=== PATIENT | male | born 1970 | race Caucasian/White ===

== ENCOUNTER 2019-08-19 10:57 | Outpatient (CLI) | payer OTHER, SELFPAY ==
--- NOTE | ~2019-08-19 | MR_ITS ---
EXAMINATION: MR cervical spine wo con EXAM DATE: 08/19/2019 12:19 INDICATION: Left arm pain, numbness, symptoms 3-4 months. Prostate cancer diagnosed 2019. Cervical pa in. TECHNIQUE: Multi-sequential, multiplanar MR images of the cervical spine were obtained without contra st. Axial T2, axial T2 MERGE sequence. Sagittal T1, T2, T2 fat saturation images also obtained. Com parison is made to prior examination from 03/31/2017. FINDINGS: There is moderate loss of the C3-4 disc height with 2-3 mm retrolisthesis, mild to moderat e disc disease C4-5 with 2 mm retrolisthesis. Otherwise mild cervical disc disease. The spinal cord s ignal intensity and intrinsic morphology is normal. Cervicomedullary junction is normal in appearance . There are no suspicious marrow signal abnormalities. Paraspinal soft tissue is unremarkable. Level by level evaluation: C2-C3: Disc does not extend beyond the endplate margin. Uncovertebral joint arthropathy: Mild bilateral. Facet joint arthropathy: Mild bilateral. Neural foraminal stenosis: Mild right. Central canal stenosis: No stenosis. C3-C4: There is a mild diffuse disc bulge. Uncovertebral joint arthropathy: Moderate right, mild to moderate left. Facet joint arthropathy: Moderate right, mild to moderate left. Neural foraminal stenosis: Moderate right, mild left. Central canal stenosis: Mild. C4-C5: There is a mild diffuse disc bulge. Uncovertebral joint arthropathy: Mild to moderate bilateral. Facet joint arthropathy: Mild to moderate bilateral. Neural foraminal stenosis: Moderate left, mild to moderate right. Central canal stenosis: Mild. C5-C6: There is a minimal diffuse disc bulge. Uncovertebral joint arthropathy: Mild bilateral. Facet joint arthropathy: Mild to moderate bilateral. Neural foraminal stenosis: Moderate left, mild to moderate right. Central canal stenosis: Minimal. C6-C7: There is a mild diffuse disc bulge. Uncovertebral joint arthropathy: Mild to moderate bilateral. Facet joint arthropathy: Mild to moderate bilateral. Neural foraminal stenosis: Mild to moderate bilateral. Central canal stenosis: Mild. C7-T1: Disc does not extend beyond the endplate margin. Uncovertebral joint arthropathy: Mild bilateral. Facet joint arthropathy: Mild bilateral. Neural foraminal stenosis: No stenosis. Central canal stenosis: No stenosis. IMPRESSION: 1. Mid cervical predominant spondylosis as detailed above. Reviewed, dictated and finalized at location A. [employer] REPA[employer]
== END 2019-08-19 10:58 | disposition home or self-care (01) ==
LOC: ANHIMG 11:03
PROVIDERS: Visit Provider Physician Assistant Surgical
DX: M47.892 Other spondylosis, cervical region (principal)
CPT/HCPCS: 72141

== ENCOUNTER 2019-11-09 15:43 | Emergency (ER) | payer OTHER, SELFPAY ==
--- NOTE | ~2019-11-09 | XR_ITS ---
EXAMINATION: XR ribs LT 2V w CXR 2V EXAM DATE: 11/09/2019 16:57 INDICATION: Initial encounter following injury, with pain of the left ribs. TECHNIQUE: Frontal projection of the upper left ribs, frontal projection of the lower left ribs, obli que projection of the left ribs, frontal and lateral chest x-ray(s) for interpretation. Correlation i s made to chest x-ray 09/05/2016. FINDINGS: There is acute appearing closed posttraumatic nondisplaced left 8th rib fracture identified anterolaterally. There is no soft tissue abnormality seen. No confluent consolidation, pneumothorax or pleural effusion suspected. There are cholecystectomy clips. Chronic mild to moderate lower thorac ic compression fractures. IMPRESSION: Acute left 8th rib fracture. Reviewed, dictated and finalized at location A.
[2019-11-09 16:05] VITALS: BP 147/104; PULSE 104; RESP 16; TEMP 36.8; O2SAT 100
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
== END 2019-11-09 17:20 | disposition home or self-care (01) ==
PROVIDERS: Emergency Provider Nurse Practitioner; PCP Emergency Medicine
DX: S22.32XA Fracture of one rib, left side, initial encounter for closed fracture (principal); I10 Essential (primary) hypertension; M19.90 Unspecified osteoarthritis, unspecified site; K21.9 Gastro-esophageal reflux disease without esophagitis; F17.200 Nicotine dependence, unspecified, uncomplicated; X58.XXXA Exposure to other specified factors, initial encounter
CPT/HCPCS: 71046; 71100; 99213; G0463

== ENCOUNTER 2019-11-18 16:24 | Emergency (ER) | payer OTHER, SELFPAY ==
[2019-11-18 16:38] VITALS: BP 158/100; PULSE 85; RESP 18; TEMP 37.1; O2SAT 100
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
== END 2019-11-18 17:00 | disposition home or self-care (01) ==
PROVIDERS: Emergency Provider Nurse Practitioner
DX: S22.32XA Fracture of one rib, left side, initial encounter for closed fracture (principal); I10 Essential (primary) hypertension; K21.9 Gastro-esophageal reflux disease without esophagitis; F17.290 Nicotine dependence, other tobacco product, uncomplicated; W51.XXXA Accidental striking against or bumped into by another person, initial encounter
CPT/HCPCS: 99212; G0463

== ENCOUNTER 2020-01-19 09:16 | Emergency (ER) | payer OTHER, SELFPAY ==
--- NOTE | 2020-01-19 09:24 | ED.GENADULT ---
HPI - General Adult General Chief complaint: Abdominal Pain Stated complaint: abd pain Time Seen by Provider: 01/19/20 09:37 Source: patient Mode of arrival: ambulatory Limitations: no limitations History of Present Illness HPI narrative: 50-year-old male patient presents to the [facility] with complaints of nausea vomiting diarrhea for the past 5 days. Patient states his symptoms started on Thursday with a little bit of diarrhea and then he developed a fever of 100.2 on Thursday. Patient states that the fever went away on Thursday and has not had any fever since then. Patient states he continues to have nausea, vomiting or diarrhea but denies any abdominal pain. 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 Patient states that he last vomited last night and has not eaten anything today but continues to have diarrhea. Denies any blood or black tarry stools to the diarrhea. Patient states he has had a gallbladder and appendix both removed. Related Data Allergies Allergy/AdvReac Type Severity Reaction Status Date / Time No Known Allergies Allergy Verified 01/19/20 09:37 Review of Systems Review of Systems: Narrative: CONSTITUTIONAL: Denies fever, chills, or sweats. EYES: Denies visual changes, redness, or discharge. ENT: Denies rhinorrhea, congestion, sore throat, or otalgia. CARDIOVASCULAR: Denies chest pain, palpitations, or edema. RESPIRATORY: Denies cough or dyspnea. GASTROINTESTINAL: Denies abdominal pain, positive nausea, vomiting, and diarrhea. GENITOURINARY: Denies dysuria or hematuria. SKIN: Denies rash or itching. MUSCULOSKELETAL: Denies back pain, joint pain, or myalgia. NEUROLOGIC: Denies headache, numbness, or weakness. PSYCHIATRIC: Denies anxiety or depression. [facility] Past Medical History Medical History Acid reflux Arthritis HTN (hypertension) Surgical History Surgical History History of appendectomy Hx of cholecystectomy Family History Family History Mother Family history of malignant neoplasm of breast in first degree relative Other Family history of malignant neoplasm Social History Social History Smoking status: Current every day smoker Second hand tobacco smoke exposure: Yes Alcohol intake: current Gender identity (if verbalized by the patient): Male Comments At the time of my signature I agree with nursing past medical history, surgical, social, and family history. There is no relevant family history pertinent to the presenting complaint. Exam Narrative: Exam Narrative: GENERAL: Well-appearing, well-nourished, and in no acute distress. HEAD: Normocephalic, atraumatic. EYES: PERRLA and EOMI. ENT: Nares clear, no rhinorrhea or epistaxis. Mucous membranes moist. NECK: Supple. No lymphadenopathy CHEST: Clear to auscultation. No respiratory distress. HEART: Regular rate and rhythm. No murmur heard. Normal peripheral pulses. ABDOMEN: Soft, flat, nondistended. No guarding, rebound tenderness, or rigid. No pulsatilla masses. Hyperactive bowel sounds present in all four quadrants. No organomegaly. Negative Aguilera?s sign. No periumbicial tenderness. No Supra public tenderness or distension. Good femoral pulses bilaterally. No hernia noted. No scars or surface trauma. EXTREMITIES: Normal range of motion. No edema. SKIN: Warm, dry, no rash. NEURO: No focal deficits. Alert and oriented x3. Course Vital Signs Vital signs: Vital Signs Temperature 36.9 C 01/19/20 09:27 Pulse Rate 92 01/19/20 09:27 Respiratory Rate 16 01/19/20 09:27 Blood Pressure 148/88 H 01/19/20 09:27 Pulse Oximetry 100 01/19/20 09:27 Temperature 36.9 C 01/19/20 09:27 Pulse Rate
[2020-01-19 09:27] VITALS: BP 148/88; PULSE 92; RESP 16; TEMP 36.9; O2SAT 100
--- NOTE | 2020-01-20 12:30 | PC.NURSE ---
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 said employer would not allow work note without having specific information in regard to covid guideline. regional business development manager was contacted at [facility] and stated to follow work note as written, no changes would be made at this time, if any questions to f/u with pmd. was given print out of [facility] hotline number to either call himself or to give employer.
== END 2020-01-19 09:51 | disposition home or self-care (01) ==
PROVIDERS: Emergency Provider Nurse Practitioner Family
DX: K52.9 Noninfective gastroenteritis and colitis, unspecified (principal); K21.9 Gastro-esophageal reflux disease without esophagitis; M19.90 Unspecified osteoarthritis, unspecified site; I10 Essential (primary) hypertension
CPT/HCPCS: 99213; G0463

== ENCOUNTER 2020-02-17 08:32 | Emergency (ER) | payer OTHER, SELFPAY ==
[2020-02-17] VITALS (14 sets, daily range): BP systolic 121–165; BP diastolic 92–109; PULSE 100; RESP 18; TEMP 36.7; O2SAT 97–100
--- NOTE | ~2020-02-17 | CT_ITS ---
EXAMINATION: CT abdomen pelvis w con DATE: 02/17/2020 11:04 INDICATION: Left lower quadrant abdominal pain. TECHNIQUE: Computed tomography (CT) of the abdomen and pelvis was performed with 100 mL Omnipaque 350 intravenous contrast. Automated exposure control and iterative reconstruction technique were employe d. The dose-length product was 568.64 mGy-cm. COMPARISON: CT abdomen and pelvis 03/07/2019 FINDINGS: The visualized portions of the lung bases demonstrate a calcified left lung nodules, consis tent with old granulomatous disease. No pleural effusion. The heart size is normal. There are coronar y artery calcifications. No pericardial effusion. The liver demonstrates surface nodularity, consiste nt with cirrhosis. There are changes of cholecystectomy. The spleen is normal in size. The pancreas, adrenal glands, and kidneys are normal. There are changes of appendectomy. There is wall thickening o f the ascending and proximal transverse colon. There is diverticulosis of the colon without evidence of diverticulitis. There is a small volume of ascites. There are no pathologically enlarged lymph nod es. There is mild lumbar spondylosis. There are chronic compression fractures of T10, T11, and T12. T here is moderate lumbar spondylosis. IMPRESSION: 1. Wall thickening of the ascending and proximal transverse colon, most likely interstitial edema. Co litis is less likely. 2. Cirrhosis of the liver. 3. Small volume of ascites. Reviewed, dictated and finalized at location A. IMPRESSION: 1. Wall thickening of the ascending and proximal transverse colon, most likely interstitial edema. Colitis is less likely. 2. Cirrhosis of the liver. 3. Small volume of ascites.
[2020-02-17 09:17] LABS: Alanine Aminotransferase 45 U/L (4-50); Albumin Level 3.7 g/dL (3.5-5.1); Alkaline Phosphatase 604 U/L (38-126); Anion Gap 7 mmol/L (8-16); Aspartate Amino Transferase 200 U/L (17-59); Bilirubin,Total 3.9 mg/dL (0.2-1.3); Blood Urea Nitrogen 13 mg/dL (9-20); Calcium 7.9 mg/dL (8.4-10.2); Carbon Dioxide 27 mmol/L (22-30); Chloride 98 mmol/L (98-107); Estimated CRCL calculation 92 ml/min; Estimated Glomerular Filt Rate > 60; Glucose 166 mg/dL (75-110); Lipase 122 U/L (23-300); Potassium 4.6 mmol/L (3.4-5.0); Sodium 132 mmol/L (137-145)
[2020-02-17 09:21] LABS: Add Urine Microscopic? YES; Appearance Urine Clear (Clear); Bilirubin Urine Negative (Negative); Blood Urine Negative (Negative); Calcium Oxalate Crystals Urine Present /hpf; Color Urine Yellow (Yellow); Glucose Urine UA 3+ mg/dL (Negative); Ketones Urine Negative (Negative); Leukocyte Esterase Ur Negative LEU/UL (Negative); Nitrate Urine Negative (Negative); Protein Urine Negative (Negative); RBC Urine 0-2 /hpf (0-2); Specific Grav Ur 1.014 (1.001-1.035); Urobilinogen Urine Negative mg/dL (<2.0); WBC Urine 0-3 /hpf
[2020-02-17 09:23] LABS: Basophils Percent Auto 0.5 % (0.2-1.2); Eosinophils Percent Auto 0.2 % (0-4.4); Hematocrit 44.5 % (42.0-52.0); Hemoglobin 15.7 g/dL (14.0-18.0); Immature Granulocyte Absolute 0.02 K/mm3 (0.00-0.031); Immature Granulocyte Percent A 0.5 % (0-0.5); Immature Platelet Fraction Pct 11.7 % (0.9-11.2); Lymphocytes Absolute Auto 1.06 K/mm3 (0.9-3.2); Lymphocytes Percent Auto 23.9 % (18.3-44.2); Mean Corpuscular HGB Conc 35.3 g/dl (32-36); Mean Corpuscular Hemoglobin 33.5 pg (26-34); Mean Corpuscular Volume 95.1 fl (80-100); Mean Platelet Volume 11.7 fl (7.4-10.4); Monocytes Absolute Auto 0.5 K/mm3 (0.1-0.6); Monocytes Percent Auto 10.4 % (2.6-8.5); Neutrophils Absolute Auto 2.9 K/mm3 (1.3-6.7); Neutrophils Percent Auto 64.5 % (45.5-73.1); Platelet Count Result 97 k/mm3 (150-375); Red Blood Count 4.68 M/mm3 (4.6-6.20); Red Cell Distribution Width 15.8 % (11.5-14.5); White Blood Count 4.4 K/mm3 (4.5-10.0)
--- NOTE | 2020-02-17 10:11 | PC.NURSE ---
Pt updated on delay of physician to evaluate, made aware of critical patient in the department.
--- NOTE | 2020-02-17 10:12 | PC.NURSE ---
Called to room, pt requesting something for pain and wondering how much longer it is going to be. Explained that a protocol has been initiated and that someone will be in [place].
[2020-02-17] MEDS: MORPHINE SULFATE 4 MG/ML INJ IV PUSH (10:47)
[2020-02-17] MEDS: SODIUM CHLORIDE 0.9% IV 1,000 ML 999 ML (10:48)
--- NOTE | 2020-02-17 11:53 | ED.ABDPAIN ---
HPI - Abdominal Pain General Chief Complaint: Abdominal Pain Stated Complaint: abd pain, rectal pain Time Seen by Provider: 02/17/20 09:56 History of Present Illness HPI narrative: Patient is a 50-year-old male who presents the ER with lower abdominal pain. Ongoing for 2 days. Cramping associated with diarrhea. Radiates into his left inguinal region and testicle. No testicular tenderness or swelling. Denies fevers or chills or sweats. Mild nausea but no vomiting. Related Data Home Medications Medication Instructions Recorded Confirmed omeprazole 02/17/20 Allergies Allergy/AdvReac Type Severity Reaction Status Date / Time No Known Allergies Allergy Verified 02/17/20 08:46 Review of Systems Review of Systems: All systems reviewed & are unremarkable except as noted in HPI and below Constitutional: Constitutional: Denies chills, Denies fever(s) and Denies weakness Cardiovascular: Cardiovascular: Denies chest pain Respiratory: Respiratory: Denies cough and Denies dyspnea Gastrointestinal: Gastrointestinal: Reports abdominal pain, Denies bloating, Reports diarrhea, Reports nausea and Denies vomiting Genitourinary: Genitourinary: Denies hematuria, Denies dysuria and Denies urinary frequency PMFSH Social History Social History Smoking status: Current every day smoker Second hand tobacco smoke exposure: Yes Alcohol intake: current Gender identity (if verbalized by the patient): Male Exam Narrative: Exam Narrative: GENERAL: Well-appearing, well-nourished, and in no acute distress. HEAD: Normocephalic, atraumatic. ENT: Mucous membranes moist. CHEST: Clear to auscultation. No respiratory distress. HEART: Regular rate and rhythm. Normal peripheral pulses. ABDOMEN: Soft, mild tenderness in left lower quadrant and in the left inguinal crease without palpable mass, nondistended, normal active bowel sounds. EXTREMITIES: Normal range of motion. No edema. SKIN: Warm, dry, no rash. NEURO: Alert and oriented x3. Course Course Emergency Course: Informed of results. Pain improved with Bentyl and morphine. Vital Signs Vital signs: Vital Signs Temperature 98.1 F 02/17/20 08:41 Pulse Rate 100 02/17/20 08:41 Respiratory Rate 18 02/17/20 08:41 Blood Pressure 164/109 H 02/17/20 08:41 Pulse Oximetry 99 09/04/20 08:41 Temperature 98.1 F 02/17/20 08:41 Pulse Rate 100 02/17/20 08:41 Respiratory Rate 18 02/17/20 08:41 Blood Pressure 145/92 H 02/17/20 11:31 Pulse Oximetry 97 02/17/20 11:31 MDM - Abdominal Pain Lab Data Result diagrams: 02/17/20 08:52 02/17/20 08:52 Labs: Lab Results 02/17/20 02/17/20 02/17/20 Range/Units 08:52 08:52 09:09 WBC 4.4 L (4.5-10.0) K/mm3 RBC 4.68 (4.6-6.20) M/mm3 Hgb 15.7 (14.0-18.0) g/dL Hct 44.5 (42.0-52.0) % MCV 95.1 (80-100) fl MCH 33.5 (26-34) pg MCHC 35.3 (32-36) g/dl RDW 15.8 H (11.5-14.5) % Plt Count 97 L (150-375) k/mm3 MPV 11.7 H (7.4-10.4) fl Immature Gran % (Auto) 0.5 (0-0.5) % Neut % (Auto) 64.5 (45.5-73.1) % Lymph % (Auto) 23.9 (18.3-44.2) % [facility] % (Auto) 10.4 H (2.6-8.5) % Eos % (Auto) 0.2 (0-4.4) % Baso % (Auto) 0.5 (0.2-1.2) % Lymph # (Auto) 1.06 (0.9-3.2) K/mm3 [facility] # (Auto) 0.5 (0.1-0.6) K/mm3 Eos # (Auto) 0.0 (0-0.3) K/mm3 Baso # (Auto) 0.0 (0.0-0.1) K/mm3 Abs Immat Gran (auto) 0.02 (0.00-0.031) K/mm3 Absolute Neuts (auto) 2.9 (1.3-6.7) K/mm3 Absolute Nucleated RBC 0.0 (0.0-0.012) K/mm3 Nucleated RBC % 0.0 (0.0-0.2) % % Immature Plt Fraction 11.7 H (0.9-11.2) % Sodium 132 L (137-145) mmol/L Potassium 4.6 (3.4-5.0) mmol/L Chloride 98 (98-107) mmol/L Carbon Dioxide 27 (22-30) mmol/L Anion Gap 7 L (8-16) mmol/L BUN 13 (9-20) mg/dL Creatinine 0.70 (0.7-1.3) mg/dL Estim Creat
[2020-02-17] MEDS: DICYCLOMINE HCL INJ 20 MG/2 ML VIAL IM (13:06)
== END 2020-02-17 13:47 | disposition home or self-care (01) ==
PROVIDERS: Emergency Provider Emergency Medicine
DX: R10.32 Left lower quadrant pain (principal); K74.60 Unspecified cirrhosis of liver; R93.3 Abnormal findings on diagnostic imaging of other parts of digestive tract; R18.8 Other ascites
CPT/HCPCS: 36415; 74177; 80053; 81001; 83690; 85025; 85055; 96361; 96372; 96374; 99284; J0500; J2270; J7030; Q9967

== ENCOUNTER 2020-02-23 08:32 | Emergency (ER) | payer OTHER, SELFPAY ==
--- NOTE | ~2020-02-23 | CT_ITS ---
EXAMINATION: CT abdomen pelvis w con DATE: 02/23/2020 10:26 INDICATION: Recurrent mid to low abdominal pain, diarrhea, nausea, vomiting TECHNIQUE: Computed tomography (CT) of the abdomen and pelvis was performed with 100 cc Omnipaque 350 intravenous contrast. Automated exposure control and iterative reconstruction technique were employe d. Exam dose: 445.74 mGy-cm total exam DLP. COMPARISON: 02/17/2020 CT abdomen pelvis FINDINGS: Normal heart size. Coronary artery calcification. No pericardial or pleural effusion. The l jaclyn bases are clear. There is hepatic steatosis. No hepatic space-occupying mass lesion is evident. Status post cholecyste ctomy. No bile duct dilatation. No pancreatic mass lesion, calcification or ductal dilatation. Spleni c size is within normal limits, the spleen measuring up to 12 cm length. Normal morphology of the adrenal glands. No renal mass lesion or urinary tract calculus or hydroureteronephrosis. The urinary bladder is unrem arkable. Prostate enlargement and calcification. Normal caliber of the abdominal aorta. No intraperitoneal or retroperitoneal or pelvic mass lesion or adenopathy. There is mild ascites. There is thickening of the wall of portions of the colon, including ascending colon, hepatic flexure, transverse colon, as well as associated mild pericolic fat stranding and some of these areas. Coliti s is suggested, likely infectious or inflammatory. There is no evidence of significant arterial steno sis of the celiac or superior mesenteric or inferior mesenteric arteries to suggest ischemic colitis. No bowel obstruction, pneumatosis or intraperitoneal free air. Small fat-containing umbilical hernia. There are compression fracture deformities of T10, T11, T12. IMPRESSION: There is thickening of the wall portions of the colon and pericolic stranding, suggestin g colitis, likely infectious or inflammatory Hepatic steatosis Mild ascites Status post cholecystectomy Compression fracture deformities of T10-T12 Reviewed, dictated and finalized at [facility]. Reviewed, dictated and finalized at [facility]. IMPRESSION: There is thickening of the wall portions of the colon and pericoli c stranding, suggesting colitis, likely infectious or inflammatory Hepatic steatosis Mild ascites Status post cholecystectomy Compression fracture deformities of T10-T12
[2020-02-23 08:43] VITALS: BP 158/102; PULSE 100; RESP 16; TEMP 37.2; O2SAT 99
--- NOTE | 2020-02-23 08:44 | ED.ABDPAIN ---
HPI - Abdominal Pain General Chief Complaint: Abdominal Pain Stated Complaint: abd pain Time Seen by Provider: 02/23/20 08:44 Source: patient Mode of arrival: ambulatory Limitations: no limitations History of Present Illness HPI narrative: Patient is a 50-year-old male who presents for evaluation of recurrent abdominal pain and diarrhea. Patient reports he was seen in this emergency department approximately week ago but pain has really not improved. It is been intermittent in nature, sharp, stabbing in nature. Located in the center of his abdomen and lower abdomen. Patient reports nausea with 2 episodes of emesis. He reports recurrent, watery diarrhea without blood or mucus. Patient has been taken Tylenol without much improvement in his symptoms. No fever. No rhinorrhea, cough, loss of sense of taste or smell. No recent sick contacts. No known history of irritable bowel disease, Crohn's disease in the family. Patient does not follow closely with a primary care physician. He denies any marijuana use or drug use. Related Data Home Medications Medication Instructions Recorded Confirmed omeprazole DAILY 02/17/20 Allergies Allergy/AdvReac Type Severity Reaction Status Date / Time No Known Allergies Allergy Verified 02/23/20 08:50 Review of Systems Review of Systems: Narrative: CONSTITUTIONAL: Denies fever, chills, or sweats. ENT: Denies rhinorrhea, congestion, sore throat, or otalgia. CARDIOVASCULAR: Denies chest pain, palpitations, or edema. RESPIRATORY: Denies cough or dyspnea. GASTROINTESTINAL: Reports abdominal pain, nausea, vomiting and diarrhea GENITOURINARY: Denies dysuria or hematuria. SKIN: Denies rash or itching. MUSCULOSKELETAL: Denies back pain, joint pain, or myalgia. NEUROLOGIC: Denies headache, numbness PMFSH Past Medical History Medical History Acid reflux Arthritis HTN (hypertension) Surgical History Surgical History History of appendectomy Hx of cholecystectomy Social History Social History Smoking status: Current every day smoker Second hand tobacco smoke exposure: Yes Alcohol intake: current Gender identity (if verbalized by the patient): Male Exam Narrative: Exam Narrative: GENERAL: Awake, alert, conversant HEAD: Normocephalic, atraumatic. EYES: PERRLA and EOMI. ENT: Nares clear, no rhinorrhea or epistaxis. Mucous membranes moist. NECK: Supple. CHEST: No respiratory distress, breathing even and non labored HEART: Regular rate, sinus rhythm ABDOMEN:Non distended, tender to palpation in the umbilical area and right lower abdomen, nonrigid, no guarding EXTREMITIES: Normal range of motion. No edema. SKIN: Warm, dry, no rash. NEURO:No focal deficits. Alert and oriented x3 Course Vital Signs Vital signs: Vital Signs Temperature 37.2 C 02/23/20 08:43 Pulse Rate 100 02/23/20 08:43 Respiratory Rate 16 02/23/20 08:43 Blood Pressure 158/102 H 02/23/20 08:43 Pulse Oximetry 99 02/23/20 08:43 Temperature 37.2 C 02/23/20 08:43 Pulse Rate 100 02/23/20 08:43 Respiratory Rate 16 02/23/20 08:43 Blood Pressure 158/102 H 02/23/20 08:43 Pulse Oximetry 99 02/23/20 08:43 MDM - Abdominal Pain MDM Narrative Medical decision making narrative: Patient presenting for continued abdominal pain. At the time of initial assessment, ABCs are intact and vital signs are stable. Patient is having diarrhea, no recent antibiotic treatment per chart review. Laboratory results are at baseline. Due to the patient's history of cirrhosis, he is mildly thrombocytopenic. His electrolytes are all within normal limits. He is tolerating oral intake. Will trial patient on Cipro and Flagyl with pain medication given the recurrent abdominal pain and diarrhea. Pt able to tolerate oral intake in the ER. He is ambu
[2020-02-23 09:33] LABS: Basophils Percent Auto 0.6 % (0.2-1.2); Eosinophils Percent Auto 0.3 % (0-4.4); Hematocrit 42.4 % (42.0-52.0); Hemoglobin 14.6 g/dL (14.0-18.0); Immature Granulocyte Absolute 0.01 K/mm3 (0.00-0.031); Immature Granulocyte Percent A 0.3 % (0-0.5); Immature Platelet Fraction Pct 9.4 % (0.9-11.2); Lymphocytes Absolute Auto 0.77 K/mm3 (0.9-3.2); Lymphocytes Percent Auto 21.3 % (18.3-44.2); Mean Corpuscular HGB Conc 34.4 g/dl (32-36); Mean Corpuscular Hemoglobin 32.7 pg (26-34); Mean Corpuscular Volume 94.9 fl (80-100); Mean Platelet Volume 11.3 fl (7.4-10.4); Monocytes Absolute Auto 0.4 K/mm3 (0.1-0.6); Monocytes Percent Auto 10.8 % (2.6-8.5); Neutrophils Absolute Auto 2.4 K/mm3 (1.3-6.7); Neutrophils Percent Auto 66.7 % (45.5-73.1); Platelet Count Result 103 k/mm3 (150-375); Red Blood Count 4.47 M/mm3 (4.6-6.20); Red Cell Distribution Width 15.6 % (11.5-14.5); White Blood Count 3.6 K/mm3 (4.5-10.0)
[2020-02-23] MEDS: ONDANSETRON INJ 4 MG/2 ML VIAL IV PUSH (09:34)
[2020-02-23] MEDS: SODIUM CHLORIDE 0.9% IV 1,000 ML 999 ML IV CONT (09:35)
[2020-02-23 09:36] LABS: Add Urine Microscopic? YES; Appearance Urine Clear (Clear); Bacteria Urine Trace /hpf; Bilirubin Urine Negative (Negative); Blood Urine Negative (Negative); Color Urine Yellow (Yellow); Glucose Urine UA 2+ mg/dL (Negative); Ketones Urine Negative (Negative); Leukocyte Esterase Ur Negative LEU/UL (Negative); Mucus Urine Rare /lpf; Nitrate Urine Negative (Negative); Protein Urine Negative (Negative); RBC Urine 0-2 /hpf (0-2); Specific Grav Ur 1.017 (1.001-1.035); Squamous Epithelial Cell Urine Rare /hpf (Few); Urobilinogen Urine Negative mg/dL (<2.0); WBC Urine 0-3 /hpf
[2020-02-23 09:45] LABS: Alanine Aminotransferase 36 U/L (4-50); Albumin Level 3.3 g/dL (3.5-5.1); Alkaline Phosphatase 612 U/L (38-126); Anion Gap 7 mmol/L (8-16); Aspartate Amino Transferase 149 U/L (17-59); Bilirubin,Total 4.7 mg/dL (0.2-1.3); Blood Urea Nitrogen 16 mg/dL (9-20); Calcium 8.3 mg/dL (8.4-10.2); Carbon Dioxide 25 mmol/L (22-30); Chloride 100 mmol/L (98-107); Estimated CRCL calculation 96 ml/min; Estimated Glomerular Filt Rate > 60; Glucose 153 mg/dL (75-110); Lipase 140 U/L (23-300); Potassium 4.3 mmol/L (3.4-5.0); Sodium 132 mmol/L (137-145)
[2020-02-23] MEDS: FAMOTIDINE 20 MG/2 ML VIAL IV PUSH (10:42)
[2020-02-23] MEDS: DICYCLOMINE HCL INJ 20 MG/2 ML VIAL IM (10:42)
[2020-02-23] MEDS: diphenhydrAMINE HCl INJ 50 MG/ML VIAL 25 MG IV PUSH (10:42)
[2020-02-23] MEDS: oxyCODONE/ACETAMINOPHEN 5-325 MG TABLET 1 TABLET PO (11:53)
[2020-02-23 11:54] VITALS: BP 154/100; PULSE 98; RESP 16; O2SAT 98
[2020-02-23 12:55] VITALS: BP 141/93; PULSE 86; RESP 16; O2SAT 97
== END 2020-02-23 13:01 | disposition home or self-care (01) ==
PROVIDERS: Emergency Provider Emergency Medicine
DX: M19.90 Unspecified osteoarthritis, unspecified site (principal); K21.9 Gastro-esophageal reflux disease without esophagitis; I10 Essential (primary) hypertension; K52.9 Noninfective gastroenteritis and colitis, unspecified; K76.0 Fatty (change of) liver, not elsewhere classified; R18.8 Other ascites; F17.200 Nicotine dependence, unspecified, uncomplicated
CPT/HCPCS: 36415; 74177; 80053; 81001; 83690; 85025; 85055; 96365; 96366; 96372; 96375; 99284; A9270; J0500; J1200; J2405; J3411; J3475; J7030; Q9967

== ENCOUNTER 2020-03-01 13:55 | Outpatient (CLI) | payer OTHER, SELFPAY ==
[2020-03-01 12:35] LABS: CRP < 0.5 mg/dL (<1.0)
[2020-03-01 12:39] LABS: Immunoglobulin G 961 mg/dL (700-1600); Immunoglobulin M 152 mg/dL (40-230)
[2020-03-01 12:53] LABS: Iron 144 ug/dL (49-181)
[2020-03-01 13:02] LABS: Percent Iron Saturation 113 % (20-50)
[2020-03-01 13:18] LABS: Erythrocyte Sedimentation Rate 22 mm/hr (0-20)
[2020-03-01 13:25] LABS: Hepatitis B Surface Antigen Negative (Negative)
[2020-03-01 13:30] LABS: HAV RESULT Negative (Negative); Hepatitis B Core IgM Result Negative (Negative)
[2020-03-01 13:42] LABS: Hepatitis C Virus Antibody Negative (Negative)
[2020-03-01 15:18] LABS: Ferritin > 2000.00 ng/mL (17.9-464)
[2020-03-03 14:20] LABS: CMV DNA Quant PCR IU/mL <200 IU/mL (<200); Cytomegalovirus DNA Quant PCR <2.30 log IU/mL (<2.30); Cytomegalovirus DNA Source Serum
[2020-03-05 09:50] LABS: Tissue Transglutaminase IgG Ab 2 U/mL (<6)
[2020-03-06 10:43] LABS: Tissue Transglutaminase IgA Ab 1 U/mL (<4)
[2020-03-06 12:49] LABS: Ceruloplasmin <2 mg/dL (18-36)
[2020-03-06 20:52] LABS: ANA Pattern Nuclear, Speckled; Anti Nuclear Antibody Pattern Nuclear, Nucleolar; Anti Nuclear Antibody Titer >=1:1280 (Negative)
[2020-03-06 22:06] LABS: Mitochondrial (M2) Ab (IgG) <=20.0 U (<=20.0)
== END 2020-03-01 13:56 | disposition home or self-care (01) ==
LOC: ANHLAB 13:56
PROVIDERS: PCP Internal Medicine Gastroenterology; Visit Provider Internal Medicine Gastroenterology
DX: K74.60 Unspecified cirrhosis of liver (principal); K52.9 Noninfective gastroenteritis and colitis, unspecified; R19.7 Diarrhea, unspecified
CPT/HCPCS: 36415; 80074; 82104; 82390; 82728; 82784; 83516; 83520; 83540; 83550; 85652; 86038; 86039; 86140; 87045; 87046; 87177; 87209; 87324; 87425; 87427; 87497; 89055

== ENCOUNTER 2020-03-05 13:57 | Outpatient (CLI) | payer OTHER, SELFPAY | END 2020-03-05 13:58 | disposition home or self-care (01) | LOC: ANHLAB 13:59 | PROVIDERS: PCP Internal Medicine Gastroenterology; Visit Provider Internal Medicine Gastroenterology | DX: R74.8 Abnormal levels of other serum enzymes (principal); R79.89 Other specified abnormal findings of blood chemistry | CPT/HCPCS: 36415; 81256 ==

== ENCOUNTER 2020-03-08 13:51 | Outpatient (CLI) | payer OTHER, SELFPAY ==
[2020-03-13 18:11] LABS: Rotavirus Stool Not Detected
== END 2020-03-08 13:52 | disposition home or self-care (01) ==
PROVIDERS: PCP Internal Medicine Gastroenterology; Visit Provider Internal Medicine Gastroenterology
DX: R19.7 Diarrhea, unspecified (principal); R52 Pain, unspecified; K74.60 Unspecified cirrhosis of liver
CPT/HCPCS: 87425

== ENCOUNTER 2020-03-12 09:15 | Outpatient (CLI) | payer OTHER, SELFPAY | END 2020-03-12 09:16 | disposition home or self-care (01) | PROVIDERS: PCP Internal Medicine Gastroenterology; Visit Provider Internal Medicine Gastroenterology | DX: K74.69 Other cirrhosis of liver (principal) | CPT/HCPCS: 36415; 82525 ==

== ENCOUNTER 2020-03-30 02:17 | Outpatient (CLI) | payer OTHER, SELFPAY ==
[2020-03-30 18:25] LABS: SARS-CoV-2 RNA PCR Negative
== END 2020-03-30 02:18 | disposition home or self-care (01) ==
LOC: ANHCOVIDDT 02:18
PROVIDERS: PCP Emergency Medicine; Visit Provider Internal Medicine Gastroenterology
DX: Z01.812 Encounter for preprocedural laboratory examination (principal); Z20.828 Contact with and (suspected) exposure to other viral communicable diseases
CPT/HCPCS: 87635; C9803; U0003

== ENCOUNTER 2020-04-02 02:31 | Day surgery (SDC) | payer OTHER, SELFPAY ==
[2020-03-28 15:34] VITALS: BMI 24.5
--- NOTE | 2020-04-02 12:09 | WPDANESEPP ---
Anes - Eval Pre Procedure Procedure: Operation Date: 04/02/20 13:30 Proposed Procedures p Esophagogastroduodenoscopy & Colonoscopy - Shon Duran MD Date/Time: 04/02/20 12:09 Pre Op Diagnosis: Cirrhosis, Colitis Patient Data Age: 50 Gender: M Height: 5 ft 4 in Weight: 65 kg Allergies Allergy/AdvReac Type Severity Reaction Status Date / Time No Known Allergies Allergy Verified 03/28/20 15:29 Home Medications Medication Instructions Recorded Confirmed Type omeprazole 10 mg PO DAILY 02/17/20 03/28/20 History ciprofloxacin HCl 500 mg PO Q12H 7 Days #14 tablet 02/23/20 03/28/20 Rx metronidazole [Flagyl] 500 mg PO Q12H 7 Days #14 tablet 02/23/20 03/28/20 Rx cholestyramine (with sugar) 4 gram 4 gm PO BID #378 gm 03/01/20 03/28/20 Rx oral powder dicyclomine 20 mg tablet 20 mg PO QID #90 tablet 03/01/20 03/28/20 Rx furosemide 20 mg tablet 20 mg PO QAM #30 tablet 03/12/20 03/28/20 Rx spironolactone 25 mg tablet 25 mg PO DAILY #30 tablet 03/12/20 03/28/20 Rx hydrocodone 10 mg-acetaminophen 1 tablet PO BID PRN #14 tablet 03/22/20 03/28/20 Rx 300 mg tablet peg 3350-electrolytes 236 240 ml PO Q10M #4000 ml 03/28/20 Rx gram-22.74 gram-6.74 gram-5.86 gram solution Patient hx anesthesia problems: none Family hx anesthesia problems: none PMFSH Past Medical History Medical History Abdominal pain Acid reflux Arthritis Cirrhosis Diarrhea Elevated liver enzymes HTN (hypertension) Smoker Surgical History Surgical History (Updated 04/02/20 @ 12:10 by Mikel Contreras CRNA) History of appendectomy Hx of cholecystectomy S/P rotator cuff repair Family History Family History Mother Family history of malignant neoplasm of breast in first degree relative Other Family history of malignant neoplasm Social History Social History Smoking packs per day: 0.5 Smoking cigarettes per day: 10.0 Years smoked: 20 Smoking pack-years: 10.00 Smoking status: Current every day smoker Tobacco type: cigarettes Second hand tobacco smoke exposure: Yes Alcohol intake: former Drinks per week: 2 Alcohol use details: RAN Substance use: never Substance use type: does not use Living arrangements: with family Gender identity (if verbalized by the patient): Male Spiritual care concerns: No Exam Day of Procedure 04/02/20 12:09 Patient weight: normal Heart: regular rate and rhythm Lungs: clear to auscultation Airway: Mallampati scale class II Neurological: alert and oriented
[2020-04-02 12:50] VITALS: BP 164/110; PULSE 115; RESP 16; TEMP 36.8; O2SAT 99
--- NOTE | 2020-04-02 13:01 | PM.HPGS ---
History of Present Illness History of Present Illness Consent: Risks, benefits, and alternatives have been discussed and questions answered. Patient agrees to proceed with procedure. Chief complaint: Cirrhosis, Colitis Narrative: Matt Worley II is a 50 year old male with abdominal pain, diarrhea and abnormal CT scan colon. Also cirrhosis Review of Systems Constitutional: Constitutional: Denies headache(s) and Denies weakness Eyes: Eyes: Denies blurry vision ENT: Reports Normal hearing present, Denies headache(s) and Denies neck pain Cardiovascular: Cardiovascular: Denies chest pain and Denies dyspnea Respiratory: Respiratory: Denies dyspnea Gastrointestinal: Gastrointestinal: Reports no additional gastrointestinal complaints Genitourinary: Genitourinary: Denies dysuria Musculoskeletal: Musculoskeletal: Denies neck pain Integumentary/Breasts: Skin/Breast: Denies dry skin Neurologic: Reports Normal hearing present, Denies headache(s) and Denies weakness Psychiatric: Psychiatric: Denies anxiety Endocrine: Endocrine: Denies change in body appearance Hematologic/Lymphatic: Hematologic/Lymphatic: Denies easy bleeding Allergic/Immunologic: Allergic/Immunologic: Denies urticaria PMFSH Past Medical History Medical History Abdominal pain Acid reflux Arthritis Cirrhosis Diarrhea Elevated liver enzymes HTN (hypertension) Smoker Surgical History Surgical History (Updated 04/02/20 @ 12:10 by Mikel Contreras CRNA) History of appendectomy Hx of cholecystectomy S/P rotator cuff repair Family History Family History Mother Family history of malignant neoplasm of breast in first degree relative Other Family history of malignant neoplasm Social History Social History Smoking packs per day: 0.5 Smoking cigarettes per day: 10.0 Years smoked: 20 Smoking pack-years: 10.00 Smoking status: Current every day smoker Tobacco type: cigarettes Second hand tobacco smoke exposure: Yes Alcohol intake: former Drinks per week: 2 Alcohol use details: BEERS Substance use: never Substance use type: does not use Living arrangements: with family Gender identity (if verbalized by the patient): Male Spiritual care concerns: No Meds Home Medications and Allergies Home Medications Medication Instructions Recorded Confirmed Type omeprazole 10 mg PO DAILY 02/17/20 03/28/20 History ciprofloxacin HCl 500 mg PO Q12H 7 Days #14 tablet 02/23/20 03/28/20 Rx metronidazole [Flagyl] 500 mg PO Q12H 7 Days #14 tablet 02/23/20 03/28/20 Rx cholestyramine (with sugar) 4 gram 4 gm PO BID #378 gm 03/01/20 03/28/20 Rx oral powder dicyclomine 20 mg tablet 20 mg PO QID #90 tablet 03/01/20 03/28/20 Rx furosemide 20 mg tablet 20 mg PO QAM #30 tablet 03/12/20 03/28/20 Rx spironolactone 25 mg tablet 25 mg PO DAILY #30 tablet 03/12/20 03/28/20 Rx hydrocodone 10 mg-acetaminophen 1 tablet PO BID PRN #14 tablet 03/22/20 03/28/20 Rx 300 mg tablet peg 3350-electrolytes 236 240 ml PO Q10M #4000 ml 03/28/20 Rx gram-22.74 gram-6.74 gram-5.86 gram solution Allergies Allergy/AdvReac Type Severity Reaction Status Date / Time No Known Allergies Allergy Verified 04/02/20 12:49 Vital Signs Vital Signs - 24 hr 04/02/20 12:50 Temperature 98.2 F Pulse Rate 115 H Respiratory Rate 16 Blood Pressure 164/110 H Pulse Oximetry 99 Exam Const: General: comfortable and no acute distress HENMT: General nose exam: Normal nares present Eyes: General: appearance normal, both eyes and all related structures Neck: Neck: no JVD Resp: Auscultation: clear to auscultation bilaterally Cardio: Rate: regular rate Rhythm: regular rhythm GI: Inspection: non-distended GI Palp: Yes Soft to palpation Skin: General skin exam: normal color Neuro: General: gait normal Speech: normal s
[2020-04-02] MEDS: LACTATED RINGERS 1,000 ML 150 ML IV CONT (13:12)
[2020-04-02 13:46] VITALS: BP 115/80; PULSE 108; RESP 20; O2SAT 100
[2020-04-02 13:56] VITALS: BP 124/77; PULSE 88; RESP 22; O2SAT 100
[2020-04-02 14:06] VITALS: BP 127/83; PULSE 90; RESP 18; O2SAT 100
== END 2020-04-02 14:28 | disposition home or self-care (01) ==
PROVIDERS: Visit Provider Internal Medicine Gastroenterology
PROC: 0DJ08ZZ Inspection of Upper Intestinal Tract, Via Natural or Artificial Opening Endoscopic (ICD-10-PCS; CPT 43235; principal; 2020-04-02 13:30)
DX: R10.84 Generalized abdominal pain (principal); R19.7 Diarrhea, unspecified; D12.3 Benign neoplasm of transverse colon; K64.8 Other hemorrhoids; K21.9 Gastro-esophageal reflux disease without esophagitis; I10 Essential (primary) hypertension; K74.60 Unspecified cirrhosis of liver; F17.210 Nicotine dependence, cigarettes, uncomplicated
CPT/HCPCS: 45380; 45385; 36415; 74177; 80053; 83605; 83690; 85025; 85055; 88305; 96372; 96374; 96376; 99284; A9270; J0500; J2270; J2704; J7120; Q9967

== ENCOUNTER 2020-04-02 18:18 | Emergency (ER) | payer OTHER, SELFPAY ==
--- NOTE | ~2020-04-02 | CT_ITS ---
EXAMINATION: CT abdomen pelvis w con EXAM DATE: 04/02/2020 19:31 INDICATION: Abdominal pain s/p colonoscopy. TECHNIQUE: Spiral CT of the abdomen and pelvis was performed following intravenous injection of 100 m L Omnipaque 350. Axial, coronal and sagittal images were reviewed. The dose-length product (DLP) fo r this examination was 468.03 mGy-cm. The exposure was tailored according to patient size (auto mA e xposure control), and iterative reconstruction (ASIR) was used as additional dose reduction technique . Comparison is made to prior examination from 02/23/2020. FINDINGS: There is mild to moderate amount of ascites. Nodular liver surface consistent with cirrhosi s. The liver, spleen, adrenal glands and pancreas are otherwise unremarkable. There are cholecystec delphine clips. Portal and splenic veins are patent. Kidneys enhance symmetrically. There is no hydron ephrosis. The prostate is unremarkable. The bladder is unremarkable. There is no retroperitoneal or pelvic lymphadenopathy. There are surgical changes consistent with appendectomy. There is moderate dilation of several loop s of jejunum without focal wall thickening or pneumatosis. There is also colonic fluid without focal wall thickening. Consider enteritis. Mild colonic diverticulosis without definite diverticulitis but sensitivity is decreased from ascites. No free intraperitoneal gas. The heart is normal in size. There are no pericardial or pleural effusions. The lung bases are unremarkable. Mild to moderate an terior wedging of T11, mild anterior wedging at T10 and T12. Probably chronic. IMPRESSION: 1. Cirrhosis. Mild to moderate ascites. 2. Colonic fluid and mild to moderate jejunal dilation. Consider ileus, enteritis. No free intraper itoneal air. 3. Mild colonic diverticulosis. Reviewed, dictated and finalized at [facility]. IMPRESSION: 1. Cirrhosis. Mild to moderate ascites. 2. Colonic fluid and mild to moderate jejunal dilation. Consider ileus, enteri tis. No free intraperitoneal air. 3. Mild colonic diverticulosis.
[2020-04-02 18:18] VITALS: BP 140/104; PULSE 129; RESP 18; O2SAT 98
[2020-04-02] MEDS: MORPHINE SULFATE (*CRX) 4 MG/ML INJ IV PUSH ×2 (18:30→20:46)
[2020-04-02 18:49] LABS: Basophils Percent Auto 0.5 % (0.2-1.2); Eosinophils Percent Auto 0.7 % (0-4.4); Hematocrit 41.6 % (42.0-52.0); Hemoglobin 14.1 g/dL (14.0-18.0); Immature Granulocyte Absolute 0.01 K/mm3 (0.00-0.031); Immature Granulocyte Percent A 0.2 % (0-0.5); Immature Platelet Fraction Pct 5.9 % (0.9-11.2); Lymphocytes Absolute Auto 1.26 K/mm3 (0.9-3.2); Lymphocytes Percent Auto 22.9 % (18.3-44.2); Mean Corpuscular HGB Conc 33.9 g/dl (32-36); Mean Corpuscular Hemoglobin 34.3 pg (26-34); Mean Corpuscular Volume 101.2 fl (80-100); Mean Platelet Volume 10.5 fl (7.4-10.4); Monocytes Absolute Auto 0.5 K/mm3 (0.1-0.6); Monocytes Percent Auto 9.5 % (2.6-8.5); Neutrophils Absolute Auto 3.6 K/mm3 (1.3-6.7); Neutrophils Percent Auto 66.2 % (45.5-73.1); Platelet Count Result 148 k/mm3 (150-375); Red Blood Count 4.11 M/mm3 (4.6-6.20); Red Cell Distribution Width 13.6 % (11.5-14.5); White Blood Count 5.5 K/mm3 (4.5-10.0)
[2020-04-02 18:59] VITALS: BP 145/97; PULSE 111; RESP 16; O2SAT 99
[2020-04-02 19:00] LABS: Alanine Aminotransferase 23 U/L (4-50); Albumin Level 3.2 g/dL (3.5-5.1); Alkaline Phosphatase 401 U/L (38-126); Anion Gap 4 mmol/L (8-16); Aspartate Amino Transferase 121 U/L (17-59); Bilirubin,Total 1.8 mg/dL (0.2-1.3); Blood Urea Nitrogen 11 mg/dL (9-20); Calcium 8.8 mg/dL (8.4-10.2); Carbon Dioxide 26 mmol/L (22-30); Chloride 104 mmol/L (98-107); Estimated CRCL calculation 85 ml/min; Estimated Glomerular Filt Rate > 60; Glucose 152 mg/dL (75-110); Lipase 118 U/L (23-300); Potassium 4.1 mmol/L (3.4-5.0); Sodium 134 mmol/L (137-145)
[2020-04-02 19:02] LABS: Lactic Acid Reflex 1.2 mmol/L (0.7-2.1)
[2020-04-02] MEDS: SIMETHICONE 125 MG CHEW TAB PO (20:20)
[2020-04-02] MEDS: DICYCLOMINE HCL INJ 20 MG/2 ML VIAL IM (20:23)
--- NOTE | 2020-04-02 20:41 | ED.ABDPAIN ---
HPI - Abdominal Pain General Chief Complaint: Abdominal Pain Stated Complaint: ABD PAIN Time Seen by Provider: 04/02/20 18:21 History of Present Illness HPI narrative: Patient is a 50-year-old male who presents ER with sudden onset abdominal pain. Patient underwent colonoscopy today where he had 2 polyps removed. Pain is in the epigastrium right upper quadrant. Sharp and nonradiating. Patient feels distended and bloated. No fevers or chills or sweats. No nausea or vomiting. He has not been flatulent or belching procedure. He did have 1 loose bowel movement that had fecal material in it. He has not yet eaten since his procedure. Related Data Home Medications Medication Instructions Recorded Confirmed omeprazole 10 mg PO DAILY 02/17/20 04/02/20 Allergies Allergy/AdvReac Type Severity Reaction Status Date / Time No Known Allergies Allergy Verified 04/02/20 18:23 Review of Systems Review of Systems: All systems reviewed & are unremarkable except as noted in HPI and below Constitutional: Constitutional: Denies chills, Denies fever(s) and Denies weakness ENT: Denies nasal congestion and Denies sore throat Gastrointestinal: Gastrointestinal: Reports abdominal pain, Reports bloating, Reports diarrhea, Denies nausea and Denies vomiting PMFSH Past Medical History Medical History Abdominal pain Acid reflux Arthritis Cirrhosis Diarrhea Elevated liver enzymes HTN (hypertension) Smoker Surgical History Surgical History (Updated 04/02/20 @ 12:10 by Mikel Contreras CRNA) History of appendectomy Hx of cholecystectomy S/P rotator cuff repair Family History Family History Mother Family history of malignant neoplasm of breast in first degree relative Other Family history of malignant neoplasm Social History Social History Smoking packs per day: 0.5 Smoking cigarettes per day: 10.0 Years smoked: 20 Smoking pack-years: 10.00 Smoking status: Current every day smoker Tobacco type: cigarettes Second hand tobacco smoke exposure: Yes Alcohol intake: former Drinks per week: 2 Substance use: never Substance use type: does not use Gender identity (if verbalized by the patient): Male Spiritual care concerns: No Exam Narrative: Exam Narrative: GENERAL: Uncomfortable-appearing, well-nourished, and in no acute distress. HEAD: Normocephalic, atraumatic. ENT: Mucous membranes moist. CHEST: Clear to auscultation. No respiratory distress. HEART: Tachycardic and regular. Normal peripheral pulses. ABDOMEN: Soft, moderately tender to the epigastrium right upper quadrant, distended.. EXTREMITIES: Normal range of motion. No edema. SKIN: Warm, dry, no rash. NEURO: Alert and oriented x3. Course Course Emergency Course: Patient markedly more comfortable on tachycardia has resolved since receiving pain medication as well as Bentyl and simethicone. Imaging with enteritis versus ileus. Discussed case with Dr. Duran. Sx should resolve as he is free of stool distally. Will d/c home. Vital Signs Vital signs: Vital Signs Pulse Rate 129 H 04/02/20 18:18 Respiratory Rate 18 04/02/20 18:18 Blood Pressure 140/104 H 04/02/20 18:18 Pulse Oximetry 98 04/02/20 18:18 Pulse Rate 111 H 04/02/20 18:59 Respiratory Rate 16 04/02/20 18:59 Blood Pressure 145/97 H 04/02/20 18:59 Pulse Oximetry 99 04/02/20 18:59 MDM - Abdominal Pain Lab Data Result diagrams: 04/02/20 18:32 04/02/20 18:32 Labs: Lab Results 04/02/20 04/02/20 04/02/20 Range/Units 18:32 18:32 18:32 WBC 5.5 (4.5-10.0) K/mm3 RBC 4.11 L (4.6-6.20) M/mm3 Hgb 14.1 (14.0-18.0) g/dL Hct 41.6 L (42.0-52.0) % MCV 101.2 H (80-100) fl MCH 34.3 H (26-34) pg MCHC 33.9 (32-36) g/dl RDW 13.6 (11.5-14.5) % Plt Count 148 L (150-375
[2020-04-02 21:42] VITALS: BP 138/98; PULSE 102; RESP 18; TEMP 36.9; O2SAT 98
== END 2020-04-02 21:47 | disposition home or self-care (01) ==
PROVIDERS: Emergency Provider Emergency Medicine
DX: K56.7 Ileus, unspecified (principal); K21.9 Gastro-esophageal reflux disease without esophagitis; M19.90 Unspecified osteoarthritis, unspecified site; K74.60 Unspecified cirrhosis of liver; I10 Essential (primary) hypertension; F17.210 Nicotine dependence, cigarettes, uncomplicated; K57.90 Diverticulosis of intestine, part unspecified, without perforation or abscess without bleeding; R18.8 Other ascites
CPT/HCPCS: 36415; 74177; 80053; 83605; 83690; 85025; 85055; 96372; 96374; 96376; 99284; A9270; J0500; J2270; Q9967

== ENCOUNTER 2020-04-16 10:24 | Emergency (ER) | payer OTHER, SELFPAY ==
--- NOTE | ~2020-04-16 | US_ITS ---
EXAMINATION: US paracentesis abd w/image DATE: 04/16/2020 13:32 INDICATION: Ascites. TECHNIQUE: The procedure and its risks and benefits were discussed with the patient. Potential risks discussed included bleeding and infection. The skin was prepped and draped in sterile fashion. 1% lid ocaine was used for local anesthesia. Under ultrasound guidance, a 5 Fr catheter with trochar was adv anced into the ascites in the right lower quadrant. Fluid was aspirated into vacuum bottles. The cath eter was removed, and a dressing was applied. There were no immediate complications. FINDINGS: Ultrasound images demonstrate ascites and the catheter within the fluid. IMPRESSION: 1. Successful ultrasound-guided paracentesis yielding 4350 mL of cloudy yellowish fluid. Reviewed, dictated and finalized at [facility] [employer] IMPRESSION: 1. Successful ultrasound-guided paracentesis yielding 4350 mL of cloudy yellow robert fluid.
[2020-04-16 10:34] VITALS: BP 181/107; PULSE 123; RESP 19; TEMP 36.7; O2SAT 98
[2020-04-16 11:09] LABS: Basophils Percent Auto 0.5 % (0.2-1.2); Eosinophils Percent Auto 0.5 % (0-4.4); Hematocrit 42.5 % (42.0-52.0); Hemoglobin 14.4 g/dL (14.0-18.0); Immature Granulocyte Absolute 0.01 K/mm3 (0.00-0.031); Immature Granulocyte Percent A 0.3 % (0-0.5); Immature Platelet Fraction Pct 5.1 % (0.9-11.2); Lymphocytes Absolute Auto 0.72 K/mm3 (0.9-3.2); Lymphocytes Percent Auto 18.3 % (18.3-44.2); Mean Corpuscular HGB Conc 33.9 g/dl (32-36); Mean Corpuscular Hemoglobin 33.9 pg (26-34); Monocytes Absolute Auto 0.4 K/mm3 (0.1-0.6); Monocytes Percent Auto 9.1 % (2.6-8.5); Neutrophils Absolute Auto 2.8 K/mm3 (1.3-6.7); Neutrophils Percent Auto 71.3 % (45.5-73.1); Platelet Count Result 128 k/mm3 (150-375); Red Blood Count 4.25 M/mm3 (4.6-6.20); White Blood Count 3.9 K/mm3 (4.5-10.0)
[2020-04-16 11:23] LABS: Alanine Aminotransferase 19 U/L (4-50); Albumin Level 3.1 g/dL (3.5-5.1); Alkaline Phosphatase 410 U/L (38-126); Anion Gap 5 mmol/L (8-16); Aspartate Amino Transferase 82 U/L (17-59); Bilirubin,Total 1.5 mg/dL (0.2-1.3); Blood Urea Nitrogen 10 mg/dL (9-20); Calcium 8.7 mg/dL (8.4-10.2); Carbon Dioxide 29 mmol/L (22-30); Chloride 101 mmol/L (98-107); Estimated CRCL calculation 96 ml/min; Estimated Glomerular Filt Rate > 60; Glucose 166 mg/dL (75-110); Lipase 63 U/L (23-300); Potassium 3.7 mmol/L (3.4-5.0); Sodium 135 mmol/L (137-145)
--- NOTE | 2020-04-16 11:24 | ED.ABDPAIN ---
HPI - Abdominal Pain General Chief Complaint: Abdominal Pain Stated Complaint: FLUID ON MY STOMACH Time Seen by Provider: 04/16/20 11:17 Source: patient Mode of arrival: ambulatory Limitations: no limitations History of Present Illness HPI narrative: 50 years old white female referred to the emergency room by his loan manager for large ascites and paracentesis. Patient reports increasing abdominal pain and the side of the abdomen over the last 7 days. History of colonoscopy 1 week ago. Patient denies any fever, chills, nausea, vomiting, diarrhea, constipation, urinary symptoms, shortness of breath, chest pain or back pain. Patient quit smoking 3 weeks ago, used to drink months ago, denies drug use History of appendectomy, cholecystectomy Related Data Home Medications Medication Instructions Recorded Confirmed omeprazole 10 mg PO DAILY 02/17/20 04/16/20 Allergies Allergy/AdvReac Type Severity Reaction Status Date / Time No Known Allergies Allergy Verified 04/16/20 09:14 Review of Systems Review of Systems: Narrative: CONSTITUTIONAL: Denies fever, chills, or sweats. EYES: Denies visual changes, redness, or discharge. ENT: Denies rhinorrhea, congestion, sore throat, or otalgia. CARDIOVASCULAR: Denies chest pain, palpitations, or edema. RESPIRATORY: Denies cough or dyspnea. GASTROINTESTINAL: Denies abdominal pain, nausea, vomiting, or diarrhea. GENITOURINARY: Denies dysuria or hematuria. SKIN: Denies rash or itching. MUSCULOSKELETAL: Denies back pain, joint pain, or myalgia. NEUROLOGIC: Denies headache, numbness, or weakness. PSYCHIATRIC: Denies anxiety or depression. [facility] Past Medical History Medical History Abdominal pain Acid reflux Arthritis Ascites Cirrhosis Diarrhea Elevated liver enzymes HTN (hypertension) Portal hypertensive gastropathy Smoker Surgical History Surgical History History of appendectomy Hx of cholecystectomy S/P rotator cuff repair Family History Family History Mother Family history of malignant neoplasm of breast in first degree relative Other Family history of malignant neoplasm Social History Social History Smoking packs per day: 0.5 Smoking cigarettes per day: 10.0 Years smoked: 20 Smoking pack-years: 10.00 Smoking status: Current some day smoker Tobacco type: cigarettes Second hand tobacco smoke exposure: Yes Alcohol intake: former Drinks per week: 2 Substance use: never Substance use type: does not use Gender identity (if verbalized by the patient): Male Spiritual care concerns: No Exam Narrative: Exam Narrative: General appearance: Well-developed, well-nourished Skin: Normal color, 1+ edema lower extremity bilaterally Head: Normocephalic, nontraumatic Eyes: Clear conjunctiva ENT: Oropharynx normal, ears normal, nose normal Neck: Supple, nontender Chest and respiratory: Airway patent, no respiratory distress, no accessory muscle use Heart: Regular rate/rhythm Abdomen: Firm large abdomen, consistent with ascites, quiet bowel sounds Vascular: Normal peripheral pulses, normal capillary refill. Musculoskeletal: Normal range of motion, nontender back Neurologic: Alert and oriented ?3, CER[employer] ARTIST is normal as tested, no gross motor deficit Course Course Emergency Course: Stable Reevaluation(s) Reevaluation #1: Patient feeling much better Status post abdominal centesis, 4350 mm. Date: 04/16/20 Time: 15:32 Consultations Consultation #1: Harlan Date: 04/16/20 Time: 15:33 Vital Signs Vital signs: Vit
[2020-04-16] MEDS: ONDANSETRON INJ 4 MG/2 ML VIAL IV PUSH (11:58)
[2020-04-16] MEDS: MORPHINE SULFATE (*CRX) 4 MG/ML INJ IV PUSH ×2 (11:58→14:23)
[2020-04-16 12:06] VITALS: BP 169/111; PULSE 119; RESP 18; O2SAT 100
[2020-04-16 12:20] LABS: Basophils Percent Auto 0.5 % (0.2-1.2); Eosinophils Percent Auto 0.5 % (0-4.4); Hematocrit 44.8 % (42.0-52.0); Hemoglobin 15.2 g/dL (14.0-18.0); Immature Granulocyte Absolute 0.01 K/mm3 (0.00-0.031); Immature Granulocyte Percent A 0.2 % (0-0.5); Immature Platelet Fraction Pct 5.6 % (0.9-11.2); Lymphocytes Absolute Auto 1.01 K/mm3 (0.9-3.2); Lymphocytes Percent Auto 23.1 % (18.3-44.2); Mean Corpuscular HGB Conc 33.9 g/dl (32-36); Mean Corpuscular Hemoglobin 34.2 pg (26-34); Mean Corpuscular Volume 100.7 fl (80-100); Monocytes Absolute Auto 0.4 K/mm3 (0.1-0.6); Monocytes Percent Auto 8.7 % (2.6-8.5); Neutrophils Absolute Auto 2.9 K/mm3 (1.3-6.7); Platelet Count Result 120 k/mm3 (150-375); Red Blood Count 4.45 M/mm3 (4.6-6.20); Red Cell Distribution Width 13.1 % (11.5-14.5); White Blood Count 4.4 K/mm3 (4.5-10.0)
[2020-04-16 12:28] LABS: Prothrombin Time 13.7 Seconds (11.1-14.7)
[2020-04-16 12:35] LABS: Add Urine Microscopic? YES; Appearance Urine Clear (Clear); Bilirubin Urine 1+ (Negative); Blood Urine Negative (Negative); Calcium Oxalate Crystals Urine Present /hpf; Color Urine Amber (Yellow); Glucose Urine UA Negative (Negative); Ketones Urine Negative (Negative); Leukocyte Esterase Ur Negative LEU/UL (Negative); Mucus Urine Heavy /lpf; Nitrate Urine Negative (Negative); Protein Urine 1+ mg/dL (Negative); RBC Urine 0-2 /hpf (0-2); Squamous Epithelial Cell Urine Rare /hpf (Few); WBC Urine 0-3 /hpf
[2020-04-16 12:41] LABS: Specific Grav Ur 1.033 (1.001-1.035)
[2020-04-16 12:45] LABS: Albumin Level 3.3 g/dL (3.5-5.1)
[2020-04-16 12:47] LABS: Alanine Aminotransferase 21 U/L (4-50); Albumin Level 3.3 g/dL (3.5-5.1); Alkaline Phosphatase 434 U/L (38-126); Anion Gap 6 mmol/L (8-16); Aspartate Amino Transferase 89 U/L (17-59); Bilirubin,Total 1.5 mg/dL (0.2-1.3); Blood Urea Nitrogen 10 mg/dL (9-20); Calcium 9.1 mg/dL (8.4-10.2); Carbon Dioxide 28 mmol/L (22-30); Chloride 101 mmol/L (98-107); Estimated CRCL calculation 96 ml/min; Estimated Glomerular Filt Rate > 60; Glucose 146 mg/dL (75-110); Lipase 59 U/L (23-300); Potassium 3.9 mmol/L (3.4-5.0); Sodium 135 mmol/L (137-145)
[2020-04-16 14:06] VITALS: BP 153/100; PULSE 100; RESP 18; O2SAT 100
[2020-04-16 15:52] VITALS: BP 148/99; PULSE 88; RESP 16; O2SAT 97
[2020-04-16 15:55] LABS: Source Peritoneal Fluid Peritoneal Fluid
[2020-04-16 15:56] LABS: Appearance Peritoneal Fluid Cloudy (Clear)
[2020-04-16 15:57] LABS: Color Peritoneal Fluid Yellow (Colorless)
[2020-04-16 15:58] LABS: Lymphocytes Peritoneal Fluid 57 %; Macrophages Peritoneal Fluid 2 %; Mesothelial Cells Peritoneal Fluid 23 %; Monocytes Peritoneal Fluid 15 %; Neutrophils Peritoneal Fluid 2 % (0-25); Nucleated Cells Peritoneal Flu 180 /uL (0-500); Other Cells Peritoneal Fluid 1 %; RBC Peritoneal Fluid 236 /uL (0-100000)
[2020-04-18 12:35] LABS: Glucose Peritoneal Fluid 164 mg/dL; LDH Peritoneal Fluid 40 U/L (<63); Total Protein Peritoneal Fluid <3.0 g/dL
== END 2020-04-16 15:55 | disposition home or self-care (01) ==
PROVIDERS: Emergency Provider Emergency Medicine
DX: K74.60 Unspecified cirrhosis of liver (principal); R18.8 Other ascites; K21.9 Gastro-esophageal reflux disease without esophagitis; M19.90 Unspecified osteoarthritis, unspecified site; I10 Essential (primary) hypertension; Z87.891 Personal history of nicotine dependence
CPT/HCPCS: 36415; 49083; 80053; 81001; 82040; 82945; 83615; 83690; 84157; 85025; 85055; 85610; 87070; 87075; 87205; 88108; 89051; 96374; 96375; 96376; 99284; J2270; J2405

== ENCOUNTER 2020-04-17 09:17 | Inpatient (IN) | payer OTHER, SELFPAY ==
[2020-04-17] VITALS (31 sets, daily range): BP systolic 129–167; BP diastolic 93–108; PULSE 95–113; RESP 16–19; TEMP 36.6–36.8; O2SAT 81–99; BMI 25.9
--- NOTE | ~2020-04-17 | US_ITS ---
EXAMINATION: US paracentesis abd w/image DATE: 04/17/2020 13:25 INDICATION: Ascites. TECHNIQUE: The procedure and its risks and benefits were discussed with the patient. Potential risks discussed included bleeding and infection. The skin was prepped and draped in sterile fashion. 1% lid ocaine was used for local anesthesia. Under ultrasound guidance, a 5 Fr catheter with trochar was adv anced into the ascites in the right lower quadrant. Fluid was aspirated into vacuum bottles. The cath eter was removed, and a dressing was applied. There were no immediate complications. FINDINGS: Ultrasound images demonstrate ascites and the catheter within the fluid. IMPRESSION: 1. Successful ultrasound-guided paracentesis yielding 1350 mL of cloudy yellowish fluid. Reviewed, dictated and finalized at location A. R BELT CONVEYOR IMPRESSION: 1. Successful ultrasound-guided paracentesis yielding 1350 mL of cloudy yellow robert fluid.
--- NOTE | ~2020-04-17 | US_ITS ---
EXAMINATION: US paracentesis abd w/image DATE: 04/19/2020 12:01 INDICATION: Ascites. TECHNIQUE: The procedure and its risks and benefits were discussed with the patient. Potential risks discussed included bleeding and infection. The skin was prepped and draped in sterile fashion. 1% lid ocaine was used for local anesthesia. Under ultrasound guidance, a 5 Fr catheter with trochar was adv anced into the ascites in the right lower quadrant. Fluid was aspirated into vacuum bottles. The cath eter was removed, and a dressing was applied. There were no immediate complications. FINDINGS: Ultrasound images demonstrate ascites and the catheter within the fluid. IMPRESSION: 1. Successful ultrasound-guided paracentesis yielding 1350 mL of clear yellow fluid. Reviewed, dictated and finalized at location A. CENTER SPECIALIST
--- NOTE | ~2020-04-17 | US_ITS ---
EXAMINATION: US venous doppler LE EXAM DATE: 04/18/2020 10:38 INDICATION: Bilateral leg edema. TECHNIQUE: Multiple grayscale, color flow and Doppler images of the lower extremity deep venous syste ms bilaterally were obtained and reviewed. There is no prior study for comparison. FINDINGS: Right side: The right common femoral, femoral and profunda veins demonstrate normal color flow, respi ratory variation, augmentation and compressibility. Compressibility, color flow confirmed within the right popliteal, posterior tibial, peroneal, and greater saphenous veins. Left side: The left common femoral, femoral and profunda veins demonstrate normal color flow, respira tory variation, augmentation and compressibility. Compressibility, color flow confirmed within the l eft popliteal, posterior tibial, peroneal, and greater saphenous veins. IMPRESSION: 1. No lower extremity deep venous thrombosis bilaterally. Reviewed, dictated and finalized at location B. R COACH SUPERVISOR
--- NOTE | ~2020-04-17 | CT_ITS ---
EXAMINATION: CT abdomen pelvis w con EXAM DATE: 04/17/2020 11:11 INDICATION: Abdominal distension . TECHNIQUE: Spiral CT of the abdomen and pelvis was performed following intravenous injection of 100 m L Omnipaque 350. Axial, coronal and sagittal images were reviewed. The dose-length product (DLP) fo r this examination was 557.03 mGy-cm. The exposure was tailored according to patient size (auto mA e xposure control), and iterative reconstruction (ASIR) was used as additional dose reduction technique . 04/02/2020 FINDINGS: There is moderate amount of ascites. There is nodular liver contour consistent with cirrhos is. Portal vein measures 17 mm in diameter, probably indicating some component of portal hypertension . The liver, spleen, adrenal glands and pancreas are otherwise unremarkable. Gallbladder is unremar kable. No biliary obstruction. Portal and splenic veins are patent. Kidneys enhance symmetrically. There is no hydronephrosis. The prostate is unremarkable. The bladder is unremarkable. There is no retroperitoneal or pelvic lymphadenopathy. Small umbilical fat-containing hernia. There are surgical changes consistent with appendectomy. The stomach and small bowel are unremarkab le. There is expected amount of colonic stool. No free intraperitoneal gas. The heart is normal in size. There are no pericardial or pleural effusions. The lung bases are unremarkable. Thoracolu mbar chronic compression fractures causing some kyphosis. IMPRESSION: 1. Probable cirrhosis and portal hypertension. 2. Moderate ascites. Reviewed, dictated and finalized at location B. CH ANALYST
--- NOTE | ~2020-04-17 | US_ITS ---
EXAMINATION: US paracentesis abd w/image DATE: 04/24/2020 14:43 INDICATION: Ascites. TECHNIQUE: The procedure and its risks and benefits were discussed with the patient. Potential risks discussed included bleeding and infection. The skin was prepped and draped in sterile fashion. 1% lid ocaine was used for local anesthesia. Under ultrasound guidance, a 5 Fr catheter with trochar was adv anced into the ascites in the right lower quadrant. Fluid was aspirated into vacuum bottles. The cath eter was removed, and a dressing was applied. There were no immediate complications. FINDINGS: Ultrasound images demonstrate a small amount of ascites scattered throughout the abdomen and pelvis. Subsequent images demonstrate the catheter within a small fluid pocket in the right lower quadrant. IMPRESSION: 1. Successful ultrasound-guided paracentesis yielding 700 mL of clear yellow fluid. Reviewed, dictated and finalized at location A. N CONTROL ELECTRONIC TECHNICIAN IMPRESSION: 1. Successful ultrasound-guided paracentesis yielding 700 mL of clear yellow f luid.
--- NOTE | ~2020-04-17 | MR_ITS ---
EXAMINATION: MR abdomen wo/w con INDICATION: Cirrhosis and ascites TECHNIQUE: Coronal SSFSE ARC, WATER:coronal LAVA-FLEX, Coronal 2D FIESTA FatSat, Axial SSFSE BH ARC, Axial 3D DualEcho BH, Axial SSFSE-IR, Axial DWI b=500, Axial 2D FIESTA FatSat, pre and dynamic postco ntrast Axial LAVA ARC, postcontrast Coronal In and Opposed phase LAVA FLEX COMPARISON: CT, 04/17/2020 CONTRAST: Multihance, 14 cc FINDINGS: There are trace pleural effusions. The heart size is normal. There is nodularity of the renée er surface. No focal liver mass is identified. The portal and hepatic veins are patent. Splenomegaly is noted. There is a moderate volume of ascites. The gallbladder is surgically absent. The pancreas a nd adrenal glands are normal. The kidneys are unremarkable. There are no pathologically enlarged abdo briseida lymph nodes. No dilated loops of bowel are evident. IMPRESSION: 1. Cirrhosis with portal hypertension. 2. Moderate volume of ascites. Reviewed, dictated and finalized at location A. HIC TECHNICIAN
[2020-04-17 10:14] LABS: Basophils Percent Auto 0.5 % (0.2-1.2); Eosinophils Percent Auto 0.7 % (0-4.4); Hematocrit 42.7 % (42.0-52.0); Hemoglobin 14.4 g/dL (14.0-18.0); Immature Granulocyte Absolute 0.01 K/mm3 (0.00-0.031); Immature Granulocyte Percent A 0.2 % (0-0.5); Lymphocytes Absolute Auto 0.84 K/mm3 (0.9-3.2); Lymphocytes Percent Auto 19.5 % (18.3-44.2); Mean Corpuscular HGB Conc 33.7 g/dl (32-36); Mean Corpuscular Volume 100.7 fl (80-100); Mean Platelet Volume 10.4 fl (7.4-10.4); Monocytes Absolute Auto 0.4 K/mm3 (0.1-0.6); Monocytes Percent Auto 8.4 % (2.6-8.5); Neutrophils Percent Auto 70.7 % (45.5-73.1); Platelet Count Result 119 k/mm3 (150-375); Red Blood Count 4.24 M/mm3 (4.6-6.20); Red Cell Distribution Width 13.1 % (11.5-14.5); White Blood Count 4.3 K/mm3 (4.5-10.0)
[2020-04-17 10:25] LABS: INR 0.9; Prothrombin Time 12.6 Seconds (11.1-14.7)
[2020-04-17] MEDS: MORPHINE SULFATE (*CRX) 4 MG/ML INJ IV PUSH ×7 (10:26→23:23)
[2020-04-17] MEDS: ONDANSETRON INJ 4 MG/2 ML VIAL IV PUSH (10:26)
[2020-04-17 10:48] LABS: Ammonia < 9 umol/L (9-30)
[2020-04-17 10:49] LABS: Alanine Aminotransferase 19 U/L (4-50); Albumin Level 3.2 g/dL (3.5-5.1); Alkaline Phosphatase 398 U/L (38-126); Anion Gap 6 mmol/L (8-16); Aspartate Amino Transferase 92 U/L (17-59); Bilirubin,Total 1.2 mg/dL (0.2-1.3); Blood Urea Nitrogen 11 mg/dL (9-20); Calcium 8.8 mg/dL (8.4-10.2); Carbon Dioxide 29 mmol/L (22-30); Chloride 102 mmol/L (98-107); Estimated Glomerular Filt Rate > 60; Glucose 155 mg/dL (75-110); Lipase 78 U/L (23-300); Potassium 3.9 mmol/L (3.4-5.0); Sodium 137 mmol/L (137-145)
[2020-04-17] MEDS: SODIUM CHLORIDE 0.9% IV 1,000 ML 999 ML IV CONT (12:02)
--- NOTE | 2020-04-17 12:40 | PC.NURSE ---
pt continues to c/o abd pain and distention. pt to have paracentesis.
--- NOTE | 2020-04-17 13:02 | ED.ABDPAIN ---
HPI - Abdominal Pain General Chief Complaint: Abdominal Pain Stated Complaint: Stomach Swelling, PCP Sent Patient Time Seen by Provider: 04/17/20 09:52 Source: patient Mode of arrival: ambulatory Limitations: no limitations History of Present Illness HPI narrative: Thist patient is a 50 year old male with history of cirrhosis with ascites who presents for evaluation of abdominal distension. He states he was diagnosed with cirrhosis 1 month ago and his gunsmith apprentice is Dr. Patti Perez. He was seen in the ED yesterday for abdominal distension with ascited. He has a paracentesis performed in which he had over 4 L removed. He was discharged home and he states his abdomen was flat. He woke up this morning with abdominal distention. He reports he has having pain because his abdomen is so tight. He also reports leg edema. He denies nausea, vomiting, fever or diarrhea. Related Data Home Medications Medication Instructions Recorded Confirmed omeprazole 10 mg PO DAILY 02/17/20 04/17/20 Allergies Allergy/AdvReac Type Severity Reaction Status Date / Time No Known Allergies Allergy Verified 04/17/20 16:03 Review of Systems Review of Systems: All systems reviewed & are unremarkable except as noted in HPI and below Constitutional: Constitutional: Denies chills and Denies fever(s) Cardiovascular: Cardiovascular: Denies chest pain Respiratory: Respiratory: Denies cough and Denies dyspnea Gastrointestinal: Gastrointestinal: Reports abdominal pain, Denies nausea and Denies vomiting PMFSH Past Medical History Medical History Abdominal pain Acid reflux Arthritis Ascites Cirrhosis Diarrhea Elevated liver enzymes HTN (hypertension) Portal hypertensive gastropathy Smoker Surgical History Surgical History History of appendectomy Hx of cholecystectomy S/P rotator cuff repair Family History Family History Mother Family history of malignant neoplasm of breast in first degree relative Other Family history of malignant neoplasm Social History Social History Smoking packs per day: 0.5 Smoking cigarettes per day: 10.0 Years smoked: 20 Smoking pack-years: 10.00 Smoking status: Current some day smoker Tobacco type: cigarettes Second hand tobacco smoke exposure: Yes Alcohol intake: former Drinks per week: 2 Substance use: never Substance use type: does not use Last use: quit drinking a long time ago Gender identity (if verbalized by the patient): Male Spiritual care concerns: No Exam Const: General: alert and ill appearing; No no acute distress Orientation/consciousness: patient oriented x3 HENMT: Head: atraumatic Face and sinus: face symmetric Mouth: Yes Normal oral and palatal mucosa present, Yes lip normal, Yes oropharynx normal and Yes moist mucous membranes Eyes: EOM: EOMs intact bilaterally Chest: Chest palpation & inspection: normal inspection of the chest Resp: Effort & Inspection: normal respiratory effort and no retractions Auscultation: clear to auscultation bilaterally Cardio: Rate: tachycardic Rhythm: regular rhythm Heart sounds: no murmurs GI: GI Palp: Yes Soft to palpation, Yes Tenderness to palpation present (GI), No Guarding due to palpation present (GI) and No Rigid due to palpation Percussion: Yes Fluid wave present (distended tense) Skin: General skin exam: normal color Rashes: no rashes Neuro: General: patient oriented x3, moves all extremities and No CN's II-XI intact bilaterally Extrem: General: no pedal edema Psych: Mental Status: mental status grossly normal Affect: normal affect Course Consultations Consultation #1: I discussed case with DR. Claros and he recommends performing paracentesis and giving patient 50 gm of albumin. He agrees patient to be admitted.
[2020-04-17] MEDS: ALBUMIN HUMAN 25% 25 GM/100 ML 200 ML IVPB (13:10)
[2020-04-17 14:26] LABS: Source Peritoneal Fluid Peritoneal Fluid
[2020-04-17 14:27] LABS: Appearance Peritoneal Fluid Cloudy (Clear); Color Peritoneal Fluid Yellow (Colorless); Nucleated Cells Peritoneal Flu 169 /uL (0-500); RBC Peritoneal Fluid 270 /uL (0-100000)
[2020-04-17 14:44] LABS: Lymphocytes Peritoneal Fluid 33 %; Monocytes Peritoneal Fluid 7 %; Neutrophils Peritoneal Fluid 3 % (0-25)
[2020-04-17 14:45] LABS: Macrophages Peritoneal Fluid 48 %; Mesothelial Cells Peritoneal Fluid 16 %
--- NOTE | 2020-04-17 15:39 | ADMGEN ---
This patient, Matt Worley II, was admitted to [facility] Surg Room 301-01. Patient/family oriented to hospital policies and general routines including ID bracelet, bed and alarms, visiting hours, pain management, procedures, bathroom and other care routines, personal items, smoking policy, room service/diet, and visiting hours. Information on how to activate the Rapid Response Team has been discussed. Patient/Family are encouraged to report perceived risks to care and to ask questions if they do not understand what they are told or what they should do.
--- NOTE | 2020-04-17 17:00 | PM.IMHP ---
H&P: HPI History of Present Illness Date/Time: 04/17/20 17:00 Chief complaint: Abdominal pain and recurrent ascites. Narrative: Matt Worley II is a 50-year-old male recently diagnosed with cirrhosis who presented to the emergency department earlier today with complaints of abdominal pain and recurrent ascites. He was diagnosed with cirrhosis in the last couple of months and has been followed by Dr. Duran and has recently seen a senior accounting manager at [facility], Dr. Medrano, and the etiology of his cirrhosis is not entirely clear at this time. She has ordered an abdominal MRI however 1 cannot be scheduled as an outpatient for several weeks. Additionally he was seen by an heat treating operator and is being referred to a retinal specialist as apparently they were unable to completely rule out Esteban disease. The patient does note that as a he was treated at [facility] in [place] with some sort of liver disease or infection, perhaps cytomegalovirus as his parents found some old reports that contain the wording ?cytomegalic inclusion bodies.? In any event, more recently he developed ascites and in fact had a paracentesis yesterday (04/16/2020) which yielded 4350 mL. He felt much better thereafter and ?went home with a flat stomach.? Throughout the morning he has developed abdominal discomfort ?like my insides are ripping? and once again is filling up with fluid. He also reports mild orthopnea, lower extremity edema, decreased appetite, and loose, light colored stools. He is now status post repeat paracentesis which yielded 13 50 mL of cloudy yellowish fluid. He has not consumed alcohol in quite some time. No exposure to or history of hepatitis. He denies fever, chills, sweats, chest pain, shortness of breath, cough, nausea, and vomiting. Review of Systems Review of Systems: Narrative: Twelve systems were reviewed with pertinent positives and negatives as per HPI. He has lost quite of bit await in the last several months due to poor appetite. No lightheadedness or dizziness. No rash or pruritus. Except as documented, all other systems were reviewed and are negative. [facility] Past Medical History Medical History Arthritis Cirrhosis of liver with ascites Gastroesophageal reflux disease History of kidney stones Hypertension Portal hypertensive gastropathy Noted on endoscopy on 03/23/[address] Duran. Prostate cancer Status post radiation seed implantation. Smoker Surgical History Surgical History (Updated 04/17/20 @ 22:45 by Romi Leiva PA-C) History of appendectomy History of cholecystectomy History of inguinal hernia repair History of lithotripsy History of repair of right rotator cuff History of testicular surgery Resection of a tumor, unclear if malignant or benign. Family History Family History Mother Family history of malignant neoplasm of breast in first degree relative Other Family history of malignant neoplasm Social History Social History (Updated 04/17/20 @ 22:47 by Romi Leiva PA-C) Social History: Surrogate decision maker: Marnie Washington. Code status: Full code. Smoking packs per day: 0.5 Smoking cigarettes per day: 10.0 Years smoked: 20 Smoking pack-years: 10.00 Smoking status: Current some day smoker Tobacco type: cigarettes Second hand tobacco smoke exposure: Yes Alcohol intake: former Drinks per week: 2 Substance use: never Substance use type: does not use Additional living arrangements comments: Resides in [place] with his and fair 5-year-old son. He has 2 grown children. 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 Gender identity (if verbalized by the patient): Male Spiritual care concerns: No Meds Home Medications and Allergies Home Medications Medication Instructions Recorded Confirmed Type ome
[2020-04-18] MEDS: MORPHINE SULFATE (*CRX) 4 MG/ML INJ IV PUSH ×7 (02:53→23:19)
[2020-04-18 06:00] VITALS: BP 138/87; PULSE 92; RESP 18; TEMP 36.9; O2SAT 98
[2020-04-18 06:46] LABS: Basophils Percent Auto 0.7 % (0.2-1.2); Eosinophils Absolute Auto 0.1 K/mm3 (0-0.3); Eosinophils Percent Auto 1.7 % (0-4.4); Hematocrit 37.6 % (42.0-52.0); Hemoglobin 12.3 g/dL (14.0-18.0); Immature Granulocyte Absolute 0.01 K/mm3 (0.00-0.031); Immature Granulocyte Percent A 0.3 % (0-0.5); Immature Platelet Fraction Pct 5.3 % (0.9-11.2); Lymphocytes Absolute Auto 0.93 K/mm3 (0.9-3.2); Lymphocytes Percent Auto 32.2 % (18.3-44.2); Mean Corpuscular HGB Conc 32.7 g/dl (32-36); Mean Corpuscular Hemoglobin 33.5 pg (26-34); Mean Corpuscular Volume 102.5 fl (80-100); Mean Platelet Volume 10.3 fl (7.4-10.4); Monocytes Absolute Auto 0.3 K/mm3 (0.1-0.6); Monocytes Percent Auto 10.4 % (2.6-8.5); Neutrophils Absolute Auto 1.6 K/mm3 (1.3-6.7); Neutrophils Percent Auto 54.7 % (45.5-73.1); Platelet Count Result 87 k/mm3 (150-375); Red Blood Count 3.67 M/mm3 (4.6-6.20); Red Cell Distribution Width 12.8 % (11.5-14.5); White Blood Count 2.9 K/mm3 (4.5-10.0)
[2020-04-18 07:01] LABS: Alanine Aminotransferase 14 U/L (4-50); Alkaline Phosphatase 276 U/L (38-126); Anion Gap 3 mmol/L (8-16); Aspartate Amino Transferase 79 U/L (17-59); Bilirubin,Total 1.5 mg/dL (0.2-1.3); Blood Urea Nitrogen 7 mg/dL (9-20); Calcium 8.5 mg/dL (8.4-10.2); Carbon Dioxide 32 mmol/L (22-30); Chloride 101 mmol/L (98-107); Estimated CRCL calculation 110 ml/min; Estimated Glomerular Filt Rate > 60; Glucose 97 mg/dL (75-110); Potassium 3.4 mmol/L (3.4-5.0); Sodium 136 mmol/L (137-145)
[2020-04-18] MEDS: CHOLESTYRAMINE (W/ SUGAR) 4 GM POWD.PACK PO ×2 (09:19→16:48)
[2020-04-18] MEDS: SIMETHICONE 125 MG CHEW TAB PO ×4 (09:20→19:53)
[2020-04-18] MEDS: FUROSEMIDE 20 MG TABLET PO ×2 (09:20→14:35)
[2020-04-18] MEDS: SPIRONOLACTONE 25 MG TABLET PO (09:20)
[2020-04-18] MEDS: DICYCLOMINE HCL 10 MG CAPSULE 20 MG PO ×4 (09:20→19:53)
[2020-04-18] MEDS: PANTOPRAZOLE 40 MG TABLET PO (12:22)
--- NOTE | 2020-04-18 13:12 | PM.IMPN ---
Progress Note: A&P Assessment and Plan (1) Cirrhosis of liver with ascites: Code(s): K74.60 - Unspecified cirrhosis of liver; R18.8 - Other ascites Status: Inactive Assessment and Plan: The patient has been admitted to the hospitalist service for further treatment and evaluation of reaccumulation of ascites and abdominal pain. He is status post thoracentesis which yielded 13 50 mL of cloudy yellow fluid yesterday. Given his abdominal pain there are concerns for SBP however peritoneal fluid and preliminary paracentesis fluid culture is not consistent with such. Discussed case with Dr. Claros and he recommended given one time dose of Lasix 20 mg now and one time dose of spironolactone 50 mg now, then increasing to 40 mg Lasix daily tomorrow and 100 mg spironolactone daily tomorrow. MRI of abdomen shows cirrhosis of liver and mod ascites again today. Spironolactone 50 mg once, and lasix 20 mg once, both now Will increase Spironolactone 100 mg daily starting tomorrow; increase Lasix 40 mg daily starting tomorrow per GI rec as stated above Await further recommendation from GI; appreciate input. Will monitor for increased urine output. (2) Abdominal pain: Code(s): R10.9 - Unspecified abdominal pain Status: Acute Assessment and Plan: Likely due to recurring ascites. SBP less likely. Please see above a/p (3) Hypertension: Code(s): I10 - Essential (primary) hypertension Status: Inactive Assessment and Plan: BP today 130s sys; improved Monitor closely Continue home medications (4) Gastroesophageal reflux disease: Code(s): K21.9 - Gastro-esophageal reflux disease without esophagitis Status: Inactive Assessment and Plan: No acute issues Monitor (5) Thrombocytopenia: Code(s): D69.6 - Thrombocytopenia, unspecified Status: Acute Assessment and Plan: Platelets 87k today; decrease. Likely due to liver disease. Today, labs actually show pancytopenia, although possible lab error due to technique. Monitor closely Transfuse as needed Subjective Date/time seen: 04/18/20 13:12 Interval history: Patient is a pleasant 50-year-old male recently diagnosed with cirrhosis who is seen in follow up for cirrhosis with ascites. Patient states his pain is reasonable today while taking his pain medication, but notices still increased pain as pain meds wear off or when he has significant movement or deep breathing. He notes his site of paracentesis is soar today but denies any evidence of bleeding or discharge from site. He notes his LE edema has significantly improved after he has raised his legs overnight. He does, however note significant abdominal distension returning since yesterday. He also notes minimal urine output today, as well. No other complaints. Denies f/c/s, headaches, dizziness, lightheadedness, cp/palpitations, sob/cough, n/v, changes in BMs, dysuria, hematuria, calf pain. Review of Systems Review of Systems: All systems reviewed & are unremarkable except as noted in HPI and below Exam Narrative: Exam Narrative: General: Patient resting in semi-forde's in bed in no acute distress; legs are raised. Slightly molina skin color. HEENT: Normocephalic, EOMI, oral mucosa moist. Cardiovascular: Rate and rhythm are regular. No notable murmur, rub, or gallop. Respiratory: Lungs clear to auscultation all khan. Non-labored breathing. Abdomen: Significant distension. mild diffuse tenderness. bowel sounds present. Bandage noted over site of paracentesis from yesterday Extremities: Peripheral pulses intact. Trace b/l edema in LE extremities. Neuro: No focal neurological deficits. Speech is clear. Objective Data Vital Signs Vital Signs: Last Vital Signs
[2020-04-18 14:00] VITALS: BP 136/88; PULSE 104; RESP 20; TEMP 36.7; O2SAT 91
[2020-04-18] MEDS: SPIRONOLACTONE 50 MG TABLET PO (14:35)
--- NOTE | 2020-04-18 15:09 | WPDGICN ---
Assessment and Plan Assessment and plan (1) Decompensation of cirrhosis of liver: Code(s): K72.90 - Hepatic failure, unspecified without coma; K74.60 - Unspecified cirrhosis of liver Status: Acute Assessment and Plan: he presented with ascites, no SBP and underwent paracentesis (received iv albumin), renal function is normal. will increase his diuretics to 100mg aldactone and 40mg lasix daily, may need to go up if renal function allows. continue with 2g na diet will order another therapeutic paracentesis and hopefully he can go home and follow up with his etiologist at [facility] I wonder if he may benefit from TIPS procedure if recurrent ascites (no h/ encephalopathy, CHF but probably will need 2d-echo before procedure), his MEDL score is 8 also work up will need to be completed by his etiologist (high MEL, low ceruloplasmin) and eventually consideration for liver transplant evaluation (2) Ascites: Code(s): R18.8 - Other ascites Status: Acute Assessment and Plan: 2g na diet increased diuretics (3) Elevated liver enzymes: Code(s): R74.8 - Abnormal levels of other serum enzymes Status: Acute (4) Thrombocytopenia: Code(s): D69.6 - Thrombocytopenia, unspecified Status: Acute (5) Portal hypertensive gastropathy: Code(s): K76.6 - Portal hypertension; K31.89 - Other diseases of stomach and duodenum Status: Acute (6) Diarrhea: Code(s): R19.7 - Diarrhea, unspecified Status: Acute Assessment and Plan: colonoscopy and egd recently, no obvious reason stool samples negative no celiac disease (7) Abdominal pain: Code(s): R10.9 - Unspecified abdominal pain Status: Acute Assessment and Plan: acute on chronic, exacerbated by ascites will try to remove more fluid and hopefully will help to alleviate pain GI Consult Note Consult date/time: 04/18/20 15:09 Reason for consult: ascites, decompensated cirrhosis HPI: Matt Worley II is a 50 year old male who originally came to see me because abdominal pain and diarrhea, imaging showed cirrhosis, work up showed low ceruloplasmin (24 urine cu normal), ophtalmologist could not rule out Esteban disease and he was referred to see a retina specialist. Also had elevated MEL 1:1280, high ferritin but noral HFE, hepatitis panel negative. EGD showed PHG but no varices, colon mucosa normal (bx negative for celiac disease or microscopic colitis) and stool samples negative for infection, because abnormal findings I referred patient to etiologist at [facility] recently. He came to see me to the office 2 days ago with more increase of abdominal girth with leg edema, I had started him on lasix 20mg with aldactone 25 mg daily. I instructed to go to ER which he did, he had his first paracentesis ever and had 4.3L removed (no SBP), he went home but came back because worsening abdominal pain and admitted. Second paracentesis about 1.5L, again no SBP. MRI abdomen showed cirrhosis with PHT, moderate ascites. Review of Systems Constitutional: Constitutional: Denies headache(s) and Reports lethargy Eyes: Eyes: Denies blurry vision ENT: Reports Normal hearing present, Denies headache(s) and Denies neck pain Cardiovascular: Cardiovascular: Denies chest pain and Denies dyspnea Respiratory: Respiratory: Denies dyspnea Gastrointestinal: Gastrointestinal: Reports abdominal pain and Reports diarrhea Genitourinary: Genitourinary: Denies dysuria Musculoskeletal: Musculoskeletal: Denies neck pain Integumentary/Breasts: Skin/Breast: Denies dry skin Neurologic: Reports Normal hearing present, Denies headache(s) and Denies weakness Psychiatric: Psychiatric: Denies anxiety Endocrine: Endocrine: Denies change in body appearance Hematologic/Lymphatic: Hematologic/Lymphatic: Denies easy bleeding Allergic/Immunologic: Allergic/Immunologic: Denies urticaria PMFSH Past Medical History Medical History Arthritis
[2020-04-18] MEDS: ONDANSETRON INJ 4 MG/2 ML VIAL IV PUSH (18:28)
[2020-04-18 20:00] VITALS: PULSE 99; RESP 18; O2SAT 96
[2020-04-18 22:00] VITALS: BP 121/73; PULSE 99; RESP 18; TEMP 36.8; O2SAT 96
[2020-04-18] MEDS: MELATONIN 3 MG TABLET PO (23:13)
[2020-04-19] MEDS: MORPHINE SULFATE (*CRX) 4 MG/ML INJ IV PUSH ×3 (01:50→08:10)
[2020-04-19] MEDS: BISACODYL 10 MG SUPPOSITORY RECTAL (05:16)
[2020-04-19 06:00] VITALS: BP 122/82; PULSE 74; RESP 20; TEMP 37; O2SAT 96
[2020-04-19 06:52] LABS: Basophils Percent Auto 0.4 % (0.2-1.2); Eosinophils Absolute Auto 0.1 K/mm3 (0-0.3); Eosinophils Percent Auto 1.3 % (0-4.4); Hematocrit 41.3 % (42.0-52.0); Hemoglobin 13.6 g/dL (14.0-18.0); Immature Granulocyte Absolute 0.01 K/mm3 (0.00-0.031); Immature Granulocyte Percent A 0.2 % (0-0.5); Immature Platelet Fraction Pct 6.6 % (0.9-11.2); Lymphocytes Absolute Auto 1.49 K/mm3 (0.9-3.2); Lymphocytes Percent Auto 32.4 % (18.3-44.2); Mean Corpuscular HGB Conc 32.9 g/dl (32-36); Mean Corpuscular Hemoglobin 33.5 pg (26-34); Mean Corpuscular Volume 101.7 fl (80-100); Mean Platelet Volume 10.6 fl (7.4-10.4); Monocytes Absolute Auto 0.6 K/mm3 (0.1-0.6); Monocytes Percent Auto 13.9 % (2.6-8.5); Neutrophils Absolute Auto 2.4 K/mm3 (1.3-6.7); Neutrophils Percent Auto 51.8 % (45.5-73.1); Platelet Count Result 107 k/mm3 (150-375); Red Blood Count 4.06 M/mm3 (4.6-6.20); Red Cell Distribution Width 12.4 % (11.5-14.5); White Blood Count 4.6 K/mm3 (4.5-10.0)
[2020-04-19 07:00] LABS: Alanine Aminotransferase 13 U/L (4-50); Albumin Level 3.2 g/dL (3.5-5.1); Alkaline Phosphatase 278 U/L (38-126); Anion Gap 3 mmol/L (8-16); Aspartate Amino Transferase 61 U/L (17-59); Bilirubin,Total 1.2 mg/dL (0.2-1.3); Blood Urea Nitrogen 6 mg/dL (9-20); Calcium 9.2 mg/dL (8.4-10.2); Carbon Dioxide 34 mmol/L (22-30); Chloride 100 mmol/L (98-107); Estimated CRCL calculation 96 ml/min; Estimated Glomerular Filt Rate > 60; Glucose 112 mg/dL (75-110); Magnesium 1.8 mg/dL (1.6-2.3); Potassium 4.6 mmol/L (3.4-5.0); Sodium 137 mmol/L (137-145)
[2020-04-19 08:00] VITALS: PULSE 74; RESP 20; O2SAT 92
[2020-04-19 10:13] VITALS: O2SAT 92
[2020-04-19] MEDS: DICYCLOMINE HCL 10 MG CAPSULE 20 MG PO ×4 (10:24→20:20)
[2020-04-19] MEDS: SPIRONOLACTONE 50 MG TABLET 100 MG PO (10:24)
[2020-04-19] MEDS: CHOLESTYRAMINE (W/ SUGAR) 4 GM POWD.PACK PO ×2 (10:26→18:20)
[2020-04-19] MEDS: FUROSEMIDE 40 MG TABLET PO (10:26)
[2020-04-19] MEDS: PANTOPRAZOLE 40 MG TABLET PO (10:27)
[2020-04-19] MEDS: SIMETHICONE 125 MG CHEW TAB PO ×4 (10:27→20:21)
[2020-04-19] MEDS: HYDROcodone/acetaminophen (*CRX) 5-325 MG TABLET 1 TAB PO ×3 (12:30→22:11)
--- NOTE | 2020-04-19 12:55 | PM.IMPN ---
Progress Note: A&P Assessment and Plan (1) Cirrhosis of liver with ascites: Code(s): K74.60 - Unspecified cirrhosis of liver; R18.8 - Other ascites Status: Inactive Assessment and Plan: The patient has been admitted to the hospitalist service for further treatment and evaluation of reaccumulation of ascites and abdominal pain. He is status post paracentesis which yielded 13 50 mL of cloudy yellow fluid 04/17, and again today that yeielded 1350 mL clear yellow fluid (therapeutic). Given his abdominal pain there were concerns for SBP however peritoneal fluid and preliminary paracentesis fluid culture is not consistent with such. MRI of abdomen shows cirrhosis of liver and mod ascites during stay. Patient making very little urine despite increase in diuretic yesterday. Will continue Spironolactone 100 mg daily and Lasix 40 mg daily per GI rec Will bladder scan to assess for retention given low urine output. Will discuss with GI to possible monitor urine output overnight Await further recommendation from GI; appreciate input. Will monitor for increased urine output. (2) Abdominal pain: Code(s): R10.9 - Unspecified abdominal pain Status: Acute Assessment and Plan: Likely due to recurring ascites. SBP less likely. Please see above a/p (3) Hypertension: Code(s): I10 - Essential (primary) hypertension Status: Inactive Assessment and Plan: BP today 120s sys; improved Monitor closely Continue home medications (4) Gastroesophageal reflux disease: Code(s): K21.9 - Gastro-esophageal reflux disease without esophagitis Status: Inactive Assessment and Plan: No acute issues Monitor (5) Thrombocytopenia: Code(s): D69.6 - Thrombocytopenia, unspecified Status: Acute Assessment and Plan: Platelets 107k today; increase. Likely due to liver disease. Pancytopenia improved; WBC 4.6k today Monitor closely Transfuse as needed Subjective Date/time seen: 04/19/20 12:55 Interval history: Patient is a pleasant 50-year-old male recently diagnosed with cirrhosis who is seen in follow up for cirrhosis with ascites. Patient states his pain is better after he had a paracentesis this afternoon. He is concerned on being discharged today given that he has had rapid recurrent ascites. He is having very little urine output today and yesterday despite an increase in his diuretic regimen. He has had prostate issues in the past (prostate CA), but does not think he is retaining urine, but he is unsure. He has been on Flomax at one time. LE edema appears to be stable from yesterday. No other complaints. Denies f/c/s, headaches, dizziness, lightheadedness, cp/palpitations, sob/cough, n/v, changes in BMs, dysuria, hematuria, calf pain. Review of Systems Review of Systems: All systems reviewed & are unremarkable except as noted in HPI and below Exam Narrative: Exam Narrative: General: Patient resting in semi-forde's in bed in no acute distress; legs are raised. Slightly molina skin color. HEENT: Normocephalic, EOMI, oral mucosa moist. Cardiovascular: Rate and rhythm are regular. No notable murmur, rub, or gallop. Respiratory: Lungs clear to auscultation all khan. Non-labored breathing. Abdomen: Significant distension. mild diffuse tenderness. bowel sounds present. Bandage noted over site of paracentesis from yesterday : minimal urine output noted in urinal; dark in color Extremities: Peripheral pulses intact. Trace b/l edema in LE extremities. Neuro: No focal neurological deficits. Speech is clear. Objective Data Vital Signs Vital Signs: Last Vital Signs Temp 98.6 F 04/19/20 06:00 Pulse 74 04/19/20 08:00 Resp 20 04/19/20 08:00 BP 122/82 04/19/20 06:00
--- NOTE | 2020-04-19 12:56 | PCDIET ---
Nutrition Follow-Up Complete: Inadequate oral intake r/t early satiety as evidence by wt loss of 45lbs in 3 months 50% po intake of meals and supplements to halt further wt loss Goal: Goal met. Continue goal. Pt current nutrition is npo Nutrition recommendation: agree Last recorded weight is 76.4 kg, up from 70.9kg on admit, most likely fluid Bowel Motility Labs Reviewed: AST 61, BUN 6, Hgb 11.6, Hct 41.3, Albumin 3.2 Meds Noted:Zofran, melatonin, pantaprozole,Protonix Additional Notes: Pt NPO currently for paracentesis. Plans for d/c later today. Pt has been eating great, 75-100% of meals. Edu provided on protein intake, oral supplements, and multivitamin after d/c. Celiac r/o, MEL and ferritin elevated. Per MD, pt may be candidate for liver transplant. We will continue to monitor PO intake, wt, labs every five days.
[2020-04-19 14:00] VITALS: BP 135/81; PULSE 93; RESP 18; TEMP 36.3; O2SAT 96
[2020-04-19] MEDS: SPIRONOLACTONE 50 MG TABLET PO (15:01)
[2020-04-19] MEDS: FUROSEMIDE 20 MG TABLET PO (15:01)
--- NOTE | 2020-04-19 15:06 | WPDGIPROGNO ---
Progress Note: A&P Assessment and Plan (1) Decompensation of cirrhosis of liver: Code(s): K72.90 - Hepatic failure, unspecified without coma; K74.60 - Unspecified cirrhosis of liver Status: Acute Assessment and Plan: with ascites, today removed 1.3 L discuss at length importance of 2g Na diet, also follow up with his ham boner at [facility] to discuss snf management and even consideration for liver transplant evaluation if he is feeling better then tomorrow can go home (2) Ascites: Code(s): R18.8 - Other ascites Status: Acute Assessment and Plan: recurrent ascites will increase diuretics to 150mg aldactone and 60mg lasix daily, renal function and lytes ok 2g na diet no SBP, less pain which improved after paracentesis. he will make an appointment to see his ham boner MELD score 8 (3) Portal hypertensive gastropathy: Code(s): K76.6 - Portal hypertension; K31.89 - Other diseases of stomach and duodenum Status: Acute Assessment and Plan: by egd, pending albumin in fluid (4) Thrombocytopenia: Code(s): D69.6 - Thrombocytopenia, unspecified Status: Acute (5) Abdominal pain: Code(s): R10.9 - Unspecified abdominal pain Status: Acute (6) Elevated liver enzymes: Code(s): R74.8 - Abnormal levels of other serum enzymes Status: Acute (7) Diarrhea: Code(s): R19.7 - Diarrhea, unspecified Status: Acute Subjective Date/time seen: 04/19/20 15:06 Interval history: had trouble emptying bladder today and RN removed about 15 cc after cath. Also had 1.3 L removed today by paracentesis and feeling better. Review of Systems Review of Systems: All systems reviewed & are unremarkable except as noted in HPI and below Exam Const: General: no acute distress Other: chronically ill appearing HENMT: General nose exam: Normal nares present Eyes: General: appearance normal, both eyes and all related structures Neck: Neck: supple and no JVD Resp: Auscultation: clear to auscultation bilaterally Cardio: Rate: regular rate Rhythm: regular rhythm GI: GI Palp: Yes Soft to palpation and Yes Tenderness to palpation present (GI) (less ttp today, no rebound) Percussion: Yes Fluid wave present (improved after paracentesis.) Auscultation: normal bowel sounds Skin: General skin exam: normal color Neuro: Speech: normal speech Motor exam (neuro): Normal motor muscle tone present throughout Extrem: General: normal to inspection Psych: Mental Status: mental status grossly normal Objective Data Vital Signs Vital Signs: Vital Signs - 24 hr 04/18/20 20:00 04/18/20 22:00 04/19/20 06:00 Temperature 98.3 F 98.6 F Pulse Rate 99 99 74 Respiratory Rate 18 18 20 Blood Pressure 121/73 122/82 Pulse Oximetry 96 96 96 04/19/20 08:00 04/19/20 10:13 Temperature Pulse Rate 74 Respiratory Rate 20 Blood Pressure Pulse Oximetry 92 92 Intake/Output Intake/Output: Intake & Output 04/16/20 04/17/20 04/18/20 04/19/20 23:59 23:59 23:59 23:59 Intake Total 1510 1090 200 Output Total 4688 724 1538 Balance 210 920 -1500 Meds/Results Medications: Active Medications Generic Name Dose Route Start Last Admin Trade Name Freq PRN Reason Stop Dose Admin Hydrocodone Bitart/Acetaminophen 1 tab 04/19/20 13:26 Hydrocodone/Acetaminophen (*Crx) 5-325 Mg Tablet PO Q4H PRN Pain Rated 6 or Greater Cholestyramine Resin 4 gm 04/18/20 09:00 04/19/20 10:26 Cholestyramine (W/ Sugar) 4 Gm Powd.Pack PO 05/18/20 09:01 4 gm BID FORTINO Administration Dicyclomine HCl 20 mg 04/18/20 09:00 04/19/20 10:24 Dicyclomine Hcl 10 Mg Capsule PO 20 mg QID FORTINO Administration Furosemide 60 mg 04/20/20 09:00 Furosemide 20 Mg Tablet PO QAM FORTINO Melatonin 3 mg 04/18/20 22:40 04/18/20 23:13 Melatonin 3 Mg Tablet PO 3 mg HS FORTINO Administration Ondansetron HCl 4 mg 04/17/20 12:40 04/18/20 1
[2020-04-19] MEDS: TAMSULOSIN HCL 0.4 MG CAPSULE PO (15:41)
[2020-04-19] MEDS: MELATONIN 3 MG TABLET PO (20:20)
[2020-04-19 22:00] VITALS: BP 130/81; PULSE 93; RESP 20; TEMP 36.7; O2SAT 93
[2020-04-20 06:00] VITALS: BP 112/75; PULSE 85; RESP 20; TEMP 36.3; O2SAT 97
[2020-04-20] MEDS: ONDANSETRON INJ 4 MG/2 ML VIAL IV PUSH (06:12)
[2020-04-20] MEDS: HYDROcodone/acetaminophen (*CRX) 5-325 MG TABLET 1 TAB PO ×5 (06:17→16:10)
[2020-04-20 06:28] LABS: Hematocrit 34.6 % (42.0-52.0); Hemoglobin 11.5 g/dL (14.0-18.0); Immature Platelet Fraction Pct 5.7 % (0.9-11.2); Mean Corpuscular HGB Conc 33.2 g/dl (32-36); Mean Corpuscular Hemoglobin 33.9 pg (26-34); Mean Corpuscular Volume 102.1 fl (80-100); Mean Platelet Volume 10.6 fl (7.4-10.4); Platelet Count Result 94 k/mm3 (150-375); Red Blood Count 3.39 M/mm3 (4.6-6.20); Red Cell Distribution Width 12.4 % (11.5-14.5); White Blood Count 2.5 K/mm3 (4.5-10.0)
[2020-04-20 06:44] LABS: Alanine Aminotransferase 10 U/L (4-50); Albumin Level 2.6 g/dL (3.5-5.1); Alkaline Phosphatase 210 U/L (38-126); Anion Gap 1 mmol/L (8-16); Aspartate Amino Transferase 42 U/L (17-59); Bilirubin,Total 0.9 mg/dL (0.2-1.3); Blood Urea Nitrogen 6 mg/dL (9-20); Calcium 8.6 mg/dL (8.4-10.2); Carbon Dioxide 33 mmol/L (22-30); Chloride 100 mmol/L (98-107); Estimated CRCL calculation 96 ml/min; Estimated Glomerular Filt Rate > 60; Glucose 109 mg/dL (75-110); Magnesium 1.8 mg/dL (1.6-2.3); Potassium 4.3 mmol/L (3.4-5.0); Sodium 134 mmol/L (137-145)
[2020-04-20 07:18] LABS: Albumin Peritoneal Fluid 0.3 g/dL
[2020-04-20 08:00] VITALS: PULSE 85; RESP 20; O2SAT 97
[2020-04-20] MEDS: DICYCLOMINE HCL 10 MG CAPSULE 20 MG PO ×4 (09:06→20:54)
[2020-04-20] MEDS: SIMETHICONE 125 MG CHEW TAB PO ×4 (09:06→20:54)
[2020-04-20] MEDS: FUROSEMIDE 20 MG TABLET 60 MG PO (09:07)
[2020-04-20] MEDS: SPIRONOLACTONE 50 MG TABLET 150 MG PO (09:07)
[2020-04-20] MEDS: CHOLESTYRAMINE (W/ SUGAR) 4 GM POWD.PACK PO ×2 (09:08→17:36)
[2020-04-20] MEDS: PANTOPRAZOLE 40 MG TABLET PO (09:08)
[2020-04-20] MEDS: TAMSULOSIN HCL 0.4 MG CAPSULE PO (09:08)
[2020-04-20 14:00] VITALS: BP 119/73; PULSE 81; RESP 18; TEMP 36.1; O2SAT 98
--- NOTE | 2020-04-20 15:30 | WPDGIPROGNO ---
Progress Note: A&P Assessment and Plan (1) Decompensation of cirrhosis of liver: Code(s): K72.90 - Hepatic failure, unspecified without coma; K74.60 - Unspecified cirrhosis of liver Status: Acute Assessment and Plan: with ascites, it has been drained x3 discuss at length importance of 2g Na diet, yesterday increased aldactone to 150mg and lasix 60mg- renal function and lytes ok (he may benefit later on from TIPS if refractory ascites) patient prefers to be transferred to [facility] with his scallop cutter machine (work up in progress ? anny, ROSEMARY, etc), primary team working in transfer MRI liver cirrhosis with ascites, no liver lesions. (2) Ascites: Code(s): R18.8 - Other ascites Status: Acute Assessment and Plan: no SBP, less pain which improved after paracentesis. MELD score ~ 8 SAAG >1.1 c/w PH (3) Portal hypertensive gastropathy: Code(s): K76.6 - Portal hypertension; K31.89 - Other diseases of stomach and duodenum Status: Acute Assessment and Plan: by egd and SAAG (4) Thrombocytopenia: Code(s): D69.6 - Thrombocytopenia, unspecified Status: Acute (5) Abdominal pain: Code(s): R10.9 - Unspecified abdominal pain Status: Acute (6) Elevated liver enzymes: Code(s): R74.8 - Abnormal levels of other serum enzymes Status: Acute Assessment and Plan: stable (7) Diarrhea: Code(s): R19.7 - Diarrhea, unspecified Status: Acute Assessment and Plan: chronic, egd and colonoscopy no major findings Subjective Date/time seen: 04/20/20 15:30 Interval history: still bloated but less abdominal pain, poor appetite but no nausea. Review of Systems Review of Systems: All systems reviewed & are unremarkable except as noted in HPI and below Exam Const: General: no acute distress Other: chronically ill appearing HENMT: General nose exam: Normal nares present Eyes: General: appearance normal, both eyes and all related structures Neck: Neck: supple and no JVD Resp: Auscultation: clear to auscultation bilaterally Cardio: Rate: regular rate Rhythm: regular rhythm GI: GI Palp: Yes Soft to palpation and Yes Tenderness to palpation present (GI) (less ttp, no rebound) Percussion: Yes Fluid wave present (improved after paracentesis.) Auscultation: normal bowel sounds Skin: General skin exam: normal color Neuro: Speech: normal speech Motor exam (neuro): Normal motor muscle tone present throughout Extrem: General: normal to inspection Psych: Mental Status: mental status grossly normal Objective Data Vital Signs Vital Signs: Vital Signs - 24 hr 04/19/20 22:00 04/20/20 06:00 04/20/20 08:00 Temperature 98.1 F 97.4 F L Pulse Rate 93 85 85 Respiratory Rate 20 20 20 Blood Pressure 130/81 112/75 Pulse Oximetry 93 97 97 04/20/20 14:00 Temperature 97.0 F L Pulse Rate 81 Respiratory Rate 18 Blood Pressure 119/73 Pulse Oximetry 98 Intake/Output Intake/Output: Intake & Output 04/17/20 04/18/20 04/19/20 04/20/20 23:59 23:59 23:59 23:59 Intake Total 1510 1090 920 580 Output Total 5762 861 5237 250 Balance 210 920 -880 330 Meds/Results Medications: Active Medications Generic Name Dose Route Start Last Admin Trade Name Freq PRN Reason Stop Dose Admin Hydrocodone Bitart/Acetaminophen 1 tab 04/19/20 13:26 04/20/20 09:12 Hydrocodone/Acetaminophen (*Crx) 5-325 Mg Tablet PO 1 tab Q4H PRN Administration Pain Rated 6 or Greater Cholestyramine Resin 4 gm 04/18/20 09:00 04/20/20 09:08 Cholestyramine (W/ Sugar) 4 Gm Powd.Pack PO 05/18/20 09:01 4 gm BID FORTINO Administration Dicyclomine HCl 20 mg 04/18/20 09:00 04/20/20 12:04 Dicyclomine Hcl 10 Mg Capsule PO 20 mg QID FORTINO Administration Furosemide 60 mg 04/20/20 09:00 04/20/20 09:07 Furosemide 20 Mg Tablet PO 60 mg QAM FORTINO Administration Melatonin 3 mg 04/18/20 22:40 04/19/20 20:20 Melatonin 3 Mg Tablet PO
--- NOTE | 2020-04-20 16:27 | PM.TDS ---
Transfer Discharge Sum: Prov Provider Date of admission: 04/19/20 15:31 Primary care physician: PRENATAL NURSE PHYSICIAN Admitting clinician: Jose Gonzalez MD Consults: 04/17/20 Consult to Physician Routine Comment: Consulting Provider: Shon Duran Reason for consultation: cirrhosis with ascites Has provider been notified: Yes DS: Admitting Diagnosis Admitting Diagnosis Admitting Diagnosis: Abdominal pain and recurrent ascites. DS: Discharge Diagnosis Discharge Diagnosis (1) Cirrhosis of liver with ascites: Code(s): K74.60 - Unspecified cirrhosis of liver; R18.8 - Other ascites Status: Inactive Assessment and Plan: Date of Admission 04/17/20 Date of Service 04/20/20 Mr. Worley is a pleasant 50yo M recently diagnosed with cirrhosis who presented to the ED for evaluation of abdominal pain and recurrent ascites. He has been followed by Gastroenterology, Dr. Claros, and has recently seen a companion caregiver at [facility], Dr Billie Medrano. He is seen here for decompensated hepatic cirrhosis with recurring ascites. He has undergone paracentesis 04/16/20 from ED prior to arrival where 4350mL cloudy yellow fluid was removed; again 04/17/20 which yielded 1350mL of cloudy yellow fluid, and another paracentesis 04/19/20 which yielded another 1350mL clear yellow fluid. Peritoneal fluid culture shows no growth of any bacteria. MRI of abdomen 04/18/20 shows cirrhosis of the liver with moderate ascites. He has been treated with oral Lasix and spironolactone, which were increased during this admission to 60 mg daily and 150 mg daily respectively. He again woke this morning with abdominal discomfort due to quickly reaccumulating ascites. Patient is interested in transfer to [facility] for evaluation by his hepatology team. I have discussed the case with Dr Khan, fellow for Dr Yfn Jerome who has accepted the patient in transfer to [facility] under care of the hepatology service. I have discussed with the patient the wait times for a bed at [facility] may require him to stay at our facility for another 1 to 2 days. He verbalizes understanding and wishes to proceed with transfer to [facility]. He is hemodynamically stable for transfer on 04/20/20 should a bed become available tonight. Latest vital signs are as follows: Last Vital Signs Temp 97.0 F L 04/20/20 14:00 Pulse 81 04/20/20 14:00 Resp 18 04/20/20 14:00 BP 119/73 04/20/20 14:00 Pulse Ox 98 04/20/20 14:00 The patient has been admitted to the hospitalist service for further treatment and evaluation of reaccumulation of ascites and abdominal pain. He is status post paracentesis which yielded 1350 mL of cloudy yellow fluid 04/17, and again today that yielded 1350 mL clear yellow fluid (therapeutic). Given his abdominal pain there were concerns for SBP however peritoneal fluid and preliminary paracentesis fluid culture is not consistent with such. MRI of abdomen shows cirrhosis of liver and mod ascites 04/18/20. Patient making very little urine despite increase in diuretic. Will continue Spironolactone 150 mg daily and Lasix 60 mg daily per GI rec. Bladder scan PRN to assess for retention given low urine output. GI, Dr. Claros following - appreciate input. (2) Abdominal pain: Code(s): R10.9 - Unspecified abdominal pain Status: Acute Assessment and Plan: Likely due to recurring ascites. SBP less likely. Please see above. (3) Hypertension: Code(s): I10 - Essential (primary) hypertension Status: Chronic Assessment and Plan: BP stable, last 119/73. Monitor BP, continue spironolactone and Lasix. (4) Gastroesophageal reflux disease: Code(s): K21.9 - Gastro-esophageal reflux disease without esophagitis Status: Inactive Assessment and Plan: No acute issues. Continue PPI.
[2020-04-20] MEDS: oxyCODONE/ACETAMINOPHEN (*CRX) 5-325 MG TABLET 1 TABLET PO ×2 (17:37→21:51)
[2020-04-20] MEDS: MELATONIN 3 MG TABLET PO (20:54)
[2020-04-20 22:00] VITALS: BP 141/84; PULSE 100; RESP 16; TEMP 36.2; O2SAT 99
[2020-04-21] MEDS: oxyCODONE/ACETAMINOPHEN (*CRX) 5-325 MG TABLET 1 TABLET PO ×6 (01:54→23:05)
[2020-04-21 06:00] VITALS: BP 116/76; PULSE 88; RESP 18; TEMP 36.2; O2SAT 97
[2020-04-21 07:17] LABS: Basophils Percent Auto 0.3 % (0.2-1.2); Eosinophils Percent Auto 1.3 % (0-4.4); Hematocrit 37.3 % (42.0-52.0); Hemoglobin 12.4 g/dL (14.0-18.0); Lymphocytes Absolute Auto 1.12 K/mm3 (0.9-3.2); Mean Corpuscular HGB Conc 33.2 g/dl (32-36); Mean Corpuscular Hemoglobin 33.9 pg (26-34); Mean Corpuscular Volume 101.9 fl (80-100); Mean Platelet Volume 10.7 fl (7.4-10.4); Monocytes Absolute Auto 0.4 K/mm3 (0.1-0.6); Monocytes Percent Auto 13.8 % (2.6-8.5); Neutrophils Absolute Auto 1.5 K/mm3 (1.3-6.7); Neutrophils Percent Auto 48.6 % (45.5-73.1); Platelet Count Result 112 k/mm3 (150-375); Red Blood Count 3.66 M/mm3 (4.6-6.20); Red Cell Distribution Width 12.3 % (11.5-14.5); White Blood Count 3.1 K/mm3 (4.5-10.0)
[2020-04-21 07:22] LABS: Alanine Aminotransferase 9 U/L (4-50); Alkaline Phosphatase 189 U/L (38-126); Anion Gap 0 mmol/L (8-16); Aspartate Amino Transferase 37 U/L (17-59); Bilirubin,Total 0.7 mg/dL (0.2-1.3); Blood Urea Nitrogen 7 mg/dL (9-20); Calcium 8.6 mg/dL (8.4-10.2); Carbon Dioxide 34 mmol/L (22-30); Chloride 100 mmol/L (98-107); Estimated CRCL calculation 85 ml/min; Estimated Glomerular Filt Rate > 60; Glucose 92 mg/dL (75-110); Magnesium 1.9 mg/dL (1.6-2.3); Potassium 4.5 mmol/L (3.4-5.0); Sodium 134 mmol/L (137-145)
[2020-04-21] MEDS: DICYCLOMINE HCL 10 MG CAPSULE 20 MG PO ×4 (09:49→20:29)
[2020-04-21] MEDS: CHOLESTYRAMINE (W/ SUGAR) 4 GM POWD.PACK PO ×2 (09:49→18:03)
[2020-04-21] MEDS: SPIRONOLACTONE 50 MG TABLET 150 MG PO (09:50)
[2020-04-21] MEDS: TAMSULOSIN HCL 0.4 MG CAPSULE PO (09:50)
[2020-04-21] MEDS: SIMETHICONE 125 MG CHEW TAB PO ×4 (09:50→20:29)
[2020-04-21] MEDS: FUROSEMIDE 20 MG TABLET 60 MG PO (09:50)
[2020-04-21] MEDS: PANTOPRAZOLE 40 MG TABLET PO (09:50)
--- NOTE | 2020-04-21 10:35 | PM.IMPN ---
Progress Note: A&P Assessment and Plan (1) Cirrhosis of liver with ascites: Code(s): K74.60 - Unspecified cirrhosis of liver; R18.8 - Other ascites Status: Inactive Assessment and Plan: Transfer note from 04/20/20: Date of Admission 04/17/20 Date of Service 04/20/20 Mr. Worley is a pleasant 50yo M recently diagnosed with cirrhosis who presented to the ED for evaluation of abdominal pain and recurrent ascites. He has been followed by Gastroenterology, Dr. Claros, and has recently seen a state federal relations deputy director at [facility], Dr Billie Medrano. He is seen here for decompensated hepatic cirrhosis with recurring ascites. He has undergone paracentesis 04/16/20 from ED prior to arrival where 4350mL cloudy yellow fluid was removed; again 04/17/20 which yielded 1350mL of cloudy yellow fluid, and another paracentesis 04/19/20 which yielded another 1350mL clear yellow fluid. Peritoneal fluid culture shows no growth of any bacteria. MRI of abdomen 04/18/20 shows cirrhosis of the liver with moderate ascites. He has been treated with oral Lasix and spironolactone, which were increased during this admission to 60 mg daily and 150 mg daily respectively. He again woke this morning with abdominal discomfort due to quickly reaccumulating ascites. Patient is interested in transfer to [facility] for evaluation by his hepatology team. I have discussed the case with Dr Khan, fellow for Dr Yfn Jerome who has accepted the patient in transfer to [facility] under care of the hepatology service. I have discussed with the patient the wait times for a bed at [facility] may require him to stay at our facility for another 1 to 2 days. He verbalizes understanding and wishes to proceed with transfer to [facility]. He is hemodynamically stable for transfer on 04/20/20 should a bed become available tonight. The patient has been admitted to the hospitalist service for further treatment and evaluation of reaccumulation of ascites and abdominal pain. He is status post paracentesis which yielded 1350 mL of cloudy yellow fluid 04/17, and 04/19 that yielded 1350 mL clear yellow fluid (therapeutic). Given his abdominal pain there were concerns for SBP however peritoneal fluid and preliminary paracentesis fluid culture is not consistent with such. MRI of abdomen shows cirrhosis of liver and mod ascites 04/18/20. Patient making very little urine despite increase in diuretic. Flomax has been added to his regimen. He has been accepted for transfer to [facility], however awaiting bed availability as noted above. Will continue Spironolactone 150 mg daily and Lasix 60 mg daily per GI rec.\ GI, Dr. Claros following - appreciate input. (2) Abdominal pain: Code(s): R10.9 - Unspecified abdominal pain Status: Acute Assessment and Plan: Likely due to recurring ascites. SBP less likely. Please see above. (3) Hypertension: Code(s): I10 - Essential (primary) hypertension Status: Chronic Assessment and Plan: BP stable, last 116/76. Monitor BP, continue spironolactone and Lasix. (4) Gastroesophageal reflux disease: Code(s): K21.9 - Gastro-esophageal reflux disease without esophagitis Status: Inactive Assessment and Plan: No acute issues. Continue PPI. (5) Thrombocytopenia: Code(s): D69.6 - Thrombocytopenia, unspecified Status: Acute Assessment and Plan: Pancytopenia, suspect secondary to hepatic failure. Monitor CBC. Subjective Date/time seen: 04/21/20 10:35 Interval history: Patient is a pleasant 50-year-old male recently diagnosed with cirrhosis who is seen in follow up for cirrhosis with ascites. Patient states his pain is a bit worse today; he states his current regimen is not helping his pain much. He has increased distension as well. He is awaiting a bed to
[2020-04-21] MEDS: MORPHINE SULFATE (*CRX) 2 MG/ML INJ IV PUSH ×3 (11:36→20:29)
--- NOTE | 2020-04-21 13:02 | WPDGIPROGNO ---
Progress Note: A&P Assessment and Plan (1) Decompensation of cirrhosis of liver: Code(s): K72.90 - Hepatic failure, unspecified without coma; K74.60 - Unspecified cirrhosis of liver Status: Acute Assessment and Plan: with ascites, it has been drained x3 discuss at length importance of 2g Na diet continue aldactone to 150mg and lasix 60mg- renal function and lytes still ok (he may benefit later on from TIPS if refractory ascites but still room to increase his diuretics) awaiting for bed in [facility] under hepatology team (work up in progress ? anny, ROSEMARY, etc), primary team working in transfer MRI liver cirrhosis with ascites, no liver lesions. (2) Ascites: Code(s): R18.8 - Other ascites Status: Acute Assessment and Plan: no SBP, less pain which improved after paracentesis. MELD score ~ 8 SAAG >1.1 c/w PH (3) Portal hypertensive gastropathy: Code(s): K76.6 - Portal hypertension; K31.89 - Other diseases of stomach and duodenum Status: Acute Assessment and Plan: by egd and SAAG (4) Thrombocytopenia: Code(s): D69.6 - Thrombocytopenia, unspecified Status: Acute Assessment and Plan: from cirrhosis (5) Abdominal pain: Code(s): R10.9 - Unspecified abdominal pain Status: Acute Assessment and Plan: no sbp (6) Elevated liver enzymes: Code(s): R74.8 - Abnormal levels of other serum enzymes Status: Acute Assessment and Plan: stable (7) Diarrhea: Code(s): R19.7 - Diarrhea, unspecified Status: Acute Assessment and Plan: chronic, egd and colonoscopy no major findings Subjective Date/time seen: 04/21/20 13:02 Interval history: still with some abdominal distension which is unchanged, awaiting [facility] bed Review of Systems Review of Systems: All systems reviewed & are unremarkable except as noted in HPI and below Exam Const: General: no acute distress Other: chronically ill appearing HENMT: General nose exam: Normal nares present Eyes: General: appearance normal, both eyes and all related structures Neck: Neck: supple and no JVD Resp: Auscultation: clear to auscultation bilaterally Cardio: Rate: regular rate Rhythm: regular rhythm GI: GI Palp: Yes Soft to palpation, Yes Tenderness to palpation present (GI) (less ttp, no rebound) and No Guarding due to palpation present (GI) Percussion: Yes Fluid wave present Auscultation: normal bowel sounds Skin: General skin exam: normal color Neuro: Speech: normal speech Motor exam (neuro): Normal motor muscle tone present throughout Extrem: General: normal to inspection Psych: Mental Status: mental status grossly normal Objective Data Vital Signs Vital Signs: Vital Signs - 24 hr 04/20/20 14:00 04/20/20 22:00 04/21/20 06:00 Temperature 97.0 F L 97.2 F L 97.2 F L Pulse Rate 81 100 88 Respiratory Rate 18 16 18 Blood Pressure 119/73 141/84 H 116/76 Pulse Oximetry 98 99 97 Intake/Output Intake/Output: Intake & Output 04/18/20 04/19/20 04/20/20 04/21/20 23:59 23:59 23:59 23:59 Intake Total 9638 142 3141 760 Output Total 170 1800 500 150 Balance 920 -880 525 610 Meds/Results Medications: Active Medications Generic Name Dose Route Start Last Admin Trade Name Freq PRN Reason Stop Dose Admin Cholestyramine Resin 4 gm 04/18/20 09:00 04/21/20 09:49 Cholestyramine (W/ Sugar) 4 Gm Powd.Pack PO 05/18/20 09:01 4 gm BID FORTINO Administration Dicyclomine HCl 20 mg 04/18/20 09:00 04/21/20 09:49 Dicyclomine Hcl 10 Mg Capsule PO 20 mg QID FORTINO Administration Furosemide 60 mg 04/20/20 09:00 04/21/20 09:50 Furosemide 20 Mg Tablet PO 60 mg QAM FORTINO Administration Melatonin 3 mg 04/18/20 22:40 04/20/20 20:54 Melatonin 3 Mg Tablet PO 3 mg HS FORTINO Administration Morphine Sulfate 2 mg 04/21/20 09:59 04/21/20 11:36 Morphine Sulfate (*Crx) 2 Mg/Ml Inj IV PUSH 2 mg Q4H PRN Administration
[2020-04-21 14:00] VITALS: BP 134/81; PULSE 108; RESP 18; TEMP 36.3; O2SAT 96
[2020-04-21] MEDS: MELATONIN 3 MG TABLET PO (20:29)
[2020-04-21 22:00] VITALS: BP 126/86; PULSE 108; RESP 16; TEMP 36.3; O2SAT 98
[2020-04-22] MEDS: MORPHINE SULFATE (*CRX) 2 MG/ML INJ IV PUSH ×5 (01:58→20:41)
[2020-04-22] MEDS: oxyCODONE/ACETAMINOPHEN (*CRX) 5-325 MG TABLET 1 TABLET PO ×5 (04:33→22:40)
[2020-04-22 06:00] VITALS: BP 107/68; PULSE 97; RESP 18; TEMP 36.7; O2SAT 95
[2020-04-22 06:39] LABS: Basophils Percent Auto 0.6 % (0.2-1.2); Eosinophils Percent Auto 1.3 % (0-4.4); Hematocrit 36.6 % (42.0-52.0); Hemoglobin 12.1 g/dL (14.0-18.0); Immature Granulocyte Absolute 0.01 K/mm3 (0.00-0.031); Immature Granulocyte Percent A 0.3 % (0-0.5); Immature Platelet Fraction Pct 4.8 % (0.9-11.2); Lymphocytes Absolute Auto 1.11 K/mm3 (0.9-3.2); Lymphocytes Percent Auto 35.6 % (18.3-44.2); Mean Corpuscular HGB Conc 33.1 g/dl (32-36); Mean Corpuscular Volume 102.8 fl (80-100); Mean Platelet Volume 10.2 fl (7.4-10.4); Monocytes Absolute Auto 0.5 K/mm3 (0.1-0.6); Neutrophils Absolute Auto 1.4 K/mm3 (1.3-6.7); Neutrophils Percent Auto 45.2 % (45.5-73.1); Platelet Count Result 139 k/mm3 (150-375); Red Blood Count 3.56 M/mm3 (4.6-6.20); Red Cell Distribution Width 12.5 % (11.5-14.5); White Blood Count 3.1 K/mm3 (4.5-10.0)
[2020-04-22 06:49] LABS: Alanine Aminotransferase 9 U/L (4-50); Alkaline Phosphatase 180 U/L (38-126); Anion Gap 5 mmol/L (8-16); Aspartate Amino Transferase 35 U/L (17-59); Bilirubin,Total 0.7 mg/dL (0.2-1.3); Blood Urea Nitrogen 7 mg/dL (9-20); Calcium 8.8 mg/dL (8.4-10.2); Carbon Dioxide 32 mmol/L (22-30); Chloride 96 mmol/L (98-107); Estimated CRCL calculation 85 ml/min; Estimated Glomerular Filt Rate > 60; Glucose 124 mg/dL (75-110); Magnesium 1.9 mg/dL (1.6-2.3); Potassium 4.4 mmol/L (3.4-5.0); Sodium 133 mmol/L (137-145)
[2020-04-22] MEDS: CHOLESTYRAMINE (W/ SUGAR) 4 GM POWD.PACK PO ×2 (08:31→18:03)
[2020-04-22] MEDS: DICYCLOMINE HCL 10 MG CAPSULE 20 MG PO ×4 (08:31→20:41)
[2020-04-22] MEDS: FUROSEMIDE 20 MG TABLET 60 MG PO (08:32)
[2020-04-22] MEDS: SIMETHICONE 125 MG CHEW TAB PO ×4 (08:32→20:41)
[2020-04-22] MEDS: SPIRONOLACTONE 50 MG TABLET 150 MG PO (08:32)
[2020-04-22] MEDS: TAMSULOSIN HCL 0.4 MG CAPSULE PO (08:33)
[2020-04-22] MEDS: PANTOPRAZOLE 40 MG TABLET PO (08:33)
[2020-04-22 10:32] LABS: Amylase Peritoneal Fluid <10 U/L
--- NOTE | 2020-04-22 12:27 | WPDGIPROGNO ---
Progress Note: A&P Assessment and Plan (1) Decompensation of cirrhosis of liver: Code(s): K72.90 - Hepatic failure, unspecified without coma; K74.60 - Unspecified cirrhosis of liver Status: Acute Assessment and Plan: with ascites, it has been drained x3 discuss at length importance of 2g Na diet will increase aldactone to 200mg, continue lasix 60mg daily (he may benefit later on from TIPS if refractory ascites but still room to increase his diuretics)- kidney function and lytes ok awaiting for bed at [facility] hepatology team (work up in progress ? nany, ROSEMARY, etc) MRI liver cirrhosis with ascites, no liver lesions. (2) Ascites: Code(s): R18.8 - Other ascites Status: Acute Assessment and Plan: no SBP. MELD score ~ 8 SAAG >1.1 c/w PH (3) Portal hypertensive gastropathy: Code(s): K76.6 - Portal hypertension; K31.89 - Other diseases of stomach and duodenum Status: Acute (4) Thrombocytopenia: Code(s): D69.6 - Thrombocytopenia, unspecified Status: Acute Assessment and Plan: from cirrhosis (5) Abdominal pain: Code(s): R10.9 - Unspecified abdominal pain Status: Acute Assessment and Plan: no sbp (6) Elevated liver enzymes: Code(s): R74.8 - Abnormal levels of other serum enzymes Status: Acute Assessment and Plan: stable (7) Diarrhea: Code(s): R19.7 - Diarrhea, unspecified Status: Acute Assessment and Plan: chronic, egd and colonoscopy no major findings Subjective Date/time seen: 04/22/20 12:27 Interval history: no new issues, abdomen slightly more distended Review of Systems Review of Systems: All systems reviewed & are unremarkable except as noted in HPI and below Exam Const: General: no acute distress Other: chronically ill appearing HENMT: General nose exam: Normal nares present Eyes: General: appearance normal, both eyes and all related structures Neck: Neck: supple and no JVD Resp: Auscultation: clear to auscultation bilaterally Cardio: Rate: regular rate Rhythm: regular rhythm GI: GI Palp: Yes Soft to palpation, Yes Tenderness to palpation present (GI) (minimally tender, no rebound) and No Guarding due to palpation present (GI) Percussion: Yes Fluid wave present Auscultation: normal bowel sounds Skin: General skin exam: normal color Neuro: Speech: normal speech Motor exam (neuro): Normal motor muscle tone present throughout Extrem: General: normal to inspection Psych: Mental Status: mental status grossly normal Objective Data Vital Signs Vital Signs: Vital Signs - 24 hr 04/21/20 14:00 04/21/20 22:00 04/22/20 06:00 Temperature 97.3 F L 97.3 F L 98.1 F Pulse Rate 108 H 108 H 97 Respiratory Rate 18 16 18 Blood Pressure 134/81 126/86 107/68 Pulse Oximetry 96 98 95 Intake/Output Intake/Output: Intake & Output 04/19/20 04/20/20 04/21/20 04/22/20 23:59 23:59 23:59 23:59 Intake Total 920 1025 1740 1000 Output Total 1800 500 550 450 Balance -495 669 9531 550 Meds/Results Medications: Active Medications Generic Name Dose Route Start Last Admin Trade Name Freq PRN Reason Stop Dose Admin Cholestyramine Resin 4 gm 04/18/20 09:00 04/22/20 08:31 Cholestyramine (W/ Sugar) 4 Gm Powd.Pack PO 05/18/20 09:01 4 gm BID FORTINO Administration Dicyclomine HCl 20 mg 04/18/20 09:00 04/22/20 08:31 Dicyclomine Hcl 10 Mg Capsule PO 20 mg QID FORTINO Administration Furosemide 60 mg 04/20/20 09:00 04/22/20 08:32 Furosemide 20 Mg Tablet PO 60 mg QAM FORTINO Administration Melatonin 3 mg 04/18/20 22:40 04/21/20 20:29 Melatonin 3 Mg Tablet PO 3 mg HS FORTINO Administration Morphine Sulfate 2 mg 04/21/20 09:59 04/22/20 11:16 Morphine Sulfate (*Crx) 2 Mg/Ml Inj IV PUSH 2 mg Q4H PRN Administration Breakthrough Pain Ondansetron HCl 4 mg 04/17/20 12:40 04/20/20 06:12 Ondansetron Inj 4 Mg/2 Ml Vial IV PUSH 4 mg Q4H PRN
--- NOTE | 2020-04-22 12:57 | PM.IMPN ---
Progress Note: A&P Assessment and Plan (1) Cirrhosis of liver with ascites: Code(s): K74.60 - Unspecified cirrhosis of liver; R18.8 - Other ascites Status: Inactive Assessment and Plan: Transfer note from 04/20/20: Date of Admission 04/17/20 Date of Service 04/20/20 Mr. Worley is a pleasant 50yo M recently diagnosed with cirrhosis who presented to the ED for evaluation of abdominal pain and recurrent ascites. He has been followed by Gastroenterology, Dr. Claros, and has recently seen a waste collection driver at [facility], Dr Billie Medrano. He is seen here for decompensated hepatic cirrhosis with recurring ascites. He has undergone paracentesis 04/16/20 from ED prior to arrival where 4350mL cloudy yellow fluid was removed; again 04/17/20 which yielded 1350mL of cloudy yellow fluid, and another paracentesis 04/19/20 which yielded another 1350mL clear yellow fluid. Peritoneal fluid culture shows no growth of any bacteria. MRI of abdomen 04/18/20 shows cirrhosis of the liver with moderate ascites. He has been treated with oral Lasix and spironolactone, which were increased during this admission to 60 mg daily and 150 mg daily respectively. He again woke this morning with abdominal discomfort due to quickly reaccumulating ascites. Patient is interested in transfer to [facility] for evaluation by his hepatology team. I have discussed the case with Dr Khan, fellow for Dr Yfn Jerome who has accepted the patient in transfer to [facility] under care of the hepatology service. I have discussed with the patient the wait times for a bed at [facility] may require him to stay at our facility for another 1 to 2 days. He verbalizes understanding and wishes to proceed with transfer to [facility]. He is hemodynamically stable for transfer on 04/20/20 should a bed become available tonight. The patient has been admitted to the hospitalist service for further treatment and evaluation of reaccumulation of ascites and abdominal pain. He is status post paracentesis which yielded 1350 mL of cloudy yellow fluid 04/17, and 04/19 that yielded 1350 mL clear yellow fluid (therapeutic). Given his abdominal pain there were concerns for SBP however peritoneal fluid not consistent with such; First preliminary paracentesis fluid culture is growing light peptostreptococcus species in anaerobic culture; discussed with Dr. Claros who will initiate antibiotics. MRI of abdomen shows cirrhosis of liver and mod ascites 04/18/20. Patient making more urine with increase in diuretic. Flomax has been added to his regimen. He has been accepted for transfer to [facility], however awaiting bed availability as noted above. Will continue Spironolactone 200 mg daily and Lasix 60 mg daily per GI rec. Antibiotics per GI recommendation GI, Dr. Claros following - appreciate input. (2) Abdominal pain: Code(s): R10.9 - Unspecified abdominal pain Status: Acute Assessment and Plan: Likely due to recurring ascites. SBP less likely. Please see above. (3) Hypertension: Code(s): I10 - Essential (primary) hypertension Status: Chronic Assessment and Plan: BP stable, last 107/68. Monitor BP, continue spironolactone and Lasix. (4) Gastroesophageal reflux disease: Code(s): K21.9 - Gastro-esophageal reflux disease without esophagitis Status: Inactive Assessment and Plan: No acute issues. Continue PPI. (5) Thrombocytopenia: Code(s): D69.6 - Thrombocytopenia, unspecified Status: Acute Assessment and Plan: Pancytopenia, suspect secondary to hepatic failure. Monitor CBC. Subjective Date/time seen: 04/22/20 12:57 Interval history: Patient is a pleasant 50-year-old male recently diagnosed with cirrhosis who is seen in follow up for cirrhosis with ascites. Patient states hi
[2020-04-22 14:00] VITALS: BP 120/77; PULSE 111; RESP 18; TEMP 36.3; O2SAT 97
[2020-04-22] MEDS: MELATONIN 3 MG TABLET PO (20:41)
[2020-04-22 22:00] VITALS: BP 121/76; PULSE 105; RESP 16; TEMP 36.7; O2SAT 95
[2020-04-23] MEDS: MORPHINE SULFATE (*CRX) 2 MG/ML INJ IV PUSH ×2 (02:12→06:41)
[2020-04-23] MEDS: oxyCODONE/ACETAMINOPHEN (*CRX) 5-325 MG TABLET 1 TABLET PO ×4 (04:30→18:09)
[2020-04-23 06:00] VITALS: BP 114/62; PULSE 91; RESP 16; TEMP 36.3; O2SAT 95
[2020-04-23 06:40] LABS: Basophils Percent Auto 0.6 % (0.2-1.2); Eosinophils Percent Auto 1.2 % (0-4.4); Hematocrit 34.9 % (42.0-52.0); Hemoglobin 11.5 g/dL (14.0-18.0); Immature Granulocyte Absolute 0.01 K/mm3 (0.00-0.031); Immature Granulocyte Percent A 0.3 % (0-0.5); Immature Platelet Fraction Pct 4.4 % (0.9-11.2); Lymphocytes Absolute Auto 1.12 K/mm3 (0.9-3.2); Lymphocytes Percent Auto 33.9 % (18.3-44.2); Mean Corpuscular Hemoglobin 33.6 pg (26-34); Mean Platelet Volume 10.2 fl (7.4-10.4); Monocytes Absolute Auto 0.6 K/mm3 (0.1-0.6); Monocytes Percent Auto 18.8 % (2.6-8.5); Neutrophils Absolute Auto 1.5 K/mm3 (1.3-6.7); Neutrophils Percent Auto 45.2 % (45.5-73.1); Platelet Count Result 148 k/mm3 (150-375); Red Blood Count 3.42 M/mm3 (4.6-6.20); Red Cell Distribution Width 12.6 % (11.5-14.5); White Blood Count 3.3 K/mm3 (4.5-10.0)
[2020-04-23 07:00] LABS: Alanine Aminotransferase 8 U/L (4-50); Alkaline Phosphatase 163 U/L (38-126); Anion Gap 4 mmol/L (8-16); Aspartate Amino Transferase 34 U/L (17-59); Bilirubin,Total 0.5 mg/dL (0.2-1.3); Blood Urea Nitrogen 8 mg/dL (9-20); Calcium 8.8 mg/dL (8.4-10.2); Carbon Dioxide 33 mmol/L (22-30); Chloride 96 mmol/L (98-107); Estimated CRCL calculation 85 ml/min; Estimated Glomerular Filt Rate > 60; Glucose 101 mg/dL (75-110); Potassium 4.3 mmol/L (3.4-5.0); Sodium 133 mmol/L (137-145)
[2020-04-23] MEDS: DICYCLOMINE HCL 10 MG CAPSULE 20 MG PO ×4 (08:37→20:44)
[2020-04-23] MEDS: SIMETHICONE 125 MG CHEW TAB PO ×4 (08:37→20:44)
[2020-04-23] MEDS: CHOLESTYRAMINE (W/ SUGAR) 4 GM POWD.PACK PO ×2 (08:37→18:10)
[2020-04-23] MEDS: FUROSEMIDE 20 MG TABLET 60 MG PO (08:37)
[2020-04-23] MEDS: PANTOPRAZOLE 40 MG TABLET PO (08:38)
[2020-04-23] MEDS: TAMSULOSIN HCL 0.4 MG CAPSULE PO (08:38)
[2020-04-23] MEDS: SPIRONOLACTONE 50 MG TABLET 200 MG PO (08:38)
--- NOTE | 2020-04-23 10:45 | PM.IMPN ---
Progress Note: A&P Assessment and Plan (1) Cirrhosis of liver with ascites: Code(s): K74.60 - Unspecified cirrhosis of liver; R18.8 - Other ascites Status: Inactive Assessment and Plan: Transfer note from 04/20/20: Date of Admission 04/17/20 Date of Service 04/20/20 Mr. Worley is a pleasant 50yo M recently diagnosed with cirrhosis who presented to the ED for evaluation of abdominal pain and recurrent ascites. He has been followed by Gastroenterology, Dr. Claros, and has recently seen a director of casino marketing at [facility], Dr Billie Medrano. He is seen here for decompensated hepatic cirrhosis with recurring ascites. He has undergone paracentesis 04/16/20 from ED prior to arrival where 4350mL cloudy yellow fluid was removed; again 04/17/20 which yielded 1350mL of cloudy yellow fluid, and another paracentesis 04/19/20 which yielded another 1350mL clear yellow fluid. Peritoneal fluid culture shows no growth of any bacteria. MRI of abdomen 04/18/20 shows cirrhosis of the liver with moderate ascites. He has been treated with oral Lasix and spironolactone, which were increased during this admission to 60 mg daily and 150 mg daily respectively. He again woke this morning with abdominal discomfort due to quickly reaccumulating ascites. Patient is interested in transfer to [facility] for evaluation by his hepatology team. I have discussed the case with Dr Khan, fellow for Dr Yfn Jerome who has accepted the patient in transfer to [facility] under care of the hepatology service. I have discussed with the patient the wait times for a bed at [facility] may require him to stay at our facility for another 1 to 2 days. He verbalizes understanding and wishes to proceed with transfer to [facility]. He is hemodynamically stable for transfer on 04/20/20 should a bed become available tonight. The patient has been admitted to the hospitalist service for further treatment and evaluation of reaccumulation of ascites and abdominal pain. He is status post paracentesis which yielded 1350 mL of cloudy yellow fluid 04/17, and 04/19 that yielded 1350 mL clear yellow fluid (therapeutic). Given his abdominal pain there were concerns for SBP however peritoneal fluid not consistent with such, although first preliminary paracentesis fluid culture is growing light peptostreptococcus species in anaerobic culture; discussed with Dr. Claros who initiated Rocephin. MRI of abdomen 04/18/20 showed cirrhosis of liver and mod ascites. Patient making more urine with increase in diuretic. Flomax has been added to his regimen. He has been accepted for transfer to [facility], however awaiting bed availability as noted above. Will continue Spironolactone 200 mg daily and Lasix 60 mg daily per GI rec. Antibiotics per GI recommendation. 2g Rocephin IV Q24 hr initiated 04/22 Will increase morphine to 3 mg Q4 due to increase distension/pain. Will defer repeat paracentesis to GI GI, Dr. Claros following - appreciate input. (2) Abdominal pain: Code(s): R10.9 - Unspecified abdominal pain Status: Acute Assessment and Plan: Likely due to recurring ascites. Please see above. (3) Hypertension: Code(s): I10 - Essential (primary) hypertension Status: Chronic Assessment and Plan: BP stable, last 114/62. Monitor BP, continue spironolactone and Lasix. (4) Gastroesophageal reflux disease: Code(s): K21.9 - Gastro-esophageal reflux disease without esophagitis Status: Inactive Assessment and Plan: No acute issues. Continue PPI. (5) Thrombocytopenia: Code(s): D69.6 - Thrombocytopenia, unspecified Status: Acute Assessment and Plan: Pancytopenia, suspect secondary to hepatic failure. Monitor CBC. Subjective Date/time seen: 04/23/20 10:45 Interval history: Patient is a ple
[2020-04-23] MEDS: MORPHINE SULFATE (*CRX) 2 MG/ML INJ 3 MG IV PUSH ×3 (11:03→20:45)
[2020-04-23 14:00] VITALS: BP 112/76; PULSE 106; RESP 18; TEMP 36.7; O2SAT 95
--- NOTE | 2020-04-23 15:47 | WPDGIPROGNO ---
Progress Note: A&P Assessment and Plan (1) Spontaneous bacterial peritonitis: Code(s): K65.2 - Spontaneous bacterial peritonitis Status: Acute Assessment and Plan: 04/16 ascitic fluid + Peptostreptococcus with 180 nucl cells but still started on rocephin, however 04/17 cultures negative probably will need another paracentesis to recheck fluid, plan for patient is to go to [facility] (2) Decompensation of cirrhosis of liver: Code(s): K72.90 - Hepatic failure, unspecified without coma; K74.60 - Unspecified cirrhosis of liver Status: Acute Assessment and Plan: with ascites, it has been drained x3 discuss at length importance of 2g Na diet he is on aldactone to 200mg and lasix 60mg daily MRI liver cirrhosis with ascites, no liver lesions. MELD score ~ 8 work up in progress (? anny, AIH, etc) (3) Portal hypertensive gastropathy: Code(s): K76.6 - Portal hypertension; K31.89 - Other diseases of stomach and duodenum Status: Acute (4) Thrombocytopenia: Code(s): D69.6 - Thrombocytopenia, unspecified Status: Acute Assessment and Plan: from cirrhosis (5) Abdominal pain: Code(s): R10.9 - Unspecified abdominal pain Status: Acute Assessment and Plan: now on antibiotics because positive culture in ascitic fluid (6) Elevated liver enzymes: Code(s): R74.8 - Abnormal levels of other serum enzymes Status: Acute Assessment and Plan: stable (7) Diarrhea: Code(s): R19.7 - Diarrhea, unspecified Status: Acute Assessment and Plan: chronic, egd and colonoscopy no major findings Subjective Date/time seen: 04/23/20 15:47 Interval history: no new changes, still abdominal discomfort because ascites Review of Systems Review of Systems: All systems reviewed & are unremarkable except as noted in HPI and below Exam Const: General: no acute distress Other: chronically ill appearing HENMT: General nose exam: Normal nares present Eyes: General: appearance normal, both eyes and all related structures Neck: Neck: supple and no JVD Resp: Auscultation: clear to auscultation bilaterally Cardio: Rate: regular rate Rhythm: regular rhythm GI: GI Palp: Yes Soft to palpation, Yes Tenderness to palpation present (GI) (minimally tender, no rebound) and No Guarding due to palpation present (GI) Percussion: Yes Fluid wave present Auscultation: normal bowel sounds Skin: General skin exam: normal color Neuro: Speech: normal speech Motor exam (neuro): Normal motor muscle tone present throughout Extrem: General: normal to inspection Psych: Mental Status: mental status grossly normal Objective Data Vital Signs Vital Signs: Vital Signs - 24 hr 04/22/20 22:00 04/23/20 06:00 Temperature 98.0 F 97.3 F L Pulse Rate 105 H 91 Respiratory Rate 16 16 Blood Pressure 121/76 114/62 Pulse Oximetry 95 95 Intake/Output Intake/Output: Intake & Output 04/20/20 04/21/20 04/22/20 04/23/20 23:59 23:59 23:59 23:59 Intake Total 1025 1740 2700 1350 Output Total 500 550 950 325 Balance 525 1190 1750 1025 Meds/Results Medications: Active Medications Generic Name Dose Route Start Last Admin Trade Name Freq PRN Reason Stop Dose Admin Cholestyramine Resin 4 gm 04/18/20 09:00 04/23/20 08:37 Cholestyramine (W/ Sugar) 4 Gm Powd.Pack PO 05/18/20 09:01 4 gm BID FORTINO Administration Dicyclomine HCl 20 mg 04/18/20 09:00 04/23/20 13:15 Dicyclomine Hcl 10 Mg Capsule PO 20 mg QID FORTINO Administration Furosemide 60 mg 04/20/20 09:00 04/23/20 08:37 Furosemide 20 Mg Tablet PO 60 mg QAM FORTINO Administration Ceftriaxone Sodium 2 gm in 100 mls @ 200 mls/hr 04/22/20 14:00 04/23/20 13:15 Rocephin 2 Gm/D5w 100 Ml IVPB 200 mls/hr Q24H FORTINO Administration Melatonin 3 mg 04/18/20 22:40 04/22/20 20:41 Melatonin 3 Mg Tablet PO 3 mg HS FORTINO Administration Morphine Sulfate 3 mg 04/23/20 10:45 1
[2020-04-23] MEDS: MELATONIN 3 MG TABLET PO (20:44)
[2020-04-23 22:00] VITALS: BP 119/76; PULSE 104; RESP 16; TEMP 36.8; O2SAT 98
[2020-04-24] MEDS: oxyCODONE/ACETAMINOPHEN (*CRX) 5-325 MG TABLET 1 TABLET PO ×5 (01:57→20:22)
[2020-04-24] MEDS: MORPHINE SULFATE (*CRX) 2 MG/ML INJ 3 MG IV PUSH ×5 (05:10→23:15)
[2020-04-24 06:00] VITALS: BP 113/70; PULSE 89; RESP 20; TEMP 36.6; O2SAT 100
[2020-04-24 06:27] LABS: Basophils Percent Auto 0.9 % (0.2-1.2); Eosinophils Absolute Auto 0.1 K/mm3 (0-0.3); Eosinophils Percent Auto 1.6 % (0-4.4); Hematocrit 35.6 % (42.0-52.0); Hemoglobin 11.7 g/dL (14.0-18.0); Immature Granulocyte Absolute 0.01 K/mm3 (0.00-0.031); Immature Granulocyte Percent A 0.3 % (0-0.5); Lymphocytes Absolute Auto 1.13 K/mm3 (0.9-3.2); Lymphocytes Percent Auto 35.1 % (18.3-44.2); Mean Corpuscular HGB Conc 32.9 g/dl (32-36); Mean Corpuscular Hemoglobin 33.2 pg (26-34); Mean Corpuscular Volume 101.1 fl (80-100); Mean Platelet Volume 9.8 fl (7.4-10.4); Monocytes Absolute Auto 0.6 K/mm3 (0.1-0.6); Monocytes Percent Auto 17.1 % (2.6-8.5); Neutrophils Absolute Auto 1.5 K/mm3 (1.3-6.7); Platelet Count Result 136 k/mm3 (150-375); Red Blood Count 3.52 M/mm3 (4.6-6.20); Red Cell Distribution Width 12.6 % (11.5-14.5); White Blood Count 3.2 K/mm3 (4.5-10.0)
[2020-04-24 06:38] LABS: Prothrombin Time 13.3 Seconds (11.1-14.7)
[2020-04-24 06:39] LABS: Partial Thromboplastin Time 34.9 SECONDS (22.3-36.8)
[2020-04-24 06:40] LABS: Alanine Aminotransferase 8 U/L (4-50); Alkaline Phosphatase 153 U/L (38-126); Anion Gap 4 mmol/L (8-16); Aspartate Amino Transferase 33 U/L (17-59); Bilirubin,Total 0.5 mg/dL (0.2-1.3); Blood Urea Nitrogen 9 mg/dL (9-20); Carbon Dioxide 32 mmol/L (22-30); Chloride 97 mmol/L (98-107); Estimated CRCL calculation 96 ml/min; Estimated Glomerular Filt Rate > 60; Glucose 139 mg/dL (75-110); Potassium 4.4 mmol/L (3.4-5.0); Sodium 133 mmol/L (137-145)
[2020-04-24] MEDS: SPIRONOLACTONE 50 MG TABLET 200 MG PO (08:25)
[2020-04-24] MEDS: PANTOPRAZOLE 40 MG TABLET PO (08:25)
[2020-04-24] MEDS: SIMETHICONE 125 MG CHEW TAB PO ×4 (08:25→20:22)
[2020-04-24] MEDS: TAMSULOSIN HCL 0.4 MG CAPSULE PO (08:26)
[2020-04-24] MEDS: FUROSEMIDE 20 MG TABLET 60 MG PO (08:26)
[2020-04-24] MEDS: DICYCLOMINE HCL 10 MG CAPSULE 20 MG PO ×4 (08:32→20:21)
[2020-04-24] MEDS: CHOLESTYRAMINE (W/ SUGAR) 4 GM POWD.PACK PO ×2 (08:33→18:07)
--- NOTE | 2020-04-24 10:40 | PCNFU ---
Nutrition Follow-Up Complete: Inadequate oral intake r/t early satiety as evidence by wt loss of 45 lbs in 3 months Goal: 50% Po intake of meals and supplements to halt further wt loss Progressing towards goal. We will continue current goal. Pt current nutrition is 2 gm Na. Nutrition recommendation:Agree Last recorded weight is 77 kg. Bowel Motility:+BM 04/23 Labs Reviewed:Glu 139,Na 133,Alb 3.0,Hgb 11.7,Hct 33.6 Meds Noted:Protonix,Flomax Additional Notes: Nutrition follow up. Patient is currently NPO for paracentesis today. He is distended. Transfer has been placed for [facility] when bed is available. He states to no diet concerns. He is receiving Ensure Enlive once daily providing an additional 350 kcals and 20 gms protein. Patient Instructions are attached to discharge instructions regarding 2 gm Na diet. Monitoring: PO intake, wt, labs every 5 days
--- NOTE | 2020-04-24 12:05 | PM.IMPN ---
Progress Note: A&P Assessment and Plan (1) Cirrhosis of liver with ascites: Code(s): K74.60 - Unspecified cirrhosis of liver; R18.8 - Other ascites Status: Inactive Assessment and Plan: Transfer note from 04/20/20: Date of Admission 04/17/20 Date of Service 04/20/20 Mr. Worley is a pleasant 50yo M recently diagnosed with cirrhosis who presented to the ED for evaluation of abdominal pain and recurrent ascites. He has been followed by Gastroenterology, Dr. Claros, and has recently seen a drywall taper at [facility], Dr Billie Medrano. He is seen here for decompensated hepatic cirrhosis with recurring ascites. He has undergone paracentesis 04/16/20 from ED prior to arrival where 4350mL cloudy yellow fluid was removed; again 04/17/20 which yielded 1350mL of cloudy yellow fluid, and another paracentesis 04/19/20 which yielded another 1350mL clear yellow fluid. Peritoneal fluid culture shows no growth of any bacteria. MRI of abdomen 04/18/20 shows cirrhosis of the liver with moderate ascites. He has been treated with oral Lasix and spironolactone, which were increased during this admission to 60 mg daily and 150 mg daily respectively. He again woke this morning with abdominal discomfort due to quickly reaccumulating ascites. Patient is interested in transfer to [facility] for evaluation by his hepatology team. I have discussed the case with Dr Khan, fellow for Dr Yfn Jerome who has accepted the patient in transfer to [facility] under care of the hepatology service. I have discussed with the patient the wait times for a bed at [facility] may require him to stay at our facility for another 1 to 2 days. He verbalizes understanding and wishes to proceed with transfer to [facility]. He is hemodynamically stable for transfer on 04/20/20 should a bed become available tonight. 04/24/20 The patient has been admitted to the hospitalist service for further treatment and evaluation of reaccumulation of ascites and abdominal pain. He is status post paracentesis which yielded 1350 mL of cloudy yellow fluid 04/17, and 04/19 that yielded 1350 mL clear yellow fluid (therapeutic). Given his abdominal pain there were concerns for SBP however peritoneal fluid not consistent with such, although first preliminary paracentesis fluid culture is growing light peptostreptococcus species in anaerobic culture; discussed with Dr. Claros who initiated Rocephin. MRI of abdomen 04/18/20 showed cirrhosis of liver and mod ascites. Patient making more urine with increase in diuretic. Flomax has been added to his regimen. He has been accepted for transfer to [facility], however awaiting bed availability as noted above. Underwent US guided paracentesis today yielding 700 ml clear yellow fluid Will continue Spironolactone 200 mg daily and Lasix 60 mg daily per GI rec. Antibiotics per GI recommendation. 2g Rocephin IV Q24 hr initiated 04/22 GI, Dr. Claros following - appreciate input. Still awaiting transfer to [facility] for evaluation by his drywall taper. (2) Abdominal pain: Code(s): R10.9 - Unspecified abdominal pain Status: Acute Assessment and Plan: Likely due to recurring ascites. Rated 12/22 today. Morphine as needed for abdominal distension/pain. (3) Hypertension: Code(s): I10 - Essential (primary) hypertension Status: Chronic Assessment and Plan: Blood pressure evaluated today and is stable at 113/70. Monitor BP, continue spironolactone and Lasix. (4) Gastroesophageal reflux disease: Code(s): K21.9 - Gastro-esophageal reflux disease without esophagitis Status: Inactive Assessment and Plan: No acute issues. Continue PPI. (5) Pancytopenia: Code(s): D61.818 - Other pancytopenia Status: Acute Assessment and Plan: Suspect secondary to hepatic failure. H&H stable with no signs of bleeding. Vital signs stable. Platelets improving. Monitor CBC daily Subjective Date/time seen: 04/24/20 12
[2020-04-24 14:00] VITALS: BP 125/86; PULSE 100; RESP 18; TEMP 36.8; O2SAT 93
[2020-04-24 15:26] LABS: Source Peritoneal Fluid Peritoneal Fluid
[2020-04-24 15:27] LABS: Appearance Peritoneal Fluid Hazy (Clear); Color Peritoneal Fluid Yellow (Colorless)
[2020-04-24 16:54] LABS: Nucleated Cells Peritoneal Flu 101 /uL (0-500); RBC Peritoneal Fluid 0 /uL (0-100000)
--- NOTE | 2020-04-24 17:05 | WPDGIPROGNO ---
Progress Note: A&P Assessment and Plan (1) Spontaneous bacterial peritonitis: Code(s): K65.2 - Spontaneous bacterial peritonitis Status: Acute Assessment and Plan: 04/16 ascitic fluid + Peptostreptococcus with 180 nucl cells but still started on rocephin, however 04/17 cultures negative. Repeat paracentesis today with only 100 cells on diuretics, plan for patient is to go to [facility] and possible evaluation of TIPS procedure (2) Decompensation of cirrhosis of liver: Code(s): K72.90 - Hepatic failure, unspecified without coma; K74.60 - Unspecified cirrhosis of liver Status: Acute Assessment and Plan: with ascites, it has been drained x4 discuss at length importance of 2g Na diet will increase aldactone to 250mg and continue lasix 60mg daily MRI liver cirrhosis with ascites, no liver lesions. MELD score ~ 8 work up in progress (? anny, AIH, etc) (3) Portal hypertensive gastropathy: Code(s): K76.6 - Portal hypertension; K31.89 - Other diseases of stomach and duodenum Status: Acute (4) Thrombocytopenia: Code(s): D69.6 - Thrombocytopenia, unspecified Status: Acute Assessment and Plan: from cirrhosis (5) Abdominal pain: Code(s): R10.9 - Unspecified abdominal pain Status: Acute Assessment and Plan: now on antibiotics because positive culture in ascitic fluid, abdominal pain better after paracentesis today (6) Elevated liver enzymes: Code(s): R74.8 - Abnormal levels of other serum enzymes Status: Acute Assessment and Plan: stable (7) Diarrhea: Code(s): R19.7 - Diarrhea, unspecified Status: Acute Assessment and Plan: chronic, egd and colonoscopy no major findings Subjective Date/time seen: 04/24/20 17:05 Interval history: feels better after 700 ml ascites removed Review of Systems Review of Systems: All systems reviewed & are unremarkable except as noted in HPI and below Exam Const: General: no acute distress Other: chronically ill appearing HENMT: General nose exam: Normal nares present Eyes: General: appearance normal, both eyes and all related structures Neck: Neck: supple and no JVD Resp: Auscultation: clear to auscultation bilaterally Cardio: Rate: regular rate Rhythm: regular rhythm GI: GI Palp: Yes Soft to palpation, Yes Tenderness to palpation present (GI) (minimally tender, no rebound) and No Guarding due to palpation present (GI) Percussion: Yes Fluid wave present Auscultation: normal bowel sounds Skin: General skin exam: normal color Neuro: Speech: normal speech Motor exam (neuro): Normal motor muscle tone present throughout Extrem: General: normal to inspection Psych: Mental Status: mental status grossly normal Objective Data Vital Signs Vital Signs: Vital Signs - 24 hr 04/23/20 22:00 04/24/20 06:00 Temperature 98.3 F 97.8 F Pulse Rate 104 H 89 Respiratory Rate 16 20 Blood Pressure 119/76 113/70 Pulse Oximetry 98 100 Intake/Output Intake/Output: Intake & Output 04/21/20 04/22/20 04/23/20 04/24/20 23:59 23:59 23:59 23:59 Intake Total 1740 2700 2560 1120 Output Total 550 615 028 5562 Balance 1190 1750 1960 -130 Meds/Results Medications: Active Medications Generic Name Dose Route Start Last Admin Trade Name Corazon PRN Reason Stop Dose Admin Cholestyramine Resin 4 gm 04/18/20 09:00 04/24/20 08:33 Cholestyramine (W/ Sugar) 4 Gm Powd.Pack PO 05/18/20 09:01 4 gm BID FORTINO Administration Dicyclomine HCl 20 mg 04/18/20 09:00 04/24/20 12:48 Dicyclomine Hcl 10 Mg Capsule PO 20 mg QID FORTINO Administration Furosemide 60 mg 04/20/20 09:00 04/24/20 08:26 Furosemide 20 Mg Tablet PO 60 mg QAM FORTINO Administration Ceftriaxone Sodium 2 gm in 100 mls @ 200 mls/hr 04/22/20 14:00 04/24/20 14:20 Rocephin 2 Gm/D5w 100 Ml IVPB Infused Q24H FORTINO Infusion Melatonin 3 mg 04/18/20 22:40 04/23/20 20:44 Melatonin 3 Mg Table
[2020-04-24 17:32] LABS: Lymphocytes Peritoneal Fluid 19 %; Macrophages Peritoneal Fluid 62 %; Mesothelial Cells Peritoneal Fluid 19 %
[2020-04-24] MEDS: MELATONIN 3 MG TABLET PO (20:21)
[2020-04-24 22:00] VITALS: BP 117/69; PULSE 113; RESP 16; TEMP 36.4; O2SAT 96
[2020-04-25] MEDS: oxyCODONE/ACETAMINOPHEN (*CRX) 5-325 MG TABLET 1 TABLET PO ×3 (04:01→17:50)
[2020-04-25 05:57] VITALS: BP 113/65; PULSE 90; RESP 16; TEMP 36.7; O2SAT 98
[2020-04-25 06:22] LABS: Basophils Percent Auto 1.2 % (0.2-1.2); Eosinophils Absolute Auto 0.1 K/mm3 (0-0.3); Eosinophils Percent Auto 2.2 % (0-4.4); Hematocrit 35.1 % (42.0-52.0); Hemoglobin 11.8 g/dL (14.0-18.0); Immature Granulocyte Absolute 0.02 K/mm3 (0.00-0.031); Immature Granulocyte Percent A 0.6 % (0-0.5); Lymphocytes Absolute Auto 1.21 K/mm3 (0.9-3.2); Lymphocytes Percent Auto 37.5 % (18.3-44.2); Mean Corpuscular HGB Conc 33.6 g/dl (32-36); Mean Corpuscular Hemoglobin 33.7 pg (26-34); Mean Corpuscular Volume 100.3 fl (80-100); Monocytes Absolute Auto 0.6 K/mm3 (0.1-0.6); Monocytes Percent Auto 18.9 % (2.6-8.5); Neutrophils Absolute Auto 1.3 K/mm3 (1.3-6.7); Neutrophils Percent Auto 39.6 % (45.5-73.1); Platelet Count Result 154 k/mm3 (150-375); Red Cell Distribution Width 12.4 % (11.5-14.5); White Blood Count 3.2 K/mm3 (4.5-10.0)
[2020-04-25 06:34] LABS: Alanine Aminotransferase 6 U/L (4-50); Albumin Level 3.1 g/dL (3.5-5.1); Alkaline Phosphatase 151 U/L (38-126); Anion Gap 1 mmol/L (8-16); Aspartate Amino Transferase 34 U/L (17-59); Bilirubin,Total 0.4 mg/dL (0.2-1.3); Blood Urea Nitrogen 11 mg/dL (9-20); Carbon Dioxide 34 mmol/L (22-30); Chloride 99 mmol/L (98-107); Estimated CRCL calculation 85 ml/min; Estimated Glomerular Filt Rate > 60; Glucose 99 mg/dL (75-110); Magnesium 1.9 mg/dL (1.6-2.3); Potassium 4.5 mmol/L (3.4-5.0); Sodium 134 mmol/L (137-145)
[2020-04-25] MEDS: MORPHINE SULFATE (*CRX) 2 MG/ML INJ 3 MG IV PUSH (06:50)
[2020-04-25] MEDS: DICYCLOMINE HCL 10 MG CAPSULE 20 MG PO ×4 (08:21→21:32)
[2020-04-25] MEDS: CHOLESTYRAMINE (W/ SUGAR) 4 GM POWD.PACK PO ×2 (08:21→17:48)
[2020-04-25] MEDS: TAMSULOSIN HCL 0.4 MG CAPSULE PO (08:22)
[2020-04-25] MEDS: PANTOPRAZOLE 40 MG TABLET PO (08:22)
[2020-04-25] MEDS: SPIRONOLACTONE 50 MG TABLET 250 MG PO (08:22)
[2020-04-25] MEDS: SIMETHICONE 125 MG CHEW TAB PO ×4 (08:22→21:32)
[2020-04-25] MEDS: FUROSEMIDE 20 MG TABLET 60 MG PO (08:22)
--- NOTE | 2020-04-25 11:01 | PM.IMPN ---
Progress Note: A&P Assessment and Plan (1) Cirrhosis of liver with ascites: Code(s): K74.60 - Unspecified cirrhosis of liver; R18.8 - Other ascites Status: Inactive Assessment and Plan: Transfer note from 04/20/20: Date of Admission 04/17/20 Date of Service 04/20/20 Mr. Worley is a pleasant 50yo M recently diagnosed with cirrhosis who presented to the ED for evaluation of abdominal pain and recurrent ascites. He has been followed by Gastroenterology, Dr. Claros, and has recently seen a glass smoother at [facility], Dr Billie Medrano. He is seen here for decompensated hepatic cirrhosis with recurring ascites. He has undergone paracentesis 04/16/20 from ED prior to arrival where 4350mL cloudy yellow fluid was removed; again 04/17/20 which yielded 1350mL of cloudy yellow fluid, and another paracentesis 04/19/20 which yielded another 1350mL clear yellow fluid. Peritoneal fluid culture shows no growth of any bacteria. MRI of abdomen 04/18/20 shows cirrhosis of the liver with moderate ascites. He has been treated with oral Lasix and spironolactone, which were increased during this admission to 60 mg daily and 150 mg daily respectively. He again woke this morning with abdominal discomfort due to quickly reaccumulating ascites. Patient is [facility] in [facility] to [facility] for evaluation by his hepatology team. I have discussed the case with Dr Khan, fellow for Dr Yfn Jerome who has accepted the patient in transfer to [facility] under care of the hepatology service. I have discussed with the patient the wait times for a bed at [facility] may require him to stay at our facility for another 1 to 2 days. He verbalizes understanding and wishes to proceed with transfer to [facility]. He is hemodynamically stable for transfer on 04/20/20 should a bed become available tonight. 04/25/20 The patient has been admitted to the hospitalist service for further treatment and evaluation of reaccumulation of ascites and abdominal pain. He is status post paracentesis which yielded 1350 mL of cloudy yellow fluid 04/17, 04/19 that yielded 1350 mL clear yellow fluid (therapeutic), and 04/24 which yielded 700 ml clear yellow fluid. Given his abdominal pain there were concerns for SBP however peritoneal fluid not consistent with such, although first preliminary paracentesis fluid culture is growing light peptostreptococcus species in anaerobic culture; discussed with Dr. Claros who initiated Rocephin. MRI of abdomen 04/18/20 showed cirrhosis of liver and mod ascites. Patient making more urine with increase in diuretic. Flomax has been added to his regimen. He has been accepted for transfer to [facility], however awaiting bed availability as noted above. Spironolactone increased to 250 mg daily, Continue Lasix 60 mg daily per GI rec. Antibiotics per GI recommendation. 2g Rocephin IV Q24 hr initiated 04/22 GI, Dr. Claros following - appreciate input. Still awaiting transfer to [facility] for evaluation by his glass smoother. Spoke with access line today, no updates available to establish timeline for transfer (2) Abdominal pain: Code(s): R10.9 - Unspecified abdominal pain Status: Acute Assessment and Plan: Likely due to recurring ascites. Rated 02/22 today. Morphine increased to 4 mg as needed for abdominal distension/pain. (3) Hypertension: Code(s): I10 - Essential (primary) hypertension Status: Chronic Assessment and Plan: Blood pressure evaluated today and is stable at 113/65. Monitor BP, continue spironolactone and Lasix. (4) Gastroesophageal reflux disease: Code(s): K21.9 - Gastro-esophageal reflux disease without esophagitis Status: Inactive Assessment and Plan: No acute issues. Continue PPI. (5) Pancytopenia: Code(s): D61.818 - Other pancytopenia Status: Acute Assessment and Plan: Suspect secondary to hepatic failure. H&H stable with no signs of bleeding. Vital signs stable. Platelets wnl
[2020-04-25] MEDS: MORPHINE SULFATE (*CRX) 2 MG/ML INJ 4 MG IV PUSH ×3 (12:10→20:45)
[2020-04-25 14:00] VITALS: BP 121/78; PULSE 108; RESP 18; TEMP 36.4; O2SAT 95
--- NOTE | 2020-04-25 16:18 | WPDGIPROGNO ---
Progress Note: A&P Assessment and Plan (1) Spontaneous bacterial peritonitis: Code(s): K65.2 - Spontaneous bacterial peritonitis Status: Acute Assessment and Plan: 04/16 ascitic fluid + Peptostreptococcus with 180 nucl cells but started on rocephin, however 04/17 cultures negative. Repeat paracentesis 04/24 with only 100 cells complete 7 days of antibiotics (started 04/22) on diuretics, plan for patient is to go to [facility] (pending bed) and possible evaluation of TIPS procedure (2) Decompensation of cirrhosis of liver: Code(s): K72.90 - Hepatic failure, unspecified without coma; K74.60 - Unspecified cirrhosis of liver Status: Acute Assessment and Plan: with ascites, it has been drained x4 discuss at length importance of 2g Na diet he is currently on aldactone 250mg and lasix 60mg daily MRI liver cirrhosis with ascites, no liver lesions. MELD score ~ 8 work up in progress (? anny, AIH, etc) (3) Portal hypertensive gastropathy: Code(s): K76.6 - Portal hypertension; K31.89 - Other diseases of stomach and duodenum Status: Acute (4) Thrombocytopenia: Code(s): D69.6 - Thrombocytopenia, unspecified Status: Acute Assessment and Plan: from cirrhosis (5) Abdominal pain: Code(s): R10.9 - Unspecified abdominal pain Status: Acute Assessment and Plan: now on antibiotics because positive culture in ascitic fluid, abdominal pain better after paracentesis today (6) Elevated liver enzymes: Code(s): R74.8 - Abnormal levels of other serum enzymes Status: Acute Assessment and Plan: stable (7) Diarrhea: Code(s): R19.7 - Diarrhea, unspecified Status: Acute Assessment and Plan: chronic, egd and colonoscopy no major findings Subjective Date/time seen: 04/25/20 16:18 Interval history: no new events, abdomen distended as usual Review of Systems Review of Systems: All systems reviewed & are unremarkable except as noted in HPI and below Exam Const: General: no acute distress Other: chronically ill appearing HENMT: General nose exam: Normal nares present Eyes: General: appearance normal, both eyes and all related structures Neck: Neck: supple and no JVD Resp: Auscultation: clear to auscultation bilaterally Cardio: Rate: regular rate Rhythm: regular rhythm GI: GI Palp: Yes Soft to palpation, Yes Tenderness to palpation present (GI) (minimally tender, no rebound- unchanged) and No Guarding due to palpation present (GI) Percussion: Yes Fluid wave present Auscultation: normal bowel sounds Skin: General skin exam: normal color Neuro: Speech: normal speech Motor exam (neuro): Normal motor muscle tone present throughout Extrem: General: normal to inspection Psych: Mental Status: mental status grossly normal Objective Data Vital Signs Vital Signs: Vital Signs - 24 hr 04/24/20 22:00 04/25/20 05:57 Temperature 97.5 F L 98.0 F Pulse Rate 113 H 90 Respiratory Rate 16 16 Blood Pressure 117/69 113/65 Pulse Oximetry 96 98 Intake/Output Intake/Output: Intake & Output 04/22/20 04/23/20 04/24/20 04/25/20 23:59 23:59 23:59 23:59 Intake Total 2700 2560 1790 1700 Output Total 871 319 8111 Balance 1750 7398 868 7836 Meds/Results Medications: Active Medications Generic Name Dose Route Start Last Admin Trade Name Enmanuelq PRN Reason Stop Dose Admin Cholestyramine Resin 4 gm 04/18/20 09:00 04/25/20 08:21 Cholestyramine (W/ Sugar) 4 Gm Powd.Pack PO 05/18/20 09:01 4 gm BID FORTINO Administration Dicyclomine HCl 20 mg 04/18/20 09:00 04/25/20 12:15 Dicyclomine Hcl 10 Mg Capsule PO 20 mg QID FORTINO Administration Furosemide 60 mg 04/20/20 09:00 04/25/20 08:22 Furosemide 20 Mg Tablet PO 60 mg QAM FORTINO Administration Ceftriaxone Sodium 2 gm in 100 mls @ 200 mls/hr 04/22/20 14:00 04/25/20 14:31 Rocephin 2 Gm/D5w 100 Ml IVPB 200 mls/hr Q24H FORTINO Administration Melato
[2020-04-25] MEDS: MELATONIN 3 MG TABLET PO (21:32)
[2020-04-25 22:00] VITALS: BP 105/67; PULSE 101; RESP 16; TEMP 36.4; O2SAT 96
[2020-04-26] MEDS: oxyCODONE/ACETAMINOPHEN (*CRX) 5-325 MG TABLET 1 TABLET PO ×4 (00:41→14:55)
[2020-04-26] MEDS: MORPHINE SULFATE (*CRX) 2 MG/ML INJ 4 MG IV PUSH ×2 (02:40→08:02)
[2020-04-26 06:00] VITALS: BP 107/61; PULSE 94; RESP 16; TEMP 36.3; O2SAT 99
[2020-04-26 06:31] LABS: Eosinophils Percent Auto 1.3 % (0-4.4); Hematocrit 37.4 % (42.0-52.0); Hemoglobin 12.3 g/dL (14.0-18.0); Immature Granulocyte Absolute 0.01 K/mm3 (0.00-0.031); Immature Granulocyte Percent A 0.3 % (0-0.5); Lymphocytes Absolute Auto 1.14 K/mm3 (0.9-3.2); Lymphocytes Percent Auto 36.2 % (18.3-44.2); Mean Corpuscular HGB Conc 32.9 g/dl (32-36); Mean Corpuscular Hemoglobin 33.1 pg (26-34); Mean Corpuscular Volume 100.5 fl (80-100); Mean Platelet Volume 9.9 fl (7.4-10.4); Monocytes Absolute Auto 0.5 K/mm3 (0.1-0.6); Monocytes Percent Auto 17.1 % (2.6-8.5); Neutrophils Absolute Auto 1.4 K/mm3 (1.3-6.7); Neutrophils Percent Auto 44.1 % (45.5-73.1); Platelet Count Result 182 k/mm3 (150-375); Red Blood Count 3.72 M/mm3 (4.6-6.20); Red Cell Distribution Width 12.1 % (11.5-14.5); White Blood Count 3.2 K/mm3 (4.5-10.0)
[2020-04-26] MEDS: DICYCLOMINE HCL 10 MG CAPSULE 20 MG PO ×2 (08:10→14:02)
[2020-04-26] MEDS: TAMSULOSIN HCL 0.4 MG CAPSULE PO (08:10)
[2020-04-26] MEDS: SPIRONOLACTONE 50 MG TABLET 250 MG PO (08:11)
[2020-04-26] MEDS: FUROSEMIDE 20 MG TABLET 60 MG PO (08:11)
[2020-04-26] MEDS: PANTOPRAZOLE 40 MG TABLET PO (08:11)
[2020-04-26] MEDS: CHOLESTYRAMINE (W/ SUGAR) 4 GM POWD.PACK PO (08:11)
[2020-04-26] MEDS: SIMETHICONE 125 MG CHEW TAB PO ×2 (08:12→14:02)
[2020-04-26 09:02] LABS: Alanine Aminotransferase 6 U/L (4-50); Albumin Level 3.1 g/dL (3.5-5.1); Alkaline Phosphatase 145 U/L (38-126); Anion Gap 2 mmol/L (8-16); Aspartate Amino Transferase 36 U/L (17-59); Bilirubin,Total 0.4 mg/dL (0.2-1.3); Blood Urea Nitrogen 12 mg/dL (9-20); Calcium 9.3 mg/dL (8.4-10.2); Carbon Dioxide 35 mmol/L (22-30); Chloride 98 mmol/L (98-107); Estimated CRCL calculation 85 ml/min; Estimated Glomerular Filt Rate > 60; Glucose 115 mg/dL (75-110); Potassium 4.7 mmol/L (3.4-5.0); Sodium 135 mmol/L (137-145)
--- NOTE | 2020-04-26 11:27 | WPDGIPROGNO ---
Progress Note: A&P Assessment and Plan (1) Spontaneous bacterial peritonitis: Code(s): K65.2 - Spontaneous bacterial peritonitis Status: Acute Assessment and Plan: 04/16 ascitic fluid + Peptostreptococcus (? contaminant) with 180 nucl cells but started on rocephin, however 04/17 cultures negative. Repeat paracentesis 04/24 with only 100 cells. Ok to switch to augmentin 875 mg bid for another 2 more days (he can complete treatment at home) MELD score is low (normal bilirubin, creatinine and INR) Unfortunately not available bed in [facility] for another few more days and can not even guarantee that he will get a bed. He is stable enough to go home with diuretics, 2g na diet. He can call us if needs to have another large volume paracentesis, also encourage to see his bread dough mixer warren to discuss if down the road will benefit from TIPS procedure because ascites. (2) Decompensation of cirrhosis of liver: Code(s): K72.90 - Hepatic failure, unspecified without coma; K74.60 - Unspecified cirrhosis of liver Status: Acute Assessment and Plan: with ascites, it has been drained x4 discuss at length importance of 2g Na diet he is currently on aldactone 250mg and lasix 60mg daily, continue with same dose for now. His renal function and lytes have been normal. MRI liver cirrhosis with ascites, no liver lesions. low MELD score work up in progress (? anny, AIH, etc) (3) Portal hypertensive gastropathy: Code(s): K76.6 - Portal hypertension; K31.89 - Other diseases of stomach and duodenum Status: Acute (4) Thrombocytopenia: Code(s): D69.6 - Thrombocytopenia, unspecified Status: Acute Assessment and Plan: from cirrhosis (5) Abdominal pain: Code(s): R10.9 - Unspecified abdominal pain Status: Acute Assessment and Plan: now on antibiotics because positive culture in ascitic fluid, abdominal pain better after paracentesis today (6) Elevated liver enzymes: Code(s): R74.8 - Abnormal levels of other serum enzymes Status: Acute Assessment and Plan: stable (7) Diarrhea: Code(s): R19.7 - Diarrhea, unspecified Status: Acute Assessment and Plan: chronic, egd and colonoscopy no major findings Subjective Date/time seen: 04/26/20 11:27 Interval history: no major changes, he seems comfortable right now. Review of Systems Review of Systems: All systems reviewed & are unremarkable except as noted in HPI and below Exam Const: General: no acute distress Other: chronically ill appearing HENMT: General nose exam: Normal nares present Eyes: General: appearance normal, both eyes and all related structures Neck: Neck: supple and no JVD Resp: Auscultation: clear to auscultation bilaterally Cardio: Rate: regular rate Rhythm: regular rhythm GI: GI Palp: Yes Soft to palpation, Yes Tenderness to palpation present (GI) (minimally tender, no rebound- unchanged) and No Guarding due to palpation present (GI) Percussion: Yes Fluid wave present Auscultation: normal bowel sounds Skin: General skin exam: normal color Neuro: Speech: normal speech Motor exam (neuro): Normal motor muscle tone present throughout Extrem: General: normal to inspection Psych: Mental Status: mental status grossly normal Objective Data Vital Signs Vital Signs: Vital Signs - 24 hr 04/25/20 14:00 04/25/20 22:00 04/26/20 06:00 Temperature 97.5 F L 97.6 F 97.3 F L Pulse Rate 108 H 101 H 94 Respiratory Rate 18 16 16 Blood Pressure 121/78 105/67 107/61 Pulse Oximetry 95 96 99 Intake/Output Intake/Output: Intake & Output 04/23/20 04/24/20 04/25/20 04/26/20 23:59 23:59 23:59 23:59 Intake Total 2560 1790 3380 1030 Output Total 600 1530 655 Balance 5220 788 7807 1030 Meds/Results Medications: Active Medications Generic Name Dose Route Start Last Admin Trade Name Freq PRN Reason Stop Dose Admin Cholestyramine Resin 4 gm 04/18/20 09:00
[2020-04-26 14:00] VITALS: BP 121/75; PULSE 110; RESP 16; TEMP 36.4; O2SAT 96
--- NOTE | 2020-04-26 15:50 | PC.NURSE ---
Patient is very upset being discharge and not being transferred to [facility]. Patient is also worried about pain control. Patient called his doctor [facility] and he requested radiology send films to [facility]. I called xray they were going to transfer films to [facility].
--- NOTE | 2020-04-26 17:10 | PM.DS ---
DS: Admitting Diagnosis Admitting Diagnosis Admitting Diagnosis: Abdominal pain and recurrent ascites. DS: Discharge Diagnosis Discharge Diagnosis (1) Cirrhosis of liver with ascites: Code(s): K74.60 - Unspecified cirrhosis of liver; R18.8 - Other ascites Status: Inactive Assessment and Plan: Patient evaluated for recurrent ascites with associated abdominal pain. He underwent paracentesis x4 (04/16 yielded 4L, 04/17 yielded 1.3 L, 04/19 yielded 1.3 L, and 04/24 yielded 700 ml). Culture from 04/16 grew peptostreptococcus with 180 nucleated cells, repeat cultures negative on 04/17. Pathologies negative for malignancy or atypia. He was started on IV Rocephin. Given his persistent reaccumulation of fluid, transfer was initiated to [facility] for evaluation by his hepatology team. He was accepted by Dr. Khan at [facility] on 04/20. However, given increased hospital volumes due to COVID-19 pandemic, he remained on the wait list for an extended time. I spoke with his alkylation operator, Dr. Billie Medrano on 04/26/20 to discuss the case. We spoke for >30 minutes to thoroughly review his case. She felt that at this time, transfer could be deferred. She recommended significant increases in his diuretic regimen to help with ascites recurrence. He was started on Lasix 120 daily and Aldactone 300 daily. He will continue oral antibiotics with Augmentin through 04/28 as an outpatient for peptostreptococcus. She recommended upon completion of these antibiotics that he be started on daily Cipro for SBP prophylaxis. She will schedule him for an outpatient appointment within the week. Radiology reports from his hospitalization were pushed to her office at her request for review. Low sodium diet discussed at length. Please refer to transfer note from 04/20/2020. (2) Abdominal pain: Code(s): R10.9 - Unspecified abdominal pain Status: Acute Assessment and Plan: Secondary to distension due to recurring ascites. Improved with analgesics. He was given a short course of oxycodone for pain control as an outpatient until he may be evaluated by his alkylation operator. We discussed safety precautions for opioid pain medications. (3) Hypertension: Code(s): I10 - Essential (primary) hypertension Status: Chronic Assessment and Plan: Blood pressure evaluated daily and remained stable. Continue spironolactone and Lasix. (4) Gastroesophageal reflux disease: Code(s): K21.9 - Gastro-esophageal reflux disease without esophagitis Status: Inactive Assessment and Plan: No acute issues. Continue PPI. (5) Pancytopenia: Code(s): D61.818 - Other pancytopenia Status: Acute Assessment and Plan: Ssecondary to hepatic failure. H&H stable with no signs of bleeding. Vital signs stable. Platelets wnl today. DS: Summary Hospital Course Reason for hospitalization: Ascites Hospital Course: date of admission:04/17/2020 date of service: 04/26/2020 Matt Worley is a 50-year-old male with history of cirrhosis of liver with ascites, hypertension, and prostate cancer who presented to the emergency department on 04/17/2020 with complaints of abdominal distension and reaccumulation of fluid after paracentesis one day prior. At presentation, BP was elevated, he was mildly tachycardic, afebrile, WBC and platelets mildly low, electrolytes stable, AST and ALP elevated, CT a/p showed probable cirrhosis and portal HTN and moderate ascites. he was admitted to the hospitalist service for further evaluation management was seen in consultation by Gastroenterology. Please see above for further details regarding his hospitalization. Transfer was initiated, however given hospital constraints at [facility], transfer was canceled after discussion with his alkylation operator. Medication adjustments were made at the recommendation of his alkylation operator and he will need to follow up within the week. He was determined to no longer require inpati
== END 2020-04-26 15:55 | disposition home or self-care (01) ==
LOC: ANHED 09:52 → ANH3MEDSUR 14:20
PROVIDERS: Internal Medicine Gastroenterology; Physician Assistant; Admitting Provider Internal Medicine; Emergency Provider General Practice; Visit Provider Physician Assistant
DX: K74.60 Unspecified cirrhosis of liver (principal); K65.2 Spontaneous bacterial peritonitis; D61.818 Other pancytopenia; K72.90 Hepatic failure, unspecified without coma; R18.8 Other ascites; K76.6 Portal hypertension; K31.89 Other diseases of stomach and duodenum; B95.4 Other streptococcus as the cause of diseases classified elsewhere; R19.7 Diarrhea, unspecified; I10 Essential (primary) hypertension; K21.9 Gastro-esophageal reflux disease without esophagitis; F17.210 Nicotine dependence, cigarettes, uncomplicated; R73.9 Hyperglycemia, unspecified; R73.03 Prediabetes; Z79.899 Other long term (current) drug therapy; Z85.46 Personal history of malignant neoplasm of prostate; Z87.442 Personal history of urinary calculi
CPT/HCPCS: 36415; 49083; 74177; 74183; 80053; 82042; 82140; 82150; 83036; 83690; 83735; 85025; 85027; 85055; 85610; 85730; 87070; 87075; 87205; 88104; 88108; 88305; 88309; 89051; 93970; 96361; 96365; 96366; 96374; 96375; 96376; 99285; A9270; A9577; G0378; G0379; J0696; J2270; J2405; J7030; P9047; Q9967

== ENCOUNTER 2020-08-15 09:27 | Inpatient (IN) | payer OTHER, SELFPAY ==
[2020-08-15] VITALS (8 sets, daily range): BP systolic 115–147; BP diastolic 68–89; PULSE 90–125; RESP 14–22; TEMP 36.1–36.9; O2SAT 95–100; BMI 26.9
--- NOTE | ~2020-08-15 | CT_ITS ---
EXAMINATION: CT abdomen pelvis w con DATE: 08/15/2020 10:39 INDICATION: Lower abdominal pain and gastrointestinal bleed TECHNIQUE: Computed tomography (CT) of the abdomen and pelvis was performed with 100 mL Omnipaque-350 intravenous contrast. Automated exposure control and iterative reconstruction technique were employe d. The dose-length product was 579.92 mGy-cm. COMPARISON: CT dated 04/17/2020 and MRI dated 04/18/2020 FINDINGS: Mild dependent atelectasis in the bilateral lower lobes. No pleural effusion. Heart size is normal. M oderate-sized pericardial effusion. Nodular liver surface consistent with cirrhosis. Splenomegaly elisabet suring 16.3 similar in maximal length consistent with secondary portal venous hypertension. Cholecyst ectomy clips at the gallbladder fossa likely dropped clip in the anterior inferior left hemipelvis. P ancreas, bilateral adrenal glands and kidneys are normal. There are few scattered small colonic diver ticula without adjacent inflammatory change to suggest diverticulitis. Postoperative changes at the t ip the cecum consistent with prior appendectomy. No bowel obstruction. Bladder is normal. Mild nonspe cific retroperitoneal stranding in the upper abdomen. Trace amount of free fluid in the pelvis. No ab scess or free intraperitoneal gas. No pathologically enlarged abdominal or pelvic lymphadenopathy. Ch ronic T10-T12 compression fractures with mild associated kyphosis. Mild thoracolumbar spondylosis. IMPRESSION: 1. Cirrhosis and splenomegaly consistent with secondary portal venous hypertension. 2. Mild retroperitoneal stranding in the upper abdomen most likely related to cirrhosis and portal ve nous hypertension but would correlate with amylase and lipase levels to exclude acute cholecystitis. 3. Moderate-sized pericardial effusion. Reviewed, dictated and finalized at location B. [employer] IMPRESSION: 1. Cirrhosis and splenomegaly consistent with secondary portal venous hypertens ion. 2. Mild retroperitoneal stranding in the upper abdomen most likely related to c irrhosis and portal venous hypertension but would correlate with amylase and li pase levels to exclude acute cholecystitis. 3. Moderate-sized pericardial effusion.
--- NOTE | 2020-08-15 09:56 | ED.GIBLEED ---
HPI - GI Bleed General Chief complaint: GI Bleed Stated complaint: black stool Time Seen by Provider: 08/15/20 09:56 History of Present Illness HPI Narrative: 50 yo male w/ h/o cirrhosis presents to the ED for vomiting blood. He reports that he has been having dark stools for the past few days. Today he had 2 episodes of vomiting bright red blood. Since that time he has been feeling light headed. He also reports lower abdominal pain. He does not have any h/o varices or ulcer. His liver specialist is at [facility]. Related Data Home Medications Medication Instructions Recorded Confirmed omeprazole 10 mg PO DAILY 02/17/20 05/28/20 Allergies Allergy/AdvReac Type Severity Reaction Status Date / Time No Known Allergies Allergy Verified 08/15/20 09:34 Review of Systems Review of Systems: All systems reviewed & are unremarkable except as noted in HPI and below Constitutional: Constitutional: Denies chills and Denies fever(s) Eyes: Eyes: Reports no additional eye complaints ENT: Denies vertigo Cardiovascular: Cardiovascular: Denies chest pain Respiratory: Respiratory: Denies dyspnea Gastrointestinal: Gastrointestinal: Reports abdominal pain, Reports bloating, Reports nausea and Reports vomiting Genitourinary: Genitourinary: Denies hematuria and Denies dysuria Neurologic: Reports dizziness and Denies syncope [facility] Past Medical History Medical History Arthritis Cirrhosis of liver with ascites Decompensation of cirrhosis of liver Gastroesophageal reflux disease History of kidney stones Hypertension Portal hypertensive gastropathy Noted on endoscopy on 03/23/[address] Duran. Prostate cancer Status post radiation seed implantation. Smoker Spontaneous bacterial peritonitis Tobacco use Surgical History Surgical History History of appendectomy History of cholecystectomy History of inguinal hernia repair History of lithotripsy History of repair of right rotator cuff History of testicular surgery Resection of a tumor, unclear if malignant or benign. Family History Family History Mother Family history of malignant neoplasm of breast in first degree relative Other Family history of malignant neoplasm Social History Social History Social History: The patient has 2 grown children and he is raising a 6-year-old child. Surrogate decision maker: Marnie Washington Who is his aunt. His is dying of cancer this time.Code status: Full code. The patient still continues to smoke half a pack a cigarettes a day although he said he has not smoked any in a couple days. He denies any alcohol use recently he has had about 10 years ago he drank heavily. Then he goes on to say that his cirrhosis is not due to his alcohol use 10 years ago. He denies any marijuana or illicit drugs. Smoking packs per day: 0.5 Smoking cigarettes per day: 10.0 Years smoked: 20 Smoking pack-years: 10.00 Smoking status: Current some day smoker Tobacco type: cigarettes Second hand tobacco smoke exposure: Yes Alcohol intake: former Drinks per week: 2 Substance use: never Substance use type: does not use Additional living arrangements comments: Resides in [place] with his . 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 Gender identity (if verbalized by the patient): Male Spiritual care concerns: No Exam Const: General: no acute distress and alert Orientation/consciousness: patient oriented x3 HENMT: Head: normal to inspection Neck: Neck: normal visual inspection Chest: Chest palpation & inspection: no tenderness Resp: Effort & Inspection: normal respiratory effort Auscultation: clear to auscultation bilaterally, no rales, no rhonchi and no wheezes Cardio: Jugular
[2020-08-15 10:09] LABS: Basophils Percent Auto 0.4 % (0.2-1.2); Eosinophils Absolute Auto 0.1 K/mm3 (0-0.3); Eosinophils Percent Auto 0.7 % (0-4.4); Hematocrit 38.9 % (42.0-52.0); Hemoglobin 12.8 g/dL (14.0-18.0); Immature Granulocyte Absolute 0.03 K/mm3 (0.00-0.031); Immature Granulocyte Percent A 0.3 % (0-0.5); Lymphocytes Absolute Auto 1.74 K/mm3 (0.9-3.2); Lymphocytes Percent Auto 18.5 % (18.3-44.2); Mean Corpuscular HGB Conc 32.9 g/dl (32-36); Mean Corpuscular Hemoglobin 31.9 pg (26-34); Mean Platelet Volume 10.4 fl (7.4-10.4); Monocytes Absolute Auto 0.7 K/mm3 (0.1-0.6); Monocytes Percent Auto 6.9 % (2.6-8.5); Neutrophils Absolute Auto 6.9 K/mm3 (1.3-6.7); Neutrophils Percent Auto 73.2 % (45.5-73.1); Platelet Count Result 179 k/mm3 (150-375); Red Blood Count 4.01 M/mm3 (4.6-6.20); Red Cell Distribution Width 13.6 % (11.5-14.5); White Blood Count 9.4 K/mm3 (4.5-10.0)
[2020-08-15 10:12] LABS: Prothrombin Time 13.5 Seconds (11.1-14.7)
[2020-08-15 10:13] LABS: Partial Thromboplastin Time 29.7 SECONDS (22.3-36.8)
[2020-08-15 10:17] LABS: Alanine Aminotransferase 13 U/L (4-50); Albumin Level 3.8 g/dL (3.5-5.1); Alkaline Phosphatase 99 U/L (38-126); Anion Gap 5 mmol/L (8-16); Aspartate Amino Transferase 38 U/L (17-59); Bilirubin,Total 0.7 mg/dL (0.2-1.3); Blood Urea Nitrogen 51 mg/dL (9-20); Calcium 8.9 mg/dL (8.4-10.2); Carbon Dioxide 25 mmol/L (22-30); Chloride 107 mmol/L (98-107); Estimated CRCL calculation 96 ml/min; Estimated Glomerular Filt Rate > 60; Glucose 241 mg/dL (75-110); Potassium 4.6 mmol/L (3.4-5.0); Sodium 137 mmol/L (137-145)
[2020-08-15] MEDS: SODIUM CHLORIDE 0.9% IV 1,000 ML 999 ML IV CONT (10:38)
[2020-08-15] MEDS: PANTOPRAZOLE SODIUM IV 40 MG VIAL 80 MG IV PUSH (10:38)
[2020-08-15] MEDS: MORPHINE SULFATE (*CRX) 4 MG/ML INJ IV PUSH ×5 (10:38→22:29)
[2020-08-15] MEDS: OCTREOTIDE ACETATE 50 MCG/ML VIAL IV PUSH (10:38)
[2020-08-15] MEDS: MORPHINE SULFATE (*CRX) 2 MG/ML INJ IV PUSH ×2 (11:09→12:30)
--- NOTE | 2020-08-15 12:54 | PM.IMHP ---
H&P: HPI History of Present Illness Date/Time: 08/15/20 12:54 Chief Complaint: Hematemesis Narrative: Matt Worley II is a 50 year old male Who has a history of cirrhosis of the liver non alcoholic. The patient typically has a GI specialist at [facility]. The patient was diagnosed with cirrhosis of the liver approximately this past January. The patient stated that he had several paracentesis in the past. He has a history of having cholecystectomy. The patient does occasionally take ibuprofen. He stated that he took ibuprofen 400 mg approximately 2 days ago. The patient stated that he started having dark tarry stools approximately 2 days ago. The patient stated that his GI doctor was going to order him some stuff for IBS but his insurance would not pay for it So he never started taking it. Today the patient vomited large amounts of blood x2. The patient is having abdominal pain today. He appears jaundice. Dr. Claros has been consulted. The patient was started on octreotide drip. He was given IV Protonix and IV morphine for the discomfort. He has IV fluids infusing without difficulty. The patient still continues to have abdominal discomfort. CT of the abdomen was performed and it was read as 1. Cirrhosis and splenomegaly consistent with secondary portal venous hypertension. 2. Mild retroperitoneal stranding in the upper abdomen most likely related to cirrhosis and portal venous hypertension but would correlate with amylase and lipase levels to exclude acute cholecystitis. 3. Moderate-sized pericardial effusion. the patient is admitted to inpatient services on 08/15/2020. Review of Systems Review of Systems: All systems reviewed & are unremarkable except as noted in HPI and below Constitutional: Constitutional: Reports as per HPI and Reports no additional constitutional complaints Eyes: Eyes: Reports as per HPI and Reports no additional eye complaints ENT: Reports system reviewed and no additional complaints, except as documented and Reports Normal hearing present Cardiovascular: Cardiovascular: Reports no additional cardiovascular complaints Respiratory: Respiratory: Reports no additional respiratory complaints and Reports no additional respiratory complaints Gastrointestinal: Gastrointestinal: Reports as per HPI and Reports no additional gastrointestinal complaints Musculoskeletal: Musculoskeletal: Reports no additional musculoskeletal complaints Integumentary/Breasts: Skin/Breast: Reports system reviewed and no additional complaints, except as docu and Reports as per HPI Neurologic: Reports system reviewed and no additional complaints, except as documented, Reports as per HPI and Reports Normal hearing present Psychiatric: Psychiatric: Reports no additional psychiatric complaints and Reports as per HPI Endocrine: Endocrine: Reports no additional endocrine complaints Hematologic/Lymphatic: Hematologic/Lymphatic: Reports no additional hematologic/lymphatic complaints Allergic/Immunologic: Allergic/Immunologic: Reports no additional allergic/immunologic complaints PMFSH Past Medical History Medical History Arthritis Cirrhosis of liver with ascites Decompensation of cirrhosis of liver Gastroesophageal reflux disease History of kidney stones Hypertension Portal hypertensive gastropathy Noted on endoscopy on 03/23/[address] Durna. Prostate cancer Status post radiation seed implantation. Smoker Spontaneous bacterial peritonitis Tobacco use Surgical History Surgical History History of appendectomy History of cholecystectomy History of inguinal hernia repair History of lithotripsy History of repair of right rotator cuff History of testicular surgery Resection of a tumor, unclear if malignant or benign. Family History Family History Mother Family history of malig
[2020-08-15 13:36] LABS: Hemoglobin 11.5 g/dL (14.0-18.0)
--- NOTE | 2020-08-15 14:09 | ADMGEN ---
This patient, Matt Worley II, was admitted to Medical Room 340-01. Patient/family oriented to hospital policies and general routines including ID bracelet, bed and alarms, visiting hours, pain management, procedures, bathroom and other care routines, personal items, smoking policy, room service/diet, and visiting hours. Information on how to activate the Rapid Response Team has been discussed. Patient/Family are encouraged to report perceived risks to care and to ask questions if they do not understand what they are told or what they should do.
[2020-08-15] MEDS: LACTATED RINGERS 1,000 ML 125 ML IV CONT ×2 (14:16→22:30)
[2020-08-15] MEDS: ONDANSETRON INJ 4 MG/2 ML VIAL IV PUSH (14:57)
[2020-08-15 15:07] LABS: Glucose Point of Care 183 (65-105)
[2020-08-15 17:16] LABS: Hematocrit 33.4 % (42.0-52.0)
[2020-08-15 18:41] LABS: Glucose Point of Care 142 (65-105)
[2020-08-15] MEDS: DICYCLOMINE HCL INJ 20 MG/2 ML VIAL IM (18:56)
[2020-08-15] MEDS: PANTOPRAZOLE SODIUM IV 40 MG VIAL IV PUSH (18:56)
[2020-08-15] MEDS: SODIUM CHLORIDE 0.9% INJ 10 ML 100 ML (19:00)
[2020-08-15 23:15] LABS: Hematocrit 31.2 % (42.0-52.0); Hemoglobin 10.1 g/dL (14.0-18.0)
[2020-08-16] VITALS (14 sets, daily range): BP systolic 90–118; BP diastolic 52–70; PULSE 80–92; RESP 16–19; TEMP 36.1–36.6; O2SAT 93–99; BMI 26.9
--- NOTE | 2020-08-16 | ECHO_ITS ---
Patient Info Name: Matt Worley Age: 50 years : 1970 Gender: Male Ht: 65 in Wt: 162 lbs BSA: 1.85 m2 HR: 92 bpm BP: 118 / 65 mmHg Heart Rhythm: Sinus Rhythm Technical Quality: Good Exam Date: 08/16/2020 2:47 PM Exam Location: [facility] Pulmonary Patient Status: Inpatient Admit Date: 08/15/2020 Staff Ordering Physician: Cinthia Cordon PA-C [employer]: Nehemiah Aguilera, MATTY, RT Attending Provider: Ricardo Gama MD Referring Physician: Bravo MEDINA; Exam Type: CA echo doppler color flow Study Info Indications I31.3 - Pericardial effusion (noninflammatory) Complete two-dimensional, color flow and Doppler transthoracic echocardiogram is performed. Strain analysis performed. Summary 1. Complete two-dimensional, color flow and Doppler transthoracic echocardiogram is performed. 2. Normal left ventricular size and thickness with good contractility of all segments and no focal wall motion abnormalities. The calculated ejection fraction is 50 4% but visually it appears to be 60-65%. The global longitudinal strain is moderately diminished at -12% consistent with systolic dysfunction. Normal diastolic function. 3. Left atrial chamber dimension is moderately enlarged. 4. Mild pulmonary hypertension, estimated pulmonary arterial systolic pressure is 39 mmHg. 5. There is a small pericardial effusion present, generally around 5 mm to 10 mm thick although there is a posterior lateral pocket that is 1.4 cm thick. No evidence of tamponade physiology. 6. Normal sinus rhythm. Left Ventricle Left ventricular chamber dimension is normal. Left ventricular systolic function is normal, estimated at 60-65%. There is no increased left ventricular wall thickness. Left ventricular septal wall motion is normal. The left ventricular diastolic function is normal. Global longitudinal strain is moderately elevated at 12 %. Right Ventricle Right ventricular chamber dimension is normal. Right ventricular systolic function is normal. Left Atria Left atrial chamber dimension is moderately enlarged. Right Atria Right atrial chamber dimension is normal. Aortic Valve The aortic valve is trileaflet. There is no aortic valve sclerosis. There is no aortic valve stenosis. There is no aortic valve regurgitation. Pulmonic Valve The pulmonic valve is normal. There is no pulmonic valve stenosis. There is no pulmonic regurgitation. Mitral Valve The mitral valve has normal leaflets. There is no mitral valve stenosis. There is trace mitral valve regurgitation. Tricuspid Valve The tricuspid valve leaflets are normal. There is no significant tricuspid valve stenosis. There is trace tricuspid valve regurgitation. Mild pulmonary hypertension, estimated pulmonary arterial systolic pressure is 39 mmHg. Pericardium/Pleural The pericardium appears normal. There is small circumferential pericardial effusion. Inferior Vena Cava Normal inferior vena cava with >50% collapse upon inspiration consistent with Empty right atrial pressure, 10 mmHg. Aorta The aortic root size at the sinus of Valsalva is normal. The prox ascending aorta size is normal. Left Ventricular Outflow Tract Name Value Normal LVOT 2D LVOT Diame
[2020-08-16 00:30] LABS: Glucose Point of Care 154 (65-105)
[2020-08-16] MEDS: MORPHINE SULFATE (*CRX) 4 MG/ML INJ IV PUSH ×11 (00:42→23:57)
[2020-08-16 06:01] LABS: Hematocrit 32.3 % (42.0-52.0); Hemoglobin 10.2 g/dL (14.0-18.0)
[2020-08-16 06:08] LABS: Hemoglobin A1C 5.2 % (<5.7)
[2020-08-16 06:30] LABS: Alanine Aminotransferase 15 U/L (4-50); Albumin Level 3.1 g/dL (3.5-5.1); Alkaline Phosphatase 75 U/L (38-126); Anion Gap 2 mmol/L (8-16); Aspartate Amino Transferase 66 U/L (17-59); Bilirubin,Total 0.7 mg/dL (0.2-1.3); Blood Urea Nitrogen 29 mg/dL (9-20); Calcium 8.2 mg/dL (8.4-10.2); Carbon Dioxide 28 mmol/L (22-30); Chloride 106 mmol/L (98-107); Estimated CRCL calculation 96 ml/min; Estimated Glomerular Filt Rate > 60; Glucose 145 mg/dL (75-110); Lactate Dehydrogenase 404 U/L (313-618); Magnesium 1.7 mg/dL (1.6-2.3); Potassium 3.8 mmol/L (3.4-5.0); Sodium 136 mmol/L (137-145)
[2020-08-16] MEDS: LACTATED RINGERS 1,000 ML 125 ML IV CONT (06:51)
[2020-08-16] MEDS: SODIUM CHLORIDE 0.9% INJ 10 ML 100 ML (09:20)
[2020-08-16] MEDS: PANTOPRAZOLE SODIUM IV 40 MG VIAL IV PUSH ×2 (09:21→17:38)
[2020-08-16] MEDS: LACTATED RINGERS 1,000 ML 150 ML IV CONT (11:41)
--- NOTE | 2020-08-16 11:58 | WPDANESEPPF ---
Anes - Initial Pre Proc Eval Procedure: Operation Date: 08/16/20 14:45 Proposed Procedures p Esophagogastroduodenoscopy - Shon Duran MD Date/Time: 08/16/20 11:58 Surgeon: Ricardo Gama MD Pre Op Diagnosis: Upper GI blee, abdominal pain Patient Data Age: 50 Gender: M Height: 5 ft 5 in Weight: 73.5 kg Last Vital Signs Temp 96.9 F L 08/16/20 11:42 Pulse 86 08/16/20 11:42 Resp 16 08/16/20 11:42 BP 114/65 08/16/20 11:42 Pulse Ox 95 08/16/20 11:42 Allergies Allergy/AdvReac Type Severity Reaction Status Date / Time No Known Allergies Allergy Verified 08/15/20 09:34 Home Medications Medication Instructions Recorded Confirmed Type omeprazole 10 mg PO DAILY 02/17/20 08/15/20 History dicyclomine 20 mg PO QID #20 tablet 04/02/20 08/15/20 Rx furosemide 120 mg PO DAILY #60 tablet 04/26/20 08/15/20 Rx tamsulosin 0.4 mg PO QAM #30 cap 04/26/20 08/15/20 Rx Laboratory Tests 08/15/20 08/15/20 08/15/20 13:30 14:17 17:06 Hgb 11.5 g/dL L g/dL 11.0 g/dL L g/dL (14.0-18.0) (14.0-18.0) Hct 35.0 % L % 33.4 % L % (42.0-52.0) (42.0-52.0) Sodium Potassium Chloride Carbon Dioxide Anion Gap BUN Creatinine Estim Creat Clear Calc Estimated GFR Glucose POC Capillary Glucose 183 mg/dl H mg/dl (65-105) Hemoglobin A1c Calcium Magnesium Ferritin Total Bilirubin AST ALT Alkaline Phosphatase Lactate Dehydrogenase Total Protein Albumin 08/15/20 08/15/20 08/15/20 17:50 22:57 23:59 Hgb 10.1 g/dL L g/dL (14.0-18.0) Hct 31.2 % L % (42.0-52.0) Sodium Potassium Chloride Carbon Dioxide Anion Gap BUN Creatinine Estim Creat Clear Calc Estimated GFR Glucose POC Capillary Glucose 142 mg/dl H mg/dl 154 mg/dl H mg/dl (65-105) (65-105) Hemoglobin A1c Calcium Magnesium Ferritin Total Bilirubin AST ALT Alkaline Phosphatase Lactate Dehydrogenase Total Protein Albumin 08/16/20 08/16/20 08/16/20 05:36 05:36 05:36 Hgb 10.2 g/dL L g/dL (14.0-18.0) Hct 32.3 % L % (42.0-52.0) Sodium 136 mmol/L L mmol/L (137-145) Potassium 3.8 mmol/L mmol/L (3.4-5.0) Chloride 106 mmol/L mmol/L (98-107) Carbon Dioxide 28 mmol/L mmol/L (22-30) Anion Gap 2 mmol/L L mmol/L (8-16) BUN 29 mg/dL H D mg/dL (9-20) Creatinine 0.70 mg/dL mg/dL (0.7-1.3) Estim Creat Clear Calc 96 ml/min ml/min Estimated GFR > 60 (59 - ) Glucose 145 mg/dL H mg/dL (75-110) POC Capillary Glucose Hemoglobin A1c Calcium 8.2 mg/dL L mg/dL (8.4-10.2) Magnesium 1.7 mg/dL mg/dL (1.6-2.3) Ferritin 75.10 ng/mL ng/mL (17.9-464) Total Bilirubin 0.7 mg/dL mg/dL (0.2-1.3) AST 66 U/L H U/L (17-59) ALT 15 U/L U/L (4-50) Alkaline Phosphatase 75 U/L U/L (38-126) Lactate Dehydrogenase 404 U/L U/L (313-618) Total Protein 6.0 g/dL L g/dL (6.3-8.2) Albumin 3.1 g/dL L g/dL (3.5-5.1) 08/16/20 05:36 Hgb Hct Sodium Potassium Chloride Carbon Dioxide Anion Gap BUN Creatinine Estim Creat Clear Calc Estimated GFR Glucose POC Capillary Glucose Hemoglobin A1c 5.2 % % (<5.7) Calcium Magnesium Ferritin To
--- NOTE | 2020-08-16 12:01 | WPDGIPROGNO ---
Subjective Date/time seen: 08/16/20 12:01 Interval history: hematemesis, melena, cirrhosis Objective Data Vital Signs Vital Signs: Vital Signs - 24 hr 08/15/20 12:28 08/15/20 13:34 08/15/20 14:24 Temperature 98.4 F Pulse Rate 114 H 112 H 108 H Respiratory Rate 16 18 22 H Blood Pressure 122/84 115/70 147/89 H Pulse Oximetry 97 97 100 08/15/20 16:00 08/15/20 19:23 08/15/20 20:00 Temperature 97 F L Pulse Rate 105 H 90 94 Respiratory Rate 18 Blood Pressure 123/68 Pulse Oximetry 97 08/16/20 00:00 08/16/20 04:00 08/16/20 06:00 Temperature 97.2 F L Pulse Rate 88 89 92 Respiratory Rate 18 Blood Pressure 118/65 Pulse Oximetry 99 08/16/20 08:00 08/16/20 11:20 08/16/20 11:42 Temperature 96.9 F L Pulse Rate 90 86 Respiratory Rate 16 Blood Pressure 114/65 Pulse Oximetry 96 95 Intake/Output Intake/Output: Intake & Output 08/13/20 08/14/20 08/15/20 08/16/20 23:59 23:59 23:59 23:59 Intake Total 2890 1450 Output Total 400 100 Balance 2490 1350 Meds/Results Medications: Active Medications Generic Name Dose Route Start Last Admin Trade Name Freq PRN Reason Stop Dose Admin Dextrose 12.5 gm 08/15/20 12:32 Dextrose 50% 25 Gm/50 Ml Syringe IV PUSH PRN PRN Hypoglycemia Protocol Glucagon 1 mg 08/15/20 12:32 Glucagon For Inj 1 Mg Vial IM PRN PRN Hypoglycemia Protocol Glucose 15 gm 08/15/20 12:32 Glucose Oral Gel 15 Gm Of Glucse In 37.5 Gm Tube PO PRN PRN Hypoglycemia Protocol Hydralazine HCl 10 mg 08/15/20 17:35 Hydralazine Hcl 20 Mg/Ml Vial IV PUSH Q8H PRN Blood Pressure - High Lactated Ringer's 1,000 mls @ 125 mls/hr 08/15/20 11:10 08/16/20 06:51 Lr - Lactated Ringers Iv IV CONT 125 mls/hr .Q8H FORTINO Administration Dextrose 1,000 mls @ 100 mls/hr 08/15/20 12:32 Dextrose 5% 1,000 Ml IVPB PRN PRN Hypoglycemia Protocol Octreotide Acetate 500 mcg/ 100 mls @ 10 mls/hr 08/15/20 20:00 08/16/20 04:51 Dextrose IV CONT 50 mcg/hr .Q10H FORTINO 10 mls/hr Administration 50 MCG/HR Lactated Ringer's 1,000 mls @ 150 mls/hr 08/16/20 09:20 08/16/20 11:41 Lr - Lactated Ringers Iv IV CONT 150 mls/hr .Q6H40M FORTINO Administration Insulin Aspart 2 - 5 units 08/15/20 12:35 08/16/20 06:56 Insulin Aspart (*Bkc) 100 Units/Ml SUB-Q Not Given Q6H [facility] Protocol Lorazepam 0.5 mg 08/15/20 12:40 Lorazepam Inj (*Crx) 2 Mg/Ml Vial IV PUSH Q6H PRN Anxiety Morphine Sulfate 4 mg 08/15/20 11:07 08/16/20 09:27 Morphine Sulfate (*Crx) 4 Mg/Ml Inj IV PUSH 4 mg Q2H PRN Administration Pain Rated 7-10 Ondansetron HCl 4 mg 08/15/20 11:07 08/15/20 14:57 Ondansetron Inj 4 Mg/2 Ml Vial IV PUSH 4 mg Q4H PRN Administration Nausea Pantoprazole Sodium 40 mg 08/15/20 17:00 08/16/20 09:21 Pantoprazole Sodium Iv 40 Mg Vial IV PUSH 40 mg BID FORTINO Administration Radiology Results: ITS Impressions Abdomen/Pelvis CT 08/15/20 10:43 IMPRESSION: 1. Cirrhosis and splenomegaly consistent with secondary portal venous hypertension. 2. Mild retroperitoneal stranding in the upper abdomen most likely related to cirrhosis and portal venous hypertension but would correlate with amylase and lipase levels to exclude acute cholecystitis. 3. Moderate-sized pericardial effusion. Labs Labs: Laboratory Results - last 24 hr 08/15/20 08/15/20 08/15/20 13:30 14:17 17:06 Hgb 11.5 L 11.0 L Hct 35.0 L 33.4 L Sodium Potassium Chloride Carbon Dioxide Anion Gap BUN Creatinine Estim Creat Clear Calc Estimated GFR Glucose POC Capillary Glucose 183 H Hemoglobin A1c Calcium Magnesium Ferritin Total Bilirubin AST ALT Alkaline Phosphatase Lactate Dehydrogenase Total Protein Albumin 08/15/20 08/15/20 08/15/20 17:50 22:57 23:59 Hgb
--- NOTE | 2020-08-16 12:01 | WPDGICN ---
Assessment and Plan Assessment and plan (1) Upper gastrointestinal hemorrhage: Code(s): K92.2 - Gastrointestinal hemorrhage, unspecified Status: Acute Assessment and Plan: will proceed with urgent egd, differential include ulcers, esophagitis but also varices because history of cirrhosis already on iv protonix and octreotide trend h/h and continue with supportive care will add rocephin in setting of upper GIB and cirrhosis (2) Hematemesis: Code(s): K92.0 - Hematemesis Status: Acute Assessment and Plan: on medical therapy, EGD now (3) Acute blood loss anemia: Code(s): D62 - Acute posthemorrhagic anemia Status: Acute Assessment and Plan: monitor h/h (4) Decompensation of cirrhosis of liver: Code(s): K72.90 - Hepatic failure, unspecified without coma; K74.60 - Unspecified cirrhosis of liver Status: Acute Assessment and Plan: previous presentation with ascites, he will follow up soon with community outreach worker [facility] he is on lasix and aldactone because ascites, also 2g na diet. (5) Portal hypertensive gastropathy: Code(s): K76.6 - Portal hypertension; K31.89 - Other diseases of stomach and duodenum Status: Acute (6) Pericardial effusion: Code(s): I31.3 - Pericardial effusion (noninflammatory) Status: Acute Assessment and Plan: incidental finding by CT scan, primary ordered 2d-echo GI Consult Note Consult date/time: 08/16/20 12:01 Reason for consult: melena, hematemesis, cirrhosis HPI: Matt Worley II is a 50 year old male who is my clinic patient and diagnosed with cirrhosis, complicated with ascites on lasix and aldactone, possible SBP in the past, he has seen community outreach worker in [facility] (differential diagnosis include ?Esteban, AIH because abnormal labs). 03/2020 egd showed PHG without varices and colonoscopy with small polyps (also had normal random colon biopsies because history of diarrhea), also chronic abdominal pain using intermittently tramadol and bentyl, using omeprazole 20mg daily because gerd. He came here with 2 days of dark tarry stools and yesterday small amount of coffee ground emesis, also lightheadedness. He was started on protonix and octreotide drip and kept npo. BUN 51 down to 25, creatinine 0.7, hb 12.[address] scan reviewed, cirrhosis and splenomegaly consistent with secondary portal venous hypertension, moderate-sized pericardial effusion. Review of Systems Constitutional: Constitutional: Denies headache(s) and Reports lethargy Eyes: Eyes: Denies blurry vision ENT: Reports Normal hearing present, Denies headache(s) and Denies neck pain Cardiovascular: Cardiovascular: Denies chest pain and Denies dyspnea Respiratory: Respiratory: Denies dyspnea Gastrointestinal: Gastrointestinal: Reports no additional gastrointestinal complaints Genitourinary: Genitourinary: Denies dysuria Musculoskeletal: Musculoskeletal: Denies neck pain Integumentary/Breasts: Skin/Breast: Denies dry skin Neurologic: Reports Normal hearing present, Denies headache(s) and Denies weakness Psychiatric: Psychiatric: Denies anxiety Endocrine: Endocrine: Denies change in body appearance Hematologic/Lymphatic: Hematologic/Lymphatic: Denies easy bleeding Allergic/Immunologic: Allergic/Immunologic: Denies urticaria PMFSH Past Medical History Medical History Acute blood loss anemia Arthritis Cirrhosis of liver with ascites Decompensation of cirrhosis of liver Gastroesophageal reflux disease Hematemesis History of kidney stones Hypertension Portal hypertensive gastropathy Noted on endoscopy on 03/23/[address] Duran. Prostate cancer Status post radiation seed implantation. Smoker Spontaneous bacterial peritonitis Tobacco use Surgical History Surgical History History of appendectomy History of cholecystectomy History of inguinal hernia repair Hist
[2020-08-16] MEDS: BENZOCAINE (*SP) 60 ML SPRAY CAN (HURRICAINE) 1 SPRAY MUCOUS MEM (12:07)
[2020-08-16 12:29] LABS: Glucose Point of Care 157 (65-105)
--- NOTE | 2020-08-16 13:55 | PM.IMPN ---
Progress Note: A&P Assessment and Plan (1) GI bleed: Code(s): K92.2 - Gastrointestinal hemorrhage, unspecified Status: Acute Assessment and Plan: Acute blood loss likely due to gastritis, ulcers and possibly esophageal varices from cirrhosis noted on the EGD today -hemoglobin has been stable and he has not had any recurrence of melena or hematemesis -will monitor overnight (2) Hypertension: Code(s): I10 - Essential (primary) hypertension Status: Chronic Assessment and Plan: Patient's blood pressure is 93/52 at this time. -will hold his furosemide at this time because of his low blood pressures but this will need to be reacted soon since he has history liver failure (3) Cirrhosis of liver with ascites: Code(s): K74.60 - Unspecified cirrhosis of liver; R18.8 - Other ascites Status: Chronic Assessment and Plan: As stated above, the patient sees [facility] and plans to go back and follow-up with them -I talked to him about his positive MEL and that he may have autoimmune hepatitis -will ask GI what their thoughts are -will likely need further testing or possible liver biopsy at [facility] in the future -he is not in acute liver failure, no need for transfer at this time. (4) Elevated blood sugar: Code(s): R73.9 - Hyperglycemia, unspecified Status: Acute Assessment and Plan: A1c 5.2 -no further diabetic diet or Accu-Cheks needed (5) Acute blood loss anemia: Code(s): D62 - Acute posthemorrhagic anemia Status: Acute Assessment and Plan: As above (6) Pericardial effusion: Code(s): I31.3 - Pericardial effusion (noninflammatory) Status: Acute Assessment and Plan: Patient has no symptoms such as dyspnea on exertion or shortness of breath -good heart sounds on exam, cardiac tamponade not suspected -will check echo -could be due to liver failure but seems odd since he has no ascites noted on his CT -MEL positive, autoimmune? (7) Esophageal varices: Code(s): I85.00 - Esophageal varices without bleeding Status: Acute Assessment and Plan: Noted on EGD (8) Gastritis: Code(s): K29.70 - Gastritis, unspecified, without bleeding Status: Acute Assessment and Plan: Continue Protonix Time Spent With Patient Time with patient: 25 - 35 minutes Subjective Date/time seen: 08/16/20 13:55 Interval history: Pt is a 50-year-old male here for hematemesis found to have gastritis, ulcers and varices. Patient was seen today and states he has not had any further vomiting. He has not had a bowel movement since this morning. He is still having significant abdominal pain that starts in left upper quadrant and goes to the midline. He states he has no shortness of breath or dyspnea on exertion. He has no history of pericardial effusion that he knows of. He sees a liver specialist at [facility] and says he is undergoing testing but is unsure if he has autoimmune hepatitis. I explained to him that he has some evidence on labs from the past and that it is very important to follow-up with his specialist about this as he may benefit from a biopsy or further treatment. He understands and agrees. He states his stomach does not feel as full as it has in the past but if he eats salty foods, he will swell up. Review of Systems Review of Systems: All systems reviewed & are unremarkable except as noted in HPI and below Exam Narrative: Exam Narrative: General: Well developed well nourished patient in NAD HEENT: normocephalic Neck: supple Neuro: Alert and oriented x4 CV:RRR Resp:CTA Abd: Soft, nondistended. Pain to the epigastric area as well as the left upper quadrant. Positive bowel sounds Extremities: No swelling, erythema, or pain to palpation. Objective Data Vital Signs Vital Signs: Vital Signs - 24 hr 08/15/20 14:24 08/15/20 16:00 08/15/20 19:23 Temperature 98.
[2020-08-16] MEDS: ONDANSETRON INJ 4 MG/2 ML VIAL IV PUSH (17:38)
--- NOTE | 2020-08-16 18:09 | PC.NURSE ---
Pt vomited most of his dinner. Some blood present. Zofran given. Pt states he is feeling ok.
[2020-08-16] MEDS: NEOMYCIN/POLYMYXIN/BACITRACIN OINTMENT PACKET 1 PACKET (19:38)
[2020-08-17] VITALS (9 sets, daily range): BP systolic 102–120; BP diastolic 59–67; PULSE 84–97; RESP 14–18; TEMP 36–36.7; O2SAT 96–98
[2020-08-17] MEDS: MORPHINE SULFATE (*CRX) 4 MG/ML INJ IV PUSH ×4 (02:02→08:17)
[2020-08-17 05:44] LABS: Hematocrit 29.2 % (42.0-52.0); Hemoglobin 9.4 g/dL (14.0-18.0)
[2020-08-17 06:04] LABS: Potassium 3.9 mmol/L (3.4-5.0)
[2020-08-17 06:06] LABS: Alanine Aminotransferase 15 U/L (4-50); Albumin Level 3.1 g/dL (3.5-5.1); Alkaline Phosphatase 75 U/L (38-126); Anion Gap 2 mmol/L (8-16); Aspartate Amino Transferase 48 U/L (17-59); Bilirubin,Total 0.3 mg/dL (0.2-1.3); Blood Urea Nitrogen 18 mg/dL (9-20); Calcium 8.5 mg/dL (8.4-10.2); Carbon Dioxide 31 mmol/L (22-30); Chloride 102 mmol/L (98-107); Estimated CRCL calculation 110 ml/min; Estimated Glomerular Filt Rate > 60; Glucose 128 mg/dL (75-110); Sodium 135 mmol/L (137-145)
[2020-08-17] MEDS: PANTOPRAZOLE SODIUM IV 40 MG VIAL IV PUSH ×2 (08:18→16:51)
--- NOTE | 2020-08-17 09:39 | WPDANESPN ---
Anes - Prog Note Post-Op Date/Time: 08/17/20 09:39 Cardiovascular status: normal Respiratory status: normal Airway patency: baseline Mental status: baseline Post-Op hydration status: normal Vital Signs: Last Vital Signs Temp 36.6 C 08/17/20 04:07 Pulse 86 08/17/20 04:07 Resp 18 08/17/20 04:07 BP 102/59 L 08/17/20 04:07 Pulse Ox 98 08/17/20 04:07 Pain Score (VAS): 0 I/O: Intake & Output 08/16/20 08/17/20 08/17/20 23:59 07:59 15:59 Intake Total 314 50 240 Output Total 200 Balance 314 -150 240 Laboratory Tests 08/17/20 05:22 08/17/20 05:22 08/16/20 08/17/20 08/17/20 06:17 05:22 05:22 Hgb 9.4 L Hct 29.2 L Sodium 135 L Potassium 3.9 Chloride 102 Carbon Dioxide 31 H Anion Gap 2 L BUN 18 D Creatinine 0.60 L Estim Creat Clear Calc 110 Estimated GFR > 60 Glucose 128 H POC Capillary Glucose 157 H Calcium 8.5 Total Bilirubin 0.3 Direct Bilirubin 0.0 AST 48 ALT 15 Alkaline Phosphatase 75 Total Protein 6.0 L Albumin 3.1 L Post-procedural complaints: none Patient Feedback: Patient satisfied with anesthetic care.
[2020-08-17] MEDS: oxyCODONE HCL (*CRX) 5 MG TAB IR PO ×4 (11:28→23:28)
[2020-08-17 11:29] LABS: Hematocrit 28.8 % (42.0-52.0); Hemoglobin 9.5 g/dL (14.0-18.0)
--- NOTE | 2020-08-17 11:31 | PM.IMPN ---
Progress Note: A&P Assessment and Plan (1) GI bleed: Code(s): K92.2 - Gastrointestinal hemorrhage, unspecified Status: Acute Assessment and Plan: Acute blood loss likely due to gastritis, ulcers and possibly esophageal varices from cirrhosis noted on the EGD 08/16/20 -He has hematemesis last night with dinner as well as dark tary stools and his h and h did drop a bit this morning -check h and h at 11 -observe overnight and if no further hematemesis will discharge tomorrow -Continue protonix BID (2) Hypertension: Code(s): I10 - Essential (primary) hypertension Status: Chronic Assessment and Plan: Patient's blood pressure is 102/59 at this time. -will restart lasix at lower dose. he is unsure the dose he takes at home (3) Cirrhosis of liver with ascites: Code(s): K74.60 - Unspecified cirrhosis of liver; R18.8 - Other ascites Status: Chronic Assessment and Plan: As stated above, the patient sees [facility] and plans to go back and follow-up with them -I talked to him about his positive MEL and that he may have autoimmune hepatitis and needs f/u with his liver specialist warren -will likely need further testing or possible liver biopsy at [facility] in the future -he is not in acute liver failure, no need for transfer at this time. -continues to have abdominal pain (unchanged since february). Will try bentyl. f/u with GI (4) Elevated blood sugar: Code(s): R73.9 - Hyperglycemia, unspecified Status: Acute Assessment and Plan: A1c 5.2 -no further diabetic diet or Accu-Cheks needed (5) Acute blood loss anemia: Code(s): D62 - Acute posthemorrhagic anemia Status: Acute Assessment and Plan: As above -recheck h and h (6) Pericardial effusion: Code(s): I31.3 - Pericardial effusion (noninflammatory) Status: Acute Assessment and Plan: Patient has no symptoms such as dyspnea on exertion or shortness of breath -good heart sounds on exam, cardiac tamponade not suspected -echo shows mild effusion -educated pt on symptoms to seek medical care for (passing out, chest pain, VIZCARRA etc) -could be due to liver failure but seems odd since he has no ascites noted on his CT -MEL positive, autoimmune? (7) Esophageal varices: Code(s): I85.00 - Esophageal varices without bleeding Status: Acute Assessment and Plan: Noted on EGD (8) Gastritis: Code(s): K29.70 - Gastritis, unspecified, without bleeding Status: Acute Assessment and Plan: Continue Protonix Subjective Date/time seen: 08/17/20 11:31 Interval history: Pt is a 50-year-old male here for hematemesis found to have gastritis, ulcers and varices. Patient was seen today and states he has had hematemesis with his dinner last night and some black stool yesterday. he has not had any further hematemesis and did eat breakfast today. he continues to have abdominal pain 12/22 but says this has been going on since january and is actually unchanged. I spoke with him about his echo and that he needs to quit smoking. He has a stress test 4 years ago which was normal and has not had any cardiac symptoms (CP, VIZCARRA, SOB walking up stairs or on flat surfaces) since that stress test. Exam Narrative: Exam Narrative: General: Well developed well nourished patient in NAD HEENT: normocephalic Neck: supple Neuro: Alert and oriented x4 CV:RRR Resp:CTA Abd: Soft, nondistended. Pain to the epigastric area. Positive bowel sounds Extremities: No swelling, erythema, or pain to palpation. Objective Data Vital Signs Vital Signs: Vital Signs - 24 hr 08/16/20 11:42 08/16/20 12:26 08/16/20 12:36 Temperature 96.9 F L Pulse Rate 86 89 80 Respiratory Rate 16 19 16 Blood Pressure 114/65 98/53 L 90/57 L Pulse Oximetry 95 93 93 08/16/20 12:46 08/16/20 15:24 08/16/20 16:00 Temperature 97.3 F L Pulse Rate 81 85 91 Respira
[2020-08-17] MEDS: DICYCLOMINE HCL 10 MG CAPSULE 20 MG PO (15:32)
--- NOTE | 2020-08-17 16:01 | WPDGIPROGNO ---
Progress Note: A&P Assessment and Plan (1) Gastric ulcer: Code(s): K25.9 - Gastric ulcer, unspecified as acute or chronic, without hemorrhage or perforation Status: Acute Assessment and Plan: egd showed small non-bleeding gastric ulcers, also small esophageal varices without signs of bleeding continue with protonix bid (2) Acute blood loss anemia: Code(s): D62 - Acute posthemorrhagic anemia Status: Acute Assessment and Plan: continue to monitor ppi bid (3) Hematemesis: Code(s): K92.0 - Hematemesis Status: Acute Assessment and Plan: denies any more (4) Cirrhosis of liver with ascites: Code(s): K74.60 - Unspecified cirrhosis of liver; R18.8 - Other ascites Status: Chronic Assessment and Plan: patient will need follow-up with his qa tech (5) Portal hypertensive gastropathy: Code(s): K76.6 - Portal hypertension; K31.89 - Other diseases of stomach and duodenum Status: Acute Subjective Date/time seen: 08/17/20 16:01 Interval history: he is feeling better today, no more nausea today, tolerating diet Review of Systems Review of Systems: All systems reviewed & are unremarkable except as noted in HPI and below Exam Const: General: comfortable and no acute distress HENMT: General nose exam: Normal nares present Eyes: General: appearance normal, both eyes and all related structures Neck: Neck: no JVD Resp: Auscultation: clear to auscultation bilaterally Cardio: Rate: regular rate Rhythm: regular rhythm GI: Inspection: non-distended GI Palp: Yes Soft to palpation, Yes Tenderness to palpation present (GI) (mild ttp, no rebound) and No Guarding due to palpation present (GI) Auscultation: normal bowel sounds Skin: General skin exam: normal color Neuro: Speech: normal speech Extrem: General: normal to inspection Psych: Mental Status: mental status grossly normal Objective Data Vital Signs Vital Signs: Vital Signs - 24 hr 08/16/20 19:21 08/16/20 20:00 08/16/20 23:55 Temperature 97.9 F Pulse Rate 87 91 Respiratory Rate 18 Blood Pressure 109/70 108/68 Pulse Oximetry 95 08/17/20 00:00 08/17/20 04:00 08/17/20 04:07 Temperature 97.9 F Pulse Rate 89 84 86 Respiratory Rate 18 Blood Pressure 102/59 L Pulse Oximetry 98 08/17/20 13:30 Temperature 98.0 F Pulse Rate 89 Respiratory Rate 16 Blood Pressure 105/60 Pulse Oximetry 98 Intake/Output Intake/Output: Intake & Output 08/14/20 08/15/20 08/16/20 08/17/20 23:59 23:59 23:59 23:59 Intake Total 2890 2784 530 Output Total 400 250 200 Balance 2490 2534 330 Meds/Results Medications: Active Medications Generic Name Dose Route Start Last Admin Trade Name Freq PRN Reason Stop Dose Admin Dicyclomine HCl 20 mg 08/17/20 11:41 08/17/20 15:32 Dicyclomine Hcl 10 Mg Capsule PO 20 mg QID PRN Administration Abdominal Cramping Furosemide 40 mg 08/18/20 09:00 Furosemide 40 Mg Tablet PO DAILY FORTINO Hydralazine HCl 10 mg 08/15/20 17:35 Hydralazine Hcl 20 Mg/Ml Vial IV PUSH Q8H PRN Blood Pressure - High Lorazepam 0.5 mg 08/15/20 12:40 Lorazepam Inj (*Crx) 2 Mg/Ml Vial IV PUSH Q6H PRN Anxiety Ondansetron HCl 4 mg 08/15/20 11:07 08/16/20 17:38 Ondansetron Inj 4 Mg/2 Ml Vial IV PUSH 4 mg Q4H PRN Administration Nausea Oxycodone HCl 5 mg 08/17/20 11:06 08/17/20 15:31 Oxycodone Hcl (*Crx) 5 Mg Tab Ir PO 5 mg Q4H PRN Administration Pain Rated 7-10 Pantoprazole Sodium 40 mg 08/15/20 17:00 08/17/20 08:18 Pantoprazole Sodium Iv 40 Mg Vial IV PUSH 40 mg BID FORTINO Administration Radiology Results: ITS Impressions Abdomen/Pelvis CT 08/15/20 10:43 IMPRESSION: 1. Cirrhosis and splenomegaly consistent with secondary portal venous hypertension. 2. Mild retroperitoneal stranding in the upper abdomen most likely related to cirrhosis and por
[2020-08-17] MEDS: ACETAMINOPHEN 325 MG TABLET 650 MG PO (16:50)
[2020-08-17] MEDS: LORazepam INJ (*CRX) 2 MG/ML VIAL 0.5 MG IV PUSH (21:13)
[2020-08-18] VITALS: PULSE 97
[2020-08-18] MEDS: oxyCODONE HCL (*CRX) 5 MG TAB IR PO ×2 (03:46→07:49)
[2020-08-18 04:19] VITALS: PULSE 90
[2020-08-18 05:20] VITALS: BP 122/68; PULSE 91; RESP 16; TEMP 36.9; O2SAT 97
[2020-08-18 07:02] LABS: Hematocrit 30.6 % (42.0-52.0); Hemoglobin 10.1 g/dL (14.0-18.0)
[2020-08-18 08:00] VITALS: PULSE 87; RESP 16; O2SAT 97
[2020-08-18] MEDS: FUROSEMIDE 40 MG TABLET PO (08:01)
[2020-08-18] MEDS: PANTOPRAZOLE SODIUM IV 40 MG VIAL IV PUSH (08:01)
[2020-08-18 12:00] VITALS: PULSE 90
--- NOTE | 2020-08-18 12:10 | PC.NURSE ---
Extra large brown soft stool in toilet.
--- NOTE | 2020-08-18 12:54 | PM.DS ---
DS: Admitting Diagnosis Admitting Diagnosis Admitting Diagnosis: Hematemesis DS: Discharge Diagnosis Discharge Diagnosis (1) GI bleed: Code(s): K92.2 - Gastrointestinal hemorrhage, unspecified Status: Acute Assessment and Plan: Acute blood loss likely due to gastritis, ulcers and possibly esophageal varices from cirrhosis noted on the EGD 08/16/20 -No further hematemesis last night and melena is improving -h and h at discharge 10.1 -Continue protonix BID -educated about worrisome signs and symptoms to come back to emergency room for (2) Hypertension: Code(s): I10 - Essential (primary) hypertension Status: Chronic Assessment and Plan: Patient's blood pressure is 122/68 at this time. -continue home medications (3) Cirrhosis of liver with ascites: Code(s): K74.60 - Unspecified cirrhosis of liver; R18.8 - Other ascites Status: Chronic Assessment and Plan: As stated above, the patient sees [facility] and plans to go back and follow-up with them -I talked to him about his positive MEL and that he may have autoimmune hepatitis and needs f/u with his liver specialist warren -will likely need further testing or possible liver biopsy at [facility] in the future -he is not in acute, decompensated liver failure -continues to have abdominal pain, add carafate HS to help with pain. he also has chronic pain in his abdomen since his cirrhosis diagnosis. The abdominal pain was not worse with eating and was mostly in the lower quadrants and epigastric area. If he continues to have pain after a week or so on PPI, may need to have the gallbladder assessed outpatient to exclude gallbladder abnormality. (4) Elevated blood sugar: Code(s): R73.9 - Hyperglycemia, unspecified Status: Acute Assessment and Plan: A1c 5.2 -no further diabetic diet or Accu-Cheks needed (5) Acute blood loss anemia: Code(s): D62 - Acute posthemorrhagic anemia Status: Acute Assessment and Plan: As above (6) Pericardial effusion: Code(s): I31.3 - Pericardial effusion (noninflammatory) Status: Acute Assessment and Plan: Patient has no symptoms such as dyspnea on exertion or shortness of breath -good heart sounds on exam, cardiac tamponade not suspected -echo shows mild effusion -educated pt on symptoms to seek medical care for (passing out, chest pain, VIZCARRA etc) -could be due to liver failure but seems odd since he has no ascites noted on his CT -MEL positive, autoimmune? (7) Esophageal varices: Code(s): I85.00 - Esophageal varices without bleeding Status: Acute Assessment and Plan: Noted on EGD (8) Gastritis: Code(s): K29.70 - Gastritis, unspecified, without bleeding Status: Acute Assessment and Plan: Continue Protonix DS: Summary Hospital Course Hospital Course: Who presented emergency room on August 15, 2020 for vomiting blood. Patient states he has a history of cirrhosis and started vomiting blood as well as having dark stools. Vitals in the ER were temperature 36.5 degree C, pulse 125, respiratory rate 18, blood pressure 145/88, pulse ox 98 on room air. Initial hemoglobin 11.5, hematocrit 35.0. BUN elevated likely due to GI bleed at 51. CT of the abdomen pelvis showed cirrhosis and splenomegaly consistent with portal vein hypertension. Also showed some mild retroperitoneal stranding in the upper abdomen likely related to cirrhosis but can't exclude cholecystitis. He also had a moderate sized pericardial effusion. Patient was admitted to the hospitalist service and underwent an EGD which showed gastritis, superficial ulcers, and possible esophageal varices. The bleeding had subsided and no intervention was done. He was started on a PPI b.i.d. which did improve his pain somewhat. He does have chronic pain to the abdomen but he had some new pain which started when he threw up blood. He fee
--- NOTE | 2020-08-18 13:41 | PC.NURSE ---
Patient voiced that he does not need the flu vaccine.
== END 2020-08-18 14:05 | disposition home or self-care (01) | DRG 241 ==
LOC: ANHED 09:56 → ANH3MED 13:29
PROVIDERS: Internal Medicine Gastroenterology; Nurse Practitioner; Physician Assistant; Admitting Provider Family Medicine; Emergency Provider Emergency Medicine; Visit Provider Internal Medicine
PROC: 0DJ08ZZ Inspection of Upper Intestinal Tract, Via Natural or Artificial Opening Endoscopic (ICD-10-PCS; CPT 43235; principal; 2020-08-16 14:45)
DX: K29.71 Gastritis, unspecified, with bleeding (principal); K25.4 Chronic or unspecified gastric ulcer with hemorrhage; D62 Acute posthemorrhagic anemia; I31.3 Pericardial effusion (noninflammatory); K74.60 Unspecified cirrhosis of liver; R18.8 Other ascites; K76.6 Portal hypertension; K31.89 Other diseases of stomach and duodenum; I85.10 Secondary esophageal varices without bleeding; R73.9 Hyperglycemia, unspecified; K21.9 Gastro-esophageal reflux disease without esophagitis; I10 Essential (primary) hypertension; F17.210 Nicotine dependence, cigarettes, uncomplicated; Z79.899 Other long term (current) drug therapy; Z85.46 Personal history of malignant neoplasm of prostate; Z90.49 Acquired absence of other specified parts of digestive tract
CPT/HCPCS: 36415; 74177; 80048; 80053; 80076; 82728; 82948; 83036; 83615; 83735; 85014; 85018; 85025; 85610; 85730; 86850; 86900; 86901; 87081; 88305; 88342; 93306; 96361; 96374; 96375; 99285; A9270; C9113; J0500; J0696; J2060; J2270; J2354; J2405; J2704; J7030; J7120; Q9967

== ENCOUNTER 2020-12-04 15:56 | Inpatient (IN) | payer OTHER, SELFPAY ==
--- NOTE | ~2020-12-04 | CT_ITS ---
EXAMINATION: CT abdomen pelvis w con DATE: 12/04/2020 17:03 INDICATION: Generalized abdominal pain. TECHNIQUE: Computed tomography (CT) of the abdomen and pelvis was performed with 100 mL Omnipaque 350 intravenous contrast. Automated exposure control and iterative reconstruction technique were employe d. The dose-length product was 500.73 mGy-cm. COMPARISON: CT abdomen and pelvis 08/15/2020 FINDINGS: The visualized portions of the lung bases demonstrate mild atelectasis. There is smooth sep arnoldo thickening, consistent with mild pulmonary edema. No pleural effusion. Cardiomegaly is noted. The re is a moderate-sized pericardial effusion. The liver demonstrates a nodular surface contour, consis tent with cirrhosis. There are changes of cholecystectomy. There is moderate splenomegaly measuring 1 6.5 cm. The pancreas, adrenal glands, and kidneys are normal. There are no dilated loops of bowel. Th ere are changes of appendectomy. There is a small volume of ascites. There is edema of the intraabdom inal fat. There is ascites in a small umbilical hernia. There are no pathologically enlarged lymph no shabnam. There are chronic compression fractures of T10 and T11. There is moderate lumbar spondylosis. IMPRESSION: 1. Cirrhosis of the liver with portal venous hypertension. 2. Small volume of ascites. 3. Moderate-sized pericardial effusion, mildly worsened from 08/15/20. 4. Mild pulmonary edema. Reviewed, dictated and finalized at location A.
--- NOTE | ~2020-12-04 | CT_ITS ---
EXAMINATION: CT chest abdomen w con INDICATION: Chest pain and shortness of breath, upper abdominal pain TECHNIQUE: Computed tomographic images of the chest and abdomen were obtained after the administratio n of 100 cc of Omnipaque 350 intravenous contrast. The dose-length product (DLP) was 569.15 mGy-cm. A utomated exposure control and iterative reconstruction technique were employed. COMPARISON: 12/04/2020 FINDINGS: CHEST: Cardiomegaly is noted. There is stable moderate-sized pericardial effusion. Right upper lobe n odules measuring 4 mm and 3 mm are present on images 54 and 57, respectively. There are small pleural effusions. Mild dependent atelectasis is noted. There is smooth interlobular septal thickening with a lower lung zone predominance. There is no pneumothorax. There is mild mediastinal and bilateral hil ar lymphadenopathy. Chronic compression fractures of T10 and T11 are again noted. ABDOMEN: The liver surface is nodular. The gallbladder is surgically absent. Splenomegaly is noted. T here is a trace volume of upper abdominal ascites. The pancreas and adrenal glands are unremarkable. The kidneys are normal. There are no pathologically enlarged abdominal lymph nodes. There is no free intraperitoneal gas or evidence of bowel obstruction. IMPRESSION: 1. Cardiomegaly with mild pulmonary edema. 2. Moderate-sized pericardial effusion without significant change. 3. Small pleural effusions. 4. Right upper lobe nodules measuring up to 4 mm, likely old granulomatous disease. If the patient huertas s no risk factors for malignancy, no further follow up is required. If there are risk factors for ma lignancy (i.e., history of smoking, asbestos or radiation exposure), consider followup CT in 12 month s. 5. Mild mediastinal and hilar lymphadenopathy, likely reactive. 6. Cirrhosis with portal hypertension. Reviewed, dictated and finalized at location A. IMPRESSION: 1. Cardiomegaly with mild pulmonary edema. 2. Moderate-sized pericardial effusion without significant change. 3. Small pleural effusions. 4. Right upper lobe nodules measuring up to 4 mm, likely old granulomatous dise ase. If the patient has no risk factors for malignancy, no further follow up is required. If there are risk factors for malignancy (i.e., history of smoking, asbestos or radiation exposure), consider followup CT in 12 months. 5. Mild mediastinal and hilar lymphadenopathy, likely reactive. 6. Cirrhosis with portal hypertension.
[2020-12-04 16:03] VITALS: BP 169/104; PULSE 94; RESP 13; TEMP 36.8; O2SAT 99
--- NOTE | 2020-12-04 16:24 | ED.GIBLEED ---
HPI - GI Bleed General Chief complaint: GI Bleed Stated complaint: vomiting blood, dk tarry stools Time Seen by Provider: 12/04/20 15:56 History of Present Illness HPI Narrative: 50 yo male w/ h/o cirrhosis presents to the ED for a GI bleed. He reports that he has not been feeling well for a few days. He began vomiting today, 3 times. Consisted of coffee ground material. He also reports multiple dark stools. He also complains of abdominal pain and distension. He was seen here 3 months ago for similar complaints. At that time he did have a small drop in H/H. EGD showed an ulcer and small varices with no active bleeding. Related Data Allergies Allergy/AdvReac Type Severity Reaction Status Date / Time No Known Allergies Allergy Verified 12/04/20 16:08 Review of Systems Constitutional: Constitutional: Denies fever(s) and Reports weakness ENT: Reports system reviewed and no additional complaints, except as documented Cardiovascular: Cardiovascular: Denies chest pain Respiratory: Respiratory: Denies dyspnea Gastrointestinal: Gastrointestinal: Reports as per HPI Genitourinary: Genitourinary: Reports no additional male genitourinary complaints Neurologic: Denies confusion, Denies dizziness and Denies focal weakness PMFSH Past Medical History Medical History Acute blood loss anemia Arthritis Cirrhosis of liver with ascites Decompensation of cirrhosis of liver Gastric ulcer Gastroesophageal reflux disease Hematemesis History of kidney stones Hypertension Portal hypertensive gastropathy Noted on endoscopy on 03/23/[address] Duran. Prostate cancer Status post radiation seed implantation. Smoker Spontaneous bacterial peritonitis Tobacco use Surgical History Surgical History History of appendectomy History of cholecystectomy History of inguinal hernia repair History of lithotripsy History of repair of right rotator cuff History of testicular surgery Resection of a tumor, unclear if malignant or benign. Family History Family History Mother Family history of malignant neoplasm of breast in first degree relative Other Family history of malignant neoplasm Social History Social History Social History: The patient has 2 grown children and he is raising a 6-year-old child. Surrogate decision maker: Marnie Washington Who is his aunt. His is dying of cancer this time.Code status: Full code. The patient still continues to smoke half a pack a cigarettes a day although he said he has not smoked any in a couple days. He denies any alcohol use recently he has had about 10 years ago he drank heavily. Then he goes on to say that his cirrhosis is not due to his alcohol use 10 years ago. He denies any marijuana or illicit drugs. Smoking packs per day: 0.5 Smoking cigarettes per day: 10.0 Years smoked: 20 Smoking pack-years: 10.00 Smoking status: Current some day smoker Tobacco type: cigarettes Second hand tobacco smoke exposure: Yes Alcohol intake: former Drinks per week: 2 Substance use: never Substance use type: does not use Additional living arrangements comments: Resides in [place] with his . 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 Gender identity (if verbalized by the patient): Male Spiritual care concerns: No Exam Const: General: no acute distress, alert and ill appearing chronically Orientation/consciousness: patient oriented x3 HENMT: Head: normal to inspection Neck: Neck: normal visual inspection and no lymphadenopathy Chest: Chest palpation & inspection: no tenderness Resp: Effort & Inspection: normal respiratory effort Auscultation: clear to auscultation bilaterally, no rales, no rhonchi and no wheezes Cardio: Jugular veno
[2020-12-04] MEDS: fentaNYL CITRATE INJ (*CRX) 100 MCG/2 ML VIAL 50 MCG IV PUSH (16:35)
[2020-12-04] MEDS: PANTOPRAZOLE SODIUM IV 40 MG VIAL 80 MG IV PUSH (16:36)
[2020-12-04 16:37] LABS: Basophils Percent Auto 0.5 % (0.2-1.2); Hemoglobin 12.1 g/dL (14.0-18.0); Immature Granulocyte Absolute 0.01 K/mm3 (0.00-0.031); Immature Granulocyte Percent A 0.3 % (0-0.5); Immature Platelet Fraction Pct 6.3 % (0.9-11.2); Lymphocytes Percent Auto 22.7 % (18.3-44.2); Mean Corpuscular HGB Conc 30.3 g/dl (32-36); Mean Corpuscular Hemoglobin 25.7 pg (26-34); Mean Corpuscular Volume 84.9 fl (80-100); Mean Platelet Volume 10.4 fl (7.4-10.4); Monocytes Absolute Auto 0.4 K/mm3 (0.1-0.6); Monocytes Percent Auto 9.8 % (2.6-8.5); Neutrophils Absolute Auto 2.6 K/mm3 (1.3-6.7); Neutrophils Percent Auto 65.7 % (45.5-73.1); Platelet Count Result 124 k/mm3 (150-375); Red Blood Count 4.71 M/mm3 (4.6-6.20); Red Cell Distribution Width 18.3 % (11.5-14.5)
[2020-12-04 16:43] LABS: INR 1.1; Prothrombin Time 14.7 Seconds (11.1-14.7)
[2020-12-04 16:44] LABS: Partial Thromboplastin Time 32.1 SECONDS (22.3-36.8)
[2020-12-04 16:45] LABS: Alanine Aminotransferase 13 U/L (4-50); Albumin Level 4.2 g/dL (3.5-5.1); Alkaline Phosphatase 145 U/L (38-126); Anion Gap 8 mmol/L (8-16); Aspartate Amino Transferase 40 U/L (17-59); Bilirubin,Total 0.7 mg/dL (0.2-1.3); Blood Urea Nitrogen 16 mg/dL (9-20); Calcium 9.4 mg/dL (8.4-10.2); Carbon Dioxide 27 mmol/L (22-30); Chloride 103 mmol/L (98-107); Estimated CRCL calculation 88 ml/min; Estimated Glomerular Filt Rate > 60; Glucose 129 mg/dL (75-110); Potassium 4.1 mmol/L (3.4-5.0); Sodium 138 mmol/L (137-145)
[2020-12-04] MEDS: OCTREOTIDE ACETATE 50 MCG/ML VIAL IV PUSH (17:27)
[2020-12-04 17:34] VITALS: BP 176/106; PULSE 93; RESP 14; O2SAT 88
[2020-12-04 17:37] VITALS: O2SAT 98
[2020-12-04] MEDS: MORPHINE SULFATE (*CRX) 4 MG/ML INJ IV PUSH (18:12)
--- NOTE | 2020-12-04 20:19 | ADMGEN ---
This patient, Matt Worley II, was admitted to [facility] Surg Room 314-01. Patient/family oriented to hospital policies and general routines including ID bracelet, bed and alarms, visiting hours, pain management, procedures, bathroom and other care routines, personal items, smoking policy, room service/diet, and visiting hours. Information on how to activate the Rapid Response Team has been discussed. Patient/Family are encouraged to report perceived risks to care and to ask questions if they do not understand what they are told or what they should do.
[2020-12-04 20:20] VITALS: BP 158/94; PULSE 82; RESP 20; TEMP 36.8; O2SAT 100; BMI 28.6
[2020-12-04] MEDS: MORPHINE SULFATE (*CRX) 2 MG/ML INJ 1 MG IV PUSH (21:56)
[2020-12-04 22:00] VITALS: BP 154/111; PULSE 89; RESP 18; TEMP 36.6; O2SAT 92
[2020-12-04 22:48] LABS: Hematocrit 40.6 % (42.0-52.0); Hemoglobin 12.4 g/dL (14.0-18.0)
[2020-12-04 23:21] VITALS: O2SAT 92
--- NOTE | 2020-12-04 23:40 | PM.IMHP ---
H&P: HPI History of Present Illness Date/Time: 12/04/20 23:40 Chief Complaint: Hematemesis and melena Narrative: This is a 50-year-old male with past medical history significant for hepatic cirrhosis, GI bleed, gastric ulcer. Patient states that he has had a 3 emesis of keyshawn red blood and blood clots that started the day before about 3 episodes and has had melena for the last 2 days or so. Patient states that he has been his usual state of health prior to these no fevers no rigors no chills no diarrhea no abdominal pain has had some weight loss. Patient has been following with portal architect in [place] for liver disease. He also follows up with gastroenterology locally. Patient denies any cough, sputum production, hemoptysis, shortness of breath ,chest pain ,dizziness, no syncope or near syncope. Patient states that he has been taking his pantoprazole and he is also on a water pill. He also noted increased abdominal girth and crampy abdominal pain that he rates at 8/10 in intensity alleviated by pain medication. Preliminary workup was significant for CT of abdomen and pelvis that shows cirrhosis of the liver with portal venous hypertension,small volume of ascites, moderate-sized pericardial effusion, mildly worsened from 08/15/20,mild pulmonary edema, CBC with hemoglobin of 12 and hematocrit of 40. Review of Systems Review of Systems: Narrative: Hematemesis and melena Constitutional: Constitutional: Denies chills, Denies lethargy, Denies malaise and Denies weakness Eyes: Eyes: Denies change in vision ENT: Denies dysphagia, Denies epistaxis, Denies nasal discharge and Denies nasal obstruction Cardiovascular: Cardiovascular: Denies chest pain, Denies dyspnea and Denies orthopnea Respiratory: Respiratory: Denies cough, Denies hemoptysis, Denies dyspnea and Denies dyspnea on exertion Gastrointestinal: Gastrointestinal: Reports abdominal pain, Reports melena, Reports GI cramping and Reports hematemesis Genitourinary: Genitourinary: Denies dysuria Musculoskeletal: Musculoskeletal: Denies arthralgias, Denies joint swelling and Denies muscle weakness Integumentary/Breasts: Skin/Breast: Denies rash Neurologic: Denies dizziness, Denies syncope, Denies focal weakness and Denies Sensory deficit (Neuro) Psychiatric: Psychiatric: Reports no additional psychiatric complaints Endocrine: Endocrine: Reports no additional endocrine complaints Hematologic/Lymphatic: Hematologic/Lymphatic: Reports no additional hematologic/lymphatic complaints Allergic/Immunologic: Allergic/Immunologic: Reports no additional allergic/immunologic complaints PMFSH Past Medical History Medical History Acute blood loss anemia Arthritis Cirrhosis of liver with ascites Decompensation of cirrhosis of liver Gastric ulcer Gastroesophageal reflux disease Hematemesis History of kidney stones Hypertension Portal hypertensive gastropathy Noted on endoscopy on 03/23/[address] Duran. Prostate cancer Status post radiation seed implantation. Smoker Spontaneous bacterial peritonitis Tobacco use Surgical History Surgical History History of appendectomy History of cholecystectomy History of inguinal hernia repair History of lithotripsy History of repair of right rotator cuff History of testicular surgery Resection of a tumor, unclear if malignant or benign. Family History Family History Mother Family history of malignant neoplasm of breast in first degree relative Other Family history of malignant neoplasm Social History Social History Social History: The patient has 2 grown children and he is raising a 6-year-old child. Surrogate decision maker: Marnie Washington Who is his aunt. His is dying of cancer this time.Code status: Full code. The patient still armand
[2020-12-05] VITALS (13 sets, daily range): BP systolic 127–165; BP diastolic 81–103; PULSE 82–96; RESP 16–28; TEMP 36.4–37.1; O2SAT 96–99; BMI 28.6
[2020-12-05] MEDS: LACTATED RINGERS 1,000 ML 75 ML IV CONT ×2 (00:11→13:52)
[2020-12-05] MEDS: HYDROmorphone HCL INJ (*CRX) 1 MG/ML SYR 0.5 MG IV PUSH ×6 (00:11→20:43)
[2020-12-05 06:26] LABS: Hematocrit 37.3 % (42.0-52.0); Hemoglobin 11.5 g/dL (14.0-18.0)
--- NOTE | 2020-12-05 08:57 | WPDGICN ---
Assessment and Plan Assessment and plan (1) Gastrointestinal hemorrhage with melena: Code(s): K92.1 - Melena Status: Acute Assessment and Plan: I will schedule him for EGD to be done this morning. I suspect he will have the found to have varices. If so he will likely need to go on octreotide. (2) Cirrhosis: Code(s): K74.60 - Unspecified cirrhosis of liver Status: Acute Assessment and Plan: although we were told that he is followed at [facility], he admits that he only saw them 1 time . Fortunately his bilirubin and protime are normal. (3) Cirrhosis of liver with ascites: Code(s): K74.60 - Unspecified cirrhosis of liver; R18.8 - Other ascites Status: Chronic Assessment and Plan: he is scheduled for paracentesis today. I am not sure that he has enough ascites to remove. He is on furosemide. I am surprised that he is not on Aldactone. We will almost certainly be placing him on a nonselective beta-laura for portal hypertension GI Consult Note Consult date/time: 12/05/20 08:57 HPI: Matt Worley II is a 50 year old male who was admitted to the emergency room yesterday with hematemesis. The day prior to that he had began having vomiting of red blood and blood clots. He also has had black tarry stools for the last 2 days. He has had no abdominal pain. . He is known to have cirrhosis and is followed by the liver clinic at [facility]. He actually has only seen them once. He had been placed on a diuretic for ascites. just a few months ago he was here and had endoscopy by Dr. Claros who describes small, grade 1 esophageal varices and gastritis. He does not believe that he has had banding of varices. [facility] Past Medical History Medical History Acute blood loss anemia Arthritis Cirrhosis of liver with ascites Decompensation of cirrhosis of liver Gastric ulcer Gastroesophageal reflux disease Hematemesis History of kidney stones Hypertension Portal hypertensive gastropathy Noted on endoscopy on 03/23/[address] Duran. Prostate cancer Status post radiation seed implantation. Smoker Spontaneous bacterial peritonitis Tobacco use Surgical History Surgical History History of appendectomy History of cholecystectomy History of inguinal hernia repair History of lithotripsy History of repair of right rotator cuff History of testicular surgery Resection of a tumor, unclear if malignant or benign. Family History Family History Mother Family history of malignant neoplasm of breast in first degree relative Other Family history of malignant neoplasm Social History Social History Social History: The patient has 2 grown children and he is raising a 6-year-old child. Surrogate decision maker: Marnie Washington Who is his aunt. His is dying of cancer this time.Code status: Full code. The patient still continues to smoke half a pack a cigarettes a day although he said he has not smoked any in a couple days. He denies any alcohol use recently he has had about 10 years ago he drank heavily. Then he goes on to say that his cirrhosis is not due to his alcohol use 10 years ago. He denies any marijuana or illicit drugs. Smoking packs per day: 0.5 Smoking cigarettes per day: 10.0 Years smoked: 20 Smoking pack-years: 10.00 Smoking status: Current every day smoker Tobacco type: cigarettes Second hand tobacco smoke exposure: Yes Alcohol intake: former Drinks per week: 2 Substance use: never Substance use type: does not use Additional living arrangements comments: Resides in [place] with his . 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 Gender identity (if verbalized by the patient): Male Spi
[2020-12-05 09:51] LABS: Magnesium 1.6 mg/dL (1.6-2.3)
[2020-12-05 10:05] LABS: Hematocrit 39.3 % (42.0-52.0)
--- NOTE | 2020-12-05 11:26 | PC.NURSE ---
Patient to GI lab per stretcher.
[2020-12-05] MEDS: LACTATED RINGERS 1,000 ML 150 ML IV CONT (12:00)
--- NOTE | 2020-12-05 12:05 | WPDANESEPPF ---
Anes - Initial Pre Proc Eval Procedure: Operation Date: 12/05/20 12:15 Proposed Procedures p Esophagogastroduodenoscopy - Carroll Guerin MD Date/Time: 12/05/20 12:05 Surgeon: Nikolay Hughes MD Pre Op Diagnosis: Upper GI Bleed Patient Data Age: 50 Gender: M Height: 1.68 m Weight: 80.5 kg Last Vital Signs Temp 97.6 F 12/05/20 11:40 Pulse 82 12/05/20 11:40 Resp 18 12/05/20 11:40 BP 141/90 H 12/05/20 11:40 Pulse Ox 96 12/05/20 11:40 Allergies Allergy/AdvReac Type Severity Reaction Status Date / Time No Known Allergies Allergy Verified 12/05/20 11:35 Home Medications Medication Instructions Recorded Confirmed Type dicyclomine 20 mg PO QID #20 tablet 04/02/20 12/04/20 Rx furosemide 120 mg PO DAILY #60 tablet 04/26/20 12/04/20 Rx pantoprazole [Protonix] 40 mg PO Q12H #60 tablet 08/18/20 12/04/20 Rx amoxicillin 500 mg PO Q12H 12/04/20 12/04/20 History Laboratory Tests 12/04/20 12/04/20 12/04/20 16:24 16:24 16:24 WBC 4.0 K/mm3 L K/mm3 (4.5-10.0) RBC 4.71 M/mm3 M/mm3 (4.6-6.20) Hgb 12.1 g/dL L g/dL (14.0-18.0) Hct 40.0 % L % (42.0-52.0) MCV 84.9 fl fl (80-100) MCH 25.7 pg L pg (26-34) MCHC 30.3 g/dl L g/dl (32-36) RDW 18.3 % H % (11.5-14.5) Plt Count 124 k/mm3 L k/mm3 (150-375) MPV 10.4 fl fl (7.4-10.4) Immature Gran % (Auto) 0.3 % % (0-0.5) Neut % (Auto) 65.7 % % (45.5-73.1) Lymph % (Auto) 22.7 % % (18.3-44.2) Campbell % (Auto) 9.8 % H % (2.6-8.5) Eos % (Auto) 1.0 % % (0-4.4) Baso % (Auto) 0.5 % % (0.2-1.2) Lymph # (Auto) 0.90 K/mm3 K/mm3 (0.9-3.2) Campbell # (Auto) 0.4 K/mm3 K/mm3 (0.1-0.6) Eos # (Auto) 0.0 K/mm3 K/mm3 (0-0.3) Baso # (Auto) 0.0 K/mm3 K/mm3 (0.0-0.1) Abs Immat Gran (auto) 0.01 K/mm3 K/mm3 (0.00-0.031) Absolute Neuts (auto) 2.6 K/mm3 K/mm3 (1.3-6.7) Absolute Nucleated RBC 0.0 K/mm3 K/mm3 (0.0-0.012) Nucleated RBC % 0.0 % % (0.0-0.2) % Immature Plt Fraction 6.3 % % (0.9-11.2) PT 14.7 Seconds Seconds (11.1-14.7) INR 1.1 APTT 32.1 SECONDS SECONDS (22.3-36.8) Sodium 138 mmol/L mmol/L (137-145) Potassium 4.1 mmol/L mmol/L (3.4-5.0) Chloride 103 mmol/L mmol/L (98-107) Carbon Dioxide 27 mmol/L mmol/L (22-30) Anion Gap 8 mmol/L mmol/L (8-16) BUN 16 mg/dL mg/dL (9-20) Creatinine 0.80 mg/dL mg/dL (0.7-1.3) Estim Creat Clear Calc 88 ml/min ml/min Estimated GFR > 60 (59 - ) Glucose 129 mg/dL H mg/dL (75-110) Calcium 9.4 mg/dL mg/dL (8.4-10.2) Magnesium Total Bilirubin 0.7 mg/dL mg/dL (0.2-1.3) AST 40 U/L U/L (17-59) ALT 13 U/L U/L (4-50) Alkaline Phosphatase 145 U/L H U/L (38-126) Total Protein 7.0 g/dL g/dL (6.3-8.2) Albumin 4.2 g/dL g/dL (3.5-5.1) Blood Type Antibody Screen Crossmatch 12/04/20 12/04/20 12/05/20 16:25 22:37 05:56 WBC RBC Hgb 12.4 g/dL L g/dL (14.0-18.0) Hct 40.6 % L % (42.0-52.0) MCV MCH MCHC RDW Plt Count MPV Immature Gran % (Auto) Neut % (Auto) Lymph % (Auto) Campbell % (Auto) Eos % (Auto) Baso % (Auto) Lymph # (Auto) Campbell # (Auto) Eos # (Auto) Baso # (Auto) Abs Immat Gran (auto) Absolute Neuts (auto) Absolute Nucleated RBC Nucleated RBC % % Immature Plt Fraction PT INR
--- NOTE | 2020-12-05 13:47 | PC.NURSE ---
Patient returned from Gi lab.
--- NOTE | 2020-12-05 17:28 | PM.IMPN ---
Progress Note: A&P Assessment and Plan (1) Hematemesis: Code(s): K92.0 - Hematemesis Status: Acute Assessment and Plan: Continue octreotide drip Continue pantoprazole drip H&H q.6 Transfuse as needed Supportive care Continue to monitor GI consult 12/05/20 17:28 patient is a 50-year-old male with a non alcoholic liver cirrhosis presented with a hematoma emesis, he does complains abdominal pain, currently he denies any nausea or vomiting, he has not seen canine service teacher yet, patient was seen by GI and was taken had a EGD showed nonbleeding varices and were banded. Patient also has a ascites there is not enough fluid for paracentesis, GI has place the patient on nadolol, will add low-dose furosemide and spironolactone will continue to monitor and further recommendation to follow. (2) Gastrointestinal hemorrhage with melena: Code(s): K92.1 - Melena Status: Acute Assessment and Plan: Continue to monitor (3) Ascites: Code(s): R18.8 - Other ascites Status: Acute Assessment and Plan: Therapeutic paracentesis ultrasound-guided in the morning (4) Portal hypertensive gastropathy: Code(s): K76.6 - Portal hypertension; K31.89 - Other diseases of stomach and duodenum Status: Acute Assessment and Plan: GI consult (5) Hypertension: Code(s): I10 - Essential (primary) hypertension Status: Chronic Assessment and Plan: Holding p.o. meds due to NPO status Continue to monitor (6) Tobacco use: Code(s): Z72.0 - Tobacco use Status: Chronic Assessment and Plan: Nicotine patch as needed Subjective Date/time seen: 12/05/20 17:28 patient is a 50-year-old male with a non alcoholic liver cirrhosis presented with a hematoma emesis, he does complains abdominal pain, currently he denies any nausea or vomiting, he has not seen canine service teacher yet, patient was seen by GI and was taken had a EGD showed nonbleeding varices and were banded. Patient also has a ascites there is not enough fluid for paracentesis, GI has place the patient on nadolol, will add low-dose furosemide and spironolactone will continue to monitor and further recommendation to follow. Review of Systems Review of Systems: All systems reviewed & are unremarkable except as noted in HPI and below Exam Narrative: Exam Narrative: Patient is comfortable, NAD HEENT: eyes are clear and none icteric LUNGS:CTA HEART: RR S1S2 ABD: Bowel sounds are faint distended Lower extremities: no edema SKIN: nonjaundiced Neuro: grossly intact. Objective Data Vital Signs Vital Signs: Vital Signs - 24 hr 12/04/20 17:34 12/04/20 17:37 12/04/20 20:20 Temperature 98.3 F Pulse Rate 93 82 Respiratory Rate 14 20 Blood Pressure 176/106 H 158/94 H Pulse Oximetry 88 L 98 100 12/04/20 22:00 12/04/20 23:21 12/05/20 00:00 Temperature 97.8 F Pulse Rate 89 88 Respiratory Rate 18 Blood Pressure 154/111 H Pulse Oximetry 92 92 12/05/20 04:00 12/05/20 06:00 12/05/20 08:00 Temperature 98.7 F Pulse Rate 88 82 82 Respiratory Rate 16 Blood Pressure 146/91 H Pulse Oximetry 99 12/05/20 08:45 12/05/20 11:40 12/05/20 12:51 Temperature 97.6 F Pulse Rate 82 96 Respiratory Rate 18 28 H Blood Pressure 141/90 H 127/81 Pulse Oximetry 98 96 96 12/05/20 13:01 12/05/20 13:11 12/05/20 14:00 Temperature 98.2 F Pulse Rate 82 82 84 Respiratory Rate 18 18 20 Blood Pressure 140/94 H 153/92 H 150/93 H Pulse Oximetry 98 98 99 12/05/20 16:00 Temperature Pulse Rate 88 Respiratory Rate Blood Pressure Pulse Oximetry Intake/Output Intake/Output: Intake & Output 12/02/20 12/03/20 12/04/20 12/05/20 23:59 23:59 23:59 23:59 Intake Total 50 2700 Output Total 150 Balance 50 2550 Meds/Results Medications: Active Medications Generic Name Dose Route Start Last Admin Trade Name Freq PRN Reason Stop Dose Admin Hydromorphone HCl 0.5 mg
[2020-12-05] MEDS: FUROSEMIDE INJ 40 MG/4 ML VIAL 20 MG IV PUSH (18:40)
[2020-12-05] MEDS: SPIRONOLACTONE 12.5 MG TABLET PO (18:40)
[2020-12-06] VITALS (11 sets, daily range): BP systolic 135–148; BP diastolic 56–89; PULSE 70–108; RESP 16–18; TEMP 36.4–36.9; O2SAT 91–97
[2020-12-06] MEDS: HYDROmorphone HCL INJ (*CRX) 1 MG/ML SYR 0.5 MG IV PUSH ×7 (00:11→23:30)
[2020-12-06 06:35] LABS: Hematocrit 40.2 % (42.0-52.0); Hemoglobin 12.2 g/dL (14.0-18.0); Mean Corpuscular HGB Conc 30.3 g/dl (32-36); Mean Corpuscular Hemoglobin 25.3 pg (26-34); Mean Corpuscular Volume 83.2 fl (80-100); Mean Platelet Volume 10.5 fl (7.4-10.4); Platelet Count Result 104 k/mm3 (150-375); Red Blood Count 4.83 M/mm3 (4.6-6.20); White Blood Count 4.2 K/mm3 (4.5-10.0)
[2020-12-06 06:52] LABS: Alanine Aminotransferase 13 U/L (4-50); Albumin Level 3.9 g/dL (3.5-5.1); Alkaline Phosphatase 125 U/L (38-126); Anion Gap 7 mmol/L (8-16); Aspartate Amino Transferase 36 U/L (17-59); Bilirubin,Total 0.7 mg/dL (0.2-1.3); Blood Urea Nitrogen 10 mg/dL (9-20); Calcium 8.9 mg/dL (8.4-10.2); Carbon Dioxide 31 mmol/L (22-30); Chloride 99 mmol/L (98-107); Estimated CRCL calculation 88 ml/min; Estimated Glomerular Filt Rate > 60; Glucose 125 mg/dL (75-110); Magnesium 1.6 mg/dL (1.6-2.3); Potassium 3.8 mmol/L (3.4-5.0); Sodium 137 mmol/L (137-145)
--- NOTE | 2020-12-06 07:35 | PC.NURSE ---
0715: Call from Radiology to inform that Dr. Guerin has ordered stat CT of chest and CT of abdomen w/ contrast. Endorsed to AM nurse to obtain consent form for contrast.
[2020-12-06] MEDS: FUROSEMIDE INJ 40 MG/4 ML VIAL 20 MG IV PUSH (08:03)
[2020-12-06 08:18] LABS: Hematocrit 40.5 % (42.0-52.0); Hemoglobin 12.4 g/dL (14.0-18.0); Immature Platelet Fraction Pct 6.2 % (0.9-11.2); Mean Corpuscular HGB Conc 30.6 g/dl (32-36); Mean Corpuscular Hemoglobin 25.9 pg (26-34); Mean Corpuscular Volume 84.6 fl (80-100); Mean Platelet Volume 9.8 fl (7.4-10.4); Platelet Count Result 116 k/mm3 (150-375); Red Blood Count 4.79 M/mm3 (4.6-6.20); Red Cell Distribution Width 18.3 % (11.5-14.5); White Blood Count 4.4 K/mm3 (4.5-10.0)
--- NOTE | 2020-12-06 08:43 | WPDANESPN ---
Anes - Prog Note Post-Op Date/Time: 12/06/20 08:43 Cardiovascular status: normal Respiratory status: normal Airway patency: baseline Mental status: baseline Post-Op hydration status: normal Vital Signs: Last Vital Signs Temp 36.9 C 12/06/20 06:00 Pulse 81 12/06/20 06:00 Resp 16 12/06/20 06:00 BP 148/89 H 12/06/20 06:00 Pulse Ox 97 12/06/20 06:00 Pain Score (VAS): 0/10. Patient resting in bed at time of assessment, appears comfortable. PCT at bedside. I/O: Intake & Output 12/05/20 12/06/20 12/06/20 23:59 07:59 15:59 Intake Total 1293 350 Output Total 1200 Balance 1293 -850 Laboratory Tests 12/06/20 08:12 12/06/20 05:56 12/04/20 12/05/20 12/05/20 16:25 05:56 09:41 WBC RBC Hgb 12.0 L Hct 39.3 L MCV MCH MCHC RDW Plt Count MPV % Immature Plt Fraction Sodium Potassium Chloride Carbon Dioxide Anion Gap BUN Creatinine Estim Creat Clear Calc Estimated GFR Glucose Calcium Magnesium 1.6 Total Bilirubin AST ALT Alkaline Phosphatase Total Protein Albumin Crossmatch See Detail 12/06/20 12/06/20 12/06/20 05:56 05:56 08:12 WBC 4.2 L 4.4 L RBC 4.83 4.79 Hgb 12.2 L 12.4 L Hct 40.2 L 40.5 L MCV 83.2 84.6 MCH 25.3 L 25.9 L MCHC 30.3 L 30.6 L RDW 18.0 H 18.3 H Plt Count 104 L 116 L MPV 10.5 H 9.8 % Immature Plt Fraction 7.0 6.2 Sodium 137 Potassium 3.8 Chloride 99 Carbon Dioxide 31 H Anion Gap 7 L BUN 10 D Creatinine 0.80 Estim Creat Clear Calc 88 Estimated GFR > 60 Glucose 125 H Calcium 8.9 Magnesium 1.6 Total Bilirubin 0.7 AST 36 ALT 13 Alkaline Phosphatase 125 Total Protein 7.0 Albumin 3.9 Crossmatch Post-procedural complaints: none Patient Feedback: Patient satisfied with anesthetic care.
[2020-12-06 09:16] LABS: Iron 51 ug/dL (49-181)
--- NOTE | 2020-12-06 09:23 | ECG_ITS ---
Measurements Intervals [place] Rate: 88 P: 47 NM: 173 QRS: 32 QRSD: 82 T: 35 QT: 377 QTc: 457 Interpretive Statements SINUS RHYTHM NONSPECIFIC T-WAVE ABNORMALITY- INF/HIGH LAT LEADS BASELINE ARTIFACT- II, III BORDERLINE ECG Electronically Signed On 12-06-2020 13:51:58 CDT by Og Brown D.O.
[2020-12-06 09:26] LABS: Percent Iron Saturation 10 % (20-50)
--- NOTE | 2020-12-06 09:49 | WPDANESPN ---
Anes - Prog Note Post-Op Date/Time: 12/06/20 09:49 Cardiovascular status: normal Respiratory status: normal Airway patency: baseline Mental status: baseline Post-Op hydration status: normal Vital Signs: Last Vital Signs Temp 36.9 C 12/06/20 06:00 Pulse 81 12/06/20 06:00 Resp 16 12/06/20 06:00 BP 148/89 H 12/06/20 06:00 Pulse Ox 97 12/06/20 06:00 Pain Score (VAS): 0 I/O: Intake & Output 12/05/20 12/06/20 12/06/20 23:59 07:59 15:59 Intake Total 1293 350 Output Total 1200 Balance 1293 -850 Laboratory Tests 12/06/20 08:12 12/06/20 05:56 12/04/20 12/04/20 12/05/20 16:24 16:25 05:56 WBC RBC Hgb Hct MCV MCH MCHC RDW Plt Count MPV % Immature Plt Fraction Sodium Potassium Chloride Carbon Dioxide Anion Gap BUN Creatinine Estim Creat Clear Calc Estimated GFR Glucose Calcium Magnesium 1.6 Iron 51 TIBC 488 % Saturation Pending Ferritin Pending Total Bilirubin AST ALT Alkaline Phosphatase Total Protein Albumin Vitamin B12 Folate Crossmatch See Detail 12/05/20 12/06/20 12/06/20 09:41 05:53 05:56 WBC 4.2 L RBC 4.83 Hgb 12.0 L 12.2 L Hct 39.3 L 40.2 L MCV 83.2 MCH 25.3 L MCHC 30.3 L RDW 18.0 H Plt Count 104 L MPV 10.5 H % Immature Plt Fraction 7.0 Sodium Potassium Chloride Carbon Dioxide Anion Gap BUN Creatinine Estim Creat Clear Calc Estimated GFR Glucose Calcium Magnesium Iron TIBC % Saturation Ferritin Total Bilirubin AST ALT Alkaline Phosphatase Total Protein Albumin Vitamin B12 Pending Folate Pending Crossmatch 12/06/20 12/06/20 05:56 08:12 WBC 4.4 L RBC 4.79 Hgb 12.4 L Hct 40.5 L MCV 84.6 MCH 25.9 L MCHC 30.6 L RDW 18.3 H Plt Count 116 L MPV 9.8 % Immature Plt Fraction 6.2 Sodium 137 Potassium 3.8 Chloride 99 Carbon Dioxide 31 H Anion Gap 7 L BUN 10 D Creatinine 0.80 Estim Creat Clear Calc 88 Estimated GFR > 60 Glucose 125 H Calcium 8.9 Magnesium 1.6 Iron TIBC % Saturation Ferritin Total Bilirubin 0.7 AST 36 ALT 13 Alkaline Phosphatase 125 Total Protein 7.0 Albumin 3.9 Vitamin B12 Folate Crossmatch Post-procedural complaints: none Patient Feedback: Patient satisfied with anesthetic care.
[2020-12-06 10:15] LABS: Folic Acid 12.5 ng/mL (2.76->20)
[2020-12-06] MEDS: SPIRONOLACTONE 12.5 MG TABLET PO ×2 (11:07→16:24)
[2020-12-06] MEDS: nadoloL 20 MG TABLET PO (11:07)
--- NOTE | 2020-12-06 12:12 | WPDGIPROGNO ---
Progress Note: A&P Assessment and Plan (1) Chest pain: Code(s): R07.9 - Chest pain, unspecified Status: Acute Assessment and Plan: this morning he states his chest is sore. He in fact felt short of breath and was uncomfortable if he took a deep breath . He notices yesterday after he had esophageal variceal banding. He is also complaining of pain in the left upper quadrant. He has no vomiting and has not seen any black or tarry stools but they have been dark brown (2) Gastrointestinal hemorrhage with melena: Code(s): K92.1 - Melena Status: Acute Assessment and Plan: no gross bleeding noted. (3) Esophageal varices: Code(s): I85.00 - Esophageal varices without bleeding Status: Acute Assessment and Plan: He had banding of varices yesterday. Now he is uncomfortable probably from the banding but his pain extending into the abdomen, coupled with his shortness of breath has been concern for other possible thoracic condition. I ordered a stat CT scan. Fortunately, the results had just come back and shown no serious changes such as perforation. Pericardial effusion is still there. We will have Cardiology see him (4) Cirrhosis: Code(s): K74.60 - Unspecified cirrhosis of liver Status: Acute Assessment and Plan: although we were told that he is followed at [facility], he admits that he only saw them 1 time . Fortunately his bilirubin and protime are normal. I told him that we need him to follow up with his stucco plasterer. He thinks that he actually was supposed to have been in their clinic today. He will called his doctor to make a follow-up appointment at [facility] with Dr. Medrano Subjective Date/time seen: 12/06/20 12:12 Review of Systems Review of Systems: All systems reviewed & are unremarkable except as noted in HPI and below Exam Const: General: uncomfortable Chest: Chest palpation & inspection: tenderness ( tenderness in area around the sternum) GI: Inspection: non-distended GI Palp: Yes abdominal tenderness ( left upper quadrant and epigastric area) Auscultation: normal bowel sounds Objective Data Vital Signs Vital Signs: Vital Signs - 24 hr 12/05/20 12:51 12/05/20 13:01 12/05/20 13:11 Temperature Pulse Rate 96 82 82 Respiratory Rate 28 H 18 18 Blood Pressure 127/81 140/94 H 153/92 H Pulse Oximetry 96 98 98 12/05/20 14:00 12/05/20 16:00 12/05/20 20:00 Temperature 36.8 C Pulse Rate 84 88 83 Respiratory Rate 20 Blood Pressure 150/93 H Pulse Oximetry 99 12/05/20 22:00 12/06/20 00:00 12/06/20 01:00 Temperature 37.1 C Pulse Rate 84 84 87 Respiratory Rate 20 Blood Pressure 165/103 H 142/88 H Pulse Oximetry 97 12/06/20 06:00 12/06/20 08:00 12/06/20 11:07 Temperature 36.9 C Pulse Rate 81 87 108 H Respiratory Rate 16 Blood Pressure 148/89 H Pulse Oximetry 97 Intake/Output Intake/Output: Intake & Output 12/03/20 12/04/20 12/05/20 12/06/20 23:59 23:59 23:59 23:59 Intake Total 50 3743 850 Output Total 150 1200 Balance 50 3593 -350 Meds/Results Medications: Active Medications Generic Name Dose Route Start Last Admin Trade Name Freq PRN Reason Stop Dose Admin Furosemide 20 mg 12/05/20 17:40 12/06/20 08:03 Furosemide Inj 40 Mg/4 Ml Vial IV PUSH 20 mg DAILY FORTINO Administration Hydralazine HCl 10 mg 12/05/20 23:23 Hydralazine 10 Mg Tablet PO Q6HR PRN Blood Pressure - High Hydromorphone HCl 0.5 mg 12/04/20 23:43 12/06/20 08:01 Hydromorphone Hcl Inj (*Crx) 1 Mg/Ml Syr IV PUSH 0.5 mg Q3H PRN Administration Pain Rated 7-10 Pantoprazole Sodium 80 mg/ 500 mls @ 50 mls/hr 12/04/20 16:10 12/06/20 11:02 Dextrose IV CONT 12/07/20 16:11 50 mls/hr .Q10H FORTINO Administration Nadolol 20 mg 12/06/20 09:00 12/06/20 11:07 Nadolol 20 Mg Tablet PO 20 mg QAM FORTINO Administration Spironolactone 12.5 mg
--- NOTE | 2020-12-06 13:53 | PM.IMPN ---
Progress Note: A&P Assessment and Plan (1) Hematemesis: Code(s): K92.0 - Hematemesis Status: Acute Assessment and Plan: Continue octreotide drip Continue pantoprazole drip H&H q.6 Transfuse as needed Supportive care Continue to monitor GI consult 12/06/20 13:53 12/05 patient is a 50-year-old male with a non alcoholic liver cirrhosis presented with a hematoma emesis, he does complains abdominal pain, currently he denies any nausea or vomiting, he has not seen travograph operator yet, patient was seen by GI and was taken had a EGD showed nonbleeding varices and were banded. Patient also has a ascites there is not enough fluid for paracentesis, GI has place the patient on nadolol, will add low-dose furosemide and spironolactone will continue to monitor and further recommendation to follow. 12/06 patient was seen by GI on 12/05 had a EGD and varics were banded today patient had an episode and hematoemesis, however patient hemoglobin is stable, patient was seen by GI again patient was complaining upper abdominal pain on left side and short of breath CT scan of the abdomen showed moderate pericardial effusion to further evaluate will do EKG, will consult Cardiology for further recommendationsn, patient remains clinically stable. (2) Gastrointestinal hemorrhage with melena: Code(s): K92.1 - Melena Status: Acute Assessment and Plan: Continue to monitor (3) Ascites: Code(s): R18.8 - Other ascites Status: Acute Assessment and Plan: Therapeutic paracentesis ultrasound-guided in the morning (4) Portal hypertensive gastropathy: Code(s): K76.6 - Portal hypertension; K31.89 - Other diseases of stomach and duodenum Status: Acute Assessment and Plan: GI consult (5) Hypertension: Code(s): I10 - Essential (primary) hypertension Status: Chronic Assessment and Plan: Holding p.o. meds due to NPO status Continue to monitor (6) Tobacco use: Code(s): Z72.0 - Tobacco use Status: Chronic Assessment and Plan: Nicotine patch as needed Subjective Date/time seen: 12/06/20 13:53 12/05 patient is a 50-year-old male with a non alcoholic liver cirrhosis presented with a hematoma emesis, he does complains abdominal pain, currently he denies any nausea or vomiting, he has not seen travograph operator yet, patient was seen by GI and was taken had a EGD showed nonbleeding varices and were banded. Patient also has a ascites there is not enough fluid for paracentesis, GI has place the patient on nadolol, will add low-dose furosemide and spironolactone will continue to monitor and further recommendation to follow. 12/06 patient was seen by GI on 12/05 had a EGD and varics were banded today patient had an episode and hematoemesis, however patient hemoglobin is stable, patient was seen by GI again patient was complaining upper abdominal pain on left side and short of breath CT scan of the abdomen showed moderate pericardial effusion to further evaluate will do EKG, will consult Cardiology for further recommendationsn, patient remains clinically stable. Review of Systems Review of Systems: All systems reviewed & are unremarkable except as noted in HPI and below Exam Narrative: Exam Narrative: Patient is comfortable, NAD HEENT: eyes are clear and none icteric LUNGS:CTA HEART: RR S1S2 ABD: Bowel sounds are faint distended Lower extremities: no edema SKIN: nonjaundiced Neuro: grossly intact. Objective Data Vital Signs Vital Signs: Vital Signs - 24 hr 12/05/20 14:00 12/05/20 16:00 12/05/20 20:00 Temperature 98.2 F Pulse Rate 84 88 83 Respiratory Rate 20 Blood Pressure 150/93 H Pulse Oximetry 99 12/05/20 22:00 12/06/20 00:00 12/06/20 01:00 Temperature 98.7 F Pulse Rate 84 84 87 Respiratory Rate 20 Blood Pressure 165/103 H 142/88 H Pulse Oximetry 97 12/06/20 06:00 12/06/20 08:00 12/06/20 11:07 Temperature 98.4 F Pulse
[2020-12-06] MEDS: CYANOCOBALAMIN INJ 1,000 MCG/ML VIAL 1000 MCG IM (14:37)
--- NOTE | 2020-12-06 15:49 | PM.CNCAR ---
Assessment and Plan Assessment and plan (1) Pericardial effusion: Code(s): I31.3 - Pericardial effusion (noninflammatory) Status: Acute Assessment and Plan: Pericardial effusion noted on a chest and abdomen CT that was performed today. Effusion is stable compared to CT performed on 12/04/2020 and one in August of this year. This effusion was also noted on an echocardiogram performed in August and was documented as measuring 5-10 mm. This is a chronic, stable problem and does not appear to be having any hemodynamic impact on the patient. (2) Chest pain: Code(s): R07.9 - Chest pain, unspecified Status: Acute Assessment and Plan: Patient's description of chest pain is atypical. He has reproducible chest wall pain to palpation. EKG did not show any ST -T wave abnormalities concerning for ischemia. Ischemic evaluation is not indicated at this time. History of Present Illness History of Present Illness Consult date/time: 12/06/20 15:49 Requesting physician: Ricardo Gama MD Consult reason: Other (pericardial effusion) Reason For Visit: Upper GI Bleed Narrative: This 50-year-old male we are seeing in consultation at the request of Dr. Gama for pericardial effusion shortness of breath. The patient presented to the hospital 2 days ago with complaints of hematemesis. He has a medical history significant for non alcoholic cirrhosis of the liver - he is followed by a systems admin, GI bleeding and ulcers. He says that he has been experiencing some chest discomfort when he breathes in deeply. He says that this chest discomfort is in his epigastric area and the left side of his chest. He states that when he takes a deep breath the pain spread all the way across his chest. He also notes that sometimes he wakes up in the middle the night experiencing this discomfort. He states this is been going on for a couple of weeks. He denies any left arm pain, jaw pain. He states that changing position and breathing out relieve the pain. The chest pain is not associated with exertion-she states that it comes and goes spontaneously and is worsened by deep breathing. He does not have any cardiac history that he is aware of. However, he did have a treadmill stress test performed about 1 year ago as part of a preoperative evaluation for shoulder surgery. According to the patient, this test was negative. He is also complaining of some shortness of breath. Review of Systems Review of Systems: All systems reviewed & are unremarkable except as noted in HPI and below Constitutional: Constitutional: Denies fatigue, Denies lethargy and Denies weakness Eyes: Eyes: Denies blurry vision ENT: Reports Normal hearing present Cardiovascular: Cardiovascular: Reports chest pain, Denies pedal edema, Denies leg edema, Denies lightheadedness and Denies palpitations Respiratory: Respiratory: Reports cough, Reports dyspnea and Denies dyspnea on exertion Gastrointestinal: Gastrointestinal: Reports abdominal pain, Denies constipation and Denies diarrhea Genitourinary: Genitourinary: Denies hematuria Musculoskeletal: Musculoskeletal: Denies back pain, Denies arthralgias and Denies joint swelling Integumentary/Breasts: Skin/Breast: Denies unusual bruising Neurologic: Reports headache(s) Psychiatric: Psychiatric: Denies anxiety and Denies depression Endocrine: Endocrine: Denies fatigue Hematologic/Lymphatic: Hematologic/Lymphatic: Denies easy bleeding and Denies easy bruising PMFSH Past Medical History Medical History Acute blood loss anemia Arthritis Cirrhosis of liver with ascites Decompensation of cirrhosis of liver Gastric ulcer Gastroesophageal reflux disease Hematemesis History of kidney stones Hypertension Portal hypertensive gastropathy Noted on endoscopy on 03/23/[address] Duran. Prostate cancer Status post radiation seed implantation. Smoker Spontaneous bacterial peritonitis Tobacco use
[2020-12-07] MEDS: HYDROmorphone HCL INJ (*CRX) 1 MG/ML SYR 0.5 MG IV PUSH ×6 (02:26→21:12)
[2020-12-07 05:32] VITALS: BP 132/89; PULSE 74; RESP 18; TEMP 36.6; O2SAT 95
[2020-12-07 06:51] LABS: Hematocrit 39.8 % (42.0-52.0); Hemoglobin 12.3 g/dL (14.0-18.0); Immature Platelet Fraction Pct 8.6 % (0.9-11.2); Mean Corpuscular HGB Conc 30.9 g/dl (32-36); Mean Corpuscular Hemoglobin 25.8 pg (26-34); Mean Corpuscular Volume 83.4 fl (80-100); Platelet Count Result 116 k/mm3 (150-375); Red Blood Count 4.77 M/mm3 (4.6-6.20); Red Cell Distribution Width 18.1 % (11.5-14.5); White Blood Count 4.8 K/mm3 (4.5-10.0)
[2020-12-07 06:58] LABS: Alanine Aminotransferase 11 U/L (4-50); Albumin Level 3.7 g/dL (3.5-5.1); Alkaline Phosphatase 121 U/L (38-126); Anion Gap 5 mmol/L (8-16); Aspartate Amino Transferase 35 U/L (17-59); Bilirubin,Total 0.7 mg/dL (0.2-1.3); Blood Urea Nitrogen 9 mg/dL (9-20); Calcium 9.1 mg/dL (8.4-10.2); Carbon Dioxide 31 mmol/L (22-30); Chloride 100 mmol/L (98-107); Estimated CRCL calculation 88 ml/min; Estimated Glomerular Filt Rate > 60; Glucose 122 mg/dL (75-110); Magnesium 1.7 mg/dL (1.6-2.3); Potassium 3.6 mmol/L (3.4-5.0); Sodium 136 mmol/L (137-145)
--- NOTE | 2020-12-07 07:04 | WPDGIPROGNO ---
Progress Note: A&P Assessment and Plan (1) Chest pain: Code(s): R07.9 - Chest pain, unspecified Status: Acute Assessment and Plan: much like yesterday, this morning he states his chest is sore, but less so. He was uncomfortable if he took a deep breath . He noticed some of this after he had esophageal variceal banding. He is also complaining of pain in the left upper quadrant. He has no vomiting and has not seen any black or tarry stools but they have been dark brown I told that his chest pain may be responsive to an anti-inflammatory as it has a pleuritic component. I told that long-term we do not want him on NSAIDs and aspirin because of the risk of bleeding but I would like to try him on a nonnarcotic medication. He is still receiving morphine. He may need to go home on hydrocodone (2) Gastrointestinal hemorrhage with melena: Code(s): K92.1 - Melena Status: Acute Assessment and Plan: no gross bleeding noted. (3) Esophageal varices: Code(s): I85.00 - Esophageal varices without bleeding Status: Acute Assessment and Plan: He had banding of varices 2 days ago. Now he is uncomfortable probably from the banding but his pain extending into the abdomen, coupled with his shortness of breath has been concern for other possible thoracic condition. I ordered a stat CT scan. Fortunately, the results had just show no serious changes such as perforation. Pericardial effusion is still there. We will have Cardiology see him (4) Cirrhosis: Code(s): K74.60 - Unspecified cirrhosis of liver Status: Acute Assessment and Plan: although we were told that he is followed at [facility], he admits that he only saw them 1 time . Fortunately his bilirubin and protime are normal. I told him that we need him to follow up with his editor sound. He thinks that he actually was supposed to have been in their clinic today. He will called his doctor to make a follow-up appointment at [facility] with Dr. Medrano Subjective Date/time seen: 12/07/20 07:04 The pain that he had yesterday is a little better. He feels that he is able to swallow and in fact would like to try a regular diet. Cardiology saw him regarding the pericardial effusion and felt there was nothing that needed to be done. He does have somewhat pleuritic pain with deep inspiration. He continues had discomfort in the left upper quadrant of his abdomen. We discussed CT results which were rather negative for his abdomen Review of Systems Review of Systems: All systems reviewed & are unremarkable except as noted in HPI and below Exam Const: General: cooperative, comfortable, no acute distress and uncomfortable Chest: Chest palpation & inspection: tenderness ( tenderness in area around the sternum) Cardio: Rate: regular rate GI: Inspection: non-distended and other ( Rounded. No palpable ascites) GI Palp: Yes abdominal tenderness ( left upper quadrant and epigastric area) Auscultation: normal bowel sounds Objective Data Vital Signs Vital Signs: Vital Signs - 24 hr 12/06/20 08:00 12/06/20 11:07 12/06/20 11:53 Temperature Pulse Rate 87 108 H Respiratory Rate Blood Pressure Pulse Oximetry 94 12/06/20 12:00 12/06/20 14:00 12/06/20 16:00 Temperature 36.4 C L Pulse Rate 74 70 71 Respiratory Rate 18 Blood Pressure 135/88 Pulse Oximetry 96 12/06/20 20:00 12/06/20 21:57 12/07/20 05:32 Temperature 36.7 C 36.6 C Pulse Rate 70 70 74 Respiratory Rate 18 18 18 Blood Pressure 142/56 H 132/89 Pulse Oximetry 91 91 95 Intake/Output Intake/Output: Intake & Output 12/04/20 12/05/20 12/06/20 12/07/20 23:59 23:59 23:59 23:59 Intake Total 50 3743 2930 2150 Output Total 150 2100 Balance 50 3593 830 2150 Meds/Results Medications: Active Medications Generic Name Dose Route Start Last Admin Trade Name Freq PRN Reason Stop Dose Admin Fur
[2020-12-07 08:23] VITALS: PULSE 72
[2020-12-07] MEDS: nadoloL 20 MG TABLET PO (08:23)
[2020-12-07] MEDS: FUROSEMIDE INJ 40 MG/4 ML VIAL 20 MG IV PUSH (08:23)
[2020-12-07] MEDS: SPIRONOLACTONE 12.5 MG TABLET PO ×2 (08:24→18:09)
--- NOTE | 2020-12-07 11:05 | PCNFU ---
Nutrition Follow-Up Complete: Inadequate oral intake related to upper GI bleed as evidenced by current NPO diet order and patient reported weight loss of 8 pounds in the week prior to admission. Goal: Patient to meet estimated nutritional needs. Patient is progressing towards goal. We will continue current goal. Pt current nutrition is Regular with Ensure compact BID. Last recorded weight is 80.5 kg, no new weight reported. Recommend new weight. Bowel Motility:+BM reported 12/07 Labs Reviewed:Glu 122,Na 136,Hct 39.8,Hgb 12.3 Meds Noted:Lasix,Corgard,Aldactone Additional Notes: Nutrition follow up. Patient seen today, eating breakfast. Oral Intake's have been about 75% of meals. Ensure compact will provide patient with an additional 220 kcals and 9 gms protein. Agree with diet orders. Monitor patient's labs, medications, weight, and oral intake every 5 days.
--- NOTE | 2020-12-07 12:55 | PM.IMPN ---
Progress Note: A&P Assessment and Plan (1) Hematemesis: Code(s): K92.0 - Hematemesis Status: Acute Assessment and Plan: Continue octreotide drip Continue pantoprazole drip H&H q.6 Transfuse as needed Supportive care Continue to monitor GI consult 12/07/20 12:55. 12/05 patient is a 50-year-old male with a non alcoholic liver cirrhosis presented with a hematoma emesis, he does complains abdominal pain, currently he denies any nausea or vomiting, he has not seen animal treatment investigator yet, patient was seen by GI and was taken had a EGD showed nonbleeding varices and were banded. Patient also has a ascites there is not enough fluid for paracentesis, GI has place the patient on nadolol, will add low-dose furosemide and spironolactone will continue to monitor and further recommendation to follow. 12/06 patient was seen by GI on 12/05 had a EGD and varics were banded today patient had an episode and hematoemesis, however patient hemoglobin is stable, patient was seen by GI again patient was complaining upper abdominal pain on left side and short of breath CT scan of the abdomen showed moderate pericardial effusion to further evaluate will do EKG, will consult Cardiology for further recommendations, patient remains clinically stable. 12/07 today patient states feeling better denies any nausea or vomiting or hematoma emesis, has a pain in his chest most likely noncardiac, may start patient on muscle relaxant, overall patient is doing well, patient hemoglobin stable, will continue to monitor patient over if remains stable will discharge the patient home tomorrow on current regiment. (2) Gastrointestinal hemorrhage with melena: Code(s): K92.1 - Melena Status: Acute Assessment and Plan: Continue to monitor (3) Ascites: Code(s): R18.8 - Other ascites Status: Acute Assessment and Plan: Therapeutic paracentesis ultrasound-guided in the morning (4) Portal hypertensive gastropathy: Code(s): K76.6 - Portal hypertension; K31.89 - Other diseases of stomach and duodenum Status: Acute Assessment and Plan: GI consult (5) Hypertension: Code(s): I10 - Essential (primary) hypertension Status: Chronic Assessment and Plan: Holding p.o. meds due to NPO status Continue to monitor (6) Tobacco use: Code(s): Z72.0 - Tobacco use Status: Chronic Assessment and Plan: Nicotine patch as needed Subjective Date/time seen: 12/07/20 12:55. 12/05 patient is a 50-year-old male with a non alcoholic liver cirrhosis presented with a hematoma emesis, he does complains abdominal pain, currently he denies any nausea or vomiting, he has not seen animal treatment investigator yet, patient was seen by GI and was taken had a EGD showed nonbleeding varices and were banded. Patient also has a ascites there is not enough fluid for paracentesis, GI has place the patient on nadolol, will add low-dose furosemide and spironolactone will continue to monitor and further recommendation to follow. 12/06 patient was seen by GI on 12/05 had a EGD and varics were banded today patient had an episode and hematoemesis, however patient hemoglobin is stable, patient was seen by GI again patient was complaining upper abdominal pain on left side and short of breath CT scan of the abdomen showed moderate pericardial effusion to further evaluate will do EKG, will consult Cardiology for further recommendations, patient remains clinically stable. 12/07 today patient states feeling better denies any nausea or vomiting or hematoma emesis, has a pain in his chest most likely noncardiac, may start patient on muscle relaxant, overall patient is doing well, patient hemoglobin stable, will continue to monitor patient over if remains stable will discharge the patient home tomorrow on current regiment. Review of Systems Review of Systems: All systems reviewed & are unremarkable except as noted in HPI and below Exam Narr
--- NOTE | 2020-12-07 13:32 | PM.PNCARD ---
Progress Note: A&P Additional Plan 50-year-old man with a pericardial effusion which by echo looks small by CT looks small to moderate. The not nonetheless the effusion is chronic and asymptomatic. More likely this is related to his chronic liver disease than anything else. There is no indication to drain this effusion and is is is not hemodynamically embarrassing is chronic and asymptomatic. The effusion is small enough where in my opinion is not safe to attempt to drain this percutaneously. If that were to be necessary would have to be done through a subxiphoid incision by a thoracic surgeon. Once again I do not believe that is indicated in this setting. Booker Mei MD [facility] Subjective Date/time seen: Date of service:12/07/20 13:32 Interval history: Follow-up visit in this 50-year-old man with: Small to moderate size chronic pericardial effusion that is asymptomatic. Likely related to his chronic liver disease and a transit dated effusion however that is speculative. The patient has no physical exam evidence hemodynamic embarrassment as result of this. Patient also has intermittent at epigastric, low substernal chest discomfort that by history is non ischemic in nature. Patient was admitted to the hospital with GI bleeding related to esophageal varices. Has chronic hepatic cirrhosis and underwent banding of esophageal varices during this admission. Exam Const: General: comfortable and no acute distress Other: Well-developed well-nourished man eating lunch and does not report any significant distress still has intermittent discomfort in the epigastrium. HENMT: Mouth: Yes moist mucous membranes Eyes: Pupils: Equal, round and reactive pupils present Neck: Neck: supple and no JVD Other: No apparent jugular venous distention Resp: Effort & Inspection: normal respiratory effort Auscultation: clear to auscultation bilaterally Cardio: Rate: regular rate Rhythm: regular rhythm Other: no pericardial rub, no pulsus paradoxus GI: Other: abdomen is somewhat protuberant but soft and nontender Neuro: Cognition (Neuro): normal cognition Objective Data Vital Signs Vital Signs: Vital Signs - 24 hr 12/06/20 14:00 12/06/20 16:00 12/06/20 20:00 Temperature 36.4 C L Pulse Rate 70 71 70 Respiratory Rate 18 18 Blood Pressure 135/88 Pulse Oximetry 96 91 12/06/20 21:57 12/07/20 05:32 12/07/20 08:23 Temperature 36.7 C 36.6 C Pulse Rate 70 74 72 Respiratory Rate 18 18 Blood Pressure 142/56 H 132/89 Pulse Oximetry 91 95 Intake/Output Intake/Output: Intake & Output 12/04/20 12/05/20 12/06/20 12/07/20 23:59 23:59 23:59 23:59 Intake Total 50 3743 2930 2770 Output Total 150 2100 Balance 50 3593 830 2770 Meds/Results Medications: Active Medications Generic Name Dose Route Start Last Admin Trade Name Freq PRN Reason Stop Dose Admin Furosemide 20 mg 12/05/20 17:40 12/07/20 08:23 Furosemide Inj 40 Mg/4 Ml Vial IV PUSH 20 mg DAILY FORTINO Administration Hydralazine HCl 10 mg 12/05/20 23:23 Hydralazine 10 Mg Tablet PO Q6HR PRN Blood Pressure - High Hydromorphone HCl 0.5 mg 12/04/20 23:43 12/07/20 11:20 Hydromorphone Hcl Inj (*Crx) 1 Mg/Ml Syr IV PUSH 0.5 mg Q3H PRN Administration Pain Rated 7-10 Pantoprazole Sodium 80 mg/ 500 mls @ 50 mls/hr 12/04/20 16:10 12/07/20 08:17 Dextrose IV CONT 12/07/20 16:11 50 mls/hr .Q10H FORTINO Administration Ibuprofen 600 mg 12/07/20 07:03 Ibuprofen 600 Mg Tablet PO Q6H PRN Moderate Pain (4-6) Nadolol 20 mg 12/06/20 09:00 12/07/20 08:23 Nadolol 20 Mg Tablet PO 20 mg QAM FORTINO Administration Spironolactone 12.5 mg 12/05/20 17:40 12/07/20 08:24 Spironolactone 12.5 Mg Tablet PO 12.5 mg BID FORTINO Administration Radiology Results: ITS Impressions Abdomen/Pelvis CT 12/04/20 17:07 IMPRESSION: 1. Cirrhosis of the liver with portal venous hypertension. 2. Small
[2020-12-07 14:00] VITALS: BP 119/68; PULSE 70; RESP 20; TEMP 36.9; O2SAT 95
[2020-12-07 20:30] VITALS: PULSE 69; RESP 16; O2SAT 94
[2020-12-07 21:54] VITALS: BP 127/76; PULSE 69; RESP 16; TEMP 37.1; O2SAT 94
[2020-12-08] MEDS: HYDROmorphone HCL INJ (*CRX) 1 MG/ML SYR 0.5 MG IV PUSH ×3 (00:37→13:03)
[2020-12-08 06:00] VITALS: BP 140/83; PULSE 72; RESP 18; TEMP 36.1; O2SAT 94
[2020-12-08 06:43] LABS: Hematocrit 38.6 % (42.0-52.0); Hemoglobin 12.1 g/dL (14.0-18.0); Immature Platelet Fraction Pct 8.3 % (0.9-11.2); Mean Corpuscular HGB Conc 31.3 g/dl (32-36); Mean Corpuscular Hemoglobin 26.4 pg (26-34); Mean Corpuscular Volume 84.1 fl (80-100); Mean Platelet Volume 11.1 fl (7.4-10.4); Platelet Count Result 111 k/mm3 (150-375); Red Blood Count 4.59 M/mm3 (4.6-6.20); Red Cell Distribution Width 18.2 % (11.5-14.5); White Blood Count 4.1 K/mm3 (4.5-10.0)
[2020-12-08 06:48] LABS: Alanine Aminotransferase 12 U/L (4-50); Albumin Level 3.7 g/dL (3.5-5.1); Alkaline Phosphatase 108 U/L (38-126); Anion Gap 5 mmol/L (8-16); Aspartate Amino Transferase 35 U/L (17-59); Bilirubin,Total 0.5 mg/dL (0.2-1.3); Blood Urea Nitrogen 14 mg/dL (9-20); Calcium 8.9 mg/dL (8.4-10.2); Carbon Dioxide 29 mmol/L (22-30); Chloride 103 mmol/L (98-107); Estimated CRCL calculation 79 ml/min; Estimated Glomerular Filt Rate > 60; Glucose 113 mg/dL (75-110); Magnesium 1.8 mg/dL (1.6-2.3); Sodium 137 mmol/L (137-145)
[2020-12-08 09:28] VITALS: PULSE 72
[2020-12-08] MEDS: nadoloL 20 MG TABLET PO (09:28)
[2020-12-08] MEDS: SPIRONOLACTONE 12.5 MG TABLET PO (09:28)
[2020-12-08] MEDS: FUROSEMIDE INJ 40 MG/4 ML VIAL 20 MG IV PUSH (09:28)
--- NOTE | 2020-12-08 09:29 | PM.DS ---
DS: Admitting Diagnosis Admitting Diagnosis Admitting Diagnosis: Chief Complaint: Hematemesis and melena DS: Discharge Diagnosis Discharge Diagnosis (1) Gastrointestinal hemorrhage with melena: Code(s): K92.1 - Melena Status: Acute Assessment and Plan: Continue to monitor (2) Hematemesis: Code(s): K92.0 - Hematemesis Status: Acute Assessment and Plan: Continue octreotide drip Continue pantoprazole drip H&H q.6 Transfuse as needed Supportive care Continue to monitor GI consult 12/07/20 12:55. 12/05 patient is a 50-year-old male with a non alcoholic liver cirrhosis presented with a hematoma emesis, he does complains abdominal pain, currently he denies any nausea or vomiting, he has not seen red lead burner yet, patient was seen by GI and was taken had a EGD showed nonbleeding varices and were banded. Patient also has a ascites there is not enough fluid for paracentesis, GI has place the patient on nadolol, will add low-dose furosemide and spironolactone will continue to monitor and further recommendation to follow. 12/06 patient was seen by GI on 12/05 had a EGD and varics were banded today patient had an episode and hematoemesis, however patient hemoglobin is stable, patient was seen by GI again patient was complaining upper abdominal pain on left side and short of breath CT scan of the abdomen showed moderate pericardial effusion to further evaluate will do EKG, will consult Cardiology for further recommendations, patient remains clinically stable. 12/07 today patient states feeling better denies any nausea or vomiting or hematoma emesis, has a pain in his chest most likely noncardiac, may start patient on muscle relaxant, overall patient is doing well, patient hemoglobin stable, will continue to monitor patient over if remains stable will discharge the patient home tomorrow on current regiment. (3) Ascites: Code(s): R18.8 - Other ascites Status: Acute Assessment and Plan: Therapeutic paracentesis ultrasound-guided in the morning (4) Portal hypertensive gastropathy: Code(s): K76.6 - Portal hypertension; K31.89 - Other diseases of stomach and duodenum Status: Acute Assessment and Plan: GI consult (5) Hypertension: Code(s): I10 - Essential (primary) hypertension Status: Chronic Assessment and Plan: Holding p.o. meds due to NPO status Continue to monitor (6) Tobacco use: Code(s): Z72.0 - Tobacco use Status: Chronic Assessment and Plan: Nicotine patch as needed DS: Summary Hospital Course Reason for hospitalization: Chief Complaint: Hematemesis and melena Narrative: This is a 50-year-old male with past medical history significant for hepatic cirrhosis, GI bleed, gastric ulcer. Patient states that he has had a 3 emesis of keyshawn red blood and blood clots that started the day before about 3 episodes and has had melena for the last 2 days or so. Patient states that he has been his usual state of health prior to these no fevers no rigors no chills no diarrhea no abdominal pain has had some weight loss. Patient has been following with red lead burner in [place] for liver disease. He also follows up with gastroenterology locally. Patient denies any cough, sputum production, hemoptysis, shortness of breath ,chest pain ,dizziness, no syncope or near syncope. Patient states that he has been taking his pantoprazole and he is also on a water pill. He also noted increased abdominal girth and crampy abdominal pain that he rates at 8/10 in intensity alleviated by pain medication. Preliminary workup was significant for CT of abdomen and pelvis that shows cirrhosis of the liver with portal venous hypertension,small volume of ascites, moderate-sized pericardial effusion, mildly worsened from 08/15/20,mild pulmonary edema, CBC with hemoglobin of 12 and hematocrit of 40. Hospital Course: 12/07/20 12:55. 12/05 patient is a 50-year-o
== END 2020-12-08 14:15 | disposition home or self-care (01) | DRG 253 ==
LOC: ANHED 18:11 → ANH3MEDSUR 18:46
PROVIDERS: Internal Medicine Gastroenterology; Admitting Provider Emergency Medicine; Emergency Provider Emergency Medicine; PCP Physician Assistant; Visit Provider Family Medicine
PROC: 0DJ08ZZ Inspection of Upper Intestinal Tract, Via Natural or Artificial Opening Endoscopic (ICD-10-PCS; CPT 43235; principal; 2020-12-05 12:15)
DX: K92.0 Hematemesis (principal); K74.60 Unspecified cirrhosis of liver; I85.10 Secondary esophageal varices without bleeding; I31.3 Pericardial effusion (noninflammatory); R07.89 Other chest pain; K92.1 Melena; R18.8 Other ascites; K76.6 Portal hypertension; K31.89 Other diseases of stomach and duodenum; K21.9 Gastro-esophageal reflux disease without esophagitis; I10 Essential (primary) hypertension; F17.210 Nicotine dependence, cigarettes, uncomplicated; Z85.46 Personal history of malignant neoplasm of prostate; Z79.899 Other long term (current) drug therapy
CPT/HCPCS: 36415; 71260; 74160; 74177; 80053; 82607; 82728; 82746; 83540; 83550; 83735; 85014; 85018; 85025; 85027; 85055; 85610; 85730; 86850; 86900; 86901; 86920; 93005; 96365; 96366; 96367; 96368; 96375; 96376; 99285; A9270; C9113; G0378; G0379; J0696; J1170; J1756; J1940; J2001; J2270; J2354; J2704; J3010; J3420; J7060; J7120; Q9967

== ENCOUNTER 2021-02-21 10:11 | Inpatient (IN) | payer OTHER, SELFPAY ==
[2021-02-21] VITALS (41 sets, daily range): BP systolic 118–156; BP diastolic 63–112; PULSE 95–114; RESP 10–21; TEMP 36.4; O2SAT 84–100; BMI 27.5
--- NOTE | ~2021-02-21 | CT_ITS ---
EXAMINATION: CT abdomen pelvis w con INDICATION: Upper and lower GI bleed TECHNIQUE: Computed tomographic images of the abdomen and pelvis were obtained after the administrati on of 100 cc of Omnipaque 350 intravenous contrast. The dose-length product (DLP) was 526.61 mGy-cm. Automated exposure control and iterative reconstruction technique were employed. COMPARISON: 12/06/2020 FINDINGS: Minimal dependent atelectasis is present in the lung bases. The heart size is normal. There is an unchanged moderate-sized pericardial effusion. The gallbladder is surgically absent. There is nodularity of the liver surface, consistent with cirrhosis. The spleen, pancreas, and adrenal glands are normal. The kidneys are unremarkable. No pathologically enlarged abdominal or pelvic lymph nodes are identified. There is no free intraperitoneal gas or evidence of bowel obstruction. There is mild wall thickening of the rectum and ascending colon. There also appears to be mild wall thickening of t he small bowel. There is mild lumbar spondylosis. Chronic compression deformities are noted in the lo wer thoracic spine. IMPRESSION: 1. Mild wall thickening of the colon and small bowel which could reflect enteritis/colitis. 2. Cirrhosis. 3. Moderate-sized pericardial effusion without significant change. Reviewed, dictated and finalized at location B. IMPRESSION: 1. Mild wall thickening of the colon and small bowel which could reflect enteri tis/colitis. 2. Cirrhosis. 3. Moderate-sized pericardial effusion without significant change.
--- NOTE | ~2021-02-21 | XR_ITS ---
EXAMINATION: XR abdomen/kub 1V DATE: 02/25/2021 05:56 INDICATION: Abdominal pain TECHNIQUE: A supine view of the abdomen on 2 radiographs was obtained. COMPARISON: 02/21/2021 FINDINGS: There is some gas and stool scattered throughout the colon. Additional small amount of gas within a f ew nondilated loops of small bowel in the midabdomen. Cholecystectomy clips in right upper quadrant. Additional possibly dropped clip in the left hemipelvis. IMPRESSION: 1. Nonobstructive bowel gas pattern. Reviewed, dictated and finalized at location A.
--- NOTE | ~2021-02-21 | US_ITS ---
EXAMINATION: US abdomen limited EXAM DATE: 02/24/2021 11:37 INDICATION: Tense ascites. TECHNIQUE: Multiple grayscale and Doppler images of the abdomen for quadrants were obtained (by a nakia hnologist who performed the scan) and subsequently reviewed. Comparison is made to prior examination from 04/24/2020. FINDINGS: All 4 quadrant was scanned, no ascites identified. Liver surface nodularity, consistent with cirrhosi s. IMPRESSION: 1. No ascites demonstrated. 2. Nodular liver contour, cirrhosis. Reviewed, dictated and finalized at location A.
[2021-02-21 10:47] LABS: Basophils Percent Auto 0.5 % (0.2-1.2); Eosinophils Percent Auto 0.1 % (0-4.4); Hematocrit 26.4 % (42.0-52.0); Hemoglobin 8.3 g/dL (14.0-18.0); Immature Granulocyte Absolute 0.03 K/mm3 (0.00-0.031); Immature Granulocyte Percent A 0.4 % (0-0.5); Lymphocytes Percent Auto 13.1 % (18.3-44.2); Mean Corpuscular HGB Conc 31.4 g/dl (32-36); Mean Corpuscular Hemoglobin 28.6 pg (26-34); Mean Platelet Volume 10.7 fl (7.4-10.4); Monocytes Absolute Auto 0.7 K/mm3 (0.1-0.6); Monocytes Percent Auto 8.8 % (2.6-8.5); Neutrophils Absolute Auto 6.5 K/mm3 (1.3-6.7); Neutrophils Percent Auto 77.1 % (45.5-73.1); Platelet Count Result 155 k/mm3 (150-375); Red Cell Distribution Width 16.2 % (11.5-14.5); White Blood Count 8.4 K/mm3 (4.5-10.0)
[2021-02-21] MEDS: PANTOPRAZOLE SODIUM IV 40 MG VIAL 80 MG IV PUSH (10:48)
[2021-02-21 11:05] LABS: INR 1.1; Prothrombin Time 13.9 Seconds (11.1-14.7)
[2021-02-21 11:06] LABS: Alanine Aminotransferase 13 U/L (4-50); Albumin Level 3.5 g/dL (3.5-5.1); Alkaline Phosphatase 111 U/L (38-126); Anion Gap 6 mmol/L (8-16); Aspartate Amino Transferase 34 U/L (17-59); Bilirubin,Total 0.8 mg/dL (0.2-1.3); Blood Urea Nitrogen 43 mg/dL (9-20); Calcium 8.5 mg/dL (8.4-10.2); Carbon Dioxide 22 mmol/L (22-30); Chloride 107 mmol/L (98-107); Estimated CRCL calculation 95 ml/min; Estimated Glomerular Filt Rate > 60; Glucose 221 mg/dL (65-110); Partial Thromboplastin Time 31.4 SECONDS (22.3-36.8); Potassium 4.2 mmol/L (3.4-5.0); Sodium 135 mmol/L (137-145)
[2021-02-21] MEDS: HYDROmorphone HCL INJ (*CRX) 1 MG/ML SYR IV PUSH ×2 (11:08→23:26)
[2021-02-21] MEDS: OCTREOTIDE ACETATE 50 MCG/ML VIAL IV PUSH (11:09)
--- NOTE | 2021-02-21 12:20 | ED.GENADULT ---
HPI - General Adult General Chief complaint: GI Bleed Stated complaint: GI bleed, varices Time Seen by Provider: 02/21/21 10:15 Source: patient Mode of arrival: EMS Limitations: no limitations History of Present Illness HPI narrative: Patient with history of upper and lower GI bleeding with varices, cirrhosis, and ascites presents with chief complaint of black tarry stools and bloody vomit. Patient states that he noticed that his stools were darkening last night and at 2:00 this morning he had 2 episodes of bloody vomit. Patient states he has been having increased and lower abdominal pain and firmness. He denies fever, chills, nausea. Patient states he is less imaging here with general he had banding of his varices in November by Dr Guerin. Patient denies any dizziness or syncope. Patient denies any chest pain or shortness of breath. Related Data Home Medications Medication Instructions Recorded Confirmed nadolol 40 mg PO DAILY 02/21/21 omeprazole 20 mg PO DAILY 02/21/21 tramadol 50 mg PO Q6H PRN 02/21/21 Allergies Allergy/AdvReac Type Severity Reaction Status Date / Time No Known Allergies Allergy Verified 02/21/21 10:24 Review of Systems Review of Systems: CONSTITUTIONAL: Denies fever, chills, or sweats. EYES: Denies visual changes, redness, or discharge. ENT: Denies rhinorrhea, congestion, sore throat, or otalgia. CARDIOVASCULAR: Denies chest pain, palpitations, or edema. RESPIRATORY: Denies cough or dyspnea. GASTROINTESTINAL: Reports abdominal pain, hematemesis, and melena GENITOURINARY: Denies dysuria or hematuria. SKIN: Denies rash or itching. MUSCULOSKELETAL: Denies back pain, joint pain, or myalgia. NEUROLOGIC: Denies headache, numbness, dizziness, or weakness. PSYCHIATRIC: Denies anxiety or depression. [facility] Past Medical History Medical History Acute blood loss anemia Arthritis Cirrhosis of liver with ascites Decompensation of cirrhosis of liver Gastric ulcer Gastroesophageal reflux disease Hematemesis History of kidney stones Hypertension Portal hypertensive gastropathy Noted on endoscopy on 03/23/[address] Duran. Prostate cancer Status post radiation seed implantation. Smoker Spontaneous bacterial peritonitis Tobacco use Surgical History Surgical History (Updated 02/21/21 @ 17:43 by Nava Roberts NP) History of appendectomy History of cholecystectomy History of inguinal hernia repair History of lithotripsy History of repair of right rotator cuff History of testicular surgery benign. Family History Family History Mother Family history of malignant neoplasm of breast in first degree relative Other Family history of malignant neoplasm Social History Social History (Updated 02/21/21 @ 17:44 by Nava Roberts NP) Social History: The patient has 2 grown children and he is raising a 6-year-old child. Surrogate decision maker: Marnie Washington Who is his aunt. His is dying of cancer this time.Code status: Full code. The patient stated that he quit smoking over the last couple months. He denies any alcohol use recently he has had about 10 years ago he drank heavily. Then he goes on to say that his cirrhosis is not due to his alcohol use 10 years ago. He denies any marijuana or illicit drugs. Smoking packs per day: 0.5 Smoking cigarettes per day: 10.0 Years smoked: 20 Smoking pack-years: 10.00 Smoking status: Current every day smoker Tobacco type: cigarettes Second hand tobacco smoke exposure: Yes Alcohol intake: former Drinks per week: 2 Alcohol use details: BEERS Substance use: never Substance use type: does not use Additional living arrangements comments: Resides in [place] with his . 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 [employer] Gender identity (if verbalized by the patient): Male Spiritual care co
--- NOTE | 2021-02-21 12:30 | PC.NURSE ---
ns iniated fluid infused without difficulty.
[2021-02-21] MEDS: HYDROmorphone HCL INJ (*CRX) 1 MG/ML SYR 0.5 MG IV PUSH (13:00)
--- NOTE | 2021-02-21 13:18 | WPDGICN ---
Assessment and Plan Assessment and plan (1) Gastrointestinal hemorrhage with melena: Code(s): K92.1 - Melena Status: Acute Assessment and Plan: times fairly certain that the bleeding is from varices. He will require endoscopy in the morning. We are starting him on octreotide drip. Pantoprazole has been started. (2) Cirrhosis of liver with ascites: Code(s): K74.60 - Unspecified cirrhosis of liver; R18.8 - Other ascites Status: Chronic Assessment and Plan: clearly the dose of spironolactone he was taking was not sufficient and will need to be increased . Food need to watch for possibility of complications such as hepatorenal syndrome, hepatic encephalopathy (3) Abdominal pain: Code(s): R10.9 - Unspecified abdominal pain Status: Acute Assessment and Plan: the pain is secondary to his ascites. Paracentesis may be necessary GI Consult Note Consult date/time: 02/21/21 13:18 HPI: Matt Worley II is a 51 year old male With the staff his cirrhosis. He had a hospitalization here in November for treatment of gastrointestinal bleeding. Esophageal varices were banded at that time. He had also had paracentesis. He states that now he has had black and dark red stools every 15 minutes for the past day. very early this morning he began vomiting and brought up clumps of old blood as well. He states that he has diffuse abdominal pain for which she has already requested and received narcotic analgesics. He tells me it is already wearing off. He has had several hospitalizations here in the past year. November was the first in which he had varices that required banding. . He felt a little lightheaded but did not faint. He states he still has not seen a field return repairer in [place]. He got the name of another physician through his primary care physician, to see somebody at [facility] because [facility] persistently kept changing his appointment. He was a heavy drinker 10 years ago although he has told me that he does not feel alcohol as a cause of his cirrhosis. Until yesterday he was feeling well eating well and having normal stools. He did have a good deal of edema in his legs 2 days ago but he states that has gone down. He states he is still taking his medications which includes Nadalol and spironolactone. Review of Systems Review of Systems: All systems reviewed & are unremarkable except as noted in HPI and below PMFSH Past Medical History Medical History Acute blood loss anemia Arthritis Cirrhosis of liver with ascites Decompensation of cirrhosis of liver Gastric ulcer Gastroesophageal reflux disease Hematemesis History of kidney stones Hypertension Portal hypertensive gastropathy Noted on endoscopy on 03/23/[address] Duran. Prostate cancer Status post radiation seed implantation. Smoker Spontaneous bacterial peritonitis Tobacco use Surgical History Surgical History History of appendectomy History of cholecystectomy History of inguinal hernia repair History of lithotripsy History of repair of right rotator cuff History of testicular surgery Resection of a tumor, unclear if malignant or benign. Family History Family History Mother Family history of malignant neoplasm of breast in first degree relative Other Family history of malignant neoplasm Social History Social History Social History: The patient has 2 grown children and he is raising a 6-year-old child. Surrogate decision maker: Marnie Felix Who is his aunt. His is dying of cancer this time.Code status: Full code. The patient still continues to smoke half a pack a cigarettes a day although he said he has not smoked any in a couple days. He denies any alcohol use recently he has had about 10 years ago he michael
[2021-02-21 15:37] LABS: Ammonia < 9 umol/L (9-30)
[2021-02-21] MEDS: DICYCLOMINE HCL INJ 20 MG/2 ML VIAL IM (16:30)
[2021-02-21 16:54] LABS: Hematocrit 24.8 % (42.0-52.0); Hemoglobin 7.6 g/dL (14.0-18.0)
--- NOTE | 2021-02-21 17:35 | PM.IMHP ---
H&P: HPI History of Present Illness Date/Time: 02/21/21 17:35 this is a 51-year-old male patient who has a past history of having a GI bleed in the past with esophageal varices, cirrhosis of the liver and ascites. The patient stated that he has been having black tarry stools for last couple days but this morning at 2:00 a.m. he had 2 episodes of dark emesis with blood streaks. The patient stated that he has had a self adult varices banded in the past. The patient stated that he stopped drinking 10 years ago. The patient has been having increased lower abdominal pain and firmness. The patient denies any fever, chills, or nausea at this point. The patient has not had any dizziness or syncope. He denies any shortness of breath or chest pain. Patient's 1st H&H is 8.3 and 26.4. The 2nd H&H is 7.6 and 24.8. His blood pressure stable at 133/85. GI has been consulted and has already seen the patient. Abdominal pelvis CT was read as the following 1. Mild wall thickening of the colon and small bowel which could reflect enteritis/colitis. 2. Cirrhosis. 3. Moderate-sized pericardial effusion without significant change. The patient was started on octreotide, Protonix, and Dilaudid in the emergency room. The patient is being admitted to inpatient services on the date of service of 02/21/2021 Chief Complaint: Dark stools and hematemesis Review of Systems Review of Systems: All systems reviewed & are unremarkable except as noted in HPI and below Constitutional: Constitutional: Reports as per HPI and Reports no additional constitutional complaints Eyes: Eyes: Reports as per HPI and Reports no additional eye complaints ENT: Reports system reviewed and no additional complaints, except as documented and Reports Normal hearing present Cardiovascular: Cardiovascular: Reports no additional cardiovascular complaints Respiratory: Respiratory: Reports no additional respiratory complaints and Reports no additional respiratory complaints Gastrointestinal: Gastrointestinal: Reports as per HPI and Reports no additional gastrointestinal complaints Musculoskeletal: Musculoskeletal: Reports no additional musculoskeletal complaints Integumentary/Breasts: Skin/Breast: Reports system reviewed and no additional complaints, except as docu and Reports as per HPI Neurologic: Reports system reviewed and no additional complaints, except as documented, Reports as per HPI and Reports Normal hearing present Psychiatric: Psychiatric: Reports no additional psychiatric complaints and Reports as per HPI Endocrine: Endocrine: Reports no additional endocrine complaints Hematologic/Lymphatic: Hematologic/Lymphatic: Reports no additional hematologic/lymphatic complaints Allergic/Immunologic: Allergic/Immunologic: Reports no additional allergic/immunologic complaints [facility] Past Medical History Medical History Acute blood loss anemia Arthritis Cirrhosis of liver with ascites Decompensation of cirrhosis of liver Gastric ulcer Gastroesophageal reflux disease Hematemesis History of kidney stones Hypertension Portal hypertensive gastropathy Noted on endoscopy on 03/23/[address] Duran. Prostate cancer Status post radiation seed implantation. Smoker Spontaneous bacterial peritonitis Tobacco use Surgical History Surgical History (Updated 02/21/21 @ 17:43 by Nava Roberts NP) History of appendectomy History of cholecystectomy History of inguinal hernia repair History of lithotripsy History of repair of right rotator cuff History of testicular surgery benign. Family History Family History Mother Family history of malignant neoplasm of breast in first degree relative Other Family history of malignant neoplasm Social History Social History (Updated 02/21/21 @ 17:44 by Nava Roberts NP) Social History: The patient has 2 grown children and he is raising a 6-year-old child. Surrogate
[2021-02-21] MEDS: MORPHINE SULFATE (*CRX) 4 MG/ML INJ IV PUSH (19:05)
--- NOTE | 2021-02-21 20:07 | ADMGEN ---
This patient, Matt Worley II, was admitted to IMU Room 202-01 at 2000 from the ED. Patient/family oriented to hospital policies and general routines including ID bracelet, bed and alarms, visiting hours, pain management, procedures, bathroom and other care routines, personal items, smoking policy, room service/diet, and visiting hours. Information on how to activate the Rapid Response Team has been discussed. Patient/Family are encouraged to report perceived risks to care and to ask questions if they do not understand what they are told or what they should do.
[2021-02-21] MEDS: SPIRONOLACTONE 50 MG TABLET PO (21:31)
[2021-02-21 22:29] LABS: Hemoglobin 7.8 g/dL (14.0-18.0)
[2021-02-21 22:47] LABS: Ammonia 10 umol/L (9-30)
[2021-02-22] VITALS (12 sets, daily range): BP systolic 109–136; BP diastolic 70–94; PULSE 66–100; RESP 16–20; TEMP 36–36.8; O2SAT 95–99
[2021-02-22] MEDS: HYDROmorphone HCL INJ (*CRX) 1 MG/ML SYR IV PUSH ×5 (02:31→15:01)
[2021-02-22 05:12] LABS: Basophils Percent Auto 0.8 % (0.2-1.2); Eosinophils Absolute Auto 0.1 K/mm3 (0-0.3); Eosinophils Percent Auto 2.2 % (0-4.4); Hematocrit 23.6 % (42.0-52.0); Hemoglobin 7.3 g/dL (14.0-18.0); Immature Granulocyte Absolute 0.02 K/mm3 (0.00-0.031); Immature Granulocyte Percent A 0.4 % (0-0.5); Mean Corpuscular HGB Conc 30.9 g/dl (32-36); Mean Corpuscular Hemoglobin 29.4 pg (26-34); Mean Corpuscular Volume 95.2 fl (80-100); Mean Platelet Volume 10.9 fl (7.4-10.4); Monocytes Absolute Auto 0.6 K/mm3 (0.1-0.6); Monocytes Percent Auto 11.2 % (2.6-8.5); Neutrophils Absolute Auto 3.4 K/mm3 (1.3-6.7); Neutrophils Percent Auto 67.4 % (45.5-73.1); Platelet Count Result 108 k/mm3 (150-375); Red Blood Count 2.48 M/mm3 (4.6-6.20); Red Cell Distribution Width 16.7 % (11.5-14.5)
[2021-02-22 05:25] LABS: Lipase 83 U/L (23-300); Magnesium 1.9 mg/dL (1.6-2.3)
[2021-02-22] MEDS: SPIRONOLACTONE 50 MG TABLET PO ×2 (08:50→16:16)
--- NOTE | 2021-02-22 09:47 | PM.IMPN ---
Progress Note: A&P Assessment and Plan (1) Gastrointestinal hemorrhage with melena: Code(s): K92.1 - Melena Status: Acute Assessment and Plan: The patient has a history of esophageal varices that have been banded in the past. Continue to follow hemoglobin closely, noted a downward trend. BUN is elevated, out of proportion to creatinine, consistent with upper GI bleed. Appreciate GI consultation. Continue Protonix and octreotide infusion NPO IVF Transfuse as needed (2) Esophageal varices: Code(s): I85.00 - Esophageal varices without bleeding Status: Acute Assessment and Plan: History of esophageal varices and cirrhosis Report is that he he was a heavy drinker in 10 years ago but no longer drinks. Continue with pain medication. (3) Hematemesis: Code(s): K92.0 - Hematemesis Status: Acute Assessment and Plan: Antiemetics Patient is on octreotide and Protonix (4) Pericardial effusion: Code(s): I31.3 - Pericardial effusion (noninflammatory) Status: Acute Assessment and Plan: Moderate size pericardial effusion noted on CT scan, unchanged in size from prior (5) Colitis: Code(s): K52.9 - Noninfective gastroenteritis and colitis, unspecified Status: Acute Assessment and Plan: Zosyn empirically for bacterial colitis (02/21- Stool cultures pending (6) Tobacco use: Code(s): Z72.0 - Tobacco use Status: Chronic Assessment and Plan: Report is that he quit smoking 2 months ago Additional Plan Code status: Full code DVT prophylaxis: SCDs Subjective Date/time seen: 02/22/21 09:47 Continues to have crampy abdominal pain. Has not had any bowel movements. No nausea or vomiting. Hemodynamically stable. Afebrile. IV Protonix and octreotide ongoing. Review of Systems Review of Systems: All systems reviewed & are unremarkable except as noted in HPI and below Exam Narrative: Gen: Alert, NAD Abd: Soft, tender to palpation diffusely, mildly distended Heart: RRR Lungs: CTAB Ext: No lower extremity edema Objective Data Vital Signs Vital Signs: Vital Signs - 24 hr 02/21/21 10:13 02/21/21 10:14 02/21/21 10:15 Temperature 97.6 F Pulse Rate 114 H 114 H 114 H Respiratory Rate 12 12 13 Blood Pressure 156/94 H 138/97 H Pulse Oximetry 99 100 100 02/21/21 10:16 02/21/21 10:30 02/21/21 10:31 Temperature Pulse Rate 114 H 112 H 110 H Respiratory Rate 10 L 18 19 Blood Pressure 152/86 H Pulse Oximetry 100 99 99 02/21/21 10:45 02/21/21 10:46 02/21/21 11:00 Temperature Pulse Rate 107 H 107 H 108 H Respiratory Rate 20 19 17 Blood Pressure 140/86 130/79 Pulse Oximetry 94 94 97 02/21/21 11:01 02/21/21 11:15 02/21/21 11:16 Temperature Pulse Rate 107 H 100 99 Respiratory Rate 11 L 20 17 Blood Pressure 135/86 Pulse Oximetry 97 84 L 97 02/21/21 12:25 02/21/21 12:26 02/21/21 12:30 Temperature Pulse Rate 103 H 106 H 101 H Respiratory Rate 17 18 17 Blood Pressure 132/89 118/85 Pulse Oximetry 99 99 92 02/21/21 12:31 02/21/21 12:45 02/21/21 12:46 Temperature Pulse Rate 100 100 101 H Respiratory Rate 17 19 21 H Blood Pressure 121/85 Pulse Oximetry 93 96 96 02/21/21 13:01 02/21/21 14:46 02/21/21 14:47 Temperature Pulse Rate 101 H 98 98 Respiratory Rate 19 17 17 Blood Pressure 125/63 Pulse Oximetry 97 99 94 02/21/21 14:48 02/21/21 15:00 02/21/21 15:01 Temperature Pulse Rate 97 98 99 Respiratory Rate 16 18 16 Blood Pressure 133/85 133/85 Pulse Oximetry 93 98 99 02/21/21 15:15 02/21/21 15:30 02/21/21 15:45 Temperature Pulse Rate 98 96 96 Respiratory Rate 18 17 18 Blood Pressure Pulse Oximetry 97 93 99 02/21/21 16:09 02/21/21 16:15 02/21/21 16:30 Temperature Pulse Rate 96 98 96 Respiratory Rate 20 19 16 Blood Pressure Pulse Oximetry 100 97 100 02/21/21 16:44 02/21/21 16:45 02/21/21 17:00 Temperature Pulse
[2021-02-22] MEDS: LACTATED RINGERS 1,000 ML 150 ML IV CONT (10:11)
--- NOTE | 2021-02-22 10:32 | WPDANESEPPF ---
Anes - Initial Pre Proc Eval Procedure: Operation Date: 02/22/21 11:15 Proposed Procedures p Esophagogastroduodenoscopy - Carroll Guerin MD Date/Time: 02/22/21 10:32 Surgeon: Amberly Stevens MD Pre Op Diagnosis: upper and lower gi bleeding Patient Data Age: 51 Gender: M Height: 1.68 m Weight: 77.3 kg Last Vital Signs Temp 36.6 C 02/22/21 10:10 Pulse 87 02/22/21 10:10 Resp 16 02/22/21 10:10 BP 109/70 02/22/21 10:10 Pulse Ox 98 02/22/21 10:10 Allergies Allergy/AdvReac Type Severity Reaction Status Date / Time No Known Allergies Allergy Verified 02/21/21 10:24 Home Medications Medication Instructions Recorded Confirmed Type spironolactone 25 mg PO BID #60 tablet 12/08/20 02/21/21 Rx nadolol 40 mg PO DAILY 02/21/21 02/21/21 History omeprazole 20 mg PO DAILY 02/21/21 02/21/21 History tramadol 50 mg PO Q6H PRN 02/21/21 02/21/21 History Laboratory Tests 02/21/21 02/21/21 02/21/21 10:21 10:21 10:21 WBC 8.4 K/mm3 K/mm3 (4.5-10.0) RBC 2.90 M/mm3 L M/mm3 (4.6-6.20) Hgb 8.3 g/dL L D g/dL (14.0-18.0) Hct 26.4 % L % (42.0-52.0) MCV 91.0 fl fl (80-100) MCH 28.6 pg pg (26-34) MCHC 31.4 g/dl L g/dl (32-36) RDW 16.2 % H % (11.5-14.5) Plt Count 155 k/mm3 k/mm3 (150-375) MPV 10.7 fl H fl (7.4-10.4) Immature Gran % (Auto) 0.4 % % (0-0.5) Neut % (Auto) 77.1 % H % (45.5-73.1) Lymph % (Auto) 13.1 % L % (18.3-44.2) Sutter % (Auto) 8.8 % H % (2.6-8.5) Eos % (Auto) 0.1 % % (0-4.4) Baso % (Auto) 0.5 % % (0.2-1.2) Lymph # (Auto) 1.10 K/mm3 K/mm3 (0.9-3.2) Sutter # (Auto) 0.7 K/mm3 H K/mm3 (0.1-0.6) Eos # (Auto) 0.0 K/mm3 K/mm3 (0-0.3) Baso # (Auto) 0.0 K/mm3 K/mm3 (0.0-0.1) Abs Immat Gran (auto) 0.03 K/mm3 K/mm3 (0.00-0.031) Absolute Neuts (auto) 6.5 K/mm3 K/mm3 (1.3-6.7) Absolute Nucleated RBC 0.0 K/mm3 K/mm3 (0.0-0.012) Nucleated RBC % 0.0 % % (0.0-0.2) PT 13.9 Seconds Seconds (11.1-14.7) INR 1.1 APTT 31.4 SECONDS SECONDS (22.3-36.8) Sodium 135 mmol/L L mmol/L (137-145) Potassium 4.2 mmol/L mmol/L (3.4-5.0) Chloride 107 mmol/L mmol/L (98-107) Carbon Dioxide 22 mmol/L mmol/L (22-30) Anion Gap 6 mmol/L L mmol/L (8-16) BUN 43 mg/dL H D mg/dL (9-20) Creatinine 0.70 mg/dL mg/dL (0.7-1.3) Estim Creat Clear Calc 95 ml/min ml/min Estimated GFR > 60 (59 - ) Glucose 221 mg/dL H mg/dL (65-110) Calcium 8.5 mg/dL mg/dL (8.4-10.2) Magnesium Total Bilirubin 0.8 mg/dL mg/dL (0.2-1.3) AST 34 U/L U/L (17-59) ALT 13 U/L U/L (4-50) Alkaline Phosphatase 111 U/L U/L (38-126) Ammonia Total Protein 6.0 g/dL L g/dL (6.3-8.2) Albumin 3.5 g/dL g/dL (3.5-5.1) Lipase TSH (Reflex) Blood Type Antibody Screen 02/21/21 02/21/21 02/21/21 10:21 15:13 16:47 WBC RBC Hgb 7.6 g/dL L g/dL (14.0-18.0) Hct 24.8 % L % (42.0-52.0) MCV MCH MCHC RDW Plt Count MPV Immature Gran % (Auto) Neut % (Auto) Lymph % (Auto) Sutter % (Auto) Eos % (Auto) Baso % (Auto) Lymph # (Auto) Sutter # (Auto) Eos # (Auto) Baso # (Auto) Abs Immat Gran (auto) Absolute Neuts (auto) Absolute Nucleated RBC Nucleated RBC % PT INR APTT Sodium
[2021-02-22] MEDS: BENZOCAINE (*SP) 60 ML SPRAY CAN (HURRICAINE) 1 SPRAY MUCOUS MEM (11:41)
--- NOTE | 2021-02-22 14:37 | PC.NURSE ---
This patient, Matt Worley II, was transferred to [facility] on 02/22/21 at 1437. Personal belongings sent with patient. Report given to Lilia NICOLE. Appropriate documentation sent with patient.
--- NOTE | 2021-02-22 14:42 | PC.NURSE ---
This patient, Matt Worley II, was received from IMU on 02/22/21 at 1442. Patient/family oriented to unit policies and routines
[2021-02-22 14:45] LABS: Hematocrit 24.5 % (42.0-52.0); Hemoglobin 7.5 g/dL (14.0-18.0)
[2021-02-22] MEDS: HYDROmorphone HCL INJ (*CRX) 2 MG/ML VIAL IV PUSH ×2 (18:04→21:59)
[2021-02-23] MEDS: HYDROmorphone HCL INJ (*CRX) 2 MG/ML VIAL IV PUSH ×6 (01:55→22:08)
[2021-02-23 05:37] LABS: Anion Gap 8 mmol/L (8-16); Blood Urea Nitrogen 18 mg/dL (9-20); Calcium 8.4 mg/dL (8.4-10.2); Carbon Dioxide 26 mmol/L (22-30); Chloride 100 mmol/L (98-107); Estimated CRCL calculation 78 ml/min; Estimated Glomerular Filt Rate > 60; Glucose 140 mg/dL (65-110); Potassium 4.4 mmol/L (3.4-5.0); Sodium 134 mmol/L (137-145)
[2021-02-23 06:00] VITALS: BP 133/76; PULSE 85; RESP 20; TEMP 36.1; O2SAT 98
--- NOTE | 2021-02-23 08:17 | PM.IMPN ---
Progress Note: A&P Assessment and Plan (1) Gastrointestinal hemorrhage with melena: Code(s): K92.1 - Melena Status: Acute Assessment and Plan: The patient has a history of esophageal varices that have been banded in the past. Continue to follow hemoglobin closely, noted a downward trend. BUN is elevated, out of proportion to creatinine, consistent with upper GI bleed. Appreciate GI consultation. EGD 02/22 showed large esophageal varices, status post placement of 2 bands Initially on IV Protonix and octreotide infusion, now transitioned to pantoprazole 40 mg daily Advance diet as tolerated Transfuse as needed (2) Esophageal varices: Code(s): I85.00 - Esophageal varices without bleeding Status: Acute Assessment and Plan: History of esophageal varices and cirrhosis Report is that he he was a heavy drinker in 10 years ago but no longer drinks. Continue with pain medication. Continue home Nadolol (3) Hematemesis: Code(s): K92.0 - Hematemesis Status: Acute Assessment and Plan: Antiemetics Management as above Now resolved (4) Pericardial effusion: Code(s): I31.3 - Pericardial effusion (noninflammatory) Status: Acute Assessment and Plan: Moderate size pericardial effusion noted on CT scan, unchanged in size from prior (5) Colitis: Code(s): K52.9 - Noninfective gastroenteritis and colitis, unspecified Status: Acute Assessment and Plan: Zosyn empirically for bacterial colitis (02/21- (6) Tobacco use: Code(s): Z72.0 - Tobacco use Status: Chronic Assessment and Plan: Report is that he quit smoking 2 months ago (7) Ascites: Code(s): R18.8 - Other ascites Status: Acute Assessment and Plan: Dose of spironolactone was increased during this hospitalization to 50 mg b.i.d. Monitor for need for paracentesis Additional Plan Code status: Full code DVT prophylaxis: SCDs Subjective Date/time seen: 02/23/21 08:17 Yesterday he underwent EGD with finding of large esophageal varices, status post placement of 2 bands. He tolerated the procedure well. Continues to have some abdominal pain. Abdominal distention as well. Reports melena in bowel movement this morning. Hemodynamically stable. Reports some cramping in the hands yesterday the head resolved this morning. Exam Narrative: Gen: Alert, NAD Abd: Soft, tender to palpation diffusely, mildly distended Heart: RRR Lungs: CTAB Ext: No lower extremity edema Objective Data Vital Signs Vital Signs: Vital Signs - 24 hr 02/22/21 10:00 02/22/21 10:10 02/22/21 11:56 Temperature 97.8 F Pulse Rate 80 87 87 Respiratory Rate 16 16 Blood Pressure 109/70 136/93 H Pulse Oximetry 98 96 02/22/21 12:06 02/22/21 12:16 02/22/21 13:15 Temperature 97.3 F L Pulse Rate 83 85 91 Respiratory Rate 16 20 20 Blood Pressure 134/94 H 127/83 136/83 Pulse Oximetry 97 98 98 02/22/21 22:00 02/23/21 06:00 Temperature 98.2 F 97.0 F L Pulse Rate 66 85 Respiratory Rate 20 20 Blood Pressure 133/73 133/76 Pulse Oximetry 99 98 Intake/Output Intake/Output: Intake & Output 02/20/21 02/21/21 02/22/21 02/23/21 23:59 23:59 23:59 23:59 Intake Total 150 1498 700 Output Total 675 800 Balance 150 823 -100 Meds/Results Medications: Active Medications Generic Name Dose Route Start Last Admin Trade Name Freq PRN Reason Stop Dose Admin Hydromorphone HCl 2 mg 02/22/21 14:56 02/23/21 05:57 Hydromorphone Hcl Inj (*Crx) 2 Mg/Ml Vial IV PUSH 2 mg Q4HR PRN Administration Pain Rated 7-10 Piperacillin/Tazobactam/Dextrose 3.375 gm in 50 mls @ 100 mls/hr 02/21/21 18:00 02/23/21 05:40 Zosyn 3.375 Gm/D5w 50ml Pm IVPB Infused Q6HR FORTINO Infusion Nadolol 40 mg 02/23/21 09:00 Nadolol 20 Mg Tablet PO QAM FORTINO Pantoprazole Sodium 40 mg 02/23/21 09:00 Pantoprazole 40 Mg Tablet PO QAM FORTINO Spironolactone
--- NOTE | 2021-02-23 08:49 | WPDGIPROGNO ---
Progress Note: A&P Assessment and Plan (1) Acute GI bleeding: Code(s): K92.2 - Gastrointestinal hemorrhage, unspecified Status: Acute Assessment and Plan: although he is still passing melena stools his counts are stable and I think that the bleeding is controlled (2) Chest pain: Code(s): R07.9 - Chest pain, unspecified Status: Acute Assessment and Plan: this is likely due to the esophageal banding. Discomfort is common for about 24 hours after such procedure (3) Esophageal varices: Code(s): I85.00 - Esophageal varices without bleeding Status: Acute Assessment and Plan: although he vomited this morning while trying to eat, there was no blood in his emesis which is encouraging. Nadololhas been restarted at 40 mg (4) Cirrhosis of liver with ascites: Code(s): K74.60 - Unspecified cirrhosis of liver; R18.8 - Other ascites Status: Chronic Assessment and Plan: I had ordered paracentesis yesterday and somehow it was canceled. We will try to alleviate his ascites with diuretics, having increased his spironolactone dose. Will give him a dose of Lasix today Subjective Date/time seen: 02/23/21 08:49 he is still having dark stools but no fresh blood in his stools. He vomited when he began eating his eggs and hash browns this morning. It is uncomfortable going down and seems to be getting caught as he swallows. I explained that this is due to the variceal bands that were placed yesterday. Fortunately there was no blood in his emesis. Review of Systems Review of Systems: All systems reviewed & are unremarkable except as noted in HPI and below Exam Const: General: cooperative and uncomfortable Orientation/consciousness: patient oriented x3 GI: GI Palp: Yes abdominal tenderness ( Diffuse) and No Guarding due to palpation present (GI) Auscultation: normal bowel sounds Neuro: General: patient oriented x3 Motor exam (neuro): No asterixis Objective Data Vital Signs Vital Signs: Vital Signs - 24 hr 02/22/21 10:00 02/22/21 10:10 02/22/21 11:56 Temperature 36.6 C Pulse Rate 80 87 87 Respiratory Rate 16 16 Blood Pressure 109/70 136/93 H Pulse Oximetry 98 96 02/22/21 12:06 02/22/21 12:16 02/22/21 13:15 Temperature 36.3 C L Pulse Rate 83 85 91 Respiratory Rate 16 20 20 Blood Pressure 134/94 H 127/83 136/83 Pulse Oximetry 97 98 98 02/22/21 22:00 02/23/21 06:00 Temperature 36.8 C 36.1 C L Pulse Rate 66 85 Respiratory Rate 20 20 Blood Pressure 133/73 133/76 Pulse Oximetry 99 98 Intake/Output Intake/Output: Intake & Output 02/20/21 02/21/21 02/22/21 02/23/21 23:59 23:59 23:59 23:59 Intake Total 150 1498 700 Output Total 675 800 Balance 150 823 -100 Meds/Results Medications: Active Medications Generic Name Dose Route Start Last Admin Trade Name Freq PRN Reason Stop Dose Admin Hydromorphone HCl 2 mg 02/22/21 14:56 02/23/21 05:57 Hydromorphone Hcl Inj (*Crx) 2 Mg/Ml Vial IV PUSH 2 mg Q4HR PRN Administration Pain Rated 7-10 Piperacillin/Tazobactam/Dextrose 3.375 gm in 50 mls @ 100 mls/hr 02/21/21 18:00 02/23/21 05:40 Zosyn 3.375 Gm/D5w 50ml Pm IVPB Infused Q6HR FORTINO Infusion Nadolol 40 mg 02/23/21 09:00 Nadolol 20 Mg Tablet PO QAM FORTINO Pantoprazole Sodium 40 mg 02/23/21 09:00 Pantoprazole 40 Mg Tablet PO QAM FORTINO Spironolactone 50 mg 02/21/21 17:00 02/22/21 16:16 Spironolactone 50 Mg Tablet PO 50 mg BID FORTINO Administration Radiology Results: ITS Impressions Abdomen/Pelvis CT 02/21/21 11:50 IMPRESSION: 1. Mild wall thickening of the colon and small bowel which could reflect enteritis/colitis. 2. Cirrhosis. 3. Moderate-sized pericardial effusion without significant change. Labs Labs: Laboratory Results - last 24 hr 02/22/21 02/23/21 14:21 04:22 Hgb 7.5 L Hct 24.5 L Sodium 134 L Potassium 4.4 Chloride 100 Carbon
[2021-02-23 09:04] LABS: Hemoglobin 7.9 g/dL (14.0-18.0); Immature Platelet Fraction Pct 6.2 % (0.9-11.2); Mean Corpuscular HGB Conc 31.6 g/dl (32-36); Mean Corpuscular Volume 95.1 fl (80-100); Mean Platelet Volume 10.4 fl (7.4-10.4); Platelet Count Result 133 k/mm3 (150-375); Red Blood Count 2.63 M/mm3 (4.6-6.20); Red Cell Distribution Width 16.4 % (11.5-14.5); White Blood Count 5.4 K/mm3 (4.5-10.0)
[2021-02-23] MEDS: PANTOPRAZOLE 40 MG TABLET PO (09:05)
[2021-02-23] MEDS: SPIRONOLACTONE 50 MG TABLET PO ×2 (09:05→17:15)
[2021-02-23 09:06] VITALS: PULSE 92
[2021-02-23] MEDS: nadoloL 20 MG TABLET 40 MG PO (09:06)
[2021-02-23] MEDS: FUROSEMIDE 20 MG TABLET PO (09:28)
--- NOTE | 2021-02-23 13:04 | WPDANESPN ---
Anes - Prog Note Post-Op Date/Time: 02/23/21 13:04 Cardiovascular status: normal Respiratory status: normal Airway patency: baseline Mental status: baseline Post-Op hydration status: normal Vital Signs: Last Vital Signs Temp 36.1 C L 02/23/21 06:00 Pulse 92 02/23/21 09:06 Resp 20 02/23/21 06:00 BP 133/76 02/23/21 06:00 Pulse Ox 98 02/23/21 06:00 Pain Score (VAS): 0 I/O: Intake & Output 02/22/21 02/23/21 02/23/21 23:59 07:59 15:59 Intake Total 608 700 Output Total 275 800 Balance 333 -100 Laboratory Tests 02/23/21 08:32 02/23/21 04:22 02/22/21 02/23/21 02/23/21 14:21 04:22 08:32 WBC 5.4 RBC 2.63 L Hgb 7.5 L 7.9 L Hct 24.5 L 25.0 L MCV 95.1 MCH 30.0 MCHC 31.6 L RDW 16.4 H Plt Count 133 L MPV 10.4 % Immature Plt Fraction 6.2 Sodium 134 L Potassium 4.4 Chloride 100 Carbon Dioxide 26 Anion Gap 8 BUN 18 D Creatinine 0.90 Estim Creat Clear Calc 78 Estimated GFR > 60 Glucose 140 H Calcium 8.4 Post-procedural complaints: none Patient Feedback: Patient satisfied with anesthetic care.
[2021-02-23 14:00] VITALS: BP 129/72; PULSE 82; RESP 20; TEMP 36.3; O2SAT 97
[2021-02-23 22:00] VITALS: BP 102/64; PULSE 67; RESP 20; TEMP 36.3; O2SAT 99
[2021-02-24] MEDS: HYDROmorphone HCL INJ (*CRX) 2 MG/ML VIAL IV PUSH ×3 (02:08→10:14)
[2021-02-24] MEDS: CALCIUM CARBONATE (TUMS) 500 MG (200 MG ELEMENTAL) PO ×3 (02:10→16:52)
[2021-02-24 06:00] VITALS: BP 110/65; PULSE 72; RESP 20; TEMP 36.5; O2SAT 98
--- NOTE | 2021-02-24 07:20 | WPDGIPROGNO ---
Progress Note: A&P Assessment and Plan (1) Acute GI bleeding: Code(s): K92.2 - Gastrointestinal hemorrhage, unspecified Status: Acute Assessment and Plan: no further melanotic stools; his counts are stable and I think that the bleeding is controlled (2) Chest pain: Code(s): R07.9 - Chest pain, unspecified Status: Acute Assessment and Plan: this is likely due to the esophageal banding. Discomfort is common for about 24 hours after such procedure, but persist today. Iwhaleigh give him lidocaine viscous. He is also requesting oral pain medications that he can adapt to and take home with him (3) Esophageal varices: Code(s): I85.00 - Esophageal varices without bleeding Status: Acute Assessment and Plan: although he vomited yesterday while trying to eat, there was no blood in his emesis which is encouraging. Nadolol has been restarted at 40 mg. Counts are stable in fact higher (4) Cirrhosis of liver with ascites: Code(s): K74.60 - Unspecified cirrhosis of liver; R18.8 - Other ascites Status: Chronic Assessment and Plan: I had ordered paracentesis Thursday and somehow it was canceled. We will try to alleviate his ascites with diuretics, having increased his spironolactone dose. after Lasix yesterday he states that he was up many times during the night urinating but it was only small amounts each time. I will order paracentesis for tomorrow Subjective Date/time seen: 02/24/21 07:20 He is still having pain when swallowing. Even drinking liquids given discomfort and caused him to feel a bit anxious. He is desiring to get switched to an oral pain medicine that he can adapt to today before he goes home, thinking that he will needed at home also. He also continues to complain of pain in the abdomen from his ascites as he did with his previous admissions. I will schedule him for paracentesis to try to reduce the volume and discomfort. Review of Systems Review of Systems: All systems reviewed & are unremarkable except as noted in HPI and below Exam Const: General: uncomfortable Nutritional Appearance: average body habitus Orientation/consciousness: patient oriented x3 Eyes: Conjunctivae: conjunctivae normal Sclera: sclerae normal GI: GI Palp: Yes Tenderness to palpation present (GI) ( Diffuse) and Yes Ascites present Auscultation: normal bowel sounds Neuro: General: patient oriented x3 Motor exam (neuro): No asterixis Objective Data Vital Signs Vital Signs: Vital Signs - 24 hr 02/23/21 09:06 02/23/21 14:00 02/23/21 22:00 Temperature 36.3 C L 36.3 C L Pulse Rate 92 82 67 Respiratory Rate 20 20 Blood Pressure 129/72 102/64 Pulse Oximetry 97 99 Intake/Output Intake/Output: Intake & Output 02/21/21 02/22/21 02/23/21 02/24/21 23:59 23:59 23:59 23:59 Intake Total 150 1498 2180 100 Output Total 675 1250 Balance 150 823 930 100 Meds/Results Medications: Active Medications Generic Name Dose Route Start Last Admin Trade Name Freq PRN Reason Stop Dose Admin Calcium Carbonate 200 mg 02/24/21 00:23 02/24/21 02:10 Calcium Carbonate (Tums) 500 Mg (200 Mg Elemental) PO 200 mg Q6H PRN Administration Indigestion Hydromorphone HCl 2 mg 02/22/21 14:56 02/24/21 05:59 Hydromorphone Hcl Inj (*Crx) 2 Mg/Ml Vial IV PUSH 2 mg Q4HR PRN Administration Pain Rated 7-10 Piperacillin/Tazobactam/Dextrose 3.375 gm in 50 mls @ 100 mls/hr 02/21/21 18:00 02/24/21 06:24 Zosyn 3.375 Gm/D5w 50ml Pm IVPB Infused Q6HR FORTINO Infusion Lidocaine HCl 15 ml 02/24/21 07:14 Lidocaine Hcl 2% Visc Soln 15 Ml Udc PO Q4H PRN Chest Pain Nadolol 40 mg 02/23/21 09:00 02/23/21 09:06 Nadolol 20 Mg Tablet PO 40 mg QAM FORTINO Administration Pantoprazole Sodium 40 mg 02/23/21 09:00 02/23/21 09:05 Pantoprazole 40 Mg Tablet PO 40 mg QAM FORTINO Administration Spironolactone 50 mg 02/21/21 17
[2021-02-24 09:37] VITALS: PULSE 71
[2021-02-24] MEDS: PANTOPRAZOLE 40 MG TABLET PO (09:37)
[2021-02-24] MEDS: nadoloL 20 MG TABLET 40 MG PO (09:37)
[2021-02-24] MEDS: SPIRONOLACTONE 50 MG TABLET PO ×2 (09:37→16:46)
[2021-02-24] MEDS: LIDOCAINE HCL 2% VISC SOLN 15 ML UDC PO (09:39)
--- NOTE | 2021-02-24 09:56 | PM.IMPN ---
Progress Note: A&P Assessment and Plan (1) Gastrointestinal hemorrhage with melena: Code(s): K92.1 - Melena Status: Acute Assessment and Plan: The patient has a history of esophageal varices that have been banded in the past. Continue to follow hemoglobin closely, improving BUN is elevated, out of proportion to creatinine, consistent with upper GI bleed, now trending down Appreciate GI consultation. EGD 02/22 showed large esophageal varices, status post placement of 2 bands Initially on IV Protonix and octreotide infusion, now transitioned to pantoprazole 40 mg daily Advance diet as tolerated with emphasis on soft texture foods to allow swallowing given his large varices Transfuse as needed (2) Esophageal varices: Code(s): I85.00 - Esophageal varices without bleeding Status: Acute Assessment and Plan: History of esophageal varices and cirrhosis Report is that he he was a heavy drinker in 10 years ago but no longer drinks. Continue with pain medication as needed Continue home Nadolol (3) Hematemesis: Code(s): K92.0 - Hematemesis Status: Acute Assessment and Plan: Antiemetics Management as above Now resolved (4) Pericardial effusion: Code(s): I31.3 - Pericardial effusion (noninflammatory) Status: Acute Assessment and Plan: Moderate size pericardial effusion noted on CT scan, unchanged in size from prior (5) Colitis: Code(s): K52.9 - Noninfective gastroenteritis and colitis, unspecified Status: Acute Assessment and Plan: Zosyn empirically for bacterial colitis (02/21- (6) Tobacco use: Code(s): Z72.0 - Tobacco use Status: Chronic Assessment and Plan: Report is that he quit smoking 2 months ago (7) Ascites: Code(s): R18.8 - Other ascites Status: Acute Assessment and Plan: Dose of spironolactone was increased during this hospitalization to 50 mg b.i.d. and received Lasix 02/23 Plan for paracentesis 02/25 per GI (8) Hyperglycemia: Code(s): R73.9 - Hyperglycemia, unspecified Status: Acute Assessment and Plan: Intermittently elevated. He does not have a diagnosis of diabetes, will check an A1c and will need follow up in outpatient setting to re-asses (in August of 2020 A1c was 5.2). Additional Plan Code status: Full code DVT prophylaxis: SCDs Subjective Date/time seen: 02/24/21 09:56 One time episode of vomiting yesterday. Overnight he feels his abdominal pain is better, he is more careful with his intake with soft foods follow-up her swallowing. Still feels a degree dysphagia/odynophagia. Abdominal distension is stable. Bowel movements still melanotic. Hemodynamically stable. Afebrile. Review of Systems Review of Systems: All systems reviewed & are unremarkable except as noted in HPI and below Exam Narrative: Gen: Alert, NAD Abd: Soft, tender to palpation in the epigastrium, mildly distended Heart: RRR Lungs: CTAB Ext: No lower extremity edema Objective Data Vital Signs Vital Signs: Vital Signs - 24 hr 02/23/21 14:00 02/23/21 22:00 02/24/21 06:00 Temperature 97.3 F L 97.3 F L 97.7 F Pulse Rate 82 67 72 Respiratory Rate 20 20 20 Blood Pressure 129/72 102/64 110/65 Pulse Oximetry 97 99 98 02/24/21 09:37 Temperature Pulse Rate 71 Respiratory Rate Blood Pressure Pulse Oximetry Intake/Output Intake/Output: Intake & Output 02/21/21 02/22/21 02/23/21 02/24/21 23:59 23:59 23:59 23:59 Intake Total 150 1498 2180 900 Output Total 675 1250 Balance 150 823 930 900 Meds/Results Medications: Active Medications Generic Name Dose Route Start Last Admin Trade Name Freq PRN Reason Stop Dose Admin Calcium Carbonate 200 mg 02/24/21 00:23 02/24/21 02:10 Calcium Carbonate (Tums) 500 Mg (200 Mg Elemental) PO 200 mg Q6H PRN Administration Indigestion Hydromorphone HCl 2 mg 02/22/21 14:56 02/24/21 05:59 Hyd
[2021-02-24 10:15] LABS: Hematocrit 25.5 % (42.0-52.0); Hemoglobin 7.7 g/dL (14.0-18.0)
--- NOTE | 2021-02-24 11:38 | PC.NURSE ---
Pt went down to ultrasound for paracentesis, mold technician called and reprorts there was not fluid in abdomen so procedure was cancelled.
[2021-02-24 14:00] VITALS: BP 108/70; PULSE 66; RESP 18; TEMP 36.9; O2SAT 99
[2021-02-24] MEDS: oxyCODONE HCL (*CRX) 5 MG TAB IR PO (14:03)
[2021-02-24] MEDS: HYDROmorphone HCL INJ (*CRX) 1 MG/ML SYR 2 MG IV PUSH (19:24)
[2021-02-24 21:21] VITALS: BP 104/62; PULSE 65; RESP 16; TEMP 36.6; O2SAT 99
[2021-02-24] MEDS: MELATONIN 3 MG TABLET PO (21:48)
[2021-02-24] MEDS: HYDROcodone/acetaminophen (*CRX) 5-325 MG TABLET 1 TAB PO (21:48)
[2021-02-24 22:22] LABS: Add Urine Microscopic? YES; Appearance Urine Clear (Clear); Bilirubin Urine Negative (Negative); Blood Urine 1+ (Negative); Color Urine Yellow (Yellow); Glucose Urine UA Negative (Negative); Ketones Urine Negative (Negative); Leukocyte Esterase Ur Negative LEU/UL (Negative); Nitrate Urine Negative (Negative); Protein Urine 1+ mg/dL (Negative); RBC Urine 0-2 /hpf (0-2); Specific Grav Ur 1.027 (1.001-1.035); Squamous Epithelial Cell Urine Rare /hpf (Few); Urobilinogen Urine Negative mg/dL (<2.0); WBC Urine 0-3 /hpf
[2021-02-25] MEDS: BELLADONNA ALK/PHENOB ELIX 10 ML, MAG HYDROX/ALUMINUM HYD/SIMETH 30 ML, LIDOCAINE HCL 2... PO (01:47)
[2021-02-25] MEDS: HYDROcodone/acetaminophen (*CRX) 5-325 MG TABLET 1 TAB PO ×2 (03:28→08:42)
[2021-02-25] MEDS: HYDROmorphone HCL INJ (*CRX) 1 MG/ML SYR IV PUSH (03:53)
[2021-02-25 05:47] VITALS: BP 106/60; PULSE 65; RESP 16; TEMP 36.1; O2SAT 95
[2021-02-25 05:54] LABS: Hematocrit 23.9 % (42.0-52.0); Hemoglobin 7.1 g/dL (14.0-18.0)
[2021-02-25 06:09] LABS: Alanine Aminotransferase 17 U/L (4-50); Albumin Level 3.3 g/dL (3.5-5.1); Alkaline Phosphatase 87 U/L (38-126); Anion Gap 6 mmol/L (8-16); Aspartate Amino Transferase 43 U/L (17-59); Bilirubin,Total 0.3 mg/dL (0.2-1.3); Blood Urea Nitrogen 23 mg/dL (9-20); Calcium 8.3 mg/dL (8.4-10.2); Carbon Dioxide 27 mmol/L (22-30); Chloride 102 mmol/L (98-107); Estimated CRCL calculation 70 ml/min; Estimated Glomerular Filt Rate > 60; Glucose 154 mg/dL (65-110); Lipase 56 U/L (23-300); Potassium 4.5 mmol/L (3.4-5.0); Sodium 135 mmol/L (137-145)
[2021-02-25 06:35] LABS: Basophils Absolute Auto 0.1 K/mm3 (0.0-0.1); Basophils Percent Auto 0.8 % (0.2-1.2); Eosinophils Absolute Auto 0.1 K/mm3 (0-0.3); Eosinophils Percent Auto 1.5 % (0-4.4); Hematocrit 23.7 % (42.0-52.0); Immature Granulocyte Absolute 0.03 K/mm3 (0.00-0.031); Immature Granulocyte Percent A 0.5 % (0-0.5); Lymphocytes Absolute Auto 1.07 K/mm3 (0.9-3.2); Lymphocytes Percent Auto 17.3 % (18.3-44.2); Mean Corpuscular HGB Conc 29.5 g/dl (32-36); Mean Corpuscular Hemoglobin 28.3 pg (26-34); Mean Platelet Volume 11.4 fl (7.4-10.4); Monocytes Absolute Auto 0.9 K/mm3 (0.1-0.6); Monocytes Percent Auto 14.2 % (2.6-8.5); Neutrophils Absolute Auto 4.1 K/mm3 (1.3-6.7); Neutrophils Percent Auto 65.7 % (45.5-73.1); Platelet Count Result 142 k/mm3 (150-375); Red Blood Count 2.47 M/mm3 (4.6-6.20); Red Cell Distribution Width 15.9 % (11.5-14.5); White Blood Count 6.2 K/mm3 (4.5-10.0)
[2021-02-25 07:47] LABS: Anisocytosis 2+ (NORMAL); Microcytosis 1+ (NORMAL); Platelet Estimate Adequate (Adequate)
[2021-02-25 07:48] LABS: Hypochromasia 2+ (NORMAL)
[2021-02-25 07:55] LABS: Lactic Acid Reflex 0.5 mmol/L (0.7-2.1)
--- NOTE | 2021-02-25 08:22 | PM.IMPN ---
Progress Note: A&P Assessment and Plan (1) Ascites: Code(s): R18.8 - Other ascites Status: Acute Assessment and Plan: spironolactone 100 & 40 Lasix po daily Plan for paracentesis 02/25, but appears may not be enough fluid to tap? pt complaining pain indufficiently controlled, change regimen from q6 to q4 (2) Gastrointestinal hemorrhage with melena: Code(s): K92.1 - Melena Status: Acute Assessment and Plan: The patient has a history of esophageal varices that have been banded in the past. Continue to follow hemoglobin closely drop to 7 today, will rpt at noon BUN is elevated, out of proportion to creatinine, consistent with upper GI bleed, now trending down Appreciate GI consultation - recommending viscous lidocaine for chest pain & nadolol 40 & paracentesis EGD 02/22 showed large esophageal varices, status post placement of 2 bands Initially on IV Protonix and octreotide infusion, now transitioned to pantoprazole 40 mg daily Advance diet as tolerated with emphasis on soft texture foods to allow swallowing given his large varices Transfuse as needed (3) Esophageal varices: Code(s): I85.00 - Esophageal varices without bleeding Status: Acute Assessment and Plan: History of esophageal varices and cirrhosis Report is that he he was a heavy drinker in 10 years ago but no longer drinks. Continue with pain medication as needed Continue home Nadolol & viscous lidocaine (4) Hematemesis: Code(s): K92.0 - Hematemesis Status: Acute Assessment and Plan: Antiemetics Management as above Now resolved (5) Pericardial effusion: Code(s): I31.3 - Pericardial effusion (noninflammatory) Status: Acute Assessment and Plan: Moderate size pericardial effusion noted on CT scan, unchanged in size from prior (6) Colitis: Code(s): K52.9 - Noninfective gastroenteritis and colitis, unspecified Status: Acute Assessment and Plan: Zosyn empirically for bacterial colitis (02/21- (7) Tobacco use: Code(s): Z72.0 - Tobacco use Status: Chronic Assessment and Plan: Report is that he quit smoking 2 months ago (8) Hyperglycemia: Code(s): R73.9 - Hyperglycemia, unspecified Status: Acute Assessment and Plan: Intermittently elevated. He does not have a diagnosis of diabetes, will check an A1c and will need follow up in outpatient setting to re-asses (in August of 2020 A1c was 5.2). Additional Plan liver cirrhosis with ascites, US showing not enough fluid to tap, will address with diuretics as above Hgb drop to 7 this am rpt at about noon, keep clear liquid diet from breakfast today scd ppx > madden AC supportive care incl protonix, norco, viscous lidocaine pt is high risk for elopement - dressed himself, and was ready to leave this am, and even signed form, then changed his mind; but still high risk for AMA d/c Time Spent With Patient Time with patient: less than 15 minutes Subjective Date/time seen: 02/25/21 08:23 patient is asking to leave this morning discussed matter in detail, and now willing to stay Review of Systems Review of Systems: All systems reviewed & are unremarkable except as noted in HPI and below Exam Narrative: pt seen at bedside, would like to leave hospital Neck: Neck: no JVD Resp: Effort & Inspection: normal respiratory effort Auscultation: clear to auscultation bilaterally Cardio: Rate: regular rate Rhythm: regular rhythm GI: Inspection: distended GI Palp: Yes Tenderness to palpation present (GI) Other: distended, evidence of ascites on exam Objective Data Vital Signs Vital Signs: Vital Signs - 24 hr 02/24/21 09:37 02/24/21 14:00 02/24/21 21:21 Temperature 98.4 F 97.8 F Pulse Rate 71 66 65 Respiratory Rate 18 16 Blood Pressure 108/70 104/62 Pulse Oximetry 99 99 02/25/21 05:47 Temperature 97.0 F L Pulse Rate 65 Respiratory Rate 16 Blood Pressure 1
--- NOTE | 2021-02-25 08:45 | PC.NURSE ---
pt said multiple times this am that he was leaving [facility], Dr Lowe spoke to pt several times about plan of care and pt still unhappy.
--- NOTE | 2021-02-25 14:22 | WPDGIPROGNO ---
Progress Note: A&P Assessment and Plan (1) Acute GI bleeding: Code(s): K92.2 - Gastrointestinal hemorrhage, unspecified Status: Acute Assessment and Plan: no further melanotic stools; his counts are stable and I think that the bleeding is controlled (2) Chest pain: Code(s): R07.9 - Chest pain, unspecified Status: Acute Assessment and Plan: this is likely due to the esophageal banding. Discomfort is common for about 24 hours after such procedure, but persist today. Iwhaleigh give him lidocaine viscous. He is also requesting oral pain medications that he can adapt to and take home with him (3) Esophageal varices: Code(s): I85.00 - Esophageal varices without bleeding Status: Acute Assessment and Plan: Nadolol has been restarted at 40 mg. Counts are stable in fact higher (4) Cirrhosis of liver with ascites: Code(s): K74.60 - Unspecified cirrhosis of liver; R18.8 - Other ascites Status: Chronic Assessment and Plan: ultrasound yesterday showed actually that there is no longer any ascites. I Have discontinued his Lasix. I found out when I went to enter my note for today that he had been discharged. Apparently he left against medical advise. He called my office and informed them that he was upset with what ever the hospitalist had told him this morning, and that he might check himself back in this afternoon Subjective Date/time seen: 02/25/21 14:22 patient seen at 6:45 a.m.. He is still complaining of constant generalized abdominal pain, barely relieved with Current medications. We had thought that his ascites was back. Actually attempted paracentesis yesterday revealed that he no longer has ascites, per ultrasound. A plain film of the abdomen was done a few minutes before I saw him. There is no sign of bleeding. he continues to have pain with swallowing but is a bit better every day His hemoglobin is 7 g Review of Systems Review of Systems: All systems reviewed & are unremarkable except as noted in HPI and below Exam Const: General: cooperative and uncomfortable Nutritional Appearance: average body habitus Orientation/consciousness: patient oriented x3 Eyes: Conjunctivae: conjunctivae normal Sclera: sclerae normal GI: Inspection: distended GI Palp: Yes abdominal tenderness ( generalized) Auscultation: normal bowel sounds Neuro: General: patient oriented x3 Motor exam (neuro): No asterixis Extrem: Right lower extremity: edema Left lower extremity: edema Objective Data Vital Signs Vital Signs: Vital Signs - 24 hr 02/24/21 21:21 02/25/21 05:47 Temperature 36.6 C 36.1 C L Pulse Rate 65 65 Respiratory Rate 16 16 Blood Pressure 104/62 106/60 Pulse Oximetry 99 95 Intake/Output Intake/Output: Intake & Output 02/22/21 02/23/21 02/24/21 02/25/21 23:59 23:59 23:59 23:59 Intake Total 1498 2180 3150 300 Output Total 675 1250 1100 300 Balance 952 967 5056 0 Meds/Results Radiology Results: ITS Impressions Abdomen/Pelvis CT 02/21/21 11:50 IMPRESSION: 1. Mild wall thickening of the colon and small bowel which could reflect enteritis/colitis. 2. Cirrhosis. 3. Moderate-sized pericardial effusion without significant change. Abdomen Ultrasound 02/24/21 14:10 IMPRESSION: 1. No ascites demonstrated. 2. Nodular liver contour, cirrhosis. Abdomen X-Ray 02/25/21 07:20 IMPRESSION: 1. Nonobstructive bowel gas pattern. Labs Labs: Laboratory Results - last 24 hr 02/24/21 02/25/21 02/25/21 22:11 05:06 05:06 WBC 6.2 RBC 2.47 L Hgb 7.1 L 7.0 L Hct 23.9 L 23.7 L MCV 96.0 MCH 28.3 D MCHC 29.5 L RDW 15.9 H Plt Count 142 L MPV 11.4 H Immature Gran % (Auto) 0.5 Neut % (Auto) 65.7 Lymph % (Auto) 17.3 L [place] % (Auto) 14.2 H Eos % (Auto) 1.5 Baso % (Auto) 0.8 Lymph # (Auto) 1.07 [place] # (Auto) 0.9 H Eos # (Auto) 0.1 Baso # (Au
[2021-02-27 23:27] LABS: ANCA Screen Negative (Negative); Myeloperoxidase Ab <1.0 AI (<1.0); Proteinase-3 Ab <1.0 AI (<1.0); S cerevisiae Ab (IgA) 12.7 U (<=20.0); S cerevisiae Ab (IgG) 10.3 U (<=20.0)
== END 2021-02-25 09:33 | disposition left against medical advice (07) | DRG 254 ==
LOC: ANHED 10:31 → ANHIMU 17:23 → ANH2MED 02-22 14:27
PROVIDERS: Internal Medicine; Internal Medicine Gastroenterology; Internal Medicine Nephrology; Nurse Practitioner; Admitting Provider Hospitalist; Emergency Provider Emergency Medicine; PCP Physician Assistant; Visit Provider Internal Medicine
PROC: 0DJ08ZZ Inspection of Upper Intestinal Tract, Via Natural or Artificial Opening Endoscopic (ICD-10-PCS; CPT 43235; principal; 2021-02-22 11:15)
DX: K92.1 Melena (principal); K92.0 Hematemesis; I85.10 Secondary esophageal varices without bleeding; D64.9 Anemia, unspecified; I31.3 Pericardial effusion (noninflammatory); K76.6 Portal hypertension; K31.89 Other diseases of stomach and duodenum; K52.9 Noninfective gastroenteritis and colitis, unspecified; K74.60 Unspecified cirrhosis of liver; R18.8 Other ascites; I10 Essential (primary) hypertension; R73.9 Hyperglycemia, unspecified; F17.210 Nicotine dependence, cigarettes, uncomplicated; Z85.46 Personal history of malignant neoplasm of prostate
CPT/HCPCS: 36415; 74018; 74177; 76705; 80048; 80053; 81001; 82140; 83605; 83690; 83735; 84443; 85014; 85018; 85025; 85027; 85055; 85610; 85730; 86021; 86671; 86850; 86900; 86901; 96365; 96366; 96367; 96368; 96372; 96375; 96376; 99285; A9270; C9113; G0378; G0379; J0131; J0500; J1170; J2270; J2354; J2543; J2704; J7060; J7120; Q9967

== ENCOUNTER 2021-02-26 09:03 | Emergency (ER) | payer OTHER, SELFPAY ==
[2021-02-26] VITALS (14 sets, daily range): BP systolic 117–158; BP diastolic 74–115; PULSE 70–98; RESP 13–22; TEMP 36.8; O2SAT 96–100
--- NOTE | ~2021-02-26 | US_ITS ---
US abdomen complete EXAMINATION: US Abdomen Complete INDICATION: Elbow pain, cirrhosis and ascites PROCEDURE: Realtime High Resolution abdomen ultrasound. COMPARISON: CT dated 02/21/2021 FINDINGS: Gallbladder is surgically absent. Common bile duct measures 4 mm. Liver echotexture is heterogeneous with nodular liver surface, compatible with cirrhosis.. No ascites visualized. Pancreas within normal limits. Pancreatic tail is obscured by bowel gas. Spleen is enl arged measuring 16.3 cm. Renal echotexture is within normal limits bilaterally without hydronephrosis , contour deforming mass or renal stone. Right kidney measures 10.7 cm. Left kidney measures 10.9 cm. Visualized aspects of the aorta and IVC are within normal limits. Portal vein is patent. No sonograph ic Aguilera's sign indicated by the technologist. IMPRESSION: 1: Cirrhosis. No evidence for ascites. 2: Splenomegaly. Reviewed, dictated and finalized at location A.
[2021-02-26 09:23] LABS: Basophils Absolute Auto 0.1 K/mm3 (0.0-0.1); Basophils Percent Auto 0.5 % (0.2-1.2); Eosinophils Absolute Auto 0.1 K/mm3 (0-0.3); Eosinophils Percent Auto 1.4 % (0-4.4); Hematocrit 27.5 % (42.0-52.0); Hemoglobin 8.4 g/dL (14.0-18.0); Immature Granulocyte Absolute 0.04 K/mm3 (0.00-0.031); Immature Granulocyte Percent A 0.4 % (0-0.5); Lymphocytes Absolute Auto 1.47 K/mm3 (0.9-3.2); Lymphocytes Percent Auto 15.5 % (18.3-44.2); Mean Corpuscular HGB Conc 30.5 g/dl (32-36); Mean Corpuscular Hemoglobin 29.3 pg (26-34); Mean Corpuscular Volume 95.8 fl (80-100); Mean Platelet Volume 10.6 fl (7.4-10.4); Monocytes Absolute Auto 1.5 K/mm3 (0.1-0.6); Monocytes Percent Auto 15.6 % (2.6-8.5); Neutrophils Absolute Auto 6.3 K/mm3 (1.3-6.7); Neutrophils Percent Auto 66.6 % (45.5-73.1); Platelet Count Result 211 k/mm3 (150-375); Red Blood Count 2.87 M/mm3 (4.6-6.20); Red Cell Distribution Width 15.6 % (11.5-14.5); White Blood Count 9.5 K/mm3 (4.5-10.0)
--- NOTE | 2021-02-26 09:31 | ED.GIBLEED ---
HPI - GI Bleed General Chief complaint: GI Bleed Stated complaint: Vomiting Blood Time Seen by Provider: 02/26/21 09:11 Source: patient Mode of arrival: ambulatory Limitations: no limitations History of Present Illness HPI Narrative: This is a 51 year old male that presents to the ER with an episode of hematemesis this morning. Reports he was recently admitted and had his varices banded. He left AGAINST MEDICAL ADVICE yesterday as he needed to roll picker his child. This morning he had another episode vomiting blood which prompted him to be seen again. Also reports he has had returning abdominal pain. The pain is dull and intermittently sharp in nature. It is constant. Also reports he has continued to have blood in the stool. Does report some dysuria. Denies fever or hematuria. Related Data Home Medications Medication Instructions Recorded Confirmed nadolol 40 mg PO DAILY 02/21/21 02/21/21 omeprazole 20 mg PO DAILY 02/21/21 02/21/21 tramadol 50 mg PO Q6H PRN 02/21/21 02/21/21 Allergies Allergy/AdvReac Type Severity Reaction Status Date / Time No Known Allergies Allergy Verified 02/26/21 09:11 Review of Systems Review of Systems: CONSTITUTIONAL: Denies fever GASTROINTESTINAL: Reports abdominal pain, nausea, vomiting. Denies diarrhea. GENITOURINARY: Reports dysuria. Denies hematuria. All systems reviewed & are unremarkable except as noted in HPI and below PMFSH Past Medical History Medical History Acute blood loss anemia Arthritis Cirrhosis of liver with ascites Decompensation of cirrhosis of liver Gastric ulcer Gastroesophageal reflux disease Hematemesis History of kidney stones Hypertension Portal hypertensive gastropathy Noted on endoscopy on 03/23/[address] Duran. Prostate cancer Status post radiation seed implantation. Smoker Spontaneous bacterial peritonitis Tobacco use Surgical History Surgical History History of appendectomy History of cholecystectomy History of inguinal hernia repair History of lithotripsy History of repair of right rotator cuff History of testicular surgery benign. Family History Family History Mother Family history of malignant neoplasm of breast in first degree relative Other Family history of malignant neoplasm Social History Social History Social History: The patient has 2 grown children and he is raising a 6-year-old child. Surrogate decision maker: Marnie Washington Who is his aunt. His is dying of cancer this time.Code status: Full code. The patient stated that he quit smoking over the last couple months. He denies any alcohol use recently he has had about 10 years ago he drank heavily. Then he goes on to say that his cirrhosis is not due to his alcohol use 10 years ago. He denies any marijuana or illicit drugs. Smoking packs per day: 0.5 Smoking cigarettes per day: 10.0 Years smoked: 40 Smoking pack-years: 20.00 Smoking status: Former smoker Tobacco type: cigarettes Second hand tobacco smoke exposure: Yes Alcohol intake: never Drinks per week: 2 Alcohol use details: BEERS Substance use: never Substance use type: does not use Additional living arrangements comments: Resides in [place] with his . 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 [employer] Gender identity (if verbalized by the patient): Male Spiritual care concerns: No Exam Narrative: GENERAL: Well-appearing, well-nourished, and in no acute distress. HEAD: Normocephalic, atraumatic. EYES: EOMI. ENT: Mucous membranes moist. Oropharynx without tonsillar hypertrophy exudate or other lesions. CHEST: Clear to auscultation. No respiratory distress. No wheezes rales or rhonchi HEART: Regular rate and rhythm. No murmur hear
[2021-02-26 09:33] LABS: Prothrombin Time 13.2 Seconds (11.1-14.7)
[2021-02-26 09:34] LABS: Partial Thromboplastin Time 30.2 SECONDS (22.3-36.8)
[2021-02-26 09:35] LABS: Alanine Aminotransferase 20 U/L (4-50); Albumin Level 3.7 g/dL (3.5-5.1); Alkaline Phosphatase 115 U/L (38-126); Anion Gap 7 mmol/L (8-16); Aspartate Amino Transferase 49 U/L (17-59); Bilirubin,Total 0.4 mg/dL (0.2-1.3); Blood Urea Nitrogen 20 mg/dL (9-20); Calcium 8.7 mg/dL (8.4-10.2); Carbon Dioxide 26 mmol/L (22-30); Chloride 104 mmol/L (98-107); Estimated CRCL calculation 78 ml/min; Estimated Glomerular Filt Rate > 60; Glucose 196 mg/dL (65-110); Potassium 4.9 mmol/L (3.4-5.0); Sodium 137 mmol/L (137-145)
[2021-02-26] MEDS: MORPHINE SULFATE (*CRX) 4 MG/ML INJ IV PUSH ×2 (09:57→11:54)
[2021-02-26] MEDS: PANTOPRAZOLE SODIUM IV 40 MG VIAL 80 MG IV PUSH (09:57)
[2021-02-26] MEDS: ONDANSETRON INJ 4 MG/2 ML VIAL IV PUSH (09:57)
[2021-02-26 10:18] LABS: Lipase 84 U/L (23-300)
[2021-02-26 10:28] LABS: Add Urine Microscopic? YES; Appearance Urine Clear (Clear); Bilirubin Urine Negative (Negative); Blood Urine Negative (Negative); Color Urine Yellow (Yellow); Glucose Urine UA 2+ mg/dL (Negative); Ketones Urine Trace mg/dL (Negative); Leukocyte Esterase Ur Negative LEU/UL (Negative); Mucus Urine Rare /lpf; Nitrate Urine Negative (Negative); Protein Urine 1+ mg/dL (Negative); RBC Urine 0-2 /hpf (0-2); Specific Grav Ur 1.029 (1.001-1.035); Squamous Epithelial Cell Urine Rare /hpf (Few); Urobilinogen Urine Negative mg/dL (<2.0); WBC Urine 0-3 /hpf
[2021-02-26 11:12] LABS: Hemoglobin A1C 5.8 % (<5.7)
== END 2021-02-26 13:04 | disposition home or self-care (01) ==
PROVIDERS: Physician Assistant; Emergency Provider Emergency Medicine; PCP Physician Assistant
DX: K74.60 Unspecified cirrhosis of liver (principal); I85.00 Esophageal varices without bleeding; M19.90 Unspecified osteoarthritis, unspecified site; I10 Essential (primary) hypertension; Z87.19 Personal history of other diseases of the digestive system; Z87.442 Personal history of urinary calculi; Z85.46 Personal history of malignant neoplasm of prostate; Z87.891 Personal history of nicotine dependence; Z90.49 Acquired absence of other specified parts of digestive tract; Z90.89 Acquired absence of other organs
CPT/HCPCS: 36415; 76700; 80053; 81001; 83036; 83690; 85025; 85610; 85730; 86850; 86900; 86901; 96374; 96375; 96376; 99284; C9113; J2270; J2405

== ENCOUNTER 2021-03-04 08:25 | Outpatient (CLI) | payer OTHER, SELFPAY ==
[2021-03-04 08:39] LABS: Hemoglobin 7.4 g/dL (14.0-18.0); Mean Corpuscular HGB Conc 29.6 g/dl (32-36); Mean Corpuscular Hemoglobin 27.5 pg (26-34); Mean Corpuscular Volume 92.9 fl (80-100); Mean Platelet Volume 9.8 fl (7.4-10.4); Platelet Count Result 123 k/mm3 (150-375); Red Blood Count 2.69 M/mm3 (4.6-6.20); Red Cell Distribution Width 16.8 % (11.5-14.5); White Blood Count 5.1 K/mm3 (4.5-10.0)
== END 2021-03-04 08:26 | disposition home or self-care (01) ==
LOC: ANHLAB 08:26
PROVIDERS: PCP Physician Assistant; Visit Provider Internal Medicine Gastroenterology
DX: K92.1 Melena (principal)
CPT/HCPCS: 36415; 85027

== ENCOUNTER 2021-03-11 09:05 | Emergency (ER) | payer OTHER, SELFPAY ==
--- NOTE | ~2021-03-11 | US_ITS ---
EXAMINATION: US abdomen limited EXAM DATE: 03/11/2021 10:15 INDICATION: Ascites. TECHNIQUE: Multiple grayscale and Doppler images of the limited abdomen for ascites check were obtain ed (by a technologist who performed the scan) and subsequently reviewed. There is no prior study for comparison. FINDINGS: Scanning in the 4 quadrants demonstrated small amount of fluid in the right lower quadrant. No fluid identified in the other quadrants. IMPRESSION: Small amount of right lower quadrant ascites. Reviewed, dictated and finalized at location A.
[2021-03-11 09:18] VITALS: BP 185/106; PULSE 104; RESP 20; TEMP 36.6; O2SAT 99
[2021-03-11 09:42] LABS: Basophils Percent Auto 0.6 % (0.2-1.2); Eosinophils Percent Auto 0.8 % (0-4.4); Hematocrit 27.5 % (42.0-52.0); Hemoglobin 8.2 g/dL (14.0-18.0); Immature Granulocyte Absolute 0.03 K/mm3 (0.00-0.031); Immature Granulocyte Percent A 0.6 % (0-0.5); Lymphocytes Absolute Auto 0.66 K/mm3 (0.9-3.2); Lymphocytes Percent Auto 12.8 % (18.3-44.2); Mean Corpuscular HGB Conc 29.8 g/dl (32-36); Mean Corpuscular Hemoglobin 25.7 pg (26-34); Mean Corpuscular Volume 86.2 fl (80-100); Mean Platelet Volume 11.2 fl (7.4-10.4); Monocytes Absolute Auto 0.6 K/mm3 (0.1-0.6); Monocytes Percent Auto 10.8 % (2.6-8.5); Neutrophils Absolute Auto 3.9 K/mm3 (1.3-6.7); Neutrophils Percent Auto 74.4 % (45.5-73.1); Platelet Count Result 105 k/mm3 (150-375); Red Blood Count 3.19 M/mm3 (4.6-6.20); Red Cell Distribution Width 16.9 % (11.5-14.5); White Blood Count 5.2 K/mm3 (4.5-10.0)
[2021-03-11 09:50] LABS: Alanine Aminotransferase 10 U/L (4-50); Alkaline Phosphatase 149 U/L (38-126); Anion Gap 9 mmol/L (8-16); Aspartate Amino Transferase 34 U/L (17-59); Bilirubin,Total 0.6 mg/dL (0.2-1.3); Blood Urea Nitrogen 15 mg/dL (9-20); Calcium 8.8 mg/dL (8.4-10.2); Carbon Dioxide 26 mmol/L (22-30); Chloride 101 mmol/L (98-107); Estimated CRCL calculation 106 ml/min; Estimated Glomerular Filt Rate > 60; Glucose 210 mg/dL (65-110); Potassium 4.5 mmol/L (3.4-5.0); Sodium 136 mmol/L (137-145)
[2021-03-11 09:53] LABS: Partial Thromboplastin Time 30.9 SECONDS (22.3-36.8)
--- NOTE | 2021-03-11 09:56 | ED.GENADULT ---
HPI - General Adult General Chief complaint: GI Bleed Stated complaint: GI Bleed Time Seen by Provider: 03/11/21 09:14 Source: patient and old records reviewed Mode of arrival: ambulatory Limitations: no limitations History of Present Illness HPI narrative: Patient is here for increasing abdominal distention and pain. He was seen last on 03/05 by his GI doctor reason for his pain was unclear at that time. He was told to come the emergency room should he have increasing abdominal distention and pain. He also states that he started having black stools yesterday, no vomiting. He has a long history of ascites due to cirrhosis. Denies any alcohol or tobacco use at this time. Onset (ago): day(s) Exacerbating factors: none Associated symptoms: denies other symptoms Related Data Home Medications Medication Instructions Recorded Confirmed nadolol 40 mg PO DAILY 02/21/21 03/05/21 omeprazole 20 mg PO DAILY 02/21/21 03/05/21 Allergies Allergy/AdvReac Type Severity Reaction Status Date / Time No Known Allergies Allergy Verified 03/11/21 09:23 Review of Systems Review of Systems: All systems reviewed & are unremarkable except as noted in HPI and below PMFSH Past Medical History Medical History Acute blood loss anemia Arthritis Cirrhosis of liver with ascites Decompensation of cirrhosis of liver Gastric ulcer Gastroesophageal reflux disease Hematemesis History of kidney stones Hypertension Portal hypertensive gastropathy Noted on endoscopy on 03/23/[address] Duran. Prostate cancer Status post radiation seed implantation. Smoker Spontaneous bacterial peritonitis Tobacco use Surgical History Surgical History History of appendectomy History of cholecystectomy History of inguinal hernia repair History of lithotripsy History of repair of right rotator cuff History of testicular surgery benign. Family History Family History Mother Family history of malignant neoplasm of breast in first degree relative Other Family history of malignant neoplasm Social History Social History Social History: The patient has 2 grown children and he is raising a 6-year-old child. Surrogate decision maker: Marnie Washington Who is his aunt. His is dying of cancer this time.Code status: Full code. The patient stated that he quit smoking over the last couple months. He denies any alcohol use recently he has had about 10 years ago he drank heavily. Then he goes on to say that his cirrhosis is not due to his alcohol use 10 years ago. He denies any marijuana or illicit drugs. Smoking packs per day: 0.5 Smoking cigarettes per day: 10.0 Years smoked: 40 Smoking pack-years: 20.00 Smoking status: Former smoker Tobacco type: cigarettes Second hand tobacco smoke exposure: Yes Alcohol intake: never Drinks per week: 2 Alcohol use details: BEERS Substance use: never Substance use type: does not use Additional living arrangements comments: Resides in [place] with his . 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 [email or web address] Gender identity (if verbalized by the patient): Male Spiritual care concerns: No Exam Const: General: no acute distress and alert Orientation/consciousness: patient oriented x3 HENMT: Head: normal to inspection Eyes: Sclera: sclerae normal Pupils: Equal, round and reactive pupils present Resp: Effort & Inspection: normal respiratory effort Auscultation: clear to auscultation bilaterally Cardio: Rate: regular rate GI: Inspection: distended GI Palp: Yes abdominal tenderness (diffuse) and Yes Firmness to palpation present (GI) Percussion: Yes tympanic to percussion Rectal Exam: normal sphincter tone Other: no stool present for FOB Skin:
[2021-03-11] MEDS: SODIUM CHLORIDE 0.9% IV 1,000 ML 999 ML IV CONT (10:24)
[2021-03-11 10:37] LABS: Platelet Estimate Decreased (Adequate)
[2021-03-11 10:39] LABS: Hypochromasia 2+ (NORMAL)
[2021-03-11 10:56] VITALS: BP 173/113; PULSE 96; RESP 19; O2SAT 100
[2021-03-11] MEDS: HYDROmorphone HCL INJ (*CRX) 1 MG/ML SYR IV PUSH (11:58)
[2021-03-11 13:19] VITALS: BP 162/100; PULSE 97; RESP 17; O2SAT 100
[2021-03-11 13:20] LABS: Glucose Point of Care 106 mg/dl (65-105)
[2021-03-11 14:21] VITALS: BP 163/104; PULSE 98; RESP 20; O2SAT 99
== END 2021-03-11 14:24 | disposition home or self-care (01) ==
PROVIDERS: Emergency Provider Emergency Medicine; PCP Physician Assistant
DX: K74.69 Other cirrhosis of liver (principal); R10.84 Generalized abdominal pain; Z87.891 Personal history of nicotine dependence; K21.9 Gastro-esophageal reflux disease without esophagitis; Z87.442 Personal history of urinary calculi; I10 Essential (primary) hypertension; Z85.46 Personal history of malignant neoplasm of prostate; K76.6 Portal hypertension; K31.89 Other diseases of stomach and duodenum
CPT/HCPCS: 36415; 76705; 80053; 82948; 85025; 85610; 85730; 86850; 86900; 86901; 96361; 96365; 96375; 99284; J0131; J1170; J7030

== ENCOUNTER 2021-03-20 09:43 | Observation (INO) | payer OTHER, SELFPAY ==
[2021-03-20] VITALS (9 sets, daily range): BP systolic 147–181; BP diastolic 87–111; PULSE 91–112; RESP 16–98; TEMP 36.4–37.7; O2SAT 97–100
--- NOTE | ~2021-03-20 | US_ITS ---
EXAMINATION: US paracentesis abd w/image DATE: 03/20/2021 13:15 INDICATION: Ascites. TECHNIQUE: The procedure and its risks, benefits, and alternatives were discussed with the patient. P otential risks discussed included bleeding and infection. The skin was prepped and draped in sterile fashion. 1% lidocaine was used for local anesthesia. Under ultrasound guidance, a 5 Fr catheter with trochar was advanced into the ascites in the right lower quadrant. Fluid was aspirated. The catheter was removed, and a dressing was applied. There were no immediate complications. FINDINGS: Ultrasound images demonstrate ascites and the catheter within the fluid. IMPRESSION: 1. Successful ultrasound-guided paracentesis yielding 1500 mL of clear, gio-colored fluid. Reviewed, dictated and finalized at location A. IMPRESSION: 1. Successful ultrasound-guided paracentesis yielding 1500 mL of clear, gio- colored fluid.
--- NOTE | ~2021-03-20 | US_ITS ---
EXAMINATION: US venous doppler [facility] DATE: 03/21/2021 16:23 INDICATION: Lower limb edema. TECHNIQUE: Grayscale ultrasound images without and with compression and Doppler ultrasound images of the bilateral lower extremity veins were obtained. COMPARISON: Ultrasound 04/18/2020 FINDINGS: The visualized portions of right common femoral vein, profunda (deep) femoral vein, femoral vein, pop liteal vein, peroneal veins, posterior tibial veins, and greater saphenous vein outflow are patent. The visualized portions of left common femoral vein, profunda femoral vein, femoral vein, popliteal v ein, peroneal veins, posterior tibial veins, and greater saphenous vein outflow are patent. IMPRESSION: 1. No deep venous thrombosis. Reviewed, dictated and finalized at location A.
--- NOTE | ~2021-03-20 | XR_ITS ---
EXAMINATION: XR abdomen obstructive series EXAM DATE: 03/21/2021 16:06 INDICATION: ABD distension, low abdominal pain. TECHNIQUE: Frontal upright projection of the upper abdomen, frontal projection of the lower abdomen f or interpretation. Comparison is made to prior examination from 02/25/2021. FINDINGS: Low abdominal pain. There are cholecystectomy clips. No evidence of free intraperitoneal g as. No small bowel obstruction suspected. Expected amount of colonic stool. IMPRESSION: Unremarkable abdomen x-ray exam. Reviewed, dictated and finalized at location G.
--- NOTE | ~2021-03-20 | XR_ITS ---
EXAMINATION: XR chest 2V DATE: 03/20/2021 11:46 INDICATION: Shortness of breath and chest pressure. TECHNIQUE: Frontal and lateral views of the chest were obtained. COMPARISON: Chest 2 views 11/09/2019, CT abdomen and pelvis 02/21/2021 FINDINGS: There are interstitial opacities in the right lower lung zone. No pleural effusion or pneum othorax. There is enlargement of the cardiac silhouette. There are chronic compression fractures in l ower thoracic spine. Surgical clips in the right upper quadrant are likely from cholecystectomy. IMPRESSION: 1. Interstitial opacities in right lower lung zone, consistent with mild atelectasis versus mild pulm onary edema. 2. Enlargement of the cardiac silhouette, likely a combination of cardiomegaly and pericardial effusi on as seen on the recent CT. Reviewed, dictated and finalized at location A. IMPRESSION: 1. Interstitial opacities in right lower lung zone, consistent with mild atelec tasis versus mild pulmonary edema. 2. Enlargement of the cardiac silhouette, likely a combination of cardiomegaly and pericardial effusion as seen on the recent CT.
[2021-03-20] MEDS: ONDANSETRON INJ 4 MG/2 ML VIAL IV PUSH (10:29)
[2021-03-20] MEDS: PANTOPRAZOLE SODIUM IV 40 MG VIAL 80 MG IV PUSH (10:30)
[2021-03-20 10:51] LABS: Basophils Percent Auto 0.7 % (0.2-1.2); Eosinophils Absolute Auto 0.1 K/mm3 (0-0.3); Eosinophils Percent Auto 1.2 % (0-4.4); Hemoglobin 7.9 g/dL (14.0-18.0); Immature Granulocyte Absolute 0.01 K/mm3 (0.00-0.031); Immature Granulocyte Percent A 0.2 % (0-0.5); Immature Platelet Fraction Pct 7.8 % (0.9-11.2); Lymphocytes Absolute Auto 0.78 K/mm3 (0.9-3.2); Lymphocytes Percent Auto 18.8 % (18.3-44.2); Mean Corpuscular HGB Conc 28.2 g/dl (32-36); Mean Corpuscular Hemoglobin 24.5 pg (26-34); Mean Platelet Volume 10.3 fl (7.4-10.4); Monocytes Absolute Auto 0.5 K/mm3 (0.1-0.6); Monocytes Percent Auto 11.1 % (2.6-8.5); Neutrophils Absolute Auto 2.8 K/mm3 (1.3-6.7); Platelet Count Result 145 k/mm3 (150-375); Red Blood Count 3.22 M/mm3 (4.6-6.20); Red Cell Distribution Width 16.9 % (11.5-14.5); White Blood Count 4.2 K/mm3 (4.5-10.0)
--- NOTE | 2021-03-20 10:53 | ED.GIBLEED ---
HPI - GI Bleed General Chief complaint: GI Bleed Stated complaint: vomitting blood Time Seen by Provider: 03/20/21 10:05 Source: patient, RN notes reviewed and old records reviewed Mode of arrival: ambulatory Limitations: no limitations History of Present Illness HPI Narrative: This is a 51 year old male with history of cirrhosis and esophageal varices who presents for evaluation of hematemesis and abdominal distension. Patient states his abdomen has continued to get progressively more distended over past 1 week. He also reports this morning he had an episode of hematemesis. He reports he had emesis of dark blood with clots, and he approximates 1.5 cup of blood. He states his stool is starting to darken as well. He has history of esophageal varices and he had banding performed 1 month ago for similar occurrence. He is have abdominal pain due to his distension and he states it is making it harder to bleed. HE denies cough or chest pain or fever. He states he was told to come to ER today by Dr. Guerin. Related Data Home Medications Medication Instructions Recorded Confirmed nadolol 40 mg PO DAILY 02/21/21 03/20/21 omeprazole 20 mg PO DAILY 02/21/21 03/20/21 Allergies Allergy/AdvReac Type Severity Reaction Status Date / Time No Known Allergies Allergy Verified 03/11/21 09:23 Review of Systems Review of Systems: All systems reviewed & are unremarkable except as noted in HPI and below PMFSH Past Medical History Medical History Arthritis Cirrhosis of liver with ascites Gastric ulcer Gastroesophageal reflux disease History of kidney stones Hypertension Portal hypertensive gastropathy Noted on endoscopy on 03/23/[address] Duran. Prostate cancer Status post radiation seed implantation. Smoker Spontaneous bacterial peritonitis Tobacco use Surgical History Surgical History History of appendectomy History of cholecystectomy History of inguinal hernia repair History of lithotripsy History of repair of right rotator cuff History of testicular surgery benign. Family History Family History Mother Family history of malignant neoplasm of breast in first degree relative Other Family history of malignant neoplasm Social History Social History (Updated 03/20/21 @ 14:07 by Romi Leiva PA-C) Social History: The patient has 2 grown children and he is raising a 6-year-old child. Surrogate decision maker: Marnie Washington Who is his aunt. His is dying of cancer this time.Code status: Full code. The patient stated that he quit smoking over the last couple months. He denies any alcohol use recently he has had about 10 years ago he drank heavily. Then he goes on to say that his cirrhosis is not due to his alcohol use 10 years ago. He denies any marijuana or illicit drugs. Smoking packs per day: 1 Smoking cigarettes per day: 20.0 Years smoked: 30 Smoking pack-years: 30.00 Smoking status: Former smoker Tobacco type: cigarettes Second hand tobacco smoke exposure: Yes Alcohol intake: never Drinks per week: 2 Alcohol use details: BEERS Substance use: never Substance use type: does not use Additional living arrangements comments: Resides in [place] with his . 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 [employer] Gender identity (if verbalized by the patient): Male Spiritual care concerns: No Exam Const: General: no acute distress and alert Orientation/consciousness: patient oriented x3 HENMT: Head: normocephalic and atraumatic Mouth: Yes Normal oral and palatal mucosa present, Yes lip normal, Yes oropharynx normal and Yes moist mucous membranes Eyes: Conjunctivae: conjunctivae normal Pupils: Equal, round and reactive pupils present EOM: EOMs intact bilaterally Resp:
[2021-03-20 10:57] LABS: INR 1.1
[2021-03-20 10:58] LABS: Partial Thromboplastin Time 30.7 SECONDS (22.3-36.8)
[2021-03-20] MEDS: HYDROmorphone HCL INJ (*CRX) 1 MG/ML SYR 0.5 MG IV PUSH ×2 (11:01→18:17)
[2021-03-20] MEDS: OCTREOTIDE ACETATE 50 MCG/ML VIAL IV PUSH (11:05)
[2021-03-20 11:11] LABS: Ammonia < 9 umol/L (9-30)
[2021-03-20 11:11] LABS: Alanine Aminotransferase 9 U/L (4-50); Albumin Level 4.3 g/dL (3.5-5.1); Alkaline Phosphatase 133 U/L (38-126); Anion Gap 9 mmol/L (8-16); Aspartate Amino Transferase 26 U/L (17-59); Bilirubin,Total 0.5 mg/dL (0.2-1.3); Blood Urea Nitrogen 15 mg/dL (9-20); Calcium 8.7 mg/dL (8.4-10.2); Carbon Dioxide 27 mmol/L (22-30); Chloride 102 mmol/L (98-107); Estimated CRCL calculation 167 ml/min; Estimated Glomerular Filt Rate > 60; Glucose 171 mg/dL (65-110); Lipase 52 U/L (23-300); Magnesium 1.7 mg/dL (1.6-2.3); Potassium 4.3 mmol/L (3.4-5.0); Sodium 138 mmol/L (137-145)
--- NOTE | 2021-03-20 12:34 | WPDGICN ---
Assessment and Plan Assessment and plan (1) Acute GI bleeding: Code(s): K92.2 - Gastrointestinal hemorrhage, unspecified Status: Acute Assessment and Plan: his hemoglobin is in the range it normally is. He he states he vomited blood once this morning. He claims he had a black stool, however it was checked in the emergency room and was Hemoccult negative. We are starting him on octreotide and PPI (2) Anemia: Code(s): D64.9 - Anemia, unspecified Status: Acute Assessment and Plan: his blood counts were coming up slightly. He had a hemoglobin over 8 recently. I thought that we had started him on iron but he is not taking and now apparently (3) Ascites: Code(s): R18.8 - Other ascites Status: Acute Assessment and Plan: portable ultrasound in the emergency room did see some ascites. He is going to be sent to Radiology for attempted paracentesis (4) Cirrhosis of liver with ascites: Code(s): K74.60 - Unspecified cirrhosis of liver; R18.8 - Other ascites Status: Chronic Assessment and Plan: he is awaiting consultation with hepatology at [facility]. The appointment was supposed to be this month but has been deferred until late April. He states that he does not drink alcohol, and he is quick to add that his cirrhosis is not caused by alcohol (5) Abdominal bloating: Code(s): R14.0 - Abdominal distension (gaseous) Status: Acute Assessment and Plan: some of his abdominal distention seems to be abdominal gas because of tympany on percussion in the upper abdomen. We will see how much improvement he has after paracentesis GI Consult Note Consult date/time: 03/20/21 12:34 HPI: Matt Worley II is a 51 year old male with known cirrhosis who has had multiple recent hospitalizations, primarily for gastrointestinal bleeding due to esophageal varices and also because of abdominal distention. He had been found to have ascites which has been removed by Radiology. The last time he was hospitalized and had abdominal distension no significant ascitic fluid was seen on ultrasound, at least not any that could be reached with the needle. He states that he has not been able to sleep in bed for the last several days. He must sleep upright because of shortness of breath due to his abdomen being distended. He states he is having bowel movements. He had a black stool today that he thought might be blood, however hemoccult in the emergency room was negative. He states he also vomited up perhaps a cupful of blood. He has had esophageal varices banded a couple of times, most recently about 4 weeks ago. He states he has continued to take his medication including nadolol for portal hypertension, as well as spironolactone and Lasix. Despite this he states that not only is his abdomen more distended but he is getting significant edema in his legs again. He has been waiting to be seen by hepatology at [facility]. His initial office appointment has been postponed a couple of times, now scheduled for May 14. The etiology of his cirrhosis is not certain. He had been a drinker until 10 years ago. He has had no alcohol for 10 years. He was found have a elevated antinuclear antibody when checked 1 year ago suggesting that he may have autoimmune liver disease Review of Systems Review of Systems: All systems reviewed & are unremarkable except as noted in HPI and below PMFSH Past Medical History Medical History Acute blood loss anemia Arthritis Cirrhosis of liver with ascites Decompensation of cirrhosis of liver Gastric ulcer Gastroesophageal reflux disease Hematemesis History of kidney stones Hypertension Portal hypertensive gastropathy Noted on endoscopy on 03/23/[address] Duran. Prostate cancer Status post radiation seed implantation. Smoker Spontaneous bacterial peritonitis Tobacco use Surgical
--- NOTE | 2021-03-20 14:00 | PM.IMHP ---
H&P: HPI History of Present Illness Date/Time: 03/20/21 14:00 Chief Complaint: Abdominal pain and vomiting blood. Narrative: This is a 51-year-old male with cirrhosis and history of esophageal varices and gastric ulcers who presented to the emergency department earlier today with complaints of abdominal pain and vomiting blood. He reports increased swelling in his lower extremities and abdomen over the past 4 to 5 days and it is to the point where he is feeling short of breath due to the swelling. He has also not been sleeping well due to a pretty consistent pressure-like pain throughout his abdomen although when he moves it feels ?like I am being stabbed with knives.? Shortly after waking this morning he was nauseated and reports vomiting about 1 to 1.5 cups of dark red blood admixed with clots. He has had no further episodes of hematemesis and the ED physician reports that his stool was Hemoccult negative on rectal exam though the patient reports intermittent dark stools. At the time my evaluation he is status post paracentesis which yielded 1500 mL of clear, gio colored fluid but unfortunately he continues to have pain. His shortness of breath has improved, however. Currently he rates his pain 9/10 and tells me that the tramadol he has been taking at home does not work. He also reports that he has been told not to take acetaminophen or ibuprofen given his liver disease and history of GI bleeds. Patient reports compliance with his home medication. He has been waiting to see a dexigraph operator in [place] for over a year but unfortunately his appointments keep getting rescheduled, now scheduled for May 14. He denies fever, chills, sweats, chest pain, cough, sick contacts, chest pain, diarrhea, and dysuria. Review of Systems Review of Systems: Twelve systems were reviewed with pertinent positives and negatives as per HPI. Except as documented, all other systems were reviewed and are negative. [facility] Past Medical History Medical History Arthritis Chronic anemia Cirrhosis of liver with ascites Gastric ulcer Gastroesophageal reflux disease History of kidney stones Hypertension Pericardial effusion Noted on CT and echocardiogram in August 2020. No evidence of tamponade. Portal hypertensive gastropathy Noted on endoscopy on 03/23/[address] Duran. Prostate cancer Status post radiation seed implantation. Smoker Spontaneous bacterial peritonitis (04/2020) Tobacco use Surgical History Surgical History History of appendectomy History of cholecystectomy History of inguinal hernia repair History of lithotripsy History of repair of right rotator cuff History of testicular surgery benign. Family History Family History Mother Family history of malignant neoplasm of breast in first degree relative Other Family history of malignant neoplasm Social History Social History (Updated 03/20/21 @ 20:35 by Romi Leiva PA-C) Social History: Surrogate decision maker: Marnie Washington, aunt. Code status: Full code. 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 Meds Home Medications and Allergies Home Medications Medication Instructions Recorded Confirmed Type spironolactone 25 mg PO BID #60 tablet 12/08/20 03/20/21 Rx nadolol 40 mg PO DAILY 02/21/21 03/20/21 History omeprazole 20 mg PO DAILY 02/21/21 03/20/21
[2021-03-20] MEDS: FUROSEMIDE INJ 40 MG/4 ML VIAL IV PUSH ×2 (14:25→21:49)
[2021-03-20 15:36] LABS: Hematocrit 28.1 % (42.0-52.0)
[2021-03-20 15:42] LABS: Appearance Peritoneal Fluid Cloudy (Clear); Color Peritoneal Fluid Yellow (Colorless); Source Peritoneal Fluid Peritoneal Fluid
[2021-03-20 15:42] LABS: Lactic Acid Reflex 0.6 mmol/L (0.7-2.1)
[2021-03-20 15:43] LABS: Monocytes Peritoneal Fluid 14 %; Nucleated Cells Peritoneal Flu 320 /uL (0-500); RBC Peritoneal Fluid 1454 /uL (0-100000)
[2021-03-20 15:44] LABS: Lymphocytes Peritoneal Fluid 68 %; Macrophages Peritoneal Fluid 18 %
--- NOTE | 2021-03-20 17:01 | ADMGEN ---
This patient, Matt Worley II, was admitted to IMU Room 209-01 at 1517. Patient/family oriented to hospital policies and general routines including ID bracelet, bed and alarms, visiting hours, pain management, procedures, bathroom and other care routines, personal items, smoking policy, room service/diet, and visiting hours. Information on how to activate the Rapid Response Team has been discussed. Patient/Family are encouraged to report perceived risks to care and to ask questions if they do not understand what they are told or what they should do.
[2021-03-20 18:32] LABS: Hematocrit 26.8 % (42.0-52.0); Hemoglobin 7.5 g/dL (14.0-18.0)
[2021-03-20] MEDS: traMADol HCL (*CRX) 50 MG TABLET PO (21:49)
[2021-03-20] MEDS: oxyCODONE HCL (*CRX) 5 MG TAB IR PO (23:15)
[2021-03-21] VITALS (14 sets, daily range): BP systolic 119–149; BP diastolic 69–93; PULSE 68–97; RESP 18–20; TEMP 36.3–36.9; O2SAT 94–99
[2021-03-21 01:17] LABS: Hemoglobin 7.6 g/dL (14.0-18.0)
[2021-03-21] MEDS: traMADol HCL (*CRX) 50 MG TABLET PO ×2 (05:25→17:05)
[2021-03-21 06:55] LABS: Hematocrit 27.7 % (42.0-52.0); Hemoglobin 7.8 g/dL (14.0-18.0)
[2021-03-21 07:07] LABS: Alanine Aminotransferase 8 U/L (4-50); Albumin Level 3.9 g/dL (3.5-5.1); Alkaline Phosphatase 120 U/L (38-126); Anion Gap 8 mmol/L (8-16); Aspartate Amino Transferase 29 U/L (17-59); Blood Urea Nitrogen 15 mg/dL (9-20); CRP < 0.5 mg/dL (<1.0); Calcium 8.2 mg/dL (8.4-10.2); Carbon Dioxide 28 mmol/L (22-30); Chloride 95 mmol/L (98-107); Estimated CRCL calculation 148 ml/min; Estimated Glomerular Filt Rate > 60; Glucose 154 mg/dL (65-110); Magnesium 1.6 mg/dL (1.6-2.3); Potassium 3.8 mmol/L (3.4-5.0); Sodium 131 mmol/L (137-145)
--- NOTE | 2021-03-21 07:24 | WPDGIPROGNO ---
Progress Note: A&P Assessment and Plan (1) Acute GI bleeding: Code(s): K92.2 - Gastrointestinal hemorrhage, unspecified Status: Acute Assessment and Plan: his hemoglobin is in the range it normally is. He he states he vomited blood once Yesterday morning. He claims he had a black stool, however it was checked in the emergency room and was Hemoccult negative. he has been on Octreotide drip. I will discontinue that (2) Anemia: Code(s): D64.9 - Anemia, unspecified Status: Acute Assessment and Plan: his blood counts were coming up slightly. He had a hemoglobin over 8 recently. he states that he actually has been taking iron as I instructed him to start doing a couple weeks ago. I would probably explain his dark stools (3) Ascites: Code(s): R18.8 - Other ascites Status: Acute Assessment and Plan: portable ultrasound in the emergency room did see some ascites. paracentesis was done with removal of 1.5 L. He states he feels much better (4) Cirrhosis of liver with ascites: Code(s): K74.60 - Unspecified cirrhosis of liver; R18.8 - Other ascites Status: Chronic Assessment and Plan: he is awaiting consultation with hepatology at [facility]. The appointment was supposed to be this month but has been deferred until late April. He states that he does not drink alcohol, and he is quick to add that his cirrhosis is not caused by alcohol (5) Abdominal bloating: Code(s): R14.0 - Abdominal distension (gaseous) Status: Acute Assessment and Plan: some of his abdominal distention seems to be abdominal gas because of tympany on percussion in the upper abdomen. We will see how much improvement he has after paracentesis 03/21 he had she is less distended but I do stool detect tympany in the upper abdomen. I am going to obtain obstructive series just to get a look at his gas pattern, because even when he did not have any detectable ascitic fluid a few weeks ago he had a distended abdomen. Because he is hungry of going to advance his diet. I think that he could be discharged today Subjective Date/time seen: 03/21/21 07:24 he feels much better since paracentesis they were able to remove about 1/2 L of fluid which was somewhat cloudy. Analysis does not show an increase in white blood cells. He has had no further emesis or abnormal stools. He is hungry today. Review of Systems Review of Systems: All systems reviewed & are unremarkable except as noted in HPI and below Exam Const: General: cooperative and uncomfortable Nutritional Appearance: edematous Orientation/consciousness: patient oriented x3 Eyes: Conjunctivae: conjunctivae normal Sclera: sclerae normal Resp: Auscultation: clear to auscultation bilaterally GI: Inspection: normal to inspection GI Palp: No abdominal tenderness and Yes Soft to palpation Percussion: Yes tympanic to percussion ( upper abdomen) Auscultation: normal bowel sounds Neuro: General: patient oriented x3 Motor exam (neuro): Motor fasciculations not present and No Asterixis during motor activity present Objective Data Vital Signs Vital Signs: Vital Signs - 24 hr 03/20/21 10:09 03/20/21 11:56 03/20/21 14:29 Temperature 36.8 C Pulse Rate 97 92 97 Respiratory Rate 18 98 H 16 Blood Pressure 181/111 H 147/94 H 148/87 H Pulse Oximetry 100 98 97 03/20/21 16:00 03/20/21 18:00 03/20/21 19:45 Temperature 37.7 C H 37.6 C Pulse Rate 94 99 91 Respiratory Rate 16 16 Blood Pressure 151/90 H 148/87 H Pulse Oximetry 97 98 03/20/21 20:00 03/20/21 22:00 03/20/21 23:52 Temperature 36.4 C L Pulse Rate 96 112 H 95 Respiratory Rate 22 H Blood Pressure 155/89 H Pulse Oximetry 99 03/21/21 00:00 03/21/21 02:00 03/21/21 04:00 Temperature 36.3 C L Pulse Rate 93 93 96 Respiratory Rate 20 Blood Pressure 149/82 H Pulse Oximetry 99 03/21/21 06:00 Temperature
[2021-03-21] MEDS: FUROSEMIDE INJ 40 MG/4 ML VIAL IV PUSH ×2 (08:49→16:59)
[2021-03-21] MEDS: nadoloL 20 MG TABLET 40 MG PO (08:50)
[2021-03-21] MEDS: SPIRONOLACTONE 25 MG TABLET PO ×2 (08:51→16:59)
--- NOTE | 2021-03-21 09:37 | PM.IMPN ---
Progress Note: A&P Additional Plan START OF DOCTOR NOEL?S PROGRESS NOTE Subjective: The patient still complains of mild epigastric pain however he states that has come improved compared to how he felt upon admission. He denies fever, rigors, nausea, vomiting, cough, wheeze, chest pain, dyspnea. I have explained to the patient his current medical condition plan of care I have answered all his questions Objective: General: -Alert -No acute distress -No dyspnea -No tachypnea Heart: -Regular rate -Regular rhythm -No murmurs -No gallops -No rubs Lungs: -No wheeze -No rhonchi -No rales Abdomen: -Normal bowel sounds in all four quadrants -No rebound -No guarding -minor periumbilical tenderness to palpation Extremities: -2/4 pulse in all four extremities -No clubbing -No cyanosis -trace bipedal edema Additional Details / Additional Findings / Exceptions / Miscellaneous: Pertinent Laboratory Results / Pertinent Radiology Results / Pertinent Diagnostic Results / Pertinent Vital Signs: Blood pressure 140/93, pulse 87, hemoglobin 7.8, sodium 131 Assessment / Plan: Hematemesis. I appreciate gastroenterology evaluated the patient. Protonix drip IV at the mg per hour. Will monitor hemoglobin hemoglobin level q.8 hours Anemia, chronic. Will monitor hemoglobin level q.8 hours. Check serum ferritin, iron panel, fecal occult blood. Patient reportedly fecal occult blood negative in the emergency department Ascites, status post paracentesis on March 20, 2021 in the emergency department with aspiration of 1.5 L of fluid History of esophageal varices History of gastric ulcer/GERD. IV Protonix drip at 8 milligrams/hour Cirrhosis. Lasix 40 mg IV b.i.d. plus nadolol 80 mg p.o. daily plus Aldactone 25 mg p.o. b.i.d. Arthritis History of nephrolithiasis Hypertension. Aldactone 25 mg p.o. b.i.d. plus Lasix 40 mg IV b.i.d. plus nadolol 80 mg p.o. daily History of prostate cancer, status post radioactive seed implantation. Outpatient follow-up with Urology upon discharge Smoker. Patient becomes regarding smoking cessation IBS Thrombocytopenia. Will monitor platelet count intermittently Hyponatremia. Will monitor sodium levels intermittently DVT prophylaxis. Bilateral CTA Disposition: Possible discharge on this day of March 21, 2020 END OF DOCTOR NOEL?S PROGRESS NOTE Subjective Date/time seen: 03/21/21 09:37 Objective Data Vital Signs Vital Signs: Vital Signs - 24 hr 03/20/21 10:09 03/20/21 11:56 03/20/21 14:29 Temperature 98.2 F Pulse Rate 97 92 97 Respiratory Rate 18 98 H 16 Blood Pressure 181/111 H 147/94 H 148/87 H Pulse Oximetry 100 98 97 03/20/21 16:00 03/20/21 18:00 03/20/21 19:45 Temperature 99.9 F H 99.6 F Pulse Rate 94 99 91 Respiratory Rate 16 16 Blood Pressure 151/90 H 148/87 H Pulse Oximetry 97 98 03/20/21 20:00 03/20/21 22:00 03/20/21 23:52 Temperature 97.5 F L Pulse Rate 96 112 H 95 Respiratory Rate 22 H Blood Pressure 155/89 H Pulse Oximetry 99 03/21/21 00:00 03/21/21 02:00 03/21/21 04:00 Temperature 97.4 F L Pulse Rate 93 93 96 Respiratory Rate 20 Blood Pressure 149/82 H Pulse Oximetry 99 03/21/21 06:00 03/21/21 07:49 03/21/21 08:50 Temperature 98.2 F Pulse Rate 90 87 87 Respiratory Rate 18 Blood Pressure 141/93 H Pulse Oximetry 96 Intake/Output Intake/Output: Intake & Output 03/18/21 03/19/21 03/20/21 03/21/21 23:59 23:59 23:59 23:59 Intake Total 613 Output Total 2750 750 Balance -2750 -137 Meds/Results Medications: Active Medications Generic Name Dose Route Start Last Admin Trade Name Corazon PRN Reason Stop Dose Admin Furosemide 40 mg 03/20/21 20:45 03/21/21 08:49 Furosemide Inj 40 Mg/4 Ml Vial IV PUSH 40 mg BID FORTINO Administration Pantoprazole Sodium 80 mg/ 500 mls @ 50 mls/hr 03/20/21 12:15 03/21/21 05:22 Dextrose IV C
[2021-03-21] MEDS: MORPHINE SULFATE (*CRX) 2 MG/ML INJ 1 MG IV PUSH ×2 (10:44→15:21)
[2021-03-21 12:02] LABS: Hematocrit 29.2 % (42.0-52.0); Hemoglobin 8.3 g/dL (14.0-18.0)
[2021-03-21 12:14] LABS: Iron 37 ug/dL (49-181)
[2021-03-21 12:23] LABS: Percent Iron Saturation 9 % (20-50)
[2021-03-21 12:50] LABS: Ferritin 8.65 ng/mL (11.1-264)
--- NOTE | 2021-03-21 15:37 | PC.NURSE ---
On 03/21/21, the student, [Alma Lal], provided care and completed [facility] documentation on this patient. I have reviewed the student's documentation and agree with the findings.
[2021-03-21 15:56] LABS: IFOB Positive Control Positive; Immunochemical Fecal Occult Bl Negative (N)
[2021-03-21] MEDS: FERROUS SULFATE 324 MG TABLET PO (16:59)
--- NOTE | 2021-03-21 17:53 | PM.DS ---
DS: Admitting Diagnosis Discharge Date 5:55 p.m. on March 21, 2021 Admitting Diagnosis Hematemesis DS: Summary Hospital Course Hospital Course: See discharge summary Time Spent with Patient Time attestation: Total time spent providing and/or coordinating discharge services: START OF DOCTOR NOEL?S DISCHARGE SUMMARY Date of Admission: March 20, 2021 Date of Discharge: 5:54 p.m. on March 21, 2021 Primary Diagnosis: Hematemesis Secondary Diagnosis: Anemia, chronic, iron deficient Ascites, status post paracentesis on March 20, 2021 with aspiration of 1.5 L of fluid Esophageal varices History of gastric ulcer GERD Cirrhosis Arthritis History of nephrolithiasis Hypertension History of prostate cancer, status post radiation radioactive seed implantation Smoker IBS Thrombocytopenia Hyponatremia Consultations: Gastroenterology Disposition: The patient will be advised follow-up with gastro antral [facility] as directed for his history of cirrhosis The patient is advised follow-up with Urology as directed for his history of prostate cancer he is still being monitored for this medical condition Discharge Medications: Bentyl 10 mg p.o.: Frequency undefined: P.r.n. abdominal cramping Lasix 40 mg p.o. daily Prilosec 20 mg p.o. daily Aldactone 25 mg p.o. b.i.d. Nadolol 80 mg p.o. daily Vitamin-C 500 mg p.o. daily Ferrous sulfate 325 mg p.o. b.i.d. END OF DOCTOR NOEL?S DISCHARGE SUMMARY DS: Data Data Completed and Pending Labs on day of discharge: Labs from last 24 hours 03/21/21 03/21/21 03/21/21 15:02 11:38 11:38 Hgb 8.3 L Hct 29.2 L Sodium Potassium Chloride Carbon Dioxide Anion Gap BUN Creatinine Estim Creat Clear Calc Estimated GFR Glucose Calcium Magnesium Iron 37 L TIBC 434 % Saturation 9 L Ferritin 8.65 L Total Bilirubin AST ALT Alkaline Phosphatase C-Reactive Protein Total Protein Albumin Stl Occult Blood (IFOB) Negative 03/21/21 03/21/21 03/21/21 06:38 06:38 01:11 Hgb 7.8 L 7.6 L Hct 27.7 L 26.0 L Sodium 131 L Potassium 3.8 Chloride 95 L Carbon Dioxide 28 Anion Gap 8 BUN 15 Creatinine 0.80 Estim Creat Clear Calc 148 Estimated GFR > 60 Glucose 154 H Calcium 8.2 L Magnesium 1.6 Iron TIBC % Saturation Ferritin Total Bilirubin 1.0 AST 29 ALT 8 Alkaline Phosphatase 120 C-Reactive Protein < 0.5 Total Protein 7.0 Albumin 3.9 Stl Occult Blood (IFOB) 03/20/21 18:14 Hgb 7.5 L Hct 26.8 L Sodium Potassium Chloride Carbon Dioxide Anion Gap BUN Creatinine Estim Creat Clear Calc Estimated GFR Glucose Calcium Magnesium Iron TIBC % Saturation Ferritin Total Bilirubin AST ALT Alkaline Phosphatase C-Reactive Protein Total Protein Albumin Stl Occult Blood (IFOB) Preliminary micro results at discharge 03/20/21 12:44 Anaerobic Culture - Preliminary Ascites Fluid Discharge Plan Discharge Consulting providers: Carroll Guerin Discharging Clinician: Dr. Abbott Patient Disposition: Home, Self-Care Activity: as tolerated Diet: low sodium Discharge Instructions: The patient is advised follow-up with Gastroenterology as directed for his history of cirrhosis The patient is advised follow-up with Urology as directed for his history of prostate cancer if he is still being monitored for this medical condition Patient Instructions: Antibiotic Form Stand Alone Forms: General Discharge Information Follow-up/Referrals: Radha Abbott DO [Physician] - Discharge Medications: New ascorbic acid (vitamin C) [Vitamin C] 500 mg Tablet 500 mg PO DAILY Qty: 30 RF: 0 nadolol 20 mg Tablet 80 mg PO DAILY Qty: 120 RF: 0 ferrous sulfate 325 mg (65 mg iron) Tablet 324 mg
[2021-03-26 16:30] LABS: Glucose Peritoneal Fluid 168 mg/dL; LDH Peritoneal Fluid 51 U/L (<63); Total Protein Peritoneal Fluid <3.0 g/dL
[2021-03-26 21:07] LABS: Albumin Peritoneal Fluid 0.9 g/dL
== END 2021-03-21 18:27 | disposition home or self-care (01) ==
LOC: ANHED 10:06 → ANHIMU 15:03
PROVIDERS: Internal Medicine Gastroenterology; Admitting Provider Internal Medicine; Emergency Provider General Practice; PCP Physician Assistant; Visit Provider Internal Medicine
DX: K92.2 Gastrointestinal hemorrhage, unspecified (principal); K92.0 Hematemesis; K74.60 Unspecified cirrhosis of liver; R18.8 Other ascites; D64.9 Anemia, unspecified; R14.0 Abdominal distension (gaseous); R06.02 Shortness of breath; Z87.891 Personal history of nicotine dependence
CPT/HCPCS: 36415; 49083; 71046; 74019; 80053; 82042; 82140; 82274; 82728; 82945; 83540; 83550; 83605; 83615; 83690; 83735; 84157; 85014; 85018; 85025; 85055; 85610; 85730; 86140; 86850; 86900; 86901; 87070; 87075; 87205; 89051; 93970; 96365; 96366; 96368; 96375; 96376; 99285; A9270; C9113; G0378; G0379; J1170; J1940; J2270; J2354; J2405; J7060

== ENCOUNTER 2021-04-15 02:28 | Observation (INO) | payer OTHER, SELFPAY ==
[2021-04-15] VITALS (10 sets, daily range): BP systolic 152–173; BP diastolic 82–103; PULSE 78–107; RESP 16–22; TEMP 36.4–37.6; O2SAT 91–99; BMI 31.2
--- NOTE | 2021-04-15 | ECHO_ITS ---
Patient Info Name: Matt Worley Age: 51 years : 1970 Gender: Male Ht: 65 in Wt: 187 lbs BSA: 2.00 m2 HR: 107 bpm BP: 162 / 86 mmHg Heart Rhythm: Sinus Rhythm Technical Quality: Good Exam Date: 04/15/2021 1:46 PM Exam Location: [facility] Pulmonary Exam Room: 259 Patient Status: Inpatient Admit Date: 04/15/2021 Staff Ordering Physician: Jermain Bradford Social Media Sr Strategy Manager: Berna Wharton RDCS Attending Provider: Dima Buenrostro MD Referring Physician: Sanchez BELTRAN; Exam Type: CA echo doppler color flow Study Info Indications - fluid overload Complete two-dimensional, color flow and Doppler transthoracic echocardiogram is performed. Summary 1. Complete two-dimensional, color flow and Doppler transthoracic echocardiogram is performed. 2. Left ventricular chamber dimension is normal. 3. Left ventricular systolic function is normal, estimated at 55-60%. 4. Left atrial chamber dimension is moderate to severely enlarged. 5. Right atrial chamber dimension is severely enlarged. 6. There is mild tricuspid valve regurgitation. 7. Moderate pulmonary hypertension, estimated pulmonary arterial systolic pressure is 53 mmHg. 8. Normal inferior vena cava with >50% collapse upon inspiration consistent with normal right atrial pressure, 5 mmHg. 9. Circumferential pericardial effusion largest posteriorly up to 2.6cm, small anteriorly up to 0.9cm without tamponade physiology. Left Ventricle Left ventricular chamber dimension is normal. Left ventricular systolic function is normal, estimated at 55-60%. There is no increased left ventricular wall thickness. The left ventricular diastolic function is abnormal. Right Ventricle Right ventricular chamber dimension is normal. Right ventricular systolic function is normal. Left Atria Left atrial chamber dimension is moderate to severely enlarged. Right Atria Right atrial chamber dimension is severely enlarged. Aortic Valve The aortic valve is probable trileaflet. There is mild aortic valve sclerosis. There is no aortic valve stenosis. There is trace aortic valve regurgitation. Pulmonic Valve The pulmonic valve is not well visualized. Mitral Valve The mitral valve has normal leaflets. There is mild mitral valve regurgitation. The mitral valve annulus is mildly calcified. Tricuspid Valve The tricuspid valve leaflets are normal. There is mild tricuspid valve regurgitation. Moderate pulmonary hypertension, estimated pulmonary arterial systolic pressure is 53 mmHg. Pericardium/Pleural The pericardium appears normal. Circumferential pericardial effusion largest posteriorly up to 2.6cm, small anteriorly up to 0.9cm without tamponade physiology. Inferior Vena Cava Normal inferior vena cava with >50% collapse upon inspiration consistent with normal right atrial pressure, 5 mmHg. Aorta The aortic root size at the sinus of Valsalva is normal. There is mild aortic atherosclerosis. Left Ventricular Outflow Tract Name Value Normal LVOT 2D LVOT Diameter 2.0 cm LVOT Doppler LVOT Peak Gradient 5 mmHg LVOT Jayla
--- NOTE | ~2021-04-15 | XR_ITS ---
EXAMINATION: XR chest 2V DATE: 04/15/2021 03:14 INDICATION: Shortness of breath TECHNIQUE: PA and lateral views of the chest were obtained. COMPARISON: Chest radiograph dated 03/20/2021 FINDINGS: Mild dependent predominant increased interstitial pattern at the lower lung zones, right greater than left. No other airspace opacities, pneumothorax or pleural effusion. Persistent globular enlargement of the cardiac silhouette which on CT dated 02/22/2021 corresponded to both cardiomegaly and a perica rdial effusion. Cholecystectomy clips in right upper quadrant. IMPRESSION: 1. Mild interstitial pattern at the dependent lung bases, right greater than left which could represe nt mild pulmonary edema versus atelectasis. 2. Enlarged cardiac silhouette likely combination of clinically and pericardial effusion is seen on r ecent CT. Reviewed, dictated and finalized at location A. IMPRESSION: 1. Mild interstitial pattern at the dependent lung bases, right greater than le ft which could represent mild pulmonary edema versus atelectasis. 2. Enlarged cardiac silhouette likely combination of clinically and pericardial effusion is seen on recent CT.
--- NOTE | ~2021-04-15 | US_ITS ---
EXAMINATION: US paracentesis abd w/image DATE: 04/15/2021 12:48 INDICATION: Symptomatic ascites with shortness of breath. TECHNIQUE: The procedure and its risks and benefits were discussed with the patient. Potential risks discussed included bleeding and infection. The skin was prepped and draped in sterile fashion. 1% lid ocaine was used for local anesthesia. Under ultrasound guidance, a 5 Fr catheter with trochar was adv anced into the ascites in the right lower quadrant. Fluid was aspirated into vacuum bottles. The cath eter was removed, and a dressing was applied. There were no immediate complications. FINDINGS: Ultrasound images demonstrate ascites and the catheter within the fluid. IMPRESSION: 1. Successful ultrasound-guided paracentesis yielding 800 mL of cloudy yellow fluid. Reviewed, dictated and finalized at location A.
[2021-04-15 03:13] LABS: Basophils Absolute Auto 0.1 K/mm3 (0.0-0.1); Basophils Percent Auto 1.3 % (0.2-1.2); Eosinophils Absolute Auto 0.1 K/mm3 (0-0.3); Eosinophils Percent Auto 2.3 % (0-4.4); Hematocrit 29.8 % (42.0-52.0); Hemoglobin 8.3 g/dL (14.0-18.0); Immature Granulocyte Absolute 0.01 K/mm3 (0.00-0.031); Immature Granulocyte Percent A 0.3 % (0-0.5); Lymphocytes Absolute Auto 0.91 K/mm3 (0.9-3.2); Lymphocytes Percent Auto 22.9 % (18.3-44.2); Mean Corpuscular HGB Conc 27.9 g/dl (32-36); Mean Corpuscular Hemoglobin 22.9 pg (26-34); Mean Corpuscular Volume 82.1 fl (80-100); Mean Platelet Volume 10.6 fl (7.4-10.4); Monocytes Absolute Auto 0.4 K/mm3 (0.1-0.6); Monocytes Percent Auto 10.8 % (2.6-8.5); Neutrophils Absolute Auto 2.5 K/mm3 (1.3-6.7); Neutrophils Percent Auto 62.4 % (45.5-73.1); Platelet Count Result 157 k/mm3 (150-375); Red Blood Count 3.63 M/mm3 (4.6-6.20)
[2021-04-15 03:14] LABS: Hypochromasia 1+ (NORMAL); Platelet Estimate Adequate (Adequate)
[2021-04-15] MEDS: MORPHINE SULFATE (*CRX) 4 MG/ML INJ IV PUSH ×8 (03:22→23:09)
[2021-04-15 03:23] LABS: INR 1.1; Prothrombin Time 14.1 Seconds (11.1-14.7)
[2021-04-15 03:24] LABS: Partial Thromboplastin Time 33.3 SECONDS (22.3-36.8)
[2021-04-15 03:26] LABS: Alanine Aminotransferase 9 U/L (4-50); Alkaline Phosphatase 125 U/L (38-126); Anion Gap 9 mmol/L (8-16); Aspartate Amino Transferase 28 U/L (17-59); Bilirubin,Total 0.3 mg/dL (0.2-1.3); Blood Urea Nitrogen 12 mg/dL (9-20); Calcium 9.3 mg/dL (8.4-10.2); Carbon Dioxide 25 mmol/L (22-30); Chloride 104 mmol/L (98-107); Estimated CRCL calculation 90 ml/min; Estimated Glomerular Filt Rate > 60; Glucose 149 mg/dL (65-110); Lipase 66 U/L (23-300); Potassium 3.8 mmol/L (3.4-5.0); Sodium 138 mmol/L (137-145)
[2021-04-15 04:21] LABS: NT Pro B Type Natriuretic Pept 1820 pg/mL (5-100)
--- NOTE | 2021-04-15 04:33 | ED.GENADULT ---
HPI - General Adult General Chief complaint: Abdominal Pain Stated complaint: dyspnea Time Seen by Provider: 04/15/21 02:32 History of Present Illness HPI narrative: Patient is a 51-year-old male who presents ER with shortness of breath. Worsened over the last day but much worse this evening. [place] distressed and called for his called 911. No chest pain or chest pressure. Reports a tense and distended abdomen. Has required paracentesis in the past. No fevers chills or sweats. Symptoms worse with laying down flat. Has been referred to GI it [facility]. Related Data Allergies Allergy/AdvReac Type Severity Reaction Status Date / Time No Known Allergies Allergy Verified 04/15/21 02:43 Review of Systems Review of Systems: All systems reviewed & are unremarkable except as noted in HPI and below Constitutional: Constitutional: Denies chills, Denies fever(s) and Denies weakness ENT: Denies nasal congestion and Denies sore throat Cardiovascular: Cardiovascular: Denies chest pain and Denies radiating jaw, neck or arm pain Respiratory: Respiratory: Denies cough, Reports dyspnea and Denies wheezing Gastrointestinal: Gastrointestinal: Reports abdominal pain, Denies nausea and Denies vomiting PMFSH Past Medical History Medical History Arthritis Chronic anemia Cirrhosis of liver with ascites Gastric ulcer Gastroesophageal reflux disease History of kidney stones Hypertension Pericardial effusion Noted on CT and echocardiogram in August 2020. No evidence of tamponade. Portal hypertensive gastropathy Noted on endoscopy on 03/23/[address] Duran. Prostate cancer Status post radiation seed implantation. Smoker Spontaneous bacterial peritonitis (04/2020) Tobacco use Surgical History Surgical History History of appendectomy History of cholecystectomy History of inguinal hernia repair History of lithotripsy History of repair of right rotator cuff History of testicular surgery benign. Family History Family History Mother Family history of malignant neoplasm of breast in first degree relative Other Family history of malignant neoplasm Social History Social History (Updated 03/20/21 @ 20:35 by Romi Leiva PA-C) Social History: Surrogate decision maker: Marnie Felix, aunt. Code status: Full code. 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 Exam Narrative: GENERAL: Well-appearing, well-nourished, and in no acute distress. HEAD: Normocephalic, atraumatic. ENT: Mucous membranes moist. CHEST: Clear to auscultation. No respiratory distress. HEART: Regular rate and rhythm. Normal peripheral pulses. ABDOMEN: Soft, nontender, tense distended abdomen. EXTREMITIES: Normal range of motion. No edema. SKIN: Warm, dry, no rash. NEURO:Alert and oriented x3. PSYCH: Normal mood and affect. Course Course Emergency Course: Admit to hospitalist service. Will order paracentesis will morning. Vital Signs Vital signs: Vital Signs Temperature 98.9 F 04/15/21 02:33 Pulse Rate 107 H 04/15/21 02:33 Respiratory Rate 18 04/15/21 02:33 Blood Pressure 169/103 H 04/15/21 02:33 Pulse Oximetry 95 04/15/21 02:33 Temperature 98.9 F 04/15/21 02:33 Pulse Rate 100 04/15/21 04:46 Respiratory Rate 18 04/15/21 04:46 Blood Pressure 163/93 H 04/15/21 04:46 Pulse Oximetry 98
[2021-04-15] MEDS: FUROSEMIDE INJ 40 MG/4 ML VIAL IV PUSH ×2 (04:46→16:28)
--- NOTE | 2021-04-15 06:14 | ADMGEN ---
This patient, Matt Worley II, was admitted to 2 Medical Room 259-01. Patient/family oriented to hospital policies and general routines including ID bracelet, bed and alarms, visiting hours, pain management, procedures, bathroom and other care routines, personal items, smoking policy, room service/diet, and visiting hours. Information on how to activate the Rapid Response Team has been discussed. Patient/Family are encouraged to report perceived risks to care and to ask questions if they do not understand what they are told or what they should do.
[2021-04-15] MEDS: HYDROmorphone HCL INJ (*CRX) 1 MG/ML SYR 0.25 MG IV PUSH (08:25)
--- NOTE | 2021-04-15 09:55 | PM.IMHP ---
H&P: HPI History of Present Illness Date/Time: 04/15/21 08:35 Chief Complaint: Abdominal Pain Narrative: Patient is a 51 year old male with a past medical history of cirrhosis, CHF, pertonitis, and kidney stones that presented to the ED with complaints of shortness of breath, and firm ridged abdomen. He stated that he has been watching his abdomen fill up with fluid for that couple of weeks. However, last night symptoms were worse. He stated that his shortness of breath got so bad that he was unable to talk. He was beating on the dresser to get his 's attention who then called EMS for help. He stated that he has been following up with Dr. Guerin for symptom management until he can see the liver specialist on May 14. He stated that all of this started 2 weeks ago when he has noticed that he is unable to sleep. He stated that he has been trying to sleep sitting up, in chair, on his side however nothing seems to be helping at this time. Currently his pain is abdomen is 8/10. He stated that Dr. Guerin put him on Lasix and spironolactone for management of the fluid overload until he can see the liver specialist at [facility]. He did state with Lasix that he is up urinating throughout the day and at night. Patient also stated that his legs and ankles have been really swollen and he is unable to get shoes on at this time. Patient denies that the Lasix and spironolactone a working for him. He did state that he tried to take some ibuprofen which did not help him at that time. He has no complaints of chest pain, palpitations, cough, nausea, vomiting, diarrhea, constipation, headaches, weakness, urinary dysfunction, syncope, falls. Patient did state that he was very short of breath however that has cleared up and he is more little short of breath at this time. Abdomen pelvis is little distended and hard. Patient denies hematemesis and hematochezia. Patient stated his last bowel movement was yesterday evening which was fine. Patient also has a good appetite. Review of Systems Review of Systems: All systems reviewed & are unremarkable except as noted in HPI and below PMFSH Past Medical History Medical History Arthritis Chronic anemia Cirrhosis of liver with ascites CVA (cerebral vascular accident) 2004 Gastric ulcer Gastroesophageal reflux disease History of kidney stones Hypertension Pericardial effusion Noted on CT and echocardiogram in August 2020. No evidence of tamponade. Portal hypertensive gastropathy Noted on endoscopy on 03/23/[address] Duran. Prostate cancer Status post radiation seed implantation. Prostate tumor Smoker Spontaneous bacterial peritonitis (04/2020) Testicular cancer Tobacco use Surgical History Surgical History History of appendectomy History of cholecystectomy History of inguinal hernia repair History of lithotripsy History of repair of right rotator cuff History of testicular surgery benign. Family History Family History (Updated 04/15/21 @ 10:10 by ADELAIDA Cross) Mother Family history of malignant neoplasm of breast in first degree relative Breast cancer Father Acute myocardial infarction Hypertension Heart disease Other Diabetes mellitus Maternal Unkle Other Family history of malignant neoplasm Social History Social History Social History: Surrogate decision maker: : Myra Worley 1st Marnie Felix, Aunt 2nd Code status: Full code Patient lives with his and son. He mentioned that his is battling stage 4 cancer. They have four children, which his youngest just graduated from [employer] and 2 of his daughters are striving to become MDs. Smoking packs per day: 1 Smoking cigarettes per day: 20.0 Years smoked: 30 Smoking pack-years: 30.00 Smoking status: Former smoker Tobacco type: cigarettes Second
[2021-04-15] MEDS: FERROUS SULFATE 324 MG TABLET PO (16:27)
[2021-04-16] MEDS: MORPHINE SULFATE (*CRX) 4 MG/ML INJ IV PUSH ×5 (02:26→11:59)
[2021-04-16 04:57] VITALS: BP 162/89; PULSE 100; RESP 22; TEMP 36.2; O2SAT 94
[2021-04-16 05:45] LABS: Basophils Percent Auto 0.9 % (0.2-1.2); Eosinophils Absolute Auto 0.1 K/mm3 (0-0.3); Eosinophils Percent Auto 2.3 % (0-4.4); Hematocrit 31.6 % (42.0-52.0); Immature Granulocyte Absolute 0.01 K/mm3 (0.00-0.031); Immature Granulocyte Percent A 0.2 % (0-0.5); Lymphocytes Absolute Auto 1.06 K/mm3 (0.9-3.2); Lymphocytes Percent Auto 23.9 % (18.3-44.2); Mean Corpuscular HGB Conc 28.5 g/dl (32-36); Mean Corpuscular Hemoglobin 22.8 pg (26-34); Mean Corpuscular Volume 80.2 fl (80-100); Mean Platelet Volume 10.3 fl (7.4-10.4); Monocytes Absolute Auto 0.7 K/mm3 (0.1-0.6); Monocytes Percent Auto 15.1 % (2.6-8.5); Neutrophils Absolute Auto 2.6 K/mm3 (1.3-6.7); Neutrophils Percent Auto 57.6 % (45.5-73.1); Platelet Count Result 137 k/mm3 (150-375); Red Blood Count 3.94 M/mm3 (4.6-6.20); White Blood Count 4.4 K/mm3 (4.5-10.0)
[2021-04-16 05:54] LABS: Alanine Aminotransferase 9 U/L (4-50); Alkaline Phosphatase 125 U/L (38-126); Anion Gap 6 mmol/L (8-16); Aspartate Amino Transferase 34 U/L (17-59); Bilirubin,Total 0.7 mg/dL (0.2-1.3); Blood Urea Nitrogen 16 mg/dL (9-20); Calcium 9.2 mg/dL (8.4-10.2); Carbon Dioxide 32 mmol/L (22-30); Chloride 96 mmol/L (98-107); Estimated CRCL calculation 96 ml/min; Estimated Glomerular Filt Rate > 60; Glucose 144 mg/dL (65-110); Magnesium 1.8 mg/dL (1.6-2.3); Potassium 3.8 mmol/L (3.4-5.0); Sodium 134 mmol/L (137-145)
[2021-04-16] MEDS: FUROSEMIDE INJ 40 MG/4 ML VIAL IV PUSH (08:29)
[2021-04-16] MEDS: FERROUS SULFATE 324 MG TABLET PO (08:29)
--- NOTE | 2021-04-16 09:46 | PM.DS ---
DS: Admitting Diagnosis Discharge Date Date of service 04/16/2021 at 9:46 a.m. Admitting Diagnosis Fluid overload DS: Discharge Diagnosis Discharge Diagnosis (1) Cirrhosis of liver with ascites: Code(s): K74.60 - Unspecified cirrhosis of liver; R18.8 - Other ascites Status: Chronic Assessment and Plan: Ridged abdomen with positive fluid wave Liver enzymes are normal Will see a liver specialist May 14 Has received therapeutic Paracentesis in the past Therapeutic Paracentesis ordered Trend labs Strict I/Os (2) Chronic anemia: Code(s): D64.9 - Anemia, unspecified Status: Acute Assessment and Plan: H/H stable 9.3/31.6 Trend labs Transfuse when <7.0 Anemia labs 03/21/21: iron 37, TIBC 434, %sat 9, Ferritin 8.65 Continue home iron 324 PO BID, Colace 100mg PO BID to fight constipation (3) CHF (congestive heart failure): Code(s): I50.9 - Heart failure, unspecified Status: Acute Assessment and Plan: BNP 1820 Echo from 08/2020 showed systolic dysfunction Repeat echo showed diastolic dysfunction I would think that this could be acute on chronic diastolic CHF exacerbation Lasix 40mg IV BID Trend labs Chest xray: mild pulmonary edema versus atelectasis, enlarged cardiac silhouette likely combination of clinically and pericardial effusion. Strict I/O Echo can also rule out pericardial effusion (4) Hypertension: Code(s): I10 - Essential (primary) hypertension Status: Chronic Assessment and Plan: Current BP 162/86 Could be related to fluid overload Hold off on medications until after paracentesis Might need to add some amlodipine for better control. DS: Summary Hospital Course Hospital Course: Patient is a 51-year-old male with a past medical history of anemia, fluid overload, ascites, cirrhosis of liver who came to the emergency room for shortness of breath. Patient stated that it was starting to get really hard for him to breathe and he could not talk. He was being on the dresser to get his 's attention and saw that he was struggling and brought him into the hospital. Upon admission patient did have a elevated BNP of greater than 1800. Patient went for paracentesis yesterday which they removed 800 mL of fluid off. Patient is also receiving IV Lasix twice a day for further diuresis. Patient also is having pain with palpitation and his legs are tumbler tender. He is saying that he is feeling lot better today and he is ready to go home. He is also worried about fluid overload again. Talked to patient about weighing himself every day. Labs have remained normal throughout his visit. H&H 9.3/31.6 today. Electrolytes including kidney function has remained stable as well. Patient will need to follow up with a liver specialist as Kelly Edgar which he has an appointment on May 14. I did talk to the patient about the importance of going to these appointments he stated he has not canceled anything in that he is waiting to go. Patient denies chest pain, shortness of breath, nausea, vomiting, sweats, fevers, chills. Patient did state that he was having a little bit issues with the insertion site. He stated that the pain is not normal and that it was necessary for them to stick him twice to perform a paracentesis. I also talked to the patient about a standing order for paracentesis whenever he feels short of breath or tight. Patient verbalized understanding and is aware of the current plan of care. Status at Discharge Functional status at discharge: independent ambulation Overall status at discharge: patient is back to baseline Time Spent with Patient Time attestation: Total time spent providing and/or coordinating discharge services:48 minutes Time spent: Greater than 30 minutes Exam Const: General: cooperative, healthy appearing, well developed, alert, awake, in distress and uncomfortable Nutri
[2021-04-16] MEDS: lisinopriL 5 MG TABLET PO (11:21)
== END 2021-04-16 14:04 | disposition home or self-care (01) ==
LOC: ANHED 04:54 → ANH2MED 05:34
PROVIDERS: Nurse Practitioner; Admitting Provider Internal Medicine; Emergency Provider Emergency Medicine; PCP Physician Assistant; Visit Provider Internal Medicine
DX: K74.60 Unspecified cirrhosis of liver (principal); R18.8 Other ascites; R06.02 Shortness of breath; D64.9 Anemia, unspecified; I11.0 Hypertensive heart disease with heart failure; I50.9 Heart failure, unspecified; Z87.891 Personal history of nicotine dependence
CPT/HCPCS: 36415; 49083; 71046; 80053; 83690; 83735; 83880; 85025; 85610; 85730; 93306; 96374; 96375; 96376; 99285; A9270; G0378; G0379; J1170; J1940; J2270

== ENCOUNTER 2021-05-13 09:05 | Emergency (ER) | payer OTHER, SELFPAY ==
--- NOTE | ~2021-05-13 | US_ITS ---
EXAMINATION: US paracentesis abd w/image DATE: 05/13/2021 12:17 INDICATION: Ascites. TECHNIQUE: The procedure and its risks and benefits were discussed with the patient. Potential risks discussed included bleeding and infection. The skin was prepped and draped in sterile fashion. 1% lid ocaine was used for local anesthesia. Under ultrasound guidance, a 5 Fr catheter with trochar was adv anced into the ascites in the right lower quadrant. Fluid was aspirated into vacuum bottles. The cath eter was removed, and a dressing was applied. There were no immediate complications. FINDINGS: Ultrasound images demonstrate ascites and the catheter within the fluid. IMPRESSION: 1. Successful ultrasound-guided paracentesis yielding 900 mL of slightly cloudy yellow fluid. Reviewed, dictated and finalized at location A. [facility] IMPRESSION: 1. Successful ultrasound-guided paracentesis yielding 900 mL of slightly cloud y yellow fluid.
[2021-05-13 09:05] VITALS: BP 172/109; PULSE 103; RESP 16; TEMP 36.6; O2SAT 100
--- NOTE | 2021-05-13 09:14 | ECG_ITS ---
Measurements Intervals [place] Rate: 101 P: 52 NE: 167 QRS: 64 QRSD: 83 T: 51 QT: 368 QTc: 478 Interpretive Statements SINUS TACHYCARDIA INCOMPLETE RIGHT BUNDLE BRANCH BLOCK BORDERLINE ECG Electronically Signed On 05-13-2021 10:36:56 [facility] by Og Brown D.O.
[2021-05-13 09:31] VITALS: BP 166/95; PULSE 99; RESP 24; O2SAT 99
[2021-05-13 09:49] LABS: Basophils Percent Auto 0.2 % (0.2-1.2); Eosinophils Percent Auto 0.6 % (0-4.4); Hematocrit 29.1 % (42.0-52.0); Hemoglobin 8.2 g/dL (14.0-18.0); Immature Granulocyte Absolute 0.01 K/mm3 (0.00-0.031); Immature Granulocyte Percent A 0.2 % (0-0.5); Immature Platelet Fraction Pct 7.6 % (0.9-11.2); Lymphocytes Absolute Auto 0.62 K/mm3 (0.9-3.2); Lymphocytes Percent Auto 12.9 % (18.3-44.2); Mean Corpuscular HGB Conc 28.2 g/dl (32-36); Mean Corpuscular Hemoglobin 21.8 pg (26-34); Mean Corpuscular Volume 77.2 fl (80-100); Monocytes Absolute Auto 0.5 K/mm3 (0.1-0.6); Monocytes Percent Auto 10.6 % (2.6-8.5); Neutrophils Absolute Auto 3.6 K/mm3 (1.3-6.7); Neutrophils Percent Auto 75.5 % (45.5-73.1); Platelet Count Result 108 k/mm3 (150-375); Red Blood Count 3.77 M/mm3 (4.6-6.20); Red Cell Distribution Width 18.1 % (11.5-14.5); White Blood Count 4.8 K/mm3 (4.5-10.0)
[2021-05-13 09:53] LABS: Alanine Aminotransferase 11 U/L (4-50); Albumin Level 4.2 g/dL (3.5-5.1); Alkaline Phosphatase 128 U/L (38-126); Anion Gap 7 mmol/L (8-16); Aspartate Amino Transferase 27 U/L (17-59); Bilirubin,Total 0.8 mg/dL (0.2-1.3); Blood Urea Nitrogen 15 mg/dL (9-20); Calcium 9.2 mg/dL (8.4-10.2); Carbon Dioxide 26 mmol/L (22-30); Chloride 98 mmol/L (98-107); Estimated CRCL calculation 98 ml/min; Estimated Glomerular Filt Rate > 60; Glucose 203 mg/dL (65-110); Potassium 4.3 mmol/L (3.4-5.0); Sodium 131 mmol/L (137-145)
[2021-05-13 10:01] VITALS: BP 175/100; PULSE 98; RESP 24; O2SAT 100
[2021-05-13 10:07] LABS: INR 1.1; Prothrombin Time 14.1 Seconds (11.1-14.7)
[2021-05-13 10:08] LABS: Partial Thromboplastin Time 29.6 SECONDS (22.3-36.8)
--- NOTE | 2021-05-13 10:24 | ED.GENADULT ---
HPI - General Adult General Chief complaint: GI Bleed Stated complaint: abd pain, N/V -adb distended Time Seen by Provider: 05/13/21 10:22 Source: patient Limitations: no limitations History of Present Illness HPI narrative: 51 years old white male presents with abdominal pain, vomiting blood, passing blood per rectum started yesterday. Patient have only 2 bowel movements since yesterday. History of liver cirrhosis with ascites. Patient denied any smoking, drinking or using drugs. Related Data Allergies Allergy/AdvReac Type Severity Reaction Status Date / Time No Known Allergies Allergy Verified 04/15/21 02:43 Review of Systems Review of Systems: CONSTITUTIONAL: Denies fever, chills, or sweats. EYES: Denies visual changes, redness, or discharge. ENT: Denies rhinorrhea, congestion, sore throat, or otalgia. CARDIOVASCULAR: Denies chest pain, palpitations, or edema. RESPIRATORY: Denies cough or dyspnea. GASTROINTESTINAL: Denies abdominal pain, nausea, vomiting, or diarrhea. GENITOURINARY: Denies dysuria or hematuria. SKIN: Denies rash or itching. MUSCULOSKELETAL: Denies back pain, joint pain, or myalgia. NEUROLOGIC: Denies headache, numbness, or weakness. PSYCHIATRIC: Denies anxiety or depression. [facility] Past Medical History Medical History Arthritis Chronic anemia Cirrhosis of liver with ascites CVA (cerebral vascular accident) 2004 Gastric ulcer Gastroesophageal reflux disease History of kidney stones Hypertension Pericardial effusion Noted on CT and echocardiogram in August 2020. No evidence of tamponade. Portal hypertensive gastropathy Noted on endoscopy on 03/23/[address] Duran. Prostate cancer Status post radiation seed implantation. Prostate tumor Smoker Spontaneous bacterial peritonitis (04/2020) Testicular cancer Tobacco use Surgical History Surgical History History of appendectomy History of cholecystectomy History of inguinal hernia repair History of lithotripsy History of repair of right rotator cuff History of testicular surgery benign. Family History Family History Mother Family history of malignant neoplasm of breast in first degree relative Breast cancer Father Acute myocardial infarction Hypertension Heart disease Other Diabetes mellitus Maternal Unkle Other Family history of malignant neoplasm Social History Social History Social History: Surrogate decision maker: : Myra Worley 1st Marnie Washington, Aunt 2nd Code status: Full code Patient lives with his and son. He mentioned that his is battling stage 4 cancer. They have four children, which his youngest just graduated from [employer] and 2 of his daughters are striving to become MDs. 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 Gender identity (if verbalized by the patient): Male Sexual Orientation (if Verbalized by the Patient): Straight or Heterosexual Spiritual care concerns: No Agree to blood products: Yes Exam Narrative: General appearance: Well-developed, well-nourished Skin: Normal color Head: Normocephalic, nontraumatic Eyes: Clear conjunctiva ENT: Oropharynx normal, ears normal, nose normal Neck: Supple, nontender Chest and respiratory: Airway patent, no respiratory distress, no accessory muscle use Heart: Reg
[2021-05-13 11:09] LABS: Ammonia < 9 umol/L (9-30)
[2021-05-13 11:16] VITALS: BP 163/100; PULSE 96; RESP 22; O2SAT 100
[2021-05-13 11:30] VITALS: BP 156/96; PULSE 99; RESP 16; O2SAT 100
[2021-05-13 12:33] LABS: Hemoglobin 8.2 g/dL (14.0-18.0)
[2021-05-13 12:50] VITALS: BP 145/84; PULSE 100; RESP 16; O2SAT 100
== END 2021-05-13 12:50 | disposition home or self-care (01) ==
PROVIDERS: Emergency Provider Emergency Medicine; PCP Physician Assistant
DX: K74.60 Unspecified cirrhosis of liver (principal); K70.11 Alcoholic hepatitis with ascites; K92.2 Gastrointestinal hemorrhage, unspecified; K21.9 Gastro-esophageal reflux disease without esophagitis; I10 Essential (primary) hypertension; D64.9 Anemia, unspecified; K76.6 Portal hypertension; K31.89 Other diseases of stomach and duodenum; M19.90 Unspecified osteoarthritis, unspecified site; Z86.73 Personal history of transient ischemic attack (TIA), and cerebral infarction without residual deficits; Z85.46 Personal history of malignant neoplasm of prostate; Z87.442 Personal history of urinary calculi; Z87.891 Personal history of nicotine dependence; R00.0 Tachycardia, unspecified; I45.10 Unspecified right bundle-branch block
CPT/HCPCS: 36415; 49083; 80053; 82140; 85014; 85018; 85025; 85055; 85610; 85730; 86850; 86900; 86901; 93005; 99284

== ENCOUNTER 2021-05-27 01:04 | Emergency (ER) | payer OTHER, SELFPAY ==
[2021-05-27] VITALS (55 sets, daily range): BP systolic 136–168; BP diastolic 77–105; PULSE 96–115; RESP 14–28; TEMP 36.3–36.7; O2SAT 90–100
--- NOTE | ~2021-05-27 | US_ITS ---
EXAMINATION: US abdomen limited EXAM DATE: 05/27/2021 14:56 INDICATION: Tense ascites. TECHNIQUE: Multiple grayscale and Doppler images of the abdomen were obtained (by a technologist who performed the scan) and subsequently reviewed. FINDINGS: Scanning in all 4 quadrants demonstrated only very small pocket of left lower quadrant flui d, not enough to perform paracentesis. IMPRESSION: Trace ascites, paracentesis canceled. Reviewed, dictated and finalized at location B. ATOR CAVITY PUMP
--- NOTE | ~2021-05-27 | CT_ITS ---
EXAMINATION: CT chest abdomen pelvis w con DATE: 05/27/2021 17:03 ADULT BASIC EDUCATION MANAGER INDICATION: Ascites. Abdomen pain. TECHNIQUE: Computed tomography (CT) of the chest, abdomen, and pelvis was performed with 100 cc Omnip aque 350 intravenous contrast. The dose-length product was 843.94 mGy-cm. Automated exposure control and iterative reconstruction technique were employed. COMPARISON: CT dated 02/21/2021 FINDINGS: CHEST CT: Large pericardial effusion. Cardiomegaly. No evidence for aortic aneurysm or dissection. Small hiatal hernia. There is mediastinal lymphadenopathy, likely reactive. No significant pleural effusion. Ther e is interlobular septal thickening of the upper lobes, possibly chronic interstitial lung disease. N o endobronchial lesions. No pneumothorax. No endobronchial lesions. No suspicious pulmonary nodules/m asses. Mild emphysema. ABDOMEN/PELVIS CT: There is cirrhosis of the liver. There is a small amount of ascites. There is splenomegaly. There is mild diffuse small bowel wall thickening with enhancement, suspicious for enteritis. No obstruction. Chronic diverticulosis without evidence for diverticulitis. No free air. Stable lytic lesion of the l eft ilium, likely benign. There are multiple chronic wedge compression fractures of the lower thoraci c spine, unchanged. Mild lumbar spondylosis. IMPRESSION: 1. Large pericardial effusion with cardiomegaly. 2: Mild interstitial lung disease peripherally of the upper lobes, possibly chronic. 3: Mild mediastinal lymphadenopathy, likely reactive. 4: Cirrhosis of the liver with ascites. 5: Splenomegaly. 6: Mild diffuse small bowel wall thickening with mucosal enhancement, suspicious for enteritis. Reviewed, dictated and finalized at location A. T BASIC EDUCATION MANAGER IMPRESSION: 1. Large pericardial effusion with cardiomegaly. 2: Mild interstitial lung disease peripherally of the upper lobes, possibly chr onic. 3: Mild mediastinal lymphadenopathy, likely reactive. 4: Cirrhosis of the liver with ascites. 5: Splenomegaly. 6: Mild diffuse small bowel wall thickening with mucosal enhancement, suspiciou s for enteritis.
--- NOTE | 2021-05-27 01:26 | ED.GENADULT ---
HPI - General Adult General Chief complaint: Unspecified Stated complaint: FLUID ON ABD, DISTENTION - ROCK HARD Time Seen by Provider: 05/27/21 01:21 History of Present Illness HPI narrative: Patient 51-year-old gentleman who presents the emergency department with chief complaint of abdominal distention. The patient has history of cirrhosis and has had multiple large-volume paracentesis's. The patient states that he started seeing a new systems developer at [facility] and states that in the last 24 hours his abdomen has become full and firm. The patient states it hurts whenever he breathes reports that if not improved by anything. The patient denies fever denies chills denies change in mental status. Patient reports this feels like whenever he requires a large volume paracentesis Related Data Home Medications Medication Instructions Recorded Confirmed carvedilol 05/27/21 ciprofloxacin HCl 05/27/21 omeprazole 05/27/21 Allergies Allergy/AdvReac Type Severity Reaction Status Date / Time No Known Allergies Allergy Verified 05/27/21 01:10 Review of Systems Review of Systems: A 10 system review of systems was completed on the patient and is negative except for what is stated in the HPI. Nursing and ancillary documentation was reviewed. [facility] Past Medical History Medical History Arthritis Chronic anemia Cirrhosis of liver with ascites CVA (cerebral vascular accident) 2004 Gastric ulcer Gastroesophageal reflux disease History of kidney stones Hypertension Pericardial effusion Noted on CT and echocardiogram in August 2020. No evidence of tamponade. Portal hypertensive gastropathy Noted on endoscopy on 03/23/[address] Duran. Prostate cancer Status post radiation seed implantation. Prostate tumor Smoker Spontaneous bacterial peritonitis (04/2020) Testicular cancer Tobacco use Surgical History Surgical History History of appendectomy History of cholecystectomy History of inguinal hernia repair History of lithotripsy History of repair of right rotator cuff History of testicular surgery benign. Family History Family History Mother Family history of malignant neoplasm of breast in first degree relative Breast cancer Father Acute myocardial infarction Hypertension Heart disease Other Diabetes mellitus Maternal Unkle Other Family history of malignant neoplasm Social History Social History Social History: Surrogate decision maker: : Myra Worley 1st Marnie Washington, Aunt 2nd Code status: Full code Patient lives with his and son. He mentioned that his is battling stage 4 cancer. They have four children, which his youngest just graduated from [employer] and 2 of his daughters are striving to become MDs. 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 Gender identity (if verbalized by the patient): Male Sexual Orientation (if Verbalized by the Patient): Straight or Heterosexual Spiritual care concerns: No Agree to blood products: Yes Exam Narrative: GENERAL: Well-appearing, well-nourished, and in no acute distress. HEAD: Normocephalic, atraumatic. EYES: PERRLA and EOMI. ENT: Nares clear, no rhinorrhea or epistaxis. Mucous membranes moist. NECK: Supple. CHEST: Clear to a
[2021-05-27] MEDS: HYDROmorphone HCL INJ (*CRX) 1 MG/ML SYR IV PUSH (01:38)
[2021-05-27 02:12] LABS: Basophils Percent Auto 0.5 % (0.2-1.2); Eosinophils Absolute Auto 0.1 K/mm3 (0-0.3); Eosinophils Percent Auto 1.9 % (0-4.4); Hematocrit 29.8 % (42.0-52.0); Hemoglobin 8.1 g/dL (14.0-18.0); Immature Granulocyte Absolute 0.01 K/mm3 (0.00-0.031); Immature Granulocyte Percent A 0.3 % (0-0.5); Immature Platelet Fraction Pct 8.8 % (0.9-11.2); Lymphocytes Absolute Auto 0.86 K/mm3 (0.9-3.2); Lymphocytes Percent Auto 22.8 % (18.3-44.2); Mean Corpuscular HGB Conc 27.2 g/dl (32-36); Mean Corpuscular Hemoglobin 21.1 pg (26-34); Mean Corpuscular Volume 77.6 fl (80-100); Mean Platelet Volume 10.2 fl (7.4-10.4); Monocytes Absolute Auto 0.5 K/mm3 (0.1-0.6); Neutrophils Absolute Auto 2.3 K/mm3 (1.3-6.7); Neutrophils Percent Auto 60.5 % (45.5-73.1); Platelet Count Result 126 k/mm3 (150-375); Red Blood Count 3.84 M/mm3 (4.6-6.20); Red Cell Distribution Width 17.3 % (11.5-14.5); White Blood Count 3.8 K/mm3 (4.5-10.0)
[2021-05-27 02:21] LABS: Alanine Aminotransferase 14 U/L (4-50); Alkaline Phosphatase 141 U/L (38-126); Anion Gap 11 mmol/L (8-16); Aspartate Amino Transferase 26 U/L (17-59); Bilirubin,Total 0.4 mg/dL (0.2-1.3); Blood Urea Nitrogen 15 mg/dL (9-20); Calcium 8.7 mg/dL (8.4-10.2); Carbon Dioxide 20 mmol/L (22-30); Chloride 101 mmol/L (98-107); Estimated CRCL calculation 99 ml/min; Estimated Glomerular Filt Rate > 60; Glucose 383 mg/dL (65-110); Lactic Acid Reflex 3.1 mmol/L (0.7-2.1); Lipase 109 U/L (23-300); Potassium 3.9 mmol/L (3.4-5.0); Sodium 132 mmol/L (137-145)
[2021-05-27 02:30] LABS: Partial Thromboplastin Time 32.3 SECONDS (22.3-36.8); Prothrombin Time 13.5 Seconds (11.1-14.7)
[2021-05-27 02:34] LABS: Anisocytosis 1+ (NORMAL); Hypochromasia 1+ (NORMAL); Platelet Estimate Decreased (Adequate)
--- NOTE | 2021-05-27 02:57 | PC.NURSE ---
Patient states pain is back and requesting more pain medication. ERP notified.
--- NOTE | 2021-05-27 03:56 | PC.NURSE ---
Hospitalist in room with patient at this time.
--- NOTE | 2021-05-27 04:19 | PM.IMHP ---
H&P: HPI History of Present Illness Date/Time: 05/27/21 04:19 Chief Complaint: SHORTNESS OF BREATH Narrative: This is a 51-year-old male with past medical history significant for hepatic cirrhosis, portal hypertension, tension ascites, multiple paracentesis in the past, former alcohol user, tobacco dependence. Patient presents today to the emergency room due to acute onset shortness of breath patient states that he has been in his usual state of health ever since been discharged from prior admission to [place] on this hospital he followed up with apn specialist at [facility]. And over the weekend he was just fine when he woke up in the middle of the night with sudden onset of shortness of breath and distended abdomen. Patient denies any fevers rigors or chills any nausea vomiting or diarrhea he is states that his abdomen is overly distended and has pain diffusely to both flanks. Patient drank alcohol for his 51th birthday but did denies any alcohol intake recently. Patient has had some dry cough spells denies any chest pain however noticed that he has ankle edema. Preliminary workup is significant for including distended abdomen on physical exam. Decision has been made to admit the patient for further management and treatment and therapeutic paracentesis by Interventional Radiology under fluoroscopy guided procedure. Review of Systems Review of Systems: Abdominal distension abdominal pain shortness of breath ankle edema dry cough spells early satiety Constitutional: Constitutional: Denies chills, Denies fever(s), Denies malaise, Reports poor appetite and Denies weakness Eyes: Eyes: Denies change in vision ENT: Denies dysphagia, Denies vertigo, Denies dizziness, Denies nasal congestion, Denies nasal discharge, Denies nasal obstruction and Denies odynophagia Cardiovascular: Cardiovascular: Reports chest pain with activity, Reports pedal edema, Denies irregular heart rhythm, Reports leg edema, Denies lightheadedness, Denies radiating jaw, neck or arm pain, Denies palpitations, Reports dyspnea and Reports orthopnea Respiratory: Respiratory: Reports cough and Denies excessive phlegm production Gastrointestinal: Gastrointestinal: Reports abdominal pain, Denies dyspepsia, Denies heartburn, Denies nausea and Denies vomiting Genitourinary: Genitourinary: Denies dysuria Musculoskeletal: Musculoskeletal: Denies arthralgias and Denies joint swelling Integumentary/Breasts: Skin/Breast: Denies rash Neurologic: Denies focal weakness and Denies Sensory deficit (Neuro) Psychiatric: Psychiatric: Reports no additional psychiatric complaints and Reports as per HPI Endocrine: Endocrine: Denies polyphagia, Denies polydipsia, Denies polyuria and Denies palpitations Hematologic/Lymphatic: Hematologic/Lymphatic: Reports no additional hematologic/lymphatic complaints and Reports as per HPI Allergic/Immunologic: Allergic/Immunologic: Reports no additional allergic/immunologic complaints and Reports as per HPI [facility] Past Medical History Medical History Arthritis Chronic anemia Cirrhosis of liver with ascites CVA (cerebral vascular accident) 2004 Gastric ulcer Gastroesophageal reflux disease History of kidney stones Hypertension Pericardial effusion Noted on CT and echocardiogram in August 2020. No evidence of tamponade. Portal hypertensive gastropathy Noted on endoscopy on 03/23/[address] Duran. Prostate cancer Status post radiation seed implantation. Prostate tumor Smoker Spontaneous bacterial peritonitis (04/2020) Testicular cancer Tobacco use Surgical History Surgical History History of appendectomy History of cholecystectomy History of inguinal hernia repair History of lithotripsy History of repair of right rotator cuff History of testicular surgery benign. Family History Family History (Reviewed 05/27/21 @ 01:27 by Xu Laguna
--- NOTE | 2021-05-27 04:34 | PC.NURSE ---
Patient calls this nurse into room to state he is in pain and that this is ridiculous, I am in pain and have been ever since I came here. If I am just going to sit in here and be in pain, I can go to another hospital. I am in pain and I need something. This hurts. I have been in here before and gotten pain medication more often than this. I have been in here for more than 4hours and the doctor stated I can have it every 4 hours. This nurse informed patient that it has been 3hours and 28 minutes and the medication was given at 0138 and is not due until 4 hours from that time meaning 0538. Patient requested to speak to charge out clerk or doctor about situation. This nurse informed five piece expansion maker hand.
--- NOTE | 2021-05-27 04:41 | PC.NURSE ---
RAMIRO DE LA TORRE FOR TORADOL 15MG IVP.
[2021-05-27] MEDS: KETOROLAC 15 MG/ML VIAL (*BKC) IV PUSH (05:02)
[2021-05-27 05:08] LABS: Reflex Lactic Acid Yes or No Add Lactic
--- NOTE | 2021-05-27 05:10 | PC.NURSE ---
When this nurse went into patients room to administer new order of Toradol 15mg IVP once, patient states I put in a call for this hospitals administration. This is ridiculous. I am in pain, the goal is to have the pain under control, not allow it to become out of control. That is simple patient care. 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 I know that even smaller doses of pain medication more often, like every 2 hours is more effective than larger ones every 4 hours. I don't think you understand what you are doing to me. I don't think the doctor knows what he is doing to me, this is ridiculous. I am in pain and this is getting ridiculous. The toradol is not going to work. This nurse asked the patient do you still want the toradol, that is what was ordered by the hospitalist who took over care. The patient stated Yeah, I will still take it even though it is not going to help. But just letting you know that I do have a call to the administration in regards to this, because this is ridiculous. This nurse informed patient that the next dose of dilaudid is not able to give until at least 0538. The patient stated well, the pain will be out of control at that time. physicist solid state aware.
--- NOTE | 2021-05-27 05:39 | PC.NURSE ---
Patient requested ice chips, this nurse informed patient that he is NPO for his procedure in the morning. Patient stated I have been NPO before and able to have ice chips. This is ridiculous. I can have ice chip. I am waiting for the hospital administration to call back. This nurse informed patient that he is NPO and that is the provider orders. Patient then got up off the stretcher and closed his door.
[2021-05-27] MEDS: HYDROmorphone HCL INJ (*CRX) 1 MG/ML SYR 0.5 MG IV PUSH ×4 (05:45→17:17)
[2021-05-27 06:22] LABS: Lactic Acid 1.1 mmol/L (0.7-2.1)
--- NOTE | 2021-05-27 11:40 | PM.DS ---
DS: Admitting Diagnosis Discharge Date Date of Service 05/27/21 1140am Admitting Diagnosis SOB/pericardial effusion DS: Discharge Diagnosis Discharge Diagnosis (1) Tense ascites: Code(s): R18.8 - Other ascites Status: Inactive Assessment and Plan: Admit to regular medical floor IR paracentesis guided under fluoroscopy Supportive care (2) Esophageal varices: Code(s): I85.00 - Esophageal varices without bleeding Status: Acute Assessment and Plan: No recent bleeding Continue to monitor (3) Decompensation of cirrhosis of liver: Code(s): K72.90 - Hepatic failure, unspecified without coma; K74.60 - Unspecified cirrhosis of liver Status: Acute Assessment and Plan: Restart home meds Continue to monitor Follows up with hepatology at [facility] (4) Gastroesophageal reflux disease: Code(s): K21.9 - Gastro-esophageal reflux disease without esophagitis Status: Acute Assessment and Plan: Continue PPI (5) Chronic anemia: Code(s): D64.9 - Anemia, unspecified Status: Acute Assessment and Plan: Likely secondary to chronic disease Transfuse as needed (6) Tobacco dependence: Code(s): F17.200 - Nicotine dependence, unspecified, uncomplicated Status: Acute Assessment and Plan: Nicotine patch as needed. DS: Summary Hospital Course Hospital Course: Patient is a 51-year-old male with a past medical history of hypertension, anemia, GERD, hepatic cirrhosis who presented to the ED for evaluation of shortness of breath. Patient stated that he has had no issues since he was discharged a little over a month ago. Patient stated however he did have pizza about 2 days ago containing sausage and pepperoni. Patient last had a paracentesis about a month ago. Re-educated patient about the need to come in every 2 weeks for paracentesis even if it does not seem that he would need one. Patient is also trying to switch primary care providers. Patient did follow-up with a specialist at [facility] however they were unable to do procedures as needed due to cardiac function. Patient stated he has not had any issues with his ascites however did come on 24 to 48 hours ago. Patient is also having pain which he rated 10/10. Patient does feel better at this time. Patient is going down for a paracentesis, however, ultrasound did not show any need for paracentesis at this time. life educator and sql server developer were also consulted for further management of new onset diabetes. CT of the chest and abdomen were done to figure of other causes for the patient's shortness of breath or abdominal pain. Received a call from nursing around [address] showed large pericardial effusion. Wanted patient to be seen by cardiology since his pericardial effusion increased in size. Patient could also be having some sleep apnea, and probably would benefit from an apnea link. At 1800 received a call from Romi BORRERO about DC, his CT results was also reviewed by Romi BORRERO. Patient was not willing to stay for a further work up and decided to leave AMA. Was in contact with Romi BORRERO about the patient, who also reviewed the CT and thought that a further workup could benefit the patient. Patient left around 0300 AMA. Will set patient up with the wellness center and also included cardiology on DC paperwork for further follow up at his convenience for the increasing pericardial effusion. Status at Discharge Functional status at discharge: independent ambulation Overall status at discharge: patient is progressing back to baseline Time Spent with Patient Time attestation: Total time spent providing and/or coordinating discharge services: 48 minutes Time spent: Greater than 30 minutes Exam Const: General: cooperative, comfortable, no acute distress, well developed, alert, awake and ill appearing chronically Nutritional Appearance: average body habitus Orientation/con
[2021-05-27 12:36] LABS: Hemoglobin A1C 6.6 % (<5.7)
--- NOTE | 2021-05-27 14:59 | P.PNIM_ITS ---
Progress Note: A&P Assessment and Plan (1) Tense ascites: Code(s): R18.8 - Other ascites Status: Acute Assessment and Plan: * Admit to regular medical floor * IR paracentesis guided under fluoroscopy * Paracentesis showed no fluid that was able to be removed * Will obtain ct of chest abdomen and pelvis * Supportive care (2) Esophageal varices: Code(s): I85.00 - Esophageal varices without bleeding Status: Acute Assessment and Plan: * No recent bleeding * H/H stable .07/13.8 * Continue home ferrous sulfate * trend labs r (3) Decompensation of cirrhosis of liver: Code(s): K72.90 - Hepatic failure, unspecified without coma; K74.60 - Unspecified cirrhosis of liver Status: Acute Assessment and Plan: * Restart home meds * Continue to monitor * Follows up with hepatology at [facility] (4) Gastroesophageal reflux disease: Code(s): K21.9 - Gastro-esophageal reflux disease without esophagitis Status: Acute Assessment and Plan: * Continue PPI (5) Chronic anemia: Code(s): D64.9 - Anemia, unspecified Status: Acute Assessment and Plan: * Likely secondary to chronic disease * Transfuse as needed * H/H 8.07/13.8 * Continue ferrous sulfate * Trend H/H * No signs of bleeding (6) Tobacco dependence: Code(s): F17.200 - Nicotine dependence, unspecified, uncomplicated Status: Acute Assessment and Plan: Nicotine patch as needed. (7) Diabetes: Code(s): E11.9 - Type 2 diabetes mellitus without complications Status: Acute Assessment and Plan: * A1c 6.7 * Glucose 383 * clinical educator and finisher fine diamond dies consults ordered * Consider starting metformin * Trend glucose Time Spent With Patient Time with patient: Greater than 35 minutes Subjective Date/time seen: 05/27/21 11:40 Interval history: Date/Time: 05/27/21 04:19 Narrative: This is a 51-year-old male with past medical history significant for hepatic cirrhosis, portal hypertension, tension ascites, multiple paracentesis in the past, former alcohol user, tobacco dependence. Patient presents today to the emergency room due to acute onset shortness of breath patient states that he has been in his usual state of health ever since been discharged from prior ad mission to [place] on this hospital he followed up with air chief marshal specialist at [facility]. And over the weekend he was just fine when he woke up in the middle of the night with sudden onset of shortness of breath and distended abdomen. Patient denies any fevers rigors or chills any nausea vomiting or diarrhea he is states that his abdomen is overly distended and has pain diffusely to both flanks. Patient drank alcohol for his 51th birthday but did denies any alcohol intake recently. Patient has had some dry cough spells denies any chest pain however noticed that he has ankle edema. Preliminary workup is significant for including distended abdomen on physical exam. Decision has been made to admit the patient for further management and treatment and therapeutic paracentesis by Interventional Radiology under fluoroscopy guided procedure. Date/Time 05/27/21 1140 Patient is laying the stretcher. He stated that his called EMS because he was unable to breath, and was turning blue. He saw the liver specialist since discharge. His last paracentesis was about 1 month ago. He denies f
--- NOTE | 2021-05-27 14:59 | PM.IMPN ---
Progress Note: A&P Assessment and Plan (1) Tense ascites: Code(s): R18.8 - Other ascites Status: Acute Assessment and Plan: Admit to regular medical floor IR paracentesis guided under fluoroscopy Paracentesis showed no fluid that was able to be removed Will obtain ct of chest abdomen and pelvis Supportive care (2) Esophageal varices: Code(s): I85.00 - Esophageal varices without bleeding Status: Acute Assessment and Plan: No recent bleeding H/H stable .07/13.8 Continue home ferrous sulfate trend labs r (3) Decompensation of cirrhosis of liver: Code(s): K72.90 - Hepatic failure, unspecified without coma; K74.60 - Unspecified cirrhosis of liver Status: Acute Assessment and Plan: Restart home meds Continue to monitor Follows up with hepatology at [facility] (4) Gastroesophageal reflux disease: Code(s): K21.9 - Gastro-esophageal reflux disease without esophagitis Status: Acute Assessment and Plan: Continue PPI (5) Chronic anemia: Code(s): D64.9 - Anemia, unspecified Status: Acute Assessment and Plan: Likely secondary to chronic disease Transfuse as needed H/H .07/13.8 Continue ferrous sulfate Trend H/H No signs of bleeding (6) Tobacco dependence: Code(s): F17.200 - Nicotine dependence, unspecified, uncomplicated Status: Acute Assessment and Plan: Nicotine patch as needed. (7) Diabetes: Code(s): E11.9 - Type 2 diabetes mellitus without complications Status: Acute Assessment and Plan: A1c 6.7 Glucose 383 unit educator and senior data warehouse developer consults ordered Consider starting metformin Trend glucose Time Spent With Patient Time with patient: Greater than 35 minutes Subjective Date/time seen: 05/27/21 11:40 Interval history: Date/Time: 05/27/21 04:19 Narrative: This is a 51-year-old male with past medical history significant for hepatic cirrhosis, portal hypertension, tension ascites, multiple paracentesis in the past, former alcohol user, tobacco dependence. Patient presents today to the emergency room due to acute onset shortness of breath patient states that he has been in his usual state of health ever since been discharged from prior admission to [place] [facility] this hospital he followed up with dog raiser specialist at [facility]. And over the weekend he was just fine when he woke up in the middle of the night with sudden onset of shortness of breath and distended abdomen. Patient denies any fevers rigors or chills any nausea vomiting or diarrhea he is states that his abdomen is overly distended and has pain diffusely to both flanks. Patient drank alcohol for his 51th birthday but did denies any alcohol intake recently. Patient has had some dry cough spells denies any chest pain however noticed that he has ankle edema. Preliminary workup is significant for including distended abdomen on physical exam. Decision has been made to admit the patient for further management and treatment and therapeutic paracentesis by Interventional Radiology under fluoroscopy guided procedure. Date/Time 05/27/21 1140 Patient is laying the stretcher. He stated that his called EMS because he was unable to breath, and was turning blue. He saw the liver specialist since discharge. His last paracentesis was about 1 month ago. He denies falls He did state that he ate some pizza the other day with pepperoni and sausage on it. This is when the flare up started and brought him in today. His last BM was yesterday which he stated was good and normal. He does complain of abdominal pain 03/24. He did go for a paracentesis however it was reported that the he did not have any fluid to be drained. Urine is brown and dark. Review of Systems Review of Systems: All systems reviewed & are unremarkable except as noted in HP
--- NOTE | 2021-05-27 16:30 | PC.NURSE ---
Called and spoke with CT. They will come get pt next for imaging. RN to bedside to updated patient but pt was sleeping, did not wake him up. Even/unlabored respirations.
--- NOTE | 2021-05-27 18:45 | PC.NURSE ---
pt told this rn that he wasn't going to wait more than 20 minutes. pt told to let staff know if he was leaving so we could d/c IV.
--- NOTE | 2021-05-27 18:46 | PC.NURSE ---
This RN to room because patient upset and primary RN requesting assistance. Patient patience running thin because he was under the impression he was going to leave today and is concerned about his 7 y/o being at home with his . Patient reports he needs to diffuse the situation at my home . This RN told patient that Corinne is aware he wants to leave and she will be in his room as soon as she is available. This RN allowing patient to express frustration and nodding head sincerely and replying ok . Patient states, I'll just wait until Corinne gets here because you don't know anything. This RN informed patient that she would not engage in behavior.
--- NOTE | 2021-05-27 19:18 | PC.NURSE ---
This RN spoke with Rafi Bradford PRIMER SUPERVISOR after pt's CT resulted. RN was told to call him with results to confirm admission vs discharge orders depending on result. Per Sanchez, pt to be admitted due to CT findings. Pt was updated on plan for admission shortly after phone call. Pt upset because he planned on going home after the CT. Pt agitated stating that he has a 7 year old kid at home that he has to get home to and pt felt as if he was getting mixed information. RN apologized and told patient that admission would be to ensure that he is receiving thorough care related to his CT findings. Pt asked to speak with Corinne BORRERO who was here in the hospital. RN spoke with Corinne BORRERO and patient was told that she would be in as soon as she could to speak with him. After a short wait, pt became irritated and asked to leave AMA. Corinne BORRERO notified, charge account clerk notified, pt's IV was removed, and pt signed AMA paperwork with RN. Ambulatory upon discharge in [facility].
--- NOTE | 2021-05-28 00:54 | PCRCNOTE ---
Unable to do apnea link due to pt leaving AMA
--- NOTE | 2021-05-28 10:08 | PC.NURSE ---
Outpatient referral started for In[facility] DSMT and MNT. [facility]
== END 2021-05-27 19:18 | disposition left against medical advice (07) ==
LOC: ANHED 03:49 → ANH3MEDSUR 13:25
PROVIDERS: Nurse Practitioner; Emergency Provider Emergency Medicine; PCP Physician Assistant
DX: R18.8 Other ascites (principal); I85.00 Esophageal varices without bleeding; K74.60 Unspecified cirrhosis of liver; K72.90 Hepatic failure, unspecified without coma; K21.9 Gastro-esophageal reflux disease without esophagitis; D64.9 Anemia, unspecified; Z85.46 Personal history of malignant neoplasm of prostate; I51.7 Cardiomegaly; J84.9 Interstitial pulmonary disease, unspecified; R16.1 Splenomegaly, not elsewhere classified
CPT/HCPCS: 36415; 71260; 74177; 76705; 80053; 83036; 83605; 83690; 85025; 85055; 85610; 85730; 96374; 96375; 96376; 99284; J1170; J1885; Q9967

== ENCOUNTER 2021-06-13 13:08 | Emergency (ER) | payer OTHER, SELFPAY ==
--- NOTE | ~2021-06-13 | CT_ITS ---
EXAMINATION: CT abdomen pelvis w con INDICATION: Possible abdominal hernia rupture TECHNIQUE: Computed tomographic images of the abdomen and pelvis were obtained after the administrati on of 100 cc of Omnipaque 350 intravenous contrast. The dose-length product (DLP) was 801.92 mGy-cm. Automated exposure control and iterative reconstruction technique were employed. COMPARISON: 05/27/2021 FINDINGS: There is a moderate-sized pericardial effusion without significant change. The heart size i s normal. There is mild atelectasis of the visualized lung bases. There is nodularity of the liver saldaña rface. The spleen, pancreas, and adrenal glands are normal. There is a small volume of ascites. The k idneys are unremarkable. No pathologically enlarged abdominal or pelvic lymph nodes are identified. T here is mild lumbar spondylosis. There are unchanged compression fractures of the T11 and T12 vertebr al bodies. There is no free intraperitoneal gas or evidence of bowel obstruction. IMPRESSION: 1. No CT correlate for the patient's symptoms. 2. Moderate-sized pericardial effusion without significant change. 3. Cirrhosis. 4. Small volume of ascites. Reviewed, dictated and finalized at location F. T CHIEF
[2021-06-13 13:25] VITALS: BP 171/107; PULSE 101; RESP 18; TEMP 37.2; O2SAT 99
[2021-06-13 15:25] VITALS: BP 171/98; PULSE 100; RESP 18; TEMP 36.3; O2SAT 99
[2021-06-13 17:34] VITALS: BP 179/102; PULSE 89; RESP 12; O2SAT 100
--- NOTE | 2021-06-13 18:10 | ED.ABDPAIN ---
HPI - Abdominal Pain General Chief Complaint: Abdominal Pain Stated Complaint: ruptured hernia Time Seen by Provider: 06/13/21 18:00 Source: patient Mode of arrival: ambulatory History of Present Illness HPI narrative: Patient came to the emergency room because was told by his family physician nurse practitioner that possible abdominal hernia. Patient have history of liver cirrhosis with ascites, felt a pop at the mid of lower abdomen prior to going to see his family physician for regular checkup today and was told that he have abdominal hernia and need to go to the emergency room immediately. Patient denies any fever, chills, nausea, vomiting, diarrhea, constipation. Patient abdominal size is exactly as before, Related Data Home Medications Medication Instructions Recorded Confirmed carvedilol 6.25 mg PO Q12H 05/27/21 05/27/21 ciprofloxacin HCl 500 mg PO DAILY 05/27/21 05/27/21 furosemide 40 mg PO DAILY 05/27/21 05/27/21 omeprazole 10 mg PO DAILY 05/27/21 05/27/21 Allergies Allergy/AdvReac Type Severity Reaction Status Date / Time No Known Allergies Allergy Verified 06/13/21 17:37 Review of Systems Review of Systems: CONSTITUTIONAL: Denies fever, chills, or sweats. EYES: Denies visual changes, redness, or discharge. ENT: Denies rhinorrhea, congestion, sore throat, or otalgia. CARDIOVASCULAR: Denies chest pain, palpitations, or edema. RESPIRATORY: Denies cough or dyspnea. GASTROINTESTINAL: Denies abdominal pain, nausea, vomiting, or diarrhea. GENITOURINARY: Denies dysuria or hematuria. SKIN: Denies rash or itching. MUSCULOSKELETAL: Denies back pain, joint pain, or myalgia. NEUROLOGIC: Denies headache, numbness, or weakness. PSYCHIATRIC: Denies anxiety or depression. [facility] Past Medical History Medical History Arthritis Chronic anemia Cirrhosis of liver with ascites CVA (cerebral vascular accident) 2004 Gastric ulcer Gastroesophageal reflux disease History of kidney stones Hypertension Pericardial effusion Noted on CT and echocardiogram in August 2020. No evidence of tamponade. Portal hypertensive gastropathy Noted on endoscopy on 03/23/[address] Duran. Prostate cancer Status post radiation seed implantation. Prostate tumor Smoker Spontaneous bacterial peritonitis (04/2020) Testicular cancer Tobacco use Surgical History Surgical History History of appendectomy History of cholecystectomy History of inguinal hernia repair History of lithotripsy History of repair of right rotator cuff History of testicular surgery benign. Family History Family History Mother Family history of malignant neoplasm of breast in first degree relative Breast cancer Father Acute myocardial infarction Hypertension Heart disease Other Diabetes mellitus Maternal Unkle Other Family history of malignant neoplasm Social History Social History Social History: Surrogate decision maker: : Myra Worley 1st Marnie Washington, Aunt 2nd Code status: Full code Patient lives with his and son. He mentioned that his is battling stage 4 cancer. They have four children, which his youngest just graduated from [employer] and 2 of his daughters are striving to become MDs. 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 Gender identity (if verbalized
[2021-06-13] MEDS: ONDANSETRON INJ 4 MG/2 ML VIAL IV PUSH (18:12)
[2021-06-13] MEDS: MORPHINE SULFATE (*CRX) 4 MG/ML INJ IV PUSH (18:13)
[2021-06-13 18:14] VITALS: BP 167/95; PULSE 104; RESP 14; O2SAT 100
[2021-06-13 18:19] LABS: Add Urine Microscopic? YES; Appearance Urine Clear (Clear); Bilirubin Urine Negative (Negative); Blood Urine Negative (Negative); Color Urine Yellow (Yellow); Glucose Urine UA 3+ mg/dL (Negative); Ketones Urine Negative (Negative); Leukocyte Esterase Ur Negative LEU/UL (Negative); Nitrate Urine Negative (Negative); Protein Urine Negative (Negative); RBC Urine 0-2 /hpf (0-2); Specific Grav Ur 1.013 (1.001-1.035); Squamous Epithelial Cell Urine Rare /hpf (Few); Urobilinogen Urine Negative mg/dL (<2.0)
[2021-06-13 18:31] LABS: Basophils Percent Auto 0.5 % (0.2-1.2); Hematocrit 31.4 % (42.0-52.0); Hemoglobin 8.7 g/dL (14.0-18.0); Immature Granulocyte Absolute 0.02 K/mm3 (0.00-0.031); Immature Granulocyte Percent A 0.5 % (0-0.5); Immature Platelet Fraction Pct 8.9 % (0.9-11.2); Lymphocytes Absolute Auto 0.71 K/mm3 (0.9-3.2); Lymphocytes Percent Auto 18.3 % (18.3-44.2); Mean Corpuscular HGB Conc 27.7 g/dl (32-36); Mean Corpuscular Hemoglobin 20.9 pg (26-34); Mean Corpuscular Volume 75.3 fl (80-100); Mean Platelet Volume 10.1 fl (7.4-10.4); Monocytes Absolute Auto 0.5 K/mm3 (0.1-0.6); Monocytes Percent Auto 12.9 % (2.6-8.5); Neutrophils Absolute Auto 2.6 K/mm3 (1.3-6.7); Neutrophils Percent Auto 66.8 % (45.5-73.1); Platelet Count Result 105 k/mm3 (150-375); Red Blood Count 4.17 M/mm3 (4.6-6.20); Red Cell Distribution Width 17.6 % (11.5-14.5); White Blood Count 3.9 K/mm3 (4.5-10.0)
[2021-06-13 18:40] LABS: Alanine Aminotransferase 13 U/L (4-50); Alkaline Phosphatase 168 U/L (38-126); Anion Gap 10 mmol/L (8-16); Aspartate Amino Transferase 31 U/L (17-59); Bilirubin,Total 0.7 mg/dL (0.2-1.3); Blood Urea Nitrogen 21 mg/dL (9-20); Calcium 8.9 mg/dL (8.4-10.2); Carbon Dioxide 26 mmol/L (22-30); Chloride 99 mmol/L (98-107); Estimated CRCL calculation 90 ml/min; Estimated Glomerular Filt Rate > 60; Glucose 166 mg/dL (65-110); Lipase 62 U/L (23-300); Potassium 3.9 mmol/L (3.4-5.0); Sodium 135 mmol/L (137-145)
[2021-06-13 19:00] VITALS: BP 173/106; PULSE 101; RESP 20; O2SAT 99
--- NOTE | 2021-06-13 19:00 | PC.NURSE ---
Assuming care of pt.
[2021-06-13 19:28] LABS: Platelet Estimate Decreased (Adequate)
[2021-06-13 19:30] LABS: Anisocytosis 1+ (NORMAL); Hypochromasia 2+ (NORMAL); Stomatocytes 1+ (NORMAL)
--- NOTE | 2021-06-13 19:45 | PC.NURSE ---
made aware pt requesting pain meds.
[2021-06-13 21:23] VITALS: BP 159/101; PULSE 101; RESP 18; O2SAT 100
== END 2021-06-13 21:24 | disposition home or self-care (01) ==
PROVIDERS: Emergency Provider Emergency Medicine; PCP Physician Assistant
DX: K74.60 Unspecified cirrhosis of liver (principal); R18.8 Other ascites; D64.9 Anemia, unspecified; K21.9 Gastro-esophageal reflux disease without esophagitis; I10 Essential (primary) hypertension; K76.6 Portal hypertension; K31.89 Other diseases of stomach and duodenum; I31.3 Pericardial effusion (noninflammatory); Z86.73 Personal history of transient ischemic attack (TIA), and cerebral infarction without residual deficits; Z85.46 Personal history of malignant neoplasm of prostate; Z85.47 Personal history of malignant neoplasm of testis; Z87.442 Personal history of urinary calculi
CPT/HCPCS: 36415; 74177; 80053; 81001; 83690; 85025; 85055; 96374; 96375; 99284; J2270; J2405; Q9967

== ENCOUNTER 2021-07-31 09:14 | Emergency (ER) | payer OTHER, SELFPAY ==
--- NOTE | ~2021-07-31 | US_ITS ---
EXAMINATION: US paracentesis abd w/image DATE: 07/31/2021 15:21 INDICATION: Ascites. TECHNIQUE: The procedure and its risks, benefits, and alternatives were discussed with the patient. P otential risks discussed included bleeding and infection. The skin was prepped and draped in sterile fashion. 1% lidocaine was used for local anesthesia. Under ultrasound guidance, a 5 Fr catheter with trochar was advanced into the ascites in the right lower quadrant. Fluid was aspirated. The catheter was removed, and a dressing was applied. There were no immediate complications. FINDINGS: Ultrasound images demonstrate ascites and the catheter within the fluid. IMPRESSION: 1. Successful ultrasound-guided paracentesis yielding 400 mL of clear, yellow fluid. Reviewed, dictated and finalized at location A. DREN LIBRARIAN
--- NOTE | ~2021-07-31 | CT_ITS ---
EXAMINATION: CT abdomen pelvis w con INDICATION: Abdominal pain with distention TECHNIQUE: Computed tomographic images of the abdomen and pelvis were obtained after the administrati on of 100 cc of Omnipaque 350 intravenous contrast. The dose-length product (DLP) was 924.08 mGy-cm. Automated exposure control and iterative reconstruction technique were employed. COMPARISON: 06/13/2021 FINDINGS: The heart size is normal. There is a moderate-sized pericardial effusion. There is atelecta sis in the visualized lung bases. Trace pleural effusions are present. There is nodularity of the renée er surface. A small to moderate volume of abdominal and pelvic ascites is present. The gallbladder is surgically absent. The spleen, pancreas, and adrenal glands are normal. There is a 2 mm nonobstructi ng stone of the left kidney lower pole. The right kidney is unremarkable. No pathologically enlarged abdominal or pelvic lymph nodes are identified. There is no free intraperitoneal gas. Third portion o f duodenum is mildly distended, likely ileus. Unchanged compression fractures of T11 and T12 vertebra l there is a small umbilical hernia containing ascites. IMPRESSION: 1. Small to moderate volume of ascites. 2. Cirrhosis. 3. Moderate-sized pericardial effusion without significant change. Reviewed, dictated and finalized at location A. SEWAGE PLANT OPERATOR
[2021-07-31 09:25] VITALS: BP 159/112; PULSE 97; RESP 18; TEMP 36.6; O2SAT 100
[2021-07-31 09:52] LABS: Basophils Percent Auto 0.5 % (0.2-1.2); Eosinophils Percent Auto 0.5 % (0-4.4); Hematocrit 30.8 % (42.0-52.0); Hemoglobin 8.4 g/dL (14.0-18.0); Immature Granulocyte Absolute 0.01 K/mm3 (0.00-0.031); Immature Granulocyte Percent A 0.2 % (0-0.5); Immature Platelet Fraction Pct 7.9 % (0.9-11.2); Lymphocytes Percent Auto 14.6 % (18.3-44.2); Mean Corpuscular HGB Conc 27.3 g/dl (32-36); Mean Corpuscular Hemoglobin 21.6 pg (26-34); Mean Corpuscular Volume 79.2 fl (80-100); Mean Platelet Volume 10.2 fl (7.4-10.4); Monocytes Absolute Auto 0.6 K/mm3 (0.1-0.6); Monocytes Percent Auto 14.3 % (2.6-8.5); Neutrophils Absolute Auto 2.9 K/mm3 (1.3-6.7); Neutrophils Percent Auto 69.9 % (45.5-73.1); Platelet Count Result 120 k/mm3 (150-375); Red Blood Count 3.89 M/mm3 (4.6-6.20); Red Cell Distribution Width 19.3 % (11.5-14.5); White Blood Count 4.1 K/mm3 (4.5-10.0)
[2021-07-31 10:49] VITALS: PULSE 93; RESP 22; O2SAT 100
[2021-07-31 10:59] LABS: Add Urine Microscopic? YES; Appearance Urine Clear (Clear); Bilirubin Urine Negative (Negative); Blood Urine Negative (Negative); Color Urine Yellow (Yellow); Glucose Urine UA 3+ mg/dL (Negative); Ketones Urine Negative (Negative); Leukocyte Esterase Ur Negative LEU/UL (Negative); Mucus Urine Rare /lpf; Nitrate Urine Negative (Negative); Protein Urine 2+ mg/dL (Negative); RBC Urine 0-2 /hpf (0-2); Specific Grav Ur 1.024 (1.001-1.035); Squamous Epithelial Cell Urine Rare /hpf (Few); Urobilinogen Urine Negative mg/dL (<2.0); WBC Urine 0-3 /hpf
[2021-07-31 11:00] LABS: Alanine Aminotransferase 11 U/L (4-50); Albumin Level 3.7 g/dL (3.5-5.1); Alkaline Phosphatase 162 U/L (38-126); Anion Gap 6 mmol/L (8-16); Aspartate Amino Transferase 33 U/L (17-59); Bilirubin,Total 0.7 mg/dL (0.2-1.3); Blood Urea Nitrogen 18 mg/dL (9-20); Calcium 8.9 mg/dL (8.4-10.2); Carbon Dioxide 28 mmol/L (22-30); Chloride 100 mmol/L (98-107); Estimated CRCL calculation 107 ml/min; Estimated Glomerular Filt Rate > 60; Glucose 231 mg/dL (65-110); Lipase 71 U/L (23-300); Potassium 4.6 mmol/L (3.4-5.0); Sodium 134 mmol/L (137-145)
--- NOTE | 2021-07-31 12:02 | ED.ABDPAIN ---
HPI - Abdominal Pain General Chief Complaint: Abdominal Pain Stated Complaint: SOB,ABD PAIN Time Seen by Provider: 07/31/21 09:42 Source: patient, EMS and RN notes reviewed Mode of arrival: EMS Limitations: clinical condition History of Present Illness HPI narrative: Patient is 51 years old white male presented with sudden onset of abdominal pain and distention started at 2 AM. Patient denies any fever, chills, nausea, vomiting, diarrhea, constipation, urinary symptoms. History of liver cirrhosis with ascites, last abdominal centesis 6 months ago, Related Data Home Medications Medication Instructions Recorded Confirmed carvedilol 6.25 mg PO Q12H 05/27/21 05/27/21 ciprofloxacin HCl 500 mg PO DAILY 05/27/21 05/27/21 furosemide 40 mg PO DAILY 05/27/21 05/27/21 omeprazole 10 mg PO DAILY 05/27/21 05/27/21 Allergies Allergy/AdvReac Type Severity Reaction Status Date / Time No Known Allergies Allergy Verified 06/13/21 17:37 Review of Systems Review of Systems: CONSTITUTIONAL: Denies fever, chills, or sweats. EYES: Denies visual changes, redness, or discharge. ENT: Denies rhinorrhea, congestion, sore throat, or otalgia. CARDIOVASCULAR: Denies chest pain, palpitations, or edema. RESPIRATORY: Denies cough or dyspnea. GASTROINTESTINAL: Denies abdominal pain, nausea, vomiting, or diarrhea. GENITOURINARY: Denies dysuria or hematuria. SKIN: Denies rash or itching. MUSCULOSKELETAL: Denies back pain, joint pain, or myalgia. NEUROLOGIC: Denies headache, numbness, or weakness. PSYCHIATRIC: Denies anxiety or depression. [facility] Past Medical History Medical History Arthritis Chronic anemia Cirrhosis of liver with ascites CVA (cerebral vascular accident) 2004 Gastric ulcer Gastroesophageal reflux disease History of kidney stones Hypertension Pericardial effusion Noted on CT and echocardiogram in August 2020. No evidence of tamponade. Portal hypertensive gastropathy Noted on endoscopy on 03/23/[address] Duran. Prostate cancer Status post radiation seed implantation. Prostate tumor Smoker Spontaneous bacterial peritonitis (04/2020) Testicular cancer Tobacco use Surgical History Surgical History History of appendectomy History of cholecystectomy History of inguinal hernia repair History of lithotripsy History of repair of right rotator cuff History of testicular surgery benign. Family History Family History Mother Family history of malignant neoplasm of breast in first degree relative Breast cancer Father Acute myocardial infarction Hypertension Heart disease Other Diabetes mellitus Maternal Unkle Other Family history of malignant neoplasm Social History Social History Social History: Surrogate decision maker: : Myra Worley 1st Marnie Washington, Aunt 2nd Code status: Full code Patient lives with his and son. He mentioned that his is battling stage 4 cancer. They have four children, which his youngest just graduated from [employer] and 2 of his daughters are striving to become MDs. 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 Gender identity (if verbalized by the patient): Male Sexual Orientation (if Verbalized by the Patient): Straight or Heterosexual Spiritual care concerns: No Agree to blood products: Yes
[2021-07-31] MEDS: ONDANSETRON INJ 4 MG/2 ML VIAL IV PUSH (12:09)
[2021-07-31] MEDS: MORPHINE SULFATE (*CRX) 4 MG/ML INJ IV PUSH (12:09)
[2021-07-31 12:46] VITALS: BP 155/97; PULSE 95; RESP 19; O2SAT 100
[2021-07-31 14:27] VITALS: BP 160/98; PULSE 94; RESP 20; O2SAT 100
[2021-07-31 14:47] LABS: INR 1.1; Partial Thromboplastin Time 30.3 SECONDS (22.3-36.8); Prothrombin Time 14.1 Seconds (11.1-14.7)
--- NOTE | 2021-07-31 14:58 | PC.NURSE ---
pt taken to ultrasound for paracentesis at this time.
[2021-07-31 15:50] VITALS: BP 153/91; PULSE 100; RESP 20; O2SAT 100
== END 2021-07-31 15:50 | disposition home or self-care (01) ==
PROVIDERS: Emergency Provider Emergency Medicine; PCP Physician Assistant
DX: K70.31 Alcoholic cirrhosis of liver with ascites (principal); K70.11 Alcoholic hepatitis with ascites; R10.84 Generalized abdominal pain; K21.9 Gastro-esophageal reflux disease without esophagitis; M19.90 Unspecified osteoarthritis, unspecified site; Z86.73 Personal history of transient ischemic attack (TIA), and cerebral infarction without residual deficits; Z87.442 Personal history of urinary calculi; Z85.46 Personal history of malignant neoplasm of prostate; Z85.47 Personal history of malignant neoplasm of testis; Z87.891 Personal history of nicotine dependence; J90 Pleural effusion, not elsewhere classified
CPT/HCPCS: 36415; 49083; 74177; 80053; 81001; 83690; 85025; 85055; 85610; 85730; 96374; 96375; 99284; J2270; J2405; Q9967

== ENCOUNTER 2021-08-14 22:22 | Observation (INO) | payer OTHER, SELFPAY ==
--- NOTE | ~2021-08-14 | XR_ITS ---
XR chest 2V 08/14/2021 23:18 Indication: Midsternal chest pain and pressure. Shortness of breath. Procedure: AP and lateral views of the chest Comparison: Comparison to multiple prior studies sequentially, with oldest reviewed study dated 11/08. Findings: Moderate cardiomegaly. Mild interstitial edema. No pleural effusion or pneumothorax. No acu te osseous abnormality. There are lower thoracic wedge compression fractures which appear chronic. Impression: 1: Cardiomegaly with mild interstitial edema. Reviewed, dictated and finalized at location A. RER Impression: 1: Cardiomegaly with mild interstitial edema.
--- NOTE | ~2021-08-14 | CT_ITS ---
EXAMINATION: CT abdomen pelvis w con DATE: 08/14/2021 23:30 INDICATION: Abdominal distention and shortness of breath TECHNIQUE: Computed tomography (CT) of the abdomen and pelvis was performed with 100 cc Omnipaque 350 intravenous contrast. The dose-length product was 798.04 mGy-cm. Automated exposure control and iter ative reconstruction technique were employed. COMPARISON: CT dated 07/31/2021. FINDINGS: Moderate pericardial effusion. Cardiomegaly. Small amount of ascites. Cirrhosis of the live r. Multiple small low density mesenteric lymph nodes are present, likely reactive. There is mild diff use small bowel wall thickening which is nonspecific and may relate to underlying liver disease, alth ough enteritis is not excluded. Splenomegaly. There is mild peripancreatic fluid/inflammation. Cannot exclude acute pancreatitis. Sta tus post cholecystectomy. The adrenal glands and right kidney are unremarkable. There is a 2-3 mm non obstructing left renal stone. Small umbilical hernia containing fluid. Nonobstructive bowel pattern. Chronic wedge compression fractures of T10 and T11 with mild chronic superior endplate compression de formity of T12. IMPRESSION: 1. Cirrhosis with small amount of ascites. 2: Splenomegaly. 3: Moderate pericardial effusion. 4: Mild nonspecific small bowel wall thickening which may relate to hypoproteinemia with chronic renée er disease, although enteritis is not excluded. 5: Mild peripancreatic fluid/inflammation. Consider pancreatitis in the appropriate clinical setting. 6: Nonobstructing left nephrolithiasis. Reviewed, dictated and finalized at location A. ODIAL SUPERVISOR IMPRESSION: 1. Cirrhosis with small amount of ascites. 2: Splenomegaly. 3: Moderate pericardial effusion. 4: Mild nonspecific small bowel wall thickening which may relate to hypoprotei nemia with chronic liver disease, although enteritis is not excluded. 5: Mild peripancreatic fluid/inflammation. Consider pancreatitis in the appropr iate clinical setting. 6: Nonobstructing left nephrolithiasis.
[2021-08-14 22:30] VITALS: PULSE 111; RESP 22; O2SAT 100
[2021-08-14 22:31] VITALS: BP 156/87; PULSE 108; PULSE 110; RESP 16; RESP 19; TEMP 36.8; O2SAT 100
--- NOTE | 2021-08-14 22:36 | ECG_ITS ---
Measurements Intervals [place] Rate: 108 P: 46 SD: 162 QRS: 65 QRSD: 89 T: 66 QT: 356 QTc: 477 Interpretive Statements SINUS TACHYCARDIA POSSIBLE LEFT ATRIAL ENLARGEMENT [-0.1mV P WAVE IN V1/V2] POSSIBLE RIGHT VENTRICULAR CONDUCTION DELAY [RSR (QR) IN V1/V2] NONSPECIFIC ST & T-WAVE ABNORMALITY ABNORMAL ECG Electronically Signed On 08-15-2021 9:50:53 DOCTOR OF OSTEOPATHY by Dennis Patino M.D.
[2021-08-14 22:45] VITALS: PULSE 108; RESP 23; O2SAT 99
[2021-08-14] MEDS: MORPHINE SULFATE (*CRX) 4 MG/ML INJ IV PUSH (22:55)
--- NOTE | 2021-08-14 22:56 | ED.GENADULT ---
HPI - General Adult General Chief complaint: Chest Pain Stated complaint: difficulty breathing and chest pain x 1 hour Time Seen by Provider: 08/14/21 22:35 Source: patient History of Present Illness HPI narrative: Patient presents with shortness of breath chest pain and abdominal pain. Reports his symptoms been getting progressively worse over the past hour. He is a known liver failure patient gets most of his care over at [facility] he had a paracentesis a couple weeks ago here at [facility] but does not think he took enough off and his belly is benign swelling and having increasing pain. He also reports he denies shortness of breath like he get enough air. He also reported some melanotic stool. Related Data Home Medications Medication Instructions Recorded Confirmed carvedilol 6.25 mg PO Q12H 05/27/21 05/27/21 ciprofloxacin HCl 500 mg PO DAILY 05/27/21 05/27/21 furosemide 40 mg PO DAILY 05/27/21 05/27/21 omeprazole 10 mg PO DAILY 05/27/21 05/27/21 Allergies Allergy/AdvReac Type Severity Reaction Status Date / Time No Known Allergies Allergy Verified 06/13/21 17:37 Review of Systems Review of Systems: CONSTITUTIONAL: Denies fever, chills, or sweats. EYES: Denies visual changes, redness, or discharge. ENT: Denies rhinorrhea, congestion, sore throat, or otalgia. CARDIOVASCULAR: Denies chest pain, palpitations, or edema. RESPIRATORY: Denies cough or dyspnea. GASTROINTESTINAL: Denies abdominal pain, nausea, vomiting, or diarrhea. GENITOURINARY: Denies dysuria or hematuria. SKIN: Denies rash or itching. MUSCULOSKELETAL: Denies back pain, joint pain, or myalgia. NEUROLOGIC: Denies headache, numbness, dizziness, or weakness. PSYCHIATRIC: Denies anxiety or depression. All systems reviewed & are unremarkable except as noted in HPI and below PMFSH Past Medical History Medical History Arthritis Chronic anemia Cirrhosis of liver with ascites CVA (cerebral vascular accident) 2004 Gastric ulcer Gastroesophageal reflux disease History of kidney stones Hypertension Pericardial effusion Noted on CT and echocardiogram in August 2020. No evidence of tamponade. Portal hypertensive gastropathy Noted on endoscopy on 03/23/[address] Duran. Prostate cancer Status post radiation seed implantation. Prostate tumor Smoker Spontaneous bacterial peritonitis (04/2020) Testicular cancer Tobacco use Surgical History Surgical History History of appendectomy History of cholecystectomy History of inguinal hernia repair History of lithotripsy History of repair of right rotator cuff History of testicular surgery benign. Family History Family History Mother Family history of malignant neoplasm of breast in first degree relative Breast cancer Father Acute myocardial infarction Hypertension Heart disease Other Diabetes mellitus Maternal Unkle Other Family history of malignant neoplasm Social History Social History Social History: Surrogate decision maker: : Myra Worley 1st Marnie Washington, Aunt 2nd Code status: Full code Patient lives with his and son. He mentioned that his is battling stage 4 cancer. They have four children, which his youngest just graduated from [employer] and 2 of his daughters are striving to become MDs. Smoking packs per day: 1 Smoking cigarettes per day: 20.0 Years smoked: 30 Smoking pack-years: 30.00 Smoking status: Former smoker Tobacco type: cigarettes Second hand tobacco smoke exposure: Yes (From ) Alcohol intake: former Drinks per week: 2 Alcohol use details: Beer Substance use: never Substance use type: does not use Additional living arrangements comments: Resides in [place] with his and 6-year-old son Additional occupation/education comments: [employer]
[2021-08-14 22:57] LABS: Basophils Percent Auto 0.5 % (0.2-1.2); Eosinophils Absolute Auto 0.1 K/mm3 (0-0.3); Eosinophils Percent Auto 1.4 % (0-4.4); Immature Granulocyte Absolute 0.02 K/mm3 (0.00-0.031); Immature Granulocyte Percent A 0.5 % (0-0.5); Lymphocytes Absolute Auto 0.89 K/mm3 (0.9-3.2); Lymphocytes Percent Auto 20.8 % (18.3-44.2); Mean Corpuscular Hemoglobin 21.5 pg (26-34); Mean Corpuscular Volume 79.7 fl (80-100); Mean Platelet Volume 11.1 fl (7.4-10.4); Monocytes Absolute Auto 0.6 K/mm3 (0.1-0.6); Monocytes Percent Auto 13.1 % (2.6-8.5); Neutrophils Absolute Auto 2.7 K/mm3 (1.3-6.7); Neutrophils Percent Auto 63.7 % (45.5-73.1); Platelet Count Result 147 k/mm3 (150-375); Red Blood Count 2.51 M/mm3 (4.6-6.20); Red Cell Distribution Width 18.9 % (11.5-14.5); White Blood Count 4.3 K/mm3 (4.5-10.0)
[2021-08-14 23:00] VITALS: PULSE 115; RESP 20; O2SAT 100
[2021-08-14 23:01] VITALS: BP 155/77; PULSE 115; RESP 30; O2SAT 98
[2021-08-14 23:05] LABS: Albumin Level 3.4 g/dL (3.5-5.1)
[2021-08-14 23:07] LABS: Alanine Aminotransferase 10 U/L (4-50); Albumin Level 3.6 g/dL (3.5-5.1); Alkaline Phosphatase 118 U/L (38-126); Anion Gap 9 mmol/L (8-16); Aspartate Amino Transferase 27 U/L (17-59); Bilirubin,Total 0.3 mg/dL (0.2-1.3); Blood Urea Nitrogen 13 mg/dL (9-20); Calcium 8.1 mg/dL (8.4-10.2); Carbon Dioxide 24 mmol/L (22-30); Chloride 102 mmol/L (98-107); Estimated CRCL calculation 81 ml/min; Estimated Glomerular Filt Rate > 60; Glucose 433 mg/dL (65-110); Lipase 130 U/L (23-300); Potassium 3.5 mmol/L (3.4-5.0); Sodium 135 mmol/L (137-145)
[2021-08-14 23:12] LABS: INR 1.1; Prothrombin Time 13.9 Seconds (11.1-14.7)
[2021-08-14 23:13] LABS: Partial Thromboplastin Time 30.3 SECONDS (22.3-36.8)
[2021-08-14 23:19] LABS: Troponin I 0.031 ng/mL (0.000-0.034)
[2021-08-14 23:22] LABS: Hemoglobin 5.4 g/dL (14.0-18.0)
[2021-08-14 23:23] LABS: Hypochromasia 2+ (NORMAL); Platelet Estimate Adequate (Adequate)
[2021-08-15] VITALS (27 sets, daily range): BP systolic 100–165; BP diastolic 54–105; PULSE 79–114; RESP 16–22; TEMP 36.1–36.9; O2SAT 94–100; BMI 31.1
--- NOTE | 2021-08-15 | ECHOL_ITS ---
Patient Info Name: Matt Worley Age: 51 years : 1970 Gender: Male Ht: 66 in Wt: 192 lbs BSA: 2.04 m2 HR: 84 bpm BP: 154 / 102 mmHg Technical Quality: Fair Exam Date: 08/15/2021 10:50 AM Exam Location: [facility] Patient Status: Inpatient Admit Date: 08/15/2021 Staff Ordering Physician: Buddy Landaverde MD [employer] Cutter And Swager: Leighann Florian RDCS Attending Provider: Dima Buenrostro MD Exam Type: CA echo limited Study Info Indications I31.3 - Pericardial effusion (noninflammatory) Limited two-dimensional transthoracic echocardiogram is performed. Summary 1. Left ventricular systolic function is normal, estimated at 50-55%. 2. There is small to moderate circumferential pericardial effusion. No evidence of tamponade. Left Ventricle Left ventricular chamber dimension is normal. Left ventricular systolic function is normal, estimated at 50-55%. There is no increased left ventricular wall thickness. Right Ventricle Normal size and systolic function. Left Atria Left atrial chamber dimension is mildly enlarged. Atrial Septum Intact interatrial septum visualized by 2D imaging. Aortic Valve The aortic valve is not well visualized. Pulmonic Valve The pulmonic valve is not well visualized. Mitral Valve The mitral valve has normal leaflets. Tricuspid Valve The tricuspid valve leaflets are normal. Pericardium/Pleural There is small to moderate circumferential pericardial effusion. No evidence of tamponade. Aorta The aortic root size at the sinus of Valsalva is normal. Report Signatures
[2021-08-15] MEDS: MORPHINE SULFATE (*CRX) 4 MG/ML INJ IV PUSH ×5 (00:05→22:20)
[2021-08-15 00:13] LABS: NT Pro B Type Natriuretic Pept 769 pg/mL (5-100)
--- NOTE | 2021-08-15 00:40 | PM.IMHP ---
H&P: HPI History of Present Illness Date/Time: 08/15/21 00:40 Chief Complaint: Shortness of breath Narrative: This is a 51-year-old male with past medical history significant for hepatic cirrhosis, esophageal varices, tobacco dependence, patient presented to the emergency room after he has had several episodes of coffee-ground emesis and melena in the last 3 days or so, shortness of breath lightheadedness, dizziness, shortness of breath, palpitation, leg swelling, denies any fevers, rigors chills cough or sputum production. Preliminary workup was significant for hemoglobin of 5. Patient is being admitted for further evaluation management and treatment. Review of Systems Review of Systems: Coffee-ground emesis, melena, shortness of breath, palpitations, leg swelling. Constitutional: Constitutional: Denies chills, Reports fatigue, Denies fever(s), Reports lethargy, Denies malaise, Reports poor appetite and Denies weakness Eyes: Eyes: Denies change in vision ENT: Denies dysphagia, Denies vertigo, Reports dizziness, Denies nasal congestion, Denies nasal discharge, Denies nasal obstruction and Denies odynophagia Cardiovascular: Cardiovascular: Reports pedal edema, Denies irregular heart rhythm, Denies claudication, Reports leg edema, Reports lightheadedness, Denies radiating jaw, neck or arm pain, Denies palpitations, Reports dyspnea, Denies dyspnea on exertion, Denies orthopnea and Denies paroxysmal nocturnal dyspnea Respiratory: Respiratory: Denies cough Gastrointestinal: Gastrointestinal: Denies abdominal pain, Reports melena, Reports coffee ground emesis, Denies dyspepsia, Denies heartburn, Reports nausea and Reports vomiting Genitourinary: Genitourinary: Reports no additional male genitourinary complaints and Reports as per HPI Musculoskeletal: Musculoskeletal: Reports no additional musculoskeletal complaints, Reports as per HPI, Denies arthralgias and Denies joint swelling Integumentary/Breasts: Skin/Breast: Denies rash Neurologic: Denies focal weakness and Denies Sensory deficit (Neuro) Psychiatric: Psychiatric: Reports no additional psychiatric complaints and Reports as per HPI Endocrine: Endocrine: Denies cold intolerance, Denies excessive sweating, Denies fatigue, Denies flushing, Denies heat intolerance, Denies polyphagia, Denies polydipsia, Denies polyuria and Denies palpitations Hematologic/Lymphatic: Hematologic/Lymphatic: Reports no additional hematologic/lymphatic complaints and Reports as per HPI Allergic/Immunologic: Allergic/Immunologic: Reports no additional allergic/immunologic complaints and Reports as per HPI [facility] Past Medical History Medical History Arthritis Chronic anemia Cirrhosis of liver with ascites CVA (cerebral vascular accident) 2004 Gastric ulcer Gastroesophageal reflux disease History of kidney stones Hypertension Pericardial effusion Noted on CT and echocardiogram in August 2020. No evidence of tamponade. Portal hypertensive gastropathy Noted on endoscopy on 03/23/[address] Duran. Prostate cancer Status post radiation seed implantation. Prostate tumor Smoker Spontaneous bacterial peritonitis (04/2020) Testicular cancer Tobacco use Surgical History Surgical History History of appendectomy History of cholecystectomy History of inguinal hernia repair History of lithotripsy History of repair of right rotator cuff History of testicular surgery benign. Family History Family History Mother Family history of malignant neoplasm of breast in first degree relative Breast cancer Father Acute myocardial infarction Hypertension Heart disease Other Diabetes mellitus Maternal Unkle Other Family history of malignant neoplasm Social History Social History Social History: Surrogate decision maker: Wi
[2021-08-15] MEDS: PANTOPRAZOLE SODIUM IV 40 MG VIAL 80 MG IV PUSH (00:58)
[2021-08-15] MEDS: OCTREOTIDE ACETATE 50 MCG/ML VIAL IV PUSH (00:59)
[2021-08-15] MEDS: ONDANSETRON INJ 4 MG/2 ML VIAL IV PUSH ×2 (01:17→22:20)
[2021-08-15 01:55] LABS: Hematocrit 20.7 % (42.0-52.0); Hemoglobin 5.7 g/dL (14.0-18.0)
[2021-08-15 02:32] LABS: Troponin I 0.039 ng/mL (0.000-0.034)
[2021-08-15] MEDS: SODIUM CHLORIDE 0.9% IV 250 ML 30 ML IV CONT (02:40)
[2021-08-15] MEDS: TUBING, BLOOD SET 1 EACH XX (02:46)
--- NOTE | 2021-08-15 03:17 | PCDIET ---
This patient, Matt Worley II, was admitted to Intensive Care Unit-1. Patient/family oriented to hospital policies and general routines including ID bracelet, bed and alarms, visiting hours, pain management, procedures, bathroom and other care routines, personal items, smoking policy, room service/diet, and visiting hours. Information on how to activate the Rapid Response Team has been discussed. Patient/Family are encouraged to report perceived risks to care and to ask questions if they do not understand what they are told or what they should do.
[2021-08-15] MEDS: DICYCLOMINE HCL INJ 20 MG/2 ML VIAL IM (03:42)
[2021-08-15] MEDS: HYDROmorphone HCL INJ (*CRX) 1 MG/ML SYR IV PUSH ×3 (05:00→20:53)
[2021-08-15 06:06] LABS: Troponin I 0.037 ng/mL (0.000-0.034)
[2021-08-15 08:50] LABS: Basophils Absolute Auto 0.1 K/mm3 (0.0-0.1); Basophils Percent Auto 1.1 % (0.2-1.2); Eosinophils Absolute Auto 0.1 K/mm3 (0-0.3); Eosinophils Percent Auto 2.1 % (0-4.4); Hematocrit 27.5 % (42.0-52.0); Hemoglobin 7.6 g/dL (14.0-18.0); Immature Granulocyte Absolute 0.02 K/mm3 (0.00-0.031); Immature Granulocyte Percent A 0.5 % (0-0.5); Lymphocytes Absolute Auto 1.12 K/mm3 (0.9-3.2); Lymphocytes Percent Auto 25.6 % (18.3-44.2); Mean Corpuscular HGB Conc 27.6 g/dl (32-36); Mean Corpuscular Hemoglobin 22.8 pg (26-34); Mean Corpuscular Volume 82.3 fl (80-100); Mean Platelet Volume 10.6 fl (7.4-10.4); Monocytes Absolute Auto 0.8 K/mm3 (0.1-0.6); Monocytes Percent Auto 17.1 % (2.6-8.5); Neutrophils Absolute Auto 2.4 K/mm3 (1.3-6.7); Neutrophils Percent Auto 53.6 % (45.5-73.1); Platelet Count Result 135 k/mm3 (150-375); Red Blood Count 3.34 M/mm3 (4.6-6.20); Red Cell Distribution Width 18.5 % (11.5-14.5); White Blood Count 4.4 K/mm3 (4.5-10.0)
[2021-08-15 08:59] LABS: Alanine Aminotransferase 12 U/L (4-50); Albumin Level 3.8 g/dL (3.5-5.1); Alkaline Phosphatase 120 U/L (38-126); Anion Gap 8 mmol/L (8-16); Aspartate Amino Transferase 29 U/L (17-59); Bilirubin,Total 1.1 mg/dL (0.2-1.3); Blood Urea Nitrogen 14 mg/dL (9-20); Calcium 8.1 mg/dL (8.4-10.2); Carbon Dioxide 25 mmol/L (22-30); Chloride 99 mmol/L (98-107); Estimated CRCL calculation 89 ml/min; Estimated Glomerular Filt Rate > 60; Glucose 326 mg/dL (65-110); INR 1.2; Magnesium 1.9 mg/dL (1.6-2.3); Phosphorus 3.7 mg/dL (2.5-4.5); Potassium 4.4 mmol/L (3.4-5.0); Prothrombin Time 14.6 Seconds (11.1-14.7); Sodium 132 mmol/L (137-145)
[2021-08-15] MEDS: LABETALOL HCL INJ 100 MG/20 ML VIAL 20 MG IV PUSH (09:30)
[2021-08-15 09:39] LABS: Anisocytosis 1+ (NORMAL); Hypochromasia 1+ (NORMAL); Ovalocytes 1+ (NORMAL); Platelet Estimate Adequate (Adequate); Tear Drop Cells 1+ (NORMAL)
[2021-08-15 09:40] LABS: Acanthocytes 1+ (NORMAL)
--- NOTE | 2021-08-15 09:56 | WPDGICN ---
Assessment and Plan Assessment and plan (1) Acute GI bleeding: Code(s): K92.2 - Gastrointestinal hemorrhage, unspecified Status: Acute Assessment and Plan: We have started him on pantoprazole and also octreotide drip. he will be scheduled for EGD today. He has had transfusion with 2 units of blood with hemoglobin now 7.6. (2) Abdominal ascites: Qualifiers: Ascites type: due to alcoholic hepatitis Qualified Code(s): K70.11 - Alcoholic hepatitis with ascites Code(s): R18.8 - Other ascites Status: Acute Assessment and Plan: CT shows minimal ascites. This again despite the fact that he seems to have severe pain and complaints of about the abdomen being tight. (3) Chronic anemia: Code(s): D64.9 - Anemia, unspecified Status: Acute Assessment and Plan: One year ago his hemoglobin was slightly low at 12.3 but for the past 6 months it has been closer to 8. now, with hemoglobin of 5.4, he obviously has had acute blood loss. I discussed with him his visit with the records coordinator at [facility]. He was disappointed that he was told to come back in 6 months and not sooner. (4) Cirrhosis: Qualifiers: Ascites presence: with ascites Hepatic cirrhosis type: alcoholic cirrhosis Qualified Code(s): K70.31 - Alcoholic cirrhosis of liver with ascites Code(s): K74.60 - Unspecified cirrhosis of liver Status: Acute Assessment and Plan: He just recently got connected with the records coordinator at [facility], Dr. Jasso. He saw him once in May and was told to come back in 6 months. They did switch him from nadolol to carvedilol. he has quit drinking I believe all together. (5) Tobacco use: Code(s): Z72.0 - Tobacco use Status: Chronic Assessment and Plan: Former smoker (6) Esophageal varices: Code(s): I85.00 - Esophageal varices without bleeding Status: Acute Assessment and Plan: these were last banded about 5 months ago. I suspect he is bleeding again from varices. We have started him on octreotide and plan on performing EGD short GI Consult Note Consult date/time: 08/15/21 09:56 HPI: Matt Worley II is a 51 year old male with known liver disease and portal hypertension. He has had ascites for least a year, requiring periodic paracentesis. He in fact seems to develop severe abdominal pain with reaccumulation of only small amounts of ascitic fluid, sometimes too little for Radiology to remove. It take him a while to get associated with records coordinator in [place] but he has finally started seen somebody at [facility] and I believe recently at [facility]. He has been treated in the past for esophageal varices with clipping and then the past few days has had black stools and some coffee-ground emesis. He presented to the emergency room was found to be markedly anemic with a hemoglobin of 5. He usually runs at least state. And a recent visit emergency room with similar complaints of black stools his Hemoccult was negative. Stool could not be obtained for Hemoccult last night, although based on his low hemoglobin it is fairly evident that he has been bleeding. Yesterday he began to feel lightheaded as well. He has not had abdominal pain different from his usual tightness. For the duration of the time I have known him, almost 1 year, he has almost constant severe abdominal pain with minimal ascites. We have not been able to explain that. He does at times get some relief when they are able to withdrawal even a few 100 cc of ascitic fluid. We had him on Adderall for his portal hypertension. He did see the records coordinator once, in early May and he was switched to carvedilol 6.25 mg b.i.d. his spironolactone has been continued at 25 mg b.i.d.. He had a colonoscopy by Dr. Claros 1 year ago that was negative Review of Systems Review of Systems: All systems reviewed & are unre
[2021-08-15] MEDS: metroNIDAZOLE 500 MG/ISO 100ML 500 MG/100 ML BAG 100 MG IVPB ×3 (10:14→22:22)
[2021-08-15] MEDS: FUROSEMIDE INJ 40 MG/4 ML VIAL IV PUSH (10:16)
--- NOTE | 2021-08-15 10:53 | WPDCNINT ---
Assessment and Plan Assessment and plan (1) Upper GI bleed: Code(s): K92.2 - Gastrointestinal hemorrhage, unspecified Status: Acute Assessment and Plan: most likely secondary to varices patient has history of esophageal varices requiring banding he was transfused 2 units of PRBC continue serial monitoring and transfuse as needed continue PPI and octreotide infusion in GI has been consulted and patient is due for EGD today blood pressure has been adequate at this time and will continue monitor (2) Acute blood loss anemia: Code(s): D62 - Acute posthemorrhagic anemia Status: Acute Assessment and Plan: see above (3) Cirrhosis of liver with ascites: Code(s): K74.60 - Unspecified cirrhosis of liver; R18.8 - Other ascites Status: Chronic Assessment and Plan: INR 1.2 and will check ammonia level (4) Gastroesophageal reflux disease: Code(s): K21.9 - Gastro-esophageal reflux disease without esophagitis Status: Acute Assessment and Plan: Currently on PPI drip (5) Portal hypertensive gastropathy: Code(s): K76.6 - Portal hypertension; K31.89 - Other diseases of stomach and duodenum Status: Acute Assessment and Plan: see above (6) Abdominal pain: Code(s): R10.9 - Unspecified abdominal pain Status: Acute Assessment and Plan: patient could have spontaneous bacterial peritonitis versus enteritis as evidenced by his CT scan. he also has splenomegaly which can cause pain CT scan shows minimal amount of fluid hence will be difficult to sent continue Rocephin and add Flagyl lipase was normal pain control CT A/P IMPRESSION: 1. Cirrhosis with small amount of ascites. 2: Splenomegaly. 3: Moderate pericardial effusion. 4: Mild nonspecific small bowel wall thickening which may relate to hypoproteinemia with chronic liver disease, although enteritis is not excluded. 5: Mild peripancreatic fluid/inflammation. Consider pancreatitis in the appropriate clinical setting. 6: Nonobstructing left nephrolithiasis. (7) Hyperglycemia: Code(s): R73.9 - Hyperglycemia, unspecified Status: Acute Assessment and Plan: currently NPO add sliding scale insulin (8) Elevated troponin: Code(s): R77.8 - Other specified abnormalities of plasma proteins Status: Acute Assessment and Plan: patient has mild elevation troponin likely from acute blood loss due to GI bleed he is not a candidate for any antiplatelet or anticoagulated ltreatment at this time and he is currently chest pain-free he is also NPO EKG reviewed and shows nonspecific ST-T change (9) Pericardial effusion: Code(s): I31.3 - Pericardial effusion (noninflammatory) Status: Acute Assessment and Plan: echo in 05/05 showed pericardial effusion without any tamponade physiology CT scan confirmed presence of moderate pericardial effusion will obtain limited echo to rule out any constrictive pericarditis or tamponade physiology (10) Volume overload: Code(s): E87.70 - Fluid overload, unspecified Status: Acute Assessment and Plan: patient has bilateral lower extremity swelling and also has some crackles on exam he did receive 2 units of PRBC will give a dose of Lasix at this time check echocardiogram to evaluate pericardial effusion Additional Plan DVT prophylaxis - SCDs Stress ulcer prophylaxis - currently on PPI Nutrition - NPO Code Status - Full Code Radiotelegraphist Consult Note Consult date: 08/15/21 HPI: Matt Worley II is a 51 year old male with past medical history cirrhosis secondary to alcohol abuse, GI bleed from esophageal varices requiring banding in the past who presented to the emergency room yesterday after he has had several episodes of coffee-ground emesis and melena in the last 2- 3 days. he also felt weak tired and short of breath. he also reported lightheadedn
--- NOTE | 2021-08-15 12:54 | WPDANESEPPF ---
Anes - Initial Pre Proc Eval Procedure: Operation Date: 08/15/21 13:00 Proposed Procedures p Esophagogastroduodenoscopy - Carroll Guerin MD Date/Time: 08/15/21 12:54 Surgeon: Dima Buenrostro MD Pre Op Diagnosis: GI Bleed Patient Data Age: 51 Gender: M Height: 1.68 m Weight: 87.5 kg Last Vital Signs Temp 36.5 C 08/15/21 10:00 Pulse 82 08/15/21 10:00 Resp 17 08/15/21 10:00 BP 132/96 H 08/15/21 10:00 Pulse Ox 100 08/15/21 10:00 Allergies Allergy/AdvReac Type Severity Reaction Status Date / Time No Known Allergies Allergy Verified 08/15/21 12:54 Home Medications Medication Instructions Recorded Confirmed Type spironolactone 25 mg PO BID #60 tablet 12/08/20 08/15/21 Rx carvedilol 6.25 mg PO Q12H 05/27/21 08/15/21 History furosemide 40 mg PO DAILY 05/27/21 08/15/21 History duloxetine 30 mg PO DAILY 08/15/21 08/15/21 History Laboratory Tests 08/14/21 08/14/21 08/14/21 22:47 22:47 22:47 WBC 4.3 K/mm3 L K/mm3 (4.5-10.0) RBC 2.51 M/mm3 L M/mm3 (4.6-6.20) Hgb 5.4 g/dL L* D g/dL (14.0-18.0) Hct 20.0 % L* % (42.0-52.0) MCV 79.7 fl L fl (80-100) MCH 21.5 pg L pg (26-34) MCHC 27.0 g/dl L g/dl (32-36) RDW 18.9 % H % (11.5-14.5) Plt Count 147 k/mm3 L k/mm3 (150-375) MPV 11.1 fl H fl (7.4-10.4) Immature Gran % (Auto) 0.5 % % (0-0.5) Neut % (Auto) 63.7 % % (45.5-73.1) Lymph % (Auto) 20.8 % % (18.3-44.2) [place] % (Auto) 13.1 % H % (2.6-8.5) Eos % (Auto) 1.4 % % (0-4.4) Baso % (Auto) 0.5 % % (0.2-1.2) Lymph # (Auto) 0.89 K/mm3 L K/mm3 (0.9-3.2) [place] # (Auto) 0.6 K/mm3 K/mm3 (0.1-0.6) Eos # (Auto) 0.1 K/mm3 K/mm3 (0-0.3) Baso # (Auto) 0.0 K/mm3 K/mm3 (0.0-0.1) Abs Immat Gran (auto) 0.02 K/mm3 K/mm3 (0.00-0.031) Absolute Neuts (auto) 2.7 K/mm3 K/mm3 (1.3-6.7) Absolute Nucleated RBC 0.0 K/mm3 K/mm3 (0.0-0.012) Nucleated RBC % 0.0 % % (0.0-0.2) Platelet Estimate Adequate (Adequate) Hypochromasia 2+ (NORMAL) Anisocytosis Tear Drop Cells Ovalocytes Acanthocytes (Spur) PT 13.9 Seconds Seconds (11.1-14.7) INR 1.1 APTT 30.3 SECONDS SECONDS (22.3-36.8) Sodium 135 mmol/L L mmol/L (137-145) Potassium 3.5 mmol/L mmol/L (3.4-5.0) Chloride 102 mmol/L mmol/L (98-107) Carbon Dioxide 24 mmol/L mmol/L (22-30) Anion Gap 9 mmol/L mmol/L (8-16) BUN 13 mg/dL D mg/dL (9-20) Creatinine 1.00 mg/dL mg/dL (0.7-1.3) Estim Creat Clear Calc 81 ml/min ml/min Estimated GFR > 60 (59 - ) Glucose 433 mg/dL H mg/dL (65-110) Calcium 8.1 mg/dL L mg/dL (8.4-10.2) Phosphorus Magnesium Total Bilirubin 0.3 mg/dL mg/dL (0.2-1.3) AST 27 U/L U/L (17-59) ALT 10 U/L U/L (4-50) Alkaline Phosphatase 118 U/L U/L (38-126) Troponin I 0.031 ng/mL ng/mL (0.000-0.034) NT-Pro-B Natriuret Pep Total Protein 6.0 g/dL L g/dL (6.3-8.2) Albumin 3.6 g/dL g/dL (3.5-5.1) Lipase 130 U/L U/L (23-300) Peritoneal Source Peritoneal Color Peritoneal Appearance Peritoneal RBC Periton Nuc Cells Periton Neutrophils Periton Lymphocytes Peritoneal Monocytes Peritoneal Eosinophils Periton Mesothelial Periton Macrophages Peritoneal Other Cells Blood Type Antibody Screen Crossmatch 08/14/21 08/14/21 08/14/21 22:47 22:51 23:34 WBC
[2021-08-15] MEDS: LACTATED RINGERS 1,000 ML 150 ML IV CONT (12:59)
[2021-08-15 13:01] LABS: Glucose Point of Care 326 mg/dl (65-105)
[2021-08-15] MEDS: INSULIN ASPART (*BKC) 100 UNITS/ML SUB-Q ×2 (14:11→18:56)
[2021-08-15] MEDS: carvediloL 6.25 MG TABLET PO ×2 (14:32→22:21)
[2021-08-15 14:39] LABS: Hematocrit 27.4 % (42.0-52.0); Hemoglobin 7.6 g/dL (14.0-18.0); Immature Platelet Fraction Pct 10.1 % (0.9-11.2); Mean Corpuscular HGB Conc 27.7 g/dl (32-36); Mean Corpuscular Hemoglobin 22.5 pg (26-34); Mean Corpuscular Volume 81.1 fl (80-100); Mean Platelet Volume 11.1 fl (7.4-10.4); Platelet Count Result 141 k/mm3 (150-375); Red Blood Count 3.38 M/mm3 (4.6-6.20); Red Cell Distribution Width 18.3 % (11.5-14.5)
[2021-08-15 15:15] LABS: Ammonia < 9 umol/L (9-30)
[2021-08-15] MEDS: SPIRONOLACTONE 25 MG TABLET PO (15:53)
--- NOTE | 2021-08-15 16:37 | PM.IMPN ---
Progress Note: A&P Assessment and Plan (1) Upper GI bleed: Code(s): K92.2 - Gastrointestinal hemorrhage, unspecified Status: Acute (2) Acute blood loss anemia: Code(s): D62 - Acute posthemorrhagic anemia Status: Acute (3) Cirrhosis of liver with ascites: Code(s): K74.60 - Unspecified cirrhosis of liver; R18.8 - Other ascites Status: Chronic (4) Gastroesophageal reflux disease: Code(s): K21.9 - Gastro-esophageal reflux disease without esophagitis Status: Acute (5) Portal hypertensive gastropathy: Code(s): K76.6 - Portal hypertension; K31.89 - Other diseases of stomach and duodenum Status: Acute (6) Abdominal pain: Code(s): R10.9 - Unspecified abdominal pain Status: Acute (7) Hyperglycemia: Code(s): R73.9 - Hyperglycemia, unspecified Status: Acute (8) Elevated troponin: Code(s): R77.8 - Other specified abnormalities of plasma proteins Status: Acute (9) Pericardial effusion: Code(s): I31.3 - Pericardial effusion (noninflammatory) Status: Acute (10) Volume overload: Code(s): E87.70 - Fluid overload, unspecified Status: Acute Additional Plan Hemoglobin on admission was 5.4. After 2 units of packed red blood transfusion, hemoglobin has climbed to 7.6. This appears to be remaining stable. The source of acute blood loss is GI with large varices, gastric ulcers, gastritis, gastric and duodenal AVMs. Patient underwent EGD with ablation of the AVMs and banding of the varices. He was started on Protonix drip as well as octreotide. IV antibiotics in the form of Flagyl and Rocephin have been started. Will continue the same. He has been started on IV diuretics. Coreg and spironolactone also has been added. Ammonia level is less than 9. Glucose is markedly elevated. No A1c in the chart. Troponin also elevated but felt related to the acute blood loss anemia. LFTs within normal limits. Continue sliding scale protocol. The pericardial effusion noted but this was present in April so less probably more likely chronic. SCDs for DVT prophylaxis. Etiology of the hepatitis felt to be alcohol but he does have very high MEL in 2019. Autoimmune? Will discus with GI. Subjective Date/time seen: 08/15/21 16:37 Interval history: 51yo male with cirrhosis with known portal hypertension who presents with shortness of breath, abdominal pain and melanotic stools. Assuming care. Chart reviewed. Patient has received 2 units of packed red blood cells. NG tube had minimal output. No coffee-ground noted. Patient does feel somewhat better. He continues to have epigastric pain. He tolerated the blood transfusions without symptoms. He is passing flatus but no bowel movement today. He did have a bowel movement yesterday. He has known varices and they have been banded twice last year. He denies any chest pain but does still for short of breath this morning. Exam Narrative: AF 97.7 100/54 82 17 99% ra Gen - NARD HEENT -NG tube secured. Chest -bibasilar inspiratory crackles. CV - RRR S1/S2. Telemetry showing no significant dysrhythmias Abd -soft. Obese. Firm. Positive bowel sounds. Ext -trace pedal edema Psych -anxious appearing. Skin - Warm and dry Objective Data Vital Signs Vital Signs: Vital Signs - 24 hr 08/14/21 22:30 08/14/21 22:31 08/14/21 22:45 Temperature 98.3 F Pulse Rate 111 H 110 H 108 H Respiratory Rate 22 H 19 23 H Blood Pressure 156/87 H Pulse Oximetry 100 100 99 08/14/21 23:00 08/14/21 23:01 08/15/21 00:00 Temperature Pulse Rate 115 H 115 H 112 H Respiratory Rate 20 30 H 20 Blood Pressure 155/77 H Pulse Oximetry 100 98 100 08/15/21 01:00 08/15/21 02:29 08/15/21 02:50 Temperature 98.4 F 98.4 F Pulse Rate 114 H 109 H 111 H Respiratory Rate 21 H 16 18 Blood Pressure 165/82 H 154/94 H 138/79 Pulse Oximetry 100 99 97 08/15/21 03:26 08/15/21 03:35 08/15/21 03
--- NOTE | 2021-08-15 18:44 | PC.NURSE ---
This patient, Matt Worley II, was transferred to [facility] on 08/15/21 at 1747. Personal belongings sent with patient. Report given to Berna NICOLE. Appropriate documentation sent with patient.
[2021-08-15 18:55] LABS: Glucose Point of Care 266 mg/dl (65-105)
[2021-08-15] MEDS: INSULIN GLARGINE (*BKC) 100 UNITS/ML 8 UNITS SUB-Q (20:23)
[2021-08-15 21:01] LABS: Glucose Point of Care 199 mg/dl (65-105)
[2021-08-15 21:24] LABS: Hematocrit 26.1 % (42.0-52.0); Hemoglobin 7.4 g/dL (14.0-18.0); Immature Platelet Fraction Pct 11.6 % (0.9-11.2); Mean Corpuscular HGB Conc 28.4 g/dl (32-36); Mean Corpuscular Hemoglobin 22.8 pg (26-34); Mean Corpuscular Volume 80.3 fl (80-100); Mean Platelet Volume 10.7 fl (7.4-10.4); Platelet Count Result 138 k/mm3 (150-375); Red Blood Count 3.25 M/mm3 (4.6-6.20)
[2021-08-16 00:34] LABS: Glucose Point of Care 186 mg/dl (65-105)
[2021-08-16] MEDS: MORPHINE SULFATE (*CRX) 4 MG/ML INJ IV PUSH ×4 (01:55→11:43)
[2021-08-16] MEDS: HYDROmorphone HCL INJ (*CRX) 1 MG/ML SYR IV PUSH ×3 (03:49→23:52)
[2021-08-16] MEDS: metroNIDAZOLE 500 MG/ISO 100ML 500 MG/100 ML BAG 100 MG IVPB ×4 (05:38→22:32)
[2021-08-16 05:39] LABS: Hematocrit 25.3 % (42.0-52.0); Hemoglobin 7.3 g/dL (14.0-18.0); Immature Platelet Fraction Pct 11.8 % (0.9-11.2); Mean Corpuscular HGB Conc 28.9 g/dl (32-36); Mean Corpuscular Volume 79.6 fl (80-100); Platelet Count Result 143 k/mm3 (150-375); Red Blood Count 3.18 M/mm3 (4.6-6.20); White Blood Count 4.4 K/mm3 (4.5-10.0)
[2021-08-16] MEDS: INSULIN ASPART (*BKC) 100 UNITS/ML SUB-Q ×2 (05:48→11:42)
[2021-08-16 05:49] LABS: Glucose Point of Care 204 mg/dl (65-105)
[2021-08-16 05:51] LABS: Alanine Aminotransferase 11 U/L (4-50); Albumin Level 3.6 g/dL (3.5-5.1); Alkaline Phosphatase 117 U/L (38-126); Anion Gap 5 mmol/L (8-16); Aspartate Amino Transferase 37 U/L (17-59); Bilirubin,Total 0.8 mg/dL (0.2-1.3); Blood Urea Nitrogen 15 mg/dL (9-20); Calcium 8.1 mg/dL (8.4-10.2); Carbon Dioxide 25 mmol/L (22-30); Chloride 96 mmol/L (98-107); Estimated CRCL calculation 89 ml/min; Estimated Glomerular Filt Rate > 60; Glucose 206 mg/dL (65-110); Magnesium 1.7 mg/dL (1.6-2.3); Potassium 4.1 mmol/L (3.4-5.0); Sodium 126 mmol/L (137-145)
[2021-08-16 06:00] VITALS: BP 120/76; PULSE 81; RESP 18; TEMP 36.1; O2SAT 99
[2021-08-16 06:14] LABS: Hemoglobin A1C 6.8 % (<5.7)
[2021-08-16 06:55] LABS: Folic Acid 13.9 ng/mL (2.76->20)
[2021-08-16 07:27] LABS: Glucose Point of Care 127 mg/dl (65-105)
--- NOTE | 2021-08-16 07:46 | WPDGIPROGNO ---
Progress Note: A&P Assessment and Plan (1) Acute GI bleeding: Code(s): K92.2 - Gastrointestinal hemorrhage, unspecified Status: Acute Assessment and Plan: 08/15 We have started him on pantoprazole and also octreotide drip. he will be scheduled for EGD today. He has had transfusion with 2 units of blood with hemoglobin now 7.6. 3/ his counts are stable. The bleeding seems to have stopped. I told that I am not sure whether he bled from varices but we did see active bleeding from a small AVM in the duodenal bulb. Also, because of the multiple gastric ulcers, told that it is imperative that he take tramadol with food, if he takes it at all (2) Abdominal ascites: Qualifiers: Ascites type: due to alcoholic hepatitis Qualified Code(s): K70.11 - Alcoholic hepatitis with ascites Code(s): R18.8 - Other ascites Status: Acute Assessment and Plan: CT shows minimal ascites. This again despite the fact that he seems to have severe pain and complaints of about the abdomen being tight. 08/16 today he showed me that his umbilicus has turned into an outie and is quite painful. We never been able to explain why he has severe and constant pain with minimal ascites and a normal CT scan on multiple occasions. Is possible I suppose that he has SBP, although his pain was present I believe before he had his 1st paracentesis and he has never had tense ascites which is more commonly associated withSBP. nevertheless, with start him on ceftriaxone, partly because he is a cirrhotic with a GI bleed, but also because of the possibility of SBP I will send him home on Cipro 500 mg twice a day for 7 more days (3) Chronic anemia: Code(s): D64.9 - Anemia, unspecified Status: Acute Assessment and Plan: One year ago his hemoglobin was slightly low at 12.3 but for the past 6 months it has been closer to 8. now, with hemoglobin of 5.4, he obviously has had acute blood loss. I discussed with him his visit with the manager wealth management at [facility]. He was disappointed that he was told to come back in 6 months and not sooner. (4) Cirrhosis: Qualifiers: Ascites presence: with ascites Hepatic cirrhosis type: alcoholic cirrhosis Qualified Code(s): K70.31 - Alcoholic cirrhosis of liver with ascites Code(s): K74.60 - Unspecified cirrhosis of liver Status: Acute Assessment and Plan: He just recently got connected with the manager wealth management at [facility], Dr. Jasso. He saw him once in May and was told to come back in 6 months. They did switch him from nadolol to carvedilol. he has quit drinking I believe all together. (5) Tobacco use: Code(s): Z72.0 - Tobacco use Status: Chronic Assessment and Plan: Former smoker (6) Esophageal varices: Code(s): I85.00 - Esophageal varices without bleeding Status: Acute Assessment and Plan: these were last banded about 5 months ago. I suspect he is bleeding again from varices. We have started him on octreotide and plan on performing EGD short 08/16 1 varix was banded yesterday. there was no clear-cut indication that he has been bleeding from varices, such as a red spot, but I did band the largest varix. His manager wealth management prefers him to be on carvedilol rather than Nadolol and I will continue that. I have discontinued octreotide. Will switch pantoprazole to p.o.. I will advance his diet. Possibly he could be discharged later today (7) Chronic pain: Code(s): G89.29 - Other chronic pain Status: Acute Assessment and Plan: 08/16 since I 1st saw him last summer, he has had constant abdominal pain and always requesting pain medication. Each time he comes to the emergency room he tells the physician that is 10/10 and is usually given morphine or something like that. I have been worried that he is becoming dependent on pain medication as we cannot find any objective reason for him t
[2021-08-16 08:31] VITALS: PULSE 90
[2021-08-16] MEDS: carvediloL 6.25 MG TABLET PO ×2 (08:31→20:19)
[2021-08-16] MEDS: SPIRONOLACTONE 50 MG TABLET 100 MG PO (08:32)
[2021-08-16] MEDS: PANTOPRAZOLE 40 MG TABLET PO ×2 (08:33→20:20)
[2021-08-16] MEDS: FUROSEMIDE INJ 40 MG/4 ML VIAL IV PUSH (08:33)
[2021-08-16 11:25] LABS: Glucose Point of Care 265 mg/dl (65-105)
--- NOTE | 2021-08-16 13:19 | WPDANESPN ---
Anes - Prog Note Post-Op Date/Time: 08/16/21 13:19 Cardiovascular status: normal Respiratory status: normal Airway patency: baseline Mental status: baseline Post-Op hydration status: normal Vital Signs: Last Vital Signs Temp 36.1 C L 08/16/21 06:00 Pulse 90 08/16/21 08:31 Resp 18 08/16/21 06:00 BP 120/76 08/16/21 06:00 Pulse Ox 99 08/16/21 06:00 Pain Score (VAS): 0 I/O: Intake & Output 08/15/21 08/16/21 08/16/21 23:59 07:59 15:59 Intake Total 1100 900 480 Output Total 450 600 Balance 650 300 480 Laboratory Tests 08/16/21 05:31 08/16/21 05:31 08/15/21 08/15/21 08/15/21 14:24 14:51 18:52 WBC 4.0 L RBC 3.38 L Hgb 7.6 L Hct 27.4 L MCV 81.1 MCH 22.5 L MCHC 27.7 L RDW 18.3 H Plt Count 141 L MPV 11.1 H % Immature Plt Fraction 10.1 Sodium Potassium Chloride Carbon Dioxide Anion Gap BUN Creatinine Estim Creat Clear Calc Estimated GFR Glucose POC Capillary Glucose 266 H Hemoglobin A1c Calcium Magnesium Total Bilirubin AST ALT Alkaline Phosphatase Ammonia < 9 L Total Protein Albumin Vitamin B12 Folate 08/15/21 08/15/21 08/16/21 20:15 21:09 00:32 WBC 4.0 L RBC 3.25 L Hgb 7.4 L Hct 26.1 L MCV 80.3 MCH 22.8 L MCHC 28.4 L RDW 18.0 H Plt Count 138 L MPV 10.7 H % Immature Plt Fraction 11.6 H Sodium Potassium Chloride Carbon Dioxide Anion Gap BUN Creatinine Estim Creat Clear Calc Estimated GFR Glucose POC Capillary Glucose 199 H 186 H Hemoglobin A1c Calcium Magnesium Total Bilirubin AST ALT Alkaline Phosphatase Ammonia Total Protein Albumin Vitamin B12 Folate 08/16/21 08/16/21 08/16/21 05:31 05:31 05:31 WBC 4.4 L RBC 3.18 L Hgb 7.3 L Hct 25.3 L MCV 79.6 L MCH 23.0 L MCHC 28.9 L RDW 18.0 H Plt Count 143 L MPV 11.0 H % Immature Plt Fraction 11.8 H Sodium 126 L Potassium 4.1 Chloride 96 L Carbon Dioxide 25 Anion Gap 5 L BUN 15 Creatinine 0.90 Estim Creat Clear Calc 89 Estimated GFR > 60 Glucose 206 H POC Capillary Glucose Hemoglobin A1c 6.8 H Calcium 8.1 L Magnesium 1.7 Total Bilirubin 0.8 AST 37 ALT 11 Alkaline Phosphatase 117 Ammonia Total Protein 6.0 L Albumin 3.6 Vitamin B12 410.0 Folate 13.9 08/16/21 08/16/21 08/16/21 05:47 07:18 11:22 WBC RBC Hgb Hct MCV MCH MCHC RDW Plt Count MPV % Immature Plt Fraction Sodium Potassium Chloride Carbon Dioxide Anion Gap BUN Creatinine Estim Creat Clear Calc Estimated GFR Glucose POC Capillary Glucose 204 H 127 H 265 H Hemoglobin A1c Calcium Magnesium Total Bilirubin AST ALT Alkaline Phosphatase Ammonia Total Protein Albumin Vitamin B12 Folate Post-procedural complaints: none Patient Feedback: Patient satisfied with anesthetic care.
[2021-08-16] MEDS: HYDROcodone/acetaminophen (*CRX) 5-325 MG TABLET 1 TAB PO ×2 (16:02→22:33)
[2021-08-16 16:27] LABS: Glucose Point of Care 181 mg/dl (65-105)
--- NOTE | 2021-08-16 16:38 | PM.IMPN ---
Progress Note: A&P Assessment and Plan (1) Upper GI bleed: Code(s): K92.2 - Gastrointestinal hemorrhage, unspecified Status: Acute (2) Acute blood loss anemia: Code(s): D62 - Acute posthemorrhagic anemia Status: Acute (3) Cirrhosis of liver with ascites: Code(s): K74.60 - Unspecified cirrhosis of liver; R18.8 - Other ascites Status: Chronic (4) Gastroesophageal reflux disease: Code(s): K21.9 - Gastro-esophageal reflux disease without esophagitis Status: Acute (5) Portal hypertensive gastropathy: Code(s): K76.6 - Portal hypertension; K31.89 - Other diseases of stomach and duodenum Status: Acute (6) Abdominal pain: Code(s): R10.9 - Unspecified abdominal pain Status: Acute (7) Hyperglycemia: Code(s): R73.9 - Hyperglycemia, unspecified Status: Acute (8) Elevated troponin: Code(s): R77.8 - Other specified abnormalities of plasma proteins Status: Acute (9) Pericardial effusion: Code(s): I31.3 - Pericardial effusion (noninflammatory) Status: Acute (10) Volume overload: Code(s): E87.70 - Fluid overload, unspecified Status: Acute (11) Abdominal ascites: Qualifiers: Ascites type: due to alcoholic hepatitis Qualified Code(s): K70.11 - Alcoholic hepatitis with ascites Code(s): R18.8 - Other ascites Status: Acute (12) Hyponatremia: Code(s): E87.1 - Hypo-osmolality and hyponatremia Status: Acute Additional Plan Patient present with SOB and found to hav a hemoglobin of 5.4. He was started on Protonix drip as well as octreotide. After 2 units of packed red blood transfusion, hemoglobin climbed to 7 range. This appears to be remaining stable. The source of acute blood loss is GI with large varices, gastric ulcers, gastritis, gastric and duodenal AVMs. Patient underwent EGD with ablation of the AVMs and banding of the varices. IV antibiotics in the form of Flagyl and Rocephin were started. He has cirrhosis felt related to alcohol but he does have very high MEL in 2020. Autoimmune? Will discus with GI. He was started on IV diuretics. Coreg and spironolactone also added. Ammonia level is less than 9. Glucose was markedly elevated. A1c was 6.8. Lantus started. Monitor with sliding scale protocol. Troponin also elevated but felt related to the severe acute blood loss anemia. LFTs within normal limits. Na dropped to 126. The pericardial effusion noted but this was present in April so less probably more likely chronic. SCDs for DVT prophylaxis. Diet advanced. He has been requiring IV narcotics. Will wean to oral medications and monitor. Repeat Na level. Continue Lasix to improve his fluid status. Home tomorrow if abd pain remains okay. Repeat lipase. Subjective Date/time seen: 08/16/21 16:38 Interval history: 51yo male with cirrhosis with known portal hypertension who presents with shortness of breath, abdominal pain and melanotic stools. Patient feels better. Still with nausea this morning. Still with abd pain but better overall. Eating okay. No CP or SOB. Edema is somewhat chronic and present prior to admission. Exam Narrative: AF 96.9 120/76 90 18 99% ra Gen - NARD Chest - few basilar inspiratory crackles. CV - RRR S1/S2 Abd -soft. mild diffuse tenderness. +BS Ext - 1+ pedal edema Psych - normal mood Skin - Warm and dry Objective Data Vital Signs Vital Signs: Vital Signs - 24 hr 08/15/21 18:40 08/15/21 20:25 08/15/21 21:53 Temperature 97.6 F 97 F L Pulse Rate 79 84 Respiratory Rate 18 18 Blood Pressure 125/79 143/80 H Pulse Oximetry 99 98 99 08/15/21 22:21 08/16/21 06:00 08/16/21 08:31 Temperature 96.9 F L Pulse Rate 84 81 90 Respiratory Rate 18 Blood Pressure 120/76 Pulse Oximetry 99 Intake/Output Intake/Output: Intake & Output 08/13/21 08/14/21 08/15/21 08/16/21 23:59 23:59 23:59 23:59 Intake Total 291
[2021-08-16 17:20] LABS: Lipase 67 U/L (23-300); Sodium 130 mmol/L (137-145)
[2021-08-16] MEDS: INSULIN GLARGINE (*BKC) 100 UNITS/ML 8 UNITS SUB-Q (20:31)
[2021-08-16 21:51] VITALS: BP 127/72; PULSE 85; RESP 18; TEMP 36.8; O2SAT 98
[2021-08-16] MEDS: ONDANSETRON INJ 4 MG/2 ML VIAL IV PUSH (22:32)
[2021-08-17 00:12] LABS: Glucose Point of Care 233 mg/dl (65-105)
[2021-08-17 00:13] LABS: Glucose Point of Care 183 mg/dl (65-105)
[2021-08-17] MEDS: HYDROcodone/acetaminophen (*CRX) 5-325 MG TABLET 1 TAB PO ×2 (04:21→10:13)
[2021-08-17] MEDS: metroNIDAZOLE 500 MG/ISO 100ML 500 MG/100 ML BAG 100 MG IVPB ×2 (04:51→10:19)
[2021-08-17 05:39] LABS: Hematocrit 25.6 % (42.0-52.0); Hemoglobin 7.3 g/dL (14.0-18.0); Mean Corpuscular HGB Conc 28.5 g/dl (32-36); Mean Corpuscular Hemoglobin 22.3 pg (26-34); Mean Corpuscular Volume 78.3 fl (80-100); Mean Platelet Volume 11.6 fl (7.4-10.4); Platelet Count Result 142 k/mm3 (150-375); Red Blood Count 3.27 M/mm3 (4.6-6.20); White Blood Count 4.6 K/mm3 (4.5-10.0)
[2021-08-17 05:49] LABS: Alanine Aminotransferase 12 U/L (4-50); Albumin Level 3.4 g/dL (3.5-5.1); Alkaline Phosphatase 113 U/L (38-126); Anion Gap 5 mmol/L (8-16); Aspartate Amino Transferase 37 U/L (17-59); Bilirubin,Total 0.4 mg/dL (0.2-1.3); Blood Urea Nitrogen 18 mg/dL (9-20); Carbon Dioxide 27 mmol/L (22-30); Chloride 97 mmol/L (98-107); Estimated CRCL calculation 74 ml/min; Estimated Glomerular Filt Rate > 60; Glucose 157 mg/dL (65-110); Magnesium 1.7 mg/dL (1.6-2.3); Potassium 3.9 mmol/L (3.4-5.0); Sodium 129 mmol/L (137-145)
[2021-08-17 05:55] VITALS: BP 121/67; PULSE 77; RESP 18; TEMP 36.3; O2SAT 95
[2021-08-17] MEDS: HYDROmorphone HCL INJ (*CRX) 1 MG/ML SYR IV PUSH (06:22)
[2021-08-17 06:55] LABS: Glucose Point of Care 176 mg/dl (65-105)
[2021-08-17 07:58] LABS: Glucose Point of Care 173 mg/dl (65-105)
[2021-08-17 08:00] VITALS: BP 122/64; PULSE 66; PULSE 88; RESP 18; TEMP 36.7; O2SAT 91; O2SAT 96
[2021-08-17 08:03] VITALS: PULSE 66
[2021-08-17] MEDS: carvediloL 6.25 MG TABLET PO (08:03)
[2021-08-17] MEDS: PANTOPRAZOLE 40 MG TABLET PO (08:03)
[2021-08-17] MEDS: SPIRONOLACTONE 50 MG TABLET 100 MG PO (08:05)
[2021-08-17] MEDS: FUROSEMIDE INJ 40 MG/4 ML VIAL IV PUSH (08:06)
[2021-08-17 09:53] VITALS: O2SAT 91
--- NOTE | 2021-08-17 10:36 | PM.DS ---
DS: Admitting Diagnosis Discharge Date 08/17/21 Admitting Diagnosis Shortness of breath DS: Discharge Diagnosis Discharge Diagnosis (1) Upper GI bleed: Code(s): K92.2 - Gastrointestinal hemorrhage, unspecified Status: Acute (2) Acute blood loss anemia: Code(s): D62 - Acute posthemorrhagic anemia Status: Acute (3) Cirrhosis of liver with ascites: Code(s): K74.60 - Unspecified cirrhosis of liver; R18.8 - Other ascites Status: Chronic (4) Gastroesophageal reflux disease: Code(s): K21.9 - Gastro-esophageal reflux disease without esophagitis Status: Acute (5) Portal hypertensive gastropathy: Code(s): K76.6 - Portal hypertension; K31.89 - Other diseases of stomach and duodenum Status: Acute (6) Abdominal pain: Code(s): R10.9 - Unspecified abdominal pain Status: Acute (7) Hyperglycemia: Code(s): R73.9 - Hyperglycemia, unspecified Status: Acute (8) Elevated troponin: Code(s): R77.8 - Other specified abnormalities of plasma proteins Status: Acute (9) Pericardial effusion: Code(s): I31.3 - Pericardial effusion (noninflammatory) Status: Acute (10) Volume overload: Code(s): E87.70 - Fluid overload, unspecified Status: Acute DS: Summary Hospital Course Reason for hospitalization: 51yo male with cirrhosis with known portal hypertension who presents with shortness of breath, abdominal pain and melanotic stools. Please see H&P for details. Hospital Course: Patient present with SOB and found to have a hemoglobin of 5.4. He was started on Protonix drip as well as octreotide. After 2 units of packed red blood transfusion, hemoglobin climbed to 7 range and stable. The source of acute blood loss is GI with large varices, gastric ulcers, gastritis, gastric and duodenal AVMs. Patient underwent EGD with ablation of the AVMs and banding of the varices. IV antibiotics in the form of Flagyl and Rocephin were started for possible SBP but only minimal ascites by CT. He has chronic persistent abdominal pain with concern for drug seeking behavior. He has cirrhosis felt related to autoimmune with very high MEL in 2020. He was started on IV diuretics. Coreg resumed and spironolactone dose advanced. Ammonia level is less than 9. Glucose was markedly elevated but A1c was 6.8. Lantus started and he was monitored with sliding scale protocol. Troponin also mildly elevated but flat felt related to the severe acute blood loss anemia. LFTs and Lipase within normal limits. The pericardial effusion noted but this was present in April so less probably more likely chronic. Diet advanced and he toelrated this well. Patient overall did well and was able to be discharged home on 08/17/21. Status at Discharge Cognitive/behavioral status at discharge: Stable Time Spent with Patient Time attestation: Total time spent providing and/or coordinating discharge services: 34 minutes Time spent: Greater than 30 minutes Exam Narrative: AF 97.3 121/67 66 18 91% ra Gen - NARD Chest - CTA bilaterally, nml RR CV - RRR S1/S2 Abd -soft. mild diffuse tenderness. +BS Ext - trace-1+ pedal edema. Negative Homans sign Psych - normal mood Skin - Warm and dry DS: Data Data Completed and Pending Labs on day of discharge: Labs from last 24 hours 08/17/21 08/17/21 08/17/21 07:54 06:21 05:17 WBC RBC Hgb Hct MCV MCH MCHC RDW Plt Count MPV Sodium 129 L Potassium 3.9 Chloride 97 L Carbon Dioxide 27 Anion Gap 5 L BUN 18 Creatinine 1.10 Estim Creat Clear Calc 74 Estimated GFR > 60 Glucose 157 H POC Capillary Glucose 173 H 176 H Calcium 8.0 L Magnesium 1.7 Total Bilirubin 0.4 AST 37 ALT 12 Alkaline Phosphatase 113 Total Protein 6.0 L Albumin 3.4 L Lipase MEL Screen 08/17/21 08/16/21 08/16/21 05:17 23:57 20:28 WB
[2021-08-17 11:41] LABS: Glucose Point of Care 249 mg/dl (65-105)
[2021-08-17] MEDS: INSULIN ASPART (*BKC) 100 UNITS/ML SUB-Q (11:44)
[2021-08-22 16:33] LABS: ANA Pattern Nuclear, Nucleolar; ANA Titer >=1:1280 (Negative); Anti Nuclear Antibody Pattern Nuclear, Speckled
--- NOTE | 2021-08-27 09:25 | PC.NURSE ---
MEL screen is positive. 1:320. Titer 2 is >=1:1280, nuclear speckled and nuclear nucleolar. Dr. Parra aware. faxed to Opal Vásquez, [place].
== END 2021-08-17 13:00 | disposition home or self-care (01) ==
LOC: ANHED 08-15 00:06 → ANHICU 08-15 08:06 → ANH3MEDSUR 08-16 08:20 → ANHICU 08-22 16:44
PROVIDERS: Internal Medicine; Internal Medicine Gastroenterology; Admitting Provider Internal Medicine; Emergency Provider Emergency Medicine; PCP Physician Assistant; Visit Provider Internal Medicine
PROC: 0DJ08ZZ Inspection of Upper Intestinal Tract, Via Natural or Artificial Opening Endoscopic (ICD-10-PCS; CPT 43235; principal; 2021-08-15 13:00)
DX: K31.811 Angiodysplasia of stomach and duodenum with bleeding (principal); K70.31 Alcoholic cirrhosis of liver with ascites; I85.10 Secondary esophageal varices without bleeding; D62 Acute posthemorrhagic anemia; K72.90 Hepatic failure, unspecified without coma; K76.6 Portal hypertension; F10.21 Alcohol dependence, in remission; K25.9 Gastric ulcer, unspecified as acute or chronic, without hemorrhage or perforation; K29.70 Gastritis, unspecified, without bleeding; K21.9 Gastro-esophageal reflux disease without esophagitis; E87.1 Hypo-osmolality and hyponatremia; E87.70 Fluid overload, unspecified; I10 Essential (primary) hypertension; I31.3 Pericardial effusion (noninflammatory); C61 Malignant neoplasm of prostate; R10.9 Unspecified abdominal pain; R77.8 Other specified abnormalities of plasma proteins; R73.9 Hyperglycemia, unspecified; K31.89 Other diseases of stomach and duodenum; Z90.49 Acquired absence of other specified parts of digestive tract; Z87.442 Personal history of urinary calculi; Z86.73 Personal history of transient ischemic attack (TIA), and cerebral infarction without residual deficits; Z87.891 Personal history of nicotine dependence
CPT/HCPCS: 43244; 43270; 43239; 36415; 36430; 71046; 74177; 80053; 82040; 82140; 82607; 82746; 82948; 83036; 83690; 83735; 83880; 84100; 84295; 84484; 85014; 85018; 85025; 85027; 85055; 85610; 85730; 86038; 86039; 86850; 86900; 86901; 86920; 87081; 89051; 93005; 93308; 96361; 96365; 96366; 96367; 96372; 96375; 96376; 99285; A9270; C9113; G0378; J0500; J0696; J1170; J1815; J1940; J2270; J2354; J2405; J2704; J3010; J7040; J7050; J7060; J7120; P9016; Q9967

== ENCOUNTER 2021-09-02 09:53 | Outpatient (CLI) | payer OTHER, SELFPAY ==
[2021-09-02 10:11] LABS: Basophils Percent Auto 0.6 % (0.2-1.2); Eosinophils Absolute Auto 0.1 K/mm3 (0-0.3); Eosinophils Percent Auto 2.6 % (0-4.4); Hematocrit 29.4 % (42.0-52.0); Immature Granulocyte Absolute 0.01 K/mm3 (0.00-0.031); Immature Granulocyte Percent A 0.3 % (0-0.5); Immature Platelet Fraction Pct 9.3 % (0.9-11.2); Lymphocytes Absolute Auto 0.69 K/mm3 (0.9-3.2); Lymphocytes Percent Auto 19.7 % (18.3-44.2); Mean Corpuscular HGB Conc 27.2 g/dl (32-36); Mean Corpuscular Hemoglobin 21.4 pg (26-34); Mean Corpuscular Volume 78.6 fl (80-100); Mean Platelet Volume 10.5 fl (7.4-10.4); Monocytes Absolute Auto 0.6 K/mm3 (0.1-0.6); Monocytes Percent Auto 16.9 % (2.6-8.5); Neutrophils Absolute Auto 2.1 K/mm3 (1.3-6.7); Neutrophils Percent Auto 59.9 % (45.5-73.1); Platelet Count Result 100 k/mm3 (150-375); Red Blood Count 3.74 M/mm3 (4.6-6.20); Red Cell Distribution Width 18.4 % (11.5-14.5); White Blood Count 3.5 K/mm3 (4.5-10.0)
[2021-09-02 10:20] LABS: Alanine Aminotransferase 10 U/L (4-50); Albumin Level 3.9 g/dL (3.5-5.1); Alkaline Phosphatase 145 U/L (38-126); Ammonia < 9 umol/L (9-30); Anion Gap 6 mmol/L (8-16); Aspartate Amino Transferase 31 U/L (17-59); Bilirubin,Total 0.8 mg/dL (0.2-1.3); Blood Urea Nitrogen 9 mg/dL (9-20); Calcium 8.6 mg/dL (8.4-10.2); Carbon Dioxide 29 mmol/L (22-30); Chloride 98 mmol/L (98-107); Estimated Glomerular Filt Rate > 60; Glucose 216 mg/dL (65-110); Potassium 4.2 mmol/L (3.4-5.0); Sodium 133 mmol/L (137-145)
[2021-09-02 10:49] LABS: Anisocytosis 1+ (NORMAL); Hypochromasia 2+ (NORMAL); Ovalocytes 2+ (NORMAL); Platelet Estimate Decreased (Adequate); Tear Drop Cells 1+ (NORMAL)
== END 2021-09-02 09:54 | disposition home or self-care (01) ==
LOC: ANHLAB 09:55
PROVIDERS: PCP Physician Assistant; Visit Provider Physician Assistant
DX: E11.69 Type 2 diabetes mellitus with other specified complication (principal); E78.5 Hyperlipidemia, unspecified; K70.31 Alcoholic cirrhosis of liver with ascites
CPT/HCPCS: 36415; 80053; 82140; 84443; 85025; 85055

== ENCOUNTER 2021-09-13 02:20 | Observation (INO) | payer OTHER, SELFPAY ==
[2021-09-13] VITALS (16 sets, daily range): BP systolic 129–170; BP diastolic 88–108; PULSE 92–111; RESP 15–28; TEMP 36.3–36.8; O2SAT 94–100; BMI 33.3; BMI 33.2
--- NOTE | 2021-09-13 | ECHO_ITS ---
Patient Info Name: Matt Worley Age: 51 years : 1970 Gender: Male Ht: 65 in Wt: 189 lbs BSA: 2.01 m2 HR: 103 bpm BP: 166 / 101 mmHg Heart Rhythm: Sinus Rhythm, Tachycardia Exam Date: 09/13/2021 8:35 AM Exam Location: [facility] Patient Status: Outpatient Admit Date: 09/13/2021 Staff Ordering Physician: Eun Proctor MD Organ Assembler: Nehemiah Aguilera RDCS, RT Attending Provider: Dima Buenrostro MD Referring Physician: Esthela ROYAL; Exam Type: CA echo doppler color flow Study Info Indications R06.00 - Dyspnea, unspecified Complete two-dimensional, color flow and Doppler transthoracic echocardiogram is performed. Strain analysis performed. Summary 1. Left ventricular chamber dimension is normal. 2. Left ventricular systolic function is lower limits of normal, estimated at 50-55%. 3. There is mildly increased left ventricular wall thickness. 4. The left ventricular diastolic function is grade III diastolic dysfunction. 5. Global longitudinal strain is moderately elevated at -10 %. 6. Right ventricular systolic function is mildly reduced. 7. Right ventricular chamber dimension is normal. 8. Left atrial chamber dimension is moderately enlarged. 9. There is mild mitral valve regurgitation. 10. There is moderate tricuspid valve regurgitation. 11. Severe pulmonary hypertension, estimated pulmonary arterial systolic pressure is 64 mmHg. 12. There is a small anterior pericardial effusion and larger posterior effusion measured at 0.8cm and 2.4cm, respectively. No tamponade physiology identified. 13. Dilated inferior vena cava with <50% collapse upon inspiration consistent with significantly elevated right atrial pressure, 15 mmHg. Left Ventricle Left ventricular chamber dimension is normal. Left ventricular systolic function is lower limits of normal, estimated at 50-55%. There is mildly increased left ventricular wall thickness. The left ventricular diastolic function is grade III diastolic dysfunction. Global longitudinal strain is moderately elevated at -10 %. Right Ventricle Right ventricular chamber dimension is normal. Right ventricular systolic function is mildly reduced. Left Atria Left atrial chamber dimension is moderately enlarged. Right Atria Right atrial chamber dimension is mildly enlarged. Aortic Valve The aortic valve is not well visualized. There is no aortic valve stenosis. There is no aortic valve regurgitation. Pulmonic Valve The pulmonic valve is not well visualized. There is trace pulmonic regurgitation. Mitral Valve The mitral valve has thickened leaflets. There is mild mitral valve regurgitation. The mitral valve annulus is mildly calcified. Tricuspid Valve The tricuspid valve leaflets are normal. There is moderate tricuspid valve regurgitation. Severe pulmonary hypertension, estimated pulmonary arterial systolic pressure is 64 mmHg. Pericardium/Pleural The pericardium appears normal. There is a small anterior pericardial effusion and larger posterior effusion measured at 0.8cm and 2.4cm, respectively. No tamponade physiology identified. Inferior Vena Cava Dilated inferior vena cava with <50% collapse upon inspiration consistent with significantly elevated right atrial pressure, 15 mmHg. Aorta The aortic root size at the sinus of Valsalva is normal. Left Ventricular Outflow Tract Name V
--- NOTE | ~2021-09-13 | CT_ITS ---
EXAMINATION: CT abdomen pelvis w con DATE: 09/13/2021 03:41 INDICATION: Vomiting and abdominal pain TECHNIQUE: Computed tomography (CT) of the abdomen and pelvis was performed with 100 mL Omnipaque-350 intravenous contrast. Automated exposure control and iterative reconstruction technique were employe d. The dose-length product was 812.77 mGy-cm. COMPARISON: 08/14/2021 FINDINGS: Be medically and moderate-sized pericardial effusion. Peripheral smooth septal line thickening at the bilateral lung bases consistent with mild pulmonary edema. No pleural effusion. Mild paraesophageal varices at the distal esophagus. Mild hepatic steatosis with liver surface nodularity consistent with cirrhosis. Cholecystectomy clips at the bladder fossa. Splenomegaly measuring 17.6 cm in length cons istent with portal venous hypertension. Pancreas appears normal however there is edema centered about the head of the pancreas which extends into the mesentery which may be related to the cirrhosis and portal venous hypertension but could not exclude acute interstitial pancreatitis. Bilateral adrenal g lands and right kidney are normal. 2 mm nonobstructing stone at the lower pole of the left kidney. Shah rgical clips and suture line at the tip the cecum consistent with prior appendectomy. Bowels are norm al. Bladder is normal. Small amount of perihepatic ascites and trace amount of ascites scattered thro ughout the remainder of the abdomen and pelvis. No pathologically enlarged abdominal or pelvic lympha denopathy. Chronic or thoracic compression fractures with 20% anterior vertebral body height loss at T10 and T12 and 40% anterior vertebral body height loss at T11. IMPRESSION: 1. Cirrhosis and portal venous hypertension with splenomegaly, paraesophageal varices, mesenteric james ma and small amount of ascites. 2. MRI of the head of the pancreas likely related to liver disease but would correlate with amylase a nd lipase levels to exclude acute interstitial pancreatitis. 3. Cardiomegaly and moderate-sized pericardial effusion. 4. 2 mm nonobstructing left renal stone. Reviewed, dictated and finalized at location A. IMPRESSION: 1. Cirrhosis and portal venous hypertension with splenomegaly, paraesophageal v arices, mesenteric edema and small amount of ascites. 2. MRI of the head of the pancreas likely related to liver disease but would co rrelate with amylase and lipase levels to exclude acute interstitial pancreatit is. 3. Cardiomegaly and moderate-sized pericardial effusion. 4. 2 mm nonobstructing left renal stone.
--- NOTE | ~2021-09-13 | XR_ITS ---
EXAMINATION: XR chest 1V portable DATE: 09/13/2021 02:41 INDICATION: Dyspnea TECHNIQUE: frontal view of the chest was obtained. COMPARISON: Chest radiograph dated 08/14/2021 FINDINGS: Again seen is moderately enlarged and globular appearing cardiac silhouette. Pulmonary vascular conge stion. Mild interstitial pattern in the right lower lung zone with appearance on CT consistent with m ild pulmonary edema. No pleural effusion or pneumothorax. IMPRESSION: 1. Moderately enlarged cardiac silhouette which corresponds to combination of both cardiomegaly and a moderate-sized pericardial effusion on subsequent CT . 2. Pulmonary vascular congestion and mild pulmonary edema and right lower lung zone. Reviewed, dictated and finalized at location A. IMPRESSION: 1. Moderately enlarged cardiac silhouette which corresponds to combination of b oth cardiomegaly and a moderate-sized pericardial effusion on subsequent CT . 2. Pulmonary vascular congestion and mild pulmonary edema and right lower lung zone.
--- NOTE | 2021-09-13 02:31 | ECG_ITS ---
Measurements Intervals [place] Rate: 98 P: 50 NE: 171 QRS: 54 QRSD: 84 T: 45 QT: 363 QTc: 465 Interpretive Statements SINUS RHYTHM POSSIBLE LEFT ATRIAL ENLARGEMENT [-0.1mV P WAVE IN V1/V2] POSSIBLE RIGHT VENTRICULAR CONDUCTION DELAY [RSR (QR) IN V1/V2] NONSPECIFIC ST AND T-WAVE ABNORMALITY BORDERLINE ECG COMPARED TO ECG 08/14/2021 22:41:07 SINUS RHYTHM NOW PRESENT Electronically Signed On 09-13-2021 17:08:37 CDT by Rylan Sams M.D.
--- NOTE | 2021-09-13 02:37 | ED.SOB ---
HPI - SOB/Dyspnea General Chief Complaint: Shortness of Breath/Dyspnea Stated Complaint: Hemoptysis, SOB Time Seen by Provider: 09/13/21 02:30 Source: patient and EMS Mode of arrival: EMS Limitations: no limitations History of Present Illness HPI Narrative: The patient is a 51-year-old male with past medical history significant for hepatic cirrhosis, GI bleed with esophageal varices status post banding, tobacco dependence, presenting to emergency department for evaluation of multiple complaints. Patient reports acute onset shortness of breath, hematemesis this evening approximately 2 hours ago. Patient reports abdominal pain which is diffuse throughout his abdomen. Described as aching in nature. Patient denies any current chest pain. He denies any back pain. He reports melanotic stool which is chronic for him. Patient denies fever, chills. Denies cough. Denies hemoptysis. Patient denies dysuria or hematuria. 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 Patient was managed by her hospitalist service and Dr. Guerin. The patient states he has not had a paracentesis in quite some time. Denies any severe abdominal distention. Related Data Home Medications Medication Instructions Recorded Confirmed carvedilol 6.25 mg PO Q12H 05/27/21 08/15/21 furosemide 40 mg PO DAILY 05/27/21 08/15/21 duloxetine 30 mg PO DAILY 08/15/21 08/15/21 Allergies Allergy/AdvReac Type Severity Reaction Status Date / Time No Known Allergies Allergy Verified 09/13/21 02:29 Review of Systems Review of Systems: CONSTITUTIONAL: Denies fever, chills, or sweats. CARDIOVASCULAR: Denies chest pain, palpitations, or edema. RESPIRATORY: Denies cough, reports shortness of breath GASTROINTESTINAL: Reports abdominal pain, nausea, vomiting, hematemesis, melanotic stool GENITOURINARY: Denies dysuria or hematuria. SKIN: Denies rash or itching. MUSCULOSKELETAL: Denies back pain, joint pain, or myalgia. NEUROLOGIC: Denies headache, numbness, or weakness. [facility] Past Medical History Medical History Arthritis Chronic anemia Cirrhosis of liver with ascites CVA (cerebral vascular accident) 2004 Gastric ulcer Gastroesophageal reflux disease History of kidney stones Hypertension Pericardial effusion Noted on CT and echocardiogram in August 2020. No evidence of tamponade. Portal hypertensive gastropathy Noted on endoscopy on 03/23/[address] Duran. Prostate cancer Status post radiation seed implantation. Prostate tumor Smoker Spontaneous bacterial peritonitis (04/2020) Testicular cancer Tobacco use Surgical History Surgical History History of appendectomy History of cholecystectomy History of inguinal hernia repair History of lithotripsy History of repair of right rotator cuff History of testicular surgery benign. Family History Family History Mother Family history of malignant neoplasm of breast in first degree relative Breast cancer Father Acute myocardial infarction Hypertension Heart disease Other Diabetes mellitus Maternal Unkle Other Family history of malignant neoplasm Social History Social History Social History: Surrogate decision maker: : Myra Worley 1st Marnie Washington, Aunt 2nd Code status: Full code Patient lives with his and son. He mentioned that his is battling stage 4 cancer. They have four children, which his youngest just graduated from [employer] and 2 of his daughters are striving to become MDs. Smoking packs per day: 1 Smoking cigarettes per day: 20.0 Years smoked: 25 Smoking pack-years: 25.00 Smoking status: Former smoker Tobacco type: cigarettes Second hand tobacco smoke exposure: Yes (From
[2021-09-13 02:54] LABS: Glucose Point of Care 253 mg/dl (65-105)
[2021-09-13] MEDS: PANTOPRAZOLE SODIUM IV 40 MG VIAL IV PUSH (03:05)
[2021-09-13] MEDS: ONDANSETRON INJ 4 MG/2 ML VIAL IV PUSH (03:05)
[2021-09-13 03:07] LABS: Basophils Percent Auto 0.6 % (0.2-1.2); Eosinophils Absolute Auto 0.1 K/mm3 (0-0.3); Eosinophils Percent Auto 2.3 % (0-4.4); Hematocrit 30.1 % (42.0-52.0); Immature Granulocyte Absolute 0.01 K/mm3 (0.00-0.031); Immature Granulocyte Percent A 0.3 % (0-0.5); Immature Platelet Fraction Pct 9.4 % (0.9-11.2); Lymphocytes Percent Auto 22.5 % (18.3-44.2); Mean Corpuscular HGB Conc 26.6 g/dl (32-36); Mean Corpuscular Hemoglobin 20.7 pg (26-34); Mean Corpuscular Volume 77.8 fl (80-100); Mean Platelet Volume 10.3 fl (7.4-10.4); Monocytes Absolute Auto 0.4 K/mm3 (0.1-0.6); Monocytes Percent Auto 11.9 % (2.6-8.5); Neutrophils Absolute Auto 1.9 K/mm3 (1.3-6.7); Neutrophils Percent Auto 62.4 % (45.5-73.1); Platelet Count Result 123 k/mm3 (150-375); Red Blood Count 3.87 M/mm3 (4.6-6.20); Red Cell Distribution Width 17.6 % (11.5-14.5); White Blood Count 3.1 K/mm3 (4.5-10.0)
[2021-09-13 03:08] LABS: Add Urine Microscopic? YES; Appearance Urine Clear (Clear); Bilirubin Urine Negative (Negative); Blood Urine Negative (Negative); Color Urine Straw (Yellow); Glucose Urine UA 3+ mg/dL (Negative); Ketones Urine Negative (Negative); Leukocyte Esterase Ur Negative LEU/UL (Negative); Nitrate Urine Negative (Negative); Protein Urine Negative (Negative); RBC Urine 0-2 /hpf (0-2); Specific Grav Ur 1.013 (1.001-1.035); Urobilinogen Urine Negative mg/dL (<2.0); WBC Urine 0-3 /hpf
[2021-09-13 03:13] LABS: Lactic Acid Reflex 1.7 mmol/L (0.7-2.1); Lipase 103 U/L (23-300)
[2021-09-13 03:15] LABS: Alanine Aminotransferase 10 U/L (4-50); Alkaline Phosphatase 126 U/L (38-126); Ammonia < 9 umol/L (9-30); Anion Gap 10 mmol/L (8-16); Aspartate Amino Transferase 28 U/L (17-59); Bilirubin,Total 0.4 mg/dL (0.2-1.3); Blood Urea Nitrogen 10 mg/dL (9-20); Calcium 8.5 mg/dL (8.4-10.2); Carbon Dioxide 25 mmol/L (22-30); Chloride 103 mmol/L (98-107); Estimated CRCL calculation 97 ml/min; Estimated Glomerular Filt Rate > 60; Glucose 246 mg/dL (65-110); Potassium 3.5 mmol/L (3.4-5.0); Sodium 138 mmol/L (137-145)
[2021-09-13 03:16] LABS: INR 1.1; Partial Thromboplastin Time 31.1 SECONDS (22.3-36.8); Prothrombin Time 13.6 Seconds (11.1-14.7)
[2021-09-13 03:26] LABS: NT Pro B Type Natriuretic Pept 1240 pg/mL (5-100)
[2021-09-13 03:28] LABS: Platelet Estimate Decreased (Adequate)
[2021-09-13 03:29] LABS: Hypochromasia 2+ (NORMAL)
[2021-09-13 03:30] LABS: Anisocytosis 1+ (NORMAL); Microcytosis 1+ (NORMAL)
[2021-09-13] MEDS: MORPHINE SULFATE (*CRX) 4 MG/ML INJ IV PUSH ×3 (03:40→10:02)
[2021-09-13] MEDS: OCTREOTIDE ACETATE 50 MCG/ML VIAL IV PUSH (03:40)
[2021-09-13 06:09] LABS: Hemoglobin 7.2 g/dL (14.0-18.0)
--- NOTE | 2021-09-13 06:22 | PC.NURSE ---
RN discussed NG placement with ERP. Due to patients esophageal varacies plan to hold NG tube due to no vomiting and risk of causing bleeding from varice.
--- NOTE | 2021-09-13 07:57 | ADMGEN ---
This patient, Matt Worley II, was admitted to IMU Room 204-01. Patient/family oriented to hospital policies and general routines including ID bracelet, bed and alarms, visiting hours, pain management, procedures, bathroom and other care routines, personal items, smoking policy, room service/diet, and visiting hours. Information on how to activate the Rapid Response Team has been discussed. Patient/Family are encouraged to report perceived risks to care and to ask questions if they do not understand what they are told or what they should do.
--- NOTE | 2021-09-13 11:04 | WPDGICN ---
Assessment and Plan Assessment and plan (1) Upper GI bleed: Code(s): K92.2 - Gastrointestinal hemorrhage, unspecified Status: Acute Assessment and Plan: This patient came to the emergency room because he began vomiting blood last night. He has had several hospitalizations, almost once a month lately, with complications of his cirrhosis specifically ascites, abdominal pain, and upper gastrointestinal bleeding. He was hospitalized a few weeks ago. At that time he presented with SOB and found to have a hemoglobin of 5.4. He was started on Protonix drip as well as octreotide. After 2 units of packed red blood transfusion, hemoglobin climbed to 7 range and stable. The source of acute blood loss was GI with large varices, gastric ulcers, gastritis, gastric and duodenal AVMs. Patient underwent EGD with ablation of the AVMs and banding of the varices. he had been givenIV antibiotics in the form of Flagyl and Rocephin were started for possible SBP but only minimal ascites by CT. He has chronic persistent abdominal pain which we suspect is at least in part drug seeking behavior, as CT scans never show any acute process other than small to moderate amount of ascites, Not the mouth that would cause pain. He has cirrhosis felt related to autoimmune with very high MEL in 2020. He was started on IV diuretics. Coreg resumed and spironolactone dose advanced. He began vomiting blood last night-- part of it was liquid andsome was jelly-like and clots. He was not having any abdominal or chest pain out of the ordinary with that. EGD will be performed within the hour. (2) Abdominal ascites: Qualifiers: Ascites type: due to alcoholic hepatitis Qualified Code(s): K70.11 - Alcoholic hepatitis with ascites Code(s): R18.8 - Other ascites Status: Acute Assessment and Plan: CT scan today shows only a small amount of ascites. His abdomen is somewhat distended but he has always had a significant abdominal girth. I do not see the need for repeated paracentesis at this time (3) Anemia: Code(s): D64.9 - Anemia, unspecified Status: Acute Assessment and Plan: although he is chronically anemic. His blood count today is clearly lower than his baseline which is usually at least 8 (4) Cirrhosis: Code(s): K74.60 - Unspecified cirrhosis of liver Status: Acute Assessment and Plan: he had previous investigation by other physicians. The only thing was found abnormal is an elevated MEL. I had given him a screen shot of that to take his supervisor tubing at [place]. He states that his primary care provider also was sending records to [place] but to his knowledge it had not yet been received over there. (5) Pericardial effusion: Code(s): I31.3 - Pericardial effusion (noninflammatory) Status: Acute Assessment and Plan: This is new finding, seen on CT scan. Cardiology has been consulted (6) Portal hypertension: Code(s): K76.6 - Portal hypertension Status: Acute Assessment and Plan: he had been on a beta-laura. The a supervisor tubing in [place] switched him to carvedilol 6.25 mg b.i.d. the fact that he has a bleeding episode every few weeks suggest that perhaps he needs a higher dose. He states that the liver specialist at [facility] is leaving town. He was told his next follow-up appointment would be in February which is clearly too far the distant future for patient with his situation. GI Consult Note Consult date/time: 09/13/21 11:04 HPI: Matt Worley II is a 51 year old male presented to the emergency room with complaints of bleeding. He is known to have esophageal varices and the fact he was recently discharged after hospitalization for GI bleed. He also always complains of abdominal pain. He does have a small amount of ascites and every time he comes to the emergency room he talks the physician into giving him morphine and
[2021-09-13 11:18] LABS: Hemoglobin A1C 7.4 % (<5.7)
[2021-09-13 11:24] LABS: Hematocrit 28.5 % (42.0-52.0); Hemoglobin 7.7 g/dL (14.0-18.0)
--- NOTE | 2021-09-13 11:30 | WPDANESEPPF ---
Anes - Initial Pre Proc Eval Procedure: Operation Date: 09/13/21 13:30 Proposed Procedures p Esophagogastroduodenoscopy - Carroll Guerin MD Date/Time: 09/13/21 11:30 Pre Op Diagnosis: GI bleed/Pericardial effusion Patient Data Age: 51 Gender: M Height: 1.65 m Weight: 90.5 kg Last Vital Signs Temp 36.8 C 09/13/21 08:31 Pulse 99 09/13/21 10:00 Resp 28 H 09/13/21 08:31 BP 149/92 H 09/13/21 08:31 Pulse Ox 96 09/13/21 08:31 Allergies Allergy/AdvReac Type Severity Reaction Status Date / Time No Known Allergies Allergy Verified 09/13/21 02:29 Home Medications Medication Instructions Recorded Confirmed Type furosemide 40 mg PO DAILY 05/27/21 09/13/21 History duloxetine 30 mg PO DAILY 08/15/21 09/13/21 History pantoprazole 40 mg PO Q12HR #60 tablet 08/17/21 09/13/21 Rx spironolactone [Aldactone] 100 mg PO QAM #60 tablet 08/17/21 09/13/21 Rx tramadol 50 mg PO Q6H PRN #10 tablet 08/17/21 09/13/21 Rx metformin 500 mg BID 09/13/21 09/13/21 History Laboratory Tests 09/13/21 09/13/21 09/13/21 02:50 02:52 02:52 WBC 3.1 K/mm3 L K/mm3 (4.5-10.0) RBC 3.87 M/mm3 L M/mm3 (4.6-6.20) Hgb 8.0 g/dL L g/dL (14.0-18.0) Hct 30.1 % L % (42.0-52.0) MCV 77.8 fl L fl (80-100) MCH 20.7 pg L pg (26-34) MCHC 26.6 g/dl L g/dl (32-36) RDW 17.6 % H % (11.5-14.5) Plt Count 123 k/mm3 L k/mm3 (150-375) MPV 10.3 fl fl (7.4-10.4) Immature Gran % (Auto) 0.3 % % (0-0.5) Neut % (Auto) 62.4 % % (45.5-73.1) Lymph % (Auto) 22.5 % % (18.3-44.2) Saunders % (Auto) 11.9 % H % (2.6-8.5) Eos % (Auto) 2.3 % % (0-4.4) Baso % (Auto) 0.6 % % (0.2-1.2) Lymph # (Auto) 0.70 K/mm3 L K/mm3 (0.9-3.2) Saunders # (Auto) 0.4 K/mm3 K/mm3 (0.1-0.6) Eos # (Auto) 0.1 K/mm3 K/mm3 (0-0.3) Baso # (Auto) 0.0 K/mm3 K/mm3 (0.0-0.1) Abs Immat Gran (auto) 0.01 K/mm3 K/mm3 (0.00-0.031) Absolute Neuts (auto) 1.9 K/mm3 K/mm3 (1.3-6.7) Absolute Nucleated RBC 0.0 K/mm3 K/mm3 (0.0-0.012) Nucleated RBC % 0.0 % % (0.0-0.2) Platelet Estimate Decreased (Adequate) % Immature Plt Fraction 9.4 % % (0.9-11.2) Hypochromasia 2+ (NORMAL) Anisocytosis 1+ (NORMAL) Microcytosis 1+ (NORMAL) PT INR APTT Sodium Potassium Chloride Carbon Dioxide Anion Gap BUN Creatinine Estim Creat Clear Calc Estimated GFR Glucose POC Capillary Glucose 253 mg/dl H mg/dl (65-105) Hemoglobin A1c Lactic Acid 1.7 mmol/L mmol/L (0.7-2.1) Calcium Total Bilirubin AST ALT Alkaline Phosphatase Ammonia Troponin I NT-Pro-B Natriuret Pep Total Protein Albumin Lipase Urine Color Urine Appearance Urine pH Ur Specific Council Urine Protein Urine Glucose (UA) Urine Ketones Ur Blood (Man) Urine Nitrate Urine Bilirubin Urine Urobilinogen Leukocyte Esterase Rfl Urine RBC Urine WBC Peritoneal Source Peritoneal Color Peritoneal Appearance Peritoneal RBC Periton Nuc Cells Peritoneal Tot Protein Peritoneal Albumin Peritoneal LDH Peritoneal Glucose Peritoneal Amylase Blood Type Antibody Screen 09/13/21 09/13/21 09/13/21 02:52 02:52
--- NOTE | 2021-09-13 11:59 | PC.NURSE ---
Addendum entered by Fabio Zayas RN 09/13/21 12:00: Report given to COREY Costa. IV saline locked. Original Note: To GI Lab per GARY kruse intact. Report given to .
[2021-09-13] MEDS: LACTATED RINGERS 1,000 ML 150 ML IV CONT (12:05)
[2021-09-13 13:00] LABS: Iron 20 ug/dL (49-181)
[2021-09-13 13:09] LABS: Percent Iron Saturation 4 % (20-50)
[2021-09-13 13:13] LABS: Glucose Point of Care 225 mg/dl (65-105)
--- NOTE | 2021-09-13 13:16 | PM.CNCAR ---
Assessment and Plan Assessment and plan (1) Pericardial effusion: Code(s): I31.3 - Pericardial effusion (noninflammatory) Status: Acute Assessment and Plan: Small pericardial effusion anteriorly and larger posteriorly without tamponade physiology. There is no indication for pericardiocentesis. Patient is hemodynamically stable and without echo evidence for tamponade physiology. Furthermore, given small anterior effusion this would not be safely and minimal to pericardiocentesis. We discussed the concept of tamponade physiology the importance of rate of fluid accumulation more so than the size of the effusion. I do not feel that his effusion is directly contributing to his shortness of breath significant manner yet it is reasonable to monitor this forward. Overall, this is a chronic effusion with minimal change and without tamponade physiology. (2) Shortness of breath: Code(s): R06.02 - Shortness of breath Status: Acute Assessment and Plan: Multifactorial related to hepatic cirrhosis, ascites, abdominal pain, severe chronic anemia, deconditioning not likely related to pericardial effusion. Continue supportive medical therapy. (3) Chronic anemia: Code(s): D64.9 - Anemia, unspecified Status: Acute Assessment and Plan: Chronic. Follow H& H. Management per primary service. (4) Cirrhosis of liver with ascites: Code(s): K74.60 - Unspecified cirrhosis of liver; R18.8 - Other ascites Status: Chronic Assessment and Plan: Per GI and primary service. EGD pending. (5) Esophageal varices: Code(s): I85.00 - Esophageal varices without bleeding Status: Acute Assessment and Plan: PPI, octreotide. EGD pending. Management per GI and primary service. History of Present Illness History of Present Illness Consult date/time: Date of service: 09/13/21 13:16 This is a cardiology consultation at the request of Dr. Proctor of the [facility] for pericardial effusion and shortness of breath. Requesting physician: Eun Proctor MD Consult reason: shortness of breath and Other (Pericardial effusion) Reason For Visit: GI bleed/Pericardial effusion Narrative: Patient is a pleasant yet complicated 51-year-old male with past medical history significant for hepatic cirrhosis, esophageal varices with history of bleeding status post banding, portal hypertension, chronic anemia, tobacco abuse, and chronic pericardial effusion was admitted here earlier this month with severe anemia related to acute blood loss related large varices, gastric ulcers, duodenal AVMs and gastritis who underwent EGD with ablation of the AVMs and banding of the varices. He was previously on Protonix and octreotide IV as well as Flagyl and Rocephin for possible SBP. He has chronic abdominal pain as has been noted. His cirrhosis was felt to be related to autoimmune etiology with high MEL. Patient presents to the ER with multiple complaints including shortness of breath, hematemesis to hours prior to arrival and severe diffuse abdominal pain. He notes dark stools he attributes to iron supplementation as he can tell the difference between active bleeding. Denies fevers or chills, chest pain, near-syncope or syncope. Denies palpitations. He notes progressive shortness of breath for the past several months. Prior echocardiogram 08/15/2021 revealed [id number] pericardial effusion without tamponade, CT abdomen pelvis reveal at least moderate pericardial effusion dating back to 2020. He is followed at [facility] hepatology. At presentation his hemoglobin was 7.7 platelet count 123, BNP 1240, troponin 0.030. In the ER paracentesis was performed cytology pending. He was started on octreotide and pantoprazole infusions in the ER. He denies any prior known cardiac problems including CHF, CAD, myocardial infarction, stroke or known arrhythmias. Review of Systems Review of S
--- NOTE | 2021-09-13 13:45 | PC.NURSE ---
Returned from GI Lab.
[2021-09-13 13:50] LABS: Glucose Point of Care 203 mg/dl (65-105)
[2021-09-13] MEDS: ACETAMINOPHEN 500 MG TABLET 1000 MG PO (15:58)
--- NOTE | 2021-09-13 15:58 | PM.SD2 ---
Same Day Admit/Disch: HPI History of Present Illness Chief complaint: GI bleed/Pericardial effusion Narrative: Matt Worley II is a 51 year old male ED-HPI Narrative: The patient is a 51-year-old male with past medical history significant for hepatic cirrhosis, GI bleed with esophageal varices status post banding, tobacco dependence, presenting to emergency department for evaluation of multiple complaints. Patient reports acute onset shortness of breath, hematemesis this evening approximately 2 hours ago. Patient reports abdominal pain which is diffuse throughout his abdomen. Described as aching in nature. Patient denies any current chest pain. He denies any back pain. He reports melanotic stool which is chronic for him. Patient denies fever, chills. Denies cough. Denies hemoptysis. Patient denies dysuria or hematuria. Patient states his crisis specialist at [facility], recently had esophageal banding, blood transfusion at this hospital for upper GI bleed. Patient was managed by her hospitalist service and Dr. Guerin. patient is a 51-year-old male with history of esophageal varix and recurrent bleeding patient was recently seen at the [facility] and discharged presented emergency department with complaint of abdominal pain and bleeding patient was seen by GI who is very well familiar with the patient and taken to the EGD for further evaluation which was essentially normal without any source of bleeding, patient remained clinically stable his hemoglobin remains stable, patient had no other complaint and was okay for for to discharge the patient home per GI, will discharge the patient today. [facility] Past Medical History Medical History Arthritis Chronic anemia Cirrhosis of liver with ascites CVA (cerebral vascular accident) 2004 Gastric ulcer Gastroesophageal reflux disease History of kidney stones Hypertension Pericardial effusion Noted on CT and echocardiogram in August 2020. No evidence of tamponade. Portal hypertensive gastropathy Noted on endoscopy on 03/23/[address] Duran. Prostate cancer Status post radiation seed implantation. Prostate tumor Smoker Spontaneous bacterial peritonitis (04/2020) Testicular cancer Tobacco use Surgical History Surgical History History of appendectomy History of cholecystectomy History of inguinal hernia repair History of lithotripsy History of repair of right rotator cuff History of testicular surgery benign. Family History Family History Mother Family history of malignant neoplasm of breast in first degree relative Breast cancer Father Acute myocardial infarction Hypertension Heart disease Other Diabetes mellitus Maternal Unkle Other Family history of malignant neoplasm Social History Social History Social History: Surrogate decision maker: : Myra Worley 1st Marnie Washington, Aunt 2nd Code status: Full code Patient lives with his and son. He mentioned that his is battling stage 4 cancer. They have four children, which his youngest just graduated from [employer] and 2 of his daughters are striving to become MDs. 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 Gender identity (if verbalized by the patient): Male Sexual Orientation (if Verbalized by the Patie
[2021-09-13 16:24] LABS: Glucose Point of Care 206 mg/dl (65-105)
== END 2021-09-13 16:58 | disposition home or self-care (01) ==
LOC: ANHED 05:42 → ANHIMU 07:25
PROVIDERS: Internal Medicine Gastroenterology; Admitting Provider Internal Medicine; Emergency Provider Emergency Medicine; PCP Physician Assistant; Visit Provider Family Medicine
PROC: 0DJ08ZZ Inspection of Upper Intestinal Tract, Via Natural or Artificial Opening Endoscopic (ICD-10-PCS; CPT 43235; principal; 2021-09-13 13:30)
DX: K92.2 Gastrointestinal hemorrhage, unspecified (principal); K74.60 Unspecified cirrhosis of liver; I85.10 Secondary esophageal varices without bleeding; D64.9 Anemia, unspecified; R18.8 Other ascites; I31.3 Pericardial effusion (noninflammatory); I10 Essential (primary) hypertension; K76.6 Portal hypertension; K31.89 Other diseases of stomach and duodenum; K21.9 Gastro-esophageal reflux disease without esophagitis; C61 Malignant neoplasm of prostate; Z86.73 Personal history of transient ischemic attack (TIA), and cerebral infarction without residual deficits; Z79.899 Other long term (current) drug therapy
CPT/HCPCS: 43235; 36415; 71045; 74177; 80053; 81001; 82140; 82948; 83036; 83540; 83550; 83605; 83690; 83880; 84484; 85014; 85018; 85025; 85055; 85610; 85730; 86850; 86900; 86901; 87040; 93005; 93306; 96365; 96366; 96375; A9270; C9113; G0378; G0379; J0692; J2001; J2270; J2354; J2405; J2704; J7060; J7120; Q9967

== ENCOUNTER 2021-10-01 02:25 | Observation (INO) | payer OTHER, SELFPAY ==
[2021-10-01] VITALS (37 sets, daily range): BP systolic 133–166; BP diastolic 77–116; PULSE 80–109; RESP 12–21; TEMP 36.3–36.8; O2SAT 81–100; BMI 32.3
--- NOTE | ~2021-10-01 | XR_ITS ---
EXAMINATION: XR chest 1V portable EXAM DATE: 10/01/2021 05:07 INDICATION: Shortness of breath. TECHNIQUE: Portable AP frontal chest x-ray was obtained. Comparison is made to prior examination from 09/13/2021. FINDINGS: Enlarged cardiac silhouette unchanged, could be at least partly pericardial effusion correl ating with prior chest CT report 2020. This is unchanged compared to September 13. No confluent consolidat ion, pneumothorax or pleural effusion suspected. There are no osseous abnormalities identified. IMPRESSION: Enlarged cardiac silhouette, unchanged. Reviewed, dictated and finalized at location A.
--- NOTE | ~2021-10-01 | US_ITS ---
EXAMINATION: US paracentesis abd w/image DATE: 10/02/2021 11:03 INDICATION: Ascites. TECHNIQUE: The procedure and its risks and benefits were discussed with the patient. Potential risks discussed included bleeding and infection. The skin was prepped and draped in sterile fashion. 1% lid ocaine was used for local anesthesia. Under ultrasound guidance, a 5 Fr catheter with trochar was adv anced into the ascites in the right lower quadrant. Fluid was aspirated into vacuum bottles. The cath eter was removed, and a dressing was applied. There were no immediate complications. FINDINGS: Ultrasound images demonstrate ascites and the catheter within the fluid. IMPRESSION: 1. Successful ultrasound-guided paracentesis yielding 250 mL of clear yellow fluid. Reviewed, dictated and finalized at location A. IMPRESSION: 1. Successful ultrasound-guided paracentesis yielding 250 mL of clear yellow f luid.
--- NOTE | 2021-10-01 02:36 | ED.GENADULT ---
HPI - General Adult General Chief complaint: GI Bleed Stated complaint: VOMITING BLOOD - ABD DISTENTION Source: patient, EMS, RN notes reviewed and old records reviewed Mode of arrival: EMS Limitations: no limitations History of Present Illness HPI narrative: 51-year-old male with history of liver disease with esophageal varices and abdominal ascites presenting the emergency department for evaluation of increased abdominal pressure and an episode of bloody emesis. Patient states over the last few days he has had increased abdominal pressure secondary to his ascites. Patient states he did have an episode of emesis tonight that did contain large clots. After that emesis patient reports he did have a brief episode of syncope. Patient's called EMS. Upon arrival to the emergency department patient is alert and appropriate. Patient is complaining of left-sided abdominal pain which he states is a site of persistent pain. Patient does have a history of esophageal varices and bleeds. Few weeks ago patient presented with bleeding and was ultimately scoped by Dr. Guerin. Patient denies any chest pain but does report some increased work of breathing due to his abdominal distention/ascites. Related Data Home Medications Medication Instructions Recorded Confirmed furosemide 40 mg PO DAILY 05/27/21 09/13/21 duloxetine 30 mg PO DAILY 08/15/21 09/13/21 metformin 500 mg BID 09/13/21 09/13/21 Allergies Allergy/AdvReac Type Severity Reaction Status Date / Time No Known Allergies Allergy Verified 09/13/21 12:08 Review of Systems Review of Systems: CONSTITUTIONAL: Denies fever, chills, or sweats. EYES: Denies visual changes, redness, or discharge. ENT: Denies rhinorrhea, congestion, sore throat, or otalgia. CARDIOVASCULAR: Denies chest pain, palpitations, or edema. RESPIRATORY: Denies cough or dyspnea. GASTROINTESTINAL: See HPI GENITOURINARY: Denies dysuria or hematuria. SKIN: Denies rash or itching. MUSCULOSKELETAL: Denies back pain, joint pain, or myalgia. NEUROLOGIC: Denies headache, numbness, or weakness. [facility] Past Medical History Medical History Arthritis Chronic anemia Cirrhosis of liver with ascites CVA (cerebral vascular accident) 2004 Gastric ulcer Gastroesophageal reflux disease History of kidney stones Hypertension Pericardial effusion Noted on CT and echocardiogram in August 2020. No evidence of tamponade. Portal hypertensive gastropathy Noted on endoscopy on 03/23/[address] Duran. Prostate cancer Status post radiation seed implantation. Prostate tumor Smoker Spontaneous bacterial peritonitis (04/2020) Testicular cancer Tobacco use Surgical History Surgical History History of appendectomy History of cholecystectomy History of inguinal hernia repair History of lithotripsy History of repair of right rotator cuff History of testicular surgery benign. Family History Family History Mother Family history of malignant neoplasm of breast in first degree relative Breast cancer Father Acute myocardial infarction Hypertension Heart disease Other Diabetes mellitus Maternal Unkle Other Family history of malignant neoplasm Social History Social History Social History: Surrogate decision maker: : Myra Worley 1st Marnie Felix, Aunt 2nd Code status: Full code Patient lives with his and son. He mentioned that his is battling stage 4 cancer. They have four children, which his youngest just graduated from [employer] [place] and 2 of his daughters are striving to become MDs. Smoking packs per day: 1 Smoking cigarettes per day: 20.0 Years smoked: 25 Smoking pack-years: 25.00 Smoking status: Former smoker Second hand tobacco smoke exposure: Yes (From ) Smoking end date: 07/16/20 Alcohol in
[2021-10-01] MEDS: PANTOPRAZOLE SODIUM IV 40 MG VIAL 80 MG IV PUSH (02:57)
[2021-10-01] MEDS: HYDROmorphone HCL INJ (*CRX) 1 MG/ML SYR IV PUSH (02:57)
[2021-10-01] MEDS: ONDANSETRON INJ 4 MG/2 ML VIAL IV PUSH (02:58)
[2021-10-01 02:59] LABS: Basophils Percent Auto 0.8 % (0.2-1.2); Eosinophils Absolute Auto 0.1 K/mm3 (0-0.3); Hematocrit 33.6 % (42.0-52.0); Hemoglobin 8.9 g/dL (14.0-18.0); Immature Granulocyte Absolute 0.01 K/mm3 (0.00-0.031); Immature Granulocyte Percent A 0.3 % (0-0.5); Immature Platelet Fraction Pct 9.5 % (0.9-11.2); Lymphocytes Absolute Auto 0.98 K/mm3 (0.9-3.2); Lymphocytes Percent Auto 27.5 % (18.3-44.2); Mean Corpuscular HGB Conc 26.5 g/dl (32-36); Mean Corpuscular Volume 75.7 fl (80-100); Mean Platelet Volume 10.9 fl (7.4-10.4); Monocytes Absolute Auto 0.6 K/mm3 (0.1-0.6); Monocytes Percent Auto 15.4 % (2.6-8.5); Neutrophils Absolute Auto 1.9 K/mm3 (1.3-6.7); Platelet Count Result 143 k/mm3 (150-375); Red Blood Count 4.44 M/mm3 (4.6-6.20); Red Cell Distribution Width 18.3 % (11.5-14.5); White Blood Count 3.6 K/mm3 (4.5-10.0)
[2021-10-01 03:02] LABS: Anisocytosis 1+ (NORMAL); Hypochromasia 2+ (NORMAL)
[2021-10-01 03:24] LABS: INR 1.1; Partial Thromboplastin Time 32.5 SECONDS (22.3-36.8); Prothrombin Time 13.8 Seconds (11.1-14.7)
[2021-10-01 03:28] LABS: Alanine Aminotransferase 16 U/L (4-50); Albumin Level 4.3 g/dL (3.5-5.1); Alkaline Phosphatase 191 U/L (38-126); Anion Gap 10 mmol/L (8-16); Aspartate Amino Transferase 57 U/L (17-59); Bilirubin,Total 0.5 mg/dL (0.2-1.3); Blood Urea Nitrogen 12 mg/dL (9-20); Calcium 8.5 mg/dL (8.4-10.2); Carbon Dioxide 29 mmol/L (22-30); Chloride 97 mmol/L (98-107); Estimated Glomerular Filt Rate > 60; Glucose 334 mg/dL (65-110); Potassium 3.3 mmol/L (3.4-5.0); Sodium 136 mmol/L (137-145)
[2021-10-01] MEDS: OCTREOTIDE ACETATE 50 MCG/ML VIAL IV PUSH (04:14)
--- NOTE | 2021-10-01 04:41 | PC.NURSE ---
this RN talking to patient and patient started to tripod and not be able to talk. Patient breathing very heavy and unable to catch breath. Patient in distress Charge nurse notified and EDP Juan J notified. EDP in room when this started.
[2021-10-01] MEDS: ALBUTEROL SULFATE NEB 2.5 MG/3 ML INH 5 MG INHALATION (04:53)
--- NOTE | 2021-10-01 07:29 | WPDGICN ---
Assessment and Plan Assessment and plan (1) Acute upper gastrointestinal bleeding: Code(s): K92.2 - Gastrointestinal hemorrhage, unspecified Status: Acute Assessment and Plan: there has been no further bleeding since he arrived at the hospital. He has not had any stools. Fortunately, his 1st hemoglobin was higher than when he was discharged a couple of weeks ago. H&H was supposed to have been drawn at 6:00 a.m. but apparently was not. I will put through an order to get 1 now. I told patient we probably would not need to repeat an EGD, having just done that Two weeks ago and not finding significantly large varices. If he is bleeding from varices it seems that it has stopped by now as he has had no further emesis. He is currently on octreotide drip. I explained to the patient that octreotide loose reduces the pressure in the veins much like his carvedilol is supposed to. 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 (2) Portal hypertension: Code(s): K76.6 - Portal hypertension Status: Acute Assessment and Plan: He states that he has been faithfully taking his carvedilol, even though it is not listed on his discharge from 2 weeks ago and his admission list this time. He states he is also taking his spironolactone and furosemide. (3) Cirrhosis: Qualifiers: Ascites presence: with ascites Hepatic cirrhosis type: unspecified hepatic cirrhosis Qualified Code(s): K74.60 - Unspecified cirrhosis of liver; R18.8 - Other ascites Code(s): K74.60 - Unspecified cirrhosis of liver Status: Acute Assessment and Plan: The etiology of his cirrhosis is unknown. It had been evaluated in the past. The only thing we found abnormal was elevated MEL, Suggesting possible autoimmune liver disease. He states that the asphalt paving machine operator did not seem to be interested in the etiology or investigate for other reasons when he saw him a few months ago (4) Ascites: Code(s): R18.8 - Other ascites Status: Acute Assessment and Plan: he has had paracentesis several times. Often no more than about 1 L can be removed. I told that we would rather not have to do that every couple of weeks because of the risks, and ideally would control it with diuretics. CT scan done just over 2 weeks ago showed only a small amount of ascites. His weight then was 200 lb, and it appears that it is 194 now, consequently I do not think that he has a significant amount of ascites at this time that would warrant paracentesis (5) Abdominal pain: Code(s): R10.9 - Unspecified abdominal pain Status: Acute Assessment and Plan: For as long as I have known him he has constant and what he describes as severe abdominal pain. Every emergency room visit, even when it is presumably for bleeding, his 1st complaint is that he needs something for pain med he is given morphine or hydro morphone. He has last several times that he could be placed on something for the pain but I told him that because it is chronic, he would become addicted to opioids, and that In my experience opioids are not usually necessary for treatment of cirrhosis and ascites. GI Consult Note Consult date/time: 10/01/21 07:29 HPI: Matt Worley II is a 51 year old male who presented to the emergency room last night having been in bed and woke up nauseated and then vomited about a half cup of blood. The blood was mostly dark red but some was bright. He vomited once or twice a small amount afterwards but none since he got to the hospital. The patient was just discharged from here about 3 weeks ago when he was admitted with a similar complaint of vomiting blood. EGD done the following morning revealed no blood in the stomach but there was some food retained. He is known to have esophageal varices and has had previous banding of them. The varices were not very large when he had EGD 3 weeks ago, gonsalo
[2021-10-01 07:49] LABS: Hematocrit 30.9 % (42.0-52.0)
[2021-10-01 08:48] LABS: Glucose Point of Care 343 mg/dl (65-105)
--- NOTE | 2021-10-01 10:34 | PM.IMPN ---
Progress Note: A&P Assessment and Plan (1) Acute upper gastrointestinal bleeding: Code(s): K92.2 - Gastrointestinal hemorrhage, unspecified Status: Acute Assessment and Plan: Likely related to varices with underlying cirrhosis. Will trend hemoglobin and defer to GI for possible endoscopy. (2) Portal hypertension: Code(s): K76.6 - Portal hypertension Status: Acute Assessment and Plan: Patient reports compliance with carvedilol spironolactone and furosemide. Monitor. (3) Cirrhosis: Qualifiers: Ascites presence: with ascites Hepatic cirrhosis type: unspecified hepatic cirrhosis Qualified Code(s): K74.60 - Unspecified cirrhosis of liver; R18.8 - Other ascites Code(s): K74.60 - Unspecified cirrhosis of liver Status: Acute Assessment and Plan: Will need a follow-up with his GI specialist as an outpatient. (4) Ascites: Code(s): R18.8 - Other ascites Status: Acute Assessment and Plan: monitor. (5) Abdominal pain: Code(s): R10.9 - Unspecified abdominal pain Status: Acute Assessment and Plan: Secondary to ascites. Monitor pain. Subjective Date/time seen: 10/01/21 10:34 No active bleeding Exam Narrative: APPEARANCE: Well appearing, no pain, no distress, well-nourished. HEAD: normocephalic, atraumatic. EYES: PERRLA/EOMI, conjunctivae clear. NOSE: Normal no drainage EARS:TMS clear with good light reflex. NECK: Supple. No adenopathy, no masses. RESPIRATORY: Airway patent, respirations nonlabored. Clear to auscultation bilaterally, no rales, rhonchi, wheezing. CARDIOVASCULAR: Regular rate and rhythm without murmurs rubs or gallops. ABDOMINAL: Abdominal distention with left-sided abdominal tenderness to palpation. No evidence of peritonitis MUSCULOSKELETAL: Moves all extremities. Strength/ROM intact, No edema, No calf tenderness. NEURO: Alert. Cranial nerves II through XII intact. Grossly intact SKIN: Warm, dry. Normal Color Const: General: alert and uncomfortable Orientation/consciousness: patient oriented x3 Resp: Auscultation: clear to auscultation bilaterally Cardio: Rhythm: regular rhythm GI: Inspection: visible herniation ( umbilical) Auscultation: normal bowel sounds Neuro: General: patient oriented x3 Objective Data Vital Signs Vital Signs: Vital Signs - 24 hr 04/19/22 02:27 10/01/21 02:35 10/01/21 02:45 Temperature 97.8 F Pulse Rate 104 H 106 H 100 Respiratory Rate 16 14 17 Blood Pressure 166/95 H 141/80 H Pulse Oximetry 96 96 95 10/01/21 02:46 10/01/21 03:00 10/01/21 03:01 Temperature Pulse Rate 99 101 H 102 H Respiratory Rate 19 17 16 Blood Pressure 144/83 H Pulse Oximetry 90 93 88 L 10/01/21 03:15 10/01/21 03:16 10/01/21 03:30 Temperature Pulse Rate 101 H 103 H 101 H Respiratory Rate 16 20 17 Blood Pressure 133/78 147/116 H Pulse Oximetry 81 L 96 100 10/01/21 03:31 10/01/21 03:45 10/01/21 03:46 Temperature Pulse Rate 100 99 97 Respiratory Rate 17 15 16 Blood Pressure 142/89 H Pulse Oximetry 100 100 100 10/01/21 04:00 10/01/21 04:01 10/01/21 04:15 Temperature Pulse Rate 102 H 109 H 96 Respiratory Rate 19 21 H 16 Blood Pressure 148/97 H 151/92 H Pulse Oximetry 100 98 100 10/01/21 04:16 10/01/21 04:30 10/01/21 04:31 Temperature Pulse Rate 92 95 96 Respiratory Rate 14 15 17 Blood Pressure 147/101 H Pulse Oximetry 100 10/01/21 04:39 10/01/21 04:45 10/01/21 04:46 Temperature Pulse Rate 99 98 Respiratory Rate 13 20 Blood Pressure 144/88 H Pulse Oximetry 98 100 100 10/01/21 04:55 10/01/21 05:00 10/01/21 05:01 Temperature Pulse Rate 97 94 96 Respiratory Rate 18 12 20 Blood Pressure 142/87 H Pulse Oximetry 100 100 10/01/21 05:10 10/01/21 05:15 10/01/21 05:16 Temperature Pulse Rate 102 H 89 101 H Respiratory Rate 16 15 19 Blood Pressure 143/85 H Pulse Oximetry 100 100 10/01/21 05:40 0
[2021-10-01 11:57] LABS: Glucose Point of Care 292 mg/dl (65-105)
[2021-10-01] MEDS: ACETAMINOPHEN 325 MG TABLET 650 MG PO ×2 (15:59→21:41)
[2021-10-01 16:40] LABS: Glucose Point of Care 269 mg/dl (65-105)
[2021-10-02] VITALS (7 sets, daily range): BP systolic 138; BP diastolic 94; PULSE 85–93; RESP 18; TEMP 36.8; O2SAT 96–97
[2021-10-02 05:39] LABS: Hematocrit 29.9 % (42.0-52.0); Immature Platelet Fraction Pct 9.6 % (0.9-11.2); Mean Corpuscular HGB Conc 26.8 g/dl (32-36); Mean Corpuscular Hemoglobin 20.2 pg (26-34); Mean Corpuscular Volume 75.5 fl (80-100); Platelet Count Result 89 k/mm3 (150-375); Red Blood Count 3.96 M/mm3 (4.6-6.20); Red Cell Distribution Width 17.6 % (11.5-14.5); White Blood Count 2.6 K/mm3 (4.5-10.0)
--- NOTE | 2021-10-02 07:00 | WPDGIPROGNO ---
Progress Note: A&P Assessment and Plan (1) Acute upper gastrointestinal bleeding: Code(s): K92.2 - Gastrointestinal hemorrhage, unspecified Status: Acute Assessment and Plan: there has been no further bleeding since he arrived at the hospital. He has not had any stools. Fortunately, his 1st hemoglobin was higher than when he was discharged a couple of weeks ago. H&H was supposed to have been drawn at 6:00 a.m. but apparently was not. I will put through an order to get 1 now. I told patient we probably would not need to repeat an EGD, having just done that Two weeks ago and not finding significantly large varices. If he is bleeding from varices it seems that it has stopped by now as he has had no further emesis. He is currently on octreotide drip. I explained to the patient that octreotide loose reduces the pressure in the veins much like his carvedilol is supposed to. I suspect his electrical lineman may want to increase the dose of his carvedilol. 10/02 Hemoglobin is stable. I don't think he'll need repeat EGD. Will advance diet. (2) Portal hypertension: Code(s): K76.6 - Portal hypertension Status: Acute Assessment and Plan: He states that he has been faithfully taking his carvedilol, even though it is not listed on his discharge from 2 weeks ago and his admission list this time. He states he is also taking his spironolactone and furosemide. (3) Cirrhosis: Qualifiers: Ascites presence: with ascites Hepatic cirrhosis type: unspecified hepatic cirrhosis Qualified Code(s): K74.60 - Unspecified cirrhosis of liver; R18.8 - Other ascites Code(s): K74.60 - Unspecified cirrhosis of liver Status: Acute Assessment and Plan: The etiology of his cirrhosis is unknown. It had been evaluated in the past. The only thing we found abnormal was elevated MEL, Suggesting possible autoimmune liver disease. He states that the electrical lineman did not seem to be interested in the etiology or investigate for other reasons when he saw him a few months ago 10/02 Looking back, I see that he had elevated ferritin when checked by Dr. Claros a couple of years ago. Now he is iron deficient with a saturation only 4%. (4) Ascites: Code(s): R18.8 - Other ascites Status: Acute Assessment and Plan: he has had paracentesis several times. Often no more than about 1 L can be removed. I told that we would rather not have to do that every couple of weeks because of the risks, and ideally would control it with diuretics. CT scan done just over 2 weeks ago showed only a small amount of ascites. His weight then was 200 lb, and it appears that it is 194 now, consequently I do not think that he has a significant amount of ascites at this time that would warrant paracentesis. 10/02 Will attempt once more to rule out SBP. Last time he was checked, he had already received IV Abx (5) Abdominal pain: Code(s): R10.9 - Unspecified abdominal pain Status: Acute Assessment and Plan: For as long as I have known him he has constant and what he describes as severe abdominal pain. Every emergency room visit, even when it is presumably for bleeding, his 1st complaint is that he needs something for pain med he is given morphine or hydro morphone. He has last several times that he could be placed on something for the pain but I told him that because it is chronic, he would become addicted to opioids, and that In my experience opioids are not usually necessary for treatment of cirrhosis and ascites. he lies feel somewhat better after paracentesis and therefore I will try and do 1 today if there is enough fluid to remove. (6) Anemia: Code(s): D64.9 - Anemia, unspecified Status: Acute Assessment and Plan: Two years ago his ferritin was over 2000. Now he is iron deficient with iron saturation 4%. That in his chronic anemia and low white blood count are a concern. Janessa
--- NOTE | 2021-10-02 07:20 | PM.DS ---
DS: Admitting Diagnosis Discharge Date 10/02/21 Admitting Diagnosis abd pain DS: Discharge Diagnosis Discharge Diagnosis Plan patient lfet AMA see progress note on 10/02/21 DS: Summary Hospital Course Hospital Course: patient left ama Time Spent with Patient Time attestation: Total time spent providing and/or coordinating discharge services: Discharge Plan Discharge Consulting providers: Carroll Guerin ; Lambert An ; Amarilis Dawson M.A. ; Booker Guaman ; Ivan Negro Patient Disposition: Left Against Medical Advice Discharge Medications: No Action furosemide 40 mg tablet 40 mg PO DAILY duloxetine 30 mg capsule,delayed release(DR/EC) 30 mg PO DAILY Hold Instructions: Resume on 08/25/21. HOLD - Resume Duloxetine once off the Ciprofloxicin pantoprazole 40 mg Tablet,Delayed Release (Dr/Ec) 40 mg PO Q12HR Qty: 60 2RF spironolactone [Aldactone] 50 mg Tablet 100 mg PO QAM Qty: 60 2RF metformin 500 mg Tablet 500 mg BID carvedilol 6.25 mg Tablet 6.25 mg PO BID Date of admission: 10/01/21 04:17 Primary Care Provider: PHYSICIAN,CENTRAL OFFICE TECHNICIAN Admitting Provider: Maryan Ortiz Attending physician on admission: Maryan Ortiz Condition: Stable
[2021-10-02 07:43] LABS: Glucose Point of Care 241 mg/dl (65-105)
[2021-10-02] MEDS: SODIUM CHLORIDE 0.9% IV 1,000 ML 75 ML IV CONT (08:28)
[2021-10-02] MEDS: ACETAMINOPHEN 325 MG TABLET 650 MG PO (08:29)
--- NOTE | 2021-10-02 10:31 | PM.IMPN ---
Progress Note: A&P Assessment and Plan (1) Acute upper gastrointestinal bleeding: Code(s): K92.2 - Gastrointestinal hemorrhage, unspecified Status: Acute Assessment and Plan: Likely related to varices with underlying cirrhosis. IV Protonix IV octreotide Clear liquid diet GI consult Monitor H&H No plan for EGD if no worsening anemia. (2) Portal hypertension: Code(s): K76.6 - Portal hypertension Status: Acute Assessment and Plan: Patient reports compliance with carvedilol spironolactone and furosemide. Monitor. I restarted carvedilol and furosemide probably start spironolactone in a.m. (3) Cirrhosis: Qualifiers: Ascites presence: with ascites Hepatic cirrhosis type: unspecified hepatic cirrhosis Qualified Code(s): K74.60 - Unspecified cirrhosis of liver; R18.8 - Other ascites Code(s): K74.60 - Unspecified cirrhosis of liver Status: Acute Assessment and Plan: Will need a follow-up with his GI specialist as an outpatient. Resume Lasix Patient has anasarca (4) Ascites: Code(s): R18.8 - Other ascites Status: Acute Assessment and Plan: Concern for spontaneous bacterial peritonitis start IV Rocephin blood culture ordered Pending paracentesis Started Lasix DC IV fluid (5) Abdominal pain: Code(s): R10.9 - Unspecified abdominal pain Status: Acute Assessment and Plan: Secondary to ascites. Monitor pain. Rule out spontaneous bacterial peritonitis workup pending Subjective Date/time seen: 10/02/21 10:31 Interval history: 51 years old male with past medical history of liver cirrhosis presented to the hospital with GI bleed abdominal distension abdominal pain GI was consulted patient was started on Protonix drip and octreotide drip Patient received Rocephin as has abdominal pain and GI bleed associated with ascites pending paracentesis Patient requested pain medication and fortunately pain medication modalities are limited as the patient has liver disease and GI bleed will give oral , IV narcotic for pain scale as needed benefit outweighed the risk counseling was given to the patient Patient feels weak complains of abdominal pain Patient denies fever headache chest pain I am seeing the patient for lower extremity edema Exam Narrative: Alert Chest no wheeze crackles Abdomen tender distended CVS S1 + S2 Plus two Lower extremity edema Objective Data Vital Signs Vital Signs: Vital Signs - 24 hr 10/01/21 12:00 10/01/21 14:00 10/01/21 16:00 Temperature 98.2 F Pulse Rate 103 H 103 H 101 H Respiratory Rate 18 Blood Pressure 148/86 H Pulse Oximetry 90 10/01/21 19:56 10/01/21 21:04 10/01/21 22:00 Temperature 97.7 F Pulse Rate 80 98 Respiratory Rate 18 Blood Pressure 155/95 H Pulse Oximetry 97 98 10/02/21 00:00 10/02/21 04:00 10/02/21 06:00 Temperature 98.3 F Pulse Rate 85 90 89 Respiratory Rate 18 Blood Pressure 138/94 H Pulse Oximetry 96 10/02/21 08:35 Temperature Pulse Rate Respiratory Rate Blood Pressure Pulse Oximetry 97 Intake/Output Intake/Output: Intake & Output 09/29/21 09/30/21 10/01/21 10/02/21 23:59 23:59 23:59 23:59 Intake Total 1220 1346 Balance 1220 1346 Meds/Results Medications: Active Medications Generic Name Dose Route Start Last Admin Trade Name Freq PRN Reason Stop Dose Admin Acetaminophen 650 mg 10/01/21 15:26 10/02/21 08:29 Acetaminophen 325 Mg Tablet PO 650 mg Q6H PRN Administration Mild Pain (1-3) or Fever Carvedilol 6.25 mg 10/02/21 17:00 Carvedilol 6.25 Mg Tablet PO BID FORTINO Duloxetine HCl 30 mg 10/03/21 09:00 Duloxetine Hcl 30 Mg Capsule.Dr PO DAILY FORTINO Furosemide 40 mg 10/03/21 09:00 Furosemide 40 Mg Tablet PO DAILY FORTINO Pantoprazole Sodium 80 mg/ 500 mls @ 50 mls/hr 10/01/21 02:35 10/02/21 08:23 Dextrose IV CONT 10/04/21 02:34 50 mls/hr .Q10H FORTINO
[2021-10-02 11:37] LABS: Amphetamine Screen Urine Negative (Negative); Barbiturate Screen Urine Negative (Negative); Benzodiazepines Screen Urine Negative (Negative); Cannabinoid Screen Urine Negative (Negative); Cocaine Screen Urine Negative (Negative); Methadone Screen Urine Negative (Negative); Opiate Screen Urine Positive (Negative); Phencyclidine Screen Urine Negative (Negative)
[2021-10-02 11:53] LABS: Glucose Point of Care 245 mg/dl (65-105)
[2021-10-02] MEDS: oxyCODONE HCL (*CRX) 5 MG TAB IR PO (12:04)
[2021-10-02 12:07] LABS: Basophils Percent Auto 0.9 % (0.2-1.2); Eosinophils Absolute Auto 0.1 K/mm3 (0-0.3); Eosinophils Percent Auto 2.3 % (0-4.4); Hematocrit 31.3 % (42.0-52.0); Hemoglobin 8.4 g/dL (14.0-18.0); Immature Granulocyte Absolute 0.01 K/mm3 (0.00-0.031); Immature Granulocyte Percent A 0.3 % (0-0.5); Immature Platelet Fraction Pct 10.5 % (0.9-11.2); Lymphocytes Absolute Auto 0.49 K/mm3 (0.9-3.2); Lymphocytes Percent Auto 14.3 % (18.3-44.2); Mean Corpuscular HGB Conc 26.8 g/dl (32-36); Mean Corpuscular Volume 74.7 fl (80-100); Monocytes Absolute Auto 0.5 K/mm3 (0.1-0.6); Monocytes Percent Auto 13.7 % (2.6-8.5); Neutrophils Absolute Auto 2.3 K/mm3 (1.3-6.7); Neutrophils Percent Auto 68.5 % (45.5-73.1); Platelet Count Result 96 k/mm3 (150-375); Red Blood Count 4.19 M/mm3 (4.6-6.20); Red Cell Distribution Width 17.7 % (11.5-14.5); White Blood Count 3.4 K/mm3 (4.5-10.0)
[2021-10-02 12:14] LABS: Magnesium 1.7 mg/dL (1.6-2.3)
[2021-10-02 12:15] LABS: Alanine Aminotransferase 14 U/L (4-50); Albumin Level 3.7 g/dL (3.5-5.1); Alkaline Phosphatase 161 U/L (38-126); Anion Gap 5 mmol/L (8-16); Aspartate Amino Transferase 37 U/L (17-59); Bilirubin,Total 1.1 mg/dL (0.2-1.3); Blood Urea Nitrogen 10 mg/dL (9-20); Calcium 8.5 mg/dL (8.4-10.2); Carbon Dioxide 29 mmol/L (22-30); Chloride 95 mmol/L (98-107); Estimated CRCL calculation 100 ml/min; Estimated Glomerular Filt Rate > 60; Glucose 232 mg/dL (65-110); Sodium 129 mmol/L (137-145)
[2021-10-02 12:23] LABS: Appearance Peritoneal Fluid Cloudy (Clear); Color Peritoneal Fluid Yellow (Colorless); Nucleated Cells Peritoneal Flu 246 /uL (0-500); Source Peritoneal Fluid Peritoneal Fluid
[2021-10-02 12:24] LABS: RBC Peritoneal Fluid 691 /uL (0-100000)
[2021-10-02] MEDS: INSULIN ASPART (*BKC) 100 UNITS/ML SUB-Q (12:31)
[2021-10-02 12:32] LABS: Anisocytosis 1+ (NORMAL); Hypochromasia 2+ (NORMAL); Platelet Estimate Decreased (Adequate)
[2021-10-02 12:33] LABS: Stomatocytes 1+ (NORMAL)
[2021-10-02 12:49] LABS: Lymphocytes Peritoneal Fluid 40 %; Macrophages Peritoneal Fluid 55 %; Monocytes Peritoneal Fluid 2 %; Neutrophils Peritoneal Fluid 3 % (0-25)
[2021-10-02 16:32] LABS: Glucose Point of Care 191 mg/dl (65-105)
--- NOTE | 2021-10-02 18:11 | PC.NURSE ---
Patient signed out AMA, warehouse freight handler notified, hospitalist notified. RN attempted to educate the patient about current health condition and risks involved in leaving AMA. Patient is very adamant about returning home to his 7 year old son. Patient states he has a family emergency and no one to watch his young son and insists he leave now. AMA form was signed 10/02/21 at 1757.
== END 2021-10-02 17:58 | disposition left against medical advice (07) ==
LOC: ANHED 02:36 → ANH3MEDSUR 04:44
PROVIDERS: Chiropractor; Internal Medicine; Admitting Provider Internal Medicine; Emergency Provider Emergency Medicine; Visit Provider Internal Medicine
DX: K92.2 Gastrointestinal hemorrhage, unspecified (principal); K76.6 Portal hypertension; K74.60 Unspecified cirrhosis of liver; R18.8 Other ascites; R10.9 Unspecified abdominal pain; Z87.442 Personal history of urinary calculi; F17.210 Nicotine dependence, cigarettes, uncomplicated; Z85.47 Personal history of malignant neoplasm of testis; Z85.46 Personal history of malignant neoplasm of prostate; D50.9 Iron deficiency anemia, unspecified
CPT/HCPCS: 36415; 49083; 71045; 80053; 80307; 82728; 82948; 83735; 85014; 85018; 85025; 85027; 85055; 85610; 85730; 86850; 86860; 86870; 86880; 86900; 86901; 86902; 86905; 86922; 86971; 86972; 87040; 87070; 87075; 87205; 89051; 94640; 96365; 96366; 96368; 96375; 96376; 99285; A9270; C9113; G0378; G0379; J0696; J1170; J1815; J2354; J2405; J7030; J7060

== ENCOUNTER 2021-10-25 13:05 | Outpatient (CLI) | payer OTHER, SELFPAY ==
[2021-10-25 13:32] LABS: Basophils Percent Auto 0.5 % (0.2-1.2); Eosinophils Absolute Auto 0.1 K/mm3 (0-0.3); Eosinophils Percent Auto 1.8 % (0-4.4); Hematocrit 34.2 % (42.0-52.0); Immature Granulocyte Absolute 0.02 K/mm3 (0.00-0.031); Immature Granulocyte Percent A 0.5 % (0-0.5); Immature Platelet Fraction Pct 8.7 % (0.9-11.2); Lymphocytes Absolute Auto 0.98 K/mm3 (0.9-3.2); Lymphocytes Percent Auto 25.8 % (18.3-44.2); Mean Corpuscular HGB Conc 26.3 g/dl (32-36); Mean Corpuscular Hemoglobin 19.8 pg (26-34); Mean Corpuscular Volume 75.3 fl (80-100); Mean Platelet Volume 9.6 fl (7.4-10.4); Monocytes Absolute Auto 0.5 K/mm3 (0.1-0.6); Monocytes Percent Auto 13.2 % (2.6-8.5); Neutrophils Absolute Auto 2.2 K/mm3 (1.3-6.7); Neutrophils Percent Auto 58.2 % (45.5-73.1); Platelet Count Result 91 k/mm3 (150-375); Red Blood Count 4.54 M/mm3 (4.6-6.20); Red Cell Distribution Width 18.6 % (11.5-14.5); White Blood Count 3.8 K/mm3 (4.5-10.0)
[2021-10-25 13:36] LABS: Hypochromasia 2+ (NORMAL); Platelet Estimate Decreased (Adequate)
[2021-10-25 13:38] LABS: Anisocytosis 1+ (NORMAL)
[2021-10-25 13:39] LABS: Poikilocytosis 1+ (NORMAL); Stomatocytes 1+ (NORMAL)
[2021-10-25 16:03] LABS: Alanine Aminotransferase 16 U/L (6-50); Albumin Level 4.2 g/dL (3.5-5.1); Alkaline Phosphatase 199 U/L (38-126); Anion Gap 7 mmol/L (8-16); Aspartate Amino Transferase 43 U/L (17-59); Bilirubin,Total 0.8 mg/dL (0.2-1.3); Blood Urea Nitrogen 15 mg/dL (9-20); Calcium 8.9 mg/dL (8.4-10.2); Carbon Dioxide 26 mmol/L (22-30); Chloride 101 mmol/L (98-107); Estimated Glomerular Filt Rate > 60; Glucose 169 mg/dL (65-110); Iron 35 ug/dL (49-181); Potassium 4.3 mmol/L (3.4-5.0); Sodium 134 mmol/L (137-145)
[2021-10-25 16:15] LABS: Percent Iron Saturation 7 % (20-50)
[2021-10-25 17:06] LABS: Folic Acid 13.1 ng/mL (2.76->20)
== END 2021-10-25 13:06 | disposition home or self-care (01) ==
PROVIDERS: Visit Provider Internal Medicine Hematology & Oncology
DX: D64.9 Anemia, unspecified (principal)
CPT/HCPCS: 36415; 80053; 82607; 82728; 82746; 83540; 83550; 85025; 85055

== ENCOUNTER 2021-11-06 09:12 | Emergency (ER) | payer OTHER, SELFPAY ==
[2021-11-06] VITALS (39 sets, daily range): BP systolic 136–172; BP diastolic 78–99; PULSE 91–106; RESP 16–29; TEMP 36.9–37; O2SAT 92–100
--- NOTE | ~2021-11-06 | US_ITS ---
EXAMINATION: US abdomen limited DATE: 11/06/2021 11:23 INDICATION: Ascites. TECHNIQUE: Multiple grayscale ultrasound images of the abdomen were obtained. COMPARISON: CT abdomen and pelvis 09/13/2021. FINDINGS: The liver demonstrates a nodular surface contour, consistent with cirrhosis. A survey of th e 4 quadrants of the abdomen demonstrates a small volume of ascites. IMPRESSION: 1. Small volume of ascites. I discussed the ascites with the patient and gave me opinion of how much fluid would be yielded by paracentesis. The patient chose not to proceed with paracentesis at this ti me. Reviewed, dictated and finalized at location A. IMPRESSION: 1. Small volume of ascites. I discussed the ascites with the patient and gave m e opinion of how much fluid would be yielded by paracentesis. The patient chose not to proceed with paracentesis at this time.
--- NOTE | ~2021-11-06 | CT_ITS ---
EXAMINATION: CT abdomen pelvis w con DATE: 11/06/2021 13:21 INDICATION: History of liver disease. Abdomen pain. Hypertension. TECHNIQUE: Computed tomography (CT) of the abdomen and pelvis was performed with 75 cc Omnipaque 300 intravenous contrast. The dose-length product was 971.06 mGy-cm. Automated exposure control and itera tive reconstruction technique were employed. COMPARISON: CT dated 09/13/2021. FINDINGS: Moderate pericardial effusion. Trace left pleural effusion. Bibasilar dependent atelectasis . There is cirrhosis of the liver with portal hypertension manifest as enlargement portal vein, splenom egaly and ascites. There are cholecystectomy clips. The pancreas, adrenal glands and right kidney are unremarkable. There is a 3 mm nonobstructing left renal stone. Nonobstructive bowel gas pattern. The re are chronic anterior wedge compression deformities of T10, T11 and T12. Accentuated kyphosis at th is level. Colonic diverticulosis without evidence for diverticulitis. There are surgical changes cons istent with prior appendectomy. IMPRESSION: 1. Cirrhosis with findings consistent with portal hypertension. 2: Moderate pericardial effusion. 3: Trace left pleural effusion with bibasilar atelectasis. 4: Nonobstructing left nephrolithiasis. Reviewed, dictated and finalized at location A.
--- NOTE | ~2021-11-06 | XR_ITS ---
XR chest 1V portable 11/06/2021 09:33 Indication: Shortness of breath Procedure: AP portable chest Comparison: Comparison to multiple prior studies sequentially, with oldest reviewed study dated 06/2020. Findings: Cardiomegaly. Mild interstitial edema. No pleural effusion or pneumothorax. No acute osseou s abnormality. Impression: 1: Cardiomegaly with mild interstitial edema. Reviewed, dictated and finalized at location A. Impression: 1: Cardiomegaly with mild interstitial edema.
--- NOTE | 2021-11-06 09:22 | ECG_ITS ---
Measurements Intervals [place] Rate: 107 P: 55 CO: 166 QRS: 72 QRSD: 86 T: 62 QT: 362 QTc: 484 Interpretive Statements SINUS TACHYCARDIA POSSIBLE LEFT ATRIAL ENLARGEMENT INCOMPLETE RIGHT BUNDLE BRANCH BLOCK BORDERLINE T WAVE ABNORMALITY- HIGH LATERAL LEADS BORDERLINE ECG Electronically Signed On 11-06-2021 12:15:33 CDT by Og Brown D.O.
[2021-11-06 09:32] LABS: Basophils Percent Auto 0.8 % (0.2-1.2); Eosinophils Percent Auto 0.8 % (0-4.4); Hematocrit 35.6 % (42.0-52.0); Hemoglobin 9.3 g/dL (14.0-18.0); Immature Granulocyte Absolute 0.01 K/mm3 (0.00-0.031); Immature Granulocyte Percent A 0.3 % (0-0.5); Immature Platelet Fraction Pct 9.8 % (0.9-11.2); Lymphocytes Absolute Auto 0.62 K/mm3 (0.9-3.2); Lymphocytes Percent Auto 15.8 % (18.3-44.2); Mean Corpuscular HGB Conc 26.1 g/dl (32-36); Mean Corpuscular Hemoglobin 19.7 pg (26-34); Mean Corpuscular Volume 75.6 fl (80-100); Monocytes Absolute Auto 0.6 K/mm3 (0.1-0.6); Monocytes Percent Auto 14.3 % (2.6-8.5); Neutrophils Absolute Auto 2.7 K/mm3 (1.3-6.7); Platelet Count Result 115 k/mm3 (150-375); Red Blood Count 4.71 M/mm3 (4.6-6.20); Red Cell Distribution Width 19.3 % (11.5-14.5); White Blood Count 3.9 K/mm3 (4.5-10.0)
[2021-11-06 09:41] LABS: Alanine Aminotransferase 10 U/L (6-50); Albumin Level 4.2 g/dL (3.5-5.1); Alkaline Phosphatase 167 U/L (38-126); Anion Gap 6 mmol/L (8-16); Aspartate Amino Transferase 34 U/L (17-59); Blood Urea Nitrogen 11 mg/dL (9-20); Calcium 8.8 mg/dL (8.4-10.2); Carbon Dioxide 27 mmol/L (22-30); Chloride 98 mmol/L (98-107); Estimated CRCL calculation 95 ml/min; Estimated Glomerular Filt Rate > 60; Glucose 206 mg/dL (65-110); INR 1.1; Prothrombin Time 14.2 Seconds (11.1-14.7); Sodium 131 mmol/L (137-145)
[2021-11-06 09:53] LABS: Troponin I 0.026 ng/mL (0.000-0.034)
[2021-11-06 09:55] LABS: Hypochromasia 1+ (NORMAL)
[2021-11-06] MEDS: MORPHINE SULFATE (*CRX) 4 MG/ML INJ IV PUSH (10:41)
[2021-11-06] MEDS: HYDROmorphone HCL INJ (*CRX) 1 MG/ML SYR 0.5 MG IV PUSH (13:42)
--- NOTE | 2021-11-06 14:53 | ED.GENADULT ---
HPI - General Adult General Chief complaint: Shortness of Breath/Dyspnea Stated complaint: SOB, abd distention Time Seen by Provider: 11/06/21 09:21 Source: patient Mode of arrival: EMS Limitations: no limitations History of Present Illness HPI narrative: 51-year-old with a history of cirrhosis of liver and ascites here with complaints of diffuse abdominal pain and shortness of breath for past few days. Patient states that his abdomen is bloated he denies any chest pain. No history of fever or chills. He states he has been taking Lasix as prescribed. 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 He denies any nausea, vomiting or blood in the stool. Onset (ago): day(s) (3) Radiation: non-radiation Severity: moderate Quality: aching Pain Consistency: constant Relieving factors: none Exacerbating factors: none Associated symptoms: denies other symptoms Related Data Home Medications Medication Instructions Recorded Confirmed furosemide 40 mg tablet 40 mg PO DAILY 05/27/21 10/01/21 duloxetine 30 mg capsule,delayed 30 mg PO DAILY 08/15/21 10/01/21 release metformin 500 mg tablet 500 mg BID 09/13/21 10/01/21 carvedilol 6.25 mg tablet 6.25 mg PO BID 10/01/21 10/01/21 Allergies Allergy/AdvReac Type Severity Reaction Status Date / Time No Known Allergies Allergy Verified 11/06/21 09:28 Review of Systems Review of Systems: All systems reviewed & are unremarkable except as noted in HPI and below Constitutional: Constitutional: Reports no additional constitutional complaints Eyes: Eyes: Reports no additional eye complaints ENT: Reports system reviewed and no additional complaints, except as documented Cardiovascular: Cardiovascular: Reports no additional cardiovascular complaints Respiratory: Respiratory: Reports as per HPI Gastrointestinal: Gastrointestinal: Reports as per HPI Musculoskeletal: Musculoskeletal: Reports no additional musculoskeletal complaints Integumentary/Breasts: Skin/Breast: Reports system reviewed and no additional complaints, except as docu Neurologic: Reports system reviewed and no additional complaints, except as documented PMF Past Medical History Medical History Arthritis Chronic anemia Cirrhosis of liver with ascites CVA (cerebral vascular accident) 2004 Gastric ulcer Gastroesophageal reflux disease History of kidney stones Hypertension Pericardial effusion Noted on CT and echocardiogram in August 2020. No evidence of tamponade. Portal hypertensive gastropathy Noted on endoscopy on 03/23/[address] Duran. Prostate cancer Status post radiation seed implantation. Prostate tumor Smoker Spontaneous bacterial peritonitis (04/2020) Testicular cancer Tobacco use Surgical History Surgical History History of appendectomy History of cholecystectomy History of inguinal hernia repair History of lithotripsy History of repair of right rotator cuff History of testicular surgery benign. Family History Family History Mother Family history of malignant neoplasm of breast in first degree relative Breast cancer Father Acute myocardial infarction Hypertension Heart disease Other Diabetes mellitus Maternal Unkle Other Family history of malignant neoplasm Social History Social History Social History: Surrogate decision maker: : Myra Worley 1st Marnie Felix, Aunt 2nd Code status: Full code Patient lives with his and son. He mentioned that his is battling stage 4 cancer. They have four children, which his youngest just graduated from [employer] and 2 of his daughters are striving to become MDs. Smoking packs per day: 1 Smoking cigarettes per day: 20.0 Years smoked: 25 S
== END 2021-11-06 15:37 | disposition home or self-care (01) ==
PROVIDERS: Emergency Provider Family Medicine
DX: K74.60 Unspecified cirrhosis of liver (principal); K76.6 Portal hypertension; K31.89 Other diseases of stomach and duodenum; D64.9 Anemia, unspecified; K21.9 Gastro-esophageal reflux disease without esophagitis; I10 Essential (primary) hypertension; M19.90 Unspecified osteoarthritis, unspecified site; Z86.73 Personal history of transient ischemic attack (TIA), and cerebral infarction without residual deficits; Z85.46 Personal history of malignant neoplasm of prostate; Z85.47 Personal history of malignant neoplasm of testis; Z87.442 Personal history of urinary calculi; Z92.3 Personal history of irradiation; Z87.891 Personal history of nicotine dependence; R00.0 Tachycardia, unspecified; R94.31 Abnormal electrocardiogram [ECG] [EKG]; N20.0 Calculus of kidney; Z79.84 Long term (current) use of oral hypoglycemic drugs
CPT/HCPCS: 36415; 71045; 74177; 76705; 80053; 84484; 85025; 85055; 85610; 93005; 96374; 96375; 99284; J1170; J2270; Q9967

== ENCOUNTER 2021-11-07 22:28 | Emergency (ER) | payer OTHER, SELFPAY ==
--- NOTE | ~2021-11-07 | XR_ITS ---
EXAMINATION: XR chest 2V DATE: 11/08/2021 01:07 INDICATION: Chest pain. Shortness of breath. TECHNIQUE: Frontal and lateral views of the chest were obtained. COMPARISON: Chest single view 11/06/2021, CT abdomen and pelvis 11/06/2021 FINDINGS: Emely B lines are noted, consistent mild pulmonary edema. No pleural effusion or pneumotho rax. There is enlargement of the cardiac silhouette. Surgical clips in the right upper quadrant are l ikely from cholecystectomy. IMPRESSION: 1. Mild pulmonary edema. 2. Enlargement of the cardiac silhouette, likely a combination of cardiomegaly and pericardial effusi on as seen by CT. Reviewed, dictated and finalized at location A. IMPRESSION: 1. Mild pulmonary edema. 2. Enlargement of the cardiac silhouette, likely a combination of cardiomegaly and pericardial effusion as seen by CT.
[2021-11-07 22:33] VITALS: BP 159/88; PULSE 108; RESP 23; TEMP 36.6; O2SAT 100
--- NOTE | 2021-11-07 23:01 | ECG_ITS ---
Measurements Intervals [place] Rate: 101 P: 29 CT: 156 QRS: 17 QRSD: 75 T: 32 QT: 354 QTc: 460 Interpretive Statements SINUS TACHYCARDIA POSSIBLE LEFT ATRIAL ENLARGEMENT INCOMPLETE RIGHT BUNDLE BRANCH BLOCK BORDERLINE ST-T WAVE ABNORMALITY- INF/LAT LEADS BASELINE ARTIFACT- I, II, AVR BORDERLINE ECG Electronically Signed On 11-08-2021 6:03:44 CDT by Og Brown D.O.
--- NOTE | 2021-11-07 23:04 | PC.NURSE ---
Pt heart rate noted by pharmacist in charge owner and GISSELL Cardenas to spike to the high 100's while pt at rest and pt reporting new onset chest pain. Orders placed per chest pain protocol, PA at bedside.
[2021-11-07 23:14] LABS: Basophils Percent Auto 0.9 % (0.2-1.2); Eosinophils Absolute Auto 0.1 K/mm3 (0-0.3); Eosinophils Percent Auto 1.8 % (0-4.4); Hematocrit 34.1 % (42.0-52.0); Hemoglobin 8.9 g/dL (14.0-18.0); Immature Granulocyte Absolute 0.01 K/mm3 (0.00-0.031); Immature Granulocyte Percent A 0.3 % (0-0.5); Immature Platelet Fraction Pct 9.4 % (0.9-11.2); Lymphocytes Absolute Auto 1.13 K/mm3 (0.9-3.2); Lymphocytes Percent Auto 33.3 % (18.3-44.2); Mean Corpuscular HGB Conc 26.1 g/dl (32-36); Mean Corpuscular Volume 76.5 fl (80-100); Mean Platelet Volume 10.2 fl (7.4-10.4); Monocytes Absolute Auto 0.4 K/mm3 (0.1-0.6); Monocytes Percent Auto 10.9 % (2.6-8.5); Neutrophils Absolute Auto 1.8 K/mm3 (1.3-6.7); Neutrophils Percent Auto 52.8 % (45.5-73.1); Platelet Count Result 111 k/mm3 (150-375); Red Blood Count 4.46 M/mm3 (4.6-6.20); Red Cell Distribution Width 19.2 % (11.5-14.5); White Blood Count 3.4 K/mm3 (4.5-10.0)
[2021-11-07 23:23] LABS: INR 1.2; Partial Thromboplastin Time 31.6 SECONDS (22.3-36.8); Prothrombin Time 14.3 Seconds (11.1-14.7)
[2021-11-07 23:24] LABS: Alanine Aminotransferase 10 U/L (6-50); Albumin Level 3.9 g/dL (3.5-5.1); Alkaline Phosphatase 146 U/L (38-126); Anion Gap 9 mmol/L (8-16); Aspartate Amino Transferase 37 U/L (17-59); Bilirubin,Total 0.3 mg/dL (0.2-1.3); Blood Urea Nitrogen 15 mg/dL (9-20); Calcium 8.5 mg/dL (8.4-10.2); Carbon Dioxide 25 mmol/L (22-30); Chloride 105 mmol/L (98-107); Estimated CRCL calculation 92 ml/min; Estimated Glomerular Filt Rate > 60; Glucose 195 mg/dL (65-110); Lipase 106 U/L (23-300); Potassium 3.3 mmol/L (3.4-5.0); Sodium 139 mmol/L (137-145)
[2021-11-07 23:35] LABS: Troponin I 0.032 ng/mL (0.000-0.034)
[2021-11-07 23:35] LABS: Anisocytosis 2+ (NORMAL); Hypochromasia 2+ (NORMAL)
--- NOTE | 2021-11-07 23:46 | ED.SOB ---
HPI - SOB/Dyspnea General Chief Complaint: Shortness of Breath/Dyspnea Stated Complaint: DIFF BREATHING Time Seen by Provider: 11/07/21 22:42 Source: patient Mode of arrival: EMS Limitations: no limitations History of Present Illness HPI Narrative: This is a 51 year old male that presents to the ER for shortness of breath. Sudden onset while sitting at home. He was placed on oxygen via [place] with relief. Reports he did have an episode of chest pressure when he got to the ED. Reports abdominal distention due to his cirrhosis. He has a senior technical manager that he sees at [facility] that is no longer practicing so he is trying to find a new doctor currently. Reports lower extremity edema. Denies fever or cough. Related Data Home Medications Medication Instructions Recorded Confirmed furosemide 40 mg tablet 40 mg PO DAILY 05/27/21 10/01/21 duloxetine 30 mg capsule,delayed 30 mg PO DAILY 08/15/21 10/01/21 release metformin 500 mg tablet 500 mg BID 09/13/21 10/01/21 carvedilol 6.25 mg tablet 6.25 mg PO BID 10/01/21 10/01/21 Allergies Allergy/AdvReac Type Severity Reaction Status Date / Time No Known Allergies Allergy Verified 11/06/21 09:28 Review of Systems Review of Systems: CONSTITUTIONAL: Denies fever CARDIOVASCULAR: Reports chest pain, and edema. RESPIRATORY: Reports dyspnea. Denies cough All systems reviewed & are unremarkable except as noted in HPI and below PMFSH Past Medical History Medical History Arthritis Chronic anemia Cirrhosis of liver with ascites CVA (cerebral vascular accident) 2004 Gastric ulcer Gastroesophageal reflux disease History of kidney stones Hypertension Pericardial effusion Noted on CT and echocardiogram in August 2020. No evidence of tamponade. Portal hypertensive gastropathy Noted on endoscopy on 03/23/[address] Duran. Prostate cancer Status post radiation seed implantation. Prostate tumor Smoker Spontaneous bacterial peritonitis (04/2020) Testicular cancer Tobacco use Surgical History Surgical History History of appendectomy History of cholecystectomy History of inguinal hernia repair History of lithotripsy History of repair of right rotator cuff History of testicular surgery benign. Family History Family History Mother Family history of malignant neoplasm of breast in first degree relative Breast cancer Father Acute myocardial infarction Hypertension Heart disease Other Diabetes mellitus Maternal Unkle Other Family history of malignant neoplasm Social History Social History Social History: Surrogate decision maker: : Myra Worley 1st Marnie [place], Aunt 2nd Code status: Full code Patient lives with his and son. He mentioned that his is battling stage 4 cancer. They have four children, which his youngest just graduated from [employer] and 2 of his daughters are striving to become MDs. 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 Gender identity (if verbalized by the patient): Male Sexual Orientation (if Verbalized by the Patient): Straight or Heterosexual Spiritual care concerns: No Agree to blood products: Yes Exam Narrative: GENERAL: Chronically ill-appearing, well-nourished, and in no acute distress. HEAD: Normocephalic, atraumatic. EYES: EOMI. CHEST: Clear to auscultation. No r
[2021-11-08] MEDS: MORPHINE SULFATE (*CRX) 4 MG/ML INJ IV PUSH (00:57)
[2021-11-08] MEDS: ONDANSETRON INJ 4 MG/2 ML VIAL IV PUSH (00:57)
[2021-11-08 01:26] LABS: SARS-CoV-2 RNA PCR Negative
[2021-11-08] MEDS: POTASSIUM CHLORIDE 20 MEQ TABLET 40 MEQ PO (02:27)
[2021-11-08] MEDS: FUROSEMIDE INJ 40 MG/4 ML VIAL 20 MG IV PUSH (02:30)
[2021-11-08] MEDS: HYDROmorphone HCL INJ (*CRX) 1 MG/ML SYR 0.5 MG IV PUSH (02:40)
[2021-11-08 02:44] VITALS: BP 147/84; PULSE 100; RESP 14; O2SAT 97
[2021-11-08 03:01] LABS: Magnesium 2.1 mg/dL (1.6-2.3)
[2021-11-08 03:21] LABS: NT Pro B Type Natriuretic Pept 1000 pg/mL (5-100)
[2021-11-08 03:25] LABS: Troponin I 0.034 ng/mL (0.000-0.034)
[2021-11-08 04:10] VITALS: BP 135/81; PULSE 100; RESP 20; O2SAT 97
== END 2021-11-08 04:12 | disposition home or self-care (01) ==
PROVIDERS: Physician Assistant; Emergency Provider Emergency Medicine
DX: R06.00 Dyspnea, unspecified (principal); E87.6 Hypokalemia; I47.2 Ventricular tachycardia; Z20.822 Contact with and (suspected) exposure to COVID-19; K74.60 Unspecified cirrhosis of liver; K76.6 Portal hypertension; K31.89 Other diseases of stomach and duodenum; K21.9 Gastro-esophageal reflux disease without esophagitis; I10 Essential (primary) hypertension; D64.9 Anemia, unspecified; Z86.73 Personal history of transient ischemic attack (TIA), and cerebral infarction without residual deficits; Z85.46 Personal history of malignant neoplasm of prostate; Z92.3 Personal history of irradiation; Z87.442 Personal history of urinary calculi; Z87.891 Personal history of nicotine dependence; Z79.84 Long term (current) use of oral hypoglycemic drugs
CPT/HCPCS: 36415; 71046; 80053; 83690; 83735; 83880; 84484; 85025; 85055; 85610; 85730; 93005; 96374; 96375; 99284; A9270; C9803; J1170; J1940; J2270; J2405; U0003; U0005

== ENCOUNTER 2021-11-11 12:20 | Emergency (ER) | payer OTHER, SELFPAY ==
--- NOTE | ~2021-11-11 | XR_ITS ---
XR ribs LT 2V DATE: 11/11/2021 13:11 INDICATION: Left lateral rib pain following a fall last night TECHNIQUE: 3 views COMPARISON: None FINDINGS: No displaced rib fracture is noted. No left pulmonary contusion, pleural effusion or pneumo thorax. IMPRESSION: No displaced rib fracture is evident Reviewed, dictated and finalized at location A.
[2021-11-11 12:28] VITALS: BP 163/101; PULSE 106; RESP 16; TEMP 37; O2SAT 100
--- NOTE | 2021-11-11 12:52 | ED.GENADULT ---
HPI - General Adult General Chief complaint: Unspecified Stated complaint: Rib Pain Time Seen by Provider: 11/11/21 12:55 Source: patient and RN notes reviewed Mode of arrival: ambulatory Limitations: no limitations History of Present Illness HPI narrative: 51-year-old male presents with concern for left rib pain after a fall last night. Reports he tripped and fell on the stairs causing left lateral rib pain. He reports it hurts to take deep breaths, certain position changes. Reports he has a history of rib fracture on the right after an injury. He reports history of esophageal varices and cirrhosis of the liver. He denies open skin, bruising, swelling. Denies shortness of breath. Related Data Home Medications Medication Instructions Recorded Confirmed furosemide 40 mg tablet 40 mg PO DAILY 05/27/21 10/01/21 duloxetine 30 mg capsule,delayed 30 mg PO DAILY 08/15/21 10/01/21 release metformin 500 mg tablet 500 mg BID 09/13/21 10/01/21 carvedilol 6.25 mg tablet 6.25 mg PO BID 10/01/21 10/01/21 Allergies Allergy/AdvReac Type Severity Reaction Status Date / Time No Known Allergies Allergy Verified 11/06/21 09:28 Review of Systems Review of Systems: CONSTITUTIONAL: Denies malaise, chills, sweats, or fever. CARDIOVASCULAR: Denies chest pain, palpitations, or edema. RESPIRATORY: Denies cough or dyspnea. SKIN: Denies rash or itching, bruising, redness, swelling. MUSCULOSKELETAL: Reports left rib pain NEUROLOGIC: Denies numbness, weakness All systems reviewed & are unremarkable except as noted in HPI and below PMFSH Past Medical History Medical History Arthritis Chronic anemia Cirrhosis of liver with ascites CVA (cerebral vascular accident) 2004 Gastric ulcer Gastroesophageal reflux disease History of kidney stones Hypertension Pericardial effusion Noted on CT and echocardiogram in August 2020. No evidence of tamponade. Portal hypertensive gastropathy Noted on endoscopy on 03/23/[address] Duran. Prostate cancer Status post radiation seed implantation. Prostate tumor Smoker Spontaneous bacterial peritonitis (04/2020) Testicular cancer Tobacco use Surgical History Surgical History History of appendectomy History of cholecystectomy History of inguinal hernia repair History of lithotripsy History of repair of right rotator cuff History of testicular surgery benign. Family History Family History Mother Family history of malignant neoplasm of breast in first degree relative Breast cancer Father Acute myocardial infarction Hypertension Heart disease Other Diabetes mellitus Maternal Unkle Other Family history of malignant neoplasm Social History Social History Social History: Surrogate decision maker: : Myra Worley 1st Marnie [place], Aunt 2nd Code status: Full code Patient lives with his and son. He mentioned that his is battling stage 4 cancer. They have four children, which his youngest just graduated from [employer] and 2 of his daughters are striving to become MDs. 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 Gender identity (if verbalized by the patient): Male Sexual Orientation (if Verbalized by the Patient): Straight or Heterosexual Spiritual care concerns: No Agree to blood products: Yes Comments At time
== END 2021-11-11 13:43 | disposition home or self-care (01) ==
PROVIDERS: Emergency Provider Nurse Practitioner
DX: S20.212A Contusion of left front wall of thorax, initial encounter (principal); W10.9XXA Fall (on) (from) unspecified stairs and steps, initial encounter; Z87.891 Personal history of nicotine dependence; M19.90 Unspecified osteoarthritis, unspecified site; K74.60 Unspecified cirrhosis of liver; Z86.73 Personal history of transient ischemic attack (TIA), and cerebral infarction without residual deficits; K21.9 Gastro-esophageal reflux disease without esophagitis; I10 Essential (primary) hypertension; Z85.46 Personal history of malignant neoplasm of prostate; Z85.47 Personal history of malignant neoplasm of testis
CPT/HCPCS: 71100; 99213; G0463

== ENCOUNTER 2021-12-09 10:06 | Inpatient (IN) | payer OTHER, SELFPAY ==
[2021-12-09] VITALS (7 sets, daily range): BP systolic 148–171; BP diastolic 85–100; PULSE 98–107; RESP 16–25; TEMP 36.4–36.7; O2SAT 97–100; BMI 29.1
--- NOTE | ~2021-12-09 | US_ITS ---
EXAMINATION: US venous doppler [facility] DATE: 12/09/2021 11:30 INDICATION: Lower limb pain and swelling TECHNIQUE: Grayscale ultrasound images without and with compression and Doppler ultrasound images of the bilateral lower extremity veins were obtained. COMPARISON: None. FINDINGS: The visualized portions of right common femoral vein, profunda (deep) femoral vein, femoral vein, pop liteal vein, posterior tibial veins, peroneal veins, lesser saphenous vein and greater saphenous vein outflow are patent. The visualized portions of left common femoral vein, profunda femoral vein, femoral vein, popliteal v ein, posterior tibial veins, peroneal veins, lesser saphenous vein and greater saphenous vein outflow are patent. Subcutaneous edema at the left calf. IMPRESSION: 1. No deep venous thrombosis in either lower limb. Reviewed, dictated and finalized at location A.
--- NOTE | ~2021-12-09 | XR_ITS ---
EXAMINATION: XR foot RT min 3V DATE: 12/10/2021 12:56 INDICATION: Right foot pain TECHNIQUE: Dorsoplantar, lateral, and 2 oblique views of the right foot were obtained. COMPARISON: None. FINDINGS: There is dorsal soft tissue swelling of the foot overlying the distal metatarsals. No acute fracture is identified. There is mild osteoarthritis of multiple interphalangeal joints. IMPRESSION: 1. Dorsal soft tissue swelling of the foot without underlying osseous abnormality identified. Reviewed, dictated and finalized at location A. IMPRESSION: 1. Dorsal soft tissue swelling of the foot without underlying osseous abnormali ty identified.
--- NOTE | ~2021-12-09 | XR_ITS ---
EXAMINATION: XR chest 2V DATE: 12/09/2021 10:57 INDICATION: Chest pressure. Congestive heart failure. TECHNIQUE: PA and lateral views of the chest were obtained. COMPARISON: Chest radiograph dated 11/11/2021 FINDINGS: Enlarged somewhat globular cardiac silhouette which could be due to cardiomegaly and/or pericardial e ffusion. Pulmonary vascular congestion. Mild reticular opacities right costophrenic angle which could represent atelectasis or minimal pulmonary edema. No pleural effusion or pneumothorax. A few chronic compression fractures at the thoracolumbar junction. IMPRESSION: 1. Enlarged cardiac silhouette which could represent cardiomegaly and/or pericardial effusion (both p resent on CT dated 05/27/2021). 2. Pulmonary vascular congestion with minimal pulmonary edema versus atelectasis at the right costoph renic angle. Reviewed, dictated and finalized at location A. IMPRESSION: 1. Enlarged cardiac silhouette which could represent cardiomegaly and/or perica rdial effusion (both present on CT dated 05/27/2021). 2. Pulmonary vascular congestion with minimal pulmonary edema versus atelectasi s at the right costophrenic angle.
--- NOTE | ~2021-12-09 | XR_ITS ---
EXAMINATION: XR foot LT min 3V DATE: 12/10/2021 12:56 INDICATION: Left foot swelling TECHNIQUE: Dorsoplantar, lateral, and 2 oblique views of the left foot were obtained. COMPARISON: None. FINDINGS: There is dorsal soft tissue swelling of the foot overlying the distal metatarsals. The bone s are osteopenic which limits the sensitivity for fracture however none is seen. There is mild osteoa rthritis of multiple interphalangeal joints. IMPRESSION: 1. Dorsal soft tissue swelling of the distal foot without acute osseous abnormality identified. Reviewed, dictated and finalized at location A. IMPRESSION: 1. Dorsal soft tissue swelling of the distal foot without acute osseous abnorma lity identified.
--- NOTE | 2021-12-09 10:19 | ECG_ITS ---
Measurements Intervals [place] Rate: 107 P: 50 ID: 162 QRS: 63 QRSD: 84 T: 55 QT: 360 QTc: 482 Interpretive Statements SINUS TACHYCARDIA POSSIBLE LEFT ATRIAL ENLARGEMENT [-0.1mV P WAVE IN V1/V2] INCOMPLETE RIGHT BUNDLE BRANCH BLOCK ABNORMAL RHYTHM ECG COMPARED TO ECG 11/07/2021 23:06:00 NO SIGNIFICANT CHANGES Electronically Signed On 12-09-2021 15:49:58 CDT by Booker Mei M.D.
[2021-12-09 10:35] LABS: Basophils Percent Auto 0.5 % (0.2-1.2); Hematocrit 31.7 % (42.0-52.0); Hemoglobin 8.4 g/dL (14.0-18.0); Immature Granulocyte Absolute 0.02 K/mm3 (0.00-0.031); Immature Granulocyte Percent A 0.5 % (0-0.5); Immature Platelet Fraction Pct 9.3 % (0.9-11.2); Lymphocytes Absolute Auto 0.62 K/mm3 (0.9-3.2); Lymphocytes Percent Auto 15.9 % (18.3-44.2); Mean Corpuscular HGB Conc 26.5 g/dl (32-36); Mean Corpuscular Hemoglobin 21.2 pg (26-34); Mean Corpuscular Volume 79.8 fl (80-100); Mean Platelet Volume 10.7 fl (7.4-10.4); Monocytes Absolute Auto 0.5 K/mm3 (0.1-0.6); Monocytes Percent Auto 12.6 % (2.6-8.5); Neutrophils Absolute Auto 2.7 K/mm3 (1.3-6.7); Neutrophils Percent Auto 69.5 % (45.5-73.1); Platelet Count Result 96 k/mm3 (150-375); Red Blood Count 3.97 M/mm3 (4.6-6.20); Red Cell Distribution Width 23.6 % (11.5-14.5); White Blood Count 3.9 K/mm3 (4.5-10.0)
--- NOTE | 2021-12-09 10:39 | ED.GENADULT ---
HPI - General Adult General Chief complaint: Recheck/Abnormal Lab/Rx Stated complaint: fluid build up - hard to breathe Time Seen by Provider: 12/09/21 10:39 History of Present Illness HPI narrative: Patient is a 51-year-old male with a history of HFpEF (last echo 10/04 EF 55%), cirrhosis of liver with ascites, GI bleed with esophageal varices status post banding, here for evaluation of increased shortness of breath for the past several days. Patient states that he has been feeling short of breath when he is up and moving around is lying down flat, which has been difficult to fall asleep. Patient notes that he has had lots of fluid onto his bilateral lower extremities, he does take Lasix and spironolactone but states these are not helping. Notes that his bilateral calfs are cramping and uncomfortable, does state that he usually does not have pain with CHF exacerbations. Additionally reports some discomfort in his chest that he attributes to increased fluids . Denies nausea, vomiting, abdominal pain, fevers, chills, cough. Related Data Home Medications Medication Instructions Recorded Confirmed furosemide 40 mg tablet 40 mg PO DAILY 05/27/21 12/09/21 carvedilol 6.25 mg tablet 6.25 mg PO BID 10/01/21 12/09/21 acetaminophen 325 mg capsule 650 mg PO PRN PRN Pain 12/09/21 12/09/21 (Tylenol) spironolactone 50 mg tablet 25 mg PO QID 12/09/21 12/09/21 (Aldactone) Allergies Allergy/AdvReac Type Severity Reaction Status Date / Time No Known Allergies Allergy Verified 12/09/21 10:34 Review of Systems Review of Systems: Gen: Denies fevers or chills Eyes: Denies eye pain or visual change ENT: Denies congestion Respiratory: Reports shortness of breath. Denies cough CV: Denies chest pain or palpitations GI: Denies abdominal pain nausea, emesis or diarrhea : denies burning, urgency, frequency or hematuria Musculoskeletal: Reports bilateral lower extremity swelling. Denies back pain or muscle pain Neuro: Denies numbness, tingling, weakness or focal weakness Skin: Denies rash Except as documented, all other systems reviewed and negative [facility] Past Medical History Medical History Arthritis Chronic anemia Cirrhosis of liver with ascites CVA (cerebral vascular accident) 2004 Gastric ulcer Gastroesophageal reflux disease History of kidney stones Hypertension Pericardial effusion Noted on CT and echocardiogram in August 2020. No evidence of tamponade. Portal hypertensive gastropathy Noted on endoscopy on 03/23/[address] Duran. Prostate cancer Status post radiation seed implantation. Prostate tumor Smoker Spontaneous bacterial peritonitis (04/2020) Testicular cancer Tobacco use Surgical History Surgical History History of appendectomy History of cholecystectomy History of inguinal hernia repair History of lithotripsy History of repair of right rotator cuff History of testicular surgery benign. Family History Family History Mother Family history of malignant neoplasm of breast in first degree relative Breast cancer Father Acute myocardial infarction Hypertension Heart disease Other Diabetes mellitus Maternal Unkle Other Family history of malignant neoplasm Social History Social History Social History: Surrogate decision maker: : Myra Worley 1st Marnie [place], Aunt 2nd Code status: Full code Patient lives with his and son. He mentioned that his is battling stage 4 cancer. They have four children, which his youngest just graduated from [employer] and 2 of his daughters are striving to become MDs. Smoking packs per day: 0.5 Smoking cigarettes per day: 10.0 Years smoked: 50 Smoking pack-years: 25.00 Smoking status: Former smoker Tobacco type: cigarettes Second hand tobacco smoke expo
[2021-12-09] MEDS: ASPIRIN 81 MG CHEWABLE TABLET 324 MG PO (10:42)
[2021-12-09 10:45] LABS: INR 1.2; Prothrombin Time 14.4 Seconds (11.1-14.7)
[2021-12-09 10:46] LABS: Alanine Aminotransferase 11 U/L (6-50); Alkaline Phosphatase 179 U/L (38-126); Anion Gap 5 mmol/L (8-16); Aspartate Amino Transferase 33 U/L (17-59); Bilirubin,Total 0.9 mg/dL (0.2-1.3); Blood Urea Nitrogen 10 mg/dL (9-20); Calcium 8.3 mg/dL (8.4-10.2); Carbon Dioxide 28 mmol/L (22-30); Chloride 102 mmol/L (98-107); Estimated CRCL calculation 84 ml/min; Estimated Glomerular Filt Rate > 60; Glucose 191 mg/dL (65-110); Lipase 62 U/L (23-300); Partial Thromboplastin Time 29.2 SECONDS (22.3-36.8); Potassium 3.8 mmol/L (3.4-5.0); Sodium 135 mmol/L (137-145)
[2021-12-09 10:51] LABS: Anisocytosis 1+ (NORMAL); Hypochromasia 1+ (NORMAL); Microcytosis 1+ (NORMAL); Platelet Estimate Decreased (Adequate)
[2021-12-09 10:57] LABS: Troponin I 0.028 ng/mL (0.000-0.034)
[2021-12-09 11:18] LABS: NT Pro B Type Natriuretic Pept 1250 pg/mL (5-100)
[2021-12-09] MEDS: FUROSEMIDE INJ 40 MG/4 ML VIAL IV PUSH ×2 (11:30→16:15)
[2021-12-09 12:28] LABS: Lactic Acid Reflex 0.8 mmol/L (0.7-2.0)
[2021-12-09 13:16] LABS: Creatine Kinase 53 U/L (55-170)
[2021-12-09 13:32] LABS: Troponin I 0.031 ng/mL (0.000-0.034)
--- NOTE | 2021-12-09 15:18 | PC.NURSE ---
called [facility] provider for diet orders, pain medication, and accucheck orders, awaiting call back.
[2021-12-09] MEDS: ACETAMINOPHEN 325 MG TABLET 650 MG PO (15:38)
--- NOTE | 2021-12-09 16:52 | PM.IMHP ---
H&P: HPI History of Present Illness Date/Time: Patient requires inpatient monitoring with expected length of stay to exceed 2 midnights for management of care. 12/09/21 16:52 Chief Complaint: Shortness of breath Narrative: Mr. Worley is a 51 year old gentleman who presented emergency room with complaints of increasing edema and shortness of breath. Patient states that on he noticed he was having increasing edema and increasing shortness of breath. Patient states that he did not call his clinical transformation specialist to see if they had any instructions for him to adjust his medications. Patient states that he does not have a primary care provider. Patient denies any chest pain, lightheadedness, dizziness, syncopal, or near syncopal episodes. Patient states that he did recently have an increase in his Aldactone to 25 mg q.i.d.. Patient states he has been taking all medications without any difficulty. Patient states with his increasing edema he has been having bilateral lower extremity pain. Patient denies any abdominal pain, nausea, vomiting, constipation, or diarrhea. Patient states he does have a known history of cirrhosis and has had esophageal banding performed at [facility] in the past. Patient states he has had no issues with this recently. Patient denies any dark tarry stools, bright red stools, or hematemesis. Patient has a known history of pericardial effusion that was noted on last admission. Patient also has a known history of cirrhosis, ascites, pancytopenia secondary to his cirrhosis of the liver, esophageal varices which have been banded in the past, and CVA. Review of Systems Review of Systems: A 12 point review of systems was completed patient all pertinent positive and negative per HPI the remainder are unremarkable. [facility] Past Medical History Medical History Arthritis Chronic anemia Cirrhosis of liver with ascites CVA (cerebral vascular accident) 2004 Gastric ulcer Gastroesophageal reflux disease History of kidney stones Hypertension Pericardial effusion Noted on CT and echocardiogram in August 2020. No evidence of tamponade. Portal hypertensive gastropathy Noted on endoscopy on 03/23/[address] Duran. Prostate cancer Status post radiation seed implantation. Prostate tumor Smoker Spontaneous bacterial peritonitis (04/2020) Testicular cancer Tobacco use Surgical History Surgical History History of appendectomy History of cholecystectomy History of inguinal hernia repair History of lithotripsy History of repair of right rotator cuff History of testicular surgery benign. Family History Family History Mother Family history of malignant neoplasm of breast in first degree relative Breast cancer Father Acute myocardial infarction Hypertension Heart disease Other Diabetes mellitus Maternal Unkle Other Family history of malignant neoplasm Social History Social History Social History: Surrogate decision maker: : Myra Worley 1st Marnie [place], Aunt 2nd Code status: Full code Patient lives with his and son. He mentioned that his is battling stage 4 cancer. They have four children, which his youngest just graduated from [employer] and 2 of his daughters are striving to become MDs. Smoking packs per day: 0.5 Smoking cigarettes per day: 10.0 Years smoked: 50 Smoking pack-years: 25.00 Smoking status: Former smoker Tobacco type: cigarettes Second hand tobacco smoke exposure: Yes Smoking end date: 12/09/20 Alcohol intake: never Drinks per week: 0 Alcohol use details: Beer Substance use: never Substance use type: does not use Additional living arrangements comments: Resides in [place] with his and 6-year-old son Additional occupation/education comments:
[2021-12-09 16:53] LABS: Troponin I 0.037 ng/mL (0.000-0.034)
--- NOTE | 2021-12-09 16:56 | PC.NURSE ---
Addendum entered by Lora Pedroza RN 12/09/21 16:57: Critical trop reported to Majo 0.037 trending up. Original Note: reported critical trop to Rachel azevedo
--- NOTE | 2021-12-09 17:36 | PC.NURSE ---
called Nataliia, pt requesting something stronger for pain, tylenol 650mg po given, states he takes norco and morphine last time he was here.
--- NOTE | 2021-12-09 17:42 | PC.NURSE ---
This patient, Matt Worley II, was admitted to 3 [facility] Surg Room 309-01 report received from Pauline Torres ed arrived at 1435. Patient/family oriented to hospital policies and general routines including ID bracelet, bed and alarms, visiting hours, pain management, procedures, bathroom and other care routines, personal items, smoking policy, room service/diet, and visiting hours. Information on how to activate the Rapid Response Team has been discussed. Patient/Family are encouraged to report perceived risks to care and to ask questions if they do not understand what they are told or what they should do.
[2021-12-09] MEDS: traMADol HCL (*CRX) 50 MG TABLET PO (17:50)
--- NOTE | 2021-12-09 17:55 | PC.NURSE ---
tramadol 50 mg po order for pain of this pt per Crystal.
[2021-12-09] MEDS: SPIRONOLACTONE 25 MG TABLET PO (23:01)
[2021-12-09] MEDS: carvediloL 6.25 MG TABLET PO (23:01)
[2021-12-09] MEDS: HYDROcodone/acetaminophen (*CRX) 5-325 MG TABLET 1 TAB PO (23:01)
[2021-12-09] MEDS: PANTOPRAZOLE 40 MG TABLET PO (23:01)
[2021-12-09 23:14] LABS: Glucose Point of Care 136 mg/dl (65-105)
[2021-12-09 23:31] LABS: Troponin I 0.054 ng/mL (0.000-0.034)
[2021-12-10] VITALS (13 sets, daily range): BP systolic 128–140; BP diastolic 73–87; PULSE 78–93; RESP 17–18; TEMP 35.8–36.8; O2SAT 95–99
--- NOTE | 2021-12-10 | ECHOL_ITS ---
Patient Info Name: Matt Worley Age: 51 years : 1970 Gender: Male Ht: 65 in Wt: 175 lbs BSA: 1.93 m2 HR: 88 bpm BP: 135 / 73 mmHg Heart Rhythm: Sinus Rhythm Technical Quality: Good Exam Date: 12/10/2021 1:25 PM Exam Location: [facility] Patient Status: Inpatient Admit Date: 12/09/2021 Staff Ordering Physician: Destiny Chinchilla MD Patternmaker Wood: Leighann Florian RDCS Attending Provider: Harjeet Yusuf MD Referring Physician: Amor SALAS; Exam Type: CA echo limited Study Info Indications I31.3 - Pericardial effusion (noninflammatory) Limited two-dimensional transthoracic echocardiogram is performed. Summary 1. Limited study to check pericardial effusion. 2. Normal left ventricular size and thickness. Left ventricular function at the lower end of normal, EF. 3. Normal left ventricular size and thickness. Overall good left ventricular function, EF estimated 55%. No focal wall motion abnormalities. Diastolic function not evaluated. 4. Mild left atrial enlargement. 5. Moderate pericardial effusion, 2.0 cm posteriorly, 1.0 cm anteriorly. 6. Occasional right atrial collapse during ventricular systole. Some increased variation of velocity across the tricuspid valve. No evidence of right ventricular collapse. Normal inferior vena cava with normal respiratory variation. Thus probably no significant clinical tamponade. 7. Valves not interrogated in detail in the study. 8. Normal sinus rhythm. Left Ventricle Left ventricular chamber dimension is normal. Left ventricular systolic function is mildly reduced, estimated at 55-60%. There is no increased left ventricular wall thickness. Left ventricular septal wall motion is normal. The left ventricular diastolic function is normal. Right Ventricle Right ventricular chamber dimension is normal. Right ventricular systolic function is normal. Left Atria Left atrial chamber dimension is mildly enlarged. Right Atria Right atrial chamber dimension is normal. Aortic Valve The aortic valve is not well visualized. There is no aortic valve sclerosis. There is no aortic valve stenosis. There is no aortic valve regurgitation. Pulmonic Valve The pulmonic valve is normal. There is no pulmonic valve stenosis. There is no pulmonic regurgitation. Mitral Valve The mitral valve has normal leaflets. There is no mitral valve stenosis. There is no mitral valve regurgitation. Tricuspid Valve The tricuspid valve leaflets are normal. There is no significant tricuspid valve stenosis. There is no tricuspid valve regurgitation. No pulmonary hypertension, estimated pulmonary arterial systolic pressure is Empty. Pericardium/Pleural The pericardium appears normal. There is moderate pericardial effusion. Inferior Vena Cava Normal inferior vena cava with >50% collapse upon inspiration consistent with Empty right atrial pressure, Empty. Aorta The aortic root size at the sinus of Valsalva is normal. The prox ascending aorta size is normal. Report Signatures Amended by Destiny Chinchilla on 12/10/2021 20:32
[2021-12-10] MEDS: HYDROcodone/acetaminophen (*CRX) 5-325 MG TABLET 1 TAB PO ×3 (05:15→20:00)
[2021-12-10 06:46] LABS: Eosinophils Percent Auto 1.3 % (0-4.4); Hematocrit 30.2 % (42.0-52.0); Hemoglobin 8.1 g/dL (14.0-18.0); Immature Granulocyte Absolute 0.01 K/mm3 (0.00-0.031); Immature Granulocyte Percent A 0.3 % (0-0.5); Immature Platelet Fraction Pct 10.2 % (0.9-11.2); Lymphocytes Absolute Auto 0.64 K/mm3 (0.9-3.2); Mean Corpuscular HGB Conc 26.8 g/dl (32-36); Mean Corpuscular Hemoglobin 21.7 pg (26-34); Mean Corpuscular Volume 80.7 fl (80-100); Monocytes Absolute Auto 0.4 K/mm3 (0.1-0.6); Monocytes Percent Auto 13.8 % (2.6-8.5); Neutrophils Absolute Auto 1.9 K/mm3 (1.3-6.7); Neutrophils Percent Auto 62.6 % (45.5-73.1); Platelet Count Result 77 k/mm3 (150-375); Red Blood Count 3.74 M/mm3 (4.6-6.20); Red Cell Distribution Width 24.4 % (11.5-14.5); White Blood Count 3.1 K/mm3 (4.5-10.0)
[2021-12-10 06:48] LABS: Hemoglobin A1C 6.9 % (<5.7)
[2021-12-10 07:04] LABS: Alanine Aminotransferase 8 U/L (6-50); Albumin Level 3.4 g/dL (3.5-5.1); Alkaline Phosphatase 146 U/L (38-126); Anion Gap 4 mmol/L (8-16); Aspartate Amino Transferase 30 U/L (17-59); Blood Urea Nitrogen 16 mg/dL (9-20); Calcium 8.3 mg/dL (8.4-10.2); Carbon Dioxide 30 mmol/L (22-30); Chloride 98 mmol/L (98-107); Estimated CRCL calculation 75 ml/min; Estimated Glomerular Filt Rate > 60; Glucose 166 mg/dL (65-110); Magnesium 1.7 mg/dL (1.6-2.3); Potassium 3.5 mmol/L (3.4-5.0); Sodium 132 mmol/L (137-145)
[2021-12-10 07:49] LABS: Hypochromasia 1+ (NORMAL); Platelet Estimate Decreased (Adequate)
[2021-12-10] MEDS: SPIRONOLACTONE 25 MG TABLET PO ×4 (09:02→20:00)
[2021-12-10] MEDS: FUROSEMIDE INJ 40 MG/4 ML VIAL IV PUSH ×2 (09:02→17:12)
[2021-12-10] MEDS: carvediloL 6.25 MG TABLET PO (09:02)
[2021-12-10] MEDS: PANTOPRAZOLE 40 MG TABLET PO ×2 (09:02→20:01)
--- NOTE | 2021-12-10 11:20 | PM.CNCAR ---
Assessment and Plan Assessment and plan (1) Acute on chronic diastolic CHF (congestive heart failure): Code(s): I50.33 - Acute on chronic diastolic (congestive) heart failure Status: Acute Assessment and Plan: Patient does not carry a diagnosis of CHF, but chest x-rays the spring of shown pulmonary vascular congestion. BNP is very modestly elevated. I think the patient's volume overload is a combination of diastolic heart failure and his liver failure/ascites. Agree with furosemide 40 mg IV push b.i.d.; responding well. Add Jardiance 10 mg daily. Continue spironolactone 100 mg daily Daily BMP May need to increase furosemide dose as an outpatient. Increase carvadilol; consider ARB or ACEI also. Encouraged the patient to check daily weights and call if he gains more than 3 lb as an outpatient. (2) Pericardial effusion: Code(s): I31.3 - Pericardial effusion (noninflammatory) Status: Acute Assessment and Plan: Chronic pericardial effusion noted since 2020, not hemodynamically significant. Re-evaluate with a limited echo. (3) Cirrhosis: Qualifiers: Ascites presence: with ascites Hepatic cirrhosis type: alcoholic cirrhosis Qualified Code(s): K70.31 - Alcoholic cirrhosis of liver with ascites Code(s): K74.60 - Unspecified cirrhosis of liver Status: Acute Assessment and Plan: Unknown etiology Causing ascites and edema. Also history of pancytopenia, esophageal varices Followed by [facility]; appointment with new metal finish inspector is not until February (4) Hypertension: Code(s): I10 - Essential (primary) hypertension Status: Chronic Assessment and Plan: Not at goal Increase carvedilol to: 12.5 mg b.i.d. (5) Elevated troponin: Code(s): R77.8 - Other specified abnormalities of plasma proteins Status: Acute Assessment and Plan: Flatly elevated troponin, probably secondary to CHF (6) Pulmonary hypertension: Code(s): I27.20 - Pulmonary hypertension, unspecified Status: Acute Assessment and Plan: RVSP noted to be 64 mmHg on most recent Echo Apnea link History of Present Illness History of Present Illness Consult date/time: 12/10/21 11:20 Reason For Visit: HF exacerbation Narrative: Matt hairston is a 51 y.o. omi whom we were asked to see by Majo Iglesias for our advice and opinion regarding CHF, in consultation. He is followed by Dr. Chowdary in our office for a chronic pericardial effusion, and has a history of anemia, GI bleeding (last admission for this 09/2021). 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 The patient has had several admissions and ER visits this year for GI bleeding abdominal pain etc. His metal finish inspector, at [facility], has left and he is waiting to see his new metal finish inspector but the appointment is not until February. He has never had a liver biopsy. 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 He Was last seen 10/21/2021 in our office his spironolactone was increased to: 100 mg daily because of increasing shortness of breath and ascites. The patient has had problems with increasing swelling and dyspnea for the past week with orthopnea and PND. He states he is compliant with his furosemide and spironolactone as well as low-salt diet. He does not drink excessive fluids at home, and does not take any nonsteroidals. He does not check daily weights, although checking on EMR he gained 2.3 kilos since 11/06/2021. Review of Systems Review of Systems: No h/o cancer or blood clots. Constitutional: Constitutional: Denies fever(s) Eyes: Eyes: Denies blurry vision ENT: Denies dizziness Cardiovascular: Cardiovascular: Denies chest pain, Reports pedal edema, Reports leg edema, Denies lightheadedness and Denies palpitations Respirato
--- NOTE | 2021-12-10 12:17 | PM.IMPN ---
Progress Note: A&P Assessment and Plan (1) CHF (congestive heart failure): Code(s): I50.9 - Heart failure, unspecified Status: Acute Assessment and Plan: Acute on chronic diastolic heart failure. IV Lasix Cardiology consult Monitor intake and output Daily weight On carvedilol, spironolactone (2) Hyperglycemia: Code(s): R73.9 - Hyperglycemia, unspecified Status: Acute Assessment and Plan: Patient is hyperglycemic and states that he has never been told he is diabetic. A1c at 6.9 suggestive of diabetes mellitus With heart failure he might benefit from SGLT2 inhibitor for his diabetes as well Has already been started on Jardiance by Cardiology (3) Pancytopenia: Code(s): D61.818 - Other pancytopenia Status: Acute Assessment and Plan: Patient has chronic pancytopenia secondary to his chronic cirrhosis. Will continue to monitor patient's CBC. Patient denies any recent active bleeding. WBC in threes hemoglobin in the 8-9 platelet count 72 to 100 (4) Elevated troponin: Code(s): R77.8 - Other specified abnormalities of plasma proteins Status: Acute Assessment and Plan: Most likely secondary to patient's heart failure. Cardiology has been consult and appreciate further recommendations. Initial troponin was negative at 0.031 mild up trend to 0.05 Plan History of CVA She was removed cecitis initially versus GERD History of kidney stone Hypertension Bilateral feet pain unclear etiology a peripheral neuropathy versus gouty arthritis related. Check uric acid level check x-rays. Given dose of colchicine sees details. Portal hypertensive gastropathy History of prostate cancer Lower extremity edema venous Doppler is negative for DVT Pericardial effusion: Echo last done on 09/13/2021 with ejection fraction 50-55%, grade 3 diastolic dysfunction moderately enlarged left atrium mild MR, moderate TR severe pulmonary hypertension with PASP 64 mm Hg small anterior pericardial effusion and large posterior fusion without tamponade physiology. 0.8 cm and 2.4 cm respectively. Reviewed Cardiology consult recommendation. Limited echo was been ordered. DVT prophylaxis contraindicated with thrombocytopenia Subjective Date/time seen: 12/10/21 12:17 Interval history: HPI:Mr. Worley is a 51 year old gentleman who presented emergency room with complaints of increasing edema and shortness of breath.? Patient states that on he noticed he was having increasing edema and increasing shortness of breath.? Patient states that he did not call his window installer to see if they had any instructions for him to adjust his medications.? Patient states that he does not have a primary care provider.? Patient denies any chest pain, lightheadedness, dizziness, syncopal, or near syncopal episodes.? Patient states that he did recently have an increase in his Aldactone to 25 mg q.i.d..? Patient states he has been taking all medications without any difficulty.? Patient states with his increasing edema he has been having bilateral lower extremity pain.? Patient denies any abdominal pain, nausea, vomiting, constipation, or diarrhea.? Patient states he does have a known history of cirrhosis and has had esophageal banding performed at [facility] in the past.? Patient states he has had no issues with this recently.? Patient denies any dark tarry stools, bright red stools, or hematemesis. Patient has a known history of pericardial effusion that was noted on last admission.? Patient also has a known history of cirrhosis, ascites, pancytopenia secondary to his cirrhosis of the liver, esophageal varices which have been banded in the past, and CVA. 12/10/2021 complains of bilateral feet pain. This going on since past week. Has not been able to walks. Any issues like this in the past. Shortness of breath on exertion. Leg swollen. Review of Systems Review of Systems: All systems reviewed & a
[2021-12-10 13:39] LABS: Uric Acid 6.3 mg/dL (3.5-8.5)
[2021-12-10] MEDS: COLCHICINE 0.6 MG TABLET PO (14:58)
[2021-12-10] MEDS: carvediloL 12.5 MG TABLET PO (19:59)
[2021-12-11] VITALS (8 sets, daily range): BP systolic 120–133; BP diastolic 70–85; PULSE 75–87; RESP 18–20; TEMP 36.2–36.6; O2SAT 92–93
[2021-12-11] MEDS: HYDROcodone/acetaminophen (*CRX) 5-325 MG TABLET 1 TAB PO ×3 (02:01→14:26)
[2021-12-11 06:28] LABS: Hematocrit 31.4 % (42.0-52.0); Hemoglobin 8.6 g/dL (14.0-18.0); Immature Platelet Fraction Pct 10.3 % (0.9-11.2); Mean Corpuscular HGB Conc 27.4 g/dl (32-36); Mean Corpuscular Hemoglobin 21.7 pg (26-34); Mean Corpuscular Volume 79.1 fl (80-100); Mean Platelet Volume 10.1 fl (7.4-10.4); Platelet Count Result 69 k/mm3 (150-375); Red Blood Count 3.97 M/mm3 (4.6-6.20); Red Cell Distribution Width 24.3 % (11.5-14.5); White Blood Count 2.5 K/mm3 (4.5-10.0)
[2021-12-11 06:34] LABS: Alanine Aminotransferase 7 U/L (6-50); Albumin Level 3.6 g/dL (3.5-5.1); Alkaline Phosphatase 142 U/L (38-126); Anion Gap 6 mmol/L (8-16); Aspartate Amino Transferase 25 U/L (17-59); Bilirubin,Total 0.8 mg/dL (0.2-1.3); Blood Urea Nitrogen 19 mg/dL (9-20); Calcium 8.5 mg/dL (8.4-10.2); Carbon Dioxide 33 mmol/L (22-30); Chloride 96 mmol/L (98-107); Estimated CRCL calculation 72 ml/min; Estimated Glomerular Filt Rate > 60; Glucose 148 mg/dL (65-110); Magnesium 1.8 mg/dL (1.6-2.3); Potassium 3.4 mmol/L (3.4-5.0); Sodium 135 mmol/L (137-145)
[2021-12-11] MEDS: SPIRONOLACTONE 25 MG TABLET PO ×3 (08:36→17:12)
[2021-12-11] MEDS: EMPAGLIFLOZIN 10 MG TABLET PO (08:37)
[2021-12-11] MEDS: PANTOPRAZOLE 40 MG TABLET PO (08:37)
[2021-12-11] MEDS: FUROSEMIDE INJ 40 MG/4 ML VIAL IV PUSH (08:38)
[2021-12-11] MEDS: carvediloL 12.5 MG TABLET PO (08:38)
--- NOTE | 2021-12-11 14:10 | PM.IMPN ---
Progress Note: A&P Assessment and Plan (1) CHF (congestive heart failure): Code(s): I50.9 - Heart failure, unspecified Status: Acute Assessment and Plan: Acute on chronic diastolic heart failure. IV Lasix Cardiology consult Monitor intake and output Daily weight On carvedilol, spironolactone Added on Jardiance (2) Hyperglycemia: Code(s): R73.9 - Hyperglycemia, unspecified Status: Acute Assessment and Plan: Patient is hyperglycemic and states that he has never been told he is diabetic. A1c at 6.9 suggestive of diabetes mellitus With heart failure he might benefit from SGLT2 inhibitor for his diabetes as well Has already been started on Jardiance by Cardiology (3) Pancytopenia: Code(s): D61.818 - Other pancytopenia Status: Acute Assessment and Plan: Patient has chronic pancytopenia secondary to his chronic cirrhosis. Will continue to monitor patient's CBC. Patient denies any recent active bleeding. WBC in threes hemoglobin in the 8-9 platelet count 72 to 100 (4) Elevated troponin: Code(s): R77.8 - Other specified abnormalities of plasma proteins Status: Acute Assessment and Plan: Most likely secondary to patient's heart failure. Cardiology has been consult and appreciate further recommendations. Initial troponin was negative at 0.031 mild up trend to 0.05 Plan History of CVA Cirrhosis of liver with ascites GERD History of kidney stone Hypertension Bilateral feet pain unclear etiology a peripheral neuropathy versus gouty arthritis related. Uric acid level is normal. X-ray feet with no signs of arthritis. Given dose of colchicine sees details. Portal hypertensive gastropathy History of prostate cancer Lower extremity edema venous Doppler is negative for DVT Pericardial effusion: Echo last done on 09/13/2021 with ejection fraction 50-55%, grade 3 diastolic dysfunction moderately enlarged left atrium mild MR, moderate TR severe pulmonary hypertension with PASP 64 mm Hg small anterior pericardial effusion and large posterior fusion without tamponade physiology. 0.8 cm and 2.4 cm respectively. Reviewed Cardiology consult recommendation. Limited echo was been ordered which revealed EF 55% moderate pericardial effusion 2 cm posterior and 1 cm anteriorly which is fairly stable size compared to previous echocardiogram. DVT prophylaxis contraindicated with thrombocytopenia Subjective Date/time seen: 12/11/21 14:10 Interval history: HPI:Mr. Worley is a 51 year old gentleman who presented emergency room with complaints of increasing edema and shortness of breath.? Patient states that on he noticed he was having increasing edema and increasing shortness of breath.? Patient states that he did not call his information technology architect to see if they had any instructions for him to adjust his medications.? Patient states that he does not have a primary care provider.? Patient denies any chest pain, lightheadedness, dizziness, syncopal, or near syncopal episodes.? Patient states that he did recently have an increase in his Aldactone to 25 mg q.i.d..? Patient states he has been taking all medications without any difficulty.? Patient states with his increasing edema he has been having bilateral lower extremity pain.? Patient denies any abdominal pain, nausea, vomiting, constipation, or diarrhea.? Patient states he does have a known history of cirrhosis and has had esophageal banding performed at [facility] in the past.? Patient states he has had no issues with this recently.? Patient denies any dark tarry stools, bright red stools, or hematemesis. Patient has a known history of pericardial effusion that was noted on last admission.? Patient also has a known history of cirrhosis, ascites, pancytopenia secondary to his cirrhosis of the liver, esophageal varices which have been banded in the past, and CVA. 12/10/2021 complains of bilateral feet pain. This going on s
--- NOTE | 2021-12-11 16:53 | PM.DS ---
DS: Admitting Diagnosis Discharge Date 12/11/2021 Admitting Diagnosis shortness of breath DS: Discharge Diagnosis Discharge Diagnosis (1) CHF (congestive heart failure): Code(s): I50.9 - Heart failure, unspecified Status: Acute Assessment and Plan: Acute on chronic diastolic heart failure. IV Lasix with 40 mg b.i.d.. Diuresed well. Good urine output with IV Lasix. Cardiology consulted . Jardiance added increased dose of carvedilol continued on spironolactone Advised daily weight and monitoring intake and output follow-up with cardiology closely as an outpatient basis (2) Hyperglycemia: Code(s): R73.9 - Hyperglycemia, unspecified Status: Acute Assessment and Plan: Patient is hyperglycemic and states that he has never been told he is diabetic. A1c at 6.9 suggestive of diabetes mellitus With heart failure he will benefit from SGLT2 inhibitor for his diabetes as well Has already been started on Jardiance by Cardiology which will be continued as an outpatient basis (3) Pancytopenia: Code(s): D61.818 - Other pancytopenia Status: Acute Assessment and Plan: Patient has chronic pancytopenia secondary to his chronic cirrhosis. Will continue to monitor patient's CBC. Patient denies any recent active bleeding. WBC in threes hemoglobin in the 8-9 platelet count 72 to 100 He will follow-up with his investment banking associate which is scheduled for January (4) Elevated troponin: Code(s): R77.8 - Other specified abnormalities of plasma proteins Status: Acute Assessment and Plan: Most likely secondary to patient's heart failure. Cardiology has been consult and appreciate further recommendations. Initial troponin was negative at 0.031 mild up trend to 0.05 Plan #History of CVA #Cirrhosis of liver with ascites #GERD #History of kidney stone #Hypertension #Bilateral feet pain unclear etiology a peripheral neuropathy versus gouty arthritis related. Uric acid level is normal. X-ray feet with no signs of arthritis. Given dose of colchicine without much improvement. Likely some neuropathy pain. Follow-up as an outpatient basis #Portal hypertensive gastropathy #History of prostate cancer #Lower extremity edema venous Doppler is negative for DVT #Pericardial effusion: Echo last done on 09/13/2021 with ejection fraction 50-55%, grade 3 diastolic dysfunction moderately enlarged left atrium mild MR, moderate TR severe pulmonary hypertension with PASP 64 mm Hg small anterior pericardial effusion and large posterior fusion without tamponade physiology. 0.8 cm and 2.4 cm respectively. Reviewed Cardiology consult recommendation. Limited echo was been ordered which revealed EF 55% moderate pericardial effusion 2 cm posterior and 1 cm anteriorly which is fairly stable size compared to previous echocardiogram. #DVT prophylaxis contraindicated with thrombocytopenia DS: Summary Hospital Course Hospital Course: see above Time Spent with Patient Time attestation: Total time spent providing and/or coordinating discharge services: 40 minutes Exam Narrative: Constitutional: Patient is well-nourished in no acute distress. Patient is alert and oriented x3 HEENT: Moist mucous membranes. No scleral icterus. No lymphadenopathy. Neck: No carotid bruits noted no JVD noted Lungs: Lung sounds are clear to auscultation bilaterally. No accessory muscle use. No rhonchi, rales, or wheezes noted. Cardiovascular: Apical pulse is regular rate and rhythm. S1-S2 noted, no S3 or S4 noted. No gallops, murmurs, or rubs noted. Abdomen: Soft, round, and nontender. No palpable masses. Extremities: trace edema to bilateral lower extremities. Patient complains of tenderness to bilateral feet with palpation. Range of motion ankle joint without tenderness Skin: No rashes or lesions. Warm and dry. Skin is intact. Neurological: No focal neurological deficits. Cranial nerves II-XII gross
== END 2021-12-11 17:33 | disposition home or self-care (01) | DRG 194 ==
LOC: ANHED 13:59 → ANH3MEDSUR 14:19
PROVIDERS: Nurse Practitioner Adult Health; Physician Assistant; Admitting Provider Student in an Organized Health Care Education/Training Program; Emergency Provider Emergency Medicine; Visit Provider Internal Medicine
DX: I11.0 Hypertensive heart disease with heart failure (principal); I50.33 Acute on chronic diastolic (congestive) heart failure; E11.65 Type 2 diabetes mellitus with hyperglycemia; D61.818 Other pancytopenia; K74.60 Unspecified cirrhosis of liver; E11.42 Type 2 diabetes mellitus with diabetic polyneuropathy; K21.9 Gastro-esophageal reflux disease without esophagitis; K76.6 Portal hypertension; K31.89 Other diseases of stomach and duodenum; I31.3 Pericardial effusion (noninflammatory); M19.90 Unspecified osteoarthritis, unspecified site; D64.9 Anemia, unspecified; I85.00 Esophageal varices without bleeding; Z86.73 Personal history of transient ischemic attack (TIA), and cerebral infarction without residual deficits; Z85.46 Personal history of malignant neoplasm of prostate; Z87.442 Personal history of urinary calculi; Z87.891 Personal history of nicotine dependence; Z85.47 Personal history of malignant neoplasm of testis; Z90.49 Acquired absence of other specified parts of digestive tract
CPT/HCPCS: 36415; 71046; 73630; 80053; 82550; 82948; 83036; 83605; 83690; 83735; 83880; 84484; 84550; 85025; 85027; 85055; 85610; 85730; 93005; 93308; 93970; 94762; 96374; 97161; 97165; 99285; A9270; J1940

== ENCOUNTER 2022-02-11 10:34 | Emergency (ER) | payer OTHER, SELFPAY ==
--- NOTE | ~2022-02-11 | XR_ITS ---
EXAMINATION: XR elbow LT min 3V DATE: 02/11/2022 11:27 INDICATION: Left elbow pain and swelling post fall TECHNIQUE: Anteroposterior, two oblique and lateral views of the left elbow were obtained. COMPARISON: None. FINDINGS: Alignment is normal. No fracture or joint effusion. Joint spaces are normal. Mild soft tissue swellin g posterior to the elbow and proximal forearm. IMPRESSION: 1. No left elbow joint effusion or osseous abnormality. Reviewed, dictated and finalized at location A.
--- NOTE | ~2022-02-11 | XR_ITS ---
XR ribs LT 2V w CXR 2V DATE: 02/11/2022 12:48 INDICATION: Fall. Anterior and lateral left rib pain TECHNIQUE: PA and lateral chest. 4 views of the left ribs. COMPARISON: 12/09/2021 PA and lateral chest FINDINGS: There is diffuse osteopenia. No displaced left rib fracture is noted. Cardiomegaly. Aortic arch calcification. No hilar or mediastinal enlargement. No pulmonary infiltrate or consolidation, pleural effusion or pulmonary vascular congestion or pneumo thorax. Chronic mild to moderate loss of height and anterior wedging of a number of thoracic vertebral bodies , also noted on 12/09/2021 lateral views of the chest. Status post cholecystectomy. IMPRESSION: Osteopenia; no displaced rib fracture is noted Cardiomegaly, aortic atherosclerosis Status post cholecystectomy Reviewed, dictated and finalized at location B.
[2022-02-11 11:07] VITALS: BP 185/93; PULSE 106; RESP 20; TEMP 37.1; O2SAT 99
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
--- NOTE | 2022-02-11 12:06 | PC.NURSE ---
Pt states he has cirrhosis and is not supposed to take ibuprofen.
[2022-02-11] MEDS: HYDROcodone/acetaminophen (*CRX) 5-325 MG TABLET 1 TAB PO (12:09)
[2022-02-11 13:40] VITALS: BP 160/110; PULSE 87; RESP 18; O2SAT 99
== END 2022-02-11 13:40 | disposition home or self-care (01) ==
PROVIDERS: Emergency Provider Emergency Medicine
DX: S50.02XA Contusion of left elbow, initial encounter (principal); D64.9 Anemia, unspecified; K74.60 Unspecified cirrhosis of liver; K21.9 Gastro-esophageal reflux disease without esophagitis; K76.6 Portal hypertension; K31.89 Other diseases of stomach and duodenum; Z85.46 Personal history of malignant neoplasm of prostate; Z86.73 Personal history of transient ischemic attack (TIA), and cerebral infarction without residual deficits; Z87.442 Personal history of urinary calculi; Z87.891 Personal history of nicotine dependence; I51.7 Cardiomegaly; I70.0 Atherosclerosis of aorta; W03.XXXA Other fall on same level due to collision with another person, initial encounter; W10.9XXA Fall (on) (from) unspecified stairs and steps, initial encounter
CPT/HCPCS: 36415; 71046; 71100; 73080; 80053; 82607; 82728; 82746; 83540; 83550; 85025; 85055; 99284; A4565; A9270

== ENCOUNTER 2022-02-14 09:43 | Outpatient (CLI) | payer OTHER, SELFPAY ==
--- NOTE | ~2022-02-14 | CT_ITS ---
EXAMINATION: CT abdomen wo con DATE: 02/14/2022 10:00 INDICATION: Abdominal pain. Cirrhosis. Umbilical hernia. TECHNIQUE: Computed tomography (CT) of the abdomen was performed without intravenous contrast. Startapp exposure control and iterative reconstruction technique were employed. Exam dose: 432.99 mGy-cm total exam DLP. COMPARISON: 11/06/2021 CT abdomen pelvis FINDINGS: Persistent moderate pericardial effusion. Cardiomegaly. Status post cholecystectomy. No pancreatic or bile duct dilatation. There is surface nodularity of liver consistent with history of cirrhosis. Splenomegaly, with 16.9 cm vertical dimension of the spleen. No hepatic, splenic, pancreatic, adrenal or renal space-occupying mass lesion is evident on this limi bebeto noncontrast examination. There is soft tissue infiltration of the adjacent to the pancreatic head, neck small bowel mesentery. Pancreatitis is not excluded. Clinical correlation is advised. Approximately 2 mm nonobstructing lower pole left renal calculus. No hydronephrosis of either kidney. Normal caliber of the abdominal aorta. No intraperitoneal or retroperitoneal mass lesion or adenopath y or ascites. Chronic compression fracture deformities of T10, T11 and T12 are again noted. IMPRESSION: Moderate pericardial effusion is again noted Status post cholecystectomy Cirrhosis, splenomegaly Nonspecific soft tissue fat infiltration around the pancreas and small bowel mesentery. Pancreatitis is not excluded. Clinical correlation is advised Chronic T10, T11 and T12 compression fractures Reviewed, dictated and finalized at Location A. Reviewed, dictated and finalized at location B. IMPRESSION: Moderate pericardial effusion is again noted Status post cholecystectomy Cirrhosis, splenomegaly Nonspecific soft tissue fat infiltration around the pancreas and small bowel me sentery. Pancreatitis is not excluded. Clinical correlation is advised Chronic T10, T11 and T12 compression fractures
== END 2022-02-14 09:44 | disposition home or self-care (01) ==
PROVIDERS: Visit Provider Nurse Practitioner Adult Health
DX: R10.9 Unspecified abdominal pain (principal); R11.0 Nausea; R63.4 Abnormal weight loss; I31.3 Pericardial effusion (noninflammatory); Z90.49 Acquired absence of other specified parts of digestive tract; K74.69 Other cirrhosis of liver; R16.1 Splenomegaly, not elsewhere classified
CPT/HCPCS: 74150

== ENCOUNTER 2022-03-06 10:06 | Emergency (ER) | payer OTHER, SELFPAY ==
--- NOTE | ~2022-03-06 | CT_ITS ---
EXAMINATION: CT abdomen pelvis w con DATE: 03/06/2022 11:38 INDICATION: Epigastric abdominal pain. TECHNIQUE: Computed tomography (CT) of the abdomen and pelvis was performed with 100 mL Omnipaque 350 intravenous contrast. Automated exposure control and iterative reconstruction technique were employe d. The dose-length product was 755.75 mGy-cm. COMPARISON: CT abdomen 02/14/2022 FINDINGS: The visualized portions of the lung bases demonstrate mild atelectasis. There is smooth sep arnoldo thickening bilaterally, consistent with mild pulmonary edema. There is a trace left pleural effus ion. Cardiomegaly is noted. There is a moderate-sized pericardial effusion. There are coronary artery calcifications. The liver demonstrates a nodular surface contour, consistent with cirrhosis. There i s splenomegaly measuring 17.9 cm. There are changes of cholecystectomy. The pancreas, adrenal glands, and right kidney are normal. There is a 2 mm stone in left kidney. There are changes of appendectomy . There are no dilated loops of bowel. There is edema of the anterior abdominal fat. Paraesophageal v arices are noted. There is a moderate volume of ascites. There is mild thoracolumbar spondylosis. The re are chronic compression fractures of T10, T11, and T12. IMPRESSION: 1. Mild pulmonary edema. 2. Moderate-sized pericardial effusion, stable from 02/14/2022. 3. Cirrhosis of the liver with portal venous hypertension. 4. Moderate volume of ascites. Reviewed, dictated and finalized at location A.
[2022-03-06 10:08] VITALS: BP 172/109; PULSE 89; RESP 22; TEMP 36.8; O2SAT 100
[2022-03-06 10:36] LABS: Basophils Percent Auto 0.5 % (0.2-1.2); Eosinophils Percent Auto 0.8 % (0-4.4); Hematocrit 42.7 % (42.0-52.0); Hemoglobin 12.7 g/dL (14.0-18.0); Immature Granulocyte Absolute 0.01 K/mm3 (0.00-0.031); Immature Granulocyte Percent A 0.3 % (0-0.5); Immature Platelet Fraction Pct 7.5 % (0.9-11.2); Lymphocytes Percent Auto 13.7 % (18.3-44.2); Mean Corpuscular HGB Conc 29.7 g/dl (32-36); Mean Corpuscular Hemoglobin 26.2 pg (26-34); Mean Corpuscular Volume 88.2 fl (80-100); Monocytes Absolute Auto 0.4 K/mm3 (0.1-0.6); Monocytes Percent Auto 11.5 % (2.6-8.5); Neutrophils Absolute Auto 2.7 K/mm3 (1.3-6.7); Neutrophils Percent Auto 73.2 % (45.5-73.1); Platelet Count Result 109 k/mm3 (150-375); Red Blood Count 4.84 M/mm3 (4.6-6.20); Red Cell Distribution Width 18.6 % (11.5-14.5); White Blood Count 3.7 K/mm3 (4.5-10.0)
[2022-03-06 10:50] LABS: INR 1.1; Prothrombin Time 13.9 Seconds (11.1-14.7)
--- NOTE | 2022-03-06 10:57 | ED.GENADULT ---
HPI - General Adult General Chief complaint: Abdominal Pain Stated complaint: Abd pain Time Seen by Provider: 03/06/22 10:38 History of Present Illness HPI narrative: this is a 52-year-old male presenting ED with chief complaint of abdominal pain, coffee-ground emesis and melena. patient was woken up by abdominal pain at 4:00 p.m. this morning. It is in the epigastric area. It is nonradiating. It is 10 out 10 intensity and constant. Says he has various pain like this years ago when he was 1st diagnosed with alcoholic liver cirrhosis. There are no exacerbating or alleviating factors. He has had 1 episode of nausea and vomiting with coffee-ground emesis. He says that his bowel movement this morning was dark red. Patient denies fever, chills, chest pain, difficulty breathing, urinary symptoms. Related Data Home Medications Medication Instructions Recorded Confirmed acetaminophen 325 mg capsule 650 mg PO PRN PRN Pain 12/09/21 12/23/21 (Tylenol) spironolactone 50 mg tablet 25 mg PO QID 12/09/21 12/23/21 (Aldactone) Allergies Allergy/AdvReac Type Severity Reaction Status Date / Time No Known Allergies Allergy Verified 03/06/22 10:16 Review of Systems Review of Systems: CONSTITUTIONAL: Denies night sweats. EYES: No eye pain ENT: Denies rhinorrhea CARDIOVASCULAR: Denies palpitations RESPIRATORY: Denies hemoptysis GASTROINTESTINAL: Admitshematemesis GENITOURINARY: Denies hematuria. SKIN: Denies rash MUSCULOSKELETAL: Denies myalgia. NEUROLOGIC: Denies weakness. PSYCHIATRIC: Denies delusions PMFSH Past Medical History Medical History Arthritis Chronic anemia Cirrhosis of liver with ascites CVA (cerebral vascular accident) 2004 Gastric ulcer Gastroesophageal reflux disease History of kidney stones Hypertension Pericardial effusion Noted on CT and echocardiogram in August 2020. No evidence of tamponade. Portal hypertensive gastropathy Noted on endoscopy on 03/23/[address] Duran. Prostate cancer Status post radiation seed implantation. Prostate tumor Smoker Spontaneous bacterial peritonitis (04/2020) Testicular cancer Tobacco use Surgical History Surgical History History of appendectomy History of cholecystectomy History of inguinal hernia repair History of lithotripsy History of repair of right rotator cuff History of testicular surgery benign. Family History Family History Mother Family history of malignant neoplasm of breast in first degree relative Breast cancer Father Acute myocardial infarction Hypertension Heart disease Other Diabetes mellitus Maternal Unkle Other Family history of malignant neoplasm Social History Social History Social History: Surrogate decision maker: : Myra Worley 1st Marnie [place], Aunt 2nd Code status: Full code Patient lives with his and son. He mentioned that his is battling stage 4 cancer. They have four children, which his youngest just graduated from [employer] and 2 of his daughters are striving to become MDs. 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 Gender identity (if verbalized by the patient): Male Sexual Orientation (if Verbalized by the Patient): Straight or Heterosexual Spiritual care concerns: No Agree to blood products: Y
[2022-03-06 10:58] LABS: Alanine Aminotransferase 18 U/L (6-50); Alkaline Phosphatase 218 U/L (38-126); Anion Gap 8 mmol/L (8-16); Aspartate Amino Transferase 51 U/L (17-59); Bilirubin,Total 0.7 mg/dL (0.2-1.3); Blood Urea Nitrogen 11 mg/dL (9-20); Calcium 8.9 mg/dL (8.4-10.2); Carbon Dioxide 27 mmol/L (22-30); Chloride 101 mmol/L (98-107); Estimated CRCL calculation 97 ml/min; Estimated Glomerular Filt Rate > 60; Glucose 174 mg/dL (65-110); Lipase 102 U/L (23-300); Potassium 4.3 mmol/L (3.4-5.0); Sodium 136 mmol/L (137-145)
[2022-03-06 11:01] LABS: Appearance Urine Clear (Clear); Bilirubin Urine 1+ (Negative); Blood Urine Negative (Negative); Color Urine Yellow (Yellow); Glucose Urine UA Negative (Negative); Ketones Urine Negative (Negative); Leukocyte Esterase Ur Negative LEU/UL (Negative); Nitrate Urine Negative (Negative); Protein Urine Negative (Negative); Specific Grav Ur 1.025 (1.001-1.035); Urobilinogen Urine 0.2 mg/dL (<2.0); pH Urine 5.5 (5.0-9.0)
[2022-03-06 11:10] LABS: Calcium Oxalate Crystals Urine Present /hpf; Mucus Urine Rare /lpf; Uric Acid Crystals Urine Present /hpf
[2022-03-06] MEDS: FAMOTIDINE 20 MG/2 ML VIAL IV PUSH (11:11)
[2022-03-06] MEDS: HYDROmorphone HCL INJ (*CRX) 1 MG/ML SYR 0.5 MG IV PUSH (11:11)
[2022-03-06] MEDS: PANTOPRAZOLE SODIUM IV 40 MG VIAL 80 MG IV PUSH (11:12)
[2022-03-06 11:26] LABS: Add Urine Microscopic? YES
[2022-03-06 13:03] VITALS: BP 163/108; PULSE 88; RESP 18; O2SAT 99
[2022-03-06 14:15] VITALS: BP 123/88; PULSE 88; RESP 19; O2SAT 97
== END 2022-03-06 14:15 | disposition home or self-care (01) ==
PROVIDERS: Emergency Provider Emergency Medicine
DX: K70.30 Alcoholic cirrhosis of liver without ascites (principal); K29.70 Gastritis, unspecified, without bleeding; I10 Essential (primary) hypertension; D64.9 Anemia, unspecified; M19.90 Unspecified osteoarthritis, unspecified site; Z86.73 Personal history of transient ischemic attack (TIA), and cerebral infarction without residual deficits; Z87.442 Personal history of urinary calculi; K21.9 Gastro-esophageal reflux disease without esophagitis; Z85.46 Personal history of malignant neoplasm of prostate; Z85.47 Personal history of malignant neoplasm of testis; Z87.891 Personal history of nicotine dependence; J81.1 Chronic pulmonary edema; I31.3 Pericardial effusion (noninflammatory); K76.6 Portal hypertension; R18.8 Other ascites
CPT/HCPCS: 36415; 74177; 80053; 81001; 83690; 85025; 85055; 85610; 85730; 86850; 86880; 86900; 86901; 86902; 96374; 96375; 99284; C9113; J1170; Q9967

== ENCOUNTER 2022-03-08 09:01 | Emergency (ER) | payer OTHER, SELFPAY ==
--- NOTE | ~2022-03-08 | XR_ITS ---
XR chest 2V 03/08/2022 10:01 Indication: Pulmonary edema Procedure: PA and lateral views of the chest Comparison: 11/07/2021 Findings: Cardiomegaly. No focal air space disease, pulmonary edema, pleural effusion or suspected pn eumothorax. No acute osseous abnormality. There are mild chronic compression deformities of T11 and T 12. Impression: 1: No acute cardiopulmonary disease. Reviewed, dictated and finalized at location A. Impression: 1: No acute cardiopulmonary disease.
[2022-03-08 09:08] VITALS: BP 175/108; PULSE 107; RESP 16; TEMP 36.6; O2SAT 100
--- NOTE | 2022-03-08 09:12 | ED.ABDPAIN ---
HPI - Abdominal Pain General Chief Complaint: Abdominal Pain Stated Complaint: abd pain since 0200 with nausea Time Seen by Provider: 03/08/22 09:04 History of Present Illness HPI narrative: 52 year old male with a history of alcoholic cirrhosis, follows with hepatology at [place], portal hypertension, known pericardial effusion (followed by Dr. Harp), pancytopenia, here for evaluation of abdominal pain for the past 3 days. Patient states the pain is described as a tightness across his entire abdomen. Patient presents frequently for this pain, has required paracentesis in the past. He was here 2 days ago for coffee-ground emesis and similar type of pain, his CT scan showed moderate amount of ascites, and he was discharged home after his pain was controlled. Patient states that the pain came back around 2:00 this morning and has been unrelenting. He denies any nausea, vomiting, fevers, chills, diarrhea, chest pain or shortness of breath today. He has been compliant with his 40 of Lasix twice daily. Related Data Home Medications Medication Instructions Recorded Confirmed acetaminophen 325 mg capsule 650 mg PO PRN PRN Pain 12/09/21 12/23/21 (Tylenol) spironolactone 50 mg tablet 25 mg PO QID 12/09/21 12/23/21 (Aldactone) Allergies Allergy/AdvReac Type Severity Reaction Status Date / Time No Known Allergies Allergy Verified 03/08/22 09:11 Review of Systems Review of Systems: Gen: Denies fevers or chills Eyes: Denies eye pain or visual change ENT: Denies congestion Respiratory: Denies shortness of breath or cough CV: Denies chest pain or palpitations GI: Reports abdominal pain. : denies burning, urgency, frequency or hematuria Musculoskeletal: Denies back pain or muscle pain Neuro: Denies numbness, tingling, weakness or focal weakness Skin: Denies rash Except as documented, all other systems reviewed and negative [facility] Past Medical History Medical History Arthritis Chronic anemia Cirrhosis of liver with ascites CVA (cerebral vascular accident) 2004 Gastric ulcer Gastroesophageal reflux disease History of kidney stones Hypertension Pericardial effusion Noted on CT and echocardiogram in August 2020. No evidence of tamponade. Portal hypertensive gastropathy Noted on endoscopy on 03/23/[address] Duran. Prostate cancer Status post radiation seed implantation. Prostate tumor Smoker Spontaneous bacterial peritonitis (04/2020) Testicular cancer Tobacco use Surgical History Surgical History History of appendectomy History of cholecystectomy History of inguinal hernia repair History of lithotripsy History of repair of right rotator cuff History of testicular surgery benign. Family History Family History Mother Family history of malignant neoplasm of breast in first degree relative Breast cancer Father Acute myocardial infarction Hypertension Heart disease Other Diabetes mellitus Maternal Unkle Other Family history of malignant neoplasm Social History Social History Social History: Surrogate decision maker: : Myra Worley 1st Marnie Felix, Aunt 2nd Code status: Full code Patient lives with his and son. He mentioned that his is battling stage 4 cancer. They have four children, which his youngest just graduated from [employer] and 2 of his daughters are striving to become MDs. Smoking packs per day: 0.5 Smoking cigarettes per day: 10.0 Years smoked: 50 Smoking pack-years: 25.00 Smoking status: Former smoker Tobacco type: cigarettes Second hand tobacco smoke exposure: Yes Smoking end date: 12/09/20 Alcohol intake: never Drinks per week: 0 Alcohol use details: Beer Substance use: never Substance use type: does not use Additional living arrangements comments:
[2022-03-08 09:26] LABS: Basophils Percent Auto 0.5 % (0.2-1.2); Eosinophils Absolute Auto 0.1 K/mm3 (0-0.3); Hematocrit 43.1 % (42.0-52.0); Immature Granulocyte Absolute 0.01 K/mm3 (0.00-0.031); Immature Granulocyte Percent A 0.2 % (0-0.5); Immature Platelet Fraction Pct 6.3 % (0.9-11.2); Lymphocytes Absolute Auto 0.64 K/mm3 (0.9-3.2); Lymphocytes Percent Auto 10.5 % (18.3-44.2); Mean Corpuscular HGB Conc 30.2 g/dl (32-36); Mean Corpuscular Hemoglobin 26.3 pg (26-34); Mean Corpuscular Volume 87.2 fl (80-100); Mean Platelet Volume 9.7 fl (7.4-10.4); Monocytes Absolute Auto 0.6 K/mm3 (0.1-0.6); Monocytes Percent Auto 10.5 % (2.6-8.5); Neutrophils Absolute Auto 4.7 K/mm3 (1.3-6.7); Neutrophils Percent Auto 77.3 % (45.5-73.1); Platelet Count Result 132 k/mm3 (150-375); Red Blood Count 4.94 M/mm3 (4.6-6.20); Red Cell Distribution Width 18.5 % (11.5-14.5); White Blood Count 6.1 K/mm3 (4.5-10.0)
[2022-03-08] MEDS: ONDANSETRON INJ 4 MG/2 ML VIAL IV PUSH (09:32)
[2022-03-08] MEDS: PANTOPRAZOLE SODIUM IV 40 MG VIAL IV PUSH (09:32)
[2022-03-08 09:33] LABS: Alanine Aminotransferase 18 U/L (6-50); Albumin Level 3.9 g/dL (3.5-5.1); Alkaline Phosphatase 173 U/L (38-126); Anion Gap 6 mmol/L (8-16); Aspartate Amino Transferase 51 U/L (17-59); Bilirubin,Total 0.8 mg/dL (0.2-1.3); Blood Urea Nitrogen 22 mg/dL (9-20); Calcium 8.6 mg/dL (8.4-10.2); Carbon Dioxide 28 mmol/L (22-30); Chloride 102 mmol/L (98-107); Estimated CRCL calculation 83 ml/min; Estimated Glomerular Filt Rate > 60; Glucose 187 mg/dL (65-110); Lipase 112 U/L (23-300); Potassium 4.5 mmol/L (3.4-5.0); Sodium 136 mmol/L (137-145)
[2022-03-08 10:05] LABS: Magnesium 1.8 mg/dL (1.6-2.3); Phosphorus 3.1 mg/dL (2.5-4.5)
[2022-03-08 10:15] LABS: NT Pro B Type Natriuretic Pept 1010 pg/mL (5-100)
[2022-03-08] MEDS: FUROSEMIDE INJ 40 MG/4 ML VIAL IV PUSH (10:17)
[2022-03-08 10:24] VITALS: BP 168/106; PULSE 99; RESP 20; O2SAT 99
[2022-03-08 10:25] LABS: Appearance Urine Clear (Clear); Bilirubin Urine 1+ (Negative); Blood Urine Negative (Negative); Color Urine Amber (Yellow); Glucose Urine UA Negative (Negative); Ketones Urine Trace mg/dL (Negative); Leukocyte Esterase Ur Negative LEU/UL (Negative); Nitrate Urine Negative (Negative); Protein Urine 1+ mg/dL (Negative)
[2022-03-08 10:34] LABS: Mucus Urine Rare /lpf; Squamous Epithelial Cell Urine Rare /hpf (Few); WBC Urine 0-3 /hpf
[2022-03-08 10:36] LABS: Add Urine Microscopic? YES
[2022-03-08] MEDS: MORPHINE SULFATE (*CRX) 4 MG/ML INJ IV PUSH (10:49)
[2022-03-08 10:53] VITALS: BP 157/93; PULSE 100; RESP 18; O2SAT 99
== END 2022-03-08 11:58 | disposition home or self-care (01) ==
PROVIDERS: Physician Assistant; Emergency Provider Emergency Medicine
DX: K70.30 Alcoholic cirrhosis of liver without ascites (principal); K76.6 Portal hypertension; I10 Essential (primary) hypertension; I31.3 Pericardial effusion (noninflammatory); D64.9 Anemia, unspecified; K21.9 Gastro-esophageal reflux disease without esophagitis; M19.90 Unspecified osteoarthritis, unspecified site; Z85.46 Personal history of malignant neoplasm of prostate; Z85.47 Personal history of malignant neoplasm of testis; Z86.73 Personal history of transient ischemic attack (TIA), and cerebral infarction without residual deficits; Z87.442 Personal history of urinary calculi; Z87.891 Personal history of nicotine dependence
CPT/HCPCS: 36415; 71046; 80053; 81001; 83690; 83735; 83880; 84100; 85025; 85055; 96374; 96375; 99284; C9113; J1940; J2270; J2405

== ENCOUNTER 2022-03-09 09:43 | Observation (INO) | payer OTHER, SELFPAY ==
[2022-03-09] VITALS (27 sets, daily range): BP systolic 123–174; BP diastolic 79–109; PULSE 85–107; RESP 16; TEMP 36.8; O2SAT 92–100
--- NOTE | 2022-03-09 10:18 | ED.GIBLEED ---
HPI - GI Bleed General Chief complaint: GI Bleed <Liliam Rivera PA-C - Last Filed: 03/09/22 21:44> Stated complaint: BLOOD IN STOOL <NEO Valles Last Filed: 03/09/22 21:44> Time Seen by Provider: 03/09/22 10:13 <NEO Valles Last Filed: 03/09/22 21:44> History of Present Illness HPI Narrative: Patient is a 52-year-old male with a history of cirrhosis with ascites, pancytopenia, portal hypertension, chronic pericardial effusion, here for evaluation of diffuse abdominal pain, nausea and several bloody stools today. Patient states that he has been experiencing intermittent abdominal pain for the past week, has been seen at this facility twice and was discharged initially after a normal CT scan, and was discharged yesterday after his labs were unrevealing and he was feeling better after medication. He returns today because he has had 4 bloody stools and the abdominal pain is worsened. Notes pain is in LLQ. His stools have been red in appearance. He has been compliant with his carvedilol, Lasix and spironolactone. Denies chest pain, shortness of breath, fevers, chills, vomiting, lightheadedness or weakness. <NEO Valles Last Filed: 03/09/22 21:44> Related Data Home medications: Home Medications Medication Instructions Recorded Confirmed acetaminophen 325 mg capsule 650 mg PO PRN PRN Pain 12/09/21 03/11/22 (Tylenol) spironolactone 50 mg tablet 25 mg PO QID 12/09/21 03/11/22 (Aldactone) <NEO Valles Last Filed: 03/09/22 21:44> Allergies/Adverse reactions: Allergies Allergy/AdvReac Type Severity Reaction Status Date / Time No Known Allergies Allergy Verified 03/08/22 09:11 <NEO Valles Last Filed: 03/09/22 21:44> Review of Systems Review of Systems: Gen: Denies fevers or chills Eyes: Denies eye pain or visual change ENT: Denies congestion Respiratory: Denies shortness of breath or cough CV: Denies chest pain or palpitations GI: reports abdominal pain, nausea, bloody stools. : denies burning, urgency, frequency or hematuria Musculoskeletal: Denies back pain or muscle pain Neuro: Denies numbness, tingling, weakness or focal weakness Skin: Denies rash Except as documented, all other systems reviewed and negative <Liliam Rivera PA-C - Last Filed: 03/09/22 21:44> [facility] Past Medical History Medical History: Medical History (Updated 03/11/22 @ 16:23 by Romi Leiva PA-C) Arthritis Cerebrovascular accident (2004) Chronic anemia Cirrhosis of liver with ascites Diastolic congestive heart failure Esophageal varices Gastric ulcer Gastroesophageal reflux disease Hypertension Kidney stone Leukemia In childhood. Pericardial effusion Noted on CT and echocardiogram in August 2020. No evidence of tamponade. Portal hypertensive gastropathy Noted on endoscopy on 03/23/[address] Duran. Prostate cancer Status post radiation seed implantation. Smoker Spontaneous bacterial peritonitis (04/2020) Tobacco use Type 2 diabetes mellitus <Liliam Rivera PA-C - Last Filed: 03/09/22 21:44> Surgical History Surgical History: Surgical History History of appendectomy History of cholecystectomy History of inguinal hernia repair History of lithotripsy History of repair of right rotator cuff <Liliam Rivera PA-C - Last Filed: 03/09/22 21:44> Family History Family History: Family History Mother Family history of malignant neoplasm of breast in first degree relative Breast cancer Father Acute myocardial infarction Hypertension Heart disease Other Diabetes mellitus Maternal Unkle Other Family history of malignant neoplasm <Liliam Rivera PA-C - Last Filed: 03/09/22 21:44> Social History Social History
[2022-03-09] MEDS: PANTOPRAZOLE SODIUM IV 40 MG VIAL 80 MG IV PUSH (10:34)
[2022-03-09] MEDS: ONDANSETRON INJ 4 MG/2 ML VIAL IV PUSH ×2 (10:34→15:09)
[2022-03-09 10:38] LABS: Basophils Percent Auto 0.7 % (0.2-1.2); Eosinophils Percent Auto 0.7 % (0-4.4); Hematocrit 35.4 % (42.0-52.0); Hemoglobin 10.5 g/dL (14.0-18.0); Immature Granulocyte Absolute 0.02 K/mm3 (0.00-0.031); Immature Granulocyte Percent A 0.3 % (0-0.5); Immature Platelet Fraction Pct 6.7 % (0.9-11.2); Lymphocytes Percent Auto 13.3 % (18.3-44.2); Mean Corpuscular HGB Conc 29.7 g/dl (32-36); Mean Corpuscular Hemoglobin 26.2 pg (26-34); Mean Corpuscular Volume 88.3 fl (80-100); Mean Platelet Volume 10.7 fl (7.4-10.4); Monocytes Absolute Auto 0.6 K/mm3 (0.1-0.6); Monocytes Percent Auto 10.7 % (2.6-8.5); Neutrophils Absolute Auto 4.5 K/mm3 (1.3-6.7); Neutrophils Percent Auto 74.3 % (45.5-73.1); Platelet Count Result 146 k/mm3 (150-375); Red Blood Count 4.01 M/mm3 (4.6-6.20); Red Cell Distribution Width 18.1 % (11.5-14.5)
[2022-03-09] MEDS: MORPHINE SULFATE (*CRX) 4 MG/ML INJ IV PUSH ×2 (10:44→19:54)
[2022-03-09 10:46] LABS: INR 1.1
[2022-03-09 10:47] LABS: Partial Thromboplastin Time 27.5 SECONDS (22.3-36.8)
[2022-03-09 10:55] LABS: Lipase 76 U/L (23-300)
[2022-03-09 10:57] LABS: Alanine Aminotransferase 16 U/L (6-50); Alkaline Phosphatase 141 U/L (38-126); Anion Gap 9 mmol/L (8-16); Aspartate Amino Transferase 38 U/L (17-59); Bilirubin,Total 0.9 mg/dL (0.2-1.3); Blood Urea Nitrogen 36 mg/dL (9-20); Calcium 8.7 mg/dL (8.4-10.2); Carbon Dioxide 26 mmol/L (22-30); Chloride 100 mmol/L (98-107); Estimated CRCL calculation 83 ml/min; Estimated Glomerular Filt Rate > 60; Glucose 226 mg/dL (65-110); Potassium 4.8 mmol/L (3.4-5.0); Sodium 135 mmol/L (137-145)
[2022-03-09] MEDS: MORPHINE SULFATE (*CRX) 2 MG/ML INJ IV PUSH (13:20)
[2022-03-09] MEDS: OCTREOTIDE ACETATE 50 MCG/ML VIAL IV PUSH (13:51)
[2022-03-09 16:52] LABS: Hematocrit 32.6 % (42.0-52.0); Hemoglobin 9.8 g/dL (14.0-18.0)
[2022-03-09 21:29] LABS: Hematocrit 31.2 % (42.0-52.0); Hemoglobin 9.2 g/dL (14.0-18.0)
[2022-03-10] VITALS (41 sets, daily range): BP systolic 127–155; BP diastolic 81–93; PULSE 83–92; RESP 16–18; TEMP 36.6–36.8; O2SAT 91–100
[2022-03-10 01:19] LABS: Hematocrit 29.3 % (42.0-52.0); Hemoglobin 8.7 g/dL (14.0-18.0)
[2022-03-10] MEDS: MORPHINE SULFATE (*CRX) 4 MG/ML INJ IV PUSH ×4 (02:35→20:48)
--- NOTE | 2022-03-10 02:51 | PC.NURSE ---
[facility] called for update on PT and stated they were still at capacity.
--- NOTE | 2022-03-10 03:02 | PC.NURSE ---
Report received from COREY Bowman. Assumed care of patient at this time.
--- NOTE | 2022-03-10 05:00 | PC.NURSE ---
Called pharmacy to have octreotide sent up since his drip finished. Regino stated he will send it up. Patient ambulated to the bathroom with an unassisted steady gait.
[2022-03-10 05:26] LABS: Hematocrit 30.6 % (42.0-52.0); Hemoglobin 9.2 g/dL (14.0-18.0)
[2022-03-10] MEDS: PANTOPRAZOLE SODIUM IV 40 MG VIAL IV PUSH ×2 (08:43→17:19)
[2022-03-10 08:58] LABS: Hematocrit 28.4 % (42.0-52.0); Hemoglobin 8.7 g/dL (14.0-18.0)
--- NOTE | 2022-03-10 09:34 | PC.NURSE ---
bed status at [facility]- No bed pt remains on wait list No estimated time for bed [facility]
[2022-03-10 13:40] LABS: Hematocrit 28.5 % (42.0-52.0); Hemoglobin 8.5 g/dL (14.0-18.0)
[2022-03-10 18:22] LABS: Hematocrit 30.7 % (42.0-52.0); Hemoglobin 9.2 g/dL (14.0-18.0)
[2022-03-10 21:25] LABS: Hematocrit 30.8 % (42.0-52.0); Hemoglobin 9.2 g/dL (14.0-18.0)
--- NOTE | 2022-03-11 01:01 | PC.NURSE ---
Spoke with Eun at [facility], patient is still on waitlist for a bed. No beds available at this time.
[2022-03-11] MEDS: MORPHINE SULFATE (*CRX) 4 MG/ML INJ IV PUSH ×3 (02:51→16:00)
[2022-03-11 03:17] VITALS: BP 120/87; PULSE 81; RESP 18; O2SAT 97
[2022-03-11 06:40] LABS: Hematocrit 28.4 % (42.0-52.0); Hemoglobin 8.5 g/dL (14.0-18.0)
[2022-03-11 08:40] VITALS: BP 144/93; PULSE 86; RESP 16; TEMP 36.8; O2SAT 98
[2022-03-11] MEDS: PANTOPRAZOLE SODIUM IV 40 MG VIAL IV PUSH ×2 (09:01→18:13)
[2022-03-11 12:13] LABS: Hematocrit 28.4 % (42.0-52.0); Hemoglobin 8.8 g/dL (14.0-18.0)
--- NOTE | 2022-03-11 15:15 | PM.IMHP ---
H&P: HPI History of Present Illness Date/Time: 03/11/22 15:15 <Romi Leiva PA-C - Last Filed: 03/11/22 20:23> Chief Complaint: Abdominal pain and rectal bleeding. <Romi Leiva PA-C - Last Filed: 03/11/22 20:23> Narrative: This is a 52-year-old male with history of cirrhosis, esophageal varices, gastric ulcers, pericardial effusion, pulmonary hypertension, and diastolic congestive heart failure who presented to the emergency department in the morning of 03/08/2022 for evaluation of abdominal pain and rectal bleeding. He was seen in the ED 2 days prior with complaints of abdominal pain, coffee-ground emesis, and melena at which time his labs were stable and his digital rectal exam was unremarkable. No acute findings were noted on CT of the abdomen and pelvis and was felt that he could be discharged home safely with close follow-up. His pain did improve somewhat with IV Pepcid and Dilaudid. Unfortunately he once again started having diffuse abdominal pain and he reports passing a large amount of bright red blood per rectum admixed with large maroon-colored clots which he was able to show me the pictures taken from his phone. His hemoglobin and hematocrit were stable on arrival and have remained stable. The case was discussed with the on-call GI physician who felt that it would be in the patient's best interest to be transferred to [facility] where he is in the process of establishing care with a skein inspector due to his complex case and recurrent issues with GI bleeding. He was accepted at that facility however he has been in the emergency department for well over 55 hours and he is being admitted to a medical bed under the hospitalist service while awaiting transfer. Dr. Guerin has graciously agreed to see him in consultation as well. His rectal bleeding seems to have slowed down quite a bit and he has had only 1 bowel movement today, passing a small amount of maroon clots. The diffuse abdominal pain seems to be improving as well however he has intermittent episodes where he gets sharp shooting pain throughout the mid to lower abdomen without radiation. He has not had any nausea or vomiting since he came to the ER and he has been tolerating a clear liquid diet. <Romi Leiva PA-C - Last Filed: 03/11/22 20:23> Review of Systems Review of Systems: 12 systems were reviewed. No fever, chills, or sweats. No recent cold or flu symptoms. No chest pain or shortness of breath. Except as documented, all other systems were reviewed and are negative. <Romi Leiva PA-C - Last Filed: 03/11/22 20:23> [facility] Past Medical History Medical History: Medical History (Updated 03/12/22 @ 21:45 by Anita Chappell, BOILER HOUSE INSPECTOR) Arthritis Cerebrovascular accident (2004) Chronic anemia Cirrhosis of liver with ascites Diastolic congestive heart failure Esophageal varices Gastric ulcer Gastroesophageal reflux disease Hypertension Kidney stone Leukemia In childhood. Pericardial effusion Noted on CT and echocardiogram in August 2020. No evidence of tamponade. Portal hypertensive gastropathy Noted on endoscopy on 03/23/[address] Duran. Prostate cancer Status post radiation seed implantation. Smoker Spontaneous bacterial peritonitis (04/2020) Tobacco use Type 2 diabetes mellitus <Romi Leiva PA-C - Last Filed: 03/11/22 20:23> Surgical History Surgical History: Surgical History History of appendectomy History of cholecystectomy History of inguinal hernia repair History of lithotripsy History of repair of right rotator cuff <Romi Leiva PA-C - Last Filed: 03/11/22 20:23> Family History Family History: Family History Mother Family history of malignant neoplasm of breast in first degree relative Breast cancer Father Acute myocardial infarct
--- NOTE | 2022-03-11 16:12 | WPDGICN ---
Assessment and Plan Assessment and plan (1) Acute upper gastrointestinal bleeding: Code(s): K92.2 - Gastrointestinal hemorrhage, unspecified Status: Acute Assessment and Plan: 4 days ago he stated that he had coffee-ground emesis. He tells me today that he does not remember stating that and that his only bleeding was 2 days ago when he came in for the 3rd time when he had had dark red blood in the toilet. He had had a normal colonoscopy about [address] Claros[address] I will schedule him for and colonoscopy to be done tomorrow and probably EGD as well. (2) Cirrhosis: Qualifiers: Ascites presence: with ascites Hepatic cirrhosis type: alcoholic cirrhosis Qualified Code(s): K70.31 - Alcoholic cirrhosis of liver with ascites Code(s): K74.60 - Unspecified cirrhosis of liver Status: Acute Assessment and Plan: He states that he has not been a drinker although he did drink some when he was younger. 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 Unfortunately we have not been able to get him to get connected with pointer machine operator in [place] except for 1 visit that he had earlier this year. (3) Ascites: Code(s): R18.8 - Other ascites Status: Acute Assessment and Plan: He has had some ascites for the last 2 years. What is unusual and difficult understand is that he always seems have extreme pain ?10/10? when he presents to the emergency room with moderate ascites. Generally when he has a paracentesis there is less than 1500 mL removed. Several occasions he was tested for SBP and these have all been negative with negative cultures. (4) Pancytopenia: Code(s): D61.818 - Other pancytopenia Status: Acute Assessment and Plan: Few months ago his white blood count was 2500 and platelet count was in the 60,000 range. They both improved. (5) Esophageal varices: Code(s): I85.00 - Esophageal varices without bleeding Status: Acute Assessment and Plan: Multiple EGDs have shown small esophageal varices but usually there is no blood in the stomach when we examined him. (6) Abdominal pain: Code(s): R10.9 - Unspecified abdominal pain Status: Acute Assessment and Plan: He has severe abdominal pain whenever I have seen him although he insists that in between, when he has a home he does not have pain. He has however many times requested ?something stronger than tramadol to take for his pain GI Consult Note Consult date/time: 03/11/22 16:12 HPI: Matt Worley II is a 52 year old male who is being admitted with abdominal pain and gastrointestinal hemorrhage. The patient has cirrhosis which we believe is due to autoimmune liver disease, as he has been found have a very high MEL, greater than 1:1220 MEL type 2 and greater than 1-300 MEL 1. He has had multiple hospitalizations here most of which were when he presented with complaints of severe abdominal pain due to ascites. He has had multiple paracentesis. At most times a only L last is obtained. He tells me now that he no longer has abdominal pain except for the past week when he began bleeding he states that every time he sees blood in his stools or vomits blood that he has severe abdominal pain. This is a new story as in the past he was constantly having pain for which she would seek narcotic medications. He had been referred over 2 years ago to a liver Clinic and for some reason other, either due to his appointment is being canceled, or due to him cancelling appointments he was not seen by anybody until we finally insisted he see somebody to help us with this case. He saw 1 doctor at [facility], Dr. Jasso, earlier this year. He was going to have a follow up but then he was told that that had left the [facility]. He was due to see someone in January but that appointment was ?canceled?-- he states that even his river tester
[2022-03-11 18:13] LABS: Hemoglobin 8.9 g/dL (14.0-18.0)
[2022-03-11] MEDS: polyethylene glycoL 3350 238 GM BOTTLE PO (18:13)
[2022-03-11] MEDS: ACETAMINOPHEN 325 MG TABLET 650 MG PO (21:23)
[2022-03-11] MEDS: ONDANSETRON INJ 4 MG/2 ML VIAL IV PUSH (21:43)
[2022-03-11 22:00] VITALS: BP 130/74; PULSE 75; RESP 18; TEMP 36.1; O2SAT 96
[2022-03-11 23:42] LABS: Glucose Point of Care 105 mg/dl (65-105)
[2022-03-12] VITALS (9 sets, daily range): BP systolic 135–152; BP diastolic 78–93; PULSE 69–98; RESP 15–20; TEMP 35.9–36.4; O2SAT 97–100
--- NOTE | 2022-03-12 00:47 | PC.NURSE ---
Called Dr. Buenrostro because patient is complaining of 9/10 abdominal pain. She is ordering Dilaudid 1mg IVP x 1 dose. TORKiarra
[2022-03-12] MEDS: HYDROmorphone HCL INJ (*CRX) 1 MG/ML SYR IV PUSH (00:59)
[2022-03-12 06:04] LABS: Prothrombin Time 13.1 Seconds (11.1-14.7)
[2022-03-12 06:05] LABS: Partial Thromboplastin Time 25.7 SECONDS (22.3-36.8)
[2022-03-12 06:28] LABS: Alanine Aminotransferase 15 U/L (6-50); Albumin Level 3.5 g/dL (3.5-5.1); Alkaline Phosphatase 123 U/L (38-126); Anion Gap 9 mmol/L (8-16); Aspartate Amino Transferase 43 U/L (17-59); Bilirubin,Total 0.5 mg/dL (0.2-1.3); Blood Urea Nitrogen 12 mg/dL (9-20); Calcium 8.5 mg/dL (8.4-10.2); Carbon Dioxide 27 mmol/L (22-30); Chloride 98 mmol/L (98-107); Estimated CRCL calculation 74 ml/min; Estimated Glomerular Filt Rate > 60; Glucose 122 mg/dL (65-110); Sodium 134 mmol/L (137-145)
[2022-03-12 08:08] LABS: Glucose Point of Care 156 mg/dl (65-105)
[2022-03-12] MEDS: PANTOPRAZOLE SODIUM IV 40 MG VIAL IV PUSH (08:29)
[2022-03-12 08:33] LABS: Hematocrit 31.2 % (42.0-52.0); Hemoglobin 9.3 g/dL (14.0-18.0); Immature Platelet Fraction Pct 9.1 % (0.9-11.2); Mean Corpuscular HGB Conc 29.8 g/dl (32-36); Mean Corpuscular Volume 90.4 fl (80-100); Platelet Count Result 91 k/mm3 (150-375); Red Blood Count 3.45 M/mm3 (4.6-6.20); White Blood Count 2.2 K/mm3 (4.5-10.0)
--- NOTE | 2022-03-12 10:35 | SUR.OPER ---
EGD START 1011, END 1019 COLONOSCOPY START 1027, END 1035
[2022-03-12] MEDS: LACTATED RINGERS 1,000 ML 150 ML IV CONT (10:37)
--- NOTE | 2022-03-12 10:48 | SUR.PHASEII ---
COREY Vick called report to floor nurseIla.
[2022-03-12] MEDS: ACETAMINOPHEN/CODEINE ELIXIR (*CRX) 120-12 MG/5 ML UDC 10 ML PO (11:37)
[2022-03-12 11:57] LABS: Glucose Point of Care 143 mg/dl (65-105)
--- NOTE | 2022-03-12 14:53 | PM.DS ---
DS: Admitting Diagnosis Discharge Date 03/12/2022 1453 Admitting Diagnosis GI bleed acute on chronic anemia Liver cirrhosis H/O esophageal varices GERD DS: Discharge Diagnosis Discharge Diagnosis (1) GI bleed: Qualifiers: GI bleed type/associated pathology: unspecified gastrointestinal hemorrhage type Qualified Code(s): K92.2 - Gastrointestinal hemorrhage, unspecified Code(s): K92.2 - Gastrointestinal hemorrhage, unspecified Status: Acute Assessment and Plan: 2/2 esophageal varices s/p banding grade 3 esophageal varices 03/12/22 Treated with Octreotide IV and Rocephin 1 gram Q24 hours H/H 8.7 to 9.3 (2) Chronic anemia: Code(s): D64.9 - Anemia, unspecified Status: Acute Assessment and Plan: 2/2 cirrhosis, esophageal varices and internal hemrrhoids (3) Type 2 diabetes mellitus: Qualifiers: Diabetes mellitus complication status: without complication Diabetes mellitus retirement insulin use: without watermelon harvesting supervisor use Qualified Code(s): E11.9 - Type 2 diabetes mellitus without complications Code(s): E11.9 - Type 2 diabetes mellitus without complications Status: Acute Assessment and Plan: A1c 6.9% Continue jardiance (4) Cirrhosis of liver with ascites: Qualifiers: Hepatic cirrhosis type: unspecified hepatic cirrhosis Qualified Code(s): K74.60 - Unspecified cirrhosis of liver; R18.8 - Other ascites Code(s): K74.60 - Unspecified cirrhosis of liver; R18.8 - Other ascites Status: Chronic Assessment and Plan: Continue beta-laura, furosemide and spironolactone +esophageal varices s/p EGD on EGD (5) Gastroesophageal reflux disease: Qualifiers: Esophagitis presence: without esophagitis Qualified Code(s): K21.9 - Gastro-esophageal reflux disease without esophagitis Code(s): K21.9 - Gastro-esophageal reflux disease without esophagitis Status: Acute Assessment and Plan: treated with PPI BID IV (6) Diastolic congestive heart failure: Qualifiers: Heart failure chronicity: chronic Qualified Code(s): I50.32 - Chronic diastolic (congestive) heart failure Code(s): I50.30 - Unspecified diastolic (congestive) heart failure Status: Acute Assessment and Plan: Not in acute exacerbation Continue coreg, furosemide and spironolactone DS: Summary Hospital Course Reason for hospitalization: abd pain & rectal bleeding Hospital Course: Matt Worley II is a 52-year-old male with liver cirrhosis, esophageal varices, gastric ulcers, pericardial effusion, pulmonary hypertension, and diastolic congestive heart failure who presented to the emergency department in the morning of 03/08/2022 for evaluation of abdominal pain and rectal bleeding. He was seen in the ED 2 days prior with similar complaints of abdominal pain, coffee-ground emesis, and melena at which time his labs were stable and his digital rectal exam was unremarkable. No acute findings were noted on CT of the abdomen and pelvis and it was felt that he could be discharged home safely with close follow-up. His pain did improve somewhat with IV Pepcid and Dilaudid. Unfortunately, on 03/09/22, he started having diffuse abdominal pain and reports passing a large amount of bright red blood per rectum admixed with large maroon-colored clots which he took pictures of on his phone. His H/H was 10.5/34 on arrival, but noted to be 13/43% on 03/08/22. The case was discussed with the on-call GI physician who felt that it would be in the patient's best interest to be transferred to [facility] where he is in the process of establishing care with a tube repairer due to his complex case and recurrent issues with GI bleeding. He was accepted at that facility, however, due to overcapacity, he was boarded in the emergency department for well over 55 hours. He therefore was admitted to our pa
[2022-03-12] MEDS: BELLADONNA ALK/PHENOB ELIX 10 ML, MAG HYDROX/ALUMINUM HYD/SIMETH 30 ML, LIDOCAINE HCL 2... PO (15:26)
== END 2022-03-12 15:57 | disposition home or self-care (01) ==
LOC: ANHED 03-11 09:12 → ANH3MEDSUR 03-11 16:15
PROVIDERS: Emergency Medicine; Internal Medicine Gastroenterology; Physician Assistant; Admitting Provider Family Medicine; Emergency Provider Emergency Medicine; Visit Provider Nurse Practitioner Family
PROC: 0DJ08ZZ Inspection of Upper Intestinal Tract, Via Natural or Artificial Opening Endoscopic (ICD-10-PCS; CPT 43235; principal; 2022-03-12 14:30)
DX: K92.2 Gastrointestinal hemorrhage, unspecified (principal); I85.00 Esophageal varices without bleeding; D64.9 Anemia, unspecified; E11.9 Type 2 diabetes mellitus without complications; K74.60 Unspecified cirrhosis of liver; K21.9 Gastro-esophageal reflux disease without esophagitis; I11.0 Hypertensive heart disease with heart failure; I50.30 Unspecified diastolic (congestive) heart failure; K64.8 Other hemorrhoids; R18.8 Other ascites; D61.818 Other pancytopenia; K76.6 Portal hypertension; I31.3 Pericardial effusion (noninflammatory); K65.2 Spontaneous bacterial peritonitis; Z90.49 Acquired absence of other specified parts of digestive tract; Z86.73 Personal history of transient ischemic attack (TIA), and cerebral infarction without residual deficits; Z87.442 Personal history of urinary calculi; Z85.6 Personal history of leukemia; Z85.46 Personal history of malignant neoplasm of prostate; Z92.3 Personal history of irradiation; Z87.11 Personal history of peptic ulcer disease; Z87.891 Personal history of nicotine dependence; Z79.1 Long term (current) use of non-steroidal anti-inflammatories (NSAID); Z79.899 Other long term (current) drug therapy
CPT/HCPCS: 43244; 45378; 36415; 80053; 82948; 83690; 85014; 85018; 85025; 85027; 85055; 85610; 85730; 86850; 86880; 86900; 86901; 86902; 86922; 96365; 96366; 96375; 96376; 99285; A9270; C9113; G0378; G0379; J0696; J1170; J2270; J2354; J2405; J2704; J7120

== ENCOUNTER 2022-03-29 11:23 | Emergency (ER) | payer OTHER, SELFPAY ==
--- NOTE | ~2022-03-29 | US_ITS ---
EXAMINATION: US paracentesis abd w/image DATE: 03/29/2022 13:39 INDICATION: Ascites. TECHNIQUE: The procedure and its risks, benefits, and alternatives were discussed with the patient. P otential risks discussed included bleeding and infection. The skin was prepped and draped in sterile fashion. 1% lidocaine was used for local anesthesia. Under ultrasound guidance, a 5 Fr catheter with trochar was advanced into the ascites in the right lower quadrant. Fluid was aspirated. The catheter was removed, and a dressing was applied. There were no immediate complications. FINDINGS: Ultrasound images demonstrate ascites and the catheter within the fluid. IMPRESSION: 1. Successful ultrasound-guided paracentesis yielding 2200 mL of yellow fluid. Reviewed, dictated and finalized at location A.
--- NOTE | ~2022-03-29 | CT_ITS ---
EXAMINATION: CT abdomen pelvis w con DATE: 03/29/2022 13:20 INDICATION: Ascites. Abdominal pain. TECHNIQUE: Computed tomography (CT) of the abdomen and pelvis was performed with 100 mL Omnipaque 350 intravenous contrast. Automated exposure control and iterative reconstruction technique were employe d. The dose-length product was 1183.59 mGy-cm. COMPARISON: CT abdomen and pelvis 03/06/2022 FINDINGS: The visualized portions of the lung bases demonstrate smooth septal thickening, consistent with mild pulmonary edema. There is a small left pleural effusion. Cardiomegaly is noted. There are c oronary artery calcifications. There is a moderate-sized pericardial effusion. Paraesophageal varices are noted. There is liver surface nodularity, consistent with cirrhosis. There are changes of cholec ystectomy. There is severe splenomegaly measuring 17.5 cm. The pancreas, adrenal glands, and right ki dney are normal. There is a 3 mm stone in left kidney. There are changes of appendectomy. There are n o dilated loops of bowel. There are no pathologically enlarged lymph nodes. There is a large volume o f ascites. There is ascites in an umbilical hernia. There are chronic compression fractures of T10, T 11, and T12 vertebral bodies. There is mild lumbar spondylosis. IMPRESSION: 1. Mild pulmonary edema. 2. Small left pleural effusion. 3. Stable moderate-sized pericardial effusion. 4. Cirrhosis of the liver with portal venous hypertension. 5. Large volume of ascites. Reviewed, dictated and finalized at location A.
[2022-03-29 11:29] VITALS: BP 178/95; PULSE 100; RESP 27; TEMP 36.5; O2SAT 100
--- NOTE | 2022-03-29 11:45 | ED.ABDPAIN ---
HPI - Abdominal Pain General Chief Complaint: Abdominal Pain Stated Complaint: abd pain with distention Time Seen by Provider: 03/29/22 11:28 History of Present Illness HPI narrative: 52-year-old male with history of cirrhosis, esophageal varices, ascites, anemia presenting to the emergency department for evaluation of increased abdominal fullness and lower abdominal pain. Patient states that he gets a paracentesis approximately once a month. Patient's last paracentesis was about a month ago. Patient states that he does follow-up with a liver specialist at [facility] but his physician moved, he has not had a physician for a year and he will not see another physician for a month. Patient states over the last few days he has had increased abdominal pressure. Patient denies any associated nausea or vomiting. Patient does complain of pain at his umbilical hernia as well. Related Data Home Medications Medication Instructions Recorded Confirmed acetaminophen 325 mg capsule 650 mg PO PRN PRN Pain 12/09/21 03/11/22 (Tylenol) spironolactone 50 mg tablet 25 mg PO QID 12/09/21 03/11/22 (Aldactone) Allergies Allergy/AdvReac Type Severity Reaction Status Date / Time No Known Allergies Allergy Verified 03/29/22 11:36 Review of Systems Review of Systems: CONSTITUTIONAL: Denies fever, chills, or sweats. EYES: Denies visual changes, redness, or discharge. ENT: Denies rhinorrhea, congestion, sore throat, or otalgia. CARDIOVASCULAR: Denies chest pain, palpitations, or edema. RESPIRATORY: Denies cough or dyspnea. GASTROINTESTINAL: See HPI GENITOURINARY: Denies dysuria or hematuria. SKIN: Denies rash or itching. MUSCULOSKELETAL: Denies back pain, joint pain, or myalgia. NEUROLOGIC: Denies headache, numbness, or weakness. [facility] Past Medical History Medical History (Updated 03/29/22 @ 17:13 by Mike Graham MD) Arthritis Cerebrovascular accident (2004) Chronic anemia Cirrhosis of liver with ascites Diastolic congestive heart failure Esophageal varices Gastric ulcer Gastroesophageal reflux disease Hypertension Kidney stone Leukemia In childhood. Pericardial effusion Noted on CT and echocardiogram in August 2020. No evidence of tamponade. Portal hypertensive gastropathy Noted on endoscopy on 03/23/[address] Duran. Prostate cancer Status post radiation seed implantation. Smoker Spontaneous bacterial peritonitis (04/2020) Tobacco use Type 2 diabetes mellitus Surgical History Surgical History History of appendectomy History of cholecystectomy History of inguinal hernia repair History of lithotripsy History of repair of right rotator cuff Family History Family History Mother Family history of malignant neoplasm of breast in first degree relative Breast cancer Father Acute myocardial infarction Hypertension Heart disease Other Diabetes mellitus Maternal Unkle Other Family history of malignant neoplasm Social History Social History Social History: Surrogate decision maker: Myra Worley () or 1st Marnie Washington (aunt). Code status: Full code Smoking packs per day: 0.5 Smoking cigarettes per day: 10.0 Years smoked: 50 Smoking pack-years: 25.00 Smoking status: Former smoker Tobacco type: cigarettes Second hand tobacco smoke exposure: No Smoking end date: 12/09/20 Alcohol intake: never Alcohol use details: Former beer drinker. Substance use: never Substance use type: does not use Additional living arrangements comments: Resides in [place] with his and son. 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 Spiritual care concerns: No Agree to blood products: Yes Exam Narrative: APPEARANCE: Well appearing, no pain, no distress
[2022-03-29] MEDS: HYDROmorphone HCL INJ (*CRX) 1 MG/ML SYR IV PUSH (12:04)
[2022-03-29 12:10] LABS: Basophils Percent Auto 0.3 % (0.2-1.2); Eosinophils Percent Auto 0.5 % (0-4.4); Hematocrit 31.1 % (42.0-52.0); Hemoglobin 9.2 g/dL (14.0-18.0); Immature Granulocyte Absolute 0.01 K/mm3 (0.00-0.031); Immature Granulocyte Percent A 0.3 % (0-0.5); Immature Platelet Fraction Pct 10.2 % (0.9-11.2); Lymphocytes Absolute Auto 0.47 K/mm3 (0.9-3.2); Lymphocytes Percent Auto 12.4 % (18.3-44.2); Mean Corpuscular HGB Conc 29.6 g/dl (32-36); Mean Corpuscular Hemoglobin 25.1 pg (26-34); Mean Corpuscular Volume 84.7 fl (80-100); Mean Platelet Volume 11.6 fl (7.4-10.4); Monocytes Absolute Auto 0.4 K/mm3 (0.1-0.6); Monocytes Percent Auto 10.8 % (2.6-8.5); Neutrophils Absolute Auto 2.9 K/mm3 (1.3-6.7); Neutrophils Percent Auto 75.7 % (45.5-73.1); Platelet Count Result 63 k/mm3 (150-375); Red Blood Count 3.67 M/mm3 (4.6-6.20); Red Cell Distribution Width 16.6 % (11.5-14.5); White Blood Count 3.8 K/mm3 (4.5-10.0)
[2022-03-29 12:20] LABS: INR 1.1; Prothrombin Time 13.8 Seconds (11.1-14.7)
[2022-03-29 12:21] LABS: Partial Thromboplastin Time 30.2 SECONDS (22.3-36.8)
[2022-03-29] MEDS: ONDANSETRON INJ 4 MG/2 ML VIAL IV PUSH (12:23)
[2022-03-29 12:37] LABS: Alanine Aminotransferase 13 U/L (6-50); Albumin Level 3.7 g/dL (3.5-5.1); Alkaline Phosphatase 192 U/L (38-126); Anion Gap 6 mmol/L (8-16); Aspartate Amino Transferase 37 U/L (17-59); Bilirubin,Total 1.1 mg/dL (0.2-1.3); Blood Urea Nitrogen 10 mg/dL (9-20); Calcium 8.5 mg/dL (8.4-10.2); Carbon Dioxide 28 mmol/L (22-30); Chloride 103 mmol/L (98-107); Estimated CRCL calculation 97 ml/min; Estimated Glomerular Filt Rate > 60; Glucose 145 mg/dL (65-110); Lipase 51 U/L (23-300); Potassium 3.6 mmol/L (3.4-5.0); Sodium 137 mmol/L (137-145)
[2022-03-29 12:41] LABS: Lactic Acid Reflex 1.1 mmol/L (0.7-2.0)
[2022-03-29 12:58] LABS: Anisocytosis 1+ (NORMAL); Hypochromasia 2+ (NORMAL); Platelet Estimate Decreased (Adequate); Poikilocytosis 1+ (NORMAL); Schistocytes None Seen (NORMAL); Stomatocytes 1+ (NORMAL)
--- NOTE | 2022-03-29 13:18 | PC.NURSE ---
pt in ultrasound a this time.
[2022-03-29 14:14] VITALS: BP 152/86; PULSE 92; RESP 20; O2SAT 99
[2022-03-29 14:43] LABS: Add Urine Microscopic? YES; Appearance Urine Clear (Clear); Bilirubin Urine Negative (Negative); Blood Urine Negative (Negative); Color Urine Amber (Yellow); Glucose Urine UA Negative (Negative); Ketones Urine 1+ mg/dL (Negative); Leukocyte Esterase Ur Negative LEU/UL (Negative); Mucus Urine Rare /lpf; Nitrate Urine Negative (Negative); Protein Urine 1+ mg/dL (Negative); Urobilinogen Urine Negative mg/dL (<2.0); WBC Urine 0-3 /hpf
== END 2022-03-29 14:41 | disposition home or self-care (01) ==
PROVIDERS: Emergency Provider Emergency Medicine
DX: R18.8 Other ascites (principal); K74.60 Unspecified cirrhosis of liver; R10.9 Unspecified abdominal pain; K21.9 Gastro-esophageal reflux disease without esophagitis; I11.0 Hypertensive heart disease with heart failure; I50.30 Unspecified diastolic (congestive) heart failure; K76.6 Portal hypertension; K31.89 Other diseases of stomach and duodenum; E11.9 Type 2 diabetes mellitus without complications; D64.9 Anemia, unspecified; Z86.73 Personal history of transient ischemic attack (TIA), and cerebral infarction without residual deficits; Z85.6 Personal history of leukemia; Z85.46 Personal history of malignant neoplasm of prostate; Z87.891 Personal history of nicotine dependence; Z79.84 Long term (current) use of oral hypoglycemic drugs
CPT/HCPCS: 36415; 49083; 74177; 80053; 81001; 83605; 83690; 85025; 85055; 85610; 85730; 96374; 96375; 99284; J1170; J2405; Q9967

== ENCOUNTER 2022-04-10 20:12 | Observation (INO) | payer OTHER, SELFPAY ==
[2022-04-10] VITALS (14 sets, daily range): BP systolic 148–164; BP diastolic 76–90; PULSE 99–115; RESP 16–33; TEMP 36.8; O2SAT 94–99
--- NOTE | ~2022-04-10 | CT_ITS ---
EXAMINATION: CT brain wo con DATE: 04/10/2022 21:46 INDICATION: Syncope today TECHNIQUE: Computed tomography (CT) of the head was performed without intravenous contrast. The mA wa s adjusted according to patient size. Iterative reconstruction technique was employed. Exam dose: 60 5.33 mGy-cm total exam DLP. COMPARISON: 11/08/2012 CT brain FINDINGS: No intracranial mass lesion or hemorrhage, midline shift or mass effect. No subdural or epi dural hematoma. There is prominent mucoperiosteal thickening primarily along the lateral wall of the left maxillary s inus. Included paranasal sinuses and the mastoid air cells are otherwise unremarkable. No fracture or bone destruction of the cranial vault. IMPRESSION: No significant intracranial abnormality Reviewed, dictated and finalized at Location A. Reviewed, dictated and finalized at location A.
--- NOTE | ~2022-04-10 | XR_ITS ---
XR chest 2V DATE: 04/10/2022 21:52 INDICATION: Shortness of breath TECHNIQUE: AP and lateral views COMPARISON: 03/08/2022 PA and lateral chest 12/09/2021 and 03/20/2021 chest radiographic examinations FINDINGS: Globular enlarged cardiac silhouette may be due to cardiomegaly/cardiomyopathy or pericardi al effusion. Cardiomegaly is more likely considering this is chronic, also present on 12/09/2021 in ad dition to 03/20/2021. There is pulmonary vascular redistribution which may indicate mild pulmonary venous hypertension. Minimal infiltrate or atelectasis in the right lower lung. The lungs otherwise appear clear. No pleur al effusion is noted. No pneumothorax. Diffuse osteopenia. IMPRESSION: Cardiomegaly, pulmonary vascular redistribution, suggesting mild pulmonary venous hyperte nsion Minimal infiltrate or atelectasis in the right lower lung Reviewed, dictated and finalized at location A. IMPRESSION: Cardiomegaly, pulmonary vascular redistribution, suggesting mild pu lmonary venous hypertension Minimal infiltrate or atelectasis in the right lower lung
--- NOTE | ~2022-04-10 | CT_ITS ---
EXAMINATION: CT abdomen pelvis w con DATE: 04/10/2022 21:49 INDICATION: Right upper quadrant abdominal pain, nausea and vomiting. Cirrhosis, ascites. TECHNIQUE: Computed tomography (CT) of the abdomen and pelvis was performed with 100 CC Omnipaque 350 intravenous contrast. Automated exposure control and iterative reconstruction technique were employe d. Exam dose: 1151.99 mGy-cm total exam DLP. COMPARISON: 03/29/2022 CT abdomen pelvis FINDINGS: Moderate pericardial effusion, stable since 03/29/2022. Lung bases are clear of infiltrate or consolidation. Minimal ascites, primarily perihepatic, perisplenic and right paracolic gutter and lower pelvis. Hepatic surface nodularity consistent with clinical diagnosis of cirrhosis. There is splenomegaly; sp sada measures up to 17.4 cm vertical dimension. No hepatic, splenic, pancreatic, and adrenal or renal space-occupying mass lesion. Approximately 3 mm lower pole left renal calculus. No other urinary tract calculus or hydroureteronep hrosis. Urinary bladder is unremarkable. There is prostate enlargement and calcification. Normal caliber of the abdominal aorta. No intraperitoneal or retroperitoneal or pelvic mass lesion or adenopathy or ascites. Status post appendectomy. No bowel obstruction or intraperitoneal free air. Probable chronic moderate anterior wedge burst fracture deformity of T11 and mild anterior wedge comp ression fracture deformity of T12. IMPRESSION: Moderate pericardial effusion Cirrhosis, splenomegaly, mild ascites 3 mm lower pole nonobstructing left renal calculus Prostate enlargement and calcification Status post appendectomy Chronic fracture deformities of T11 and T12, stable compared to 06/13/2021 Reviewed, dictated and finalized at [facility] Reviewed, dictated and finalized at [facility].
[2022-04-10 21:00] LABS: Basophils Percent Auto 0.6 % (0.2-1.2); Eosinophils Percent Auto 1.1 % (0-4.4); Hematocrit 34.5 % (42.0-52.0); Hemoglobin 9.9 g/dL (14.0-18.0); Immature Granulocyte Absolute 0.01 K/mm3 (0.00-0.031); Immature Granulocyte Percent A 0.3 % (0-0.5); Immature Platelet Fraction Pct 9.4 % (0.9-11.2); Lymphocytes Absolute Auto 0.67 K/mm3 (0.9-3.2); Lymphocytes Percent Auto 18.9 % (18.3-44.2); Mean Corpuscular HGB Conc 28.7 g/dl (32-36); Mean Corpuscular Volume 83.7 fl (80-100); Mean Platelet Volume 11.8 fl (7.4-10.4); Monocytes Absolute Auto 0.5 K/mm3 (0.1-0.6); Monocytes Percent Auto 13.3 % (2.6-8.5); Neutrophils Absolute Auto 2.3 K/mm3 (1.3-6.7); Neutrophils Percent Auto 65.8 % (45.5-73.1); Platelet Count Result 121 k/mm3 (150-375); Red Blood Count 4.12 M/mm3 (4.6-6.20); White Blood Count 3.5 K/mm3 (4.5-10.0)
[2022-04-10 21:06] LABS: INR 1.1; Prothrombin Time 13.6 Seconds (11.1-14.7)
[2022-04-10 21:07] LABS: Partial Thromboplastin Time 30.3 SECONDS (22.3-36.8)
[2022-04-10 21:08] LABS: Alanine Aminotransferase 16 U/L (6-50); Alkaline Phosphatase 187 U/L (38-126); Anion Gap 17 mmol/L (8-16); Aspartate Amino Transferase 48 U/L (17-59); Bilirubin,Total 0.4 mg/dL (0.2-1.3); Blood Urea Nitrogen 14 mg/dL (9-20); Calcium 8.6 mg/dL (8.4-10.2); Carbon Dioxide 22 mmol/L (22-30); Chloride 104 mmol/L (98-107); Estimated CRCL calculation 61 ml/min; Estimated Glomerular Filt Rate > 60; Glucose 214 mg/dL (65-110); Lipase 151 U/L (23-300); Potassium 3.4 mmol/L (3.4-5.0); Sodium 143 mmol/L (137-145)
[2022-04-10 21:16] LABS: Anisocytosis 1+ (NORMAL); Hypochromasia 1+ (NORMAL)
[2022-04-10 21:17] LABS: Schistocytes None Seen (NORMAL)
--- NOTE | 2022-04-10 21:32 | ED.ABDPAIN ---
HPI - Abdominal Pain General Chief Complaint: Abdominal Pain Stated Complaint: abdominal pain Time Seen by Provider: 04/10/22 20:41 Source: patient Mode of arrival: EMS Limitations: no limitations History of Present Illness HPI narrative: Patient is a 52-year-old male, with a PMHx of varices, cirrhosis, CHF, who presents the ED via EMS with multiple complaints. Patient reports he has been feeling dizzy today. He states he was walking in from outside to talk to his and tell her about how he was feeling, when the next thing he remembers is being woken up by EMS. Per patient's at bedside, patient reportedly had a syncopal episode. He regained full consciousness within a few minutes. Patient also reports having increased right upper quadrant abdominal pain. He states this feels different from his usual pain that he experiences. He does feel more bloated than usual. Last paracentesis 03/29. Patient further reports having an episode of hematemesis today. He has history of upper GI bleed 2 weeks ago. He underwent EGD with Dr. Guerin and had his varices banded. Patient denies any nausea or dizziness currently. He denies any recent fevers, chest pain, SOB. Patient reported he has been taking up to 12 500 mg Tylenol per day for his abdominal pain. I discussed with patient that he should avoid Tylenol use due to his liver issues. I also discussed that this number exceeds the total daily limit. Related Data Home Medications Medication Instructions Recorded Confirmed acetaminophen 325 mg capsule 650 mg PO PRN PRN Pain 12/09/21 04/11/22 (Tylenol) spironolactone 50 mg tablet 25 mg PO QID 12/09/21 04/11/22 (Aldactone) carvedilol 12.5 mg tablet (Coreg) 6.25 mg PO Q12HR 04/11/22 04/11/22 potassium chloride 20 mEq 20 meq PO DAILY 04/11/22 04/11/22 tablet,extended release(part/cryst) Allergies Allergy/AdvReac Type Severity Reaction Status Date / Time No Known Allergies Allergy Verified 03/29/22 11:36 Review of Systems Review of Systems: CONSTITUTIONAL: Denies fever, chills, or sweats. EYES: Denies visual changes. ENT: Denies rhinorrhea, congestion, sore throat. CARDIOVASCULAR: Denies chest pain. RESPIRATORY: Denies cough or dyspnea. GASTROINTESTINAL: Reports nausea, RUQ pain, hematemesis. Denies constipation or diarrhea. GENITOURINARY: Denies dysuria or hematuria. NEUROLOGIC: Reports dizziness, syncope. Denies headache, numbness, or weakness. All systems reviewed & are unremarkable except as noted in HPI and below PMFSH Past Medical History Medical History Arthritis Cerebrovascular accident (2004) Chronic anemia Cirrhosis of liver with ascites Diastolic congestive heart failure Esophageal varices Gastric ulcer Gastroesophageal reflux disease Hypertension Kidney stone Leukemia In childhood. Pericardial effusion Noted on CT and echocardiogram in August 2020. No evidence of tamponade. Portal hypertensive gastropathy Noted on endoscopy on 03/23/[address] Duran. Prostate cancer Status post radiation seed implantation. Smoker Spontaneous bacterial peritonitis (04/2020) Tobacco use Type 2 diabetes mellitus Surgical History Surgical History History of appendectomy History of cholecystectomy History of inguinal hernia repair History of lithotripsy History of repair of right rotator cuff Family History Family History Mother Family history of malignant neoplasm of breast in first degree relative Breast cancer Father Acute myocardial infarction Hypertension Heart disease Other Diabetes mellitus Maternal Unkle Other Family history of malignant neoplasm Social History Social History Social History: Surrogate decision maker: Myra Worley (wi
[2022-04-10 21:49] LABS: Add Urine Microscopic? YES; Appearance Urine Clear (Clear); Bilirubin Urine Negative (Negative); Blood Urine Negative (Negative); Calcium Oxalate Crystals Urine Present /hpf; Color Urine Yellow (Yellow); Glucose Urine UA 2+ mg/dL (Negative); Ketones Urine Trace mg/dL (Negative); Leukocyte Esterase Ur Negative LEU/UL (Negative); Mucus Urine Rare /lpf; Nitrate Urine Negative (Negative); Protein Urine Negative (Negative); RBC Urine 0-2 /hpf (0-2); Specific Grav Ur 1.027 (1.001-1.035); Squamous Epithelial Cell Urine Rare /hpf (Few); Urobilinogen Urine Negative mg/dL (<2.0); WBC Urine 0-3 /hpf
[2022-04-10 22:17] LABS: Ammonia 13 umol/L (9-30)
[2022-04-10 22:27] LABS: NT Pro B Type Natriuretic Pept 1250 pg/mL (5-100)
[2022-04-10] MEDS: ONDANSETRON INJ 4 MG/2 ML VIAL IV PUSH (22:31)
[2022-04-10] MEDS: MORPHINE SULFATE (*CRX) 4 MG/ML INJ IV PUSH (22:34)
--- NOTE | 2022-04-10 23:43 | ECG_ITS ---
Measurements Intervals [place] Rate: 100 P: 63 CT: 177 QRS: 17 QRSD: 82 T: 28 QT: 362 QTc: 468 Interpretive Statements SINUS TACHYCARDIA NONSPECIFIC ST & T-WAVE ABNORMALITY BORDERLINE ECG COMPARED TO ECG 12/09/2021 10:22:41 T-WAVE ABNORMALITY NOW PRESENT Electronically Signed On 04-11-2022 16:38:55 CDT by Rylan Sams M.D.
[2022-04-11] VITALS (30 sets, daily range): BP systolic 135–166; BP diastolic 81–97; PULSE 80–121; RESP 10–26; TEMP 35.8–36.6; O2SAT 96–100; BMI 29.2
--- NOTE | 2022-04-11 | ECHOL_ITS ---
Patient Info Name: Matt Worley Age: 52 years : 1970 Gender: Male Ht: 65 in Wt: 175 lbs BSA: 1.93 m2 HR: 87 bpm BP: 138 / 86 mmHg Heart Rhythm: Sinus Rhythm Technical Quality: Good Exam Date: 04/11/2022 4:26 PM Exam Location: [facility] Patient Status: Outpatient Admit Date: 04/11/2022 Staff Ordering Physician: Xu Parra MD Dental Equipment Repairer: Berna Wharton RDCS Attending Provider: Dima Buenrostro MD Exam Type: CA echo limited Study Info Indications - EVAL LV FXN /EFFUSION Limited two-dimensional transthoracic echocardiogram is performed. Summary 1. Left ventricular chamber dimension is normal. 2. Left ventricular systolic function is lower limits of normal, estimated at 50-55%. 3. There is mildly increased left ventricular wall thickness. 4. There is moderate anterior and larger posterior pericardial effusion. Mild invagination of the right atrial free wall suggestive of increased intrapericardial pressures without other echocardiographic changes consistent with tamponade physiology. 5. Normal inferior vena cava with >50% collapse upon inspiration consistent with normal right atrial pressure, 5 mmHg. Left Ventricle Left ventricular chamber dimension is normal. Left ventricular systolic function is lower limits of normal, estimated at 50-55%. There is mildly increased left ventricular wall thickness. Right Ventricle Right ventricular chamber dimension is normal. Right ventricular systolic function is normal. Aortic Valve The aortic valve is not well visualized. Pulmonic Valve The pulmonic valve is not well visualized. Mitral Valve The mitral valve has normal leaflets. Tricuspid Valve The tricuspid valve leaflets are normal. Pericardium/Pleural The pericardium appears normal. There is moderate anterior and larger posterior pericardial effusion. Mild invagination of the right atrial free wall suggestive of increased intrapericardial pressures without other echocardiographic changes consistent with tamponade physiology. Inferior Vena Cava Normal inferior vena cava with >50% collapse upon inspiration consistent with normal right atrial pressure, 5 mmHg. Aorta The aortic root size at the sinus of Valsalva is normal. Tricuspid Valve Name Value Normal Estimated PAP/RSVP RA Pressure 5 mmHg <=5 Ventricles Name Value Normal LV Dimensions 2D/MM IVS Diastolic Thickness (2D) 0.9 cm 0.6-1.0 LVID Diastole (2D) 4.7 cm 4.2-5.8 LVIW Diastolic Thickness (2D) 1.1 cm 0.6-1.0 LVID Systole (2D) 3.6 cm 2.5-4.0 LV Mass (2D Cubed) 170.77 g 88.00-224.00 LV Mass Index (2D Cubed) 88 g/m2 49-115 Relative Wall Thickness (2D) 0.49 LV Fractional Shortening/Ejection Fraction 2D/MM LV Fractional Shortening (2D)
[2022-04-11] MEDS: HYDROmorphone HCL INJ (*CRX) 1 MG/ML SYR IV PUSH ×7 (00:01→21:23)
--- NOTE | 2022-04-11 00:02 | PM.IMHP ---
H&P: HPI History of Present Illness Date/Time: 04/11/22 00:02 Chief Complaint: hematemesis Narrative: This is a 52-year-old male with past medical history he had significant for hepatic cirrhosis, patient presents to the emergency room due to episode of hematemesis x2 in the morning, abdominal distension, abdominal pain. patient just recently had paracentesis where he had 2 L of fluid removed from his abdomen also had upper endoscopy with band ligation of esophageal varices. patient denies any fevers, rigors, chills. He has upcoming appointment with new liver specialist coming up on April 25. Patient has had multiple episodes of diarrhea daily as well, denies any cough, sputum production. preliminary workup was significant for chest x-ray was reported as: IMPRESSION: Cardiomegaly, pulmonary vascular redistribution, suggesting mild pulmonary venous hypertension Minimal infiltrate or atelectasis in the right lower lung? CT of abdomen and pelvis was reported as: IMPRESSION: Moderate pericardial effusion Cirrhosis, splenomegaly, mild ascites 3 mm lower pole nonobstructing left renal calculus Prostate enlargement and calcification Status post appendectomy Chronic fracture deformities of T11 and T12, stable compared to 06/13/2021 patient has been admitted for further evaluation management and treat Review of Systems Review of Systems: hematemesis, abdominal distension, abdominal pain. Constitutional: Constitutional: Denies chills, Denies fever(s), Denies malaise and Denies night sweats Eyes: Eyes: Denies change in vision ENT: Denies dysphagia, Denies vertigo, Denies dizziness and Denies odynophagia Cardiovascular: Cardiovascular: Denies chest pain, Denies leg edema and Denies dyspnea Respiratory: Respiratory: Denies cough Gastrointestinal: Gastrointestinal: Reports abdominal pain, Denies dyspepsia, Denies heartburn and Reports other ( hematemesis) Genitourinary: Genitourinary: Denies dysuria Musculoskeletal: Musculoskeletal: Denies joint swelling Integumentary/Breasts: Skin/Breast: Denies rash Neurologic: Denies vertigo, Denies dizziness, Denies focal weakness and Denies Sensory deficit (Neuro) Psychiatric: Psychiatric: Reports no additional psychiatric complaints and Reports as per HPI Endocrine: Endocrine: Denies cold intolerance, Denies flushing, Denies heat intolerance, Denies polyphagia, Denies polydipsia and Denies palpitations Hematologic/Lymphatic: Hematologic/Lymphatic: Reports no additional hematologic/lymphatic complaints and Reports as per HPI Allergic/Immunologic: Allergic/Immunologic: Reports no additional allergic/immunologic complaints and Reports as per HPI [facility] Past Medical History Medical History Arthritis Cerebrovascular accident (2004) Chronic anemia Cirrhosis of liver with ascites Diastolic congestive heart failure Esophageal varices Gastric ulcer Gastroesophageal reflux disease Hypertension Kidney stone Leukemia In childhood. Pericardial effusion Noted on CT and echocardiogram in August 2020. No evidence of tamponade. Portal hypertensive gastropathy Noted on endoscopy on 03/23/[address] Duran. Prostate cancer Status post radiation seed implantation. Smoker Spontaneous bacterial peritonitis (04/2020) Tobacco use Type 2 diabetes mellitus Surgical History Surgical History History of appendectomy History of cholecystectomy History of inguinal hernia repair History of lithotripsy History of repair of right rotator cuff Family History Family History Mother Family history of malignant neoplasm of breast in first degree relative Breast cancer Father Acute myocardial infarction Hypertension Heart disease Other Diabetes mellitus Maternal Unkle Other Family hist
[2022-04-11] MEDS: PANTOPRAZOLE SODIUM IV 40 MG VIAL IV PUSH ×3 (00:20→21:27)
[2022-04-11 01:05] LABS: Influenza A QL RT-PCR Negative (Negative); Influenza B QL RT-PCR Negative (Negative); SARS-CoV-2 RNA PCR Negative
--- NOTE | 2022-04-11 01:12 | ADMGEN ---
This patient, Matt Worley II, was admitted to Medical Room 252-01. Patient/family oriented to hospital policies and general routines including ID bracelet, bed and alarms, visiting hours, pain management, procedures, bathroom and other care routines, personal items, smoking policy, room service/diet, and visiting hours. Information on how to activate the Rapid Response Team has been discussed. Patient/Family are encouraged to report perceived risks to care and to ask questions if they do not understand what they are told or what they should do.
[2022-04-11 01:37] LABS: Hematocrit 29.9 % (42.0-52.0); Hemoglobin 8.5 g/dL (14.0-18.0)
[2022-04-11] MEDS: ONDANSETRON INJ 4 MG/2 ML VIAL IV PUSH ×4 (02:39→18:02)
[2022-04-11 03:36] LABS: Acetaminophen < 10 ug/mL (10-30)
[2022-04-11 08:51] LABS: Hematocrit 31.8 % (42.0-52.0); Hemoglobin 8.9 g/dL (14.0-18.0)
--- NOTE | 2022-04-11 09:14 | WPDGICN ---
Assessment and Plan Assessment and plan (1) Acute upper gastrointestinal bleeding: Code(s): K92.2 - Gastrointestinal hemorrhage, unspecified Status: Acute Assessment and Plan: Yesterday he had hematemesis x2. Just last month he had coffee-ground emesis and was found to have varices that required banding. will perform EGD today. I suspect we may have to band varices again. I discussed with him the fact that he may need to increase his carvedilol dose. (2) Cirrhosis: Qualifiers: Ascites presence: with ascites Hepatic cirrhosis type: alcoholic cirrhosis Qualified Code(s): K70.31 - Alcoholic cirrhosis of liver with ascites Code(s): K74.60 - Unspecified cirrhosis of liver Status: Acute Assessment and Plan: He states that he has not been a drinker although he did drink some when he was younger. 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 Unfortunately we had not been able to get him to get connected with food or baggage handling rampman in [place] except for 1 visit that he had earlier this year. He does however now having appointment, finally to see a food or baggage handling rampman April 25 at [facility] (3) Ascites: Code(s): R18.8 - Other ascites Status: Acute Assessment and Plan: He has had some ascites for the last 2 years. What is unusual and difficult understand is that he always seems have extreme pain ?10/10? when he presents to the emergency room with moderate ascites. Generally when he has a paracentesis there is less than 1500 mL removed. Several occasions he was tested for SBP and these have all been negative with negative cultures. he did have 2 L of ascitic fluid removed a few weeks ago when he came to the emergency room. Current CT scan shows only minimal ascites (4) Pancytopenia: Code(s): D61.818 - Other pancytopenia Status: Acute Assessment and Plan: Few months ago his white blood count was 2500 and platelet count was in the 60,000 range. They both improved. (5) Esophageal varices: Code(s): I85.00 - Esophageal varices without bleeding Status: Acute Assessment and Plan: Multiple EGDs have shown small esophageal varices but usually there is no blood in the stomach when we examined him. he has been maintained on carvedilol. At 1 point he was on 12.5 mg b.i.d.. Somehow it appears that this got reduced back to 6.25 mg. His resting pulse now is around 100 and and previous recent admissions that has been between 90 and 100 consequently, I believe that he needs a larger dose. (6) Abdominal pain: Code(s): R10.9 - Unspecified abdominal pain Status: Acute Assessment and Plan: he has suffered from almost chronic and constant abdominal pain which has been inexplicable although he tells me that actually it is better lately although he is still taking Tylenol, 4 times a day GI Consult Note Consult date/time: 04/11/22 09:14 HPI: Matt Worley II is a 52 year old male Who was brought to emergency room yesterday by EMS. He had vomited blood twice yesterday morning. He had gone out to talk to his because he was feeling a little lightheaded, and the next thing he knew he woke up in the ambulance. He has had several admissions for gastrointestinal bleeding due to varices. Also several admissions because of abdominal pain for which she would have paracentesis. Normally only about 2 L of fluid is removed in fact he came to the emergency room couple of weeks ago with complaints of increasing ascites and underwent paracentesis with removal of [address] scan which I reviewed shows no significant amount of ascites at this time. Report is: IMPRESSION: Moderate pericardial effusion Cirrhosis, splenomegaly, mild ascites 3 mm lower pole nonobstructing left renal calculus Prostate enlargement and calcification Status post appendectomy Chronic fracture deformitie
[2022-04-11 09:37] LABS: Glucose Point of Care 182 mg/dl (65-105)
[2022-04-11] MEDS: LACTATED RINGERS 1,000 ML 150 ML IV CONT (09:39)
--- NOTE | 2022-04-11 09:43 | WPDANESEPPF ---
Anes - Initial Pre Proc Eval Procedure: Operation Date: 04/11/22 15:00 Proposed Procedures p Esophagogastroduodenoscopy EGD - Carroll Guerin MD Date/Time: 04/11/22 09:43 Surgeon: Dima Buenrostro MD Pre Op Diagnosis: Hematemesis,cirrhosis,RUQ abd pain,syncope Patient Data Age: 52 Gender: M Height: 1.65 m Weight: 79.8 kg Last Vital Signs Temp 96.8 F L 04/11/22 03:31 Pulse 103 H 04/11/22 04:00 Resp 20 04/11/22 03:31 BP 141/84 H 04/11/22 03:31 Pulse Ox 96 04/11/22 03:31 O2 Del Method Room Air 04/10/22 20:16 Allergies Allergy/AdvReac Type Severity Reaction Status Date / Time No Known Allergies Allergy Verified 04/11/22 09:39 Home Medications Medication Instructions Recorded Confirmed Type pantoprazole 40 mg tablet,delayed 40 mg PO Q12HR #60 tabs 08/17/21 04/11/22 Rx release acetaminophen 325 mg capsule 650 mg PO PRN PRN Pain 12/09/21 04/11/22 History (Tylenol) spironolactone 50 mg tablet 25 mg PO QID 12/09/21 04/11/22 History (Aldactone) empagliflozin 10 mg tablet 10 mg PO DAILY #30 tabs 12/11/21 04/11/22 Rx (Jardiance) furosemide 40 mg tablet 40 mg PO BID #60 tabs 12/11/21 04/11/22 Rx tramadol 50 mg tablet (Ultram) 50 mg PO Q4-6H PRN pain #20 tabs 03/12/22 04/11/22 Rx tramadol 50 mg tablet 50 mg PO Q6H PRN pain #14 tabs 03/29/22 04/11/22 Rx carvedilol 12.5 mg tablet (Coreg) 6.25 mg PO Q12HR 04/11/22 04/11/22 History potassium chloride 20 mEq 20 meq PO DAILY 04/11/22 04/11/22 History tablet,extended release(part/cryst) Laboratory Tests 04/10/22 04/10/22 04/10/22 20:50 20:50 20:50 WBC 3.5 K/mm3 L K/mm3 (4.5-10.0) RBC 4.12 M/mm3 L M/mm3 (4.6-6.20) Hgb 9.9 g/dL L g/dL (14.0-18.0) Hct 34.5 % L % (42.0-52.0) MCV 83.7 fl fl (80-100) MCH 24.0 pg L pg (26-34) MCHC 28.7 g/dl L g/dl (32-36) RDW 16.0 % H % (11.5-14.5) Plt Count 121 k/mm3 L D k/mm3 (150-375) MPV 11.8 fl H fl (7.4-10.4) Immature Gran % (Auto) 0.3 % % (0-0.5) Neut % (Auto) 65.8 % % (45.5-73.1) Lymph % (Auto) 18.9 % % (18.3-44.2) [place] % (Auto) 13.3 % H % (2.6-8.5) Eos % (Auto) 1.1 % % (0-4.4) Baso % (Auto) 0.6 % % (0.2-1.2) Lymph # (Auto) 0.67 K/mm3 L K/mm3 (0.9-3.2) [place] # (Auto) 0.5 K/mm3 K/mm3 (0.1-0.6) Eos # (Auto) 0.0 K/mm3 K/mm3 (0-0.3) Baso # (Auto) 0.0 K/mm3 K/mm3 (0.0-0.1) Abs Immat Gran (auto) 0.01 K/mm3 K/mm3 (0.00-0.031) Absolute Neuts (auto) 2.3 K/mm3 K/mm3 (1.3-6.7) Absolute Nucleated RBC 0.0 K/mm3 K/mm3 (0.0-0.012) Nucleated RBC % 0.0 % % (0.0-0.2) Platelet Estimate Slightly decreased (Adequate) % Immature Plt Fraction 9.4 % % (0.9-11.2) Hypochromasia 1+ (NORMAL) Anisocytosis 1+ (NORMAL) Schistocytes None seen (NORMAL) PT 13.6 Seconds Seconds (11.1-14.7) INR 1.1 APTT 30.3 SECONDS SECONDS (22.3-36.8) Sodium 143 mmol/L mmol/L (137-145) Potassium 3.4 mmol/L mmol/L (3.4-5.0) Chloride 104 mmol/L mmol/L (98-107) Carbon Dioxide 22 mmol/L mmol/L (22-30) Anion Gap 17 mmol/L H mmol/L (8-16) BUN 14 mg/dL mg/dL (9-20) Creatinine 1.10 mg/dL mg/dL (0.7-1.3) Estim Creat Clear Calc 61 ml/min ml/min Estimated GFR > 60 (59 - ) Glucose 214 mg/dL H mg/dL (65-110) POC Capillary Glucose Calcium 8.6 mg/dL mg/dL (8.4-10.2) Total Bilirubin 0.4 mg/dL mg/dL (0.2-1.3) AST 48 U/L U/L (17-59) ALT 16 U/L U/L (6-50) Alkaline Phosphatase 187 U/L H U/L (38-126) Ammonia NT-Pro-B Natriuret Pep Total Protein 7.0 g/dL g/dL
[2022-04-11] MEDS: POTASSIUM CHLORIDE 20 MEQ TABLET.ER PO (10:48)
[2022-04-11] MEDS: SPIRONOLACTONE 25 MG TABLET PO ×3 (10:48→21:26)
[2022-04-11 12:23] LABS: Hematocrit 31.8 % (42.0-52.0)
--- NOTE | 2022-04-11 12:31 | PM.IMPN ---
Progress Note: A&P Assessment and Plan (1) Hematemesis: Qualifiers: Nausea presence: with nausea Qualified Code(s): K92.0 - Hematemesis Code(s): K92.0 - Hematemesis Status: Acute Assessment and Plan: Patient with cirrhosis known esophageal varices that have been banded last month. Also has been noted to have portal hypertensive gastropathy. He is not on NSAIDs. GI has been consulted. Hemoglobin was 9.9 on admission and has trended downward. He does have a chronic underlying anemia. Patient was started on octreotide IV as well as Protonix IV. Continue to follow H&H closely. Transfuse as necessary. Plan for EGD later today. (2) Syncope and collapse: Code(s): R55 - Syncope and collapse Status: Acute Assessment and Plan: Patient had episode of syncope. Suspect more likely related to dehydration from his diarrhea then from acute blood loss since his H&H is relatively stable overall. Continue telemetry. Check echocardiogram. Check orthostatics. (3) Anemia: Code(s): D64.9 - Anemia, unspecified Status: Acute Assessment and Plan: Hemoglobin 9.9 on admission and has dropped to the 8 range. He does have chronic underlying anemia and hemoglobin within his baseline at this time. Will continue to monitor H&H closely to ensure stability. (4) Esophageal varices: Code(s): I85.00 - Esophageal varices without bleeding Status: Acute Assessment and Plan: Patient with history of upper GI bleed related to variceal bleeding status post band ligation last admission. Patient with recurrence of upper GI bleeding with plans for EGD today. (5) Portal hypertensive gastropathy: Code(s): K76.6 - Portal hypertension; K31.89 - Other diseases of stomach and duodenum Status: Acute Assessment and Plan: As above (6) Cirrhosis: Qualifiers: Ascites presence: with ascites Hepatic cirrhosis type: unspecified hepatic cirrhosis Qualified Code(s): K74.60 - Unspecified cirrhosis of liver; R18.8 - Other ascites Code(s): K74.60 - Unspecified cirrhosis of liver Status: Acute Assessment and Plan: patient has an upcoming appointment with liver specialist on April 25. continue Lasix and Aldactone. Appreciate GI input. (7) Abdominal pain: Code(s): R10.9 - Unspecified abdominal pain Status: Acute Assessment and Plan: Patient has worsening right upper quadrant pain. This is chronic but worse this morning. He has denies that this was area was injured during the syncopal episode. CT of the abdomen and pelvis shows moderate pericardial effusion, cirrhosis, splenomegaly and mild ascites. No acute findings to explain his increasing right upper quadrant pain. Will continue to monitor. (8) Diastolic congestive heart failure: Qualifiers: Heart failure chronicity: chronic Qualified Code(s): I50.32 - Chronic diastolic (congestive) heart failure Code(s): I50.30 - Unspecified diastolic (congestive) heart failure Status: Acute Assessment and Plan: patient with history of diastolic CHF. Appears to be well compensated. Pericardial effusion noted. This appears to be stable. Continue Coreg. Continue Lasix. Check echocardiogram. (9) Tobacco dependence: Code(s): F17.200 - Nicotine dependence, unspecified, uncomplicated Status: Acute Assessment and Plan: nicotine patch as needed (10) Acute diarrhea: Code(s): R19.7 - Diarrhea, unspecified Status: Acute Assessment and Plan: Patient with severe diarrhea with 10-15 bowel movements a day for the past 2 weeks. Electrolytes are stable. He does have a mild gap acidosis with a normal serum bicarb. Will check stool studies. He has not had a bowel movement since he has been admitted. Subjective Date/time seen: 04/11/22 12:31 Interval history: 51
[2022-04-11] MEDS: FUROSEMIDE 40 MG TABLET PO (16:40)
[2022-04-11 19:54] LABS: Hematocrit 30.3 % (42.0-52.0); Hemoglobin 8.9 g/dL (14.0-18.0)
[2022-04-11] MEDS: PANTOPRAZOLE 40 MG TABLET PO (21:26)
[2022-04-11] MEDS: carvediloL 12.5 MG TABLET PO (21:26)
[2022-04-11 22:32] LABS: Toxigenic C. Diff POSITIVE (NEGATIVE)
[2022-04-12] VITALS (8 sets, daily range): BP systolic 113–125; BP diastolic 70–76; PULSE 74–88; RESP 18; TEMP 36.1–36.2; O2SAT 95–97
[2022-04-12] MEDS: HYDROmorphone HCL INJ (*CRX) 1 MG/ML SYR IV PUSH ×6 (00:15→18:15)
[2022-04-12] MEDS: ONDANSETRON INJ 4 MG/2 ML VIAL IV PUSH (00:21)
[2022-04-12 06:23] LABS: Hematocrit 28.9 % (42.0-52.0); Hemoglobin 8.4 g/dL (14.0-18.0); Immature Platelet Fraction Pct 10.6 % (0.9-11.2); Mean Corpuscular HGB Conc 29.1 g/dl (32-36); Mean Corpuscular Hemoglobin 23.7 pg (26-34); Mean Corpuscular Volume 81.6 fl (80-100); Platelet Count Result 84 k/mm3 (150-375); Red Blood Count 3.54 M/mm3 (4.6-6.20); Red Cell Distribution Width 15.7 % (11.5-14.5); White Blood Count 2.5 K/mm3 (4.5-10.0)
[2022-04-12 06:40] LABS: Alanine Aminotransferase 14 U/L (6-50); Albumin Level 3.7 g/dL (3.5-5.1); Alkaline Phosphatase 179 U/L (38-126); Anion Gap 10 mmol/L (8-16); Aspartate Amino Transferase 36 U/L (17-59); Bilirubin,Total 0.4 mg/dL (0.2-1.3); Blood Urea Nitrogen 16 mg/dL (9-20); Calcium 8.5 mg/dL (8.4-10.2); Carbon Dioxide 29 mmol/L (22-30); Chloride 95 mmol/L (98-107); Estimated CRCL calculation 61 ml/min; Estimated Glomerular Filt Rate > 60; Glucose 143 mg/dL (65-110); Potassium 3.8 mmol/L (3.4-5.0); Sodium 134 mmol/L (137-145)
[2022-04-12] MEDS: carvediloL 12.5 MG TABLET PO (10:17)
[2022-04-12] MEDS: SPIRONOLACTONE 25 MG TABLET PO ×2 (10:18→12:50)
[2022-04-12] MEDS: POTASSIUM CHLORIDE 20 MEQ TABLET.ER PO (10:18)
[2022-04-12] MEDS: FIDAXOMICIN 200 MG TABLET PO (10:18)
[2022-04-12] MEDS: FUROSEMIDE 40 MG TABLET PO (10:18)
[2022-04-12] MEDS: PANTOPRAZOLE 40 MG TABLET PO (10:20)
[2022-04-12] MEDS: PANTOPRAZOLE SODIUM IV 40 MG VIAL IV PUSH (10:20)
--- NOTE | 2022-04-12 10:24 | PM.CNCAR ---
Assessment and Plan Assessment and plan (1) Pericardial effusion: Code(s): I31.3 - Pericardial effusion (noninflammatory) Status: Acute (2) Syncope and collapse: Code(s): R55 - Syncope and collapse Status: Acute Plan Patient's pericardial effusion is chronic and he has no evidence of echocardiographic tamponade. Clinically, he does not have clinical tamponade either. Unlikely that his syncopal event was related to this. Chronic pericardial effusion likely secondary to his underlying cirrhosis. Patient does not need further inpatient workup or evaluation regarding his stable pericardial effusion. History of Present Illness History of Present Illness Consult date/time: 04/12/22 10:24 Requesting physician: Xu Parra MD Consult reason: Other (Pericardial effusion) Reason For Visit: Hematemesis,cirrhosis,RUQ abd pain,syncope Narrative: Patient is a 52-year-old male with a history of cirrhosis who presented with hematemesis. Patient has also been having diarrhea with up to 10-15 bowel movements daily. Patient reports a syncopal episode at home prior to admission. He states that he was feeling dizzy all day, and even up right before losing consciousness. No chest pain or shortness of breath at that time. Patient underwent EGD yesterday which showed nonbleeding esophageal varices. Echocardiogram done yesterday given his syncope and showed preserved LVEF with moderate pericardial effusion with possible increased intrapericardial pressures without other evidence of tamponade. Given these findings, Cardiology consulted. Patient denies chest pain, palpitations, shortness of breath. Review of Systems Review of Systems: 12-point ROS obtained. Negative, unless stated in HPI. [facility] Past Medical History Medical History Arthritis Cerebrovascular accident (2004) Chronic anemia Cirrhosis of liver with ascites Diastolic congestive heart failure Esophageal varices Gastric ulcer Gastroesophageal reflux disease Hypertension Kidney stone Leukemia In childhood. Pericardial effusion Noted on CT and echocardiogram in August 2020. No evidence of tamponade. Portal hypertensive gastropathy Noted on endoscopy on 03/23/[address] Duran. Prostate cancer Status post radiation seed implantation. Smoker Spontaneous bacterial peritonitis (04/2020) Tobacco use Type 2 diabetes mellitus Surgical History Surgical History History of appendectomy History of cholecystectomy History of inguinal hernia repair History of lithotripsy History of repair of right rotator cuff Family History Family History Mother Family history of malignant neoplasm of breast in first degree relative Breast cancer Father Acute myocardial infarction Hypertension Heart disease Other Diabetes mellitus Maternal Unkle Other Family history of malignant neoplasm Social History Social History Social History: Surrogate decision maker: Myra Worley () or 1st Marnie Washington (aunt). Code status: Full code Smoking packs per day: 0.5 Smoking cigarettes per day: 10.0 Years smoked: 50 Smoking pack-years: 25.00 Smoking status: Former smoker Tobacco type: cigarettes Second hand tobacco smoke exposure: No Alcohol intake: former Alcohol use details: Former beer drinker. Substance use: never Substance use type: does not use Has the Lack of Transportation Kept You From Medical Appointments or From Getting Medications?: No Within the Past 12 Months, Were You Worried Whether Your Food Would Run Out Before You Got Money to Buy More?: Never True What is Your Housing Situation Today?: I Have Housing Are You Worried That in the Next 2 Months, You May Not Have Your Own Housing to Live In?: No Do Yo
[2022-04-12 10:27] LABS: Magnesium 1.7 mg/dL (1.6-2.3)
[2022-04-12 12:22] LABS: Total Triiodothyronine (T3) 1.35 NG/ML (0.97-1.69)
--- NOTE | 2022-04-12 13:03 | WPDGIPROGNO ---
Progress Note: A&P Assessment and Plan (1) C. difficile colitis: Code(s): A04.72 - Enterocolitis due to Clostridium difficile, not specified as recurrent Status: Acute Assessment and Plan: new diagnosis, just started on dificid he has good appetite, no more nausea or vomiting probably he can go home and continue treatment as outpatient will need follow-up with Dr Guerin 6-8 weeks (2) GI bleed: Qualifiers: GI bleed type/associated pathology: unspecified gastrointestinal hemorrhage type Qualified Code(s): K92.2 - Gastrointestinal hemorrhage, unspecified Code(s): K92.2 - Gastrointestinal hemorrhage, unspecified Status: Acute Assessment and Plan: s/p egd varices without stigmata of bleeding coreg was increased (3) Esophageal varices: Code(s): I85.00 - Esophageal varices without bleeding Status: Acute (4) Hematemesis: Qualifiers: Nausea presence: with nausea Qualified Code(s): K92.0 - Hematemesis Code(s): K92.0 - Hematemesis Status: Acute Assessment and Plan: resolved (5) Abdominal pain, RUQ: Code(s): R10.11 - Right upper quadrant pain Status: Acute (6) Pericardial effusion: Code(s): I31.3 - Pericardial effusion (noninflammatory) Status: Acute Assessment and Plan: by cardiology no new issues Subjective Date/time seen: 04/12/22 13:03 Interval history: similar abdominal pain but he is comfortable and having lunch, no more report of emesis. Had soft stool and just diagnosed with C diff Review of Systems Review of Systems: All systems reviewed & are unremarkable except as noted in HPI and below Exam Const: General: comfortable and no acute distress HENMT: Mouth: Yes moist mucous membranes Eyes: General: appearance normal, both eyes and all related structures Neck: Neck: supple and No no JVD Resp: Effort & Inspection: normal respiratory effort Auscultation: clear to auscultation bilaterally Cardio: Rate: regular rate Rhythm: regular rhythm Heart sounds: no murmurs GI: GI Palp: Yes Soft to palpation Auscultation: normal bowel sounds Skin: General skin exam: normal color Neuro: Speech: normal speech Extrem: General: no edema Psych: Mental Status: mental status grossly normal Objective Data Vital Signs Vital Signs: Vital Signs - 24 hr 04/11/22 16:00 04/11/22 13:25 04/11/22 19:08 Temperature 96.5 F L Pulse Rate 90 90 Respiratory Rate 18 Blood Pressure 147/89 H 157/84 H Pulse Oximetry 100 Oxygen Delivery 04/11/22 19:08 04/11/22 19:08 04/11/22 13:25 Temperature 97.4 F L 96.5 F L Pulse Rate 86 90 Respiratory Rate 17 18 Blood Pressure 161/96 H 154/88 H 147/89 H Pulse Oximetry 100 100 Oxygen Delivery 04/11/22 20:00 04/11/22 20:10 04/11/22 20:08 Temperature 97.2 F L 97.2 F L 97.2 F L Pulse Rate 89 89 89 Respiratory Rate 18 18 18 Blood Pressure 153/95 H 153/95 H 144/86 H Pulse Oximetry 97 97 98 Oxygen Delivery 04/11/22 20:09 04/11/22 20:00 04/11/22 20:00 Temperature 97.2 F L Pulse Rate 93 80 82 Respiratory Rate 18 Blood Pressure 163/87 H Pulse Oximetry 98 Oxygen Delivery Room Air Room Air 04/12/22 03:34 04/11/22 20:00 04/12/22 00:00 Temperature 97.1 F L Pulse Rate 74 86 88 Respiratory Rate 18 Blood Pressure 125/76 Pulse Oximetry 97 Oxygen Delivery 04/12/22 04:00 04/12/22 10:17 04/12/22 08:00 Temperature Pulse Rate 79 82 Respiratory Rate Blood Pressure Pulse Oximetry Oxygen Delivery Room Air Intake/Output Intake/Output: Intake & Output 04/09/22 04/10/22 04/11/22 04/12/22 23:59 23:59 23:59 23:59 Intake Total 960 480 Output Total 350 1000 Balance 610 -520 Meds/Results Medications: Active Medications Generic Name Dose Route Start Last Admin Trade Name Freq PRN Reason Stop Dose Admin Carvedilol 12.5 mg 04/11/22 21:00 04/12/22 10:17 Carve
--- NOTE | 2022-04-12 16:46 | PM.DS ---
DS: Admitting Diagnosis Discharge Date 04/12/22 Admitting Diagnosis Hematemesis DS: Discharge Diagnosis Discharge Diagnosis (1) Hematemesis: Qualifiers: Nausea presence: with nausea Qualified Code(s): K92.0 - Hematemesis Code(s): K92.0 - Hematemesis Status: Acute (2) C. difficile colitis: Code(s): A04.72 - Enterocolitis due to Clostridium difficile, not specified as recurrent Status: Acute (3) Syncope and collapse: Code(s): R55 - Syncope and collapse Status: Acute (4) Anemia: Code(s): D64.9 - Anemia, unspecified Status: Acute (5) Esophageal varices: Code(s): I85.00 - Esophageal varices without bleeding Status: Acute (6) Portal hypertensive gastropathy: Code(s): K76.6 - Portal hypertension; K31.89 - Other diseases of stomach and duodenum Status: Acute (7) Cirrhosis: Qualifiers: Ascites presence: with ascites Hepatic cirrhosis type: unspecified hepatic cirrhosis Qualified Code(s): K74.60 - Unspecified cirrhosis of liver; R18.8 - Other ascites Code(s): K74.60 - Unspecified cirrhosis of liver Status: Acute (8) Abdominal pain: Code(s): R10.9 - Unspecified abdominal pain Status: Acute (9) Diastolic congestive heart failure: Qualifiers: Heart failure chronicity: chronic Qualified Code(s): I50.32 - Chronic diastolic (congestive) heart failure Code(s): I50.30 - Unspecified diastolic (congestive) heart failure Status: Acute (10) Tobacco dependence: Code(s): F17.200 - Nicotine dependence, unspecified, uncomplicated Status: Acute (11) Pancytopenia: Code(s): D61.818 - Other pancytopenia Status: Acute DS: Summary Hospital Course Reason for hospitalization: 52yo male with cirrhosis here for hematemesis. Please see H&P for details Hospital Course: Patient presents with complaints of diarrhea and hematemesis. He has cirrhosis with esophageal varices that have been banded last month.? Also has been noted to have portal hypertensive gastropathy.? He is not on NSAIDs.? GI was consulted.? Hemoglobin was 9.9 on admission and trended downward to 8 range but there remained stable. He did not require a transfusion.? He does have a chronic underlying anemia.? Patient was started on octreotide IV as well as Protonix IV.? EGD showing nonbleeding esophageal varices and gastritis. Coreg dose was increased. Diet started and he tolerated this well. ? Patient had episode of syncope.? Suspect more likely related to dehydration from his diarrhea then from acute blood loss since his H&H is relatively stable overall.? He was on telemetry but no acute findings. Echocardiogram showing EF 50-55% and moderate to large pericardical effusion. No evidence of tamponande and not felt contributing to his syncope per Cardiology. Orthostatic ital signs were normal. Patient had worsening right upper quadrant pain. This is chronic but worse recently.? He denied that this was area was injured during the syncopal episode.? CT of the abdomen and pelvis shows moderate pericardial effusion, cirrhosis, splenomegaly and mild ascites.? No acute findings to explain his increasing right upper quadrant pain.?Patient with severe diarrhea with 10-15 bowel movements a day for the past 2 weeks.? Electrolytes are stable.? He does have a mild gap acidosis with a normal serum bicarb.?Stool studies were positive for CDiff. He was started on Dificid. His diarrhea did improve. He overall did well and was able to be discharged home on 04/12/22. Status at Discharge Cognitive/behavioral status at discharge: Stable Time Spent with Patient Time attestation: Total time spent providing and/or coordinating discharge services: 35 minutes Time spent: Greater than 30 minutes Exam Narrative: AF 97.0 113/70 77 18 95% ra Gen - NARD Chest - few bibasilar rhonchi o/w clear, nml RR CV - RRR S1/S2. Tele
--- NOTE | 2022-04-12 16:48 | WPDANESPN ---
Anes - Prog Note Post-Op Date/Time: 04/12/22 16:48 Cardiovascular status: normal Respiratory status: normal Airway patency: baseline Mental status: baseline Post-Op hydration status: normal Vital Signs: Last Vital Signs Temp 36.1 C L 04/12/22 14:43 Pulse 77 04/12/22 14:43 Resp 18 04/12/22 14:43 BP 113/70 04/12/22 14:43 Pulse Ox 95 04/12/22 14:43 O2 Del Method Room Air 04/12/22 08:00 Pain Score (VAS): 06/24 I/O: Intake & Output 04/12/22 04/12/22 04/12/22 07:59 15:59 23:59 Intake Total 240 480 Output Total 1000 Balance -760 480 Laboratory Tests 04/12/22 06:00 04/12/22 06:00 04/11/22 04/11/22 04/12/22 19:29 20:26 06:00 WBC 2.5 L RBC 3.54 L Hgb 8.9 L 8.4 L Hct 30.3 L 28.9 L MCV 81.6 MCH 23.7 L MCHC 29.1 L RDW 15.7 H Plt Count 84 L MPV 11.0 H % Immature Plt Fraction 10.6 Sodium Potassium Chloride Carbon Dioxide Anion Gap BUN Creatinine Estim Creat Clear Calc Estimated GFR Glucose Calcium Magnesium Total Bilirubin AST ALT Alkaline Phosphatase Total Protein Albumin TSH (Reflex) Free T4 Total T3 C. difficile (PCR) Positive A* 04/12/22 04/12/22 04/12/22 06:00 06:00 06:00 WBC RBC Hgb Hct MCV MCH MCHC RDW Plt Count MPV % Immature Plt Fraction Sodium 134 L Potassium 3.8 Chloride 95 L Carbon Dioxide 29 Anion Gap 10 BUN 16 Creatinine 1.10 Estim Creat Clear Calc 61 Estimated GFR > 60 Glucose 143 H Calcium 8.5 Magnesium Total Bilirubin 0.4 AST 36 ALT 14 Alkaline Phosphatase 179 H Total Protein 7.0 Albumin 3.7 TSH (Reflex) 7.840 H Free T4 0.90 Total T3 C. difficile (PCR) 04/12/22 04/12/22 06:00 06:00 WBC RBC Hgb Hct MCV MCH MCHC RDW Plt Count MPV % Immature Plt Fraction Sodium Potassium Chloride Carbon Dioxide Anion Gap BUN Creatinine Estim Creat Clear Calc Estimated GFR Glucose Calcium Magnesium 1.7 Total Bilirubin AST ALT Alkaline Phosphatase Total Protein Albumin TSH (Reflex) Free T4 Total T3 1.35 C. difficile (PCR) Post-procedural complaints: none Patient Feedback: Patient satisfied with anesthetic care.
--- NOTE | 2022-04-16 09:47 | PC.NURSE ---
Stool cx is negative. Giardia and Cryptospordium are all negative. Dr. Aida hawthorne.
--- NOTE | 2022-04-16 13:21 | PC.NURSE ---
Completed PA for Victor Hugo this AM. Received denial at 1300. Spoke with Dr[address] Parra and alternative medication ordered. Spoke with patient. Patient is agreeable to take alternative medication. Called Vancomycin 250 mg po every 6 hours for 9 days into [facility].
== END 2022-04-12 18:30 | disposition home or self-care (01) ==
LOC: ANHED 04-11 00:12 → ANH2MED 04-11 01:07
PROVIDERS: Emergency Medicine; Internal Medicine Gastroenterology; Physician Assistant; Admitting Provider Internal Medicine; Emergency Provider Emergency Medicine; Visit Provider Internal Medicine
PROC: 0DJ08ZZ Inspection of Upper Intestinal Tract, Via Natural or Artificial Opening Endoscopic (ICD-10-PCS; CPT 43235; principal; 2022-04-11 15:00)
DX: K92.0 Hematemesis (principal); A04.72 Enterocolitis due to Clostridium difficile, not specified as recurrent; R55 Syncope and collapse; I85.00 Esophageal varices without bleeding; K31.89 Other diseases of stomach and duodenum; K74.60 Unspecified cirrhosis of liver; R18.8 Other ascites; R10.9 Unspecified abdominal pain; I11.0 Hypertensive heart disease with heart failure; I50.30 Unspecified diastolic (congestive) heart failure; Z20.822 Contact with and (suspected) exposure to COVID-19; D61.818 Other pancytopenia; K29.70 Gastritis, unspecified, without bleeding; R16.1 Splenomegaly, not elsewhere classified; R00.0 Tachycardia, unspecified; R94.31 Abnormal electrocardiogram [ECG] [EKG]; D64.9 Anemia, unspecified; I31.39 Other pericardial effusion (noninflammatory); N20.0 Calculus of kidney; D69.6 Thrombocytopenia, unspecified; R74.8 Abnormal levels of other serum enzymes; D72.819 Decreased white blood cell count, unspecified; K21.9 Gastro-esophageal reflux disease without esophagitis; R94.4 Abnormal results of kidney function studies; Z90.49 Acquired absence of other specified parts of digestive tract; E11.9 Type 2 diabetes mellitus without complications; N40.0 Benign prostatic hyperplasia without lower urinary tract symptoms; R09.89 Other specified symptoms and signs involving the circulatory and respiratory systems; Z85.6 Personal history of leukemia; Z87.891 Personal history of nicotine dependence; Z86.73 Personal history of transient ischemic attack (TIA), and cerebral infarction without residual deficits; Z79.1 Long term (current) use of non-steroidal anti-inflammatories (NSAID); Z79.899 Other long term (current) drug therapy; Z82.49 Family history of ischemic heart disease and other diseases of the circulatory system; Z80.3 Family history of malignant neoplasm of breast
CPT/HCPCS: 43235; 36415; 70450; 71046; 74177; 80053; 80307; 81001; 82140; 82948; 83690; 83735; 83880; 84439; 84443; 84480; 85014; 85018; 85025; 85027; 85055; 85610; 85730; 86850; 86860; 86870; 86880; 86900; 86901; 86902; 86922; 86971; 86972; 87045; 87269; 87272; 87427; 87493; 87502; 93005; 93308; 96361; 96365; 96366; 96374; 96375; 96376; 99285; A9270; C9113; G0378; G0379; J0696; J1170; J2270; J2354; J2405; J2704; J7120; Q9967; U0003; U0005

== ENCOUNTER 2022-05-02 09:46 | Observation (INO) | payer OTHER, SELFPAY ==
[2022-05-02] VITALS (29 sets, daily range): BP systolic 162–179; BP diastolic 87–112; PULSE 86–104; RESP 16–25; TEMP 36.4–36.6; O2SAT 97–100; BMI 27.4
--- NOTE | ~2022-05-02 | CT_ITS ---
EXAMINATION: CT abdomen pelvis w con DATE: 05/02/2022 10:48 INDICATION: Increased abdominal pain. Cirrhosis, alcoholism. TECHNIQUE: Computed tomography (CT) of the abdomen and pelvis was performed with 100 CC Omnipaque 350 intravenous contrast. Automated exposure control and iterative reconstruction technique were employe d. Exam dose: 783.51 mGy-cm total exam DLP. COMPARISON: 04/10/2022 CT abdomen pelvis FINDINGS: There is mild atelectasis at the lung bases. Moderately large pericardial effusion, mildly increased since 04/10/2022. Cardiomegaly. There is surface nodularity of the liver consistent with clinical diagnosis of cirrhosis. There is sp lenomegaly. There is mild to moderate abdominal and pelvic ascites. Status post cholecystectomy. No bile duct or pancreatic duct dilatation. No hepatic, pancreatic, splenic, and adrenal or renal space-occupying mass lesion is detected. There is moderately increased density of the peripancreatic fat; pancreatitis is not excluded. Recomm end clinical correlation. Approximately 2.5 mm nonobstructing lower pole left renal calculus. No ureteral calculus or hydrouret eronephrosis. Prostate calcifications and mild prostatomegaly. The urinary bladder is unremarkable. There is normal caliber of the abdominal aorta. No intraperitoneal or retroperitoneal or pelvic mass lesion or adenopathy is noted. Status post appendectomy. No bowel obstruction or intraperitoneal free air. Fluid containing umbilical hernia. Chronic T10, T11 and T12 fracture deformities. IMPRESSION: Moderately large pericardial effusion Cardiomegaly Cirrhosis, splenomegaly and ascites Mild peripancreatic increased fat density: Pancreatic carcinoma is not excluded. Recommend clinical c orrelation Status post cholecystectomy Small nonobstructing lower pole left renal calculus Status post appendectomy Reviewed, dictated and finalized at [facility]. Reviewed, dictated and finalized at location [facility]. [employer] SALES CONSULTANT IMPRESSION: Moderately large pericardial effusion Cardiomegaly Cirrhosis, splenomegaly and ascites Mild peripancreatic increased fat density: Pancreatic carcinoma is not excluded . Recommend clinical correlation Status post cholecystectomy Small nonobstructing lower pole left renal calculus Status post appendectomy
--- NOTE | ~2022-05-02 | US_ITS ---
EXAMINATION: US paracentesis abd w/image DATE: 05/02/2022 13:58 INDICATION: Ascites. TECHNIQUE: The procedure and its risks, benefits, and alternatives were discussed with the patient. P otential risks discussed included bleeding and infection. The skin was prepped and draped in sterile fashion. 1% lidocaine was used for local anesthesia. Under ultrasound guidance, a 5 Fr catheter with trochar was advanced into the ascites in the right lower quadrant. Fluid was aspirated. The catheter was removed, and a dressing was applied. There were no immediate complications. FINDINGS: Ultrasound images demonstrate ascites and the catheter within the fluid. IMPRESSION: 1. Successful ultrasound-guided paracentesis yielding 1200 mL of clear, yellow fluid. Reviewed, dictated and finalized at location [facility]. ONER CLASSIFICATION INTERVIEWER
--- NOTE | ~2022-05-02 | MR_ITS ---
EXAMINATION: MR MRCP wo/w con/w 3D wo ind DATE: 05/03/2022 08:39 INDICATION: Abdominal pain. TECHNIQUE: Magnetic resonance imaging (MRI) of the abdomen was performed without and with 15 mL Multi bon intravenous contrast. Sequences included coronal T2-weighted SS-FSE, coronal T2-weighted FS SS- FSE, coronal T2-weighted FS FIESTA, axial T2-weighted FS FIESTA, axial T2-weighted FIESTA, sagittal T 2-weighted SS-FSE, axial T1-weighted dual-echo FSPGR, axial T2-weighted SS-FSE, axial T1-weighted LAV A, axial T2-weighted STIR FSE. Thick-slab T2-weighted FRFSE-XL images were obtained for magnetic reso nance cholangiopancreatography (MRCP). Rotating maximum intensity projection 3-D reconstructions of t he volumetric data were created by the technologist. Postcontrast sequences included a time course of axial T1-weighted LAVA. COMPARISON: None. FINDINGS: ABDOMEN MRI: Cardiomegaly. Moderate pericardial effusion. No pleural effusion. Nodular cirrhotic liver. Dilation o f the main portal vein and splenomegaly measuring 18.5 cm craniocaudally consistent with associated p ortal venous hypertension. There are also portosystemic collaterals with dilated coronary vein and es ophageal varices. Cholecystectomy clips at the gallbladder fossa. Pancreas, bilateral adrenal glands and kidneys are normal. Moderate amount of ascites scattered throughout the abdomen. There is also ex tension of ascites into a small umbilical hernia. Visualized portion of the bowels are normal. No obs truction. No pathologically enlarged abdominal lymphadenopathy. Chronic compression fractures at T10 and T11 and Schmorl's node at T12. Bones are otherwise unremarkable with normal marrow signal through out. ABDOMEN MRCP: No intra or extra hepatic biliary ductal dilation. The common bile duct measures 3 to 4 mm maximal di ameter which is well within normal limits. No intraluminal filling defects to suggest choledocholithi asis. IMPRESSION: 1. Cirrhosis. 2. Dilation of the main portal vein along with splenomegaly and portosystemic collaterals, all consis tent with portal venous hypertension. 3. Moderate amount of ascites likely related to liver disease. 4. Cardiomegaly with moderate-sized pericardial effusion. Reviewed, dictated and finalized at location A. AL REPRESENTATIVE IMPRESSION: 1. Cirrhosis. 2. Dilation of the main portal vein along with splenomegaly and portosystemic c ollaterals, all consistent with portal venous hypertension. 3. Moderate amount of ascites likely related to liver disease. 4. Cardiomegaly with moderate-sized pericardial effusion.
--- NOTE | 2022-05-02 09:55 | ECG_ITS ---
Measurements Intervals [place] Rate: 90 P: 58 NV: 172 QRS: 53 QRSD: 89 T: 66 QT: 394 QTc: 482 Interpretive Statements SINUS RHYTHM POSSIBLE LEFT ATRIAL ENLARGEMENT DELAYED PRECORDIAL R/S TRANSITION BORDERLINE ST-T WAVE ABNORMALITY- INF/LAT LEADS BASELINE WANDER- I, III BORDERLINE ECG COMPARED TO ECG 04/10/2022 23:57:44 SINUS RHYTHM NOW PRESENT Electronically Signed On 05-02-2022 12:29:30 COMPATIBILITY TEST ENGINEER by Og Brown D.O.
[2022-05-02 10:12] LABS: Basophils Percent Auto 0.5 % (0.2-1.2); Eosinophils Absolute Auto 0.1 K/mm3 (0-0.3); Eosinophils Percent Auto 1.3 % (0-4.4); Hematocrit 33.1 % (42.0-52.0); Hemoglobin 9.2 g/dL (14.0-18.0); Immature Granulocyte Absolute 0.02 K/mm3 (0.00-0.031); Immature Granulocyte Percent A 0.5 % (0-0.5); Immature Platelet Fraction Pct 9.1 % (0.9-11.2); Lymphocytes Absolute Auto 0.52 K/mm3 (0.9-3.2); Lymphocytes Percent Auto 13.1 % (18.3-44.2); Mean Corpuscular HGB Conc 27.8 g/dl (32-36); Mean Corpuscular Hemoglobin 22.9 pg (26-34); Mean Corpuscular Volume 82.3 fl (80-100); Monocytes Absolute Auto 0.5 K/mm3 (0.1-0.6); Monocytes Percent Auto 11.9 % (2.6-8.5); Neutrophils Absolute Auto 2.9 K/mm3 (1.3-6.7); Neutrophils Percent Auto 72.7 % (45.5-73.1); Platelet Count Result 90 k/mm3 (150-375); Red Blood Count 4.02 M/mm3 (4.6-6.20)
[2022-05-02 10:21] LABS: Alanine Aminotransferase 13 U/L (6-50); Alkaline Phosphatase 193 U/L (38-126); Anion Gap 8 mmol/L (8-16); Aspartate Amino Transferase 32 U/L (17-59); Bilirubin,Total 0.9 mg/dL (0.2-1.3); Blood Urea Nitrogen 12 mg/dL (9-20); Calcium 8.8 mg/dL (8.4-10.2); Carbon Dioxide 27 mmol/L (22-30); Chloride 99 mmol/L (98-107); Estimated CRCL calculation 111 ml/min; Estimated Glomerular Filt Rate > 60; Glucose 181 mg/dL (65-110); Sodium 134 mmol/L (137-145)
[2022-05-02 10:33] LABS: Platelet Estimate Decreased (Adequate)
[2022-05-02 10:34] LABS: Hypochromasia 2+ (NORMAL); Large Platelets Present
[2022-05-02 10:35] LABS: Anisocytosis 2+ (NORMAL); Tear Drop Cells 1+ (NORMAL)
[2022-05-02 10:36] LABS: Schistocytes None Seen (NORMAL)
[2022-05-02 11:16] LABS: INR 1.1
[2022-05-02 11:17] LABS: Partial Thromboplastin Time 32.4 SECONDS (22.3-36.8)
[2022-05-02] MEDS: HYDROmorphone HCL INJ (*CRX) 1 MG/ML SYR IV PUSH ×3 (11:43→21:21)
--- NOTE | 2022-05-02 12:37 | ED.ABDPAIN ---
HPI - Abdominal Pain General Chief Complaint: Abdominal Pain Stated Complaint: abd pain, recent c. diff Time Seen by Provider: 05/02/22 09:48 History of Present Illness HPI narrative: 52-year-old male with history of type 2 diabetes, cirrhosis, ascites, CHF and recent C. difficile infection presented the emergency department for evaluation of persistent diarrhea and worsening abdominal pain. Patient states he has to have paracentesis proximately every 4 weeks. Patient's last paracentesis was done here on 03/29. Patient does have follow-up with Dr. Guerin. Patient was just admitted to the hospital approximately 2 weeks ago for C. difficile. Patient has been taking oral Vanco and just completed it. Patient states he is still having persistent diarrhea. Patient states he is now having increased pain at his rectum. Related Data Home Medications Medication Instructions Recorded Confirmed acetaminophen 325 mg capsule 650 mg PO PRN PRN Pain 12/09/21 04/11/22 (Tylenol) spironolactone 50 mg tablet 25 mg PO QID 12/09/21 04/11/22 (Aldactone) potassium chloride 20 mEq 20 meq PO DAILY 04/11/22 04/11/22 tablet,extended release(part/cryst) Allergies Allergy/AdvReac Type Severity Reaction Status Date / Time No Known Allergies Allergy Verified 04/11/22 09:39 Review of Systems Review of Systems: CONSTITUTIONAL: Denies fever, chills, or sweats. EYES: Denies visual changes, redness, or discharge. ENT: Denies rhinorrhea, congestion, sore throat, or otalgia. CARDIOVASCULAR: Denies chest pain, palpitations, or edema. RESPIRATORY: Denies cough or dyspnea. GASTROINTESTINAL: Abdominal pain, see HPI GENITOURINARY: Denies dysuria or hematuria. SKIN: Denies rash or itching. MUSCULOSKELETAL: Denies back pain, joint pain, or myalgia. NEUROLOGIC: Denies headache, numbness, or weakness. PSYCHIATRIC: Denies anxiety or depression. [facility] [place] Past Medical History Medical History Arthritis C. difficile colitis Cerebrovascular accident (2004) Chronic anemia Cirrhosis of liver with ascites Diastolic congestive heart failure Esophageal varices Gastric ulcer Gastroesophageal reflux disease Hypertension Kidney stone Leukemia In childhood. Pericardial effusion Noted on CT and echocardiogram in August 2020. No evidence of tamponade. Portal hypertensive gastropathy Noted on endoscopy on 03/23/[address] Duran. Prostate cancer Status post radiation seed implantation. Smoker Spontaneous bacterial peritonitis (04/2020) Tobacco use Type 2 diabetes mellitus Surgical History Surgical History H/O cystoscopy History of appendectomy History of cholecystectomy History of inguinal hernia repair History of lithotripsy History of repair of right rotator cuff Family History Family History Mother Family history of malignant neoplasm of breast in first degree relative Breast cancer Father Acute myocardial infarction Hypertension Heart disease Other Diabetes mellitus Maternal Unkle Other Family history of malignant neoplasm Social History Social History Social History: The patient has 4 children and is disabled. The youngest child is turning 8 years old. His has metastatic breast cancer. He is a former smoker. Surrogate decision maker: Myra Brunilda () or 1st Marnie Washington (aunt). Code status: Full code Smoking packs per day: 0.5 Smoking cigarettes per day: 10.0 Years smoked: 50 Smoking pack-years: 25.00 Smoking status: Former smoker Tobacco type: cigarettes Second hand tobacco smoke exposure: No Alcohol intake: former Alcohol use details: Former beer drinker. Substance use: never Substance use type: does not use Lack of Transportation: No Lack of Food: Never Tr
--- NOTE | 2022-05-02 14:33 | PC.NURSE ---
Radiology at bedside to obtain cxr.
--- NOTE | 2022-05-02 14:47 | PM.IMHP ---
H&P: HPI History of Present Illness Date/Time: 05/02/22 14:47 Chief Complaint: Abdominal pain and diarrhea with recent C diff Narrative: This is a 52-year-old male patient who has a history of cirrhosis of the liver with ascites. The patient was discharged from this facility on 04/12/2022 with C diff, esophageal varices without bleeding and ascites. The patient was initially started on Dificid but his insurance would not cover it so he was changed to oral vancomycin. The patient stated that he has completed his oral vancomycin and now the diarrhea has returned. His H&H today is 9.2 and 33.1. Platelets are only 90. Sodium is 134. His glucose is 181. His TSH is 7.840. T4 and T3 are normal. The patient had a CT of the abdomen and pelvis stating that was read as the following ?Moderately large pericardial effusion Cardiomegaly Cirrhosis, splenomegaly and ascites Mild peripancreatic increased fat density: Pancreatic carcinoma is not excluded. Recommend clinical correlation Status post cholecystectomy Small nonobstructing lower pole left renal calculus Status post appendectomy The patient had a successful ultrasound-guided paracentesis yielding 1200 mL of clear yellow fluid today.(his last paracentesis was on 03/29/2022 that yielded 2200 mL of yellow fluid.) The patient was given Dilaudid x2 in the emergency room. I spoke with the Infectious Disease pharmacist who recommended that we hold off on Flagyl and continue with Dificid. The pharmacist stated that deficit is definitely an alternative as the patient had already been on vancomycin. GI has been consulted for pancreatic increased stranding. The patient is being admitted to observation status on the date of service of 05/02/2022. Review of Systems Review of Systems: See HPI All systems reviewed & are unremarkable except as noted in HPI and below Constitutional: Constitutional: Reports as per HPI and Reports no additional constitutional complaints Eyes: Eyes: Reports as per HPI and Reports no additional eye complaints ENT: Reports system reviewed and no additional complaints, except as documented and Reports Normal hearing present Cardiovascular: Cardiovascular: Reports no additional cardiovascular complaints Respiratory: Respiratory: Reports no additional respiratory complaints and Reports no additional respiratory complaints Gastrointestinal: Gastrointestinal: Reports as per HPI and Reports no additional gastrointestinal complaints Musculoskeletal: Musculoskeletal: Reports no additional musculoskeletal complaints Integumentary/Breasts: Skin/Breast: Reports system reviewed and no additional complaints, except as docu and Reports as per HPI Neurologic: Reports system reviewed and no additional complaints, except as documented, Reports as per HPI and Reports Normal hearing present Psychiatric: Psychiatric: Reports no additional psychiatric complaints and Reports as per HPI Endocrine: Endocrine: Reports no additional endocrine complaints Hematologic/Lymphatic: Hematologic/Lymphatic: Reports no additional hematologic/lymphatic complaints Allergic/Immunologic: Allergic/Immunologic: Reports no additional allergic/immunologic complaints [facility] Past Medical History Medical History (Updated 05/02/22 @ 16:24 by Nava Roberts NP) Abdominal pain Acute GI bleeding Anemia Arthritis Ascites C. difficile colitis C. difficile diarrhea Cerebrovascular accident (2004) Chest pain Chronic anemia Cirrhosis Cirrhosis of liver with ascites Diarrhea Diastolic congestive heart failure Esophageal varices Gastric ulcer Gastroesophageal reflux disease GI bleed Hematemesis Hyperglycemia Hypertension Kidney stone Leukemia In childhood. Pericardial effusion Noted on CT and echocardiogram in August 2020. No evidence of tamponade. Pericardial effusion Portal hypertensive gastropathy Noted on endoscopy on 03/23/[address] Duran. Prostate cancer Status post radiation seed
--- NOTE | 2022-05-02 15:04 | IDPHARM ---
Subjective Pharmacy was consulted by Bernie Roberts regarding infectious diseases for Matt Worley II. Matt Worley II is a 52 year old M with concerns regarding recurrence of CDI. Background The patient is currently receiving Fidaxomicin PO and Metronidazole IV. The patient's PMH includes recently failing a course of PO vancomycin as his insurance had refused to cover the fidaxomicin per the provider. The patient presents with diarrhea. WBC was 4 and SCr 0.7. Assessment/Recommendation/Discussion Spoke with provider regarding this recurrence of CDI - it is quite common for insurance providers to not cover the PO difficid on discharge at this time due to cost. Will trial while inpatient for now given diarrhea and if to be discharged on it highly highly recommend confirming the patient is able to obtain this medication. No signs of fulminant CDI confirmed by provider. Discontinue metronidazole IV. Of note, Fidaxomicin currently lacks data for recommendation for use in fulminant CDI. Thank you for the interesting consult. Gerson Valdez, PharmD Infectious Disease/Antimicrobial Stewardship Pharmacist 05/02/22; [id number]
[2022-05-02 15:26] LABS: Lipase 54 U/L (23-300)
--- NOTE | 2022-05-02 15:43 | ADMGEN ---
This patient, Matt Worley II, was admitted to Medical Room 250-01. Patient/family oriented to hospital policies and general routines including ID bracelet, bed and alarms, visiting hours, pain management, procedures, bathroom and other care routines, personal items, smoking policy, room service/diet, and visiting hours. Information on how to activate the Rapid Response Team has been discussed. Patient/Family are encouraged to report perceived risks to care and to ask questions if they do not understand what they are told or what they should do.
[2022-05-02] MEDS: metroNIDAZOLE 500 MG/ISO 100ML 500 MG/100 ML BAG 100 MG IVPB (15:58)
[2022-05-02] MEDS: FIDAXOMICIN 200 MG TABLET PO (21:21)
[2022-05-02] MEDS: PANTOPRAZOLE SODIUM IV 40 MG VIAL IV PUSH (21:21)
[2022-05-02] MEDS: oxyCODONE/ACETAMINOPHEN (*CRX) 5-325 MG TABLET 1 TABLET PO (23:50)
[2022-05-03] MEDS: HYDROmorphone HCL INJ (*CRX) 1 MG/ML SYR IV PUSH ×5 (01:50→20:07)
[2022-05-03 02:30] LABS: Appearance Urine Clear (Clear); Bilirubin Urine 1+ (Negative); Blood Urine Negative (Negative); Color Urine Yellow (Yellow); Glucose Urine UA Negative (Negative); Ketones Urine Trace mg/dL (Negative); Leukocyte Esterase Ur Negative LEU/UL (Negative); Nitrate Urine Negative (Negative); Protein Urine 1+ mg/dL (Negative); Urobilinogen Urine 0.2 mg/dL (<2.0); pH Urine 5.5 (5.0-9.0)
[2022-05-03 03:09] LABS: Toxigenic C. Diff NEGATIVE (NEGATIVE)
[2022-05-03 03:46] LABS: Calcium Oxalate Crystals Urine Present /hpf; Mucus Urine Rare /lpf; RBC Urine 0-2 /hpf (0-2); Squamous Epithelial Cell Urine Rare /hpf (Few); WBC Urine 0-3 /hpf
[2022-05-03 03:47] LABS: Add Urine Microscopic? YES
[2022-05-03] MEDS: oxyCODONE/ACETAMINOPHEN (*CRX) 5-325 MG TABLET 1 TABLET PO ×4 (04:25→22:24)
[2022-05-03 04:46] LABS: IFOB Positive Control Positive; Immunochemical Fecal Occult Bl Negative (N)
[2022-05-03 05:53] LABS: Basophils Percent Auto 0.6 % (0.2-1.2); Eosinophils Absolute Auto 0.1 K/mm3 (0-0.3); Hematocrit 31.8 % (42.0-52.0); Hemoglobin 8.8 g/dL (14.0-18.0); Immature Granulocyte Absolute 0.01 K/mm3 (0.00-0.031); Immature Granulocyte Percent A 0.3 % (0-0.5); Immature Platelet Fraction Pct 9.5 % (0.9-11.2); Lymphocytes Absolute Auto 0.44 K/mm3 (0.9-3.2); Lymphocytes Percent Auto 13.1 % (18.3-44.2); Mean Corpuscular HGB Conc 27.7 g/dl (32-36); Mean Corpuscular Hemoglobin 22.8 pg (26-34); Mean Corpuscular Volume 82.4 fl (80-100); Mean Platelet Volume 10.7 fl (7.4-10.4); Monocytes Absolute Auto 0.6 K/mm3 (0.1-0.6); Neutrophils Absolute Auto 2.2 K/mm3 (1.3-6.7); Platelet Count Result 81 k/mm3 (150-375); Red Blood Count 3.86 M/mm3 (4.6-6.20); White Blood Count 3.4 K/mm3 (4.5-10.0)
[2022-05-03 06:00] VITALS: BP 152/84; PULSE 89; RESP 20; TEMP 36.4; O2SAT 99
[2022-05-03 06:03] LABS: Lactic Acid Reflex 0.7 mmol/L (0.7-2.0)
[2022-05-03 06:03] LABS: Alanine Aminotransferase 11 U/L (6-50); Albumin Level 3.6 g/dL (3.5-5.1); Alkaline Phosphatase 157 U/L (38-126); Anion Gap 9 mmol/L (8-16); Aspartate Amino Transferase 32 U/L (17-59); Bilirubin,Total 0.9 mg/dL (0.2-1.3); Blood Urea Nitrogen 11 mg/dL (9-20); Calcium 8.6 mg/dL (8.4-10.2); Carbon Dioxide 28 mmol/L (22-30); Chloride 98 mmol/L (98-107); Estimated CRCL calculation 86 ml/min; Estimated Glomerular Filt Rate > 60; Glucose 128 mg/dL (65-110); Magnesium 1.8 mg/dL (1.6-2.3); Potassium 3.8 mmol/L (3.4-5.0); Sodium 135 mmol/L (137-145)
[2022-05-03 07:28] LABS: Platelet Estimate Decreased (Adequate)
[2022-05-03 07:30] LABS: Anisocytosis 2+ (NORMAL); Hypochromasia 2+ (NORMAL); Ovalocytes 1+ (NORMAL); Target Cells 1+ (NORMAL)
[2022-05-03 08:09] LABS: Schistocytes None Seen (NORMAL)
[2022-05-03 08:46] LABS: Glucose Point of Care 161 mg/dl (65-105)
--- NOTE | 2022-05-03 09:46 | PM.IMPN ---
Progress Note: A&P Assessment and Plan (1) Abdominal ascites: Qualifiers: Ascites type: other type Qualified Code(s): R18.8 - Other ascites Code(s): R18.8 - Other ascites Status: Acute Assessment and Plan: underwent paracentesis 05/02/2022: 1200 cc of clear yellow fluid. the patient still continues to have abdominal pain and is distended. continue with patient's diuretics from home. (2) C. difficile colitis: Code(s): A04.72 - Enterocolitis due to Clostridium difficile, not specified as recurrent Status: Acute Assessment and Plan: Diagnosed with C diff March 2022. Was treated with Dificid however due to coverage it was switched to oral vancomycin and completed the course. Diarrhea restarted back after he finished vancomycin Restarted Dificid (3) Type 2 diabetes mellitus: Qualifiers: Diabetes mellitus complication status: without complication Diabetes mellitus intermediate accountant insulin use: without intermediate accountant use Qualified Code(s): E11.9 - Type 2 diabetes mellitus without complications Code(s): E11.9 - Type 2 diabetes mellitus without complications Status: Acute Assessment and Plan: -Accu-Chek AC and HS. -sliding scale insulin. -hypoglycemic protocol. (4) CHF (congestive heart failure): Code(s): I50.9 - Heart failure, unspecified Status: Acute Assessment and Plan: -continue with his Coreg, Lasix and Aldactone (5) Chronic anemia: Code(s): D64.9 - Anemia, unspecified Status: Acute Assessment and Plan: The patient has a history of having esophageal varices but does not have any hematemesis at this time. His H&H is at his baseline. Will continue to monitor. EGD on 04/11/2022: Nonbleeding esophageal varices and gastritis, moderate portal hypertensive change (6) Cirrhosis of liver with ascites: Qualifiers: Hepatic cirrhosis type: unspecified hepatic cirrhosis Qualified Code(s): K74.60 - Unspecified cirrhosis of liver; R18.8 - Other ascites Code(s): K74.60 - Unspecified cirrhosis of liver; R18.8 - Other ascites Status: Chronic Assessment and Plan: known diagnosis but unclear etiology. Suspected autoimmune liver disease however has not been able to follow-up with bobbin inspector at [facility]. GI consulted mitochondrial antibody negative myeloperoxidase and proteinase 3- MEL positive TTG negative IgG level normal I do not see MEL comprehensive panel done will order that (7) Esophageal varices: Code(s): I85.00 - Esophageal varices without bleeding Status: Acute Assessment and Plan: -continue with pantoprazole. -patient has no active bleeding at this time. History of banding in February 2022 (8) Gastroesophageal reflux disease: Qualifiers: Esophagitis presence: without esophagitis Qualified Code(s): K21.9 - Gastro-esophageal reflux disease without esophagitis Code(s): K21.9 - Gastro-esophageal reflux disease without esophagitis Status: Acute Assessment and Plan: -continue with pantoprazole (9) Pericardial effusion: Code(s): I31.3 - Pericardial effusion (noninflammatory) Status: Acute Assessment and Plan: -patient has been evaluated by Cardiology in the past. This is a moderately large pericardial effusion. -last echo 04/11/2022 1. Left ventricular chamber dimension is normal. ? 2. Left ventricular systolic function is lower limits of normal, estimated at 50-55%. ? 3. There is mildly increased left ventricular wall thickness. ? 4. There is moderate anterior and larger posterior pericardial effusion. Mild invagination of the right atrial free wall suggestive of increased intrapericardial pressures without other echocardiographic changes consistent with tamponade physiology. ? 5. Normal inferior vena cava with >50% collapse upon inspiration consistent with normal right atrial pressure, 5 mmHg. Plan
[2022-05-03 09:50] VITALS: PULSE 91; RESP 18; O2SAT 99
[2022-05-03] MEDS: DICYCLOMINE HCL 10 MG CAPSULE 20 MG PO (10:10)
[2022-05-03] MEDS: PANTOPRAZOLE SODIUM IV 40 MG VIAL IV PUSH (10:10)
[2022-05-03] MEDS: FIDAXOMICIN 200 MG TABLET PO ×2 (10:11→20:18)
[2022-05-03 12:18] LABS: Glucose Point of Care 154 mg/dl (65-105)
--- NOTE | 2022-05-03 14:00 | WPDGICN ---
Assessment and Plan Assessment and plan (1) Abdominal pain: Code(s): R10.9 - Unspecified abdominal pain Status: Acute Assessment and Plan: he has chronic pain and now he is comfortable ok to advance diet (2) Pancreatic abnormality: Code(s): Q45.3 - Other congenital malformations of pancreas and pancreatic duct Status: Acute Assessment and Plan: mrpc was ordered, noted inflammation in CT scan but lipase and transaminases normal (3) Cirrhosis of liver with ascites: Qualifiers: Hepatic cirrhosis type: unspecified hepatic cirrhosis Qualified Code(s): K74.60 - Unspecified cirrhosis of liver; R18.8 - Other ascites Code(s): K74.60 - Unspecified cirrhosis of liver; R18.8 - Other ascites Status: Chronic Assessment and Plan: s/p paracentesis, feeling better with less distension (4) C. difficile colitis: Code(s): A04.72 - Enterocolitis due to Clostridium difficile, not specified as recurrent Status: Acute Assessment and Plan: repeat stool negative (5) Esophageal varices: Code(s): I85.00 - Esophageal varices without bleeding Status: Acute Assessment and Plan: last egd small size, did not require more banding and denies bleeding (6) Thrombocytopenia: Code(s): D69.6 - Thrombocytopenia, unspecified Status: Acute GI Consult Note Consult date/time: 05/03/22 14:00 Reason for consult: abdominal pain, cirrhosis, recent C diff HPI: Matt Worley II is a 52 year old male who is very well known to our service and seeing Dr Guerin because cirrhosis that has been complicated in the past with ascites and variceal bleeding that required banding. Recent hospitalization with C diff treated and he is back because more abdominal pain (he has chronic abdominal pain though) and still with loose stool. C diff negative this time. He underwent CT scan that showed moderately large pericardial effusion, Cardiomegaly, Cirrhosis, splenomegaly and ascites, Mild peripancreatic increased fat density: Pancreatic carcinoma is not excluded. Status post cholecystectomy and just completed MRCP. He is tolerating liquid diet and would like to have regular diet. Denies melena or bleeding. Feeling better. Lipase 54, liver enzymes normal with Alk ph 150 Review of Systems Constitutional: Constitutional: Denies chills Eyes: Eyes: Denies blurry vision ENT: Reports Normal hearing present Cardiovascular: Cardiovascular: Denies chest pain Respiratory: Respiratory: Denies chest congestion Gastrointestinal: Gastrointestinal: Reports abdominal pain Genitourinary: Genitourinary: Denies hematuria Musculoskeletal: Musculoskeletal: Denies back pain Integumentary/Breasts: Skin/Breast: Denies rash Neurologic: Denies Abnormal speech present Psychiatric: Psychiatric: Denies behavioral changes [facility] Past Medical History Medical History (Updated 05/03/22 @ 14:06 by Shon Duran MD) Abdominal pain Acute GI bleeding Anemia Arthritis Ascites C. difficile colitis C. difficile diarrhea Cerebrovascular accident (2004) Chest pain Chronic anemia Cirrhosis Cirrhosis of liver with ascites Diarrhea Diastolic congestive heart failure Esophageal varices Gastric ulcer Gastroesophageal reflux disease GI bleed Hematemesis Hyperglycemia Hypertension Kidney stone Leukemia In childhood. Pancreatic abnormality Pericardial effusion Noted on CT and echocardiogram in August 2020. No evidence of tamponade. Pericardial effusion Portal hypertensive gastropathy Noted on endoscopy on 03/23/[address] Duran. Prostate cancer Status post radiation seed implantation. Smoker Spontaneous bacterial peritonitis (04/2020) Syncope and collapse Tobacco dependence Tobacco use Type 2 diabetes mellitus Upper GI bleed Surgical History Surgical History H/O cystoscopy History of appen
[2022-05-03 14:05] VITALS: BP 156/89; PULSE 91; RESP 18; TEMP 36.4; O2SAT 99
[2022-05-03 17:26] LABS: Glucose Point of Care 114 mg/dl (65-105)
[2022-05-03] MEDS: SPIRONOLACTONE 25 MG TABLET PO (17:50)
[2022-05-03] MEDS: FUROSEMIDE 40 MG TABLET PO (17:50)
[2022-05-03 19:15] VITALS: BP 151/89; PULSE 87; RESP 18; TEMP 36.3; O2SAT 98
[2022-05-03 20:10] VITALS: PULSE 85
[2022-05-03] MEDS: carvediloL 12.5 MG TABLET PO (20:10)
[2022-05-03] MEDS: PANTOPRAZOLE 40 MG TABLET PO (20:12)
[2022-05-03 22:23] LABS: Glucose Point of Care 201 mg/dl (65-105)
[2022-05-04] MEDS: HYDROmorphone HCL INJ (*CRX) 1 MG/ML SYR IV PUSH ×2 (01:16→06:59)
[2022-05-04] MEDS: oxyCODONE/ACETAMINOPHEN (*CRX) 5-325 MG TABLET 1 TABLET PO ×3 (03:29→13:15)
[2022-05-04 04:51] LABS: Basophils Percent Auto 1.2 % (0.2-1.2); Eosinophils Absolute Auto 0.1 K/mm3 (0-0.3); Eosinophils Percent Auto 3.2 % (0-4.4); Hematocrit 29.1 % (42.0-52.0); Hemoglobin 8.1 g/dL (14.0-18.0); Lymphocytes Absolute Auto 0.64 K/mm3 (0.9-3.2); Lymphocytes Percent Auto 25.8 % (18.3-44.2); Mean Corpuscular HGB Conc 27.8 g/dl (32-36); Mean Corpuscular Hemoglobin 22.2 pg (26-34); Mean Corpuscular Volume 79.7 fl (80-100); Mean Platelet Volume 10.6 fl (7.4-10.4); Monocytes Absolute Auto 0.4 K/mm3 (0.1-0.6); Monocytes Percent Auto 15.3 % (2.6-8.5); Neutrophils Absolute Auto 1.4 K/mm3 (1.3-6.7); Neutrophils Percent Auto 54.5 % (45.5-73.1); Platelet Count Result 69 k/mm3 (150-375); Red Blood Count 3.65 M/mm3 (4.6-6.20); Red Cell Distribution Width 15.9 % (11.5-14.5); White Blood Count 2.5 K/mm3 (4.5-10.0)
[2022-05-04 05:04] LABS: Alanine Aminotransferase 10 U/L (6-50); Albumin Level 3.5 g/dL (3.5-5.1); Alkaline Phosphatase 142 U/L (38-126); Anion Gap 7 mmol/L (8-16); Aspartate Amino Transferase 25 U/L (17-59); Bilirubin,Total 0.6 mg/dL (0.2-1.3); Blood Urea Nitrogen 11 mg/dL (9-20); Calcium 8.3 mg/dL (8.4-10.2); Carbon Dioxide 25 mmol/L (22-30); Chloride 100 mmol/L (98-107); Estimated CRCL calculation 86 ml/min; Estimated Glomerular Filt Rate > 60; Glucose 124 mg/dL (65-110); Magnesium 1.8 mg/dL (1.6-2.3); Potassium 3.8 mmol/L (3.4-5.0); Sodium 132 mmol/L (137-145)
[2022-05-04 06:00] VITALS: BP 150/94; PULSE 92; RESP 20; TEMP 36.6; O2SAT 98
[2022-05-04 08:03] LABS: Glucose Point of Care 156 mg/dl (65-105)
--- NOTE | 2022-05-04 08:33 | WPDGIPROGNO ---
Progress Note: A&P Assessment and Plan (1) Abdominal pain: Code(s): R10.9 - Unspecified abdominal pain Status: Acute Assessment and Plan: chronic and probably near baseline now tolerating diet he can go home by GI standpoint and follow-up office with Dr Guerin MRCP reviewed, no major pancreatic abnormality, chronic findings of ascites/portal hypertension/pericardial effusion (2) Portal hypertension: Code(s): K76.6 - Portal hypertension Status: Acute Assessment and Plan: last egd no need of more banding denies gib (3) Cirrhosis of liver with ascites: Qualifiers: Hepatic cirrhosis type: unspecified hepatic cirrhosis Qualified Code(s): K74.60 - Unspecified cirrhosis of liver; R18.8 - Other ascites Code(s): K74.60 - Unspecified cirrhosis of liver; R18.8 - Other ascites Status: Chronic Assessment and Plan: s/p paracentesis yesterday (4) Thrombocytopenia: Code(s): D69.6 - Thrombocytopenia, unspecified Status: Acute (5) C. difficile colitis: Code(s): A04.72 - Enterocolitis due to Clostridium difficile, not specified as recurrent Status: Acute Assessment and Plan: treated and repeat C diff negative Subjective Date/time seen: 05/04/22 08:33 Interval history: less abdominal pain, tolerating diet, less diarrhea Review of Systems Review of Systems: All systems reviewed & are unremarkable except as noted in HPI and below Exam Const: General: comfortable and no acute distress HENMT: Face/Nose/Sinus: Normal nares present Eyes: General: appearance normal, both eyes and all related structures Neck: Neck: supple Resp: Auscultation: clear to auscultation bilaterally Cardio: Rate: regular rate GI: GI Palp: Yes Tenderness to palpation present (GI) (mild ttp, no rebound, + fluid wave) and No Guarding due to palpation present (GI) Auscultation: normal bowel sounds Skin: General skin exam: normal color Neuro: Speech: normal speech Motor exam (neuro): 5/5 motor strength present throughout Extrem: General: normal to inspection Psych: Affect: normal affect Objective Data Vital Signs Vital Signs: Vital Signs - 24 hr 05/03/22 14:05 05/03/22 09:50 05/03/22 19:15 Temperature 97.5 F L 97.3 F L Pulse Rate 91 91 87 Respiratory Rate 18 18 18 Blood Pressure 156/89 H 151/89 H Pulse Oximetry 99 99 98 Oxygen Delivery Room Air 05/03/22 20:10 05/03/22 20:00 05/04/22 06:00 Temperature 97.9 F Pulse Rate 85 92 Respiratory Rate 20 Blood Pressure 150/94 H Pulse Oximetry 98 Oxygen Delivery Room Air Intake/Output Intake/Output: Intake & Output 05/01/22 05/02/22 05/03/22 05/04/22 23:59 23:59 23:59 23:59 Intake Total 240 1560 600 Output Total 1200 Balance -960 1560 600 Meds/Results Medications: Active Medications Generic Name Dose Route Start Last Admin Trade Name Freq PRN Reason Stop Dose Admin Acetaminophen 650 mg 05/03/22 10:09 Acetaminophen 325 Mg Tablet PO PRN PRN Mild Pain (1-3) Carvedilol 12.5 mg 05/03/22 21:00 05/03/22 20:10 Carvedilol 12.5 Mg Tablet PO 12.5 mg Q12HR FORTINO Administration Dextrose 12.5 gm 05/02/22 15:57 Dextrose 50% 25 Gm/50 Ml Syringe IV PUSH PRN PRN Hypoglycemia Protocol Dicyclomine HCl 20 mg 05/02/22 16:26 05/03/22 10:10 Dicyclomine Hcl 10 Mg Capsule PO 20 mg QID PRN Administration Abdominal Cramping Empagliflozin 10 mg 05/04/22 09:00 Empagliflozin 10 Mg Tablet PO DAILY FORTINO Fidaxomicin 200 mg 05/02/22 21:00 05/03/22 20:18 Fidaxomicin 200 Mg Tablet PO 05/12/22 20:59 200 mg Q12HR FORTINO Administration Furosemide 40 mg 05/03/22 17:00 05/03/22 17:50 Furosemide 40 Mg Tablet PO 40 mg BID FORTINO Administration Glucagon 1 mg 05/02/22 15:57 Glucagon For Inj 1 Mg Vial IM PRN PRN Hypoglycemia Protocol Glucose 15 gm 05/02/22 15:57 Gluco
[2022-05-04 08:58] VITALS: PULSE 85
[2022-05-04] MEDS: FUROSEMIDE 40 MG TABLET PO (08:58)
[2022-05-04] MEDS: POTASSIUM CHLORIDE 20 MEQ TABLET.ER PO (08:58)
[2022-05-04] MEDS: EMPAGLIFLOZIN 10 MG TABLET PO (08:58)
[2022-05-04] MEDS: SPIRONOLACTONE 25 MG TABLET PO (08:58)
[2022-05-04] MEDS: FIDAXOMICIN 200 MG TABLET PO (08:58)
[2022-05-04] MEDS: carvediloL 12.5 MG TABLET PO (08:58)
[2022-05-04] MEDS: PANTOPRAZOLE 40 MG TABLET PO (08:58)
--- NOTE | 2022-05-04 12:26 | PM.DS ---
DS: Admitting Diagnosis Discharge Date 05/04/2022 Admitting Diagnosis abdominal pain/diarrhea DS: Discharge Diagnosis Discharge Diagnosis (1) Abdominal ascites: Qualifiers: Ascites type: other type Qualified Code(s): R18.8 - Other ascites Code(s): R18.8 - Other ascites Status: Acute (2) C. difficile colitis: Code(s): A04.72 - Enterocolitis due to Clostridium difficile, not specified as recurrent Status: Acute (3) Type 2 diabetes mellitus: Qualifiers: Diabetes mellitus exterminator insulin use: without custodial use Diabetes mellitus complication status: without complication Qualified Code(s): E11.9 - Type 2 diabetes mellitus without complications Code(s): E11.9 - Type 2 diabetes mellitus without complications Status: Acute (4) CHF (congestive heart failure): Code(s): I50.9 - Heart failure, unspecified Status: Acute (5) Chronic anemia: Code(s): D64.9 - Anemia, unspecified Status: Acute (6) Cirrhosis of liver with ascites: Qualifiers: Hepatic cirrhosis type: unspecified hepatic cirrhosis Qualified Code(s): K74.60 - Unspecified cirrhosis of liver; R18.8 - Other ascites Code(s): K74.60 - Unspecified cirrhosis of liver; R18.8 - Other ascites Status: Chronic (7) Esophageal varices: Code(s): I85.00 - Esophageal varices without bleeding Status: Acute (8) Gastroesophageal reflux disease: Qualifiers: Esophagitis presence: without esophagitis Qualified Code(s): K21.9 - Gastro-esophageal reflux disease without esophagitis Code(s): K21.9 - Gastro-esophageal reflux disease without esophagitis Status: Acute (9) Pericardial effusion: Code(s): I31.3 - Pericardial effusion (noninflammatory) Status: Acute DS: Summary Hospital Course Hospital Course: # Abdominal ascites: ?underwent paracentesis 05/02/2022: 1200 cc of clear yellow fluid.? abdominal pain could be related to developing ascites. Patient continued on diuretics. Ascitic fluid was not sent for diagnostic test cannot entirely rule out SBP however less likely as it was improved after the tap spontaneously without antibiotic therapy. # diarrhea with history recent C diff colitis: Diagnosed with C diff March 2022.? Was treated with Dificid however due to coverage it was switched to oral vancomycin and completed the course.? Diarrhea restarted back after he finished vancomycin Restarted Dificid Upon admission and C diff test was sent out which came back negative Unlikely to be related to C diff infection will stop Dificid at discharge. # type 2 diabetes mellitus: -Accu-Chek AC and HS.? -sliding scale insulin. -hypoglycemic protocol. # congestive heart failure: -continue with his Coreg, Lasix and Aldactone # chronic anemia / pancytopenia: The patient has a history of having esophageal varices but does not have any hematemesis at this time.? His H&H is at his baseline.? Will continue to monitor. EGD on 04/11/2022: Nonbleeding esophageal varices and gastritis, moderate portal hypertensive change # cirrhosis of liver with ascites: ?known diagnosis? but unclear etiology.? Suspected autoimmune liver disease however has not been able to follow-up with assisted living housekeeper at [facility]. GI consulted ?mitochondrial antibody negative myeloperoxidase and proteinase 3- MEL positive TTG negative IgG level normal I do not see MEL comprehensive panel done Which has been ordered during the hospital stay. These labs are pending at the time of discharge # esophageal varices: -continue with pantoprazole. -patient has no active bleeding at this time. History of banding in February 2022 # GERD: -continue with pantoprazole #Pericardial effusion: this is chronic. -patient has been evaluated by Cardiology in the past.? This is a moderately large pericardial effusion. -last echo 04/11/2022 1. Left ventricular chamber
[2022-05-04 12:32] LABS: Glucose Point of Care 190 mg/dl (65-105)
== END 2022-05-04 13:50 | disposition home or self-care (01) ==
LOC: ANHED 10:26 → ANH2MED 15:00
PROVIDERS: Nurse Practitioner; Admitting Provider Internal Medicine; Emergency Provider Emergency Medicine; PCP Hospitalist; Visit Provider Internal Medicine
DX: R18.8 Other ascites (principal); A04.72 Enterocolitis due to Clostridium difficile, not specified as recurrent; E11.9 Type 2 diabetes mellitus without complications; I11.0 Hypertensive heart disease with heart failure; I50.30 Unspecified diastolic (congestive) heart failure; D64.9 Anemia, unspecified; K74.60 Unspecified cirrhosis of liver; I85.00 Esophageal varices without bleeding; K21.9 Gastro-esophageal reflux disease without esophagitis; I31.39 Other pericardial effusion (noninflammatory); K76.6 Portal hypertension; Z90.49 Acquired absence of other specified parts of digestive tract; D69.6 Thrombocytopenia, unspecified; N20.0 Calculus of kidney; Q45.3 Other congenital malformations of pancreas and pancreatic duct; Z87.891 Personal history of nicotine dependence; Z79.1 Long term (current) use of non-steroidal anti-inflammatories (NSAID); Z79.899 Other long term (current) drug therapy
CPT/HCPCS: 36415; 49083; 74177; 74183; 76376; 80053; 81001; 82274; 82948; 83036; 83605; 83690; 83735; 85025; 85055; 85610; 85730; 87045; 87427; 87493; 93005; 96374; 96375; 96376; 99285; A9270; A9577; C9113; G0378; G0379; J1170; Q9967

== ENCOUNTER 2022-05-31 23:02 | Inpatient (IN) | payer OTHER, SELFPAY ==
--- NOTE | ~2022-05-31 | CT_ITS ---
EXAMINATION: CT abdomen pelvis w con INDICATION: Cirrhosis, diffuse abdominal pain TECHNIQUE: Computed tomographic images of the abdomen and pelvis were obtained after the administrati on of 100 cc of Omnipaque 350 intravenous contrast. The dose-length product (DLP) was 1105.38 mGy-cm. Automated exposure control and iterative reconstruction technique were employed. COMPARISON: 05/02/2022 FINDINGS: Cardiomegaly is noted. There is a moderate-sized pericardial effusion. There is mild atelec tasis and pulmonary edema of the visualized lung bases. There is nodularity of the liver surface, con sistent with cirrhosis. The gallbladder is surgically absent. The enlarged spleen measures 17.8 cm in craniocaudal length. The pancreas and adrenal glands are normal. There is a 2 mm nonobstructing ston e of the left kidney lower pole. The right kidney is unremarkable. There is a moderate volume of abdo briseida and pelvic ascites. No pathologically enlarged abdominal or pelvic lymph nodes are identified. There is no free intraperitoneal gas or evidence of bowel obstruction. There is ascites within an umb ilical hernia. There is mild lumbar spondylosis. Chronic compression fractures are noted in the lower thoracic spine. IMPRESSION: 1. Cirrhosis with portal hypertension and splenomegaly. 2. Moderate volume of ascites. 3. Cardiomegaly with moderate-sized pericardial effusion. Reviewed, dictated and finalized at location A. MOBILE DRIVER
--- NOTE | ~2022-05-31 | XR_ITS ---
EXAMINATION: XR shoulder LT 1V DATE: 06/02/2022 07:28 INDICATION: Left shoulder pain. TECHNIQUE: A single view of left shoulder was obtained. COMPARISON: Left shoulder radiographs 08/03/2018, chest CT 05/27/2021 FINDINGS: The humeral head is internally rotated. There is an old healed fracture deformity of left s capula. No acute fracture. The glenohumeral joint is not well profiled. The acromioclavicular joint i s normal. IMPRESSION: 1. No acute fracture. Reviewed, dictated and finalized at location A. NESS MANAGEMENT SPECIALIST IMPRESSION: 1. No acute fracture.
--- NOTE | ~2022-05-31 | US_ITS ---
EXAMINATION: US paracentesis abd w/image DATE: 06/02/2022 13:19 INDICATION: Ascites. TECHNIQUE: The procedure and its risks, benefits, and alternatives were discussed with the patient. P otential risks discussed included bleeding and infection. The skin was prepped and draped in sterile fashion. 1% lidocaine was used for local anesthesia. Under ultrasound guidance, a 5 Fr catheter with trochar was advanced into the ascites in the right lower quadrant. Fluid was aspirated. The catheter was removed, and a dressing was applied. There were no immediate complications. FINDINGS: Ultrasound images demonstrate ascites and the catheter within the fluid. IMPRESSION: 1. Successful ultrasound-guided paracentesis yielding 500 mL of yellow fluid. Reviewed, dictated and finalized at location A. RISK MANAGEMENT CONSULTANT
--- NOTE | ~2022-05-31 | XR_ITS ---
EXAMINATION: XR chest 1V portable INDICATION: Abdominal pain, shortness of breath TECHNIQUE: Portable AP chest at 0149 hours COMPARISON: 04/10/[address] of the same date FINDINGS: There is enlargement of the cardiac silhouette seen to be due to cardiomegaly and moderate pericardial effusion. There is a mild diffuse interstitial pattern. No pneumothorax or pleural effusi on. IMPRESSION: 1. Enlarged cardiac silhouette due to cardiomegaly and moderate pericardial effusion. 2. Mild pulmonary edema. Reviewed, dictated and finalized at location A. ET WRITER IMPRESSION: 1. Enlarged cardiac silhouette due to cardiomegaly and moderate pericardial eff usion. 2. Mild pulmonary edema.
[2022-05-31 23:04] VITALS: BP 161/91; PULSE 112; RESP 24; TEMP 36.4; O2SAT 100
--- NOTE | 2022-06-01 00:33 | ED.ABDPAIN ---
HPI - Abdominal Pain General Chief Complaint: Abdominal Pain <NEO Elder Last Filed: 06/01/22 04:19> Stated Complaint: ABD DISTENTION MAKING HARD TO BREATHE <NEO Elder Last Filed: 06/01/22 04:19> Time Seen by Provider: 06/01/22 00:05 <NEO Elder Last Filed: 06/01/22 04:19> Source: patient and old records reviewed <NEO Elder Last Filed: 06/01/22 04:19> Mode of arrival: EMS <NEO Elder Last Filed: 06/01/22 04:19> Limitations: no limitations <NEO Elder Last Filed: 06/01/22 04:19> History of Present Illness HPI narrative: Patient is a 52-year-old male, with a past medical history of cirrhosis, esophageal varices, CHF, who presents the ED with c/o abdominal pain. Patient reports frequent paracenteses for his abdominal ascites, most recently 4 weeks ago, scheduled for another on Thursday. He follows with Dr. Guerin with GI. Per patient's records, he has been admitted to the hospital here several times for similar symptoms. Patient reports having worsening diffuse abdominal pain and distention over the last few days, to the point he is almost having trouble breathing due to the distension. He has had some nausea, but denies vomiting. He also had 1 episode of rectal bleeding with diarrhea prior to arrival. He showed me a picture of this. Denies any recent fevers, cough cold symptoms, chest pain. <NEO Elder Last Filed: 06/01/22 04:19> Related Data Home Medications: Home Medications Medication Instructions Recorded Confirmed acetaminophen 325 mg capsule 650 mg PO PRN PRN Pain 12/09/21 05/02/22 (Tylenol) spironolactone 50 mg tablet 25 mg PO BID 12/09/21 05/02/22 (Aldactone) potassium chloride 20 mEq 20 meq PO DAILY 04/11/22 05/02/22 tablet,extended release(part/cryst) <Cinthia Aleman PA-C - Last Filed: 06/01/22 04:19> Allergies/Adverse Reactions: Allergies Allergy/AdvReac Type Severity Reaction Status Date / Time No Known Allergies Allergy Verified 04/11/22 09:39 <Cinthia Aleman PA-C - Last Filed: 06/01/22 04:19> Review of Systems Review of Systems: CONSTITUTIONAL: Denies fever, chills, or sweats. ENT: Denies rhinorrhea, congestion, sore throat. CARDIOVASCULAR: Denies chest pain. RESPIRATORY: Reports dyspnea. Denies cough. GASTROINTESTINAL: Reports diffuse abdominal pain, abdominal distension, nausea, rectal bleeding, diarrhea. Denies vomiting. GENITOURINARY: Denies dysuria or hematuria. <Cinthia Aleman PA-C - Last Filed: 06/01/22 04:19> All systems reviewed & are unremarkable except as noted in HPI and below <Cinthia Aleman PA-C - Last Filed: 06/01/22 04:19> [facility] Past Medical History Medical History: Medical History Abdominal pain Acute GI bleeding Anemia Arthritis Ascites C. difficile colitis C. difficile diarrhea Cerebrovascular accident (2004) Chest pain Chronic anemia Cirrhosis Cirrhosis of liver with ascites Diarrhea Diastolic congestive heart failure Esophageal varices Gastric ulcer Gastroesophageal reflux disease GI bleed Hematemesis Hyperglycemia Hypertension Kidney stone Leukemia In childhood. Pancreatic abnormality Pericardial effusion Noted on CT and echocardiogram in August 2020. No evidence of tamponade. Pericardial effusion Portal hypertensive gastropathy Noted on endoscopy on 03/23/[address] Duran. Prostate cancer Status post radiation seed implantation. Smoker Spontaneous bacterial peritonitis (04/2020) Syncope and collapse Tobacco dependence Tobacco use Type 2 diabetes mellitus Upper GI bleed <Cinthia Aleman PA-C - Last Filed: 06/01/22 04:19> Surgical History Surgical History: Surgical History H/O cystoscopy His
[2022-06-01] MEDS: MORPHINE SULFATE (*CRX) 4 MG/ML INJ IV PUSH ×2 (00:41→03:08)
[2022-06-01] MEDS: ONDANSETRON INJ 4 MG/2 ML VIAL IV PUSH ×2 (00:41→04:25)
[2022-06-01 01:00] LABS: Basophils Percent Auto 0.6 % (0.2-1.2); Eosinophils Percent Auto 1.2 % (0-4.4); Hematocrit 28.6 % (42.0-52.0); Hemoglobin 7.7 g/dL (14.0-18.0); Immature Platelet Fraction Pct 11.1 % (0.9-11.2); Lymphocytes Absolute Auto 0.71 K/mm3 (0.9-3.2); Lymphocytes Percent Auto 22.1 % (18.3-44.2); Mean Corpuscular HGB Conc 26.9 g/dl (32-36); Mean Corpuscular Hemoglobin 21.4 pg (26-34); Mean Corpuscular Volume 79.7 fl (80-100); Mean Platelet Volume 10.8 fl (7.4-10.4); Monocytes Absolute Auto 0.5 K/mm3 (0.1-0.6); Neutrophils Percent Auto 62.1 % (45.5-73.1); Platelet Count Result 86 k/mm3 (150-375); Red Blood Count 3.59 M/mm3 (4.6-6.20); Red Cell Distribution Width 17.2 % (11.5-14.5); White Blood Count 3.2 K/mm3 (4.5-10.0)
[2022-06-01 01:03] LABS: Add Urine Microscopic? YES; Appearance Urine Clear (Clear); Bilirubin Urine Negative (Negative); Blood Urine Negative (Negative); Color Urine Light Yellow (Yellow); Glucose Urine UA Trace mg/dL (Negative); Ketones Urine Negative (Negative); Leukocyte Esterase Ur Negative LEU/UL (Negative); Nitrate Urine Negative (Negative); Protein Urine Negative (Negative); Specific Grav Ur 1.015 (1.001-1.035); Urobilinogen Urine 0.2 mg/dL (<2.0); pH Urine 6.5 (5.0-9.0)
[2022-06-01 01:07] LABS: Mucus Urine Rare /lpf; WBC Urine 0-3 /hpf
[2022-06-01 01:10] LABS: Alanine Aminotransferase 13 U/L (6-50); Albumin Level 3.9 g/dL (3.5-5.1); Alkaline Phosphatase 204 U/L (38-126); Anion Gap 7 mmol/L (8-16); Aspartate Amino Transferase 53 U/L (17-59); Bilirubin,Total 0.4 mg/dL (0.2-1.3); Blood Urea Nitrogen 12 mg/dL (9-20); Calcium 8.7 mg/dL (8.4-10.2); Carbon Dioxide 30 mmol/L (22-30); Chloride 99 mmol/L (98-107); Estimated CRCL calculation 95 ml/min; Estimated Glomerular Filt Rate > 60; Glucose 190 mg/dL (65-110); Lactic Acid Reflex 2.3 mmol/L (0.7-2.0); Lipase 110 U/L (23-300); Potassium 3.2 mmol/L (3.4-5.0); Sodium 136 mmol/L (137-145)
[2022-06-01 01:19] LABS: Prothrombin Time 13.1 Seconds (11.1-14.7)
[2022-06-01 01:20] LABS: Partial Thromboplastin Time 31.5 SECONDS (22.3-36.8)
[2022-06-01 01:32] LABS: Hypochromasia 2+ (NORMAL); Platelet Estimate Decreased (Adequate)
[2022-06-01 01:33] LABS: Anisocytosis 1+ (NORMAL)
[2022-06-01 01:34] LABS: Influenza A QL RT-PCR Negative (Negative); Influenza B QL RT-PCR Negative (Negative); SARS-CoV-2 RNA PCR Negative
[2022-06-01 03:56] LABS: Reflex Lactic Acid Yes or No Add Lactic
[2022-06-01 04:14] LABS: NT Pro B Type Natriuretic Pept 856 pg/mL (5-100)
[2022-06-01 04:44] LABS: Lactic Acid 0.7 mmol/L (0.7-2.0)
[2022-06-01] MEDS: POTASSIUM CHLORIDE INJ 40 MEQ in SODIUM CHLORIDE 0.9% IV 500 ML 130 MEQ IVPB (05:32)
[2022-06-01 05:37] VITALS: BP 146/85; PULSE 102; RESP 18; O2SAT 98
--- NOTE | 2022-06-01 06:12 | PC.NURSE ---
Three rebekah placed to left frontal lobe along hair line by provider. Area cleaned and dried post and prior.
[2022-06-01 07:01] VITALS: BMI 33.9
--- NOTE | 2022-06-01 07:05 | PC.NURSE ---
This patient, Matt Worley II, was admitted to [facility] Surg Room 321-02. Patient/family oriented to hospital policies and general routines including ID bracelet, bed and alarms, visiting hours, pain management, procedures, bathroom and other care routines, personal items, smoking policy, room service/diet, and visiting hours. Information on how to activate the Rapid Response Team has been discussed. Patient/Family are encouraged to report perceived risks to care and to ask questions if they do not understand what they are told or what they should do.
[2022-06-01] MEDS: HYDROmorphone HCL INJ (*CRX) 1 MG/ML SYR 0.5 MG IV PUSH ×6 (07:22→22:55)
--- NOTE | 2022-06-01 07:42 | WPDGICN ---
Assessment and Plan Assessment and plan (1) Cirrhosis: Qualifiers: Ascites presence: with ascites Hepatic cirrhosis type: alcoholic cirrhosis Qualified Code(s): K70.31 - Alcoholic cirrhosis of liver with ascites Code(s): K74.60 - Unspecified cirrhosis of liver Status: Inactive Assessment and Plan: He states that he has not been a drinker although he did drink some when he was younger. 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 Unfortunately we had not been able to get him to get connected with filling machine operator in [place] except for 1 visit that he had earlier this year. He does however now having appointment, finally to see a filling machine operator April 25 at [facility] (2) Ascites: Code(s): R18.8 - Other ascites Status: Inactive Assessment and Plan: He has had some ascites for the last 2 years. he in the past would have 2 L or less when he would undergo paracentesis. Over the last couple months however his ascites has become more sick than if it gets. His examination today reveals very distended protuberant tense abdomen. He is in need of paracentesis as soon as possible because it is causing him some respiratory distress. He has been on spironolactone 50 mg b.i.d. and furosemide 40 mg daily. He actually increase the furosemide to 80 mg a day on his own to see if that would help. I have ordered paracentesis stat. Also will give IV Lasix and start him on spironolactone 100 mg b.i.d.. (3) Pancytopenia: Code(s): D61.818 - Other pancytopenia Status: Acute Assessment and Plan: Few months ago his white blood count was 2500 and platelet count was in the 60,000 range. They both improved. He is followed by Dr. An for his hematologic problems. (4) Esophageal varices: Code(s): I85.00 - Esophageal varices without bleeding Status: Acute Assessment and Plan: He has had multiple endoscopies. He has varices that have not shown any evidence of bleeding recently. He has had previous banding. We did increase his carvedilol during a previous admission, to 12.5 mg b.i.d.. We had told him that his filling machine operator may adjust that or even switch to a different medication but her fortunately he has not yet been able to get in to see the filling machine operator due to his appointments being Unfortunately, canceled several times. (5) Abdominal pain: Code(s): R10.9 - Unspecified abdominal pain Status: Inactive Assessment and Plan: he generally gets significant abdominal pain even when he has mild ascites. Obviously he is feeling much worse today because of the very tense ascites. GI Consult Note Consult date/time: 06/01/22 07:42 HPI: Matt Worley II is a 52 year old male well known to me, who has cirrhosis which is thought to be autoimmune in origin. He has had a very high MEL titer. He had been referred to hepatology at [facility] at least a year ago. For various reasons they have been cancelling and or postponing his appointments. He had an appointment scheduled in April but because he came down with C diff colitis his appointment was rescheduled for June. He does have portal hypertension. He is known to have esophageal varices and he has ascites which is becoming increasingly significant problem for him. He had a paracentesis just 4 weeks ago and is scheduled to have another 1 this Thursday. He became very uncomfortable and short of breath yesterday and came into the emergency room last night. It does not appear that paracentesis has been ordered or scheduled as of yet. Review of Systems Review of Systems: All systems reviewed & are unremarkable except as noted in HPI and below PMFSH Past Medical History Medical History Abdominal pain Acute GI bleeding Anemia Arthritis Ascites C. difficile colitis C.
[2022-06-01 08:20] LABS: Glucose Point of Care 164 mg/dl (65-105)
[2022-06-01] MEDS: FUROSEMIDE INJ 40 MG/4 ML VIAL IV PUSH (10:09)
[2022-06-01] MEDS: SPIRONOLACTONE 50 MG TABLET 100 MG PO ×2 (10:09→16:29)
--- NOTE | 2022-06-01 12:12 | PM.IMHP ---
H&P: HPI History of Present Illness Date/Time: 06/01/22 12:12 Chief Complaint: abdominal pain and distension Narrative: Patient is a 52-year-old male, with a past medical history of cirrhosis, esophageal varices, CHF, who presents the ED with c/o abdominal pain and worsening distension. Patient reports frequent paracenteses for his abdominal ascites, most recently 4 weeks ago, scheduled for another on coming Thursday. He follows with Dr. Guerin with GI.? Per patient's records, he has been admitted to the hospital here several times for similar symptoms.? Patient reports having worsening diffuse abdominal pain and distention over the last few days, to the point he is almost having trouble breathing due to the distension.? He has had some nausea, but denies vomiting.? He also had 1 episode of rectal bleeding with diarrhea prior to arrival.? Denies any recent fevers, cough cold symptoms, chest pain Review of Systems Review of Systems: - CONSTITUTIONAL: Denies weight loss, fever and chills. - HEENT: Denies changes in vision and hearing - RESPIRATORY: Denies SOB and cough. - CV: Denies palpitations and CP. - GI: reports abdominal pain, nausea, denies vomiting and denies diarrhea. - : Denies dysuria and urinary frequency. - MSK: Denies myalgia and joint pain. - SKIN: Denies rash and pruritus. - NEUROLOGICAL: Denies headache and syncope. - PSYCHIATRIC: Denies recent changes in mood. Denies anxiety and depression. [facility] Past Medical History Medical History Abdominal pain Acute GI bleeding Anemia Arthritis Ascites C. difficile colitis C. difficile diarrhea Cerebrovascular accident (2004) Chest pain Chronic anemia Cirrhosis Cirrhosis of liver with ascites Diarrhea Diastolic congestive heart failure Esophageal varices Gastric ulcer Gastroesophageal reflux disease GI bleed Hematemesis Hyperglycemia Hypertension Kidney stone Leukemia In childhood. Pancreatic abnormality Pericardial effusion Noted on CT and echocardiogram in August 2020. No evidence of tamponade. Pericardial effusion Portal hypertensive gastropathy Noted on endoscopy on 03/23/[address] Duran. Prostate cancer Status post radiation seed implantation. Smoker Spontaneous bacterial peritonitis (04/2020) Syncope and collapse Tobacco dependence Tobacco use Type 2 diabetes mellitus Upper GI bleed Surgical History Surgical History H/O cystoscopy History of appendectomy History of cholecystectomy History of inguinal hernia repair History of lithotripsy History of repair of right rotator cuff Family History Family History Mother Family history of malignant neoplasm of breast in first degree relative Breast cancer Father Acute myocardial infarction Hypertension Heart disease Other Diabetes mellitus Maternal Unkle Other Family history of malignant neoplasm Social History Social History Social History: The patient has 4 children and is disabled. The youngest child is turning 8 years old. His has metastatic breast cancer. He is a former smoker. Surrogate decision maker: Myra Worley () or 1st Marnie Washington (aunt). Code status: Full code Smoking packs per day: 0.5 Smoking cigarettes per day: 10.0 Years smoked: 20 Smoking pack-years: 10.00 Smoking status: Former smoker Tobacco type: cigarettes Second hand tobacco smoke exposure: No Alcohol intake: former Alcohol use details: Former beer drinker. Substance use: never Substance use type: does not use Lack of Transportation: No Lack of Food: Never True Current Housing: I Have Housing Concerned About Future Housing: No Difficulty Paying Gas/Electric Bills: No Difficulty Paying for Meds: No Currently Un
[2022-06-01 12:32] LABS: Glucose Point of Care 206 mg/dl (65-105)
[2022-06-01 14:00] VITALS: BP 140/90; PULSE 95; RESP 20; TEMP 36.1; O2SAT 99
[2022-06-01] MEDS: FUROSEMIDE 40 MG TABLET PO (16:30)
[2022-06-01 17:29] LABS: Glucose Point of Care 144 mg/dl (65-105)
[2022-06-01 20:26] VITALS: PULSE 98
[2022-06-01] MEDS: carvediloL 12.5 MG TABLET PO (20:26)
[2022-06-01] MEDS: PANTOPRAZOLE 40 MG TABLET PO (20:26)
[2022-06-01 20:57] LABS: Glucose Point of Care 222 mg/dl (65-105)
[2022-06-01 22:00] VITALS: BP 137/80; PULSE 94; RESP 20; TEMP 36.3; O2SAT 97
[2022-06-02] MEDS: oxyCODONE/ACETAMINOPHEN (*CRX) 5-325 MG TABLET 1 TABLET PO ×4 (00:02→20:29)
[2022-06-02] MEDS: HYDROmorphone HCL INJ (*CRX) 1 MG/ML SYR 0.5 MG IV PUSH ×7 (02:08→22:16)
[2022-06-02 05:56] VITALS: BP 116/66; PULSE 79; RESP 20; TEMP 36.3; O2SAT 97
[2022-06-02 06:57] LABS: Basophils Percent Auto 0.4 % (0.2-1.2); Eosinophils Absolute Auto 0.1 K/mm3 (0-0.3); Hematocrit 25.4 % (42.0-52.0); Immature Granulocyte Absolute 0.01 K/mm3 (0.00-0.031); Immature Granulocyte Percent A 0.4 % (0-0.5); Immature Platelet Fraction Pct 12.7 % (0.9-11.2); Lymphocytes Absolute Auto 0.56 K/mm3 (0.9-3.2); Lymphocytes Percent Auto 21.1 % (18.3-44.2); Mean Corpuscular HGB Conc 27.6 g/dl (32-36); Mean Corpuscular Hemoglobin 21.3 pg (26-34); Mean Corpuscular Volume 77.4 fl (80-100); Mean Platelet Volume 11.7 fl (7.4-10.4); Monocytes Absolute Auto 0.5 K/mm3 (0.1-0.6); Monocytes Percent Auto 16.9 % (2.6-8.5); Neutrophils Absolute Auto 1.6 K/mm3 (1.3-6.7); Neutrophils Percent Auto 58.2 % (45.5-73.1); Platelet Count Result 67 k/mm3 (150-375); Red Blood Count 3.28 M/mm3 (4.6-6.20); Red Cell Distribution Width 17.2 % (11.5-14.5); White Blood Count 2.7 K/mm3 (4.5-10.0)
[2022-06-02 07:02] LABS: Alanine Aminotransferase 12 U/L (6-50); Albumin Level 3.5 g/dL (3.5-5.1); Alkaline Phosphatase 179 U/L (38-126); Anion Gap 3 mmol/L (8-16); Aspartate Amino Transferase 31 U/L (17-59); Bilirubin,Total 0.7 mg/dL (0.2-1.3); Blood Urea Nitrogen 16 mg/dL (9-20); Calcium 8.2 mg/dL (8.4-10.2); Carbon Dioxide 32 mmol/L (22-30); Chloride 97 mmol/L (98-107); Estimated CRCL calculation 86 ml/min; Estimated Glomerular Filt Rate > 60; Glucose 138 mg/dL (65-110); Magnesium 1.9 mg/dL (1.6-2.3); Potassium 3.8 mmol/L (3.4-5.0); Sodium 132 mmol/L (137-145)
[2022-06-02 08:23] VITALS: PULSE 79
[2022-06-02] MEDS: carvediloL 12.5 MG TABLET PO ×2 (08:23→20:30)
[2022-06-02] MEDS: PANTOPRAZOLE 40 MG TABLET PO ×2 (08:23→20:30)
[2022-06-02] MEDS: POTASSIUM CHLORIDE 20 MEQ TABLET.ER PO (08:23)
[2022-06-02 08:32] LABS: Glucose Point of Care 162 mg/dl (65-105)
[2022-06-02 11:42] LABS: Glucose Point of Care 168 mg/dl (65-105)
[2022-06-02 13:06] VITALS: BMI 33.9
[2022-06-02 13:12] VITALS: BMI 33.9
[2022-06-02 14:53] VITALS: BP 114/63; PULSE 82; RESP 17; TEMP 36.2; O2SAT 98
--- NOTE | 2022-06-02 15:44 | WPDGIPROGNO ---
Progress Note: A&P Assessment and Plan (1) Cirrhosis: Qualifiers: Ascites presence: with ascites Hepatic cirrhosis type: alcoholic cirrhosis Qualified Code(s): K70.31 - Alcoholic cirrhosis of liver with ascites Code(s): K74.60 - Unspecified cirrhosis of liver Status: Inactive Assessment and Plan: He states that he has not been a drinker although he did drink some when he was younger. 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 Unfortunately we had not been able to get him to get connected with chemical tank worker in [place] except for 1 visit that he had earlier this year. He does however now having appointment, finally to see a chemical tank worker April 25 at [facility] (2) Ascites: Code(s): R18.8 - Other ascites Status: Inactive Assessment and Plan: He has had some ascites for the last 2 years. he in the past would have 2 L or less when he would undergo paracentesis. Over the last couple months however his ascites has become more sick than if it gets. His examination today reveals very distended protuberant tense abdomen. He is in need of paracentesis as soon as possible because it is causing him some respiratory distress. He has been on spironolactone 50 mg b.i.d. and furosemide 40 mg daily. He actually increase the furosemide to 80 mg a day on his own to see if that would help. I have ordered paracentesis stat. Also will give IV Lasix and start him on spironolactone 100 mg b.i.d.. 06/02/2022 he feels better even though only 500 mL was withdrawn. I told that I have doubled his Aldactone to 200 mg per day that would give him the appropriate ratio to furosemide if he is taking 80 mg as he had started doing at home (3) Pancytopenia: Code(s): D61.818 - Other pancytopenia Status: Acute Assessment and Plan: Few months ago his white blood count was 2500 and platelet count was in the 60,000 range. They both improved. He is followed by Dr. An for his hematologic problems. (4) Esophageal varices: Code(s): I85.00 - Esophageal varices without bleeding Status: Acute Assessment and Plan: He has had multiple endoscopies. He has varices that have not shown any evidence of bleeding recently. He has had previous banding. We did increase his carvedilol during a previous admission, to 12.5 mg b.i.d.. We had told him that his chemical tank worker may adjust that or even switch to a different medication but her fortunately he has not yet been able to get in to see the chemical tank worker due to his appointments being Unfortunately, canceled several times. (5) Abdominal pain: Code(s): R10.9 - Unspecified abdominal pain Status: Inactive Assessment and Plan: he generally gets significant abdominal pain even when he has mild ascites. Obviously he is feeling much worse today because of the very tense ascites. 04/02 feels much better now after paracentesis Subjective Date/time seen: 06/02/22 15:44 he feels better after paracentesis. Only 500 mL could be withdrawn. He states that his hemoglobin has dropped and therefore of the hospitalist want to observe him overnight. Dr. An as been monitoring his blood counts as an outpatient. He he thinks that some medication is going to be called in. He just got a call from his pharmacy that syringes and needles have been ordered for him. He has had no bloody or black tarry stools since admission. Exam Const: General: alert Orientation/consciousness: patient oriented x3 Resp: Auscultation: clear to auscultation bilaterally Cardio: Rhythm: regular rhythm GI: GI Palp: Yes Soft to palpation, Yes Tenderness to palpation present (GI) (Tender to palpation throughout), Yes Hepatomegaly present, No Hernia present, No Palpable mass present and Yes Ascites present ( Tense ) Auscultation: normal bowel sounds Skin: General skin exam: normal c
[2022-06-02] MEDS: FUROSEMIDE 40 MG TABLET PO (16:38)
[2022-06-02] MEDS: SPIRONOLACTONE 50 MG TABLET 100 MG PO (16:38)
--- NOTE | 2022-06-02 17:55 | PM.IMPN ---
Progress Note: A&P Assessment and Plan (1) Abdominal ascites: Qualifiers: Ascites type: due to alcoholic cirrhosis Qualified Code(s): K70.31 - Alcoholic cirrhosis of liver with ascites Code(s): R18.8 - Other ascites Status: Acute (2) Cirrhosis: Qualifiers: Ascites presence: with ascites Hepatic cirrhosis type: unspecified hepatic cirrhosis Qualified Code(s): K74.60 - Unspecified cirrhosis of liver; R18.8 - Other ascites Code(s): K74.60 - Unspecified cirrhosis of liver Status: Acute (3) Abdominal pain: Qualifiers: Abdominal location: generalized Qualified Code(s): R10.84 - Generalized abdominal pain Code(s): R10.9 - Unspecified abdominal pain Status: Acute (4) History of rectal bleeding: Code(s): Z87.19 - Personal history of other diseases of the digestive system Status: Acute (5) Diastolic congestive heart failure: Qualifiers: Heart failure chronicity: chronic Qualified Code(s): I50.32 - Chronic diastolic (congestive) heart failure Code(s): I50.30 - Unspecified diastolic (congestive) heart failure Status: Acute (6) Type 2 diabetes mellitus: Qualifiers: Diabetes mellitus terminal operator insulin use: without senior care use Diabetes mellitus complication status: without complication Qualified Code(s): E11.9 - Type 2 diabetes mellitus without complications Code(s): E11.9 - Type 2 diabetes mellitus without complications Status: Acute (7) GI bleed: Qualifiers: GI bleed type/associated pathology: unspecified gastrointestinal hemorrhage type Qualified Code(s): K92.2 - Gastrointestinal hemorrhage, unspecified Code(s): K92.2 - Gastrointestinal hemorrhage, unspecified Status: Acute (8) Pulmonary hypertension: Code(s): I27.20 - Pulmonary hypertension, unspecified Status: Acute Plan # Abdominal pain and distension:CT abdomen of cirrhosis with portal hypertension splenomegaly with moderate volume ascites. Also noted cardiomegaly with moderate-sized pericardial effusion. Ongoing issue with ascites related to his cirrhosis of liver needing intermittent paracentesis. Last tap was done on 05/02/2022. he is scheduled to get another today. Routinely was scheduled to get on Thursday however re-presented to the hospital with worsening abdominal distension and pain. Ascites fluid will be sent for diagnostic tests as well to rule out SBP. Without fever and other infectious on empiric ceftriaxone Continue on Lasix and spironolactone. Spironolactone dose has been increased to 100 mg b.i.d. resume home dose of Lasix 40 mg b.i.d. If gets large volume paracentesis will give albumin status post paracetnesis 06/02/2022: removed 500 ml. discussed with radiology. states he remvoed as much as he could. # recent history of C diff colitis # type 2 diabetes mellitus: -Accu-Chek AC and HS.? -sliding scale insulin. -hypoglycemic protocol. # congestive heart failure:Chest x-ray with congestive changes. Continue diuresis -continue with his Coreg, Lasix and Aldactone # blood in stool: 1 episode prior to this admission. H&H stable compared to prior levels. Does have chronic anemia. History of esophageal paresis. GI on board. EGD on 04/11/2022 with nonbleeding esophageal paresis and gastritis with moderate portal hypertensive changes. H&H is mildly low today. Will continue to monitor no further GI bleed reported # chronic anemia / pancytopenia: The patient has a history of having esophageal varices but does not have any hematemesis at this time.? His H&H is at his baseline.? Will continue to monitor. EGD on 04/11/2022: Nonbleeding esophageal varices and gastritis, moderate portal hypertensive change # cirrhosis of liver with ascites: ?known diagnosis? but unclear etiology.? Suspected autoimmune liver disease however has not been able to follow-up with finance professional at [facility]
[2022-06-02 18:31] LABS: Glucose Point of Care 167 mg/dl (65-105)
[2022-06-02 20:30] VITALS: PULSE 82
[2022-06-02 21:43] VITALS: BP 118/63; PULSE 88; RESP 18; TEMP 36.2; O2SAT 99
[2022-06-02] MEDS: HYDROmorphone HCL INJ (*CRX) 1 MG/ML SYR IV PUSH (23:04)
[2022-06-02 23:23] LABS: Glucose Point of Care 164 mg/dl (65-105)
[2022-06-03] MEDS: HYDROmorphone HCL INJ (*CRX) 1 MG/ML SYR IV PUSH ×4 (01:13→10:42)
[2022-06-03] MEDS: oxyCODONE/ACETAMINOPHEN (*CRX) 5-325 MG TABLET 1 TABLET PO ×2 (03:00→09:48)
[2022-06-03 05:48] VITALS: BP 118/80; PULSE 81; RESP 20; TEMP 36.2; O2SAT 100
[2022-06-03 06:29] LABS: Basophils Percent Auto 0.7 % (0.2-1.2); Eosinophils Absolute Auto 0.1 K/mm3 (0-0.3); Eosinophils Percent Auto 3.5 % (0-4.4); Hematocrit 27.2 % (42.0-52.0); Hemoglobin 7.3 g/dL (14.0-18.0); Immature Platelet Fraction Pct 14.5 % (0.9-11.2); Lymphocytes Absolute Auto 0.65 K/mm3 (0.9-3.2); Lymphocytes Percent Auto 22.6 % (18.3-44.2); Mean Corpuscular HGB Conc 26.8 g/dl (32-36); Mean Corpuscular Hemoglobin 21.5 pg (26-34); Monocytes Absolute Auto 0.6 K/mm3 (0.1-0.6); Monocytes Percent Auto 19.1 % (2.6-8.5); Neutrophils Absolute Auto 1.6 K/mm3 (1.3-6.7); Neutrophils Percent Auto 54.1 % (45.5-73.1); Platelet Count Result 79 k/mm3 (150-375); Red Cell Distribution Width 17.2 % (11.5-14.5); White Blood Count 2.9 K/mm3 (4.5-10.0)
[2022-06-03 06:47] LABS: Alanine Aminotransferase 13 U/L (6-50); Albumin Level 3.8 g/dL (3.5-5.1); Alkaline Phosphatase 184 U/L (38-126); Anion Gap 6 mmol/L (8-16); Aspartate Amino Transferase 32 U/L (17-59); Bilirubin,Total 0.5 mg/dL (0.2-1.3); Blood Urea Nitrogen 21 mg/dL (9-20); Calcium 8.5 mg/dL (8.4-10.2); Carbon Dioxide 32 mmol/L (22-30); Chloride 95 mmol/L (98-107); Estimated CRCL calculation 71 ml/min; Estimated Glomerular Filt Rate > 60; Glucose 130 mg/dL (65-110); Potassium 4.3 mmol/L (3.4-5.0); Sodium 133 mmol/L (137-145)
[2022-06-03 07:57] LABS: Glucose Point of Care 144 mg/dl (65-105)
[2022-06-03 08:27] LABS: Hypochromasia 2+ (NORMAL); Microcytosis 1+ (NORMAL); Platelet Estimate Decreased (Adequate); Schistocytes None Seen (NORMAL)
[2022-06-03] MEDS: PANTOPRAZOLE 40 MG TABLET PO (09:44)
[2022-06-03] MEDS: FUROSEMIDE 40 MG TABLET PO (09:44)
[2022-06-03] MEDS: SPIRONOLACTONE 50 MG TABLET 100 MG PO (09:44)
[2022-06-03] MEDS: POTASSIUM CHLORIDE 20 MEQ TABLET.ER PO (09:44)
[2022-06-03] MEDS: carvediloL 12.5 MG TABLET PO (09:44)
[2022-06-03 11:55] LABS: Glucose Point of Care 164 mg/dl (65-105)
--- NOTE | 2022-06-03 12:20 | PM.DS ---
DS: Admitting Diagnosis Discharge Date 06/03/2022 Admitting Diagnosis Abdominal pain and distension DS: Discharge Diagnosis Discharge Diagnosis (1) Abdominal ascites: Qualifiers: Ascites type: due to alcoholic cirrhosis Qualified Code(s): K70.31 - Alcoholic cirrhosis of liver with ascites Code(s): R18.8 - Other ascites Status: Acute (2) Cirrhosis: Qualifiers: Ascites presence: with ascites Hepatic cirrhosis type: unspecified hepatic cirrhosis Qualified Code(s): K74.60 - Unspecified cirrhosis of liver; R18.8 - Other ascites Code(s): K74.60 - Unspecified cirrhosis of liver Status: Acute (3) Abdominal pain: Qualifiers: Abdominal location: generalized Qualified Code(s): R10.84 - Generalized abdominal pain Code(s): R10.9 - Unspecified abdominal pain Status: Acute (4) History of rectal bleeding: Code(s): Z87.19 - Personal history of other diseases of the digestive system Status: Acute (5) Diastolic congestive heart failure: Qualifiers: Heart failure chronicity: chronic Qualified Code(s): I50.32 - Chronic diastolic (congestive) heart failure Code(s): I50.30 - Unspecified diastolic (congestive) heart failure Status: Acute (6) Type 2 diabetes mellitus: Qualifiers: Diabetes mellitus fpc insulin use: without fpc use Diabetes mellitus complication status: without complication Qualified Code(s): E11.9 - Type 2 diabetes mellitus without complications Code(s): E11.9 - Type 2 diabetes mellitus without complications Status: Acute (7) GI bleed: Qualifiers: GI bleed type/associated pathology: unspecified gastrointestinal hemorrhage type Qualified Code(s): K92.2 - Gastrointestinal hemorrhage, unspecified Code(s): K92.2 - Gastrointestinal hemorrhage, unspecified Status: Acute (8) Pulmonary hypertension: Code(s): I27.20 - Pulmonary hypertension, unspecified Status: Acute DS: Summary Hospital Course Hospital Course: # Abdominal pain and distension:CT abdomen of cirrhosis with portal hypertension splenomegaly with moderate volume ascites.? Also noted cardiomegaly with moderate-sized pericardial effusion. Ongoing issue with ascites related to his cirrhosis of liver needing intermittent paracentesis.? Last tap was done on 05/02/2022.? he is scheduled to get another coming Thursday. Routinely was scheduled to get on Thursday however re-presented to the hospital with worsening abdominal distension and pain.? Ascites fluid will be sent for diagnostic tests as well to rule out SBP.? Without fever and other infectious? on empiric ceftriaxone. Continue on Lasix and spironolactone.? Spironolactone dose has been increased to 100 mg b.i.d. resume home dose of Lasix 40 mg b.i.d. status? post paracetnesis 06/02/2022: removed 500 ml. discussed with radiology. states he remvoed as much as he could. Will continue to monitor as outpatient basis for repeat paracentesis his spironolactone dose has been increased this admission she tolerated well # recent history of C diff colitis # type 2 diabetes mellitus: -Accu-Chek AC and HS.? -sliding scale insulin. -hypoglycemic protocol. # congestive heart failure:Chest x-ray with congestive changes.? Continue diuresis -continue with his Coreg, Lasix and Aldactone # blood in stool:? 1 episode prior to this admission.? H&H stable compared to prior levels.? Does have chronic anemia.? History of esophageal paresis.? GI on board.? EGD on 04/11/2022 with nonbleeding esophageal paresis and gastritis with moderate portal hypertensive changes.? Will continue to monitor no further GI bleed reported H&H remained stable. He is following with industrial custodian and started on vitamin B12 replacement therapy # chronic anemia / pancytopenia: The patient has a history of having esophageal varices but does not have any hematemesis at this time.? His H&H is at
[2022-06-03 14:00] VITALS: BP 107/72; PULSE 82; RESP 20; TEMP 36; O2SAT 100
== END 2022-06-03 15:00 | disposition home or self-care (01) ==
LOC: ANHED 06-01 04:18 → ANH3MEDSUR 06-01 05:22
PROVIDERS: Physician Assistant; Admitting Provider Internal Medicine; Emergency Provider Emergency Medicine; PCP Hospitalist; Visit Provider Internal Medicine
DX: K74.69 Other cirrhosis of liver (principal); D61.818 Other pancytopenia; D89.89 Other specified disorders involving the immune mechanism, not elsewhere classified; I31.39 Other pericardial effusion (noninflammatory); I85.10 Secondary esophageal varices without bleeding; R18.8 Other ascites; K76.6 Portal hypertension; I27.20 Pulmonary hypertension, unspecified; I11.0 Hypertensive heart disease with heart failure; I50.32 Chronic diastolic (congestive) heart failure; C61 Malignant neoplasm of prostate; D64.9 Anemia, unspecified; K92.1 Melena; K21.9 Gastro-esophageal reflux disease without esophagitis; E11.9 Type 2 diabetes mellitus without complications; E87.6 Hypokalemia; K31.89 Other diseases of stomach and duodenum; M19.90 Unspecified osteoarthritis, unspecified site; Z20.822 Contact with and (suspected) exposure to COVID-19; Z86.73 Personal history of transient ischemic attack (TIA), and cerebral infarction without residual deficits; Z87.11 Personal history of peptic ulcer disease; Z87.442 Personal history of urinary calculi; Z85.6 Personal history of leukemia; Z87.891 Personal history of nicotine dependence
CPT/HCPCS: 36415; 49083; 71045; 73020; 74177; 80053; 81001; 82948; 83605; 83690; 83735; 83880; 85025; 85055; 85610; 85730; 86850; 86880; 86900; 86901; 86902; 87040; 87070; 87075; 87205; 87636; 96365; 96366; 96368; 96375; 96376; 99285; A9270; G0378; G0379; J0696; J1170; J1940; J2270; J2405; J3480; J7040; Q9967

== ENCOUNTER 2022-06-04 23:10 | Emergency (ER) | payer OTHER, SELFPAY ==
[2022-06-04 23:19] VITALS: BP 142/72; PULSE 95; RESP 16; TEMP 37
[2022-06-04 23:41] LABS: Basophils Percent Auto 0.7 % (0.2-1.2); Eosinophils Absolute Auto 0.1 K/mm3 (0-0.3); Eosinophils Percent Auto 2.8 % (0-4.4); Hematocrit 26.6 % (42.0-52.0); Immature Granulocyte Absolute 0.01 K/mm3 (0.00-0.031); Immature Granulocyte Percent A 0.3 % (0-0.5); Lymphocytes Percent Auto 24.5 % (18.3-44.2); Mean Corpuscular HGB Conc 26.7 g/dl (32-36); Mean Corpuscular Hemoglobin 21.5 pg (26-34); Mean Corpuscular Volume 80.4 fl (80-100); Mean Platelet Volume 12.3 fl (7.4-10.4); Monocytes Absolute Auto 0.4 K/mm3 (0.1-0.6); Neutrophils Absolute Auto 1.6 K/mm3 (1.3-6.7); Neutrophils Percent Auto 56.7 % (45.5-73.1); Platelet Count Result 92 k/mm3 (150-375); Red Blood Count 3.31 M/mm3 (4.6-6.20); Red Cell Distribution Width 17.5 % (11.5-14.5); White Blood Count 2.9 K/mm3 (4.5-10.0)
[2022-06-04 23:49] LABS: Alanine Aminotransferase 14 U/L (6-50); Albumin Level 3.8 g/dL (3.5-5.1); Alkaline Phosphatase 190 U/L (38-126); Anion Gap 5 mmol/L (8-16); Aspartate Amino Transferase 41 U/L (17-59); Bilirubin,Total 0.3 mg/dL (0.2-1.3); Blood Urea Nitrogen 14 mg/dL (9-20); Calcium 8.1 mg/dL (8.4-10.2); Carbon Dioxide 27 mmol/L (22-30); Chloride 104 mmol/L (98-107); Estimated CRCL calculation 84 ml/min; Estimated Glomerular Filt Rate > 60; Glucose 152 mg/dL (65-110); Lipase 74 U/L (23-300); Potassium 3.9 mmol/L (3.4-5.0); Sodium 136 mmol/L (137-145)
[2022-06-04 23:59] LABS: Hemoglobin 7.1 g/dL (14.0-18.0)
[2022-06-05 00:23] LABS: Hypochromasia 2+ (NORMAL)
[2022-06-05 00:24] LABS: Microcytosis 2+ (NORMAL); Poikilocytosis 1+ (NORMAL)
[2022-06-05 00:25] LABS: Schistocytes None Seen (NORMAL)
--- NOTE | 2022-06-05 00:50 | ED.ABDPAIN ---
HPI - Abdominal Pain General Chief Complaint: Abdominal Pain Stated Complaint: ABD PAIN Time Seen by Provider: 06/05/22 00:50 Source: patient and family Mode of arrival: ambulatory History of Present Illness HPI narrative: 52 years old white female got discharged yesterday from our facility with liver cirrhosis and ascites. Patient had abdominal centesis 3 days ago, is back to our emergency room today because he believes that he may need abdominal centesis again. He denies any fever, chills, nausea, vomiting. Patient was advised to double his diuretics at the time of discharge from our hospital Related Data Home Medications Medication Instructions Recorded Confirmed potassium chloride 20 mEq 20 meq PO DAILY 04/11/22 06/01/22 tablet,extended release(part/cryst) Allergies Allergy/AdvReac Type Severity Reaction Status Date / Time No Known Allergies Allergy Verified 04/11/22 09:39 Review of Systems Review of Systems: All systems reviewed & are unremarkable except as noted in HPI and below PMFSH Past Medical History Medical History Abdominal pain Acute GI bleeding Anemia Arthritis Ascites C. difficile colitis C. difficile diarrhea Cerebrovascular accident (2004) Chest pain Chronic anemia Cirrhosis Cirrhosis of liver with ascites Diarrhea Diastolic congestive heart failure Esophageal varices Gastric ulcer Gastroesophageal reflux disease GI bleed Hematemesis Hyperglycemia Hypertension Kidney stone Leukemia In childhood. Pancreatic abnormality Pericardial effusion Noted on CT and echocardiogram in August 2020. No evidence of tamponade. Pericardial effusion Portal hypertensive gastropathy Noted on endoscopy on 03/23/[address] Duran. Prostate cancer Status post radiation seed implantation. Smoker Spontaneous bacterial peritonitis (04/2020) Syncope and collapse Tobacco dependence Tobacco use Type 2 diabetes mellitus Upper GI bleed Surgical History Surgical History H/O cystoscopy History of appendectomy History of cholecystectomy History of inguinal hernia repair History of lithotripsy History of repair of right rotator cuff Family History Family History Mother Family history of malignant neoplasm of breast in first degree relative Breast cancer Father Acute myocardial infarction Hypertension Heart disease Other Diabetes mellitus Maternal Unkle Other Family history of malignant neoplasm Social History Social History Social History: The patient has 4 children and is disabled. The youngest child is turning 8 years old. His has metastatic breast cancer. He is a former smoker. Surrogate decision maker: Myra Josephuss () or 1st Marnie Washington (aunt). Code status: Full code Smoking packs per day: 0.5 Smoking cigarettes per day: 10.0 Years smoked: 20 Smoking pack-years: 10.00 Smoking status: Former smoker Tobacco type: cigarettes Second hand tobacco smoke exposure: No Alcohol intake: former Alcohol use details: Former beer drinker. Substance use: never Substance use type: does not use Lack of Transportation: No Lack of Food: Never True Current Housing: I Have Housing Concerned About Future Housing: No Difficulty Paying Gas/Electric Bills: No Difficulty Paying for Meds: No Currently Unemployed: No Education: Associate Degree Difficulty w/ Childcare or Family Care: No Additional living arrangements comments: Resides in [place] with his and son. 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 Spiritual care concerns: No Agree to blood products: Yes Exam Narrative: General appearance: Well-developed, well-nourished Skin: Normal color Head: Normocep
[2022-06-05 01:05] LABS: Add Urine Microscopic? NO; Appearance Urine Clear (Clear); Bilirubin Urine Negative (Negative); Blood Urine Negative (Negative); Color Urine Light Yellow (Yellow); Glucose Urine UA Negative (Negative); Ketones Urine Negative (Negative); Leukocyte Esterase Ur Negative LEU/UL (Negative); Nitrate Urine Negative (Negative); Protein Urine Negative (Negative); Urobilinogen Urine 0.2 mg/dL (<2.0); pH Urine 6.5 (5.0-9.0)
[2022-06-05 01:27] LABS: INR 1.2; Prothrombin Time 14.6 Seconds (11.1-14.7)
[2022-06-05 01:28] LABS: Partial Thromboplastin Time 32.8 SECONDS (22.3-36.8)
== END 2022-06-05 02:31 | disposition home or self-care (01) ==
PROVIDERS: Emergency Provider Emergency Medicine; PCP Hospitalist
DX: R18.8 Other ascites (principal); K74.60 Unspecified cirrhosis of liver; I50.30 Unspecified diastolic (congestive) heart failure; I11.0 Hypertensive heart disease with heart failure; D64.9 Anemia, unspecified; E11.9 Type 2 diabetes mellitus without complications; K76.6 Portal hypertension; K31.89 Other diseases of stomach and duodenum; K21.9 Gastro-esophageal reflux disease without esophagitis; M19.90 Unspecified osteoarthritis, unspecified site; Z86.73 Personal history of transient ischemic attack (TIA), and cerebral infarction without residual deficits; Z85.6 Personal history of leukemia; Z87.891 Personal history of nicotine dependence; Z87.442 Personal history of urinary calculi; Z85.46 Personal history of malignant neoplasm of prostate
CPT/HCPCS: 36415; 80053; 81003; 83690; 85025; 85055; 85610; 85730; 99283

== ENCOUNTER 2022-06-09 17:44 | Emergency (ER) | payer OTHER, SELFPAY ==
[2022-06-09] VITALS (10 sets, daily range): BP systolic 141–161; BP diastolic 83–98; PULSE 84–99; RESP 16–18; TEMP 36.4; O2SAT 98–100
--- NOTE | ~2022-06-09 | CT_ITS ---
EXAMINATION: CT brain wo con DATE: 06/09/2022 18:34 INDICATION: Mechanical fall, cirrhosis, possible LOC . TECHNIQUE: Computed tomography (CT) of the head was performed without intravenous contrast. The mA wa s adjusted according to patient size. Iterative reconstruction technique was employed. The dose-lengt h product was 832.33 mGy-cm. COMPARISON: 04/10/2022. FINDINGS: No acute intracranial hemorrhage or extra-axial fluid collection. No hydrocephalus, mass, or herniation. No acute ischemic infarct. Unremarkable dural venous sinus attenuation. No acute osseous abnormality. Trace left mastoid effusion, the remaining aerated spaces are clear. Mild atrophy and chronic white matter change. IMPRESSION: No acute intracranial process. Reviewed, dictated and finalized at location K. ATOR OPERATOR
--- NOTE | ~2022-06-09 | XR_ITS ---
EXAM: XR pelvis 1-2V DATE: 06/09/2022 18:55 HISTORY: Mechanical fall, pain to sacrum . COMPARISON: None available. FINDINGS: Normal mineralization. No fracture or dislocation. No lytic or blastic lesion. Joint space s are maintained. No erosion or periosteal change. Surgical clip in the left pelvis. Scattered pelvic calcifications. IMPRESSION: No acute osseous finding in the pelvis. Reviewed, dictated and finalized at location K. GAGE LOAN REVIEWER
--- NOTE | 2022-06-09 18:44 | ED.GENADULT ---
HPI - General Adult General Chief complaint: Fall Stated complaint: fall, hit head Time Seen by Provider: 06/09/22 18:10 History of Present Illness HPI narrative: 52-year-old male history of cirrhosis, hypertension presented with mechanical fall. Patient earlier today he was helping his son he slipped on the driveway falling onto his buttocks and hitting the back of his head. He reports that he is unsure if he had LOC. He continued to have pain to his lower back, so presented to the ED for further evaluation. He denied neck pain, injury elsewhere, nausea, vomiting, dizziness, headache, chest pain, shortness of breath, abdominal pain, fevers, chills. Past medical history: Cirrhosis, esophageal varices, hypertension Past Surgical History: cholecystectomy, appendectomy Medications: Carvedilol, furosemide, pantoprazole, spironolactone Allergies no known drug allergies Social: Denied smoking, alcohol, recreational drugs Related Data Home Medications Medication Instructions Recorded Confirmed potassium chloride 20 mEq 20 meq PO DAILY 04/11/22 06/01/22 tablet,extended release(part/cryst) Allergies Allergy/AdvReac Type Severity Reaction Status Date / Time No Known Allergies Allergy Verified 04/11/22 09:39 Review of Systems Review of Systems: See HPI [facility] Past Medical History Medical History Abdominal pain Acute GI bleeding Anemia Arthritis Ascites C. difficile colitis C. difficile diarrhea Cerebrovascular accident (2004) Chest pain Chronic anemia Cirrhosis Cirrhosis of liver with ascites Diarrhea Diastolic congestive heart failure Esophageal varices Gastric ulcer Gastroesophageal reflux disease GI bleed Hematemesis Hyperglycemia Hypertension Kidney stone Leukemia In childhood. Pancreatic abnormality Pericardial effusion Noted on CT and echocardiogram in August 2020. No evidence of tamponade. Pericardial effusion Portal hypertensive gastropathy Noted on endoscopy on 03/23/[address] Duran. Prostate cancer Status post radiation seed implantation. Smoker Spontaneous bacterial peritonitis (04/2020) Syncope and collapse Tobacco dependence Tobacco use Type 2 diabetes mellitus Upper GI bleed Surgical History Surgical History H/O cystoscopy History of appendectomy History of cholecystectomy History of inguinal hernia repair History of lithotripsy History of repair of right rotator cuff Family History Family History Mother Family history of malignant neoplasm of breast in first degree relative Breast cancer Father Acute myocardial infarction Hypertension Heart disease Other Diabetes mellitus Maternal Unkle Other Family history of malignant neoplasm Social History Social History Social History: The patient has 4 children and is disabled. The youngest child is turning 8 years old. His has metastatic breast cancer. He is a former smoker. Surrogate decision maker: Myra Worley () or 1st Marnie Washington (aunt). Code status: Full code Smoking packs per day: 0.5 Smoking cigarettes per day: 10.0 Years smoked: 20 Smoking pack-years: 10.00 Smoking status: Former smoker Tobacco type: cigarettes Second hand tobacco smoke exposure: No Alcohol intake: former Alcohol use details: Former beer drinker. Substance use: never Substance use type: does not use Lack of Transportation: No Lack of Food: Never True Current Housing: I Have Housing Concerned About Future Housing: No Difficulty Paying Gas/Electric Bills: No Difficulty Paying for Meds: No Currently Unemployed: No Education: Associate Degree Difficulty w/ Childcare or Family Care: No Additional living arrangements comments: Resides in [place] with his and s
[2022-06-09] MEDS: CYCLOBENZAPRINE HCL 10 MG TABLET PO (19:03)
[2022-06-09] MEDS: KETOROLAC 15 MG/ML VIAL (*BKC) IV PUSH (19:04)
[2022-06-09] MEDS: LIDOCAINE 5% PATCH 1 PATCH TRANSDERM (19:04)
[2022-06-09] MEDS: HYDROcodone/acetaminophen (*CRX) 10-325 MG TABLET 1 TAB PO (19:56)
== END 2022-06-09 21:18 | disposition home or self-care (01) ==
PROVIDERS: Emergency Provider Emergency Medicine; PCP Hospitalist
DX: S39.92XA Unspecified injury of lower back, initial encounter (principal); S09.90XA Unspecified injury of head, initial encounter; K74.60 Unspecified cirrhosis of liver; I50.30 Unspecified diastolic (congestive) heart failure; E11.9 Type 2 diabetes mellitus without complications; I11.0 Hypertensive heart disease with heart failure; D64.9 Anemia, unspecified; K21.9 Gastro-esophageal reflux disease without esophagitis; M19.90 Unspecified osteoarthritis, unspecified site; Z86.73 Personal history of transient ischemic attack (TIA), and cerebral infarction without residual deficits; Z85.6 Personal history of leukemia; Z85.46 Personal history of malignant neoplasm of prostate; Z87.442 Personal history of urinary calculi; Z87.891 Personal history of nicotine dependence; W01.0XXA Fall on same level from slipping, tripping and stumbling without subsequent striking against object, initial encounter
CPT/HCPCS: 70450; 72170; 96374; 99284; A9270; J1885

== ENCOUNTER 2022-06-10 14:09 | Inpatient (IN) | payer OTHER, SELFPAY ==
[2022-06-10] VITALS (18 sets, daily range): BP systolic 116–149; BP diastolic 67–87; PULSE 89–111; RESP 12–24; TEMP 36.4–37.1; O2SAT 93–100; BMI 31.6
--- NOTE | ~2022-06-10 | US_ITS ---
EXAMINATION: US paracentesis abd w/image DATE: 06/11/2022 12:11 INDICATION: Ascites TECHNIQUE: The procedure and its risks and benefits were discussed with the patient. Potential risks discussed included bleeding and infection. The skin was prepped and draped in sterile fashion. 1% lid ocaine was used for local anesthesia. Under ultrasound guidance, a 5 Fr catheter with trochar was adv anced into the ascites in the left lower quadrant. Fluid was aspirated into a vacuum bottle. The cath eter was removed, and a dressing was applied. There were no immediate complications. FINDINGS: Ultrasound images demonstrate ascites and the catheter within the fluid. IMPRESSION: 1. Successful ultrasound-guided paracentesis yielding 150 mL of clear yellow fluid. Reviewed, dictated and finalized at location A. K OFFBEARER IMPRESSION: 1. Successful ultrasound-guided paracentesis yielding 150 mL of clear yellow f luid.
--- NOTE | 2022-06-10 14:19 | ECG_ITS ---
Measurements Intervals [place] Rate: 106 P: 13 IL: 165 QRS: 28 QRSD: 78 T: 52 QT: 334 QTc: 444 Interpretive Statements SINUS TACHYCARDIA NONSPECIFIC ST ABNORMALITY LOW-VOLTAGE QRS IN PRECORDIAL LEADS BORDERLINE ECG COMPARED TO ECG 05/02/2022 11:08:21 HEART RATE HAS INCREASED Electronically Signed On 06-10-2022 18:02:33 FOUNDER by Rylan Sams M.D.
--- NOTE | 2022-06-10 15:05 | PC.NURSE ---
Octreotide gtt received from pharmacy
[2022-06-10] MEDS: SODIUM CHLORIDE 0.9% IV 1,000 ML 150 ML IV CONT (15:12)
--- NOTE | 2022-06-10 15:21 | PC.NURSE ---
Patient vomited about 400cc of bloody emesis. EDP Ashly hawthorne.
[2022-06-10 15:27] LABS: Alanine Aminotransferase 17 U/L (6-50); Albumin Level 3.7 g/dL (3.5-5.1); Alkaline Phosphatase 134 U/L (38-126); Anion Gap 7 mmol/L (8-16); Aspartate Amino Transferase 28 U/L (17-59); Blood Urea Nitrogen 37 mg/dL (9-20); CRP 0.5 mg/dL (<1.0); Calcium 8.1 mg/dL (8.4-10.2); Carbon Dioxide 26 mmol/L (22-30); Chloride 102 mmol/L (98-107); Estimated CRCL calculation 85 ml/min; Estimated Glomerular Filt Rate > 60; Glucose 253 mg/dL (65-110); INR 1.3; Lipase 91 U/L (23-300); Potassium 5.2 mmol/L (3.4-5.0); Prothrombin Time 15.5 Seconds (11.1-14.7); Sodium 135 mmol/L (137-145)
[2022-06-10 15:30] LABS: Basophils Percent Auto 0.3 % (0.2-1.2); Hematocrit 24.7 % (42.0-52.0); Immature Granulocyte Absolute 0.05 K/mm3 (0.00-0.031); Immature Granulocyte Percent A 0.6 % (0-0.5); Lymphocytes Absolute Auto 0.34 K/mm3 (0.9-3.2); Lymphocytes Percent Auto 4.3 % (18.3-44.2); Mean Corpuscular HGB Conc 25.9 g/dl (32-36); Mean Corpuscular Hemoglobin 21.1 pg (26-34); Mean Corpuscular Volume 81.3 fl (80-100); Mean Platelet Volume 10.8 fl (7.4-10.4); Monocytes Absolute Auto 0.4 K/mm3 (0.1-0.6); Monocytes Percent Auto 5.6 % (2.6-8.5); Neutrophils Percent Auto 89.2 % (45.5-73.1); Platelet Count Result 171 k/mm3 (150-375); Red Blood Count 3.04 M/mm3 (4.6-6.20); Red Cell Distribution Width 17.1 % (11.5-14.5); White Blood Count 7.9 K/mm3 (4.5-10.0)
[2022-06-10 15:48] LABS: Influenza A QL RT-PCR Negative (Negative); Influenza B QL RT-PCR Negative (Negative); SARS-CoV-2 RNA PCR Negative
[2022-06-10 15:51] LABS: Hemoglobin 6.4 g/dL (14.0-18.0)
[2022-06-10 16:01] LABS: Anisocytosis 1+ (NORMAL); Hypochromasia 2+ (NORMAL); Platelet Estimate Adequate (Adequate); Schistocytes None Seen (NORMAL)
[2022-06-10] MEDS: MORPHINE SULFATE (*CRX) 4 MG/ML INJ IV PUSH (16:04)
[2022-06-10] MEDS: ONDANSETRON INJ 4 MG/2 ML VIAL IV PUSH (16:04)
--- NOTE | 2022-06-10 16:11 | ED.GENADULT ---
HPI - General Adult General Chief complaint: Nausea/Vomiting/Diarrhea Stated complaint: vomiting blood Time Seen by Provider: 06/10/22 14:12 Source: patient Mode of arrival: EMS Limitations: no limitations History of Present Illness HPI narrative: 52-year-old with a history of cirrhosis liver, esophageal varices here with complaints of vomiting blood since last few hours. Patient states that he threw up twice at home also had rectal bleeding. Complains of abdominal distention and he is scheduled for paracentesis in 2 days. He denies any chest pain or shortness of breath. No history of nausea . Patient endorses Dr. Guerin has a GI doctor. Onset (ago): hour(s) (2) Severity: moderate Quality: aching Pain Consistency: constant Exacerbating factors: none Associated symptoms: denies other symptoms Related Data Home Medications Medication Instructions Recorded Confirmed potassium chloride 20 mEq 20 meq PO DAILY 04/11/22 06/01/22 tablet,extended release(part/cryst) Allergies Allergy/AdvReac Type Severity Reaction Status Date / Time No Known Allergies Allergy Verified 04/11/22 09:39 Review of Systems Review of Systems: All systems reviewed & are unremarkable except as noted in HPI and below Constitutional: Constitutional: Reports no additional constitutional complaints Eyes: Eyes: Reports no additional eye complaints ENT: Reports system reviewed and no additional complaints, except as documented Cardiovascular: Cardiovascular: Reports no additional cardiovascular complaints Respiratory: Respiratory: Reports no additional respiratory complaints Gastrointestinal: Gastrointestinal: Reports as per HPI Musculoskeletal: Musculoskeletal: Reports no additional musculoskeletal complaints Neurologic: Reports system reviewed and no additional complaints, except as documented [facility] Past Medical History Medical History Abdominal pain Acute GI bleeding Anemia Arthritis Ascites C. difficile colitis C. difficile diarrhea Cerebrovascular accident (2004) Chest pain Chronic anemia Cirrhosis Cirrhosis of liver with ascites Diarrhea Diastolic congestive heart failure Esophageal varices Gastric ulcer Gastroesophageal reflux disease GI bleed Hematemesis Hyperglycemia Hypertension Kidney stone Leukemia In childhood. Pancreatic abnormality Pericardial effusion Noted on CT and echocardiogram in August 2020. No evidence of tamponade. Pericardial effusion Portal hypertensive gastropathy Noted on endoscopy on 03/23/[address] Duran. Prostate cancer Status post radiation seed implantation. Smoker Spontaneous bacterial peritonitis (04/2020) Syncope and collapse Tobacco dependence Tobacco use Type 2 diabetes mellitus Upper GI bleed Surgical History Surgical History H/O cystoscopy History of appendectomy History of cholecystectomy History of inguinal hernia repair History of lithotripsy History of repair of right rotator cuff Family History Family History Mother Family history of malignant neoplasm of breast in first degree relative Breast cancer Father Acute myocardial infarction Hypertension Heart disease Other Diabetes mellitus Maternal Unkle Other Family history of malignant neoplasm Social History Social History Social History: The patient has 4 children and is disabled. The youngest child is turning 8 years old. His has metastatic breast cancer. He is a former smoker. Surrogate decision maker: Myra Worley () or 1st Marnie Washington (aunt). Code status: Full code Smoking packs per day: 0.5 Smoking cigarettes per day: 10.0 Years smoked: 20 Smoking pack-years: 10.00 Smoking status: Former smoker Tobacco type: cigarettes Second hand tobacc
--- NOTE | 2022-06-10 17:15 | ADMGEN ---
This patient, Matt Worley II, was admitted to Intensive Care Unit-10. Patient/family oriented to hospital policies and general routines including ID bracelet, bed and alarms, visiting hours, pain management, procedures, bathroom and other care routines, personal items, smoking policy, room service/diet, and visiting hours. Information on how to activate the Rapid Response Team has been discussed. Patient/Family are encouraged to report perceived risks to care and to ask questions if they do not understand what they are told or what they should do.
--- NOTE | 2022-06-10 17:45 | PM.IMHP ---
H&P: HPI History of Present Illness Date/Time: 06/10/22 17:45 Chief Complaint: Bloody stool and vomit. Narrative: This is a 52-year-old male with history of cirrhosis, esophageal varices, gastric ulcers, pericardial effusion, pulmonary hypertension, diabetes, and diastolic congestive heart failure who presented to the emergency department for evaluation of bloody stools and vomit. He was nauseated upon waking this morning and shortly thereafter he had several episodes of coffee-ground emesis followed by 4 to 5 dark stools. He also complains of diffuse abdominal pain (tight, occasionally shooting) related to reaccumulation of ascites and in fact he is due for a therapeutic paracentesis tomorrow as an outpatient. No significant caffeine or alcohol use. Denies NSAID use. He has not had any significant GERD symptoms. He also denies fever, chills, sweats, recent cold and flu symptoms, chest pain, shortness a breath, lightheadedness, and dizziness. Vital signs were stable on arrival. He had a couple of dark stools while in the ED and approximately 400 cc of coffee-ground emesis. Hemoglobin and hematocrit were 6.4 and 24.7% respectively and he is currently being transfused. He has been started on octreotide and pantoprazole drips and has been admitted to the ICU for close monitoring. At the time my evaluation he is resting comfortably and has no specific complaints aside from the abdominal pain as detailed above. [facility] Past Medical History Medical History (Updated 06/10/22 @ 17:34 by Romi Leiva PA-C) Arthritis C. difficile colitis Cerebrovascular accident (2004) Chronic anemia Cirrhosis of liver with ascites Diarrhea Diastolic congestive heart failure Esophageal varices Gastric ulcer Gastroesophageal reflux disease GI bleed Hyperglycemia Hypertension Kidney stone Leukemia In childhood. Pancreatic abnormality Pericardial effusion Noted on CT and echocardiogram in August 2020. No evidence of tamponade. Portal hypertensive gastropathy Noted on endoscopy on 03/23/[address] Duran. Prostate cancer Status post radiation seed implantation. Smoker Spontaneous bacterial peritonitis (04/2020) Tobacco dependence Type 2 diabetes mellitus Surgical History Surgical History (Updated 06/10/22 @ 17:31 by Romi Leiva PA-C) History of appendectomy History of cholecystectomy History of cystoscopy History of inguinal hernia repair History of lithotripsy History of repair of right rotator cuff Family History Family History Mother Family history of malignant neoplasm of breast in first degree relative Breast cancer Father Acute myocardial infarction Hypertension Heart disease Other Diabetes mellitus Maternal Unkle Other Family history of malignant neoplasm Social History Social History (Updated 06/10/22 @ 17:31 by Romi Leiva PA-C) Social History: Surrogate decision maker: Myra Worley () or Marnie Washington (aunt). Code status: Full code Smoking packs per day: 0.5 Smoking cigarettes per day: 10.0 Years smoked: 20 Smoking pack-years: 10.00 Smoking status: Former smoker Tobacco type: cigarettes Second hand tobacco smoke exposure: No Alcohol intake: former Alcohol use details: Former beer drinker. Substance use: never Substance use type: does not use Lack of Transportation: No Lack of Food: Never True Current Housing: I Have Housing Concerned About Future Housing: No Difficulty Paying Gas/Electric Bills: No Difficulty Paying for Meds: No Currently Unemployed: No Education: Associate Degree Difficulty w/ Childcare or Family Care: No Additional living arrangements comments: Resides in [place] with his and son. 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 Spiritual care concerns: No Agree to blood products: Yes Meds Home
[2022-06-10] MEDS: HYDROmorphone HCL INJ (*CRX) 1 MG/ML SYR 0.5 MG IV PUSH (19:26)
[2022-06-10] MEDS: HYDROmorphone HCL INJ (*CRX) 1 MG/ML SYR IV PUSH (22:05)
[2022-06-10 23:38] LABS: Glucose Point of Care 170 mg/dl (65-105)
[2022-06-11] VITALS (25 sets, daily range): BP systolic 73–145; BP diastolic 42–106; PULSE 70–101; RESP 14–22; TEMP 36.1–36.8; O2SAT 88–100
[2022-06-11] MEDS: FUROSEMIDE INJ 40 MG/4 ML VIAL IV PUSH (00:56)
[2022-06-11] MEDS: HYDROmorphone HCL INJ (*CRX) 1 MG/ML SYR IV PUSH ×8 (01:00→23:43)
[2022-06-11 04:51] LABS: Basophils Percent Auto 0.7 % (0.2-1.2); Eosinophils Percent Auto 0.5 % (0-4.4); Hematocrit 25.3 % (42.0-52.0); Hemoglobin 7.2 g/dL (14.0-18.0); Immature Granulocyte Absolute 0.01 K/mm3 (0.00-0.031); Immature Granulocyte Percent A 0.2 % (0-0.5); Immature Platelet Fraction Pct 9.8 % (0.9-11.2); Lymphocytes Absolute Auto 0.98 K/mm3 (0.9-3.2); Lymphocytes Percent Auto 23.7 % (18.3-44.2); Mean Corpuscular HGB Conc 28.5 g/dl (32-36); Mean Corpuscular Hemoglobin 23.1 pg (26-34); Mean Corpuscular Volume 81.1 fl (80-100); Mean Platelet Volume 10.9 fl (7.4-10.4); Monocytes Absolute Auto 0.7 K/mm3 (0.1-0.6); Monocytes Percent Auto 16.2 % (2.6-8.5); Neutrophils Absolute Auto 2.4 K/mm3 (1.3-6.7); Neutrophils Percent Auto 58.7 % (45.5-73.1); Platelet Count Result 126 k/mm3 (150-375); Red Blood Count 3.12 M/mm3 (4.6-6.20); Red Cell Distribution Width 17.8 % (11.5-14.5); White Blood Count 4.1 K/mm3 (4.5-10.0)
[2022-06-11 05:03] LABS: Alanine Aminotransferase 13 U/L (6-50); Albumin Level 3.8 g/dL (3.5-5.1); Alkaline Phosphatase 130 U/L (38-126); Anion Gap 3 mmol/L (8-16); Aspartate Amino Transferase 25 U/L (17-59); Bilirubin,Total 2.1 mg/dL (0.2-1.3); Blood Urea Nitrogen 40 mg/dL (9-20); Calcium 8.3 mg/dL (8.4-10.2); Carbon Dioxide 30 mmol/L (22-30); Chloride 98 mmol/L (98-107); Estimated CRCL calculation 80 ml/min; Estimated Glomerular Filt Rate > 60; Glucose 139 mg/dL (65-110); Magnesium 1.8 mg/dL (1.6-2.3); Potassium 4.1 mmol/L (3.4-5.0); Sodium 131 mmol/L (137-145)
[2022-06-11 05:16] LABS: Anisocytosis 1+ (NORMAL); Hypochromasia 1+ (NORMAL); Macrocytosis 1+ (NORMAL); Platelet Estimate Adequate (Adequate); Polychromasia 1+ (NORMAL)
[2022-06-11 05:20] LABS: Schistocytes None Seen (NORMAL)
--- NOTE | 2022-06-11 07:26 | WPDGICN ---
Assessment and Plan Assessment and plan (1) Acute GI bleeding: Code(s): K92.2 - Gastrointestinal hemorrhage, unspecified Status: Acute Assessment and Plan: he came in yesterday with hematemesis of dark red blood. He states that he also passed a little blood per rectum. He has history of bleeding from esophageal varices. (2) Chronic anemia: Code(s): D64.9 - Anemia, unspecified Status: Acute Assessment and Plan: He is followed by Hematology for persistent chronic anemia. His hemoglobin runs in the sevens. (3) Cirrhosis: Qualifiers: Ascites presence: with ascites Hepatic cirrhosis type: unspecified hepatic cirrhosis Qualified Code(s): K74.60 - Unspecified cirrhosis of liver; R18.8 - Other ascites Code(s): K74.60 - Unspecified cirrhosis of liver Status: Acute Assessment and Plan: It is thought that he may have cirrhosis based on autoimmune disease because of markedly elevated MEL. He has had a pending consultation with hepatology at [facility] going back about 1 year . he does have an appointment to see someone next week. For various reasons his appointments have been canceled. He had seen 1 physician who that left town and There was no follow-up since then. (4) Ascites: Qualifiers: Ascites type: due to alcoholic hepatitis Qualified Code(s): K70.11 - Alcoholic hepatitis with ascites Code(s): R18.8 - Other ascites Status: Acute Assessment and Plan: He unfortunately developed ascites rapidly and even when it is mild and only few 100 cc are able to be removed, he presents with significant and severe abdominal pain. The reason for this we have never been able to ascertain. (5) Esophageal varices: Code(s): I85.00 - Esophageal varices without bleeding Status: Acute Assessment and Plan: He has a history of esophageal varices. He has had previous banding and previous episodes of bleeding from varices. He is on carveilol 12.5 mg b.i.d. suspecting that he is currently bleeding for varices, he has been started on octreotide. I will plan EGD on him this morning. He understands that we may need to perform banding again. He understands it could be painful afterwards, and that the procedure could actually worsen bleeding. Plan EGD with possible biopsy or dilatation or cautery or Banding of varices. continue to monitor blood counts. Transfuse as necessary. Continue octreotide through this evening. GI Consult Note Consult date/time: 06/11/22 07:26 HPI: Matt Worley II is a 52 year old male Well known to our service who has cirrhosis with portal hypertension, known esophageal varices, known ascites who has had a pending initial visit with hepatology at [facility] for many months. He is finally going to be able to see them next week. He was hospitalized just a week or so ago with abdominal pain and ascites. He had a paracentesis and went home and return to the emergency room I believe 2 days later complaining of more ascites. We have scheduled him for an outpatient paracentesis to be done today. Yesterday however he began vomiting blood in the morning. He apparently vomited 4 times including in the emergency room where he brought up quite a bit of dark red maroon blood. He states he always gets burning in the epigastric area prior to the onset of bleeding. I believe 1 day before he had emergency room because he had fallen and struck his head but he was discharged home after that. He has not been using any anti-inflammatory medications. Review of Systems Review of Systems: All systems reviewed & are unremarkable except as noted in HPI and below PMFSH Past Medical History Medical History Arthritis C. difficile colitis Cerebrovascular accident (2004) Chronic anemia Cirrhosis of liver with ascites Diarrhea Diastoli
[2022-06-11] MEDS: carvediloL 12.5 MG TABLET PO ×2 (07:55→20:37)
[2022-06-11] MEDS: PANTOPRAZOLE SODIUM IV 40 MG VIAL IV PUSH ×2 (08:00→20:37)
--- NOTE | 2022-06-11 08:54 | WPDCNINT ---
Assessment and Plan Assessment and plan (1) Hematemesis: Qualifiers: Nausea presence: with nausea Qualified Code(s): K92.0 - Hematemesis Code(s): K92.0 - Hematemesis Status: Acute Assessment and Plan: 06/10: With hematemesis and hematochezia, has a history of esophageal varices status post banding by Dr. Guerin in the past. -appreciate GI evaluation and recommendation, EGD has been planned for today on 06/11 -continue octreotide infusion -patient on Protonix q.day, will switch to Protonix IV q.12 hours -NPO for the procedure -hemodynamically stable at this time -hemoglobin 7.2 this morning after 2 units of packed RBCs, -monitor H&H (2) Hematochezia: Code(s): K92.1 - Melena Status: Acute Assessment and Plan: Could be related to esophageal variceal bleeding. -no more episodes of hematochezia since arrival to the ED -continue to monitor (3) Acute blood loss anemia: Code(s): D62 - Acute posthemorrhagic anemia Status: Acute Assessment and Plan: Patient was anemic with hemoglobin of 6.4 on admission -received 2 units of packed RBCs -INR was 1.3 -platelets 126 -continue to monitor H&H -transfuse as needed -EGD scheduled for today (4) Abdominal pain: Qualifiers: Abdominal location: generalized Qualified Code(s): R10.84 - Generalized abdominal pain Code(s): R10.9 - Unspecified abdominal pain Status: Acute Assessment and Plan: Abdominal pain likely related to tense ascites -scheduled for paracentesis today -continue ceftriaxone for possible SBP (5) Abdominal ascites: Qualifiers: Ascites type: other type Qualified Code(s): R18.8 - Other ascites Code(s): R18.8 - Other ascites Status: Acute Assessment and Plan: As above -peritoneal fluid analysis and labs have been ordered (6) Cirrhosis: Qualifiers: Ascites presence: with ascites Hepatic cirrhosis type: unspecified hepatic cirrhosis Qualified Code(s): K74.60 - Unspecified cirrhosis of liver; R18.8 - Other ascites Code(s): K74.60 - Unspecified cirrhosis of liver Status: Acute Assessment and Plan: 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 -currently patient is off -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 [facility] (7) Diastolic congestive heart failure: Qualifiers: Heart failure chronicity: chronic Qualified Code(s): I50.32 - Chronic diastolic (congestive) heart failure Code(s): I50.30 - Unspecified diastolic (congestive) heart failure Status: Acute Assessment and Plan: 04/05/2022: Echocardiogram showed EF 55% 09/13/2021: Showed grade 3 diastolic dysfunction Continue diuretics, carvedilol, holding spironolactone for now (8) Diabetes: Code(s): E11.9 - Type 2 diabetes mellitus without complications Status: Acute Assessment and Plan: Patient currently NPO for the procedure, continue Accu-Cheks and sliding scale insulin Plan DVT prophylaxis: SCDs, no chemoprophylaxis due to GI bleed Stress ulcer prophylaxis: Protonix IV q.12 hours Nutrition: NPO for the procedure/EGD Discussed with GI, endoscopy later this morning Discussed with patient updated with his condition and plan of care. Is aware that he is going to get an EGD done today. I answered all his questions Code Status: Full code Critical Care Time Spent: 45 minutes Due to a high probability of clinically significant, life threatening deterioration, the patient required my highest level of preparedness to intervene emergently and I personally spent this critical care time directly and personally managing the patient. This critical care time included obtaining a history; examining the patient; pulse oximetry; ordering and review of studies; arranging urgent treatment with development of a management plan; evaluation of patient's response to treatment; frequent reassessment; and discus
--- NOTE | 2022-06-11 09:25 | PC.NURSE ---
To GI Lab per [ uriah], IV [infusing octreotide into LAC ]. Report given to [COREY Costa ].
[2022-06-11 09:28] LABS: Albumin Level 3.6 g/dL (3.5-5.1)
[2022-06-11] MEDS: LACTATED RINGERS 1,000 ML 150 ML IV CONT (09:36)
[2022-06-11 09:39] LABS: Glucose Point of Care 167 mg/dl (65-105)
--- NOTE | 2022-06-11 09:50 | WPDANESEPPF ---
Anes - Initial Pre Proc Eval Procedure: Operation Date: 06/11/22 11:00 Proposed Procedures p Esophagogastroduodenoscopy - Carroll Guerin MD Date/Time: 06/11/22 09:50 Surgeon: Beulah Canchola DO Pre Op Diagnosis: upper gi bleed Patient Data Age: 52 Gender: M Height: 1.65 m Weight: 90.1 kg Last Vital Signs Temp 97.0 F L 06/11/22 09:34 Pulse 78 06/11/22 09:34 Resp 14 06/11/22 09:34 BP 107/96 H 06/11/22 09:34 Pulse Ox 97 06/11/22 09:34 O2 Del Method Room Air 06/11/22 09:34 Allergies Allergy/AdvReac Type Severity Reaction Status Date / Time No Known Allergies Allergy Verified 04/11/22 09:39 Home Medications Medication Instructions Recorded Confirmed Type pantoprazole 40 mg tablet,delayed 40 mg PO Q12HR #60 tabs 08/17/21 06/10/22 Rx release furosemide 40 mg tablet 40 mg PO BID #60 tabs 12/11/21 06/10/22 Rx potassium chloride 20 mEq 20 meq PO DAILY 04/11/22 06/10/22 History tablet,extended release(part/cryst) carvedilol 12.5 mg tablet (Coreg) 12.5 mg PO Q12HR #60 tabs 04/12/22 06/10/22 Rx oxycodone-acetaminophen 5 mg-325 1 tablet PO Q6H PRN Pain Rated 06/03/22 06/10/22 Rx mg tablet 4-10 #10 tabs spironolactone 50 mg tablet 100 mg PO BID #60 tabs 06/03/22 06/10/22 Rx (Aldactone) Laboratory Tests 06/10/22 06/10/22 06/10/22 15:03 15:03 15:03 WBC 7.9 K/mm3 K/mm3 (4.5-10.0) RBC 3.04 M/mm3 L M/mm3 (4.6-6.20) Hgb 6.4 g/dL L* g/dL (14.0-18.0) Hct 24.7 % L % (42.0-52.0) MCV 81.3 fl fl (80-100) MCH 21.1 pg L pg (26-34) MCHC 25.9 g/dl L g/dl (32-36) RDW 17.1 % H % (11.5-14.5) Plt Count 171 k/mm3 D k/mm3 (150-375) MPV 10.8 fl H fl (7.4-10.4) Immature Gran % (Auto) 0.6 % H % (0-0.5) Neut % (Auto) 89.2 % H % (45.5-73.1) Lymph % (Auto) 4.3 % L % (18.3-44.2) Jerome % (Auto) 5.6 % % (2.6-8.5) Eos % (Auto) 0.0 % % (0-4.4) Baso % (Auto) 0.3 % % (0.2-1.2) Lymph # (Auto) 0.34 K/mm3 L K/mm3 (0.9-3.2) Jerome # (Auto) 0.4 K/mm3 K/mm3 (0.1-0.6) Eos # (Auto) 0.0 K/mm3 K/mm3 (0-0.3) Baso # (Auto) 0.0 K/mm3 K/mm3 (0.0-0.1) Abs Immat Gran (auto) 0.05 K/mm3 H K/mm3 (0.00-0.031) Absolute Neuts (auto) 7.0 K/mm3 H K/mm3 (1.3-6.7) Absolute Nucleated RBC 0.0 K/mm3 K/mm3 (0.0-0.012) Nucleated RBC % 0.0 % % (0.0-0.2) Platelet Estimate Adequate (Adequate) % Immature Plt Fraction Polychromasia Hypochromasia 2+ (NORMAL) Anisocytosis 1+ (NORMAL) Macrocytosis Schistocytes None seen (NORMAL) PT 15.5 Seconds H Seconds (11.1-14.7) INR 1.3 Sodium 135 mmol/L L mmol/L (137-145) Potassium 5.2 mmol/L H mmol/L (3.4-5.0) Chloride 102 mmol/L mmol/L (98-107) Carbon Dioxide 26 mmol/L mmol/L (22-30) Anion Gap 7 mmol/L L mmol/L (8-16) BUN 37 mg/dL H D mg/dL (9-20) Creatinine 0.90 mg/dL mg/dL (0.7-1.3) Estim Creat Clear Calc 85 ml/min ml/min Estimated GFR > 60 (59 - ) Glucose 253 mg/dL H mg/dL (65-110) POC Capillary Glucose Lactic Acid Calcium 8.1 mg/dL L mg/dL (8.4-10.2) Magnesium Total Bilirubin 1.0 mg/dL mg/dL (0.2-1.3) Direct Bilirubin AST 28 U/L U/L (17-59) ALT 17 U/L U/L (6-50) Alkaline Phosphatase 134 U/L H U/L (38-126) C-Reactive Protein 0.5 mg/dL mg/dL (<1.0) Total Protein 7.0 g/dL g/dL (6.3-8.2) Albumin 3.7 g/dL g/dL (3.5-5.1) Lipase 91 U/L U/L (23-300) Influenza A (RT-PCR) Influenza B (RT-PCR) SARS-CoV-2 RNA (RT-PCR)
[2022-06-11 10:54] LABS: Glucose Point of Care 154 mg/dl (65-105)
--- NOTE | 2022-06-11 11:04 | PC.NURSE ---
Returned from GI Lab. Report received from [ ].
[2022-06-11 12:22] LABS: Glucose Point of Care 155 mg/dl (65-105)
[2022-06-11 12:45] LABS: Hematocrit 24.2 % (42.0-52.0)
[2022-06-11 12:47] LABS: Hemoglobin 6.9 g/dL (14.0-18.0)
[2022-06-11 13:07] LABS: Appearance Peritoneal Fluid Hazy (Clear); Color Peritoneal Fluid Yellow (Colorless); Source Peritoneal Fluid Peritoneal Fluid
[2022-06-11 13:08] LABS: Lymphocytes Peritoneal Fluid 19 %; Macrophages Peritoneal Fluid 60 %; Mesothelial Cells Peritoneal Fluid 16 %; Neutrophils Peritoneal Fluid 5 % (0-25); Nucleated Cells Peritoneal Flu 260 /uL (0-500); RBC Peritoneal Fluid 1073 /uL (0-100000)
[2022-06-11] MEDS: FUROSEMIDE 40 MG TABLET PO ×2 (13:08→16:52)
[2022-06-11] MEDS: SODIUM CHLORIDE 0.9% IV 250 ML 30 ML IV CONT (15:14)
[2022-06-11 16:10] LABS: Glucose Point of Care 230 mg/dl (65-105)
[2022-06-11] MEDS: INSULIN ASPART (*BKC) 100 UNITS/ML SUB-Q (16:52)
--- NOTE | 2022-06-11 18:00 | PC.NURSE ---
This patient, Matt Worley II, was transferred to [ 256] on 06/11/22 at 1800. Personal belongings sent with patient. Report given to [COREY Edwards @ [phone] ]. Appropriate documentation sent with patient.
--- NOTE | 2022-06-11 18:02 | PM.IMPN ---
Progress Note: A&P Assessment and Plan (1) Hematemesis: Qualifiers: Nausea presence: with nausea Qualified Code(s): K92.0 - Hematemesis Code(s): K92.0 - Hematemesis Status: Acute Assessment and Plan: 06/10: With hematemesis and hematochezia, has a history of esophageal varices status post banding by Dr. Guerin in the past. -appreciate GI evaluation and recommendation, EGD has been planned for today on 06/11 -continue octreotide infusion -patient on Protonix q.day, will switch to Protonix IV q.12 hours -NPO for the procedure -hemodynamically stable at this time -hemoglobin 7.2 this morning after 2 units of packed RBCs, -monitor H&H 06/11/2022 interval history: 52-year-old male with history of liver cirrhosis esophageal varices presented with melena and hematemesis was seen by GI and had a EGD and showed nonbleeding esophageal varix 1 of the varix was banded with was no acute bleeding, currently patient's hemoglobin is 6.9 patient is given 1 unit of pack RBC, will continue to monitor, patient denies any abdominal pain nausea or vomiting,. (2) Hematochezia: Code(s): K92.1 - Melena Status: Acute Assessment and Plan: Could be related to esophageal variceal bleeding. -no more episodes of hematochezia since arrival to the ED -continue to monitor (3) Acute blood loss anemia: Code(s): D62 - Acute posthemorrhagic anemia Status: Acute Assessment and Plan: Patient was anemic with hemoglobin of 6.4 on admission -received 2 units of packed RBCs -INR was 1.3 -platelets 126 -continue to monitor H&H -transfuse as needed -EGD scheduled for today (4) Abdominal pain: Qualifiers: Abdominal location: generalized Qualified Code(s): R10.84 - Generalized abdominal pain Code(s): R10.9 - Unspecified abdominal pain Status: Acute Assessment and Plan: Abdominal pain likely related to tense ascites -scheduled for paracentesis today -continue ceftriaxone for possible SBP (5) Abdominal ascites: Qualifiers: Ascites type: other type Qualified Code(s): R18.8 - Other ascites Code(s): R18.8 - Other ascites Status: Acute Assessment and Plan: As above -peritoneal fluid analysis and labs have been ordered (6) Cirrhosis: Qualifiers: Ascites presence: with ascites Hepatic cirrhosis type: unspecified hepatic cirrhosis Qualified Code(s): K74.60 - Unspecified cirrhosis of liver; R18.8 - Other ascites Code(s): K74.60 - Unspecified cirrhosis of liver Status: Acute Assessment and Plan: 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 -currently patient is off -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 [facility] (7) Diastolic congestive heart failure: Qualifiers: Heart failure chronicity: chronic Qualified Code(s): I50.32 - Chronic diastolic (congestive) heart failure Code(s): I50.30 - Unspecified diastolic (congestive) heart failure Status: Acute Assessment and Plan: 04/05/2022: Echocardiogram showed EF 55% 09/13/2021: Showed grade 3 diastolic dysfunction Continue diuretics, carvedilol, holding spironolactone for now (8) Diabetes: Code(s): E11.9 - Type 2 diabetes mellitus without complications Status: Acute Assessment and Plan: Patient currently NPO for the procedure, continue Accu-Cheks and sliding scale insulin Subjective Date/time seen: 06/11/22 18:02 HPI-Narrative: This is a 52-year-old male with history of cirrhosis, esophageal varices, gastric ulcers, pericardial effusion, pulmonary hypertension, diabetes, and diastolic congestive heart failure who presented to the emergency department for evaluation of bloody stools and vomit. He was nauseated upon waking this morning and shortly thereafter he had several episodes of coffee-ground emesis followed by 4 to 5 dark stools. He also complains of diffuse abdominal pain (tight, occasional
--- NOTE | 2022-06-11 18:37 | PC.NURSE ---
This patient, Matt Worley II, was received from ICU on 06/11/22 at 1825. Report taken from Beth. Patient/family oriented to unit policies and routines
[2022-06-11 20:04] LABS: Hematocrit 29.7 % (42.0-52.0); Hemoglobin 8.8 g/dL (14.0-18.0)
[2022-06-11 20:35] LABS: Glucose Point of Care 77 mg/dl (65-105)
[2022-06-12] MEDS: oxyCODONE/ACETAMINOPHEN (*CRX) 5-325 MG TABLET 1 TABLET PO ×3 (03:04→16:07)
[2022-06-12 05:57] LABS: Basophils Absolute Auto 0.1 K/mm3 (0.0-0.1); Basophils Percent Auto 1.4 % (0.2-1.2); Eosinophils Absolute Auto 0.1 K/mm3 (0-0.3); Eosinophils Percent Auto 1.9 % (0-4.4); Hematocrit 28.5 % (42.0-52.0); Hemoglobin 8.4 g/dL (14.0-18.0); Immature Granulocyte Absolute 0.02 K/mm3 (0.00-0.031); Immature Granulocyte Percent A 0.5 % (0-0.5); Immature Platelet Fraction Pct 11.4 % (0.9-11.2); Lymphocytes Absolute Auto 0.68 K/mm3 (0.9-3.2); Lymphocytes Percent Auto 18.4 % (18.3-44.2); Mean Corpuscular HGB Conc 29.5 g/dl (32-36); Mean Corpuscular Hemoglobin 23.9 pg (26-34); Mean Platelet Volume 11.3 fl (7.4-10.4); Monocytes Absolute Auto 0.6 K/mm3 (0.1-0.6); Monocytes Percent Auto 16.3 % (2.6-8.5); Neutrophils Absolute Auto 2.3 K/mm3 (1.3-6.7); Neutrophils Percent Auto 61.5 % (45.5-73.1); Platelet Count Result 131 k/mm3 (150-375); Red Blood Count 3.52 M/mm3 (4.6-6.20); Red Cell Distribution Width 17.9 % (11.5-14.5); White Blood Count 3.7 K/mm3 (4.5-10.0)
[2022-06-12 06:00] VITALS: BP 127/75; PULSE 70; RESP 18; TEMP 36.4; O2SAT 97
[2022-06-12] MEDS: HYDROmorphone HCL INJ (*CRX) 1 MG/ML SYR IV PUSH ×4 (06:09→23:01)
[2022-06-12 06:22] LABS: Alanine Aminotransferase 15 U/L (6-50); Albumin Level 3.4 g/dL (3.5-5.1); Alkaline Phosphatase 128 U/L (38-126); Anion Gap 5 mmol/L (8-16); Aspartate Amino Transferase 36 U/L (17-59); Bilirubin,Total 0.8 mg/dL (0.2-1.3); Blood Urea Nitrogen 33 mg/dL (9-20); Carbon Dioxide 32 mmol/L (22-30); Chloride 95 mmol/L (98-107); Estimated CRCL calculation 73 ml/min; Estimated Glomerular Filt Rate > 60; Glucose 162 mg/dL (65-110); Magnesium 1.7 mg/dL (1.6-2.3); Phosphorus 4.3 mg/dL (2.5-4.5); Potassium 3.5 mmol/L (3.4-5.0); Sodium 132 mmol/L (137-145)
[2022-06-12 08:17] LABS: Glucose Point of Care 148 mg/dl (65-105)
[2022-06-12 08:19] VITALS: PULSE 76; RESP 18; O2SAT 97
[2022-06-12] MEDS: carvediloL 12.5 MG TABLET PO ×2 (08:19→19:46)
[2022-06-12] MEDS: FUROSEMIDE 40 MG TABLET PO ×2 (08:19→16:07)
[2022-06-12 08:45] LABS: Anisocytosis 1+ (NORMAL); Hypochromasia 2+ (NORMAL); Platelet Estimate Adequate (Adequate); Schistocytes None Seen (NORMAL)
[2022-06-12] MEDS: PANTOPRAZOLE 40 MG TABLET PO (09:55)
--- NOTE | 2022-06-12 10:50 | WPDGIPROGNO ---
Progress Note: A&P Assessment and Plan (1) Acute GI bleeding: Code(s): K92.2 - Gastrointestinal hemorrhage, unspecified Status: Acute Assessment and Plan: he came in yesterday with hematemesis of dark red blood. He states that he also passed a little blood per rectum. He has history of bleeding from esophageal varices. EGD did reveal esophageal varices. Only 1 of them was protuberant. There was no classic sign of recent bleeding but I did band that large 1 as distally as possible at the GE junction. He has passed a tarry stool today. His hemoglobin is stable but he is concerned as I am that he could still possibly be bleeding. (2) Chronic anemia: Code(s): D64.9 - Anemia, unspecified Status: Acute Assessment and Plan: He is followed by Hematology for persistent chronic anemia. His hemoglobin runs in the sevens. (3) Cirrhosis: Qualifiers: Ascites presence: with ascites Hepatic cirrhosis type: unspecified hepatic cirrhosis Qualified Code(s): K74.60 - Unspecified cirrhosis of liver; R18.8 - Other ascites Code(s): K74.60 - Unspecified cirrhosis of liver Status: Acute Assessment and Plan: It is thought that he may have cirrhosis based on autoimmune disease because of markedly elevated MEL. He has had a pending consultation with hepatology at [facility] going back about 1 year . he does have an appointment to see someone next week. For various reasons his appointments have been canceled. He had seen 1 physician who that left town and There was no follow-up since then. 06/12/2022 he has an appointment next week with hepatology at [facility]. (4) Ascites: Qualifiers: Ascites type: due to alcoholic hepatitis Qualified Code(s): K70.11 - Alcoholic hepatitis with ascites Code(s): R18.8 - Other ascites Status: Acute Assessment and Plan: He unfortunately developed ascites rapidly and even when it is mild and only few 100 cc are able to be removed, he presents with significant and severe abdominal pain. The reason for this we have never been able to ascertain. Radiology was able to remove about 150 mL. They told that there was not much ascites in there. I explained him that having recently increased his diuretic doses, that I thought that he would be needing paracentesis much less often. Diagnostic studies on the ascitic fluid are pending but will likely confirm transudate. (5) Esophageal varices: Code(s): I85.00 - Esophageal varices without bleeding Status: Acute Assessment and Plan: He has a history of esophageal varices. He has had previous banding and previous episodes of bleeding from varices. He is on carveilol 12.5 mg b.i.d. suspecting that he is currently bleeding for varices, he has been started on octreotide. I will plan EGD on him this morning. He understands that we may need to perform banding again. He understands it could be painful afterwards, and that the procedure could actually worsen bleeding. 06/12/2022 1 varix banded yesterday. He is mildly uncomfortable substernally from that but able to eat regular food today without problems. Plan EGD with possible biopsy or dilatation or cautery or Banding of varices. continue to monitor blood counts. Transfuse as necessary. Continue octreotide through this evening. 06/12/2022 from my perspective he could go home this evening or tomorrow morning if his counts remain stable. Subjective Date/time seen: 06/12/22 10:50 No further evidence of bleeding. He is tolerating his diet. Matt Worley II is a 52 year old male ? Well known to our service who has cirrhosis with portal hypertension, known esophageal varices, known ascites who has had a pending initial visit with hepatology at [facility] for many months.? He is finally going to be able to see them next week.? He was hospitalized just a week or so a
[2022-06-12 12:16] LABS: Glucose Point of Care 256 mg/dl (65-105)
[2022-06-12] MEDS: INSULIN ASPART (*BKC) 100 UNITS/ML SUB-Q (12:18)
--- NOTE | 2022-06-12 12:23 | WPDANESPN ---
Anes - Prog Note Post-Op Date/Time: 06/12/22 12:23 Vital Signs: Last Vital Signs Temp 36.4 C 06/12/22 06:00 Pulse 76 06/12/22 08:19 Resp 18 06/12/22 08:19 BP 127/75 06/12/22 06:00 Pulse Ox 97 06/12/22 08:19 O2 Del Method Room Air 06/12/22 08:19 Pain Score (VAS): 0 I/O: Intake & Output 06/11/22 06/12/22 06/12/22 23:59 07:59 15:59 Intake Total 350 600 530 Output Total 200 900 Balance 150 -300 530 Laboratory Tests 06/12/22 05:37 06/12/22 05:37 06/10/22 06/11/22 06/11/22 16:05 11:47 12:31 WBC RBC Hgb 6.9 L* Hct 24.2 L MCV MCH MCHC RDW Plt Count MPV Immature Gran % (Auto) Neut % (Auto) Lymph % (Auto) Elbert % (Auto) Eos % (Auto) Baso % (Auto) Lymph # (Auto) Elbert # (Auto) Eos # (Auto) Baso # (Auto) Abs Immat Gran (auto) Absolute Neuts (auto) Absolute Nucleated RBC Nucleated RBC % Platelet Estimate % Immature Plt Fraction Hypochromasia Anisocytosis Schistocytes Sodium Potassium Chloride Carbon Dioxide Anion Gap BUN Creatinine Estim Creat Clear Calc Estimated GFR Glucose POC Capillary Glucose Calcium Phosphorus Magnesium Total Bilirubin AST ALT Alkaline Phosphatase Total Protein Albumin Peritoneal Source Peritoneal fluid Peritoneal Color Yellow Peritoneal Appearance Hazy A Peritoneal RBC 1073 Periton Nuc Cells 260 Periton Neutrophils 5 Periton Lymphocytes 19 Periton Mesothelial 16 Periton Macrophages 60 Blood Type AB Positive Antibody Screen Positive Antibody Identification Anti-c Antigen Identification Cancelled ISAURO, IgG Interpret Negative ISAURO, Complement Interp Negative Enhanced Crossmatch See Detail 06/11/22 06/11/22 06/11/22 16:07 19:49 20:33 WBC RBC Hgb 8.8 L Hct 29.7 L MCV MCH MCHC RDW Plt Count MPV Immature Gran % (Auto) Neut % (Auto) Lymph % (Auto) Elbert % (Auto) Eos % (Auto) Baso % (Auto) Lymph # (Auto) Elbert # (Auto) Eos # (Auto) Baso # (Auto) Abs Immat Gran (auto) Absolute Neuts (auto) Absolute Nucleated RBC Nucleated RBC % Platelet Estimate % Immature Plt Fraction Hypochromasia Anisocytosis Schistocytes Sodium Potassium Chloride Carbon Dioxide Anion Gap BUN Creatinine Estim Creat Clear Calc Estimated GFR Glucose POC Capillary Glucose 230 H 77 Calcium Phosphorus Magnesium Total Bilirubin AST ALT Alkaline Phosphatase Total Protein Albumin Peritoneal Source Peritoneal Color Peritoneal Appearance Peritoneal RBC Periton Nuc Cells Periton Neutrophils Periton Lymphocytes Periton Mesothelial Periton Macrophages Blood Type Antibody Screen Antibody Identification Antigen Identification ISAURO, IgG Interpret ISAURO, Complement Interp Enhanced Crossmatch 06/12/22 06/12/22 06/12/22 05:37 05:37 08:11 WBC 3.7 L RBC 3.52 L Hgb 8.4 L Hct 28.5 L MCV 81.0 MCH 23.9 L MCHC 29.5 L RDW 17.9 H Plt Count 131 L MPV 11.3 H Immature Gran % (Auto) 0.5 Neut % (Auto) 61.5 Lymph % (Auto) 18.4 Elbert % (Auto) 16.3 H Eos % (Auto) 1.9 Baso % (Auto) 1.4 H Lymph # (Auto) 0.68 L Elbert # (Auto) 0.6 Eos # (Auto) 0.1 Baso # (Auto) 0.1 Abs Immat Gran (auto) 0.02 Absolute Neuts (auto) 2.3 Absolute Nucleated RBC 0.0 Nucleated RBC % 0.0 Platelet Estimate Adequate % Immature Plt Fraction 11.4 H Hypochromasia 2+ Anisocytosis 1+ Schistocytes None seen Sodium 132 L Potassium 3.5 Chloride 95 L Carbon Dioxide 32 H Anion Gap 5 L BUN 33 H Creatinine 1.10 Estim Creat Clear Calc 73 Estimated GFR > 60 Glucose 162 H POC Capillary Gl
[2022-06-12 16:20] VITALS: BP 118/70; PULSE 75; RESP 18; TEMP 36.2; O2SAT 98
[2022-06-12 16:53] LABS: Glucose Point of Care 180 mg/dl (65-105)
--- NOTE | 2022-06-12 18:32 | PM.IMPN ---
Progress Note: A&P Assessment and Plan (1) Hematemesis: Qualifiers: Nausea presence: with nausea Qualified Code(s): K92.0 - Hematemesis Code(s): K92.0 - Hematemesis Status: Acute Assessment and Plan: 06/10: With hematemesis and hematochezia, has a history of esophageal varices status post banding by Dr. Guerin in the past. -appreciate GI evaluation and recommendation, EGD has been planned for today on 06/11 -continue octreotide infusion -patient on Protonix q.day, will switch to Protonix IV q.12 hours -NPO for the procedure -hemodynamically stable at this time -hemoglobin 7.2 this morning after 2 units of packed RBCs, -monitor H&H 06/12/2022 interval history: 52-year-old male with history of liver cirrhosis esophageal varices presented with melena and hematemesis was seen by GI and had a EGD and showed nonbleeding esophageal varix 1 of the varix was banded there was no acute bleeding, on 06/11 patient's hemoglobin was 6.9 patient was given 1 unit of pack RBC, today patient Hgb is 8.8, patient is seen by GI today, will continue to monitor one more day and possibly discharge tomorrow. , patient denies any abdominal pain nausea or vomiting,. (2) Hematochezia: Code(s): K92.1 - Melena Status: Acute Assessment and Plan: Could be related to esophageal variceal bleeding. -no more episodes of hematochezia since arrival to the ED -continue to monitor (3) Acute blood loss anemia: Code(s): D62 - Acute posthemorrhagic anemia Status: Acute Assessment and Plan: Patient was anemic with hemoglobin of 6.4 on admission -received 2 units of packed RBCs -INR was 1.3 -platelets 126 -continue to monitor H&H -transfuse as needed -EGD scheduled for today (4) Abdominal pain: Qualifiers: Abdominal location: generalized Qualified Code(s): R10.84 - Generalized abdominal pain Code(s): R10.9 - Unspecified abdominal pain Status: Acute Assessment and Plan: Abdominal pain likely related to tense ascites -scheduled for paracentesis today -continue ceftriaxone for possible SBP (5) Abdominal ascites: Qualifiers: Ascites type: other type Qualified Code(s): R18.8 - Other ascites Code(s): R18.8 - Other ascites Status: Acute Assessment and Plan: As above -peritoneal fluid analysis and labs have been ordered (6) Cirrhosis: Qualifiers: Ascites presence: with ascites Hepatic cirrhosis type: unspecified hepatic cirrhosis Qualified Code(s): K74.60 - Unspecified cirrhosis of liver; R18.8 - Other ascites Code(s): K74.60 - Unspecified cirrhosis of liver Status: Acute Assessment and Plan: 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 -currently patient is off -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 [facility] (7) Diastolic congestive heart failure: Qualifiers: Heart failure chronicity: chronic Qualified Code(s): I50.32 - Chronic diastolic (congestive) heart failure Code(s): I50.30 - Unspecified diastolic (congestive) heart failure Status: Acute Assessment and Plan: 04/05/2022: Echocardiogram showed EF 55% 09/13/2021: Showed grade 3 diastolic dysfunction Continue diuretics, carvedilol, holding spironolactone for now (8) Diabetes: Code(s): E11.9 - Type 2 diabetes mellitus without complications Status: Acute Assessment and Plan: Patient currently NPO for the procedure, continue Accu-Cheks and sliding scale insulin Subjective Date/time seen: 06/12/22 18:32 06/12/2022 interval history: 52-year-old male with history of liver cirrhosis esophageal varices presented with melena and hematemesis was seen by GI and had a EGD and showed nonbleeding esophageal varix 1 of the varix was banded there was no acute bleeding, on 06/11 patient's hemoglobin was 6.9 patient was given 1 unit of pack RBC, today patient Hgb is 8.8, patient is seen by GI to
[2022-06-12 19:46] VITALS: PULSE 80
[2022-06-12 21:51] LABS: Glucose Point of Care 189 mg/dl (65-105)
[2022-06-12 22:45] VITALS: BP 118/65; PULSE 78; RESP 18; TEMP 36.2; O2SAT 96
[2022-06-13] MEDS: HYDROmorphone HCL INJ (*CRX) 1 MG/ML SYR IV PUSH ×5 (01:59→15:04)
[2022-06-13 06:00] VITALS: BP 118/64; PULSE 80; RESP 20; TEMP 36.2; O2SAT 98
[2022-06-13] MEDS: oxyCODONE/ACETAMINOPHEN (*CRX) 5-325 MG TABLET 1 TABLET PO (06:05)
[2022-06-13 08:04] LABS: Glucose Point of Care 128 mg/dl (65-105)
[2022-06-13 08:15] VITALS: BP 115/67; PULSE 76; RESP 17; O2SAT 96
[2022-06-13 08:16] VITALS: PULSE 74
[2022-06-13] MEDS: PANTOPRAZOLE 40 MG TABLET PO (08:16)
[2022-06-13] MEDS: carvediloL 12.5 MG TABLET PO (08:16)
[2022-06-13] MEDS: FUROSEMIDE 40 MG TABLET PO (08:16)
[2022-06-13 11:51] LABS: Glucose Point of Care 301 mg/dl (65-105)
[2022-06-13] MEDS: INSULIN ASPART (*BKC) 100 UNITS/ML SUB-Q (12:04)
[2022-06-13 12:11] LABS: Hematocrit 28.9 % (42.0-52.0); Hemoglobin 8.3 g/dL (14.0-18.0)
[2022-06-13 13:40] VITALS: BP 110/57; PULSE 76; RESP 18; TEMP 36.5; O2SAT 99
--- NOTE | 2022-06-13 14:20 | PM.DS ---
DS: Admitting Diagnosis Discharge Date 06/13/2022 Admitting Diagnosis Bloody stool and vomit. DS: Discharge Diagnosis Discharge Diagnosis (1) Hematemesis: Qualifiers: Nausea presence: with nausea Qualified Code(s): K92.0 - Hematemesis Code(s): K92.0 - Hematemesis Status: Acute Assessment and Plan: 06/10: With hematemesis and hematochezia, has a history of esophageal varices status post banding by Dr. Guerin in the past. -appreciate GI evaluation and recommendation, EGD has been planned for today on 06/11 -continue octreotide infusion -patient on Protonix q.day, will switch to Protonix IV q.12 hours -NPO for the procedure -hemodynamically stable at this time -hemoglobin 7.2 this morning after 2 units of packed RBCs, -monitor H&H 06/12/2022 interval history: 52-year-old male with history of liver cirrhosis esophageal varices presented with melena and hematemesis was seen by GI and had a EGD and showed nonbleeding esophageal varix 1 of the varix was banded there was no acute bleeding, on 06/11 patient's hemoglobin was 6.9 patient was given 1 unit of pack RBC, today patient Hgb is 8.8, patient is seen by GI today, will continue to monitor one more day and possibly discharge tomorrow. , patient denies any abdominal pain nausea or vomiting,. (2) Hematochezia: Code(s): K92.1 - Melena Status: Acute Assessment and Plan: Could be related to esophageal variceal bleeding. -no more episodes of hematochezia since arrival to the ED -continue to monitor (3) Acute blood loss anemia: Code(s): D62 - Acute posthemorrhagic anemia Status: Acute Assessment and Plan: Patient was anemic with hemoglobin of 6.4 on admission -received 2 units of packed RBCs -INR was 1.3 -platelets 126 -continue to monitor H&H -transfuse as needed -EGD scheduled for today (4) Abdominal pain: Qualifiers: Abdominal location: generalized Qualified Code(s): R10.84 - Generalized abdominal pain Code(s): R10.9 - Unspecified abdominal pain Status: Acute Assessment and Plan: Abdominal pain likely related to tense ascites -scheduled for paracentesis today -continue ceftriaxone for possible SBP (5) Abdominal ascites: Qualifiers: Ascites type: other type Qualified Code(s): R18.8 - Other ascites Code(s): R18.8 - Other ascites Status: Acute Assessment and Plan: As above -peritoneal fluid analysis and labs have been ordered (6) Cirrhosis: Qualifiers: Ascites presence: with ascites Hepatic cirrhosis type: unspecified hepatic cirrhosis Qualified Code(s): K74.60 - Unspecified cirrhosis of liver; R18.8 - Other ascites Code(s): K74.60 - Unspecified cirrhosis of liver Status: Acute Assessment and Plan: 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 -currently patient is off -does follow a organizational research consultant at [facility] (7) Diastolic congestive heart failure: Qualifiers: Heart failure chronicity: chronic Qualified Code(s): I50.32 - Chronic diastolic (congestive) heart failure Code(s): I50.30 - Unspecified diastolic (congestive) heart failure Status: Acute Assessment and Plan: 04/05/2022: Echocardiogram showed EF 55% 09/13/2021: Showed grade 3 diastolic dysfunction Continue diuretics, carvedilol, holding spironolactone for now (8) Diabetes: Code(s): E11.9 - Type 2 diabetes mellitus without complications Status: Acute Assessment and Plan: Patient currently NPO for the procedure, continue Accu-Cheks and sliding scale insulin DS: Summary Hospital Course Reason for hospitalization: Chief Complaint: Bloody stool and vomit. Narrative: This is a 52-year-old male with history of cirrhosis, esophageal varices, gastric ulcers, pericardial effusion, pulmonary hypertension, diabetes, and diastolic congestive heart failure who presented to the emergenc
[2022-06-13 15:46] LABS: Amylase Peritoneal Fluid <10 U/L
[2022-06-13 19:49] LABS: Glucose Peritoneal Fluid 161 mg/dL; LDH Peritoneal Fluid 46 U/L (<63); Total Protein Peritoneal Fluid <3.0 g/dL
== END 2022-06-13 16:40 | disposition home or self-care (01) ==
LOC: ANHED 16:20 → ANHICU 18:14 → ANH2MED 06-12 15:12 → ANHICU 06-17 14:08
PROVIDERS: Internal Medicine; Internal Medicine Gastroenterology; Physician Assistant; Admitting Provider Student in an Organized Health Care Education/Training Program; Emergency Provider Family Medicine; PCP Hospitalist; Visit Provider Family Medicine
PROC: 0DJ08ZZ Inspection of Upper Intestinal Tract, Via Natural or Artificial Opening Endoscopic (ICD-10-PCS; CPT 43235; principal; 2022-06-11 11:00)
DX: K74.60 Unspecified cirrhosis of liver (principal); I85.11 Secondary esophageal varices with bleeding; K92.0 Hematemesis; I27.20 Pulmonary hypertension, unspecified; I11.0 Hypertensive heart disease with heart failure; I50.32 Chronic diastolic (congestive) heart failure; K76.6 Portal hypertension; D62 Acute posthemorrhagic anemia; R18.8 Other ascites; K31.89 Other diseases of stomach and duodenum; K92.1 Melena; K21.9 Gastro-esophageal reflux disease without esophagitis; Z20.822 Contact with and (suspected) exposure to COVID-19; E11.9 Type 2 diabetes mellitus without complications; Z86.73 Personal history of transient ischemic attack (TIA), and cerebral infarction without residual deficits; Z87.11 Personal history of peptic ulcer disease; Z87.442 Personal history of urinary calculi; Z85.6 Personal history of leukemia; Z85.46 Personal history of malignant neoplasm of prostate; Z87.891 Personal history of nicotine dependence
CPT/HCPCS: 36415; 36430; 49083; 80048; 80053; 80076; 82040; 82042; 82150; 82945; 82948; 83605; 83615; 83690; 83735; 84100; 84157; 85014; 85018; 85025; 85055; 85610; 86140; 86850; 86880; 86900; 86901; 86902; 86922; 87070; 87075; 87205; 87636; 88108; 88305; 89051; 93005; 96365; 96375; 99285; A9270; C9113; J0696; J1170; J1815; J1940; J2270; J2354; J2405; J2704; J7030; J7050; J7120; P9016

== ENCOUNTER 2022-07-03 12:07 | Emergency (ER) | payer OTHER, SELFPAY ==
[2022-07-03 12:07] VITALS: BP 170/114; PULSE 104; RESP 20; TEMP 36.4; O2SAT 100
--- NOTE | 2022-07-03 12:24 | ED.GIBLEED ---
HPI - GI Bleed General Chief complaint: GI Bleed Stated complaint: GI bleed Time Seen by Provider: 07/03/22 12:20 Source: patient and EMS Mode of arrival: EMS History of Present Illness HPI Narrative: Patient is 52 years old white male came to the emergency room by ambulance because he noticed black stool at 3 AM. He denies any fever chills nausea vomiting diarrhea, constipation. No alcohol intake, patient requested pain medication for his bili. History of narcotic abuse. Related Data Home Medications Medication Instructions Recorded Confirmed potassium chloride 20 mEq 20 meq PO DAILY 04/11/22 06/10/22 tablet,extended release(part/cryst) Allergies Allergy/AdvReac Type Severity Reaction Status Date / Time No Known Allergies Allergy Verified 04/11/22 09:39 Review of Systems Review of Systems: All systems reviewed & are unremarkable except as noted in HPI and below PMFSH Past Medical History Medical History Arthritis C. difficile colitis Cerebrovascular accident (2004) Chronic anemia Cirrhosis of liver with ascites Diarrhea Diastolic congestive heart failure Esophageal varices Gastric ulcer Gastroesophageal reflux disease GI bleed Hyperglycemia Hypertension Kidney stone Leukemia In childhood. Pancreatic abnormality Pericardial effusion Noted on CT and echocardiogram in August 2020. No evidence of tamponade. Portal hypertensive gastropathy Noted on endoscopy on 03/23/[address] Duran. Prostate cancer Status post radiation seed implantation. Smoker Spontaneous bacterial peritonitis (04/2020) Tobacco dependence Type 2 diabetes mellitus Surgical History Surgical History History of appendectomy History of cholecystectomy History of cystoscopy History of inguinal hernia repair History of lithotripsy History of repair of right rotator cuff Family History Family History Mother Family history of malignant neoplasm of breast in first degree relative Breast cancer Father Acute myocardial infarction Hypertension Heart disease Other Diabetes mellitus Maternal Unkle Other Family history of malignant neoplasm Social History Social History Social History: Surrogate decision maker: Myra Worley () or Marnie Washington (aunt). Code status: Full code Smoking packs per day: 0.5 Smoking cigarettes per day: 10.0 Years smoked: 20 Smoking pack-years: 10.00 Smoking status: Former smoker Tobacco type: cigarettes Second hand tobacco smoke exposure: No Alcohol intake: former Alcohol use details: Former beer drinker. Substance use: never Substance use type: does not use Lack of Transportation: No Lack of Food: Never True Current Housing: I Have Housing Concerned About Future Housing: No Difficulty Paying Gas/Electric Bills: No Difficulty Paying for Meds: No Currently Unemployed: No Education: Associate Degree Difficulty w/ Childcare or Family Care: No Additional living arrangements comments: Resides in [place] with his and son. 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 Spiritual care concerns: No Agree to blood products: Yes Exam Narrative: General appearance: Well-developed, well-nourished Skin: Normal color Head: Normocephalic, nontraumatic Eyes: Clear conjunctiva ENT: Oropharynx normal, ears normal, nose normal Neck: Supple, nontender Chest and respiratory: Airway patent, no respiratory distress, no accessory muscle use Heart: Regular rate/rhythm Abdomen: Soft, slight diffuse tenderness, ascites,, no organomegaly, quiet bowel sounds rectal exam, liquidy yellow stool, guaiac neck Vascular: Normal peripheral pulses, normal capillary refill. Musculoskeletal:
[2022-07-03 12:44] LABS: Basophils Percent Auto 0.9 % (0.2-1.2); Eosinophils Percent Auto 0.9 % (0-4.4); Hemoglobin 12.3 g/dL (14.0-18.0); Immature Granulocyte Absolute 0.01 K/mm3 (0.00-0.031); Immature Granulocyte Percent A 0.3 % (0-0.5); Immature Platelet Fraction Pct 12.5 % (0.9-11.2); Lymphocytes Absolute Auto 0.64 K/mm3 (0.9-3.2); Lymphocytes Percent Auto 18.6 % (18.3-44.2); Mean Corpuscular Hemoglobin 23.2 pg (26-34); Mean Corpuscular Volume 77.2 fl (80-100); Monocytes Absolute Auto 0.3 K/mm3 (0.1-0.6); Monocytes Percent Auto 9.3 % (2.6-8.5); Neutrophils Absolute Auto 2.4 K/mm3 (1.3-6.7); Red Blood Count 5.31 M/mm3 (4.6-6.20); Red Cell Distribution Width 25.6 % (11.5-14.5); White Blood Count 3.4 K/mm3 (4.5-10.0)
[2022-07-03 12:48] LABS: INR 1.2; Prothrombin Time 14.4 Seconds (11.1-14.7)
[2022-07-03 12:52] LABS: Alanine Aminotransferase 56 U/L (6-50); Albumin Level 3.6 g/dL (3.5-5.1); Alkaline Phosphatase 1079 U/L (38-126); Anion Gap 8 mmol/L (8-16); Aspartate Amino Transferase 246 U/L (17-59); Bilirubin,Total 2.5 mg/dL (0.2-1.3); Blood Urea Nitrogen 20 mg/dL (9-20); Calcium 7.8 mg/dL (8.4-10.2); Carbon Dioxide 25 mmol/L (22-30); Chloride 103 mmol/L (98-107); Estimated CRCL calculation 74 ml/min; Estimated Glomerular Filt Rate > 60; Glucose 156 mg/dL (65-110); Potassium 4.5 mmol/L (3.4-5.0); Sodium 136 mmol/L (137-145)
[2022-07-03 12:54] LABS: Magnesium 1.8 mg/dL (1.6-2.3)
[2022-07-03 13:16] VITALS: BP 150/97; PULSE 98; RESP 24; O2SAT 96
[2022-07-03 13:26] LABS: Anisocytosis 3+ (NORMAL); Hypochromasia 1+ (NORMAL); Microcytosis 1+ (NORMAL); Target Cells 1+ (NORMAL)
[2022-07-03 13:27] LABS: Schistocytes None Seen (NORMAL); Stomatocytes 1+ (NORMAL)
[2022-07-03 13:46] VITALS: BP 160/99; PULSE 102; RESP 16; O2SAT 97
[2022-07-03] MEDS: ONDANSETRON INJ 4 MG/2 ML VIAL IV PUSH (13:49)
[2022-07-03] MEDS: MORPHINE SULFATE (*CRX) 4 MG/ML INJ IV PUSH (13:50)
[2022-07-03 14:10] VITALS: BP 159/97; PULSE 97; RESP 16; O2SAT 97
== END 2022-07-03 14:10 | disposition home or self-care (01) ==
LOC: ANHED 14:08
PROVIDERS: Emergency Provider Emergency Medicine; PCP Hospitalist
DX: R10.9 Unspecified abdominal pain (principal); G89.29 Other chronic pain; R18.8 Other ascites; R74.01 Elevation of levels of liver transaminase levels; K74.60 Unspecified cirrhosis of liver; I50.30 Unspecified diastolic (congestive) heart failure; I11.0 Hypertensive heart disease with heart failure; E11.9 Type 2 diabetes mellitus without complications; K21.9 Gastro-esophageal reflux disease without esophagitis; D64.9 Anemia, unspecified; Z87.442 Personal history of urinary calculi; Z85.6 Personal history of leukemia; Z85.46 Personal history of malignant neoplasm of prostate; Z86.73 Personal history of transient ischemic attack (TIA), and cerebral infarction without residual deficits; Z92.3 Personal history of irradiation; Z87.891 Personal history of nicotine dependence
CPT/HCPCS: 36415; 80053; 83735; 85025; 85055; 85610; 86850; 86880; 86900; 86901; 86902; 96374; 96375; 99284; J2270; J2405

== ENCOUNTER 2022-07-16 11:39 | Inpatient (IN) | payer OTHER, SELFPAY ==
[2022-07-16] VITALS (7 sets, daily range): BP systolic 133–165; BP diastolic 85–103; PULSE 80–116; RESP 13–20; TEMP 36.3–36.7; O2SAT 98–100
--- NOTE | ~2022-07-16 | XR_ITS ---
EXAMINATION: XR chest 1V portable DATE: 07/16/2022 14:39 INDICATION: Abdominal pain. Jaundice. TECHNIQUE: A single frontal view of the chest was obtained. COMPARISON: Chest single view 06/01/2022, CT abdomen and pelvis 07/16/2022 FINDINGS: There is mild elevation of left hemidiaphragm. No pneumonia, pleural effusion, or pneumotho rax. The heart size is normal. IMPRESSION: 1. No acute cardiopulmonary disease. Reviewed, dictated and finalized at location A. CORRECTIONAL
--- NOTE | ~2022-07-16 | CT_ITS ---
EXAMINATION: CT abdomen pelvis w con DATE: 07/16/2022 13:23 INDICATION: Left lower quadrant abdominal pain TECHNIQUE: Computed tomography (CT) of the abdomen and pelvis was performed without intravenous contr ast. Automated exposure control and iterative reconstruction technique were employed. The dose-length product was 1036.62 mGy-cm. COMPARISON: CT dated 06/01/2022 FINDINGS: Elevation the left hemidiaphragm with mild left basilar atelectasis. Cardiomegaly. No pericardial or pleural effusion. Diffuse hepatic steatosis with geographic region of focal fatty sparing at the junc tion of segments IVb and V of the liver. There is a nodular liver surface contour consistent with cir rhosis. Cholecystectomy clips the gallbladder fossa. Mild dilation of the main portal vein which radha ures up to 2.1 cm in diameter and enlargement of the spleen which measures up to 16.7 cm craniocaudal length and paraesophageal varices, all consistent with portal venous hypertension. Pancreas, bilater al adrenal glands and right kidney are normal. 2 mm nonobstructing stone at a lower pole calyx of the left kidney. Interval increase in a now moderate to large amount of ascites throughout the abdomen a nd pelvis shows extending through a small umbilical hernia. Dropped clip in the left hemipelvis. Appe ndix not visualized and there is a suture line at the tip of the cecum consistent with prior appendec delphine. There is diffuse edematous wall thickening of the colon most prominent proximally which could b e due to colitis or hepatic colopathy. No bowel obstruction. Decompressed bladder is unremarkable. No abscess or free intraperitoneal gas. No pathologically enlarged abdominal or pelvic lymphadenopathy. Small amount of nonhemodynamically significant atherosclerotic plaque along the abdominal aorta and bilateral internal iliac arteries. Chronic compression fractures at T11-T12 and mild to moderate lumb ar spondylosis. Mild bilateral hip osteoarthritis with prominent subarticular cystic change at the le ft acetabulum. IMPRESSION: 1. Cirrhosis and diffuse hepatic steatosis with focal sparing at the junction of segments IVb and V o f the liver or 2. Portal venous hypertension with splenomegaly, dilation of the main portal vein and paraesophageal varices. 3. Moderate to large amount of ascites also likely related to cirrhosis with extension of ascites int o a small umbilical hernia. 4. Diffuse colonic wall thickening which could be due to hepatic colopathy or colitis which could be infectious, inflammatory or less likely ischemic in etiology. 5. 2 mm nonobstructing left renal stone. 6. Cardiomegaly with resolution of prior pericardial effusion. Reviewed, dictated and finalized at location A. MAKER IMPRESSION: 1. Cirrhosis and diffuse hepatic steatosis with focal sparing at the junction o f segments IVb and V of the liver or 2. Portal venous hypertension with splenomegaly, dilation of the main portal ve in and paraesophageal varices. 3. Moderate to large amount of ascites also likely related to cirrhosis with ex tension of ascites into a small umbilical hernia. 4. Diffuse colonic wall thickening which could be due to hepatic colopathy or c olitis which could be infectious, inflammatory or less likely ischemic in etiol ogy. 5. 2 mm nonobstructing left renal stone. 6. Cardiomegaly with resolution of prior pericardial effusion.
--- NOTE | ~2022-07-16 | US_ITS ---
EXAMINATION: US paracentesis abd w/image DATE: 07/16/2022 14:33 INDICATION: Ascites. TECHNIQUE: The procedure and its risks and benefits were discussed with the patient. Potential risks discussed included bleeding and infection. The skin was prepped and draped in sterile fashion. 1% lid ocaine was used for local anesthesia. Under ultrasound guidance, a 5 Fr catheter with trochar was adv anced into the ascites in the right lower quadrant. Fluid was aspirated into vacuum bottles. The cath eter was removed, and a dressing was applied. There were no immediate complications. FINDINGS: Ultrasound images demonstrate ascites and the catheter within the fluid. IMPRESSION: 1. Successful ultrasound-guided paracentesis yielding 4800 mL of clear yellow fluid. Reviewed, dictated and finalized at location A. ODIAN MANAGER
[2022-07-16 12:11] LABS: Basophils Percent Auto 0.3 % (0.2-1.2); Eosinophils Percent Auto 0.5 % (0-4.4); Hematocrit 35.2 % (42.0-52.0); Hemoglobin 10.5 g/dL (14.0-18.0); Immature Granulocyte Absolute 0.07 K/mm3 (0.00-0.031); Immature Granulocyte Percent A 1.1 % (0-0.5); Immature Platelet Fraction Pct 10.8 % (0.9-11.2); Lymphocytes Absolute Auto 0.69 K/mm3 (0.9-3.2); Lymphocytes Percent Auto 10.4 % (18.3-44.2); Mean Corpuscular HGB Conc 29.8 g/dl (32-36); Mean Corpuscular Hemoglobin 26.4 pg (26-34); Mean Corpuscular Volume 88.7 fl (80-100); Monocytes Absolute Auto 0.8 K/mm3 (0.1-0.6); Monocytes Percent Auto 12.7 % (2.6-8.5); Platelet Count Result 99 k/mm3 (150-375); Red Blood Count 3.97 M/mm3 (4.6-6.20); Red Cell Distribution Width 33.5 % (11.5-14.5); White Blood Count 6.6 K/mm3 (4.5-10.0)
[2022-07-16 12:20] LABS: Alanine Aminotransferase 45 U/L (6-50); Albumin Level 2.7 g/dL (3.5-5.1); Anion Gap 5 mmol/L (8-16); Aspartate Amino Transferase 273 U/L (17-59); Bilirubin,Total 9.7 mg/dL (0.2-1.3); Blood Urea Nitrogen 14 mg/dL (9-20); Calcium 7.6 mg/dL (8.4-10.2); Carbon Dioxide 29 mmol/L (22-30); Chloride 100 mmol/L (98-107); Estimated CRCL calculation 61 ml/min; Estimated Glomerular Filt Rate > 60; Glucose 176 mg/dL (65-110); Sodium 134 mmol/L (137-145)
[2022-07-16 12:21] LABS: INR 1.2; Prothrombin Time 14.3 Seconds (11.1-14.7)
[2022-07-16 12:22] LABS: Partial Thromboplastin Time 29.8 SECONDS (22.3-36.8)
[2022-07-16 12:29] LABS: Anisocytosis 1+ (NORMAL); Hypochromasia 1+ (NORMAL); Platelet Estimate Decreased (Adequate); Poikilocytosis 1+ (NORMAL); Schistocytes None Seen (NORMAL)
--- NOTE | 2022-07-16 12:30 | ED.GENADULT ---
HPI - General Adult General Chief complaint: Abdominal Pain Stated complaint: ABD PAIN Time Seen by Provider: 07/16/22 11:59 History of Present Illness HPI narrative: this is a 52-year-old male with history of alcoholic liver cirrhosis presenting to the ED with and distended abdomen. Patient says that starting at 3:00 a.m. this morning started to have sharp/crampy abdominal pain that is worse in left lower quadrant. It is 9 out 10 intensity and constant. He has experienced this many times in the past when he needs a paracentesis. He has taken Tylenol with no relief. There are no exacerbating or alleviating factors. Patient also notes that he has had melanotic stools and some nausea but no vomiting. He denies fever, chills, chest pain, shortness of breath. He is no longer drinking. Related Data Home Medications Medication Instructions Recorded Confirmed potassium chloride 20 mEq 20 meq PO DAILY 04/11/22 06/10/22 tablet,extended release(part/cryst) Allergies Allergy/AdvReac Type Severity Reaction Status Date / Time No Known Allergies Allergy Verified 07/16/22 11:55 [facility] Past Medical History Medical History Arthritis C. difficile colitis Cerebrovascular accident (2004) Chronic anemia Cirrhosis of liver with ascites Diarrhea Diastolic congestive heart failure Esophageal varices Gastric ulcer Gastroesophageal reflux disease GI bleed Hyperglycemia Hypertension Kidney stone Leukemia In childhood. Pancreatic abnormality Pericardial effusion Noted on CT and echocardiogram in August 2020. No evidence of tamponade. Portal hypertensive gastropathy Noted on endoscopy on 03/23/[address] Duran. Prostate cancer Status post radiation seed implantation. Smoker Spontaneous bacterial peritonitis (04/2020) Tobacco dependence Type 2 diabetes mellitus Surgical History Surgical History History of appendectomy History of cholecystectomy History of cystoscopy History of inguinal hernia repair History of lithotripsy History of repair of right rotator cuff Family History Family History Mother Family history of malignant neoplasm of breast in first degree relative Breast cancer Father Acute myocardial infarction Hypertension Heart disease Other Diabetes mellitus Maternal Unkle Other Family history of malignant neoplasm Social History Social History Social History: Surrogate decision maker: Myra Worley () or Marnie Washington (aunt). Code status: Full code Smoking packs per day: 0.5 Smoking cigarettes per day: 10.0 Years smoked: 20 Smoking pack-years: 10.00 Smoking status: Former smoker Tobacco type: cigarettes Second hand tobacco smoke exposure: No Alcohol intake: former Alcohol use details: Former beer drinker. Substance use: never Substance use type: does not use Lack of Transportation: No Lack of Food: Never True Current Housing: I Have Housing Concerned About Future Housing: No Difficulty Paying Gas/Electric Bills: No Difficulty Paying for Meds: No Currently Unemployed: No Education: Associate Degree Difficulty w/ Childcare or Family Care: No Living arrangements: with family Additional living arrangements comments: Resides in [place] with his and son. 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 Spiritual care concerns: No Agree to blood products: Yes Exam Narrative: APPEARANCE: NO APPARENT DISTRESS. HEAD: ATRAUMATIC. EYES: EOMI, NOSE: ATRAUMATIC NECK: TRACHEA MIDLINE RESPIRATORY: NO INCREASED RATE OF BREATHING, CLEAR TO AUSCULTATION BILATERALLY CARDIOVASCULAR: TACHYCARDIC ABDOMINAL: DISTENDED, MILD TENDERNESS I
--- NOTE | 2022-07-16 12:33 | ECG_ITS ---
Measurements Intervals [place] Rate: 103 P: 35 NC: 173 QRS: 22 QRSD: 66 T: 4 QT: 325 QTc: 427 Interpretive Statements SINUS TACHYCARDIA NONSPECIFIC T-WAVE ABNORMALITY ABNORMAL RHYTHM ECG COMPARED TO ECG 06/10/2022 14:34:44 NO SIGNIFICANT CHANGES Electronically Signed On 07-16-2022 15:06:34 CAMPUS ADMINISTRATOR by Andre Valdez M.D.
[2022-07-16 12:50] LABS: Alkaline Phosphatase 1371 U/L (38-126)
[2022-07-16] MEDS: SODIUM CHLORIDE 0.9% IV 2,000 ML 999 ML IV CONT (12:57)
[2022-07-16] MEDS: ONDANSETRON INJ 4 MG/2 ML VIAL IV PUSH (12:57)
[2022-07-16 12:58] LABS: Glucose Point of Care 148 mg/dl (65-105)
[2022-07-16] MEDS: HYDROmorphone HCL INJ (*CRX) 1 MG/ML SYR 0.5 MG IV PUSH ×2 (12:58→16:30)
[2022-07-16 13:16] LABS: Lactic Acid Reflex 1.3 mmol/L (0.7-2.0)
[2022-07-16 13:54] LABS: Magnesium 1.4 mg/dL (1.6-2.3)
[2022-07-16 14:01] LABS: Lipase 53 U/L (23-300)
[2022-07-16 14:48] LABS: Appearance Urine Clear (Clear); Bilirubin Urine 3+ (Negative); Blood Urine Trace-intact (Negative); Color Urine Orange (Yellow); Glucose Urine UA Negative (Negative); Ketones Urine Trace mg/dL (Negative); Leukocyte Esterase Ur Negative LEU/UL (Negative); Nitrate Urine Negative (Negative); Protein Urine 1+ mg/dL (Negative)
[2022-07-16 14:54] LABS: Bacteria Urine Trace /hpf; RBC Urine 0-2 /hpf (0-2); WBC Urine 0-3 /hpf
[2022-07-16] MEDS: cefTRIAXone 2 GM in SODIUM CHLORIDE 0.9% IV 100 ML 200 ML IVPB (14:54)
[2022-07-16 14:55] LABS: Add Urine Microscopic? YES
[2022-07-16] MEDS: MORPHINE SULFATE (*CRX) 4 MG/ML INJ IV PUSH ×3 (15:00→22:26)
--- NOTE | 2022-07-16 15:19 | PC.NURSE ---
pt started itching after administration of ceftriaxone. gave 25mg of Benadryl per Dr. Zych. RANGEL.
[2022-07-16] MEDS: diphenhydrAMINE HCl INJ 50 MG/ML VIAL 25 MG IV PUSH (15:22)
[2022-07-16 15:29] LABS: Influenza A QL RT-PCR Negative (Negative); Influenza B QL RT-PCR Negative (Negative); SARS-CoV-2 RNA PCR Negative
[2022-07-16] MEDS: MAGNESIUM SULF 2 GM/WATER 50ML 2 GM/50 ML BAG IVPB (16:04)
--- NOTE | 2022-07-16 16:15 | PM.IMHP ---
H&P: HPI History of Present Illness Date/Time: 07/16/22 16:15 Chief Complaint: Abdominal pain Narrative: This is a 52-year-old male patient who has a history of alcoholic liver cirrhosis. The patient stated that he has been to a bed placement coordinator in [place] but feels that he has only seen the fellow resident there and has not seen his doctor yet. The patient says that he started to have a sharp crampy abdominal pain worse on the left lower quadrant around 3:00 a.m. this morning. He is rating his pain 9/10. He took his Tylenol without any relief. The patient also noted that he has been having some melanotic stools and some nausea but no vomiting. He denies any fever or chills the patient is very jaundiced including the skin layer of his eyes. CT of the abdomen was read as the following? Cirrhosis and diffuse hepatic steatosis with focal sparing at the junction of segments IVb and V of the liver or 2. Portal venous hypertension with splenomegaly, dilation of the main portal vein and paraesophageal varices. 3. Moderate to large amount of ascites also likely related to cirrhosis with extension of ascites into a small umbilical hernia. 4. Diffuse colonic wall thickening which could be due to hepatic colopathy or colitis which could be infectious, inflammatory or less likely ischemic in etiology. 5. 2 mm nonobstructing left renal stone. 6. Cardiomegaly with resolution of prior pericardial effusion. Paracentesis ultrasound? Successful ultrasound-guided paracentesis yielding 4800 mL of clear yellow fluid. The patient stated much relief after he had the paracentesis Chest x-ray was read as no acute cardiopulmonary disease. The patient was started on ceftriaxone for the possibility of spontaneous bacterial peritonitis. He was also given Zofran, IV fluids, Dilaudid and Benadryl. Initially the patient was admitted to observation then changed to observation status on the date of service of 07/16/2022. Review of Systems Review of Systems: See HPI All systems reviewed & are unremarkable except as noted in HPI and below Constitutional: Constitutional: Reports as per HPI and Reports no additional constitutional complaints Eyes: Eyes: Reports as per HPI and Reports no additional eye complaints ENT: Reports system reviewed and no additional complaints, except as documented and Reports Normal hearing present Cardiovascular: Cardiovascular: Reports no additional cardiovascular complaints Respiratory: Respiratory: Reports no additional respiratory complaints and Reports no additional respiratory complaints Gastrointestinal: Gastrointestinal: Reports as per HPI and Reports no additional gastrointestinal complaints Musculoskeletal: Musculoskeletal: Reports no additional musculoskeletal complaints Integumentary/Breasts: Skin/Breast: Reports system reviewed and no additional complaints, except as docu and Reports as per HPI Neurologic: Reports system reviewed and no additional complaints, except as documented, Reports as per HPI and Reports Normal hearing present Psychiatric: Psychiatric: Reports no additional psychiatric complaints and Reports as per HPI Endocrine: Endocrine: Reports no additional endocrine complaints Hematologic/Lymphatic: Hematologic/Lymphatic: Reports no additional hematologic/lymphatic complaints Allergic/Immunologic: Allergic/Immunologic: Reports no additional allergic/immunologic complaints [facility] Past Medical History Medical History Arthritis C. difficile colitis Cerebrovascular accident (2004) Chronic anemia Cirrhosis of liver with ascites Diarrhea Diastolic congestive heart failure Esophageal varices Gastric ulcer Gastroesophageal reflux disease GI bleed Hyperglycemia Hypertension Kidney stone Leukemia In childhood. Pancreatic abnormality Pericardial effusion Noted on CT and echocardiogram in August 2020. No evidence of tamponade. Portal hypertensive gastropathy
--- NOTE | 2022-07-16 17:01 | ADMGEN ---
This patient, Matt Worley II, was admitted to [facility] Surg Room 325-02. Patient/family oriented to hospital policies and general routines including ID bracelet, bed and alarms, visiting hours, pain management, procedures, bathroom and other care routines, personal items, smoking policy, room service/diet, and visiting hours. Information on how to activate the Rapid Response Team has been discussed. Patient/Family are encouraged to report perceived risks to care and to ask questions if they do not understand what they are told or what they should do.
[2022-07-16] MEDS: LACTATED RINGERS 1,000 ML 125 ML IV CONT (17:23)
[2022-07-16 19:07] LABS: Appearance Peritoneal Fluid Hazy (Clear); Color Peritoneal Fluid Yellow (Colorless); Lymphocytes Peritoneal Fluid 13 %; Macrophages Peritoneal Fluid 73 %; Mesothelial Cells Peritoneal Fluid 10 %; Neutrophils Peritoneal Fluid 4 % (0-25); Nucleated Cells Peritoneal Flu 83 /uL (0-500); RBC Peritoneal Fluid 290 /uL (0-100000); Source Peritoneal Fluid Peritoneal Fluid
[2022-07-16] MEDS: HYDROcodone/acetaminophen (*CRX) 5-325 MG TABLET 1 TAB PO (19:54)
[2022-07-16] MEDS: carvediloL 12.5 MG TABLET PO (22:28)
[2022-07-16] MEDS: SPIRONOLACTONE 50 MG TABLET 100 MG PO (22:29)
[2022-07-16] MEDS: PANTOPRAZOLE 40 MG TABLET PO (22:29)
[2022-07-16 22:39] LABS: Hematocrit 31.5 % (42.0-52.0); Hemoglobin 9.6 g/dL (14.0-18.0)
[2022-07-17] MEDS: LORazepam INJ (*CRX) 2 MG/ML VIAL 0.5 MG IV PUSH
[2022-07-17] MEDS: MORPHINE SULFATE (*CRX) 4 MG/ML INJ IV PUSH ×3 (03:14→12:20)
[2022-07-17] MEDS: cefTRIAXone 2 GM in SODIUM CHLORIDE 0.9% IV 100 ML 200 ML IVPB ×2 (05:10→17:20)
[2022-07-17 05:45] LABS: Ammonia 13 umol/L (9-30)
[2022-07-17 06:00] VITALS: BP 98/62; PULSE 77; RESP 18; TEMP 36.1; O2SAT 97
[2022-07-17 06:10] LABS: Basophils Percent Auto 0.4 % (0.2-1.2); Eosinophils Absolute Auto 0.1 K/mm3 (0-0.3); Eosinophils Percent Auto 3.4 % (0-4.4); Hematocrit 28.3 % (42.0-52.0); Hemoglobin 8.5 g/dL (14.0-18.0); Immature Granulocyte Absolute 0.02 K/mm3 (0.00-0.031); Immature Granulocyte Percent A 0.7 % (0-0.5); Immature Platelet Fraction Pct 10.8 % (0.9-11.2); Lymphocytes Absolute Auto 0.62 K/mm3 (0.9-3.2); Lymphocytes Percent Auto 23.2 % (18.3-44.2); Mean Corpuscular Hemoglobin 27.3 pg (26-34); Mean Platelet Volume 9.9 fl (7.4-10.4); Monocytes Absolute Auto 0.3 K/mm3 (0.1-0.6); Monocytes Percent Auto 10.5 % (2.6-8.5); Neutrophils Absolute Auto 1.7 K/mm3 (1.3-6.7); Neutrophils Percent Auto 61.8 % (45.5-73.1); Platelet Count Result 61 k/mm3 (150-375); Red Blood Count 3.11 M/mm3 (4.6-6.20); White Blood Count 2.7 K/mm3 (4.5-10.0)
[2022-07-17 06:19] LABS: Lactic Acid Reflex 0.6 mmol/L (0.7-2.0)
[2022-07-17 06:25] LABS: Alanine Aminotransferase 36 U/L (6-50); Albumin Level 2.1 g/dL (3.5-5.1); Alkaline Phosphatase 1011 U/L (38-126); Anion Gap 2 mmol/L (8-16); Aspartate Amino Transferase 231 U/L (17-59); Bilirubin,Total 7.7 mg/dL (0.2-1.3); Blood Urea Nitrogen 10 mg/dL (9-20); Calcium 7.3 mg/dL (8.4-10.2); Carbon Dioxide 27 mmol/L (22-30); Chloride 102 mmol/L (98-107); Estimated CRCL calculation 67 ml/min; Estimated Glomerular Filt Rate > 60; Glucose 103 mg/dL (65-110); Lipase 27 U/L (23-300); Magnesium 1.7 mg/dL (1.6-2.3); Potassium 3.2 mmol/L (3.4-5.0); Sodium 131 mmol/L (137-145)
[2022-07-17] MEDS: HYDROcodone/acetaminophen (*CRX) 5-325 MG TABLET 1 TAB PO ×3 (06:34→20:39)
[2022-07-17 07:28] LABS: Anisocytosis 3+ (NORMAL); Hypochromasia 1+ (NORMAL); Platelet Estimate Decreased (Adequate); Schistocytes None Seen (NORMAL); Stomatocytes 2+ (NORMAL)
[2022-07-17 08:26] VITALS: PULSE 80
[2022-07-17] MEDS: carvediloL 12.5 MG TABLET PO ×2 (08:26→20:38)
[2022-07-17] MEDS: POTASSIUM CHLORIDE 20 MEQ TABLET.ER PO (08:26)
[2022-07-17] MEDS: FUROSEMIDE 40 MG TABLET PO (08:26)
[2022-07-17] MEDS: SPIRONOLACTONE 50 MG TABLET 100 MG PO ×2 (08:26→16:06)
[2022-07-17] MEDS: PANTOPRAZOLE 40 MG TABLET PO ×2 (08:26→20:41)
[2022-07-17 11:44] LABS: Hematocrit 30.3 % (42.0-52.0); Hemoglobin 8.8 g/dL (14.0-18.0)
[2022-07-17] MEDS: FUROSEMIDE INJ 40 MG/4 ML VIAL IV PUSH ×2 (12:03→16:07)
[2022-07-17] MEDS: POTASSIUM CHLORIDE 20 MEQ PACKET (FOR LIQUID) 40 MEQ PO (12:06)
[2022-07-17 14:00] VITALS: BP 101/69; PULSE 79; RESP 16; TEMP 36.2; O2SAT 99
--- NOTE | 2022-07-17 16:20 | PM.IMPN ---
Progress Note: A&P Assessment and Plan (1) Abdominal ascites: Code(s): R18.8 - Other ascites Status: Acute Assessment and Plan: -the patient had a paracentesis today and he had 4800 mL removed today. The patient stated that he was feeling much better. It was noted that it was clear yellow. It is highly unlikely that it is SBP however the ER covered him with Rocephin in the event that it was SBP Cultures have been obtained for the possibility of SBP. Continue spironolactone -continue with Lasix. 07/17/2022 interval history: patient with liver cirrhosis and recurrent ascites requiring paracentesis presented with enlarged ascites with complaint of shortness of breath and severe pain, patient was seen intervention radiology and patient had paracentesis upon arrival and 4800cc was collected, patient states the pain is getting better and not as short of breath, patient has a long history of liver cirrhosis had been seen by underground roof bolter at [facility] and patient is noncompliant with his follow-up with specialist and his alkaline phosphatase is very high, will request patient to follow-up with his underground roof bolter as possible. patient not in acute distress and does not need to be transferred to the [facility] hospital, I have started the patient IV Lasix will continue spironolactone to further diurese the patient place the patient fluid restriction 1600cc daily will monitor. (2) Cirrhosis of liver: Code(s): K74.60 - Unspecified cirrhosis of liver Status: Acute Assessment and Plan: -the patient is jaundiced. He has yellow skin and sclera. The patient needs to follow up with tertiary care that has a underground roof bolter. The patient stated that he did follow-up with hepatology and he only saw all the fellow resident physicians and not the regular physician. He stated that they joslyn some labs and have not treated him with anything as of yet. -I explained to the patient that sometimes people with cirrhosis of the liver may receive a pigtail that allows them to drain the belly when needed. He stated that he was going to check into this. I explained that this would decrease the amount of admissions. (3) Jaundice: Code(s): R17 - Unspecified jaundice Status: Acute Assessment and Plan: Check ammonia level in the a.m.. A.m.-GI has been consulted. However it is highly recommended that the patient follow-up with his underground roof bolter (4) Chronic anemia: Code(s): D64.9 - Anemia, unspecified Status: Acute Assessment and Plan: The patient stated that he has melanotic stools. This sounds like it is a chronic thing for him. -continue with p.o. pantoprazole (5) Acute GI bleeding: Code(s): K92.2 - Gastrointestinal hemorrhage, unspecified Status: Acute Assessment and Plan: -GI has been consulted. His previous H&H was 12.3 and 41.0 and today it is 10.5 and 35.2. The patient states that he has melanotic stools. However this appears to be a chronic thing. Continue with pantoprazole. -H&H every 6 hours. (6) Diastolic congestive heart failure: Qualifiers: Heart failure chronicity: chronic Qualified Code(s): I50.32 - Chronic diastolic (congestive) heart failure Code(s): I50.30 - Unspecified diastolic (congestive) heart failure Status: Acute Assessment and Plan: -continue with Coreg -continue with Lasix -continue with spironolactone. -last echo was on 04/11/2022 within EF of 50 diff 55%. At that time he had a pericardial effusion which has since resolved. (7) GI bleed: Code(s): K92.2 - Gastrointestinal hemorrhage, unspecified Status: Acute Assessment and Plan: Check H&H every 6 hours -check stool for occult blood. Subjective Date/time seen: 07/17/22 16:20 Abdominal pain Narrative: This is a 52-year-old male patient who has a history of alcoholic liver cirrhosis.? The patient stated that he has been to a underground roof bolter in [place]
[2022-07-17 17:25] LABS: Hemoglobin 9.2 g/dL (14.0-18.0)
[2022-07-17] MEDS: LORazepam (*CRX) 0.5 MG TABLET PO (18:48)
[2022-07-17 20:38] VITALS: PULSE 92
[2022-07-17 22:00] VITALS: BP 94/57; PULSE 86; RESP 16; TEMP 36.3; O2SAT 98
[2022-07-17] MEDS: oxyCODONE/ACETAMINOPHEN (*CRX) 5-325 MG TABLET 1 TABLET PO (23:51)
--- NOTE | 2022-07-18 04:40 | PC.NURSE ---
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 Instructed pt to walk in adams, move around. Refuses to wear SCD's Pt states that he walked in adams. Unwitnessed. Pt argumentative about fluid restriction and discontinuation of dilaudid and morphine. Gave norco. Notified CHEESE PRODUCTION SUPERVISOR Nava of patient's frequent complaints. ZANA Vick d/c'd the norco and ordered oxy as he takes at home as per the chart. Told pt about the change and would bring in medication when approved per pharmacy. This nurse went to give pt medication and pt sleeping/ snoring. Had to say pt name loudly x2 and touch pt in order for him to wake up
[2022-07-18 06:00] VITALS: BP 95/52; PULSE 72; RESP 16; TEMP 35.8; O2SAT 97
[2022-07-18] MEDS: oxyCODONE/ACETAMINOPHEN (*CRX) 5-325 MG TABLET 1 TABLET PO ×2 (06:04→11:31)
[2022-07-18 06:44] LABS: Hematocrit 29.3 % (42.0-52.0); Hemoglobin 8.6 g/dL (14.0-18.0); Mean Corpuscular HGB Conc 29.4 g/dl (32-36); Mean Corpuscular Hemoglobin 27.5 pg (26-34); Mean Corpuscular Volume 93.6 fl (80-100); Platelet Count Result 66 k/mm3 (150-375); Red Blood Count 3.13 M/mm3 (4.6-6.20); White Blood Count 2.5 K/mm3 (4.5-10.0)
--- NOTE | 2022-07-18 06:50 | PC.NURSE ---
Pt refused 0600 ceftriaxone- pt received in ER and had adverse reaction- itching. Pt states that his home dosage of oxy is 5mg every 4 hours. According to the home medication record- states every 6 hours. Explained this to pt as to why medication ordered every 6 hours. Pt upset. Pt again mentioned his discontinuation of medication and fluid restriction. Emotional support given to pt.
[2022-07-18 06:59] LABS: Albumin Level 2.2 g/dL (3.5-5.1); Anion Gap 1 mmol/L (8-16); Blood Urea Nitrogen 10 mg/dL (9-20); Calcium 7.4 mg/dL (8.4-10.2); Carbon Dioxide 29 mmol/L (22-30); Chloride 101 mmol/L (98-107); Estimated CRCL calculation 66 ml/min; Estimated Glomerular Filt Rate > 60; Glucose 108 mg/dL (65-110); Magnesium 1.6 mg/dL (1.6-2.3); Potassium 3.9 mmol/L (3.4-5.0); Sodium 131 mmol/L (137-145)
[2022-07-18 09:08] VITALS: PULSE 77
[2022-07-18] MEDS: SPIRONOLACTONE 50 MG TABLET 100 MG PO (09:08)
[2022-07-18] MEDS: POTASSIUM CHLORIDE 20 MEQ TABLET.ER PO (09:08)
[2022-07-18] MEDS: carvediloL 12.5 MG TABLET PO (09:08)
[2022-07-18] MEDS: FUROSEMIDE INJ 40 MG/4 ML VIAL IV PUSH (09:09)
[2022-07-18] MEDS: PANTOPRAZOLE 40 MG TABLET PO (09:09)
--- NOTE | 2022-07-18 11:20 | PM.DS ---
DS: Admitting Diagnosis Discharge Date 07/18/2022 Admitting Diagnosis abdominal pain DS: Discharge Diagnosis Discharge Diagnosis (1) Abdominal ascites: Code(s): R18.8 - Other ascites Status: Acute Assessment and Plan: -the patient had a paracentesis today and he had 4800 mL removed today. The patient stated that he was feeling much better. It was noted that it was clear yellow. It is highly unlikely that it is SBP however the ER covered him with Rocephin in the event that it was SBP Cultures have been obtained for the possibility of SBP. Continue spironolactone -continue with Lasix. 07/17/2022 interval history: patient with liver cirrhosis and recurrent ascites requiring paracentesis presented with enlarged ascites with complaint of shortness of breath and severe pain, patient was seen intervention radiology and patient had paracentesis upon arrival and 4800cc was collected, patient states the pain is getting better and not as short of breath, patient has a long history of liver cirrhosis had been seen by cost estimating engineer at [facility] and patient is noncompliant with his follow-up with specialist and his alkaline phosphatase is very high, will request patient to follow-up with his cost estimating engineer as possible. patient not in acute distress and does not need to be transferred to the [facility] hospital, I have started the patient IV Lasix will continue spironolactone to further diurese the patient place the patient fluid restriction 1600cc daily will monitor. (2) Cirrhosis of liver: Code(s): K74.60 - Unspecified cirrhosis of liver Status: Acute Assessment and Plan: -the patient is jaundiced. He has yellow skin and sclera. The patient needs to follow up with tertiary care that has a cost estimating engineer. The patient stated that he did follow-up with hepatology and he only saw all the fellow resident physicians and not the regular physician. He stated that they joslyn some labs and have not treated him with anything as of yet. -I explained to the patient that sometimes people with cirrhosis of the liver may receive a pigtail that allows them to drain the belly when needed. He stated that he was going to check into this. I explained that this would decrease the amount of admissions. (3) Jaundice: Code(s): R17 - Unspecified jaundice Status: Acute Assessment and Plan: Check ammonia level in the a.m.. A.m.-GI has been consulted. However it is highly recommended that the patient follow-up with his cost estimating engineer (4) Chronic anemia: Code(s): D64.9 - Anemia, unspecified Status: Acute Assessment and Plan: The patient stated that he has melanotic stools. This sounds like it is a chronic thing for him. -continue with p.o. pantoprazole (5) Acute GI bleeding: Code(s): K92.2 - Gastrointestinal hemorrhage, unspecified Status: Acute Assessment and Plan: -GI has been consulted. His previous H&H was 12.3 and 41.0 and today it is 10.5 and 35.2. The patient states that he has melanotic stools. However this appears to be a chronic thing. Continue with pantoprazole. -H&H every 6 hours. (6) Diastolic congestive heart failure: Qualifiers: Heart failure chronicity: chronic Qualified Code(s): I50.32 - Chronic diastolic (congestive) heart failure Code(s): I50.30 - Unspecified diastolic (congestive) heart failure Status: Acute Assessment and Plan: -continue with Coreg -continue with Lasix -continue with spironolactone. -last echo was on 04/11/2022 within EF of 50 diff 55%. At that time he had a pericardial effusion which has since resolved. (7) GI bleed: Code(s): K92.2 - Gastrointestinal hemorrhage, unspecified Status: Acute Assessment and Plan: Check H&H every 6 hours -check stool for occult blood. DS: Summary Hospital Course Reason for hospitalization: Abdominal pain Narrative: This is a 52-year-old male patient who huertas
[2022-07-19 20:06] LABS: Glucose Peritoneal Fluid 178 mg/dL; LDH Peritoneal Fluid 25 U/L (<63); Total Protein Peritoneal Fluid <3.0 g/dL
[2022-07-23 20:37] LABS: Amylase Peritoneal Fluid <10 U/L
[2022-07-25 18:04] LABS: Albumin Peritoneal Fluid 0.2 g/dL
--- NOTE | 2022-08-06 08:06 | WPDGICN ---
GI Consult Note Consult date/time: 08/06/22 08:06 Reason for consult: I did not see the patient this time HPI: Matt Worley II is a 52 year old male [facility] Past Medical History Medical History Arthritis C. difficile colitis Cerebrovascular accident (2004) Chronic anemia Cirrhosis of liver with ascites Diarrhea Diastolic congestive heart failure Esophageal varices Gastric ulcer Gastroesophageal reflux disease GI bleed Hyperglycemia Hypertension Kidney stone Leukemia In childhood. Pancreatic abnormality Pericardial effusion Noted on CT and echocardiogram in August 2020. No evidence of tamponade. Portal hypertensive gastropathy Noted on endoscopy on 03/23/[address] Duran. Prostate cancer Status post radiation seed implantation. Smoker Spontaneous bacterial peritonitis (04/2020) Tobacco dependence Type 2 diabetes mellitus Surgical History Surgical History History of appendectomy History of cholecystectomy History of cystoscopy History of inguinal hernia repair History of lithotripsy History of repair of right rotator cuff Family History Family History Mother Family history of malignant neoplasm of breast in first degree relative Breast cancer Father Acute myocardial infarction Hypertension Heart disease Other Diabetes mellitus Maternal Unkle Other Family history of malignant neoplasm Social History Social History Social History: The patient is disabled Surrogate decision maker: Myra Worley () or Marnie Washington (aunt). Code status: Full code Smoking packs per day: 0.5 Smoking cigarettes per day: 10.0 Years smoked: 20 Smoking pack-years: 10.00 Smoking status: Former smoker Tobacco type: cigarettes Second hand tobacco smoke exposure: No Alcohol intake: former Drinks per week: 6 Alcohol use details: Former beer drinker. Substance use: never Substance use type: does not use Lack of Transportation: No Lack of Food: Never True Current Housing: I Have Housing Concerned About Future Housing: No Difficulty Paying Gas/Electric Bills: No Difficulty Paying for Meds: No Currently Unemployed: No Education: Don't Know Difficulty w/ Childcare or Family Care: No Living arrangements: with family Additional living arrangements comments: Resides in [place] with his and son. 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 Spiritual care concerns: No Agree to blood products: Yes Meds Home Medications and Allergies Home Medications Medication Instructions Recorded Confirmed Type furosemide 40 mg tablet 40 mg PO BID #60 tabs 12/11/21 07/21/22 Rx potassium chloride 20 mEq 20 meq PO DAILY 04/11/22 07/21/22 History tablet,extended release(part/cryst) carvedilol 12.5 mg tablet (Coreg) 12.5 mg PO Q12HR #60 tabs 04/12/22 07/21/22 Rx spironolactone 50 mg tablet 100 mg PO BID #60 tabs 06/03/22 07/21/22 Rx (Aldactone) pantoprazole 40 mg tablet,delayed 40 mg PO Q12HR #60 tabs 07/09/22 07/21/22 Rx release ondansetron 4 mg disintegrating 4 mg PO Q4H PRN Nausea 07/16/22 07/21/22 History tablet Allergies Allergy/AdvReac Type Severity Reaction Status Date / Time ceftriaxone AdvReac Itching Verified 07/21/22 13:12 Results Labs 07/18/22 06:26 07/18/22 06:26
== END 2022-07-18 11:43 | disposition home or self-care (01) | DRG 280 ==
LOC: ANHED 14:18 → ANH3MEDSUR 15:59
PROVIDERS: Emergency Medicine; Nurse Practitioner; Admitting Provider Internal Medicine; Emergency Provider Emergency Medicine; PCP Hospitalist; Visit Provider Family Medicine
DX: K70.31 Alcoholic cirrhosis of liver with ascites (principal); I85.10 Secondary esophageal varices without bleeding; K76.6 Portal hypertension; I11.0 Hypertensive heart disease with heart failure; I50.32 Chronic diastolic (congestive) heart failure; D64.9 Anemia, unspecified; E11.9 Type 2 diabetes mellitus without complications; F17.210 Nicotine dependence, cigarettes, uncomplicated; K92.1 Melena; K21.9 Gastro-esophageal reflux disease without esophagitis; M19.90 Unspecified osteoarthritis, unspecified site; Z20.822 Contact with and (suspected) exposure to COVID-19; Z85.46 Personal history of malignant neoplasm of prostate; Z86.73 Personal history of transient ischemic attack (TIA), and cerebral infarction without residual deficits; Z87.11 Personal history of peptic ulcer disease; Z87.442 Personal history of urinary calculi; Z85.6 Personal history of leukemia
CPT/HCPCS: 36415; 49083; 71045; 74177; 80053; 80069; 81001; 82042; 82140; 82150; 82945; 82948; 83605; 83615; 83690; 83735; 84157; 85014; 85018; 85025; 85027; 85055; 85610; 85730; 86850; 86880; 86900; 86901; 86902; 86922; 87070; 87075; 87205; 87636; 89051; 93005; 96361; 96365; 96374; 96375; 96376; 99285; A9270; G0378; G0379; J0696; J1170; J1200; J1940; J2060; J2270; J2405; J3475; J7030; J7120; Q9967

== ENCOUNTER 2022-08-05 12:26 | Outpatient (CLI) | payer OTHER, SELFPAY ==
--- NOTE | ~2022-08-05 | US_ITS ---
EXAMINATION: US paracentesis abd w/image DATE: 08/05/2022 14:01 INDICATION: Cirrhosis and ascites TECHNIQUE: The procedure and its risks and benefits were discussed with the patient. Potential risks discussed included bleeding and infection. The skin was prepped and draped in sterile fashion. 1% lid ocaine was used for local anesthesia. Under ultrasound guidance, a 5 Fr catheter with trochar was adv anced into the ascites in the right lower quadrant. Fluid was aspirated into vacuum bottles. The cath eter was removed, and a dressing was applied. There were no immediate complications. FINDINGS: Ultrasound images demonstrate ascites and the catheter within the fluid. IMPRESSION: 1. Successful ultrasound-guided paracentesis yielding 4550 mL of cloudy yellow fluid. Reviewed, dictated and finalized at location A. RANGE OPERATOR
== END 2022-08-05 12:27 | disposition home or self-care (01) ==
PROVIDERS: PCP Hospitalist; Visit Provider Internal Medicine Gastroenterology
DX: K70.31 Alcoholic cirrhosis of liver with ascites (principal)
CPT/HCPCS: 49083

== ENCOUNTER 2022-08-15 09:18 | Outpatient (CLI) | payer OTHER, SELFPAY ==
[2022-08-15 09:41] LABS: Basophils Percent Auto 0.6 % (0.2-1.2); Eosinophils Absolute Auto 0.1 K/mm3 (0-0.3); Eosinophils Percent Auto 1.9 % (0-4.4); Hematocrit 30.8 % (42.0-52.0); Hemoglobin 8.9 g/dL (14.0-18.0); Immature Granulocyte Absolute 0.01 K/mm3 (0.00-0.031); Immature Granulocyte Percent A 0.3 % (0-0.5); Immature Platelet Fraction Pct 7.7 % (0.9-11.2); Lymphocytes Absolute Auto 0.61 K/mm3 (0.9-3.2); Lymphocytes Percent Auto 16.9 % (18.3-44.2); Mean Corpuscular HGB Conc 28.9 g/dl (32-36); Mean Corpuscular Hemoglobin 29.2 pg (26-34); Mean Platelet Volume 10.1 fl (7.4-10.4); Monocytes Absolute Auto 0.6 K/mm3 (0.1-0.6); Monocytes Percent Auto 16.6 % (2.6-8.5); Neutrophils Absolute Auto 2.3 K/mm3 (1.3-6.7); Neutrophils Percent Auto 63.7 % (45.5-73.1); Platelet Count Result 88 k/mm3 (150-375); Red Blood Count 3.05 M/mm3 (4.6-6.20); Red Cell Distribution Width 16.9 % (11.5-14.5); White Blood Count 3.6 K/mm3 (4.5-10.0)
[2022-08-15 10:01] LABS: Alanine Aminotransferase 13 U/L (6-50); Albumin Level 3.3 g/dL (3.5-5.1); Alkaline Phosphatase 342 U/L (38-126); Anion Gap 3 mmol/L (8-16); Aspartate Amino Transferase 35 U/L (17-59); Bilirubin,Total 1.1 mg/dL (0.2-1.3); Blood Urea Nitrogen 8 mg/dL (9-20); Calcium 8.5 mg/dL (8.4-10.2); Carbon Dioxide 33 mmol/L (22-30); Chloride 97 mmol/L (98-107); Cholesterol 141 mg/dL (0-200); Estimated Glomerular Filt Rate > 60; Glucose 140 mg/dL (65-110); HDL Direct 60 mg/dL; Potassium 4.8 mmol/L (3.4-5.0); Sodium 133 mmol/L (137-145); Triglycerides 90 mg/dL (<150)
[2022-08-15 10:01] LABS: Creatinine Urine 130.3 mg/dL
[2022-08-15 10:11] LABS: LDL Cholesterol Direct 52 mg/dL
[2022-08-15 11:25] LABS: Hypochromasia 1+ (NORMAL)
[2022-08-15 11:26] LABS: Poikilocytosis 1+ (NORMAL); Schistocytes None Seen (NORMAL); Stomatocytes 1+ (NORMAL)
[2022-08-15 12:27] LABS: MALB Creatinine Ratio < 4.6 mg/g (0-30); Microalbumin Urine Random < 6.0 mg/L (0-16.7)
== END 2022-08-15 09:19 | disposition home or self-care (01) ==
PROVIDERS: PCP Hospitalist; Visit Provider Hospitalist
DX: E11.59 Type 2 diabetes mellitus with other circulatory complications (principal); I15.2 Hypertension secondary to endocrine disorders; E11.69 Type 2 diabetes mellitus with other specified complication; E78.5 Hyperlipidemia, unspecified
CPT/HCPCS: 36415; 80053; 80061; 82043; 83036; 85025; 85055

== ENCOUNTER 2022-08-25 01:15 | Observation (INO) | payer OTHER, SELFPAY ==
[2022-08-25] VITALS (10 sets, daily range): BP systolic 132–159; BP diastolic 68–88; PULSE 78–93; RESP 14–20; TEMP 35.9–36.6; O2SAT 96–100
--- NOTE | ~2022-08-25 | US_ITS ---
EXAMINATION: US paracentesis abd w/image DATE: 08/25/2022 11:06 INDICATION: Ascites. TECHNIQUE: The procedure and its risks, benefits, and alternatives were discussed with the patient. P otential risks discussed included bleeding and infection. The skin was prepped and draped in sterile fashion. 1% lidocaine was used for local anesthesia. Under ultrasound guidance, a 5 Fr catheter with trochar was advanced into the ascites in the right lower quadrant. Fluid was aspirated. The catheter was removed, and a dressing was applied. There were no immediate complications. FINDINGS: Ultrasound images demonstrate ascites and the catheter within the fluid. IMPRESSION: 1. Successful ultrasound-guided paracentesis yielding 4200 mL of clear, yellow fluid. Reviewed, dictated and finalized at location A.
[2022-08-25 01:57] LABS: Appearance Urine Clear (Clear); Bilirubin Urine Negative (Negative); Blood Urine Negative (Negative); Color Urine Yellow (Yellow); Glucose Urine UA Negative (Negative); Ketones Urine Negative (Negative); Leukocyte Esterase Ur Negative LEU/UL (Negative); Nitrate Urine Negative (Negative); Protein Urine Negative (Negative); Specific Grav Ur 1.019 (1.001-1.035); Urobilinogen Urine 0.2 mg/dL (<2.0); pH Urine 5.5 (5.0-9.0)
[2022-08-25 01:58] LABS: Basophils Percent Auto 0.4 % (0.2-1.2); Eosinophils Percent Auto 1.8 % (0-4.4); Hematocrit 29.5 % (42.0-52.0); Hemoglobin 8.7 g/dL (14.0-18.0); Immature Granulocyte Absolute 0.01 K/mm3 (0.00-0.031); Immature Granulocyte Percent A 0.4 % (0-0.5); Immature Platelet Fraction Pct 7.2 % (0.9-11.2); Lymphocytes Absolute Auto 0.49 K/mm3 (0.9-3.2); Lymphocytes Percent Auto 21.5 % (18.3-44.2); Mean Corpuscular HGB Conc 29.5 g/dl (32-36); Mean Corpuscular Hemoglobin 28.3 pg (26-34); Mean Corpuscular Volume 96.1 fl (80-100); Mean Platelet Volume 10.4 fl (7.4-10.4); Monocytes Absolute Auto 0.4 K/mm3 (0.1-0.6); Monocytes Percent Auto 17.5 % (2.6-8.5); Neutrophils Absolute Auto 1.3 K/mm3 (1.3-6.7); Neutrophils Percent Auto 58.4 % (45.5-73.1); Platelet Count Result 112 k/mm3 (150-375); Red Blood Count 3.07 M/mm3 (4.6-6.20); Red Cell Distribution Width 15.9 % (11.5-14.5); White Blood Count 2.3 K/mm3 (4.5-10.0)
[2022-08-25 02:04] LABS: Add Urine Microscopic? NO
[2022-08-25 02:07] LABS: Alanine Aminotransferase 11 U/L (6-50); Albumin Level 3.2 g/dL (3.5-5.1); Alkaline Phosphatase 302 U/L (38-126); Anion Gap 4 mmol/L (8-16); Aspartate Amino Transferase 35 U/L (17-59); Bilirubin,Total 0.7 mg/dL (0.2-1.3); Blood Urea Nitrogen 8 mg/dL (9-20); Calcium 8.2 mg/dL (8.4-10.2); Carbon Dioxide 27 mmol/L (22-30); Chloride 107 mmol/L (98-107); Estimated CRCL calculation 125 ml/min; Estimated Glomerular Filt Rate > 60; Glucose 128 mg/dL (65-110); Lipase 84 U/L (23-300); Magnesium 1.8 mg/dL (1.6-2.3); Potassium 3.7 mmol/L (3.4-5.0); Sodium 138 mmol/L (137-145)
[2022-08-25 02:08] LABS: INR 1.1; Lactic Acid Reflex 1.5 mmol/L (0.7-2.0); Partial Thromboplastin Time 31.4 SECONDS (22.3-36.8)
--- NOTE | 2022-08-25 02:20 | ED.GENADULT ---
HPI - General Adult General Chief complaint: Abdominal Pain Stated complaint: dysonea Time Seen by Provider: 08/25/22 01:31 History of Present Illness HPI narrative: Patient 52-year-old gentleman who presents emergency department with chief complaint of abdominal distention. Patient reports he has history of cirrhosis and gets therapeutic paracentesis is on a regular basis patient states that he is scheduled for one in about 2 weeks but his abdomen has become significantly more tense and reports that he is having some difficulty whenever he takes a deep breath. Patient reports that he had no issues with coagulation studies and last time they removed about 5 and 6 L of fluid from his abdomen. The patient does report that his lower extremities have become more edematous and they are slightly reddened. Related Data Home Medications Medication Instructions Recorded Confirmed potassium chloride 20 mEq 20 meq PO DAILY 04/11/22 07/21/22 tablet,extended release(part/cryst) ondansetron 4 mg disintegrating 4 mg PO Q4H PRN Nausea 07/16/22 07/21/22 tablet Allergies Allergy/AdvReac Type Severity Reaction Status Date / Time ceftriaxone AdvReac Itching Verified 07/21/22 13:12 Review of Systems Review of Systems: A 10 system review of systems was completed on the patient and is negative except for what is stated in the HPI. Nursing and ancillary documentation was reviewed. [facility] Past Medical History Medical History Arthritis C. difficile colitis Cerebrovascular accident (2004) Chronic anemia Cirrhosis of liver with ascites Diarrhea Diastolic congestive heart failure Esophageal varices Gastric ulcer Gastroesophageal reflux disease GI bleed Hyperglycemia Hypertension Kidney stone Leukemia In childhood. Pancreatic abnormality Pericardial effusion Noted on CT and echocardiogram in August 2020. No evidence of tamponade. Portal hypertensive gastropathy Noted on endoscopy on 03/23/[address] Duran. Prostate cancer Status post radiation seed implantation. Smoker Spontaneous bacterial peritonitis (04/2020) Tobacco dependence Type 2 diabetes mellitus Surgical History Surgical History History of appendectomy History of cholecystectomy History of cystoscopy History of inguinal hernia repair History of lithotripsy History of repair of right rotator cuff Family History Family History Mother Family history of malignant neoplasm of breast in first degree relative Breast cancer Father Acute myocardial infarction Hypertension Heart disease Other Diabetes mellitus Maternal Unkle Other Family history of malignant neoplasm Social History Social History Social History: The patient is disabled Surrogate decision maker: Myra Worley () or Marnie Washington (aunt). Code status: Full code Smoking packs per day: 0.5 Smoking cigarettes per day: 10.0 Years smoked: 20 Smoking pack-years: 10.00 Smoking status: Former smoker Tobacco type: cigarettes Second hand tobacco smoke exposure: No Alcohol intake: former Drinks per week: 6 Alcohol use details: Former beer drinker. Substance use: never Substance use type: does not use Lack of Transportation: No Lack of Food: Never True Current Housing: I Have Housing Concerned About Future Housing: No Difficulty Paying Gas/Electric Bills: No Difficulty Paying for Meds: No Currently Unemployed: No Education: Don't Know Difficulty w/ Childcare or Family Care: No Living arrangements: with family Additional living arrangements comments: Resides in [place] with his and son. Occupation/Education: occupation Additional occupation/education comments: [employer]
[2022-08-25] MEDS: MORPHINE SULFATE (*CRX) 4 MG/ML INJ IV PUSH (02:48)
[2022-08-25] MEDS: ONDANSETRON INJ 4 MG/2 ML VIAL IV PUSH (02:49)
[2022-08-25] MEDS: HYDROmorphone HCL INJ (*CRX) 1 MG/ML SYR IV PUSH ×2 (06:51→09:17)
[2022-08-25 09:13] LABS: Albumin Level 3.2 g/dL (3.5-5.1)
[2022-08-25] MEDS: PANTOPRAZOLE 40 MG TABLET PO ×2 (09:21→20:22)
[2022-08-25] MEDS: carvediloL 12.5 MG TABLET PO ×2 (09:21→20:22)
[2022-08-25] MEDS: HYDROcodone/acetaminophen (*CRX) 7.5-325 MG TABLET 1 TAB PO ×3 (11:16→23:32)
[2022-08-25] MEDS: FUROSEMIDE 40 MG TABLET 80 MG PO ×2 (11:17→18:08)
[2022-08-25] MEDS: POTASSIUM CHLORIDE 20 MEQ TABLET.ER PO (11:17)
[2022-08-25] MEDS: SPIRONOLACTONE 50 MG TABLET 100 MG PO ×2 (11:17→18:08)
--- NOTE | 2022-08-25 11:45 | PM.IMHP ---
H&P: HPI History of Present Illness Date/Time: 08/25/22 11:45 Chief Complaint: Patient 52-year-old gentleman who presents emergency department with chief complaint of abdominal distention.? Patient reports he has history of cirrhosis and gets therapeutic paracentesis is on a regular basis patient states that he is scheduled for one in about 2 weeks but his abdomen has become significantly more tense and reports that he is having some difficulty whenever he takes a deep breath.? Patient reports that he had no issues with coagulation studies and last time they removed about 5 and 6 L of fluid from his abdomen.? The patient does report that his lower extremities have become more edematous and they are slightly reddened. [facility] Past Medical History Medical History Arthritis C. difficile colitis Cerebrovascular accident (2004) Chronic anemia Cirrhosis of liver with ascites Diarrhea Diastolic congestive heart failure Esophageal varices Gastric ulcer Gastroesophageal reflux disease GI bleed Hyperglycemia Hypertension Kidney stone Leukemia In childhood. Pancreatic abnormality Pericardial effusion Noted on CT and echocardiogram in August 2020. No evidence of tamponade. Portal hypertensive gastropathy Noted on endoscopy on 03/23/[address] Duran. Prostate cancer Status post radiation seed implantation. Smoker Spontaneous bacterial peritonitis (04/2020) Tobacco dependence Type 2 diabetes mellitus Surgical History Surgical History History of appendectomy History of cholecystectomy History of cystoscopy History of inguinal hernia repair History of lithotripsy History of repair of right rotator cuff Family History Family History Mother Family history of malignant neoplasm of breast in first degree relative Breast cancer Father Acute myocardial infarction Hypertension Heart disease Other Diabetes mellitus Maternal Unkle Other Family history of malignant neoplasm Social History Social History Social History: The patient is disabled Surrogate decision maker: Myra Josephuss () or Marnie Felix (aunt). Code status: Full code Smoking packs per day: 0.5 Smoking cigarettes per day: 10.0 Years smoked: 20 Smoking pack-years: 10.00 Smoking status: Former smoker Tobacco type: cigarettes Second hand tobacco smoke exposure: No Alcohol intake: never Drinks per week: 6 Alcohol use details: Former beer drinker. Substance use: never Substance use type: does not use Lack of Transportation: No Lack of Food: Never True Current Housing: I Have Housing Concerned About Future Housing: No Difficulty Paying Gas/Electric Bills: No Difficulty Paying for Meds: No Currently Unemployed: No Education: Associate Degree Difficulty w/ Childcare or Family Care: No Living arrangements: with family Additional living arrangements comments: Resides in [place] with his and son. 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 Spiritual care concerns: No Agree to blood products: Yes Meds Home Medications and Allergies Home Medications Medication Instructions Recorded Confirmed Type potassium chloride 20 mEq 20 meq PO DAILY 04/11/22 08/25/22 History tablet,extended release(part/cryst) carvedilol 12.5 mg tablet (Coreg) 12.5 mg PO Q12HR #60 tabs 04/12/22 08/25/22 Rx spironolactone 50 mg tablet 100 mg PO BID #60 tabs 06/03/22 08/25/22 Rx (Aldactone) pantoprazole 40 mg tablet,delayed 40 mg PO Q12HR #60 tabs 07/09/22 08/25/22 Rx release ondansetron 4 mg disintegrating 4 mg PO Q4H PRN Nausea 07/16/22 08/25/22 History tablet furosemide 40 mg tablet 8
[2022-08-25 11:50] LABS: Glucose Point of Care 129 mg/dl (65-105)
[2022-08-25 16:26] LABS: Glucose Point of Care 130 mg/dl (65-105)
[2022-08-25] MEDS: HYDROmorphone HCL INJ (*CRX) 1 MG/ML SYR 0.5 MG IV PUSH ×2 (17:09→21:10)
[2022-08-25 20:02] LABS: Glucose Point of Care 176 mg/dl (65-105)
[2022-08-26] MEDS: HYDROmorphone HCL INJ (*CRX) 1 MG/ML SYR 0.5 MG IV PUSH ×3 (01:12→09:20)
[2022-08-26 05:50] VITALS: BP 128/72; PULSE 75; RESP 14; TEMP 36.4; O2SAT 98
[2022-08-26 07:50] LABS: Glucose Point of Care 154 mg/dl (65-105)
[2022-08-26 08:25] VITALS: PULSE 82
[2022-08-26] MEDS: PANTOPRAZOLE 40 MG TABLET PO (08:25)
[2022-08-26] MEDS: FUROSEMIDE 40 MG TABLET 80 MG PO (08:25)
[2022-08-26] MEDS: POTASSIUM CHLORIDE 20 MEQ TABLET.ER PO (08:25)
[2022-08-26] MEDS: SPIRONOLACTONE 50 MG TABLET 100 MG PO (08:25)
[2022-08-26] MEDS: carvediloL 12.5 MG TABLET PO (08:25)
--- NOTE | 2022-08-26 10:46 | P.DS_ITS ---
DS: Admitting Diagnosis Discharge Date 08/26/22 Admitting Diagnosis Ascites DS: Discharge Diagnosis Discharge Diagnosis (1) Acute generalized abdominal pain: Code(s): R10.84 - Generalized abdominal pain Status: Acute Assessment and Plan: Paracentesis performed today. Study sent. (2) Abdominal ascites: Code(s): R18.8 - Other ascites Status: Acute (3) Cirrhosis: Code(s): K74.60 - Unspecified cirrhosis of liver Status: Acute (4) Umbilical hernia: Qualifiers: Obstruction and gangrene presence: without obstruction or gangrene Qualified Code(s): K42.9 - Umbilical hernia without obstruction or gangrene Code(s): K42.9 - Umbilical hernia without obstruction or gangrene Status: Acute DS: Summary Hospital Course Hospital Course: Admitted for ascites had paracentesis he tolerated well. Pain improved. He can be discharged. Follow up with his production leader in [place] Time Spent with Patient Time attestation: Total time spent providing and/or coordinating discharge services: Exam Narrative: General: alert and oriented Psych: appropriate mood nad affect Eyes: PERRLA Neck: Trachea midline, no new lesions Skin: no changes Lungs: CTA Cardiac: Normal S1,S2, no MGR ABD: soft, ascites noted Ext: no new lesions, no cc, bilateral lower extremity edema noted Vasc: Pulses intact DS: Data Data Completed and Pending Pending studies at discharge: Pending at discharge 08/25/22 08:18 Cytology [PTH] Routine Labs on day of discharge: Labs from last 24 hours 08/26/22 08/25/22 08/25/22 07:45 19:59 16:19 POC Capillary Glucose 154 H 176 H 130 H 08/25/22 11:27 POC Capillary Glucose 129 H Discharge Plan Discharge Attending physician on discharge: Booker Guaman Discharging Clinician: Booker Guaman Patient Disposition: Home, Self-Care Activity: no preference Diet: as tolerated Patient Instructions: Antibiotic Form Stand Alone Forms: General Discharge Information Follow-up/Referrals: Bisi,MD Matt [Primary Care Provider] - Discharge Medications: Continued potassium chloride 20 mEq tablet,ER particles/crystals 20 meq PO DAILY carvedilol [Coreg] 12.5 mg Tablet 12.5 mg PO Q12HR Qty: 60 1RF spironolactone [Aldactone] 50 mg Tablet 100 mg PO BID Qty: 60 0RF ondansetron 4 mg tablet,disintegrating 4 mg PO Q4H PRN (Reason: Nausea) hydrocodone-acetaminophen 7.5-325 mg tablet 1 tablet PO Q8H PRN (Reason: Pain) furosemide 40 mg tablet 80 mg PO BID pantoprazole 40 mg tablet,delayed release (DR/EC) 40 mg PO Q12HR Qty: 60 2RF Date of admission: 08/25/22 02:24 Primary Care Provider: BisiMatt Admitting Provider: Dima Buenrostro V. Attending physician on admission: Dima Buenrostro V. Condition: Stable
[2022-08-26] MEDS: HYDROcodone/acetaminophen (*CRX) 7.5-325 MG TABLET 1 TAB PO (10:59)
== END 2022-08-26 11:20 | disposition home or self-care (01) ==
LOC: ANHED 02:24 → ANH3MEDSUR 03:32
PROVIDERS: Internal Medicine; Admitting Provider Chiropractor; Emergency Provider Emergency Medicine; PCP Hospitalist; Visit Provider Chiropractor
DX: R10.84 Generalized abdominal pain (principal); R18.8 Other ascites; K74.60 Unspecified cirrhosis of liver; K42.9 Umbilical hernia without obstruction or gangrene; D64.9 Anemia, unspecified; K21.9 Gastro-esophageal reflux disease without esophagitis; E11.65 Type 2 diabetes mellitus with hyperglycemia; I10 Essential (primary) hypertension; Z79.891 Long term (current) use of opiate analgesic; Z79.899 Other long term (current) drug therapy; Z87.891 Personal history of nicotine dependence; Z82.49 Family history of ischemic heart disease and other diseases of the circulatory system; Z83.3 Family history of diabetes mellitus
CPT/HCPCS: 36415; 49083; 80053; 81003; 82040; 82948; 83605; 83690; 83735; 85025; 85055; 85610; 85730; 96374; 96375; 96376; 99285; A9270; G0378; G0379; J1170; J2270; J2405

== ENCOUNTER 2022-09-15 08:56 | Emergency (ER) | payer OTHER, SELFPAY ==
--- NOTE | ~2022-09-15 | US_ITS ---
EXAMINATION: US paracentesis abd w/image DATE: 09/15/2022 12:42 INDICATION: Ascites. TECHNIQUE: The procedure and its risks and benefits were discussed with the patient. Potential risks discussed included bleeding and infection. The skin was prepped and draped in sterile fashion. 1% lid ocaine was used for local anesthesia. Under ultrasound guidance, a 5 Fr catheter with trochar was adv anced into the ascites in the right lower quadrant. Fluid was aspirated into vacuum bottles. The cath eter was removed, and a dressing was applied. There were no immediate complications. FINDINGS: Ultrasound images demonstrate ascites and the catheter within the fluid. IMPRESSION: 1. Successful ultrasound-guided paracentesis yielding 5000 mL of clear yellow fluid. Reviewed, dictated and finalized at location A.
--- NOTE | ~2022-09-15 | XR_ITS ---
EXAMINATION: XR chest 1V portable DATE: 09/15/2022 10:21 INDICATION: Shortness of breath. TECHNIQUE: A single frontal view of the chest was obtained. COMPARISON: Chest single view 07/16/2022, CT abdomen and pelvis 07/16/2022 FINDINGS: There is no pneumonia, pleural effusion, or pneumothorax. Cardiomegaly is noted. IMPRESSION: 1. Cardiomegaly. Reviewed, dictated and finalized at location D. IMPRESSION: 1. Cardiomegaly.
[2022-09-15 08:58] VITALS: BP 152/109; PULSE 80; RESP 17; TEMP 36.7; O2SAT 100
[2022-09-15 09:26] LABS: Basophils Percent Auto 0.3 % (0.2-1.2); Eosinophils Percent Auto 0.3 % (0-4.4); Hematocrit 35.6 % (42.0-52.0); Hemoglobin 11.2 g/dL (14.0-18.0); Immature Granulocyte Absolute 0.04 K/mm3 (0.00-0.031); Immature Granulocyte Percent A 0.7 % (0-0.5); Immature Platelet Fraction Pct 11.5 % (0.9-11.2); Lymphocytes Absolute Auto 0.62 K/mm3 (0.9-3.2); Lymphocytes Percent Auto 10.4 % (18.3-44.2); Mean Corpuscular HGB Conc 31.5 g/dl (32-36); Mean Corpuscular Hemoglobin 26.6 pg (26-34); Mean Corpuscular Volume 84.6 fl (80-100); Monocytes Absolute Auto 0.7 K/mm3 (0.1-0.6); Monocytes Percent Auto 11.1 % (2.6-8.5); Neutrophils Absolute Auto 4.6 K/mm3 (1.3-6.7); Neutrophils Percent Auto 77.2 % (45.5-73.1); Platelet Count Result 90 k/mm3 (150-375); Red Blood Count 4.21 M/mm3 (4.6-6.20); Red Cell Distribution Width 24.5 % (11.5-14.5)
[2022-09-15 09:36] LABS: Appearance Urine Clear (Clear); Bacteria Urine None Seen /hpf; Bilirubin Urine 3+ (Negative); Blood Urine Negative (Negative); Color Urine Dark Yellow (Yellow); Glucose Urine UA Negative (Negative); Ketones Urine Trace mg/dL (Negative); Leukocyte Esterase Ur Trace LEU/UL (Negative); Nitrate Urine Negative (Negative); Protein Urine Trace mg/dL (Negative); Squamous Epithelial Cell Urine None seen /hpf (Few); WBC Urine 0-5 /hpf
[2022-09-15 09:38] LABS: Add Urine Microscopic? YES
[2022-09-15 09:40] LABS: Anisocytosis 2+ (NORMAL); Hypochromasia 2+ (NORMAL); Platelet Estimate Decreased (Adequate); Target Cells 2+ (NORMAL)
[2022-09-15 09:41] LABS: Poikilocytosis 1+ (NORMAL); Schistocytes None Seen (NORMAL)
[2022-09-15 09:58] LABS: Alanine Aminotransferase 46 U/L (6-50); Albumin Level 3.3 g/dL (3.5-5.1); Anion Gap 8 mmol/L (8-16); Aspartate Amino Transferase 194 U/L (17-59); Bilirubin,Total 10.7 mg/dL (0.2-1.3); Blood Urea Nitrogen 15 mg/dL (9-20); Carbon Dioxide 21 mmol/L (22-30); Chloride 106 mmol/L (98-107); Estimated CRCL calculation 98 ml/min; Estimated Glomerular Filt Rate > 60; Glucose 181 mg/dL (65-110); Lipase 93 U/L (23-300); Potassium 3.9 mmol/L (3.4-5.0); Sodium 135 mmol/L (137-145)
[2022-09-15 10:11] LABS: Alkaline Phosphatase 1598 U/L (38-126)
[2022-09-15] MEDS: HYDROmorphone HCL INJ (*CRX) 1 MG/ML SYR 0.5 MG IV PUSH ×2 (10:13→14:00)
[2022-09-15] MEDS: ONDANSETRON INJ 4 MG/2 ML VIAL IV PUSH (10:13)
[2022-09-15 10:40] LABS: Ammonia < 9 umol/L (9-30)
[2022-09-15 10:41] LABS: INR 1.3; Prothrombin Time 15.8 Seconds (11.1-14.7)
[2022-09-15 10:42] LABS: Partial Thromboplastin Time 35.3 SECONDS (22.3-36.8)
[2022-09-15 11:28] VITALS: BP 152/91; PULSE 82; RESP 19; O2SAT 99
[2022-09-15 12:35] VITALS: BP 149/83; PULSE 79; RESP 17; O2SAT 100
[2022-09-15 13:26] LABS: Appearance Peritoneal Fluid Clear (Clear); Color Peritoneal Fluid Yellow (Colorless); Nucleated Cells Peritoneal Flu 90 /uL (0-500); Source Peritoneal Fluid Peritoneal Fluid
[2022-09-15 13:35] LABS: Macrophages Peritoneal Fluid 67 %; Neutrophils Peritoneal Fluid 1 % (0-25)
[2022-09-15 13:38] LABS: Mesothelial Cells Peritoneal Fluid 18 %
[2022-09-15 13:39] LABS: Lymphocytes Peritoneal Fluid 14 %; RBC Peritoneal Fluid < 2000 /uL (0-100000)
--- NOTE | 2022-09-15 13:40 | ED.ABDPAIN ---
HPI - Abdominal Pain General Chief Complaint: Abdominal Pain Stated Complaint: ABD PAIN Time Seen by Provider: 09/15/22 09:09 Source: patient, RN notes reviewed and old records reviewed Mode of arrival: ambulatory Limitations: no limitations History of Present Illness HPI narrative: This is a 52 year old male with history of end stage liver disease who presents for evaluation of abdominal pain. He states his last paracentesis was 2.5 weeks ago, he developed worsening abdominal distension over night. He has abdominal pain due to his distension. He denies fever, chills, nausea, vomiting. He has pain with movement. He states he is taking all of his medication. His liver specialist are at [place] . Related Data Home Medications Medication Instructions Recorded Confirmed potassium chloride 20 mEq 20 meq PO DAILY 04/11/22 08/25/22 tablet,extended release(part/cryst) ondansetron 4 mg disintegrating 4 mg PO Q4H PRN Nausea 07/16/22 08/25/22 tablet furosemide 40 mg tablet 80 mg PO BID 08/25/22 08/25/22 hydrocodone 7.5 mg-acetaminophen 1 tablet PO Q8H PRN Pain 08/25/22 08/25/22 325 mg tablet Allergies Allergy/AdvReac Type Severity Reaction Status Date / Time ceftriaxone AdvReac Itching Verified 09/15/22 09:02 Review of Systems Constitutional: Constitutional: Denies weakness Cardiovascular: Cardiovascular: Denies syncope, Denies rapid heart rate, Denies irregular heart rhythm, Denies leg edema and Denies dyspnea Respiratory: Respiratory: Denies chest congestion, Denies hemoptysis, Denies excessive phlegm production and Reports dyspnea Gastrointestinal: Gastrointestinal: Reports abdominal pain, Reports bloating, Denies hematochezia, Denies diarrhea and Denies vomiting Genitourinary: Genitourinary: Denies hematuria, Denies dysuria, Denies penile discharge and Denies testicular pain Musculoskeletal: Musculoskeletal: Denies joint swelling, Denies loss of height and Denies muscle weakness Neurologic: Denies syncope, Denies focal weakness and Denies weakness PMFSH Past Medical History Medical History Arthritis C. difficile colitis Cerebrovascular accident (2004) Chronic anemia Cirrhosis of liver with ascites Diarrhea Diastolic congestive heart failure Esophageal varices Gastric ulcer Gastroesophageal reflux disease GI bleed Hyperglycemia Hypertension Kidney stone Leukemia In childhood. Pancreatic abnormality Pericardial effusion Noted on CT and echocardiogram in August 2020. No evidence of tamponade. Portal hypertensive gastropathy Noted on endoscopy on 03/23/[address] Duran. Prostate cancer Status post radiation seed implantation. Smoker Spontaneous bacterial peritonitis (04/2020) Tobacco dependence Type 2 diabetes mellitus Surgical History Surgical History History of appendectomy History of cholecystectomy History of cystoscopy History of inguinal hernia repair History of lithotripsy History of repair of right rotator cuff Family History Family History Mother Family history of malignant neoplasm of breast in first degree relative Breast cancer Father Acute myocardial infarction Hypertension Heart disease Other Diabetes mellitus Maternal Unkle Other Family history of malignant neoplasm Social History Social History Social History: The patient is disabled Surrogate decision maker: Myra Worley () or Marnie Washington (aunt). Code status: Full code Smoking packs per day: 0.5 Smoking cigarettes per day: 10.0 Years smoked: 20 Smoking pack-years: 10.00 Smoking status: Former smoker Tobacco type: cigarettes Second hand tobacco smoke exposure: No Alcohol intake: never Drinks per week: 6 Alcohol use details: Former be
[2022-09-15 14:01] VITALS: BP 143/83; PULSE 88; RESP 14; O2SAT 99
[2022-09-18 15:45] LABS: LDH Peritoneal Fluid 30 U/L (<63); Total Protein Peritoneal Fluid <3.0 g/dL
[2022-09-20 20:25] LABS: Albumin Peritoneal Fluid 0.3 g/dL
== END 2022-09-15 15:39 | disposition home or self-care (01) ==
PROVIDERS: Emergency Provider General Practice; PCP Hospitalist
DX: K74.60 Unspecified cirrhosis of liver (principal); R18.8 Other ascites; K72.10 Chronic hepatic failure without coma; D64.9 Anemia, unspecified; I50.30 Unspecified diastolic (congestive) heart failure; I11.0 Hypertensive heart disease with heart failure; E11.9 Type 2 diabetes mellitus without complications; K76.6 Portal hypertension; K31.89 Other diseases of stomach and duodenum; K21.9 Gastro-esophageal reflux disease without esophagitis; M19.90 Unspecified osteoarthritis, unspecified site; Z85.46 Personal history of malignant neoplasm of prostate; Z85.6 Personal history of leukemia; Z87.442 Personal history of urinary calculi; Z86.73 Personal history of transient ischemic attack (TIA), and cerebral infarction without residual deficits; Z87.891 Personal history of nicotine dependence; I51.7 Cardiomegaly
CPT/HCPCS: 36415; 49083; 71045; 80053; 81001; 82042; 82140; 83615; 83690; 84157; 85025; 85055; 85610; 85730; 87070; 87075; 87205; 89051; 96374; 96375; 96376; 99284; J1170; J2405

== ENCOUNTER 2022-10-09 09:49 | Outpatient (CLI) | payer OTHER, SELFPAY ==
--- NOTE | ~2022-10-09 | CT_ITS ---
EXAMINATION: CT abdomen pelvis wo/w con DATE: 10/09/2022 10:23 INDICATION: Cirrhosis of the liver with ascites TECHNIQUE: Computed tomography (CT) of the abdomen performed without intravenous contrast. CT of the abdomen was then performed in the arterial phase with a total of 100 mL Omnipaque [address] of the abdomen and pelvis was then performed in the portal venous phase. The dose-length pr oduct (DLP) was 2912.21 mGy-cm. Automated exposure control and iterative reconstruction technique wer e employed. COMPARISON: 07/16/2022 FINDINGS: Cardiomegaly is noted. The liver is diffusely low in attenuation when compared with the spl een, consistent with hepatic steatosis. Again noted is focal sparing in the right liver. There is a m oderate volume of ascites. The gallbladder is surgically absent. There is nodularity of the liver faith face. No suspicious liver mass is identified. The pancreas and adrenal glands are normal. The enlarg ed spleen measures 17.8 cm . The kidneys are unremarkable. No pathologically enlarged abdominal or pelvic lymph nodes are identi fied. No free intraperitoneal gas or evidence of bowel obstruction. There is an umbilical hernia cont aining fat. There are chronic compression fractures of T11 and T12. IMPRESSION: 1. Diffuse hepatic steatosis with sparing in the right hepatic lobe. 2. Cirrhosis with splenomegaly. 3. No suspicious liver lesion identified. 4. Moderate volume of ascites. Reviewed, dictated and finalized at location L.
== END 2022-10-09 09:50 | disposition home or self-care (01) ==
PROVIDERS: PCP Hospitalist
DX: K74.60 Unspecified cirrhosis of liver (principal); K76.0 Fatty (change of) liver, not elsewhere classified; R16.1 Splenomegaly, not elsewhere classified; R18.8 Other ascites
CPT/HCPCS: 74178; Q9967

== ENCOUNTER 2022-10-25 10:48 | Emergency (ER) | payer OTHER, SELFPAY ==
--- NOTE | ~2022-10-25 | XR_ITS ---
[XR ribs RT 2V w CXR 2V ] INDICATION: Cough. Right-sided rib pain. TECHNIQUE: Frontal projection of the upper right ribs, frontal projection of the lower right ribs, ob lique projection of all the right ribs, frontal inspiratory chest x-ray for interpretation. COMPARISON: Comparison to multiple prior studies sequentially, with oldest reviewed study dated 03/16. FINDINGS: There is a nondisplaced right 10th rib fracture. There are lower thoracic wedge compression fractures which are chronic. No focal air space disease, pulmonary edema, pleural effusion or suspec bebeto pneumothorax. There are no soft tissue abnormality seen. The lungs are clear. IMPRESSION: 1: Nondisplaced right 10th rib fracture. Reviewed, dictated and finalized at location A.
[2022-10-25 11:12] VITALS: BP 128/76; PULSE 87; RESP 20; TEMP 36.5; O2SAT 97
--- NOTE | 2022-10-25 11:50 | ED.GENADULT ---
HPI - General Adult General Chief complaint: Chest Pain Stated complaint: cough; pain in back RUQ Time Seen by Provider: 10/25/22 11:50 Source: patient Mode of arrival: ambulatory Limitations: no limitations History of Present Illness HPI narrative: 52 y/o male with end-stage liver disease presented for c/o right rib pain after coughing. States at 0400 today he coughed and felt a pop to the site and has had severe pain since. Pain worse with taking deep breaths or movements. Patient states he has been coughing for 1 week. Denies increased shortness of breath from baseline, wheezing nausea, vomiting, fevers or chills. Hx ascites with frequent paracentesis; liver specialist is at [facility]. He was scheduled for paracentesis on 10/23/2022, however he states his swelling decreased and he rescheduled. He subsequently developed an increase in swelling over the past 2 days as well. Denies increased abd pain or concern at this time. Related Data Home Medications Medication Instructions Recorded Confirmed potassium chloride 20 mEq 20 meq PO DAILY 04/11/22 10/25/22 tablet,extended release(part/cryst) ondansetron 4 mg disintegrating 4 mg PO Q4H PRN Nausea 07/16/22 10/25/22 tablet furosemide 40 mg tablet 80 mg PO BID 08/25/22 10/25/22 hydrocodone 7.5 mg-acetaminophen 1 tablet PO Q8H PRN Pain 08/25/22 10/25/22 325 mg tablet Allergies Allergy/AdvReac Type Severity Reaction Status Date / Time ceftriaxone AdvReac Itching Verified 09/15/22 09:02 Review of Systems Review of Systems: CONSTITUTIONAL: Denies body aches, fever, chills EYES: Denies visual changes CARDIOVASCULAR: Denies chest pain, palpitations, or edema. RESPIRATORY: Report cough denies increased dyspnea. GASTROINTESTINAL: Denies abdominal pain, nausea, vomiting, or diarrhea. SKIN: Denies rash, itching, or wounds. MUSCULOSKELETAL: reports rib pain NEUROLOGIC: Denies headache, numbness, tingling, or weakness. All systems reviewed & are unremarkable except as noted in HPI and below PMFSH Past Medical History Medical History Arthritis C. difficile colitis Cerebrovascular accident (2004) Chronic anemia Cirrhosis of liver with ascites Diarrhea Diastolic congestive heart failure Esophageal varices Gastric ulcer Gastroesophageal reflux disease GI bleed Hyperglycemia Hypertension Kidney stone Leukemia In childhood. Pancreatic abnormality Pericardial effusion Noted on CT and echocardiogram in August 2020. No evidence of tamponade. Portal hypertensive gastropathy Noted on endoscopy on 03/23/[address] Duran. Prostate cancer Status post radiation seed implantation. Smoker Spontaneous bacterial peritonitis (04/2020) Tobacco dependence Type 2 diabetes mellitus Surgical History Surgical History History of appendectomy History of cholecystectomy History of cystoscopy History of inguinal hernia repair History of lithotripsy History of repair of right rotator cuff Family History Family History Mother Family history of malignant neoplasm of breast in first degree relative Breast cancer Father Acute myocardial infarction Hypertension Heart disease Other Diabetes mellitus Maternal Unkle Other Family history of malignant neoplasm Social History Social History Social History: The patient is disabled Surrogate decision maker: Myra Worley () or Marnie Washington (aunt). Code status: Full code Smoking packs per day: 0.5 Smoking cigarettes per day: 10.0 Years smoked: 20 Smoking pack-years: 10.00 Smoking status: Former smoker Tobacco type: cigarettes Second hand tobacco smoke exposure: No Alcohol intake: never Drinks per week: 6 Alcohol use details: Former beer drinker. Shah
== END 2022-10-25 12:27 | disposition home or self-care (01) ==
PROVIDERS: Emergency Provider Nurse Practitioner Family; PCP Hospitalist
DX: S22.31XA Fracture of one rib, right side, initial encounter for closed fracture (principal); X58.XXXA Exposure to other specified factors, initial encounter; R05.9 Cough, unspecified; K21.9 Gastro-esophageal reflux disease without esophagitis; E11.9 Type 2 diabetes mellitus without complications; Z86.19 Personal history of other infectious and parasitic diseases; K74.60 Unspecified cirrhosis of liver; I11.0 Hypertensive heart disease with heart failure; I50.30 Unspecified diastolic (congestive) heart failure; Z86.73 Personal history of transient ischemic attack (TIA), and cerebral infarction without residual deficits; Z85.46 Personal history of malignant neoplasm of prostate; Z85.6 Personal history of leukemia
CPT/HCPCS: 71046; 71100; 99213; G0463

== ENCOUNTER 2022-10-26 22:26 | Emergency (ER) | payer OTHER, SELFPAY ==
--- NOTE | ~2022-10-26 | XR_ITS ---
Portable chest x-ray Comparison: 10/25/2022 Clinical History: Dyspnea Findings: Lungs are clear, without focal consolidation or pleural effusion. Cardiomediastinal silho uette is stable. Bones and soft tissues are unremarkable. Impression: Clear lungs. Reviewed, dictated and finalized at location . Impression: Clear lungs.
[2022-10-26 22:31] VITALS: BP 166/88; PULSE 77; RESP 21; TEMP 36.6; O2SAT 97
[2022-10-26 22:33] VITALS: BP 166/88; PULSE 86; RESP 23; O2SAT 97
[2022-10-26 23:01] VITALS: BP 155/91; PULSE 86; RESP 24; O2SAT 93
[2022-10-26 23:16] VITALS: BP 150/90; PULSE 82; RESP 17; O2SAT 94
[2022-10-26 23:23] LABS: Basophils Percent Auto 0.1 % (0.2-1.2); Hematocrit 36.2 % (42.0-52.0); Hemoglobin 11.3 g/dL (14.0-18.0); Immature Granulocyte Absolute 0.05 K/mm3 (0.00-0.031); Immature Granulocyte Percent A 0.7 % (0-0.5); Lymphocytes Absolute Auto 0.61 K/mm3 (0.9-3.2); Lymphocytes Percent Auto 8.2 % (18.3-44.2); Mean Corpuscular HGB Conc 31.2 g/dl (32-36); Mean Corpuscular Hemoglobin 33.9 pg (26-34); Mean Corpuscular Volume 108.7 fl (80-100); Mean Platelet Volume 10.8 fl (7.4-10.4); Monocytes Absolute Auto 0.6 K/mm3 (0.1-0.6); Monocytes Percent Auto 7.6 % (2.6-8.5); Neutrophils Absolute Auto 6.2 K/mm3 (1.3-6.7); Neutrophils Percent Auto 83.4 % (45.5-73.1); Platelet Count Result 141 k/mm3 (150-375); Red Blood Count 3.33 M/mm3 (4.6-6.20); Red Cell Distribution Width 15.9 % (11.5-14.5); White Blood Count 7.5 K/mm3 (4.5-10.0)
[2022-10-26 23:32] LABS: Magnesium 2.1 mg/dL (1.6-2.3)
[2022-10-26 23:33] LABS: Alanine Aminotransferase 26 U/L (6-50); Albumin Level 3.2 g/dL (3.5-5.1); Alkaline Phosphatase 488 U/L (38-126); Anion Gap 9 mmol/L (8-16); Aspartate Amino Transferase 96 U/L (17-59); Bilirubin,Total 3.5 mg/dL (0.2-1.3); Blood Urea Nitrogen 10 mg/dL (9-20); Calcium 8.4 mg/dL (8.4-10.2); Carbon Dioxide 26 mmol/L (22-30); Chloride 98 mmol/L (98-107); Estimated CRCL calculation 103 ml/min; Estimated Glomerular Filt Rate > 60; Glucose 200 mg/dL (65-110); Potassium 3.5 mmol/L (3.4-5.0); Sodium 133 mmol/L (137-145)
[2022-10-26] MEDS: oxyCODONE/ACETAMINOPHEN (*CRX) 5-325 MG TABLET 1 TABLET PO (23:47)
[2022-10-26 23:52] LABS: Anisocytosis 1+ (NORMAL); Schistocytes None Seen (NORMAL)
[2022-10-27] VITALS (12 sets, daily range): BP systolic 124–150; BP diastolic 70–88; PULSE 76–93; RESP 15–23; O2SAT 90–97
--- NOTE | 2022-10-27 00:52 | ED.SOB ---
HPI - SOB/Dyspnea General Chief Complaint: Shortness of Breath/Dyspnea Stated Complaint: rib pain Time Seen by Provider: 10/26/22 22:49 History of Present Illness HPI Narrative: This is a 52-year-old male with past history of cirrhosis and rib fracture 1 day ago, who presents to the emergency department complaining of abdominal swelling and difficulty breathing. Patient states his last therapeutic paracentesis was approximately 1 month ago where he had 5 L removed. He is scheduled for paracentesis in 2 weeks, but feels his abdomen is swelling faster than usual. He states this is causing discomfort and difficulty breathing. He complains of right-sided rib pain, but denies other chest pain. Related Data Home Medications Medication Instructions Recorded Confirmed potassium chloride 20 mEq 20 meq PO DAILY 04/11/22 10/25/22 tablet,extended release(part/cryst) ondansetron 4 mg disintegrating 4 mg PO Q4H PRN Nausea 07/16/22 10/25/22 tablet furosemide 40 mg tablet 80 mg PO BID 08/25/22 10/25/22 hydrocodone 7.5 mg-acetaminophen 1 tablet PO Q8H PRN Pain 08/25/22 10/25/22 325 mg tablet Allergies Allergy/AdvReac Type Severity Reaction Status Date / Time ceftriaxone AdvReac Itching Verified 09/15/22 09:02 Review of Systems Review of Systems: CONSTITUTIONAL: Denies fever, chills, or sweats. CARDIOVASCULAR: Chest wall pain denies chest pain, palpitations, or edema. RESPIRATORY: Denies cough or dyspnea. GASTROINTESTINAL: Abdominal distention denie, nausea, vomiting, or diarrhea. GENITOURINARY: Denies dysuria or hematuria. SKIN: Denies rash or itching. MUSCULOSKELETAL: Denies back pain, joint pain, or myalgia. NEUROLOGIC: Denies headache, numbness, dizziness, or weakness. PSYCHIATRIC: Denies anxiety or depression. [facility] Past Medical History Medical History Arthritis C. difficile colitis Cerebrovascular accident (2004) Chronic anemia Cirrhosis of liver with ascites Diarrhea Diastolic congestive heart failure Esophageal varices Gastric ulcer Gastroesophageal reflux disease GI bleed Hyperglycemia Hypertension Kidney stone Leukemia In childhood. Pancreatic abnormality Pericardial effusion Noted on CT and echocardiogram in August 2020. No evidence of tamponade. Portal hypertensive gastropathy Noted on endoscopy on 03/23/[address] Duran. Prostate cancer Status post radiation seed implantation. Smoker Spontaneous bacterial peritonitis (04/2020) Tobacco dependence Type 2 diabetes mellitus Surgical History Surgical History History of appendectomy History of cholecystectomy History of cystoscopy History of inguinal hernia repair History of lithotripsy History of repair of right rotator cuff Family History Family History Mother Family history of malignant neoplasm of breast in first degree relative Breast cancer Father Acute myocardial infarction Hypertension Heart disease Other Diabetes mellitus Maternal Unkle Other Family history of malignant neoplasm Social History Social History Social History: The patient is disabled Surrogate decision maker: Myra Worley () or Marnie Washington (aunt). Code status: Full code Smoking packs per day: 0.5 Smoking cigarettes per day: 10.0 Years smoked: 20 Smoking pack-years: 10.00 Smoking status: Former smoker Tobacco type: cigarettes Second hand tobacco smoke exposure: No Alcohol intake: never Drinks per week: 6 Alcohol use details: Former beer drinker. Substance use: never Substance use type: does not use Lack of Transportation: No Lack of Food: Never True Current Housing: I Have Housing Concerned About Future Housing: No Difficulty Paying Gas/Electric Bills: No Di
[2022-10-27] MEDS: oxyCODONE/ACETAMINOPHEN (*CRX) 5-325 MG TABLET 1 TABLET PO ×2 (01:15→05:18)
[2022-10-27] MEDS: ALBUMIN HUMAN 25% 25 GM/100 ML 200 ML IVPB (01:29)
[2022-10-27 01:51] LABS: Appearance Peritoneal Fluid Clear (Clear); Color Peritoneal Fluid Yellow (Colorless); Source Peritoneal Fluid Peritoneal Fluid
[2022-10-27 01:52] LABS: Nucleated Cells Peritoneal Flu 112 /uL (0-500); RBC Peritoneal Fluid < 2000 /uL (0-100000)
[2022-10-27 01:58] LABS: Lymphocytes Peritoneal Fluid 17 %; Macrophages Peritoneal Fluid 24 %; Monocytes Peritoneal Fluid 10 %; Neutrophils Peritoneal Fluid 9 % (0-25)
[2022-10-27 01:59] LABS: Mesothelial Cells Peritoneal Fluid 40 %
[2022-10-31 05:12] LABS: Glucose Peritoneal Fluid 257 mg/dL; Total Protein Peritoneal Fluid <3.0 g/dL
== END 2022-10-27 05:45 | disposition home or self-care (01) ==
PROVIDERS: Emergency Provider Preventive Medicine Aerospace Medicine; PCP Hospitalist
DX: R18.8 Other ascites (principal); K74.69 Other cirrhosis of liver; I50.30 Unspecified diastolic (congestive) heart failure; I11.0 Hypertensive heart disease with heart failure; E11.9 Type 2 diabetes mellitus without complications; K76.6 Portal hypertension; K31.89 Other diseases of stomach and duodenum; K21.9 Gastro-esophageal reflux disease without esophagitis; M19.90 Unspecified osteoarthritis, unspecified site; Z85.6 Personal history of leukemia; Z87.442 Personal history of urinary calculi; Z86.73 Personal history of transient ischemic attack (TIA), and cerebral infarction without residual deficits; Z87.891 Personal history of nicotine dependence; Z90.49 Acquired absence of other specified parts of digestive tract
CPT/HCPCS: 36415; 49082; 49083; 71045; 80053; 82945; 83735; 84157; 85025; 87070; 87075; 87205; 89051; 96365; 96366; 99284; A9270; P9047

== ENCOUNTER 2022-10-28 10:18 | Emergency (ER) | payer OTHER, SELFPAY ==
--- NOTE | ~2022-10-28 | CT_ITS ---
CT of the Abdomen and Pelvis: Indication: Abdominal pain Technique: 2.5 mm axial scans were obtained through the abdomen and pelvis following intravenous adm inistration of 100 cc of Omnipaque 350. Dose reduction technique was used on this scan by utilizing a utomated exposure control and iterative reconstruction technique. The dose-length product (DLP) was 1 260.02 mGy-cm. COMPARISON: 10/09/2022 Findings: Scans through the lung bases are unremarkable. Nodular contour of the liver is consistent with cirrhosis. No hepatic mass or biliary dilatation evid ent. Cholecystectomy clips are present. Spleen is enlarged, measuring 16.2 cm in length. The pancreas , adrenals and kidneys are within normal limits. No evidence of aortic aneurysm. No lymphadenopathy . No bowel obstruction or bowel wall thickening. There is no evidence to suggest acute appendicitis. Sm all focal hernia present, containing fat and fluid. Images through the pelvis were performed. Urinary bladder unremarkable. Prostate gland and seminal ve sicles are unremarkable. Moderate to large amount of abdominopelvic ascites present.. Impression: Cirrhotic liver with associated splenomegaly and moderate to large amount of abdominopelvic ascites. Reviewed, dictated and finalized at location . Impression: Cirrhotic liver with associated splenomegaly and moderate to large amount of ab dominopelvic ascites.
[2022-10-28 10:34] VITALS: BP 149/84; PULSE 111; RESP 16; TEMP 36.5; O2SAT 98
--- NOTE | 2022-10-28 11:40 | PC.NURSE ---
pt states that he had 6L drained from abd thurs and now he can't get site to stop leaking. also c/o pain to site. states he has to change bandage every 30min-1hr
--- NOTE | 2022-10-28 12:39 | ED.GENADULT ---
HPI - General Adult General Chief complaint: Unspecified Stated complaint: fluid draining from paracentesis site Time Seen by Provider: 10/28/22 12:02 History of Present Illness HPI narrative: Patient is a 52-year-old male with a history of cirrhosis presenting with abdominal pain. Patient states that he was here a couple days ago and had his ascites drained. States that approximately 6 L were removed. States that since that time he has had persistent leakage from the paracentesis site. States that he has also developed right lower quadrant pain in this area. States that he has had numerous paracenteses in the past and he has never had leakage or pain. He denies worsening abdominal distention. States that he felt nauseated yesterday but has not vomited. Denies further complaints or concerns. 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 Hutchinson with [facility]. Related Data Home Medications Medication Instructions Recorded Confirmed potassium chloride 20 mEq 20 meq PO DAILY 04/11/22 10/25/22 tablet,extended release(part/cryst) ondansetron 4 mg disintegrating 4 mg PO Q4H PRN Nausea 07/16/22 10/25/22 tablet furosemide 40 mg tablet 80 mg PO BID 08/25/22 10/25/22 hydrocodone 7.5 mg-acetaminophen 1 tablet PO Q8H PRN Pain 08/25/22 10/25/22 325 mg tablet Allergies Allergy/AdvReac Type Severity Reaction Status Date / Time ceftriaxone AdvReac Itching Verified 10/28/22 11:23 Review of Systems Review of Systems: All systems reviewed & are unremarkable except as noted in HPI and below PMFSH Past Medical History Medical History Arthritis C. difficile colitis Cerebrovascular accident (2004) Chronic anemia Cirrhosis of liver with ascites Diarrhea Diastolic congestive heart failure Esophageal varices Gastric ulcer Gastroesophageal reflux disease GI bleed Hyperglycemia Hypertension Kidney stone Leukemia In childhood. Pancreatic abnormality Pericardial effusion Noted on CT and echocardiogram in August 2020. No evidence of tamponade. Portal hypertensive gastropathy Noted on endoscopy on 03/23/[address] Duran. Prostate cancer Status post radiation seed implantation. Smoker Spontaneous bacterial peritonitis (04/2020) Tobacco dependence Type 2 diabetes mellitus Surgical History Surgical History History of appendectomy History of cholecystectomy History of cystoscopy History of inguinal hernia repair History of lithotripsy History of repair of right rotator cuff Family History Family History Mother Family history of malignant neoplasm of breast in first degree relative Breast cancer Father Acute myocardial infarction Hypertension Heart disease Other Diabetes mellitus Maternal Unkle Other Family history of malignant neoplasm Social History Social History Social History: The patient is disabled Surrogate decision maker: Myra Worley () or Marnie Washington (aunt). Code status: Full code Smoking packs per day: 0.5 Smoking cigarettes per day: 10.0 Years smoked: 20 Smoking pack-years: 10.00 Smoking status: Former smoker Tobacco type: cigarettes Second hand tobacco smoke exposure: No Alcohol intake: never Drinks per week: 6 Alcohol use details: Former beer drinker. Substance use: never Substance use type: does not use Lack of Transportation: No Lack of Food: Never True Current Housing: I Have Housing Concerned About Future Housing: No Difficulty Paying Gas/Electric Bills: No Difficulty Paying for Meds: No Currently Unemployed: No Education: Associate Degree Difficulty w/ Childcare or Family Care: No Living arrangements: with family Additional living arrangements comments: Resides in [place] with his and son.
[2022-10-28] MEDS: MORPHINE SULFATE (*CRX) 4 MG/ML INJ IV PUSH (13:26)
[2022-10-28 13:34] LABS: Basophils Percent Auto 0.1 % (0.2-1.2); Hematocrit 33.9 % (42.0-52.0); Hemoglobin 10.6 g/dL (14.0-18.0); Immature Granulocyte Absolute 0.05 K/mm3 (0.00-0.031); Immature Granulocyte Percent A 0.5 % (0-0.5); Lymphocytes Absolute Auto 1.04 K/mm3 (0.9-3.2); Lymphocytes Percent Auto 10.3 % (18.3-44.2); Mean Corpuscular HGB Conc 31.3 g/dl (32-36); Mean Corpuscular Hemoglobin 34.1 pg (26-34); Mean Platelet Volume 9.7 fl (7.4-10.4); Monocytes Absolute Auto 1.5 K/mm3 (0.1-0.6); Monocytes Percent Auto 14.5 % (2.6-8.5); Neutrophils Absolute Auto 7.6 K/mm3 (1.3-6.7); Neutrophils Percent Auto 74.6 % (45.5-73.1); Platelet Count Result 147 k/mm3 (150-375); Red Blood Count 3.11 M/mm3 (4.6-6.20); Red Cell Distribution Width 15.4 % (11.5-14.5); White Blood Count 10.1 K/mm3 (4.5-10.0)
[2022-10-28 13:44] LABS: Alanine Aminotransferase 20 U/L (6-50); Albumin Level 3.3 g/dL (3.5-5.1); Alkaline Phosphatase 335 U/L (38-126); Anion Gap -1 mmol/L (8-16); Aspartate Amino Transferase 50 U/L (17-59); Bilirubin,Total 2.7 mg/dL (0.2-1.3); Blood Urea Nitrogen 18 mg/dL (9-20); Calcium 8.6 mg/dL (8.4-10.2); Carbon Dioxide 35 mmol/L (22-30); Chloride 96 mmol/L (98-107); Estimated CRCL calculation 96 ml/min; Estimated Glomerular Filt Rate > 60; Glucose 134 mg/dL (65-110); Lipase 79 U/L (23-300); Potassium 4.1 mmol/L (3.4-5.0); Prothrombin Time 13.9 Seconds (11.1-14.7); Sodium 130 mmol/L (137-145)
[2022-10-28] MEDS: MORPHINE SULFATE (*CRX) 2 MG/ML INJ IV PUSH (16:35)
== END 2022-10-28 16:52 | disposition home or self-care (01) ==
PROVIDERS: Emergency Provider Emergency Medicine; PCP Hospitalist
DX: R18.8 Other ascites (principal); K74.60 Unspecified cirrhosis of liver; R10.31 Right lower quadrant pain; I11.0 Hypertensive heart disease with heart failure; I50.30 Unspecified diastolic (congestive) heart failure; E11.9 Type 2 diabetes mellitus without complications; D64.9 Anemia, unspecified; K76.6 Portal hypertension; K31.89 Other diseases of stomach and duodenum; K21.9 Gastro-esophageal reflux disease without esophagitis; M19.90 Unspecified osteoarthritis, unspecified site; Z85.6 Personal history of leukemia; Z85.46 Personal history of malignant neoplasm of prostate; Z86.73 Personal history of transient ischemic attack (TIA), and cerebral infarction without residual deficits; Z87.442 Personal history of urinary calculi; Z87.891 Personal history of nicotine dependence; Z90.49 Acquired absence of other specified parts of digestive tract; R16.1 Splenomegaly, not elsewhere classified
CPT/HCPCS: 36415; 74177; 80053; 83690; 85025; 85610; 85730; 96374; 96376; 99284; J2270; Q9967

== ENCOUNTER 2022-11-11 11:22 | Emergency (ER) | payer OTHER, SELFPAY ==
--- NOTE | ~2022-11-11 | US_ITS ---
EXAMINATION: US paracentesis abd w/image DATE: 11/11/2022 13:39 INDICATION: Ascites. TECHNIQUE: The procedure and its risks and benefits were discussed with the patient. Potential risks discussed included bleeding and infection. The skin was prepped and draped in sterile fashion. 1% lid ocaine was used for local anesthesia. Under ultrasound guidance, a 5 Fr catheter with trochar was adv anced into the ascites in the left lower quadrant. Fluid was aspirated into vacuum bottles. The georgette ter was removed, and a dressing was applied. There were no immediate complications. FINDINGS: Ultrasound images demonstrate ascites and the catheter within the fluid. IMPRESSION: 1. Successful ultrasound-guided paracentesis yielding 5000 mL of clear yellow fluid. Reviewed, dictated and finalized at location A.
[2022-11-11 11:24] VITALS: BP 120/79; PULSE 83; RESP 18; TEMP 36.8; O2SAT 98
[2022-11-11 12:27] LABS: Basophils Percent Auto 0.5 % (0.2-1.2); Eosinophils Percent Auto 0.7 % (0-4.4); Hematocrit 33.9 % (42.0-52.0); Hemoglobin 10.3 g/dL (14.0-18.0); Immature Granulocyte Absolute 0.03 K/mm3 (0.00-0.031); Immature Granulocyte Percent A 0.5 % (0-0.5); Immature Platelet Fraction Pct 5.9 % (0.9-11.2); Lymphocytes Absolute Auto 0.59 K/mm3 (0.9-3.2); Lymphocytes Percent Auto 10.4 % (18.3-44.2); Mean Corpuscular HGB Conc 30.4 g/dl (32-36); Mean Corpuscular Hemoglobin 32.2 pg (26-34); Mean Corpuscular Volume 105.9 fl (80-100); Monocytes Absolute Auto 0.6 K/mm3 (0.1-0.6); Monocytes Percent Auto 11.3 % (2.6-8.5); Neutrophils Absolute Auto 4.4 K/mm3 (1.3-6.7); Neutrophils Percent Auto 76.6 % (45.5-73.1); Platelet Count Result 137 k/mm3 (150-375); Red Cell Distribution Width 14.2 % (11.5-14.5); White Blood Count 5.7 K/mm3 (4.5-10.0)
[2022-11-11 12:31] LABS: Alanine Aminotransferase 14 U/L (6-50); Albumin Level 3.1 g/dL (3.5-5.1); Alkaline Phosphatase 394 U/L (38-126); Anion Gap 3 mmol/L (8-16); Aspartate Amino Transferase 40 U/L (17-59); Bilirubin,Total 2.1 mg/dL (0.2-1.3); Blood Urea Nitrogen 12 mg/dL (9-20); Calcium 8.3 mg/dL (8.4-10.2); Carbon Dioxide 28 mmol/L (22-30); Chloride 103 mmol/L (98-107); Estimated CRCL calculation 112 ml/min; Estimated Glomerular Filt Rate > 60; Glucose 128 mg/dL (65-110); Lipase 67 U/L (23-300); Magnesium 1.9 mg/dL (1.6-2.3); Potassium 3.8 mmol/L (3.4-5.0); Sodium 134 mmol/L (137-145)
[2022-11-11 12:31] LABS: Ammonia < 9 umol/L (9-30)
[2022-11-11 12:34] LABS: Prothrombin Time 14.2 Seconds (11.1-14.7)
[2022-11-11 12:35] LABS: Partial Thromboplastin Time 32.2 SECONDS (22.3-36.8)
--- NOTE | 2022-11-11 12:45 | ED.GENADULT ---
HPI - General Adult General Chief complaint: Abdominal Pain Stated complaint: abd pain/distention Time Seen by Provider: 11/11/22 11:55 History of Present Illness HPI narrative: 52-year-old male with history of cirrhosis presenting to the emergency department for evaluation of increased anxieties and abdominal distention. Patient states he was last drained on 10/28. Patient sometimes has a standing order for paracentesis but states that he did not have a standing order since his last training. Patient presents to the ED complaining of increased abdominal pressure and increased neuropathic pain. Patient is also having swelling of his scrotum. Patient reports he has been taking his diuretics as scheduled. Related Data Home Medications Medication Instructions Recorded Confirmed potassium chloride 20 mEq 20 meq PO DAILY 04/11/22 10/25/22 tablet,extended release(part/cryst) ondansetron 4 mg disintegrating 4 mg PO Q4H PRN Nausea 07/16/22 10/25/22 tablet furosemide 40 mg tablet 80 mg PO BID 08/25/22 10/25/22 hydrocodone 7.5 mg-acetaminophen 1 tablet PO Q8H PRN Pain 08/25/22 10/25/22 325 mg tablet Allergies Allergy/AdvReac Type Severity Reaction Status Date / Time ceftriaxone AdvReac Itching Verified 10/28/22 11:23 Review of Systems Review of Systems: All systems reviewed & are unremarkable except as noted in HPI and below PMFSH Past Medical History Medical History Arthritis C. difficile colitis Cerebrovascular accident (2004) Chronic anemia Cirrhosis of liver with ascites Diarrhea Diastolic congestive heart failure Esophageal varices Gastric ulcer Gastroesophageal reflux disease GI bleed Hyperglycemia Hypertension Kidney stone Leukemia In childhood. Pancreatic abnormality Pericardial effusion Noted on CT and echocardiogram in August 2020. No evidence of tamponade. Portal hypertensive gastropathy Noted on endoscopy on 03/23/[address] Duran. Prostate cancer Status post radiation seed implantation. Smoker Spontaneous bacterial peritonitis (04/2020) Tobacco dependence Type 2 diabetes mellitus Surgical History Surgical History History of appendectomy History of cholecystectomy History of cystoscopy History of inguinal hernia repair History of lithotripsy History of repair of right rotator cuff Family History Family History Mother Family history of malignant neoplasm of breast in first degree relative Breast cancer Father Acute myocardial infarction Hypertension Heart disease Other Diabetes mellitus Maternal Unkle Other Family history of malignant neoplasm Social History Social History Social History: The patient is disabled Surrogate decision maker: Myra Worley () or Marnie Washington (aunt). Code status: Full code Smoking packs per day: 0.5 Smoking cigarettes per day: 10.0 Years smoked: 20 Smoking pack-years: 10.00 Smoking status: Former smoker Tobacco type: cigarettes Second hand tobacco smoke exposure: No Alcohol intake: never Drinks per week: 6 Alcohol use details: Former beer drinker. Substance use: never Substance use type: does not use Lack of Transportation: No Lack of Food: Never True Current Housing: I Have Housing Concerned About Future Housing: No Difficulty Paying Gas/Electric Bills: No Difficulty Paying for Meds: No Currently Unemployed: No Education: Associate Degree Difficulty w/ Childcare or Family Care: No Living arrangements: with family Additional living arrangements comments: Resides in [place] with his and son. 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
[2022-11-11] MEDS: HYDROmorphone HCL INJ (*CRX) 1 MG/ML SYR IV PUSH ×2 (12:50→14:28)
[2022-11-11 12:58] LABS: Anisocytosis 1+ (NORMAL); Hypochromasia 1+ (NORMAL); Macrocytosis 1+ (NORMAL); Schistocytes None Seen (NORMAL)
[2022-11-11 13:34] VITALS: BP 119/81; PULSE 91; RESP 16; O2SAT 98; O2SAT 99
[2022-11-11 14:00] VITALS: BP 117/75; O2SAT 96
== END 2022-11-11 14:48 | disposition home or self-care (01) ==
PROVIDERS: General Practice; Emergency Provider Emergency Medicine; PCP Hospitalist
DX: R18.8 Other ascites (principal); N50.89 Other specified disorders of the male genital organs; K74.60 Unspecified cirrhosis of liver; K76.6 Portal hypertension; K31.89 Other diseases of stomach and duodenum; I50.30 Unspecified diastolic (congestive) heart failure; E11.9 Type 2 diabetes mellitus without complications; D64.9 Anemia, unspecified; K21.9 Gastro-esophageal reflux disease without esophagitis; Z85.46 Personal history of malignant neoplasm of prostate; Z85.6 Personal history of leukemia; Z87.442 Personal history of urinary calculi; Z86.73 Personal history of transient ischemic attack (TIA), and cerebral infarction without residual deficits; Z87.891 Personal history of nicotine dependence; Z90.49 Acquired absence of other specified parts of digestive tract
CPT/HCPCS: 36415; 49083; 80053; 82140; 83690; 83735; 85025; 85055; 85610; 85730; 96374; 96376; 99284; J1170

== ENCOUNTER 2022-11-14 12:48 | Outpatient (CLI) | payer OTHER, SELFPAY ==
--- NOTE | ~2022-11-14 | US_ITS ---
EXAMINATION: US paracentesis abd w/image DATE: 11/14/2022 13:57 INDICATION: Ascites. TECHNIQUE: The procedure and its risks, benefits, and alternatives were discussed with the patient. P otential risks discussed included bleeding and infection. The skin was prepped and draped in sterile fashion. 1% lidocaine was used for local anesthesia. Under ultrasound guidance, a 5 Fr catheter with trochar was advanced into the ascites in the right lower quadrant. Fluid was aspirated. The catheter was removed, and a dressing was applied. There were no immediate complications. FINDINGS: Ultrasound images demonstrate ascites and the catheter within the fluid. IMPRESSION: 1. Successful ultrasound-guided paracentesis yielding 5000 mL of yellow fluid. Reviewed, dictated and finalized at location A.
== END 2022-11-14 12:49 | disposition home or self-care (01) ==
PROVIDERS: PCP Hospitalist; Visit Provider Internal Medicine Hematology & Oncology
DX: R18.8 Other ascites (principal)
CPT/HCPCS: 49083; C1729

== ENCOUNTER 2022-11-21 09:09 | Emergency (ER) | payer OTHER, SELFPAY ==
--- NOTE | ~2022-11-21 | US_ITS ---
EXAMINATION: US paracentesis abd w/image DATE: 11/21/2022 10:58 INDICATION: Ascites. TECHNIQUE: The procedure and its risks, benefits, and alternatives were discussed with the patient. P otential risks discussed included bleeding and infection. The skin was prepped and draped in sterile fashion. 1% lidocaine was used for local anesthesia. Under ultrasound guidance, a 5 Fr catheter with trochar was advanced into the ascites in the left lower quadrant. Fluid was aspirated. The catheter w as removed, and a dressing was applied. There were no immediate complications. FINDINGS: Ultrasound images demonstrate ascites and the catheter within the fluid. IMPRESSION: 1. Successful ultrasound-guided paracentesis yielding 5000 mL of clear, gio-colored fluid. Reviewed, dictated and finalized at location A. IMPRESSION: 1. Successful ultrasound-guided paracentesis yielding 5000 mL of clear, gio- colored fluid.
[2022-11-21 09:10] VITALS: BP 146/104; PULSE 110; RESP 16; TEMP 36.6; O2SAT 100
--- NOTE | 2022-11-21 09:38 | ED.ABDPAIN ---
HPI - Abdominal Pain General Chief Complaint: Abdominal Pain Stated Complaint: abd distention Time Seen by Provider: 11/21/22 09:18 History of Present Illness HPI narrative: Patient is a 52-year-old male with history of liver cirrhosis who presents ER with abdominal distention and pain. Patient has history of recurrent ascites within the abdomen. He has had 2 paracentesis performed in the last 3-1/2 weeks. Each time it yielded 5 L of fluid. After his most recent 1 on 11/11/2022 he was instructed to follow-up with his liver team to have outpatient paracentesis. He contacted his liver team who then stated he need to contact his PCP to have outpatient paracentesis ordered. He contacted his PCP yesterday and has not heard back. He reports last night he had sudden swelling of his abdomen with pain. Denies fevers or chills or sweats. He reports compliance with his diuretics. Related Data Home Medications Medication Instructions Recorded Confirmed potassium chloride 20 mEq 20 meq PO DAILY 04/11/22 10/25/22 tablet,extended release(part/cryst) ondansetron 4 mg disintegrating 4 mg PO Q4H PRN Nausea 07/16/22 10/25/22 tablet furosemide 40 mg tablet 80 mg PO BID 08/25/22 10/25/22 hydrocodone 7.5 mg-acetaminophen 1 tablet PO Q8H PRN Pain 08/25/22 10/25/22 325 mg tablet Allergies Allergy/AdvReac Type Severity Reaction Status Date / Time ceftriaxone AdvReac Itching Verified 10/28/22 11:23 Review of Systems Review of Systems: All systems reviewed & are unremarkable except as noted in HPI and below Constitutional: Constitutional: Denies chills, Denies fatigue and Denies fever(s) [facility] Past Medical History Medical History Arthritis C. difficile colitis Cerebrovascular accident (2004) Chronic anemia Cirrhosis of liver with ascites Diarrhea Diastolic congestive heart failure Esophageal varices Gastric ulcer Gastroesophageal reflux disease GI bleed Hyperglycemia Hypertension Kidney stone Leukemia In childhood. Pancreatic abnormality Pericardial effusion Noted on CT and echocardiogram in August 2020. No evidence of tamponade. Portal hypertensive gastropathy Noted on endoscopy on 03/23/[address] Duran. Prostate cancer Status post radiation seed implantation. Smoker Spontaneous bacterial peritonitis (04/2020) Tobacco dependence Type 2 diabetes mellitus Surgical History Surgical History History of appendectomy History of cholecystectomy History of cystoscopy History of inguinal hernia repair History of lithotripsy History of repair of right rotator cuff Family History Family History Mother Family history of malignant neoplasm of breast in first degree relative Breast cancer Father Acute myocardial infarction Hypertension Heart disease Other Diabetes mellitus Maternal Unkle Other Family history of malignant neoplasm Social History Social History Social History: The patient is disabled Surrogate decision maker: Myra Worley () or Marnie Washington (aunt). Code status: Full code Smoking packs per day: 0.5 Smoking cigarettes per day: 10.0 Years smoked: 20 Smoking pack-years: 10.00 Smoking status: Former smoker Tobacco type: cigarettes Second hand tobacco smoke exposure: No Alcohol intake: never Drinks per week: 6 Alcohol use details: Former beer drinker. Substance use: never Substance use type: does not use Lack of Transportation: No Lack of Food: Never True Current Housing: I Have Housing Concerned About Future Housing: No Difficulty Paying Gas/Electric Bills: No Difficulty Paying for Meds: No Currently Unemployed: No Education: Associate Degree Difficulty w/ Childcare or Family Care: No Living a
[2022-11-21] MEDS: MORPHINE SULFATE (*CRX) 2 MG/ML INJ IV PUSH (09:49)
[2022-11-21 09:57] LABS: Basophils Percent Auto 0.6 % (0.2-1.2); Eosinophils Percent Auto 0.6 % (0-4.4); Hematocrit 40.5 % (42.0-52.0); Hemoglobin 12.3 g/dL (14.0-18.0); Immature Granulocyte Absolute 0.03 K/mm3 (0.00-0.031); Immature Granulocyte Percent A 0.4 % (0-0.5); Lymphocytes Absolute Auto 0.57 K/mm3 (0.9-3.2); Lymphocytes Percent Auto 8.4 % (18.3-44.2); Mean Corpuscular HGB Conc 30.4 g/dl (32-36); Mean Platelet Volume 10.3 fl (7.4-10.4); Monocytes Absolute Auto 0.9 K/mm3 (0.1-0.6); Monocytes Percent Auto 13.1 % (2.6-8.5); Neutrophils Absolute Auto 5.2 K/mm3 (1.3-6.7); Neutrophils Percent Auto 76.9 % (45.5-73.1); Platelet Count Result 150 k/mm3 (150-375); Red Blood Count 3.97 M/mm3 (4.6-6.20); Red Cell Distribution Width 14.1 % (11.5-14.5); White Blood Count 6.8 K/mm3 (4.5-10.0)
[2022-11-21 10:08] LABS: Prothrombin Time 13.4 Seconds (11.1-14.7)
[2022-11-21 10:09] LABS: Partial Thromboplastin Time 30.3 SECONDS (22.3-36.8)
[2022-11-21 10:20] LABS: Alanine Aminotransferase 14 U/L (6-50); Albumin Level 3.3 g/dL (3.5-5.1); Alkaline Phosphatase 497 U/L (38-126); Anion Gap 3 mmol/L (8-16); Aspartate Amino Transferase 44 U/L (17-59); Bilirubin,Total 1.6 mg/dL (0.2-1.3); Blood Urea Nitrogen 10 mg/dL (9-20); Calcium 8.3 mg/dL (8.4-10.2); Carbon Dioxide 30 mmol/L (22-30); Chloride 102 mmol/L (98-107); Estimated CRCL calculation 110 ml/min; Estimated Glomerular Filt Rate > 60; Glucose 145 mg/dL (65-110); Potassium 3.9 mmol/L (3.4-5.0); Sodium 135 mmol/L (137-145)
--- NOTE | 2022-11-21 10:55 | PC.NURSE ---
Pt returns from ultrasound. Pt states during the paracentesis pt had 5L of fluids removed and that he has another 2-3L that needs to be removed. States his pain is returning after the medication and is requesting more.
== END 2022-11-21 12:08 | disposition home or self-care (01) ==
PROVIDERS: Emergency Provider Emergency Medicine; PCP Hospitalist
DX: R18.8 Other ascites (principal); K74.60 Unspecified cirrhosis of liver; M19.90 Unspecified osteoarthritis, unspecified site; I11.0 Hypertensive heart disease with heart failure; I50.9 Heart failure, unspecified; E11.9 Type 2 diabetes mellitus without complications
CPT/HCPCS: 36415; 49083; 80053; 85025; 85610; 85730; 96374; 99284; J2270

== ENCOUNTER 2022-11-26 11:08 | Outpatient (CLI) | payer OTHER, SELFPAY ==
--- NOTE | ~2022-11-26 | US_ITS ---
EXAMINATION: US paracentesis abd w/image DATE: 11/26/22 INDICATION: Ascites. TECHNIQUE: The procedure and its risks, benefits, and alternatives were discussed with the patient. P otential risks discussed included bleeding and infection. The skin was prepped and draped in sterile fashion. 1% lidocaine was used for local anesthesia. Under ultrasound guidance, a 5 Fr catheter with trochar was advanced into the ascites in the left lower quadrant. Fluid was aspirated. The catheter w as removed, and a dressing was applied. There were no immediate complications. FINDINGS: Ultrasound images demonstrate ascites and the catheter within the fluid. IMPRESSION: 1. Successful ultrasound-guided paracentesis yielding 5,000 mL of gio-colored fluid. Reviewed, dictated and finalized at location A. IMPRESSION: 1. Successful ultrasound-guided paracentesis yielding 5,000 mL of gio-colore d fluid.
== END 2022-11-26 11:09 | disposition home or self-care (01) ==
LOC: ANHIMG 18:02
PROVIDERS: PCP Hospitalist; Visit Provider Internal Medicine Hematology & Oncology
DX: R18.8 Other ascites (principal)
CPT/HCPCS: 49083

== ENCOUNTER 2022-11-28 11:03 | Outpatient (CLI) | payer OTHER, SELFPAY ==
--- NOTE | ~2022-11-28 | US_ITS ---
EXAMINATION: US paracentesis abd w/image DATE: 11/28/2022 12:23 INDICATION: Ascites. TECHNIQUE: The procedure and its risks, benefits, and alternatives were discussed with the patient. P otential risks discussed included bleeding and infection. The skin was prepped and draped in sterile fashion. 1% lidocaine was used for local anesthesia. Under ultrasound guidance, a 5 Fr catheter with trochar was advanced into the ascites in the right lower quadrant. Fluid was aspirated. The catheter was removed, and a dressing was applied. There were no immediate complications. FINDINGS: Ultrasound images demonstrate ascites and the catheter within the fluid. IMPRESSION: 1. Successful ultrasound-guided paracentesis yielding 2900 mL of yellow fluid. Reviewed, dictated and finalized at location A.
== END 2022-11-28 11:04 | disposition home or self-care (01) ==
PROVIDERS: PCP Hospitalist; Visit Provider Internal Medicine Hematology & Oncology
DX: R18.8 Other ascites (principal)
CPT/HCPCS: 49083

== ENCOUNTER 2022-12-02 02:59 | Emergency (ER) | payer OTHER, SELFPAY ==
[2022-12-02] VITALS (12 sets, daily range): BP systolic 102–124; BP diastolic 68–90; PULSE 100–110; RESP 12–26; TEMP 36.8; O2SAT 85–100
--- NOTE | ~2022-12-02 | CT_ITS ---
CT of the Abdomen and Pelvis: Indication: Abdominal pain Technique: 2.5 mm axial scans were obtained through the abdomen and pelvis following intravenous adm inistration of 100 cc of Omnipaque 350. Dose reduction technique was used on this scan by utilizing a utomated exposure control and iterative reconstruction technique. The dose-length product (DLP) was 1 068.34 mGy-cm. COMPARISON: 10/28/2022 Findings: Scans through the lung bases are unremarkable. Diffuse micronodular contour of liver is consistent with cirrhosis. There is associated splenomegaly, with spleen measuring 17.2 cm in length. Cholecystectomy clips are present. The pancreas, adrenals a nd kidneys are within normal limits. No evidence of aortic aneurysm. No lymphadenopathy. There is wall thickening of the ascending and transverse colon. No bowel obstruction. There is promin ent stool at the rectum with mild adjacent haziness. There is no evidence to suggest acute appendicit is. Small umbilical hernia contains fat and fluid. Images through the pelvis were performed. Urinary bladder unremarkable. Prostate gland and seminal ve sicles are unremarkable.Small to moderate abdominopelvic ascites noted. Stable compression deformities of T10 and T11. Impression: Cirrhotic liver with associated splenomegaly and small to moderate abdominopelvic ascites. Wall thickening of the ascending and transverse colon. This may be reactive due to the presence of as cites. Correlate for infectious/inflammatory colitis. Probable stercoral proctitis. Reviewed, dictated and finalized at [facility]. Impression: Cirrhotic liver with associated splenomegaly and small to moderate abdominopelv ic ascites. Wall thickening of the ascending and transverse colon. This may be reactive due to the presence of ascites. Correlate for infectious/inflammatory colitis. Probable stercoral proctitis.
[2022-12-02] MEDS: MORPHINE SULFATE (*CRX) 4 MG/ML INJ IV PUSH (04:28)
[2022-12-02] MEDS: ONDANSETRON INJ 4 MG/2 ML VIAL IV PUSH (04:28)
--- NOTE | 2022-12-02 04:48 | ED.ABDPAIN ---
HPI - Abdominal Pain General Chief Complaint: Recheck/Abnormal Lab/Rx Stated Complaint: LEAK FROM PARACENTESIS SITE Time Seen by Provider: 12/02/22 03:39 History of Present Illness HPI narrative: This is a 52-year-old male with past history of cirrhosis, who returns to the emergency department complaining of leaking from his paracentesis site and abdominal pain. He states leakage began after his most recent therapeutic paracentesis. His applied [id number] skin glue with improvement of leakage. Today however he swam in a pool and noticed breakdown of the bandage with leaking and sharp abdominal pain Related Data Home Medications Medication Instructions Recorded Confirmed potassium chloride 20 mEq 20 meq PO DAILY 04/11/22 10/25/22 tablet,extended release(part/cryst) ondansetron 4 mg disintegrating 4 mg PO Q4H PRN Nausea 07/16/22 10/25/22 tablet furosemide 40 mg tablet 80 mg PO BID 08/25/22 10/25/22 hydrocodone 7.5 mg-acetaminophen 1 tablet PO Q8H PRN Pain 08/25/22 10/25/22 325 mg tablet Allergies Allergy/AdvReac Type Severity Reaction Status Date / Time ceftriaxone AdvReac Itching Verified 12/02/22 03:24 Review of Systems Review of Systems: CONSTITUTIONAL: Denies fever, chills, or sweats. CARDIOVASCULAR: Denies chest pain, palpitations, or edema. RESPIRATORY: Denies cough or dyspnea. GASTROINTESTINAL: Sharp abdominal pain denies nausea, vomiting, or diarrhea. GENITOURINARY: Denies dysuria or hematuria. SKIN: Denies rash or itching. MUSCULOSKELETAL: Denies back pain, joint pain, or myalgia. NEUROLOGIC: Denies headache, numbness, dizziness, or weakness. PSYCHIATRIC: Denies anxiety or depression. [facility] Past Medical History Medical History Arthritis C. difficile colitis Cerebrovascular accident (2004) Chronic anemia Cirrhosis of liver with ascites Diarrhea Diastolic congestive heart failure Esophageal varices Gastric ulcer Gastroesophageal reflux disease GI bleed Hyperglycemia Hypertension Kidney stone Leukemia In childhood. Pancreatic abnormality Pericardial effusion Noted on CT and echocardiogram in August 2020. No evidence of tamponade. Portal hypertensive gastropathy Noted on endoscopy on 03/23/[address] Duran. Prostate cancer Status post radiation seed implantation. Smoker Spontaneous bacterial peritonitis (04/2020) Tobacco dependence Type 2 diabetes mellitus Surgical History Surgical History History of appendectomy History of cholecystectomy History of cystoscopy History of inguinal hernia repair History of lithotripsy History of repair of right rotator cuff Family History Family History Mother Family history of malignant neoplasm of breast in first degree relative Breast cancer Father Acute myocardial infarction Hypertension Heart disease Other Diabetes mellitus Maternal Unkle Other Family history of malignant neoplasm Social History Social History Social History: The patient is disabled Surrogate decision maker: Myra Worley () or Marnie Washington (aunt). Code status: Full code Smoking packs per day: 0.5 Smoking cigarettes per day: 10.0 Years smoked: 20 Smoking pack-years: 10.00 Smoking status: Former smoker Tobacco type: cigarettes Second hand tobacco smoke exposure: No Alcohol intake: never Drinks per week: 6 Alcohol use details: Former beer drinker. Substance use: never Substance use type: does not use Lack of Transportation: No Lack of Food: Never True Current Housing: I Have Housing Concerned About Future Housing: No Difficulty Paying Gas/Electric Bills: No Difficulty Paying for Meds: No Currently Unemployed: No Education: Associate Degree Difficult
[2022-12-02 05:34] LABS: Basophils Percent Auto 0.6 % (0.2-1.2); Eosinophils Absolute Auto 0.1 K/mm3 (0-0.3); Eosinophils Percent Auto 1.3 % (0-4.4); Hematocrit 32.5 % (42.0-52.0); Hemoglobin 9.8 g/dL (14.0-18.0); Immature Granulocyte Absolute 0.02 K/mm3 (0.00-0.031); Immature Granulocyte Percent A 0.4 % (0-0.5); Lymphocytes Absolute Auto 0.88 K/mm3 (0.9-3.2); Lymphocytes Percent Auto 16.8 % (18.3-44.2); Mean Corpuscular HGB Conc 30.2 g/dl (32-36); Mean Corpuscular Volume 99.4 fl (80-100); Mean Platelet Volume 9.9 fl (7.4-10.4); Monocytes Absolute Auto 0.7 K/mm3 (0.1-0.6); Monocytes Percent Auto 14.1 % (2.6-8.5); Neutrophils Absolute Auto 3.5 K/mm3 (1.3-6.7); Neutrophils Percent Auto 66.8 % (45.5-73.1); Platelet Count Result 102 k/mm3 (150-375); Red Blood Count 3.27 M/mm3 (4.6-6.20); Red Cell Distribution Width 14.8 % (11.5-14.5); White Blood Count 5.2 K/mm3 (4.5-10.0)
[2022-12-02 05:48] LABS: Alanine Aminotransferase 13 U/L (6-50); Albumin Level 2.8 g/dL (3.5-5.1); Alkaline Phosphatase 433 U/L (38-126); Anion Gap 2 mmol/L (8-16); Aspartate Amino Transferase 52 U/L (17-59); Bilirubin,Total 0.9 mg/dL (0.2-1.3); Blood Urea Nitrogen 10 mg/dL (9-20); Calcium 7.7 mg/dL (8.4-10.2); Carbon Dioxide 30 mmol/L (22-30); Chloride 103 mmol/L (98-107); Estimated CRCL calculation 94 ml/min; Estimated Glomerular Filt Rate > 60; Glucose 101 mg/dL (65-110); Potassium 3.8 mmol/L (3.4-5.0); Sodium 135 mmol/L (137-145)
[2022-12-02 06:17] LABS: Appearance Peritoneal Fluid Hazy (Clear); Color Peritoneal Fluid Yellow (Colorless); Source Peritoneal Fluid Peritoneal Fluid
[2022-12-02] MEDS: HYDROmorphone HCL INJ (*CRX) 1 MG/ML SYR IV PUSH (06:17)
[2022-12-02 06:21] LABS: Nucleated Cells Peritoneal Flu 191 /uL (0-500); RBC Peritoneal Fluid 3000 /uL (0-100000)
[2022-12-02 06:33] LABS: Lymphocytes Peritoneal Fluid 16 %; Macrophages Peritoneal Fluid 4 %; Mesothelial Cells Peritoneal Fluid 67 %; Monocytes Peritoneal Fluid 8 %; Neutrophils Peritoneal Fluid 5 % (0-25)
[2022-12-10 20:35] LABS: Glucose Peritoneal Fluid 117 mg/dL; Total Protein Peritoneal Fluid <3.0 g/dL
== END 2022-12-02 08:29 | disposition home or self-care (01) ==
PROVIDERS: Emergency Provider Preventive Medicine Aerospace Medicine; PCP Hospitalist
DX: R18.8 Other ascites (principal); K74.60 Unspecified cirrhosis of liver; R10.84 Generalized abdominal pain; I50.30 Unspecified diastolic (congestive) heart failure; E11.9 Type 2 diabetes mellitus without complications; K21.9 Gastro-esophageal reflux disease without esophagitis; I11.0 Hypertensive heart disease with heart failure; M19.90 Unspecified osteoarthritis, unspecified site; Z86.73 Personal history of transient ischemic attack (TIA), and cerebral infarction without residual deficits; Z85.46 Personal history of malignant neoplasm of prostate; Z92.3 Personal history of irradiation; Z87.442 Personal history of urinary calculi; Z87.891 Personal history of nicotine dependence; Z90.49 Acquired absence of other specified parts of digestive tract
CPT/HCPCS: 36415; 49083; 74177; 80053; 82945; 83615; 84157; 85025; 87070; 87075; 87077; 87186; 87205; 89051; 96374; 96375; 99284; J1170; J2270; J2405; Q9967

== ENCOUNTER 2022-12-05 11:19 | Outpatient (CLI) | payer OTHER, SELFPAY ==
--- NOTE | ~2022-12-05 | US_ITS ---
EXAMINATION: US paracentesis abd w/image DATE: 12/05/2022 12:20 INDICATION: Ascites. Cirrhosis. TECHNIQUE: The procedure and its risks and benefits were discussed with the patient. Potential risks discussed included bleeding and infection. The skin was prepped and draped in sterile fashion. 1% lid ocaine was used for local anesthesia. Under ultrasound guidance, a 5 Fr catheter with trochar was adv anced into the ascites in the left lower quadrant. Fluid was aspirated into vacuum bottles. The georgette ter was removed, and a dressing was applied. There were no immediate complications. FINDINGS: Ultrasound images demonstrate ascites and the catheter within the fluid. IMPRESSION: 1. Successful ultrasound-guided paracentesis yielding 5000 mL of clear yellow fluid. Reviewed, dictated and finalized at location A.
== END 2022-12-05 11:20 | disposition home or self-care (01) ==
PROVIDERS: PCP Hospitalist; Visit Provider Internal Medicine Hematology & Oncology
DX: R18.8 Other ascites (principal)
CPT/HCPCS: 49083

== ENCOUNTER 2022-12-08 00:55 | Emergency (ER) | payer OTHER, SELFPAY ==
[2022-12-08] VITALS (32 sets, daily range): BP systolic 129–161; BP diastolic 84–126; PULSE 88–119; RESP 13–27; TEMP 36.9; O2SAT 98–100
--- NOTE | 2022-12-08 01:19 | ED.GENADULT ---
HPI - General Adult General Chief complaint: Abdominal Pain Stated complaint: abd pain Time Seen by Provider: 12/08/22 01:23 History of Present Illness HPI narrative: This is a 52-year-old male with liver cirrhosis and recurrent ascites presenting ED for ascites. Patient has scheduled ascites weekly. he had a tap 2 days ago but has the rapid reaccumulation of fluid. Now he has diffuse abdominal pain. No fever chills nausea vomiting diarrhea. Related Data Home Medications Medication Instructions Recorded Confirmed potassium chloride 20 mEq 20 meq PO DAILY 04/11/22 10/25/22 tablet,extended release(part/cryst) ondansetron 4 mg disintegrating 4 mg PO Q4H PRN Nausea 07/16/22 10/25/22 tablet furosemide 40 mg tablet 80 mg PO BID 08/25/22 10/25/22 hydrocodone 7.5 mg-acetaminophen 1 tablet PO Q8H PRN Pain 08/25/22 10/25/22 325 mg tablet Allergies Allergy/AdvReac Type Severity Reaction Status Date / Time ceftriaxone AdvReac Itching Verified 12/02/22 03:24 [facility] Past Medical History Medical History Arthritis C. difficile colitis Cerebrovascular accident (2004) Chronic anemia Cirrhosis of liver with ascites Diarrhea Diastolic congestive heart failure Esophageal varices Gastric ulcer Gastroesophageal reflux disease GI bleed Hyperglycemia Hypertension Kidney stone Leukemia In childhood. Pancreatic abnormality Pericardial effusion Noted on CT and echocardiogram in August 2020. No evidence of tamponade. Portal hypertensive gastropathy Noted on endoscopy on 03/23/[address] Duran. Prostate cancer Status post radiation seed implantation. Smoker Spontaneous bacterial peritonitis (04/2020) Tobacco dependence Type 2 diabetes mellitus Surgical History Surgical History History of appendectomy History of cholecystectomy History of cystoscopy History of inguinal hernia repair History of lithotripsy History of repair of right rotator cuff Family History Family History Mother Family history of malignant neoplasm of breast in first degree relative Breast cancer Father Acute myocardial infarction Hypertension Heart disease Other Diabetes mellitus Maternal Unkle Other Family history of malignant neoplasm Social History Social History Social History: The patient is disabled Surrogate decision maker: Myra Worley () or Marnie Washington (aunt). Code status: Full code Smoking packs per day: 0.5 Smoking cigarettes per day: 10.0 Years smoked: 20 Smoking pack-years: 10.00 Smoking status: Former smoker Tobacco type: cigarettes Second hand tobacco smoke exposure: No Alcohol intake: never Drinks per week: 6 Alcohol use details: Former beer drinker. Substance use: never Substance use type: does not use Lack of Transportation: No Lack of Food: Never True Current Housing: I Have Housing Concerned About Future Housing: No Difficulty Paying Gas/Electric Bills: No Difficulty Paying for Meds: No Currently Unemployed: No Education: Associate Degree Difficulty w/ Childcare or Family Care: No Living arrangements: with family Additional living arrangements comments: Resides in [place] with his and son. 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 Spiritual care concerns: No Agree to blood products: Yes Exam Narrative: APPEARANCE: No apparent distress. Head: atraumatic. EYES: EOMI, NOSE: Atraumatic NECK: Trachea midline RESPIRATORY: No increased rate of breathing CARdiac: Tachycardic abdominal: distended, tense, tender MUSCULOSKELETAL: No obvious deformities NEURO: Alert. Moving 4/4 extremities SKIN:: Warm, dry. Jacquie
[2022-12-08] MEDS: HYDROmorphone HCL INJ (*CRX) 1 MG/ML SYR 0.5 MG IV PUSH ×3 (01:30→06:50)
[2022-12-08 01:44] LABS: Basophils Percent Auto 0.5 % (0.2-1.2); Eosinophils Absolute Auto 0.1 K/mm3 (0-0.3); Eosinophils Percent Auto 1.6 % (0-4.4); Hematocrit 39.2 % (42.0-52.0); Hemoglobin 11.6 g/dL (14.0-18.0); Immature Granulocyte Absolute 0.05 K/mm3 (0.00-0.031); Immature Granulocyte Percent A 0.7 % (0-0.5); Lymphocytes Absolute Auto 0.96 K/mm3 (0.9-3.2); Lymphocytes Percent Auto 13.1 % (18.3-44.2); Mean Corpuscular HGB Conc 29.6 g/dl (32-36); Mean Corpuscular Hemoglobin 29.5 pg (26-34); Mean Corpuscular Volume 99.7 fl (80-100); Mean Platelet Volume 10.5 fl (7.4-10.4); Monocytes Absolute Auto 0.9 K/mm3 (0.1-0.6); Monocytes Percent Auto 12.7 % (2.6-8.5); Neutrophils Absolute Auto 5.2 K/mm3 (1.3-6.7); Neutrophils Percent Auto 71.4 % (45.5-73.1); Platelet Count Result 159 k/mm3 (150-375); Red Blood Count 3.93 M/mm3 (4.6-6.20); Red Cell Distribution Width 15.7 % (11.5-14.5); White Blood Count 7.3 K/mm3 (4.5-10.0)
[2022-12-08 01:56] LABS: Albumin Level 3.1 g/dL (3.5-5.1)
[2022-12-08] MEDS: LIDOCAINE HCL 1% LOCAL INJ 10 ML VIAL (03:00)
[2022-12-08 03:09] LABS: Alanine Aminotransferase 13 U/L (6-50); Albumin Level 2.8 g/dL (3.5-5.1); Alkaline Phosphatase 298 U/L (38-126); Anion Gap 5 mmol/L (8-16); Aspartate Amino Transferase 48 U/L (17-59); Bilirubin,Total 0.6 mg/dL (0.2-1.3); Blood Urea Nitrogen 10 mg/dL (9-20); Calcium 8.1 mg/dL (8.4-10.2); Carbon Dioxide 24 mmol/L (22-30); Chloride 105 mmol/L (98-107); Estimated CRCL calculation 84 ml/min; Estimated Glomerular Filt Rate > 60; Glucose 121 mg/dL (65-110); Lipase 106 U/L (23-300); Potassium 4.9 mmol/L (3.4-5.0); Sodium 134 mmol/L (137-145)
[2022-12-08 04:05] LABS: Appearance Peritoneal Fluid Clear (Clear); Source Peritoneal Fluid Peritoneal Fluid
[2022-12-08 04:06] LABS: Color Peritoneal Fluid Yellow (Colorless); Lymphocytes Peritoneal Fluid 33 %; Macrophages Peritoneal Fluid 27 %; Mesothelial Cells Peritoneal Fluid 27 %; Monocytes Peritoneal Fluid 16 %; Neutrophils Peritoneal Fluid 24 % (0-25)
[2022-12-08 04:12] LABS: Nucleated Cells Peritoneal Flu 147 /uL (0-500)
[2022-12-08 04:13] LABS: RBC Peritoneal Fluid < 2000 /uL (0-100000)
[2022-12-08 04:32] LABS: Lipase 92 U/L (23-300)
[2022-12-08] MEDS: ALBUMIN HUMAN 25% 25 GM/100 ML 200 ML IVPB ×2 (06:02→07:40)
--- NOTE | 2022-12-08 09:16 | PC.NURSE ---
2nd 25gm bottle of albumin has finished and pt has received a total dose of 50gms.
[2022-12-13 10:49] LABS: Albumin Peritoneal Fluid 0.2 g/dL
[2022-12-14 17:04] LABS: Amylase Peritoneal Fluid <10 U/L
[2022-12-14 18:55] LABS: Glucose Peritoneal Fluid 157 mg/dL; LDH Peritoneal Fluid 18 U/L (<63); Total Protein Peritoneal Fluid <3.0 g/dL
== END 2022-12-08 09:35 | disposition home or self-care (01) ==
PROVIDERS: Emergency Provider Emergency Medicine; PCP Hospitalist
DX: K74.60 Unspecified cirrhosis of liver (principal); R18.8 Other ascites; I11.0 Hypertensive heart disease with heart failure; I50.30 Unspecified diastolic (congestive) heart failure; Z79.891 Long term (current) use of opiate analgesic; Z87.891 Personal history of nicotine dependence; Z86.73 Personal history of transient ischemic attack (TIA), and cerebral infarction without residual deficits
CPT/HCPCS: 12001; 36415; 49083; 80053; 82040; 82042; 82150; 82945; 83615; 83690; 84157; 85025; 87070; 87075; 87205; 89051; 96365; 96366; 96375; 96376; 99282; 99284; J1170; P9047

== ENCOUNTER 2022-12-08 22:10 | Emergency (ER) | payer OTHER, SELFPAY ==
[2022-12-08 22:08] VITALS: BP 132/101; PULSE 104; RESP 15; TEMP 36.6; O2SAT 100
--- NOTE | 2022-12-08 22:28 | ED.GENADULT ---
HPI - General Adult General Chief complaint: Unspecified Stated complaint: PARACENTISIS SITE LEAKING Time Seen by Provider: 12/08/22 22:18 History of Present Illness HPI narrative: This is a 52-year-old is well known to our emergency department for recurrent ascites presenting with leakage from paracentesis site performed last night. Patient 7 L removed last night and been doing well until he started to leak about an hour prior to arrival. No other complaints. He is still trying to speak with his liver specialist in regards to his recurrent ascites. Related Data Home Medications Medication Instructions Recorded Confirmed potassium chloride 20 mEq 20 meq PO DAILY 04/11/22 10/25/22 tablet,extended release(part/cryst) ondansetron 4 mg disintegrating 4 mg PO Q4H PRN Nausea 07/16/22 10/25/22 tablet furosemide 40 mg tablet 80 mg PO BID 08/25/22 10/25/22 hydrocodone 7.5 mg-acetaminophen 1 tablet PO Q8H PRN Pain 08/25/22 10/25/22 325 mg tablet Allergies Allergy/AdvReac Type Severity Reaction Status Date / Time ceftriaxone AdvReac Itching Verified 12/02/22 03:24 [facility] Past Medical History Medical History Arthritis C. difficile colitis Cerebrovascular accident (2004) Chronic anemia Cirrhosis of liver with ascites Diarrhea Diastolic congestive heart failure Esophageal varices Gastric ulcer Gastroesophageal reflux disease GI bleed Hyperglycemia Hypertension Kidney stone Leukemia In childhood. Pancreatic abnormality Pericardial effusion Noted on CT and echocardiogram in August 2020. No evidence of tamponade. Portal hypertensive gastropathy Noted on endoscopy on 03/23/[address] Duran. Prostate cancer Status post radiation seed implantation. Smoker Spontaneous bacterial peritonitis (04/2020) Tobacco dependence Type 2 diabetes mellitus Surgical History Surgical History History of appendectomy History of cholecystectomy History of cystoscopy History of inguinal hernia repair History of lithotripsy History of repair of right rotator cuff Family History Family History Mother Family history of malignant neoplasm of breast in first degree relative Breast cancer Father Acute myocardial infarction Hypertension Heart disease Other Diabetes mellitus Maternal Unkle Other Family history of malignant neoplasm Social History Social History Social History: The patient is disabled Surrogate decision maker: Myra Worley () or Marnie Washington (aunt). Code status: Full code Smoking packs per day: 0.5 Smoking cigarettes per day: 10.0 Years smoked: 20 Smoking pack-years: 10.00 Smoking status: Former smoker Tobacco type: cigarettes Second hand tobacco smoke exposure: No Alcohol intake: never Drinks per week: 6 Alcohol use details: Former beer drinker. Substance use: never Substance use type: does not use Lack of Transportation: No Lack of Food: Never True Current Housing: I Have Housing Concerned About Future Housing: No Difficulty Paying Gas/Electric Bills: No Difficulty Paying for Meds: No Currently Unemployed: No Education: Associate Degree Difficulty w/ Childcare or Family Care: No Living arrangements: with family Additional living arrangements comments: Resides in [place] with his and son. 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 Spiritual care concerns: No Agree to blood products: Yes Exam Narrative: APPEARANCE: No apparent distress. Head: atraumatic. EYES: EOMI, NOSE: Atraumatic NECK: Trachea midline RESPIRATORY: No increased rate of breathing CARDIOVASCULAR: RRR, ABDOMINAL: Abdomen is distend
[2022-12-08 22:31] VITALS: BP 134/90
== END 2022-12-08 22:50 | disposition home or self-care (01) ==
PROVIDERS: Emergency Provider Emergency Medicine; PCP Hospitalist
DX: R18.8 Other ascites (principal); I11.0 Hypertensive heart disease with heart failure; I50.30 Unspecified diastolic (congestive) heart failure; E11.9 Type 2 diabetes mellitus without complications; Z79.891 Long term (current) use of opiate analgesic; Z86.73 Personal history of transient ischemic attack (TIA), and cerebral infarction without residual deficits; Z87.891 Personal history of nicotine dependence
CPT/HCPCS: 12001; 99282

== ENCOUNTER 2022-12-12 10:56 | Outpatient (CLI) | payer OTHER, SELFPAY ==
--- NOTE | ~2022-12-12 | US_ITS ---
EXAMINATION: US paracentesis abd w/image DATE: 12/12/2022 12:06 INDICATION: Ascites. TECHNIQUE: The procedure and its risks and benefits were discussed with the patient. Potential risks discussed included bleeding and infection. The skin was prepped and draped in sterile fashion. 1% lid ocaine was used for local anesthesia. Under ultrasound guidance, a 5 Fr catheter with trochar was adv anced into the ascites in the right lower quadrant. Fluid was aspirated into vacuum bottles. The cath eter was removed, and a dressing was applied. There were no immediate complications. FINDINGS: Ultrasound images demonstrate ascites and the catheter within the fluid. IMPRESSION: 1. Successful ultrasound-guided paracentesis yielding 6000 mL of clear yellow fluid. Reviewed, dictated and finalized at location A.
== END 2022-12-12 10:57 | disposition home or self-care (01) ==
PROVIDERS: PCP Hospitalist; Visit Provider Internal Medicine Hematology & Oncology
DX: R18.8 Other ascites (principal)
CPT/HCPCS: 49083

== ENCOUNTER 2022-12-15 11:07 | Outpatient (CLI) | payer OTHER, SELFPAY ==
--- NOTE | ~2022-12-15 | US_ITS ---
EXAMINATION: US paracentesis abd w/image DATE: 12/15/2022 12:10 INDICATION: Ascites. TECHNIQUE: The procedure and its risks, benefits, and alternatives were discussed with the patient. P otential risks discussed included bleeding and infection. The skin was prepped and draped in sterile fashion. 1% lidocaine was used for local anesthesia. Under ultrasound guidance, a 5 Fr catheter with trochar was advanced into the ascites in the left lower quadrant. Fluid was aspirated. The catheter w as removed, and a dressing was applied. There were no immediate complications. FINDINGS: Ultrasound images demonstrate ascites and the catheter within the fluid. IMPRESSION: 1. Successful ultrasound-guided paracentesis yielding 5000 mL of yellow fluid. Reviewed, dictated and finalized at location A.
== END 2022-12-15 11:08 | disposition home or self-care (01) ==
PROVIDERS: PCP Hospitalist; Visit Provider Internal Medicine Hematology & Oncology
DX: R18.8 Other ascites (principal)
CPT/HCPCS: 49083

== ENCOUNTER 2022-12-18 11:07 | Outpatient (CLI) | payer OTHER, SELFPAY ==
--- NOTE | ~2022-12-18 | US_ITS ---
EXAMINATION: US paracentesis abd w/image DATE: 12/18/2022 12:12 INDICATION: Ascites. TECHNIQUE: The procedure and its risks, benefits, and alternatives were discussed with the patient. P otential risks discussed included bleeding and infection. The skin was prepped and draped in sterile fashion. 1% lidocaine was used for local anesthesia. Under ultrasound guidance, a 5 Fr catheter with trochar was advanced into the ascites in the right lower quadrant. Fluid was aspirated. The catheter was removed, and a dressing was applied. There were no immediate complications. FINDINGS: Ultrasound images demonstrate ascites and the catheter within the fluid. IMPRESSION: 1. Successful ultrasound-guided paracentesis yielding 5000 mL of yellow fluid. Reviewed, dictated and finalized at location A.
== END 2022-12-18 11:08 | disposition home or self-care (01) ==
PROVIDERS: PCP Hospitalist; Visit Provider Internal Medicine Hematology & Oncology
DX: R18.8 Other ascites (principal)
CPT/HCPCS: 49083

== ENCOUNTER 2022-12-24 12:48 | Outpatient (CLI) | payer OTHER, SELFPAY ==
--- NOTE | ~2022-12-24 | US_ITS ---
EXAMINATION: US paracentesis abd w/image DATE: 12/24/2022 14:16 INDICATION: Ascites. TECHNIQUE: The procedure and its risks and benefits were discussed with the patient. Potential risks discussed included bleeding and infection. The skin was prepped and draped in sterile fashion. 1% lid ocaine was used for local anesthesia. Under ultrasound guidance, a 5 Fr catheter with trochar was adv anced into the ascites in the right lower quadrant. Fluid was aspirated into vacuum bottles. The cath eter was removed, and a dressing was applied. There were no immediate complications. FINDINGS: Ultrasound images demonstrate ascites and the catheter within the fluid. IMPRESSION: 1. Successful ultrasound-guided paracentesis yielding 1650 mL of light gio-colored fluid. Reviewed, dictated and finalized at location A. IMPRESSION: 1. Successful ultrasound-guided paracentesis yielding 1650 mL of light gio-c olored fluid.
== END 2022-12-24 12:49 | disposition home or self-care (01) ==
PROVIDERS: PCP Hospitalist; Visit Provider Internal Medicine Hematology & Oncology
DX: R18.8 Other ascites (principal)
CPT/HCPCS: 49083

== ENCOUNTER 2022-12-30 11:10 | Outpatient (CLI) | payer OTHER, SELFPAY ==
--- NOTE | ~2022-12-30 | US_ITS ---
EXAMINATION: US paracentesis abd w/image DATE: 12/30/2022 12:42 INDICATION: Ascites. TECHNIQUE: The procedure and its risks, benefits, and alternatives were discussed with the patient. P otential risks discussed included bleeding and infection. The skin was prepped and draped in sterile fashion. 1% lidocaine was used for local anesthesia. Under ultrasound guidance, a 5 Fr catheter with trochar was advanced into the ascites in the left lower quadrant. Fluid was aspirated. The catheter w as removed, and a dressing was applied. There were no immediate complications. FINDINGS: Ultrasound images demonstrate ascites and the catheter within the fluid. IMPRESSION: 1. Successful ultrasound-guided paracentesis yielding 5000 mL of yellow fluid. Reviewed, dictated and finalized at location A.
== END 2022-12-30 11:11 | disposition home or self-care (01) ==
PROVIDERS: PCP Hospitalist; Visit Provider Internal Medicine Hematology & Oncology
DX: K74.60 Unspecified cirrhosis of liver (principal)
CPT/HCPCS: 49083

== ENCOUNTER 2023-01-01 10:57 | Outpatient (CLI) | payer OTHER, SELFPAY ==
--- NOTE | ~2023-01-01 | US_ITS ---
EXAMINATION: US paracentesis abd w/image DATE: 01/01/2023 13:28 INDICATION: Ascites. TECHNIQUE: The procedure and its risks, benefits, and alternatives were discussed with the patient. P otential risks discussed included bleeding and infection. The skin was prepped and draped in sterile fashion. 1% lidocaine was used for local anesthesia. Under ultrasound guidance, a 5 Fr catheter with trochar was advanced into the ascites in the left lower quadrant. Fluid was aspirated. The catheter w as removed, and a dressing was applied. There were no immediate complications. FINDINGS: Ultrasound images demonstrate ascites and the catheter within the fluid. IMPRESSION: 1. Successful ultrasound-guided paracentesis yielding 5000 mL of yellow fluid. Reviewed, dictated and finalized at location A.
[2023-01-01 11:44] LABS: Immature Platelet Fraction Pct 5.2 % (0.9-11.2); Mean Platelet Volume 10.7 fl (7.4-10.4); Platelet Count Result 127 k/mm3 (150-375)
[2023-01-01 11:48] LABS: Prothrombin Time 13.5 Seconds (11.1-14.7)
== END 2023-01-01 10:58 | disposition home or self-care (01) ==
LOC: ANHIMG 11:00
PROVIDERS: Radiology Diagnostic Radiology; PCP Hospitalist; Visit Provider Internal Medicine Hematology & Oncology
DX: R18.8 Other ascites (principal); D64.9 Anemia, unspecified
CPT/HCPCS: 36415; 49083; 85049; 85055; 85610

== ENCOUNTER 2023-01-06 11:05 | Outpatient (CLI) | payer OTHER, SELFPAY ==
--- NOTE | ~2023-01-06 | US_ITS ---
EXAMINATION: US paracentesis abd w/image DATE: 01/06/2023 12:05 INDICATION: Ascites. TECHNIQUE: The procedure and its risks and benefits were discussed with the patient. Potential risks discussed included bleeding and infection. The skin was prepped and draped in sterile fashion. 1% lid ocaine was used for local anesthesia. Under ultrasound guidance, a 5 Fr catheter with trochar was adv anced into the ascites in the left lower quadrant. Fluid was aspirated into vacuum bottles. The georgette ter was removed, and a dressing was applied. There were no immediate complications. FINDINGS: Ultrasound images demonstrate ascites and the catheter within the fluid. IMPRESSION: 1. Successful ultrasound-guided paracentesis yielding 5000 mL of light yellow fluid. Reviewed, dictated and finalized at location A.
== END 2023-01-06 11:06 | disposition home or self-care (01) ==
LOC: ANHIMG 11:07
PROVIDERS: PCP Hospitalist; Visit Provider Internal Medicine Hematology & Oncology
DX: R18.8 Other ascites (principal)
CPT/HCPCS: 49083

== ENCOUNTER 2023-01-09 09:07 | Outpatient (CLI) | payer OTHER, SELFPAY ==
--- NOTE | ~2023-01-09 | US_ITS ---
EXAMINATION: US paracentesis abd w/image DATE: 01/09/2023 10:37 INDICATION: Ascites. TECHNIQUE: The procedure and its risks and benefits were discussed with the patient. Potential risks discussed included bleeding and infection. The skin was prepped and draped in sterile fashion. 1% lid ocaine was used for local anesthesia. Under ultrasound guidance, a 5 Fr catheter with trochar was adv anced into the ascites in the right lower quadrant. Fluid was aspirated into vacuum bottles. The cath eter was removed, and a dressing was applied. There were no immediate complications. FINDINGS: Ultrasound images demonstrate ascites and the catheter within the fluid. IMPRESSION: 1. Successful ultrasound-guided paracentesis yielding 5000 mL of light yellow fluid. Reviewed, dictated and finalized at location A.
[2023-01-09 12:28] LABS: Appearance Peritoneal Fluid Hazy (Clear); Source Peritoneal Fluid Peritoneal Fluid
[2023-01-09 12:30] LABS: Color Peritoneal Fluid Yellow (Colorless); Neutrophils Peritoneal Fluid 17 % (0-25)
[2023-01-09 12:31] LABS: Lymphocytes Peritoneal Fluid 25 %; Macrophages Peritoneal Fluid 8 %; Mesothelial Cells Peritoneal Fluid 31 %; Monocytes Peritoneal Fluid 19 %
== END 2023-01-09 09:08 | disposition home or self-care (01) ==
PROVIDERS: PCP Hospitalist
DX: R18.8 Other ascites (principal); K74.60 Unspecified cirrhosis of liver
CPT/HCPCS: 49083; 88104; 88108; 88305; 89051

== ENCOUNTER 2023-01-12 11:10 | Outpatient (CLI) | payer OTHER, SELFPAY ==
--- NOTE | ~2023-01-12 | US_ITS ---
EXAMINATION: US paracentesis abd w/image DATE: 01/12/2023 12:41 INDICATION: Ascites. TECHNIQUE: The procedure and its risks, benefits, and alternatives were discussed with the patient. P otential risks discussed included bleeding and infection. The skin was prepped and draped in sterile fashion. 1% lidocaine was used for local anesthesia. Under ultrasound guidance, a 5 Fr catheter with trochar was advanced into the ascites in the left lower quadrant. Fluid was aspirated. The catheter w as removed, and a dressing was applied. There were no immediate complications. FINDINGS: Ultrasound images demonstrate ascites and the catheter within the fluid. IMPRESSION: 1. Successful ultrasound-guided paracentesis yielding 5000 mL of clear, yellow fluid. Reviewed, dictated and finalized at location A.
== END 2023-01-12 11:11 | disposition home or self-care (01) ==
PROVIDERS: PCP Hospitalist
DX: R18.8 Other ascites (principal)
CPT/HCPCS: 49083

== ENCOUNTER 2023-01-19 10:53 | Emergency (ER) | payer OTHER, SELFPAY ==
[2023-01-19 10:55] VITALS: BP 142/91; PULSE 98; RESP 20; TEMP 36.1; O2SAT 100
[2023-01-19] MEDS: HYDROcodone/acetaminophen (*CRX) 5-325 MG TABLET 1 TAB PO (12:10)
--- NOTE | 2023-01-19 18:22 | ED.WOUNDLAC ---
HPI - Wound/Laceration General Chief Complaint: Wound/Laceration Stated Complaint: wound post procedure Time Seen by Provider: 01/19/23 11:01 History of Present Illness HPI narrative: Pt had recent paracentesis and wound was oozing so he put some wound adhesive and then applied bandage that is now glued to his abdominal wall and he cant remove it. Related Data Home Medications Medication Instructions Recorded Confirmed potassium chloride 20 mEq 20 meq PO DAILY 04/11/22 10/25/22 tablet,extended release(part/cryst) ondansetron 4 mg disintegrating 4 mg PO Q4H PRN Nausea 07/16/22 10/25/22 tablet furosemide 40 mg tablet 80 mg PO BID 08/25/22 10/25/22 hydrocodone 7.5 mg-acetaminophen 1 tablet PO Q8H PRN Pain 08/25/22 10/25/22 325 mg tablet Allergies Allergy/AdvReac Type Severity Reaction Status Date / Time ceftriaxone AdvReac Itching Verified 12/02/22 03:24 Review of Systems Review of Systems: All systems reviewed & are unremarkable except as noted in HPI and below PMFSH Past Medical History Medical History Arthritis C. difficile colitis Cerebrovascular accident (2004) Chronic anemia Cirrhosis of liver with ascites Diarrhea Diastolic congestive heart failure Esophageal varices Gastric ulcer Gastroesophageal reflux disease GI bleed Hyperglycemia Hypertension Kidney stone Leukemia In childhood. Pancreatic abnormality Pericardial effusion Noted on CT and echocardiogram in August 2020. No evidence of tamponade. Portal hypertensive gastropathy Noted on endoscopy on 03/23/[address] Duran. Prostate cancer Status post radiation seed implantation. Smoker Spontaneous bacterial peritonitis (04/2020) Tobacco dependence Type 2 diabetes mellitus Surgical History Surgical History History of appendectomy History of cholecystectomy History of cystoscopy History of inguinal hernia repair History of lithotripsy History of repair of right rotator cuff Family History Family History Mother Family history of malignant neoplasm of breast in first degree relative Breast cancer Father Acute myocardial infarction Hypertension Heart disease Other Diabetes mellitus Maternal Unkle Other Family history of malignant neoplasm Social History Social History Social History: The patient is disabled Surrogate decision maker: Myra Worley () or Marnie Washington (aunt). Code status: Full code Smoking packs per day: 0.5 Smoking cigarettes per day: 10.0 Years smoked: 20 Smoking pack-years: 10.00 Smoking status: Former smoker Tobacco type: cigarettes Second hand tobacco smoke exposure: No Alcohol intake: never Drinks per week: 6 Alcohol use details: Former beer drinker. Substance use: never Substance use type: does not use Lack of Transportation: No Lack of Food: Never True Current Housing: I Have Housing Concerned About Future Housing: No Difficulty Paying Gas/Electric Bills: No Difficulty Paying for Meds: No Currently Unemployed: No Education: Associate Degree Difficulty w/ Childcare or Family Care: No Living arrangements: with family Additional living arrangements comments: Resides in [place] with his and son. 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 Spiritual care concerns: No Agree to blood products: Yes Exam Const: Nutritional Appearance: well nourished Orientation/consciousness: patient oriented x3 Resp: Effort & Inspection: normal respiratory effort Cardio: Rate: regular rate Rhythm: regular rhythm GI: Inspection: distended Auscultation: normal bowel sounds Skin: General skin exam: normal color Rashes: no danny
== END 2023-01-19 12:15 | disposition home or self-care (01) ==
PROVIDERS: Emergency Provider Emergency Medicine; PCP Hospitalist
DX: Z48.01 Encounter for change or removal of surgical wound dressing (principal); D64.9 Anemia, unspecified; K74.60 Unspecified cirrhosis of liver; I50.30 Unspecified diastolic (congestive) heart failure; I11.0 Hypertensive heart disease with heart failure; E11.9 Type 2 diabetes mellitus without complications; K21.9 Gastro-esophageal reflux disease without esophagitis; Z87.442 Personal history of urinary calculi; M19.90 Unspecified osteoarthritis, unspecified site; Z86.73 Personal history of transient ischemic attack (TIA), and cerebral infarction without residual deficits; Z85.6 Personal history of leukemia; Z87.891 Personal history of nicotine dependence; Z90.49 Acquired absence of other specified parts of digestive tract; Z79.4 Long term (current) use of insulin
CPT/HCPCS: 99283; A9270

== ENCOUNTER 2023-01-21 13:01 | Observation (INO) | payer OTHER, SELFPAY ==
[2023-01-21] VITALS (24 sets, daily range): BP systolic 107–174; BP diastolic 73–118; PULSE 102–129; RESP 15–32; TEMP 36.3–37; O2SAT 100; BMI 28.5
--- NOTE | ~2023-01-21 | US_ITS ---
EXAMINATION: US paracentesis abd w/image DATE: 01/23/2023 09:55 INDICATION: Ascites. TECHNIQUE: The skin was prepped and draped in sterile fashion. 1% lidocaine was used for local anesth esia. Under ultrasound guidance, a 5 Fr catheter with trochar was advanced into the ascites in [facility] lower quadrant. Fluid was aspirated. The catheter was removed, and a dressing was applied. FINDINGS: Ultrasound images demonstrate ascites and the catheter within the fluid. IMPRESSION: 1. Successful ultrasound-guided paracentesis yielding 1700 mL of fluid. The first bottle was clear y ellow fluid. The second bottle contained bloody fluid, and the patient described a burning pain in th e area of the procedure. The dark color of the blood suggested venous blood. The patient and I discus sed the risk of continued bleeding. He understood to tell his nurse if his pain continued or worsened . Reviewed, dictated and finalized at location A. IMPRESSION: 1. Successful ultrasound-guided paracentesis yielding 1700 mL of fluid. The fi rst bottle was clear yellow fluid. The second bottle contained bloody fluid, an d the patient described a burning pain in the area of the procedure. The dark c olor of the blood suggested venous blood. The patient and I discussed the risk of continued bleeding. He understood to tell his nurse if his pain continued or worsened.
--- NOTE | ~2023-01-21 | CT_ITS ---
EXAMINATION: CT abdomen pelvis wo con DATE: 01/23/2023 12:10 INDICATION: Hemoperitoneum status post paracentesis. TECHNIQUE: Computed tomography (CT) of the abdomen and pelvis was performed without intravenous contr ast. Automated exposure control and iterative reconstruction technique were employed. The dose-length product was 695.54 mGy-cm. COMPARISON: CT abdomen and pelvis 12/02/2022 FINDINGS: The visualized portions of the lung bases demonstrate mild atelectasis. There is mild emphy sema. A calcified left lung nodule and calcified left hilar lymph node are consistent with old granul omatous disease. The heart size is normal. There are coronary artery calcifications. There is a small pericardial effusion. The liver demonstrates surface nodularity, consistent with cirrhosis. There ar e changes of cholecystectomy. The spleen is moderately enlarged. The pancreas, adrenal glands, and ki dneys are normal. There is an umbilical hernia containing ascites. There are no dilated loops of lisa l. There are changes of appendectomy. There is a moderate volume of ascites that measures simple flui d in attenuation. Body wall edema is noted. There is a healing fracture of right 10th rib. There is c hronic anterior wedging of T10-T12 vertebral bodies. There is moderate lumbar spondylosis. IMPRESSION: 1. Moderate volume of ascites measuring simple fluid in attenuation. 2. Cirrhosis of the liver with portal venous hypertension. 3. Small pericardial effusion. Reviewed, dictated and finalized at location A.
--- NOTE | ~2023-01-21 | US_ITS ---
EXAMINATION: US paracentesis abd w/image DATE: 01/22/2023 13:58 INDICATION: Ascites. TECHNIQUE: The skin was prepped and draped in sterile fashion. 1% lidocaine was used for local anesth esia. Under ultrasound guidance, a 5 Fr catheter with trochar was advanced into the ascites in the [facility] lower quadrant. Fluid was aspirated. The catheter was removed, and a dressing was applied. There were no immediate complications. FINDINGS: Ultrasound images demonstrate ascites and the catheter within the fluid. IMPRESSION: 1. Successful ultrasound-guided paracentesis yielding 5000 mL of clear, yellow fluid. Reviewed, dictated and finalized at location A.
[2023-01-21 13:34] LABS: Basophils Absolute Auto 0.1 K/mm3 (0.0-0.1); Basophils Percent Auto 0.8 % (0.2-1.2); Eosinophils Absolute Auto 0.2 K/mm3 (0-0.3); Eosinophils Percent Auto 1.3 % (0-4.4); Hematocrit 41.2 % (42.0-52.0); Hemoglobin 12.1 g/dL (14.0-18.0); Immature Granulocyte Absolute 0.07 K/mm3 (0.00-0.031); Immature Granulocyte Percent A 0.6 % (0-0.5); Lymphocytes Percent Auto 8.5 % (18.3-44.2); Mean Corpuscular HGB Conc 29.4 g/dl (32-36); Mean Corpuscular Hemoglobin 27.7 pg (26-34); Mean Corpuscular Volume 94.3 fl (80-100); Mean Platelet Volume 10.4 fl (7.4-10.4); Monocytes Percent Auto 8.4 % (2.6-8.5); Neutrophils Absolute Auto 9.5 K/mm3 (1.3-6.7); Neutrophils Percent Auto 80.4 % (45.5-73.1); Platelet Count Result 193 k/mm3 (150-375); Red Blood Count 4.37 M/mm3 (4.6-6.20); Red Cell Distribution Width 15.9 % (11.5-14.5); White Blood Count 11.8 K/mm3 (4.5-10.0)
[2023-01-21 13:43] LABS: Alanine Aminotransferase 17 U/L (6-50); Albumin Level 2.8 g/dL (3.5-5.1); Alkaline Phosphatase 220 U/L (38-126); Anion Gap 3 mmol/L (8-16); Aspartate Amino Transferase 51 U/L (17-59); Bilirubin,Total 0.4 mg/dL (0.2-1.3); Blood Urea Nitrogen 30 mg/dL (9-20); Calcium 8.2 mg/dL (8.4-10.2); Carbon Dioxide 22 mmol/L (22-30); Chloride 106 mmol/L (98-107); Estimated CRCL calculation 66 ml/min; Estimated Glomerular Filt Rate > 60; Glucose 141 mg/dL (65-110); Potassium 4.9 mmol/L (3.4-5.0); Sodium 131 mmol/L (137-145)
[2023-01-21 13:45] LABS: Prothrombin Time 13.3 Seconds (11.1-14.7)
[2023-01-21 13:46] LABS: Partial Thromboplastin Time 29.8 SECONDS (22.3-36.8)
[2023-01-21 13:50] LABS: Platelet Estimate Adequate (Adequate); Schistocytes None Seen (NORMAL); Stomatocytes 1+ (NORMAL)
[2023-01-21 13:51] LABS: Anisocytosis 1+ (NORMAL); Hypochromasia 1+ (NORMAL)
--- NOTE | 2023-01-21 14:53 | ED.GIBLEED ---
HPI - GI Bleed General Chief complaint: GI Bleed Stated complaint: gi bleed Time Seen by Provider: 01/21/23 14:21 History of Present Illness HPI Narrative: Patient is a 53-year-old male with a history of cirrhosis, variceal bleeding status post numerous bands presenting with GI bleed. Patient states that this morning he had an episode of melena and then he started vomiting blood. States that he had multiple episodes including in the ambulance. States that this has happened before. He is also complaining of abdominal pain related to ascites. States that he was supposed to have a paracentesis earlier today but then he started vomiting blood. He denies fevers or chills, headache, chest pain, shortness of breath, diarrhea, vomiting, dysuria, leg swelling. Related Data Home Medications Medication Instructions Recorded Confirmed potassium chloride 20 mEq 20 meq PO DAILY 04/11/22 01/21/23 tablet,extended release(part/cryst) ondansetron 4 mg disintegrating 4 mg PO Q4H PRN Nausea 07/16/22 01/21/23 tablet furosemide 40 mg tablet 80 mg PO BID 08/25/22 01/21/23 gabapentin 300 mg capsule 300 mg PO HS 01/21/23 01/21/23 insulin lispro protamine-lispro 5 unit subcut BID 01/21/23 01/21/23 100 unit/mL (75-25) subcutaneous pen oxycodone 20 mg tablet 20 mg PO QID PRN Pain (Scale Score 01/21/23 01/21/23 7-10) pregabalin 75 mg capsule 75 mg PO DAILY 01/21/23 01/21/23 Allergies Allergy/AdvReac Type Severity Reaction Status Date / Time ceftriaxone AdvReac Itching Verified 01/21/23 13:16 ciprofloxacin AdvReac Itching Verified 01/21/23 16:06 Review of Systems Review of Systems: All systems reviewed & are unremarkable except as noted in HPI and below PMFSH Past Medical History Medical History Arthritis C. difficile colitis Cerebrovascular accident (2004) Chronic anemia Cirrhosis of liver with ascites Diarrhea Diastolic congestive heart failure Esophageal varices Gastric ulcer Gastroesophageal reflux disease GI bleed Hyperglycemia Hypertension Kidney stone Leukemia In childhood. Pancreatic abnormality Pericardial effusion Noted on CT and echocardiogram in August 2020. No evidence of tamponade. Portal hypertensive gastropathy Noted on endoscopy on 03/23/[address] Duran. Prostate cancer Status post radiation seed implantation. Smoker Spontaneous bacterial peritonitis (04/2020) Tobacco dependence Type 2 diabetes mellitus Surgical History Surgical History History of appendectomy History of cholecystectomy History of cystoscopy History of inguinal hernia repair History of lithotripsy History of repair of right rotator cuff Family History Family History Mother Family history of malignant neoplasm of breast in first degree relative Breast cancer Father Acute myocardial infarction Hypertension Heart disease Other Diabetes mellitus Maternal Unkle Other Family history of malignant neoplasm Social History Social History (Updated 01/21/23 @ 22:27 by Romi Leiva PA-C) Social History: Surrogate decision maker: Myra Worley () or Marnie Washington (aunt). Code status: Full code Smoking packs per day: 0.5 Smoking cigarettes per day: 10.0 Years smoked: 20 Smoking pack-years: 10.00 Smoking status: Former smoker Tobacco type: cigarettes Second hand tobacco smoke exposure: No Alcohol intake: former Drinks per week: 0 Alcohol use details: Former beer drinker. Substance use: never Substance use type: does not use Other substance usage details: DECEMBER 16 2022 LAST DRINK- BEER Lack of Transportation: YES Lack of Food: Never True Current Housing: I Have Housing Concerned About Future Housing: No Difficulty Paying Gas/Electric Bills: No Difficulty Paying for Meds: No Cur
[2023-01-21] MEDS: HYDROmorphone HCL INJ (*CRX) 1 MG/ML SYR IV PUSH ×3 (15:16→21:22)
[2023-01-21] MEDS: PANTOPRAZOLE SODIUM IV 40 MG VIAL 80 MG IV PUSH (15:16)
[2023-01-21] MEDS: CIPROFLOXACIN 400 MG/D5W 200ML 200 ML 200 MG IVPB (15:17)
[2023-01-21] MEDS: OCTREOTIDE ACETATE 50 MCG/ML VIAL IV PUSH (15:32)
--- NOTE | 2023-01-21 15:36 | PC.NURSE ---
Pt with itching and redness at IV site for ciprofloxacin, medication stopped. Dr. Portillo notified and medication d/cd.
[2023-01-21] MEDS: diphenhydrAMINE HCl INJ 50 MG/ML VIAL 25 MG IV PUSH (15:40)
[2023-01-21] MEDS: HYDROmorphone HCL INJ (*CRX) 1 MG/ML SYR 0.5 MG IV PUSH (15:54)
--- NOTE | 2023-01-21 15:59 | PM.IMHP ---
H&P: HPI History of Present Illness Date/Time: 01/21/23 15:45 Chief Complaint: Vomiting blood. Narrative: This is a 53-year-old male with history of cirrhosis, esophageal varices, gastric ulcers, pericardial effusion, pulmonary hypertension, diabetes, and diastolic congestive heart failure who presented to the emergency department via EMS for evaluation of hematemesis. The patient provides the following history. His stomach was a bit upset when he went to bed last night and was still uncomfortable when he got up this morning. At about 07:30 he had the sudden urge to have a bowel movement and reports passing a large dark stool. Not long thereafter he started vomiting and reports having multiple episodes of hematemesis. Blood pressures and SpO2 were stable on arrival to the ED. He has been tachycardic since arrival. Initial hemoglobin and hematocrit were stable when compared to previous labs. BUN was elevated at 30 which is quite a bit higher than his baseline. He had another episode of hematemesis in the ED however has since stabilized. At the time my evaluation he complains of diffuse abdominal pain which is not necessarily unusual for him. He has reaccumulating ascites which requires drainage 2 times per week. 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 In the ED he was started on octreotide drip, received IV Protonix, and hydromorphone with some improvement in his pain. He is being admitted in this setting for close monitoring and GI consultation. Review of Systems Review of Systems: Twelve systems were reviewed. No fever. No cold or flu symptoms. He denies chest pain. No dysuria. Except as documented, all other systems were reviewed and are negative. [facility] Past Medical History Medical History Arthritis C. difficile colitis Cerebrovascular accident (2004) Chronic anemia Cirrhosis of liver with ascites Diarrhea Diastolic congestive heart failure Esophageal varices Gastric ulcer Gastroesophageal reflux disease GI bleed Hyperglycemia Hypertension Kidney stone Leukemia In childhood. Pancreatic abnormality Pericardial effusion Noted on CT and echocardiogram in August 2020. No evidence of tamponade. Portal hypertensive gastropathy Noted on endoscopy on 03/23/[address] Duran. Prostate cancer Status post radiation seed implantation. Smoker Spontaneous bacterial peritonitis (04/2020) Tobacco dependence Type 2 diabetes mellitus Surgical History Surgical History History of appendectomy History of cholecystectomy History of cystoscopy History of inguinal hernia repair History of lithotripsy History of repair of right rotator cuff Family History Family History Mother Family history of malignant neoplasm of breast in first degree relative Breast cancer Father Acute myocardial infarction Hypertension Heart disease Other Diabetes mellitus Maternal Unkle Other Family history of malignant neoplasm Social History Social History (Updated 01/21/23 @ 22:27 by Romi Leiva PA-C) Social History: Surrogate decision maker: Myra Josephuss () or Marnie Felix (aunt). Code status: Full code Smoking packs per day: 0.5 Smoking cigarettes per day: 10.0 Years smoked: 20 Smoking pack-years: 10.00 Smoking status: Former smoker Tobacco type: cigarettes Second hand tobacco smoke exposure: No Alcohol intake: former Drinks per week: 0 Alcohol use details: Former beer drinker. Substance use: never Substance use type: does not use Other substance usage details: DECEMBER 16 2022 LAST DRINK- BEER Lack of Transportation: YES Lack of Food: Never True Current Housing: I Have Housing Concerned About Future Housing: No Difficulty Paying Gas/Electric Bills: No Difficulty Paying f
--- NOTE | 2023-01-21 16:24 | ADMGEN ---
This patient, Matt Worley II, was admitted to IMU Room 202-01 @ 1625 from ER. Patient oriented to hospital policies and general routines including ID bracelet, bed and alarms, visiting hours, pain management, procedures, bathroom and other care routines, personal items, smoking policy, room service/diet, and visiting hours. Information on how to activate the Rapid Response Team has been discussed. Patient are encouraged to report perceived risks to care and to ask questions if they do not understand what they are told or what they should do.
[2023-01-21 22:44] LABS: Hemoglobin 10.9 g/dL (14.0-18.0)
[2023-01-21 23:00] LABS: Glucose Point of Care 109 mg/dl (65-105)
[2023-01-22] VITALS (21 sets, daily range): BP systolic 100–139; BP diastolic 59–96; PULSE 86–104; RESP 14–28; TEMP 35.7–36.6; O2SAT 96–100
[2023-01-22] MEDS: HYDROmorphone HCL INJ (*CRX) 1 MG/ML SYR IV PUSH ×8 (00:02→21:41)
[2023-01-22] MEDS: ERTAPENEM 1 GM/NS 50 ML 1 GM/50 ML BAG IVPB ×2 (00:05→21:40)
[2023-01-22] MEDS: PANTOPRAZOLE SODIUM IV 40 MG VIAL IV PUSH ×3 (00:06→21:41)
[2023-01-22 04:50] LABS: Hematocrit 36.4 % (42.0-52.0); Hemoglobin 10.5 g/dL (14.0-18.0); Mean Corpuscular HGB Conc 28.8 g/dl (32-36); Mean Corpuscular Hemoglobin 27.2 pg (26-34); Mean Corpuscular Volume 94.3 fl (80-100); Mean Platelet Volume 10.4 fl (7.4-10.4); Platelet Count Result 145 k/mm3 (150-375); Red Blood Count 3.86 M/mm3 (4.6-6.20); Red Cell Distribution Width 15.8 % (11.5-14.5); White Blood Count 5.6 K/mm3 (4.5-10.0)
[2023-01-22 05:01] LABS: Alanine Aminotransferase 14 U/L (6-50); Albumin Level 2.6 g/dL (3.5-5.1); Alkaline Phosphatase 196 U/L (38-126); Anion Gap 2 mmol/L (8-16); Aspartate Amino Transferase 35 U/L (17-59); Bilirubin,Total 0.4 mg/dL (0.2-1.3); Blood Urea Nitrogen 38 mg/dL (9-20); Calcium 8.1 mg/dL (8.4-10.2); Carbon Dioxide 24 mmol/L (22-30); Chloride 103 mmol/L (98-107); Estimated CRCL calculation 61 ml/min; Estimated Glomerular Filt Rate > 60; Glucose 101 mg/dL (65-110); Lipase 31 U/L (23-300); Magnesium 1.9 mg/dL (1.6-2.3); Sodium 129 mmol/L (137-145)
[2023-01-22] MEDS: LACTATED RINGERS 1,000 ML 150 ML IV CONT (10:32)
[2023-01-22 10:35] LABS: Glucose Point of Care 98 mg/dl (65-105)
--- NOTE | 2023-01-22 11:03 | WPDANESEPPF ---
Anes - Initial Pre Proc Eval Procedure: Operation Date: 01/22/23 12:00 Proposed Procedures p Esophagogastroduodenoscopy - Shon Duran MD Date/Time: 01/22/23 11:03 Surgeon: Flaco Rajan MD Pre Op Diagnosis: Upper GI bleed Patient Data Age: 53 Gender: M Height: 1.65 m Weight: 77.8 kg Last Vital Signs Temp 97.8 F 01/22/23 10:26 Pulse 101 H 01/22/23 10:26 Resp 16 01/22/23 10:26 BP 112/86 01/22/23 10:26 Pulse Ox 98 01/22/23 10:26 O2 Del Method Room Air 01/22/23 10:26 Allergies Allergy/AdvReac Type Severity Reaction Status Date / Time ceftriaxone AdvReac Itching Verified 01/21/23 13:16 ciprofloxacin AdvReac Itching Verified 01/21/23 16:06 Home Medications Medication Instructions Recorded Confirmed Type potassium chloride 20 mEq 20 meq PO DAILY 04/11/22 01/21/23 History tablet,extended release(part/cryst) carvedilol 12.5 mg tablet (Coreg) 12.5 mg PO Q12HR #60 tabs 04/12/22 01/21/23 Rx spironolactone 50 mg tablet 100 mg PO BID #60 tabs 06/03/22 01/21/23 Rx (Aldactone) pantoprazole 40 mg tablet,delayed 40 mg PO Q12HR #60 tabs 07/09/22 01/21/23 Rx release ondansetron 4 mg disintegrating 4 mg PO Q4H PRN Nausea 07/16/22 01/21/23 History tablet furosemide 40 mg tablet 80 mg PO BID 08/25/22 01/21/23 History prednisone 50 mg tablet 50 mg PO DAILY #5 tabs 10/25/22 01/21/23 Rx gabapentin 300 mg capsule 300 mg PO HS 01/21/23 01/21/23 History insulin lispro protamine-lispro 5 unit subcut BID 01/21/23 01/21/23 History 100 unit/mL (75-25) subcutaneous pen oxycodone 20 mg tablet 20 mg PO QID PRN Pain (Scale Score 01/21/23 01/21/23 History 7-10) pregabalin 75 mg capsule 75 mg PO DAILY 01/21/23 01/21/23 History Laboratory Tests 01/21/23 01/21/23 01/21/23 13:21 22:37 22:56 WBC 11.8 H K/mm3 (4.5-10.0) RBC 4.37 L M/mm3 (4.6-6.20) Hgb 12.1 L g/dL 10.9 L g/dL (14.0-18.0) (14.0-18.0) Hct 41.2 L % 37.0 L % (42.0-52.0) (42.0-52.0) MCV 94.3 fl (80-100) MCH 27.7 pg (26-34) MCHC 29.4 L g/dl (32-36) RDW 15.9 H % (11.5-14.5) Plt Count 193 k/mm3 (150-375) MPV 10.4 fl (7.4-10.4) Immature Gran % (Auto) 0.6 H % (0-0.5) Neut % (Auto) 80.4 H % (45.5-73.1) Lymph % (Auto) 8.5 L % (18.3-44.2) Graves % (Auto) 8.4 % (2.6-8.5) Eos % (Auto) 1.3 % (0-4.4) Baso % (Auto) 0.8 % (0.2-1.2) Lymph # (Auto) 1.00 K/mm3 (0.9-3.2) Graves # (Auto) 1.0 H K/mm3 (0.1-0.6) Eos # (Auto) 0.2 K/mm3 (0-0.3) Baso # (Auto) 0.1 K/mm3 (0.0-0.1) Abs Immat Gran (auto) 0.07 H K/mm3 (0.00-0.031) Absolute Neuts (auto) 9.5 H K/mm3 (1.3-6.7) Absolute Nucleated RBC 0.0 K/mm3 (0.0-0.012) Nucleated RBC % 0.0 % (0.0-0.2) Platelet Estimate Adequate (Adequate) Hypochromasia 1+ (NORMAL) Anisocytosis 1+ (NORMAL) Stomatocytes 1+ (NORMAL) Schistocytes None seen (NORMAL) PT 13.3 Seconds (11.1-14.7) INR 1.0 APTT 29.8 SECONDS (22.3-36.8) Sodium 131 L mmol/L (137-145) Potassium 4.9 mmol/L (3.4-5.0) Chloride 106 mmol/L (98-107) Carbon Dioxide 22 mmol/L (22-30) Anion Gap 3 L mmol/L (8-16) BUN 30 H D mg/dL (9-20) Creatinine 1.00 mg/dL (0.7-1.3) Estim Creat Clear Calc 66 ml/min Estimated GFR > 60 (59 - ) Glucose 141 H mg/dL (65-110) POC Capillary Glucose 109 H mg/dl (65-105) Calcium 8.2 L mg/dL (8.4-10.2) Magnesium Total Bilirubin 0.4 mg/dL (0.2-1.3) AST 51 U/L (17-59) ALT 17 U/L (6-50) Alkaline Phosphatase 220 H U/L (38-126) Total Protein
--- NOTE | 2023-01-22 11:07 | WPDGICN ---
Assessment and Plan Assessment and plan (1) Acute GI bleeding: Code(s): K92.2 - Gastrointestinal hemorrhage, unspecified Status: Acute Assessment and Plan: will proceed with urgent egd, noted elevated bun last time had esophageal varices started on iv octreotide, protonix and antibiotics (2) Cirrhosis: Code(s): K74.60 - Unspecified cirrhosis of liver Status: Acute Assessment and Plan: already seeing ornamental metalwork designer in [facility] ? AIH vs alcohol (he has been abstinent for several months) (3) Abdominal ascites: Code(s): R18.8 - Other ascites Status: Acute Assessment and Plan: requiring frequent paracentesis as outpatient, will schedule another one while he is here he just told me that his ornamental metalwork designer mentinoned to him that was not a candidate for TIPS (4) Esophageal varices: Code(s): I85.00 - Esophageal varices without bleeding Status: Acute Assessment and Plan: egd to assess (5) Abdominal pain: Code(s): R10.9 - Unspecified abdominal pain Status: Acute Assessment and Plan: he has chronic pain and taking narcotics at home (6) Hematemesis: Qualifiers: Nausea presence: with nausea Qualified Code(s): K92.0 - Hematemesis Code(s): K92.0 - Hematemesis Status: Acute Assessment and Plan: monitor for more signs of bleeding (7) Type 2 diabetes mellitus: Qualifiers: Diabetes mellitus tank terminal gauger insulin use: without tank terminal gauger use Diabetes mellitus complication status: without complication Qualified Code(s): E11.9 - Type 2 diabetes mellitus without complications Code(s): E11.9 - Type 2 diabetes mellitus without complications Status: Acute GI Consult Note Consult date/time: 01/22/23 11:07 Reason for consult: melena, cirrhosis with ascites HPI: Matt Worley II is a 53 year old male who is well known to our service who has cirrhosis (combination of alcohol- denies any drink for at least 8 months- and probably autoimmune MEL as high as 1:1280 in the past) with portal hypertension, known esophageal varices that required banding last time 03/[address] Guerin, known ascites with multiple outpatient paracentesis last time just 3 days ago, chronic abdominal pain on narcotics and gabapentin, diabetes. He is also seeing ornamental metalwork designer at [facility], they talked to him about starting process for liver transplant but apparently had problem with insurance. He came here after noted dark tarry stools then had one episode of coffee ground emesis and more abdominal pain. Hgb 10, bun 38, inr 1. Admitted to hospital, started on iv octreotide and protonix, also antibiotics. Review of Systems Constitutional: Constitutional: Denies chills Eyes: Eyes: Denies blurry vision ENT: Reports Normal hearing present Cardiovascular: Cardiovascular: Denies chest pain Respiratory: Respiratory: Denies cough Gastrointestinal: Gastrointestinal: Reports abdominal pain, Reports melena, Reports nausea and Reports vomiting Genitourinary: Genitourinary: Denies dysuria Musculoskeletal: Musculoskeletal: Denies neck pain Integumentary/Breasts: Skin/Breast: Denies rash Neurologic: Denies Abnormal speech present Psychiatric: Psychiatric: Denies confusion [facility] Past Medical History Medical History Arthritis C. difficile colitis Cerebrovascular accident (2004) Chronic anemia Cirrhosis of liver with ascites Diarrhea Diastolic congestive heart failure Esophageal varices Gastric ulcer Gastroesophageal reflux disease GI bleed Hyperglycemia Hypertension Kidney stone Leukemia In childhood. Pancreatic abnormality Pericardial effusion Noted on CT and echocardiogram in August 2020. No evidence of tamponade. Portal hypertensive gastropathy Noted on endoscopy on 03/23/[address] Duran. Prostate cancer Status post radiation seed implantation. Smoker
--- NOTE | 2023-01-22 11:34 | SUR.PHASEII ---
Dr Claros notified of pt's c/o pain of 03/24. No new orders.
[2023-01-22 11:43] LABS: Glucose Point of Care 100 mg/dl (65-105)
--- NOTE | 2023-01-22 12:00 | PM.IMPN ---
Progress Note: A&P Assessment and Plan (1) Acute GI bleeding: Code(s): K92.2 - Gastrointestinal hemorrhage, unspecified Status: Acute (2) Cirrhosis of liver with ascites: Qualifiers: Hepatic cirrhosis type: unspecified hepatic cirrhosis Qualified Code(s): K74.60 - Unspecified cirrhosis of liver; R18.8 - Other ascites Code(s): K74.60 - Unspecified cirrhosis of liver; R18.8 - Other ascites Status: Chronic (3) Chronic anemia: Code(s): D64.9 - Anemia, unspecified Status: Acute (4) Diastolic congestive heart failure: Qualifiers: Heart failure chronicity: chronic Qualified Code(s): I50.32 - Chronic diastolic (congestive) heart failure Code(s): I50.30 - Unspecified diastolic (congestive) heart failure Status: Acute (5) Type 2 diabetes mellitus: Qualifiers: Diabetes mellitus shelter insulin use: without shelter use Diabetes mellitus complication status: without complication Qualified Code(s): E11.9 - Type 2 diabetes mellitus without complications Code(s): E11.9 - Type 2 diabetes mellitus without complications Status: Acute Plan The patient presented to the emergency department for evaluation of dark stools and hematemesis as detailed in HPI. Labs, imaging, EKG, and all reports were personally reviewed. He has a history of variceal bleeding and he has been started on IV Protonix and an octreotide drip. He has listed allergies to ceftriaxone and ciprofloxacin thus he has been started on ertapenem empirically.. Hemoglobin and hematocrit are currently stable and will be monitored closely; he will be transfused if indicated. He will be NPO after midnight for EGD tomorrow. He is hopeful to have a therapeutic paracentesis prior to discharge. He is clinically compensated with regards to his CHF. Monitor strict I/O. Hold insulin as he will be NPO. Initiate sliding scale insulin, Accu-Cheks, and hypoglycemic protocol. Home medications will be reviewed and resumed as appropriate. Subjective Date/time seen: 01/22/23 12:00 Interval history: no new issues Exam Narrative: General:?Chronically ill-appearing male sitting up in bed in no acute distress. Weight: 77.8 kg. BMI: 28.5. HEENT:?Wearing glasses. PERRL, EOMI. Sclera anicteric. Tacky mucous membranes. Neck:??Supple. Respiratory:?Lungs are clear to auscultation bilaterally. Cardiovascular:??Regular rate and rhythm with S1-S2. Gastrointestinal:??Abdomen is slightly firm and protuberant with shifting dullness. He has diffuse tenderness to palpation over the abdomen which is not unusual for him. Skin:??Warm and dry. Sallow. Skin irritation over the left mid to lower abdomen where he had some skin glue in place previously. Extremities:??No cyanosis or clubbing. Trace pretibial edema bilaterally. Radial and pedal pulses intact. Neurological:??Alert.? Cranial nerves 2-12 are grossly intact. No gross focal deficits to casual conversation. Psychiatric:??Pleasant and cooperative with appropriate mood and affect. Objective Data Vital Signs Vital Signs: Vital Signs - 24 hr 01/21/23 13:06 01/21/23 13:10 01/21/23 13:15 Temperature 98.6 F Pulse Rate 122 H 123 H 122 H Respiratory Rate 21 H 23 H 15 Blood Pressure 143/98 H Pulse Oximetry 100 Oxygen Delivery Room Air 01/21/23 13:56 01/21/23 14:13 01/21/23 14:15 Temperature Pulse Rate 120 H 117 H 117 H Respiratory Rate 28 H 22 H 27 H Blood Pressure Pulse Oximetry Oxygen Delivery 01/21/23 14:26 01/21/23 14:47 01/21/23 15:00 Temperature Pulse Rate 119 H 122 H 125 H Respiratory Rate 23 H 21 H 26 H Blood Pressure 117/84 Pulse Oximetry Oxygen Delivery 01/21/23 15:01 01/21/23 15:16 01/21/23 15:17 Temperature Pulse Rate 120 H 127 H 127 H Respiratory Rate 26 H 32 H 24 H Blood Pressure 122/91 H 174/118 H Pulse Oximetry Oxygen Delivery 01/21/23 15:30 01/21/23 15:31 01/21/23 15:45 Temp
[2023-01-22 18:00] LABS: Glucose Point of Care 184 mg/dl (65-105)
[2023-01-22 18:54] LABS: Potassium 4.5 mmol/L (3.4-5.0)
[2023-01-22] MEDS: carvediloL 12.5 MG TABLET PO (21:00)
--- NOTE | 2023-01-22 21:25 | PC.NURSE ---
2109 Patient complained of bad heartburn. Dr. Ortiz updated on condition and complaints. Orders received for gi cocktail and to continue current pain medication regimen
[2023-01-22] MEDS: GABAPENTIN 300 MG CAPSULE PO (21:41)
[2023-01-22] MEDS: BELLADONNA ALK/PHENOB ELIX 10 ML, MAG HYDROX/ALUMINUM HYD/SIMETH 30 ML, LIDOCAINE HCL 2... PO (22:22)
[2023-01-22] MEDS: oxyCODONE HCL (*CRX) 5 MG TAB IR 20 MG PO (22:23)
[2023-01-22 23:13] LABS: Glucose Point of Care 115 mg/dl (65-105)
[2023-01-23] VITALS (20 sets, daily range): BP systolic 91–111; BP diastolic 57–76; PULSE 76–88; RESP 18–20; TEMP 35.6–36.3; O2SAT 98–100
[2023-01-23] MEDS: HYDROmorphone HCL INJ (*CRX) 1 MG/ML SYR IV PUSH ×5 (00:40→18:00)
[2023-01-23 04:56] LABS: Potassium 4.4 mmol/L (3.4-5.0)
[2023-01-23] MEDS: oxyCODONE HCL (*CRX) 5 MG TAB IR 20 MG PO ×4 (05:39→23:36)
[2023-01-23 07:53] LABS: Glucose Point of Care 102 mg/dl (65-105)
[2023-01-23] MEDS: PANTOPRAZOLE SODIUM IV 40 MG VIAL IV PUSH ×2 (09:55→21:32)
[2023-01-23] MEDS: PREGABALIN (*CRX) 75 MG CAPSULE PO (09:56)
--- NOTE | 2023-01-23 10:22 | WPDANESPN ---
Anes - Prog Note Post-Op Date/Time: 01/23/23 10:22 Cardiovascular status: normal Respiratory status: normal Airway patency: baseline Mental status: baseline Post-Op hydration status: normal Vital Signs: Last Vital Signs Temp 35.8 C L 01/23/23 08:03 Pulse 76 01/23/23 09:52 Resp 18 01/23/23 08:03 BP 109/73 01/23/23 09:52 Pulse Ox 99 01/23/23 09:52 O2 Del Method Room Air 01/23/23 08:00 Pain Score (VAS): 08/22 I/O: Intake & Output 01/22/23 01/23/23 01/23/23 23:59 07:59 15:59 Intake Total 340 600 Output Total 1700 Balance 340 600 -1700 Laboratory Tests 01/22/23 04:24 01/23/23 04:29 01/21/23 01/22/23 01/22/23 13:21 10:31 11:41 Potassium POC Capillary Glucose 98 100 Blood Type AB Positive Antibody Screen Positive Antibody Identification Anti-E Antigen Identification Cancelled ISAURO, Poly Interpret Negative Enhanced Crossmatch See Detail 01/22/23 01/22/23 01/22/23 17:56 18:27 20:12 Potassium 4.5 POC Capillary Glucose 184 H 115 H Blood Type Antibody Screen Antibody Identification Antigen Identification ISAURO, Poly Interpret Enhanced Crossmatch 01/23/23 01/23/23 04:29 07:42 Potassium 4.4 POC Capillary Glucose 102 Blood Type Antibody Screen Antibody Identification Antigen Identification ISAURO, Poly Interpret Enhanced Crossmatch Post-procedural complaints: none Patient Feedback: Patient satisfied with anesthetic care.
--- NOTE | 2023-01-23 10:31 | WPDANESPN ---
Anes - Prog Note Post-Op Date/Time: 01/23/23 10:31 Cardiovascular status: normal Respiratory status: normal Airway patency: baseline Mental status: baseline Post-Op hydration status: normal Vital Signs: Last Vital Signs Temp 35.8 C L 01/23/23 08:03 Pulse 76 01/23/23 09:52 Resp 18 01/23/23 08:03 BP 109/73 01/23/23 09:52 Pulse Ox 99 01/23/23 09:52 O2 Del Method Room Air 01/23/23 08:00 Pain Score (VAS): 0 I/O: Intake & Output 01/22/23 01/23/23 01/23/23 23:59 07:59 15:59 Intake Total 340 600 480 Output Total 1700 Balance 340 600 -1220 Laboratory Tests 01/22/23 04:24 01/23/23 04:29 01/21/23 01/22/23 01/22/23 13:21 10:31 11:41 Potassium POC Capillary Glucose 98 100 Blood Type AB Positive Antibody Screen Positive Antibody Identification Anti-E Antigen Identification Cancelled ISAURO, Poly Interpret Negative Enhanced Crossmatch See Detail 01/22/23 01/22/23 01/22/23 17:56 18:27 20:12 Potassium 4.5 POC Capillary Glucose 184 H 115 H Blood Type Antibody Screen Antibody Identification Antigen Identification ISAURO, Poly Interpret Enhanced Crossmatch 01/23/23 01/23/23 04:29 07:42 Potassium 4.4 POC Capillary Glucose 102 Blood Type Antibody Screen Antibody Identification Antigen Identification ISAURO, Poly Interpret Enhanced Crossmatch Post-procedural complaints: none Patient Feedback: Patient satisfied with anesthetic care.
[2023-01-23 11:29] LABS: Glucose Point of Care 130 mg/dl (65-105)
[2023-01-23] MEDS: POTASSIUM CHLORIDE 20 MEQ ER TABLET PO (12:28)
[2023-01-23] MEDS: carvediloL 12.5 MG TABLET PO (12:29)
[2023-01-23] MEDS: FUROSEMIDE 40 MG TABLET 80 MG PO (12:29)
--- NOTE | 2023-01-23 14:06 | WPDGIPROGNO ---
Progress Note: A&P Assessment and Plan (1) Acute GI bleeding: Code(s): K92.2 - Gastrointestinal hemorrhage, unspecified Status: Acute Assessment and Plan: small EV s/p banding but without signs of bleeding ok to discontinue octreotide tomorrow in the morning protonix twice daily (2) Cirrhosis: Code(s): K74.60 - Unspecified cirrhosis of liver Status: Acute Assessment and Plan: medical support 2g na diet follow-up with hepatology in [facility] (3) Abdominal ascites: Code(s): R18.8 - Other ascites Status: Acute Assessment and Plan: next paracentesis schedule for early next week (4) Esophageal varices: Code(s): I85.00 - Esophageal varices without bleeding Status: Acute Assessment and Plan: s/p banding repeat EGD in 6 weeks to reassess Subjective Date/time seen: 01/23/23 14:06 Interval history: egd yesterday with banding of small size esophageal varices, there was not stigmata of recent bleeding he had paracentesis today about 1.5L (did not get more because towards the end noted some bleeding) c/o reflux but he is hungry and would like to advance diet Review of Systems Review of Systems: All systems reviewed & are unremarkable except as noted in HPI and below Exam Const: Other: chronically ill appearing HENMT: Face/Nose/Sinus: Normal nares present Eyes: General: appearance normal, both eyes and all related structures Neck: Neck: supple Resp: Effort & Inspection: normal respiratory effort Cardio: Rate: regular rate GI: Inspection: distended GI Palp: Yes Tenderness to palpation present (GI) (diffusely but he has chronic pain, no rebound) Auscultation: normal bowel sounds Other: + fluid wave Skin: General skin exam: normal color Neuro: Speech: normal speech Motor exam (neuro): 5/5 motor strength present throughout Extrem: General: normal to inspection Psych: Affect: normal affect Objective Data Vital Signs Vital Signs: Vital Signs - 24 hr 01/22/23 15:59 01/22/23 16:00 01/22/23 16:00 Temperature 96.5 F L Pulse Rate 96 104 H Respiratory Rate 14 Blood Pressure 126/85 Pulse Oximetry 100 Oxygen Delivery Room Air 01/22/23 18:00 01/22/23 20:00 01/22/23 20:00 Temperature 97.6 F Pulse Rate 93 93 92 Respiratory Rate 20 Blood Pressure 125/83 Pulse Oximetry 100 Oxygen Delivery 01/22/23 20:00 01/22/23 21:00 01/22/23 22:00 Temperature Pulse Rate 96 86 Respiratory Rate Blood Pressure Pulse Oximetry Oxygen Delivery Room Air 01/22/23 23:24 01/22/23 23:59 01/23/23 00:00 Temperature 97.8 F Pulse Rate 87 86 Respiratory Rate 20 Blood Pressure 100/59 L Pulse Oximetry 99 Oxygen Delivery Room Air 01/23/23 02:00 01/23/23 03:18 01/23/23 03:20 Temperature Pulse Rate 80 80 Respiratory Rate Blood Pressure Pulse Oximetry Oxygen Delivery Room Air 01/23/23 03:24 01/23/23 06:00 01/23/23 08:03 Temperature 97.3 F L 96.4 F L Pulse Rate 78 77 78 Respiratory Rate 18 18 Blood Pressure 104/71 91/62 L Pulse Oximetry 99 100 Oxygen Delivery 01/23/23 08:00 01/23/23 09:52 01/23/23 11:54 Temperature 96.1 F L Pulse Rate 76 80 Respiratory Rate 18 Blood Pressure 109/73 105/68 Pulse Oximetry 99 99 Oxygen Delivery Room Air 01/23/23 12:29 01/23/23 08:00 01/23/23 10:00 Temperature Pulse Rate 80 83 85 Respiratory Rate Blood Pressure Pulse Oximetry Oxygen Delivery 01/23/23 13:07 Temperature Pulse Rate Respiratory Rate Blood Pressure 111/76 Pulse Oximetry Oxygen Delivery Intake/Output Intake/Output: Intake & Output 01/20/23 01/21/23 01/22/23 01/23/23 23:59 23:59 23:59 23:59 Intake Total 60 940 1080 Output Total 0 5300 1900 Balance 60 -5404 -820 Meds/Results Medications: Active Medications Generic Name Dose Route Start Last Admin Trade Name Freq PRN Reason Sto
--- NOTE | 2023-01-23 14:27 | PM.IMPN ---
Progress Note: A&P Assessment and Plan (1) Acute GI bleeding: Code(s): K92.2 - Gastrointestinal hemorrhage, unspecified Status: Acute Assessment and Plan: EGD noted. Lab stable. On antibiotics IV. Octreotide. Appreciate GI (2) Cirrhosis of liver with ascites: Qualifiers: Hepatic cirrhosis type: unspecified hepatic cirrhosis Qualified Code(s): K74.60 - Unspecified cirrhosis of liver; R18.8 - Other ascites Code(s): K74.60 - Unspecified cirrhosis of liver; R18.8 - Other ascites Status: Chronic (3) Chronic anemia: Code(s): D64.9 - Anemia, unspecified Status: Acute (4) Diastolic congestive heart failure: Qualifiers: Heart failure chronicity: chronic Qualified Code(s): I50.32 - Chronic diastolic (congestive) heart failure Code(s): I50.30 - Unspecified diastolic (congestive) heart failure Status: Acute (5) Type 2 diabetes mellitus: Qualifiers: Diabetes mellitus long term acute care registered nurse insulin use: without long term acute care registered nurse use Diabetes mellitus complication status: without complication Qualified Code(s): E11.9 - Type 2 diabetes mellitus without complications Code(s): E11.9 - Type 2 diabetes mellitus without complications Status: Acute Subjective Date/time seen: 01/23/23 14:27 Interval history: no new complaints Exam Narrative: General:?Chronically ill-appearing male sitting up in bed in no acute distress. Weight: 77.8 kg. BMI: 28.5. HEENT:?Wearing glasses. PERRL, EOMI. Sclera anicteric. Tacky mucous membranes. Neck:??Supple. Respiratory:?Lungs are clear to auscultation bilaterally. Cardiovascular:??Regular rate and rhythm with S1-S2. Gastrointestinal:??Abdomen is slightly firm and protuberant with shifting dullness. He has diffuse tenderness to palpation over the abdomen which is not unusual for him. Skin:??Warm and dry. Sallow. Skin irritation over the left mid to lower abdomen where he had some skin glue in place previously. Extremities:??No cyanosis or clubbing. Trace pretibial edema bilaterally. Radial and pedal pulses intact. Neurological:??Alert.? Cranial nerves 2-12 are grossly intact. No gross focal deficits to casual conversation. Psychiatric:??Pleasant and cooperative with appropriate mood and affect. Objective Data Vital Signs Vital Signs: Vital Signs - 24 hr 01/22/23 15:59 01/22/23 16:00 01/22/23 16:00 Temperature 96.5 F L Pulse Rate 96 104 H Respiratory Rate 14 Blood Pressure 126/85 Pulse Oximetry 100 Oxygen Delivery Room Air 01/22/23 18:00 01/22/23 20:00 01/22/23 20:00 Temperature 97.6 F Pulse Rate 93 93 92 Respiratory Rate 20 Blood Pressure 125/83 Pulse Oximetry 100 Oxygen Delivery 01/22/23 20:00 01/22/23 21:00 01/22/23 22:00 Temperature Pulse Rate 96 86 Respiratory Rate Blood Pressure Pulse Oximetry Oxygen Delivery Room Air 01/22/23 23:24 01/22/23 23:59 01/23/23 00:00 Temperature 97.8 F Pulse Rate 87 86 Respiratory Rate 20 Blood Pressure 100/59 L Pulse Oximetry 99 Oxygen Delivery Room Air 01/23/23 02:00 01/23/23 03:18 01/23/23 03:20 Temperature Pulse Rate 80 80 Respiratory Rate Blood Pressure Pulse Oximetry Oxygen Delivery Room Air 01/23/23 03:24 01/23/23 06:00 01/23/23 08:03 Temperature 97.3 F L 96.4 F L Pulse Rate 78 77 78 Respiratory Rate 18 18 Blood Pressure 104/71 91/62 L Pulse Oximetry 99 100 Oxygen Delivery 01/23/23 08:00 01/23/23 09:52 01/23/23 11:54 Temperature 96.1 F L Pulse Rate 76 80 Respiratory Rate 18 Blood Pressure 109/73 105/68 Pulse Oximetry 99 99 Oxygen Delivery Room Air 01/23/23 12:29 01/23/23 08:00 01/23/23 10:00 Temperature Pulse Rate 80 83 85 Respiratory Rate Blood Pressure Pulse Oximetry Oxygen Delivery 01/23/23 13:07 Temperature Pulse Rate Respiratory Rate Blood Pressure 111/76 Pulse Oximetry Oxygen Delivery I
[2023-01-23 15:55] LABS: Glucose Point of Care 162 mg/dl (65-105)
[2023-01-23] MEDS: ALBUMIN HUMAN 25% 25 GM/100 ML 100 ML IVPB (17:34)
[2023-01-23 20:00] LABS: Glucose Point of Care 128 mg/dl (65-105)
[2023-01-23] MEDS: HYDROmorphone HCL INJ (*CRX) 1 MG/ML SYR 0.5 MG IV PUSH (21:31)
[2023-01-23] MEDS: GABAPENTIN 300 MG CAPSULE PO (21:32)
[2023-01-23] MEDS: ERTAPENEM 1 GM/NS 50 ML 1 GM/50 ML BAG IVPB (21:32)
[2023-01-24] VITALS (8 sets, daily range): BP systolic 97–102; BP diastolic 59–62; PULSE 79–91; RESP 20; TEMP 36.6; O2SAT 95–99
[2023-01-24] MEDS: HYDROmorphone HCL INJ (*CRX) 1 MG/ML SYR 0.5 MG IV PUSH (01:58)
[2023-01-24] MEDS: SODIUM CHLORIDE 0.9% IV 250 ML 999 ML IV CONT (01:58)
[2023-01-24 04:39] LABS: Hematocrit 31.5 % (42.0-52.0); Hemoglobin 9.2 g/dL (14.0-18.0); Immature Platelet Fraction Pct 4.7 % (0.9-11.2); Mean Corpuscular HGB Conc 29.2 g/dl (32-36); Mean Corpuscular Volume 92.4 fl (80-100); Mean Platelet Volume 10.7 fl (7.4-10.4); Platelet Count Result 127 k/mm3 (150-375); Red Blood Count 3.41 M/mm3 (4.6-6.20); Red Cell Distribution Width 15.1 % (11.5-14.5); White Blood Count 3.7 K/mm3 (4.5-10.0)
[2023-01-24] MEDS: oxyCODONE HCL (*CRX) 5 MG TAB IR 20 MG PO ×2 (05:03→11:04)
[2023-01-24 08:00] LABS: Glucose Point of Care 156 mg/dl (65-105)
[2023-01-24] MEDS: POTASSIUM CHLORIDE 20 MEQ ER TABLET PO (09:03)
[2023-01-24] MEDS: PREGABALIN (*CRX) 75 MG CAPSULE PO (09:03)
[2023-01-24] MEDS: PANTOPRAZOLE SODIUM IV 40 MG VIAL IV PUSH (09:03)
[2023-01-24 11:47] LABS: Glucose Point of Care 152 mg/dl (65-105)
--- NOTE | 2023-01-24 13:34 | PM.DS ---
DS: Admitting Diagnosis Discharge Date January 25, 2020 Admitting Diagnosis GI bleed, liver failure DS: Discharge Diagnosis Discharge Diagnosis (1) Acute GI bleeding: Code(s): K92.2 - Gastrointestinal hemorrhage, unspecified Status: Acute Assessment and Plan: EGD noted. Lab stable. On antibiotics IV. Octreotide. Appreciate GI (2) Cirrhosis of liver with ascites: Qualifiers: Hepatic cirrhosis type: unspecified hepatic cirrhosis Qualified Code(s): K74.60 - Unspecified cirrhosis of liver; R18.8 - Other ascites Code(s): K74.60 - Unspecified cirrhosis of liver; R18.8 - Other ascites Status: Chronic (3) Chronic anemia: Code(s): D64.9 - Anemia, unspecified Status: Acute (4) Diastolic congestive heart failure: Qualifiers: Heart failure chronicity: chronic Qualified Code(s): I50.32 - Chronic diastolic (congestive) heart failure Code(s): I50.30 - Unspecified diastolic (congestive) heart failure Status: Acute (5) Type 2 diabetes mellitus: Qualifiers: Diabetes mellitus roasterman insulin use: without senior care use Diabetes mellitus complication status: without complication Qualified Code(s): E11.9 - Type 2 diabetes mellitus without complications Code(s): E11.9 - Type 2 diabetes mellitus without complications Status: Acute DS: Summary Hospital Course Hospital Course: Patient is a 53-year-old gentleman came in with liver failure ascites and GI bleed. Had banding of esophageal varices. Will be sent home on Bactrim per GI since he has numerous allergies to antibiotics. Otherwise he will follow-up with outpatient Interventional Radiology for his scheduled paracentesis on Thursday. To note patient is also on palliative care at home. He is otherwise stable can be discharged. Time Spent with Patient Time attestation: Total time spent providing and/or coordinating discharge services: Exam Narrative: General:?Chronically ill-appearing male sitting up in bed in no acute distress. Weight: 77.8 kg. BMI: 28.5. HEENT:?Wearing glasses. PERRL, EOMI. Sclera anicteric. Tacky mucous membranes. Neck:??Supple. Respiratory:?Lungs are clear to auscultation bilaterally. Cardiovascular:??Regular rate and rhythm with S1-S2. Gastrointestinal:??Abdomen is slightly firm and protuberant with shifting dullness. He has diffuse tenderness to palpation over the abdomen which is not unusual for him. Skin:??Warm and dry. Sallow. Skin irritation over the left mid to lower abdomen where he had some skin glue in place previously. Extremities:??No cyanosis or clubbing. Trace pretibial edema bilaterally. Radial and pedal pulses intact. Neurological:??Alert.? Cranial nerves 2-12 are grossly intact. No gross focal deficits to casual conversation. Psychiatric:??Pleasant and cooperative with appropriate mood and affect. DS: Data Data Completed and Pending Labs on day of discharge: Labs from last 24 hours 01/24/23 01/24/23 01/24/23 11:30 07:39 04:08 WBC 3.7 L RBC 3.41 L Hgb 9.2 L Hct 31.5 L MCV 92.4 MCH 27.0 MCHC 29.2 L RDW 15.1 H Plt Count 127 L MPV 10.7 H % Immature Plt Fraction 4.7 POC Capillary Glucose 152 H 156 H 01/23/23 01/23/23 19:51 15:38 WBC RBC Hgb Hct MCV MCH MCHC RDW Plt Count MPV % Immature Plt Fraction POC Capillary Glucose 128 H 162 H Discharge Plan Discharge Attending physician on discharge: Booker Guaman Consulting providers: Shon Duran Discharging Clinician: Booker Guaman Patient Disposition: Home, Self-Care Activity: as tolerated Diet: as tolerated Patient Instructions: Antibiotic Form Stand Alone Forms: General Discharge Information Follow-up/Referrals: Shon Duran MD [Physician] - Discharge Medications: New sulfamethoxazole-trimethoprim [Bactrim DS] 800-160 mg tablet
--- NOTE | 2023-01-24 15:04 | WPDGIPROGNO ---
Progress Note: A&P Assessment and Plan (1) Acute GI bleeding: Code(s): K92.2 - Gastrointestinal hemorrhage, unspecified Status: Acute Assessment and Plan: small EV s/p banding but without signs of bleeding just completed octreotide drip, will complete antibiotic prophylaxis at home (discussed with hospitalist) he can go home and follow-up with hepatology (2) Cirrhosis: Code(s): K74.60 - Unspecified cirrhosis of liver Status: Acute Assessment and Plan: medical support 2g na diet follow-up with hepatology in [facility] (3) Abdominal ascites: Code(s): R18.8 - Other ascites Status: Acute Assessment and Plan: next paracentesis schedule for early next week (4) Esophageal varices: Code(s): I85.00 - Esophageal varices without bleeding Status: Acute Assessment and Plan: s/p banding repeat EGD in 6 weeks to reassess he can follow-up with Dr Guerin Subjective Date/time seen: 01/24/23 13:00 Interval history: doing well, no more bleeding Review of Systems Review of Systems: All systems reviewed & are unremarkable except as noted in HPI and below Exam Const: Other: chronically ill appearing HENMT: Face/Nose/Sinus: Normal nares present Eyes: General: appearance normal, both eyes and all related structures Neck: Neck: supple Resp: Effort & Inspection: normal respiratory effort Cardio: Rate: regular rate GI: Inspection: distended GI Palp: No Guarding due to palpation present (GI) Auscultation: normal bowel sounds Other: + fluid wave Skin: General skin exam: normal color Neuro: Speech: normal speech Motor exam (neuro): 5/5 motor strength present throughout Extrem: General: normal to inspection Psych: Affect: normal affect Objective Data Vital Signs Vital Signs: Vital Signs - 24 hr 01/23/23 15:56 01/23/23 16:00 01/23/23 16:00 Temperature 96.5 F L Pulse Rate 81 82 Respiratory Rate 20 Blood Pressure 94/69 L Pulse Oximetry 99 Oxygen Delivery Room Air 01/23/23 17:20 01/23/23 18:00 01/23/23 20:00 Temperature 97.1 F L Pulse Rate 87 81 Respiratory Rate 20 Blood Pressure 95/62 L 103/62 Pulse Oximetry 100 Oxygen Delivery 01/23/23 20:00 01/23/23 20:00 01/23/23 22:00 Temperature Pulse Rate 84 88 Respiratory Rate Blood Pressure Pulse Oximetry Oxygen Delivery Room Air 01/23/23 23:29 01/23/23 23:30 01/24/23 00:00 Temperature 97.0 F L Pulse Rate 79 88 Respiratory Rate 20 Blood Pressure 96/57 L Pulse Oximetry 98 Oxygen Delivery Room Air 01/24/23 02:00 01/24/23 04:00 01/24/23 04:00 Temperature 97.8 F Pulse Rate 81 79 79 Respiratory Rate 20 Blood Pressure 97/61 L Pulse Oximetry 99 Oxygen Delivery 01/24/23 04:00 01/24/23 06:00 01/24/23 08:00 Temperature 97.9 F Pulse Rate 80 84 Respiratory Rate 20 Blood Pressure 100/62 Pulse Oximetry 95 Oxygen Delivery Room Air 01/24/23 08:00 01/24/23 08:00 01/24/23 10:00 Temperature Pulse Rate 91 87 Respiratory Rate Blood Pressure Pulse Oximetry Oxygen Delivery Room Air 01/24/23 12:00 01/24/23 12:00 01/24/23 12:00 Temperature 97.8 F Pulse Rate 86 91 Respiratory Rate 20 Blood Pressure 102/59 L Pulse Oximetry 95 Oxygen Delivery Room Air 01/24/23 13:44 Temperature Pulse Rate 87 Respiratory Rate Blood Pressure Pulse Oximetry Oxygen Delivery Intake/Output Intake/Output: Intake & Output 01/21/23 01/22/23 01/23/23 01/24/23 23:59 23:59 23:59 23:59 Intake Total 60 990 2582 1800 Output Total 0 5300 4350 675 Balance 60 -0040 -6229 1125 Meds/Results Radiology Results: ITS Impressions Paracentesis Ultrasound 01/23/23 10:00 IMPRESSION: 1. Successful ultrasound-guided paracentesis yielding 1700 mL of fluid. The first bottle was clear yellow fluid. The second bottle contained bloody fluid, and the patient described
== END 2023-01-24 14:03 | disposition home or self-care (01) ==
LOC: ANHED 14:21 → ANHIMU 16:15
PROVIDERS: Internal Medicine; Internal Medicine Gastroenterology; Physician Assistant; Admitting Provider Hospitalist; Emergency Provider Emergency Medicine; PCP Hospitalist; Visit Provider Chiropractor
PROC: 0DJ08ZZ Inspection of Upper Intestinal Tract, Via Natural or Artificial Opening Endoscopic (ICD-10-PCS; CPT 43235; principal; 2023-01-22 12:00)
DX: K92.2 Gastrointestinal hemorrhage, unspecified (principal); K74.60 Unspecified cirrhosis of liver; I85.10 Secondary esophageal varices without bleeding; R18.8 Other ascites; K44.9 Diaphragmatic hernia without obstruction or gangrene; I11.0 Hypertensive heart disease with heart failure; I50.32 Chronic diastolic (congestive) heart failure; D64.9 Anemia, unspecified; K21.9 Gastro-esophageal reflux disease without esophagitis; K76.6 Portal hypertension; K31.89 Other diseases of stomach and duodenum; E11.9 Type 2 diabetes mellitus without complications; Z85.46 Personal history of malignant neoplasm of prostate; Z92.3 Personal history of irradiation; Z79.4 Long term (current) use of insulin; Z79.891 Long term (current) use of opiate analgesic; Z86.73 Personal history of transient ischemic attack (TIA), and cerebral infarction without residual deficits; Z85.6 Personal history of leukemia; Z87.891 Personal history of nicotine dependence
CPT/HCPCS: 43244; 36415; 49083; 74176; 80053; 82948; 83690; 83735; 84132; 85014; 85018; 85025; 85027; 85055; 85610; 85730; 86850; 86880; 86900; 86901; 86902; 86922; 96365; 96375; 96376; 99285; A9270; C9113; G0379; J0744; J1170; J1200; J1335; J2354; J2704; J7050; J7120; P9047

== ENCOUNTER 2023-01-25 19:24 | Emergency (ER) | payer OTHER, SELFPAY ==
--- NOTE | ~2023-01-25 | CT_ITS ---
EXAMINATION: CT abdomen pelvis w con DATE: 01/25/2023 20:35 INDICATION: Abdominal pain at the paracentesis site. TECHNIQUE: Computed tomography (CT) of the abdomen and pelvis was performed with 100 mL Omnipaque 350 intravenous contrast. Automated exposure control and iterative reconstruction technique were employe d. The dose-length product was 839.28 mGy-cm. COMPARISON: CT abdomen and pelvis 01/23/2023 FINDINGS: The visual portions of the lung bases demonstrate septal thickening, consistent mild pulmon kat edema. No pleural effusion. The heart size is normal. There are coronary artery calcifications. T here is a small pericardial effusion. Paraesophageal varices are noted. The liver demonstrates surfac e nodularity, consistent with cirrhosis. There are changes of cholecystitis. There is moderate spleno megaly. The pancreas, adrenal glands, and kidneys are normal. There are no dilated loops of bowel. Th ere are changes of appendectomy. There is wall thickening of small and large bowel and stomach, likel y interstitial edema. There is a moderate volume of ascites. There is edema of the intra-abdominal fa t and body wall. There is an umbilical hernia containing ascites. There are no pathologically enlarge d lymph nodes. There is a healing fracture of right 10th rib. There is chronic anterior wedging of T1 0-T12 vertebral bodies. There is moderate lumbar spondylosis. IMPRESSION: 1. Cirrhosis of the liver with portal venous hypertension. 2. Anasarca including mild pulmonary edema, small pericardial effusion, and moderate volume of ascite s. Reviewed, dictated and finalized at location E. IMPRESSION: 1. Cirrhosis of the liver with portal venous hypertension. 2. Anasarca including mild pulmonary edema, small pericardial effusion, and mod erate volume of ascites.
[2023-01-25 19:24] VITALS: BP 101/85; PULSE 107; RESP 20; TEMP 36.9; O2SAT 100
[2023-01-25 20:00] LABS: Basophils Absolute Auto 0.1 K/mm3 (0.0-0.1); Eosinophils Absolute Auto 0.3 K/mm3 (0-0.3); Eosinophils Percent Auto 4.1 % (0-4.4); Hematocrit 34.5 % (42.0-52.0); Hemoglobin 10.1 g/dL (14.0-18.0); Immature Granulocyte Absolute 0.02 K/mm3 (0.00-0.031); Immature Granulocyte Percent A 0.3 % (0-0.5); Lymphocytes Percent Auto 16.2 % (18.3-44.2); Mean Corpuscular HGB Conc 29.3 g/dl (32-36); Mean Corpuscular Hemoglobin 27.3 pg (26-34); Mean Corpuscular Volume 93.2 fl (80-100); Mean Platelet Volume 10.2 fl (7.4-10.4); Monocytes Absolute Auto 0.6 K/mm3 (0.1-0.6); Monocytes Percent Auto 10.2 % (2.6-8.5); Neutrophils Absolute Auto 4.2 K/mm3 (1.3-6.7); Neutrophils Percent Auto 68.2 % (45.5-73.1); Platelet Count Result 148 k/mm3 (150-375); Red Cell Distribution Width 15.6 % (11.5-14.5); White Blood Count 6.2 K/mm3 (4.5-10.0)
[2023-01-25] MEDS: oxyCODONE HCL (*CRX) 5 MG TAB IR PO (20:00)
[2023-01-25 20:08] LABS: Platelet Estimate Adequate (Adequate)
[2023-01-25 20:09] LABS: Alanine Aminotransferase 17 U/L (6-50); Albumin Level 2.7 g/dL (3.5-5.1); Alkaline Phosphatase 243 U/L (38-126); Anion Gap 1 mmol/L (8-16); Anisocytosis 1+ (NORMAL); Aspartate Amino Transferase 57 U/L (17-59); Bilirubin,Total 0.2 mg/dL (0.2-1.3); Blood Urea Nitrogen 16 mg/dL (9-20); Calcium 7.9 mg/dL (8.4-10.2); Carbon Dioxide 21 mmol/L (22-30); Chloride 113 mmol/L (98-107); Estimated CRCL calculation 66 ml/min; Estimated Glomerular Filt Rate > 60; Glucose 106 mg/dL (65-110); Hypochromasia 1+ (NORMAL); Lipase 55 U/L (23-300); Magnesium 1.9 mg/dL (1.6-2.3); Potassium 3.7 mmol/L (3.4-5.0); Schistocytes None Seen (NORMAL); Sodium 135 mmol/L (137-145)
[2023-01-25 20:10] LABS: Prothrombin Time 13.7 Seconds (11.1-14.7)
[2023-01-25 20:11] LABS: Partial Thromboplastin Time 30.4 SECONDS (22.3-36.8)
[2023-01-25 20:12] VITALS: BP 114/83; PULSE 98; RESP 21; O2SAT 99
--- NOTE | 2023-01-25 20:39 | ED.GENADULT ---
HPI - General Adult General Chief complaint: Abdominal Pain Stated complaint: abd pain Time Seen by Provider: 01/25/23 19:40 History of Present Illness HPI narrative: This is a 53-year-old male with history of liver cirrhosis and frequent ascites requiring paracentesis presenting with a paracentesis complication. patient had a paracentesis 2 days ago and while they were draining he did have some dark blood in the paracentesis fluid. He was then monitored and discharged yesterday. Patient says he has continued to have pain at the drainage site site is concerned there is something going on internally patient does have chronic pain issues from his paracentesis and frequently comes in requesting large amounts of opiates. Patient denies fevers, generalized abdominal pain, chest pain difficulty breathing or other complaints. Related Data Home Medications Medication Instructions Recorded Confirmed potassium chloride 20 mEq 20 meq PO DAILY 04/11/22 01/21/23 tablet,extended release(part/cryst) ondansetron 4 mg disintegrating 4 mg PO Q4H PRN Nausea 07/16/22 01/21/23 tablet furosemide 40 mg tablet 80 mg PO BID 08/25/22 01/21/23 gabapentin 300 mg capsule 300 mg PO HS 01/21/23 01/21/23 insulin lispro protamine-lispro 5 unit subcut BID 01/21/23 01/21/23 100 unit/mL (75-25) subcutaneous pen oxycodone 20 mg tablet 20 mg PO QID PRN Pain (Scale Score 01/21/23 01/21/23 7-10) pregabalin 75 mg capsule 75 mg PO DAILY 01/21/23 01/21/23 Allergies Allergy/AdvReac Type Severity Reaction Status Date / Time ceftriaxone AdvReac Itching Verified 01/25/23 19:32 ciprofloxacin AdvReac Itching Verified 01/25/23 19:32 [facility] Past Medical History Medical History Arthritis C. difficile colitis Cerebrovascular accident (2004) Chronic anemia Cirrhosis of liver with ascites Diarrhea Diastolic congestive heart failure Esophageal varices Gastric ulcer Gastroesophageal reflux disease GI bleed Hyperglycemia Hypertension Kidney stone Leukemia In childhood. Pancreatic abnormality Pericardial effusion Noted on CT and echocardiogram in August 2020. No evidence of tamponade. Portal hypertensive gastropathy Noted on endoscopy on 03/23/[address] Duran. Prostate cancer Status post radiation seed implantation. Smoker Spontaneous bacterial peritonitis (04/2020) Tobacco dependence Type 2 diabetes mellitus Surgical History Surgical History History of appendectomy History of cholecystectomy History of cystoscopy History of inguinal hernia repair History of lithotripsy History of repair of right rotator cuff Family History Family History Mother Family history of malignant neoplasm of breast in first degree relative Breast cancer Father Acute myocardial infarction Hypertension Heart disease Other Diabetes mellitus Maternal Unkle Other Family history of malignant neoplasm Social History Social History Social History: Surrogate decision maker: Myra Worley () or Marnie Felix (aunt). Code status: Full code Smoking packs per day: 0.5 Smoking cigarettes per day: 10.0 Years smoked: 20 Smoking pack-years: 10.00 Smoking status: Former smoker Tobacco type: cigarettes Second hand tobacco smoke exposure: No Alcohol intake: former Drinks per week: 0 Alcohol use details: Former beer drinker. Substance use: never Substance use type: does not use Other substance usage details: DECEMBER 16 2022 LAST DRINK- BEER Lack of Transportation: YES Lack of Food: Never True Current Housing: I Have Housing Concerned About Future Housing: No Difficulty Paying Gas/Electric Bills: No Difficulty Paying for Meds: No Currently Unemployed: No Education: Bachelor's Degree D
[2023-01-25 21:05] VITALS: BP 111/77; PULSE 108; RESP 16; O2SAT 100
== END 2023-01-25 21:18 | disposition home or self-care (01) ==
PROVIDERS: Emergency Provider Emergency Medicine; PCP Hospitalist
DX: R10.9 Unspecified abdominal pain (principal); K74.60 Unspecified cirrhosis of liver; I50.30 Unspecified diastolic (congestive) heart failure; I11.0 Hypertensive heart disease with heart failure; D64.9 Anemia, unspecified; M19.90 Unspecified osteoarthritis, unspecified site; Z86.73 Personal history of transient ischemic attack (TIA), and cerebral infarction without residual deficits; Z87.442 Personal history of urinary calculi; Z85.6 Personal history of leukemia; Z85.46 Personal history of malignant neoplasm of prostate; Z87.891 Personal history of nicotine dependence; Z90.49 Acquired absence of other specified parts of digestive tract
CPT/HCPCS: 36415; 74177; 80053; 83690; 83735; 85025; 85610; 85730; 99284; A9270; Q9967

== ENCOUNTER 2023-02-11 09:26 | Observation (INO) | payer OTHER, SELFPAY ==
[2023-02-11] VITALS (11 sets, daily range): BP systolic 117–146; BP diastolic 75–101; PULSE 88–115; RESP 11–24; TEMP 36.4–36.6; O2SAT 95–100; BMI 28.2
--- NOTE | ~2023-02-11 | US_ITS ---
EXAMINATION: US paracentesis abd w/image DATE: 02/11/2023 15:49 INDICATION: Ascites. TECHNIQUE: The procedure and its risks and benefits were discussed with the patient. Potential risks discussed included bleeding and infection. The skin was prepped and draped in sterile fashion. 1% lid ocaine was used for local anesthesia. Under ultrasound guidance, a 5 Fr catheter with trochar was adv anced into the ascites in the left lower quadrant. Fluid was aspirated into vacuum bottles. The georgette ter was removed, and a dressing was applied. There were no immediate complications. FINDINGS: Ultrasound images demonstrate ascites and the catheter within the fluid. IMPRESSION: 1. Successful ultrasound-guided paracentesis yielding 6000 mL of clear yellow fluid. Reviewed, dictated and finalized at location A.
[2023-02-11 09:53] LABS: Basophils Percent Auto 0.3 % (0.2-1.2); Eosinophils Absolute Auto 0.1 K/mm3 (0-0.3); Eosinophils Percent Auto 0.4 % (0-4.4); Hematocrit 41.3 % (42.0-52.0); Hemoglobin 12.2 g/dL (14.0-18.0); Immature Granulocyte Absolute 0.05 K/mm3 (0.00-0.031); Immature Granulocyte Percent A 0.4 % (0-0.5); Lymphocytes Absolute Auto 0.79 K/mm3 (0.9-3.2); Lymphocytes Percent Auto 7.1 % (18.3-44.2); Mean Corpuscular HGB Conc 29.5 g/dl (32-36); Mean Corpuscular Hemoglobin 26.8 pg (26-34); Mean Corpuscular Volume 90.8 fl (80-100); Mean Platelet Volume 10.5 fl (7.4-10.4); Monocytes Absolute Auto 1.2 K/mm3 (0.1-0.6); Monocytes Percent Auto 10.8 % (2.6-8.5); Neutrophils Absolute Auto 9.1 K/mm3 (1.3-6.7); Platelet Count Result 186 k/mm3 (150-375); Red Blood Count 4.55 M/mm3 (4.6-6.20); Red Cell Distribution Width 16.6 % (11.5-14.5); White Blood Count 11.2 K/mm3 (4.5-10.0)
[2023-02-11] MEDS: ONDANSETRON INJ 4 MG/2 ML VIAL IV PUSH (09:55)
[2023-02-11] MEDS: MORPHINE SULFATE (*CRX) 4 MG/ML INJ IV PUSH (09:56)
[2023-02-11 10:02] LABS: Alanine Aminotransferase 15 U/L (6-50); Alkaline Phosphatase 255 U/L (38-126); Anion Gap 7 mmol/L (8-16); Aspartate Amino Transferase 34 U/L (17-59); Bilirubin,Total 0.8 mg/dL (0.2-1.3); Blood Urea Nitrogen 19 mg/dL (9-20); Calcium 8.4 mg/dL (8.4-10.2); Carbon Dioxide 22 mmol/L (22-30); Chloride 102 mmol/L (98-107); Estimated CRCL calculation 61 ml/min; Estimated Glomerular Filt Rate > 60; Glucose 121 mg/dL (65-110); Lipase 64 U/L (23-300); Potassium 4.7 mmol/L (3.4-5.0); Sodium 131 mmol/L (137-145)
[2023-02-11 10:06] LABS: Prothrombin Time 13.7 Seconds (11.1-14.7)
[2023-02-11 10:07] LABS: Partial Thromboplastin Time 31.7 SECONDS (22.3-36.8)
[2023-02-11] MEDS: OCTREOTIDE ACETATE 50 MCG/ML VIAL IV PUSH (10:10)
[2023-02-11] MEDS: SODIUM CHLORIDE 0.9% IV 1,000 ML 999 ML IV CONT ×2 (10:11→11:00)
[2023-02-11] MEDS: PANTOPRAZOLE SODIUM IV 40 MG VIAL 80 MG IV PUSH (10:11)
--- NOTE | 2023-02-11 10:38 | ED.GIBLEED ---
HPI - GI Bleed General Chief complaint: GI Bleed Stated complaint: GI BLEED Time Seen by Provider: 02/11/23 09:30 History of Present Illness HPI Narrative: Patient is a 53-year-old male who presents ER with reports of hematemesis. Reports he had blood in his vomit at 7 AM and 8 AM. The second episode of emesis was much larger. He is not anticoagulated. He does have history of esophageal varices that required banding recently. Patient also receives paracentesis every other day. Denies fevers or chills or sweats. Patient reports chronic abdominal pain that is unchanged. Patient has been in talks with palliative care nursing about whether he should start hospice or not but he is not ready to make a decision. He would like full care at this time. He has not lost consciousness. EMS reports witnessing blood at home. He has not had a bloody bowel movement or emesis since being in EMS care. Related Data Home Medications Medication Instructions Recorded Confirmed potassium chloride 20 mEq 20 meq PO DAILY 04/11/22 01/21/23 tablet,extended release(part/cryst) ondansetron 4 mg disintegrating 4 mg PO Q4H PRN Nausea 07/16/22 01/21/23 tablet furosemide 40 mg tablet 80 mg PO BID 08/25/22 01/21/23 gabapentin 300 mg capsule 300 mg PO HS 01/21/23 01/21/23 insulin lispro protamine-lispro 5 unit subcut BID 01/21/23 01/21/23 100 unit/mL (75-25) subcutaneous pen oxycodone 20 mg tablet 20 mg PO QID PRN Pain (Scale Score 01/21/23 01/21/23 7-10) pregabalin 75 mg capsule 75 mg PO DAILY 01/21/23 01/21/23 Allergies Allergy/AdvReac Type Severity Reaction Status Date / Time ceftriaxone AdvReac Itching Verified 01/25/23 19:32 ciprofloxacin AdvReac Itching Verified 01/25/23 19:32 Review of Systems Review of Systems: All systems reviewed & are unremarkable except as noted in HPI and below Constitutional: Constitutional: Denies chills, Reports fatigue and Denies fever(s) ENT: Denies nasal congestion and Denies sore throat Cardiovascular: Cardiovascular: Denies chest pain, Denies rapid heart rate and Denies radiating jaw, neck or arm pain Respiratory: Respiratory: Denies cough and Denies dyspnea Gastrointestinal: Gastrointestinal: Reports abdominal pain, Reports bloating, Denies diarrhea, Reports nausea and Reports vomiting Comments: Positive hematemesis Genitourinary: Genitourinary: Denies dysuria and Denies urinary frequency Neurologic: Denies syncope, Denies focal weakness and Denies numbness PMFSH Past Medical History Medical History Arthritis C. difficile colitis Cerebrovascular accident (2004) Chronic anemia Cirrhosis of liver with ascites Diarrhea Diastolic congestive heart failure Esophageal varices Gastric ulcer Gastroesophageal reflux disease GI bleed Hyperglycemia Hypertension Kidney stone Leukemia In childhood. Pancreatic abnormality Pericardial effusion Noted on CT and echocardiogram in August 2020. No evidence of tamponade. Portal hypertensive gastropathy Noted on endoscopy on 03/23/[address] Duran. Prostate cancer Status post radiation seed implantation. Smoker Spontaneous bacterial peritonitis (04/2020) Tobacco dependence Type 2 diabetes mellitus Surgical History Surgical History History of appendectomy History of cholecystectomy History of cystoscopy History of inguinal hernia repair History of lithotripsy History of repair of right rotator cuff Family History Family History Mother Family history of malignant neoplasm of breast in first degree relative Breast cancer Father Acute myocardial infarction Hypertension Heart disease Other Diabetes mellitus Maternal Unkle Other Family history of malignant neoplasm Social History Social History (Reviewed 01/25/23 @ 20:42 by Zacarias Lui,
[2023-02-11] MEDS: PANTOPRAZOLE SODIUM IV 80 MG in SODIUM CHLORIDE 0.9% IV 500 ML 50 MG IV CONT (10:39)
--- NOTE | 2023-02-11 12:30 | ADMGEN ---
This patient, Matt Worley II, was admitted to Medical Room 249-01. Patient/family oriented to hospital policies and general routines including ID bracelet, bed and alarms, visiting hours, pain management, procedures, bathroom and other care routines, personal items, smoking policy, room service/diet, and visiting hours. Information on how to activate the Rapid Response Team has been discussed. Patient/Family are encouraged to report perceived risks to care and to ask questions if they do not understand what they are told or what they should do.
--- NOTE | 2023-02-11 12:51 | PM.IMHP ---
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 Patient has longstanding cirrhosis and has stopped drinking alcohol greater than 1 year. He was thought to have autoimmune hepatitis as well with MEL being high. He is following at [facility] hepatology and he was told he is not a candidate for TIPS procedure or liver transplant with his insurance. 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 In the meantime he is under palliative care. He gets recurrent ascites requiring paracentesis every other day removing about 5L ascitic fluid. He has been seen by our gastroenterologists as well Dr. Claros and Dr. Guerin for management of the varices. He was last hospitalized here 01/21/23-01/24 for melena. He had an EGD 01/[address] Gregg: small esophageal varices status post banding. He had been treated with octreotide drip and ABx prophylaxis. He has thought about hospice however his family is not ready for that. His states his has been diagnosis stage IV cancer as well. His hesitancy for starting is hospice is taking care of his son. He would like to maintain DNR code status at this time. His main symptoms are bloody stools and abdominal pain. He was due for his paracentesis today. In the ED: Patient presented with melena and bright red blood per rectum. He was started on octreotide drip and Protonix drip, given IV fluids. Dr. Guerin GI was consulted for EGD. Review of Systems Review of Systems: Constitutional: No Fever, No Chills, No Night Sweats, No Fatigue, No Malaise ENT/Mouth: No Hearing Changes, No Ear Pain, No Nasal Congestion, No Sinus Pain, No Hoarseness, No sore throat, No Rhinorrhea, No Swallowing Difficulty Eyes: No Eye Pain, No Redness, No Vision Changes Cardiovascular: No Chest Pain, No Palpitations, No Dyspnea on Exertion, No Orthopnea, No Claudication, No Edema Respiratory: No Cough, No Sputum, No Wheezing, No Shortness of Breath Gastrointestinal: Endorses abdominal pain, bloody stools Genitourinary: No Dysuria, No Urinary Frequency, No Hematuria, No Urinary Incontinence, No Urgency Musculoskeletal: No Arthralgias, No Myalgias, No Joint Swelling, No Joint Stiffness, No Back Pain Skin: No Skin Lesions, No Pruritis, No Hair Changes Neuro: No Weakness, No Numbness, No Paresthesias, No Loss of Consciousness, No Syncope, No Dizziness, No Headache Psych: Endorses anxiety about his medical conditions Heme: No Bruising, No Bleeding Lymph: No Adenopathy Endocrine: No Polyuria, No Polydipsia, No Temperature Intolerance [facility] Past Medical History Medical History Arthritis C. difficile colitis Cerebrovascular accident (2004) Chronic anemia Cirrhosis of liver with ascites Diarrhea Diastolic congestive heart failure Esophageal varices Gastric ulcer Gastroesophageal reflux disease GI bleed Hyperglycemia Hypertension Kidney stone Leukemia In childhood. Pancreatic abnormality Pericardial effusion Noted on CT and echocardiogram in August 2020. No evidence of tamponade. Portal hypertensive gastropathy Noted on endoscopy on 03/23/[address] Duran. Prostate cancer Status post radiation seed implantation. Smoker Spontaneous bacterial peritonitis (04/2020) Tobacco dependence Type 2 diabetes mellitus Surgical History Surgical History History of appendectomy History of cholecystectomy History of cystoscopy History of inguinal hernia repair History of lithotripsy History of repair of right rotator cuff Family Histo
[2023-02-11] MEDS: MORPHINE SULFATE (*CRX) 2 MG/ML INJ IV PUSH (13:27)
--- NOTE | 2023-02-11 14:20 | WPDGICN ---
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 He had some investigation in [place] by the fusion operator but they did not feel that there was much that they could do. (2) Abdominal ascites: Code(s): R18.8 - Other ascites Status: Acute Assessment and Plan: His ascites is so refractory now that he requires paracentesis every other day. Each time he has it there is over [address] an order for paracentesis which hopefully can be done today. (3) Acute generalized abdominal pain: Code(s): R10.84 - Generalized abdominal pain Status: Acute Assessment and Plan: He has had pain continuously since I 1st met him over a year ago even when his ascites is minimal but always feels worse when he has tense ascites. Today he is rather uncomfortabl (4) Acute GI bleeding: Code(s): K92.2 - Gastrointestinal hemorrhage, unspecified Status: Acute Assessment and Plan: He has had some hematemesis. Stools have not been dark or bloody. His hemoglobin is stable. Based on the fact that his last EGD showed small varices and a band was recently placed, endoscopy would probably not be prudent now because it could actually make matters worse if the band is on a vein that is undergoing atrophy. Plan Discussed with him his liver disease 3 he is aware the fact that is irreversible. He knows that he has a poor prognosis. He in fact said that he is considering hospice care. He is going to think about that more while he is here. We will get paracentesis schedule warren. I will let him have at least liquids and ice today. I do not think we will need to perform EGD but will keep an eye on his blood counts. GI Consult Note Consult date/time: 02/11/23 14:20 HPI: Matt Worley II is a 53 year old male with with a history of liver disease going back a couple of years. He has had multiple hospitalizations for gastrointestinal bleeding and has required esophageal variceal banding on several occasions. He also has refractory ascites. He had at 1 time needed paracentesis every month or so but now it every 2 days. In 2 days time he will accumulate greater than 5 L of fluid. He had been seen a fusion operator in [place]. Unfortunately for various reasons his initial consultation with the fusion operator was deferred and canceled the couple of times. He is now under the care of a fusion operator who told that unfortunately his liver is at the point were nothing can be done. The transplant was discussed but his insurance will not pay for it and is financially not a possibility. Likewise he has been told that he is not a candidate for TIPs. He is wasting away. He has no muscle mass in his legs he states he is able to walk around but feels weak. He had just had a conversation with his palliative care nurse. All they are doing is coming to see him in taking vital signs. Today he came to the emergency room because he had hematemesis. The paramedics had witnessed it and saw that there was a significant amount of blood. Fortunately his hemoglobin has not dropped in fact is higher than usual, 12.2 today but this is probably not accurate due to dehydration. He underwent EGD with banding of varices just over [address] Claros had found small varices but because he had had some hematemesis that time he did band 1 of them. [facility] Past Medical History Medical History Arthritis C. difficile colitis Cerebrovascular accident (2004) Chronic anemia Cirrhosis of liver with ascites Diarrhea Diastolic congestive heart failure Esophageal varices Gastric ulcer Gastroesophageal reflux disease GI bleed Hyperglycemia Hypertension Kidney stone Leukemia In
--- NOTE | 2023-02-11 14:46 | PC.NURSE ---
pt to paracentesis via bed
[2023-02-11 17:12] LABS: Hematocrit 36.5 % (42.0-52.0); Hemoglobin 10.7 g/dL (14.0-18.0)
[2023-02-11] MEDS: MORPHINE SULFATE (*CRX) 2 MG/ML INJ 4 MG IV PUSH ×2 (17:41→21:37)
[2023-02-11 18:30] LABS: Glucose Point of Care 215 mg/dl (65-105)
[2023-02-11 20:49] LABS: Glucose Point of Care 203 mg/dl (65-105)
[2023-02-11] MEDS: CYCLOBENZAPRINE HCL 10 MG TABLET PO (21:02)
[2023-02-11 23:32] LABS: Hematocrit 35.5 % (42.0-52.0); Hemoglobin 10.3 g/dL (14.0-18.0)
[2023-02-12] VITALS: PULSE 88
[2023-02-12] MEDS: MORPHINE SULFATE (*CRX) 2 MG/ML INJ 4 MG IV PUSH ×3 (01:34→09:35)
[2023-02-12 04:00] VITALS: PULSE 88
[2023-02-12 05:26] VITALS: BP 101/69; PULSE 83; RESP 18; TEMP 36.7; O2SAT 98
[2023-02-12] MEDS: SODIUM CHLORIDE 0.9% IV 1,000 ML 100 ML IV CONT (05:43)
[2023-02-12 06:40] LABS: Basophils Percent Auto 0.9 % (0.2-1.2); Eosinophils Absolute Auto 0.2 K/mm3 (0-0.3); Eosinophils Percent Auto 5.2 % (0-4.4); Hematocrit 39.5 % (42.0-52.0); Hemoglobin 11.5 g/dL (14.0-18.0); Immature Granulocyte Absolute 0.04 K/mm3 (0.00-0.031); Immature Granulocyte Percent A 0.9 % (0-0.5); Lymphocytes Absolute Auto 0.81 K/mm3 (0.9-3.2); Lymphocytes Percent Auto 17.6 % (18.3-44.2); Mean Corpuscular HGB Conc 29.1 g/dl (32-36); Mean Corpuscular Hemoglobin 27.1 pg (26-34); Mean Corpuscular Volume 93.2 fl (80-100); Mean Platelet Volume 11.2 fl (7.4-10.4); Monocytes Absolute Auto 0.7 K/mm3 (0.1-0.6); Monocytes Percent Auto 15.2 % (2.6-8.5); Neutrophils Absolute Auto 2.8 K/mm3 (1.3-6.7); Neutrophils Percent Auto 60.2 % (45.5-73.1); Platelet Count Result 131 k/mm3 (150-375); Red Blood Count 4.24 M/mm3 (4.6-6.20); Red Cell Distribution Width 16.2 % (11.5-14.5); White Blood Count 4.6 K/mm3 (4.5-10.0)
[2023-02-12 06:48] LABS: Alanine Aminotransferase 12 U/L (6-50); Albumin Level 2.6 g/dL (3.5-5.1); Alkaline Phosphatase 201 U/L (38-126); Anion Gap 3 mmol/L (8-16); Aspartate Amino Transferase 28 U/L (17-59); Bilirubin,Total 0.5 mg/dL (0.2-1.3); Blood Urea Nitrogen 18 mg/dL (9-20); Calcium 7.9 mg/dL (8.4-10.2); Carbon Dioxide 25 mmol/L (22-30); Chloride 100 mmol/L (98-107); Estimated CRCL calculation 61 ml/min; Estimated Glomerular Filt Rate > 60; Glucose 99 mg/dL (65-110); Magnesium 1.8 mg/dL (1.6-2.3); Potassium 4.6 mmol/L (3.4-5.0); Sodium 128 mmol/L (137-145)
[2023-02-12 07:01] LABS: Hemoglobin A1C 4.9 % (<5.7)
--- NOTE | 2023-02-12 07:01 | WPDGIPROGNO ---
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 He had some investigation in [place] by the quality process lead but they did not feel that there was much that they could do. (2) Abdominal ascites: Code(s): R18.8 - Other ascites Status: Acute Assessment and Plan: His ascites is so refractory now that he requires paracentesis every other day. Each time he has it there is over [address] an order for paracentesis which hopefully can be done today. (3) Acute generalized abdominal pain: Code(s): R10.84 - Generalized abdominal pain Status: Acute Assessment and Plan: He has had pain continuously since I 1st met him over a year ago even when his ascites is minimal but always feels worse when he has tense ascites. Today he is rather uncomfortabl (4) Acute GI bleeding: Code(s): K92.2 - Gastrointestinal hemorrhage, unspecified Status: Acute Assessment and Plan: He has had some hematemesis. Stools have not been dark or bloody. His hemoglobin is stable. Based on the fact that his last EGD showed small varices and a band was recently placed, endoscopy would probably not be prudent now because it could actually make matters worse if the band is on a vein that is undergoing atrophy. 02/12/2023 no further bleeding noted. Hemoglobin is 10.3 which is around his baseline. Plan Discussed with him his liver disease 3 he is aware the fact that is irreversible. He knows that he has a poor prognosis. He in fact said that he is considering hospice care. He is going to think about that more while he is here. We will get paracentesis schedule warren. I will let him have at least liquids and ice today. I do not think we will need to perform EGD but will keep an eye on his blood counts. + Will advance diet today. If he tolerates eating that he could be discharged. Octreotide has been stopped. He is arranging for paracentesis tomorrow. He usually has a done every other day. From my perspective, he can be discharged if no further vomiting this more Subjective Date/time seen: 02/12/23 07:01 no further emesis. He feels much much better after having paracentesis yesterday. 6 L was removed. He is willing to try to eat. Exam Const: General: alert Orientation/consciousness: patient oriented x3 Resp: Auscultation: clear to auscultation bilaterally Cardio: Rhythm: regular rhythm GI: Inspection: distended Auscultation: normal bowel sounds Skin: General skin exam: normal color (Hyperpigmented), no ecchymosis and no purpura Neuro: General: patient oriented x3 Motor exam (neuro): No Asterixis during motor activity present Extrem: General: edema ( both legs, 2+ to 3+) Objective Data Vital Signs Vital Signs: Vital Signs - 24 hr 02/11/23 09:25 02/11/23 10:16 02/11/23 10:31 Temperature 36.4 C Pulse Rate 115 H 111 H 101 H Respiratory Rate 24 H 17 21 H Blood Pressure 138/99 H 130/101 H 137/101 H Pulse Oximetry 98 100 Oxygen Delivery Room Air 02/11/23 11:01 02/11/23 11:16 02/11/23 11:31 Temperature Pulse Rate 100 92 100 Respiratory Rate 11 L 19 24 H Blood Pressure 136/98 H 134/95 H 127/92 H Pulse Oximetry 95 Oxygen Delivery 02/11/23 12:15 02/11/23 12:45 02/11/23 14:00 Temperature 36.6 C 36.4 C Pulse Rate 97 95 101 H Respiratory Rate 19 18 18 Blood Pressure 121/93 H 146/93 H 117/87 Pulse Oximetry 98 100 100 Oxygen Delivery 02/11/23 21:30 02/11/23 20:00 02/12/23 00:00 Temperature 36.6 C Pulse Rate 88 101 H 88 Respiratory Rate 17 Blood Pressure 123/75 Pulse Oximetry 100 Oxygen Delivery 02/12/23 04:00 02/12/23 05:26 Temperature 36.7 C Pulse Rate 88 83 Respiratory Rate 18 Blood Pressure 101/69 Pulse Oximetry 98
[2023-02-12 07:59] LABS: Glucose Point of Care 117 mg/dl (65-105)
[2023-02-12 08:00] VITALS: BP 110/77; PULSE 93; PULSE 95; RESP 20; TEMP 36.7; O2SAT 98
[2023-02-12 08:04] LABS: Anisocytosis 1+ (NORMAL); Platelet Estimate Adequate (Adequate)
[2023-02-12 08:05] LABS: Schistocytes None Seen (NORMAL)
--- NOTE | 2023-02-12 09:33 | PM.DS ---
DS: Admitting Diagnosis Discharge Date 02/12/2023 Admitting Diagnosis Ascites Liver cirrhosis DS: Discharge Diagnosis Discharge Diagnosis (1) Abdominal ascites: Code(s): R18.8 - Other ascites Status: Acute (2) Cirrhosis: Code(s): K74.60 - Unspecified cirrhosis of liver Status: Acute DS: Summary Hospital Course Hospital Course: Matt Worley II is a 53 year old male? with with a history of liver disease going back a couple of years.? He has had multiple hospitalizations for gastrointestinal bleeding and has required esophageal variceal banding on several occasions.? He also has refractory ascites.? He had at 1 time needed paracentesis every month or so but now it every 2 days.? In 2 days time he will accumulate greater than 5 L of fluid.? He had been seen a movie star in [place].? Unfortunately for? various reasons his initial consultation with the movie star was deferred and canceled the couple of times.? He is now under the care of a movie star who told that unfortunately his liver is at the point were nothing can be done.? The transplant was discussed but his insurance will not pay for it and is financially not a possibility.? Likewise he has been told that he is not a candidate for TIPs. ? ? Today he came to the emergency room because he had hematemesis.? The paramedics had witnessed it and saw that there was a significant amount of blood.? Fortunately his hemoglobin has not dropped in fact is higher than usual, 12.2 today but this is probably not accurate due to dehydration.? He underwent EGD with banding of varices just over [address] Claros had found small varices but because he had had some hematemesis that time he did band 1 of them. GI was consulted. Paracentesis was obtained and 6 L fluid was taken out. He is going to happen heart disease again tomorrow. His ascites is so refractory now that he requires paracentesis every other day.? Each time he has it there is over 5 L removed. His hemoglobin is stable.? Based on the fact that his last EGD showed small varices and a band was recently placed, endoscopy would probably not be prudent now because it could actually make matters worse if the band is on a? vein that is undergoing atrophy. He is eating and drinking okay. He has been discharged home Time Spent with Patient Time attestation: Total time spent providing and/or coordinating discharge services: DS: Data Data Completed and Pending Labs on day of discharge: Labs from last 24 hours 02/12/23 02/12/23 02/12/23 07:54 05:34 05:33 WBC 4.6 RBC 4.24 L Hgb 11.5 L Hct 39.5 L MCV 93.2 MCH 27.1 MCHC 29.1 L RDW 16.2 H Plt Count 131 L MPV 11.2 H Immature Gran % (Auto) 0.9 H Neut % (Auto) 60.2 Lymph % (Auto) 17.6 L Finney % (Auto) 15.2 H Eos % (Auto) 5.2 H Baso % (Auto) 0.9 Lymph # (Auto) 0.81 L Finney # (Auto) 0.7 H Eos # (Auto) 0.2 Baso # (Auto) 0.0 Abs Immat Gran (auto) 0.04 H Absolute Neuts (auto) 2.8 Absolute Nucleated RBC 0.0 Nucleated RBC % 0.0 Platelet Estimate Adequate Anisocytosis 1+ Schistocytes None seen PT INR APTT Sodium 128 L Potassium 4.6 Chloride 100 Carbon Dioxide 25 Anion Gap 3 L BUN 18 Creatinine 1.10 Estim Creat Clear Calc 61 Estimated GFR > 60 Glucose 99 POC Capillary Glucose 117 H Hemoglobin A1c 4.9 Calcium 7.9 L Magnesium 1.8 Total Bilirubin 0.5 AST 28 ALT 12 Alkaline Phosphatase 201 H Total Protein 6.0 L Albumin 2.6 L Lipase Blood Type Antibody Screen Antibody Identification Antigen Identification ISAURO, IgG Interpret ISAURO, Poly Interpret ISAURO, Complement Interp Enhanced Crossmatch 02/11/23 02/11/23 02/11/23 23:23 20:45 18:28 WBC RBC Hgb 10.3 L Hct 35.5 L MCV MCH MCHC RDW Plt Count MPV Immature Gran % (Auto)
--- NOTE | 2023-02-12 12:20 | PC.NURSE ---
On 02/12/23, the student, [ Angela San], provided care and completed [employer] documentation on this patient. I have reviewed the student's documentation and agree with the findings with the exception of neuro assessment. Student charted 'disoriented to person' and 'oriented to person'. Student unable to correct charting due to patient being discharged.
== END 2023-02-12 12:05 | disposition home or self-care (01) ==
LOC: ANHED 09:46 → ANH2MED 11:59
PROVIDERS: Internal Medicine; Admitting Provider Student in an Organized Health Care Education/Training Program; Emergency Provider Emergency Medicine; PCP Hospitalist; Visit Provider Hospitalist
DX: K74.60 Unspecified cirrhosis of liver (principal); R18.8 Other ascites; G89.29 Other chronic pain; R10.84 Generalized abdominal pain; K92.2 Gastrointestinal hemorrhage, unspecified; D64.9 Anemia, unspecified; I85.00 Esophageal varices without bleeding; K21.9 Gastro-esophageal reflux disease without esophagitis; E11.9 Type 2 diabetes mellitus without complications; Z51.5 Encounter for palliative care; E78.5 Hyperlipidemia, unspecified; I11.0 Hypertensive heart disease with heart failure; I50.9 Heart failure, unspecified; Z66 Do not resuscitate; Z87.891 Personal history of nicotine dependence; Z86.73 Personal history of transient ischemic attack (TIA), and cerebral infarction without residual deficits; Z85.6 Personal history of leukemia; Z85.46 Personal history of malignant neoplasm of prostate; Z92.3 Personal history of irradiation; Z79.4 Long term (current) use of insulin; Z79.891 Long term (current) use of opiate analgesic; Z79.899 Other long term (current) drug therapy; Z82.49 Family history of ischemic heart disease and other diseases of the circulatory system; Z83.3 Family history of diabetes mellitus; Z80.3 Family history of malignant neoplasm of breast; Z80.8 Family history of malignant neoplasm of other organs or systems
CPT/HCPCS: 36415; 49083; 80053; 82948; 83036; 83690; 83735; 85014; 85018; 85025; 85610; 85730; 86850; 86880; 86900; 86901; 86902; 86922; 96361; 96365; 96366; 96368; 96375; 96376; 99285; A9270; C9113; G0378; G0379; J2270; J2354; J2405; J7030; J7040

== ENCOUNTER 2023-02-13 15:16 | Outpatient (CLI) | payer OTHER, SELFPAY ==
--- NOTE | ~2023-02-13 | US_ITS ---
EXAMINATION: US paracentesis abd w/image DATE: 02/13/2023 16:33 INDICATION: Ascites. TECHNIQUE: The procedure and its risks and benefits were discussed with the patient. Potential risks discussed included bleeding and infection. The skin was prepped and draped in sterile fashion. 1% lid ocaine was used for local anesthesia. Under ultrasound guidance, a 5 Fr catheter with trochar was adv anced into the ascites in the left lower quadrant. Fluid was aspirated into vacuum bottles. The georgette ter was removed, and a dressing was applied. There were no immediate complications. FINDINGS: Ultrasound images demonstrate ascites and the catheter within the fluid. IMPRESSION: 1. Successful ultrasound-guided paracentesis yielding 6000 mL of cloudy yellow fluid. Reviewed, dictated and finalized at location A.
== END 2023-02-13 15:17 | disposition home or self-care (01) ==
PROVIDERS: PCP Hospitalist
DX: K74.60 Unspecified cirrhosis of liver (principal); R18.8 Other ascites
CPT/HCPCS: 49083

== ENCOUNTER 2023-02-22 14:30 | Inpatient (IN) | payer OTHER, SELFPAY ==
[2023-02-22] VITALS (7 sets, daily range): BP systolic 98–131; BP diastolic 63–90; PULSE 106–113; RESP 12–21; TEMP 36.4–36.6; O2SAT 100
--- NOTE | ~2023-02-22 | US_ITS ---
EXAMINATION: US paracentesis abd w/image DATE: 02/25/2023 11:17 INDICATION: Ascites. TECHNIQUE: The skin was prepped and draped in sterile fashion. 1% lidocaine was used for local anesth esia. Under ultrasound guidance, a 5 Fr catheter with trochar was advanced into the ascites in the [facility] lower quadrant. Fluid was aspirated. The catheter was removed, and a dressing was applied. There were no immediate complications. FINDINGS: Ultrasound images demonstrate ascites and the catheter within the fluid. IMPRESSION: 1. Successful ultrasound-guided paracentesis yielding 4200 mL of gio-colored fluid. Reviewed, dictated and finalized at location A.
--- NOTE | ~2023-02-22 | US_ITS ---
US abdomen limited DATE: 02/28/2023 10:17 INDICATION: Ascites TECHNIQUE: Real-time imaging was performed for evaluation of ascites COMPARISON: 02/25/2023 paracentesis; 4.2 L was drained FINDINGS: No significant intraperitoneal fluid collection is identified. IMPRESSION: No significant intraperitoneal fluid collection is identified Reviewed, dictated and finalized at Location A. Reviewed, dictated and finalized at location A.
--- NOTE | ~2023-02-22 | US_ITS ---
Duplex Sonography of the bilateral lower extremities: Indication: Swelling Sagittal and transverse B-mode images as well as color-flow imaging were performed on the right and l eft femoral and popliteal veins. B-mode examination was done without and with compression in the tra nsverse plane. There is good visualization of the bilateral common femoral, proximal profunda femora l, superficial femoral, greater saphenous, and popliteal veins. Normal flow was seen on color-flow im aging. Normal compressibility was demonstrated. Visualized calf veins are also patent. Impression: No evidence of deep vein thrombosis involving either lower extremity. Reviewed, dictated and finalized at location M. Impression: No evidence of deep vein thrombosis involving either lower extremit y.
--- NOTE | ~2023-02-22 | XR_ITS ---
EXAMINATION: XR chest 2V Exam Date/Time: 02/22/2023 16:40 CDT HISTORY: Anasarca Comparison: 10/26/2022. RESULT: Lines, tubes, and devices: Cholecystectomy clips. Lungs and pleura: Low volumes with mild crowding. Bibasilar scar/atelectasis. Otherwise clear. Cardiomediastinal silhouette: Stable. Other: No acute osseous or upper abdominal finding. IMPRESSION: No acute cardiopulmonary process. Reviewed, dictated and finalized at location K.
--- NOTE | ~2023-02-22 | US_ITS ---
EXAMINATION: US paracentesis abd w/image DATE: 02/23/2023 10:56 INDICATION: Ascites. TECHNIQUE: The procedure and its risks, benefits, and alternatives were discussed with the patient. P otential risks discussed included bleeding and infection. The skin was prepped and draped in sterile fashion. 1% lidocaine was used for local anesthesia. Under ultrasound guidance, a 5 Fr catheter with trochar was advanced into the ascites in the left lower quadrant. Fluid was aspirated. The catheter w as removed, and a dressing was applied. There were no immediate complications. FINDINGS: Ultrasound images demonstrate ascites and the catheter within the fluid. IMPRESSION: 1. Successful ultrasound-guided paracentesis yielding 4000 mL of clear, yellow fluid. Reviewed, dictated and finalized at location A.
--- NOTE | ~2023-02-22 | US_ITS ---
EXAMINATION: US abdomen limited DATE: 02/27/2023 10:49 INDICATION: Ascites. TECHNIQUE: Multiple grayscale and Doppler ultrasound images of the abdomen were obtained. COMPARISON: Ultrasound 02/25/2023 FINDINGS: A survey of the abdomen demonstrates a small volume of ascites. IMPRESSION: 1. Small volume of ascites. The paracentesis was canceled. Reviewed, dictated and finalized at location A.
[2023-02-22] MEDS: MORPHINE SULFATE (*CRX) 4 MG/ML INJ IV PUSH (16:51)
[2023-02-22 17:02] LABS: Basophils Percent Auto 0.5 % (0.2-1.2); Eosinophils Absolute Auto 0.1 K/mm3 (0-0.3); Eosinophils Percent Auto 1.2 % (0-4.4); Hematocrit 36.6 % (42.0-52.0); Hemoglobin 10.6 g/dL (14.0-18.0); Immature Granulocyte Absolute 0.04 K/mm3 (0.00-0.031); Immature Granulocyte Percent A 0.5 % (0-0.5); Immature Platelet Fraction Pct 3.9 % (0.9-11.2); Lymphocytes Percent Auto 12.7 % (18.3-44.2); Mean Corpuscular Hemoglobin 26.4 pg (26-34); Mean Corpuscular Volume 91.3 fl (80-100); Mean Platelet Volume 10.6 fl (7.4-10.4); Monocytes Absolute Auto 0.8 K/mm3 (0.1-0.6); Monocytes Percent Auto 9.7 % (2.6-8.5); Neutrophils Absolute Auto 6.6 K/mm3 (1.3-6.7); Neutrophils Percent Auto 75.4 % (45.5-73.1); Platelet Count Result 132 k/mm3 (150-375); Red Blood Count 4.01 M/mm3 (4.6-6.20); Red Cell Distribution Width 16.6 % (11.5-14.5); White Blood Count 8.7 K/mm3 (4.5-10.0)
[2023-02-22 17:14] LABS: Alanine Aminotransferase 12 U/L (6-50); Albumin Level 2.7 g/dL (3.5-5.1); Alkaline Phosphatase 305 U/L (38-126); Anion Gap 5 mmol/L (8-16); Aspartate Amino Transferase 34 U/L (17-59); Bilirubin,Total 0.7 mg/dL (0.2-1.3); Blood Urea Nitrogen 17 mg/dL (9-20); Calcium 8.1 mg/dL (8.4-10.2); Carbon Dioxide 19 mmol/L (22-30); Chloride 109 mmol/L (98-107); Estimated CRCL calculation 65 ml/min; Estimated Glomerular Filt Rate > 60; Glucose 90 mg/dL (65-110); Magnesium 1.8 mg/dL (1.6-2.3); Potassium 4.9 mmol/L (3.4-5.0); Sodium 133 mmol/L (137-145)
[2023-02-22 17:15] LABS: Ovalocytes 1+ (NORMAL); Schistocytes None Seen (NORMAL)
[2023-02-22 17:16] LABS: Hypochromasia 1+ (NORMAL); Platelet Estimate Adequate (Adequate)
[2023-02-22] MEDS: FUROSEMIDE INJ 40 MG/4 ML VIAL IV PUSH (18:17)
--- NOTE | 2023-02-22 18:27 | ED.MALEGU ---
HPI - Male Genitourinary General Chief complaint: Urogenital-Male Stated complaint: swelling to extremities Time Seen by Provider: 02/22/23 16:12 History of Present Illness HPI Narrative: This is a 53-year-old male, with past history of cirrhosis and ascites, who presents emergency department complaining of painful swelling of the scrotum and legs for the past 2 days. The patient states despite taking Lasix regularly, he began developing increasing swelling of the scrotum. He was advised by his doctor to increase his dose from 40 twice a day to 80 twice a day. He did so, but continued to have swelling. He complains of moderate to severe scrotal pain bilaterally. He has no other complaints at this time. Related Data Home Medications Medication Instructions Recorded Confirmed potassium chloride 20 mEq 20 meq PO BID 04/11/22 02/22/23 tablet,extended release(part/cryst) ondansetron 4 mg disintegrating 4 mg PO Q4H PRN Nausea 07/16/22 02/22/23 tablet furosemide 40 mg tablet 80 mg PO BID 08/25/22 02/22/23 gabapentin 300 mg capsule 300 mg PO HS 01/21/23 02/22/23 insulin lispro protamine-lispro 5 unit subcut BID 01/21/23 02/22/23 100 unit/mL (75-25) subcutaneous pen oxycodone 20 mg tablet 20 mg PO QID PRN Pain (Scale Score 01/21/23 02/22/23 7-10) pregabalin 75 mg capsule 75 mg PO DAILY 01/21/23 02/22/23 Allergies Allergy/AdvReac Type Severity Reaction Status Date / Time ceftriaxone AdvReac Itching Verified 02/22/23 20:41 ciprofloxacin AdvReac Itching Verified 02/22/23 20:41 Review of Systems Review of Systems: CONSTITUTIONAL: Denies fever, chills, or sweats. CARDIOVASCULAR: Edema of the bilateral lower extremities and scrotum denies chest pain, palpitations, RESPIRATORY: Denies cough or dyspnea. GASTROINTESTINAL: Denies abdominal pain, nausea, vomiting, or diarrhea. GENITOURINARY: Scrotal swelling and pain denies dysuria or hematuria. SKIN: Denies rash or itching. MUSCULOSKELETAL: Denies back pain, joint pain, or myalgia. NEUROLOGIC: Denies headache, numbness, dizziness, or weakness. PSYCHIATRIC: Denies anxiety or depression. PMFSH Past Medical History Medical History Arthritis C. difficile colitis Cerebrovascular accident (2004) Chronic anemia Cirrhosis of liver with ascites Diarrhea Diastolic congestive heart failure Esophageal varices Gastric ulcer Gastroesophageal reflux disease GI bleed Hyperglycemia Hypertension Kidney stone Leukemia In childhood. Pancreatic abnormality Pericardial effusion Noted on CT and echocardiogram in August 2020. No evidence of tamponade. Portal hypertensive gastropathy Noted on endoscopy on 03/23/[address] Duran. Prostate cancer Status post radiation seed implantation. Smoker Spontaneous bacterial peritonitis (04/2020) Tobacco dependence Type 2 diabetes mellitus Surgical History Surgical History History of appendectomy History of cholecystectomy History of cystoscopy History of inguinal hernia repair History of lithotripsy History of repair of right rotator cuff Family History Family History (Updated 02/22/23 @ 20:53 by Chuck Tello RN) Mother Breast cancer Father Acute myocardial infarction Heart disease Hypertension Other Diabetes mellitus Maternal Uncle Sibling Family history of malignant neoplasm Social History Social History Social History: Surrogate decision maker: Myra Worley () or Marnie Washington (aunt). Code status: Full code Smoking packs per day: 0.5 Smoking cigarettes per day: 10.0 Years smoked: 35 Smoking pack-years: 17.50 Smoking status: Former smoker Tobacco type: cigarettes Second hand tobacco smoke exposure: No Alcohol intake: former Drinks per week: 0 Alcohol use details: Former beer drinker. Shah
[2023-02-22] MEDS: HYDROmorphone HCL INJ (*CRX) 1 MG/ML SYR IV PUSH (19:06)
--- NOTE | 2023-02-22 19:22 | PC.NURSE ---
Assumed care of pt from COREY Cantu at this time.
--- NOTE | 2023-02-22 20:30 | PM.IMHP ---
H&P: HPI History of Present Illness Date/Time: 02/22/23 17:45 Chief Complaint: Swelling. Narrative: This is a 53-year-old male with history of cirrhosis (presumed autoimmune), esophageal varices, gastric ulcers, pericardial effusion, pulmonary hypertension, diabetes, and diastolic congestive heart failure who presented to the emergency department via EMS from home for evaluation of swelling. The patient provides the following history. He is known to myself and the hospitalist service from admissions over the years, most recently with bloody stools which stabilized requiring no intervention. He has been home about 10 days since his last discharge. He has frequent, reaccumulating ascites and is now requiring a paracentesis almost every other day. He is compliant with his medications and he has talked to his paper baling machine operator about possibly putting in a long-term drain so he does not have to continue to go out of the house frequently for the procedure however that was apparently denied. In any event, the last several days he has had increasing swelling in his legs, up to the abdomen. This time however his scrotum has started to swell and it is painful and uncomfortable with sitting and walking. He doubled up on his Lasix a couple of days ago and has had an increase in urine output though the swelling has not improved in fact a continues to get worse. He is worried that he is going to have difficulties urinating as the penis is also swollen. His ascites has also reaccumulated and he has some discomfort there as well. He denies fever, nausea, vomiting, and dark stools. Review of Systems Review of Systems: Twelve systems were reviewed and are negative except for as per HPI. PENDING SALE TO [facility] Past Medical History Medical History Arthritis C. difficile colitis Cerebrovascular accident (2004) Chronic anemia Cirrhosis of liver with ascites Diarrhea Diastolic congestive heart failure Esophageal varices Gastric ulcer Gastroesophageal reflux disease GI bleed Hyperglycemia Hypertension Kidney stone Leukemia In childhood. Pancreatic abnormality Pericardial effusion Noted on CT and echocardiogram in August 2020. No evidence of tamponade. Portal hypertensive gastropathy Noted on endoscopy on 03/23/[address] Duran. Prostate cancer Status post radiation seed implantation. Smoker Spontaneous bacterial peritonitis (04/2020) Tobacco dependence Type 2 diabetes mellitus Surgical History Surgical History History of appendectomy History of cholecystectomy History of cystoscopy History of inguinal hernia repair History of lithotripsy History of repair of right rotator cuff Family History Family History Mother Breast cancer Father Acute myocardial infarction Heart disease Hypertension Other Diabetes mellitus Maternal Uncle Sibling Family history of malignant neoplasm Social History Social History Social History: Surrogate decision maker: Myra Worley () or Marnie Felix (aunt). Code status: Full code Smoking packs per day: 0.5 Smoking cigarettes per day: 10.0 Years smoked: 35 Smoking pack-years: 17.50 Smoking status: Former smoker Tobacco type: cigarettes Second hand tobacco smoke exposure: No Alcohol intake: former Drinks per week: 0 Alcohol use details: Former beer drinker. Substance use: never Substance use type: does not use Other substance usage details: DECEMBER 16 2022 LAST DRINK- BEER Lack of Transportation: No Lack of Food: Never True Current Housing: I Have Housing Concerned About Future Housing: No Difficulty Paying Gas/Electric Bills: No Difficulty Paying for Meds: No Currently Unemployed: No Education: Bachelor's Degree Difficulty w/ Ch
[2023-02-22] MEDS: INSULIN GLARGINE (*BKC) 100 UNITS/ML 12 UNITS SUB-Q (21:21)
[2023-02-22 21:36] LABS: Glucose Point of Care 98 mg/dl (65-105)
[2023-02-22] MEDS: HYDROmorphone HCL INJ (*CRX) 2 MG/ML VIAL 1 MG IV PUSH (22:20)
[2023-02-23] VITALS (12 sets, daily range): BP systolic 106–123; BP diastolic 74–86; PULSE 80–112; RESP 17–18; TEMP 35.8–36.7; O2SAT 95–100; BMI 30.3
[2023-02-23] MEDS: FUROSEMIDE INJ 40 MG/4 ML VIAL IV PUSH ×3 (01:21→18:19)
[2023-02-23] MEDS: HYDROmorphone HCL INJ (*CRX) 2 MG/ML VIAL 1 MG IV PUSH ×7 (01:21→21:52)
[2023-02-23 06:05] LABS: Basophils Percent Auto 0.5 % (0.2-1.2); Eosinophils Absolute Auto 0.2 K/mm3 (0-0.3); Eosinophils Percent Auto 3.3 % (0-4.4); Hemoglobin 9.6 g/dL (14.0-18.0); Immature Granulocyte Absolute 0.03 K/mm3 (0.00-0.031); Immature Granulocyte Percent A 0.5 % (0-0.5); Immature Platelet Fraction Pct 4.2 % (0.9-11.2); Lymphocytes Absolute Auto 0.91 K/mm3 (0.9-3.2); Mean Corpuscular Volume 90.1 fl (80-100); Mean Platelet Volume 10.8 fl (7.4-10.4); Monocytes Absolute Auto 0.8 K/mm3 (0.1-0.6); Monocytes Percent Auto 13.2 % (2.6-8.5); Neutrophils Absolute Auto 4.1 K/mm3 (1.3-6.7); Neutrophils Percent Auto 67.5 % (45.5-73.1); Platelet Count Result 108 k/mm3 (150-375); Red Blood Count 3.55 M/mm3 (4.6-6.20); Red Cell Distribution Width 16.3 % (11.5-14.5); White Blood Count 6.1 K/mm3 (4.5-10.0)
[2023-02-23 06:12] LABS: Alanine Aminotransferase 11 U/L (6-50); Albumin Level 2.4 g/dL (3.5-5.1); Alkaline Phosphatase 232 U/L (38-126); Anion Gap 5 mmol/L (8-16); Aspartate Amino Transferase 28 U/L (17-59); Bilirubin,Total 0.4 mg/dL (0.2-1.3); Blood Urea Nitrogen 18 mg/dL (9-20); Calcium 7.4 mg/dL (8.4-10.2); Carbon Dioxide 18 mmol/L (22-30); Chloride 107 mmol/L (98-107); Estimated CRCL calculation 65 ml/min; Estimated Glomerular Filt Rate > 60; Glucose 107 mg/dL (65-110); Magnesium 1.6 mg/dL (1.6-2.3); Sodium 130 mmol/L (137-145)
[2023-02-23] MEDS: HYDROcodone/acetaminophen (*CRX) 5-325 MG TABLET 1 TAB PO ×2 (06:56→12:46)
--- NOTE | 2023-02-23 16:19 | PC.NURSE ---
Physical assessment by Student Nurse Kristy Trejo/[facility] reviewed. Agree with same. Any procedures, care or medications that were given by student nurse were completed under direct supervision of this instructor or assigned staff nurse.
--- NOTE | 2023-02-23 16:51 | PM.IMPN ---
Progress Note: A&P Assessment and Plan (1) Anasarca: Code(s): R60.1 - Generalized edema Status: Acute (2) Cirrhosis of liver with ascites: Qualifiers: Hepatic cirrhosis type: unspecified hepatic cirrhosis Qualified Code(s): K74.60 - Unspecified cirrhosis of liver; R18.8 - Other ascites Code(s): K74.60 - Unspecified cirrhosis of liver; R18.8 - Other ascites Status: Chronic (3) Chronic anemia: Code(s): D64.9 - Anemia, unspecified Status: Acute (4) Diastolic congestive heart failure: Qualifiers: Heart failure chronicity: chronic Qualified Code(s): I50.32 - Chronic diastolic (congestive) heart failure Code(s): I50.30 - Unspecified diastolic (congestive) heart failure Status: Acute (5) Type 2 diabetes mellitus: Qualifiers: Diabetes mellitus complication status: without complication Diabetes mellitus penitentiary insulin use: without intermission coordinator use Qualified Code(s): E11.9 - Type 2 diabetes mellitus without complications Code(s): E11.9 - Type 2 diabetes mellitus without complications Status: Acute Plan The patient presented to the emergency department for evaluation of significant increase in edema extending up to the flanks. Most notably his penis and scrotum are markedly edematous which is causing him the most discomfort. Labs, imaging, EKG, and all reports were personally reviewed. He has doubled up on his Lasix and reports an increase in urine output though worsening edema. He states compliance with all of his other medications as well. He has been started on IV furosemide 40 mg b.i.d. which will be titrated for adequate diuresis. Continue spironolactone. Paracentesis completed this a.m with removal of 4 L ascites fluid.. Venous Doppler ultrasounds ordered to rule out DVT given marked swelling Was negative. 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 He was recently discharged 10 days ago. Is compliant with his medication. His planned to be placed on long-term drain however this was denied. Decreased swelling in the legs up to the abdomen and scrotum doubled up his Lasix couple days ago and hence came to the ER for evaluation Review of Systems Review of Systems: All systems reviewed & are unremarkable except as noted in HPI and below Exam Narrative: General:?Chronically ill-appearing male sitting up in bed in no acute distress. HEENT:?Wearing glasses. PERRL, EOMI. Sclera anicteric. Tacky mucous membranes. Neck:??Supple. Respiratory:?Lungs are clear to auscultation bilaterally. Cardiovascular:??Regular rate and rhythm with S1-S2. Gastrointestinal:??Abdomen is slightly firm and protuberant with shifting dullness. Mild tenderness to palpation throughout the abdomen which is not unusual for him. No guarding or rebound tenderness. Right mid quadrant has a colostomy bag which contains a small amount of peritoneal fluid that is draining out of the site from a recent paracentesis. Genitourinary: Penis and scrotum are swollen. Scrotum is roughly the size of a cantaloupe. Skin:??Warm and dry. Sallow. Extremities:??No cyanosis or clubbing. Hard and tight pitting edema from the feet extending the lower flank. Neurological:??Alert.? Cranial nerves 2-12 are grossly intact. No gross focal deficits to casual conversation. Psychiatric:??Pleasant and cooperative with appropriate mood and affect. Objective Data Vital Signs Vital Signs: Vital Signs - 24 hr 02/22/23 16:55 02/22/23 17:12 02/22/23 18:20 Temperature Pulse Rate 109 H 110 H 113 H Respiratory Rate 16 21 H 13 Blood Pressure 123/90 117/87 98/63 L Pulse Oximetry 100 100 100 Ox
[2023-02-23] MEDS: SPIRONOLACTONE 50 MG TABLET 100 MG PO (18:49)
[2023-02-23] MEDS: POTASSIUM CHLORIDE 20 MEQ ER TABLET PO (18:50)
[2023-02-23] MEDS: GABAPENTIN 300 MG CAPSULE PO (20:07)
[2023-02-23] MEDS: oxyCODONE HCL (*CRX) 5 MG TAB IR 20 MG PO (20:07)
[2023-02-23] MEDS: carvediloL 12.5 MG TABLET PO (20:08)
[2023-02-23] MEDS: PANTOPRAZOLE 40 MG TABLET PO (20:08)
[2023-02-23] MEDS: ALBUMIN HUMAN 25% 25 GM/100 ML 100 ML IVPB (20:11)
[2023-02-23] MEDS: SODIUM CHLORIDE 0.9% IV 50 ML 60 ML (20:12)
[2023-02-23 22:05] LABS: Glucose Point of Care 112 mg/dl (65-105)
[2023-02-24] VITALS: BP 95/61; PULSE 98; RESP 18; TEMP 36.1; O2SAT 96
[2023-02-24] MEDS: HYDROmorphone HCL INJ (*CRX) 2 MG/ML VIAL 1 MG IV PUSH ×7 (01:04→22:13)
[2023-02-24] MEDS: ALBUMIN HUMAN 25% 25 GM/100 ML 100 ML IVPB ×4 (01:07→18:31)
[2023-02-24 03:11] VITALS: BP 93/64; PULSE 84; RESP 18; TEMP 36.2; O2SAT 98
[2023-02-24] MEDS: oxyCODONE HCL (*CRX) 5 MG TAB IR 20 MG PO ×5 (03:18→21:08)
[2023-02-24 06:01] LABS: Basophils Percent Auto 0.8 % (0.2-1.2); Eosinophils Absolute Auto 0.2 K/mm3 (0-0.3); Eosinophils Percent Auto 3.8 % (0-4.4); Hematocrit 33.6 % (42.0-52.0); Hemoglobin 9.9 g/dL (14.0-18.0); Immature Granulocyte Absolute 0.03 K/mm3 (0.00-0.031); Immature Granulocyte Percent A 0.6 % (0-0.5); Lymphocytes Absolute Auto 1.11 K/mm3 (0.9-3.2); Lymphocytes Percent Auto 20.9 % (18.3-44.2); Mean Corpuscular HGB Conc 29.5 g/dl (32-36); Mean Corpuscular Hemoglobin 26.8 pg (26-34); Mean Corpuscular Volume 91.1 fl (80-100); Mean Platelet Volume 10.7 fl (7.4-10.4); Monocytes Absolute Auto 0.6 K/mm3 (0.1-0.6); Monocytes Percent Auto 11.5 % (2.6-8.5); Neutrophils Absolute Auto 3.3 K/mm3 (1.3-6.7); Neutrophils Percent Auto 62.4 % (45.5-73.1); Platelet Count Result 101 k/mm3 (150-375); Red Blood Count 3.69 M/mm3 (4.6-6.20); Red Cell Distribution Width 16.5 % (11.5-14.5); White Blood Count 5.3 K/mm3 (4.5-10.0)
[2023-02-24 06:14] LABS: Alanine Aminotransferase 9 U/L (6-50); Albumin Level 3.1 g/dL (3.5-5.1); Alkaline Phosphatase 187 U/L (38-126); Anion Gap 9 mmol/L (8-16); Aspartate Amino Transferase 25 U/L (17-59); Bilirubin,Total 0.4 mg/dL (0.2-1.3); Blood Urea Nitrogen 21 mg/dL (9-20); Carbon Dioxide 24 mmol/L (22-30); Chloride 98 mmol/L (98-107); Estimated CRCL calculation 50 ml/min; Estimated Glomerular Filt Rate 58; Glucose 78 mg/dL (65-110); Magnesium 1.6 mg/dL (1.6-2.3); Potassium 3.8 mmol/L (3.4-5.0); Sodium 131 mmol/L (137-145)
[2023-02-24 07:14] LABS: Hypochromasia 1+ (NORMAL); Platelet Estimate Decreased (Adequate); Schistocytes None Seen (NORMAL)
[2023-02-24] MEDS: PREGABALIN (*CRX) 75 MG CAPSULE PO (08:01)
[2023-02-24] MEDS: POTASSIUM CHLORIDE 20 MEQ ER TABLET PO ×2 (08:01→16:57)
[2023-02-24] MEDS: SPIRONOLACTONE 50 MG TABLET 100 MG PO ×2 (08:01→16:57)
[2023-02-24] MEDS: carvediloL 12.5 MG TABLET PO ×2 (08:01→21:08)
[2023-02-24] MEDS: PANTOPRAZOLE 40 MG TABLET PO ×2 (08:01→21:11)
[2023-02-24 08:34] LABS: Glucose Point of Care 111 mg/dl (65-105)
[2023-02-24 11:24] LABS: Glucose Point of Care 145 mg/dl (65-105)
--- NOTE | 2023-02-24 11:38 | PC.NURSE ---
On 02/24/23, the student, [Andrew Street], provided care and completed [facility] documentation on this patient. I have reviewed the student's documentation and agree with the findings.
[2023-02-24] MEDS: FUROSEMIDE INJ 40 MG/4 ML VIAL IV PUSH ×2 (11:51→16:57)
--- NOTE | 2023-02-24 13:36 | PM.IMPN ---
Progress Note: A&P Assessment and Plan (1) Anasarca: Code(s): R60.1 - Generalized edema Status: Acute (2) Cirrhosis of liver with ascites: Qualifiers: Hepatic cirrhosis type: unspecified hepatic cirrhosis Qualified Code(s): K74.60 - Unspecified cirrhosis of liver; R18.8 - Other ascites Code(s): K74.60 - Unspecified cirrhosis of liver; R18.8 - Other ascites Status: Chronic (3) Chronic anemia: Code(s): D64.9 - Anemia, unspecified Status: Acute (4) Diastolic congestive heart failure: Qualifiers: Heart failure chronicity: chronic Qualified Code(s): I50.32 - Chronic diastolic (congestive) heart failure Code(s): I50.30 - Unspecified diastolic (congestive) heart failure Status: Acute (5) Type 2 diabetes mellitus: Qualifiers: Diabetes mellitus fpc insulin use: without termite control service representative use Diabetes mellitus complication status: without complication Qualified Code(s): E11.9 - Type 2 diabetes mellitus without complications Code(s): E11.9 - Type 2 diabetes mellitus without complications Status: Acute Plan The patient presented to the emergency department for evaluation of significant increase in edema extending up to the flanks. Most notably his penis and scrotum are markedly edematous which is causing him the most discomfort. Labs, imaging, EKG, and all reports were personally reviewed. He has doubled up on his Lasix and reports an increase in urine output though worsening edema. He states compliance with all of his other medications as well. He has been started on IV furosemide 40 mg b.i.d. which will be titrated for adequate diuresis. Continue spironolactone. Paracentesis completed 02/23/2023 with removal of 4 L ascites fluid.. Venous Doppler ultrasounds ordered to rule out DVT given marked swelling Was negative. Mild hyponatremia add albumin change pain medications Will order repeat paracentesis in a.m. continue diuresis as ordered along with albumin. 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 He was recently discharged 10 days ago. Is compliant with his medication. His planned to be placed on long-term drain however this was denied. Decreased swelling in the legs up to the abdomen and scrotum doubled up his Lasix couple days ago and hence came to the ER for evaluation 02/24/2023: Swelling is little down. Still quite a bit. Denies any nausea vomiting injection sites a leaking Review of Systems Review of Systems: All systems reviewed & are unremarkable except as noted in HPI and below Exam Narrative: General:?Chronically ill-appearing male sitting up in bed in no acute distress. HEENT:?Wearing glasses. PERRL, EOMI. Sclera anicteric. Tacky mucous membranes. Neck:??Supple. Respiratory:?Lungs are clear to auscultation bilaterally. Cardiovascular:??Regular rate and rhythm with S1-S2. Gastrointestinal:??Abdomen is slightly firm and protuberant with shifting dullness. Mild tenderness to palpation throughout the abdomen which is not unusual for him. No guarding or rebound tenderness. Right mid quadrant and left mid quadrant has a colostomy bag which contains a small amount of peritoneal fluid that is draining out of the site from a recent paracentesis. Genitourinary: Penis and scrotum are swollen. Scrotum is roughly the size of a cantaloupe. Skin:??Warm and dry. Sallow. Extremities:??No cyanosis or clubbing. Hard and tight pitting edema from the feet extending the lower flank. Neurological:??Alert.? Cranial nerves 2-12 are grossly intact. No gross focal deficits to casual c
[2023-02-24 14:00] VITALS: BP 99/66; PULSE 85; RESP 18; TEMP 36.6; O2SAT 99
[2023-02-24 16:54] LABS: Glucose Point of Care 120 mg/dl (65-105)
[2023-02-24 20:35] LABS: Glucose Point of Care 122 mg/dl (65-105)
[2023-02-24 21:08] VITALS: PULSE 85
[2023-02-24] MEDS: GABAPENTIN 300 MG CAPSULE PO (21:11)
[2023-02-24 21:46] VITALS: BP 112/73; PULSE 85; RESP 21; TEMP 36.6; O2SAT 100
[2023-02-25] MEDS: ALBUMIN HUMAN 25% 25 GM/100 ML 100 ML IVPB ×4 (01:55→18:17)
[2023-02-25] MEDS: HYDROmorphone HCL INJ (*CRX) 2 MG/ML VIAL 1 MG IV PUSH ×5 (02:03→18:15)
[2023-02-25] MEDS: oxyCODONE HCL (*CRX) 5 MG TAB IR 20 MG PO ×2 (03:25→22:11)
[2023-02-25 05:35] LABS: Basophils Percent Auto 0.2 % (0.2-1.2); Eosinophils Absolute Auto 0.1 K/mm3 (0-0.3); Eosinophils Percent Auto 2.3 % (0-4.4); Hematocrit 28.3 % (42.0-52.0); Hemoglobin 8.3 g/dL (14.0-18.0); Immature Granulocyte Absolute 0.01 K/mm3 (0.00-0.031); Immature Granulocyte Percent A 0.2 % (0-0.5); Immature Platelet Fraction Pct 4.7 % (0.9-11.2); Lymphocytes Absolute Auto 0.52 K/mm3 (0.9-3.2); Lymphocytes Percent Auto 12.2 % (18.3-44.2); Mean Corpuscular HGB Conc 29.3 g/dl (32-36); Mean Corpuscular Hemoglobin 26.7 pg (26-34); Mean Platelet Volume 10.8 fl (7.4-10.4); Monocytes Absolute Auto 0.5 K/mm3 (0.1-0.6); Monocytes Percent Auto 11.5 % (2.6-8.5); Neutrophils Absolute Auto 3.1 K/mm3 (1.3-6.7); Neutrophils Percent Auto 73.6 % (45.5-73.1); Platelet Count Result 81 k/mm3 (150-375); Red Blood Count 3.11 M/mm3 (4.6-6.20); Red Cell Distribution Width 16.7 % (11.5-14.5); White Blood Count 4.3 K/mm3 (4.5-10.0)
[2023-02-25 05:41] LABS: Alanine Aminotransferase 8 U/L (6-50); Albumin Level 3.4 g/dL (3.5-5.1); Alkaline Phosphatase 116 U/L (38-126); Anion Gap 7 mmol/L (8-16); Aspartate Amino Transferase 20 U/L (17-59); Bilirubin,Total 0.4 mg/dL (0.2-1.3); Blood Urea Nitrogen 22 mg/dL (9-20); Calcium 8.2 mg/dL (8.4-10.2); Carbon Dioxide 23 mmol/L (22-30); Chloride 103 mmol/L (98-107); Estimated CRCL calculation 50 ml/min; Estimated Glomerular Filt Rate 58; Glucose 118 mg/dL (65-110); Magnesium 1.6 mg/dL (1.6-2.3); Potassium 3.9 mmol/L (3.4-5.0); Sodium 133 mmol/L (137-145)
[2023-02-25 06:00] VITALS: BP 107/59; PULSE 86; RESP 20; TEMP 36.5; O2SAT 99
[2023-02-25 08:21] LABS: Glucose Point of Care 142 mg/dl (65-105)
[2023-02-25] MEDS: FUROSEMIDE INJ 40 MG/4 ML VIAL IV PUSH ×2 (08:32→18:00)
[2023-02-25] MEDS: PANTOPRAZOLE 40 MG TABLET PO ×2 (08:33→20:16)
[2023-02-25] MEDS: carvediloL 12.5 MG TABLET PO ×2 (08:33→20:16)
[2023-02-25] MEDS: POTASSIUM CHLORIDE 20 MEQ ER TABLET PO ×2 (08:33→18:01)
[2023-02-25] MEDS: SPIRONOLACTONE 50 MG TABLET 100 MG PO ×2 (08:33→18:00)
[2023-02-25] MEDS: PREGABALIN (*CRX) 75 MG CAPSULE PO (08:33)
[2023-02-25 12:20] LABS: Glucose Point of Care 119 mg/dl (65-105)
[2023-02-25 14:00] VITALS: BP 92/58; PULSE 82; RESP 18; TEMP 36.4; O2SAT 100
[2023-02-25 16:58] LABS: Glucose Point of Care 136 mg/dl (65-105)
--- NOTE | 2023-02-25 18:25 | PM.IMPN ---
Progress Note: A&P Assessment and Plan (1) Abdominal ascites: Code(s): R18.8 - Other ascites Status: Acute (2) Anasarca: Code(s): R60.1 - Generalized edema Status: Acute Plan 53M w/ PMH presumed autoimmune cirrhosis with esophageal varices and gastric ulcer, pericardial effusion, Pulm HTN, DM, HFpEF presented with increased abdominal ascites, abdominal pain and scrotal swelling and pain. Diagnoses: abdominal ascites scrotal pain anasarca 1) scrotal pain - per the patient, the height of his problem is the persistent scrotal swelling and pain. He typically gets QOD paracentesis with approx 5L, and he has been prescribed lasix 80mg IV BID at home. here we have done paracentesis BID and lasix 40mg IV BID which has not helped. as well, his albumin is low and has come up to near normal with albumin scheduled, and that has not helped. - moving forward, increase lasix to 80mg IV TID although I suspect with the severity of his abdominal distention and continuous osmotic leakage through the abdominal wall, it will be to no avail. 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 will have to revisit this route again tomorrow vs hospice. - dilaudid increased from q3hr to q2hr as it was only helping temporarily FEN:cardiac diet GI prophylaxis: protonix DVT prophylaxis: SCD's Lines: pIV Code Status: Full Code Dispo:home pending treatment of ascites and scrotal swelling More than 35 minutes spent on chart review, patient interaction and assessment and plan. Subjective Date/time seen: 02/25/23 18:25 Interval history: Pt seen at bedside. He reports leakage of all of his recent paracentesis sites. His paracentesis today went well although he reports blood tinged urine leaking into the bag. It has since resolved although. More importantly, his scrotal swelling is the same as is his pain. Review of Systems Cardiovascular: Cardiovascular: Denies chest pain and Denies dyspnea Respiratory: Respiratory: Denies cough and Denies dyspnea Gastrointestinal: Gastrointestinal: Reports abdominal pain and Denies vomiting Comments: abdominal swelling Genitourinary: Comments: scrotal swelling Exam Const: General: no acute distress, alert and Physically active Resp: Effort & Inspection: normal respiratory effort Auscultation: clear to auscultation bilaterally Cardio: Rate: regular rate Rhythm: regular rhythm Heart sounds: S1 normal heart sound present and S2 normal heart sound present GI: Inspection: distended GI Palp: No abdominal tenderness, Yes Firmness to palpation present (GI) and No Tenderness to palpation present (GI) : Other: scrotal edema w/ tenderness to palpation Extrem: Right upper extremity: no edema Objective Data Vital Signs Vital Signs: Vital Signs - 24 hr 02/24/23 20:00 02/24/23 21:08 02/24/23 21:46 Temperature 97.8 F Pulse Rate 85 85 Respiratory Rate 21 H Blood Pressure 112/73 Pulse Oximetry 100 Oxygen Delivery Room Air 02/25/23 06:00 02/25/23 14:00 Temperature 97.7 F 97.6 F Pulse Rate 86 82 Respiratory Rate 20 18 Blood Pressure 107/59 L 92/58 L Pulse Oximetry 99 100 Oxygen Delivery Intake/Output Intake/Output: Intake & Output 02/22/23 02/23/23 02/24/23 02/25/23 23:59 23:59 23:59 23:59 Intake Total 1300 2100 1670 Output Total 4000 1075 4500 Balance -2700 1025 -2830 Meds/Results Medications: Active Medications Generic Name Dose Route Start Last Admin Trade Name Freq PRN Reason Stop Dose Admin Carvedilol 12.5 mg 02/23/23 21:00 02/25/23 08:33 Carvedilol 12.5 Mg Tablet PO 12.5 mg Q12HR FORTINO Administration Dextrose 12.5 gm 02/22/23 18:07 Dextrose 50% 25 Gm/50 Ml Syringe IV PUSH PRN PRN Hypoglycemia Protocol Furosemide 80 mg 02/25/23 19:00 Furosemide Inj 100 Mg/10 Ml Vial IV PUSH TID FORTINO Gabapentin 300 mg 02/23/23 21:00 09
[2023-02-25 19:36] VITALS: BP 102/46; PULSE 87; RESP 18; TEMP 36.6; O2SAT 100
[2023-02-25 20:16] VITALS: PULSE 87
[2023-02-25] MEDS: GABAPENTIN 300 MG CAPSULE PO (20:16)
[2023-02-25] MEDS: HYDROmorphone HCL INJ (*CRX) 1 MG/ML SYR IV PUSH (20:19)
[2023-02-25 20:47] LABS: Glucose Point of Care 114 mg/dl (65-105)
[2023-02-25 21:20] VITALS: O2SAT 99
[2023-02-25 22:12] VITALS: BP 95/63
[2023-02-26] MEDS: HYDROmorphone HCL INJ (*CRX) 1 MG/ML SYR IV PUSH ×8 (00:19→22:58)
[2023-02-26] MEDS: ALBUMIN HUMAN 25% 25 GM/100 ML 100 ML IVPB ×4 (00:19→18:18)
[2023-02-26] MEDS: HYDROCORTISONE 1% 30 GM OINTMENT 1 APPLIC TOPICAL ×2 (00:50→20:54)
[2023-02-26] MEDS: oxyCODONE HCL (*CRX) 5 MG TAB IR 20 MG PO ×4 (02:23→15:07)
[2023-02-26 06:00] VITALS: BP 99/63; PULSE 83; RESP 18; TEMP 36.7; O2SAT 100
[2023-02-26 06:10] LABS: Hematocrit 27.5 % (42.0-52.0); Hemoglobin 8.1 g/dL (14.0-18.0); Immature Platelet Fraction Pct 5.9 % (0.9-11.2); Mean Corpuscular HGB Conc 29.5 g/dl (32-36); Mean Corpuscular Hemoglobin 26.7 pg (26-34); Mean Corpuscular Volume 90.8 fl (80-100); Mean Platelet Volume 10.5 fl (7.4-10.4); Platelet Count Result 75 k/mm3 (150-375); Red Blood Count 3.03 M/mm3 (4.6-6.20); Red Cell Distribution Width 16.9 % (11.5-14.5); White Blood Count 3.5 K/mm3 (4.5-10.0)
[2023-02-26] MEDS: FUROSEMIDE INJ 100 MG/10 ML VIAL 80 MG IV PUSH ×3 (06:19→20:51)
[2023-02-26 06:22] LABS: Anion Gap 8 mmol/L (8-16); Blood Urea Nitrogen 22 mg/dL (9-20); Calcium 8.4 mg/dL (8.4-10.2); Carbon Dioxide 24 mmol/L (22-30); Chloride 102 mmol/L (98-107); Estimated CRCL calculation 46 ml/min; Estimated Glomerular Filt Rate 53; Glucose 129 mg/dL (65-110); Potassium 4.4 mmol/L (3.4-5.0); Sodium 134 mmol/L (137-145)
[2023-02-26 08:25] LABS: Glucose Point of Care 116 mg/dl (65-105)
[2023-02-26 08:35] VITALS: PULSE 90
[2023-02-26] MEDS: SPIRONOLACTONE 50 MG TABLET 100 MG PO ×2 (08:35→16:52)
[2023-02-26] MEDS: POTASSIUM CHLORIDE 20 MEQ ER TABLET PO ×2 (08:35→16:52)
[2023-02-26] MEDS: carvediloL 12.5 MG TABLET PO (08:35)
[2023-02-26] MEDS: PANTOPRAZOLE 40 MG TABLET PO ×2 (08:35→20:52)
[2023-02-26] MEDS: PREGABALIN (*CRX) 75 MG CAPSULE PO (08:35)
[2023-02-26 12:13] LABS: Glucose Point of Care 170 mg/dl (65-105)
--- NOTE | 2023-02-26 12:38 | PM.IMPN ---
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 Diagnoses: abdominal ascites scrotal pain anasarca 1) scrotal pain/anasarca/ascites - per the patient, the height of his problem is the persistent scrotal swelling and pain. He typically gets QOD paracentesis with approx 5L, and he has been prescribed lasix 80mg IV BID at home. here we have done paracentesis BID and lasix 40mg IV BID which has not helped. as well, his albumin is low and has come up to near normal with albumin scheduled, and that has not helped. - moving forward, increase lasix to 80mg? IV TID although I suspect with the severity of his abdominal distention and continuous osmotic leakage through the abdominal wall, it will be to no avail. He will need increased frequency of paracentesis but has previously refused assisted drain/shunt. will have to revisit this route again tomorrow vs hospice. - dilaudid increased from q3hr to q2hr as it was only helping temporarily - on 02/26/23 --> keep lasix at 80mg IV TID, order paracentesis for tomorrow, start midodrine 5mg po TID and d/c coreg as he has low BP and likely hypoperfusion. he does not have problematic varices at the moment and would highly benefit from increase renal circulation and added natriuresis as he is currently failing diuretic therapy. he agrees to this plan FEN:cardiac diet GI prophylaxis: protonix DVT prophylaxis: SCD's Lines: pIV Code Status: Full Code Dispo:home pending treatment of ascites and scrotal swelling More than 35 minutes spent on chart review, patient interaction and assessment and plan. Subjective Date/time seen: 02/26/23 12:38 Interval history: NAOE. pt reports sleeping better. He complains of persistent pain at the scrotum, but feels the swelling is starting to let up. he has been tolerating diet and denies worsening abdominal pain. Review of Systems Cardiovascular: Cardiovascular: Denies chest pain and Denies dyspnea Respiratory: Respiratory: Denies cough and Denies dyspnea Gastrointestinal: Gastrointestinal: Denies abdominal pain and Denies vomiting Exam Const: General: no acute distress, alert and Physically active Resp: Effort & Inspection: normal respiratory effort Auscultation: clear to auscultation bilaterally Cardio: Rate: regular rate Rhythm: regular rhythm Heart sounds: S1 normal heart sound present and S2 normal heart sound present GI: Inspection: distended GI Palp: No abdominal tenderness and Yes Firmness to palpation present (GI) Extrem: Right upper extremity: no edema Objective Data Vital Signs Vital Signs: Vital Signs - 24 hr 02/25/23 14:00 02/25/23 19:36 02/25/23 20:16 Temperature 97.6 F 97.8 F Pulse Rate 82 87 87 Respiratory Rate 18 18 Blood Pressure 92/58 L 102/46 L Pulse Oximetry 100 100 Oxygen Delivery 02/25/23 22:12 02/25/23 21:20 02/26/23 06:00 Temperature 98.1 F Pulse Rate 83 Respiratory Rate 18 Blood Pressure 95/63 L 99/63 L Pulse Oximetry 99 100 Oxygen Delivery Room Air 02/26/23 08:35 02/26/23 08:00 02/26/23 08:30 Temperature Pulse Rate 90 Respiratory Rate Blood Pressure Pulse Oximetry Oxygen Delivery Room Air Room Air Intake/Output Intake/Output: Intake & Output 02/23/23 02/24/23 02/25/23 02/26/23 23:59 23:59 23:59 23:59 Intake Total 1300 2099 2009 2079 Output Total 4000 1075 5175 1700 Balance -2700 1025 -1489 380 Meds/Results Medications: Active Medications Generic Name Dose Route Start Last Admin Trade Name Freq PRN Reason Stop Dose Admin Dextrose 12.5 gm 02/22/23 18:07 Dextrose 50% 25 Gm/50 Ml
[2023-02-26] MEDS: MIDODRINE HCL 2.5 MG TABLET 5 MG PO ×2 (13:27→16:52)
[2023-02-26 14:00] VITALS: BP 99/63; PULSE 91; RESP 18; TEMP 36.5; O2SAT 99
--- NOTE | 2023-02-26 14:53 | PC.NURSE ---
On 02/26/23, the student, [Yennifer Longo], provided care and completed [facility] documentation on this patient. I have reviewed the student's documentation and agree with the findings.
[2023-02-26 17:08] LABS: Glucose Point of Care 138 mg/dl (65-105)
[2023-02-26] MEDS: GABAPENTIN 300 MG CAPSULE PO (20:52)
[2023-02-26 21:07] VITALS: BP 97/57; PULSE 89; RESP 14; TEMP 36.7; O2SAT 100
[2023-02-26 22:20] LABS: Glucose Point of Care 137 mg/dl (65-105)
[2023-02-27] MEDS: ALBUMIN HUMAN 25% 25 GM/100 ML 100 ML IVPB ×4 (00:49→18:55)
[2023-02-27] MEDS: HYDROmorphone HCL INJ (*CRX) 1 MG/ML SYR IV PUSH ×7 (00:50→22:51)
[2023-02-27] MEDS: ONDANSETRON HCL ODT 4 MG TABLET PO (01:07)
[2023-02-27] MEDS: oxyCODONE HCL (*CRX) 5 MG TAB IR 20 MG PO ×4 (02:56→21:00)
[2023-02-27] MEDS: FUROSEMIDE INJ 100 MG/10 ML VIAL 80 MG IV PUSH ×3 (05:05→21:00)
[2023-02-27 05:11] VITALS: BP 102/74; PULSE 90; RESP 14; TEMP 36.8; O2SAT 97
[2023-02-27 06:24] LABS: Alanine Aminotransferase 8 U/L (6-50); Alkaline Phosphatase 73 U/L (38-126); Anion Gap 9 mmol/L (8-16); Aspartate Amino Transferase 20 U/L (17-59); Bilirubin,Total 0.4 mg/dL (0.2-1.3); Blood Urea Nitrogen 26 mg/dL (9-20); Calcium 8.8 mg/dL (8.4-10.2); Carbon Dioxide 26 mmol/L (22-30); Chloride 98 mmol/L (98-107); Estimated CRCL calculation 54 ml/min; Estimated Glomerular Filt Rate > 60; Glucose 131 mg/dL (65-110); Potassium 4.3 mmol/L (3.4-5.0); Sodium 133 mmol/L (137-145)
[2023-02-27 07:21] LABS: Hematocrit 27.9 % (42.0-52.0); Hemoglobin 8.5 g/dL (14.0-18.0); Immature Platelet Fraction Pct 6.8 % (0.9-11.2); Mean Corpuscular HGB Conc 30.5 g/dl (32-36); Mean Corpuscular Hemoglobin 26.6 pg (26-34); Mean Corpuscular Volume 87.5 fl (80-100); Mean Platelet Volume 10.8 fl (7.4-10.4); Platelet Count Result 82 k/mm3 (150-375); Red Blood Count 3.19 M/mm3 (4.6-6.20); Red Cell Distribution Width 16.9 % (11.5-14.5); White Blood Count 3.3 K/mm3 (4.5-10.0)
[2023-02-27 08:37] LABS: Glucose Point of Care 117 mg/dl (65-105)
[2023-02-27 09:25] VITALS: BP 102/70; PULSE 88; RESP 16; O2SAT 100
[2023-02-27] MEDS: SPIRONOLACTONE 50 MG TABLET 100 MG PO ×2 (09:27→17:45)
[2023-02-27] MEDS: MIDODRINE HCL 2.5 MG TABLET 5 MG PO ×3 (09:27→17:45)
[2023-02-27] MEDS: PANTOPRAZOLE 40 MG TABLET PO ×2 (09:27→21:00)
[2023-02-27] MEDS: PREGABALIN (*CRX) 75 MG CAPSULE PO (09:27)
[2023-02-27] MEDS: POTASSIUM CHLORIDE 20 MEQ ER TABLET PO ×2 (09:27→17:45)
--- NOTE | 2023-02-27 11:49 | PC.NURSE ---
Spoke with patient to educate him that because he take narcotics and diuretics, he qualifies for assistance when ambulating. Patient says they have not put bed alarm on since he's been here. Patient does not want bed alarm and does not think he needs help when ambulating.
[2023-02-27 12:22] LABS: Glucose Point of Care 111 mg/dl (65-105)
[2023-02-27 14:18] VITALS: BP 99/63; PULSE 92; RESP 18; TEMP 36.4; O2SAT 99
--- NOTE | 2023-02-27 14:38 | PM.IMPN ---
Progress Note: A&P Assessment and Plan (1) Anasarca: Code(s): R60.1 - Generalized edema Status: Acute Plan 53M w/ PMH presumed autoimmune cirrhosis with esophageal varices and gastric ulcer, pericardial effusion, Pulm HTN, DM, HFpEF presented with increased abdominal ascites, abdominal pain and scrotal swelling and pain. Diagnoses: abdominal ascites scrotal pain anasarca 1) scrotal pain/anasarca/ascites - per the patient, the height of his problem is the persistent scrotal swelling and pain. He typically gets QOD paracentesis with approx 5L, and he has been prescribed lasix 80mg IV BID at home. here we have done paracentesis BID and lasix 40mg IV BID which has not helped. as well, his albumin is low and has come up to near normal with albumin scheduled, and that has not helped. - moving forward, increase lasix to 80mg? IV TID although I suspect with the severity of his abdominal distention and continuous osmotic leakage through the abdominal wall, it will be to no avail. 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 will have to revisit this route again tomorrow vs hospice. - dilaudid increased from q3hr to q2hr as it was only helping temporarily - on 02/26/23 --> keep lasix at 80mg IV TID, order paracentesis for tomorrow, start midodrine 5mg po TID and d/c coreg as he has low BP and likely hypoperfusion. he does not have problematic varices at the moment and would highly benefit from increase renal circulation and added natriuresis as he is currently failing diuretic therapy. he agrees to this plan - on 02/27/23 --> keep same mgmt plan, paracentesis tomorrow. consider dc albumin tomorrow and discharge home if swelilng is improved again. pt amenable to this. FEN:cardiac diet GI prophylaxis: protonix DVT prophylaxis: SCD's Lines: pIV Code Status: Full Code Dispo:home pending treatment of ascites and scrotal swelling Subjective Date/time seen: 02/27/23 14:38 Interval history: NAOE. pt's paracentesis postponed due to excessive leakage from abdominal wall. he is rescheduled for tomorrow. pt thinks his scrotal swelling is improving but still has pain requiring q2hr dilaudid Review of Systems Review of Systems: Twelve systems were reviewed and are negative except for as per HPI. All systems reviewed & are unremarkable except as noted in HPI and below Cardiovascular: Cardiovascular: Denies chest pain and Denies dyspnea Respiratory: Respiratory: Denies cough and Denies dyspnea Gastrointestinal: Gastrointestinal: Denies abdominal pain and Denies vomiting Exam Narrative: General:?Chronically ill-appearing male sitting up in bed in no acute distress. HEENT:?Wearing glasses. PERRL, EOMI. Sclera anicteric. Tacky mucous membranes. Neck:??Supple. Respiratory:?Lungs are clear to auscultation bilaterally. Cardiovascular:??Regular rate and rhythm with S1-S2. Gastrointestinal:??Abdomen is slightly firm and protuberant with shifting dullness. Mild tenderness to palpation throughout the abdomen which is not unusual for him. No guarding or rebound tenderness. Right mid quadrant and left mid quadrant has a colostomy bag which contains a small amount of peritoneal fluid that is draining out of the site from a recent paracentesis. Genitourinary: Penis and scrotum are swollen. Scrotum is roughly the size of a cantaloupe. Skin:??Warm and dry. Sallow. Extremities:??No cyanosis or clubbing. Hard and tight pitting edema from the feet extending the lower flank. Neurological:??Alert.? Cranial nerves 2-12 are grossly intact. No gross focal deficits to casual conversation. Psychiatric:??Pleasant and cooperative with appropriate mood and affect. Const: General: no acute distress, alert and Physically active Resp: Effort & Inspection: normal respiratory effort Auscultation: clear to auscultation bilaterally Cardio: Rate: regular rate Rhythm: regular rhythm Heart sounds: S1 normal heart sound
[2023-02-27 17:16] LABS: Glucose Point of Care 126 mg/dl (65-105)
[2023-02-27 17:40] VITALS: BP 107/69; PULSE 99; RESP 16; O2SAT 100
[2023-02-27 19:45] VITALS: BP 107/80; PULSE 88; RESP 16; TEMP 36.5; O2SAT 98
[2023-02-27] MEDS: GABAPENTIN 300 MG CAPSULE PO (21:00)
[2023-02-27 21:24] LABS: Glucose Point of Care 178 mg/dl (65-105)
[2023-02-28] MEDS: oxyCODONE HCL (*CRX) 5 MG TAB IR 20 MG PO ×5 (00:53→23:24)
[2023-02-28] MEDS: ALBUMIN HUMAN 25% 25 GM/100 ML 100 ML IVPB ×4 (00:54→18:28)
[2023-02-28] MEDS: HYDROmorphone HCL INJ (*CRX) 1 MG/ML SYR IV PUSH ×8 (02:54→23:28)
[2023-02-28] MEDS: FUROSEMIDE INJ 100 MG/10 ML VIAL 80 MG IV PUSH ×2 (04:56→17:46)
[2023-02-28 04:57] VITALS: BP 106/66; PULSE 79; RESP 16; O2SAT 96
[2023-02-28 05:55] LABS: Hematocrit 28.3 % (42.0-52.0); Hemoglobin 8.4 g/dL (14.0-18.0); Immature Platelet Fraction Pct 6.5 % (0.9-11.2); Mean Corpuscular HGB Conc 29.7 g/dl (32-36); Mean Corpuscular Hemoglobin 26.7 pg (26-34); Mean Corpuscular Volume 89.8 fl (80-100); Mean Platelet Volume 10.2 fl (7.4-10.4); Platelet Count Result 99 k/mm3 (150-375); Red Blood Count 3.15 M/mm3 (4.6-6.20); Red Cell Distribution Width 17.1 % (11.5-14.5); White Blood Count 2.9 K/mm3 (4.5-10.0)
[2023-02-28 06:02] LABS: Alanine Aminotransferase 8 U/L (6-50); Albumin Level 4.9 g/dL (3.5-5.1); Alkaline Phosphatase 73 U/L (38-126); Anion Gap 10 mmol/L (8-16); Aspartate Amino Transferase 22 U/L (17-59); Bilirubin,Total 0.6 mg/dL (0.2-1.3); Blood Urea Nitrogen 28 mg/dL (9-20); Calcium 9.8 mg/dL (8.4-10.2); Carbon Dioxide 33 mmol/L (22-30); Chloride 93 mmol/L (98-107); Estimated CRCL calculation 43 ml/min; Estimated Glomerular Filt Rate 49; Glucose 156 mg/dL (65-110); Potassium 4.5 mmol/L (3.4-5.0); Sodium 136 mmol/L (137-145)
[2023-02-28 07:52] LABS: Glucose Point of Care 154 mg/dl (65-105)
[2023-02-28 09:35] VITALS: BP 101/67; PULSE 100; RESP 16; O2SAT 97
[2023-02-28] MEDS: SPIRONOLACTONE 50 MG TABLET 100 MG PO ×2 (09:36→17:37)
[2023-02-28] MEDS: POTASSIUM CHLORIDE 20 MEQ ER TABLET PO ×2 (09:36→17:37)
[2023-02-28] MEDS: MIDODRINE HCL 2.5 MG TABLET 5 MG PO ×3 (09:37→17:37)
[2023-02-28] MEDS: PREGABALIN (*CRX) 75 MG CAPSULE PO (09:37)
[2023-02-28] MEDS: PANTOPRAZOLE 40 MG TABLET PO ×2 (09:37→20:22)
--- NOTE | 2023-02-28 10:25 | PC.NURSE ---
Spoke with patient about the reasons he qualifies for a bed alarm. Educated patient that he is taking narcotics every 2 hours and he is getting lasix, as well as him being fatigued. Patient refuses bed alarm
--- NOTE | 2023-02-28 10:25 | PM.IMPN ---
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 Diagnoses: abdominal ascites scrotal pain anasarca 1) scrotal pain/anasarca/ascites - presented with scrotal swelling and pain due to failure of diuretics for ascites - improved with d/c of coreg, increased lasix, and initiation of midodrine - 02/28, pt believes scrotal swelling is improved, however he complains of excessive leakage of ascitic fluid through the paracentesis insertion site. this is the usual for him. plan for discharge tomorrow if it is under control. in order to promote closure, have asked nurse to provide dilaudid so that he can lay on his back for an hour while applying tight bandage over the site - ascites and scrotal sweling improved, and we have agreed to accept this as his current balance. decrease lasix back to his usual dosing BID. last paracentesis was 02/25. he usually gets it QOD, however we skipped 02/27 since he has had so much leakage and radiology didn't see enough to drain. performing another ultrasound today to assess need for paracentesis FEN:cardiac diet GI prophylaxis: protonix DVT prophylaxis: SCD's Lines: pIV Code Status: Full Code Dispo:home More than 35 minutes spent on chart review, patient interaction and assessment and plan. Subjective Date/time seen: 02/28/23 10:25 Interval history: NAOE. pt complains that there is an excessive amount of leaking through the paracentesis insertion site which would be unmanageable at home. he complains of pain at the scrotum but the swelling is improved. Review of Systems Cardiovascular: Cardiovascular: Denies chest pain Respiratory: Respiratory: Denies chest congestion, Denies cough and Denies wheezing Gastrointestinal: Gastrointestinal: Denies abdominal pain and Denies diarrhea Comments: distended, abdominal wall leaking Genitourinary: Comments: scrotal pain. decreased scrotal swelling Neurologic: Denies confusion Psychiatric: Psychiatric: Denies anxiety Exam Const: General: comfortable; No no acute distress Eyes: Pupils: Equal, round and reactive pupils present Neck: Neck: supple Resp: Effort & Inspection: normal respiratory effort Auscultation: clear to auscultation bilaterally Cardio: Rate: regular rate Rhythm: regular rhythm GI: Inspection: distended GI Palp: No Tenderness to palpation present (GI) and No Guarding due to palpation present (GI) Neuro: Motor exam (neuro): 5/5 motor strength present throughout Extrem: General: no edema Psych: Mental Status: mental status grossly normal Objective Data Vital Signs Vital Signs: Vital Signs - 24 hr 02/27/23 14:18 02/27/23 17:40 02/27/23 19:45 Temperature 97.6 F 97.7 F Pulse Rate 92 99 88 Respiratory Rate 18 16 16 Blood Pressure 99/63 L 107/69 107/80 Pulse Oximetry 99 100 98 02/28/23 04:57 02/28/23 09:35 Temperature Pulse Rate 79 100 Respiratory Rate 16 16 Blood Pressure 106/66 101/67 Pulse Oximetry 96 97 Intake/Output Intake/Output: Intake & Output 02/25/23 02/26/23 02/27/23 02/28/23 23:59 23:59 23:59 23:59 Intake Total 20090 1600 200 Output Total 9145 0486 5259 1817 [id number] -[id number] -1615 Meds/Results Medications: Active Medications Generic Name Dose Route Start Last Admin Trade Name Freq PRN Reason Stop Dose Admin Dextrose 12.5 gm 02/22/23 18:07 Dextrose 50% 25 Gm/50 Ml Syringe IV PUSH PRN PRN Hypoglycemia Protocol Furosemide 80 mg 02/28/23 17:00 Furosemide Inj 100 Mg/10 Ml Vial IV PUSH BID FORTINO Gabapentin 300 mg 02/23/23 21:00 02/27/23 21:00 Gabapent
[2023-02-28 12:03] LABS: Glucose Point of Care 154 mg/dl (65-105)
[2023-02-28 13:45] VITALS: BP 123/74; PULSE 103; RESP 16; TEMP 36.3; O2SAT 97
[2023-02-28 16:52] LABS: Glucose Point of Care 125 mg/dl (65-105)
--- NOTE | 2023-02-28 18:00 | PC.NURSE ---
Attempted multiple times to wrap patient abdomen with coban and gauze to stop leaking from paracentesis site. abdomen still leaking, replaced urostomy bag back over site to measure drainage
[2023-02-28 19:37] VITALS: BP 116/66; PULSE 77; RESP 20; TEMP 36.4; O2SAT 99
[2023-02-28 20:16] LABS: Glucose Point of Care 148 mg/dl (65-105)
[2023-02-28] MEDS: GABAPENTIN 300 MG CAPSULE PO (20:22)
[2023-02-28] MEDS: HYDROCORTISONE 1% 30 GM OINTMENT 1 APPLIC TOPICAL (20:32)
[2023-02-28 23:28] VITALS: BP 113/71
[2023-02-28] MEDS: ONDANSETRON HCL ODT 4 MG TABLET PO (23:35)
[2023-03-01] MEDS: HYDROmorphone HCL INJ (*CRX) 1 MG/ML SYR IV PUSH ×6 (01:51→14:43)
[2023-03-01] MEDS: ALBUMIN HUMAN 25% 25 GM/100 ML 100 ML IVPB ×4 (01:52→18:09)
[2023-03-01 03:51] VITALS: BP 106/66; PULSE 90; RESP 16; TEMP 36.5; O2SAT 96
[2023-03-01] MEDS: oxyCODONE HCL (*CRX) 5 MG TAB IR 20 MG PO ×5 (03:57→23:23)
[2023-03-01 05:22] LABS: Hematocrit 27.7 % (42.0-52.0); Hemoglobin 8.1 g/dL (14.0-18.0); Mean Corpuscular HGB Conc 29.2 g/dl (32-36); Mean Corpuscular Hemoglobin 26.2 pg (26-34); Mean Corpuscular Volume 89.6 fl (80-100); Platelet Count Result 101 k/mm3 (150-375); Red Blood Count 3.09 M/mm3 (4.6-6.20); Red Cell Distribution Width 17.1 % (11.5-14.5)
[2023-03-01 05:35] LABS: Anion Gap 8 mmol/L (8-16); Blood Urea Nitrogen 33 mg/dL (9-20); Calcium 10.1 mg/dL (8.4-10.2); Carbon Dioxide 33 mmol/L (22-30); Chloride 94 mmol/L (98-107); Estimated CRCL calculation 43 ml/min; Estimated Glomerular Filt Rate 49; Glucose 165 mg/dL (65-110); Potassium 4.8 mmol/L (3.4-5.0); Sodium 135 mmol/L (137-145)
[2023-03-01] MEDS: SPIRONOLACTONE 50 MG TABLET 100 MG PO ×2 (08:06→17:05)
[2023-03-01] MEDS: MIDODRINE HCL 2.5 MG TABLET 5 MG PO ×3 (08:06→17:05)
[2023-03-01] MEDS: PREGABALIN (*CRX) 75 MG CAPSULE PO (08:06)
[2023-03-01] MEDS: PANTOPRAZOLE 40 MG TABLET PO ×2 (08:06→20:50)
[2023-03-01] MEDS: POTASSIUM CHLORIDE 20 MEQ ER TABLET PO ×2 (08:07→17:06)
[2023-03-01] MEDS: FUROSEMIDE INJ 100 MG/10 ML VIAL 80 MG IV PUSH ×2 (08:07→18:09)
[2023-03-01 08:41] LABS: Glucose Point of Care 150 mg/dl (65-105)
[2023-03-01 12:11] LABS: Glucose Point of Care 156 mg/dl (65-105)
[2023-03-01 13:48] VITALS: BP 108/66; PULSE 97; RESP 18; TEMP 36.7; O2SAT 100
--- NOTE | 2023-03-01 15:58 | PM.IMPN ---
Progress Note: A&P Assessment and Plan (1) Anasarca: Code(s): R60.1 - Generalized edema Status: Acute Assessment and Plan: Improving (2) Cirrhosis of liver with ascites: Qualifiers: Hepatic cirrhosis type: unspecified hepatic cirrhosis Qualified Code(s): K74.60 - Unspecified cirrhosis of liver; R18.8 - Other ascites Code(s): K74.60 - Unspecified cirrhosis of liver; R18.8 - Other ascites Status: Chronic Assessment and Plan: Continues to drain from puncture site after paracentesis Not enough fluid for f/u paracentesis Consider closing leak with skin glue but pt wants to wait until 03/02/23 in order to arrange f/u outpatient paracentesis (3) Chronic anemia: Code(s): D64.9 - Anemia, unspecified Status: Acute Assessment and Plan: stable (4) Diastolic congestive heart failure: Qualifiers: Heart failure chronicity: chronic Qualified Code(s): I50.32 - Chronic diastolic (congestive) heart failure Code(s): I50.30 - Unspecified diastolic (congestive) heart failure Status: Acute Assessment and Plan: Clinically stable (5) Type 2 diabetes mellitus: Qualifiers: Diabetes mellitus shelter insulin use: without termite technician use Diabetes mellitus complication status: without complication Qualified Code(s): E11.9 - Type 2 diabetes mellitus without complications Code(s): E11.9 - Type 2 diabetes mellitus without complications Status: Acute Assessment and Plan: 03/01 FBS 156 (6) KAREN (acute kidney injury): Code(s): N17.9 - Acute kidney failure, unspecified Status: Acute Assessment and Plan: Creatinine stable 03/01 at 1.5 but above usual baseline of 1.3 Continue to monitor Subjective Date/time seen: 03/01/23 15:58 Interval history: Still draining about 1/2 L of fluid from paracentesis site per day. Continues with moderate to severe pain in scrotum. Size decreasing with diuresis and paracentesis. Tolerating diet. Takes Percocet 20 mg 4 times a day at home so has high narcotic tolerance. 1 mg of Dilaudid IV relieves his pain but only for an hour so. Denied constipation or difficulty urinating. Denied chest pain or shortness of breath. Denied fevers or chills. Denied abnormal bleeding. History of insurance denial of his transplant referral and awaiting for prior authorization from tourist information officer. Exam Narrative: General:?Chronically ill-appearing male sitting up in bed in no acute distress. HEENT:?Wearing glasses. PERRL, EOMI. Sclera anicteric. Tacky mucous membranes. Neck:??Supple. Respiratory:?Lungs are clear to auscultation bilaterally. Cardiovascular:??Regular rate and rhythm with S1-S2. Gastrointestinal:??Abdomen is slightly firm and protuberant with shifting dullness. Mild tenderness to palpation throughout the abdomen which is not unusual for him. No guarding or rebound tenderness. Right mid quadrant and left mid quadrant has a colostomy bag which contains a small amount of peritoneal fluid that is draining out of the site from a recent paracentesis. Genitourinary: Penis and scrotum are swollen. Scrotum is roughly the size of a plum. Skin:??Warm and dry. Sallow. Extremities:??No cyanosis or clubbing. Hard and tight pitting edema from the feet extending the lower flank. Neurological:??Alert.? Cranial nerves 2-12 are grossly intact. No gross focal deficits to casual conversation. Psychiatric:??Pleasant and cooperative with appropriate mood and affect. Objective Data Vital Signs Vital Signs: Vital Signs - 24 hr 02/28/23 19:37 02/28/23 20:00 02/28/23 23:28 Temperature 97.5 F L Pulse Rate 77 Respiratory Rate 20 Blood Pressure 116/66 113/71 Pulse Oximetry 99 Oxygen Delivery Room Air 03/01/23 03:51 03/01/23 08:00 03/01/23 13:48 Temperature 97.7 F 98.1 F Pulse Rate 90 97 Respiratory Rate 16 18 Blood Pressure 106/66 108/66 Pulse Oximetry 96 100 Oxygen Ja[place]
[2023-03-01] MEDS: HYDROmorphone HCL INJ (*CRX) 1 MG/ML SYR 1.5 MG IV PUSH ×2 (17:02→20:51)
[2023-03-01 17:06] LABS: Glucose Point of Care 130 mg/dl (65-105)
[2023-03-01 20:20] VITALS: BP 109/65; PULSE 95; RESP 17; TEMP 36.6; O2SAT 97
[2023-03-01] MEDS: GABAPENTIN 300 MG CAPSULE PO (20:50)
[2023-03-01 20:54] LABS: Glucose Point of Care 146 mg/dl (65-105)
[2023-03-01 23:24] VITALS: BP 107/66
[2023-03-02] MEDS: diphenhydrAMINE HCl CAP 25 MG CAPSULE PO (00:09)
[2023-03-02] MEDS: HYDROmorphone HCL INJ (*CRX) 1 MG/ML SYR 1.5 MG IV PUSH ×7 (00:09→23:08)
[2023-03-02] MEDS: ALBUMIN HUMAN 25% 25 GM/100 ML 100 ML IVPB ×2 (00:17→06:54)
[2023-03-02 05:28] VITALS: BP 111/74; PULSE 100; RESP 17; TEMP 36.5; O2SAT 100
[2023-03-02 06:01] LABS: Hematocrit 26.2 % (42.0-52.0); Hemoglobin 7.8 g/dL (14.0-18.0); Mean Corpuscular HGB Conc 29.8 g/dl (32-36); Mean Corpuscular Hemoglobin 26.5 pg (26-34); Mean Corpuscular Volume 89.1 fl (80-100); Mean Platelet Volume 10.8 fl (7.4-10.4); Platelet Count Result 104 k/mm3 (150-375); Red Blood Count 2.94 M/mm3 (4.6-6.20); Red Cell Distribution Width 17.1 % (11.5-14.5); White Blood Count 2.9 K/mm3 (4.5-10.0)
[2023-03-02 06:10] LABS: Alanine Aminotransferase 8 U/L (6-50); Albumin Level 5.1 g/dL (3.5-5.1); Alkaline Phosphatase 72 U/L (38-126); Anion Gap 11 mmol/L (8-16); Aspartate Amino Transferase 29 U/L (17-59); Bilirubin,Total 0.7 mg/dL (0.2-1.3); Blood Urea Nitrogen 40 mg/dL (9-20); Calcium 10.5 mg/dL (8.4-10.2); Carbon Dioxide 34 mmol/L (22-30); Chloride 95 mmol/L (98-107); Estimated CRCL calculation 43 ml/min; Estimated Glomerular Filt Rate 49; Glucose 139 mg/dL (65-110); Potassium 4.7 mmol/L (3.4-5.0); Sodium 140 mmol/L (137-145)
[2023-03-02 06:11] LABS: INR 1.1; Prothrombin Time 14.7 Seconds (11.1-14.7)
[2023-03-02] MEDS: oxyCODONE HCL (*CRX) 5 MG TAB IR 20 MG PO ×2 (06:53→14:14)
[2023-03-02 08:32] LABS: Glucose Point of Care 120 mg/dl (65-105)
[2023-03-02] MEDS: FUROSEMIDE INJ 100 MG/10 ML VIAL 80 MG IV PUSH ×2 (09:01→17:25)
[2023-03-02] MEDS: SPIRONOLACTONE 50 MG TABLET 100 MG PO ×2 (09:01→17:25)
[2023-03-02] MEDS: PANTOPRAZOLE 40 MG TABLET PO ×2 (09:01→20:55)
[2023-03-02] MEDS: POTASSIUM CHLORIDE 20 MEQ ER TABLET PO ×2 (09:01→17:24)
[2023-03-02] MEDS: PREGABALIN (*CRX) 75 MG CAPSULE PO (09:01)
[2023-03-02] MEDS: MIDODRINE HCL 2.5 MG TABLET 5 MG PO ×3 (09:01→17:24)
--- NOTE | 2023-03-02 11:38 | PM.IMPN ---
Progress Note: A&P Assessment and Plan (1) Anasarca: Code(s): R60.1 - Generalized edema Status: Acute Assessment and Plan: Improving (2) Cirrhosis of liver with ascites: Qualifiers: Hepatic cirrhosis type: unspecified hepatic cirrhosis Qualified Code(s): K74.60 - Unspecified cirrhosis of liver; R18.8 - Other ascites Code(s): K74.60 - Unspecified cirrhosis of liver; R18.8 - Other ascites Status: Chronic Assessment and Plan: Continues to drain from puncture site after paracentesis Not enough fluid for f/u paracentesis Consult GI (3) Chronic anemia: Code(s): D64.9 - Anemia, unspecified Status: Acute Assessment and Plan: stable (4) Diastolic congestive heart failure: Qualifiers: Heart failure chronicity: chronic Qualified Code(s): I50.32 - Chronic diastolic (congestive) heart failure Code(s): I50.30 - Unspecified diastolic (congestive) heart failure Status: Acute Assessment and Plan: Clinically stable (5) Type 2 diabetes mellitus: Qualifiers: Diabetes mellitus music publisher insulin use: without residential use Diabetes mellitus complication status: without complication Qualified Code(s): E11.9 - Type 2 diabetes mellitus without complications Code(s): E11.9 - Type 2 diabetes mellitus without complications Status: Acute Assessment and Plan: Stable (6) KAREN (acute kidney injury): Code(s): N17.9 - Acute kidney failure, unspecified Status: Acute Assessment and Plan: Creatinine stable Subjective Date/time seen: 03/02/23 11:38 Interval history: No overnight issues Review of Systems Cardiovascular: Cardiovascular: Denies chest pain Respiratory: Respiratory: Denies chest congestion, Denies cough and Denies wheezing Gastrointestinal: Gastrointestinal: Denies abdominal pain and Denies diarrhea Comments: distended, abdominal wall leaking Genitourinary: Comments: scrotal pain. decreased scrotal swelling Neurologic: Denies confusion Psychiatric: Psychiatric: Denies anxiety Exam Narrative: General:?Chronically ill-appearing male sitting up in bed in no acute distress. HEENT:?Wearing glasses. PERRL, EOMI. Sclera anicteric. Tacky mucous membranes. Neck:??Supple. Respiratory:?Lungs are clear to auscultation bilaterally. Cardiovascular:??Regular rate and rhythm with S1-S2. Gastrointestinal:??Abdomen is slightly firm and protuberant with shifting dullness. Mild tenderness to palpation throughout the abdomen which is not unusual for him. No guarding or rebound tenderness. Right mid quadrant and left mid quadrant has a colostomy bag which contains a small amount of peritoneal fluid that is draining out of the site from a recent paracentesis. Genitourinary: Penis and scrotum are swollen. Scrotum is roughly the size of a plum. Skin:??Warm and dry. Sallow. Extremities:??No cyanosis or clubbing. Hard and tight pitting edema from the feet extending the lower flank. Neurological:??Alert.? Cranial nerves 2-12 are grossly intact. No gross focal deficits to casual conversation. Psychiatric:??Pleasant and cooperative with appropriate mood and affect. Objective Data Vital Signs Vital Signs: Vital Signs - 24 hr 03/01/23 13:48 03/01/23 20:20 03/01/23 20:00 Temperature 98.1 F 97.9 F Pulse Rate 97 95 Respiratory Rate 18 17 Blood Pressure 108/66 109/65 Pulse Oximetry 100 97 Oxygen Delivery Room Air 03/01/23 23:24 03/02/23 05:28 03/02/23 08:00 Temperature 97.7 F Pulse Rate 100 Respiratory Rate 17 Blood Pressure 107/66 111/74 Pulse Oximetry 100 Oxygen Delivery Room Air Intake/Output Intake/Output: Intake & Output 02/27/23 02/28/23 03/01/23 03/02/23 23:59 23:59 23:59 23:59 Intake Total 1600 / 1600 2400 / 2400 1270 / 1270 890 / 890 Output Total 5200 / 5200 2115 / 2115 775 / 775 1675 / 1675 Balance -3600 / -3600 285 / 285 495 / 495 -
[2023-03-02 12:34] LABS: Glucose Point of Care 152 mg/dl (65-105)
[2023-03-02 14:14] VITALS: BP 107/67; PULSE 100; RESP 17; TEMP 36.8; O2SAT 98
--- NOTE | 2023-03-02 14:14 | PCNFU ---
Nutrition Follow-Up Complete: Potential for inadequate oral intake related to loss of appetite, early satiety as evidenced by patient report; weight loss -9%/3 months, partly related to ascites Goal: Adequate PO intake at least 75% meals and supplements - goal being met. Continue with same goal Pt current nutrition is Diabetic consistent carb diet. Intakes 60-100%. Nutrition recommendation: Glucerna BID for additional 220 kcal and 10 g protein each Last recorded weight is 71.5 kg. Down -19 lbs since admission from paracentesis Bowel Motility: Last BM recorded 02/27/23 Labs Reviewed:Hgb 7.8, Hct 26.2, BUN 40, Cre 1.5, Glu 152 Meds Noted: Albumin, Lasix, Zofran, Protonix, spironolactone Skin: Ascites Additional Notes: Intakes are good, pt had paracentesis and has been leaking fluid from incision. Continue with nutrition care plan, agree with orders. Monitoring intakes, weights, labs, supplement tolerance, plan of care Follow up in 7 days
[2023-03-02 14:25] VITALS: O2SAT 98
--- NOTE | 2023-03-02 16:01 | WPDGICN ---
Assessment and Plan Assessment and plan (1) Abdominal ascites: Code(s): R18.8 - Other ascites Status: Acute Assessment and Plan: treated with paracentesis as usual but now with persistent leak, topical dressing did not help we can attempt glue with tight dressing and topical cyanoacrylate adhesive or call surgery for possible stitches (2) Anasarca: Code(s): R60.1 - Generalized edema Status: Acute Assessment and Plan: treated, improved he is not a candidate for tips (3) Cirrhosis: Qualifiers: Ascites presence: with ascites Hepatic cirrhosis type: unspecified hepatic cirrhosis Qualified Code(s): K74.60 - Unspecified cirrhosis of liver; R18.8 - Other ascites Code(s): K74.60 - Unspecified cirrhosis of liver Status: Acute Assessment and Plan: he is seeing hepatology at [facility] end stage liver disease, hopefully he can be a candidate for liver transplant down the road (4) Diastolic congestive heart failure: Qualifiers: Heart failure chronicity: chronic Qualified Code(s): I50.32 - Chronic diastolic (congestive) heart failure Code(s): I50.30 - Unspecified diastolic (congestive) heart failure Status: Acute (5) Portal hypertensive gastropathy: Code(s): K76.6 - Portal hypertension; K31.89 - Other diseases of stomach and duodenum Status: Acute GI Consult Note Consult date/time: 03/02/23 16:01 Reason for consult: cirrhosis, ascites with leak post paracentesis HPI: Matt Worley II is a 53 year old male who is well known to our service because decompensated cirrhosis for over 2 years (combination of alcohol- denies any drink for at least 9 months- and probably autoimmune MEL as high as 1:1280 in the past).? He has had multiple hospitalizations for gastrointestinal bleeding and has required esophageal variceal banding on several occasions, last time about 1 month ago. He also has refractory ascites now on 160 mg lasix and 80 mg aldactone.?He used to require paracentesis every month or so but most recently as often as every 2-3 days (getting 5 Liters out). Finally he had been seen a compressor engineer in [place], liver transplant was discussed but his insurance will not pay for it and is financially not a possibility.? Likewise he has been told that he is not a candidate for TIPs.?This time admitted few days ago with anasarca and significant edema of scrotum, this has been treated with albumin, diuretics and paracentesis. Edema has improved but now he has persistent leak from paracentesis site (this happened once in the past but eventually resolved). Review of Systems Constitutional: Constitutional: Denies chills Eyes: Eyes: Denies blurry vision ENT: Reports Normal hearing present Cardiovascular: Cardiovascular: Denies chest pain Respiratory: Respiratory: Denies cough Gastrointestinal: Gastrointestinal: Reports abdominal pain Genitourinary: Comments: scrotal edema Musculoskeletal: Musculoskeletal: Denies neck pain Integumentary/Breasts: Skin/Breast: Denies rash Neurologic: Denies Abnormal speech present Psychiatric: Psychiatric: Denies confusion [facility] Past Medical History Medical History Arthritis C. difficile colitis Cerebrovascular accident (2004) Chronic anemia Cirrhosis of liver with ascites Diarrhea Diastolic congestive heart failure Esophageal varices Gastric ulcer Gastroesophageal reflux disease GI bleed Hyperglycemia Hypertension Kidney stone Leukemia In childhood. Pancreatic abnormality Pericardial effusion Noted on CT and echocardiogram in August 2020. No evidence of tamponade. Portal hypertensive gastropathy Noted on endoscopy on 03/23/[address] Duran. Prostate cancer Status post radiation seed implantation. Smoker Spontaneous bacterial peritonitis (04/2020) Tobacco dependence Type 2 diabetes mellitus Surgic
[2023-03-02 16:56] LABS: Glucose Point of Care 126 mg/dl (65-105)
[2023-03-02] MEDS: ONDANSETRON HCL ODT 4 MG TABLET PO (19:50)
[2023-03-02 20:08] VITALS: BP 142/77; PULSE 100; RESP 18; TEMP 37.1; O2SAT 96
[2023-03-02] MEDS: GABAPENTIN 300 MG CAPSULE PO (20:55)
[2023-03-02 22:11] LABS: Glucose Point of Care 180 mg/dl (65-105)
[2023-03-03 06:00] VITALS: BP 107/56; PULSE 101; RESP 18; TEMP 36.9; O2SAT 90
[2023-03-03] MEDS: HYDROmorphone HCL INJ (*CRX) 1 MG/ML SYR 1.5 MG IV PUSH ×5 (07:02→21:05)
[2023-03-03 08:13] LABS: Basophils Percent Auto 0.6 % (0.2-1.2); Eosinophils Absolute Auto 0.1 K/mm3 (0-0.3); Eosinophils Percent Auto 3.4 % (0-4.4); Hematocrit 24.4 % (42.0-52.0); Hemoglobin 7.4 g/dL (14.0-18.0); Immature Granulocyte Absolute 0.01 K/mm3 (0.00-0.031); Immature Granulocyte Percent A 0.3 % (0-0.5); Lymphocytes Absolute Auto 0.43 K/mm3 (0.9-3.2); Lymphocytes Percent Auto 13.2 % (18.3-44.2); Mean Corpuscular HGB Conc 30.3 g/dl (32-36); Mean Corpuscular Hemoglobin 26.3 pg (26-34); Mean Corpuscular Volume 86.8 fl (80-100); Mean Platelet Volume 10.7 fl (7.4-10.4); Monocytes Absolute Auto 0.5 K/mm3 (0.1-0.6); Monocytes Percent Auto 16.3 % (2.6-8.5); Neutrophils Absolute Auto 2.2 K/mm3 (1.3-6.7); Neutrophils Percent Auto 66.2 % (45.5-73.1); Platelet Count Result 100 k/mm3 (150-375); Red Blood Count 2.81 M/mm3 (4.6-6.20); Red Cell Distribution Width 16.9 % (11.5-14.5); White Blood Count 3.3 K/mm3 (4.5-10.0)
[2023-03-03 08:23] LABS: Alanine Aminotransferase 9 U/L (6-50); Albumin Level 4.4 g/dL (3.5-5.1); Alkaline Phosphatase 81 U/L (38-126); Anion Gap 9 mmol/L (8-16); Aspartate Amino Transferase 27 U/L (17-59); Bilirubin,Total 0.9 mg/dL (0.2-1.3); Blood Urea Nitrogen 47 mg/dL (9-20); Calcium 9.9 mg/dL (8.4-10.2); Carbon Dioxide 32 mmol/L (22-30); Chloride 92 mmol/L (98-107); Estimated CRCL calculation 39 ml/min; Estimated Glomerular Filt Rate 43; Glucose 136 mg/dL (65-110); Magnesium 1.7 mg/dL (1.6-2.3); Phosphorus 3.9 mg/dL (2.5-4.5); Potassium 4.5 mmol/L (3.4-5.0); Sodium 133 mmol/L (137-145)
[2023-03-03] MEDS: oxyCODONE HCL (*CRX) 5 MG TAB IR 20 MG PO ×3 (08:28→22:49)
[2023-03-03 08:56] LABS: Glucose Point of Care 139 mg/dl (65-105)
[2023-03-03] MEDS: MIDODRINE HCL 2.5 MG TABLET 5 MG PO ×3 (08:57→17:45)
[2023-03-03] MEDS: FUROSEMIDE INJ 100 MG/10 ML VIAL 80 MG IV PUSH (08:58)
[2023-03-03] MEDS: PREGABALIN (*CRX) 75 MG CAPSULE PO (08:58)
[2023-03-03] MEDS: SPIRONOLACTONE 50 MG TABLET 100 MG PO ×2 (08:58→17:45)
[2023-03-03] MEDS: PANTOPRAZOLE 40 MG TABLET PO ×2 (08:58→20:58)
[2023-03-03] MEDS: POTASSIUM CHLORIDE 20 MEQ ER TABLET PO ×2 (08:58→17:46)
--- NOTE | 2023-03-03 10:41 | PM.CNGS ---
Assessment and Plan Assessment and plan (1) Abdominal ascites: Code(s): R18.8 - Other ascites Status: Acute Assessment and Plan: Patient with end stage liver disease who sees hepatology at [facility] and requires paracentesis for his abdominal ascites about every other day. He has a persistent leak from the paracentesis site in the RLQ following his paracentesis 4 days ago. This is the second time he has had this issue. They have attempted pressure dressing and skin adhesive, but he continues to have a persistent leak. Discussed case with Dr. Valdez. Placing a suture will likely not stop the leak. Given he is not a candidate for TIPS and he does not have insurance coverage for a liver transplant, he will continue to have significant abdominal ascites requiring paracentesis until his ESLD is addressed. He may be a candidate for an indwelling peritoneal catheter, but this is not done at this facility. Would recommend following up with hepatology, who is also working on getting insurance coverage for a liver transplant, to discuss if he would be a candidate for a peritoneal catheter. (2) Anasarca: Code(s): R60.1 - Generalized edema Status: Acute (3) Cirrhosis of liver: Code(s): K74.60 - Unspecified cirrhosis of liver Status: Acute (4) Umbilical hernia: Qualifiers: Obstruction and gangrene presence: without obstruction or gangrene Qualified Code(s): K42.9 - Umbilical hernia without obstruction or gangrene Code(s): K42.9 - Umbilical hernia without obstruction or gangrene Status: Acute (5) Portal hypertensive gastropathy: Code(s): K76.6 - Portal hypertension; K31.89 - Other diseases of stomach and duodenum Status: Acute (6) Diastolic congestive heart failure: Qualifiers: Heart failure chronicity: chronic Qualified Code(s): I50.32 - Chronic diastolic (congestive) heart failure Code(s): I50.30 - Unspecified diastolic (congestive) heart failure Status: Acute Plan I have discussed the patient's case and plan of care with Dr. Valdez. History of Present Illness Consult details Consult date: 03/03/23 Reason for consult: other (Persistent leak following paracentesis) Requesting physician: Shon Duran MD Narrative: This is a 53-year-old man with decompensated cirrhosis and abdominal ascites, who our service has been asked to see in consultation due to a persistent leak following paracentesis. He requires a paracentesis as often as every 2-3 days and can get up to 5 liters out. He was admitted 9 days ago with anasarca and being treated for such with albumin, diuretics, and paracentesis. He underwent paracentesis on 02/27/23 and has had a persistent leak from this site in the right lower quadrant since. Staff has attempted a pressure dressing, skin adhesive, and utilizing an ostomy appliance. The leak has slowed some, but still has some drainage. The patient reports this happening one other time in the past and it eventually resolved spontaneously. At that time, they did attempt placing a suture in the ER and this did not help the leak. Our service was consulted for evaluation of possible suture placement for persistent leak following paracentesis. Review of Systems Review of Systems: All systems reviewed & are unremarkable except as noted in HPI and below PMFSH Past Medical History Medical History Arthritis C. difficile colitis Cerebrovascular accident (2004) Chronic anemia Cirrhosis of liver with ascites Diarrhea Diastolic congestive heart failure Esophageal varices Gastric ulcer Gastroesophageal reflux disease GI bleed Hyperglycemia Hypertension Kidney stone Leukemia In childhood. Pancreatic abnormality Pericardial effusion Noted on CT and echocardiogram in August 2020. No evidence of tamponade. Portal hypertensive gastropathy Noted on endoscopy on 03/23/[address] Johnson
--- NOTE | 2023-03-03 11:47 | PM.IMPN ---
Progress Note: A&P Assessment and Plan (1) Cirrhosis of liver with ascites: Qualifiers: Hepatic cirrhosis type: unspecified hepatic cirrhosis Qualified Code(s): K74.60 - Unspecified cirrhosis of liver; R18.8 - Other ascites Code(s): K74.60 - Unspecified cirrhosis of liver; R18.8 - Other ascites Status: Chronic Assessment and Plan: Patient with cirrhosis and CHF presents with complaints diffuse edema. Albumin dropped to 2.4 early in the hospital course. He was treated with albumin up until yesterday. Albumin has since been stopped. His albumin level normal. On 02/23: Paracentesis with removal of 4 L clear yellow fluid On 02/25: Paracentesis with removal of 4.2 L gio colored fluid On 02/28: No significant intraperitoneal fluid collection by ultrasound He was started on IV Lasix on admission. I/O's are inaccurate. Clinically, his fluid status appears to be better controlled. Patient continues to drain from a puncture site from the paracentesis despite having very little ascites. Instructed nursing to continue the Tegaderm and placed a pressure dressing over this. GI is consulted and appreciate their input. General surgery consulted appreciate their input. Will switch to oral Lasix tomorrow. Continue spironolactone. Consider metolazone. (2) Anasarca: Code(s): R60.1 - Generalized edema Status: Acute Assessment and Plan: As above (3) KAREN (acute kidney injury): Code(s): N17.9 - Acute kidney failure, unspecified Status: Acute Assessment and Plan: Patient has normal baseline renal function. Creatinine has been elevated over the past few days. Will hold Lasix IV. Change to oral home Lasix tomorrow. Continue to monitor. If creatinine climbs tomorrow, may need to hold diuretics for a few days. (4) Chronic anemia: Code(s): D64.9 - Anemia, unspecified Status: Acute Assessment and Plan: Baseline hemoglobin is anywhere from 9-12 range. Hemoglobin is 10.6 on admission and has trended downward 7.4. No evidence of acute blood loss. It should be noted that his white count and platelet count both are low as well consistent with pancytopenia probably related to his underlying cirrhosis. Continue to follow. Transfuse as necessary. (5) Type 2 diabetes mellitus: Qualifiers: Diabetes mellitus complication status: without complication Diabetes mellitus custodial insulin use: without watermaster use Qualified Code(s): E11.9 - Type 2 diabetes mellitus without complications Code(s): E11.9 - Type 2 diabetes mellitus without complications Status: Acute Assessment and Plan: A1c 4.9 in January. The patient's blood glucose was reviewed on 03/03 Glucose remains well controlled. Continue AccuCheks covering with sliding scale. Hypoglycemia protocol available as needed. Continue current medications. (6) Diastolic congestive heart failure: Qualifiers: Heart failure chronicity: chronic Qualified Code(s): I50.32 - Chronic diastolic (congestive) heart failure Code(s): I50.30 - Unspecified diastolic (congestive) heart failure Status: Acute Assessment and Plan: Chest x-ray was clear on admission. Echocardiogram from last year showing EF of 50-55% with pericardial effusion. Suspect patient has chronic diastolic CHF but no evidence of acute exacerbation Subjective Date/time seen: 03/03/23 11:47 Interval history: 53yo male with cirrhosis (presumed autoimmune), esophageal varices, gastric ulcers, pericardial effusion, pHTN, DM and dCHF who presented to the emergency department via EMS from home for evaluation of swelling. Patient states that he is on being considered for liver transplant but there are insurance issues that his dried fruit washer is working on. Patient does medically qualify for liver transplant. He is having bowel movements. Continues have leaking from where they performed a pa
[2023-03-03 13:05] VITALS: BP 108/64; PULSE 75; RESP 18; TEMP 37.2; O2SAT 98
[2023-03-03 13:13] LABS: Glucose Point of Care 156 mg/dl (65-105)
--- NOTE | 2023-03-03 14:03 | WPDGIPROGNO ---
Progress Note: A&P Assessment and Plan (1) Abdominal ascites: Code(s): R18.8 - Other ascites Status: Acute Assessment and Plan: persistent leak after paracentesis but seems that is slowing down did not find obvious puncture site and placing a suture will likely not stop the leak continue with pressure dressing and skin adhesive peritoneal catheter is not an option either because high risk of infection (2) Cirrhosis: Qualifiers: Ascites presence: with ascites Hepatic cirrhosis type: unspecified hepatic cirrhosis Qualified Code(s): K74.60 - Unspecified cirrhosis of liver; R18.8 - Other ascites Code(s): K74.60 - Unspecified cirrhosis of liver Status: Acute Assessment and Plan: needs follow-up with tutor coordinator at [facility] (3) Portal hypertension: Code(s): K76.6 - Portal hypertension Status: Acute (4) Pancytopenia: Code(s): D61.818 - Other pancytopenia Status: Acute Assessment and Plan: stable Subjective Date/time seen: 03/03/23 14:03 Interval history: still leaking but he thinks that is slowing down no other issues Review of Systems Review of Systems: All systems reviewed & are unremarkable except as noted in HPI and below Exam Const: General: comfortable, no acute distress and awake Orientation/consciousness: patient oriented x3 HENMT: Head: normocephalic and atraumatic Ears: hearing grossly normal bilaterally Eyes: General: appearance normal, both eyes and all related structures Pupils: Equal, round and reactive pupils present Neck: Neck: normal visual inspection and full ROM Resp: Effort & Inspection: no respiratory distress Auscultation: clear to auscultation bilaterally Cardio: Rate: regular rate Rhythm: regular rhythm GI: GI Palp: Yes Soft to palpation, Yes Tenderness to palpation present (GI) (diffusely tender), No Guarding due to palpation present (GI), Yes Hernia present (soft reducible umbilical hernia) and Yes Ascites present Auscultation: normal bowel sounds Rectal Exam: deferred Other: no obvious open wound, dressing in place Skin: Rashes: no rashes Neuro: General: moves all extremities and no focal motor deficits Speech: normal speech Motor exam (neuro): 5/5 motor strength present throughout Extrem: General: no edema Psych: Mental Status: mental status grossly normal Affect: normal affect Attitude: cooperative Insight: Good insight present (Psych) Judgement: Good judgement present (Psych) Objective Data Vital Signs Vital Signs: Vital Signs - 24 hr 03/02/23 14:14 03/02/23 14:25 03/02/23 20:08 Temperature 98.2 F 98.7 F Pulse Rate 100 100 Respiratory Rate 17 18 Blood Pressure 107/67 142/77 H Pulse Oximetry 98 98 96 Oxygen Delivery Room Air 03/02/23 20:00 03/03/23 06:00 Temperature 98.4 F Pulse Rate 101 H Respiratory Rate 18 Blood Pressure 107/56 L Pulse Oximetry 90 Oxygen Delivery Room Air Intake/Output Intake/Output: Intake & Output 02/28/23 03/01/23 03/02/23 03/03/23 23:59 23:59 23:59 23:59 Intake Total 2400 1270 3790 480 Output Total 2491.229.4103 Balance 285 841 -0471 480 Meds/Results Medications: Active Medications Generic Name Dose Route Start Last Admin Trade Name Freq PRN Reason Stop Dose Admin Dextrose 12.5 gm 02/22/23 18:07 Dextrose 50% 25 Gm/50 Ml Syringe IV PUSH PRN PRN Hypoglycemia Protocol Furosemide 80 mg 02/28/23 17:00 03/03/23 08:58 Furosemide Inj 100 Mg/10 Ml Vial IV PUSH 80 mg BID FORTINO Administration Gabapentin 300 mg 02/23/23 21:00 03/02/23 20:55 Gabapentin 300 Mg Capsule PO 300 mg HS FORTINO Administration Glucagon 1 mg 02/22/23 18:07 Glucagon For Inj 1 Mg Vial IM PRN PRN Hypoglycemia Protocol Glucose 15 gm 02/22/23 18:07 Glucose Oral Gel 15 Gm Of Glucse In 37.5 Gm Tube PO PRN PRN Hypoglycemia Protocol Hydrocortisone 1 applic 0
--- NOTE | 2023-03-03 15:34 | PC.NURSE ---
On 03/03/23, the student, [Mirza Soriano], provided care and completed [facility] documentation on this patient. I have reviewed the student's documentation and agree with the findings.
[2023-03-03 17:25] LABS: Glucose Point of Care 149 mg/dl (65-105)
[2023-03-03] MEDS: GABAPENTIN 300 MG CAPSULE PO (20:58)
[2023-03-03 21:06] LABS: Glucose Point of Care 168 mg/dl (65-105)
[2023-03-03] MEDS: ONDANSETRON HCL ODT 4 MG TABLET PO (21:15)
[2023-03-03 21:19] VITALS: BP 110/68; PULSE 95; RESP 18; TEMP 36.9; O2SAT 99
[2023-03-04] MEDS: diphenhydrAMINE HCl INJ 50 MG/ML VIAL 25 MG IV PUSH ×2 (00:51→21:08)
[2023-03-04 04:26] VITALS: BP 115/72; PULSE 86; RESP 18; TEMP 36.7; O2SAT 100
[2023-03-04 06:21] LABS: Basophils Percent Auto 0.4 % (0.2-1.2); Eosinophils Absolute Auto 0.1 K/mm3 (0-0.3); Eosinophils Percent Auto 4.4 % (0-4.4); Hematocrit 23.5 % (42.0-52.0); Immature Granulocyte Absolute 0.01 K/mm3 (0.00-0.031); Immature Granulocyte Percent A 0.4 % (0-0.5); Immature Platelet Fraction Pct 7.3 % (0.9-11.2); Lymphocytes Absolute Auto 0.44 K/mm3 (0.9-3.2); Lymphocytes Percent Auto 17.5 % (18.3-44.2); Mean Corpuscular HGB Conc 29.8 g/dl (32-36); Mean Corpuscular Hemoglobin 26.6 pg (26-34); Mean Corpuscular Volume 89.4 fl (80-100); Mean Platelet Volume 11.2 fl (7.4-10.4); Monocytes Absolute Auto 0.5 K/mm3 (0.1-0.6); Monocytes Percent Auto 19.1 % (2.6-8.5); Neutrophils Absolute Auto 1.5 K/mm3 (1.3-6.7); Neutrophils Percent Auto 58.2 % (45.5-73.1); Platelet Count Result 107 k/mm3 (150-375); Red Blood Count 2.63 M/mm3 (4.6-6.20); White Blood Count 2.5 K/mm3 (4.5-10.0)
[2023-03-04 06:37] LABS: Albumin Level 4.2 g/dL (3.5-5.1); Anion Gap 9 mmol/L (8-16); Blood Urea Nitrogen 50 mg/dL (9-20); Calcium 9.4 mg/dL (8.4-10.2); Carbon Dioxide 31 mmol/L (22-30); Chloride 95 mmol/L (98-107); Estimated CRCL calculation 41 ml/min; Estimated Glomerular Filt Rate 46; Glucose 123 mg/dL (65-110); Magnesium 1.9 mg/dL (1.6-2.3); Phosphorus 4.4 mg/dL (2.5-4.5); Sodium 135 mmol/L (137-145)
[2023-03-04 06:48] LABS: Anisocytosis 1+ (NORMAL); Hypochromasia 1+ (NORMAL); Platelet Estimate Decreased (Adequate); Schistocytes None Seen (NORMAL)
[2023-03-04 07:54] LABS: Glucose Point of Care 115 mg/dl (65-105)
[2023-03-04] MEDS: PANTOPRAZOLE 40 MG TABLET PO ×2 (08:08→20:20)
[2023-03-04] MEDS: FUROSEMIDE 40 MG TABLET 80 MG PO ×2 (08:08→16:44)
[2023-03-04] MEDS: PREGABALIN (*CRX) 75 MG CAPSULE PO (08:08)
[2023-03-04] MEDS: SPIRONOLACTONE 50 MG TABLET 100 MG PO ×2 (08:08→16:44)
[2023-03-04] MEDS: MIDODRINE HCL 2.5 MG TABLET 5 MG PO ×3 (08:08→16:44)
[2023-03-04] MEDS: HYDROmorphone HCL INJ (*CRX) 1 MG/ML SYR 1.5 MG IV PUSH ×4 (08:09→18:54)
[2023-03-04] MEDS: POTASSIUM CHLORIDE 20 MEQ ER TABLET PO ×2 (08:09→16:45)
--- NOTE | 2023-03-04 08:24 | PM.IMPN ---
Progress Note: A&P Assessment and Plan (1) Cirrhosis of liver with ascites: Qualifiers: Hepatic cirrhosis type: unspecified hepatic cirrhosis Qualified Code(s): K74.60 - Unspecified cirrhosis of liver; R18.8 - Other ascites Code(s): K74.60 - Unspecified cirrhosis of liver; R18.8 - Other ascites Status: Chronic Assessment and Plan: Patient with cirrhosis and CHF presents with complaints diffuse edema. Albumin dropped to 2.4 early in the hospital course. He was treated with albumin up until yesterday. Albumin has since been stopped. His albumin level normal. On 02/23: Paracentesis with removal of 4 L clear yellow fluid On 02/25: Paracentesis with removal of 4.2 L gio colored fluid On 02/28: No significant intraperitoneal fluid collection by ultrasound He was started on IV Lasix on admission. I/O's are inaccurate. Clinically, his fluid status appears to be better controlled. Patient continues to drain from a puncture site from the paracentesis despite having very little ascites. Instructed nursing to continue the Tegaderm and placed a pressure dressing over this. GI is consulted and appreciate their input. General surgery consulted appreciate their input. Will switch to oral Lasix tomorrow. Continue spironolactone. Consider metolazone. (2) Anasarca: Code(s): R60.1 - Generalized edema Status: Acute Assessment and Plan: As above (3) KAREN (acute kidney injury): Code(s): N17.9 - Acute kidney failure, unspecified Status: Acute Assessment and Plan: Patient has normal baseline renal function. Creatinine has been elevated over the past few days. Will hold Lasix IV. Change to oral home Lasix 03/04 (4) Chronic anemia: Code(s): D64.9 - Anemia, unspecified Status: Acute Assessment and Plan: Baseline hemoglobin is anywhere from 9-12 range. Hemoglobin is 10.6 on admission and has trended downward 7.4. No evidence of acute blood loss. It should be noted that his white count and platelet count both are low as well consistent with pancytopenia probably related to his underlying cirrhosis. Continue to follow. Transfuse as necessary. (5) Type 2 diabetes mellitus: Qualifiers: Diabetes mellitus complication status: without complication Diabetes mellitus intermodal customer service insulin use: without intermodal customer service use Qualified Code(s): E11.9 - Type 2 diabetes mellitus without complications Code(s): E11.9 - Type 2 diabetes mellitus without complications Status: Acute Assessment and Plan: A1c 4.9 in January. The patient's blood glucose was reviewed on 03/04 Glucose remains well controlled. Continue AccuCheks covering with sliding scale. Hypoglycemia protocol available as needed. Continue current medications. (6) Diastolic congestive heart failure: Qualifiers: Heart failure chronicity: chronic Qualified Code(s): I50.32 - Chronic diastolic (congestive) heart failure Code(s): I50.30 - Unspecified diastolic (congestive) heart failure Status: Acute Assessment and Plan: Chest x-ray was clear on admission. Echocardiogram from last year showing EF of 50-55% with pericardial effusion. Suspect patient has chronic diastolic CHF but no evidence of acute exacerbation Plan DVT prophylaxis with SCDs GI prophylaxis not indicated Code status full code Subjective Date/time seen: 03/04/23 08:24 Interval history: 53yo male with cirrhosis (presumed autoimmune), esophageal varices, gastric ulcers, pericardial effusion, pHTN, DM and dCHF who presented to the emergency department via EMS from home for evaluation of swelling. No overnight events noted. No chest pain or shortness of breath. No nausea, vomiting or diarrhea. No fevers or chills. Abdominal pain uncontrolled. Review of Systems Review of Systems: 12 point review of systems was assessed and was negative except as noted in the HPI
[2023-03-04] MEDS: oxyCODONE HCL (*CRX) 5 MG TAB IR 20 MG PO ×2 (10:22→17:53)
[2023-03-04 11:53] LABS: Glucose Point of Care 171 mg/dl (65-105)
[2023-03-04 13:56] VITALS: BP 120/76; PULSE 86; RESP 18; TEMP 36.4; O2SAT 100
[2023-03-04] MEDS: LIDOCAINE/PRILOCAINE CREAM 2.5-2.5% TUBE 1 EACH TOPICAL (15:38)
--- NOTE | 2023-03-04 15:40 | WPDGIPROGNO ---
Progress Note: A&P Assessment and Plan (1) Abdominal ascites: Code(s): R18.8 - Other ascites Status: Acute Assessment and Plan: leak after paracentesis has improved, continue with pressure dressing and skin adhesive probably home tomorrow did not find obvious puncture site and placing a suture will likely not stop the leak peritoneal catheter is not an option either because high risk of infection on diuretics- will need paracentesis as outpatient and also monitor renal function while he is on aldactone and lasix (2) Cirrhosis: Qualifiers: Ascites presence: with ascites Hepatic cirrhosis type: unspecified hepatic cirrhosis Qualified Code(s): K74.60 - Unspecified cirrhosis of liver; R18.8 - Other ascites Code(s): K74.60 - Unspecified cirrhosis of liver Status: Acute Assessment and Plan: needs follow-up with firer marine at [facility] ideally will need to be on liver transplant list (3) Portal hypertension: Code(s): K76.6 - Portal hypertension Status: Acute (4) Pancytopenia: Code(s): D61.818 - Other pancytopenia Status: Acute Assessment and Plan: chronic no overt gib, noted hgb 7- monitor Subjective Date/time seen: 03/04/23 15:40 Interval history: decrease leaking and does not have bag anymore, no new issues Review of Systems Review of Systems: All systems reviewed & are unremarkable except as noted in HPI and below Exam Const: General: comfortable, no acute distress and awake Orientation/consciousness: patient oriented x3 Other: chronically ill appearing HENMT: Head: normocephalic and atraumatic Ears: hearing grossly normal bilaterally Eyes: General: appearance normal, both eyes and all related structures Pupils: Equal, round and reactive pupils present Neck: Neck: normal visual inspection and full ROM Resp: Effort & Inspection: no respiratory distress Auscultation: clear to auscultation bilaterally Cardio: Rate: regular rate Rhythm: regular rhythm GI: GI Palp: Yes Soft to palpation, Yes Tenderness to palpation present (GI) (diffusely tender), No Guarding due to palpation present (GI), Yes Hernia present (soft reducible umbilical hernia) and Yes Ascites present Auscultation: normal bowel sounds Rectal Exam: deferred Other: no obvious open wound, macerated skin near previous paracentesis site Skin: Rashes: no rashes Neuro: General: moves all extremities and no focal motor deficits Speech: normal speech Motor exam (neuro): 5/5 motor strength present throughout Extrem: General: pedal edema (trace leg edema) Psych: Mental Status: mental status grossly normal Affect: normal affect Attitude: cooperative Insight: Good insight present (Psych) Judgement: Good judgement present (Psych) Objective Data Vital Signs Vital Signs: Vital Signs - 24 hr 03/03/23 15:57 03/03/23 21:19 03/04/23 04:26 Temperature 98.4 F 98.0 F Pulse Rate 95 86 Respiratory Rate 18 18 Blood Pressure 110/68 115/72 Pulse Oximetry 99 100 Oxygen Delivery Room Air 03/04/23 08:00 03/04/23 13:56 Temperature 97.5 F L Pulse Rate 86 Respiratory Rate 18 Blood Pressure 120/76 Pulse Oximetry 100 Oxygen Delivery Room Air Intake/Output Intake/Output: Intake & Output 03/01/23 03/02/23 03/03/23 03/04/23 23:59 23:59 23:59 23:59 Intake Total 1270 3790 720 3320 Output Total 775 4935 Balance 495 -2165 414 9877 Meds/Results Medications: Active Medications Generic Name Dose Route Start Last Admin Trade Name Freq PRN Reason Stop Dose Admin Dextrose 12.5 gm 02/22/23 18:07 Dextrose 50% 25 Gm/50 Ml Syringe IV PUSH PRN PRN Hypoglycemia Protocol Furosemide 80 mg 03/04/23 09:00 03/04/23 08:08 Furosemide 40 Mg Tablet PO 80 mg BID FORTINO Administration Gabapentin 300 mg 02/23/23 21:00 03/03/23 20:58 Gabapentin 300 Mg Capsule PO 300 mg HS FORTINO Administration Glucagon 1 m
[2023-03-04 16:47] LABS: Glucose Point of Care 168 mg/dl (65-105)
[2023-03-04 20:00] VITALS: PULSE 88; RESP 19; O2SAT 98
[2023-03-04 20:12] VITALS: BP 116/69; PULSE 90; RESP 18; TEMP 36.8; O2SAT 97
[2023-03-04] MEDS: GABAPENTIN 300 MG CAPSULE PO (20:20)
[2023-03-04 21:11] LABS: Glucose Point of Care 172 mg/dl (65-105)
[2023-03-05 06:00] VITALS: BP 119/70; PULSE 91; RESP 18; TEMP 36.9; O2SAT 93
[2023-03-05 06:44] LABS: Basophils Percent Auto 0.3 % (0.2-1.2); Eosinophils Absolute Auto 0.2 K/mm3 (0-0.3); Eosinophils Percent Auto 4.5 % (0-4.4); Hematocrit 25.3 % (42.0-52.0); Hemoglobin 7.6 g/dL (14.0-18.0); Immature Granulocyte Absolute 0.02 K/mm3 (0.00-0.031); Immature Granulocyte Percent A 0.6 % (0-0.5); Immature Platelet Fraction Pct 8.4 % (0.9-11.2); Lymphocytes Percent Auto 14.9 % (18.3-44.2); Mean Corpuscular Hemoglobin 26.2 pg (26-34); Mean Corpuscular Volume 87.2 fl (80-100); Mean Platelet Volume 10.9 fl (7.4-10.4); Monocytes Absolute Auto 0.5 K/mm3 (0.1-0.6); Monocytes Percent Auto 16.1 % (2.6-8.5); Neutrophils Absolute Auto 2.1 K/mm3 (1.3-6.7); Neutrophils Percent Auto 63.6 % (45.5-73.1); Platelet Count Result 114 k/mm3 (150-375); Red Cell Distribution Width 17.2 % (11.5-14.5); White Blood Count 3.4 K/mm3 (4.5-10.0)
[2023-03-05 06:52] LABS: Alanine Aminotransferase 9 U/L (6-50); Albumin Level 4.4 g/dL (3.5-5.1); Alkaline Phosphatase 85 U/L (38-126); Anion Gap 10 mmol/L (8-16); Aspartate Amino Transferase 27 U/L (17-59); Bilirubin,Total 0.8 mg/dL (0.2-1.3); Blood Urea Nitrogen 47 mg/dL (9-20); Calcium 9.7 mg/dL (8.4-10.2); Carbon Dioxide 31 mmol/L (22-30); Chloride 96 mmol/L (98-107); Estimated CRCL calculation 41 ml/min; Estimated Glomerular Filt Rate 46; Glucose 116 mg/dL (65-110); Potassium 4.1 mmol/L (3.4-5.0); Sodium 137 mmol/L (137-145)
[2023-03-05 07:46] LABS: Glucose Point of Care 101 mg/dl (65-105)
[2023-03-05 08:01] VITALS: BP 110/71
[2023-03-05] MEDS: POTASSIUM CHLORIDE 20 MEQ ER TABLET PO (08:02)
[2023-03-05] MEDS: FUROSEMIDE 40 MG TABLET 80 MG PO (08:02)
[2023-03-05] MEDS: MIDODRINE HCL 2.5 MG TABLET 5 MG PO ×2 (08:02→12:27)
[2023-03-05] MEDS: PREGABALIN (*CRX) 75 MG CAPSULE PO (08:02)
[2023-03-05] MEDS: oxyCODONE HCL (*CRX) 5 MG TAB IR 20 MG PO (08:03)
[2023-03-05] MEDS: PANTOPRAZOLE 40 MG TABLET PO (08:04)
[2023-03-05] MEDS: SPIRONOLACTONE 50 MG TABLET 100 MG PO (08:04)
[2023-03-05] MEDS: HYDROmorphone HCL INJ (*CRX) 1 MG/ML SYR 1.5 MG IV PUSH (10:15)
--- NOTE | 2023-03-05 11:14 | WPDGIPROGNO ---
Progress Note: A&P Assessment and Plan (1) Abdominal ascites: Code(s): R18.8 - Other ascites Status: Acute Assessment and Plan: minimal leaking now, he can go home with pressure dressing and skin adhesive peritoneal catheter is not an option because high risk of infection on diuretics- will need paracentesis as outpatient and also monitor renal function while he is on aldactone and lasix (2) Cirrhosis: Qualifiers: Ascites presence: with ascites Hepatic cirrhosis type: unspecified hepatic cirrhosis Qualified Code(s): K74.60 - Unspecified cirrhosis of liver; R18.8 - Other ascites Code(s): K74.60 - Unspecified cirrhosis of liver Status: Acute Assessment and Plan: needs follow-up with automatic lump making machine tender at [facility] ideally will need to be on liver transplant list (3) Portal hypertension: Code(s): K76.6 - Portal hypertension Status: Acute (4) Pancytopenia: Code(s): D61.818 - Other pancytopenia Status: Acute Assessment and Plan: chronic no overt gib Subjective Date/time seen: 03/05/23 11:14 Interval history: he is comfortable, less leaking hoping to go home Review of Systems Review of Systems: All systems reviewed & are unremarkable except as noted in HPI and below Exam Const: General: comfortable, no acute distress and awake Orientation/consciousness: patient oriented x3 Other: chronically ill appearing HENMT: Head: normocephalic and atraumatic Ears: hearing grossly normal bilaterally Eyes: General: appearance normal, both eyes and all related structures Neck: Neck: normal visual inspection and full ROM Resp: Effort & Inspection: no respiratory distress Auscultation: clear to auscultation bilaterally Cardio: Rate: regular rate Rhythm: regular rhythm GI: GI Palp: Yes Soft to palpation, Yes Tenderness to palpation present (GI) (diffusely tender), No Guarding due to palpation present (GI), Yes Hernia present (soft reducible umbilical hernia) and Yes Ascites present Auscultation: normal bowel sounds Other: no obvious open wound, macerated skin near previous paracentesis site Skin: Rashes: no rashes Neuro: General: moves all extremities and no focal motor deficits Speech: normal speech Motor exam (neuro): 5/5 motor strength present throughout Extrem: General: pedal edema (trace leg edema) Psych: Mental Status: mental status grossly normal Affect: normal affect Attitude: cooperative Insight: Good insight present (Psych) Judgement: Good judgement present (Psych) Objective Data Vital Signs Vital Signs: Vital Signs - 24 hr 03/04/23 13:56 03/04/23 20:12 03/04/23 20:00 Temperature 97.5 F L 98.3 F Pulse Rate 86 90 88 Respiratory Rate 18 18 19 Blood Pressure 120/76 116/69 Pulse Oximetry 100 97 98 Oxygen Delivery Room Air 03/05/23 06:00 03/05/23 08:01 Temperature 98.5 F Pulse Rate 91 Respiratory Rate 18 Blood Pressure 119/70 110/71 Pulse Oximetry 93 Oxygen Delivery Intake/Output Intake/Output: Intake & Output 03/02/23 03/03/23 03/04/23 03/05/23 23:59 23:59 23:59 23:59 Intake Total 3790 720 3560 300 Output Total 4935 Balance -7793 279 3223 300 Meds/Results Medications: Active Medications Generic Name Dose Route Start Last Admin Trade Name Freq PRN Reason Stop Dose Admin Dextrose 12.5 gm 02/22/23 18:07 Dextrose 50% 25 Gm/50 Ml Syringe IV PUSH PRN PRN Hypoglycemia Protocol Furosemide 80 mg 03/04/23 09:00 03/05/23 08:02 Furosemide 40 Mg Tablet PO 80 mg BID FORTINO Administration Gabapentin 300 mg 02/23/23 21:00 03/04/23 20:20 Gabapentin 300 Mg Capsule PO 300 mg HS FORTINO Administration Glucagon 1 mg 02/22/23 18:07 Glucagon For Inj 1 Mg Vial IM PRN PRN Hypoglycemia Protocol Glucose 15 gm 02/22/23 18:07 Glucose Oral Gel 15 Gm Of Glucse In 37.5 Gm Tube PO PRN PRN Hypoglycemia Protocol
[2023-03-05 12:02] LABS: Glucose Point of Care 138 mg/dl (65-105)
--- NOTE | 2023-03-05 12:26 | PM.DS ---
DS: Admitting Diagnosis Discharge Date 03/05/23 Admitting Diagnosis Leg swelling DS: Discharge Diagnosis Discharge Diagnosis (1) Cirrhosis of liver with ascites: Qualifiers: Hepatic cirrhosis type: unspecified hepatic cirrhosis Qualified Code(s): K74.60 - Unspecified cirrhosis of liver; R18.8 - Other ascites Code(s): K74.60 - Unspecified cirrhosis of liver; R18.8 - Other ascites Status: Chronic Assessment and Plan: Patient with cirrhosis and CHF presents with complaints diffuse edema. Albumin dropped to 2.4 early in the hospital course. He was treated with albumin up until yesterday. Albumin has since been stopped. His albumin level normal. On 02/23: Paracentesis with removal of 4 L clear yellow fluid On 02/25: Paracentesis with removal of 4.2 L gio colored fluid On 02/28: No significant intraperitoneal fluid collection by ultrasound He was started on IV Lasix on admission. I/O's are inaccurate. Clinically, his fluid status appears to be better controlled. Patient continues to drain from a puncture site from the paracentesis despite having very little ascites. Instructed nursing to continue the Tegaderm and placed a pressure dressing over this. GI is consulted and appreciate their input. General surgery consulted appreciate their input. Will switch to oral Lasix tomorrow. Continue spironolactone. Consider metolazone. (2) Anasarca: Code(s): R60.1 - Generalized edema Status: Acute Assessment and Plan: As above (3) KAREN (acute kidney injury): Code(s): N17.9 - Acute kidney failure, unspecified Status: Acute Assessment and Plan: Patient has normal baseline renal function. Creatinine has been elevated over the past few days. Will hold Lasix IV. Change to oral home Lasix 03/04 (4) Chronic anemia: Code(s): D64.9 - Anemia, unspecified Status: Acute Assessment and Plan: Baseline hemoglobin is anywhere from 9-12 range. Hemoglobin is 10.6 on admission and has trended downward 7.4. No evidence of acute blood loss. It should be noted that his white count and platelet count both are low as well consistent with pancytopenia probably related to his underlying cirrhosis. Continue to follow. Transfuse as necessary. (5) Type 2 diabetes mellitus: Qualifiers: Diabetes mellitus detention insulin use: without remote computer terminal operator use Diabetes mellitus complication status: without complication Qualified Code(s): E11.9 - Type 2 diabetes mellitus without complications Code(s): E11.9 - Type 2 diabetes mellitus without complications Status: Acute Assessment and Plan: A1c 4.9 in January. The patient's blood glucose was reviewed on 03/04 Glucose remains well controlled. Continue AccuCheks covering with sliding scale. Hypoglycemia protocol available as needed. Continue current medications. (6) Diastolic congestive heart failure: Qualifiers: Heart failure chronicity: chronic Qualified Code(s): I50.32 - Chronic diastolic (congestive) heart failure Code(s): I50.30 - Unspecified diastolic (congestive) heart failure Status: Acute Assessment and Plan: Chest x-ray was clear on admission. Echocardiogram from last year showing EF of 50-55% with pericardial effusion. Suspect patient has chronic diastolic CHF but no evidence of acute exacerbation Plan DVT prophylaxis with SCDs GI prophylaxis not indicated Code status full code DS: Summary Hospital Course Hospital Course: 53yo male with cirrhosis (presumed autoimmune), esophageal varices, gastric ulcers, pericardial effusion, pHTN, DM and dCHF who presented to the emergency department via EMS from home for evaluation of swelling. Patient with cirrhosis and CHF presents with complaints diffuse edema.? Albumin dropped to 2.4 early in the hospital course.? He was treated with albumin up until yesterday.? Albumin has since been stopped.? His a
== END 2023-03-05 13:45 | disposition hospice, home (50) ==
LOC: ANHED 16:12 → ANH2MED 18:46
PROVIDERS: General Practice; Hospitalist; Internal Medicine; Admitting Provider Internal Medicine; Emergency Provider Preventive Medicine Aerospace Medicine; PCP Hospitalist; Visit Provider Student in an Organized Health Care Education/Training Program
DX: K74.3 Primary biliary cirrhosis (principal); D61.818 Other pancytopenia; N17.9 Acute kidney failure, unspecified; K76.6 Portal hypertension; E87.1 Hypo-osmolality and hyponatremia; K72.10 Chronic hepatic failure without coma; I85.10 Secondary esophageal varices without bleeding; R18.8 Other ascites; N50.82 Scrotal pain; K25.9 Gastric ulcer, unspecified as acute or chronic, without hemorrhage or perforation; I50.32 Chronic diastolic (congestive) heart failure; I11.0 Hypertensive heart disease with heart failure; D64.9 Anemia, unspecified; K21.9 Gastro-esophageal reflux disease without esophagitis; K42.9 Umbilical hernia without obstruction or gangrene; E11.9 Type 2 diabetes mellitus without complications; M19.90 Unspecified osteoarthritis, unspecified site; Z86.73 Personal history of transient ischemic attack (TIA), and cerebral infarction without residual deficits; Z87.442 Personal history of urinary calculi; Z85.46 Personal history of malignant neoplasm of prostate; Z90.49 Acquired absence of other specified parts of digestive tract; Z87.891 Personal history of nicotine dependence; Z51.5 Encounter for palliative care
CPT/HCPCS: 36415; 49083; 71046; 76705; 80048; 80053; 80069; 80076; 82948; 83735; 84100; 85025; 85027; 85055; 85610; 93970; 96365; 96366; 96374; 96375; 96376; 99285; A9270; G0378; G0379; J1170; J1200; J1815; J1940; J2270; P9047

== ENCOUNTER 2023-03-15 11:48 | Emergency (ER) | payer OTHER, SELFPAY ==
--- NOTE | ~2023-03-15 | US_ITS ---
EXAMINATION: US paracentesis abd w/image DATE: 03/15/2023 14:01 INDICATION: Ascites. TECHNIQUE: The procedure and its risks and benefits were discussed with the patient. Potential risks discussed included bleeding and infection. The skin was prepped and draped in sterile fashion. 1% lid ocaine was used for local anesthesia. Under ultrasound guidance, a 5 Fr catheter with trochar was adv anced into the ascites in the right lower quadrant. Fluid was aspirated into vacuum bottles. The cath eter was removed, and a dressing was applied. There were no immediate complications. FINDINGS: Ultrasound images demonstrate ascites and the catheter within the fluid. IMPRESSION: 1. Successful ultrasound-guided paracentesis yielding 5000 mL of clear yellow fluid. Reviewed, dictated and finalized at location A. IMPRESSION: 1. Successful ultrasound-guided paracentesis yielding 5000 mL of clear yellow f luid.
[2023-03-15 11:58] VITALS: BP 152/67; PULSE 91; RESP 18; TEMP 36.7; O2SAT 100
--- NOTE | 2023-03-15 12:25 | ED.GENADULT ---
HPI - General Adult General Chief complaint: Urogenital-Male Stated complaint: Testicular Pain Time Seen by Provider: 03/15/23 12:25 Source: patient History of Present Illness HPI narrative: 53 years old white male came to the emergency room with large ascites and swelling penis. Last paracentesis 1 week ago. He denies any fever, chills, nausea, vomiting. Related Data Home Medications Medication Instructions Recorded Confirmed potassium chloride 20 mEq 20 meq PO BID 04/11/22 02/22/23 tablet,extended release(part/cryst) ondansetron 4 mg disintegrating 4 mg PO Q4H PRN Nausea 07/16/22 02/22/23 tablet furosemide 40 mg tablet 80 mg PO BID 08/25/22 02/22/23 gabapentin 300 mg capsule 300 mg PO HS 01/21/23 02/22/23 insulin lispro protamine-lispro 5 unit subcut BID 01/21/23 02/22/23 100 unit/mL (75-25) subcutaneous pen pregabalin 75 mg capsule 75 mg PO DAILY 01/21/23 02/22/23 Allergies Allergy/AdvReac Type Severity Reaction Status Date / Time ceftriaxone AdvReac Itching Verified 02/22/23 20:41 ciprofloxacin AdvReac Itching Verified 02/22/23 20:41 Review of Systems Review of Systems: All systems reviewed & are unremarkable except as noted in HPI and below PMFSH Past Medical History Medical History Arthritis C. difficile colitis Cerebrovascular accident (2004) Chronic anemia Cirrhosis of liver with ascites Diarrhea Diastolic congestive heart failure Esophageal varices Gastric ulcer Gastroesophageal reflux disease GI bleed Hyperglycemia Hypertension Kidney stone Leukemia In childhood. Pancreatic abnormality Pericardial effusion Noted on CT and echocardiogram in August 2020. No evidence of tamponade. Portal hypertensive gastropathy Noted on endoscopy on 03/23/[address] Duran. Prostate cancer Status post radiation seed implantation. Smoker Spontaneous bacterial peritonitis (04/2020) Tobacco dependence Type 2 diabetes mellitus Surgical History Surgical History History of appendectomy History of cholecystectomy History of cystoscopy History of inguinal hernia repair History of lithotripsy History of repair of right rotator cuff Family History Family History Mother Breast cancer Father Acute myocardial infarction Heart disease Hypertension Other Diabetes mellitus Maternal Uncle Sibling Family history of malignant neoplasm Social History Social History Social History: Surrogate decision maker: Myra Worley () or Marnie Washington (aunt). Code status: Full code Smoking packs per day: 0.5 Smoking cigarettes per day: 10.0 Years smoked: 35 Smoking pack-years: 17.50 Smoking status: Former smoker Tobacco type: cigarettes Second hand tobacco smoke exposure: No Alcohol intake: former Drinks per week: 0 Alcohol use details: Former beer drinker. Substance use: never Substance use type: does not use Other substance usage details: DECEMBER 16 2022 LAST DRINK- BEER Lack of Transportation: No Lack of Food: Never True Current Housing: I Have Housing Concerned About Future Housing: No Difficulty Paying Gas/Electric Bills: No Difficulty Paying for Meds: No Currently Unemployed: No Education: Bachelor's Degree Difficulty w/ Childcare or Family Care: No Living arrangements: with family Additional living arrangements comments: Resides in [place] with his and son. Additional occupation/education comments: On disability. Spiritual care concerns: No Agree to blood products: Yes Exam Narrative: General appearance: Well-developed, well-nourished Skin: Normal color Head: Normocephalic, nontraumatic Eyes: Clear conjunctiva ENT: Oropharynx normal, ears normal, nose normal Neck: Supple, nontender Chest and
[2023-03-15 13:07] LABS: Basophils Percent Auto 0.6 % (0.2-1.2); Eosinophils Absolute Auto 0.1 K/mm3 (0-0.3); Eosinophils Percent Auto 1.2 % (0-4.4); Hematocrit 31.9 % (42.0-52.0); Hemoglobin 9.1 g/dL (14.0-18.0); Immature Granulocyte Absolute 0.02 K/mm3 (0.00-0.031); Immature Granulocyte Percent A 0.4 % (0-0.5); Lymphocytes Absolute Auto 0.58 K/mm3 (0.9-3.2); Lymphocytes Percent Auto 11.9 % (18.3-44.2); Mean Corpuscular HGB Conc 28.5 g/dl (32-36); Mean Corpuscular Hemoglobin 26.2 pg (26-34); Mean Corpuscular Volume 91.9 fl (80-100); Mean Platelet Volume 11.3 fl (7.4-10.4); Monocytes Absolute Auto 0.7 K/mm3 (0.1-0.6); Monocytes Percent Auto 13.5 % (2.6-8.5); Neutrophils Absolute Auto 3.5 K/mm3 (1.3-6.7); Neutrophils Percent Auto 72.4 % (45.5-73.1); Platelet Count Result 165 k/mm3 (150-375); Red Blood Count 3.47 M/mm3 (4.6-6.20); Red Cell Distribution Width 17.3 % (11.5-14.5); White Blood Count 4.9 K/mm3 (4.5-10.0)
--- NOTE | 2023-03-15 13:15 | PC.NURSE ---
Ice chips given with permission from Dr. Billingsley
[2023-03-15 13:18] LABS: Alanine Aminotransferase 10 U/L (6-50); Albumin Level 3.6 g/dL (3.5-5.1); Alkaline Phosphatase 155 U/L (38-126); Anion Gap 6 mmol/L (8-16); Aspartate Amino Transferase 31 U/L (17-59); Bilirubin,Total 0.8 mg/dL (0.2-1.3); Blood Urea Nitrogen 18 mg/dL (9-20); Calcium 8.3 mg/dL (8.4-10.2); Carbon Dioxide 23 mmol/L (22-30); Chloride 107 mmol/L (98-107); Estimated CRCL calculation 73 ml/min; Estimated Glomerular Filt Rate > 60; Glucose 138 mg/dL (65-110); INR 1.1; Potassium 4.2 mmol/L (3.4-5.0); Prothrombin Time 14.3 Seconds (11.1-14.7); Sodium 136 mmol/L (137-145)
[2023-03-15 13:22] LABS: Ammonia < 9 umol/L (9-30)
[2023-03-15 14:00] VITALS: BP 134/85; PULSE 90; RESP 18; TEMP 36.7; O2SAT 100
[2023-03-15 14:30] VITALS: BP 129/90; PULSE 93; RESP 18; O2SAT 100
== END 2023-03-15 15:10 | disposition home or self-care (01) ==
PROVIDERS: Emergency Provider Emergency Medicine; PCP Hospitalist
DX: K74.60 Unspecified cirrhosis of liver (principal); R18.8 Other ascites; E11.9 Type 2 diabetes mellitus without complications; I10 Essential (primary) hypertension; D64.9 Anemia, unspecified; M19.90 Unspecified osteoarthritis, unspecified site; K21.9 Gastro-esophageal reflux disease without esophagitis; Z85.6 Personal history of leukemia; Z85.46 Personal history of malignant neoplasm of prostate; Z86.73 Personal history of transient ischemic attack (TIA), and cerebral infarction without residual deficits; Z87.891 Personal history of nicotine dependence; Z90.49 Acquired absence of other specified parts of digestive tract
CPT/HCPCS: 36415; 49083; 80053; 82140; 85025; 85610; 99284; C1729

== ENCOUNTER 2023-04-11 11:01 | Outpatient (CLI) | payer OTHER, SELFPAY ==
[2023-04-11 11:49] LABS: Alanine Aminotransferase 11 U/L (6-50); Albumin Level 3.1 g/dL (3.5-5.1); Alkaline Phosphatase 289 U/L (38-126); Anion Gap 3 mmol/L (8-16); Aspartate Amino Transferase 38 U/L (17-59); Bilirubin,Total 0.8 mg/dL (0.2-1.3); Blood Urea Nitrogen 16 mg/dL (9-20); Calcium 8.6 mg/dL (8.4-10.2); Carbon Dioxide 29 mmol/L (22-30); Chloride 103 mmol/L (98-107); Estimated Glomerular Filt Rate > 60; Glucose 128 mg/dL (65-110); Potassium 4.8 mmol/L (3.4-5.0); Sodium 135 mmol/L (137-145)
== END 2023-04-11 11:02 | disposition home or self-care (01) ==
PROVIDERS: PCP Hospitalist; Visit Provider Hospitalist
DX: D64.9 Anemia, unspecified (principal); K74.60 Unspecified cirrhosis of liver; R18.8 Other ascites
CPT/HCPCS: 36415; 80048; 80076

== ENCOUNTER 2023-04-12 10:13 | Inpatient (IN) | payer OTHER, SELFPAY ==
[2023-04-12] VITALS (19 sets, daily range): BP systolic 117–143; BP diastolic 85–108; PULSE 92–112; RESP 11–24; TEMP 36.7–36.9; O2SAT 95–100
--- NOTE | ~2023-04-12 | CT_ITS ---
EXAMINATION: CTA chest PE protocol DATE: 04/12/2023 15:08 INDICATION: LUE DVT, tachycardia TECHNIQUE: Computed tomography angiography (CTA) of the chest was performed with 100 mL Omnipaque-350 intravenous contrast timed to evaluate the pulmonary arteries. Coronal maximum intensity projection 3D-reconstructions were created by the technologist. The dose-length product (DLP) was 609.52 mGy-cm. Automated exposure control and iterative reconstruction technique were employed. COMPARISON: X-ray chest 02/22/2023; CT cap 05/27/2021; CT abdomen pelvis 01/25/2023. FINDINGS: Lung parenchyma and airways: Clear. Pleura: Unremarkable. Thoracic inlet, axillae and chest wall: Mild bilateral symmetric gynecomastia. Mild body wall edema. Thoracic aorta: Normal. Mediastinum: Normal. Heart and pericardium: Mild cardiomegaly. Small volume pericardial fluid. RV/LV ratio 1.2. Coronary artery calcifications: Mild. Upper abdomen: Cirrhosis. Splenomegaly. Moderate volume ascites. Status post cholecystectomy. Bones: No acute osseous finding. Multiple old thoracic wedge compression fractures. Multiple old righ t rib fractures. Pulmonary arteries: Study quality: Adequate. Nonocclusive acute segmental and subsegmental emboli pre sent in the bilateral lower lobes and left upper lobe. IMPRESSION: Nonocclusive acute segmental and subsegmental emboli present in the bilateral lower lobes and left up per lobe. RV/LV ratio of 1.2, indicating right heart strain. Cirrhosis. Portal hypertension. Moderate ascites. Reviewed, dictated and finalized at location K. IMPRESSION: Nonocclusive acute segmental and subsegmental emboli present in the bilateral l ower lobes and left upper lobe. RV/LV ratio of 1.2, indicating right heart stra in. Cirrhosis. Portal hypertension. Moderate ascites.
--- NOTE | ~2023-04-12 | US_ITS ---
US venous doppler UE LT DATE: 04/12/2023 13:22 INDICATION: Erythema, warmth and swelling of left upper extremity TECHNIQUE: Real-time and color flow imaging and Doppler analysis of left upper extremity veins COMPARISON: None FINDINGS: There is flow in the left internal jugular and subclavian veins. Intraluminal thrombus is identified in the left axillary vein and upper brachial vein with lack of no rmal compression. The cephalic and basilic veins are patent. IMPRESSION: Left axillary and upper brachial deep venous thrombosis Reviewed, dictated and finalized at Location A. Reviewed, dictated and finalized at location A.
--- NOTE | 2023-04-12 11:10 | ED.GENADULT ---
HPI - General Adult General Chief complaint: Wound/Laceration <Geetha Echols PA-C - Last Filed: 04/14/23 00:46> Stated complaint: Redness,swelling L arm <NEO Villaseñor Last Filed: 04/14/23 00:46> Time Seen by Provider: 04/12/23 10:45 <Geetha Echols PA-C - Last Filed: 04/14/23 00:46> History of Present Illness HPI narrative: 53-year-old male with a history of cirrhosis and ascites reports for evaluation for left upper extremity erythema, swelling and pain x1 day. Patient had a IV placed approximately 3 weeks ago, no other IV or trauma since. He denies recent known insect bites or injuries to the area. He reports pain with full extension of the elbow but is able to fully flex it without difficulty. He denies fever, nausea or vomiting, chest pain or shortness of breath, paresthesias. His PCP had increased his Lasix from 40 to 80 mg twice daily recently. He also undergoes paracentesis multiple times a week. He is scheduled tomorrow outpatient. His last paracentesis was 4 days ago. He reports abdominal pain in the RUQ that is unchanged from his baseline. His finish specialist is at [facility]. <Geetha Echols PA-C - Last Filed: 04/14/23 00:46> Related Data Home medications: Home Medications Medication Instructions Recorded Confirmed potassium chloride 20 mEq 20 meq PO BID 04/11/22 04/13/23 tablet,extended release(part/cryst) ondansetron 4 mg disintegrating 4 mg PO Q4H PRN Nausea 07/16/22 04/13/23 tablet furosemide 40 mg tablet 80 mg PO BID 08/25/22 04/13/23 gabapentin 300 mg capsule 300 mg PO HS 01/21/23 04/13/23 insulin lispro protamine-lispro 5 unit subcut BID 01/21/23 04/13/23 100 unit/mL (75-25) subcutaneous pen pregabalin 75 mg capsule 75 mg PO DAILY 01/21/23 04/13/23 spironolactone 50 mg tablet 100 mg PO Q12H 04/13/23 04/13/23 (Aldactone) <NEO Villaseñor Last Filed: 04/14/23 00:46> Allergies/adverse reactions: Allergies Allergy/AdvReac Type Severity Reaction Status Date / Time ceftriaxone AdvReac Itching Verified 04/13/23 18:48 ciprofloxacin AdvReac Itching Verified 04/13/23 18:48 <Geetha Echols PA-C - Last Filed: 04/14/23 00:46> Review of Systems Review of Systems: CONSTITUTIONAL: Denies fever, chills EYES: Denies visual changes, redness, or discharge. ENT: Denies rhinorrhea, congestion, sore throat, or otalgia. CARDIOVASCULAR: Denies chest pain, palpitations, or edema. RESPIRATORY: Denies cough or dyspnea. GASTROINTESTINAL: Denies abdominal pain, nausea, vomiting, or diarrhea. GENITOURINARY: See HPI SKIN: See HPI MUSCULOSKELETAL: Denies back pain, joint pain, or myalgia. NEUROLOGIC: Denies headache, numbness, dizziness, or weakness. PSYCHIATRIC: Denies anxiety or depression. <Geetha Echols PA-C - Last Filed: 04/14/23 00:46> [facility] Past Medical History Medical History: Medical History Arthritis C. difficile colitis Cerebrovascular accident (2004) Chronic anemia Cirrhosis of liver with ascites Diarrhea Diastolic congestive heart failure Esophageal varices Gastric ulcer Gastroesophageal reflux disease GI bleed Hyperglycemia Hypertension Kidney stone Leukemia In childhood. Pancreatic abnormality Pericardial effusion Noted on CT and echocardiogram in August 2020. No evidence of tamponade. Portal hypertensive gastropathy Noted on endoscopy on 03/23/[address] Duran. Prostate cancer Status post radiation seed implantation. Smoker Spontaneous bacterial peritonitis (04/2020) Tobacco dependence Type 2 diabetes mellitus <Geetha Echols PA-C - Last Filed: 04/14/23 00:46> Surgical History Surgical History: Surgical History History of appendectomy History of cholecystectomy History of cystoscopy History of inguinal hernia repair History of lithotripsy History of re
[2023-04-12 11:32] LABS: Appearance Urine Clear (Clear); Bilirubin Urine Negative (Negative); Blood Urine Negative (Negative); Color Urine Yellow (Yellow); Glucose Urine UA Negative (Negative); Ketones Urine Negative (Negative); Leukocyte Esterase Ur Negative LEU/UL (Negative); Nitrate Urine Negative (Negative); Protein Urine Negative (Negative); Specific Grav Ur 1.007 (1.001-1.035); Urobilinogen Urine 0.2 mg/dL (<2.0)
[2023-04-12 11:41] LABS: Add Urine Microscopic? NO
[2023-04-12 11:44] LABS: Basophils Percent Auto 0.4 % (0.2-1.2); Eosinophils Absolute Auto 0.1 K/mm3 (0-0.3); Hematocrit 34.5 % (42.0-52.0); Hemoglobin 9.5 g/dL (14.0-18.0); Immature Granulocyte Absolute 0.01 K/mm3 (0.00-0.031); Immature Granulocyte Percent A 0.2 % (0-0.5); Immature Platelet Fraction Pct 5.3 % (0.9-11.2); Lymphocytes Absolute Auto 0.61 K/mm3 (0.9-3.2); Lymphocytes Percent Auto 12.2 % (18.3-44.2); Mean Corpuscular HGB Conc 27.5 g/dl (32-36); Mean Corpuscular Hemoglobin 25.1 pg (26-34); Mean Platelet Volume 10.9 fl (7.4-10.4); Monocytes Absolute Auto 0.7 K/mm3 (0.1-0.6); Monocytes Percent Auto 13.9 % (2.6-8.5); Neutrophils Absolute Auto 3.6 K/mm3 (1.3-6.7); Neutrophils Percent Auto 72.3 % (45.5-73.1); Platelet Count Result 106 k/mm3 (150-375); Red Blood Count 3.79 M/mm3 (4.6-6.20); Red Cell Distribution Width 18.3 % (11.5-14.5)
[2023-04-12 11:57] LABS: Alanine Aminotransferase 10 U/L (6-50); Alkaline Phosphatase 260 U/L (38-126); Anion Gap 4 mmol/L (8-16); Aspartate Amino Transferase 33 U/L (17-59); Bilirubin,Total 0.6 mg/dL (0.2-1.3); Blood Urea Nitrogen 15 mg/dL (9-20); CRP 1.4 mg/dL (<1.0); Calcium 8.2 mg/dL (8.4-10.2); Carbon Dioxide 26 mmol/L (22-30); Chloride 104 mmol/L (98-107); Estimated CRCL calculation 66 ml/min; Estimated Glomerular Filt Rate > 60; Glucose 95 mg/dL (65-110); Potassium 4.2 mmol/L (3.4-5.0); Sodium 134 mmol/L (137-145)
[2023-04-12 12:16] LABS: Erythrocyte Sedimentation Rate 25 mm/hr (0-20)
[2023-04-12] MEDS: MORPHINE SULFATE (*CRX) 2 MG/ML INJ IV PUSH (12:36)
--- NOTE | 2023-04-12 14:06 | ECG_ITS ---
Measurements Intervals [place] Rate: 102 P: 26 TN: 156 QRS: 3 QRSD: 88 T: 7 QT: 344 QTc: 450 Interpretive Statements SINUS TACHYCARDIA POSSIBLE ANTERIOR MYOCARDIAL INFARCTION , PROBABLY OLD [30 ms Q WAVE IN V3/V4, OR R < 0.2 mV IN V4] LOW VOLTAGE NONSPECIFIC T-WAVE ABNORMALITY ABNORMAL ECG COMPARED TO ECG 07/16/2022 12:47:30 NO SIGNIFICANT CHANGES Electronically Signed On 04-13-2023 8:48:02 CDT by Dennis Patino M.D.
[2023-04-12 15:02] LABS: Partial Thromboplastin Time 30.6 SECONDS (22.3-36.8)
[2023-04-12 15:07] LABS: NT Pro B Type Natriuretic Pept 697 pg/mL (19.9-100)
[2023-04-12 15:08] LABS: INR 1.1; Prothrombin Time 14.1 Seconds (11.1-14.7)
[2023-04-12 15:10] LABS: Troponin I < 0.012 ng/mL (0.000-0.034)
[2023-04-12] MEDS: HYDROmorphone HCL INJ (*CRX) 1 MG/ML SYR 0.5 MG IV PUSH ×3 (17:15→23:21)
[2023-04-12] MEDS: HEPARIN SOD/D5W 100 UNITS/ML 25,000 UNITS/250 ML BAG 12 UNITS IV CONT (17:25)
--- NOTE | 2023-04-12 17:51 | PC.NURSE ---
1749 Pt remains on bed wait list for [facility] ICU [facility]
[2023-04-12 22:36] LABS: Prothrombin Time 13.5 Seconds (11.1-14.7)
[2023-04-12 22:38] LABS: Partial Thromboplastin Time 41.9 SECONDS (22.3-36.8)
--- NOTE | 2023-04-12 23:22 | PC.NURSE ---
Verbal order from Dr. Pham to increase heparin to 15mL/hr based off pts PTT. Verbal order to not give bolus dose of Heparin.
[2023-04-13] VITALS (19 sets, daily range): BP systolic 120–126; BP diastolic 80–91; PULSE 87–114; RESP 15–20; TEMP 36.4–36.8; O2SAT 95–98; BMI 29.7
--- NOTE | 2023-04-13 02:28 | PC.NURSE ---
patient wishes to wait until the morning for Gabapentin
[2023-04-13] MEDS: oxyCODONE HCL (*CRX) 5 MG TAB IR 20 MG PO ×4 (04:26→22:56)
[2023-04-13] MEDS: GABAPENTIN 300 MG CAPSULE PO ×2 (04:28→20:28)
[2023-04-13 07:22] LABS: Basophils Percent Auto 0.8 % (0.2-1.2); Eosinophils Absolute Auto 0.1 K/mm3 (0-0.3); Eosinophils Percent Auto 3.2 % (0-4.4); Hematocrit 32.1 % (42.0-52.0); Immature Granulocyte Absolute 0.01 K/mm3 (0.00-0.031); Immature Granulocyte Percent A 0.3 % (0-0.5); Lymphocytes Absolute Auto 0.76 K/mm3 (0.9-3.2); Lymphocytes Percent Auto 20.1 % (18.3-44.2); Mean Corpuscular Hemoglobin 25.2 pg (26-34); Mean Corpuscular Volume 89.9 fl (80-100); Mean Platelet Volume 9.5 fl (7.4-10.4); Monocytes Absolute Auto 0.7 K/mm3 (0.1-0.6); Monocytes Percent Auto 17.2 % (2.6-8.5); Neutrophils Absolute Auto 2.2 K/mm3 (1.3-6.7); Neutrophils Percent Auto 58.4 % (45.5-73.1); Platelet Count Result 100 k/mm3 (150-375); Red Blood Count 3.57 M/mm3 (4.6-6.20); Red Cell Distribution Width 18.2 % (11.5-14.5); White Blood Count 3.8 K/mm3 (4.5-10.0)
[2023-04-13 07:40] LABS: Anisocytosis 1+ (NORMAL); Hypochromasia 1+ (NORMAL); Platelet Estimate Decreased (Adequate); Schistocytes None Seen (NORMAL)
[2023-04-13 08:18] LABS: Glucose Point of Care 93 mg/dl (65-105)
[2023-04-13] MEDS: INSULIN ASPART (*BKC) 100 UNITS/ML SUB-Q ×2 (08:24→17:11)
[2023-04-13] MEDS: PANTOPRAZOLE 40 MG TABLET PO (09:08)
[2023-04-13] MEDS: FUROSEMIDE 80 MG TABLET PO ×2 (09:45→17:42)
[2023-04-13] MEDS: MIDODRINE HCL 2.5 MG TABLET PO ×3 (09:45→17:42)
[2023-04-13] MEDS: HEPARIN SOD/D5W 100 UNITS/ML 25,000 UNITS/250 ML BAG 15 UNITS IV CONT (12:00)
[2023-04-13 12:59] LABS: Glucose Point of Care 142 mg/dl (65-105)
[2023-04-13] MEDS: HYDROmorphone HCL INJ (*CRX) 1 MG/ML SYR 0.5 MG IV PUSH ×3 (13:57→20:48)
[2023-04-13 14:06] LABS: Partial Thromboplastin Time 58.8 SECONDS (22.3-36.8)
[2023-04-13] MEDS: HEPARIN SODIUM 5,000 UNITS/ML VIAL 2500 UNITS IV PUSH (14:12)
--- NOTE | 2023-04-13 14:30 | ECG_ITS ---
Measurements Intervals [place] Rate: 99 P: 30 TX: 156 QRS: 8 QRSD: 81 T: 17 QT: 354 QTc: 456 Interpretive Statements SINUS RHYTHM COMPARED TO ECG 04/12/2023 14:17:58 SINUS RHYTHM NOW PRESENT Electronically Signed On 04-14-2023 11:17:13 CDT by Andre Valdez M.D.
--- NOTE | 2023-04-13 16:42 | ADMGEN ---
This patient, Matt Worley II, was admitted to Virtual Bed IMU-4. Patient/family oriented to hospital policies and general routines including ID bracelet, bed and alarms, visiting hours, pain management, procedures, bathroom and other care routines, personal items, smoking policy, room service/diet, and visiting hours. Information on how to activate the Rapid Response Team has been discussed. Patient/Family are encouraged to report perceived risks to care and to ask questions if they do not understand what they are told or what they should do.
[2023-04-13 17:14] LABS: Glucose Point of Care 118 mg/dl (65-105)
[2023-04-13] MEDS: ONDANSETRON INJ 4 MG/2 ML VIAL IV PUSH (17:49)
--- NOTE | 2023-04-13 17:49 | PM.IMHP ---
H&P: HPI History of Present Illness Date/Time: 04/13/23 17:00 Chief Complaint: PE, left arm DVT. Narrative: This is a 53-year-old male with 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 Patient was hospitalized a few weeks prior and notes that he had an IV in that arm. Ultrasound of the arm showed a left axillary and upper brachial deep venous thrombosis and a subsequent chest CTA obtained for evaluation of tachycardia showed nonocclusive acute segmental and subsegmental emboli in the bilateral lower lobes and left upper lobe. Given the patient's complicated medical history and esophageal variceal bleeding within the past month or so, it was felt that he would benefit from transfer to tertiary care and he was accepted at [facility] however no bed has yet become available. He has been in the ER for over 24 hours and is being admitted to the IMU for close monitoring, pending transfer. He has been on a heparin drip and seems to be tolerating that well. He has not had any bowel movements and he denies nausea and vomiting. His main complaint at the time my evaluation is that of pain in the left upper arm due to the significant swelling. He denies fever, chills, sweats, chest pain, pleuritic pain, shortness a breath, and abdominal pain (aside from distension and tightness due to reaccumulation of ascites). Of note the patient's has stage IV breast cancer and she is currently on hospice. Review of Systems Review of Systems: Twelve systems were reviewed and are negative except for as per HPI. [facility] Past Medical History Medical History Arthritis C. difficile colitis Cerebrovascular accident (2004) Chronic anemia Cirrhosis of liver with ascites Diarrhea Diastolic congestive heart failure Esophageal varices Gastric ulcer Gastroesophageal reflux disease GI bleed Hyperglycemia Hypertension Kidney stone Leukemia In childhood. Pancreatic abnormality Pericardial effusion Noted on CT and echocardiogram in August 2020. No evidence of tamponade. Portal hypertensive gastropathy Noted on endoscopy on 03/23/[address] Duran. Prostate cancer Status post radiation seed implantation. Smoker Spontaneous bacterial peritonitis (04/2020) Tobacco dependence Type 2 diabetes mellitus Surgical History Surgical History History of appendectomy History of cholecystectomy History of cystoscopy History of inguinal hernia repair History of lithotripsy History of repair of right rotator cuff Family History Family History Mother Breast cancer Father Acute myocardial infarction Heart disease Hypertension Other Diabetes mellitus Maternal Uncle Sibling Family history of malignant neoplasm Social History Social History Social History: Surrogate decision maker: Myra Worley () or Marnie Washington (aunt). Code status: Full code Smoking packs per day: 0.5 Smoking cigarettes per day: 10.0 Years smoked: 35 Smoking pack-years: 17.50 Smoking status: Former smoker Tobacco type: cigarettes Second hand tobacco smoke exposure: No Alcohol intake: former Drinks per week: 0 Alcohol use details: Former beer drinker. Substance use: never Substance use type: does not use Other substance usage details: DECEMBER 16 2022 LAST DRINK- BEER Lack of Transportation: No Lack of Food: Never True Current Housing: I Have Housing Concerned About Future Housing: No Difficulty Paying Gas/Electric Bills: No Difficulty Paying for Meds: No Cu
[2023-04-13 18:31] LABS: Partial Thromboplastin Time 83.2 SECONDS (22.3-36.8)
--- NOTE | 2023-04-13 18:40 | ADMGEN ---
This patient, Matt Worley II, was admitted to IMU Room 207-01. Patient/family oriented to hospital policies and general routines including ID bracelet, bed and alarms, visiting hours, pain management, procedures, bathroom and other care routines, personal items, smoking policy, room service/diet, and visiting hours. Information on how to activate the Rapid Response Team has been discussed. Patient/Family are encouraged to report perceived risks to care and to ask questions if they do not understand what they are told or what they should do.
[2023-04-13] MEDS: SPIRONOLACTONE 50 MG TABLET 100 MG PO (22:56)
[2023-04-14] VITALS (17 sets, daily range): BP systolic 113–134; BP diastolic 80–89; PULSE 92–120; RESP 16–20; TEMP 35.9–37.8; O2SAT 93–98
--- NOTE | 2023-04-14 | ECHO_ITS ---
Patient Info Name: Matt Worley Age: 53 years : 1970 Gender: Male Ht: 65 in Wt: 178 lbs BSA: 1.95 m2 HR: 99 bpm BP: 113 / 80 mmHg Heart Rhythm: Sinus Rhythm Technical Quality: Fair Exam Date: 04/14/2023 9:58 AM Exam Location: Echo Lab Patient Status: Inpatient Admit Date: 04/14/2023 Staff Ordering Physician: Romi Leiva PA-C Records Coordinator: Darrel Freeman RDCS Attending Provider: Carolina Thompson MD Exam Type: CA echo doppler color flow Study Info Indications - PULMONARY EMBOLISM Complete two-dimensional, color flow and Doppler transthoracic echocardiogram is performed. Summary 1. Complete two-dimensional, color flow and Doppler transthoracic echocardiogram is performed. 2. Left ventricular chamber dimension is normal. 3. Left ventricular systolic function is normal, estimated at 60-65%. 4. The left ventricular diastolic function is grade I diastolic dysfunction. 5. Right ventricular chamber dimension is normal. 6. Right ventricular systolic function is normal. 7. Left atrial chamber dimension is mildly enlarged. 8. There is trace mitral valve regurgitation. 9. There is trace tricuspid valve regurgitation. Left Ventricle Left ventricular chamber dimension is normal. Left ventricular systolic function is normal, estimated at 60-65%. There is no increased left ventricular wall thickness. The left ventricular diastolic function is grade I diastolic dysfunction. Right Ventricle Right ventricular chamber dimension is normal. Right ventricular systolic function is normal. Left Atria Left atrial chamber dimension is mildly enlarged. Right Atria Right atrial chamber dimension is normal. Atrial Septum Intact interatrial septum visualized by color flow imaging. Aortic Valve The aortic valve is trileaflet. There is no aortic valve stenosis. There is no aortic valve regurgitation. Pulmonic Valve The pulmonic valve is not well visualized. Mitral Valve There is trace mitral valve regurgitation. Tricuspid Valve There is trace tricuspid valve regurgitation. Pericardium/Pleural There is no pericardial effusion. Inferior Vena Cava Inferior vena cava is not well visualized. Aorta The aortic root size at the sinus of Valsalva is normal. Left Ventricular Outflow Tract Name Value Normal LVOT Doppler LVOT Peak Gradient 5 mmHg LVOT Mean Gradient 4 mmHg LVOT VTI 30 cm LVOT VTI/AV VTI Ratio 1.0 Pulmonic Valve Name Value Normal RVOT Doppler RVOT Peak Gradient 4 mmHg PV Doppler PV Peak Gradient 6 mmHg Mitral Valve Name Value Normal MV Doppler MV Decel Slop
[2023-04-14] MEDS: HYDROmorphone HCL INJ (*CRX) 1 MG/ML SYR 0.5 MG IV PUSH ×4 (01:55→14:13)
[2023-04-14 02:17] LABS: Partial Thromboplastin Time 80.2 SECONDS (22.3-36.8)
[2023-04-14] MEDS: oxyCODONE HCL (*CRX) 5 MG TAB IR 20 MG PO ×3 (04:02→13:14)
[2023-04-14] MEDS: HEPARIN SOD/D5W 100 UNITS/ML 25,000 UNITS/250 ML BAG 16 UNITS IV CONT ×2 (04:02→20:21)
[2023-04-14 05:51] LABS: Basophils Percent Auto 0.6 % (0.2-1.2); Eosinophils Absolute Auto 0.1 K/mm3 (0-0.3); Eosinophils Percent Auto 1.6 % (0-4.4); Hematocrit 32.4 % (42.0-52.0); Hemoglobin 9.4 g/dL (14.0-18.0); Immature Granulocyte Absolute 0.01 K/mm3 (0.00-0.031); Immature Granulocyte Percent A 0.2 % (0-0.5); Immature Platelet Fraction Pct 7.1 % (0.9-11.2); Lymphocytes Absolute Auto 0.92 K/mm3 (0.9-3.2); Lymphocytes Percent Auto 18.7 % (18.3-44.2); Mean Corpuscular Hemoglobin 25.3 pg (26-34); Mean Corpuscular Volume 87.1 fl (80-100); Mean Platelet Volume 10.4 fl (7.4-10.4); Monocytes Absolute Auto 0.8 K/mm3 (0.1-0.6); Monocytes Percent Auto 15.7 % (2.6-8.5); Neutrophils Absolute Auto 3.1 K/mm3 (1.3-6.7); Neutrophils Percent Auto 63.2 % (45.5-73.1); Platelet Count Result 112 k/mm3 (150-375); Red Blood Count 3.72 M/mm3 (4.6-6.20); Red Cell Distribution Width 17.9 % (11.5-14.5); White Blood Count 4.9 K/mm3 (4.5-10.0)
[2023-04-14 05:58] LABS: Anion Gap 3 mmol/L (8-16); Blood Urea Nitrogen 16 mg/dL (9-20); Calcium 8.2 mg/dL (8.4-10.2); Carbon Dioxide 25 mmol/L (22-30); Chloride 98 mmol/L (98-107); Estimated CRCL calculation 69 ml/min; Estimated Glomerular Filt Rate > 60; Glucose 114 mg/dL (65-110); Potassium 4.2 mmol/L (3.4-5.0); Sodium 126 mmol/L (137-145)
[2023-04-14 07:44] LABS: Anisocytosis 1+ (NORMAL); Hypochromasia 1+ (NORMAL); Platelet Estimate Decreased (Adequate); Schistocytes None Seen (NORMAL)
[2023-04-14] MEDS: POTASSIUM CHLORIDE 20 MEQ ER TABLET PO ×2 (08:42→17:50)
[2023-04-14] MEDS: FUROSEMIDE 80 MG TABLET PO (08:42)
[2023-04-14] MEDS: PANTOPRAZOLE 40 MG TABLET PO ×2 (08:46→20:18)
[2023-04-14] MEDS: PREGABALIN (*CRX) 75 MG CAPSULE PO (08:46)
[2023-04-14] MEDS: SPIRONOLACTONE 50 MG TABLET 100 MG PO (08:47)
[2023-04-14 16:50] LABS: Glucose Point of Care 156 mg/dl (65-105)
[2023-04-14] MEDS: MORPHINE SULFATE (*CRX) 2 MG/ML INJ IV PUSH ×3 (17:50→22:05)
--- NOTE | 2023-04-14 18:02 | PM.IMPN ---
Progress Note: A&P Assessment and Plan (1) Abdominal ascites: Code(s): R18.8 - Other ascites Status: Acute (2) Left upper extremity deep vein thrombosis: Code(s): I82.622 - Acute embolism and thrombosis of deep veins of left upper extremity Status: Acute (3) Pulmonary emboli: Code(s): I26.99 - Other pulmonary embolism without acute cor pulmonale Status: Acute (4) DVT (deep venous thrombosis): Qualifiers: Affected thrombotic vein of extremity: axillary Chronicity: acute DVT location: upper extremity Laterality: left Qualified Code(s): I82.A12 - Acute embolism and thrombosis of left axillary vein Code(s): I82.409 - Acute embolism and thrombosis of unspecified deep veins of unspecified lower extremity Status: Acute (5) Pulmonary embolism: Qualifiers: Pulmonary embolism type: multiple subsegmental (without acute cor pulmonale) Qualified Code(s): I26.94 - Multiple subsegmental pulmonary emboli without acute cor pulmonale Code(s): I26.99 - Other pulmonary embolism without acute cor pulmonale Status: Acute (6) Cirrhosis: Qualifiers: Ascites presence: with ascites Hepatic cirrhosis type: unspecified hepatic cirrhosis Qualified Code(s): K74.60 - Unspecified cirrhosis of liver; R18.8 - Other ascites Code(s): K74.60 - Unspecified cirrhosis of liver Status: Acute (7) Abdominal ascites: Code(s): R18.8 - Other ascites Status: Acute Plan 1. PE with R heart strain PT unable to be transferred to [facility] by ER, admitted to IMU here. They have no ICU beds I called [facility] transfer line I have not called [facility] CT shows R heart strain, echo read pending on heparin drip Has an RV heave Talked with ICU physician Dr. Torres, recommends transfer to tertiary center to receive catheter directed thrombolysis 2. Abd distention from ascites gets therapeutic tap q2-3 days missed the tap from 1 week ago because he was having drainage at home from prior paracentesis site Radiology will not tap unless pt is off heparin for 6 hrs. We will do this tomorrow with radiology will suspend aldactone and lasix until he is no longer in R heart strain on echo 3. Hx of varices and recent GI bleed high risk of bleeding unfortunately all we can do is monitor right now lasix held to reduce risk of RV failure based on low preload from lasix on bid protonix po 4. Hx of LUE DVT see above plan on heparin drip 5. Hyperglycemia monitoring ISS 6. Hypocalcemia given cagluconate About 2 hrs was spent with this pt trying to transfer him to [facility] or [facility]. I will try [facility] tomorrow if none of these works out. Ideally he will go to an ICU bed. Inpt/Tele DNR pt Time Spent With Patient Time: 2 hrs Subjective Date/time seen: 04/14/23 18:02 Interval history: having abd pain from abd distention and not having had paracentesis Review of Systems Review of Systems: occasional cp and chest pressure Exam Narrative: General:?Chronically ill-appearing male sitting up in bed in no acute distress. Weight: 81.1 kg.? BMI: 29.8. HEENT:?Wearing glasses. PERRL, EOMI. Sclera anicteric. Tacky mucous membranes. Neck:??Supple. Respiratory:?Lungs are clear to auscultation bilaterally. Cardiovascular:??nl s1, s2, regular rhythm, tachy, RV heave appreciated throughout chest Gastrointestinal:??Abdomen is slightly firm and protuberant with shifting dullness. Mild tenderness to palpation throughout the abdomen which is not unusual for him. No guarding or rebound tenderness. Skin:??Warm and dry. Sallow. Extremities:??No cyanosis or clubbing. Tight pitting edema from the feet extending the lower flank. Neurological:??Alert.? Cranial nerves 2-12 are grossly intact. No gross focal deficits to casual conversation. Psychiatric:??Pleasant and cooperative with appropriate mood and affect. Objective Data
[2023-04-14] MEDS: CALCIUM GLUC 1,000 MG/NS 50 ML 1,000 MG/50 ML BAG 100 MG IVPB (18:37)
[2023-04-14] MEDS: GABAPENTIN 300 MG CAPSULE PO (20:17)
[2023-04-14 20:30] LABS: Glucose Point of Care 138 mg/dl (65-105)
--- NOTE | 2023-04-14 20:43 | PC.NURSE ---
[id number] Spoke with Eyal from [facility] transfer line, ICU provider from [place] wants to speak with pt's hospitalist taking care of pt. Notified Dr. Samuels. Stated he would have to come see the pt before calling them back. ICU provider wanting to verify that pt is still requiring ICU status upon transfer.
--- NOTE | 2023-04-14 20:46 | PC.NURSE ---
Dr. Samuels on floor, received verbal order to discontinue current pain medications and order morphine
--- NOTE | 2023-04-14 21:23 | PC.NURSE ---
Received bed from [facility] in medical ICU for room 4222. Accepting physician Dr. Becerra. Leonel called at 2123 with an ETA of [phone]. Patient remains stable at this time. Will continue to monitor.
--- NOTE | 2023-04-14 23:17 | PC.NURSE ---
Received orders to place bhatt catheter from Dr. Samuels. Bhatt catheter placed at 2114. Patient called out at 2229 complaining of extreme burning and pain at bhatt insertion site. Catheter draining appropriately. RN explained to patient that there would be some discomfort with the catheter in place. Patient demanded that bhatt be removed due to extreme discomfort. Bhatt catheter removed at 2229 per patient request. Will continue to monitor.
--- NOTE | 2023-04-14 23:20 | PC.NURSE ---
Report called to COREY Barry at [facility]. All imaging forwarded from patient's records per accepting doctors request. Awaiting transfer at this time. Patient remains vital. Will continue to monitor.
[2023-04-15] VITALS: BP 140/84; PULSE 107; PULSE 119; RESP 18; TEMP 36.6; O2SAT 96
[2023-04-15 00:24] LABS: Glucose Point of Care 144 mg/dl (65-105)
[2023-04-15] MEDS: MORPHINE SULFATE (*CRX) 2 MG/ML INJ IV PUSH ×2 (00:56→03:25)
[2023-04-15 01:59] VITALS: PULSE 108
[2023-04-15 03:40] VITALS: BP 112/62; PULSE 105; RESP 18; TEMP 36.8; O2SAT 97
--- NOTE | 2023-04-15 03:50 | PC.NURSE ---
Patient discharged at 0350 via [facility] to [facility]. COREY Barry notified of ETA. All vitals stable upon discharge. All belongings sent with patient.
--- NOTE | 2023-04-16 15:15 | PM.TDS ---
Transfer Discharge Sum: Prov Provider Date of admission: 04/14/23 14:47 Primary care physician: Matt Mathews, Admitting clinician: Carolina Thompson MD Consults: None Attending physician on discharge: Robin Samuels Discharging clinician: Robin Samuels Receiving physician/facility: Dr. Booker Becerra at [facility] DS: Admitting Diagnosis Discharge Date 04/15/23 Admitting Diagnosis PE with R heart strain DS: Discharge Diagnosis Discharge Diagnosis (1) Left upper extremity deep vein thrombosis: Code(s): I82.622 - Acute embolism and thrombosis of deep veins of left upper extremity Status: Acute (2) Pulmonary emboli: Code(s): I26.99 - Other pulmonary embolism without acute cor pulmonale Status: Acute (3) DVT (deep venous thrombosis): Qualifiers: Affected thrombotic vein of extremity: axillary Chronicity: acute DVT location: upper extremity Laterality: left Qualified Code(s): I82.A12 - Acute embolism and thrombosis of left axillary vein Code(s): I82.409 - Acute embolism and thrombosis of unspecified deep veins of unspecified lower extremity Status: Acute (4) Pulmonary embolism: Qualifiers: Pulmonary embolism type: multiple subsegmental (without acute cor pulmonale) Qualified Code(s): I26.94 - Multiple subsegmental pulmonary emboli without acute cor pulmonale Code(s): I26.99 - Other pulmonary embolism without acute cor pulmonale Status: Acute (5) KAREN (acute kidney injury): Code(s): N17.9 - Acute kidney failure, unspecified Status: Acute (6) Anasarca: Code(s): R60.1 - Generalized edema Status: Acute (7) Acute generalized abdominal pain: Code(s): R10.84 - Generalized abdominal pain Status: Acute (8) Anasarca: Code(s): R60.1 - Generalized edema Status: Acute (9) Abdominal ascites: Code(s): R18.8 - Other ascites Status: Acute (10) Cirrhosis: Qualifiers: Ascites presence: with ascites Hepatic cirrhosis type: unspecified hepatic cirrhosis Qualified Code(s): K74.60 - Unspecified cirrhosis of liver; R18.8 - Other ascites Code(s): K74.60 - Unspecified cirrhosis of liver Status: Acute Transfer Discharge Sum: Med Medications Active and Home Medications: Home Medications potassium chloride 20 mEq tablet,extended release(part/cryst) 20 meq PO BID 04/11/22 [History Confirmed 04/13/23] pantoprazole 40 mg tablet,delayed release 40 mg PO Q12HR #60 tabs 07/09/22 [Rx Confirmed 04/13/23] ondansetron 4 mg disintegrating tablet 4 mg PO Q4H PRN Nausea 07/16/22 [History Confirmed 04/13/23] furosemide 40 mg tablet 80 mg PO BID 08/25/22 [History Confirmed 04/13/23] gabapentin 300 mg capsule 300 mg PO HS 01/21/23 [History Confirmed 04/13/23] insulin lispro protamine-lispro 100 unit/mL (75-25) subcutaneous pen 5 unit subcut BID 01/21/23 [History Confirmed 04/13/23] pregabalin 75 mg capsule 75 mg PO DAILY 01/21/23 [History Confirmed 04/13/23] midodrine 2.5 mg tablet 5 mg PO TID 1 month #180 tabs 03/05/23 [Rx Confirmed 04/13/23] oxycodone 20 mg tablet 20 mg PO Q4H pain 2 weeks #84 tabs 03/05/23 [Rx Confirmed 04/13/23] spironolactone 50 mg tablet (Aldactone) 100 mg PO Q12H 04/13/23 [History Confirmed 04/13/23] Transfer Discharge Sum: Hosp Hospital Course Hospital course: This is a 53-year-old male with 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 Patient was hospitalized a few weeks prior and notes that he had an IV in that arm. Ultrasound of the arm showed a left axillary and upper brachial deep venous thrombosis and a subsequent chest CTA obtained for evaluation of tachycardia showed nonocclusive acute segmental and s
== END 2023-04-15 03:50 | disposition short-term general hospital (02) | DRG 206 ==
LOC: ANHED 04-13 07:43 → ANHIMU 04-13 14:38
PROVIDERS: Emergency Medicine; Physician Assistant; Admitting Provider General Practice; Emergency Provider Preventive Medicine Aerospace Medicine; PCP Hospitalist; Visit Provider Internal Medicine
DX: T80.1XXA Vascular complications following infusion, transfusion and therapeutic injection, initial encounter (principal); I26.99 Other pulmonary embolism without acute cor pulmonale; I26.94 Multiple subsegmental thrombotic pulmonary emboli without acute cor pulmonale; I82.622 Acute embolism and thrombosis of deep veins of left upper extremity; I82.A12 Acute embolism and thrombosis of left axillary vein; I31.39 Other pericardial effusion (noninflammatory); R18.8 Other ascites; I27.20 Pulmonary hypertension, unspecified; I50.32 Chronic diastolic (congestive) heart failure; I11.0 Hypertensive heart disease with heart failure; I85.10 Secondary esophageal varices without bleeding; K76.6 Portal hypertension; E83.51 Hypocalcemia; K74.69 Other cirrhosis of liver; K31.89 Other diseases of stomach and duodenum; K21.9 Gastro-esophageal reflux disease without esophagitis; E11.9 Type 2 diabetes mellitus without complications; Z86.73 Personal history of transient ischemic attack (TIA), and cerebral infarction without residual deficits; Z85.6 Personal history of leukemia; Z87.442 Personal history of urinary calculi; Z85.46 Personal history of malignant neoplasm of prostate; Z87.891 Personal history of nicotine dependence
CPT/HCPCS: 36415; 71275; 80048; 80053; 81003; 82948; 83880; 84484; 85025; 85055; 85610; 85652; 85730; 86140; 93005; 93306; 93971; 96365; 96366; 96375; 96376; 99285; A9270; G0378; G0379; J0612; J1170; J1644; J1815; J2270; J2405; Q9967

== ENCOUNTER 2023-04-13 15:00 | Outpatient (RCR) | payer OTHER, SELFPAY ==
--- NOTE | ~2023-04-13 | US_ITS ---
EXAMINATION: US paracentesis abd w/image DATE: 03/20/2023 10:50 INDICATION: Cirrhosis of the liver with ascites TECHNIQUE: The procedure and its risks and benefits were discussed with the patient. Potential risks discussed included bleeding and infection. The skin was prepped and draped in sterile fashion. 1% lid ocaine was used for local anesthesia. Under ultrasound guidance, a 5 Fr catheter with trochar was adv anced into the ascites in the right lower quadrant. Fluid was aspirated into vacuum bottles. The cath eter was removed, and a dressing was applied. There were no immediate complications. FINDINGS: Ultrasound images demonstrate ascites and the catheter within the fluid. IMPRESSION: 1. Successful ultrasound-guided paracentesis yielding 6000 mL of cloudy gio-colored fluid. Reviewed, dictated and finalized at location A. IMPRESSION: 1. Successful ultrasound-guided paracentesis yielding 6000 mL of cloudy gio- colored fluid.
--- NOTE | ~2023-04-13 | US_ITS ---
EXAMINATION: US paracentesis abd w/image DATE: 04/02/2023 11:46 INDICATION: Cirrhosis with ascites TECHNIQUE: The procedure and its risks and benefits were discussed with the patient. Potential risks discussed included bleeding and infection. The skin was prepped and draped in sterile fashion. 1% lid ocaine was used for local anesthesia. Under ultrasound guidance, a 5 Fr catheter with trochar was adv anced into the ascites in the right lower quadrant. Fluid was aspirated into vacuum bottles. The cath eter was removed, and a dressing was applied. There were no immediate complications. FINDINGS: Ultrasound images demonstrate ascites and the catheter within the fluid. IMPRESSION: 1. Successful ultrasound-guided paracentesis yielding 5000 mL of yellow fluid. Reviewed, dictated and finalized at location A.
--- NOTE | ~2023-04-13 | US_ITS ---
EXAMINATION: US paracentesis abd w/image DATE: 04/03/2023 15:34 INDICATION: Cirrhosis of the liver with ascites TECHNIQUE: The procedure and its risks and benefits were discussed with the patient. Potential risks discussed included bleeding and infection. The skin was prepped and draped in sterile fashion. 1% lid ocaine was used for local anesthesia. Under ultrasound guidance, a 5 Fr catheter with trochar was adv anced into the ascites in the right lower quadrant. Fluid was aspirated into vacuum bottles. The cath eter was removed, and a dressing was applied. There were no immediate complications. FINDINGS: Ultrasound images demonstrate ascites and the catheter within the fluid. IMPRESSION: 1. Successful ultrasound-guided paracentesis yielding 6300 mL of clear yellowish fluid. Reviewed, dictated and finalized at location A. IMPRESSION: 1. Successful ultrasound-guided paracentesis yielding 6300 mL of clear yellowi sh fluid.
--- NOTE | ~2023-04-13 | US_ITS ---
EXAMINATION: Consultation US DATE: 01/26/2023 16:04 INDICATION: Planned paracentesis TECHNIQUE: Multiple grayscale and Doppler ultrasound images of the abdomen were obtained. The patient was still experiencing significant drainage from the site of the prior paracentesis and given the re latively small amount of ascites the patient chose to defer additional paracentesis until his next sc heduled appointment for paracentesis on 01/28/2023. COMPARISON: None FINDINGS/IMPRESSION: Small to moderate amount of ascites seen in the right and left lower quadrants. Following discussion with patient, the paracentesis will be deferred until next scheduled appointment in 2 days. Reviewed, dictated and finalized at location A.
--- NOTE | ~2023-04-13 | US_ITS ---
EXAMINATION: US paracentesis abd w/image DATE: 03/27/2023 16:44 INDICATION: Ascites. TECHNIQUE: The procedure and its risks, benefits, and alternatives were discussed with the patient. P otential risks discussed included bleeding and infection. The skin was prepped and draped in sterile fashion. 1% lidocaine was used for local anesthesia. Under ultrasound guidance, a 5 Fr catheter with trochar was advanced into the ascites in the right lower quadrant. Fluid was aspirated. The catheter was removed, and a dressing was applied. There were no immediate complications. FINDINGS: Ultrasound images demonstrate ascites and the catheter within the fluid. IMPRESSION: 1. Successful ultrasound-guided paracentesis yielding 5000 mL of cloudy, yellow fluid. Reviewed, dictated and finalized at location A. IMPRESSION: 1. Successful ultrasound-guided paracentesis yielding 5000 mL of cloudy, yello w fluid.
--- NOTE | ~2023-04-13 | US_ITS ---
EXAMINATION: US paracentesis abd w/image DATE: 01/14/2023 11:58 INDICATION: Ascites. TECHNIQUE: The procedure and its risks and benefits were discussed with the patient. Potential risks discussed included bleeding and infection. The skin was prepped and draped in sterile fashion. 1% lid ocaine was used for local anesthesia. Under ultrasound guidance, a 5 Fr catheter with trochar was adv anced into the ascites in the right lower quadrant. Fluid was aspirated into vacuum bottles. The cath eter was removed, and a dressing was applied. There were no immediate complications. FINDINGS: Ultrasound images demonstrate ascites and the catheter within the fluid. IMPRESSION: 1. Successful ultrasound-guided paracentesis yielding 2200 mL of light gio-colored fluid. Reviewed, dictated and finalized at location A. IMPRESSION: 1. Successful ultrasound-guided paracentesis yielding 2200 mL of light gio-c olored fluid.
--- NOTE | ~2023-04-13 | US_ITS ---
EXAMINATION: US paracentesis abd w/image DATE: 01/19/2023 10:59 INDICATION: Ascites. TECHNIQUE: The procedure and its risks, benefits, and alternatives were discussed with the patient. P otential risks discussed included bleeding and infection. The skin was prepped and draped in sterile fashion. 1% lidocaine was used for local anesthesia. Under ultrasound guidance, a 5 Fr catheter with trochar was advanced into the ascites in the right lower quadrant. Fluid was aspirated. The catheter was removed, and a dressing was applied. There were no immediate complications. FINDINGS: Ultrasound images demonstrate ascites and the catheter within the fluid. IMPRESSION: 1. Successful ultrasound-guided paracentesis yielding 5000 mL of clear, yellow fluid. Reviewed, dictated and finalized at location A.
--- NOTE | ~2023-04-13 | US_ITS ---
EXAMINATION: US paracentesis abd w/image DATE: 03/09/2023 12:23 INDICATION: Ascites. TECHNIQUE: The procedure and its risks and benefits were discussed with the patient. Potential risks discussed included bleeding and infection. The skin was prepped and draped in sterile fashion. 1% lid ocaine was used for local anesthesia. Under ultrasound guidance, a 5 Fr catheter with trochar was adv anced into the ascites in the right lower quadrant. Fluid was aspirated into vacuum bottles. The cath eter was removed, and a dressing was applied. There were no immediate complications. FINDINGS: Ultrasound images demonstrate ascites and the catheter within the fluid. IMPRESSION: 1. Successful ultrasound-guided paracentesis yielding 6000 mL of gio-colored fluid. Reviewed, dictated and finalized at location A.
--- NOTE | ~2023-04-13 | US_ITS ---
EXAMINATION: US paracentesis abd w/image DATE: 02/20/2023 16:29 INDICATION: Ascites. TECHNIQUE: The procedure and its risks and benefits were discussed with the patient. Potential risks discussed included bleeding and infection. The skin was prepped and draped in sterile fashion. 1% lid ocaine was used for local anesthesia. Under ultrasound guidance, a 5 Fr catheter with trochar was adv anced into the ascites in the right lower quadrant. Fluid was aspirated into vacuum bottles. The cath eter was removed, and a dressing was applied. There were no immediate complications. FINDINGS: Ultrasound images demonstrate ascites and the catheter within the fluid. IMPRESSION: 1. Successful ultrasound-guided paracentesis yielding 6000 mL of light yellow fluid. Reviewed, dictated and finalized at location A.
--- NOTE | ~2023-04-13 | US_ITS ---
EXAMINATION: US paracentesis abd w/image DATE: 02/04/2023 16:01 INDICATION: Cirrhosis of the liver with ascites TECHNIQUE: The procedure and its risks and benefits were discussed with the patient. Potential risks discussed included bleeding and infection. The skin was prepped and draped in sterile fashion. 1% lid ocaine was used for local anesthesia. Under ultrasound guidance, a 5 Fr catheter with trochar was adv anced into the ascites in the left lower quadrant. Fluid was aspirated into vacuum bottles. The georgette ter was removed, and a dressing was applied. There were no immediate complications. FINDINGS: Ultrasound images demonstrate ascites and the catheter within the fluid. IMPRESSION: 1. Successful ultrasound-guided paracentesis yielding 5000 mL of clear yellow fluid. Reviewed, dictated and finalized at location A.
--- NOTE | ~2023-04-13 | US_ITS ---
EXAMINATION: US paracentesis abd w/image DATE: 01/16/2023 11:25 INDICATION: Ascites. TECHNIQUE: The procedure and its risks and benefits were discussed with the patient. Potential risks discussed included bleeding and infection. The skin was prepped and draped in sterile fashion. 1% lid ocaine was used for local anesthesia. Under ultrasound guidance, a 5 Fr catheter with trochar was adv anced into the ascites in the left lower quadrant. Fluid was aspirated into vacuum bottles. The georgette ter was removed, and a dressing was applied. There were no immediate complications. FINDINGS: Ultrasound images demonstrate ascites and the catheter within the fluid. IMPRESSION: 1. Successful ultrasound-guided paracentesis yielding 3000 mL of clear yellow fluid. Reviewed, dictated and finalized at location A.
--- NOTE | ~2023-04-13 | US_ITS ---
EXAMINATION: US paracentesis abd w/image DATE: 03/23/2023 11:12 INDICATION: Ascites. TECHNIQUE: The procedure and its risks, benefits, and alternatives were discussed with the patient. P otential risks discussed included bleeding and infection. The skin was prepped and draped in sterile fashion. 1% lidocaine was used for local anesthesia. Under ultrasound guidance, a 5 Fr catheter with trochar was advanced into the ascites in the left lower quadrant. Fluid was aspirated. The catheter w as removed, and a dressing was applied. There were no immediate complications. FINDINGS: Ultrasound images demonstrate ascites and the catheter within the fluid. IMPRESSION: 1. Successful ultrasound-guided paracentesis yielding 3450 mL of cloudy, yellow fluid. Reviewed, dictated and finalized at location A. IMPRESSION: 1. Successful ultrasound-guided paracentesis yielding 3450 mL of cloudy, yello w fluid.
--- NOTE | ~2023-04-13 | US_ITS ---
EXAMINATION: Consultation US DATE: 01/30/2023 09:43 INDICATION: Ascites TECHNIQUE: Multiple grayscale and Doppler ultrasound images of the abdomen were obtained. COMPARISON: None FINDINGS/IMPRESSION: There is a moderate amount of ascites in the right lower quadrant, small amount the left lower quadra nt. Patient was in no discomfort and felt that he could tolerate deferment of the paracentesis until Thursday. The planned paracentesis was therefore canceled. Reviewed, dictated and finalized at location A.
--- NOTE | ~2023-04-13 | US_ITS ---
EXAMINATION: US paracentesis abd w/image DATE: 03/17/2023 15:20 INDICATION: Ascites. TECHNIQUE: The procedure and its risks and benefits were discussed with the patient. Potential risks discussed included bleeding and infection. The skin was prepped and draped in sterile fashion. 1% lid ocaine was used for local anesthesia. Under ultrasound guidance, a 5 Fr catheter with trochar was adv anced into the ascites in the right lower quadrant. Fluid was aspirated into vacuum bottles. The cath eter was removed, and a dressing was applied. There were no immediate complications. FINDINGS: Ultrasound images demonstrate ascites and the catheter within the fluid. IMPRESSION: 1. Successful ultrasound-guided paracentesis yielding 6000 mL of yellow fluid. Reviewed, dictated and finalized at location A.
--- NOTE | ~2023-04-13 | US_ITS ---
EXAMINATION: US paracentesis abd w/image DATE: 02/09/2023 15:48 INDICATION: Cirrhosis of liver with ascites. TECHNIQUE: The procedure and its risks and benefits were discussed with the patient. Potential risks discussed included bleeding and infection. The skin was prepped and draped in sterile fashion. 1% lid ocaine was used for local anesthesia. Under ultrasound guidance, a 5 Fr catheter with trochar was adv anced into the ascites in the left lower quadrant. Fluid was aspirated into vacuum bottles. The georgette ter was removed, and a dressing was applied. There were no immediate complications. FINDINGS: Ultrasound images demonstrate ascites and the catheter within the fluid. IMPRESSION: 1. Successful ultrasound-guided paracentesis yielding 5000 mL of clear yellow fluid. Reviewed, dictated and finalized at location A.
== END 2023-04-14 23:59 | disposition home or self-care (01) ==
LOC: ANHIMG 15:00
PROVIDERS: PCP Hospitalist
DX: K74.60 Unspecified cirrhosis of liver (principal); R18.8 Other ascites
CPT/HCPCS: 36415; 49083; 80048; 80076; 99199

== ENCOUNTER 2023-05-09 05:45 | Observation (INO) | payer OTHER, SELFPAY ==
[2023-05-09] VITALS (10 sets, daily range): BP systolic 131–149; BP diastolic 73–100; PULSE 84–114; RESP 16–20; TEMP 36.2–36.8; O2SAT 100
--- NOTE | ~2023-05-09 | US_ITS ---
EXAMINATION: US abdomen limited DATE: 05/10/2023 17:49 INDICATION: elevated alk phosp TECHNIQUE: Multiple grayscale and Doppler ultrasound images of limited portions of the abdomen were o btained. COMPARISON: CT abdomen pelvis 01/25/2023. FINDINGS: Pancreas poorly visualized. Coarse echogenic liver parenchyma. Nodular liver border. Normal hepatopetal flow in the main portal vein. Status post cholecystectomy. The common bile duct was not visualized. Right kidney measures 8.7 x 3.8 x 5.5 cm. Moderate volume ascites. IMPRESSION: Cirrhosis. Moderate volume ascites. Reviewed, dictated and finalized at location K. [employer]
--- NOTE | ~2023-05-09 | US_ITS ---
EXAMINATION: US paracentesis abd w/image DATE: 05/09/2023 12:08 INDICATION: Ascites. TECHNIQUE: The procedure and its risks and benefits were discussed with the patient. Potential risks discussed included bleeding and infection. The skin was prepped and draped in sterile fashion. 1% lid ocaine was used for local anesthesia. Under ultrasound guidance, a 5 Fr catheter with trochar was adv anced into the ascites in the right lower quadrant. Fluid was aspirated into vacuum bottles. The cath eter was removed, and a dressing was applied. There were no immediate complications. FINDINGS: Ultrasound images demonstrate ascites and the catheter within the fluid. IMPRESSION: 1. Successful ultrasound-guided paracentesis yielding 6000 mL of clear yellow fluid. Reviewed, dictated and finalized at location A. NESS BANKING RELATIONSHIP MANAGER IMPRESSION: 1. Successful ultrasound-guided paracentesis yielding 6000 mL of clear yellow f luid.
--- NOTE | ~2023-05-09 | US_ITS ---
EXAMINATION: US paracentesis abd w/image DATE: 05/11/2023 11:28 INDICATION: Ascites. TECHNIQUE: The skin was prepped and draped in sterile fashion. 1% lidocaine was used for local anesth esia. Under ultrasound guidance, a 5 Fr catheter with trochar was advanced into the ascites in the le ft lower quadrant. Fluid was aspirated. The catheter was removed, and a dressing was applied. There w ere no immediate complications. FINDINGS: Ultrasound images demonstrate ascites and the catheter within the fluid. IMPRESSION: 1. Successful ultrasound-guided paracentesis yielding 5000 mL of gio-colored fluid. Reviewed, dictated and finalized at location A. EY VALET
--- NOTE | 2023-05-09 05:47 | ED.GENADULT ---
HPI - General Adult General Chief complaint: Abdominal Pain Stated complaint: Paracentesis History of Present Illness HPI narrative: This is a 53-year-old male is well known to our emergency department presenting for paracentesis. Patient requires multiple paracentesis per week due to his liver cirrhosis. Patient was last drained 2 days ago. Recently diagnosed with multiple PE/DVT. He has been holding his Eliquis for 3 days due to needing a paracentesis. Has some shortness of breath which he typically gets when his abdomen is full of fluid. Denies other complaints. Patient's is recently been put on hospice is tearful during the interview. Related Data Home Medications Medication Instructions Recorded Confirmed potassium chloride 20 mEq 20 meq PO BID 04/11/22 04/13/23 tablet,extended release(part/cryst) ondansetron 4 mg disintegrating 4 mg PO Q4H PRN Nausea 07/16/22 04/13/23 tablet furosemide 40 mg tablet 80 mg PO BID 08/25/22 04/13/23 gabapentin 300 mg capsule 300 mg PO HS 01/21/23 04/13/23 insulin lispro protamine-lispro 5 unit subcut BID 01/21/23 04/13/23 100 unit/mL (75-25) subcutaneous pen pregabalin 75 mg capsule 75 mg PO DAILY 01/21/23 04/13/23 spironolactone 50 mg tablet 100 mg PO Q12H 04/13/23 04/13/23 (Aldactone) Allergies Allergy/AdvReac Type Severity Reaction Status Date / Time ceftriaxone AdvReac Itching Verified 04/13/23 18:48 ciprofloxacin AdvReac Itching Verified 04/13/23 18:48 [facility] Past Medical History Medical History Arthritis C. difficile colitis Cerebrovascular accident (2004) Chronic anemia Cirrhosis of liver with ascites Diarrhea Diastolic congestive heart failure Esophageal varices Gastric ulcer Gastroesophageal reflux disease GI bleed Hyperglycemia Hypertension Kidney stone Leukemia In childhood. Pancreatic abnormality Pericardial effusion Noted on CT and echocardiogram in August 2020. No evidence of tamponade. Portal hypertensive gastropathy Noted on endoscopy on 03/23/[address] Duran. Prostate cancer Status post radiation seed implantation. Smoker Spontaneous bacterial peritonitis (04/2020) Tobacco dependence Type 2 diabetes mellitus Surgical History Surgical History History of appendectomy History of cholecystectomy History of cystoscopy History of inguinal hernia repair History of lithotripsy History of repair of right rotator cuff Family History Family History Mother Breast cancer Father Acute myocardial infarction Heart disease Hypertension Other Diabetes mellitus Maternal Uncle Sibling Family history of malignant neoplasm Social History Social History Social History: Surrogate decision maker: Myra Worley () or Marnie Washington (aunt). Code status: Full code Smoking packs per day: 0.5 Smoking cigarettes per day: 10.0 Years smoked: 35 Smoking pack-years: 17.50 Smoking status: Former smoker Tobacco type: cigarettes Second hand tobacco smoke exposure: No Alcohol intake: former Drinks per week: 0 Alcohol use details: Former beer drinker. Substance use: never Substance use type: does not use Other substance usage details: DECEMBER 16 2022 LAST DRINK- BEER Lack of Transportation: No Lack of Food: Never True Current Housing: I Have Housing Concerned About Future Housing: No Difficulty Paying Gas/Electric Bills: No Difficulty Paying for Meds: No Currently Unemployed: No Education: Bachelor's Degree Difficulty w/ Childcare or Family Care: No Living arrangements: with family Additional living arrangements comments: Resides in [place] with his and son. Additional occupation/education comments: On disability. 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
--- NOTE | 2023-05-09 05:49 | ECG_ITS ---
Measurements Intervals [place] Rate: 109 P: 50 DC: 156 QRS: 31 QRSD: 70 T: 16 QT: 316 QTc: 426 Interpretive Statements SINUS TACHYCARDIA LOW QRS VOLTAGE IN DIFFUSE LEADS ANTERIOR INFARCT, AGE INDETERMINATE BORDERLINE T WAVE ABNORMALITY- INFERIOR LEADS ABNORMAL ECG COMPARED TO ECG 04/12/2023 14:30:47 SINUS TACHYCARDIA NOW PRESENT MYOCARDIAL INFARCT NOW PRESENT Electronically Signed On 05-09-2023 8:40:05 ABSTRACT WRITER by Og Brown D.O.
[2023-05-09 06:16] LABS: Basophils Percent Auto 0.5 % (0.2-1.2); Eosinophils Absolute Auto 0.2 K/mm3 (0-0.3); Eosinophils Percent Auto 3.1 % (0-4.4); Hematocrit 35.3 % (42.0-52.0); Hemoglobin 9.8 g/dL (14.0-18.0); Immature Granulocyte Absolute 0.03 K/mm3 (0.00-0.031); Immature Granulocyte Percent A 0.5 % (0-0.5); Lymphocytes Absolute Auto 0.66 K/mm3 (0.9-3.2); Lymphocytes Percent Auto 10.7 % (18.3-44.2); Mean Corpuscular HGB Conc 27.8 g/dl (32-36); Mean Corpuscular Hemoglobin 24.1 pg (26-34); Mean Corpuscular Volume 86.7 fl (80-100); Mean Platelet Volume 10.9 fl (7.4-10.4); Monocytes Absolute Auto 0.8 K/mm3 (0.1-0.6); Monocytes Percent Auto 12.5 % (2.6-8.5); Neutrophils Absolute Auto 4.5 K/mm3 (1.3-6.7); Neutrophils Percent Auto 72.7 % (45.5-73.1); Platelet Count Result 164 k/mm3 (150-375); Red Blood Count 4.07 M/mm3 (4.6-6.20); Red Cell Distribution Width 17.4 % (11.5-14.5); White Blood Count 6.1 K/mm3 (4.5-10.0)
[2023-05-09] MEDS: HYDROmorphone HCL INJ (*CRX) 1 MG/ML SYR 0.5 MG IV PUSH (06:18)
[2023-05-09 06:20] LABS: Alanine Aminotransferase 10 U/L (6-50); Albumin Level 3.2 g/dL (3.5-5.1); Alkaline Phosphatase 289 U/L (38-126); Anion Gap 8 mmol/L (8-16); Aspartate Amino Transferase 43 U/L (17-59); Bilirubin,Total 0.4 mg/dL (0.2-1.3); Blood Urea Nitrogen 17 mg/dL (9-20); Calcium 8.8 mg/dL (8.4-10.2); Carbon Dioxide 20 mmol/L (22-30); Chloride 107 mmol/L (98-107); Estimated CRCL calculation 82 ml/min; Estimated Glomerular Filt Rate > 60; Glucose 159 mg/dL (65-110); Potassium 5.2 mmol/L (3.4-5.0); Sodium 135 mmol/L (137-145)
[2023-05-09 06:32] LABS: Partial Thromboplastin Time 29.8 SECONDS (22.3-36.8); Prothrombin Time 13.5 Seconds (11.1-14.7)
[2023-05-09 06:38] LABS: Anisocytosis 1+ (NORMAL); Hypochromasia 1+ (NORMAL); Platelet Estimate Adequate (Adequate); Schistocytes None Seen (NORMAL)
--- NOTE | 2023-05-09 08:02 | PC.NURSE ---
Spoke with Lyubov from [place]. She states she is on the phone with the radiologist about the patient's procedure.
--- NOTE | 2023-05-09 08:13 | PM.IMHP ---
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 for pulmonary embolus, who is presenting for abdominal distension and request for another paracenteses due to inadequate removal from the prior one 2 days ago. The patient has an extremely complicated past medical history which includes esophageal varices, gastric ulcers, pericardial effusion, pulmonary hypertension, diabetes, and diastolic congestive heart failure, recent presentation between April 13 and April 16 for a left arm provoked DVT which also showed a left axillary and upper brachial deep venous thrombosis and a subsequent chest CTA obtained for evaluation of tachycardia showed nonocclusive acute segmental and subsegmental emboli in the bilateral lower lobes and left upper lobe. I took care of this patient about 3 weeks ago, and I transferred him to [facility] because the patient had right heart strain on CT scan of his pulmonary embolus. Follow-up echocardiogram showed the patient did not have right heart strain. At [facility] the patient was transitioned from heparin drip to p.o. Eliquis and received multiple paracenteses there. He was discharged on Eliquis and continues to get paracenteses on Eliquis. For some reason, possibly due to the risk of procedure and unwanted risk of abdominal peritonitis infection, the patient has not gotten a PleurX catheter for his abdominal ascites. Over the past few sessions, he has gotten paracenteses while on Eliquis. This was confirmed by the patient. He says he has not taken his Eliquis for the past few days because he cannot find it at home. Also I do not think he understands the ramifications of taking Eliquis. He is mostly concerned with removing fluid from his abdomen. While he has been given some information on holding Eliquis prior to procedures, this is not possible because of his frequent paracenteses. Unfortunately he will need to be on Eliquis or some sort of blood thinner for at least 3 months due to this provoked DVT and submassive pulmonary embolus. During the interview, I also counseled him on the need for PleurX catheter in the abdomen. He will either have to accept the risks of peritonitis with a catheter or commit to ongoing scheduled paracenteses while on Eliquis. Either way he will have to accept the risks of bleeding. The risks of bleeding will be lower with a PleurX catheter due to avoiding the need for continuing intervention with a needle. As an aside, the patient's has recently been made hospice for metastatic breast cancer. She has moved back to his early to be with her sister. The patient has an 8-year-old son that he takes care of at home along with some pats. Review of Systems Review of Systems: See [facility] Past Medical History Medical History Arthritis C. difficile colitis Cerebrovascular accident (2004) Chronic anemia Cirrhosis of liver with ascites Diarrhea Diastolic congestive heart failure Esophageal varices Gastric ulcer Gastroesophageal reflux disease GI bleed Hyperglycemia Hypertension Kidney stone Leukemia In childhood. Pancreatic abnormality Pericardial effusion Noted on CT and echocardiogram in August 2020. No evidence of tamponade. Portal hypertensive gastropathy Noted on endoscopy on 03/23/[address] Duran. Prostate cancer Status post radiation seed implantation. Smoker Spontaneous bacterial peritonitis (04/2020) Tobacco dependence Type 2 diabetes mellitus Surgical History Surgical History History of appendectomy History of cholecystectomy History of cystoscopy History of inguinal hernia repair History of
[2023-05-09] MEDS: MORPHINE SULFATE (*CRX) 2 MG/ML INJ IV PUSH ×5 (08:38→22:14)
--- NOTE | 2023-05-09 08:52 | ADMGEN ---
This patient, Matt Worley II, was admitted to [facility] Surg Room 303-01. Patient/family oriented to hospital policies and general routines including ID bracelet, bed and alarms, visiting hours, pain management, procedures, bathroom and other care routines, personal items, smoking policy, room service/diet, and visiting hours. Information on how to activate the Rapid Response Team has been discussed. Patient/Family are encouraged to report perceived risks to care and to ask questions if they do not understand what they are told or what they should do.
[2023-05-09] MEDS: PREGABALIN (*CRX) 75 MG CAPSULE PO (10:14)
[2023-05-09] MEDS: SPIRONOLACTONE 50 MG TABLET 100 MG PO ×2 (10:14→19:53)
[2023-05-09] MEDS: oxyCODONE HCL (*CRX) 5 MG TAB IR 20 MG PO ×3 (10:15→19:53)
[2023-05-09] MEDS: MIDODRINE HCL 2.5 MG TABLET 5 MG PO ×3 (10:15→16:47)
[2023-05-09] MEDS: FUROSEMIDE 80 MG TABLET PO ×2 (10:15→19:53)
[2023-05-09] MEDS: PANTOPRAZOLE 40 MG TABLET PO ×2 (10:16→19:52)
--- NOTE | 2023-05-09 10:41 | PC.NURSE ---
Patient to ultrasound for paracentesis at 1030.
[2023-05-09 12:50] LABS: Glucose Point of Care 113 mg/dl (65-105)
[2023-05-09] MEDS: APIXABAN 5 MG TABLET PO ×2 (14:52→19:53)
[2023-05-09 16:31] LABS: Glucose Point of Care 146 mg/dl (65-105)
[2023-05-09] MEDS: INSULIN ASPART MIX 70/30 100 UNITS/ML SUB-Q (16:46)
[2023-05-09] MEDS: ALBUMIN HUMAN 25% 25 GM/100 ML 100 ML IVPB (19:43)
[2023-05-09] MEDS: POTASSIUM CHLORIDE 20 MEQ ER TABLET PO (19:52)
[2023-05-09] MEDS: GABAPENTIN 300 MG CAPSULE PO (19:53)
[2023-05-09 20:25] LABS: Glucose Point of Care 134 mg/dl (65-105)
[2023-05-10] VITALS: PULSE 105
[2023-05-10] MEDS: oxyCODONE HCL (*CRX) 5 MG TAB IR 20 MG PO ×6 (00:05→23:34)
[2023-05-10] MEDS: MORPHINE SULFATE (*CRX) 2 MG/ML INJ IV PUSH ×6 (02:20→22:39)
[2023-05-10 04:00] VITALS: PULSE 101
[2023-05-10 05:56] VITALS: BP 109/78; PULSE 96; RESP 12; TEMP 36.3; O2SAT 99
[2023-05-10 06:32] LABS: Basophils Percent Auto 0.8 % (0.2-1.2); Eosinophils Absolute Auto 0.2 K/mm3 (0-0.3); Eosinophils Percent Auto 5.3 % (0-4.4); Hemoglobin 8.3 g/dL (14.0-18.0); Immature Granulocyte Absolute 0.01 K/mm3 (0.00-0.031); Immature Granulocyte Percent A 0.3 % (0-0.5); Immature Platelet Fraction Pct 5.6 % (0.9-11.2); Lymphocytes Absolute Auto 0.74 K/mm3 (0.9-3.2); Lymphocytes Percent Auto 20.7 % (18.3-44.2); Mean Corpuscular HGB Conc 28.6 g/dl (32-36); Mean Corpuscular Hemoglobin 24.1 pg (26-34); Mean Corpuscular Volume 84.3 fl (80-100); Mean Platelet Volume 10.9 fl (7.4-10.4); Monocytes Absolute Auto 0.7 K/mm3 (0.1-0.6); Monocytes Percent Auto 18.2 % (2.6-8.5); Neutrophils Percent Auto 54.7 % (45.5-73.1); Platelet Count Result 131 k/mm3 (150-375); Red Blood Count 3.44 M/mm3 (4.6-6.20); White Blood Count 3.6 K/mm3 (4.5-10.0)
[2023-05-10 06:41] LABS: Alanine Aminotransferase 9 U/L (6-50); Albumin Level 2.9 g/dL (3.5-5.1); Alkaline Phosphatase 197 U/L (38-126); Anion Gap 8 mmol/L (8-16); Aspartate Amino Transferase 28 U/L (17-59); Bilirubin,Total 0.3 mg/dL (0.2-1.3); Blood Urea Nitrogen 20 mg/dL (9-20); Calcium 8.5 mg/dL (8.4-10.2); Carbon Dioxide 22 mmol/L (22-30); Chloride 100 mmol/L (98-107); Estimated CRCL calculation 61 ml/min; Estimated Glomerular Filt Rate > 60; Glucose 128 mg/dL (65-110); Potassium 4.4 mmol/L (3.4-5.0); Sodium 130 mmol/L (137-145)
[2023-05-10 07:05] LABS: Anisocytosis 1+ (NORMAL); Hypochromasia 1+ (NORMAL); Platelet Estimate Adequate (Adequate); Schistocytes None Seen (NORMAL)
[2023-05-10 08:00] VITALS: PULSE 102
[2023-05-10 08:06] LABS: Glucose Point of Care 128 mg/dl (65-105)
[2023-05-10] MEDS: PREGABALIN (*CRX) 75 MG CAPSULE PO (08:42)
[2023-05-10] MEDS: SPIRONOLACTONE 50 MG TABLET 100 MG PO ×2 (08:42→20:32)
[2023-05-10] MEDS: PANTOPRAZOLE 40 MG TABLET PO ×2 (08:42→20:32)
[2023-05-10] MEDS: APIXABAN 5 MG TABLET PO ×2 (08:43→20:32)
[2023-05-10] MEDS: POTASSIUM CHLORIDE 20 MEQ ER TABLET PO ×2 (08:43→20:32)
[2023-05-10] MEDS: MIDODRINE HCL 2.5 MG TABLET 5 MG PO ×3 (08:43→17:09)
[2023-05-10] MEDS: FUROSEMIDE 80 MG TABLET PO ×2 (08:43→20:32)
--- NOTE | 2023-05-10 10:13 | PM.IMPN ---
Progress Note: A&P Assessment and Plan (1) Abdominal ascites: Code(s): R18.8 - Other ascites Status: Acute (2) Left upper extremity deep vein thrombosis: Code(s): I82.622 - Acute embolism and thrombosis of deep veins of left upper extremity Status: Acute (3) Pulmonary emboli: Code(s): I26.99 - Other pulmonary embolism without acute cor pulmonale Status: Acute (4) DVT (deep venous thrombosis): Qualifiers: Affected thrombotic vein of extremity: axillary Chronicity: acute DVT location: upper extremity Laterality: left Qualified Code(s): I82.A12 - Acute embolism and thrombosis of left axillary vein Code(s): I82.409 - Acute embolism and thrombosis of unspecified deep veins of unspecified lower extremity Status: Acute (5) Pulmonary embolism: Qualifiers: Pulmonary embolism type: multiple subsegmental (without acute cor pulmonale) Qualified Code(s): I26.94 - Multiple subsegmental pulmonary emboli without acute cor pulmonale Code(s): I26.99 - Other pulmonary embolism without acute cor pulmonale Status: Acute (6) Cirrhosis: Qualifiers: Ascites presence: with ascites Hepatic cirrhosis type: unspecified hepatic cirrhosis Qualified Code(s): K74.60 - Unspecified cirrhosis of liver; R18.8 - Other ascites Code(s): K74.60 - Unspecified cirrhosis of liver Status: Acute (7) Abdominal ascites: Code(s): R18.8 - Other ascites Status: Acute Plan 1. Abd distention from ascites gets therapeutic tap q2-[address] Bagley from radiology at [place] will be coming in to do the tap here today. I spoke with him on the phone He will give me more information after talking with his partners regarding the patient getting a PleurX catheter for his abdomen The patient will continue getting Eliquis for his pulmonary embolus and DVT.? he will receive paracenteses while on these anticoagulants albumin if needed npo for procedure 05/10: Successful paracentesis under ultrasound with 6L fluid drained with Dr. Bagley. Nonbloody. Pt received 1 dose of 25% 25 gm albumin yesterday with improvement in whole body cramping. Pt requesting repeat procedure today. RN to set up PleurX catheter procedure apparently not performed here. Pt will discuss with IR director tomorrow. 2. PE with DVT continue Eliquis 5 mg b.i.d. 3. Cirrh[address] ct aldactone 100 mg bid and lasix 80 mg bid 4. Hx of varices and recent GI bleed monitor po protonix 5. Hyperglycemia monitoring ISS continue 70/30 insulin bid 5 u 05/10: good bs control 6. Chronic pain, opioid dependence ct oxycodone and prn morphine lyrica 7. Elevated alk phosp 05/10: f/u RUQ u/s. Pt also complaining of midline abd pain radiating up his body. Reports this is new and different compared to prior ascitic pressure pain. 8. Anemia 05/10: f/u add on AM labs for iron deficiency anemia Full code Currently obs. Stopping tele Time Spent With Patient Time: 45 min Subjective Date/time seen: 05/10/23 10:13 Interval history: pt still feels like he has significant ascites. Requesting therapeutic paracentesis again. Says whole body cramping improved with dose of albumin. Exam Narrative: General:?Chronically ill-appearing male sitting up in bed in no acute distress. Weight: 81.1 kg.? BMI: 29.8. HEENT:?Wearing glasses. PERRL, EOMI. Sclera anicteric. Tacky mucous membranes. Neck:??Supple. Respiratory:?Lungs are clear to auscultation bilaterally. Cardiovascular:??Regular rate and rhythm with S1-S2. Gastrointestinal:??Abdomen is slightly firm and protuberant with shifting dullness. Mild tenderness to palpation throughout the abdomen which is not unusual for him. No guarding or rebound tenderness. Skin:??Warm and dry. Sallow. Extremities:??No cyanosis or clubbing. Tight pitting edema from the feet extending the lower flank. Neurological:??Alert.? Cranial nerves 2-12 are grossly intact. No gross
[2023-05-10] MEDS: INSULIN ASPART MIX 70/30 100 UNITS/ML SUB-Q ×2 (10:36→17:10)
[2023-05-10 11:30] LABS: Glucose Point of Care 144 mg/dl (65-105)
[2023-05-10 12:26] LABS: Iron 16 ug/dL (49-181)
[2023-05-10 12:35] LABS: Percent Iron Saturation 5 % (20-50)
[2023-05-10 12:59] LABS: Ferritin 9.48 ng/mL (11.1-264)
[2023-05-10 13:15] VITALS: BP 122/76; PULSE 112; RESP 16; TEMP 36.4; O2SAT 100
[2023-05-10 16:40] LABS: Glucose Point of Care 208 mg/dl (65-105)
[2023-05-10] MEDS: INSULIN ASPART (*BKC) 100 UNITS/ML SUB-Q (17:10)
[2023-05-10 20:13] LABS: Glucose Point of Care 128 mg/dl (65-105)
[2023-05-10] MEDS: GABAPENTIN 300 MG CAPSULE PO (20:33)
[2023-05-10 21:40] VITALS: BP 116/80; PULSE 106; RESP 18; TEMP 36.8; O2SAT 99
[2023-05-11] MEDS: ONDANSETRON HCL ODT 4 MG TABLET PO (01:08)
[2023-05-11] MEDS: MORPHINE SULFATE (*CRX) 2 MG/ML INJ IV PUSH ×3 (02:55→10:22)
[2023-05-11] MEDS: oxyCODONE HCL (*CRX) 5 MG TAB IR 20 MG PO ×3 (05:05→12:49)
[2023-05-11 06:00] VITALS: BP 110/74; PULSE 102; RESP 20; TEMP 36.6; O2SAT 99
[2023-05-11 06:50] LABS: Mean Platelet Volume 11.6 fl (7.4-10.4); Platelet Count Result 125 k/mm3 (150-375)
[2023-05-11 07:03] LABS: INR 1.1; Prothrombin Time 14.5 Seconds (11.1-14.7)
[2023-05-11 07:04] LABS: Partial Thromboplastin Time 31.2 SECONDS (22.3-36.8)
[2023-05-11 07:46] LABS: Glucose Point of Care 144 mg/dl (65-105)
[2023-05-11 08:00] VITALS: O2SAT 99
--- NOTE | 2023-05-11 10:13 | PM.IMPN ---
Progress Note: A&P Assessment and Plan (1) Abdominal ascites: Code(s): R18.8 - Other ascites Status: Acute (2) Left upper extremity deep vein thrombosis: Code(s): I82.622 - Acute embolism and thrombosis of deep veins of left upper extremity Status: Acute (3) Pulmonary emboli: Code(s): I26.99 - Other pulmonary embolism without acute cor pulmonale Status: Acute (4) DVT (deep venous thrombosis): Qualifiers: Affected thrombotic vein of extremity: axillary Chronicity: acute DVT location: upper extremity Laterality: left Qualified Code(s): I82.A12 - Acute embolism and thrombosis of left axillary vein Code(s): I82.409 - Acute embolism and thrombosis of unspecified deep veins of unspecified lower extremity Status: Acute (5) Pulmonary embolism: Qualifiers: Pulmonary embolism type: multiple subsegmental (without acute cor pulmonale) Qualified Code(s): I26.94 - Multiple subsegmental pulmonary emboli without acute cor pulmonale Code(s): I26.99 - Other pulmonary embolism without acute cor pulmonale Status: Acute (6) Cirrhosis: Qualifiers: Ascites presence: with ascites Hepatic cirrhosis type: unspecified hepatic cirrhosis Qualified Code(s): K74.60 - Unspecified cirrhosis of liver; R18.8 - Other ascites Code(s): K74.60 - Unspecified cirrhosis of liver Status: Acute (7) Abdominal ascites: Code(s): R18.8 - Other ascites Status: Acute Plan 1. Abd distention from ascites gets therapeutic tap q2-[address] Bagley from radiology at [place] will be coming in to do the tap here today. I spoke with him on the phone He will give me more information after talking with his partners regarding the patient getting a PleurX catheter for his abdomen The patient will continue getting Eliquis for his pulmonary embolus and DVT.? he will receive paracenteses while on these anticoagulants albumin if needed npo for procedure 05/10: Successful paracentesis under ultrasound with 6L fluid drained with Dr. Bagley. Nonbloody. Pt received 1 dose of 25% 25 gm albumin yesterday with improvement in whole body cramping. Pt requesting repeat procedure today. RN to set up PleurX catheter procedure apparently not performed here. Pt will discuss with IR director tomorrow. 05/11: Paracentesis today. F/u on albumin post tap. F/u on PleurX catheter outpt. 2. PE with DVT continue Eliquis 5 mg b.i.d. 05/11: Reports symptoms of arm claudication due to LUE DVT exacerbated by inconsistent dosing of eliquis due to frequent taps. 3. Cirrhosis ct aldactone 100 mg bid and lasix 80 mg bid 4. Hx of varices and recent GI bleed monitor po protonix 5. Hyperglycemia monitoring ISS continue 70/30 insulin bid 5 u 05/10: good bs control 6. Chronic pain, opioid dependence ct oxycodone and prn morphine lyrica 7. Elevated alk phosp 05/10: f/u RUQ u/s. Pt also complaining of midline abd pain radiating up his body. Reports this is new and different compared to prior ascitic pressure pain. 8. Anemia 05/10: f/u add on AM labs for iron deficiency anemia Full code Currently obs. Stopping tele 05/11: Plan for dc today. Pt has all home meds. Pt plans to home after procedure. Time Spent With Patient Time: 35 min Subjective Date/time seen: 05/11/23 10:13 Interval history: pt wants to go home to visit dying on hospice. Counseled on albumin post paracentesis and following up on pleurx catheter. paracentesis scheduled for 1030 am today. Exam Narrative: General:?Chronically ill-appearing male sitting up in bed in no acute distress. Weight: 81.1 kg.? BMI: 29.8. HEENT:?Wearing glasses. PERRL, EOMI. Sclera anicteric. Tacky mucous membranes. Neck:??Supple. Respiratory:?Lungs are clear to auscultation bilaterally. Cardiovascular:??Regular rate and rhythm with S1-S2. Gastrointestinal:??Abdomen is slightly firm and protuberant with shifting dullness. Mil
[2023-05-11] MEDS: ALBUMIN HUMAN 25% 25 GM/100 ML 100 ML IVPB (11:20)
[2023-05-11 11:22] LABS: Glucose Point of Care 123 mg/dl (65-105)
[2023-05-11] MEDS: MIDODRINE HCL 2.5 MG TABLET 5 MG PO (11:34)
[2023-05-11] MEDS: POTASSIUM CHLORIDE 20 MEQ ER TABLET PO (11:34)
[2023-05-11] MEDS: PANTOPRAZOLE 40 MG TABLET PO (11:34)
[2023-05-11] MEDS: APIXABAN 5 MG TABLET PO (11:34)
[2023-05-11] MEDS: PREGABALIN (*CRX) 75 MG CAPSULE PO (11:35)
[2023-05-11] MEDS: INSULIN ASPART MIX 70/30 100 UNITS/ML SUB-Q (11:37)
--- NOTE | 2023-05-11 12:13 | PM.DS ---
DS: Admitting Diagnosis Discharge Date 05/11/23 Admitting Diagnosis acute abdominal distention, ascites DS: Discharge Diagnosis Discharge Diagnosis (1) Ascites: Code(s): R18.8 - Other ascites Status: Acute (2) Left upper extremity deep vein thrombosis: Code(s): I82.622 - Acute embolism and thrombosis of deep veins of left upper extremity Status: Acute (3) Pulmonary emboli: Code(s): I26.99 - Other pulmonary embolism without acute cor pulmonale Status: Acute (4) DVT (deep venous thrombosis): Qualifiers: Affected thrombotic vein of extremity: axillary Chronicity: acute DVT location: upper extremity Laterality: left Qualified Code(s): I82.A12 - Acute embolism and thrombosis of left axillary vein Code(s): I82.409 - Acute embolism and thrombosis of unspecified deep veins of unspecified lower extremity Status: Acute (5) Pulmonary embolism: Qualifiers: Pulmonary embolism type: multiple subsegmental (without acute cor pulmonale) Qualified Code(s): I26.94 - Multiple subsegmental pulmonary emboli without acute cor pulmonale Code(s): I26.99 - Other pulmonary embolism without acute cor pulmonale Status: Acute (6) KAREN (acute kidney injury): Code(s): N17.9 - Acute kidney failure, unspecified Status: Acute (7) Anasarca: Code(s): R60.1 - Generalized edema Status: Acute (8) Acute generalized abdominal pain: Code(s): R10.84 - Generalized abdominal pain Status: Acute (9) Abdominal ascites: Code(s): R18.8 - Other ascites Status: Acute (10) Cirrhosis: Qualifiers: Ascites presence: with ascites Hepatic cirrhosis type: unspecified hepatic cirrhosis Qualified Code(s): K74.60 - Unspecified cirrhosis of liver; R18.8 - Other ascites Code(s): K74.60 - Unspecified cirrhosis of liver Status: Acute (11) Cirrhosis of liver: Code(s): K74.60 - Unspecified cirrhosis of liver Status: Acute (12) Abdominal ascites: Code(s): R18.8 - Other ascites Status: Acute Plan 1. Abd distention from ascites gets therapeutic tap q2-[address] Bagley from radiology at [place] will be coming in to do the tap here today. I spoke with him on the phone He will give me more information after talking with his partners regarding the patient getting a PleurX catheter for his abdomen The patient will continue getting Eliquis for his pulmonary embolus and DVT.? he will receive paracenteses while on these anticoagulants albumin if needed npo for procedure 05/10: Successful paracentesis under ultrasound with 6L fluid drained with Dr. Bagley. Nonbloody. Pt received 1 dose of 25% 25 gm albumin yesterday with improvement in whole body cramping. Pt requesting repeat procedure today. RN to set up PleurX catheter procedure apparently not performed here. Pt will discuss with IR director tomorrow. 05/11: Paracentesis today. F/u on albumin post tap. F/u on PleurX catheter outpt.? Received 5L paracentesis today which was successful On albumin right now 2. PE with DVT continue Eliquis 5 mg b.i.d. 05/11: Reports symptoms of arm claudication due to LUE DVT exacerbated by inconsistent dosing of eliquis due to frequent taps. 3. Cirrhosis ct aldactone 100 mg bid and lasix 80 mg bid 4. Hx of varices and recent GI bleed monitor po protonix 5. Hyperglycemia monitoring ISS continue 70/30 insulin bid 5 u 05/10: good bs control 6. Chronic pain, opioid dependence ct oxycodone and prn morphine lyrica 7. Elevated alk phosp 05/10: f/u RUQ u/s. Pt also complaining of midline abd pain radiating up his body. Reports this is new and different compared to prior ascitic pressure pain. 8. Anemia 05/10: f/u add on AM labs for iron deficiency anemia Full code Currently obs. Stopping tele 05/11: Plan for dc today. Pt has all home meds. Pt plans to home after procedure. Time Spent With Patient Time: 35
== END 2023-05-11 13:30 | disposition home or self-care (01) ==
LOC: ANHED 06:52 → ANH3MEDSUR 10:16
PROVIDERS: Admitting Provider Internal Medicine; Emergency Provider Emergency Medicine; PCP Hospitalist; Visit Provider Internal Medicine
DX: R18.8 Other ascites (principal); K74.60 Unspecified cirrhosis of liver; I26.94 Multiple subsegmental thrombotic pulmonary emboli without acute cor pulmonale; I82.A12 Acute embolism and thrombosis of left axillary vein; N17.9 Acute kidney failure, unspecified; R10.84 Generalized abdominal pain; G89.29 Other chronic pain; D64.9 Anemia, unspecified; K21.9 Gastro-esophageal reflux disease without esophagitis; R11.2 Nausea with vomiting, unspecified; I11.0 Hypertensive heart disease with heart failure; I50.32 Chronic diastolic (congestive) heart failure; R94.31 Abnormal electrocardiogram [ECG] [EKG]; E11.9 Type 2 diabetes mellitus without complications; Z86.73 Personal history of transient ischemic attack (TIA), and cerebral infarction without residual deficits; Z87.891 Personal history of nicotine dependence; Z79.891 Long term (current) use of opiate analgesic; Z79.4 Long term (current) use of insulin; Z79.01 Long term (current) use of anticoagulants; Z79.899 Other long term (current) drug therapy
CPT/HCPCS: 36415; 49083; 76705; 80053; 82728; 82948; 83540; 83550; 85025; 85049; 85055; 85610; 85730; 93005; 96374; 99285; A9270; G0378; G0379; J1170; J1815; J2270; P9047

== ENCOUNTER 2023-05-15 22:55 | Emergency (ER) | payer MEDICAID, SELFPAY ==
--- NOTE | ~2023-05-15 | CT_ITS ---
EXAMINATION: CT abdomen pelvis w con DATE: 05/16/2023 00:35 INDICATION: Abdominal pain TECHNIQUE: Computed tomography (CT) of the abdomen and pelvis was performed without intravenous contr ast. Automated exposure control and iterative reconstruction technique were employed. The dose-length product was 553.87 mGy-cm. COMPARISON: 01/25/2023 FINDINGS: Lung bases are clear. Subacute appearing ununited posterolateral right ninth rib fracture and old hea led posterolateral right 10th rib fracture. Small sliding-type hiatal hernia. Cirrhotic liver with fi ne liver surface nodularity. Recanalized umbilical vein consistent with secondary portal venous hyper tension. Additional likely secondary splenomegaly measuring 17 cm craniocaudal length. Cholecystectom y clips at the gallbladder fossa. Pancreas, bilateral adrenal glands and kidneys are normal. Suture l ine near the tip the cecum consistent with prior appendectomy. No bowel obstruction. Again seen is mi ld diffuse wall thickening of the small bowel likely related to interstitial edema which along with d iffuse mesenteric edema is likely related to liver disease and portal venous hypertension. Small to m oderate amount of ascites scattered throughout the abdomen and pelvis as well as extending into a sma ll umbilical hernia. Partially decompressed bladder is unremarkable. Mild to moderate lumbar and lowe r thoracic spondylosis with chronic mild to moderate T10-T12 compression fractures. IMPRESSION: 1. Cirrhosis with splenomegaly consistent with secondary portal venous hypertension. 2. Small to moderate amount of ascites, likely edematous diffuse wall thickening of the small bowel a nd mesenteric edema likely related to liver disease. Reviewed, dictated and finalized at location A. ER COASTER ENGINEER IMPRESSION: 1. Cirrhosis with splenomegaly consistent with secondary portal venous hyperten mark. 2. Small to moderate amount of ascites, likely edematous diffuse wall thickenin g of the small bowel and mesenteric edema likely related to liver disease.
[2023-05-15 22:53] VITALS: BP 134/102; PULSE 112; RESP 12; TEMP 36.8; O2SAT 100
[2023-05-15 23:01] VITALS: PULSE 108; RESP 10; O2SAT 100
[2023-05-15 23:15] VITALS: PULSE 118; RESP 18; O2SAT 99
[2023-05-15 23:30] VITALS: PULSE 113; RESP 18; O2SAT 99
[2023-05-15] MEDS: HYDROmorphone HCL INJ (*CRX) 1 MG/ML SYR IV PUSH (23:44)
[2023-05-15 23:45] VITALS: BP 125/85; PULSE 111; RESP 13; O2SAT 100
[2023-05-15 23:46] VITALS: PULSE 109; RESP 13; O2SAT 100
[2023-05-15 23:55] LABS: Basophils Absolute Auto 0.1 K/mm3 (0.0-0.1); Basophils Percent Auto 0.9 % (0.2-1.2); Eosinophils Absolute Auto 0.2 K/mm3 (0-0.3); Eosinophils Percent Auto 3.1 % (0-4.4); Hematocrit 31.7 % (42.0-52.0); Hemoglobin 8.7 g/dL (14.0-18.0); Immature Granulocyte Absolute 0.01 K/mm3 (0.00-0.031); Immature Granulocyte Percent A 0.2 % (0-0.5); Lymphocytes Absolute Auto 0.72 K/mm3 (0.9-3.2); Lymphocytes Percent Auto 13.3 % (18.3-44.2); Mean Corpuscular HGB Conc 27.4 g/dl (32-36); Mean Corpuscular Hemoglobin 23.5 pg (26-34); Mean Corpuscular Volume 85.7 fl (80-100); Mean Platelet Volume 12.1 fl (7.4-10.4); Monocytes Absolute Auto 0.7 K/mm3 (0.1-0.6); Monocytes Percent Auto 12.9 % (2.6-8.5); Neutrophils Absolute Auto 3.8 K/mm3 (1.3-6.7); Neutrophils Percent Auto 69.6 % (45.5-73.1); Platelet Count Result 145 k/mm3 (150-375); Red Cell Distribution Width 16.6 % (11.5-14.5); White Blood Count 5.4 K/mm3 (4.5-10.0)
[2023-05-16] VITALS (12 sets, daily range): BP systolic 117–136; BP diastolic 77–90; PULSE 109–128; RESP 14–20; O2SAT 97–100
[2023-05-16 00:03] LABS: Alanine Aminotransferase 15 U/L (6-50); Albumin Level 3.3 g/dL (3.5-5.1); Alkaline Phosphatase 226 U/L (38-126); Anion Gap 9 mmol/L (8-16); Aspartate Amino Transferase 53 U/L (17-59); Bilirubin,Total 0.5 mg/dL (0.2-1.3); Blood Urea Nitrogen 22 mg/dL (9-20); Calcium 8.4 mg/dL (8.4-10.2); Carbon Dioxide 14 mmol/L (22-30); Chloride 111 mmol/L (98-107); Estimated CRCL calculation 61 ml/min; Estimated Glomerular Filt Rate > 60; Glucose 150 mg/dL (65-110); Lipase 78 U/L (23-300); Potassium 5.6 mmol/L (3.4-5.0); Sodium 134 mmol/L (137-145)
[2023-05-16 00:05] LABS: INR 1.2; Partial Thromboplastin Time 35.3 SECONDS (22.3-36.8); Prothrombin Time 16.3 Seconds (11.1-14.7)
[2023-05-16 01:13] LABS: Appearance Urine Clear (Clear); Bilirubin Urine Negative (Negative); Blood Urine Negative (Negative); Color Urine Yellow (Yellow); Glucose Urine UA Negative (Negative); Ketones Urine Negative (Negative); Leukocyte Esterase Ur Negative LEU/UL (Negative); Nitrate Urine Negative (Negative); Protein Urine Negative (Negative); Specific Grav Ur 1.023 (1.001-1.035); Urobilinogen Urine 0.2 mg/dL (<2.0)
--- NOTE | 2023-05-16 01:31 | ED.GENADULT ---
HPI - General Adult General Chief complaint: Abdominal Pain Stated complaint: abd pain Time Seen by Provider: 05/15/23 23:25 History of Present Illness HPI narrative: Yet patient is a 53-year-old gentleman presents emergency department chief complaint of abdominal pain. Patient reports that he had a paracentesis earlier and noticed that he had some bloody drainage out of the area that leaks after the paracentesis. The patient reports that he is on anticoagulants due to a pulmonary embolism and DVT the patient reports that he is having abdominal pain afterwards Related Data Home Medications Medication Instructions Recorded Confirmed potassium chloride 20 mEq 20 meq PO BID 04/11/22 05/09/23 tablet,extended release(part/cryst) ondansetron 4 mg disintegrating 4 mg PO Q4H PRN Nausea 07/16/22 05/09/23 tablet furosemide 40 mg tablet 80 mg PO BID 08/25/22 05/09/23 gabapentin 300 mg capsule 300 mg PO HS 01/21/23 05/09/23 insulin lispro protamine-lispro 5 unit subcut BID 01/21/23 05/09/23 100 unit/mL (75-25) subcutaneous pen pregabalin 75 mg capsule 75 mg PO DAILY 01/21/23 05/09/23 spironolactone 50 mg tablet 100 mg PO Q12H 04/13/23 05/09/23 (Aldactone) apixaban 5 mg tablet (Eliquis) 5 mg PO BID 05/09/23 05/09/23 Allergies Allergy/AdvReac Type Severity Reaction Status Date / Time ceftriaxone AdvReac Itching Verified 04/13/23 18:48 ciprofloxacin AdvReac Itching Verified 04/13/23 18:48 Review of Systems Review of Systems: A 10 system review of systems was completed on the patient and is negative except for what is stated in the HPI. Nursing and ancillary documentation was reviewed. [facility] Past Medical History Medical History Arthritis C. difficile colitis Cerebrovascular accident (2004) Chronic anemia Cirrhosis of liver with ascites Diarrhea Diastolic congestive heart failure Esophageal varices Gastric ulcer Gastroesophageal reflux disease GI bleed Hyperglycemia Hypertension Kidney stone Leukemia In childhood. Pancreatic abnormality Pericardial effusion Noted on CT and echocardiogram in August 2020. No evidence of tamponade. Portal hypertensive gastropathy Noted on endoscopy on 03/23/[address] Duran. Prostate cancer Status post radiation seed implantation. Smoker Spontaneous bacterial peritonitis (04/2020) Tobacco dependence Type 2 diabetes mellitus Surgical History Surgical History History of appendectomy History of cholecystectomy History of cystoscopy History of inguinal hernia repair History of lithotripsy History of repair of right rotator cuff Family History Family History Mother Breast cancer Father Acute myocardial infarction Heart disease Hypertension Other Diabetes mellitus Maternal Uncle Sibling Family history of malignant neoplasm Social History Social History Social History: Surrogate decision maker: Myra Worley () or Marnie Felix (aunt). Code status: Full code Smoking packs per day: 0.25 Smoking cigarettes per day: 5.0 Years smoked: 35 Smoking pack-years: 8.75 Smoking status: Light tobacco smoker Tobacco type: cigarettes Second hand tobacco smoke exposure: No Additional smoking assessment comments: 3 cig per day Alcohol intake: former Drinks per week: 0 Alcohol use details: Former beer drinker. Substance use: never Substance use type: does not use Other substance usage details: DECEMBER 16 2022 LAST DRINK- BEER Lack of Transportation: No Lack of Food: Never True Current Housing: I Have Housing Concerned About Future Housing: No Difficulty Paying Gas/Electric Bills: No Difficulty Paying for Meds: No Currently Unemployed: No Education: High S
[2023-05-16] MEDS: HYDROmorphone HCL INJ (*CRX) 1 MG/ML SYR IV PUSH (01:55)
[2023-05-16 02:02] LABS: Add Urine Microscopic? NO
== END 2023-05-16 02:51 | disposition home or self-care (01) ==
PROVIDERS: Emergency Provider Emergency Medicine; PCP Hospitalist
DX: K74.60 Unspecified cirrhosis of liver (principal); R18.8 Other ascites; D64.9 Anemia, unspecified; I50.30 Unspecified diastolic (congestive) heart failure; I11.0 Hypertensive heart disease with heart failure; K21.9 Gastro-esophageal reflux disease without esophagitis; F17.210 Nicotine dependence, cigarettes, uncomplicated; Z87.442 Personal history of urinary calculi; Z86.73 Personal history of transient ischemic attack (TIA), and cerebral infarction without residual deficits; Z86.718 Personal history of other venous thrombosis and embolism; Z86.711 Personal history of pulmonary embolism; Z85.46 Personal history of malignant neoplasm of prostate; Z85.6 Personal history of leukemia; Z90.49 Acquired absence of other specified parts of digestive tract; Z79.01 Long term (current) use of anticoagulants; Z79.4 Long term (current) use of insulin; R16.1 Splenomegaly, not elsewhere classified
CPT/HCPCS: 36415; 74177; 80053; 81003; 83605; 83690; 85025; 85610; 85730; 96374; 99284; J1170; Q9967

== ENCOUNTER 2023-05-17 01:20 | Emergency (ER) | payer MEDICAID, SELFPAY ==
--- NOTE | ~2023-05-17 | XR_ITS ---
EXAMINATION: XR humerus LT, XR shoulder LT min 2V DATE: 05/17/2023 02:39 INDICATION: Mid left humeral pain post fall TECHNIQUE: 1. AP internally rotated, AP externally rotated, Grashey and transscapular Y views of the left should er were obtained 2. AP and lateral views of the left humerus were obtained. COMPARISON: Left shoulder radiographs dated 08/03/2018 FINDINGS: Nondisplaced mildly impacted transverse fracture across the surgical neck of the proximal left humeru s. Likely extension across the base of the greater tuberosity which remains nondisplaced. There is wi dening of the left glenohumeral joint space suggesting a glenohumeral joint effusion. Additional acut e appearing minimally displaced fractures of the left eighth and ninth ribs which were present at the time of the CT from one day prior. Stable appearance of a chronic left scapular deformity. Mild left acromioclavicular osteoarthritis. Left lung remains clear with no evident associated pneumothorax or left pleural effusion. IMPRESSION: 1. 1 part fracture of the proximal left humerus with nondisplaced fracture of the uterus surgical nec k potentially also involving the greater tuberosity and likely associated minimal joint effusion. 2. Relatively recent minimally displaced left eighth and ninth rib fractures. Reviewed, dictated and finalized at location A. ING OFFICER IMPRESSION: 1. 1 part fracture of the proximal left humerus with nondisplaced fracture of t he uterus surgical neck potentially also involving the greater tuberosity and l ikely associated minimal joint effusion. 2. Relatively recent minimally displaced left eighth and ninth rib fractures.
[2023-05-17 01:26] VITALS: BP 133/81; PULSE 119; RESP 16; TEMP 36.2; O2SAT 100
--- NOTE | 2023-05-17 03:30 | PC.NURSE ---
Patient does not want arm elevated.
[2023-05-17] MEDS: HYDROmorphone HCL INJ (*CRX) 1 MG/ML SYR IV PUSH ×2 (03:47→04:35)
--- NOTE | 2023-05-17 04:14 | ED.GENADULT ---
HPI - General Adult General Chief complaint: Extremity Injury, Upper Stated complaint: fall and injured L arm Time Seen by Provider: 05/17/23 03:26 History of Present Illness HPI narrative: patient is a 53-year-old gentleman presents to emergency department chief complaint of left shoulder pain. Patient reports that he tripped and fell over his son's aden device the patient had no loss of conscious reports that he struck his left shoulder reports he also has pain in the back of his ribs Related Data Home Medications Medication Instructions Recorded Confirmed potassium chloride 20 mEq 20 meq PO BID 04/11/22 05/09/23 tablet,extended release(part/cryst) ondansetron 4 mg disintegrating 4 mg PO Q4H PRN Nausea 07/16/22 05/09/23 tablet furosemide 40 mg tablet 80 mg PO BID 08/25/22 05/09/23 gabapentin 300 mg capsule 300 mg PO HS 01/21/23 05/09/23 insulin lispro protamine-lispro 5 unit subcut BID 01/21/23 05/09/23 100 unit/mL (75-25) subcutaneous pen pregabalin 75 mg capsule 75 mg PO DAILY 01/21/23 05/09/23 spironolactone 50 mg tablet 100 mg PO Q12H 04/13/23 05/09/23 (Aldactone) apixaban 5 mg tablet (Eliquis) 5 mg PO BID 05/09/23 05/09/23 Allergies Allergy/AdvReac Type Severity Reaction Status Date / Time ceftriaxone AdvReac Itching Verified 04/13/23 18:48 ciprofloxacin AdvReac Itching Verified 04/13/23 18:48 Review of Systems Review of Systems: A 10 system review of systems was completed on the patient and is negative except for what is stated in the HPI. Nursing and ancillary documentation was reviewed. [facility] Past Medical History Medical History Arthritis C. difficile colitis Cerebrovascular accident (2004) Chronic anemia Cirrhosis of liver with ascites Diarrhea Diastolic congestive heart failure Esophageal varices Gastric ulcer Gastroesophageal reflux disease GI bleed Hyperglycemia Hypertension Kidney stone Leukemia In childhood. Pancreatic abnormality Pericardial effusion Noted on CT and echocardiogram in August 2020. No evidence of tamponade. Portal hypertensive gastropathy Noted on endoscopy on 03/23/[address] Duran. Prostate cancer Status post radiation seed implantation. Smoker Spontaneous bacterial peritonitis (04/2020) Tobacco dependence Type 2 diabetes mellitus Surgical History Surgical History History of appendectomy History of cholecystectomy History of cystoscopy History of inguinal hernia repair History of lithotripsy History of repair of right rotator cuff Family History Family History Mother Breast cancer Father Acute myocardial infarction Heart disease Hypertension Other Diabetes mellitus Maternal Uncle Sibling Family history of malignant neoplasm Social History Social History Social History: Surrogate decision maker: Myra Josephuss () or Marnie Felix (aunt). Code status: Full code Smoking packs per day: 0.25 Smoking cigarettes per day: 5.0 Years smoked: 35 Smoking pack-years: 8.75 Smoking status: Light tobacco smoker Tobacco type: cigarettes Second hand tobacco smoke exposure: No Additional smoking assessment comments: 3 cig per day Alcohol intake: former Drinks per week: 0 Alcohol use details: Former beer drinker. Substance use: never Substance use type: does not use Other substance usage details: DECEMBER 16 2022 LAST DRINK- BEER Lack of Transportation: No Lack of Food: Never True Current Housing: I Have Housing Concerned About Future Housing: No Difficulty Paying Gas/Electric Bills: No Difficulty Paying for Meds: No Currently Unemployed: No Education: High School Diploma/GED Difficulty w/ Childcare or Family Care: No Lisa
[2023-05-17 04:59] VITALS: BP 134/84; PULSE 101; RESP 16; O2SAT 100
== END 2023-05-17 05:01 | disposition home or self-care (01) ==
PROVIDERS: Emergency Provider Emergency Medicine; PCP Hospitalist
DX: S42.215A Unspecified nondisplaced fracture of surgical neck of left humerus, initial encounter for closed fracture (principal); S22.42XA Multiple fractures of ribs, left side, initial encounter for closed fracture; I50.30 Unspecified diastolic (congestive) heart failure; I11.0 Hypertensive heart disease with heart failure; E11.9 Type 2 diabetes mellitus without complications; K74.60 Unspecified cirrhosis of liver; K21.9 Gastro-esophageal reflux disease without esophagitis; D64.9 Anemia, unspecified; M19.90 Unspecified osteoarthritis, unspecified site; F17.210 Nicotine dependence, cigarettes, uncomplicated; Z85.6 Personal history of leukemia; Z85.46 Personal history of malignant neoplasm of prostate; Z87.442 Personal history of urinary calculi; Z92.3 Personal history of irradiation; Z86.73 Personal history of transient ischemic attack (TIA), and cerebral infarction without residual deficits; Z79.01 Long term (current) use of anticoagulants; Z79.4 Long term (current) use of insulin; W18.09XA Striking against other object with subsequent fall, initial encounter
CPT/HCPCS: 73030; 73060; 96374; 96376; 99284; J1170

== ENCOUNTER 2023-05-18 10:40 | Emergency (ER) | payer MEDICAID, SELFPAY ==
[2023-05-18 11:15] VITALS: BP 129/80; PULSE 102; RESP 16; TEMP 36.6; O2SAT 100
--- NOTE | 2023-05-18 13:45 | ED.GENADULT ---
HPI - General Adult General Chief complaint: Unspecified Stated complaint: Displaced fx, blood clot Time Seen by Provider: 05/18/23 13:18 History of Present Illness HPI narrative: patient is is a 53-year-old male who presents ER with left shoulder pain. He had a fall a couple days ago resulting in a proximal humerus fracture. He has had imaging. No new numbness or tingling. Has had some mild edema his hand. His history DVT in that arm is currently on anticoagulation. Reports when he moves he has sudden pain in his shoulder that feels sharp intense. Feels like a spasm. He has been taking his oxycodone at home. Related Data Home Medications Medication Instructions Recorded Confirmed potassium chloride 20 mEq 20 meq PO BID 04/11/22 05/09/23 tablet,extended release(part/cryst) ondansetron 4 mg disintegrating 4 mg PO Q4H PRN Nausea 07/16/22 05/09/23 tablet furosemide 40 mg tablet 80 mg PO BID 08/25/22 05/09/23 gabapentin 300 mg capsule 300 mg PO HS 01/21/23 05/09/23 insulin lispro protamine-lispro 5 unit subcut BID 01/21/23 05/09/23 100 unit/mL (75-25) subcutaneous pen pregabalin 75 mg capsule 75 mg PO DAILY 01/21/23 05/09/23 spironolactone 50 mg tablet 100 mg PO Q12H 04/13/23 05/09/23 (Aldactone) apixaban 5 mg tablet (Eliquis) 5 mg PO BID 05/09/23 05/09/23 Allergies Allergy/AdvReac Type Severity Reaction Status Date / Time ceftriaxone AdvReac Itching Verified 05/18/23 13:21 ciprofloxacin AdvReac Itching Verified 05/18/23 13:21 Review of Systems Constitutional: Constitutional: Reports no additional constitutional complaints Cardiovascular: Cardiovascular: Reports no additional cardiovascular complaints Respiratory: Respiratory: Reports no additional respiratory complaints Musculoskeletal: Musculoskeletal: Reports arthralgias, Denies joint swelling, Reports muscle cramps, Denies numbness and Denies tingling Neurologic: Reports system reviewed and no additional complaints, except as documented PMFSH Past Medical History Medical History Arthritis C. difficile colitis Cerebrovascular accident (2004) Chronic anemia Cirrhosis of liver with ascites Diarrhea Diastolic congestive heart failure Esophageal varices Gastric ulcer Gastroesophageal reflux disease GI bleed Hyperglycemia Hypertension Kidney stone Leukemia In childhood. Pancreatic abnormality Pericardial effusion Noted on CT and echocardiogram in August 2020. No evidence of tamponade. Portal hypertensive gastropathy Noted on endoscopy on 03/23/[address] Duran. Prostate cancer Status post radiation seed implantation. Smoker Spontaneous bacterial peritonitis (04/2020) Tobacco dependence Type 2 diabetes mellitus Surgical History Surgical History History of appendectomy History of cholecystectomy History of cystoscopy History of inguinal hernia repair History of lithotripsy History of repair of right rotator cuff Family History Family History Mother Breast cancer Father Acute myocardial infarction Heart disease Hypertension Other Diabetes mellitus Maternal Uncle Sibling Family history of malignant neoplasm Social History Social History Social History: Surrogate decision maker: Myra Worley () or Marnie Washington (aunt). Code status: Full code Smoking packs per day: 0.25 Smoking cigarettes per day: 5.0 Years smoked: 35 Smoking pack-years: 8.75 Smoking status: Light tobacco smoker Tobacco type: cigarettes Second hand tobacco smoke exposure: No Additional smoking assessment comments: 3 cig per day Alcohol intake: former Drinks per week: 0 Alcohol use details: Former beer drinker. Substance use: never Substance use type: mejia
[2023-05-18] MEDS: CYCLOBENZAPRINE HCL 10 MG TABLET PO (14:10)
== END 2023-05-18 14:19 | disposition home or self-care (01) ==
LOC: ANHED 13:48
PROVIDERS: Emergency Provider Emergency Medicine; PCP Hospitalist
DX: S42.202D Unspecified fracture of upper end of left humerus, subsequent encounter for fracture with routine healing (principal); I50.30 Unspecified diastolic (congestive) heart failure; I11.0 Hypertensive heart disease with heart failure; E11.9 Type 2 diabetes mellitus without complications; K74.60 Unspecified cirrhosis of liver; K21.9 Gastro-esophageal reflux disease without esophagitis; D64.9 Anemia, unspecified; M19.90 Unspecified osteoarthritis, unspecified site; F17.210 Nicotine dependence, cigarettes, uncomplicated; Z85.6 Personal history of leukemia; Z85.46 Personal history of malignant neoplasm of prostate; Z86.718 Personal history of other venous thrombosis and embolism; Z87.442 Personal history of urinary calculi; Z92.3 Personal history of irradiation; Z86.73 Personal history of transient ischemic attack (TIA), and cerebral infarction without residual deficits; Z90.49 Acquired absence of other specified parts of digestive tract; Z79.01 Long term (current) use of anticoagulants; Z79.4 Long term (current) use of insulin; W19.XXXD Unspecified fall, subsequent encounter
CPT/HCPCS: 99282; 99284; A4565; A9270

== ENCOUNTER 2023-05-22 21:32 | Observation (INO) | payer MEDICAID, SELFPAY ==
--- NOTE | ~2023-05-22 | XR_ITS ---
EXAMINATION: XR shoulder LT min 2V INDICATION: Left shoulder pain, recent fracture. TECHNIQUE: Three views of the left shoulder are submitted. COMPARISON: 05/17/2023 FINDINGS: Again noted is a transverse fracture involving the surgical neck of the proximal left humer us. The greater tuberosity appears to exist as a separate fracture fragment. Widening of the glenohum eral joint space persists, suggesting joint effusion. There is mild osteoarthritis of the acromioclav icular joint. No new fracture is identified. Minimally displaced fractures of the left eighth and lilian th ribs are also stable. Soft tissues are unremarkable. IMPRESSION: 1. Comminuted fracture of the proximal left humerus without significant change. Reviewed, dictated and finalized at location F. PING WEIGHER
--- NOTE | ~2023-05-22 | US_ITS ---
EXAMINATION: US paracentesis abd w/image DATE: 05/25/2023 14:01 INDICATION: Ascites. TECHNIQUE: The skin was prepped and draped in sterile fashion. 1% lidocaine was used for local anest hesia. Under ultrasound guidance, a 5 Fr catheter with trochar was advanced into the ascites in the r ight lower quadrant. Fluid was aspirated. The catheter was removed, and a dressing was applied. There were no immediate complications. FINDINGS: Ultrasound images demonstrate ascites and the catheter within the fluid. IMPRESSION: 1. Successful ultrasound-guided paracentesis yielding 4000 mL of clear yellow fluid. Reviewed, dictated and finalized at location A. LE PUMPER
--- NOTE | ~2023-05-22 | XR_ITS ---
EXAMINATION: XR humerus LT INDICATION: Left humerus pain, initial encounter TECHNIQUE: Two views of the left humerus are obtained on three radiographs. COMPARISON: 05/17/2023 FINDINGS: Again noted is a transverse fracture involving the surgical neck of the proximal left humer us. The greater tuberosity appears to exist as a separate fracture fragment. Widening of the glenohum eral joint space persists, suggesting joint effusion. There is mild osteoarthritis of the acromioclav icular joint. No new fracture is identified. Minimally displaced fractures of the left eighth and lilian th ribs are also stable. There is soft tissue swelling of the elbow without acute abnormality seen on the elbow views are nonstandard. IMPRESSION: 1. Comminuted fracture of the proximal humerus. 2. Elbow grossly normal but views are nonstandard. Consider dedicated elbow imaging if there is high clinical suspicion for fracture. Reviewed, dictated and finalized at location F. EMIOLOGY INTERN IMPRESSION: 1. Comminuted fracture of the proximal humerus. 2. Elbow grossly normal but views are nonstandard. Consider dedicated elbow ilene ging if there is high clinical suspicion for fracture.
--- NOTE | ~2023-05-22 | US_ITS ---
EXAMINATION: US paracentesis abd w/image DATE: 05/23/2023 14:24 INDICATION: Ascites. TECHNIQUE: The procedure and its risks and benefits were discussed with the patient. Potential risks discussed included bleeding and infection. The skin was prepared and draped in sterile fashion. 1% li docaine was used for local anesthesia. Under ultrasound guidance, a 5 Fr catheter with trochar was ad vanced into the ascites in the right lower quadrant. Fluid was aspirated into vacuum bottles. The cat heter was removed, and a dressing was applied. There were no immediate complications. FINDINGS: Ultrasound images demonstrate ascites and the catheter within the fluid. IMPRESSION: 1. Successful ultrasound-guided paracentesis yielding 5000 mL of clear yellow fluid. Reviewed, dictated and finalized at location A. D PANNER IMPRESSION: 1. Successful ultrasound-guided paracentesis yielding 5000 mL of clear yellow f luid.
[2023-05-22 21:42] VITALS: BP 121/84; PULSE 110; RESP 22; TEMP 36.3; O2SAT 100
[2023-05-22 22:32] VITALS: PULSE 110; O2SAT 100
[2023-05-23 01:14] VITALS: BP 123/94; PULSE 103; O2SAT 100
[2023-05-23] MEDS: HYDROmorphone HCL INJ (*CRX) 1 MG/ML SYR IM (02:46)
[2023-05-23 02:53] LABS: Basophils Percent Auto 0.5 % (0.2-1.2); Eosinophils Absolute Auto 0.2 K/mm3 (0-0.3); Eosinophils Percent Auto 2.6 % (0-4.4); Hematocrit 32.7 % (42.0-52.0); Immature Granulocyte Absolute 0.05 K/mm3 (0.00-0.031); Immature Granulocyte Percent A 0.9 % (0-0.5); Lymphocytes Absolute Auto 0.64 K/mm3 (0.9-3.2); Lymphocytes Percent Auto 11.2 % (18.3-44.2); Mean Corpuscular HGB Conc 27.5 g/dl (32-36); Mean Corpuscular Hemoglobin 23.8 pg (26-34); Mean Corpuscular Volume 86.5 fl (80-100); Mean Platelet Volume 9.9 fl (7.4-10.4); Monocytes Absolute Auto 0.6 K/mm3 (0.1-0.6); Monocytes Percent Auto 10.7 % (2.6-8.5); Neutrophils Absolute Auto 4.2 K/mm3 (1.3-6.7); Neutrophils Percent Auto 74.1 % (45.5-73.1); Platelet Count Result 137 k/mm3 (150-375); Red Blood Count 3.78 M/mm3 (4.6-6.20); Red Cell Distribution Width 19.2 % (11.5-14.5); White Blood Count 5.7 K/mm3 (4.5-10.0)
[2023-05-23 03:11] LABS: Alanine Aminotransferase 14 U/L (6-50); Albumin Level 2.9 g/dL (3.5-5.1); Alkaline Phosphatase 269 U/L (38-126); Anion Gap 4 mmol/L (8-16); Aspartate Amino Transferase 34 U/L (17-59); Bilirubin,Total 0.4 mg/dL (0.2-1.3); Blood Urea Nitrogen 16 mg/dL (9-20); Calcium 8.6 mg/dL (8.4-10.2); Carbon Dioxide 21 mmol/L (22-30); Chloride 107 mmol/L (98-107); Estimated CRCL calculation 93 ml/min; Estimated Glomerular Filt Rate > 60; Glucose 119 mg/dL (65-110); Potassium 4.5 mmol/L (3.4-5.0); Sodium 132 mmol/L (137-145)
[2023-05-23 03:22] LABS: INR 1.1; Prothrombin Time 14.6 Seconds (11.1-14.7)
[2023-05-23 03:23] LABS: Partial Thromboplastin Time 36.9 SECONDS (22.3-36.8)
--- NOTE | 2023-05-23 03:24 | ED.GENADULT ---
HPI - General Adult General Chief complaint: Fall Stated complaint: fall, shoulder pain Time Seen by Provider: 05/23/23 01:34 History of Present Illness HPI narrative: This is a 53-year-old male well known to our emergency department for almost daily paracentesis presenting with arm pain and abdominal distension. Patient fell and broke his humerus several days ago. He then tripped again today landing on his arm is in significant pain. He took some oxycodone at home with no relief. Additionally the patient has a distended abdomen. He has end-stage liver disease and requires a daily or [id number] paracentesis. Patient's recently and he has not been able to schedule his typical paracentesis. Related Data Home Medications Medication Instructions Recorded Confirmed potassium chloride 20 mEq 20 meq PO BID 04/11/22 05/09/23 tablet,extended release(part/cryst) ondansetron 4 mg disintegrating 4 mg PO Q4H PRN Nausea 07/16/22 05/09/23 tablet furosemide 40 mg tablet 80 mg PO BID 08/25/22 05/09/23 gabapentin 300 mg capsule 300 mg PO HS 01/21/23 05/09/23 insulin lispro protamine-lispro 5 unit subcut BID 01/21/23 05/09/23 100 unit/mL (75-25) subcutaneous pen pregabalin 75 mg capsule 75 mg PO DAILY 01/21/23 05/09/23 spironolactone 50 mg tablet 100 mg PO Q12H 04/13/23 05/09/23 (Aldactone) apixaban 5 mg tablet (Eliquis) 5 mg PO BID 05/09/23 05/09/23 Allergies Allergy/AdvReac Type Severity Reaction Status Date / Time ceftriaxone AdvReac Itching Verified 05/23/23 01:17 ciprofloxacin AdvReac Itching Verified 05/23/23 01:17 [facility] Past Medical History Medical History Arthritis C. difficile colitis Cerebrovascular accident (2004) Chronic anemia Cirrhosis of liver with ascites Diarrhea Diastolic congestive heart failure Esophageal varices Gastric ulcer Gastroesophageal reflux disease GI bleed Hyperglycemia Hypertension Kidney stone Leukemia In childhood. Pancreatic abnormality Pericardial effusion Noted on CT and echocardiogram in August 2020. No evidence of tamponade. Portal hypertensive gastropathy Noted on endoscopy on 03/23/[address] Duran. Prostate cancer Status post radiation seed implantation. Smoker Spontaneous bacterial peritonitis (04/2020) Tobacco dependence Type 2 diabetes mellitus Surgical History Surgical History History of appendectomy History of cholecystectomy History of cystoscopy History of inguinal hernia repair History of lithotripsy History of repair of right rotator cuff Family History Family History Mother Breast cancer Father Acute myocardial infarction Heart disease Hypertension Other Diabetes mellitus Maternal Uncle Sibling Family history of malignant neoplasm Social History Social History Social History: Surrogate decision maker: Myra Worley () or Marnie Felix (aunt). Code status: Full code Smoking packs per day: 0.25 Smoking cigarettes per day: 5.0 Years smoked: 35 Smoking pack-years: 8.75 Smoking status: Light tobacco smoker Tobacco type: cigarettes Second hand tobacco smoke exposure: No Additional smoking assessment comments: 3 cig per day Alcohol intake: former Drinks per week: 0 Alcohol use details: Former beer drinker. Substance use: never Substance use type: does not use Other substance usage details: DECEMBER 16 2022 LAST DRINK- BEER Lack of Transportation: No Lack of Food: Never True Current Housing: I Have Housing Concerned About Future Housing: No Difficulty Paying Gas/Electric Bills: No Difficulty Paying for Meds: No Currently Unemployed: No Education: High School Diploma/GED Difficulty w/ Childcare or Family Care: No Living arrangements: w
[2023-05-23 04:15] VITALS: BP 110/82; PULSE 102; O2SAT 100
[2023-05-23] MEDS: HYDROmorphone HCL INJ (*CRX) 1 MG/ML SYR IV PUSH ×5 (04:50→20:54)
--- NOTE | 2023-05-23 05:16 | ADMGEN ---
This patient, Matt Worley II, was admitted to [facility] Surg Room 322-01. Patient/family oriented to hospital policies and general routines including ID bracelet, bed and alarms, visiting hours, pain management, procedures, bathroom and other care routines, personal items, smoking policy, room service/diet, and visiting hours. Information on how to activate the Rapid Response Team has been discussed. Patient/Family are encouraged to report perceived risks to care and to ask questions if they do not understand what they are told or what they should do.
[2023-05-23 05:20] VITALS: BP 122/98; PULSE 106; RESP 20; TEMP 36; O2SAT 97
[2023-05-23 06:10] VITALS: BMI 29.6
[2023-05-23 09:07] VITALS: O2SAT 93
--- NOTE | 2023-05-23 10:30 | PM.IMPN ---
Progress Note: A&P Assessment and Plan (1) Fracture of neck of humerus: Code(s): S42.213A - Unspecified displaced fracture of surgical neck of unspecified humerus, initial encounter for closed fracture Status: Acute Assessment and Plan: Consult Orthopedic, continue with the sling. Pain control. (2) Abdominal ascites: Code(s): R18.8 - Other ascites Status: Acute Assessment and Plan: Continue home medications and schedule patient for paracentesis. (3) History of deep vein thrombosis: Code(s): Z86.718 - Personal history of other venous thrombosis and embolism Status: Acute Assessment and Plan: Continue with Eliquis and monitor closely. (4) History of diabetes mellitus: Code(s): Z86.39 - Personal history of other endocrine, nutritional and metabolic disease Status: Acute Assessment and Plan: Continue home medication monitor glucose. Subjective Date/time seen: 05/23/23 10:30 Interval history: Patient was seen during the morning rounds today. Patient pain is under control. Patient is feeling sling in the left arm. No shortness of breath or chest pain. Mood stable. Review of Systems Review of Systems: All systems reviewed & are unremarkable except as noted in HPI and below (the history and physical examination) Exam Narrative: APPEARANCE:? Jaundiced Head: atraumatic. EYES:? EOMI, NOSE: Atraumatic NECK: Trachea midline RESPIRATORY: No increased rate of breathing CARDIOVASCULAR: RRR, ABDOMINAL:? Distended, umbilical hernia, nontender MUSCULOSKELETAl:? Left arm sling, no obvious deformity, tenderness over the upper humerus NEURO: Alert. Moving 4/4 extremities SKIN:: Warm, dry. Normal color PSYCHIATRIC: Normal affect Objective Data Vital Signs Vital Signs: Vital Signs - 24 hr 05/22/23 21:42 05/22/23 22:32 05/23/23 01:14 Temperature 36.3 C L Pulse Rate 110 H 110 H 103 H Respiratory Rate 22 H Blood Pressure 121/84 123/94 H Pulse Oximetry 100 100 100 Oxygen Delivery Room Air 05/23/23 04:15 05/23/23 05:20 05/23/23 08:00 Temperature 36.0 C L Pulse Rate 102 H 106 H Respiratory Rate 20 Blood Pressure 110/82 122/98 H Pulse Oximetry 100 97 Oxygen Delivery Room Air Meds/Results Medications: Active Medications Generic Name Dose Route Start Last Admin Trade Name Freq PRN Reason Stop Dose Admin Hydromorphone HCl 1 mg 05/23/23 03:46 05/23/23 08:52 Hydromorphone Hcl Inj (*Crx) 1 Mg/Ml Syr IV PUSH 1 mg Q4H PRN Administration Pain Rated 7-10 Radiology Results: ITS Impressions Humerus X-Ray 05/23/23 06:30 IMPRESSION: 1. Comminuted fracture of the proximal humerus. 2. Elbow grossly normal but views are nonstandard. Consider dedicated elbow imaging if there is high clinical suspicion for fracture. Shoulder X-Ray 05/23/23 06:33 IMPRESSION: 1. Comminuted fracture of the proximal left humerus without significant change. Labs Labs: Laboratory Results - last 24 hr 05/23/23 02:45 WBC 5.7 RBC 3.78 L Hgb 9.0 L Hct 32.7 L MCV 86.5 MCH 23.8 L MCHC 27.5 L RDW 19.2 H Plt Count 137 L MPV 9.9 Immature Gran % (Auto) 0.9 H Neut % (Auto) 74.1 H Lymph % (Auto) 11.2 L [place] % (Auto) 10.7 H Eos % (Auto) 2.6 Baso % (Auto) 0.5 Lymph # (Auto) 0.64 L [place] # (Auto) 0.6 Eos # (Auto) 0.2 Baso # (Auto) 0.0 Abs Immat Gran (auto) 0.05 H Absolute Neuts (auto) 4.2 Absolute Nucleated RBC 0.0 Nucleated RBC % 0.0 PT 14.6 INR 1.1 APTT 36.9 H Sodium 132 L Potassium 4.5 Chloride 107 Carbon Dioxide 21 L Anion Gap 4 L BUN 16 Creatinine 0.70 Estim Creat Clear Calc 93 Estimated GFR > 60 Glucose 119 H Calcium 8.6 Total Bilirubin 0.4 AST 34 ALT 14 Alkaline Phosphatase 269 H Total Protein 6.0 L Albumin 2.9 L Quality VTE Prophylaxis VTE prophylaxis: pharmacologic ordered
[2023-05-23] MEDS: SPIRONOLACTONE 50 MG TABLET 100 MG PO ×2 (11:29→22:04)
[2023-05-23] MEDS: APIXABAN 5 MG TABLET PO ×2 (11:29→16:44)
[2023-05-23] MEDS: oxyCODONE HCL (*CRX) 5 MG TAB IR 20 MG PO ×4 (11:29→22:04)
[2023-05-23] MEDS: PANTOPRAZOLE 40 MG TABLET PO ×2 (11:29→20:52)
[2023-05-23] MEDS: FUROSEMIDE 40 MG TABLET 80 MG PO ×2 (11:29→16:44)
[2023-05-23 11:40] LABS: Glucose Point of Care 167 mg/dl (65-105)
[2023-05-23] MEDS: MIDODRINE HCL 2.5 MG TABLET 5 MG PO ×2 (12:44→16:44)
[2023-05-23 14:00] VITALS: BP 125/53; PULSE 94; RESP 16; TEMP 36; O2SAT 95
--- NOTE | 2023-05-23 15:30 | PM.CNOR ---
Assessment and Plan Assessment and plan (1) Closed fracture of left proximal humerus: Qualifiers: Encounter type: initial encounter Fracture morphology: other fracture Fracture alignment: displaced Qualified Code(s): S42.292A - Other displaced fracture of upper end of left humerus, initial encounter for closed fracture Code(s): S42.202A - Unspecified fracture of upper end of left humerus, initial encounter for closed fracture Status: Acute Assessment and Plan: New patient evaluation status post injury left shoulder. The history, physical exam and radiographs reviewed with the patient. Type of fracture discussed in detail. left proximal comminuted Humerus fracture. Treatment options including operative and non operative treatment reviewed. Risks, benefits and alternatives of each treatment discussed in detail. The patient has declined surgical treatment. Risks of treatment decision discussed in detail. Potential problems with displacement of the fracture, loss of alignment, nonunion, malunion and dysfunction discussed in detail. The patient's questions were answered. They verbalized understanding and agreement. Conservative treatment with immobilization, ice, pain control. gentle pendulum exercises reviewed. Sling for immobilization. May adjust p.r.n.. Follow up in orthopedic office in 2-3 weeks. History of Present Illness HPI Consult date: 05/23/23 Requesting physician: Luis Peralta MD Consult reason: fracture ( Left shoulder) Chief complaint: ascites Narrative: 53-year-old with liver disease fell onto left shoulder last week. Seen in the emergency room on May 17 and noted to have left proximal humerus fracture. Subsequently fell again on the left shoulder. He was seen in the emergency room yesterday and admitted for shoulder pain and ascites. Denies numbness or tingling left arm. Complains of left shoulder pain. He is [id number]. Review of Systems Constitutional: Constitutional: Denies fever(s) Eyes: Eyes: Denies blurry vision ENT: Reports Normal hearing present Cardiovascular: Cardiovascular: Denies chest pain and Denies dyspnea Respiratory: Respiratory: Denies dyspnea and Denies wheezing Gastrointestinal: Gastrointestinal: Denies abdominal pain Genitourinary: Genitourinary: Denies urinary urgency Musculoskeletal: Musculoskeletal: Reports as per HPI and Denies numbness Integumentary/Breasts: Skin/Breast: Denies changing lesions and Denies sores Neurologic: Reports Normal hearing present, Denies behavioral changes, Denies confusion, Denies numbness and Denies convulsions Psychiatric: Psychiatric: Denies behavioral changes, Denies confusion and Denies hallucinations Endocrine: Endocrine: Denies heat intolerance Hematologic/Lymphatic: Hematologic/Lymphatic: Denies easy bleeding Allergic/Immunologic: Allergic/Immunologic: Denies wheezing PMF Past Medical History Medical History (Updated 05/23/23 @ 15:33 by Carter Christie MD) Arthritis C. difficile colitis Cerebrovascular accident (2004) Chronic anemia Cirrhosis of liver with ascites Closed fracture of left proximal humerus Diarrhea Diastolic congestive heart failure Esophageal varices Gastric ulcer Gastroesophageal reflux disease GI bleed Hyperglycemia Hypertension Kidney stone Leukemia In childhood. Pancreatic abnormality Pericardial effusion Noted on CT and echocardiogram in August 2020. No evidence of tamponade. Portal hypertensive gastropathy Noted on endoscopy on 03/23/[address] Duran. Prostate cancer Status post radiation seed implantation. Smoker Spontaneous bacterial peritonitis (04/2020) Tobacco dependence Type 2 diabetes mellitus Surgical History Surgical History History of appendectomy History of cholecystectomy History of cystoscopy History of inguinal hernia repair History of lithotripsy Histo
[2023-05-23 16:16] LABS: Glucose Point of Care 156 mg/dl (65-105)
[2023-05-23] MEDS: POTASSIUM CHLORIDE 20 MEQ ER TABLET PO (16:44)
[2023-05-23] MEDS: GABAPENTIN 300 MG CAPSULE PO (20:52)
[2023-05-23 21:23] LABS: Glucose Point of Care 144 mg/dl (65-105)
[2023-05-23 21:30] VITALS: BP 117/85; PULSE 108; RESP 18; TEMP 35.9; O2SAT 100
[2023-05-24] MEDS: HYDROmorphone HCL INJ (*CRX) 1 MG/ML SYR IV PUSH ×6 (01:14→22:01)
[2023-05-24] MEDS: oxyCODONE HCL (*CRX) 5 MG TAB IR 20 MG PO ×6 (02:45→23:11)
[2023-05-24 04:30] VITALS: BP 111/80; PULSE 108; RESP 22; TEMP 36.3; O2SAT 100
[2023-05-24 07:57] LABS: Glucose Point of Care 144 mg/dl (65-105)
--- NOTE | 2023-05-24 09:14 | PM.IMPN ---
Progress Note: A&P Assessment and Plan (1) Fracture of neck of humerus: Code(s): S42.213A - Unspecified displaced fracture of surgical neck of unspecified humerus, initial encounter for closed fracture Status: Acute Assessment and Plan: Orthopedic consult noted, continue with the sling. Pain control. (2) Abdominal ascites: Code(s): R18.8 - Other ascites Status: Acute Assessment and Plan: Continue home medications and schedule patient for paracentesis. (3) History of deep vein thrombosis: Code(s): Z86.718 - Personal history of other venous thrombosis and embolism Status: Acute Assessment and Plan: Continue with Eliquis and monitor closely. (4) History of diabetes mellitus: Code(s): Z86.39 - Personal history of other endocrine, nutritional and metabolic disease Status: Acute Assessment and Plan: Continue home medication monitor glucose. Subjective Date/time seen: 05/24/23 09:14 Interval history: Patient was seen during the morning rounds today. No new overnight complaints. Patient pain is under control. Patient is feeling sling in the left arm. No shortness of breath or chest pain. Abdomen distended secondary to ascites. Mood stable. Review of Systems Review of Systems: All systems reviewed & are unremarkable except as noted in HPI and below (the history and physical examination) Exam Narrative: APPEARANCE:? Jaundiced Head: atraumatic. EYES:? EOMI, NOSE: Atraumatic NECK: Trachea midline RESPIRATORY: No increased rate of breathing CARDIOVASCULAR: RRR, ABDOMINAL:? Distended, umbilical hernia, nontender MUSCULOSKELETAl:? Left arm sling, no obvious deformity, tenderness over the upper humerus NEURO: Alert. Moving 4/4 extremities SKIN:: Warm, dry. Normal color PSYCHIATRIC: Normal affect Objective Data Vital Signs Vital Signs: Vital Signs - 24 hr 05/23/23 14:00 05/23/23 20:00 05/23/23 21:30 Temperature 36.0 C L 35.9 C L Pulse Rate 94 108 H Respiratory Rate 16 18 Blood Pressure 125/53 L 117/85 Pulse Oximetry 95 100 Oxygen Delivery Room Air 05/24/23 04:30 Temperature 36.3 C L Pulse Rate 108 H Respiratory Rate 22 H Blood Pressure 111/80 Pulse Oximetry 100 Oxygen Delivery Intake/Output Intake/Output: Intake & Output 05/21/23 05/22/23 05/23/23 05/24/23 23:59 23:59 23:59 23:59 Intake Total 720 1608 Output Total 5000 Balance -4280 1608 Meds/Results Medications: Active Medications Generic Name Dose Route Start Last Admin Trade Name Freq PRN Reason Stop Dose Admin Apixaban 5 mg 05/23/23 10:40 05/23/23 16:44 Apixaban 5 Mg Tablet PO 5 mg BID FORTINO Administration Dextrose 12.5 gm 05/23/23 11:01 Dextrose 50% 25 Gm/50 Ml Syringe IV PUSH PRN PRN Hypoglycemia Protocol Furosemide 80 mg 05/23/23 10:40 05/23/23 16:44 Furosemide 40 Mg Tablet PO 80 mg BID FORTINO Administration Gabapentin 300 mg 05/23/23 21:00 05/23/23 20:52 Gabapentin 300 Mg Capsule PO 300 mg HS FORTINO Administration Glucagon 1 mg 05/23/23 11:01 Glucagon For Inj 1 Mg Vial IM PRN PRN Hypoglycemia Protocol Glucose 15 gm 05/23/23 11:01 Glucose Oral Gel 15 Gm Of Glucse In 37.5 Gm Tube PO PRN PRN Hypoglycemia Protocol Hydromorphone HCl 1 mg 05/23/23 03:46 05/24/23 05:13 Hydromorphone Hcl Inj (*Crx) 1 Mg/Ml Syr IV PUSH 1 mg Q4H PRN Administration Pain Rated 7-10 Dextrose 1,000 mls @ 100 mls/hr 05/23/23 11:01 Dextrose 5% 1,000 Ml IVPB PRN PRN Hypoglycemia Protocol Insulin Aspart 3 - 6 units 05/23/23 12:00 05/24/23 08:39 Insulin Aspart (*Bkc) 100 Units/Ml SUB-Q Not Given TIDWM FORTINO Protocol Insulin Aspart 1 - 3 units 05/23/23 21:00 05/23/23 21:15 Insulin Aspart (*Bkc) 100 Units/Ml SUB-Q Not Given HS FORTINO Protocol Midodrine 5 mg 05/23/23 13:00 05/23/23 16:44 Midodrine Hc
[2023-05-24] MEDS: MIDODRINE HCL 2.5 MG TABLET 5 MG PO ×3 (09:51→17:57)
[2023-05-24] MEDS: APIXABAN 5 MG TABLET PO ×2 (09:51→17:56)
[2023-05-24] MEDS: POTASSIUM CHLORIDE 20 MEQ ER TABLET PO ×2 (09:51→17:57)
[2023-05-24] MEDS: SPIRONOLACTONE 50 MG TABLET 100 MG PO ×2 (09:51→23:11)
[2023-05-24] MEDS: PANTOPRAZOLE 40 MG TABLET PO ×2 (09:51→20:58)
[2023-05-24] MEDS: FUROSEMIDE 40 MG TABLET 80 MG PO (09:51)
[2023-05-24 11:43] LABS: Glucose Point of Care 197 mg/dl (65-105)
[2023-05-24] MEDS: MORPHINE SULFATE (*CRX) 2 MG/ML INJ IV PUSH (12:54)
[2023-05-24 14:00] VITALS: BP 108/62; PULSE 108; RESP 14; TEMP 36.8; O2SAT 98
[2023-05-24 20:58] VITALS: BP 112/75; PULSE 107; RESP 16; TEMP 36.7; O2SAT 100
[2023-05-24] MEDS: GABAPENTIN 300 MG CAPSULE PO (20:58)
[2023-05-24 21:07] LABS: Glucose Point of Care 159 mg/dl (65-105)
[2023-05-25] MEDS: HYDROmorphone HCL INJ (*CRX) 1 MG/ML SYR IV PUSH ×5 (02:08→22:01)
[2023-05-25] MEDS: oxyCODONE HCL (*CRX) 5 MG TAB IR 20 MG PO ×6 (03:20→22:32)
[2023-05-25 05:23] VITALS: BP 110/77; PULSE 99; RESP 15; TEMP 36.2; O2SAT 100
[2023-05-25 06:55] LABS: Basophils Percent Auto 0.7 % (0.2-1.2); Eosinophils Absolute Auto 0.1 K/mm3 (0-0.3); Eosinophils Percent Auto 2.4 % (0-4.4); Hematocrit 29.2 % (42.0-52.0); Hemoglobin 8.3 g/dL (14.0-18.0); Immature Granulocyte Absolute 0.03 K/mm3 (0.00-0.031); Immature Granulocyte Percent A 0.7 % (0-0.5); Lymphocytes Absolute Auto 0.55 K/mm3 (0.9-3.2); Lymphocytes Percent Auto 13.3 % (18.3-44.2); Mean Corpuscular HGB Conc 28.4 g/dl (32-36); Mean Corpuscular Hemoglobin 24.2 pg (26-34); Mean Corpuscular Volume 85.1 fl (80-100); Mean Platelet Volume 10.7 fl (7.4-10.4); Monocytes Absolute Auto 0.6 K/mm3 (0.1-0.6); Monocytes Percent Auto 15.2 % (2.6-8.5); Neutrophils Absolute Auto 2.8 K/mm3 (1.3-6.7); Neutrophils Percent Auto 67.7 % (45.5-73.1); Platelet Count Result 135 k/mm3 (150-375); Red Blood Count 3.43 M/mm3 (4.6-6.20); White Blood Count 4.1 K/mm3 (4.5-10.0)
[2023-05-25 07:08] LABS: Alanine Aminotransferase 12 U/L (6-50); Albumin Level 2.9 g/dL (3.5-5.1); Alkaline Phosphatase 219 U/L (38-126); Anion Gap 3 mmol/L (8-16); Aspartate Amino Transferase 27 U/L (17-59); Bilirubin,Total 0.4 mg/dL (0.2-1.3); Blood Urea Nitrogen 18 mg/dL (9-20); Calcium 8.2 mg/dL (8.4-10.2); Carbon Dioxide 22 mmol/L (22-30); Chloride 102 mmol/L (98-107); Estimated CRCL calculation 68 ml/min; Estimated Glomerular Filt Rate > 60; Glucose 142 mg/dL (65-110); Potassium 4.6 mmol/L (3.4-5.0); Sodium 127 mmol/L (137-145)
[2023-05-25 07:43] LABS: Glucose Point of Care 142 mg/dl (65-105)
[2023-05-25 08:00] VITALS: PULSE 99; RESP 15; O2SAT 100
[2023-05-25 08:36] LABS: Anisocytosis 1+ (NORMAL); Poikilocytosis 1+ (NORMAL)
[2023-05-25 08:37] LABS: Schistocytes Rare (NORMAL)
[2023-05-25] MEDS: MIDODRINE HCL 2.5 MG TABLET 5 MG PO ×3 (08:45→17:17)
[2023-05-25] MEDS: PANTOPRAZOLE 40 MG TABLET PO ×2 (08:45→20:25)
[2023-05-25] MEDS: APIXABAN 5 MG TABLET PO ×2 (08:45→17:17)
[2023-05-25] MEDS: POTASSIUM CHLORIDE 20 MEQ ER TABLET PO ×2 (08:45→17:17)
[2023-05-25] MEDS: FUROSEMIDE 40 MG TABLET 80 MG PO ×2 (08:45→17:17)
[2023-05-25 11:34] LABS: Glucose Point of Care 152 mg/dl (65-105)
[2023-05-25] MEDS: SPIRONOLACTONE 50 MG TABLET 100 MG PO ×2 (11:46→22:31)
--- NOTE | 2023-05-25 12:13 | PM.IMPN ---
Progress Note: A&P Assessment and Plan (1) Fracture of neck of humerus: Code(s): S42.213A - Unspecified displaced fracture of surgical neck of unspecified humerus, initial encounter for closed fracture Status: Acute Assessment and Plan: Patient with known left humerus fracture. Ortho was consulted and appreciate their input. The patient has declined surgical treatment. Continue conservative treatment with immobilization, ice and pain control. Plans to follow-up in orthopedic office in 2-3 weeks. (2) Abdominal ascites: Code(s): R18.8 - Other ascites Status: Acute Assessment and Plan: Related to cirrhosis. He has paracentesis daily or every other day. Recommend he follow-up with his pharmaceutical specialty representative to discuss permanent abd catheter. Paracentesis today. (3) History of deep vein thrombosis: Code(s): Z86.718 - Personal history of other venous thrombosis and embolism Status: Acute Assessment and Plan: Patietn with hx of recent LUE. Doppler on 04/12 showing left axillary and upper brachial DVT. Continue with Ly (4) History of diabetes mellitus: Code(s): Z86.39 - Personal history of other endocrine, nutritional and metabolic disease Status: Acute Assessment and Plan: The patient's blood glucose was reviewed on 05/25 Glucose remains reasonably well controlled. Continue AccuCheks covering with sliding scale. Hypoglycemia protocol available as needed. Continue current medications Subjective Date/time seen: 05/25/23 12:13 Interval history: 53yo male with cirrhosis, dCHF, DM and recent left humerus fx here for a fall. Assuming care. Chart reviewed. Having more pain in the left arm. Is supposed to have paracentesis today and has this almost every day Exam Narrative: AF 97.2 110/77 99 15 100% ra Gen - NARD Chest - few basilar crackles. nml RR CV - RRR S1/S2 Abd - Soft, distended, +BS, bag attached to the right lower abdomen with serous fluid in bag Ext - No pedal edema. left arm in a sling. nml left family service caseworker. Neuro - Alert and oriented. normal sensation to the left hand Psych - Nml mood and affect Skin - Warm and dry Objective Data Vital Signs Vital Signs: Vital Signs - 24 hr 05/24/23 14:00 05/24/23 20:58 05/25/23 05:23 Temperature 98.2 F 98.1 F 97.2 F L Pulse Rate 108 H 107 H 99 Respiratory Rate 14 16 15 Blood Pressure 108/62 112/75 110/77 Pulse Oximetry 98 100 100 Oxygen Delivery 05/25/23 08:00 Temperature Pulse Rate 99 Respiratory Rate 15 Blood Pressure Pulse Oximetry 100 Oxygen Delivery Room Air Intake/Output Intake/Output: Intake & Output 05/22/23 05/23/23 05/24/23 05/25/23 23:59 23:59 23:59 23:59 Intake Total 720 2348 240 Output Total 5000 475 300 Balance -4280 1873 -60 Meds/Results Medications: Active Medications Generic Name Dose Route Start Last Admin Trade Name Freq PRN Reason Stop Dose Admin Apixaban 5 mg 05/23/23 10:40 05/25/23 08:45 Apixaban 5 Mg Tablet PO 5 mg BID FORTINO Administration Dextrose 12.5 gm 05/23/23 11:01 Dextrose 50% 25 Gm/50 Ml Syringe IV PUSH PRN PRN Hypoglycemia Protocol Furosemide 80 mg 05/23/23 10:40 05/25/23 08:45 Furosemide 40 Mg Tablet PO 80 mg BID FORTINO Administration Gabapentin 300 mg 05/23/23 21:00 05/24/23 20:58 Gabapentin 300 Mg Capsule PO 300 mg HS FORTINO Administration Glucagon 1 mg 05/23/23 11:01 Glucagon For Inj 1 Mg Vial IM PRN PRN Hypoglycemia Protocol Glucose 15 gm 05/23/23 11:01 Glucose Oral Gel 15 Gm Of Glucse In 37.5 Gm Tube PO PRN PRN Hypoglycemia Protocol Hydromorphone HCl 1 mg 05/23/23 03:46 05/25/23 09:59 Hydromorphone Hcl Inj (*Crx) 1 Mg/Ml Syr IV PUSH 1 mg Q4H PRN Administration Pain Rated 7-10 Dextrose 1,000 mls @ 100 mls/hr 05/23/23 11:01 Dextrose 5% 1,000 Ml IVPB PRN PRN Hypoglycemia
[2023-05-25 14:00] VITALS: BP 116/74; PULSE 96; RESP 16; TEMP 36.6; O2SAT 100
[2023-05-25] MEDS: ALBUMIN HUMAN 25% 25 GM/100 ML 100 ML IVPB (14:22)
[2023-05-25 16:52] LABS: Glucose Point of Care 112 mg/dl (65-105)
[2023-05-25] MEDS: ONDANSETRON INJ 4 MG/2 ML VIAL IV PUSH (20:18)
[2023-05-25] MEDS: GABAPENTIN 300 MG CAPSULE PO (20:26)
[2023-05-25 21:24] LABS: Glucose Point of Care 180 mg/dl (65-105)
[2023-05-25 21:54] VITALS: BP 106/67; PULSE 106; RESP 14; TEMP 36.2; O2SAT 97
[2023-05-26] MEDS: HYDROmorphone HCL INJ (*CRX) 1 MG/ML SYR IV PUSH ×4 (02:03→14:13)
[2023-05-26] MEDS: oxyCODONE HCL (*CRX) 5 MG TAB IR 20 MG PO ×3 (02:31→11:26)
[2023-05-26 06:00] VITALS: BP 96/75; PULSE 100; RESP 14; TEMP 36.2; O2SAT 97
[2023-05-26 07:53] LABS: Glucose Point of Care 154 mg/dl (65-105)
[2023-05-26] MEDS: APIXABAN 5 MG TABLET PO (09:56)
[2023-05-26] MEDS: SPIRONOLACTONE 50 MG TABLET 100 MG PO (09:56)
[2023-05-26] MEDS: PANTOPRAZOLE 40 MG TABLET PO (09:57)
[2023-05-26] MEDS: POTASSIUM CHLORIDE 20 MEQ ER TABLET PO (09:57)
[2023-05-26] MEDS: MIDODRINE HCL 2.5 MG TABLET 5 MG PO ×2 (09:57→13:46)
[2023-05-26] MEDS: FUROSEMIDE 40 MG TABLET 80 MG PO (09:57)
[2023-05-26 11:52] LABS: Glucose Point of Care 148 mg/dl (65-105)
--- NOTE | 2023-05-26 13:19 | PM.DS ---
DS: Admitting Diagnosis Discharge Date 05/26/23 Admitting Diagnosis Fall DS: Discharge Diagnosis Discharge Diagnosis (1) Fracture of neck of humerus: Code(s): S42.213A - Unspecified displaced fracture of surgical neck of unspecified humerus, initial encounter for closed fracture Status: Acute (2) Abdominal ascites: Code(s): R18.8 - Other ascites Status: Acute (3) History of deep vein thrombosis: Code(s): Z86.718 - Personal history of other venous thrombosis and embolism Status: Acute (4) History of diabetes mellitus: Code(s): Z86.39 - Personal history of other endocrine, nutritional and metabolic disease Status: Acute DS: Summary Hospital Course Reason for hospitalization: 53yo male with cirrhosis, dCHF, DM and recent left humerus fx here for a fall.?Please see H&P for details. Hospital Course: Patient with known left humerus fracture.? Ortho was consulted and appreciate their input.? The patient had declined surgical treatment.? We continued conservative treatment with immobilization, ice and pain control.?Patient to follow-up in orthopedic office in 2-3 weeks.?He has chronic abdominal ascites related to cirrhosis.? He has paracentesis daily or every other day.?Paracentesis performed twice here. Recommend he follow-up with his technical writing lead/mgr to discuss permanent abd catheter. Patient with hx of recent LUE. Doppler on 04/12 showing left axillary and upper brachial DVT. We continued with Eliquis. He is up ambulating in the room unassisted. He overall did well and was able to be discharged on 05/26/23 Status at Discharge Cognitive/behavioral status at discharge: stable Time Spent with Patient Time attestation: Total time spent providing and/or coordinating discharge services: 35 minutes Time spent: Greater than 30 minutes Exam Narrative: AF 97.1 96/75 100 14 97% ra Gen - NARD Chest - CTA bilaterally, nml RR CV - RRR S1/S2 Abd - Soft, distended, +BS, bags attached to the right lower abdomen with serous fluid in bags Ext - No pedal edema. left arm in a sling. nml left director athletic. Psych - Nml mood and affect Skin - Warm and dry DS: Data Data Completed and Pending Labs on day of discharge: Labs from last 24 hours 12/12/23 12/12/23 12/11/23 11:47 07:50 20:31 POC Capillary Glucose 148 H 154 H 180 H 05/25/23 16:49 POC Capillary Glucose 112 H Discharge Plan Discharge Attending physician on discharge: Xu Parra Consulting providers: Parish Bagley; Carter Christie Discharging Clinician: Xu Parra Anticipated Discharge Date/Time: 05/26/23 13:24 Patient Disposition: Home, Self-Care Activity: as tolerated Diet: low protein Discharge Instructions: Please check glucose before meals and before bed. Record and bring into your doctor for review. Take precautions to avoid falls. Rise slowly from a lying or sitting position. Pause before standing or walking. Contact your doctor or call 911 and come to the Emergency Room if you have any type of trauma, lightheadedness with standing or other worrisome symptoms. Avoid NSAIDs (ibuprofen, naproxen, Aleve). Follow-up with your primary care provider in 1-2 weeks. Please call for appointment. Follow-up with orthopedics in 2-3 weeks. Please call for an appointment Thank you for using [facility] for your health care needs. Patient Instructions: Antibiotic Form, Apixaban (By mouth) Stand Alone Forms: General Discharge Information Follow-up/Referrals: Bisi,MD Matt [Primary Care Provider] - Call for Appointment Carter Christie MD [Physician] - Call for Appointment Discharge Medications: Continued potassium chloride 20 mEq tablet,ER particles/crystals 20 meq PO BID midodrine 2.5 mg Tablet 5 mg PO TID 30 Days Qty: 180 0RF oxycodone 20 mg tablet 20 mg PO Q4H 14 Days Qty: 84 0RF furosemide 40 mg tablet 80 mg P
[2023-05-26 14:00] VITALS: BP 98/65; PULSE 110; RESP 16; TEMP 36.9; O2SAT 94
== END 2023-05-26 16:00 | disposition home or self-care (01) ==
LOC: ANHED 05-23 03:32 → ANH3MEDSUR 05-23 05:19
PROVIDERS: Internal Medicine; Admitting Provider Internal Medicine; Emergency Provider Emergency Medicine; PCP Hospitalist; Visit Provider Internal Medicine
DX: S42.212A Unspecified displaced fracture of surgical neck of left humerus, initial encounter for closed fracture (principal); W19.XXXA Unspecified fall, initial encounter; R18.8 Other ascites; K72.10 Chronic hepatic failure without coma; K74.69 Other cirrhosis of liver; D64.9 Anemia, unspecified; I11.0 Hypertensive heart disease with heart failure; I50.30 Unspecified diastolic (congestive) heart failure; K21.9 Gastro-esophageal reflux disease without esophagitis; E11.65 Type 2 diabetes mellitus with hyperglycemia; F17.210 Nicotine dependence, cigarettes, uncomplicated; Z86.39 Personal history of other endocrine, nutritional and metabolic disease; Z86.718 Personal history of other venous thrombosis and embolism; Z86.73 Personal history of transient ischemic attack (TIA), and cerebral infarction without residual deficits; Z82.49 Family history of ischemic heart disease and other diseases of the circulatory system; Z83.3 Family history of diabetes mellitus; Z84.89 Family history of other specified conditions; Z79.4 Long term (current) use of insulin; Z79.891 Long term (current) use of opiate analgesic; Z79.899 Other long term (current) drug therapy
CPT/HCPCS: 36415; 49083; 73030; 73060; 80053; 82948; 85025; 85610; 85730; 96372; 96374; 96375; 96376; 99285; A9270; G0378; G0379; J1170; J2270; J2405; P9047

== ENCOUNTER 2023-06-06 17:12 | Observation (INO) | payer MEDICAID, SELFPAY ==
[2023-06-06] VITALS (8 sets, daily range): BP systolic 119–1440; BP diastolic 80–100; PULSE 89–100; RESP 12–18; TEMP 36.7; O2SAT 99–100
--- NOTE | ~2023-06-06 | XR_ITS ---
XR humerus LT DATE: 06/06/2023 22:01 INDICATION: Fall. Prior fracture. TECHNIQUE: 3 views COMPARISON: 06/02/2023 left humerus FINDINGS: There is periosteal reaction at the transverse surgical fracture of the left humeral neck w ith minimal displacement, no significant angulation. Normal alignment at the acromioclavicular and glenohumeral joints. No other fracture or dislocation is evident. IMPRESSION: Healing transverse surgical neck fracture of left humerus Osteopenia Reviewed, dictated and finalized at location A. K DEALER
--- NOTE | ~2023-06-06 | US_ITS ---
US paracentesis abd w/image DATE: 06/07/2023 13:03 INDICATION: Ascites TECHNIQUE: The purpose of the procedure, technique and potential locations were discussed with the siddharth jorgensen. The patient verbalized understanding and gave consent. The skin of the right upper quadrant anterior abdominal wall was prepared with sterile Betadine. Ster ile drape was applied. 1% lidocaine local anesthetic was administered to the skin and underlying subc utaneous tissues. A single stick needle/catheter was inserted into the right upper anterior abdominal cavity, with belinda r ascites noted at the medial hub. The catheter was advanced over the needle and the needle withdrawn . 5 L of clear ascites was drained uneventfully into vacuum bottles. IMPRESSION: Successful ultrasound guided paracentesis procedure yielding 5 L of ascites Reviewed, dictated and finalized at Location A. Reviewed, dictated and finalized at location A. T AND INSTRUMENT ENGINEER
--- NOTE | ~2023-06-06 | XR_ITS ---
XR shoulder LT min 2V DATE: 06/06/2023 22:01 INDICATION: Fall. Previous fracture. TECHNIQUE: 3 views of left shoulder COMPARISON: 06/02/2023 left shoulder and left humerus 05/17/2023 left shoulder 06/02/2022 left shoulder one view FINDINGS: Again noted is a virtually nondisplaced minimally impacted transverse left surgical neck fr acture of the humerus. There is some periosteal reaction consistent with healing. There is diffuse osteopenia. Normal alignment at the acromioclavicular and glenohumeral joints. IMPRESSION: Healing transverse surgical neck fracture of the lateral left humerus, without centimeter change in position or alignment since 06/02/2023 Osteopenia Reviewed, dictated and finalized at location A. LANCE COPYWRITER IMPRESSION: Healing transverse surgical neck fracture of the lateral left humer us, without centimeter change in position or alignment since 06/02/2023 Osteopenia
--- NOTE | 2023-06-06 22:26 | ED.GENADULT ---
HPI - General Adult General Chief complaint: Extremity Injury, Upper Stated complaint: fall, left shoulder injury Time Seen by Provider: 06/06/23 21:54 History of Present Illness HPI narrative: Patient is a 53-year-old male who presents to the emergency department this evening complaining of abdominal pain and distention. Patient does have a history of cirrhosis with severe is 80s and states that he has been having to have his stomach drained almost daily or every other day. Patient had 5 L drained yesterday and a bag was placed over the site where it was drained from as it was leaking. Patient states that since then his abdomen he has got severely distended again and it is causing him a lot of discomfort. Patient also states that he has a known left humerus fracture and ended up falling again on his left arm as his walker slipped from under him today. Patient denies any chest pain, shortness of breath, nausea, vomiting, dysuria, hematuria, constipation, diarrhea, melena, hematochezia, fevers or chills. Patient also denies any headaches, dizziness, lightheadedness, blurry visions, focal weakness, numbness and or tingling. There are no other modifying, alleviating, or precipitating factors at this time. Related Data Home Medications Medication Instructions Recorded Confirmed potassium chloride 20 mEq 20 meq PO BID 04/11/22 05/23/23 tablet,extended release(part/cryst) furosemide 40 mg tablet 80 mg PO BID 08/25/22 05/23/23 gabapentin 300 mg capsule 300 mg PO HS 01/21/23 05/23/23 insulin lispro protamine-lispro 5 unit subcut ACHS PRN 01/21/23 05/23/23 100 unit/mL (75-25) subcutaneous Hyperglycemia pen spironolactone 50 mg tablet 100 mg PO Q12H 04/13/23 05/23/23 (Aldactone) apixaban 5 mg tablet (Eliquis) 5 mg PO BID 05/09/23 05/23/23 Allergies Allergy/AdvReac Type Severity Reaction Status Date / Time ceftriaxone AdvReac Itching Verified 05/23/23 01:17 ciprofloxacin AdvReac Itching Verified 05/23/23 01:17 Review of Systems Review of Systems: All systems are reviewed and are negative unless stated otherwise in the HPI. [facility] Past Medical History Medical History Arthritis C. difficile colitis Cerebrovascular accident (2004) Chronic anemia Cirrhosis of liver with ascites Closed fracture of left proximal humerus Diarrhea Diastolic congestive heart failure Esophageal varices Gastric ulcer Gastroesophageal reflux disease GI bleed Hyperglycemia Hypertension Kidney stone Leukemia In childhood. Pancreatic abnormality Pericardial effusion Noted on CT and echocardiogram in August 2020. No evidence of tamponade. Portal hypertensive gastropathy Noted on endoscopy on 03/23/[address] Duran. Prostate cancer Status post radiation seed implantation. Smoker Spontaneous bacterial peritonitis (04/2020) Tobacco dependence Type 2 diabetes mellitus Surgical History Surgical History History of appendectomy History of cholecystectomy History of cystoscopy History of inguinal hernia repair History of lithotripsy History of repair of right rotator cuff Family History Family History Mother Breast cancer Father Acute myocardial infarction Heart disease Hypertension Other Diabetes mellitus Maternal Uncle Sibling Family history of malignant neoplasm Social History Social History Social History: Surrogate decision maker: Myra Josephuss () or Marnie Washington (aunt). Code status: Full code Smoking packs per day: 0.25 Smoking cigarettes per day: 5.0 Years smoked: 35 Smoking pack-years: 8.75 Smoking status: Light tobacco smoker Tobacco type: cigarettes Second hand tobacco smoke exposure: No Additional smoking assessment comments: 3 cig per da
[2023-06-06] MEDS: MORPHINE SULFATE (*CRX) 4 MG/ML INJ IV PUSH (23:53)
[2023-06-07] VITALS (7 sets, daily range): BP systolic 114–136; BP diastolic 70–90; PULSE 86–107; RESP 16–20; TEMP 36.1–36.6; O2SAT 98–100; BMI 27.6
--- NOTE | 2023-06-07 01:30 | ADMGEN ---
This patient, Matt Worley II, was admitted to [facility] Surg Room 321-02. Patient/family oriented to hospital policies and general routines including ID bracelet, bed and alarms, visiting hours, pain management, procedures, bathroom and other care routines, personal items, smoking policy, room service/diet, and visiting hours. Information on how to activate the Rapid Response Team has been discussed. Patient/Family are encouraged to report perceived risks to care and to ask questions if they do not understand what they are told or what they should do.
[2023-06-07] MEDS: HYDROmorphone HCL INJ (*CRX) 1 MG/ML SYR IV PUSH ×3 (01:45→10:01)
--- NOTE | 2023-06-07 02:45 | PC.NURSE ---
Patient educated on importance of bed alarm due to being a high fall risk. He fell at home recently. He is alert and oriented x4 and refusing bed alarm. States he will call if he needs to get up.
[2023-06-07] MEDS: oxyCODONE HCL (*CRX) 5 MG TAB IR 20 MG PO ×5 (03:45→20:40)
[2023-06-07] MEDS: SPIRONOLACTONE 50 MG TABLET 100 MG PO ×2 (05:49→16:55)
[2023-06-07] MEDS: ALBUMIN HUMAN 25% 12.5 GM/50ML 50 ML IVPB ×3 (05:50→18:02)
[2023-06-07] MEDS: PANTOPRAZOLE 40 MG TABLET PO ×2 (08:14→20:40)
[2023-06-07] MEDS: FUROSEMIDE INJ 40 MG/4 ML VIAL IV PUSH ×2 (08:15→16:52)
[2023-06-07] MEDS: MIDODRINE HCL 2.5 MG TABLET 5 MG PO ×3 (08:15→16:55)
[2023-06-07 08:33] LABS: Basophils Percent Auto 0.9 % (0.2-1.2); Eosinophils Absolute Auto 0.2 K/mm3 (0-0.3); Eosinophils Percent Auto 3.7 % (0-4.4); Hematocrit 30.5 % (42.0-52.0); Hemoglobin 8.5 g/dL (14.0-18.0); Immature Granulocyte Absolute 0.01 K/mm3 (0.00-0.031); Immature Granulocyte Percent A 0.2 % (0-0.5); Lymphocytes Percent Auto 17.5 % (18.3-44.2); Mean Corpuscular HGB Conc 27.9 g/dl (32-36); Mean Corpuscular Hemoglobin 23.5 pg (26-34); Mean Corpuscular Volume 84.5 fl (80-100); Mean Platelet Volume 10.3 fl (7.4-10.4); Monocytes Absolute Auto 0.5 K/mm3 (0.1-0.6); Monocytes Percent Auto 10.7 % (2.6-8.5); Neutrophils Absolute Auto 3.1 K/mm3 (1.3-6.7); Platelet Count Result 142 k/mm3 (150-375); Red Blood Count 3.61 M/mm3 (4.6-6.20); Red Cell Distribution Width 17.8 % (11.5-14.5); White Blood Count 4.6 K/mm3 (4.5-10.0)
[2023-06-07 08:48] LABS: Alanine Aminotransferase 12 U/L (6-50); Albumin Level 2.8 g/dL (3.5-5.1); Alkaline Phosphatase 254 U/L (38-126); Anion Gap 6 mmol/L (8-16); Aspartate Amino Transferase 39 U/L (17-59); Bilirubin,Total 0.2 mg/dL (0.2-1.3); Blood Urea Nitrogen 19 mg/dL (9-20); Calcium 8.4 mg/dL (8.4-10.2); Carbon Dioxide 21 mmol/L (22-30); Chloride 107 mmol/L (98-107); Estimated CRCL calculation 82 ml/min; Estimated Glomerular Filt Rate > 60; Glucose 160 mg/dL (65-110); Magnesium 1.7 mg/dL (1.6-2.3); Phosphorus 3.3 mg/dL (2.5-4.5); Potassium 4.6 mmol/L (3.4-5.0); Sodium 134 mmol/L (137-145)
[2023-06-07 09:20] LABS: Hypochromasia 1+ (NORMAL); Microcytosis 1+ (NORMAL); Platelet Estimate Adequate (Adequate); Schistocytes None Seen (NORMAL)
[2023-06-07 09:22] LABS: Prothrombin Time 13.2 Seconds (11.1-14.7)
--- NOTE | 2023-06-07 12:00 | PC.NURSE ---
To US per stretcher for Paracentesis.
--- NOTE | 2023-06-07 13:00 | PC.NURSE ---
Returned to room per stretcher from US following paracentesis.
--- NOTE | 2023-06-07 13:54 | PM.IMHP ---
H&P: HPI History of Present Illness Date/Time: 06/07/23 13:54 Chief Complaint: Left humerus fracture, ascites Narrative: This is a 53-year-old male patient with a history of cirrhosis of the liver and a recent left humerus fracture. He is in a sling. He was at home using his walker when he fell landing on his left shoulder again. Patient also has severe abdominal ascites causing significant pain. patient recently underwent paracentesis with 5 L withdrawn and a bag placed for continued drainage. Despite slow leaking into the bag he has reaccumulated and is significantly distended again. He will undergo IR drainage ultrasound-guided paracentesis for comfort. Patient requesting to increase his pain medication due to re-injury in his left arm. Review of Systems Review of Systems: All systems reviewed & are unremarkable except as noted in HPI and below PMFSH Past Medical History Medical History Arthritis C. difficile colitis Cerebrovascular accident (2004) Chronic anemia Cirrhosis of liver with ascites Closed fracture of left proximal humerus Diarrhea Diastolic congestive heart failure Esophageal varices Gastric ulcer Gastroesophageal reflux disease GI bleed Hyperglycemia Hypertension Kidney stone Leukemia In childhood. Pancreatic abnormality Pericardial effusion Noted on CT and echocardiogram in August 2020. No evidence of tamponade. Portal hypertensive gastropathy Noted on endoscopy on 03/23/[address] Duran. Prostate cancer Status post radiation seed implantation. Smoker Spontaneous bacterial peritonitis (04/2020) Tobacco dependence Type 2 diabetes mellitus Surgical History Surgical History History of appendectomy History of cholecystectomy History of cystoscopy History of inguinal hernia repair History of lithotripsy History of repair of right rotator cuff Family History Family History Mother Breast cancer Father Acute myocardial infarction Heart disease Hypertension Other Diabetes mellitus Maternal Uncle Sibling Family history of malignant neoplasm Social History Social History Social History: Surrogate decision maker: Myra Worley () or Marnie Felix (aunt). Code status: Full code Smoking packs per day: 0.15 Smoking cigarettes per day: 3.0 Years smoked: 20 Smoking pack-years: 3.00 Smoking status: Current every day smoker Tobacco type: cigarettes Second hand tobacco smoke exposure: No Additional smoking assessment comments: 3 cig per day Alcohol intake: current Drinks per week: 14 Alcohol use details: Former beer drinker. Substance use: never Substance use type: does not use Other substance usage details: DECEMBER 16 2022 LAST DRINK- BEER Do You Feel Safe in your Home?: Yes Lack of Transportation: No Lack of Food: Never True Current Housing: I Have Housing Concerned About Future Housing: YES Difficulty Paying Gas/Electric Bills: No Difficulty Paying for Meds: No Currently Unemployed: No Education: Associate Degree Difficulty w/ Childcare or Family Care: No Living arrangements: with family Additional living arrangements comments: [facility] with his and son. Additional occupation/education comments: On disability. Spiritual care concerns: No Agree to blood products: Yes Meds Home Medications and Allergies Home Medications Medication Instructions Recorded Confirmed Type potassium chloride 20 mEq 20 meq PO BID 04/11/22 06/07/23 History tablet,extended release(part/cryst) pantoprazole 40 mg tablet,delayed 40 mg PO Q12HR #60 tabs 07/09/22 06/07/23 Rx release furosemide 40 mg tablet 80 mg PO BID 08/25/22 06/07/23 History gabapentin 300 mg capsule
[2023-06-07] MEDS: HYDROmorphone HCL INJ (*CRX) 1 MG/ML SYR 2 MG IV PUSH ×3 (14:04→22:19)
[2023-06-07 14:13] LABS: Glucose Point of Care 164 mg/dl (65-105)
[2023-06-07] MEDS: ONDANSETRON INJ 4 MG/2 ML VIAL IV PUSH (15:25)
[2023-06-07 16:43] LABS: Glucose Point of Care 146 mg/dl (65-105)
[2023-06-07] MEDS: GABAPENTIN 300 MG CAPSULE PO (20:40)
[2023-06-07 21:16] LABS: Glucose Point of Care 164 mg/dl (65-105)
[2023-06-08] MEDS: oxyCODONE HCL (*CRX) 5 MG TAB IR 20 MG PO ×3 (01:12→08:43)
[2023-06-08] MEDS: ALBUMIN HUMAN 25% 12.5 GM/50ML 50 ML IVPB ×2 (01:13→05:29)
[2023-06-08] MEDS: HYDROmorphone HCL INJ (*CRX) 1 MG/ML SYR 2 MG IV PUSH ×3 (02:10→10:33)
[2023-06-08] MEDS: SPIRONOLACTONE 50 MG TABLET 100 MG PO (05:41)
[2023-06-08 06:30] VITALS: BP 114/66; PULSE 102; RESP 20; TEMP 36.1; O2SAT 100
[2023-06-08 06:34] LABS: Basophils Percent Auto 0.5 % (0.2-1.2); Eosinophils Absolute Auto 0.1 K/mm3 (0-0.3); Eosinophils Percent Auto 2.5 % (0-4.4); Hematocrit 28.2 % (42.0-52.0); Hemoglobin 7.8 g/dL (14.0-18.0); Immature Granulocyte Absolute 0.02 K/mm3 (0.00-0.031); Immature Granulocyte Percent A 0.5 % (0-0.5); Immature Platelet Fraction Pct 5.6 % (0.9-11.2); Lymphocytes Absolute Auto 0.46 K/mm3 (0.9-3.2); Lymphocytes Percent Auto 10.5 % (18.3-44.2); Mean Corpuscular HGB Conc 27.7 g/dl (32-36); Mean Corpuscular Hemoglobin 23.4 pg (26-34); Mean Corpuscular Volume 84.7 fl (80-100); Mean Platelet Volume 11.2 fl (7.4-10.4); Monocytes Absolute Auto 0.4 K/mm3 (0.1-0.6); Neutrophils Absolute Auto 3.4 K/mm3 (1.3-6.7); Platelet Count Result 126 k/mm3 (150-375); Red Blood Count 3.33 M/mm3 (4.6-6.20); Red Cell Distribution Width 17.5 % (11.5-14.5); White Blood Count 4.4 K/mm3 (4.5-10.0)
[2023-06-08 06:50] LABS: Alanine Aminotransferase 11 U/L (6-50); Albumin Level 3.2 g/dL (3.5-5.1); Alkaline Phosphatase 212 U/L (38-126); Anion Gap 7 mmol/L (8-16); Aspartate Amino Transferase 33 U/L (17-59); Bilirubin,Total 0.3 mg/dL (0.2-1.3); Blood Urea Nitrogen 20 mg/dL (9-20); Calcium 8.6 mg/dL (8.4-10.2); Carbon Dioxide 24 mmol/L (22-30); Chloride 100 mmol/L (98-107); Estimated CRCL calculation 73 ml/min; Estimated Glomerular Filt Rate > 60; Glucose 162 mg/dL (65-110); Magnesium 1.5 mg/dL (1.6-2.3); Sodium 131 mmol/L (137-145)
[2023-06-08] MEDS: MAGNESIUM SULF 2 GM/WATER 50ML 2 GM/50 ML BAG IVPB (07:43)
[2023-06-08 07:49] LABS: Glucose Point of Care 141 mg/dl (65-105)
[2023-06-08 08:26] LABS: Anisocytosis 1+ (NORMAL); Hypochromasia 1+ (NORMAL); Schistocytes None Seen (NORMAL)
[2023-06-08] MEDS: FUROSEMIDE INJ 40 MG/4 ML VIAL IV PUSH (08:43)
[2023-06-08] MEDS: PANTOPRAZOLE 40 MG TABLET PO (08:43)
[2023-06-08] MEDS: MIDODRINE HCL 2.5 MG TABLET 5 MG PO (08:43)
--- NOTE | 2023-06-08 09:47 | PM.DS ---
DS: Admitting Diagnosis Discharge Date 06/08/2023 Admitting Diagnosis abdominal ascites, closed fracture left proximal humerus DS: Discharge Diagnosis Discharge Diagnosis (1) Abdominal ascites: Code(s): R18.8 - Other ascites Status: Acute (2) Closed fracture of left proximal humerus: Qualifiers: Encounter type: initial encounter Fracture morphology: other fracture Fracture alignment: displaced Qualified Code(s): S42.292A - Other displaced fracture of upper end of left humerus, initial encounter for closed fracture Code(s): S42.202A - Unspecified fracture of upper end of left humerus, initial encounter for closed fracture Status: Acute DS: Summary Hospital Course Reason for hospitalization: abdominal ascites, fall with re-injury of left humerus fracture Hospital Course: This is a 53-year-old male patient history of end-stage liver cirrhosis and recent left humerus fracture. Prior to admission patient had fallen at home while using his walker and landed on his left arm causing significant pain. Additionally, his abdomen is diffusely distended and taut. Patient was admitted for overnight pain control as well as to receive therapeutic paracentesis. Patient is receiving paracentesis every other day at this point drawn off 5 L at a time. He is wearing an ostomy pouch because of continued draining from prior puncture site. No signs of infection. Pain medication increased while he was inpatient due to re-injury of left humerus fracture. X-ray shows normal healing process. Today patient was discharged in the morning because he wanted to spend [place] his son. He has an appointment to back to Interventional Radiology tomorrow for further abdominal paracentesis. Patient has pain medication and will follow up with his primary care provider regarding ongoing prescription for such. Patient reports that his primary care provider rates 2 weeks medication at a time. Patient reports that he is significantly sad because his earlier this month. Currently his mother is in from [place] to help him. She will come pick him up at discharge. Status at Discharge Cognitive/behavioral status at discharge: Awake alert oriented and very pleasant Functional status at discharge: independent ambulation Overall status at discharge: patient is back to baseline Time Spent with Patient Time attestation: Total time spent providing and/or coordinating discharge services: 40 minutes Time spent: Greater than 30 minutes Exam Narrative: GENERAL: chronically ill appearing, well-nourished, and in no acute distress. HEAD: Normocephalic, atraumatic. ENT:? Mucous membranes moist. CHEST: Clear to auscultation.? No respiratory distress. HEART: Regular rate and rhythm. ? Normal peripheral pulses. ABDOMEN: tender, firm, profusely distended with ascites, drainage bag with clear yellow peritoneal fluid. EXTREMITIES: Left upper extremity in a sling pain with mobilization of the shoulder, distal pulse motor and sensation intact SKIN: Warm dry jaundice NEURO: Alert and oriented x3. PSYCH: Normal mood and affect DS: Data Data Completed and Pending Completed studies during hospitalization: left shoulder x-ray, left humerus x-ray Labs on day of discharge: Labs from last 24 hours 06/08/23 06/08/23 06/07/23 07:43 06:08 20:58 WBC 4.4 L RBC 3.33 L Hgb 7.8 L Hct 28.2 L MCV 84.7 MCH 23.4 L MCHC 27.7 L RDW 17.5 H Plt Count 126 L MPV 11.2 H Immature Gran % (Auto) 0.5 Neut % (Auto) 76.0 H Lymph % (Auto) 10.5 L Leake % (Auto) 10.0 H Eos % (Auto) 2.5 Baso % (Auto) 0.5 Lymph # (Auto) 0.46 L Leake # (Auto) 0.4 Eos # (Auto) 0.1 Baso # (Auto) 0.0 Abs Immat Gran (auto) 0.02 Absolute Neuts (auto) 3.4 Absolute Nucleated RBC 0.0 Nucleated RBC % 0.0 Platelet Estimate Slightly decreased % Immature Plt Fraction 5.6 Hypochromas
== END 2023-06-08 10:50 | disposition home or self-care (01) ==
LOC: ANHED 06-07 00:39 → ANH3MEDSUR 06-07 01:15
PROVIDERS: Nurse Practitioner; Admitting Provider Internal Medicine; Emergency Provider Emergency Medicine; PCP Hospitalist; Visit Provider Internal Medicine
DX: R18.8 Other ascites (principal); S42.212A Unspecified displaced fracture of surgical neck of left humerus, initial encounter for closed fracture; W18.39XA Other fall on same level, initial encounter; M85.80 Other specified disorders of bone density and structure, unspecified site; D64.9 Anemia, unspecified; I11.0 Hypertensive heart disease with heart failure; K74.60 Unspecified cirrhosis of liver; I50.30 Unspecified diastolic (congestive) heart failure; E11.65 Type 2 diabetes mellitus with hyperglycemia; K21.9 Gastro-esophageal reflux disease without esophagitis; F17.210 Nicotine dependence, cigarettes, uncomplicated; Z79.4 Long term (current) use of insulin; Z79.01 Long term (current) use of anticoagulants; Z79.891 Long term (current) use of opiate analgesic; Z79.899 Other long term (current) drug therapy; Z85.46 Personal history of malignant neoplasm of prostate; Z92.3 Personal history of irradiation; Z92.21 Personal history of antineoplastic chemotherapy; Z86.73 Personal history of transient ischemic attack (TIA), and cerebral infarction without residual deficits
CPT/HCPCS: 36415; 49083; 73030; 73060; 80048; 80053; 80076; 82948; 83735; 84100; 85025; 85055; 85610; 85730; 96365; 96366; 96375; 96376; A9270; G0378; G0379; J1170; J1815; J1940; J2270; J2405; J3475; P9047

== ENCOUNTER 2023-06-09 16:43 | Emergency (ER) | payer MEDICAID, SELFPAY ==
[2023-06-09 17:06] VITALS: BP 111/70; PULSE 97; RESP 16; TEMP 36.7; O2SAT 100
--- NOTE | 2023-06-09 17:15 | PC.NURSE ---
pt states he will not wait in the waiting room and is going home. pt ambulatory out of ED.
== END 2023-06-09 17:15 | disposition left against medical advice (07) ==
LOC: ANHED 17:20
PROVIDERS: PCP Hospitalist
DX: Z53.21 Procedure and treatment not carried out due to patient leaving prior to being seen by health care provider (principal)
CPT/HCPCS: 99199

== ENCOUNTER 2023-06-12 12:11 | Inpatient (IN) | payer MEDICAID, SELFPAY ==
--- NOTE | ~2023-06-12 | US_ITS ---
EXAMINATION: US paracentesis abd w/image DATE: 06/13/2023 13:17 INDICATION: Ascites. TECHNIQUE: The procedure and its risks, benefits, and alternatives were discussed with the patient. P otential risks discussed included bleeding and infection. The skin was prepped and draped in sterile fashion. 1% lidocaine was used for local anesthesia. Under ultrasound guidance, a 5 Fr catheter with trochar was advanced into the ascites in the left abdomen and then the right abdomen. Fluid was aspir ated. The catheter was removed, and dressing were applied. There were no immediate complications. FINDINGS: Ultrasound images demonstrate ascites and the catheter within the fluid. IMPRESSION: 1. Successful ultrasound-guided paracentesis yielding 5000 mL of yellow fluid. Reviewed, dictated and finalized at location A. LING SORTER
--- NOTE | ~2023-06-12 | CT_ITS ---
EXAMINATION: CT brain wo con INDICATION: Weakness, fall COMPARISON: 06/09/2022 TECHNIQUE: Standard unenhanced head CT. The dose-length product (DLP) was 605.33 mGy-cm. The mA was a djusted according to patient size. Iterative reconstruction technique was employed. FINDINGS: No intracranial hemorrhage, acute infarction, or abnormal mass lesion. The ventricles are n ormal. No abnormal mass effect or midline shift. The scott-white matter differentiation is normal. The basal cisterns are patent. The orbits are normal. The paranasal sinuses, mastoids and calvarium are normal. IMPRESSION: 1. No acute intracranial abnormality. Reviewed, dictated and finalized at location B. TH MANAGEMENT MANAGER
--- NOTE | ~2023-06-12 | US_ITS ---
EXAMINATION: US paracentesis abd w/image DATE: 06/17/2023 10:32 INDICATION: Ascites. TECHNIQUE: The procedure and its risks and benefits were discussed with the patient. Potential risks discussed included bleeding and infection. The skin was prepped and draped in sterile fashion. 1% lid ocaine was used for local anesthesia. Under ultrasound guidance, a 5 Fr catheter with trochar was adv anced into the ascites in the right abdomen. Fluid was aspirated into vacuum bottles. The catheter wa s removed, and a dressing was applied. There were no immediate complications. FINDINGS: Ultrasound images demonstrate ascites and the catheter within the fluid. IMPRESSION: 1. Successful ultrasound-guided paracentesis yielding 3500 mL of dark gio-colored fluid. Reviewed, dictated and finalized at location A. MASKER IMPRESSION: 1. Successful ultrasound-guided paracentesis yielding 3500 mL of dark gio-co lored fluid.
--- NOTE | ~2023-06-12 | XR_ITS ---
EXAMINATION: XR shoulder LT min 2V DATE: 06/12/2023 13:43 INDICATION: Left shoulder fracture. Fall. TECHNIQUE: 3 views of left shoulder were obtained. COMPARISON: Left shoulder radiographs 06/06/2023 FINDINGS: There is a transverse fracture of surgical neck of proximal left humerus. The distal fractu re fragment demonstrates impaction. Callus formation is noted. There is mild osteoarthritis of acromi oclavicular joint. Glenohumeral joint is normal. IMPRESSION: 1. Unchanged healing two-part fracture of proximal left humerus. Reviewed, dictated and finalized at location A. MANUFACTURING ENGINEER
[2023-06-12 12:14] VITALS: BP 121/84; PULSE 111; RESP 20; TEMP 36.7; O2SAT 99
--- NOTE | 2023-06-12 12:38 | ED.FALL ---
HPI - Fall General Chief Complaint: Fall Stated Complaint: fall today hard to feel my legs Time Seen by Provider: 06/12/23 12:23 History of Present Illness HPI Narrative: Patient is a 53-year-old male with history of alcoholic cirrhosis, requires recurrent paracenteses, last was performed yesterday here with leg weakness and a fall. Patient notes that today he was trying to get around his home and his bilateral legs got weak and he fell down onto his left arm. He is currently complaining of chronic abdominal pain as well as pain in his left shoulder where he has a known fracture. He denies head injury. He notes that his recently and he has had continued difficulty being home by himself. He currently has family visiting from out of state but when they leave he is unsure he will be able to care for himself. He notes he had a paracentesis on 06/07 (5L) and 06/11 (6L), is due for one on 06/16 scheduled with IR however he feels like he will be unable to wait until that time because of his abdominal distention. Denies blood thinner use. He believes he was lying on the ground for about 30 minutes unable to get up. Related Data Home Medications Medication Instructions Recorded Confirmed potassium chloride 20 mEq 20 meq PO BID 04/11/22 06/07/23 tablet,extended release(part/cryst) furosemide 40 mg tablet 80 mg PO BID 08/25/22 06/07/23 gabapentin 300 mg capsule 300 mg PO HS 01/21/23 06/07/23 insulin lispro protamine-lispro 5 unit subcut ACHS PRN 01/21/23 06/07/23 100 unit/mL (75-25) subcutaneous Hyperglycemia pen spironolactone 50 mg tablet 100 mg PO Q12H 04/13/23 06/07/23 (Aldactone) apixaban 5 mg tablet (Eliquis) 5 mg PO BID 05/09/23 06/07/23 Allergies Allergy/AdvReac Type Severity Reaction Status Date / Time ceftriaxone AdvReac Itching Verified 06/12/23 12:12 ciprofloxacin AdvReac Itching Verified 06/12/23 12:12 Review of Systems Review of Systems: All systems reviewed & are unremarkable except as noted in HPI and below PMFSH Past Medical History Medical History Arthritis C. difficile colitis Cerebrovascular accident (2004) Chronic anemia Cirrhosis of liver with ascites Closed fracture of left proximal humerus Diarrhea Diastolic congestive heart failure Esophageal varices Gastric ulcer Gastroesophageal reflux disease GI bleed Hyperglycemia Hypertension Kidney stone Leukemia In childhood. Pancreatic abnormality Pericardial effusion Noted on CT and echocardiogram in August 2020. No evidence of tamponade. Portal hypertensive gastropathy Noted on endoscopy on 03/23/[address] Duran. Prostate cancer Status post radiation seed implantation. Smoker Spontaneous bacterial peritonitis (04/2020) Tobacco dependence Type 2 diabetes mellitus Surgical History Surgical History History of appendectomy History of cholecystectomy History of cystoscopy History of inguinal hernia repair History of lithotripsy History of repair of right rotator cuff Family History Family History Mother Breast cancer Father Acute myocardial infarction Heart disease Hypertension Other Diabetes mellitus Maternal Uncle Sibling Family history of malignant neoplasm Social History Social History Social History: Surrogate decision maker: Myra Worley () or Marnie [place] (aunt). Code status: Full code Smoking packs per day: 0.15 Smoking cigarettes per day: 3.0 Years smoked: 20 Smoking pack-years: 3.00 Smoking status: Current every day smoker Tobacco type: cigarettes Second hand tobacco smoke exposure: No Additional smoking assessment comments: 3 cig per day Alcohol intake: current Drinks per week: 14 Alcohol use details: Former beer drinker. Sub
--- NOTE | 2023-06-12 13:23 | ECG_ITS ---
Measurements Intervals [place] Rate: 98 P: 44 CT: 153 QRS: 20 QRSD: 74 T: 33 QT: 340 QTc: 436 Interpretive Statements SINUS RHYTHM POSSIBLE ANTERIOR MYOCARDIAL INFARCTION , PROBABLY OLD [30 ms Q WAVE IN V3/V4, OR R < 0.2 mV IN V4] COMPARED TO ECG 05/09/2023 05:49:50 SINUS RHYTHM NOW PRESENT Electronically Signed On 06-12-2023 16:41:59 REIKI PRACTITIONER by Andre Valdez M.D.
[2023-06-12 14:31] LABS: Basophils Percent Auto 0.3 % (0.2-1.2); Eosinophils Absolute Auto 0.2 K/mm3 (0-0.3); Eosinophils Percent Auto 1.7 % (0-4.4); Hematocrit 37.4 % (42.0-52.0); Hemoglobin 10.4 g/dL (14.0-18.0); Immature Granulocyte Absolute 0.04 K/mm3 (0.00-0.031); Immature Granulocyte Percent A 0.4 % (0-0.5); Lymphocytes Absolute Auto 0.81 K/mm3 (0.9-3.2); Mean Corpuscular HGB Conc 27.8 g/dl (32-36); Mean Corpuscular Volume 82.6 fl (80-100); Mean Platelet Volume 11.1 fl (7.4-10.4); Monocytes Absolute Auto 0.8 K/mm3 (0.1-0.6); Monocytes Percent Auto 8.3 % (2.6-8.5); Neutrophils Absolute Auto 7.2 K/mm3 (1.3-6.7); Neutrophils Percent Auto 80.3 % (45.5-73.1); Platelet Count Result 225 k/mm3 (150-375); Red Blood Count 4.53 M/mm3 (4.6-6.20); Red Cell Distribution Width 17.4 % (11.5-14.5)
[2023-06-12 14:39] LABS: Ammonia < 9 umol/L (9-30)
[2023-06-12 14:41] LABS: Alanine Aminotransferase 14 U/L (6-50); Albumin Level 3.7 g/dL (3.5-5.1); Alkaline Phosphatase 284 U/L (38-126); Anion Gap 7 mmol/L (8-16); Aspartate Amino Transferase 36 U/L (17-59); Bilirubin,Total 0.7 mg/dL (0.2-1.3); Blood Urea Nitrogen 21 mg/dL (9-20); Calcium 8.9 mg/dL (8.4-10.2); Carbon Dioxide 22 mmol/L (22-30); Chloride 103 mmol/L (98-107); Creatine Kinase 28 U/L (55-170); Estimated CRCL calculation 73 ml/min; Estimated Glomerular Filt Rate > 60; Glucose 101 mg/dL (65-110); Lipase 64 U/L (23-300); Magnesium 2.2 mg/dL (1.6-2.3); Potassium 4.3 mmol/L (3.4-5.0); Sodium 132 mmol/L (137-145)
[2023-06-12] MEDS: oxyCODONE HCL (*CRX) 5 MG TAB IR PO ×2 (14:42→20:54)
[2023-06-12 14:52] LABS: Troponin I < 0.012 ng/mL (0.000-0.034)
[2023-06-12 14:55] LABS: Anisocytosis 1+ (NORMAL); Hypochromasia 1+ (NORMAL); Large Platelets Present; Ovalocytes 1+ (NORMAL); Platelet Estimate Adequate (Adequate); Schistocytes None Seen (NORMAL)
[2023-06-12 15:19] LABS: Appearance Urine Turbid (Clear); Bacteria Urine None Seen /hpf; Bilirubin Urine 1+ (Negative); Blood Urine Negative (Negative); Color Urine Dark Yellow (Yellow); Glucose Urine UA Negative (Negative); Hyaline Casts Urine Present /lpf; Ketones Urine Trace mg/dL (Negative); Leukocyte Esterase Ur Trace LEU/UL (Negative); Need Manual Microscopic Reviewed; Nitrate Urine Negative (Negative); Protein Urine 1+ mg/dL (Negative); Specific Grav Ur 1.028 (1.001-1.035); Squamous Epithelial Cell Urine None seen /hpf (Few); WBC Urine 0-5 /hpf; pH Urine 5.5 (5.0-9.0)
[2023-06-12 15:20] LABS: Add Urine Microscopic? YES
[2023-06-12] MEDS: ONDANSETRON INJ 4 MG/2 ML VIAL IV PUSH (17:28)
[2023-06-12] MEDS: MORPHINE SULFATE (*CRX) 4 MG/ML INJ IV PUSH (17:28)
--- NOTE | 2023-06-12 18:49 | PCCCNOTE ---
Requested to see pt for placement in facility. Pt has had multiple falls recently and today legs felt like they gave out. Returns for regularly scheduled paracentesis which is scheduled for 06/16/23 but pt doesn't feel he can wait that long. Call placed to Jen with [facility]. They have beds available and referral faxed to the [employer] fax# per her request. She will email the referral to her administrators. Requested they call the ER nurses station with answer if they have one tonight. Met with pt & mother, who is here from [place] to help, and both say they will think about placement but are not eager for that to happen. They feel if he could have his paracentesis earlier, then he would be OK and could go home. He's having to have that done qod at this point. Informed ER provider that it's doubtful pt could be placed tonight but that referral has been sent, and they have beds available so it's a potential possibility if pt agrees.
[2023-06-12 21:16] VITALS: BP 126/84; PULSE 98; RESP 19; TEMP 36.6; O2SAT 99
[2023-06-12 22:00] VITALS: BP 123/84; PULSE 103; RESP 18; TEMP 36.2; O2SAT 100
--- NOTE | 2023-06-12 22:04 | ADMGEN ---
This patient, Matt Worley II, was admitted to Medical Room 257-01. Patient/family oriented to hospital policies and general routines including ID bracelet, bed and alarms, visiting hours, pain management, procedures, bathroom and other care routines, personal items, smoking policy, room service/diet, and visiting hours. Information on how to activate the Rapid Response Team has been discussed. Patient/Family are encouraged to report perceived risks to care and to ask questions if they do not understand what they are told or what they should do.
[2023-06-12 22:14] VITALS: BMI 25.7
--- NOTE | 2023-06-12 22:23 | PM.IMHP ---
H&P: HPI History of Present Illness Date/Time: 06/12/23 22:23 Chief Complaint: weakness Narrative: 53MM w/ PMH 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 He has a consultation with [facility] on 06/18/22 for possible Tenckhoff catheter placement for his recurrent ascites and then subsequent palliative care. He requires paracentesis every 1-2 days. Pt had recent left humerus fracture to which he elected conservative mgmt. AT home he fell 2/2 being weak onto his left arm. He thinks he needs therapy stay. Review of Systems Review of Systems: All systems reviewed & are unremarkable except as noted in HPI and below (HPI) [facility] Past Medical History Medical History Arthritis C. difficile colitis Cerebrovascular accident (2004) Chronic anemia Cirrhosis of liver with ascites Closed fracture of left proximal humerus Diarrhea Diastolic congestive heart failure Esophageal varices Gastric ulcer Gastroesophageal reflux disease GI bleed Hyperglycemia Hypertension Kidney stone Leukemia In childhood. Pancreatic abnormality Pericardial effusion Noted on CT and echocardiogram in August 2020. No evidence of tamponade. Portal hypertensive gastropathy Noted on endoscopy on 03/23/[address] Duran. Prostate cancer Status post radiation seed implantation. Smoker Spontaneous bacterial peritonitis (04/2020) Tobacco dependence Type 2 diabetes mellitus Surgical History Surgical History History of appendectomy History of cholecystectomy History of cystoscopy History of inguinal hernia repair History of lithotripsy History of repair of right rotator cuff Family History Family History Mother Breast cancer Father Acute myocardial infarction Heart disease Hypertension Other Diabetes mellitus Maternal Uncle Sibling Family history of malignant neoplasm Social History Social History Social History: Surrogate decision maker: Myra Worley () or Marnie [place] (aunt). Code status: Full code Smoking packs per day: 0.15 Smoking cigarettes per day: 3.0 Years smoked: 20 Smoking pack-years: 3.00 Smoking status: Current every day smoker Tobacco type: cigarettes Second hand tobacco smoke exposure: No Additional smoking assessment comments: 3 cig per day Alcohol intake: former Drinks per week: 14 Alcohol use details: Former beer drinker. Substance use: never Substance use type: does not use Other substance usage details: DECEMBER 16 2022 LAST DRINK- BEER Do You Feel Safe in your Home?: Yes Lack of Transportation: No Lack of Food: Never True Current Housing: I Have Housing Concerned About Future Housing: No Difficulty Paying Gas/Electric Bills: No Difficulty Paying for Meds: No Currently Unemployed: No Education: Associate Degree Difficulty w/ Childcare or Family Care: No Living arrangements: with family Additional living arrangements comments: Resides in [place] with his and son. Additional occupation/education comments: On disability. Spiritual care concerns: No Agree to blood products: Yes Meds Home Medications and Allergies Home Medications Medication Instructions Recorded Confirmed Type potassium chloride 20 mEq 20 meq PO BID 04/11/22 06/12/23 History tablet,extended release(part/cryst) pantoprazole 40 mg tablet,delayed 40 mg PO Q12HR #60 tabs 07/09/22 06/12/23 Rx release furosemide 40 mg tablet 80 mg PO BID 08/25/22 06/12/23 History gabapentin 300 mg capsule 300 mg PO HS 01/21/23 06/12/23 History insulin lispro protamine-lispro
[2023-06-12] MEDS: FUROSEMIDE INJ 100 MG/10 ML VIAL 80 MG IV PUSH (23:38)
[2023-06-12] MEDS: oxyCODONE HCL (*CRX) 5 MG TAB IR 20 MG PO (23:39)
[2023-06-13] VITALS (9 sets, daily range): BP systolic 113–120; BP diastolic 74–78; PULSE 98–110; RESP 16–19; TEMP 36.1–36.7; O2SAT 97–99
[2023-06-13] MEDS: MORPHINE SULFATE (*CRX) 2 MG/ML INJ IV PUSH ×5 (01:50→22:25)
[2023-06-13 05:45] LABS: Prothrombin Time 13.8 Seconds (11.1-14.7)
[2023-06-13 05:46] LABS: Partial Thromboplastin Time 36.7 SECONDS (22.3-36.8)
[2023-06-13] MEDS: oxyCODONE HCL (*CRX) 5 MG TAB IR 20 MG PO ×4 (05:49→20:25)
[2023-06-13 05:53] LABS: Hematocrit 34.2 % (42.0-52.0); Hemoglobin 9.6 g/dL (14.0-18.0); Mean Corpuscular HGB Conc 28.1 g/dl (32-36); Mean Corpuscular Hemoglobin 22.9 pg (26-34); Mean Corpuscular Volume 81.6 fl (80-100); Mean Platelet Volume 10.6 fl (7.4-10.4); Platelet Count Result 197 k/mm3 (150-375); Red Blood Count 4.19 M/mm3 (4.6-6.20); Red Cell Distribution Width 17.2 % (11.5-14.5); White Blood Count 6.8 K/mm3 (4.5-10.0)
[2023-06-13 06:04] LABS: Alanine Aminotransferase 12 U/L (6-50); Albumin Level 3.3 g/dL (3.5-5.1); Alkaline Phosphatase 226 U/L (38-126); Anion Gap 8 mmol/L (8-16); Aspartate Amino Transferase 30 U/L (17-59); Bilirubin,Total 0.4 mg/dL (0.2-1.3); Blood Urea Nitrogen 23 mg/dL (9-20); Calcium 8.5 mg/dL (8.4-10.2); Carbon Dioxide 23 mmol/L (22-30); Chloride 101 mmol/L (98-107); Estimated CRCL calculation 56 ml/min; Estimated Glomerular Filt Rate > 60; Glucose 137 mg/dL (65-110); Sodium 132 mmol/L (137-145)
[2023-06-13 08:13] LABS: Glucose Point of Care 137 mg/dl (65-105)
[2023-06-13] MEDS: FUROSEMIDE INJ 100 MG/10 ML VIAL 80 MG IV PUSH ×2 (08:19→18:04)
--- NOTE | 2023-06-13 11:45 | PC.NURSE ---
Patient taken down for paracentesis
--- NOTE | 2023-06-13 11:51 | PM.IMPN ---
Progress Note: A&P Assessment and Plan (1) Abdominal ascites: Qualifiers: Ascites type: due to alcoholic cirrhosis Qualified Code(s): K70.31 - Alcoholic cirrhosis of liver with ascites Code(s): R18.8 - Other ascites Status: Acute Assessment and Plan: 06/13/23: Patient had paracentesis today with 5L removal He recently had 5L removed on 06/07/23 and another 6L removed yesterday. Patient has appointment with surgeon on 06/18/23 for Tenckhoff catheter placement (2) Bilateral leg weakness: Code(s): R29.898 - Other symptoms and signs involving the musculoskeletal system Status: Acute Assessment and Plan: 06/13/23: Frequent falls recently. Patient sustained a fall on 06/07/23 after tripping over a toy. Patient fell onto left shoulder. He came in and had x-ray which confirms a humerus fracture. PT and OT ordered for eval and treat dispute coordinator involved for outpatient rehab needs. (3) Fracture of proximal end of humerus: Qualifiers: Encounter type: subsequent encounter Fracture healing: with routine healing Fracture morphology: unspecified fracture morphology Fracture type: closed Laterality: left Qualified Code(s): S42.202D - Unspecified fracture of upper end of left humerus, subsequent encounter for fracture with routine healing Code(s): S42.209A - Unspecified fracture of upper end of unspecified humerus, initial encounter for closed fracture Status: Acute Assessment and Plan: 06/13/23: Continue to ice, rest, and elevate arm Continue with sling Continue pain control efforts (4) Fall: Qualifiers: Encounter type: initial encounter Qualified Code(s): W19.XXXA - Unspecified fall, initial encounter Code(s): W19.XXXA - Unspecified fall, initial encounter Status: Acute Assessment and Plan: 06/13/23: Has fallen 3x recently. 1st time was when he tripped over son's toy and broke his left humerus. 2nd time he tripped over his cat. Third time his legs were to weak causing him to fall. PT and OT ordered Case management following for rehab needs. Time Spent With Patient Time with patient: Greater than 35 minutes Subjective Date/time seen: 06/13/23 11:51 Interval history: This is a 53 year old male who presented to the hospital for evaluation after ground level fall and weakness. Patient has significant past medical history of end stage cirrhosis requiring frequent paracentesis. Last paracentesis was done on 06/07/23 with 5L fluid removal. He had another paracentesis done yesterday with 6L fluid removal. He has consultation with [facility] on 06/18/22 for possible Tenckhoff catheter placement for his recurrent ascites as a palliative measure. Patient had a recent fracture due to a fall, to his left humerus in which he elected medical management. Head CT was negative, left shoulder x-ray showing unchanged healing two-part fracture of proximal left humerus. On examination today patient is alert and oriented x3, lying in the bed. He has a left arm sling for his left humerus fx. He reports his pain in his abdomen at the paracentesis site 10/10 and left shoulder pain at 8/10. Labs today reveal WBC 6.8, Hgb 9.6, Hct 34.2, Na+ 132, BUN 23, Creatinine 1.20, Bg ranging 101-137, liver enzymes are normal, total bili 0.4, Alk phos 226, ammonia level <9, total CK 28, albumin 3.3. Case management consulted for outpatient rehab needs. PT and OT ordered. Review of Systems Review of Systems: All systems reviewed & are unremarkable except as noted in HPI and below (HPI) Constitutional: Constitutional: Reports as per HPI and Reports no additional constitutional complaints Eyes: Eyes: Reports as per HPI and Reports no additional eye complaints ENT: Reports system reviewed and no additional complaints, except as documented and Reports as per HPI Cardiovascular: Cardiovascular: Reports as per HPI and Reports no additional cardiovas
--- NOTE | 2023-06-13 13:38 | PC.NURSE ---
patient returned from paracentesis
[2023-06-13] MEDS: MIDODRINE HCL 2.5 MG TABLET 5 MG PO ×2 (13:44→18:03)
[2023-06-13 14:03] LABS: Glucose Point of Care 132 mg/dl (65-105)
--- NOTE | 2023-06-13 14:51 | PCPTNOTE ---
Attempted to see patient, was still eating his late lunch, will check back later as time permits.
[2023-06-13 17:05] LABS: Glucose Point of Care 147 mg/dl (65-105)
[2023-06-13] MEDS: APIXABAN 5 MG TABLET PO (18:03)
[2023-06-13] MEDS: GABAPENTIN 300 MG CAPSULE PO (20:25)
[2023-06-13] MEDS: PANTOPRAZOLE 40 MG TABLET PO (20:25)
[2023-06-13 20:54] LABS: Glucose Point of Care 149 mg/dl (65-105)
[2023-06-14] VITALS (8 sets, daily range): BP systolic 103–120; BP diastolic 69–79; PULSE 97–110; RESP 16–18; TEMP 36.2–36.6; O2SAT 95–98
[2023-06-14] MEDS: MORPHINE SULFATE (*CRX) 2 MG/ML INJ IV PUSH ×5 (02:25→22:10)
[2023-06-14] MEDS: oxyCODONE HCL (*CRX) 5 MG TAB IR 20 MG PO ×4 (03:37→20:42)
[2023-06-14 08:34] LABS: Glucose Point of Care 133 mg/dl (65-105)
[2023-06-14] MEDS: PANTOPRAZOLE 40 MG TABLET PO ×2 (08:48→20:43)
[2023-06-14] MEDS: MIDODRINE HCL 2.5 MG TABLET 5 MG PO ×3 (08:48→16:38)
[2023-06-14] MEDS: FUROSEMIDE INJ 100 MG/10 ML VIAL 80 MG IV PUSH ×2 (08:48→16:38)
[2023-06-14] MEDS: APIXABAN 5 MG TABLET PO ×2 (08:48→16:38)
[2023-06-14 09:05] LABS: Basophils Percent Auto 0.9 % (0.2-1.2); Eosinophils Absolute Auto 0.2 K/mm3 (0-0.3); Eosinophils Percent Auto 3.9 % (0-4.4); Hematocrit 30.4 % (42.0-52.0); Hemoglobin 8.6 g/dL (14.0-18.0); Immature Granulocyte Absolute 0.01 K/mm3 (0.00-0.031); Immature Granulocyte Percent A 0.2 % (0-0.5); Lymphocytes Absolute Auto 0.74 K/mm3 (0.9-3.2); Mean Corpuscular HGB Conc 28.3 g/dl (32-36); Mean Corpuscular Hemoglobin 22.9 pg (26-34); Mean Corpuscular Volume 81.1 fl (80-100); Monocytes Absolute Auto 0.7 K/mm3 (0.1-0.6); Monocytes Percent Auto 14.1 % (2.6-8.5); Neutrophils Percent Auto 64.9 % (45.5-73.1); Platelet Count Result 155 k/mm3 (150-375); Red Blood Count 3.75 M/mm3 (4.6-6.20); Red Cell Distribution Width 16.9 % (11.5-14.5); White Blood Count 4.6 K/mm3 (4.5-10.0)
[2023-06-14 09:16] LABS: Alanine Aminotransferase 12 U/L (6-50); Albumin Level 3.2 g/dL (3.5-5.1); Alkaline Phosphatase 261 U/L (38-126); Anion Gap 8 mmol/L (8-16); Aspartate Amino Transferase 38 U/L (17-59); Bilirubin,Total 0.6 mg/dL (0.2-1.3); Blood Urea Nitrogen 24 mg/dL (9-20); Calcium 8.2 mg/dL (8.4-10.2); Carbon Dioxide 24 mmol/L (22-30); Chloride 96 mmol/L (98-107); Estimated CRCL calculation 56 ml/min; Estimated Glomerular Filt Rate > 60; Glucose 117 mg/dL (65-110); Potassium 3.5 mmol/L (3.4-5.0); Sodium 128 mmol/L (137-145)
[2023-06-14 09:44] LABS: Platelet Estimate Adequate (Adequate); Schistocytes None Seen (NORMAL)
[2023-06-14 09:45] LABS: Hypochromasia 2+ (NORMAL); Stomatocytes 1+ (NORMAL)
--- NOTE | 2023-06-14 11:41 | PM.IMPN ---
Progress Note: A&P Assessment and Plan (1) Abdominal ascites: Qualifiers: Ascites type: due to alcoholic cirrhosis Qualified Code(s): K70.31 - Alcoholic cirrhosis of liver with ascites Code(s): R18.8 - Other ascites Status: Acute Assessment and Plan: 06/13/23: Patient had paracentesis today with 5L removal He recently had 5L removed on 06/07/23 and another 6L removed yesterday. Patient has appointment with surgeon on 06/18/23 for Tenckhoff catheter placement 06/14/23: Abdomen very distended today, taunt. Sodium 128, chloride 96, albumin 3.2 Will give 25% albumin today, patient may need another thoracentesis tomorrow pending his labs. (2) Bilateral leg weakness: Code(s): R29.898 - Other symptoms and signs involving the musculoskeletal system Status: Acute Assessment and Plan: 06/13/23: Frequent falls recently. Patient sustained a fall on 06/07/23 after tripping over a toy. Patient fell onto left shoulder. He came in and had x-ray which confirms a humerus fracture. PT and OT ordered for eval and treat volunteer services coordinator involved for outpatient rehab needs. 06/14/23: Continue with current treatment plan (3) Fracture of proximal end of humerus: Qualifiers: Encounter type: subsequent encounter Fracture healing: with routine healing Fracture morphology: unspecified fracture morphology Fracture type: closed Laterality: left Qualified Code(s): S42.202D - Unspecified fracture of upper end of left humerus, subsequent encounter for fracture with routine healing Code(s): S42.209A - Unspecified fracture of upper end of unspecified humerus, initial encounter for closed fracture Status: Acute Assessment and Plan: 06/13/23: Continue to ice, rest, and elevate arm Continue with sling Continue pain control efforts 06/14/23: Continue with current treatment plan (4) Fall: Qualifiers: Encounter type: initial encounter Qualified Code(s): W19.XXXA - Unspecified fall, initial encounter Code(s): W19.XXXA - Unspecified fall, initial encounter Status: Acute Assessment and Plan: 06/13/23: Has fallen 3x recently. 1st time was when he tripped over son's toy and broke his left humerus. 2nd time he tripped over his cat. Third time his legs were to weak causing him to fall. PT and OT ordered Case management following for rehab needs. 06/14/23: Continue PT and OT Case management following for rehab needs, waiting approval for rehab via insurance Time Spent With Patient Time with patient: 25 - 35 minutes Subjective Date/time seen: 06/14/23 11:41 Interval history: 06/13/23: This is a 53 year old male who presented to the hospital for evaluation after ground level fall and weakness. Patient has significant past medical history of end stage cirrhosis requiring frequent paracentesis. Last paracentesis was done on 06/07/23 with 5L fluid removal. He had another paracentesis done yesterday with 6L fluid removal. He has consultation with [facility] on 06/18/22 for possible Tenckhoff catheter placement for his recurrent ascites as a palliative measure. Patient had a recent fracture due to a fall, to his left humerus in which he elected medical management. Head CT was negative, left shoulder x-ray showing unchanged healing two-part fracture of proximal left humerus. On examination today patient is alert and oriented x3, lying in the bed. He has a left arm sling for his left humerus fx. He reports his pain in his abdomen at the paracentesis site 10/10 and left shoulder pain at 8/10. Labs today reveal WBC 6.8, Hgb 9.6, Hct 34.2, Na+ 132, BUN 23, Creatinine 1.20, Bg ranging 101-137, liver enzymes are normal, total bili 0.4, Alk phos 226, ammonia level <9, total CK 28, albumin 3.3. Case management consulted for outpatient rehab needs. PT and OT ordered. 06/14/23: On examination today patient is alert oriented x3, lying in the bed.
[2023-06-14 12:10] LABS: Glucose Point of Care 154 mg/dl (65-105)
[2023-06-14] MEDS: ALBUMIN HUMAN 25% 25 GM/100 ML 100 ML IVPB (14:05)
[2023-06-14 16:56] LABS: Glucose Point of Care 149 mg/dl (65-105)
[2023-06-14] MEDS: GABAPENTIN 300 MG CAPSULE PO (20:43)
[2023-06-15 00:35] LABS: Glucose Point of Care 155 mg/dl (65-105)
[2023-06-15] MEDS: oxyCODONE HCL (*CRX) 5 MG TAB IR 20 MG PO ×5 (00:42→22:38)
[2023-06-15] MEDS: MORPHINE SULFATE (*CRX) 2 MG/ML INJ IV PUSH ×4 (02:31→20:04)
[2023-06-15 04:02] VITALS: BP 111/67; PULSE 100; RESP 18; TEMP 36.1; O2SAT 94
[2023-06-15 05:51] LABS: Basophils Percent Auto 0.7 % (0.2-1.2); Eosinophils Absolute Auto 0.1 K/mm3 (0-0.3); Eosinophils Percent Auto 2.2 % (0-4.4); Hematocrit 28.6 % (42.0-52.0); Hemoglobin 8.1 g/dL (14.0-18.0); Immature Granulocyte Absolute 0.01 K/mm3 (0.00-0.031); Immature Granulocyte Percent A 0.2 % (0-0.5); Lymphocytes Percent Auto 11.2 % (18.3-44.2); Mean Corpuscular HGB Conc 28.3 g/dl (32-36); Mean Corpuscular Hemoglobin 22.9 pg (26-34); Mean Corpuscular Volume 80.8 fl (80-100); Mean Platelet Volume 11.3 fl (7.4-10.4); Monocytes Absolute Auto 0.6 K/mm3 (0.1-0.6); Monocytes Percent Auto 14.3 % (2.6-8.5); Neutrophils Absolute Auto 3.2 K/mm3 (1.3-6.7); Neutrophils Percent Auto 71.4 % (45.5-73.1); Platelet Count Result 148 k/mm3 (150-375); Red Blood Count 3.54 M/mm3 (4.6-6.20); Red Cell Distribution Width 16.9 % (11.5-14.5); White Blood Count 4.5 K/mm3 (4.5-10.0)
[2023-06-15 06:09] LABS: Alanine Aminotransferase 13 U/L (6-50); Albumin Level 3.2 g/dL (3.5-5.1); Alkaline Phosphatase 219 U/L (38-126); Anion Gap 10 mmol/L (8-16); Aspartate Amino Transferase 31 U/L (17-59); Bilirubin,Total 0.5 mg/dL (0.2-1.3); Blood Urea Nitrogen 24 mg/dL (9-20); Calcium 8.4 mg/dL (8.4-10.2); Carbon Dioxide 25 mmol/L (22-30); Chloride 96 mmol/L (98-107); Estimated CRCL calculation 52 ml/min; Estimated Glomerular Filt Rate 58; Glucose 202 mg/dL (65-110); Potassium 2.9 mmol/L (3.4-5.0); Sodium 131 mmol/L (137-145)
[2023-06-15 06:36] LABS: Anisocytosis 1+ (NORMAL); Hypochromasia 2+ (NORMAL); Schistocytes None Seen (NORMAL)
[2023-06-15 07:30] LABS: Glucose Point of Care 143 mg/dl (65-105)
[2023-06-15] MEDS: FUROSEMIDE INJ 100 MG/10 ML VIAL 80 MG IV PUSH (08:46)
[2023-06-15] MEDS: PANTOPRAZOLE 40 MG TABLET PO ×2 (08:47→20:03)
[2023-06-15] MEDS: MIDODRINE HCL 2.5 MG TABLET 5 MG PO ×3 (08:47→17:01)
[2023-06-15] MEDS: ALBUMIN HUMAN 25% 25 GM/100 ML 100 ML IVPB (08:47)
[2023-06-15] MEDS: APIXABAN 5 MG TABLET PO ×2 (08:47→17:01)
[2023-06-15 11:41] LABS: Glucose Point of Care 175 mg/dl (65-105)
[2023-06-15 13:52] VITALS: BP 110/61; PULSE 99; RESP 18; TEMP 36.4; O2SAT 100
--- NOTE | 2023-06-15 14:14 | P.PNIM_ITS ---
Progress Note: A&P Assessment and Plan (1) Abdominal ascites: Qualifiers: Ascites type: due to alcoholic cirrhosis Qualified Code(s): K70.31 - Alcoholic cirrhosis of liver with ascites Code(s): R18.8 - Other ascites Status: Acute Assessment and Plan: 06/13/23: * Patient had paracentesis today with 5L removal * He recently had 5L removed on 06/07/23 and another 6L removed yesterday. * Patient has appointment with surgeon on 06/18/23 for Tenckhoff catheter placement 06/14/23: * Abdomen very distended today, taunt. * Sodium 128, chloride 96, albumin 3.2 * Will give 25% albumin today, patient may need another paracentesis tomorrow pending his labs. 06/15/23: * No change to abdomen, remains very distended, taunt. * Na+ 131, Chloride 96, albumin 3.2 * Will give another 25% albumin today, plan for US guided paracentesis tomorrow. * Will restart his Lasix 80 mg BID oral and Spironolactone now, DC IV Lasix as it is not showing much benefit. (2) Bilateral leg weakness: Code(s): R29.898 - Other symptoms and signs involving the musculoskeletal system Status: Acute Assessment and Plan: 06/13/23: * Frequent falls recently. Patient sustained a fall on 06/07/23 after tripping over a toy. Patient fell onto left shoulder. He came in and had x-ray which confirms a humerus fracture. * PT and OT ordered for eval and treat * coordinator integrated marketing involved for outpatient rehab needs. 06/14/23: * Continue with current treatment plan (3) Fracture of proximal end of humerus: Qualifiers: Encounter type: subsequent encounter Fracture healing: with routine healing Fracture morphology: unspecified fracture morphology Fracture type: closed Laterality: left Qualified Code(s): S42.202D - Unspecified fracture of upper end of left humerus, subsequent encounter for fracture with routine healing Code(s): S42.209A - Unspecified fracture of upper end of unspecified humerus, initial encounter for closed fracture Status: Acute Assessment and Plan: 06/13/23: * Continue to ice, rest, and elevate arm * Continue with sling * Continue pain control efforts 06/14/23: * Continue with current treatment plan (4) Fall: Qualifiers: Encounter type: initial encounter Qualified Code(s): W19.XXXA - Unspecified fall, initial encounter Code(s): W19.XXXA - Unspecified fall, initial encounter Status: Acute Assessment and Plan: 06/13/23: * Has fallen 3x recently. 1st time was when he tripped over son's toy and broke his left humerus. 2nd time he tripped over his cat. Third time his legs were to weak causing him to fall. * PT and OT ordered * Case management following for rehab needs. 06/14/23: * Continue PT and OT * Case management following for rehab needs, waiting approval for rehab via insurance Time Spent With Patient Time with patient: 25 - 35 minutes Subjective Date/time seen: 06/15/23 14:14 Interval history: 06/13/23: This is a 53 year old male who presented to the hospital for evaluation after ground level fall and weakness. Patient has significant past medical history of end stage cirrhosis requiring frequent paracentesis. Last paracentesis was done on 06/07/23 with 5L fluid removal. He had another paracentesis done yesterday with 6L fluid removal. He has consultation with [facility] on 06/18/22 for possible Tenckhoff catheter placement for his recurrent ascites as a palliative measure. Patient had a recent fracture due to a fall, to his left humerus in which he elec
--- NOTE | 2023-06-15 14:14 | PM.IMPN ---
Progress Note: A&P Assessment and Plan (1) Abdominal ascites: Qualifiers: Ascites type: due to alcoholic cirrhosis Qualified Code(s): K70.31 - Alcoholic cirrhosis of liver with ascites Code(s): R18.8 - Other ascites Status: Acute Assessment and Plan: 06/13/23: Patient had paracentesis today with 5L removal He recently had 5L removed on 06/07/23 and another 6L removed yesterday. Patient has appointment with surgeon on 06/18/23 for Tenckhoff catheter placement 06/14/23: Abdomen very distended today, taunt. Sodium 128, chloride 96, albumin 3.2 Will give 25% albumin today, patient may need another paracentesis tomorrow pending his labs. 06/15/23: No change to abdomen, remains very distended, taunt. Na+ 131, Chloride 96, albumin 3.2 Will give another 25% albumin today, plan for US guided paracentesis tomorrow. Will restart his Lasix 80 mg BID oral and Spironolactone now, DC IV Lasix as it is not showing much benefit. (2) Bilateral leg weakness: Code(s): R29.898 - Other symptoms and signs involving the musculoskeletal system Status: Acute Assessment and Plan: 06/13/23: Frequent falls recently. Patient sustained a fall on 06/07/23 after tripping over a toy. Patient fell onto left shoulder. He came in and had x-ray which confirms a humerus fracture. PT and OT ordered for eval and treat airport operations coordinator involved for outpatient rehab needs. 06/14/23: Continue with current treatment plan (3) Fracture of proximal end of humerus: Qualifiers: Encounter type: subsequent encounter Fracture healing: with routine healing Fracture morphology: unspecified fracture morphology Fracture type: closed Laterality: left Qualified Code(s): S42.202D - Unspecified fracture of upper end of left humerus, subsequent encounter for fracture with routine healing Code(s): S42.209A - Unspecified fracture of upper end of unspecified humerus, initial encounter for closed fracture Status: Acute Assessment and Plan: 06/13/23: Continue to ice, rest, and elevate arm Continue with sling Continue pain control efforts 06/14/23: Continue with current treatment plan (4) Fall: Qualifiers: Encounter type: initial encounter Qualified Code(s): W19.XXXA - Unspecified fall, initial encounter Code(s): W19.XXXA - Unspecified fall, initial encounter Status: Acute Assessment and Plan: 06/13/23: Has fallen 3x recently. 1st time was when he tripped over son's toy and broke his left humerus. 2nd time he tripped over his cat. Third time his legs were to weak causing him to fall. PT and OT ordered Case management following for rehab needs. 06/14/23: Continue PT and OT Case management following for rehab needs, waiting approval for rehab via insurance Time Spent With Patient Time with patient: 25 - 35 minutes Subjective Date/time seen: 06/15/23 14:14 Interval history: 06/13/23: This is a 53 year old male who presented to the hospital for evaluation after ground level fall and weakness. Patient has significant past medical history of end stage cirrhosis requiring frequent paracentesis. Last paracentesis was done on 06/07/23 with 5L fluid removal. He had another paracentesis done yesterday with 6L fluid removal. He has consultation with [facility] surgery on 06/18/22 for possible Tenckhoff catheter placement for his recurrent ascites as a palliative measure. Patient had a recent fracture due to a fall, to his left humerus in which he elected medical management. Head CT was negative, left shoulder x-ray showing unchanged healing two-part fracture of proximal left humerus. On examination today patient is alert and oriented x3, lying in the bed. He has a left arm sling for his left humerus fx. He reports his pain in his abdomen at the paracentesis site 10/10 and left shoulder pain at 8/10. Labs today reveal WBC 6.8, Hgb 9.6, Hct 34.2, Na+ 132, BUN 23,
[2023-06-15] MEDS: POTASSIUM CHLORIDE 20 MEQ ER TABLET 40 MEQ PO (16:05)
[2023-06-15 16:49] LABS: Glucose Point of Care 177 mg/dl (65-105)
[2023-06-15] MEDS: FUROSEMIDE 40 MG TABLET 80 MG PO (17:01)
[2023-06-15] MEDS: ONDANSETRON INJ 4 MG/2 ML VIAL IV PUSH (17:41)
[2023-06-15 20:00] VITALS: PULSE 98; RESP 18; O2SAT 94
[2023-06-15] MEDS: GABAPENTIN 300 MG CAPSULE PO (20:03)
[2023-06-15] MEDS: SPIRONOLACTONE 50 MG TABLET 100 MG PO (20:03)
[2023-06-15] MEDS: POTASSIUM CHLORIDE 20 MEQ ER TABLET PO (20:03)
[2023-06-15 20:46] VITALS: BP 107/59; PULSE 98; RESP 18; TEMP 36.3; O2SAT 94
[2023-06-16] MEDS: MORPHINE SULFATE (*CRX) 2 MG/ML INJ IV PUSH ×6 (00:10→20:20)
[2023-06-16 04:06] VITALS: BP 109/69; PULSE 97; RESP 18; TEMP 36.2; O2SAT 99
[2023-06-16 06:06] LABS: Basophils Percent Auto 0.6 % (0.2-1.2); Eosinophils Absolute Auto 0.1 K/mm3 (0-0.3); Hematocrit 27.2 % (42.0-52.0); Hemoglobin 7.6 g/dL (14.0-18.0); Immature Granulocyte Absolute 0.01 K/mm3 (0.00-0.031); Immature Granulocyte Percent A 0.3 % (0-0.5); Lymphocytes Absolute Auto 0.46 K/mm3 (0.9-3.2); Mean Corpuscular HGB Conc 27.9 g/dl (32-36); Mean Corpuscular Volume 82.4 fl (80-100); Mean Platelet Volume 12.3 fl (7.4-10.4); Monocytes Absolute Auto 0.5 K/mm3 (0.1-0.6); Monocytes Percent Auto 15.8 % (2.6-8.5); Neutrophils Absolute Auto 2.2 K/mm3 (1.3-6.7); Neutrophils Percent Auto 66.3 % (45.5-73.1); Platelet Count Result 133 k/mm3 (150-375); Red Cell Distribution Width 17.1 % (11.5-14.5); White Blood Count 3.3 K/mm3 (4.5-10.0)
[2023-06-16 06:10] LABS: Alanine Aminotransferase 10 U/L (6-50); Albumin Level 3.3 g/dL (3.5-5.1); Alkaline Phosphatase 186 U/L (38-126); Anion Gap 6 mmol/L (8-16); Aspartate Amino Transferase 27 U/L (17-59); Bilirubin,Total 0.5 mg/dL (0.2-1.3); Blood Urea Nitrogen 25 mg/dL (9-20); Calcium 8.4 mg/dL (8.4-10.2); Carbon Dioxide 32 mmol/L (22-30); Chloride 95 mmol/L (98-107); Estimated CRCL calculation 48 ml/min; Estimated Glomerular Filt Rate 53; Glucose 130 mg/dL (65-110); Potassium 3.2 mmol/L (3.4-5.0); Sodium 133 mmol/L (137-145)
[2023-06-16] MEDS: oxyCODONE HCL (*CRX) 5 MG TAB IR 20 MG PO ×5 (06:12→22:51)
[2023-06-16] MEDS: SPIRONOLACTONE 50 MG TABLET 100 MG PO ×2 (08:06→20:20)
[2023-06-16] MEDS: PANTOPRAZOLE 40 MG TABLET PO ×2 (08:06→20:20)
[2023-06-16] MEDS: MIDODRINE HCL 2.5 MG TABLET 5 MG PO ×3 (08:06→17:55)
[2023-06-16 08:07] LABS: Glucose Point of Care 116 mg/dl (65-105)
[2023-06-16 08:10] LABS: Anisocytosis 2+ (NORMAL); Hypochromasia 2+ (NORMAL); Platelet Estimate Adequate (Adequate); Schistocytes None Seen (NORMAL)
--- NOTE | 2023-06-16 08:35 | PCOTNOTE ---
Attempted to see Patient at this time. Patient getting ready to go down for a paracentesis. Patient stated he is will to perform when he gets back. Will check back at a later time.
[2023-06-16 09:06] LABS: Glucose Point of Care 124 mg/dl (65-105)
[2023-06-16] MEDS: FUROSEMIDE 40 MG TABLET 80 MG PO ×2 (10:28→17:55)
[2023-06-16 11:30] LABS: Glucose Point of Care 141 mg/dl (65-105)
[2023-06-16] MEDS: ALBUMIN HUMAN 25% 25 GM/100 ML 100 ML IVPB (12:07)
[2023-06-16] MEDS: POTASSIUM CHLORIDE 20 MEQ ER TABLET PO (12:08)
--- NOTE | 2023-06-16 12:10 | P.PNIM_ITS ---
Progress Note: A&P Assessment and Plan (1) Abdominal ascites: Qualifiers: Ascites type: due to alcoholic cirrhosis Qualified Code(s): K70.31 - Alcoholic cirrhosis of liver with ascites Code(s): R18.8 - Other ascites Status: Acute Assessment and Plan: 06/13/23: * Patient had paracentesis today with 5L removal * He recently had 5L removed on 06/07/23 and another 6L removed yesterday. * Patient has appointment with surgeon on 06/18/23 for Tenckhoff catheter placement 06/14/23: * Abdomen very distended today, taunt. * Sodium 128, chloride 96, albumin 3.2 * Will give 25% albumin today, patient may need another paracentesis tomorrow pending his labs. 06/15/23: * No change to abdomen, remains very distended, taunt. * Na+ 131, Chloride 96, albumin 3.2 * Will give another 25% albumin today, plan for US guided paracentesis tomorrow. * Will restart his Lasix 80 mg BID oral and Spironolactone now, DC IV Lasix as it is not showing much benefit. 06/16/23: * sodium 133, chloride 95, albumin 3.3 * will give another dose of albumin today * plan for paracentesis tomorrow, Eliquis on hold * continue with home medications * plan for discharge tomorrow on or thursday. (2) Bilateral leg weakness: Code(s): R29.898 - Other symptoms and signs involving the musculoskeletal system Status: Acute Assessment and Plan: 06/13/23: * Frequent falls recently. Patient sustained a fall on 06/07/23 after tripping over a toy. Patient fell onto left shoulder. He came in and had x-ray which confirms a humerus fracture. * PT and OT ordered for eval and treat * audience coordinator involved for outpatient rehab needs. 06/14/23: * Continue with current treatment plan (3) Fracture of proximal end of humerus: Qualifiers: Encounter type: subsequent encounter Fracture healing: with routine healing Fracture morphology: unspecified fracture morphology Fracture type: closed Laterality: left Qualified Code(s): S42.202D - Unspecified fracture of upper end of left humerus, subsequent encounter for fracture with routine healing Code(s): S42.209A - Unspecified fracture of upper end of unspecified humerus, initial encounter for closed fracture Status: Acute Assessment and Plan: 06/13/23: * Continue to ice, rest, and elevate arm * Continue with sling * Continue pain control efforts 06/14/23: * Continue with current treatment plan (4) Fall: Qualifiers: Encounter type: initial encounter Qualified Code(s): W19.XXXA - Unspecified fall, initial encounter Code(s): W19.XXXA - Unspecified fall, initial encounter Status: Acute Assessment and Plan: 06/13/23: * Has fallen 3x recently. 1st time was when he tripped over son's toy and broke his left humerus. 2nd time he tripped over his cat. Third time his legs were to weak causing him to fall. * PT and OT ordered * Case management following for rehab needs. 06/14/23: * Continue PT and OT * Case management following for rehab needs, waiting approval for rehab via insurance 06/16/23: * no change to current treatment plan Time Spent With Patient Time with patient: 25 - 35 minutes Subjective Date/time seen: 06/16/23 12:10 Interval history: 06/13/23: This is a 53 year old male who presented to the hospital for evaluation after ground level fall and weakness. Patient has significant past medical history of end stage cirrhosis requiring frequent paracentesis. Last paracentesis was done on
--- NOTE | 2023-06-16 12:10 | PM.IMPN ---
Progress Note: A&P Assessment and Plan (1) Abdominal ascites: Qualifiers: Ascites type: due to alcoholic cirrhosis Qualified Code(s): K70.31 - Alcoholic cirrhosis of liver with ascites Code(s): R18.8 - Other ascites Status: Acute Assessment and Plan: 06/13/23: Patient had paracentesis today with 5L removal He recently had 5L removed on 06/07/23 and another 6L removed yesterday. Patient has appointment with surgeon on 06/18/23 for Tenckhoff catheter placement 06/14/23: Abdomen very distended today, taunt. Sodium 128, chloride 96, albumin 3.2 Will give 25% albumin today, patient may need another paracentesis tomorrow pending his labs. 06/15/23: No change to abdomen, remains very distended, taunt. Na+ 131, Chloride 96, albumin 3.2 Will give another 25% albumin today, plan for US guided paracentesis tomorrow. Will restart his Lasix 80 mg BID oral and Spironolactone now, DC IV Lasix as it is not showing much benefit. 06/16/23: sodium 133, chloride 95, albumin 3.3 will give another dose of albumin today plan for paracentesis tomorrow, Eliquis on hold continue with home medications plan for discharge tomorrow on or thursday. (2) Bilateral leg weakness: Code(s): R29.898 - Other symptoms and signs involving the musculoskeletal system Status: Acute Assessment and Plan: 06/13/23: Frequent falls recently. Patient sustained a fall on 06/07/23 after tripping over a toy. Patient fell onto left shoulder. He came in and had x-ray which confirms a humerus fracture. PT and OT ordered for eval and treat operations coordinator involved for outpatient rehab needs. 06/14/23: Continue with current treatment plan (3) Fracture of proximal end of humerus: Qualifiers: Encounter type: subsequent encounter Fracture healing: with routine healing Fracture morphology: unspecified fracture morphology Fracture type: closed Laterality: left Qualified Code(s): S42.202D - Unspecified fracture of upper end of left humerus, subsequent encounter for fracture with routine healing Code(s): S42.209A - Unspecified fracture of upper end of unspecified humerus, initial encounter for closed fracture Status: Acute Assessment and Plan: 06/13/23: Continue to ice, rest, and elevate arm Continue with sling Continue pain control efforts 06/14/23: Continue with current treatment plan (4) Fall: Qualifiers: Encounter type: initial encounter Qualified Code(s): W19.XXXA - Unspecified fall, initial encounter Code(s): W19.XXXA - Unspecified fall, initial encounter Status: Acute Assessment and Plan: 06/13/23: Has fallen 3x recently. 1st time was when he tripped over son's toy and broke his left humerus. 2nd time he tripped over his cat. Third time his legs were to weak causing him to fall. PT and OT ordered Case management following for rehab needs. 06/14/23: Continue PT and OT Case management following for rehab needs, waiting approval for rehab via insurance 06/16/23: no change to current treatment plan Time Spent With Patient Time with patient: 25 - 35 minutes Subjective Date/time seen: 06/16/23 12:10 Interval history: 06/13/23: This is a 53 year old male who presented to the hospital for evaluation after ground level fall and weakness. Patient has significant past medical history of end stage cirrhosis requiring frequent paracentesis. Last paracentesis was done on 06/07/23 with 5L fluid removal. He had another paracentesis done yesterday with 6L fluid removal. He has consultation with [facility] surgery on 06/18/22 for possible Tenckhoff catheter placement for his recurrent ascites as a palliative measure. Patient had a recent fracture due to a fall, to his left humerus in which he elected medical management. Head CT was negative, left shoulder x-ray showing unchanged healing two-part fracture of proximal left humerus
[2023-06-16 14:00] VITALS: BP 112/69; PULSE 104; RESP 16; TEMP 36.7; O2SAT 99
[2023-06-16 16:29] LABS: Glucose Point of Care 140 mg/dl (65-105)
[2023-06-16] MEDS: APIXABAN 5 MG TABLET PO (17:55)
[2023-06-16 20:00] VITALS: PULSE 93; RESP 19; O2SAT 96
[2023-06-16] MEDS: GABAPENTIN 300 MG CAPSULE PO (20:20)
[2023-06-16 20:31] VITALS: BP 108/70; PULSE 97; RESP 18; TEMP 35.9; O2SAT 95
[2023-06-17] MEDS: MORPHINE SULFATE (*CRX) 2 MG/ML INJ IV PUSH ×5 (00:07→21:04)
[2023-06-17] MEDS: oxyCODONE HCL (*CRX) 5 MG TAB IR 20 MG PO ×5 (02:51→23:45)
[2023-06-17 05:50] VITALS: BP 108/67; PULSE 100; RESP 20; TEMP 36.1; O2SAT 93
[2023-06-17 06:09] LABS: Basophils Percent Auto 0.9 % (0.2-1.2); Eosinophils Absolute Auto 0.1 K/mm3 (0-0.3); Eosinophils Percent Auto 3.1 % (0-4.4); Hemoglobin 7.4 g/dL (14.0-18.0); Immature Granulocyte Absolute 0.01 K/mm3 (0.00-0.031); Immature Granulocyte Percent A 0.3 % (0-0.5); Immature Platelet Fraction Pct 6.8 % (0.9-11.2); Lymphocytes Absolute Auto 0.52 K/mm3 (0.9-3.2); Lymphocytes Percent Auto 14.8 % (18.3-44.2); Mean Corpuscular HGB Conc 27.4 g/dl (32-36); Mean Corpuscular Hemoglobin 22.6 pg (26-34); Mean Corpuscular Volume 82.3 fl (80-100); Mean Platelet Volume 10.8 fl (7.4-10.4); Monocytes Absolute Auto 0.6 K/mm3 (0.1-0.6); Monocytes Percent Auto 17.4 % (2.6-8.5); Neutrophils Absolute Auto 2.2 K/mm3 (1.3-6.7); Neutrophils Percent Auto 63.5 % (45.5-73.1); Platelet Count Result 120 k/mm3 (150-375); Red Blood Count 3.28 M/mm3 (4.6-6.20); Red Cell Distribution Width 17.1 % (11.5-14.5); White Blood Count 3.5 K/mm3 (4.5-10.0)
[2023-06-17 06:17] LABS: Alanine Aminotransferase 10 U/L (6-50); Albumin Level 3.7 g/dL (3.5-5.1); Alkaline Phosphatase 201 U/L (38-126); Anion Gap 11 mmol/L (8-16); Aspartate Amino Transferase 32 U/L (17-59); Bilirubin,Total 0.6 mg/dL (0.2-1.3); Blood Urea Nitrogen 27 mg/dL (9-20); Calcium 8.9 mg/dL (8.4-10.2); Carbon Dioxide 27 mmol/L (22-30); Chloride 95 mmol/L (98-107); Estimated CRCL calculation 56 ml/min; Estimated Glomerular Filt Rate > 60; Glucose 140 mg/dL (65-110); Sodium 133 mmol/L (137-145)
[2023-06-17 06:21] LABS: Glucose Point of Care 120 mg/dl (65-105)
[2023-06-17 07:51] LABS: Glucose Point of Care 119 mg/dl (65-105)
[2023-06-17 07:57] LABS: Anisocytosis 1+ (NORMAL); Hypochromasia 2+ (NORMAL); Platelet Estimate Decreased (Adequate); Schistocytes None Seen (NORMAL)
[2023-06-17] MEDS: PANTOPRAZOLE 40 MG TABLET PO ×2 (08:16→19:55)
[2023-06-17] MEDS: SPIRONOLACTONE 50 MG TABLET 100 MG PO ×2 (08:16→19:55)
[2023-06-17] MEDS: MIDODRINE HCL 2.5 MG TABLET 5 MG PO ×3 (08:16→17:02)
--- NOTE | 2023-06-17 08:30 | PCOTNOTE ---
Attempted to see Patient at this time. Patient stated he is getting ready to go down for a paracentesis that they has cancelled yesterday. Patient requested therapy to come back this afternoon. Will check back.
[2023-06-17 11:38] LABS: Glucose Point of Care 137 mg/dl (65-105)
--- NOTE | 2023-06-17 11:49 | PCPTNOTE ---
Attempted to see patient for PT, however patient was eating at this time and asked PT to come back later.
--- NOTE | 2023-06-17 12:09 | P.PNIM_ITS ---
Progress Note: A&P Assessment and Plan (1) Abdominal ascites: Qualifiers: Ascites type: due to alcoholic cirrhosis Qualified Code(s): K70.31 - Alcoholic cirrhosis of liver with ascites Code(s): R18.8 - Other ascites Status: Acute Assessment and Plan: 06/13/23: * Patient had paracentesis today with 5L removal * He recently had 5L removed on 06/07/23 and another 6L removed yesterday. * Patient has appointment with surgeon on 06/18/23 for Tenckhoff catheter placement 06/14/23: * Abdomen very distended today, taunt. * Sodium 128, chloride 96, albumin 3.2 * Will give 25% albumin today, patient may need another paracentesis tomorrow pending his labs. 06/15/23: * No change to abdomen, remains very distended, taunt. * Na+ 131, Chloride 96, albumin 3.2 * Will give another 25% albumin today, plan for US guided paracentesis tomorrow. * Will restart his Lasix 80 mg BID oral and Spironolactone now, DC IV Lasix as it is not showing much benefit. 06/16/23: * sodium 133, chloride 95, albumin 3.3 * will give another dose of albumin today * plan for paracentesis tomorrow, Eliquis on hold * continue with home medications * plan for discharge on or Thursday. (2) Bilateral leg weakness: Code(s): R29.898 - Other symptoms and signs involving the musculoskeletal system Status: Acute Assessment and Plan: 06/13/23: * Frequent falls recently. Patient sustained a fall on 06/07/23 after tripping over a toy. Patient fell onto left shoulder. He came in and had x-ray which confirms a humerus fracture. * PT and OT ordered for eval and treat * craft coordinator involved for outpatient rehab needs. 06/14/23: * Continue with current treatment plan (3) Fracture of proximal end of humerus: Qualifiers: Encounter type: subsequent encounter Fracture healing: with routine healing Fracture morphology: unspecified fracture morphology Fracture type: closed Laterality: left Qualified Code(s): S42.202D - Unspecified fracture of upper end of left humerus, subsequent encounter for fracture with routine healing Code(s): S42.209A - Unspecified fracture of upper end of unspecified humerus, initial encounter for closed fracture Status: Acute Assessment and Plan: 06/13/23: * Continue to ice, rest, and elevate arm * Continue with sling * Continue pain control efforts 06/14/23: * Continue with current treatment plan (4) Fall: Qualifiers: Encounter type: initial encounter Qualified Code(s): W19.XXXA - Unspecified fall, initial encounter Code(s): W19.XXXA - Unspecified fall, initial encounter Status: Acute Assessment and Plan: 06/13/23: * Has fallen 3x recently. 1st time was when he tripped over son's toy and broke his left humerus. 2nd time he tripped over his cat. Third time his legs were to weak causing him to fall. * PT and OT ordered * Case management following for rehab needs. 06/14/23: * Continue PT and OT * Case management following for rehab needs, waiting approval for rehab via insurance 06/16/23: * no change to current treatment plan Plan Patient reports that he will not have help until Thursday and wants to go Thursday morning or when home health can come see him he. Suspect that he is out of his home oxycodone and he needs to have virtual visit with primary care provider via his smart phone tomorrow. Subjective Date/time seen: 06/17/23 12:09 Interval history: 06/13/23: This is a 53 year old male who
--- NOTE | 2023-06-17 12:09 | PM.IMPN ---
Progress Note: A&P Assessment and Plan (1) Abdominal ascites: Qualifiers: Ascites type: due to alcoholic cirrhosis Qualified Code(s): K70.31 - Alcoholic cirrhosis of liver with ascites Code(s): R18.8 - Other ascites Status: Acute Assessment and Plan: 06/13/23: Patient had paracentesis today with 5L removal He recently had 5L removed on 06/07/23 and another 6L removed yesterday. Patient has appointment with surgeon on 06/18/23 for Tenckhoff catheter placement 06/14/23: Abdomen very distended today, taunt. Sodium 128, chloride 96, albumin 3.2 Will give 25% albumin today, patient may need another paracentesis tomorrow pending his labs. 06/15/23: No change to abdomen, remains very distended, taunt. Na+ 131, Chloride 96, albumin 3.2 Will give another 25% albumin today, plan for US guided paracentesis tomorrow. Will restart his Lasix 80 mg BID oral and Spironolactone now, DC IV Lasix as it is not showing much benefit. 06/16/23: sodium 133, chloride 95, albumin 3.3 will give another dose of albumin today plan for paracentesis tomorrow, Eliquis on hold continue with home medications plan for discharge on or Thursday. (2) Bilateral leg weakness: Code(s): R29.898 - Other symptoms and signs involving the musculoskeletal system Status: Acute Assessment and Plan: 06/13/23: Frequent falls recently. Patient sustained a fall on 06/07/23 after tripping over a toy. Patient fell onto left shoulder. He came in and had x-ray which confirms a humerus fracture. PT and OT ordered for eval and treat coordinator volunteer services involved for outpatient rehab needs. 06/14/23: Continue with current treatment plan (3) Fracture of proximal end of humerus: Qualifiers: Encounter type: subsequent encounter Fracture healing: with routine healing Fracture morphology: unspecified fracture morphology Fracture type: closed Laterality: left Qualified Code(s): S42.202D - Unspecified fracture of upper end of left humerus, subsequent encounter for fracture with routine healing Code(s): S42.209A - Unspecified fracture of upper end of unspecified humerus, initial encounter for closed fracture Status: Acute Assessment and Plan: 06/13/23: Continue to ice, rest, and elevate arm Continue with sling Continue pain control efforts 06/14/23: Continue with current treatment plan (4) Fall: Qualifiers: Encounter type: initial encounter Qualified Code(s): W19.XXXA - Unspecified fall, initial encounter Code(s): W19.XXXA - Unspecified fall, initial encounter Status: Acute Assessment and Plan: 06/13/23: Has fallen 3x recently. 1st time was when he tripped over son's toy and broke his left humerus. 2nd time he tripped over his cat. Third time his legs were to weak causing him to fall. PT and OT ordered Case management following for rehab needs. 06/14/23: Continue PT and OT Case management following for rehab needs, waiting approval for rehab via insurance 06/16/23: no change to current treatment plan Plan Patient reports that he will not have help until Thursday and wants to go Thursday morning or when home health can come see him he. Suspect that he is out of his home oxycodone and he needs to have virtual visit with primary care provider via his smart phone tomorrow. Subjective Date/time seen: 06/17/23 12:09 Interval history: 06/13/23: This is a 53 year old male who presented to the hospital for evaluation after ground level fall and weakness. Patient has significant past medical history of end stage cirrhosis requiring frequent paracentesis. Last paracentesis was done on 06/07/23 with 5L fluid removal. He had another paracentesis done yesterday with 6L fluid removal. He has consultation with [facility] surgery on 06/18/22 for possible Tenckhoff catheter placement for his recurrent ascites as a palliative measure. Patient
[2023-06-17] MEDS: FUROSEMIDE 40 MG TABLET 80 MG PO ×2 (12:15→17:02)
[2023-06-17] MEDS: MORPHINE SULFATE (*CRX) 4 MG/ML INJ IV PUSH (12:15)
[2023-06-17 14:00] VITALS: BP 108/70; PULSE 94; RESP 14; TEMP 36.7; O2SAT 98
--- NOTE | 2023-06-17 14:05 | PCOTNOTE ---
Patient declined having treatment session this P.M. Patient stated he has had a busy day, not up for it today.
--- NOTE | 2023-06-17 14:55 | PCPTNOTE ---
Attempted to see patient for PT, however patient was just getting started eating lunch and wanted to eat lunch. Patient had a later breakfast and lunch this date due to a procedure this morning.
[2023-06-17 16:42] LABS: Glucose Point of Care 153 mg/dl (65-105)
[2023-06-17] MEDS: APIXABAN 5 MG TABLET PO (17:02)
[2023-06-17] MEDS: GABAPENTIN 300 MG CAPSULE PO (19:55)
[2023-06-17] MEDS: ONDANSETRON INJ 4 MG/2 ML VIAL IV PUSH (19:55)
[2023-06-17 20:44] LABS: Glucose Point of Care 123 mg/dl (65-105)
[2023-06-17 21:28] VITALS: BP 117/72; PULSE 93; RESP 19; TEMP 36.1; O2SAT 100
[2023-06-18] MEDS: MORPHINE SULFATE (*CRX) 2 MG/ML INJ IV PUSH ×2 (00:57→05:03)
[2023-06-18] MEDS: oxyCODONE HCL (*CRX) 5 MG TAB IR 20 MG PO ×2 (03:35→07:44)
[2023-06-18 06:00] VITALS: BP 109/73; PULSE 87; RESP 19; TEMP 36.6; O2SAT 94
[2023-06-18 06:34] LABS: Basophils Percent Auto 0.9 % (0.2-1.2); Eosinophils Absolute Auto 0.1 K/mm3 (0-0.3); Eosinophils Percent Auto 4.1 % (0-4.4); Hematocrit 27.7 % (42.0-52.0); Hemoglobin 7.9 g/dL (14.0-18.0); Immature Granulocyte Absolute 0.02 K/mm3 (0.00-0.031); Immature Granulocyte Percent A 0.6 % (0-0.5); Lymphocytes Absolute Auto 0.47 K/mm3 (0.9-3.2); Lymphocytes Percent Auto 13.6 % (18.3-44.2); Mean Corpuscular HGB Conc 28.5 g/dl (32-36); Mean Corpuscular Hemoglobin 23.3 pg (26-34); Mean Corpuscular Volume 81.7 fl (80-100); Mean Platelet Volume 10.3 fl (7.4-10.4); Monocytes Absolute Auto 0.6 K/mm3 (0.1-0.6); Monocytes Percent Auto 16.8 % (2.6-8.5); Neutrophils Absolute Auto 2.2 K/mm3 (1.3-6.7); Nucleated Red Blood Cells Absolute Auto 0.1 K/mm3 (0.0-0.012); Nucleated Red Blood Cells Perc 1.7 % (0.0-0.2); Platelet Count Result 117 k/mm3 (150-375); Red Blood Count 3.39 M/mm3 (4.6-6.20); White Blood Count 3.5 K/mm3 (4.5-10.0)
[2023-06-18 06:45] LABS: Alanine Aminotransferase 10 U/L (6-50); Albumin Level 3.8 g/dL (3.5-5.1); Alkaline Phosphatase 205 U/L (38-126); Anion Gap 9 mmol/L (8-16); Aspartate Amino Transferase 31 U/L (17-59); Bilirubin,Total 0.6 mg/dL (0.2-1.3); Blood Urea Nitrogen 28 mg/dL (9-20); Calcium 9.2 mg/dL (8.4-10.2); Carbon Dioxide 30 mmol/L (22-30); Chloride 93 mmol/L (98-107); Estimated CRCL calculation 45 ml/min; Estimated Glomerular Filt Rate 49; Glucose 146 mg/dL (65-110); Potassium 4.1 mmol/L (3.4-5.0); Sodium 132 mmol/L (137-145)
[2023-06-18 07:14] LABS: Hypochromasia 2+ (NORMAL); Microcytosis 1+ (NORMAL); Platelet Estimate Decreased (Adequate)
[2023-06-18 07:15] LABS: Anisocytosis 1+ (NORMAL); Schistocytes None Seen (NORMAL)
[2023-06-18 08:27] LABS: Glucose Point of Care 216 mg/dl (65-105)
[2023-06-18] MEDS: MIDODRINE HCL 2.5 MG TABLET 5 MG PO (08:29)
[2023-06-18] MEDS: SPIRONOLACTONE 50 MG TABLET 100 MG PO (08:29)
[2023-06-18] MEDS: GABAPENTIN 300 MG CAPSULE PO (08:29)
[2023-06-18] MEDS: FUROSEMIDE 40 MG TABLET 80 MG PO (08:29)
[2023-06-18] MEDS: PANTOPRAZOLE 40 MG TABLET PO (08:29)
[2023-06-18] MEDS: APIXABAN 5 MG TABLET PO (08:30)
[2023-06-18] MEDS: INSULIN ASPART (*BKC) 100 UNITS/ML SUB-Q (08:30)
[2023-06-18] MEDS: MORPHINE SULFATE (*CRX) 4 MG/ML INJ IV PUSH (10:03)
--- NOTE | 2023-06-18 10:38 | PM.DS ---
DS: Admitting Diagnosis Discharge Date 06/18/2022 Admitting Diagnosis Abdominal ascites, bilateral leg weakness, fracture proximal end of humerus, fall DS: Discharge Diagnosis Discharge Diagnosis (1) Abdominal ascites: Qualifiers: Ascites type: due to alcoholic cirrhosis Qualified Code(s): K70.31 - Alcoholic cirrhosis of liver with ascites Code(s): R18.8 - Other ascites Status: Acute (2) Bilateral leg weakness: Code(s): R29.898 - Other symptoms and signs involving the musculoskeletal system Status: Acute (3) Fracture of proximal end of humerus: Qualifiers: Encounter type: subsequent encounter Fracture healing: with routine healing Fracture morphology: unspecified fracture morphology Fracture type: closed Laterality: left Qualified Code(s): S42.D - Unspecified fracture of upper end of left humerus, subsequent encounter for fracture with routine healing Code(s): S42.209A - Unspecified fracture of upper end of unspecified humerus, initial encounter for closed fracture Status: Acute (4) Fall: Qualifiers: Encounter type: initial encounter Qualified Code(s): W19.XXXA - Unspecified fall, initial encounter Code(s): W19.XXXA - Unspecified fall, initial encounter Status: Acute DS: Summary Hospital Course Reason for hospitalization: Taken from previous chart: 53MM w/ PMH 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 He has a consultation with [facility] surgery on 06/18/22 for possible Tenckhoff catheter placement for his recurrent ascites and then subsequent palliative care. He requires paracentesis every 1-2 days. Pt had recent left humerus fracture to which he elected conservative mgmt. AT home he fell 2/2 being weak onto his left arm. He thinks he needs therapy stay. Hospital Course: PT and OT was consulted and rehab placement was recommended but patient ultimately declined and wanted home health. He did receive therapeutic paracentesis on 06/13 and 06/17 while admitted. Patient continued to insist on IV morphine which was ordered p.r.n. and he insisted on receiving it on a timed basis. Patient would get very disruptive and upset with nursing staff if they were ?late.? Additionally, he insisted that this be rotated with his every 4 hour scheduled oxycodone where he was receiving pain medication every 2 hours. Patient has been similar schedule each of his recent hospitalizations which have been increasing in frequency and duration after his recently . Status at Discharge Cognitive/behavioral status at discharge: Awake alert and oriented Functional status at discharge: independent ambulation Overall status at discharge: patient is progressing back to baseline Time Spent with Patient Time attestation: Total time spent providing and/or coordinating discharge services: 35 minutes Time spent: Greater than 30 minutes Exam Narrative: General: Awake alert, appears frustrated, well nourished Head: atraumatic, no encephalopathy Eyes: EOMI, PERRLA, sclera clear ENT: moist mucous membranes, nasal passages clear Neck: supple, no JVD, no adenopathy, trachea midline Cardiac: Normal S1 and S2. No murmur, gallops or friction rubs, peripheral pulses intact. Respiratory: Lungs clear to auscultation, no adventitious lung sounds Gastrointestinal: Rotund but soft, ascites present, normoactive bowel sounds. : voiding without difficulty dark yellow urine. Extremities: moves all extremities well, no edema, good ROM, strength 5/5, limited ROM in left upper arm due to fracture, sling in place. Skin: clean, dry, intact. No wounds or lesions. Neuro: Alert and oriented x4, cranial nerves intact, no neuro deficits. Psych: Depressed mood, frustrated affect DS: Data Data Completed a
[2023-06-18 12:18] LABS: Glucose Point of Care 185 mg/dl (65-105)
== END 2023-06-18 12:35 | disposition home health service (06) | DRG 280 ==
LOC: ANHED 21:09 → ANH2MED 21:41
PROVIDERS: General Practice; Nurse Practitioner Acute Care; Admitting Provider Family Medicine; Emergency Provider Student in an Organized Health Care Education/Training Program; PCP Hospitalist; Visit Provider Nurse Practitioner
DX: K70.31 Alcoholic cirrhosis of liver with ascites (principal); I85.10 Secondary esophageal varices without bleeding; I50.32 Chronic diastolic (congestive) heart failure; I11.0 Hypertensive heart disease with heart failure; K21.9 Gastro-esophageal reflux disease without esophagitis; K76.6 Portal hypertension; K31.89 Other diseases of stomach and duodenum; C61 Malignant neoplasm of prostate; E11.9 Type 2 diabetes mellitus without complications; M19.90 Unspecified osteoarthritis, unspecified site; R29.6 Repeated falls; R29.898 Other symptoms and signs involving the musculoskeletal system; F17.210 Nicotine dependence, cigarettes, uncomplicated; S42.202D Unspecified fracture of upper end of left humerus, subsequent encounter for fracture with routine healing; Z86.73 Personal history of transient ischemic attack (TIA), and cerebral infarction without residual deficits; Z87.442 Personal history of urinary calculi; Z85.6 Personal history of leukemia; Z79.01 Long term (current) use of anticoagulants; Z79.4 Long term (current) use of insulin
CPT/HCPCS: 36415; 49083; 70450; 73030; 80053; 81001; 82140; 82550; 82948; 83690; 83735; 84484; 85025; 85027; 85055; 85610; 85730; 93005; 96374; 96375; 97110; 97161; 97165; 97530; 97535; 99285; A4565; A9270; G0378; J1815; J1940; J2270; J2405; P9047

== ENCOUNTER 2023-06-24 09:30 | Outpatient (RCR) | payer OTHER, SELFPAY ==
--- NOTE | ~2023-06-24 | US_ITS ---
EXAMINATION: US paracentesis abd w/image DATE: 05/29/2023 09:57 INDICATION: Ascites. TECHNIQUE: The procedure and its risks, benefits, and alternatives were discussed with the patient. P otential risks discussed included bleeding and infection. The skin was prepped and draped in sterile fashion. 1% lidocaine was used for local anesthesia. Under ultrasound guidance, a 5 Fr catheter with trochar was advanced into the ascites in the left abdomen. Fluid was aspirated. The catheter was emelina lane, and a dressing was applied. There were no immediate complications. FINDINGS: Ultrasound images demonstrate ascites and the catheter within the fluid. IMPRESSION: 1. Successful ultrasound-guided paracentesis yielding 5000 mL of cloudy, yellow fluid. Reviewed, dictated and finalized at location A. RICAL CONTROL MACHINE OPERATOR IMPRESSION: 1. Successful ultrasound-guided paracentesis yielding 5000 mL of cloudy, yello w fluid.
--- NOTE | ~2023-06-24 | US_ITS ---
EXAMINATION: US paracentesis abd w/image DATE: 05/01/2023 12:22 INDICATION: Ascites. TECHNIQUE: The procedure and its risks, benefits, and alternatives were discussed with the patient. P otential risks discussed included bleeding and infection. The skin was prepped and draped in sterile fashion. 1% lidocaine was used for local anesthesia. Under ultrasound guidance, a 5 Fr catheter with trochar was advanced into the ascites in the left lower quadrant. Fluid was aspirated. The catheter w as removed, and a dressing was applied. There were no immediate complications. FINDINGS: Ultrasound images demonstrate ascites and the catheter within the fluid. IMPRESSION: 1. Successful ultrasound-guided paracentesis yielding 5000 mL of yellow fluid. Reviewed, dictated and finalized at location A. K BUYER
--- NOTE | ~2023-06-24 | US_ITS ---
EXAMINATION: US paracentesis abd w/image DATE: 06/11/2023 10:19 INDICATION: Ascites. TECHNIQUE: The procedure and its risks and benefits were discussed with the patient. Potential risks discussed included bleeding and infection. The skin was prepped and draped in sterile fashion. 1% lid ocaine was used for local anesthesia. Under ultrasound guidance, a 5 Fr catheter with trochar was adv anced into the ascites in the right mid abdomen. Fluid was aspirated into vacuum bottles. The cathete r was removed, and a dressing was applied. There were no immediate complications. FINDINGS: Ultrasound images demonstrate ascites and the catheter within the fluid. IMPRESSION: 1. Successful ultrasound-guided paracentesis yielding 6000 mL of light yellow fluid. Reviewed, dictated and finalized at location A. STICKER
--- NOTE | ~2023-06-24 | US_ITS ---
EXAMINATION: US paracentesis abd w/image DATE: 06/03/2023 13:00 INDICATION: Cirrhosis with ascites TECHNIQUE: The procedure and its risks and benefits were discussed with the patient. Potential risks discussed included bleeding and infection. The skin was prepped and draped in sterile fashion. 1% lid ocaine was used for local anesthesia. Under ultrasound guidance, a 5 Fr catheter with trochar was adv anced into the ascites in the right lower quadrant. Fluid was aspirated into vacuum bottles. The cath eter was removed, and a dressing was applied. There were no immediate complications. FINDINGS: Ultrasound images demonstrate ascites and the catheter within the fluid. IMPRESSION: 1. Successful ultrasound-guided paracentesis yielding 4000 mL of cloudy yellow fluid. Reviewed, dictated and finalized at location A. ICAL EXERCISE PHYSIOLOGIST
--- NOTE | ~2023-06-24 | US_ITS ---
EXAMINATION: US paracentesis abd w/image DATE: 05/06/2023 12:57 INDICATION: Cirrhosis of the liver with ascites TECHNIQUE: The procedure and its risks and benefits were discussed with the patient. Potential risks discussed included bleeding and infection. The skin was prepped and draped in sterile fashion. 1% lid ocaine was used for local anesthesia. Under ultrasound guidance, a 5 Fr catheter with trochar was adv anced into the ascites in the left lower quadrant. Fluid was aspirated into vacuum bottles. The georgette ter was removed, and a dressing was applied. There were no immediate complications. FINDINGS: Ultrasound images demonstrate ascites and the catheter within the fluid. IMPRESSION: 1. Successful ultrasound-guided paracentesis yielding 4700 mL of cloudy yellow fluid. Reviewed, dictated and finalized at location A. TAKER
--- NOTE | ~2023-06-24 | US_ITS ---
EXAMINATION: US paracentesis abd w/image DATE: 06/01/2023 11:44 INDICATION: Ascites. TECHNIQUE: The procedure and its risks and benefits were discussed with the patient. Potential risks discussed included bleeding and infection. The skin was prepped and draped in sterile fashion. 1% lid ocaine was used for local anesthesia. Under ultrasound guidance, a 5 Fr catheter with trochar was adv anced into the ascites in the left lower quadrant. Fluid was aspirated into vacuum bottles. The georgette ter was removed, and a dressing was applied. There were no immediate complications. FINDINGS: Ultrasound images demonstrate ascites and the catheter within the fluid. IMPRESSION: 1. Successful ultrasound-guided paracentesis yielding 5100 mL of cloudy yellow fluid. Reviewed, dictated and finalized at location A. HAND
--- NOTE | ~2023-06-24 | US_ITS ---
EXAMINATION: US paracentesis abd w/image DATE: 05/05/2023 13:07 INDICATION: Ascites. TECHNIQUE: The procedure and its risks and benefits were discussed with the patient. Potential risks discussed included bleeding and infection. The skin was prepped and draped in sterile fashion. 1% lid ocaine was used for local anesthesia. Under ultrasound guidance, a 5 Fr catheter with trochar was adv anced into the ascites in the right lower quadrant. Fluid was aspirated into vacuum bottles. The cath eter was removed, and a dressing was applied. There were no immediate complications. FINDINGS: Ultrasound images demonstrate ascites and the catheter within the fluid. IMPRESSION: 1. Successful ultrasound-guided paracentesis yielding 6000 mL of clear yellow fluid. Reviewed, dictated and finalized at location A. LAY PLASTICIAN
--- NOTE | ~2023-06-24 | US_ITS ---
EXAMINATION: US paracentesis abd w/image DATE: 06/22/2023 12:20 INDICATION: Ascites. TECHNIQUE: The procedure and its risks, benefits, and alternatives were discussed with the patient. P otential risks discussed included bleeding and infection. The skin was prepped and draped in sterile fashion. 1% lidocaine was used for local anesthesia. Under ultrasound guidance, a 5 Fr catheter with trochar was advanced into the ascites in the right abdomen. Fluid was aspirated. The catheter was rem patricia, and a dressing was applied. There were no immediate complications. FINDINGS: Ultrasound images demonstrate ascites and the catheter within the fluid. IMPRESSION: 1. Successful ultrasound-guided paracentesis yielding 4800 mL of yellow fluid. Reviewed, dictated and finalized at location A. RVISORY FORESTER
--- NOTE | ~2023-06-24 | US_ITS ---
EXAMINATION: US paracentesis abd w/image DATE: 04/27/2023 11:41 INDICATION: Ascites. TECHNIQUE: The procedure and its risks, benefits, and alternatives were discussed with the patient. P otential risks discussed included bleeding and infection. The skin was prepped and draped in sterile fashion. 1% lidocaine was used for local anesthesia. Under ultrasound guidance, a 5 Fr catheter with trochar was advanced into the ascites in the right abdomen. Fluid was aspirated. The catheter was rem patricia, and a dressing was applied. There were no immediate complications. FINDINGS: Ultrasound images demonstrate ascites and the catheter within the fluid. IMPRESSION: 1. Successful ultrasound-guided paracentesis yielding 5000 mL of clear, yellow fluid. Reviewed, dictated and finalized at location A. ENT ANALYST
--- NOTE | ~2023-06-24 | US_ITS ---
EXAMINATION: US paracentesis abd w/image DATE: 05/14/2023 10:32 INDICATION: Ascites. TECHNIQUE: The skin was prepped and draped in sterile fashion. 1% lidocaine was used for local anesth esia. Under ultrasound guidance, a 5 Fr catheter with trochar was advanced into the ascites in the [facility] lower quadrant. Fluid was aspirated. The catheter was removed, and a dressing was applied. There were no immediate complications. FINDINGS: Ultrasound images demonstrate ascites and the catheter within the fluid. IMPRESSION: 1. Successful ultrasound-guided paracentesis yielding 5000 mL of cloudy, yellow fluid. Reviewed, dictated and finalized at location A. ASSISTANT IMPRESSION: 1. Successful ultrasound-guided paracentesis yielding 5000 mL of cloudy, yello w fluid.
--- NOTE | ~2023-06-24 | US_ITS ---
EXAMINATION: US paracentesis abd w/image DATE: 04/29/2023 12:54 INDICATION: Ascites. TECHNIQUE: The procedure and its risks, benefits, and alternatives were discussed with the patient. P otential risks discussed included bleeding and infection. The skin was prepped and draped in sterile fashion. 1% lidocaine was used for local anesthesia. Under ultrasound guidance, a 5 Fr catheter with trochar was advanced into the ascites in the left lower quadrant. Fluid was aspirated. The catheter w as removed, and a dressing was applied. There were no immediate complications. FINDINGS: Ultrasound images demonstrate ascites and the catheter within the fluid. IMPRESSION: 1. Successful ultrasound-guided paracentesis yielding 5000 mL of gio-colored fluid. Reviewed, dictated and finalized at location A. NOLOGY DIRECTOR
--- NOTE | ~2023-06-24 | US_ITS ---
EXAMINATION: US paracentesis abd w/image DATE: 05/12/2023 12:10 INDICATION: Ascites. TECHNIQUE: The skin was prepped and draped in sterile fashion. 1% lidocaine was used for local anesth esia. Under ultrasound guidance, a 5 Fr catheter with trochar was advanced into the ascites in the [place] lower quadrant. Fluid was aspirated. Under ultrasound guidance, a 5 Setswana catheter with trochar w as advanced into the ascites in the right lower quadrant. Fluid was aspirated. The catheter was remov ed, and a dressing was applied. There were no immediate complications. FINDINGS: Ultrasound images demonstrate ascites and the catheters within the fluid. IMPRESSION: 1. Successful ultrasound-guided paracentesis yielding 4800 mL of cloudy, yellow fluid. Reviewed, dictated and finalized at location A. ING MACHINE OPERATOR IMPRESSION: 1. Successful ultrasound-guided paracentesis yielding 4800 mL of cloudy, yello w fluid.
--- NOTE | ~2023-06-24 | US_ITS ---
EXAMINATION: US paracentesis abd w/image DATE: 05/15/2023 10:56 INDICATION: Ascites. TECHNIQUE: The skin was prepped and draped in sterile fashion. 1% lidocaine was used for local anesth esia. Under ultrasound guidance, a 5 Fr catheter with trochar was advanced into the ascites in the [place] lower quadrant. Fluid was aspirated. The catheter was removed, and a dressing was applied. There w ere no immediate complications. FINDINGS: Ultrasound images demonstrate ascites and the catheter within the fluid. IMPRESSION: 1. Successful ultrasound-guided paracentesis yielding 3800 mL of cloudy, yellow fluid. Reviewed, dictated and finalized at location A. CIPAL JAVA DEVELOPER IMPRESSION: 1. Successful ultrasound-guided paracentesis yielding 3800 mL of cloudy, yello w fluid.
--- NOTE | ~2023-06-24 | US_ITS ---
EXAMINATION: US paracentesis abd w/image DATE: 06/19/2023 11:17 INDICATION: Cirrhosis of the liver with ascites TECHNIQUE: The procedure and its risks and benefits were discussed with the patient. Potential risks discussed included bleeding and infection. The skin was prepped and draped in sterile fashion. 1% lid ocaine was used for local anesthesia. Under ultrasound guidance, a 5 Fr catheter with trochar was adv anced into the ascites in the right lower quadrant. Fluid was aspirated into vacuum bottles. The cath eter was removed, and a dressing was applied. There were no immediate complications. FINDINGS: Ultrasound images demonstrate ascites and the catheter within the fluid. IMPRESSION: 1. Successful ultrasound-guided paracentesis yielding 2300 mL of cloudy yellow fluid. Reviewed, dictated and finalized at location A. NESS SERVICES ADMINISTRATOR
--- NOTE | ~2023-06-24 | US_ITS ---
EXAMINATION: US paracentesis abd w/image DATE: 06/05/2023 11:41 INDICATION: Ascites. TECHNIQUE: The procedure and its risks and benefits were discussed with the patient. Potential risks discussed included bleeding and infection. The skin was prepped and draped in sterile fashion. 1% lid ocaine was used for local anesthesia. Under ultrasound guidance, a 5 Fr catheter with trochar was adv anced into the ascites in the left lower quadrant. Fluid was aspirated into vacuum bottles. The georgette ter was removed, and a dressing was applied. There were no immediate complications. FINDINGS: Ultrasound images demonstrate ascites and the catheter within the fluid. IMPRESSION: 1. Successful ultrasound-guided paracentesis yielding 5000 mL of cloudy yellow fluid. Reviewed, dictated and finalized at location A. BLE LOCATOR TEST DESK
== END 2023-06-24 23:00 | disposition home or self-care (01) ==
LOC: ANHIMG 09:30
PROVIDERS: PCP Hospitalist
DX: R18.8 Other ascites (principal); K74.60 Unspecified cirrhosis of liver
CPT/HCPCS: 49083

== ENCOUNTER 2023-07-06 11:18 | Inpatient (IN) | payer OTHER, SELFPAY ==
[2023-07-06] VITALS (30 sets, daily range): BP systolic 111–154; BP diastolic 76–105; PULSE 112–129; RESP 11–23; TEMP 36.1–36.9; O2SAT 98–100; BMI 35.4
--- NOTE | ~2023-07-06 | US_ITS ---
EXAMINATION: US paracentesis abd w/image DATE: 07/15/2023 15:45 INDICATION: Ascites. TECHNIQUE: The procedure and its risks, benefits, and alternatives were discussed with the patient. P otential risks discussed included bleeding and infection. The skin was prepped and draped in sterile fashion. 1% lidocaine was used for local anesthesia. Under ultrasound guidance, a 5 Fr catheter with trochar was advanced into the ascites in the right abdomen. Fluid was aspirated. The catheter was rem patricia, and a dressing was applied. There were no immediate complications. FINDINGS: Ultrasound images demonstrate ascites and the catheter within the fluid. IMPRESSION: 1. Successful ultrasound-guided paracentesis yielding 4400 mL of yellow fluid. Reviewed, dictated and finalized at location A. MARKER
--- NOTE | ~2023-07-06 | US_ITS ---
EXAMINATION: US paracentesis abd w/image DATE: 07/13/2023 15:52 INDICATION: Ascites. TECHNIQUE: The skin was prepped and draped in sterile fashion. 1% lidocaine was used for local anesth esia. Under ultrasound guidance, a 5 Fr catheter with trochar was advanced into the ascites in the [facility] abdomen. Fluid was aspirated. The catheter was removed, and a dressing was applied. There were no immediate complications. FINDINGS: Ultrasound images demonstrate ascites and the catheter within the fluid. IMPRESSION: 1. Successful ultrasound-guided paracentesis yielding 5000 mL of yellow fluid. Reviewed, dictated and finalized at location A. R WEIGHER
--- NOTE | ~2023-07-06 | US_ITS ---
EXAMINATION: US paracentesis abd w/image DATE: 07/08/2023 14:56 INDICATION: Ascites. TECHNIQUE: The procedure and its risks and benefits were discussed with the patient. Potential risks discussed included bleeding and infection. The skin was prepped and draped in sterile fashion. 1% lid ocaine was used for local anesthesia. Under ultrasound guidance, a 5 Fr catheter with trochar was adv anced into the ascites in the right lower quadrant. Fluid was aspirated into vacuum bottles. The cath eter was removed, and a dressing was applied. There were no immediate complications. FINDINGS: Ultrasound images demonstrate ascites and the catheter within the fluid. IMPRESSION: 1. Successful ultrasound-guided paracentesis yielding 6000 mL of yellow fluid. Reviewed, dictated and finalized at location A. RONMENTAL SERVICES COORDINATOR
--- NOTE | ~2023-07-06 | US_ITS ---
EXAMINATION: US paracentesis abd w/image DATE: 07/06/2023 15:51 INDICATION: Ascites. TECHNIQUE: The procedure and its risks and benefits were discussed with the patient. Potential risks discussed included bleeding and infection. The skin was prepped and draped in sterile fashion. 1% lid ocaine was used for local anesthesia. Under ultrasound guidance, a 5 Fr catheter with trochar was adv anced into the ascites in the left lower quadrant. Fluid was aspirated into vacuum bottles. The georgette ter was removed, and a dressing was applied. There were no immediate complications. FINDINGS: Ultrasound images demonstrate ascites and the catheter within the fluid. IMPRESSION: 1. Successful ultrasound-guided paracentesis yielding 6000 mL of yellow fluid. Reviewed, dictated and finalized at location A. ER FEEDER
--- NOTE | ~2023-07-06 | US_ITS ---
EXAMINATION: US paracentesis abd w/image DATE: 07/10/2023 16:13 INDICATION: Ascites. TECHNIQUE: The procedure and its risks and benefits were discussed with the patient. Potential risks discussed included bleeding and infection. The skin was prepped and draped in sterile fashion. 1% lid ocaine was used for local anesthesia. Under ultrasound guidance, a 5 Fr catheter with trochar was adv anced into the ascites in the right lower quadrant. Fluid was aspirated into vacuum bottles. The cath eter was removed, and a dressing was applied. There were no immediate complications. FINDINGS: Ultrasound images demonstrate ascites and the catheter within the fluid. IMPRESSION: 1. Successful ultrasound-guided paracentesis yielding 5000 mL of yellow fluid. Reviewed, dictated and finalized at location A. SW[employer] DEFECT REPAIRER
[2023-07-06 12:13] LABS: Basophils Percent Auto 0.4 % (0.2-1.2); Eosinophils Absolute Auto 0.1 K/mm3 (0-0.3); Eosinophils Percent Auto 1.3 % (0-4.4); Hemoglobin 9.2 g/dL (14.0-18.0); Immature Granulocyte Absolute 0.03 K/mm3 (0.00-0.031); Immature Granulocyte Percent A 0.4 % (0-0.5); Lymphocytes Absolute Auto 0.32 K/mm3 (0.9-3.2); Lymphocytes Percent Auto 4.5 % (18.3-44.2); Mean Corpuscular HGB Conc 26.3 g/dl (32-36); Mean Corpuscular Hemoglobin 22.2 pg (26-34); Mean Corpuscular Volume 84.5 fl (80-100); Mean Platelet Volume 10.4 fl (7.4-10.4); Monocytes Absolute Auto 0.7 K/mm3 (0.1-0.6); Monocytes Percent Auto 10.4 % (2.6-8.5); Neutrophils Absolute Auto 5.9 K/mm3 (1.3-6.7); Platelet Count Result 170 k/mm3 (150-375); Red Blood Count 4.14 M/mm3 (4.6-6.20); Red Cell Distribution Width 17.3 % (11.5-14.5); White Blood Count 7.1 K/mm3 (4.5-10.0)
[2023-07-06 12:17] LABS: Alanine Aminotransferase 9 U/L (6-50); Albumin Level 3.1 g/dL (3.5-5.1); Alkaline Phosphatase 195 U/L (38-126); Anion Gap 7 mmol/L (8-16); Aspartate Amino Transferase 34 U/L (17-59); Bilirubin,Total 0.8 mg/dL (0.2-1.3); Blood Urea Nitrogen 13 mg/dL (9-20); Calcium 8.4 mg/dL (8.4-10.2); Carbon Dioxide 26 mmol/L (22-30); Chloride 101 mmol/L (98-107); Estimated CRCL calculation 101 ml/min; Estimated Glomerular Filt Rate > 60; Glucose 79 mg/dL (65-110); Lipase 30 U/L (23-300); Potassium 4.3 mmol/L (3.4-5.0); Sodium 134 mmol/L (137-145)
[2023-07-06 12:19] LABS: Appearance Urine Clear (Clear); Bacteria Urine None Seen /hpf; Bilirubin Urine Negative (Negative); Blood Urine Negative (Negative); Color Urine Dark Yellow (Yellow); Glucose Urine UA Negative (Negative); Ketones Urine 1+ mg/dL (Negative); Leukocyte Esterase Ur Negative LEU/UL (Negative); Nitrate Urine Negative (Negative); Protein Urine Trace mg/dL (Negative); RBC Urine 0-2 /hpf (0-2); Specific Grav Ur 1.021 (1.001-1.035); Squamous Epithelial Cell Urine None seen /hpf (Few); WBC Urine 0-5 /hpf; pH Urine 5.5 (5.0-9.0)
[2023-07-06 12:20] LABS: Add Urine Microscopic? YES
[2023-07-06 12:34] LABS: Anisocytosis 2+ (NORMAL); Hypochromasia 2+ (NORMAL); Microcytosis 2+ (NORMAL); Platelet Estimate Adequate (Adequate)
[2023-07-06 12:35] LABS: Schistocytes Rare (NORMAL)
--- NOTE | 2023-07-06 13:40 | ED.ABDPAIN ---
HPI - Abdominal Pain General Chief Complaint: Abdominal Pain Stated Complaint: ABD PAIN, URINARY RETENTION Time Seen by Provider: 07/06/23 13:00 History of Present Illness HPI narrative: 53-year-old male with past medical history of cirrhosis, esophageal varices, PUD, pericardial effusion, pulmonary hypertension, insulin-dependent diabetes colitis presenting to the emergency department for evaluation of increased abdominal ascites lower extremity swelling and penile swelling. Patient reports decreased urinary output over the last 7 hours. Patient is able to stand and urinate but states he has gout lower extremity weakness and has difficulty standing. Related Data Home Medications Medication Instructions Recorded Confirmed potassium chloride 20 mEq 20 meq PO BID 04/11/22 07/06/23 tablet,extended release(part/cryst) furosemide 40 mg tablet 80 mg PO BID 08/25/22 07/06/23 insulin lispro protamine-lispro 5 unit subcut ACHS PRN 01/21/23 07/06/23 100 unit/mL (75-25) subcutaneous Hyperglycemia pen spironolactone 50 mg tablet 100 mg PO Q12H 04/13/23 07/06/23 (Aldactone) apixaban 5 mg tablet (Eliquis) 5 mg PO BID 05/09/23 07/06/23 oxycodone 20 mg tablet 20 mg PO Q4H PRN Pain (Scale Score 06/12/23 07/06/23 7-10) hydrocodone 7.5 mg-acetaminophen 1 tablet PO Q8H PRN Pain 06/13/23 07/06/23 325 mg tablet Allergies Allergy/AdvReac Type Severity Reaction Status Date / Time ceftriaxone AdvReac Itching Verified 07/06/23 19:08 ciprofloxacin AdvReac Itching Verified 07/06/23 19:08 Review of Systems Review of Systems: All systems reviewed & are unremarkable except as noted in HPI and below PMFSH Past Medical History Medical History Arthritis C. difficile colitis Cerebrovascular accident (2004) Chronic anemia Cirrhosis of liver with ascites Closed fracture of left proximal humerus Diarrhea Diastolic congestive heart failure Esophageal varices Gastric ulcer Gastroesophageal reflux disease GI bleed Hyperglycemia Hypertension Kidney stone Leukemia In childhood. Pancreatic abnormality Pericardial effusion Noted on CT and echocardiogram in August 2020. No evidence of tamponade. Portal hypertensive gastropathy Noted on endoscopy on 03/23/[address] Duran. Prostate cancer Status post radiation seed implantation. Smoker Spontaneous bacterial peritonitis (04/2020) Tobacco dependence Type 2 diabetes mellitus Surgical History Surgical History History of appendectomy History of cholecystectomy History of cystoscopy History of inguinal hernia repair History of lithotripsy History of repair of right rotator cuff Family History Family History Mother Breast cancer Father Acute myocardial infarction Heart disease Hypertension Other Diabetes mellitus Maternal Uncle Sibling Family history of malignant neoplasm Social History Social History Social History: Surrogate decision maker: Myra Brunilda () or Marnie Washington (aunt). Code status: Full code Smoking packs per day: 0.15 Smoking cigarettes per day: 3.0 Years smoked: 20 Smoking pack-years: 3.00 Smoking status: Current every day smoker Tobacco type: cigarettes Second hand tobacco smoke exposure: No Additional smoking assessment comments: 3 cig per day Alcohol intake: current Drinks per week: 1 Alcohol use details: Former beer drinker. Substance use: never Substance use type: does not use Other substance usage details: DECEMBER 16 2022 LAST DRINK- BEER Do You Feel Safe in your Home?: Yes Lack of Transportation: No Lack of Food: Never True Current Housing: I Have Housing Concerned About Future Housing: No Difficulty Paying Gas/Electric Bills: No Difficulty Paying for
[2023-07-06] MEDS: FUROSEMIDE INJ 40 MG/4 ML VIAL IV PUSH ×2 (14:18→21:51)
[2023-07-06] MEDS: LIDOCAINE HCL 2% GEL UROJET 10 ML PKG (14:26)
[2023-07-06] MEDS: HYDROmorphone HCL INJ (*CRX) 1 MG/ML SYR 0.5 MG IV PUSH ×2 (14:26→17:09)
[2023-07-06 16:33] LABS: Glucose Point of Care 82 mg/dl (65-105)
[2023-07-06] MEDS: oxyCODONE HCL (*CRX) 5 MG TAB IR 20 MG PO (18:38)
[2023-07-06] MEDS: HYDROmorphone HCL INJ (*CRX) 1 MG/ML SYR IV PUSH ×2 (18:39→22:50)
--- NOTE | 2023-07-06 18:41 | PM.IMHP ---
H&P: HPI History of Present Illness Date/Time: 07/06/23 16:45 Chief Complaint: Swelling and difficulties urinating. Narrative: This is a 53-year-old male with history of cirrhosis (presumed autoimmune), esophageal varices, gastric ulcers, pericardial effusion, pulmonary hypertension, diabetes, venous thromboembolism on anticoagulation, diastolic congestive heart failure, and several other comorbidities who presented to the emergency department for evaluation of swelling and difficulties urinating. The patient provides the following history. He has reaccumulating ascites requiring frequent paracenteses on at least a weekly basis. The last several days he reports that his chronic swelling has significantly worsened and in the last 7 hours he reports that his scrotum and penis have become significantly swollen and is to the point where he is having a difficult time urinating due to the swelling. He has pain in the abdomen due to accumulating ascites and in the genitals due to the significant swelling. He is on chronic pain medications at home which have not been helping much. Russo catheter was placed on arrival to the ED and is patent and draining. He was given a dose of IV furosemide and he is being admitted in this setting for further diuresis. He had a therapeutic paracentesis done today and 6 L of fluid were drained. He is compliant with his home medications. He denies fever, chills, sweats, chest pain, shortness a breath, vomiting, and diarrhea. Review of Systems Review of Systems: Twelve systems were reviewed and are negative except for as per HPI. [facility] Past Medical History Medical History (Updated 07/06/23 @ 22:29 by Romi Leiva PA-C) Arthritis C. difficile colitis Cerebrovascular accident (2004) Chronic anemia Chronic anticoagulation Cirrhosis of liver with ascites Closed fracture of left proximal humerus Diarrhea Diastolic congestive heart failure Esophageal varices Gastric ulcer Gastroesophageal reflux disease GI bleed Hyperglycemia Hypertension Kidney stone Leukemia In childhood. Pancreatic abnormality Pericardial effusion Noted on CT and echocardiogram in August 2020. No evidence of tamponade. Portal hypertensive gastropathy Noted on endoscopy on 03/23/[address] Duran. Prostate cancer Status post radiation seed implantation. Smoker Spontaneous bacterial peritonitis (04/2020) Tobacco dependence Type 2 diabetes mellitus Surgical History Surgical History History of appendectomy History of cholecystectomy History of cystoscopy History of inguinal hernia repair History of lithotripsy History of repair of right rotator cuff Family History Family History Mother Breast cancer Father Acute myocardial infarction Heart disease Hypertension Other Diabetes mellitus Maternal Uncle Sibling Family history of malignant neoplasm Social History Social History Social History: Surrogate decision maker: Myra Worley () or Marnie Felix (aunt). Code status: Full code Smoking packs per day: 0.15 Smoking cigarettes per day: 3.0 Years smoked: 20 Smoking pack-years: 3.00 Smoking status: Current every day smoker Tobacco type: cigarettes Second hand tobacco smoke exposure: No Additional smoking assessment comments: 3 cig per day Alcohol intake: current Drinks per week: 1 Alcohol use details: Former beer drinker. Substance use: never Substance use type: does not use Other substance usage details: DECEMBER 16 2022 LAST DRINK- BEER Do You Feel Safe in your Home?: Yes Lack of Transportation: No Lack of Food: Never True Current Housing: I Have Housing Concerned About Future Housing: No Difficulty Paying Gas/Electric Bills: No Difficulty Paying for Meds: No Currently Unempl
[2023-07-06 20:33] LABS: Glucose Point of Care 130 mg/dl (65-105)
[2023-07-06] MEDS: GABAPENTIN 300 MG CAPSULE PO (22:50)
[2023-07-06] MEDS: SPIRONOLACTONE 50 MG TABLET 100 MG PO (22:50)
[2023-07-06] MEDS: APIXABAN 5 MG TABLET PO (22:55)
[2023-07-07] MEDS: oxyCODONE HCL (*CRX) 5 MG TAB IR 20 MG PO ×4 (00:40→20:23)
[2023-07-07] MEDS: HYDROmorphone HCL INJ (*CRX) 1 MG/ML SYR IV PUSH ×2 (03:17→11:03)
[2023-07-07 05:41] VITALS: BP 101/64; PULSE 109; RESP 18; TEMP 36.1; O2SAT 100
[2023-07-07 06:04] LABS: Hematocrit 29.4 % (42.0-52.0); Immature Platelet Fraction Pct 5.3 % (0.9-11.2); Mean Corpuscular HGB Conc 27.2 g/dl (32-36); Mean Corpuscular Hemoglobin 22.2 pg (26-34); Mean Corpuscular Volume 81.4 fl (80-100); Mean Platelet Volume 11.4 fl (7.4-10.4); Platelet Count Result 113 k/mm3 (150-375); Red Blood Count 3.61 M/mm3 (4.6-6.20)
[2023-07-07 06:19] LABS: Alanine Aminotransferase 9 U/L (6-50); Albumin Level 2.5 g/dL (3.5-5.1); Alkaline Phosphatase 154 U/L (38-126); Anion Gap 0 mmol/L (8-16); Aspartate Amino Transferase 27 U/L (17-59); Bilirubin,Total 0.5 mg/dL (0.2-1.3); Blood Urea Nitrogen 13 mg/dL (9-20); Calcium 7.9 mg/dL (8.4-10.2); Carbon Dioxide 32 mmol/L (22-30); Chloride 100 mmol/L (98-107); Estimated CRCL calculation 90 ml/min; Estimated Glomerular Filt Rate > 60; Glucose 93 mg/dL (65-110); Magnesium 1.7 mg/dL (1.6-2.3); Potassium 3.6 mmol/L (3.4-5.0); Sodium 132 mmol/L (137-145)
[2023-07-07 07:58] LABS: Glucose Point of Care 92 mg/dl (65-105)
[2023-07-07 08:58] VITALS: O2SAT 96
[2023-07-07] MEDS: APIXABAN 5 MG TABLET PO ×2 (09:07→20:22)
[2023-07-07] MEDS: MIDODRINE HCL 2.5 MG TABLET 5 MG PO ×3 (09:07→16:30)
[2023-07-07] MEDS: FUROSEMIDE INJ 40 MG/4 ML VIAL IV PUSH ×2 (09:07→20:22)
[2023-07-07] MEDS: SPIRONOLACTONE 50 MG TABLET 100 MG PO ×2 (09:07→20:23)
[2023-07-07] MEDS: PANTOPRAZOLE 40 MG TABLET PO ×2 (09:07→20:23)
[2023-07-07] MEDS: GABAPENTIN 300 MG CAPSULE PO ×2 (09:07→20:23)
[2023-07-07] MEDS: POTASSIUM CHLORIDE 20 MEQ ER TABLET PO ×2 (09:07→16:31)
[2023-07-07 09:08] VITALS: O2SAT 96
--- NOTE | 2023-07-07 11:26 | PM.IMPN ---
Progress Note: A&P Assessment and Plan (1) Abdominal ascites: Code(s): R18.8 - Other ascites Status: Acute Assessment and Plan: Status post therapeutic paracentesis on 07/06 (2) Edema of male genital organs: Code(s): N50.89 - Other specified disorders of the male genital organs Status: Acute Assessment and Plan: He has swelling, anasarca, Russo catheter in place the due to urinary retention/inability to urinate due to swollen penis and scrotum (3) Diastolic congestive heart failure: Qualifiers: Heart failure chronicity: chronic Qualified Code(s): I50.32 - Chronic diastolic (congestive) heart failure Code(s): I50.30 - Unspecified diastolic (congestive) heart failure Status: Acute Assessment and Plan: Uncompensated continue Lasix Now requiring oxygen at all times (4) Cirrhosis of liver with ascites: Qualifiers: Hepatic cirrhosis type: unspecified hepatic cirrhosis Qualified Code(s): K74.60 - Unspecified cirrhosis of liver; R18.8 - Other ascites Code(s): K74.60 - Unspecified cirrhosis of liver; R18.8 - Other ascites Status: Chronic Assessment and Plan: Chronic and worsening (5) Type 2 diabetes mellitus: Qualifiers: Diabetes mellitus complication status: without complication Diabetes mellitus physician underwriter insulin use: without care home use Qualified Code(s): E11.9 - Type 2 diabetes mellitus without complications Code(s): E11.9 - Type 2 diabetes mellitus without complications Status: Acute Assessment and Plan: ACHS fingerstick with SSI (6) Chronic anticoagulation: Code(s): Z79.01 - FDC (current) use of anticoagulants Status: Acute Assessment and Plan: Continue Eliquis (7) Chronic anemia: Code(s): D64.9 - Anemia, unspecified Status: Acute Assessment and Plan: Chronic, stable Time Spent With Patient Time: Diuresis and repeat paracentesis before discharge. It has been 2 weeks since last paracentesis Time with patient: 25 - 35 minutes Subjective Date/time seen: 07/07/23 15:26 Interval history: Patient has been out of the hospital for a couple weeks had worsening lower extremity swelling lower abdomen swelling joint swelling PE as scrotum swelling. He was not able to urinate saw Russo catheter was placed. This is causing him increased pain. He is already on frequent high-dose narcotic pain medications which will be continued. Patient is established with palliative care states his DNR status is to try to keep him alive until family can be at his bedside and then let him go. Patient reports he would prefer 2 mg morphine instead of 1 mg Dilaudid every 4 hours for breakthrough pain. Review of Systems Review of Systems: Twelve systems were reviewed and are negative except for as per HPI. Exam Narrative: General:?Chronically ill-appearing male sitting up in bed in moderate distress due to pain. HEENT:?Wearing glasses. PERRL, EOMI. Sclera anicteric. Tacky mucous membranes. Neck:??Supple. Respiratory:?Lungs are clear to auscultation bilaterally. Cardiovascular:?Tachycardic with S1-S2. Gastrointestinal:??Abdomen is slightly firm and protuberant with shifting dullness. Mild tenderness to palpation throughout the abdomen which is not unusual for him. No guarding or rebound tenderness. Genitourinary: Significant swelling of the scrotum and penis. Russo catheter draining light yellow urine. Skin:??Warm and dry. Sallow. Extremities:??No cyanosis or clubbing. Tight pitting edema from the feet extending the flanks. Neurological:??Alert.? Cranial nerves 2-12 are grossly intact. No gross focal deficits to casual conversation. Psychiatric:??Pleasant and cooperative with appropriate mood and affect. Objective Data Vital Signs Vital Signs: Vital Signs - 24 hr 07/06/23 11:49 07/06/23 11:27 07/06/23 11:30 Temperature Pulse Rate 126 H 114 H R
[2023-07-07 11:56] LABS: Glucose Point of Care 176 mg/dl (65-105)
[2023-07-07 14:00] VITALS: BP 99/69; PULSE 106; RESP 16; TEMP 36.2; O2SAT 100
[2023-07-07] MEDS: MORPHINE SULFATE (*CRX) 4 MG/ML INJ 2 MG IV PUSH ×2 (16:27→22:32)
[2023-07-07 17:15] LABS: Glucose Point of Care 139 mg/dl (65-105)
[2023-07-07 21:25] VITALS: BP 110/71; PULSE 101; RESP 18; TEMP 36.6; O2SAT 99
[2023-07-07 21:31] LABS: Glucose Point of Care 171 mg/dl (65-105)
[2023-07-08] MEDS: oxyCODONE HCL (*CRX) 5 MG TAB IR 20 MG PO ×6 (00:24→21:48)
[2023-07-08] MEDS: MORPHINE SULFATE (*CRX) 4 MG/ML INJ 2 MG IV PUSH ×4 (02:43→15:24)
[2023-07-08 06:15] VITALS: BP 113/77; PULSE 96; RESP 18; TEMP 36.7; O2SAT 100
[2023-07-08 06:46] LABS: Alanine Aminotransferase 9 U/L (6-50); Albumin Level 2.4 g/dL (3.5-5.1); Alkaline Phosphatase 133 U/L (38-126); Anion Gap 4 mmol/L (8-16); Aspartate Amino Transferase 25 U/L (17-59); Bilirubin,Total 0.3 mg/dL (0.2-1.3); Blood Urea Nitrogen 16 mg/dL (9-20); Calcium 7.6 mg/dL (8.4-10.2); Carbon Dioxide 32 mmol/L (22-30); Chloride 95 mmol/L (98-107); Estimated CRCL calculation 92 ml/min; Estimated Glomerular Filt Rate > 60; Glucose 132 mg/dL (65-110); Magnesium 1.8 mg/dL (1.6-2.3); Potassium 4.1 mmol/L (3.4-5.0); Sodium 131 mmol/L (137-145)
[2023-07-08 06:55] LABS: Basophils Percent Auto 0.3 % (0.2-1.2); Eosinophils Absolute Auto 0.1 K/mm3 (0-0.3); Eosinophils Percent Auto 2.9 % (0-4.4); Hemoglobin 7.3 g/dL (14.0-18.0); Immature Granulocyte Absolute 0.01 K/mm3 (0.00-0.031); Immature Granulocyte Percent A 0.3 % (0-0.5); Lymphocytes Absolute Auto 0.48 K/mm3 (0.9-3.2); Lymphocytes Percent Auto 12.6 % (18.3-44.2); Mean Corpuscular Hemoglobin 22.3 pg (26-34); Mean Corpuscular Volume 82.3 fl (80-100); Mean Platelet Volume 12.2 fl (7.4-10.4); Monocytes Absolute Auto 0.7 K/mm3 (0.1-0.6); Monocytes Percent Auto 18.9 % (2.6-8.5); Neutrophils Absolute Auto 2.5 K/mm3 (1.3-6.7); Platelet Count Result 103 k/mm3 (150-375); Red Blood Count 3.28 M/mm3 (4.6-6.20); Red Cell Distribution Width 17.1 % (11.5-14.5); White Blood Count 3.8 K/mm3 (4.5-10.0)
[2023-07-08 07:22] LABS: Hypochromasia 2+ (NORMAL); Platelet Estimate Decreased (Adequate)
[2023-07-08 07:23] LABS: Anisocytosis 1+ (NORMAL); Microcytosis 1+ (NORMAL); Ovalocytes 1+ (NORMAL); Schistocytes None Seen (NORMAL)
[2023-07-08 08:10] LABS: Glucose Point of Care 137 mg/dl (65-105)
--- NOTE | 2023-07-08 08:18 | PM.IMPN ---
Progress Note: A&P Assessment and Plan (1) Abdominal ascites: Code(s): R18.8 - Other ascites Status: Acute Assessment and Plan: Status post therapeutic paracentesis on 07/06, will reorder again 07/08 (2) Edema of male genital organs: Code(s): N50.89 - Other specified disorders of the male genital organs Status: Acute Assessment and Plan: He has swelling, anasarca, Russo catheter in place the due to urinary retention/inability to urinate due to swollen penis and scrotum (3) Diastolic congestive heart failure: Qualifiers: Heart failure chronicity: chronic Qualified Code(s): I50.32 - Chronic diastolic (congestive) heart failure Code(s): I50.30 - Unspecified diastolic (congestive) heart failure Status: Acute Assessment and Plan: Uncompensated continue Lasix Now requiring oxygen at all times (4) Cirrhosis of liver with ascites: Qualifiers: Hepatic cirrhosis type: unspecified hepatic cirrhosis Qualified Code(s): K74.60 - Unspecified cirrhosis of liver; R18.8 - Other ascites Code(s): K74.60 - Unspecified cirrhosis of liver; R18.8 - Other ascites Status: Chronic Assessment and Plan: Chronic and worsening (5) Type 2 diabetes mellitus: Qualifiers: Diabetes mellitus complication status: without complication Diabetes mellitus long distance operator insulin use: without long distance operator use Qualified Code(s): E11.9 - Type 2 diabetes mellitus without complications Code(s): E11.9 - Type 2 diabetes mellitus without complications Status: Acute Assessment and Plan: ACHS fingerstick with SSI (6) Chronic anticoagulation: Code(s): Z79.01 - rat exterminator (current) use of anticoagulants Status: Acute Assessment and Plan: Continue Eliquis (7) Chronic anemia: Code(s): D64.9 - Anemia, unspecified Status: Acute Assessment and Plan: Chronic, hemoglobin 7.3 on 07/08, no obvious bleeding, continue monitor with daily labs Time Spent With Patient Time with patient: 25 - 35 minutes Subjective Date/time seen: 07/08/23 08:18 Interval history: 07/07: Patient has been out of the hospital for a couple weeks had worsening lower extremity swelling lower abdomen swelling joint swelling PE as scrotum swelling. He was not able to urinate saw Russo catheter was placed. This is causing him increased pain. He is already on frequent high-dose narcotic pain medications which will be continued. Patient is established with palliative care states his DNR status is to try to keep him alive until family can be at his bedside and then let him go. Patient reports he would prefer 2 mg morphine instead of 1 mg Dilaudid every 4 hours for breakthrough pain. 07/08: Patient reports reaccumulation abdominal ascites that is tense and painful. Ordered therapeutic paracentesis. Patient will require albumin after procedure. Still has lower extremity and general swelling which is getting little better after diuretics. Patient reporting morphine 2 mg is not providing adequate pain control and he is requesting dose escalation. Review of Systems Review of Systems: Twelve systems were reviewed and are negative except for as per HPI. All systems reviewed & are unremarkable except as noted in HPI and below Exam Narrative: General:?Chronically ill-appearing male sitting up in bed in moderate distress due to pain. HEENT:?Wearing glasses. PERRL, EOMI. Sclera anicteric. Tacky mucous membranes. Neck:??Supple. Respiratory:?Lungs are clear to auscultation bilaterally. Cardiovascular:?Tachycardic with S1-S2. Gastrointestinal:??Abdomen is slightly firm and protuberant with shifting dullness. Mild tenderness to palpation throughout the abdomen which is not unusual for him. No guarding or rebound tenderness. Genitourinary: Significant swelling of the scrotum and penis. Russo catheter draining light yellow urine. Skin:??Warm and dry. Sallow.
[2023-07-08] MEDS: FUROSEMIDE INJ 40 MG/4 ML VIAL IV PUSH ×2 (08:53→19:54)
[2023-07-08] MEDS: SPIRONOLACTONE 50 MG TABLET 100 MG PO ×2 (08:53→19:55)
[2023-07-08] MEDS: GABAPENTIN 300 MG CAPSULE PO ×2 (08:54→19:55)
[2023-07-08] MEDS: PANTOPRAZOLE 40 MG TABLET PO ×2 (08:54→19:55)
[2023-07-08] MEDS: POTASSIUM CHLORIDE 20 MEQ ER TABLET PO ×2 (08:54→17:34)
[2023-07-08] MEDS: APIXABAN 5 MG TABLET PO ×2 (08:54→19:55)
[2023-07-08] MEDS: MIDODRINE HCL 2.5 MG TABLET 5 MG PO ×3 (08:54→17:34)
[2023-07-08 11:51] LABS: Glucose Point of Care 179 mg/dl (65-105)
[2023-07-08 16:44] LABS: Glucose Point of Care 156 mg/dl (65-105)
[2023-07-08] MEDS: ALBUMIN HUMAN 25% 25 GM/100 ML 100 ML IVPB (17:33)
[2023-07-08] MEDS: MORPHINE SULFATE (*CRX) 4 MG/ML INJ IV PUSH (19:54)
[2023-07-08 20:13] LABS: Glucose Point of Care 242 mg/dl (65-105)
[2023-07-08 20:59] VITALS: BP 106/70; PULSE 99; RESP 18; TEMP 36.9; O2SAT 100
[2023-07-09] MEDS: MORPHINE SULFATE (*CRX) 4 MG/ML INJ IV PUSH ×6 (00:06→22:58)
[2023-07-09] MEDS: ALBUMIN HUMAN 25% 25 GM/100 ML 100 ML IVPB ×3 (00:07→13:18)
[2023-07-09] MEDS: oxyCODONE HCL (*CRX) 5 MG TAB IR 20 MG PO ×5 (01:46→20:25)
[2023-07-09 05:57] VITALS: BP 111/71; PULSE 99; RESP 18; TEMP 37; O2SAT 100
[2023-07-09 06:58] LABS: Basophils Percent Auto 0.5 % (0.2-1.2); Eosinophils Absolute Auto 0.1 K/mm3 (0-0.3); Hematocrit 25.5 % (42.0-52.0); Hemoglobin 7.1 g/dL (14.0-18.0); Immature Granulocyte Absolute 0.02 K/mm3 (0.00-0.031); Immature Granulocyte Percent A 0.5 % (0-0.5); Immature Platelet Fraction Pct 7.3 % (0.9-11.2); Lymphocytes Absolute Auto 0.44 K/mm3 (0.9-3.2); Lymphocytes Percent Auto 11.1 % (18.3-44.2); Mean Corpuscular HGB Conc 27.8 g/dl (32-36); Mean Corpuscular Hemoglobin 22.3 pg (26-34); Mean Corpuscular Volume 79.9 fl (80-100); Mean Platelet Volume 10.5 fl (7.4-10.4); Monocytes Absolute Auto 0.6 K/mm3 (0.1-0.6); Monocytes Percent Auto 15.9 % (2.6-8.5); Neutrophils Absolute Auto 2.8 K/mm3 (1.3-6.7); Platelet Count Result 90 k/mm3 (150-375); Red Blood Count 3.19 M/mm3 (4.6-6.20); Red Cell Distribution Width 16.9 % (11.5-14.5)
[2023-07-09 07:17] LABS: Alanine Aminotransferase 8 U/L (6-50); Albumin Level 2.9 g/dL (3.5-5.1); Alkaline Phosphatase 112 U/L (38-126); Anion Gap 3 mmol/L (8-16); Aspartate Amino Transferase 22 U/L (17-59); Bilirubin,Total 0.3 mg/dL (0.2-1.3); Blood Urea Nitrogen 15 mg/dL (9-20); Calcium 8.1 mg/dL (8.4-10.2); Carbon Dioxide 34 mmol/L (22-30); Chloride 92 mmol/L (98-107); Estimated CRCL calculation 80 ml/min; Estimated Glomerular Filt Rate > 60; Glucose 161 mg/dL (65-110); Magnesium 1.7 mg/dL (1.6-2.3); Potassium 4.5 mmol/L (3.4-5.0); Sodium 129 mmol/L (137-145)
[2023-07-09 07:29] LABS: Hypochromasia 2+ (NORMAL); Platelet Estimate Decreased (Adequate); Schistocytes None Seen (NORMAL)
[2023-07-09 07:30] LABS: Anisocytosis 1+ (NORMAL)
[2023-07-09 08:00] VITALS: O2SAT 98
[2023-07-09 08:38] LABS: Glucose Point of Care 128 mg/dl (65-105)
[2023-07-09] MEDS: SPIRONOLACTONE 50 MG TABLET 100 MG PO ×2 (08:47→20:25)
[2023-07-09] MEDS: MIDODRINE HCL 2.5 MG TABLET 5 MG PO ×3 (08:48→17:59)
[2023-07-09] MEDS: POTASSIUM CHLORIDE 20 MEQ ER TABLET PO ×2 (08:48→17:59)
[2023-07-09] MEDS: GABAPENTIN 300 MG CAPSULE PO ×2 (08:48→20:25)
[2023-07-09] MEDS: PANTOPRAZOLE 40 MG TABLET PO ×2 (08:48→20:25)
[2023-07-09] MEDS: FUROSEMIDE INJ 40 MG/4 ML VIAL IV PUSH ×2 (08:56→20:26)
[2023-07-09 09:11] VITALS: O2SAT 98
[2023-07-09 12:12] LABS: Glucose Point of Care 170 mg/dl (65-105)
--- NOTE | 2023-07-09 12:56 | PM.IMPN ---
Progress Note: A&P Assessment and Plan (1) Abdominal ascites: Code(s): R18.8 - Other ascites Status: Acute (2) Edema of male genital organs: Code(s): N50.89 - Other specified disorders of the male genital organs Status: Acute (3) Diastolic congestive heart failure: Qualifiers: Heart failure chronicity: chronic Qualified Code(s): I50.32 - Chronic diastolic (congestive) heart failure Code(s): I50.30 - Unspecified diastolic (congestive) heart failure Status: Acute Assessment and Plan: Uncompensated continue Lasix Now requiring oxygen at all times (4) Cirrhosis of liver with ascites: Qualifiers: Hepatic cirrhosis type: unspecified hepatic cirrhosis Qualified Code(s): K74.60 - Unspecified cirrhosis of liver; R18.8 - Other ascites Code(s): K74.60 - Unspecified cirrhosis of liver; R18.8 - Other ascites Status: Chronic (5) Type 2 diabetes mellitus: Qualifiers: Diabetes mellitus ad terminal makeup operator insulin use: without ad terminal makeup operator use Diabetes mellitus complication status: without complication Qualified Code(s): E11.9 - Type 2 diabetes mellitus without complications Code(s): E11.9 - Type 2 diabetes mellitus without complications Status: Acute Assessment and Plan: ACHS fingerstick with SSI (6) Chronic anticoagulation: Code(s): Z79.01 - termite renewal inspector (current) use of anticoagulants Status: Acute (7) Chronic anemia: Code(s): D64.9 - Anemia, unspecified Status: Acute Plan Cirrhosis of liver with ascites -Paracentesis x2 3rd scheduled for 07/10/2023 -IV Lasix -Spironolactone -Albumin IV -Tenckhoff catheter O/P -Pain control -Scrotal swelling elevate with scrotal hammock bhatt catheter placed secondary to urinary retention from swelling Anemia -Chronic no known blood loss -secondary to cirrhosis -HGB <7.0 transfuse -daily H&H -resumed Ferrous sulfate -on Eliquis monitor closely for bleeding Diabetes -Accu-Cheks a.c. HS -sliding scale insulin -resume patient's home long-acting -Diabetic diet -consult to dietitian -encourage lifestyle modifications and weight loss -Optimize Dilip inhibitors and statins. -Watch for hypoglycemia/hypoglycemic protocol ordered DVT/PE HX of -Eliquis resumed Code status: Full code per patient DVT prophylaxis: Eliquis Stress ulcer prophylaxis: Protonix 40 BID PT/OT notes: PT/OT pending Disposition: Patient continues admission to the medical unit for treatment of cirrhosis with ascites and scrotal swelling needs 3rd paracentesis for comfort will discharge to home on palliative care. -Patient's previous records reviewed on admission -ER notes reviewed in detail on admission -discussed all findings and current treatment plan with patient/Family/POA -Consultations reviewed for recommendations -Patient's disposition for safe discharge discussed with case briefer Dictation performed by [employer] direct speech recognition software, therefore operations asst variants and typographical errors may occur. Time Spent With Patient Time with patient: 15 - 25 minutes Subjective Date/time seen: 07/09/23 12:56 Interval history: 07/07: Patient has been out of the hospital for a couple weeks had worsening lower extremity swelling lower abdomen swelling joint swelling PE as scrotum swelling. He was not able to urinate saw Bhatt catheter was placed. This is causing him increased pain. He is already on frequent high-dose narcotic pain medications which will be continued. Patient is established with palliative care states his DNR status is to try to keep him alive until family can be at his bedside and then let him go. Patient reports he would prefer 2 mg morphine instead of 1 mg Dilaudid every 4 hours for breakthrough pain. 07/08: Patient reports reaccumulation abdominal ascites that is tense and painful. Ordered therapeutic paracentesis.
[2023-07-09 14:00] VITALS: BP 116/71; PULSE 97; RESP 18; TEMP 35.9; O2SAT 100
[2023-07-09 16:18] LABS: Glucose Point of Care 131 mg/dl (65-105)
[2023-07-09 20:00] VITALS: O2SAT 100
[2023-07-09 20:50] VITALS: BP 119/75; PULSE 90; RESP 18; TEMP 37.1; O2SAT 100
[2023-07-09 20:59] LABS: Glucose Point of Care 151 mg/dl (65-105)
[2023-07-10] MEDS: oxyCODONE HCL (*CRX) 5 MG TAB IR 20 MG PO ×5 (01:24→18:43)
[2023-07-10] MEDS: MORPHINE SULFATE (*CRX) 4 MG/ML INJ IV PUSH ×5 (02:54→20:32)
[2023-07-10 05:15] VITALS: BP 108/63; PULSE 98; RESP 20; TEMP 37.1; O2SAT 96
[2023-07-10 05:23] VITALS: O2SAT 96
[2023-07-10] MEDS: LIDOCAINE HCL 2% GEL UROJET 10 ML PKG MUCOUS MEM (05:50)
[2023-07-10 06:36] LABS: Basophils Percent Auto 0.3 % (0.2-1.2); Eosinophils Absolute Auto 0.1 K/mm3 (0-0.3); Eosinophils Percent Auto 2.4 % (0-4.4); Hematocrit 27.6 % (42.0-52.0); Hemoglobin 7.7 g/dL (14.0-18.0); Immature Granulocyte Absolute 0.01 K/mm3 (0.00-0.031); Immature Granulocyte Percent A 0.3 % (0-0.5); Immature Platelet Fraction Pct 7.7 % (0.9-11.2); Lymphocytes Percent Auto 13.2 % (18.3-44.2); Mean Corpuscular HGB Conc 27.9 g/dl (32-36); Mean Corpuscular Hemoglobin 22.2 pg (26-34); Mean Corpuscular Volume 79.5 fl (80-100); Mean Platelet Volume 12.3 fl (7.4-10.4); Monocytes Absolute Auto 0.6 K/mm3 (0.1-0.6); Monocytes Percent Auto 16.9 % (2.6-8.5); Neutrophils Absolute Auto 2.5 K/mm3 (1.3-6.7); Neutrophils Percent Auto 66.9 % (45.5-73.1); Platelet Count Result 100 k/mm3 (150-375); Red Blood Count 3.47 M/mm3 (4.6-6.20); White Blood Count 3.8 K/mm3 (4.5-10.0)
[2023-07-10 07:02] LABS: Alanine Aminotransferase 8 U/L (6-50); Albumin Level 3.2 g/dL (3.5-5.1); Alkaline Phosphatase 113 U/L (38-126); Anion Gap 4 mmol/L (8-16); Aspartate Amino Transferase 22 U/L (17-59); Bilirubin,Total 0.5 mg/dL (0.2-1.3); Blood Urea Nitrogen 17 mg/dL (9-20); Calcium 8.7 mg/dL (8.4-10.2); Carbon Dioxide 35 mmol/L (22-30); Chloride 90 mmol/L (98-107); Estimated CRCL calculation 80 ml/min; Estimated Glomerular Filt Rate > 60; Glucose 163 mg/dL (65-110); Magnesium 1.8 mg/dL (1.6-2.3); Potassium 4.3 mmol/L (3.4-5.0); Sodium 129 mmol/L (137-145)
[2023-07-10 07:55] LABS: Anisocytosis 1+ (NORMAL); Platelet Estimate Decreased (Adequate)
[2023-07-10 07:56] LABS: Microcytosis 1+ (NORMAL); Schistocytes None Seen (NORMAL)
[2023-07-10 08:00] VITALS: O2SAT 96
[2023-07-10 08:03] LABS: Glucose Point of Care 165 mg/dl (65-105)
[2023-07-10] MEDS: GABAPENTIN 300 MG CAPSULE PO ×2 (08:46→20:32)
[2023-07-10] MEDS: FUROSEMIDE INJ 40 MG/4 ML VIAL IV PUSH ×2 (08:46→20:32)
[2023-07-10] MEDS: POTASSIUM CHLORIDE 20 MEQ ER TABLET PO ×2 (08:46→16:17)
[2023-07-10] MEDS: PANTOPRAZOLE 40 MG TABLET PO ×2 (08:46→20:32)
[2023-07-10] MEDS: MIDODRINE HCL 2.5 MG TABLET 5 MG PO ×3 (08:46→16:17)
[2023-07-10] MEDS: SPIRONOLACTONE 50 MG TABLET 100 MG PO ×2 (08:47→20:32)
--- NOTE | 2023-07-10 11:24 | PM.IMPN ---
Progress Note: A&P Assessment and Plan (1) Abdominal ascites: Qualifiers: Ascites type: other type Qualified Code(s): R18.8 - Other ascites Code(s): R18.8 - Other ascites Status: Acute (2) Edema of male genital organs: Code(s): N50.89 - Other specified disorders of the male genital organs Status: Acute (3) Diastolic congestive heart failure: Qualifiers: Heart failure chronicity: chronic Qualified Code(s): I50.32 - Chronic diastolic (congestive) heart failure Code(s): I50.30 - Unspecified diastolic (congestive) heart failure Status: Acute (4) Cirrhosis of liver with ascites: Qualifiers: Hepatic cirrhosis type: unspecified hepatic cirrhosis Qualified Code(s): K74.60 - Unspecified cirrhosis of liver; R18.8 - Other ascites Code(s): K74.60 - Unspecified cirrhosis of liver; R18.8 - Other ascites Status: Chronic (5) Type 2 diabetes mellitus: Qualifiers: Diabetes mellitus assisted insulin use: without intermediate frame tender use Diabetes mellitus complication status: without complication Qualified Code(s): E11.9 - Type 2 diabetes mellitus without complications Code(s): E11.9 - Type 2 diabetes mellitus without complications Status: Acute (6) Chronic anticoagulation: Code(s): Z79.01 - custodial (current) use of anticoagulants Status: Acute (7) Chronic anemia: Code(s): D64.9 - Anemia, unspecified Status: Acute Plan Cirrhosis of liver with ascites -Paracentesis x2 3rd scheduled for 07/10/2023 -IV Lasix -Spironolactone -Albumin IV -Tenckhoff catheter O/P -Pain control -Scrotal swelling elevate with scrotal hammock bhatt catheter placed secondary to urinary retention from swelling Anemia -Chronic no known blood loss -secondary to cirrhosis -HGB <7.0 transfuse -daily H&H -resumed Ferrous sulfate -on Eliquis monitor closely for bleeding Diabetes -Accu-Cheks a.c. HS -sliding scale insulin -resume patient's home long-acting -Diabetic diet -consult to dietitian -encourage lifestyle modifications and weight loss -Optimize Dilip inhibitors and statins. -Watch for hypoglycemia/hypoglycemic protocol ordered DVT/PE HX of -Eliquis resumed Code status: Full code per patient DVT prophylaxis: Eliquis Stress ulcer prophylaxis: Protonix 40 BID PT/OT notes: PT/OT pending Disposition: Patient continues admission to the medical unit for treatment of cirrhosis with ascites and scrotal swelling needs 3rd paracentesis for comfort will discharge to home on palliative care/HH. -Patient's previous records reviewed on admission -ER notes reviewed in detail on admission -discussed all findings and current treatment plan with patient/Family/POA -Consultations reviewed for recommendations -Patient's disposition for safe discharge discussed with case checker Dictation performed by [employer] direct speech recognition software, therefore health science instructor variants and typographical errors may occur. Time Spent With Patient Time with patient: 15 - 25 minutes Subjective Date/time seen: 07/10/23 11:24 Interval history: 07/07: Patient has been out of the hospital for a couple weeks had worsening lower extremity swelling lower abdomen swelling joint swelling PE as scrotum swelling. He was not able to urinate saw Bhatt catheter was placed. This is causing him increased pain. He is already on frequent high-dose narcotic pain medications which will be continued. Patient is established with palliative care states his DNR status is to try to keep him alive until family can be at his bedside and then let him go. Patient reports he would prefer 2 mg morphine instead of 1 mg Dilaudid every 4 hours for breakthrough pain. 07/08: Patient reports reaccumulation abdominal ascites that is tense and painful. Ordered therapeutic paracentesis. Patient will require albumin after procedure. St
[2023-07-10 11:25] LABS: Glucose Point of Care 228 mg/dl (65-105)
[2023-07-10] MEDS: ALBUMIN HUMAN 25% 25 GM/100 ML 100 ML IVPB (13:50)
[2023-07-10 14:00] VITALS: BP 117/64; PULSE 99; RESP 20; TEMP 36.5; O2SAT 96
[2023-07-10 16:37] LABS: Glucose Point of Care 192 mg/dl (65-105)
[2023-07-10 20:43] LABS: Glucose Point of Care 212 mg/dl (65-105)
[2023-07-10 21:39] VITALS: BP 105/60; PULSE 99; RESP 16; TEMP 36.6; O2SAT 99
[2023-07-11] MEDS: MORPHINE SULFATE (*CRX) 4 MG/ML INJ IV PUSH ×4 (02:53→17:29)
[2023-07-11 05:45] VITALS: BP 105/56; PULSE 98; RESP 14; TEMP 36.4; O2SAT 99
[2023-07-11 06:29] LABS: Basophils Percent Auto 0.3 % (0.2-1.2); Eosinophils Absolute Auto 0.1 K/mm3 (0-0.3); Eosinophils Percent Auto 3.1 % (0-4.4); Hematocrit 26.5 % (42.0-52.0); Hemoglobin 7.1 g/dL (14.0-18.0); Immature Platelet Fraction Pct 9.1 % (0.9-11.2); Lymphocytes Absolute Auto 0.35 K/mm3 (0.9-3.2); Lymphocytes Percent Auto 10.9 % (18.3-44.2); Mean Corpuscular HGB Conc 26.8 g/dl (32-36); Mean Corpuscular Hemoglobin 21.8 pg (26-34); Mean Corpuscular Volume 81.3 fl (80-100); Mean Platelet Volume 11.4 fl (7.4-10.4); Monocytes Absolute Auto 0.6 K/mm3 (0.1-0.6); Monocytes Percent Auto 19.3 % (2.6-8.5); Neutrophils Absolute Auto 2.1 K/mm3 (1.3-6.7); Neutrophils Percent Auto 66.4 % (45.5-73.1); Platelet Count Result 100 k/mm3 (150-375); Red Blood Count 3.26 M/mm3 (4.6-6.20); White Blood Count 3.2 K/mm3 (4.5-10.0)
[2023-07-11 06:48] LABS: Alanine Aminotransferase 8 U/L (6-50); Albumin Level 3.2 g/dL (3.5-5.1); Alkaline Phosphatase 106 U/L (38-126); Anion Gap 4 mmol/L (8-16); Aspartate Amino Transferase 21 U/L (17-59); Bilirubin,Total 0.4 mg/dL (0.2-1.3); Blood Urea Nitrogen 18 mg/dL (9-20); Calcium 8.7 mg/dL (8.4-10.2); Carbon Dioxide 36 mmol/L (22-30); Chloride 91 mmol/L (98-107); Estimated CRCL calculation 72 ml/min; Estimated Glomerular Filt Rate > 60; Glucose 186 mg/dL (65-110); Magnesium 1.8 mg/dL (1.6-2.3); Potassium 4.3 mmol/L (3.4-5.0); Sodium 131 mmol/L (137-145)
[2023-07-11 07:24] LABS: Anisocytosis 1+ (NORMAL); Hypochromasia 1+ (NORMAL); Ovalocytes 1+ (NORMAL); Platelet Estimate Decreased (Adequate); Schistocytes Rare (NORMAL)
[2023-07-11 07:56] LABS: Glucose Point of Care 232 mg/dl (65-105)
[2023-07-11] MEDS: FUROSEMIDE INJ 40 MG/4 ML VIAL IV PUSH ×2 (09:18→20:12)
[2023-07-11] MEDS: POTASSIUM CHLORIDE 20 MEQ ER TABLET PO ×2 (09:18→17:28)
[2023-07-11] MEDS: APIXABAN 5 MG TABLET PO ×2 (09:18→20:12)
[2023-07-11] MEDS: GABAPENTIN 300 MG CAPSULE PO ×2 (09:18→20:12)
[2023-07-11] MEDS: PANTOPRAZOLE 40 MG TABLET PO ×2 (09:18→20:12)
[2023-07-11] MEDS: SPIRONOLACTONE 50 MG TABLET 100 MG PO ×2 (09:18→20:12)
[2023-07-11] MEDS: MIDODRINE HCL 2.5 MG TABLET 5 MG PO ×3 (09:18→17:28)
--- NOTE | 2023-07-11 11:02 | PM.IMPN ---
Progress Note: A&P Assessment and Plan (1) Abdominal ascites: Qualifiers: Ascites type: other type Qualified Code(s): R18.8 - Other ascites Code(s): R18.8 - Other ascites Status: Acute (2) Edema of male genital organs: Code(s): N50.89 - Other specified disorders of the male genital organs Status: Acute (3) Diastolic congestive heart failure: Qualifiers: Heart failure chronicity: chronic Qualified Code(s): I50.32 - Chronic diastolic (congestive) heart failure Code(s): I50.30 - Unspecified diastolic (congestive) heart failure Status: Acute (4) Cirrhosis of liver with ascites: Qualifiers: Hepatic cirrhosis type: unspecified hepatic cirrhosis Qualified Code(s): K74.60 - Unspecified cirrhosis of liver; R18.8 - Other ascites Code(s): K74.60 - Unspecified cirrhosis of liver; R18.8 - Other ascites Status: Chronic (5) Type 2 diabetes mellitus: Qualifiers: Diabetes mellitus long-term insulin use: without termite exterminator helper use Diabetes mellitus complication status: without complication Qualified Code(s): E11.9 - Type 2 diabetes mellitus without complications Code(s): E11.9 - Type 2 diabetes mellitus without complications Status: Acute (6) Chronic anticoagulation: Code(s): Z79.01 - residential (current) use of anticoagulants Status: Acute (7) Chronic anemia: Code(s): D64.9 - Anemia, unspecified Status: Acute Plan Cirrhosis of liver with ascites -Paracentesis x3 4th scheduled for 07/13/2023 -IV Lasix -Spironolactone -Albumin IV -Tenckhoff catheter O/P -Pain control -Scrotal swelling elevate with scrotal hammock bhatt catheter placed secondary to urinary retention from swelling Anemia -Chronic no known blood loss -secondary to cirrhosis -HGB <7.0 transfuse -daily H&H -resumed Ferrous sulfate -on Eliquis monitor closely for bleeding Diabetes -Accu-Cheks a.c. HS -sliding scale insulin -resume patient's home long-acting -Diabetic diet -consult to dietitian -encourage lifestyle modifications and weight loss -Optimize Dilip inhibitors and statins. -Watch for hypoglycemia/hypoglycemic protocol ordered DVT/PE HX of -Eliquis resumed Code status: Full code per patient DVT prophylaxis: Eliquis Stress ulcer prophylaxis: Protonix 40 BID PT/OT notes: PT/OT pending Disposition: Patient continues admission to the medical unit for treatment of cirrhosis with ascites and scrotal swelling needs 4rd paracentesis for comfort and will discharge to home on palliative care/HH. -Patient's previous records reviewed on admission -ER notes reviewed in detail on admission -discussed all findings and current treatment plan with patient/Family/POA -Consultations reviewed for recommendations -Patient's disposition for safe discharge discussed with family service caseworker Dictation performed by [employer] direct speech recognition software, therefore drop shipment clerk variants and typographical errors may occur. Subjective Date/time seen: 07/11/23 11:02 Interval history: 07/07: Patient has been out of the hospital for a couple weeks had worsening lower extremity swelling lower abdomen swelling joint swelling PE as scrotum swelling. He was not able to urinate saw Bhatt catheter was placed. This is causing him increased pain. He is already on frequent high-dose narcotic pain medications which will be continued. Patient is established with palliative care states his DNR status is to try to keep him alive until family can be at his bedside and then let him go. Patient reports he would prefer 2 mg morphine instead of 1 mg Dilaudid every 4 hours for breakthrough pain. 07/08: Patient reports reaccumulation abdominal ascites that is tense and painful. Ordered therapeutic paracentesis. Patient will require albumin after procedure. Still has lower extremity and general swelling which is get
[2023-07-11 11:18] LABS: Glucose Point of Care 261 mg/dl (65-105)
[2023-07-11] MEDS: oxyCODONE HCL (*CRX) 5 MG TAB IR 20 MG PO ×2 (12:06→19:32)
[2023-07-11] MEDS: TOLNAFTATE 1% POWDER 45 GM BTL 1 APPLIC TOPICAL ×2 (12:07→20:12)
[2023-07-11 14:00] VITALS: BP 107/80; PULSE 105; RESP 20; TEMP 36.6; O2SAT 98
[2023-07-11 16:45] LABS: Glucose Point of Care 181 mg/dl (65-105)
[2023-07-11 21:34] LABS: Glucose Point of Care 210 mg/dl (65-105)
[2023-07-11 22:00] VITALS: BP 113/75; PULSE 105; RESP 16; TEMP 36.2; O2SAT 96
[2023-07-12] MEDS: MORPHINE SULFATE (*CRX) 4 MG/ML INJ IV PUSH ×5 (01:26→19:58)
[2023-07-12] MEDS: oxyCODONE HCL (*CRX) 5 MG TAB IR 20 MG PO ×3 (04:54→14:51)
[2023-07-12 06:00] VITALS: BP 98/68; PULSE 92; RESP 16; TEMP 36.1; O2SAT 96
[2023-07-12 07:18] LABS: Basophils Percent Auto 0.3 % (0.2-1.2); Eosinophils Absolute Auto 0.1 K/mm3 (0-0.3); Eosinophils Percent Auto 2.9 % (0-4.4); Hematocrit 27.2 % (42.0-52.0); Hemoglobin 7.6 g/dL (14.0-18.0); Immature Granulocyte Absolute 0.01 K/mm3 (0.00-0.031); Immature Granulocyte Percent A 0.3 % (0-0.5); Lymphocytes Percent Auto 14.5 % (18.3-44.2); Mean Corpuscular HGB Conc 27.9 g/dl (32-36); Mean Corpuscular Volume 78.8 fl (80-100); Mean Platelet Volume 11.9 fl (7.4-10.4); Monocytes Absolute Auto 0.6 K/mm3 (0.1-0.6); Monocytes Percent Auto 15.9 % (2.6-8.5); Neutrophils Absolute Auto 2.3 K/mm3 (1.3-6.7); Neutrophils Percent Auto 66.1 % (45.5-73.1); Platelet Count Result 132 k/mm3 (150-375); Red Blood Count 3.45 M/mm3 (4.6-6.20); Red Cell Distribution Width 17.3 % (11.5-14.5); White Blood Count 3.5 K/mm3 (4.5-10.0)
[2023-07-12 07:27] LABS: Alanine Aminotransferase 7 U/L (6-50); Albumin Level 3.3 g/dL (3.5-5.1); Alkaline Phosphatase 124 U/L (38-126); Anion Gap 3 mmol/L (8-16); Aspartate Amino Transferase 21 U/L (17-59); Bilirubin,Total 0.4 mg/dL (0.2-1.3); Blood Urea Nitrogen 23 mg/dL (9-20); Calcium 8.9 mg/dL (8.4-10.2); Carbon Dioxide 36 mmol/L (22-30); Chloride 93 mmol/L (98-107); Estimated CRCL calculation 67 ml/min; Estimated Glomerular Filt Rate > 60; Glucose 128 mg/dL (65-110); Potassium 4.6 mmol/L (3.4-5.0); Sodium 132 mmol/L (137-145)
[2023-07-12 07:43] LABS: Hypochromasia 2+ (NORMAL); Platelet Estimate Decreased (Adequate)
[2023-07-12 07:44] LABS: Schistocytes None Seen (NORMAL)
[2023-07-12 07:58] LABS: Glucose Point of Care 182 mg/dl (65-105)
[2023-07-12] MEDS: FUROSEMIDE INJ 40 MG/4 ML VIAL IV PUSH ×2 (08:15→19:59)
[2023-07-12] MEDS: PANTOPRAZOLE 40 MG TABLET PO ×2 (08:16→19:58)
[2023-07-12] MEDS: SPIRONOLACTONE 50 MG TABLET 100 MG PO ×2 (08:16→19:58)
[2023-07-12] MEDS: POTASSIUM CHLORIDE 20 MEQ ER TABLET PO ×2 (08:16→16:09)
[2023-07-12] MEDS: MIDODRINE HCL 2.5 MG TABLET 5 MG PO ×3 (08:17→16:09)
[2023-07-12] MEDS: APIXABAN 5 MG TABLET PO ×2 (08:17→19:58)
[2023-07-12] MEDS: GABAPENTIN 300 MG CAPSULE PO ×2 (08:17→19:58)
[2023-07-12] MEDS: TOLNAFTATE 1% POWDER 45 GM BTL 1 APPLIC TOPICAL ×2 (08:18→19:59)
--- NOTE | 2023-07-12 11:20 | PM.IMPN ---
Progress Note: A&P Assessment and Plan (1) Abdominal ascites: Qualifiers: Ascites type: other type Qualified Code(s): R18.8 - Other ascites Code(s): R18.8 - Other ascites Status: Acute (2) Edema of male genital organs: Code(s): N50.89 - Other specified disorders of the male genital organs Status: Acute (3) Diastolic congestive heart failure: Qualifiers: Heart failure chronicity: chronic Qualified Code(s): I50.32 - Chronic diastolic (congestive) heart failure Code(s): I50.30 - Unspecified diastolic (congestive) heart failure Status: Acute (4) Cirrhosis of liver with ascites: Qualifiers: Hepatic cirrhosis type: unspecified hepatic cirrhosis Qualified Code(s): K74.60 - Unspecified cirrhosis of liver; R18.8 - Other ascites Code(s): K74.60 - Unspecified cirrhosis of liver; R18.8 - Other ascites Status: Chronic (5) Type 2 diabetes mellitus: Qualifiers: Diabetes mellitus intermediate card tender insulin use: without intermediate card tender use Diabetes mellitus complication status: without complication Qualified Code(s): E11.9 - Type 2 diabetes mellitus without complications Code(s): E11.9 - Type 2 diabetes mellitus without complications Status: Acute (6) Chronic anticoagulation: Code(s): Z79.01 - medical terminologist (current) use of anticoagulants Status: Acute (7) Chronic anemia: Code(s): D64.9 - Anemia, unspecified Status: Acute Plan Cirrhosis of liver with ascites -Paracentesis x3 4th scheduled for 07/13/2023 -IV Lasix -Spironolactone -Albumin IV -Tenckhoff catheter O/P -Pain control -Scrotal swelling elevate with scrotal hammock bhatt catheter placed secondary to urinary retention from swelling D/C 07/13 Anemia -Chronic no known blood loss -secondary to cirrhosis -HGB <7.0 transfuse -daily H&H -resumed Ferrous sulfate -on Eliquis monitor closely for bleeding Diabetes -Accu-Cheks a.c. HS -sliding scale insulin -resume patient's home long-acting -Diabetic diet -consult to dietitian -encourage lifestyle modifications and weight loss -Optimize Dilip inhibitors and statins. -Watch for hypoglycemia/hypoglycemic protocol ordered DVT/PE HX of -Eliquis resumed Code status: Full code per patient DVT prophylaxis: Eliqubenjamin Stress ulcer prophylaxis: Protonix 40 BID PT/OT notes: PT/OT pending Disposition: Patient continues admission to the medical unit for treatment of cirrhosis with ascites and scrotal swelling needs 4rd paracentesis for comfort New plan is discharge to SNF ([facility] made aware) -Patient's previous records reviewed on admission -ER notes reviewed in detail on admission -discussed all findings and current treatment plan with patient/Family/POA -Consultations reviewed for recommendations -Patient's disposition for safe discharge discussed with case management coordinator Dictation performed by [employer] direct speech recognition software, therefore healthcare business analyst variants and typographical errors may occur. Time Spent With Patient Time with patient: less than 15 minutes Subjective Date/time seen: 07/12/23 11:20 Interval history: 07/07: Patient has been out of the hospital for a couple weeks had worsening lower extremity swelling lower abdomen swelling joint swelling PE as scrotum swelling. He was not able to urinate saw Bhatt catheter was placed. This is causing him increased pain. He is already on frequent high-dose narcotic pain medications which will be continued. Patient is established with palliative care states his DNR status is to try to keep him alive until family can be at his bedside and then let him go. Patient reports he would prefer 2 mg morphine instead of 1 mg Dilaudid every 4 hours for breakthrough pain. 07/08: Patient reports reaccumulation abdominal ascites that is tense and painful. Ordered therapeutic paracentesis. Patient will require albumin
--- NOTE | 2023-07-12 11:36 | PC.NURSE ---
Addendum entered by Brittany Lux RN 07/12/23 17:03: Update: [id number] Called [employer], and left message, to ask for pain medication adjustment per patient request. He is a 10/10 at all times. Original Note: Patient resting in bed for morning assessment. Patient very helpful and cooperative. Pain medication schedule discussed and concerns about bhatt addressed. StatLoc placed, wash cloths and towels replenished. 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
[2023-07-12 11:43] LABS: Glucose Point of Care 223 mg/dl (65-105)
[2023-07-12] MEDS: INSULIN ASPART (*BKC) 100 UNITS/ML SUB-Q ×2 (12:12→21:23)
[2023-07-12 14:00] VITALS: BP 113/82; PULSE 104; RESP 16; TEMP 35.9; O2SAT 93
--- NOTE | 2023-07-12 14:15 | PCPTNOTE ---
Attempted to see patient for PT, however patient reported he was using the restroom and asked PT to check back later.
--- NOTE | 2023-07-12 14:40 | PCPTNOTE ---
Attempted to see patient for PT, however patient refused. Pt reported he was up to the commode and chair already and was too sore to get up again and ambulate.
[2023-07-12 17:13] LABS: Glucose Point of Care 191 mg/dl (65-105)
[2023-07-12 20:00] VITALS: O2SAT 93
[2023-07-12 22:00] VITALS: BP 108/68; PULSE 96; RESP 18; TEMP 36.3; O2SAT 98
[2023-07-13 00:49] LABS: Glucose Point of Care 205 mg/dl (65-105)
[2023-07-13] MEDS: MORPHINE SULFATE (*CRX) 4 MG/ML INJ IV PUSH ×6 (02:01→22:02)
[2023-07-13] MEDS: oxyCODONE HCL (*CRX) 5 MG TAB IR 20 MG PO ×5 (04:46→20:25)
[2023-07-13 06:00] VITALS: BP 107/80; PULSE 93; RESP 16; TEMP 36.3; O2SAT 98
[2023-07-13 06:40] LABS: Red Blood Count 3.27 M/mm3 (4.6-6.20); White Blood Count 3.7 K/mm3 (4.5-10.0)
[2023-07-13 06:41] LABS: Basophils Percent Auto 0.5 % (0.2-1.2); Eosinophils Absolute Auto 0.1 K/mm3 (0-0.3); Eosinophils Percent Auto 3.6 % (0-4.4); Hemoglobin 7.2 g/dL (14.0-18.0); Immature Granulocyte Absolute 0.01 K/mm3 (0.00-0.031); Immature Granulocyte Percent A 0.3 % (0-0.5); Lymphocytes Absolute Auto 0.57 K/mm3 (0.9-3.2); Lymphocytes Percent Auto 15.6 % (18.3-44.2); Mean Corpuscular HGB Conc 27.7 g/dl (32-36); Mean Corpuscular Volume 79.5 fl (80-100); Monocytes Absolute Auto 0.6 K/mm3 (0.1-0.6); Monocytes Percent Auto 16.4 % (2.6-8.5); Neutrophils Absolute Auto 2.3 K/mm3 (1.3-6.7); Neutrophils Percent Auto 63.6 % (45.5-73.1); Platelet Count Result 160 k/mm3 (150-375); Red Cell Distribution Width 17.2 % (11.5-14.5)
[2023-07-13 06:56] LABS: Alanine Aminotransferase 7 U/L (6-50); Albumin Level 3.1 g/dL (3.5-5.1); Alkaline Phosphatase 134 U/L (38-126); Anion Gap 6 mmol/L (8-16); Aspartate Amino Transferase 23 U/L (17-59); Bilirubin,Total 0.3 mg/dL (0.2-1.3); Blood Urea Nitrogen 27 mg/dL (9-20); Calcium 8.8 mg/dL (8.4-10.2); Carbon Dioxide 32 mmol/L (22-30); Chloride 91 mmol/L (98-107); Estimated CRCL calculation 62 ml/min; Estimated Glomerular Filt Rate 58; Glucose 165 mg/dL (65-110); Magnesium 2.1 mg/dL (1.6-2.3); Potassium 4.7 mmol/L (3.4-5.0); Sodium 129 mmol/L (137-145)
[2023-07-13 07:45] LABS: Platelet Estimate Adequate (Adequate)
[2023-07-13 07:46] LABS: Hypochromasia 2+ (NORMAL); Schistocytes None Seen (NORMAL); Stomatocytes 1+ (NORMAL)
[2023-07-13 08:00] VITALS: O2SAT 98
[2023-07-13 08:08] LABS: Glucose Point of Care 160 mg/dl (65-105)
[2023-07-13 08:19] VITALS: O2SAT 97
[2023-07-13] MEDS: FUROSEMIDE INJ 40 MG/4 ML VIAL IV PUSH ×2 (08:55→20:25)
[2023-07-13] MEDS: GABAPENTIN 300 MG CAPSULE PO ×2 (08:56→20:25)
[2023-07-13] MEDS: MIDODRINE HCL 2.5 MG TABLET 5 MG PO ×3 (08:56→17:58)
[2023-07-13] MEDS: SPIRONOLACTONE 50 MG TABLET 100 MG PO ×2 (08:56→20:25)
[2023-07-13] MEDS: APIXABAN 5 MG TABLET PO ×2 (08:56→20:25)
[2023-07-13] MEDS: TOLNAFTATE 1% POWDER 45 GM BTL 1 APPLIC TOPICAL ×2 (08:57→20:35)
[2023-07-13] MEDS: PANTOPRAZOLE 40 MG TABLET PO ×2 (08:57→20:25)
--- NOTE | 2023-07-13 08:59 | PC.NURSE ---
Julissa Gonsales TEST AND RESEARCH REACTOR OPERATOR notified of potassium 4.7 and holding am potassium
--- NOTE | 2023-07-13 11:21 | PM.IMPN ---
Progress Note: A&P Assessment and Plan (1) Abdominal ascites: Qualifiers: Ascites type: other type Qualified Code(s): R18.8 - Other ascites Code(s): R18.8 - Other ascites Status: Acute (2) Edema of male genital organs: Code(s): N50.89 - Other specified disorders of the male genital organs Status: Acute (3) Diastolic congestive heart failure: Qualifiers: Heart failure chronicity: chronic Qualified Code(s): I50.32 - Chronic diastolic (congestive) heart failure Code(s): I50.30 - Unspecified diastolic (congestive) heart failure Status: Acute (4) Cirrhosis of liver with ascites: Qualifiers: Hepatic cirrhosis type: unspecified hepatic cirrhosis Qualified Code(s): K74.60 - Unspecified cirrhosis of liver; R18.8 - Other ascites Code(s): K74.60 - Unspecified cirrhosis of liver; R18.8 - Other ascites Status: Chronic (5) Type 2 diabetes mellitus: Qualifiers: Diabetes mellitus terminal computer operator insulin use: without terminal computer operator use Diabetes mellitus complication status: without complication Qualified Code(s): E11.9 - Type 2 diabetes mellitus without complications Code(s): E11.9 - Type 2 diabetes mellitus without complications Status: Acute (6) Chronic anticoagulation: Code(s): Z79.01 - watermaster (current) use of anticoagulants Status: Acute (7) Chronic anemia: Code(s): D64.9 - Anemia, unspecified Status: Acute Plan Cirrhosis of liver with ascites -Paracentesis x3 4th scheduled for 07/13/2023 -IV Lasix -Spironolactone -Albumin IV -Tenckhoff catheter O/P -Pain control -Scrotal swelling elevate with scrotal hammock bhatt catheter placed secondary to urinary retention from swelling D/C 07/13 Anemia -Chronic no known blood loss -secondary to cirrhosis -HGB <7.0 transfuse -daily H&H -resumed Ferrous sulfate -on Eliquis monitor closely for bleeding Diabetes -Accu-Cheks a.c. HS -sliding scale insulin -resume patient's home long-acting -Diabetic diet -consult to dietitian -encourage lifestyle modifications and weight loss -Optimize Dilip inhibitors and statins. -Watch for hypoglycemia/hypoglycemic protocol ordered DVT/PE HX of -Eliquis resumed Code status: Full code per patient DVT prophylaxis: Eliquis Stress ulcer prophylaxis: Protonix 40 BID PT/OT notes: PT/OT pending Disposition: Patient continues admission to the medical unit for treatment of cirrhosis with ascites and scrotal swelling needs 4th paracentesis for comfort New plan is discharge to SNF. -Patient's previous records reviewed on admission -ER notes reviewed in detail on admission -discussed all findings and current treatment plan with patient/Family/POA -Consultations reviewed for recommendations -Patient's disposition for safe discharge discussed with counseling case manager Dictation performed by [employer] direct speech recognition software, therefore group program manager variants and typographical errors may occur. Time Spent With Patient Time with patient: 15 - 25 minutes Subjective Date/time seen: 07/13/23 11:21 Interval history: 07/07: Patient has been out of the hospital for a couple weeks had worsening lower extremity swelling lower abdomen swelling joint swelling PE as scrotum swelling. He was not able to urinate saw Bhatt catheter was placed. This is causing him increased pain. He is already on frequent high-dose narcotic pain medications which will be continued. Patient is established with palliative care states his DNR status is to try to keep him alive until family can be at his bedside and then let him go. Patient reports he would prefer 2 mg morphine instead of 1 mg Dilaudid every 4 hours for breakthrough pain. 07/08: Patient reports reaccumulation abdominal ascites that is tense and painful. Ordered therapeutic paracentesis. Patient will require albumin after procedure. Still has
[2023-07-13 11:28] LABS: Glucose Point of Care 285 mg/dl (65-105)
[2023-07-13] MEDS: INSULIN ASPART (*BKC) 100 UNITS/ML SUB-Q (12:33)
[2023-07-13] MEDS: ALBUMIN HUMAN 25% 25 GM/100 ML 100 ML IVPB ×2 (12:34→17:59)
[2023-07-13 14:00] VITALS: BP 117/66; PULSE 100; RESP 22; TEMP 36.8; O2SAT 97
--- NOTE | 2023-07-13 14:50 | PCPTNOTE ---
The patient treatment was not able to be completed due to patient out of room for testing/procedure. Will plan to continue treatment per plan of care.
[2023-07-13 16:13] LABS: Glucose Point of Care 105 mg/dl (65-105)
[2023-07-13] MEDS: POTASSIUM CHLORIDE 20 MEQ ER TABLET PO (17:58)
[2023-07-13 21:47] VITALS: BP 103/59; PULSE 93; RESP 20; TEMP 37.1; O2SAT 93
[2023-07-13 22:08] LABS: Glucose Point of Care 173 mg/dl (65-105)
[2023-07-14] VITALS (7 sets, daily range): BP systolic 100–121; BP diastolic 57–72; PULSE 88–105; RESP 16–20; TEMP 36.7–37; O2SAT 96–100
[2023-07-14] MEDS: ALBUMIN HUMAN 25% 25 GM/100 ML 100 ML IVPB ×4 (00:14→17:44)
[2023-07-14] MEDS: oxyCODONE HCL (*CRX) 5 MG TAB IR 20 MG PO ×6 (00:15→20:46)
[2023-07-14] MEDS: MORPHINE SULFATE (*CRX) 4 MG/ML INJ IV PUSH ×6 (02:03→22:06)
[2023-07-14 06:37] LABS: Basophils Percent Auto 0.7 % (0.2-1.2); Eosinophils Absolute Auto 0.1 K/mm3 (0-0.3); Eosinophils Percent Auto 3.3 % (0-4.4); Hematocrit 23.9 % (42.0-52.0); Immature Granulocyte Absolute 0.01 K/mm3 (0.00-0.031); Immature Granulocyte Percent A 0.4 % (0-0.5); Lymphocytes Absolute Auto 0.44 K/mm3 (0.9-3.2); Lymphocytes Percent Auto 16.2 % (18.3-44.2); Mean Corpuscular HGB Conc 26.8 g/dl (32-36); Mean Corpuscular Hemoglobin 21.5 pg (26-34); Mean Corpuscular Volume 80.5 fl (80-100); Mean Platelet Volume 10.8 fl (7.4-10.4); Monocytes Absolute Auto 0.5 K/mm3 (0.1-0.6); Neutrophils Absolute Auto 1.7 K/mm3 (1.3-6.7); Neutrophils Percent Auto 61.4 % (45.5-73.1); Platelet Count Result 139 k/mm3 (150-375); Red Blood Count 2.97 M/mm3 (4.6-6.20); Red Cell Distribution Width 17.2 % (11.5-14.5); White Blood Count 2.7 K/mm3 (4.5-10.0)
[2023-07-14 06:51] LABS: Alanine Aminotransferase 8 U/L (6-50); Albumin Level 3.5 g/dL (3.5-5.1); Alkaline Phosphatase 130 U/L (38-126); Anion Gap 6 mmol/L (8-16); Aspartate Amino Transferase 25 U/L (17-59); Bilirubin,Total 0.3 mg/dL (0.2-1.3); Blood Urea Nitrogen 27 mg/dL (9-20); Calcium 8.9 mg/dL (8.4-10.2); Carbon Dioxide 29 mmol/L (22-30); Chloride 94 mmol/L (98-107); Estimated CRCL calculation 62 ml/min; Estimated Glomerular Filt Rate 58; Glucose 206 mg/dL (65-110); Magnesium 2.1 mg/dL (1.6-2.3); Potassium 4.4 mmol/L (3.4-5.0); Sodium 129 mmol/L (137-145)
[2023-07-14 07:19] LABS: Hemoglobin 6.4 g/dL (14.0-18.0); Hypochromasia 3+ (NORMAL); Ovalocytes 1+ (NORMAL); Schistocytes None Seen (NORMAL)
[2023-07-14 07:34] LABS: Glucose Point of Care 190 mg/dl (65-105)
[2023-07-14] MEDS: APIXABAN 5 MG TABLET PO ×2 (08:41→20:44)
[2023-07-14] MEDS: SPIRONOLACTONE 50 MG TABLET 100 MG PO ×2 (08:41→20:43)
[2023-07-14] MEDS: MIDODRINE HCL 2.5 MG TABLET 5 MG PO ×3 (08:42→16:51)
[2023-07-14] MEDS: FUROSEMIDE INJ 40 MG/4 ML VIAL IV PUSH ×2 (08:42→20:43)
[2023-07-14] MEDS: POTASSIUM CHLORIDE 20 MEQ ER TABLET PO ×2 (08:42→16:51)
[2023-07-14] MEDS: GABAPENTIN 300 MG CAPSULE PO ×2 (08:42→20:43)
[2023-07-14] MEDS: PANTOPRAZOLE 40 MG TABLET PO ×2 (08:42→20:44)
[2023-07-14] MEDS: TOLNAFTATE 1% POWDER 45 GM BTL 1 APPLIC TOPICAL ×2 (09:27→20:53)
[2023-07-14 11:52] LABS: Glucose Point of Care 287 mg/dl (65-105)
[2023-07-14] MEDS: INSULIN ASPART (*BKC) 100 UNITS/ML SUB-Q ×2 (12:44→17:36)
--- NOTE | 2023-07-14 12:55 | PM.IMPN ---
Progress Note: A&P Assessment and Plan (1) Abdominal ascites: Qualifiers: Ascites type: other type Qualified Code(s): R18.8 - Other ascites Code(s): R18.8 - Other ascites Status: Acute (2) Edema of male genital organs: Code(s): N50.89 - Other specified disorders of the male genital organs Status: Acute (3) Diastolic congestive heart failure: Qualifiers: Heart failure chronicity: chronic Qualified Code(s): I50.32 - Chronic diastolic (congestive) heart failure Code(s): I50.30 - Unspecified diastolic (congestive) heart failure Status: Acute (4) Cirrhosis of liver with ascites: Qualifiers: Hepatic cirrhosis type: unspecified hepatic cirrhosis Qualified Code(s): K74.60 - Unspecified cirrhosis of liver; R18.8 - Other ascites Code(s): K74.60 - Unspecified cirrhosis of liver; R18.8 - Other ascites Status: Chronic (5) Type 2 diabetes mellitus: Qualifiers: Diabetes mellitus terminal worker insulin use: without terminal worker use Diabetes mellitus complication status: without complication Qualified Code(s): E11.9 - Type 2 diabetes mellitus without complications Code(s): E11.9 - Type 2 diabetes mellitus without complications Status: Acute (6) Chronic anticoagulation: Code(s): Z79.01 - FDC (current) use of anticoagulants Status: Acute (7) Chronic anemia: Code(s): D64.9 - Anemia, unspecified Status: Acute Plan Cirrhosis of liver with ascites -Paracentesis x 4 would continue with paracentesis as needed while hospitalized -IV Lasix -Spironolactone -Albumin IV -Tenckhoff catheter O/P -Pain control -Russo d/c voiding Anemia -Chronic no known blood loss -secondary to cirrhosis -HGB <7.0 transfuse -daily H&H -resumed Ferrous sulfate -on Eliquis monitor closely for bleeding -Hgb dropped to 6.4 transfused 1 unit PRBC -F/U H&H Diabetes -Accu-Cheks a.c. HS -sliding scale insulin -resume patient's home long-acting -Diabetic diet -consult to dietitian -encourage lifestyle modifications and weight loss -Optimize Dilip inhibitors and statins. -Watch for hypoglycemia/hypoglycemic protocol ordered DVT/PE HX of -Eliquis resumed Code status: Full code per patient DVT prophylaxis: Eliquis Stress ulcer prophylaxis: Protonix 40 BID PT/OT notes: PT/OT pending Disposition: Patient continues admission to the medical unit for treatment of cirrhosis with ascites New plan is discharge to SNF. -Patient's previous records reviewed on admission -ER notes reviewed in detail on admission -discussed all findings and current treatment plan with patient/Family/POA -Consultations reviewed for recommendations -Patient's disposition for safe discharge discussed with outpatient case manager Dictation performed by [employer] direct speech recognition software, therefore customer service receptionist variants and typographical errors may occur. Subjective Date/time seen: 07/14/23 12:55 Interval history: 07/07: Patient has been out of the hospital for a couple weeks had worsening lower extremity swelling lower abdomen swelling joint swelling PE as scrotum swelling. He was not able to urinate saw Russo catheter was placed. This is causing him increased pain. He is already on frequent high-dose narcotic pain medications which will be continued. Patient is established with palliative care states his DNR status is to try to keep him alive until family can be at his bedside and then let him go. Patient reports he would prefer 2 mg morphine instead of 1 mg Dilaudid every 4 hours for breakthrough pain. 07/08: Patient reports reaccumulation abdominal ascites that is tense and painful. Ordered therapeutic paracentesis. Patient will require albumin after procedure. Still has lower extremity and general swelling which is getting little better after diuretics. Patient reporting morphine 2 mg is no
--- NOTE | 2023-07-14 14:40 | PC.NURSE ---
On 07/14/23, the student, Jessica Cunha, provided care and completed [facility] documentation on this patient. I have reviewed the student's documentation and agree with the findings.
[2023-07-14 16:20] LABS: Glucose Point of Care 181 mg/dl (65-105)
[2023-07-14 16:56] LABS: Hematocrit 24.2 % (42.0-52.0)
[2023-07-14 17:03] LABS: Hemoglobin 6.7 g/dL (14.0-18.0)
[2023-07-14 19:38] LABS: Glucose Point of Care 143 mg/dl (65-105)
[2023-07-14] MEDS: SODIUM CHLORIDE 0.9% IV 250 ML 30 ML IV CONT (22:30)
[2023-07-15] MEDS: oxyCODONE HCL (*CRX) 5 MG TAB IR 20 MG PO ×5 (00:20→16:21)
[2023-07-15 00:36] VITALS: BP 108/66; PULSE 86; RESP 18; TEMP 36.5; O2SAT 99
[2023-07-15 00:56] VITALS: BP 108/62; PULSE 86; RESP 18; TEMP 36.7; O2SAT 100
[2023-07-15] MEDS: ALBUMIN HUMAN 25% 25 GM/100 ML 100 ML IVPB ×3 (01:06→12:30)
[2023-07-15] MEDS: MORPHINE SULFATE (*CRX) 4 MG/ML INJ IV PUSH ×4 (02:13→14:34)
[2023-07-15 02:33] LABS: Hematocrit 26.6 % (42.0-52.0); Hemoglobin 7.4 g/dL (14.0-18.0)
[2023-07-15 06:00] VITALS: BP 98/60; PULSE 82; RESP 18; TEMP 36.4; O2SAT 96
[2023-07-15 07:10] LABS: Basophils Percent Auto 0.6 % (0.2-1.2); Eosinophils Absolute Auto 0.1 K/mm3 (0-0.3); Hematocrit 26.2 % (42.0-52.0); Hemoglobin 7.5 g/dL (14.0-18.0); Immature Granulocyte Absolute 0.01 K/mm3 (0.00-0.031); Immature Granulocyte Percent A 0.3 % (0-0.5); Lymphocytes Absolute Auto 0.41 K/mm3 (0.9-3.2); Lymphocytes Percent Auto 12.5 % (18.3-44.2); Mean Corpuscular HGB Conc 28.6 g/dl (32-36); Mean Corpuscular Hemoglobin 22.7 pg (26-34); Mean Corpuscular Volume 79.2 fl (80-100); Mean Platelet Volume 11.1 fl (7.4-10.4); Monocytes Absolute Auto 0.6 K/mm3 (0.1-0.6); Monocytes Percent Auto 18.7 % (2.6-8.5); Neutrophils Absolute Auto 2.1 K/mm3 (1.3-6.7); Neutrophils Percent Auto 63.9 % (45.5-73.1); Platelet Count Result 147 k/mm3 (150-375); Red Blood Count 3.31 M/mm3 (4.6-6.20); Red Cell Distribution Width 16.9 % (11.5-14.5); White Blood Count 3.3 K/mm3 (4.5-10.0)
[2023-07-15 07:37] LABS: Alanine Aminotransferase 7 U/L (6-50); Albumin Level 3.9 g/dL (3.5-5.1); Alkaline Phosphatase 123 U/L (38-126); Anion Gap 12 mmol/L (8-16); Aspartate Amino Transferase 24 U/L (17-59); Bilirubin,Total 0.5 mg/dL (0.2-1.3); Blood Urea Nitrogen 28 mg/dL (9-20); Calcium 9.5 mg/dL (8.4-10.2); Carbon Dioxide 27 mmol/L (22-30); Chloride 94 mmol/L (98-107); Estimated CRCL calculation 61 ml/min; Estimated Glomerular Filt Rate 58; Glucose 150 mg/dL (65-110); Magnesium 2.1 mg/dL (1.6-2.3); Potassium 4.5 mmol/L (3.4-5.0); Sodium 133 mmol/L (137-145)
[2023-07-15 07:39] LABS: Glucose Point of Care 229 mg/dl (65-105)
[2023-07-15] MEDS: GABAPENTIN 300 MG CAPSULE PO (08:13)
[2023-07-15] MEDS: POTASSIUM CHLORIDE 20 MEQ ER TABLET PO ×2 (08:13→16:27)
[2023-07-15] MEDS: SPIRONOLACTONE 50 MG TABLET 100 MG PO (08:14)
[2023-07-15] MEDS: PANTOPRAZOLE 40 MG TABLET PO (08:14)
[2023-07-15] MEDS: APIXABAN 5 MG TABLET PO (08:14)
[2023-07-15] MEDS: MIDODRINE HCL 2.5 MG TABLET 5 MG PO ×3 (08:14→16:22)
[2023-07-15] MEDS: FUROSEMIDE INJ 40 MG/4 ML VIAL IV PUSH (08:15)
[2023-07-15] MEDS: INSULIN ASPART (*BKC) 100 UNITS/ML SUB-Q ×2 (08:15→12:33)
[2023-07-15 09:15] LABS: Anisocytosis 1+ (NORMAL); Hypochromasia 2+ (NORMAL)
[2023-07-15 09:16] LABS: Schistocytes None Seen (NORMAL)
--- NOTE | 2023-07-15 09:42 | PCNWS ---
Weekly nutritional screen. Patient is tolerating current diet with adequate intake. No weight loss reported. No nutritional needs at this time.
[2023-07-15] MEDS: TOLNAFTATE 1% POWDER 45 GM BTL 1 APPLIC TOPICAL (10:18)
[2023-07-15 11:47] LABS: Glucose Point of Care 167 mg/dl (65-105)
--- NOTE | 2023-07-15 12:41 | PM.DS ---
DS: Admitting Diagnosis Discharge Date 07/15/23 Admitting Diagnosis Abdominal distension, cirrhosis, ascites DS: Discharge Diagnosis Discharge Diagnosis (1) Abdominal ascites: Qualifiers: Ascites type: other type Qualified Code(s): R18.8 - Other ascites Code(s): R18.8 - Other ascites Status: Acute (2) Edema of male genital organs: Code(s): N50.89 - Other specified disorders of the male genital organs Status: Acute (3) Diastolic congestive heart failure: Qualifiers: Heart failure chronicity: chronic Qualified Code(s): I50.32 - Chronic diastolic (congestive) heart failure Code(s): I50.30 - Unspecified diastolic (congestive) heart failure Status: Acute (4) Cirrhosis of liver with ascites: Qualifiers: Hepatic cirrhosis type: unspecified hepatic cirrhosis Qualified Code(s): K74.60 - Unspecified cirrhosis of liver; R18.8 - Other ascites Code(s): K74.60 - Unspecified cirrhosis of liver; R18.8 - Other ascites Status: Chronic (5) Type 2 diabetes mellitus: Qualifiers: Diabetes mellitus complication status: without complication Diabetes mellitus terminologist insulin use: without chcf use Qualified Code(s): E11.9 - Type 2 diabetes mellitus without complications Code(s): E11.9 - Type 2 diabetes mellitus without complications Status: Acute (6) Chronic anticoagulation: Code(s): Z79.01 - snf (current) use of anticoagulants Status: Acute (7) Chronic anemia: Code(s): D64.9 - Anemia, unspecified Status: Acute DS: Summary Hospital Course Hospital Course: This is a 53-year-old male with a past medical history of cirrhosis, esophageal varices, gastric ulcers, pericardial effusion, pulmonary hypertension, diabetes, DVT on anticoagulation, diastolic congestive heart failure and cerebral other comorbidities present to the ED on 07/04/2023 due to swelling and difficulty urinating. He does have chronic swelling but swelling had significantly worsened. Patient had difficulty urinating and scrotal swelling. Urinary catheter was placed. Patient gets every other day paracentesis. Patient also had pretty significant pain and required IV pain medication for this. Apparently he had been on palliative care although they did not do paracentesis for him and due to his extreme discomfort he wanted then performed. Patient continued with pain control and paracentesis every other day during his hospital stay. Patient unable to take care of himself at home and placement was arranged for him. His Russo catheter was removed and he is able to void on his own. Patient's swelling improved over his hospital stay. Discussed hospice care with the patient although he is not ready for this at this time. Will discharge patient to SNF on home pain medication. Time Spent with Patient Time attestation: Total time spent providing and/or coordinating discharge services: Exam Narrative: GENERAL: Comfortable, no acute distress HENMT: moist mucous membranes EYES: EOM intact b/l NECK: no lymphadenopathy RESPIRATORY: clear to auscultation CARDIO: RRR GI: soft, nontender, bowel sounds present , abdominal distension SKIN: no rashes EXTREMITIES: no edema, redness or tenderness DS: Data Data Completed and Pending Labs on day of discharge: Labs from last 24 hours 07/15/23 07/15/23 07/15/23 11:40 07:37 06:24 WBC 3.3 L RBC 3.31 L Hgb 7.5 L Hct 26.2 L MCV 79.2 L MCH 22.7 L D MCHC 28.6 L RDW 16.9 H Plt Count 147 L MPV 11.1 H Immature Gran % (Auto) 0.3 Neut % (Auto) 63.9 Lymph % (Auto) 12.5 L Linn % (Auto) 18.7 H Eos % (Auto) 4.0 Baso % (Auto) 0.6 Lymph # (Auto) 0.41 L Linn # (Auto) 0.6 Eos # (Auto) 0.1 Baso # (Auto) 0.0 Abs Immat Gran (auto) 0.01 Absolute Neuts (auto) 2.1 Absolute Nucleated RBC 0.0 Nucleated RBC % 0.0 Platelet Estim
--- NOTE | 2023-07-15 14:36 | PCOTNOTE ---
Therapist checked back in with Patient for the 2nd time this P.M. for OT treatment. Patient was out of the room for a paracentesis and per RN, will be discharged when he returns.
[2023-07-15 16:49] LABS: Glucose Point of Care 146 mg/dl (65-105)
== END 2023-07-15 17:10 ==
LOC: ANHED 14:00 → ANH3MEDSUR 15:15
PROVIDERS: Internal Medicine; Nurse Practitioner; Nurse Practitioner Family; Physician Assistant; Admitting Provider Internal Medicine; Emergency Provider Emergency Medicine; PCP Hospitalist; Visit Provider Internal Medicine Critical Care Medicine
DX: K74.60 Unspecified cirrhosis of liver (principal); R18.8 Other ascites; I85.10 Secondary esophageal varices without bleeding; I11.0 Hypertensive heart disease with heart failure; I50.32 Chronic diastolic (congestive) heart failure; I31.39 Other pericardial effusion (noninflammatory); D64.9 Anemia, unspecified; E11.9 Type 2 diabetes mellitus without complications; K21.9 Gastro-esophageal reflux disease without esophagitis; K27.9 Peptic ulcer, site unspecified, unspecified as acute or chronic, without hemorrhage or perforation; K76.6 Portal hypertension; K31.89 Other diseases of stomach and duodenum; N50.89 Other specified disorders of the male genital organs; R33.9 Retention of urine, unspecified; M19.90 Unspecified osteoarthritis, unspecified site; F17.210 Nicotine dependence, cigarettes, uncomplicated; Z79.4 Long term (current) use of insulin; Z86.73 Personal history of transient ischemic attack (TIA), and cerebral infarction without residual deficits; Z85.46 Personal history of malignant neoplasm of prostate; Z85.6 Personal history of leukemia
CPT/HCPCS: 36415; 36430; 49083; 80053; 81001; 82948; 83690; 83735; 85014; 85018; 85025; 85027; 85055; 86850; 86880; 86900; 86901; 86902; 86922; 96374; 96375; 96376; 97116; 97162; 97166; 97530; 99285; A9270; G0378; G0379; J1170; J1815; J1940; J2270; J7050; P9016; P9047

== ENCOUNTER 2023-07-31 09:30 | Outpatient (RCR) | payer OTHER, SELFPAY ==
[2023-07-20 10:31] LABS: Mean Platelet Volume 10.6 fl (7.4-10.4); Platelet Count Result 174 k/mm3 (150-375)
[2023-07-20 10:40] LABS: INR 1.3; Prothrombin Time 16.8 Seconds (11.1-14.7)
--- NOTE | ~2023-07-31 | US_ITS ---
EXAMINATION: US paracentesis abd w/image DATE: 07/20/2023 11:59 INDICATION: Cirrhosis of liver with ascites TECHNIQUE: The procedure and its risks and benefits were discussed with the patient. Potential risks discussed included bleeding and infection. The skin was prepped and draped in sterile fashion. 1% lid ocaine was used for local anesthesia. Under ultrasound guidance, a 5 Fr catheter with trochar was adv anced into the ascites in the right lower quadrant. Fluid was aspirated into vacuum bottles. The cath eter was removed, and a dressing was applied. There were no immediate complications. FINDINGS: Ultrasound images demonstrate ascites and the catheter within the fluid. IMPRESSION: 1. Successful ultrasound-guided paracentesis yielding 2250 mL of cloudy yellow fluid. Reviewed, dictated and finalized at location A. TUTOR
--- NOTE | ~2023-07-31 | US_ITS ---
EXAMINATION: US paracentesis abd w/image DATE: 07/24/2023 10:39 INDICATION: Ascites. TECHNIQUE: The procedure and its risks and benefits were discussed with the patient. Potential risks discussed included bleeding and infection. The skin was prepped and draped in sterile fashion. 1% lid ocaine was used for local anesthesia. Under ultrasound guidance, a 5 Fr catheter with trochar was adv anced into the ascites in the right lower quadrant. Fluid was aspirated into vacuum bottles. The cath eter was removed, and a dressing was applied. There were no immediate complications. FINDINGS: Ultrasound images demonstrate ascites and the catheter within the fluid. IMPRESSION: 1. Successful ultrasound-guided paracentesis yielding 3550 mL of yellow fluid. Reviewed, dictated and finalized at location A. RA SUPERVISOR
--- NOTE | ~2023-07-31 | US_ITS ---
EXAMINATION: US paracentesis abd w/image DATE: 07/17/2023 12:18 INDICATION: Ascites. TECHNIQUE: The procedure and its risks, benefits, and alternatives were discussed with the patient. P otential risks discussed included bleeding and infection. The skin was prepped and draped in sterile fashion. 1% lidocaine was used for local anesthesia. Under ultrasound guidance, a 5 Fr catheter with trochar was advanced into the ascites in the right abdomen in two locations. Fluid was aspirated. The catheter was removed, and a dressing was applied. There were no immediate complications. FINDINGS: Ultrasound images demonstrate ascites and the catheter within the fluid. IMPRESSION: 1. Successful ultrasound-guided paracentesis yielding 2,000 mL of yellow fluid. Reviewed, dictated and finalized at location A. OR QA TESTER IMPRESSION: 1. Successful ultrasound-guided paracentesis yielding 2,000 mL of yellow fluid .
== END 2023-10-15 23:59 | disposition home or self-care (01) ==
LOC: ANHIMG 09:30
PROVIDERS: Radiology Diagnostic Radiology; PCP Hospitalist; Visit Provider Hospitalist
DX: K74.60 Unspecified cirrhosis of liver (principal); R18.8 Other ascites
CPT/HCPCS: 36415; 49083; 85049; 85610; C1729

== ENCOUNTER 2024-03-08 01:25 | Emergency (ER) | payer MEDICARE, MEDICAID, SELFPAY ==
--- NOTE | ~2024-03-08 | XR_ITS ---
AP view of the pelvis and AP and lateral views of the right hip Clinical history: Pain Findings: There are probable acute, nearly nondisplaced bilateral superior and inferior pubic ramus f ractures. No femoral neck fracture seen.. Bilateral hip and SI joint spaces are preserved. Soft tissu es are unremarkable. Impression: Probable acute, nearly nondisplaced bilateral superior and inferior pubic ramus fractures. Reviewed, dictated and finalized at location . Impression: Probable acute, nearly nondisplaced bilateral superior and inferior pubic ramus fractures.
[2024-03-08 01:32] VITALS: BP 116/78; PULSE 91; RESP 16; TEMP 36.5; O2SAT 96
--- NOTE | 2024-03-08 01:34 | ED.FALL ---
HPI - Fall General Chief Complaint: Fall <NEO Villaseñor Last Filed: 03/08/24 02:35> Stated Complaint: fall, R hip pn <NEO Villaseñor Last Filed: 03/08/24 02:35> Time Seen by Provider: 03/08/24 01:26 <Geetha Echols PA-C - Last Filed: 03/08/24 02:35> History of Present Illness HPI Narrative: 54-year-old male with a history of cirrhosis of the liver, CHF, hypertension, type 2 diabetes, GERD presents to the ED via EMS from [facility] for right hip pain. Patient states he fell 2 days ago and again tonight. Both falls were him leaving the bathroom. States he slipped on his socks and fell to the ground landing on his right hip both times. He did not hit his head or lose consciousness. He denies other injuries acquired. States the fall tonight with significantly worse than the 1 a couple of days ago which prompted him to come to the ED. Pt [facility]. EMS states hospice was notified. Pt received 40mg of Oxycodone prior to leaving the long-term. <NEO Villaseñor Last Filed: 03/08/24 02:35> Related Data Home Medications: Home Medications Medication Instructions Recorded Confirmed potassium chloride 20 mEq 20 meq PO BID 04/11/22 07/06/23 tablet,extended release(part/cryst) furosemide 40 mg tablet 80 mg PO BID 08/25/22 07/06/23 insulin lispro protamine-lispro 5 unit subcut ACHS PRN 01/21/23 07/06/23 100 unit/mL (75-25) subcutaneous Hyperglycemia pen spironolactone 50 mg tablet 100 mg PO Q12H 04/13/23 07/06/23 (Aldactone) apixaban 5 mg tablet (Eliquis) 5 mg PO BID 05/09/23 07/06/23 <NEO Villaseñor Last Filed: 03/08/24 02:35> Allergies/Adverse Reactions: Allergies Allergy/AdvReac Type Severity Reaction Status Date / Time ceftriaxone AdvReac Itching Verified 03/08/24 01:36 ciprofloxacin AdvReac Itching Verified 03/08/24 01:36 <Geetha Echols PA-C - Last Filed: 03/08/24 02:35> Review of Systems Review of Systems: All systems reviewed & are unremarkable except as noted in HPI and below <Geetha Echols PA-C - Last Filed: 03/08/24 02:35> [facility] Past Medical History Medical History: Medical History Arthritis C. difficile colitis Cerebrovascular accident (2004) Chronic anemia Chronic anticoagulation Cirrhosis of liver with ascites Closed fracture of left proximal humerus Diarrhea Diastolic congestive heart failure Esophageal varices Gastric ulcer Gastroesophageal reflux disease GI bleed Hyperglycemia Hypertension Kidney stone Leukemia In childhood. Pancreatic abnormality Pericardial effusion Noted on CT and echocardiogram in August 2020. No evidence of tamponade. Portal hypertensive gastropathy Noted on endoscopy on 03/23/[address] Duran. Prostate cancer Status post radiation seed implantation. Smoker Spontaneous bacterial peritonitis (04/2020) Tobacco dependence Type 2 diabetes mellitus <Geetha Echols PA-C - Last Filed: 03/08/24 02:35> Surgical History Surgical History: Surgical History History of appendectomy History of cholecystectomy History of cystoscopy History of inguinal hernia repair History of lithotripsy History of repair of right rotator cuff <Geetha Echols PA-C - Last Filed: 03/08/24 02:35> Family History Family History: Family History Mother Breast cancer Father Acute myocardial infarction Heart disease Hypertension Other Diabetes mellitus Maternal Uncle Sibling Family history of malignant neoplasm <Geetha Echols PA-C - Last Filed: 03/08/24 02:35> Social History Social History: Social History Social History: Surrogate decision maker: Myra Worley () or Marnie Guzman
[2024-03-08] MEDS: ONDANSETRON INJ 4 MG/2 ML VIAL IV PUSH (04:57)
[2024-03-08] MEDS: MORPHINE SULFATE (*CRX) 4 MG/ML INJ IV PUSH (04:58)
[2024-03-08 04:59] VITALS: BP 110/76; PULSE 89; RESP 14; O2SAT 93
[2024-03-08 07:55] VITALS: BP 113/88; PULSE 84; RESP 16; O2SAT 91
[2024-03-08 10:13] VITALS: BP 103/71; PULSE 85; RESP 18; O2SAT 92
== END 2024-03-08 10:30 ==
PROVIDERS: Emergency Provider Emergency Medicine; PCP Hospitalist
DX: S32.592A Other specified fracture of left pubis, initial encounter for closed fracture (principal); S32.591A Other specified fracture of right pubis, initial encounter for closed fracture; I11.0 Hypertensive heart disease with heart failure; I50.30 Unspecified diastolic (congestive) heart failure; E11.9 Type 2 diabetes mellitus without complications; K21.9 Gastro-esophageal reflux disease without esophagitis; K74.60 Unspecified cirrhosis of liver; M19.90 Unspecified osteoarthritis, unspecified site; F17.210 Nicotine dependence, cigarettes, uncomplicated; Z86.73 Personal history of transient ischemic attack (TIA), and cerebral infarction without residual deficits; Z87.442 Personal history of urinary calculi; Z85.6 Personal history of leukemia; Z85.46 Personal history of malignant neoplasm of prostate; Z79.4 Long term (current) use of insulin; Z79.01 Long term (current) use of anticoagulants; Z90.49 Acquired absence of other specified parts of digestive tract; W01.0XXA Fall on same level from slipping, tripping and stumbling without subsequent striking against object, initial encounter
CPT/HCPCS: 73502; 96374; 96375; 99284; J2270; J2405

== ENCOUNTER 2024-03-25 11:26 | Emergency (ER) | payer MEDICARE, MEDICAID, SELFPAY ==
[2024-03-25] VITALS (19 sets, daily range): BP systolic 90–107; BP diastolic 59–77; PULSE 84–103; RESP 13–38; TEMP 36.6; O2SAT 94–99
--- NOTE | ~2024-03-25 | US_ITS ---
EXAMINATION: US paracentesis abd w/image DATE: 03/25/2024 14:37 INDICATION: Ascites. Cirrhosis of the liver. TECHNIQUE: The procedure and its risks, benefits, and alternatives were discussed with the patient. P otential risks discussed included bleeding and infection. The skin was prepped and draped in sterile fashion. 1% lidocaine was used for local anesthesia. Under ultrasound guidance, a 5 Fr catheter with trochar was advanced into the ascites in the left lower quadrant. Fluid was aspirated. The catheter w as removed, and a dressing was applied. There were no immediate complications. FINDINGS: Ultrasound images demonstrate ascites and the catheter within the fluid. IMPRESSION: 1. Successful ultrasound-guided paracentesis yielding 400 mL of clear, yellow fluid. Reviewed, dictated and finalized at location A.
[2024-03-25 12:09] LABS: Basophils Percent Auto 0.5 % (0.2-1.2); Eosinophils Percent Auto 0.5 % (0-4.4); Hemoglobin 9.2 g/dL (14.0-18.0); Immature Granulocyte Absolute 0.05 K/mm3 (0.00-0.031); Immature Granulocyte Percent A 0.8 % (0-0.5); Lymphocytes Absolute Auto 0.27 K/mm3 (0.9-3.2); Lymphocytes Percent Auto 4.1 % (18.3-44.2); Mean Corpuscular HGB Conc 27.9 g/dl (32-36); Mean Corpuscular Hemoglobin 21.1 pg (26-34); Mean Corpuscular Volume 75.9 fl (80-100); Mean Platelet Volume 10.9 fl (7.4-10.4); Monocytes Absolute Auto 0.5 K/mm3 (0.1-0.6); Monocytes Percent Auto 7.2 % (2.6-8.5); Neutrophils Absolute Auto 5.7 K/mm3 (1.3-6.7); Neutrophils Percent Auto 86.9 % (45.5-73.1); Platelet Count Result 186 k/mm3 (150-375); Red Blood Count 4.35 M/mm3 (4.6-6.20); Red Cell Distribution Width 18.1 % (11.5-14.5); White Blood Count 6.6 K/mm3 (4.5-10.0)
[2024-03-25 12:24] LABS: Alanine Aminotransferase 16 U/L (6-50); Albumin Level 3.7 g/dL (3.5-5.1); Alkaline Phosphatase 230 U/L (38-126); Anion Gap 6 mmol/L (4-12); Aspartate Amino Transferase 32 U/L (17-59); Bilirubin,Total 0.5 mg/dL (0.2-1.3); Blood Urea Nitrogen 39 mg/dL (9-20); Calcium 8.9 mg/dL (8.4-10.2); Carbon Dioxide 36 mmol/L (22-30); Chloride 89 mmol/L (98-107); Estimated CRCL calculation 46 ml/min; Estimated Glomerular Filt Rate 53; Glucose 199 mg/dL (65-110); Magnesium 2.2 mg/dL (1.6-2.3); Potassium 4.7 mmol/L (3.4-5.0); Sodium 131 mmol/L (137-145)
--- NOTE | 2024-03-25 12:27 | ED_ITS ---
HPI - Abdominal Pain General Chief Complaint: Abdominal Pain Stated Complaint: abd distended Time Seen by Provider: 03/25/24 11:38 History of Present Illness HPI narrative: Patient with history of cirrhosis was required paracentesis in the past presents here with increased abdominal distension/ascites. Would like to have the fluid drained. No fevers or chills, does have a recent fall and hip pain from that Related Data Home Medications Medication Instructions Recorded Confirmed potassium chloride 20 mEq 20 meq PO BID 04/11/22 07/06/23 tablet,extended release(part/cryst) furosemide 40 mg tablet 80 mg PO BID 08/25/22 07/06/23 insulin lispro protamine-lispro 5 unit subcut ACHS PRN 01/21/23 07/06/23 100 unit/mL (75-25) subcutaneous Hyperglycemia pen spironolactone 50 mg tablet 100 mg PO Q12H 04/13/23 07/06/23 (Aldactone) apixaban 5 mg tablet (Eliquis) 5 mg PO BID 05/09/23 07/06/23 Allergies Allergy/AdvReac Type Severity Reaction Status Date / Time ceftriaxone AdvReac Itching Verified 03/08/24 01:36 ciprofloxacin AdvReac Itching Verified 03/08/24 01:36 Review of Systems Review of Systems: All systems reviewed & are unremarkable except as noted in HPI and below PMFSH Past Medical History Medical History Arthritis C. difficile colitis Cerebrovascular accident (2004) Chronic anemia Chronic anticoagulation Cirrhosis of liver with ascites Closed fracture of left proximal humerus Diarrhea Diastolic congestive heart failure Esophageal varices Gastric ulcer Gastroesophageal reflux disease GI bleed Hyperglycemia Hypertension Kidney stone Leukemia In childhood. Pancreatic abnormality Pericardial effusion Noted on CT and echocardiogram in August 2020. No evidence of tamponade. Portal hypertensive gastropathy Noted on endoscopy on 03/23/[address] Duran. Prostate cancer Status post radiation seed implantation. Smoker Spontaneous bacterial peritonitis (04/2020) Tobacco dependence Type 2 diabetes mellitus Surgical History Surgical History History of appendectomy History of cholecystectomy History of cystoscopy History of inguinal hernia repair History of lithotripsy History of repair of right rotator cuff Family History Family History Mother Breast cancer Father Acute myocardial infarction Heart disease Hypertension Other Diabetes mellitus Maternal Uncle Sibling Family history of malignant neoplasm Social History Social History Social History: Surrogate decision maker: Myra Worley () or Marnie Washington (aunt). Code status: Full code Smoking packs per day: 0.15 Smoking cigarettes per day: 3.0 Years smoked: 20 Smoking pack-years: 3.00 Smoking status: Current every day smoker Tobacco type: cigarettes Second hand tobacco smoke exposure: No Additional smoking assessment comments: 3 cig per day Alcohol intake: current Drinks per week: 1 Alcohol use details: Former beer drinker. Substance use: never Substance use type: does not use Other substance usage details: DECEMBER 16 2022 LAST DRINK- BEER Do You Feel Safe in your Home?: Yes Lack of Transportation: No Lack of Food: Never True Current Housing: I Have Housing Concerned About Future Housing: No Difficulty Paying Gas/Electric Bills: No Difficulty Paying for Meds: No Currently Unemployed: No Education: Decline to Answer Difficulty w/ Childcare or Family Care: No Living arrangements: with family Additional living arrangements comments: Resides in [place] with his and son. Additional occupation/education comments: On disability. Spiritual care concerns: No Agree to blood products: Yes Exam Narrative: EXAMINATION OF ORGAN SYSTEMS/BODY AREAS: Constitutional: Vital signs per nursing GENERAL:[No acute distress, non-toxic appearing.] HEAD: Normal with no signs of head trauma. EYES: EOMI ENT: Hearing grossly intact LUNGS: Nonlabored breathing. HEART: [Regular rate and rhythm] ABD: [Soft], distended ascites, nontender to palpation EXT: Normal range of motion SKIN: Jaundiced NEURO: [Alert and oriented x 3. No gross focal sensory or strength deficits.] PSYCH: Normal affect Course Vital Signs Vital signs: Vital Signs Temperature 97.8 F 03/25/24 11:28 Pulse Rate 89 03/25/24 11:28 Respiratory Rate 18 03/25/24 11:28 Blood Pressure 102/59 L 03/25/24 11:28 Pulse Oximetry 96 03/25/24 11:28 Oxygen Delivery Room Air 03/25/24 11:28 Temperature 97.8 F 03/25/24 11:28 Pulse Rate 85 03/25/24 14:18 Respiratory Rate 18 03/25/24 14:18 Blood Pressure 92/64 L 03/25/24 13:31 Pulse Oximetry 94 03/25/24 14:18 Oxygen Delivery Room Air 03/25/24 11:28 MDM - Abdominal Pain MDM Narrative Medical decision making narrative: Patient presents here requesting paracentesis for his ascites, history of cirrhosis with concern for some fluid overload. Otherwise very well-appearing here, abdomen is soft, labs obtained are within acceptable/baseline limits for the patient, no signs of infection without leukocytosis and no fevers or chills. Dose of Lasix given here. Paracentesis is performed here. I have asked him to follow up with his primary care doctor to arrange for further paracentesis appointments if he starts having more ascites. Stable for discharge at this time. Vital signs within acceptable limits. Lab Data 03/25/24 12:00 03/25/24 12:00 Labs: Lab Results 03/25/24 03/25/24 03/25/24 Range/Units 12:00 12:38 12:51 WBC 6.6 (4.5-10.0) K/mm3 RBC 4.35 L (4.6-6.20) M/mm3 Hgb 9.2 L (14.0-18.0) g/dL Hct 33.0 L (42.0-52.0) % MCV 75.9 L (80-100) fl MCH 21.1 L (26-34) pg MCHC 27.9 L (32-36) g/dl RDW 18.1 H (11.5-14.5) % Plt Count 186 (150-375) k/mm3 MPV 10.9 H (7.4-10.4) fl Immature Gran % (Auto) 0.8 H (0-0.5) % Neut % (Auto) 86.9 H (45.5-73.1) % Lymph % (Auto) 4.1 L (18.3-44.2) % Jack % (Auto) 7.2 (2.6-8.5) % Eos % (Auto) 0.5 (0-4.4) % Baso % (Auto) 0.5 (0.2-1.2) % Lymph # (Auto) 0.27 L (0.9-3.2) K/mm3 Jack # (Auto) 0.5 (0.1-0.6) K/mm3 Eos # (Auto) 0.0 (0-0.3) K/mm3 Baso # (Auto) 0.0 (0.0-0.1) K/mm3 Abs Immat Gran (auto) 0.05 H (0.00-0.031) K/mm3 Absolute Neuts (auto) 5.7 (1.3-6.7) K/mm3 Absolute Nucleated RBC 0.000 (0.0-0.012) K/mm3 Nucleated RBC % 0.0 (0.0-0.2) % Platelet Estimate Adequate (Adequate) Hypochromasia 1+ Anisocytosis 1+ Schistocytes None seen PT 13.3 (11.1-14.7) Seconds INR 1.0 Sodium 131 L (137-145) mmol/L Potassium 4.7 (3.4-5.0) mmol/L Chloride 89 L (98-107) mmol/L Carbon Dioxide 36 H (22-30) mmol/L Anion Gap 6 (4-12) mmol/L BUN 39 H D (9-20) mg/dL Creatinine 1.40 H (0.7-1.3) mg/dL Estim Creat Clear Calc 46 ml/min Estimated GFR 53 L (59 - ) Glucose 199 H (65-110) mg/dL POC Capillary Glucose 175 H (65-105) mg/dl Calcium 8.9 (8.4-10.2) mg/dL Magnesium 2.2 (1.6-2.3) mg/dL Total Bilirubin 0.5 (0.2-1.3) mg/dL AST 32 (17-59) U/L ALT 16 (6-50) U/L Alkaline Phosphatase 230 H (38-126) U/L NT-Pro-B Natriuret Pep 566 H (19.9-100) pg/mL Total Protein 7.0 (6.3-8.2) g/dL Albumin 3.7 (3.5-5.1) g/dL Urine Color Yellow (Yellow) Urine Appearance Clear (Clear) Urine pH 7.0 (5.0-9.0) Ur Specific [place] 1.008 (1.001-1.035) Urine Protein Negative (Negative) mg/dL Urine Glucose (UA) Trace H (Negative) mg/dL Urine Ketones Negative (Negative) mg/dL Ur Blood (Man) Negative (Negative) Urine Nitrate Negative (Negative) Urine Bilirubin Negative (Negative) Urine Urobilinogen 0.2 (<2.0) mg/dL Leukocyte Esterase Rfl Negative (Negative) WES/UL Discharge Plan Discharge Clinical Impression: Abdominal distension Patient Disposition: NH [facility]/Asst Living Condition: Stable Instructions: Antibiotic Form, Paracentesis (DC) Additional Instructions: Please follow up with your doctor so that you can be on scheduled paracentesis; you can always return for any further issues. Prescriptions: No Action potassium chloride 20 mEq tablet,ER particles/crystals 20 meq PO BID midodrine 2.5 mg Tablet 5 mg PO TID 30 Days Qty: 180 0RF gabapentin 300 mg capsule 300 mg PO Q12H Qty: 60 0RF furosemide 40 mg tablet 80 mg PO BID insulin lispro protamin-lispro 100 unit/mL (75-25) insulin pen 5 unit SUBCUT ACHS PRN (Reason: Hyperglycemia) Rx Instructions: Only if over 200 spironolactone [Aldactone] 50 mg tablet 100 mg PO Q12H Eliquis 5 mg Tablet 5 mg PO BID hydrocodone-acetaminophen 7.5-300 mg tablet 1 tablet PO Q4-6H PRN (Reason: pain) Qty: 1 0RF oxycodone 20 mg tablet 20 mg PO Q4H PRN (Reason: pain) Qty: 1 0RF pantoprazole 40 mg tablet,delayed release (DR/EC) 40 mg PO Q12HR Qty: 60 2RF Follow-up/Referrals: Bisi,MD Matt [Primary Care Provider] - 2 Days
[2024-03-25 12:32] LABS: Anisocytosis 1+; Hypochromasia 1+; NT Pro B Type Natriuretic Pept 566 pg/mL (19.9-100); Platelet Estimate Adequate (Adequate); Schistocytes None Seen
[2024-03-25] MEDS: oxyCODONE/ACETAMINOPHEN (*CRX) 5-325 MG TABLET 1 TABLET PO (12:34)
[2024-03-25 12:41] LABS: Glucose Point of Care 175 mg/dl (65-105)
[2024-03-25 12:45] LABS: Prothrombin Time 13.3 Seconds (11.1-14.7)
[2024-03-25] MEDS: FUROSEMIDE INJ 40 MG/4 ML VIAL 20 MG IV PUSH (12:49)
[2024-03-25 12:58] LABS: Add Urine Microscopic? NO; Appearance Urine Clear (Clear); Bilirubin Urine Negative (Negative); Blood Urine Negative (Negative); Color Urine Yellow (Yellow); Glucose Urine UA Trace mg/dL (Negative); Ketones Urine Negative (Negative); Leukocyte Esterase Ur Negative LEU/UL (Negative); Nitrate Urine Negative (Negative); Protein Urine Negative (Negative); Specific Grav Ur 1.008 (1.001-1.035); Urobilinogen Urine 0.2 mg/dL (<2.0)
== END 2024-03-25 14:45 ==
PROVIDERS: Emergency Provider Emergency Medicine; PCP Hospitalist
DX: R14.0 Abdominal distension (gaseous) (principal); K74.60 Unspecified cirrhosis of liver; I50.30 Unspecified diastolic (congestive) heart failure; I11.0 Hypertensive heart disease with heart failure; E11.9 Type 2 diabetes mellitus without complications; D64.9 Anemia, unspecified; K21.9 Gastro-esophageal reflux disease without esophagitis; F17.210 Nicotine dependence, cigarettes, uncomplicated; Z85.46 Personal history of malignant neoplasm of prostate; Z85.6 Personal history of leukemia; Z86.73 Personal history of transient ischemic attack (TIA), and cerebral infarction without residual deficits; Z87.442 Personal history of urinary calculi; Z90.49 Acquired absence of other specified parts of digestive tract; Z79.4 Long term (current) use of insulin; Z79.01 Long term (current) use of anticoagulants
CPT/HCPCS: 36415; 49083; 80053; 81003; 82948; 83735; 83880; 85025; 85610; 96374; 99284; A9270; J1940

== ENCOUNTER 2024-04-01 20:15 | Emergency (ER) | payer MEDICARE, MEDICAID, SELFPAY ==
[2024-04-01 20:16] VITALS: BP 110/74; PULSE 88; RESP 14; TEMP 36.9; O2SAT 100
--- NOTE | 2024-04-01 20:49 | ED.ABDPAIN ---
HPI - Abdominal Pain General Chief Complaint: Abdominal Pain Stated Complaint: abd pain Time Seen by Provider: 04/01/24 20:26 Source: patient Mode of arrival: EMS Limitations: no limitations History of Present Illness HPI narrative: 54-year-old with known cirrhosis requiring very frequent paracentesis presenting for abdominal fullness and feeling like he needs paracentesis. Had done a week ago. Used to have to get it done every other day. No fevers or chills. Related Data Home Medications Medication Instructions Recorded Confirmed potassium chloride 20 mEq 20 meq PO BID 04/11/22 07/06/23 tablet,extended release(part/cryst) furosemide 40 mg tablet 80 mg PO BID 08/25/22 07/06/23 insulin lispro protamine-lispro 5 unit subcut ACHS PRN 01/21/23 07/06/23 100 unit/mL (75-25) subcutaneous Hyperglycemia pen spironolactone 50 mg tablet 100 mg PO Q12H 04/13/23 07/06/23 (Aldactone) apixaban 5 mg tablet (Eliquis) 5 mg PO BID 05/09/23 07/06/23 Allergies Allergy/AdvReac Type Severity Reaction Status Date / Time ceftriaxone AdvReac Itching Verified 04/01/24 21:11 ciprofloxacin AdvReac Itching Verified 04/01/24 21:11 Review of Systems Review of Systems: All systems reviewed & are unremarkable except as noted in HPI and below PMFSH Past Medical History Medical History Arthritis C. difficile colitis Cerebrovascular accident (2004) Chronic anemia Chronic anticoagulation Cirrhosis of liver with ascites Closed fracture of left proximal humerus Diarrhea Diastolic congestive heart failure Esophageal varices Gastric ulcer Gastroesophageal reflux disease GI bleed Hyperglycemia Hypertension Kidney stone Leukemia In childhood. Pancreatic abnormality Pericardial effusion Noted on CT and echocardiogram in August 2020. No evidence of tamponade. Portal hypertensive gastropathy Noted on endoscopy on 03/23/[address] Duran. Prostate cancer Status post radiation seed implantation. Smoker Spontaneous bacterial peritonitis (04/2020) Tobacco dependence Type 2 diabetes mellitus Surgical History Surgical History History of appendectomy History of cholecystectomy History of cystoscopy History of inguinal hernia repair History of lithotripsy History of repair of right rotator cuff Family History Family History Mother Breast cancer Father Acute myocardial infarction Heart disease Hypertension Other Diabetes mellitus Maternal Uncle Sibling Family history of malignant neoplasm Social History Social History Social History: Surrogate decision maker: Myra Worley () or Marnie Washington (aunt). Code status: Full code Smoking packs per day: 0.15 Smoking cigarettes per day: 3.0 Years smoked: 20 Smoking pack-years: 3.00 Smoking status: Current every day smoker Tobacco type: cigarettes Second hand tobacco smoke exposure: No Additional smoking assessment comments: 3 cig per day Alcohol intake: current Drinks per week: 1 Alcohol use details: Former beer drinker. Substance use: never Substance use type: does not use Other substance usage details: DECEMBER 16 2022 LAST DRINK- BEER Do You Feel Safe in your Home?: Yes Lack of Transportation: No Lack of Food: Never True Current Housing: I Have Housing Concerned About Future Housing: No Difficulty Paying Gas/Electric Bills: No Difficulty Paying for Meds: No Currently Unemployed: No Education: Decline to Answer Difficulty w/ Childcare or Family Care: No Living arrangements: with family Additional living arrangements comments: Resides in [place] with his and son. Additional occupation/education comments: On disability. Spiritual care concerns: No Agree to blood pro
[2024-04-01] MEDS: MORPHINE SULFATE (*CRX) 4 MG/ML INJ IV PUSH ×2 (21:11→22:36)
[2024-04-01 21:20] LABS: Basophils Percent Auto 0.4 % (0.2-1.2); Eosinophils Percent Auto 0.5 % (0-4.4); Hematocrit 29.8 % (42.0-52.0); Hemoglobin 8.6 g/dL (14.0-18.0); Immature Granulocyte Absolute 0.02 K/mm3 (0.00-0.031); Immature Granulocyte Percent A 0.4 % (0-0.5); Lymphocytes Absolute Auto 0.63 K/mm3 (0.9-3.2); Lymphocytes Percent Auto 11.2 % (18.3-44.2); Mean Corpuscular HGB Conc 28.9 g/dl (32-36); Mean Corpuscular Hemoglobin 21.5 pg (26-34); Mean Corpuscular Volume 74.5 fl (80-100); Mean Platelet Volume 10.2 fl (7.4-10.4); Monocytes Absolute Auto 0.7 K/mm3 (0.1-0.6); Neutrophils Absolute Auto 4.2 K/mm3 (1.3-6.7); Neutrophils Percent Auto 74.5 % (45.5-73.1); Platelet Count Result 160 k/mm3 (150-375); Red Cell Distribution Width 18.5 % (11.5-14.5); White Blood Count 5.6 K/mm3 (4.5-10.0)
[2024-04-01 21:31] LABS: Alanine Aminotransferase 13 U/L (6-50); Albumin Level 3.6 g/dL (3.5-5.1); Alkaline Phosphatase 157 U/L (38-126); Anion Gap 5 mmol/L (4-12); Aspartate Amino Transferase 27 U/L (17-59); Bilirubin,Total 0.4 mg/dL (0.2-1.3); Blood Urea Nitrogen 35 mg/dL (9-20); Calcium 8.9 mg/dL (8.4-10.2); Carbon Dioxide 32 mmol/L (22-30); Chloride 95 mmol/L (98-107); Estimated CRCL calculation 46 ml/min; Estimated Glomerular Filt Rate 53; Glucose 165 mg/dL (65-110); INR 1.1; Potassium 4.5 mmol/L (3.4-5.0); Prothrombin Time 14.3 Seconds (11.1-14.7); Sodium 132 mmol/L (137-145)
[2024-04-01 21:41] LABS: Platelet Estimate Adequate (Adequate); Schistocytes None Seen
[2024-04-01 21:42] LABS: Anisocytosis 2+; Hypochromasia 1+; Microcytosis 1+ (NORMAL)
[2024-04-01 23:32] VITALS: BP 100/71; PULSE 84; RESP 14; O2SAT 96
--- NOTE | 2024-04-01 23:32 | PC.NURSE ---
Paracentesis preformed by EDP Dr. Herbert. 3200mL of fluid was drained. Pt tolerated procedure well and had resolution of pain/distension.
== END 2024-04-01 23:43 ==
PROVIDERS: Emergency Provider Emergency Medicine; PCP Hospitalist
DX: K74.60 Unspecified cirrhosis of liver (principal); R18.8 Other ascites; I50.30 Unspecified diastolic (congestive) heart failure; I11.0 Hypertensive heart disease with heart failure; E11.9 Type 2 diabetes mellitus without complications; K21.9 Gastro-esophageal reflux disease without esophagitis; D64.9 Anemia, unspecified; F17.210 Nicotine dependence, cigarettes, uncomplicated; Z85.6 Personal history of leukemia; Z85.46 Personal history of malignant neoplasm of prostate; Z92.3 Personal history of irradiation; Z86.73 Personal history of transient ischemic attack (TIA), and cerebral infarction without residual deficits; Z90.49 Acquired absence of other specified parts of digestive tract; Z79.01 Long term (current) use of anticoagulants; Z79.4 Long term (current) use of insulin; Z79.899 Other long term (current) drug therapy
CPT/HCPCS: 36415; 49082; 80053; 85025; 85610; 85730; 96374; 96376; 99284; J2004; J2270

== ENCOUNTER 2024-04-14 10:16 | Outpatient (CLI) | payer MEDICARE, MEDICAID, SELFPAY ==
--- NOTE | ~2024-04-14 | US_ITS ---
EXAMINATION: US paracentesis abd w/image DATE: 04/14/2024 11:28 INDICATION: Cirrhosis of the liver. Ascites. TECHNIQUE: The procedure and its risks and benefits were discussed with the patient. Potential risks discussed included bleeding and infection. The skin was prepped and draped in sterile fashion. 1% lid ocaine was used for local anesthesia. Under ultrasound guidance, a 5 Fr catheter with trochar was adv anced into the ascites in the right lower quadrant. Fluid was aspirated into vacuum bottles. The cath eter was removed, and a dressing was applied. There were no immediate complications. FINDINGS: Ultrasound images demonstrate ascites and the catheter within the fluid. IMPRESSION: 1. Successful ultrasound-guided paracentesis yielding 3100 mL of yellow fluid. Reviewed, dictated and finalized at location A.
== END 2024-04-14 10:17 | disposition home or self-care (01) ==
PROVIDERS: PCP Hospitalist
DX: R18.8 Other ascites (principal)
CPT/HCPCS: 49083

== ENCOUNTER 2024-04-27 10:13 | Outpatient (CLI) | payer MEDICARE, MEDICAID, SELFPAY ==
--- NOTE | ~2024-04-27 | US_ITS ---
EXAMINATION: US paracentesis abd w/image DATE: 04/27/2024 10:57 INDICATION: Ascites. Cirrhosis of liver. TECHNIQUE: The procedure and its risks, benefits, and alternatives were discussed with the patient. P otential risks discussed included bleeding and infection. The skin was prepped and draped in sterile fashion. 1% lidocaine was used for local anesthesia. Under ultrasound guidance, a 5 Fr catheter with trochar was advanced into the ascites in the right lower quadrant. Fluid was aspirated. The catheter was removed, and a dressing was applied. There were no immediate complications. FINDINGS: Ultrasound images demonstrate ascites and the catheter within the fluid. IMPRESSION: 1. Successful ultrasound-guided paracentesis yielding 1500 mL of yellow fluid. Reviewed, dictated and finalized at location A. F DRIER
== END 2024-04-27 10:14 | disposition home or self-care (01) ==
PROVIDERS: PCP Hospitalist
DX: R18.8 Other ascites (principal); K74.69 Other cirrhosis of liver
CPT/HCPCS: 49083

== ENCOUNTER 2024-05-03 09:15 | Outpatient (RCR) | payer MEDICARE, MEDICAID, SELFPAY ==
--- NOTE | ~2024-05-03 | US_ITS ---
ULTRASOUND-GUIDED PARACENTESIS INDICATION: OTHER ASCITES;CIRRHOSIS OF LIVER . COMPARISON: 04/27/2024 TECHNIQUE/FINDINGS: All risks, benefits, and alternatives of this procedure were thoroughly discussed with the patient an d all questions were answered. The time out procedure was performed and the patient was properly mat ntified. Witnessed written and verbal informed consent was then obtained from the patient. The sonographic ev aluation of the abdomen demonstrated a large amount of anechoic ascitic fluid in the right upper quad rant of the abdomen which was targeted for paracentesis. Following local analgesia with 1% lidocaine , a centesis catheter was inserted into the right side of the peritoneal cavity, and the needle was r emoved. 10 cc of slightly cloudy yellow fluid was collected for analysis. A total of 1350 cc of clear yellow fluid was drained. The catheter removed and a sterile dressing applied. The patient tolerated the procedure and was discharged from the radiology Department after appropriate observation, as per protocol. Impression: 1. Technically successful ultrasound guided right upper quadrant paracentesis yielding 1350 cc of sl ightly cloudy yellow fluid. 2. No immediate complications. Reviewed, dictated and finalized at location A. ICER FINISHER Impression: 1. Technically successful ultrasound guided right upper quadrant paracentesis yielding 1350 cc of slightly cloudy yellow fluid. 2. No immediate complications.
--- NOTE | ~2024-05-03 | US_ITS ---
EXAMINATION: US paracentesis abd w/image DATE: 04/19/2024 11:20 INDICATION: Ascites. TECHNIQUE: The procedure and its risks, benefits, and alternatives were discussed with the patient. P otential risks discussed included bleeding and infection. The skin was prepped and draped in sterile fashion. 1% lidocaine was used for local anesthesia. Under ultrasound guidance, a 5 Fr catheter with trochar was advanced into the ascites in the right lower quadrant. Fluid was aspirated. The catheter was removed, and a dressing was applied. There were no immediate complications. FINDINGS: Ultrasound images demonstrate ascites and the catheter within the fluid. IMPRESSION: 1. Successful ultrasound-guided paracentesis yielding 2950 mL of gio-colored fluid. Reviewed, dictated and finalized at location A. WORKER
[2024-05-03 11:55] LABS: Appearance Peritoneal Fluid Clear (Clear); Color Peritoneal Fluid Yellow (Colorless); Source Peritoneal Fluid Peritoneal Fluid
[2024-05-03 11:56] LABS: Lymphocytes Peritoneal Fluid 25 %; Macrophages Peritoneal Fluid 45 %; Monocytes Peritoneal Fluid 28 %; Neutrophils Peritoneal Fluid 2 % (0-25); Nucleated Cells Peritoneal Flu 247 /uL (0-500); RBC Peritoneal Fluid < 2000 /uL (0-10000)
== END 2024-07-18 23:59 | disposition home or self-care (01) ==
LOC: ANHIMG 09:15
PROVIDERS: Radiology Diagnostic Radiology; PCP Hospitalist
DX: R18.8 Other ascites (principal); K74.69 Other cirrhosis of liver
CPT/HCPCS: 49083; 89051

== ENCOUNTER 2024-05-10 07:49 | Outpatient (RCR) | payer MEDICARE, MEDICAID, SELFPAY ==
--- NOTE | ~2024-05-10 | US_ITS ---
EXAMINATION: US abdomen limited DATE: 05/10/2024 11:09 INDICATION: Ascites TECHNIQUE: Grayscale ultrasound images of the left and right lower quadrants of the abdomen were obta ined during real-time survey of the abdomen and pelvis to assess for fluid pockets for planned parace ntesis. COMPARISON: None FINDINGS/IMPRESSION: There are a few small pockets of ascites measuring up to 3 x 3.5 cm scattered throughout the multiple gas and fluid-filled loops of bowel. Given the relative paucity of ascites and following discussion with the patient it was elected to defer the planned paracentesis at this time. Reviewed, dictated and finalized at location A. E ENGINEER
[2024-05-10 08:44] LABS: Immature Platelet Fraction Pct 9.2 % (0.9-11.2); Platelet Count Result 92 k/mm3 (150-375)
[2024-05-10 09:02] LABS: Prothrombin Time 13.4 Seconds (11.1-14.7)
== END 2024-08-08 23:59 | disposition home or self-care (01) ==
LOC: ANHIMG 07:49
PROVIDERS: Radiology Diagnostic Radiology; PCP Hospitalist
DX: R18.8 Other ascites (principal)
CPT/HCPCS: 36415; 76705; 85049; 85055; 85610

== ENCOUNTER 2024-05-17 09:07 | Outpatient (CLI) | payer MEDICARE, MEDICAID, SELFPAY ==
--- NOTE | ~2024-05-17 | US_ITS ---
EXAMINATION: US paracentesis abd w/image DATE: 05/17/2024 10:39 INDICATION: Ascites. TECHNIQUE: The skin was prepped and draped in sterile fashion. 1% lidocaine was used for local anesth esia. Under ultrasound guidance, a 5 Fr catheter with trochar was advanced into the ascites in the le ft lower quadrant. Fluid was aspirated. The catheter was removed, and a dressing was applied. There w ere no immediate complications. FINDINGS: Ultrasound images demonstrate ascites and the catheter within the fluid. IMPRESSION: 1. Successful ultrasound-guided paracentesis yielding 800 mL of yellow fluid. Reviewed, dictated and finalized at location A. DING MACHINE OPERATOR
== END 2024-05-17 09:08 | disposition home or self-care (01) ==
PROVIDERS: PCP Hospitalist
DX: R18.8 Other ascites (principal)
CPT/HCPCS: 49083

== ENCOUNTER 2024-05-18 11:38 | Emergency (ER) | payer MEDICARE, MEDICAID, SELFPAY ==
[2024-05-18] VITALS (9 sets, daily range): BP systolic 93–109; BP diastolic 71–91; PULSE 83–93; RESP 14–17; TEMP 36.4; O2SAT 93–100
--- NOTE | ~2024-05-18 | XR_ITS ---
EXAMINATION: XR chest 2V DATE: 05/18/2024 12:10 INDICATION: Chest pain. TECHNIQUE: Frontal and lateral views of the chest were obtained on 3 radiographs. COMPARISON: Chest 2 views 02/22/2023 FINDINGS: There is no pneumonia, pleural effusion, or pneumothorax. The heart size is normal. There a re old healed right rib fractures. There is chronic height loss of multiple vertebral bodies. Surgica l clips in the right upper quadrant are likely from cholecystectomy. IMPRESSION: 1. No acute cardiopulmonary disease. Reviewed, dictated and finalized at location A. [employer]
--- NOTE | 2024-05-18 11:48 | ECG_ITS ---
Test Date: 2024-05-18 11:51:28 Measurements Intervals [place] Rate: 88 P: 27 UT: 158 QRS: 9 QRSD: 89 T: 30 QT: 376 QTc: 456 Interpretive Statements SINUS RHYTHM WITH OCCASIONAL SUPRAVENTRICULAR PREMATURE COMPLEXES SEPTAL MYOCARDIAL INFARCTION , OF INDETERMINATE AGE [40+ ms Q WAVE IN V1/V2] LOW VOLTAGE ABNORMAL ECG Electronically Signed On 05-18-2024 15:01:51 PUBLIC HEALTH EDUCATOR by Dennis Patino M.D.
[2024-05-18 12:03] LABS: Basophils Percent Auto 0.6 % (0.2-1.2); Eosinophils Absolute Auto 0.1 K/mm3 (0-0.3); Eosinophils Percent Auto 1.9 % (0-4.4); Hematocrit 40.7 % (42.0-52.0); Hemoglobin 12.4 g/dL (14.0-18.0); Immature Granulocyte Absolute 0.01 K/mm3 (0.00-0.031); Immature Granulocyte Percent A 0.2 % (0-0.5); Lymphocytes Absolute Auto 0.58 K/mm3 (0.9-3.2); Lymphocytes Percent Auto 11.1 % (18.3-44.2); Mean Corpuscular HGB Conc 30.5 g/dl (32-36); Mean Corpuscular Hemoglobin 26.5 pg (26-34); Monocytes Absolute Auto 0.6 K/mm3 (0.1-0.6); Monocytes Percent Auto 11.7 % (2.6-8.5); Neutrophils Absolute Auto 3.9 K/mm3 (1.3-6.7); Neutrophils Percent Auto 74.5 % (45.5-73.1); Platelet Count Result 83 k/mm3 (150-375); Red Blood Count 4.68 M/mm3 (4.6-6.20); Red Cell Distribution Width 23.5 % (11.5-14.5); White Blood Count 5.2 K/mm3 (4.5-10.0)
[2024-05-18 12:17] LABS: Alanine Aminotransferase 23 U/L (6-50); Albumin Level 3.7 g/dL (3.5-5.1); Alkaline Phosphatase 173 U/L (38-126); Anion Gap 3 mmol/L (4-12); Aspartate Amino Transferase 53 U/L (17-59); Bilirubin,Total 0.5 mg/dL (0.2-1.3); Blood Urea Nitrogen 41 mg/dL (9-20); Calcium 8.8 mg/dL (8.4-10.2); Carbon Dioxide 34 mmol/L (22-30); Chloride 95 mmol/L (98-107); Estimated CRCL calculation 51 ml/min; Estimated Glomerular Filt Rate 58; Glucose 154 mg/dL (65-110); Lipase 51 U/L (23-300); Potassium 4.1 mmol/L (3.4-5.0); Sodium 132 mmol/L (137-145)
[2024-05-18 12:22] LABS: Prothrombin Time 13.6 Seconds (11.1-14.7)
--- NOTE | 2024-05-18 12:22 | ED.CHESTPAIN ---
HPI - Chest Pain General Chief Complaint: Chest Pain Stated Complaint: CP Time Seen by Provider: 05/18/24 11:56 Source: patient Mode of arrival: EMS Limitations: no limitations History of Present Illness HPI narrative: This is a 54-year-old male with history of cirrhosis, well known to me who is brought in by EMS from his [facility] for chest pain. The patient states he was rest when he felt 6/10 sharp left-sided chest pain that radiates to the left shoulder blade. He states this is associated with some nausea and brisk cold sweats but after approximately 15 minutes has completely resolved. He has no other complaints at this time. Related Data Home Medications Medication Instructions Recorded Confirmed potassium chloride 20 mEq 20 meq PO BID 04/11/22 07/06/23 tablet,extended release(part/cryst) furosemide 40 mg tablet 80 mg PO BID 08/25/22 07/06/23 insulin lispro protamine-lispro 5 unit subcut ACHS PRN 01/21/23 07/06/23 100 unit/mL (75-25) subcutaneous Hyperglycemia pen spironolactone 50 mg tablet 100 mg PO Q12H 04/13/23 07/06/23 (Aldactone) apixaban 5 mg tablet (Eliquis) 5 mg PO BID 05/09/23 07/06/23 Allergies Allergy/AdvReac Type Severity Reaction Status Date / Time ceftriaxone AdvReac Itching Verified 04/01/24 21:11 ciprofloxacin AdvReac Itching Verified 04/01/24 21:11 Review of Systems Review of Systems: All systems reviewed & are unremarkable except as noted in HPI and below PMFSH Past Medical History Medical History Arthritis C. difficile colitis Cerebrovascular accident (2004) Chronic anemia Chronic anticoagulation Cirrhosis of liver with ascites Closed fracture of left proximal humerus Diarrhea Diastolic congestive heart failure Esophageal varices Gastric ulcer Gastroesophageal reflux disease GI bleed Hyperglycemia Hypertension Kidney stone Leukemia In childhood. Pancreatic abnormality Pericardial effusion Noted on CT and echocardiogram in August 2020. No evidence of tamponade. Portal hypertensive gastropathy Noted on endoscopy on 03/23/[address] Duran. Prostate cancer Status post radiation seed implantation. Smoker Spontaneous bacterial peritonitis (04/2020) Tobacco dependence Type 2 diabetes mellitus Surgical History Surgical History History of appendectomy History of cholecystectomy History of cystoscopy History of inguinal hernia repair History of lithotripsy History of repair of right rotator cuff Family History Family History Mother Breast cancer Father Acute myocardial infarction Heart disease Hypertension Other Diabetes mellitus Maternal Uncle Sibling Family history of malignant neoplasm Social History Social History Social History: Surrogate decision maker: Myra Worley () or Marnie Washington (aunt). Code status: Full code Smoking packs per day: 0.15 Smoking cigarettes per day: 3.0 Years smoked: 20 Smoking pack-years: 3.00 Smoking status: Current every day smoker Tobacco type: cigarettes Second hand tobacco smoke exposure: No Additional smoking assessment comments: 3 cig per day Alcohol intake: current Drinks per week: 1 Alcohol use details: Former beer drinker. Substance use: never Substance use type: does not use Other substance usage details: DECEMBER 16 2022 LAST DRINK- BEER Do You Feel Safe in your Home?: Yes Lack of Transportation: No Lack of Food: Never True Current Housing: I Have Housing Concerned About Future Housing: No Difficulty Paying Gas/Electric Bills: No Difficulty Paying for Meds: No Currently Unemployed: No Education: Decline to Answer Difficulty w/ Childcare or Family Care: No Living arrangements: with family Additional living arrangements comments: Resides in [place] with his and son. Additional occupation/education comments: On disability. Spiritual care concerns: No Agree to blood products: Yes Exam Narrative: GENERAL: Well-developed, well-nourished, and in no acute distress. mildly jaundiced HEAD: Normocephalic, atraumatic. EYES: PERRLA and EOMI. CHEST: Clear to auscultation. No respiratory distress. No wheezes rales or rhonchi HEART: Regular rate and rhythm. No murmur heard. Normal peripheral pulses. ABDOMEN: Soft, nontender, distended, normal active bowel sounds. EXTREMITIES: Normal range of motion. No edema. SKIN: Warm, dry, no rash. NEURO: Alert and oriented x3. No focal deficit. Moving all 4 limbs spontaneously PSYCH: Normal mood and affect. Course Course Emergency Course: 13:10 - Chemistries demonstrate mild hyponatremia with sodium of 132 mildly elevated bicarb of 34 but is otherwise unremarkable. Initial troponin negative. EKG not concerning for ischemia. Heart score 4. Chest x-ray not concerning for acute cardiopulmonary process. The patient states he does to stay and politely declines repeat troponin level. Will discharge AMA. Vital Signs Vital signs: Vital Signs Temperature 97.6 F 05/18/24 11:40 Pulse Rate 90 05/18/24 11:40 Respiratory Rate 15 05/18/24 11:40 Blood Pressure 101/78 05/18/24 11:40 Pulse Oximetry 100 05/18/24 11:40 Oxygen Delivery Room Air 05/18/24 11:40 Temperature 97.6 F 05/18/24 11:40 Pulse Rate 85 05/18/24 13:16 Respiratory Rate 16 05/18/24 13:16 Blood Pressure 109/91 H 05/18/24 13:16 Pulse Oximetry 98 05/18/24 13:16 Oxygen Delivery Room Air 05/18/24 11:57 MDM - Chest Pain MDM Narrative Medical decision making narrative: plan: Labs, imaging, EKG, troponin, pain control, reassess Differential Diagnosis Differential diagnosis: Likely other ( ACS, pneumothorax, costochondritis, pancreatitis, metabolic abnormality, pleurisy, other) Lab Data 05/18/24 11:51 05/18/24 11:51 Labs: Lab Results 05/18/24 Range/Units 11:51 WBC 5.2 (4.5-10.0) K/mm3 RBC 4.68 (4.6-6.20) M/mm3 Hgb 12.4 L D (14.0-18.0) g/dL Hct 40.7 L (42.0-52.0) % MCV 87.0 (80-100) fl MCH 26.5 (26-34) pg MCHC 30.5 L (32-36) g/dl RDW 23.5 H (11.5-14.5) % Plt Count 83 L (150-375) k/mm3 MPV TNP Immature Gran % (Auto) 0.2 (0-0.5) % Neut % (Auto) 74.5 H (45.5-73.1) % Lymph % (Auto) 11.1 L (18.3-44.2) % [place] % (Auto) 11.7 H (2.6-8.5) % Eos % (Auto) 1.9 (0-4.4) % Baso % (Auto) 0.6 (0.2-1.2) % Lymph # (Auto) 0.58 L (0.9-3.2) K/mm3 [place] # (Auto) 0.6 (0.1-0.6) K/mm3 Eos # (Auto) 0.1 (0-0.3) K/mm3 Baso # (Auto) 0.0 (0.0-0.1) K/mm3 Abs Immat Gran (auto) 0.01 (0.00-0.031) K/mm3 Absolute Neuts (auto) 3.9 (1.3-6.7) K/mm3 Absolute Nucleated RBC 0.000 (0.0-0.012) K/mm3 Nucleated RBC % 0.0 (0.0-0.2) % Platelet Estimate Decreased (Adequate) % Immature Plt Fraction 9.0 (0.9-11.2) % Hypochromasia 1+ Anisocytosis 1+ Microcytosis 1+ (NORMAL) Schistocytes None seen PT 13.6 (11.1-14.7) Seconds INR 1.0 APTT 29.2 (22.3-36.8) Seconds Sodium 132 L (137-145) mmol/L Potassium 4.1 (3.4-5.0) mmol/L Chloride 95 L (98-107) mmol/L Carbon Dioxide 34 H (22-30) mmol/L Anion Gap 3 L (4-12) mmol/L BUN 41 H (9-20) mg/dL Creatinine 1.30 (0.7-1.3) mg/dL Estim Creat Clear Calc 51 ml/min Estimated GFR 58 L (59 - ) Glucose 154 H (65-110) mg/dL Calcium 8.8 (8.4-10.2) mg/dL Total Bilirubin 0.5 (0.2-1.3) mg/dL AST 53 (17-59) U/L ALT 23 (6-50) U/L Alkaline Phosphatase 173 H (38-126) U/L Troponin I < 0.012 (0.000-0.034) ng/mL Total Protein 7.0 (6.3-8.2) g/dL Albumin 3.7 (3.5-5.1) g/dL Lipase 51 (23-300) U/L ECG Data EKG #1: Attestation: I personally reviewed and interpreted this ECG as follows: ECG completion date: 05/18/24 ECG completion time: 11:51 Prior ECG tracings: not available for review Interpretation: sinus rhythm, rate 88, normal axis, no ST segment elevations or T-wave inversions concerning for ischemia, normal intervals with QTC of 456. Discharge Plan Discharge Clinical Impression: Chest pain Qualifiers: Chest pain type: unspecified Qualified Code(s): R07.9 - Chest pain, unspecified Patient Disposition: Left Against Medical Advice Condition: Stable Instructions: Chest Pain (ED) Additional Instructions: You were seen in the emergency department. urine show lab test was not concerning for injury to the heart. However without a repeat lab test I cannot fully rule out an ongoing injury to the heart. I recommend following up with your primary care doctor and a anesthesia director. If you develop New or worsening chest pain, shortness of breath, loss of consciousness, or if you have other emergent concerns for life, limb, or eyesight, return to the emergency department. Patient Language: Irish Prescriptions: No Action potassium chloride 20 mEq tablet,ER particles/crystals 20 meq PO BID midodrine 2.5 mg Tablet 5 mg PO TID 30 Days Qty: 180 0RF gabapentin 300 mg capsule 300 mg PO Q12H Qty: 60 0RF furosemide 40 mg tablet 80 mg PO BID insulin lispro protamin-lispro 100 unit/mL (75-25) insulin pen 5 unit SUBCUT ACHS PRN (Reason: Hyperglycemia) Rx Instructions: Only if over 200 spironolactone [Aldactone] 50 mg tablet 100 mg PO Q12H Eliquis 5 mg Tablet 5 mg PO BID hydrocodone-acetaminophen 7.5-300 mg tablet 1 tablet PO Q4-6H PRN (Reason: pain) Qty: 1 0RF oxycodone 20 mg tablet 20 mg PO Q4H PRN (Reason: pain) Qty: 1 0RF pantoprazole 40 mg tablet,delayed release (DR/EC) 40 mg PO Q12HR Qty: 60 2RF Follow-up/Referrals: Bisi,MD Matt [Primary Care Provider] - 2 Weeks Time of Disposition: 13:14
[2024-05-18 12:23] LABS: Partial Thromboplastin Time 29.2 Seconds (22.3-36.8)
[2024-05-18 12:26] LABS: Anisocytosis 1+; Hypochromasia 1+; Microcytosis 1+ (NORMAL); Platelet Estimate Decreased (Adequate); Schistocytes None Seen
[2024-05-18 12:28] LABS: Troponin I < 0.012 ng/mL (0.000-0.034)
== END 2024-05-18 14:42 | disposition left against medical advice (07) ==
PROVIDERS: Emergency Medicine; Emergency Provider Preventive Medicine Aerospace Medicine; PCP Hospitalist
DX: R07.9 Chest pain, unspecified (principal); I50.30 Unspecified diastolic (congestive) heart failure; I11.0 Hypertensive heart disease with heart failure; E11.9 Type 2 diabetes mellitus without complications; K74.60 Unspecified cirrhosis of liver; D64.9 Anemia, unspecified; M19.90 Unspecified osteoarthritis, unspecified site; K21.9 Gastro-esophageal reflux disease without esophagitis; F17.210 Nicotine dependence, cigarettes, uncomplicated; Z92.3 Personal history of irradiation; Z86.73 Personal history of transient ischemic attack (TIA), and cerebral infarction without residual deficits; Z85.46 Personal history of malignant neoplasm of prostate; Z85.6 Personal history of leukemia; Z87.442 Personal history of urinary calculi; Z90.49 Acquired absence of other specified parts of digestive tract; Z79.4 Long term (current) use of insulin; Z79.01 Long term (current) use of anticoagulants; R94.31 Abnormal electrocardiogram [ECG] [EKG]
CPT/HCPCS: 36415; 71046; 80053; 83690; 84484; 85025; 85055; 85610; 85730; 93005; 99284

== ENCOUNTER 2024-05-19 15:16 | Inpatient (IN) | payer MEDICARE, MEDICAID, SELFPAY ==
--- NOTE | ~2024-05-19 | US_ITS ---
EXAMINATION: US paracentesis abd w/image DATE: 05/20/2024 17:30 INDICATION: Ascites. TECHNIQUE: The procedure and its risks, benefits, and alternatives were discussed with the patient. P otential risks discussed included bleeding and infection. The skin was prepped and draped in sterile fashion. 1% lidocaine was used for local anesthesia. Under ultrasound guidance, a 5 Fr catheter with trochar was advanced into the ascites in the left lower quadrant. Fluid was aspirated. The catheter w as removed, and a dressing was applied. There were no immediate complications. FINDINGS: Ultrasound images demonstrate ascites and the catheter within the fluid. IMPRESSION: 1. Successful ultrasound-guided paracentesis yielding 350 mL of yellow fluid. Reviewed, dictated and finalized at location A. [employer]
--- NOTE | ~2024-05-19 | XR_ITS ---
EXAMINATION: XR chest 2V DATE: 05/19/2024 17:09 INDICATION: Hematemesis. TECHNIQUE: Frontal and lateral views of the chest were obtained. COMPARISON: Chest 2 views 05/18/2024 FINDINGS: There is no pneumonia, pleural effusion, or pneumothorax. The heart size is normal. There a re old healed bilateral rib fractures. Surgical clips in the right upper quadrant are likely from cho lecystectomy. There is chronic height loss of multiple vertebral bodies. IMPRESSION: 1. No acute cardiopulmonary disease. Reviewed, dictated and finalized at location A. [employer]
--- NOTE | ~2024-05-19 | CT_ITS ---
CT abdomen pelvis w con Ordering provider: Cinthia Aleman PA-C History: 54 years Male with . abd pain/bloating, vomiting blood, . Comparison: May 16, 2023 Technique: CT abdomen and pelvis with IV and without oral contrast. Automated exposure control and it erative reconstruction technique were employed. The dose-length product was 339.34 mGy-cm. 100 mL Omnipaque 350 was given IV. Findings: VISUALIZED LOWER CHEST: Minimal dependent atelectatic changes. 3 mm nodule in the right middle lobe. 1 year follow-up advised. UPPER ABDOMINAL ORGANS: Liver: Slightly lobulated outline of the liver suggestive of cirrhosis. Clinical correlation advised. Minimal fluid is seen around the liver. Gallbladder: Status post cholecystectomy. Spleen: Borderline splenomegaly Minimal fluid is seen around the spleen. Stomach/duodenum: Small sliding hiatus hernia. Hyperdensities in the stomach most likely related to m edication. Clinical correlation advised. Thickening in the area of the duodenal bulb is noted. Gastro scopy is advised. Pancreas: Atrophic Adrenals: Left adrenal adenoma measuring 1.8 cm. Kidneys: Normal. PELVIC ORGANS: The bladder is normal. BOWEL AND MESENTERY: Colon: No evidence of diverticulitis.. . Fecal material is seen in the colon.Status post appendectomy . Small Bowel: Thickened wall of the bowel loops in the left side of the abdomen is noted. No obstructi on. Peritoneum/mesentery: No free air. Free fluid is seen in the pelvis. . No mesenteric lymphadenopathy. RETROPERITONEUM: Mild atheromatous disease of the abdominal aorta. No retroperitoneal lymphadenopat hy. MUSCULOSKELETAL: Superficial soft tissues: Soft tissue densities are seen around the umbilicus. Clinical evaluation ad vised. The superficial soft tissues are normal. Bones: Age appropriate degenerative changes of the spine. Right sacroiliitis. Healing fractures in the inferior pubic rami. Healing fracture in the anterior co lumn of the acetabulum. Cystic area seen anteriorly in the left acetabular roof. Chronic loss of volume of T11 and T12 is noted unchanged. IMPRESSION: 1. Liver cirrhosis. 2. Borderline splenomegaly. 3. Ascites 4. Thickening of the wall of the small bowel loops in the left side with slight thickening of the wa ll of the transverse colon. Enteritis and possibly colitis is highly suggestive. 5. Healing Fractures in the superior and inferior pubic rami. 6. Left adrenal adenoma unchanged. 7. Thickening in the area of the duodenal bulb. Gastroscopy is advised. Reviewed, dictated and finalized at location A. [employer] IMPRESSION: 1. Liver cirrhosis. 2. Borderline splenomegaly. 3. Ascites 4. Thickening of the wall of the small bowel loops in the left side with sligh t thickening of the wall of the transverse colon. Enteritis and possibly coliti s is highly suggestive. 5. Healing Fractures in the superior and inferior pubic rami. 6. Left adrenal adenoma unchanged. 7. Thickening in the area of the duodenal bulb. Gastroscopy is advised.
[2024-05-19 16:04] VITALS: BP 99/62; PULSE 118; RESP 18; TEMP 36.6; O2SAT 98
--- NOTE | 2024-05-19 16:13 | ED.ABDPAIN ---
HPI - Abdominal Pain General Chief Complaint: Abdominal Pain <NEO Elder Last Filed: 05/19/24 16:48> Stated Complaint: abdominal pain, vomiting with dark red blood <NEO Elder Last Filed: 05/19/24 16:48> Time Seen by Provider: 05/19/24 16:13 <NEO Elder Last Filed: 05/19/24 16:48> Focused HPI: Patient is a 54 y/o male, cirrhosis of the liver, CHF, hypertension, type 2 diabetes, GERD, esophageal varices, who presents to the ED with c/o hematemesis. Patient reports he developed nausea with vomiting approx 2 hours ago. States his emesis consisted of straight bright red blood. Has had 2 episodes of hematemesis. Has history of known varices, states this feels similar. Reports having diffuse abdominal pain and bloating. Last paracentesis was 2 days ago. Also reports maroon-colored melanotic stool. Denies fevers. He is not on any anticoagulation. GENERAL: Chronically ill-appearing, frail, jaundiced, and in no acute distress. HEAD: Normocephalic, atraumatic. CHEST: Clear to auscultation. ?No respiratory distress. HEART: Regular rate and rhythm.? ABD: Mild distension of abdomen with diffuse tenderness. NEURO: ?Alert and oriented x3. Patient screened in triage and initial orders placed.? ?Additional care and disposition to be based upon?diagnostic testing and treatment. <NEO Elder Last Filed: 05/19/24 16:48> Focused HPI: Patient is a 54 y/o male, cirrhosis of the liver, CHF, hypertension, type 2 diabetes, GERD, esophageal varices, who presents to the ED with c/o hematemesis. Patient reports he developed nausea with vomiting approx 2 hours ago. States his emesis consisted of straight bright red blood. Has had 2 episodes of hematemesis. Has history of known varices, states this feels similar. Reports having diffuse abdominal pain and bloating. Last paracentesis was 2 days ago. Also reports maroon-colored melanotic stool. Denies fevers. He is not on any anticoagulation. GENERAL: Chronically ill-appearing, frail, jaundiced, and in no acute distress. HEAD: Normocephalic, atraumatic. CHEST: Clear to auscultation. ?No respiratory distress. HEART: Regular rate and rhythm.? ABD: Mild distension of abdomen with diffuse tenderness. NEURO: ?Alert and oriented x3. Patient screened in triage and initial orders placed.? ?Additional care and disposition to be based upon?diagnostic testing and treatment. <Xu Rosa MD - Last Filed: 05/19/24 22:14> Source: patient and old records reviewed <Cinthia Aleman PA-C - Last Filed: 05/19/24 16:48> Mode of arrival: EMS <NEO Elder Last Filed: 05/19/24 16:48> Limitations: no limitations <NEO Elder Last Filed: 05/19/24 16:48> History of Present Illness HPI narrative: patient is a 54-year-old gentleman who presents emergency department with chief complaint of vomiting blood and maroon colored stool patient reports he has history of esophageal varix reports that he has been scoped before in the past patient reports that he has noticed that his abdomen has become progressively more distended and reported that he started having vomiting this evening that had bright red blood in it and also had maroon-colored stools. <Xu Rosa MD - Last Filed: 05/19/24 22:14> Related Data Home Medications: Home Medications Medication Instructions Recorded Confirmed potassium chloride 20 mEq 20 meq PO BID 04/11/22 07/06/23 tablet,extended release(part/cryst) furosemide 40 mg tablet 80 mg PO BID 08/25/22 07/06/23 insulin lispro protamine-lispro 5 unit subcut ACHS PRN 01/21/23 07/06/23 100 unit/mL (75-25) subcutaneous Hyperglycemia pen spironolactone 50 mg tablet 100 mg PO Q12H 04/13/23 07/06/23 (Aldactone) apixaban 5 mg tablet (Eliquis) 5 mg PO BID 05/09/23 07/06/23 <NEO Elder Last Filed: 05/19/24 16:48> Allergies/Adverse Reactions: Allergies Allergy/AdvReac Type Severity Reaction Status Date / Time ceftriaxone AdvReac Itching Verified 04/01/24 21:11 ciprofloxacin AdvReac Itching Verified 04/01/24 21:11 <Cinthia Aleman PA-C - Last Filed: 05/19/24 16:48> Review of Systems Review of Systems: A 10 system review of systems was completed on the patient and is negative except for what is stated in the HPI. Nursing and ancillary documentation was reviewed. <Xu Rosa MD - Last Filed: 05/19/24 22:14> [facility] Past Medical History Medical History: Medical History Arthritis C. difficile colitis Cerebrovascular accident (2004) Chronic anemia Chronic anticoagulation Cirrhosis of liver with ascites Closed fracture of left proximal humerus Diarrhea Diastolic congestive heart failure Esophageal varices Gastric ulcer Gastroesophageal reflux disease GI bleed Hyperglycemia Hypertension Kidney stone Leukemia In childhood. Pancreatic abnormality Pericardial effusion Noted on CT and echocardiogram in August 2020. No evidence of tamponade. Portal hypertensive gastropathy Noted on endoscopy on 03/23/[address] Duran. Prostate cancer Status post radiation seed implantation. Smoker Spontaneous bacterial peritonitis (04/2020) Tobacco dependence Type 2 diabetes mellitus <Cinthia Aleman PA-C - Last Filed: 05/19/24 16:48> Surgical History Surgical History: Surgical History History of appendectomy History of cholecystectomy History of cystoscopy History of inguinal hernia repair History of lithotripsy History of repair of right rotator cuff <Cinthia Aleman PA-C - Last Filed: 05/19/24 16:48> Family History Family History: Family History Mother Breast cancer Father Acute myocardial infarction Heart disease Hypertension Other Diabetes mellitus Maternal Uncle Sibling Family history of malignant neoplasm <Cinthia Aleman PA-C - Last Filed: 05/19/24 16:48> Social History Social History: Social History Social History: Surrogate decision maker: Myra Worley () or Marnie Washington (aunt). Code status: Full code Smoking packs per day: 0.15 Smoking cigarettes per day: 3.0 Years smoked: 20 Smoking pack-years: 3.00 Smoking status: Current every day smoker Tobacco type: cigarettes Second hand tobacco smoke exposure: No Additional smoking assessment comments: 3 cig per day Alcohol intake: current Drinks per week: 1 Alcohol use details: Former beer drinker. Substance use: never Substance use type: does not use Other substance usage details: DECEMBER 16 2022 LAST DRINK- BEER Do You Feel Safe in your Home?: Yes Lack of Transportation: No Lack of Food: Never True Current Housing: I Have Housing Concerned About Future Housing: No Difficulty Paying Gas/Electric Bills: No Difficulty Paying for Meds: No Currently Unemployed: No Education: Decline to Answer Difficulty w/ Childcare or Family Care: No Living arrangements: with family Additional living arrangements comments: Resides in [place] with his and son. Additional occupation/education comments: On disability. Spiritual care concerns: No Agree to blood products: Yes <Cinthia Aleman PA-C - Last Filed: 05/19/24 16:48> Exam Narrative: GENERAL: Chronically ill frail jaundice in no acute distress HEAD: Normocephalic, atraumatic. EYES: PERRLA and EOMI. ENT: Nares clear, no rhinorrhea or epistaxis. Mucous membranes moist. NECK: Supple. CHEST: Clear to auscultation. No respiratory distress. HEART: Regular rate and rhythm. No murmur heard. Normal peripheral pulses. ABDOMEN: Soft, diffusely tender to palpation, nondistended, normal active bowel sounds. : Black colored stool that is guaiac positive EXTREMITIES: Normal range of motion. No edema. SKIN: Warm, dry, no rash. NEURO: No focal deficits. Alert and oriented x3. PSYCH: Normal mood and affect. <Xu Rosa MD - Last Filed: 05/19/24 22:14> Course Vital Signs Vital signs: Vital Signs Temperature 36.6 C 05/19/24 16:04 Pulse Rate 118 H 05/19/24 16:04 Respiratory Rate 18 05/19/24 16:04 Blood Pressure 99/62 L 05/19/24 16:04 Pulse Oximetry 98 05/19/24 16:04 Oxygen Delivery Room Air 05/19/24 16:04 Temperature 36.6 C 05/19/24 16:04 Pulse Rate 116 H 05/19/24 21:53 Respiratory Rate 15 05/19/24 21:53 Blood Pressure 92/50 L 05/19/24 21:53 Pulse Oximetry 98 05/19/24 21:53 Oxygen Delivery Room Air 05/19/24 16:04 <Cinthia Aleman PA-C - Last Filed: 05/19/24 16:48> Vital Signs Temperature 36.6 C 05/19/24 16:04 Pulse Rate 118 H 05/19/24 16:04 Respiratory Rate 18 05/19/24 16:04 Blood Pressure 99/62 L 05/19/24 16:04 Pulse Oximetry 98 05/19/24 16:04 Oxygen Delivery Room Air 05/19/24 16:04 Temperature 36.6 C 05/19/24 16:04 Pulse Rate 116 H 05/19/24 21:53 Respiratory Rate 15 05/19/24 21:53 Blood Pressure 92/50 L 05/19/24 21:53 Pulse Oximetry 98 05/19/24 21:53 Oxygen Delivery Room Air 05/19/24 16:04 <Xu Rosa MD - Last Filed: 05/19/24 22:14> MDM - Abdominal Pain MDM Narrative Medical decision making narrative: MSE by ELSY in triage. <Cinthia Aleman PA-C - Last Filed: 05/19/24 16:48> MSE by ELSY in triage. differential diagnosis includes upper GI bleed, electrolyte abnormality laboratory studies showed hemoglobin of 10.6 this is decreased from a labs were done yesterday years the patient was found have a potassium 6.6 electrolytes showed a BUN of 119 with creatinine 1.7 lactic acid was 1.0 the patient received 2 L normal saline boluses ammonia was also elevated 94. The patient was treated for hyperkalemia the patient was also started on octreotide drip since he is guaiac-positive and black stool. Case was discussed with both GI and the retail marketing coordinator the patient will be admitted to the ICU <Xu Rosa MD - Last Filed: 05/19/24 22:14> Lab Data Result diagrams: 05/19/24 19:16 05/19/24 19:16 <Cinthia Aleman PA-C - Last Filed: 05/19/24 16:48> Labs: Lab Results 05/19/24 05/19/24 05/19/24 Range/Units 19:16 19:30 20:18 WBC 17.3 H (4.5-10.0) K/mm3 RBC 3.97 L (4.6-6.20) M/mm3 Hgb 10.6 L (14.0-18.0) g/dL Hct 34.7 L (42.0-52.0) % MCV 87.4 (80-100) fl MCH 26.7 (26-34) pg MCHC 30.5 L (32-36) g/dl RDW 23.0 H (11.5-14.5) % Plt Count 366 D (150-375) k/mm3 MPV 11.1 H (7.4-10.4) fl Immature Gran % (Auto) 1.0 H (0-0.5) % Neut % (Auto) 84.7 H (45.5-73.1) % Lymph % (Auto) 6.6 L (18.3-44.2) % Frio % (Auto) 7.3 (2.6-8.5) % Eos % (Auto) 0.2 (0-4.4) % Baso % (Auto) 0.2 (0.2-1.2) % Lymph # (Auto) 1.14 (0.9-3.2) K/mm3 Frio # (Auto) 1.3 H (0.1-0.6) K/mm3 Eos # (Auto) 0.0 (0-0.3) K/mm3 Baso # (Auto) 0.0 (0.0-0.1) K/mm3 Abs Immat Gran (auto) 0.17 H (0.00-0.031) K/mm3 Absolute Neuts (auto) 14.6 H (1.3-6.7) K/mm3 Absolute Nucleated RBC 0.000 (0.0-0.012) K/mm3 Nucleated RBC % 0.0 (0.0-0.2) % Platelet Estimate Adequate (Adequate) Hypochromasia 1+ Anisocytosis 1+ Ovalocytes 1+ Schistocytes None seen PT 15.3 H (11.1-14.7) Seconds INR 1.2 APTT 26.6 (22.3-36.8) Seconds Sodium 131 L (137-145) mmol/L Potassium 6.6 H* (3.4-5.0) mmol/L Chloride 91 L (98-107) mmol/L Carbon Dioxide 31 H (22-30) mmol/L Anion Gap 9 (4-12) mmol/L BUN 119 H D (9-20) mg/dL Creatinine 1.70 H (0.7-1.3) mg/dL Estim Creat Clear Calc 40 ml/min Estimated GFR 42 L (59 - ) Glucose 344 H (65-110) mg/dL Lactic Acid 4.0 H (0.7-2.0) mmol/L Calcium 8.4 (8.4-10.2) mg/dL Total Bilirubin 0.9 (0.2-1.3) mg/dL AST 48 (17-59) U/L ALT 25 (6-50) U/L Alkaline Phosphatase 144 H (38-126) U/L Ammonia 94 H (9-30) umol/L Total Protein 6.0 L (6.3-8.2) g/dL Albumin 3.6 (3.5-5.1) g/dL Lipase 42 (23-300) U/L Blood Type AB Positive Antibody Screen Pending <Cinthia Aleman PA-C - Last Filed: 05/19/24 16:48> Lab Results 05/19/24 05/19/24 05/19/24 Range/Units 19:16 19:30 20:18 WBC 17.3 H (4.5-10.0) K/mm3 RBC 3.97 L (4.6-6.20) M/mm3 Hgb 10.6 L (14.0-18.0) g/dL Hct 34.7 L (42.0-52.0) % MCV 87.4 (80-100) fl MCH 26.7 (26-34) pg MCHC 30.5 L (32-36) g/dl RDW 23.0 H (11.5-14.5) % Plt Count 366 D (150-375) k/mm3 MPV 11.1 H (7.4-10.4) fl Immature Gran % (Auto) 1.0 H (0-0.5) % Neut % (Auto) 84.7 H (45.5-73.1) % Lymph % (Auto) 6.6 L (18.3-44.2) % Frio % (Auto) 7.3 (2.6-8.5) % Eos % (Auto) 0.2 (0-4.4) % Baso % (Auto) 0.2 (0.2-1.2) % Lymph # (Auto) 1.14 (0.9-3.2) K/mm3 Frio # (Auto) 1.3 H (0.1-0.6) K/mm3 Eos # (Auto) 0.0 (0-0.3) K/mm3 Baso # (Auto) 0.0 (0.0-0.1) K/mm3 Abs Immat Gran (auto) 0.17 H (0.00-0.031) K/mm3 Absolute Neuts (auto) 14.6 H (1.3-6.7) K/mm3 Absolute Nucleated RBC 0.000 (0.0-0.012) K/mm3 Nucleated RBC % 0.0 (0.0-0.2) % Platelet Estimate Adequate (Adequate) Hypochromasia 1+ Anisocytosis 1+ Ovalocytes 1+ Schistocytes None seen PT 15.3 H (11.1-14.7) Seconds INR 1.2 APTT 26.6 (22.3-36.8) Seconds Sodium 131 L (137-145) mmol/L Potassium 6.6 H* (3.4-5.0) mmol/L Chloride 91 L (98-107) mmol/L Carbon Dioxide 31 H (22-30) mmol/L Anion Gap 9 (4-12) mmol/L BUN 119 H D (9-20) mg/dL Creatinine 1.70 H (0.7-1.3) mg/dL Estim Creat Clear Calc 40 ml/min Estimated GFR 42 L (59 - ) Glucose 344 H (65-110) mg/dL Lactic Acid 4.0 H (0.7-2.0) mmol/L Calcium 8.4 (8.4-10.2) mg/dL Total Bilirubin 0.9 (0.2-1.3) mg/dL AST 48 (17-59) U/L ALT 25 (6-50) U/L Alkaline Phosphatase 144 H (38-126) U/L Ammonia 94 H (9-30) umol/L Total Protein 6.0 L (6.3-8.2) g/dL Albumin 3.6 (3.5-5.1) g/dL Lipase 42 (23-300) U/L Blood Type AB Positive Antibody Screen Pending <Xu Rosa MD - Last Filed: 05/19/24 22:14> Imaging Data Radiologist's impression: ITS Impressions Chest X-Ray 05/19/24 17:10 IMPRESSION: 1. No acute cardiopulmonary disease. Abdomen/Pelvis CT 05/19/24 21:12 IMPRESSION: 1. Liver cirrhosis. 2. Borderline splenomegaly. 3. Ascites 4. Thickening of the wall of the small bowel loops in the left side with slight thickening of the wall of the transverse colon. Enteritis and possibly colitis is highly suggestive. 5. Healing Fractures in the superior and inferior pubic rami. 6. Left adrenal adenoma unchanged. 7. Thickening in the area of the duodenal bulb. Gastroscopy is advised. <Cinthia Aleman PA-C - Last Filed: 05/19/24 16:48> ITS Impressions Chest X-Ray 05/19/24 17:10 IMPRESSION: 1. No acute cardiopulmonary disease. Abdomen/Pelvis CT 05/19/24 21:12 IMPRESSION: 1. Liver cirrhosis. 2. Borderline splenomegaly. 3. Ascites 4. Thickening of the wall of the small bowel loops in the left side with slight thickening of the wall of the transverse colon. Enteritis and possibly colitis is highly suggestive. 5. Healing Fractures in the superior and inferior pubic rami. 6. Left adrenal adenoma unchanged. 7. Thickening in the area of the duodenal bulb. Gastroscopy is advised. <Xu Rosa MD - Last Filed: 05/19/24 22:14> Critical Care Time Critical Care Time Critical Care Time: Yes <Xu Rosa MD - Last Filed: 05/19/24 22:14> Total Critical Care Time: 75 <Xu Rosa MD - Last Filed: 12/05/24 22:14> Discharge Plan Discharge Clinical Impression: GI bleed <Cinthia Aleman PA-C - Last Filed: 05/19/24 16:48> Patient Disposition: Still a Patient <Cinthia Aleman PA-C - Last Filed: 05/19/24 16:48> Condition: Stable <Cinthia Aleman PA-C - Last Filed: 05/19/24 16:48> Instructions: Antibiotic Form <Cinthia Aleman PA-C - Last Filed: 05/19/24 16:48> Prescriptions: No Action potassium chloride 20 mEq tablet,ER particles/crystals 20 meq PO BID midodrine 2.5 mg Tablet 5 mg PO TID 30 Days Qty: 180 0RF gabapentin 300 mg capsule 300 mg PO Q12H Qty: 60 0RF furosemide 40 mg tablet 80 mg PO BID insulin lispro protamin-lispro 100 unit/mL (75-25) insulin pen 5 unit SUBCUT ACHS PRN (Reason: Hyperglycemia) Rx Instructions: Only if over 200 spironolactone [Aldactone] 50 mg tablet 100 mg PO Q12H Eliquis 5 mg Tablet 5 mg PO BID hydrocodone-acetaminophen 7.5-300 mg tablet 1 tablet PO Q4-6H PRN (Reason: pain) Qty: 1 0RF oxycodone 20 mg tablet 20 mg PO Q4H PRN (Reason: pain) Qty: 1 0RF pantoprazole 40 mg tablet,delayed release (DR/EC) 40 mg PO Q12HR Qty: 60 2RF <Cinthia Aleman PA-C - Last Filed: 05/19/24 16:48> Follow-up/Referrals: Mathews,MD Matt [Primary Care Provider] - <Cinthia Aleman PA-C - Last Filed: 05/19/24 16:48> Time of Disposition: 22:04 <Cinthia Aleman PA-C - Last Filed: 05/19/24 16:48> 22:04 <Xu Rosa MD - Last Filed: 05/19/24 22:14>
[2024-05-19 19:21] LABS: Basophils Percent Auto 0.2 % (0.2-1.2); Eosinophils Percent Auto 0.2 % (0-4.4); Hematocrit 34.7 % (42.0-52.0); Hemoglobin 10.6 g/dL (14.0-18.0); Immature Granulocyte Absolute 0.17 K/mm3 (0.00-0.031); Lymphocytes Absolute Auto 1.14 K/mm3 (0.9-3.2); Lymphocytes Percent Auto 6.6 % (18.3-44.2); Mean Corpuscular HGB Conc 30.5 g/dl (32-36); Mean Corpuscular Hemoglobin 26.7 pg (26-34); Mean Corpuscular Volume 87.4 fl (80-100); Mean Platelet Volume 11.1 fl (7.4-10.4); Monocytes Absolute Auto 1.3 K/mm3 (0.1-0.6); Monocytes Percent Auto 7.3 % (2.6-8.5); Neutrophils Absolute Auto 14.6 K/mm3 (1.3-6.7); Neutrophils Percent Auto 84.7 % (45.5-73.1); Platelet Count Result 366 k/mm3 (150-375); Red Blood Count 3.97 M/mm3 (4.6-6.20); White Blood Count 17.3 K/mm3 (4.5-10.0)
[2024-05-19 19:36] LABS: INR 1.2; Prothrombin Time 15.3 Seconds (11.1-14.7)
[2024-05-19 19:41] LABS: Anisocytosis 1+; Hypochromasia 1+; Ovalocytes 1+; Platelet Estimate Adequate (Adequate); Schistocytes None Seen
[2024-05-19 19:47] LABS: Alanine Aminotransferase 25 U/L (6-50); Albumin Level 3.6 g/dL (3.5-5.1); Alkaline Phosphatase 144 U/L (38-126); Anion Gap 9 mmol/L (4-12); Aspartate Amino Transferase 48 U/L (17-59); Bilirubin,Total 0.9 mg/dL (0.2-1.3); Blood Urea Nitrogen 119 mg/dL (9-20); Calcium 8.4 mg/dL (8.4-10.2); Carbon Dioxide 31 mmol/L (22-30); Chloride 91 mmol/L (98-107); Estimated CRCL calculation 40 ml/min; Estimated Glomerular Filt Rate 42; Glucose 344 mg/dL (65-110); Lipase 42 U/L (23-300); Potassium 6.6 mmol/L (3.4-5.0); Sodium 131 mmol/L (137-145)
[2024-05-19 19:50] LABS: Partial Thromboplastin Time 26.6 Seconds (22.3-36.8)
[2024-05-19] MEDS: DEXTROSE 50% 25 GM/50 ML SYRINGE IV PUSH (20:04)
[2024-05-19] MEDS: INSULIN HUMAN REGULAR (*BKC) 100 UNITS/ML 10 UNITS IV PUSH (20:05)
[2024-05-19] MEDS: CALCIUM GLUCONATE 1,000 MG/10 ML VIAL 1000 MG IV PUSH (20:08)
[2024-05-19] MEDS: SODIUM CHLORIDE 0.9% IV 1,000 ML 999 ML IV CONT ×2 (20:13→20:56)
[2024-05-19] MEDS: SODIUM BICARBONATE 8.4% 50 MEQ/50 ML SYRINGE IV PUSH (20:20)
[2024-05-19] MEDS: SODIUM ZIRCONIUM CYCLOSILICATE 10 GM POWD.PACK PO (20:25)
[2024-05-19] MEDS: OCTREOTIDE ACETATE 50 MCG/ML VIAL IV PUSH (20:25)
[2024-05-19] MEDS: OCTREOTIDE ACETATE 500 MCG in SODIUM CHLORIDE 0.9% IV 99 ML 10 MCG IV CONT (20:27)
[2024-05-19] MEDS: ONDANSETRON INJ 4 MG/2 ML VIAL IV PUSH (20:30)
[2024-05-19] MEDS: THIAMINE 500 MG/NS 100 ML 500 MG/100 ML BAG 200 MG IVPB (20:32)
[2024-05-19 20:36] LABS: Ammonia 94 umol/L (9-30)
[2024-05-19] MEDS: PANTOPRAZOLE SODIUM IV 40 MG VIAL 80 MG IV PUSH (20:58)
[2024-05-19 21:42] VITALS: PULSE 112; RESP 15; O2SAT 96
[2024-05-19 21:53] VITALS: BP 92/50; PULSE 116; RESP 15; O2SAT 98
[2024-05-19 22:19] LABS: Reflex Lactic Acid Yes or No Add Lactic
--- NOTE | 2024-05-19 22:20 | P.HP_ITS ---
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 The patient had been evaluated in the ER yesterday due to chest pain had 1 set of cardiac enzymes and signed out AMA. He reported that he has never had trouble with his heart before in if his cardiac enzymes were negative it clearly was in his heart. He reported that the chest pain was in the epigastric region and radiated up to his left shoulder. He did have some increased epigastric abdominal tenderness as well. He reported that ever since the onset of his chest pain he has felt full like he could not eat anything. He reported that he last had his paracentesis 2 days ago in the got a bowel 700 mL off according to notes. He does not feel like his abdomen is any more distended than usual. He has chronic periumbilical abdominal tendernes that is chronic and unchanged. Around 15:00 he acutely became nauseated had a extremely large amount of hematemesis. Patient has a picture on his phone demonstrating large amount of blood clots in the toilet and toilet bowl. He also noted that ever since he returned to the long term after developing the chest pain yesterday he has had a total of 4 melenic stools of moderate to large size. On route to the hospital the patient received 15 mg of Toradol and 4 mg of Zofran per EMS. While in the ER the patient acutely became nauseous and had the emergent need for a bowel movement. He was assisted to the bathroom by nursing staff at which time he had incontinent melenic stools and a large amount of hematemesis of similar consistency to his prior emesis at the long term. He has not had any further emesis or bowel movements. Labs demonstrated drop in hemoglobin of 2 g compared to yesterday, potassium acutely elevated from 4.1 up to 6.6 compared to yesterday, creatinine of from 0.9 up to 1.7, glucose of 344 and patient has positive antibodies on type and screen. Shortly after arriving to the ICU patient had a repeat hemoglobin obtained which occurred during the my interview with patient. His hemoglobin shortly thereafter returned at 6.8. The patient had received 2 L of fluid bolus in the ER. Patient was actively hypotensive at the time my evaluation with systolic blood pressures as low as 79/59. During the course of my interview patient went from being completely alert oriented to extremely somnolent and have new be woke up multiple times to answer questions. Patient did consent for central line placement. Ultrasound demonstrate complete collapse the patient has IJ with displacement of the ultrasound probe. Patient wanted an IJ performed by did not feel this was safe subsequently patient's eventually agree to a right femoral line. After central line placement patient's blood pressures improved with Levophed. However, patient remains extremely somnolent. The patient reports that his blood pressures had been actually higher than usual at the long term with pressures in the 150s. His blood pressures in the ER yesterday were in the 100s systolic. He is on midodrine at the long term as needed for hypotension. The patient reports that he had not slept in 5 days due to feeling restless. He states that he is now so tired and can not keep his eyes open but now he feels like he can rest and that is why he cannot stay awake. The patient had been on hospice with [facility] in February 2024 but has since been taken off of hospice because his condition was improving. Review of Systems Review of Systems: 12 systems were reviewed with pertinent positives and negatives per HPI. Except as documented in the HPI, all other systems were reviewed and are negative. [facility] Past Medical History Medical History (Updated 05/20/24 @ 03:59 by Maryan Ortiz DO) Arthritis C. difficile colitis (~2021) Cerebrovascular accident (2004) Chronic anemia Cirrhosis of liver with ascites Closed fracture of left proximal humerus Deep vein thrombosis of axillary vein of left upper extremity (03/2023) Diarrhea Diastolic congestive heart failure Esophageal varices Gastric ulcer Gastroesophageal reflux disease GI bleed Hypertension HU (iron deficiency anemia) Kidney stone Leukemia In childhood. Pancreatic abnormality Pericardial effusion Noted on CT and echocardiogram in August 2020. No evidence of tamponade. Portal hypertensive gastropathy Noted on endoscopy on 03/23/[address] Duran. Prostate cancer Status post radiation seed implantation. Pulmonary emboli (03/2023) Pulmonary hypertension Spontaneous bacterial peritonitis (04/2020) Tobacco dependence Type 2 diabetes mellitus Umbilical hernia Surgical History Surgical History History of appendectomy History of cholecystectomy History of cystoscopy History of inguinal hernia repair History of lithotripsy History of repair of right rotator cuff Family History Family History Mother Breast cancer Father Acute myocardial infarction Heart disease Hypertension Other Diabetes mellitus Maternal Uncle Sibling Family history of malignant neoplasm Social History Social History (Updated 05/20/24 @ 03:55 by Maryan Ortiz DO) Social History: Patient has been residing in long term since his 's following metastatic breast cancer. He has been residing at a long term since July 2023. He still smokes cigarettes every day. He has not d rink alcohol in almost 2 years and then denies heavy alcohol use prior to that. Surrogate decision maker: Marnie Washington (aunt) who lives locally or his mother who lives in [facility] Code status: DNR/DNI Smoking packs per day: 0.5 Smoking cigarettes per day: 10.0 Years smoked: 30 Smoking pack-years: 15.00 Smoking status: Current every day smoker Tobacco type: cigarettes Second hand tobacco smoke exposure: No Additional smoking assessment comments: 3 cig per day Alcohol intake: former Drinks per week: 1 Alcohol use details: Former beer drinker. Substance use: never Substance use type: does not use Other substance usage details: DECEMBER 16 2022 LAST DRINK- BEER Do You Feel Safe in your Home?: Yes Lack of Transportation: No Lack of Food: Never True Current Housing: I Have Housing Concerned About Future Housing: No Difficulty Paying Gas/Electric Bills: No Difficulty Paying for Meds: No Currently Unemployed: No Education: Decline to Answer Difficulty w/ Childcare or Family Care: No Living arrangements: with family Additional living arrangements comments: Resides in [place] with his and son. Additional occupation/education comments: On disability. Spiritual care concerns: No Agree to blood products: Yes Meds Home Medications and Allergies Home Medications Medication Instructions Recorded Confirmed Type potassium chloride 20 mEq 20 meq PO BID 04/11/22 05/20/24 History tablet,extended release(part/cryst) pantoprazole 40 mg tablet,delayed 40 mg PO Q12HR #60 tabs 07/09/22 05/20/24 Rx release furosemide 40 mg tablet 100 mg PO BID 08/25/22 05/20/24 History spironolactone 50 mg tablet 125 mg PO Q12H 04/13/23 05/20/24 History (Aldactone) [facility] Multivitamins/Minerals 1 tablet PO DAILY 05/20/24 05/20/24 History Miralax 17 g PO DAILY 05/20/24 05/20/24 History cholestyramine-aspartame 4 gram 1 ea PO PRN PRN Diarrhea 05/20/24 05/20/24 History oral powder for susp in a packet (Cholestyramine Light) divalproex 500 mg tablet,extended 500 mg PO BID 05/20/24 05/20/24 History release 24 hr (Depakote ER) ferrous sulfate 325 mg (65 mg 325 mg PO DAILY 05/20/24 05/20/24 History iron) tablet insulin glargine 10 units subcut HS 05/20/24 05/20/24 History insulin lispro 100 unit/mL 1 sliding scale dose subcut 05/20/24 05/20/24 History subcutaneous pen USEASDIRECTD insulin lispro protamine-lispro 5 unit subcut AC 05/20/24 05/20/24 History 100 unit/mL (75-25) subcutaneous pen (Humalog Mix 75-25 KwikPen) lactulose 10 gram/15 mL oral 45 ml PO QID 05/20/24 05/20/24 History solution (Enulose) levothyroxine 25 mcg tablet 25 mcg PO DAILY 05/20/24 05/20/24 History lidocaine 5 % topical patch 1 patch topical DAILY 05/20/24 05/20/24 History magnesium citrate (Citroma oral 296 ml PO ONCE 05/20/24 05/20/24 History solution) magnesium hydroxide 400 mg/5 mL 30 ml PO PRN PRN Constipation 05/20/24 05/20/24 History oral suspension (Milk of Magnesia) magnesium oxide 400 mg PO DAILY 05/20/24 05/20/24 History midodrine 2.5 mg tablet 5 mg PO TID PRN Hypotension 05/20/24 05/20/24 History morphine 60 mg tablet,extended 60 mg PO TID 05/20/24 05/20/24 History release nicotine 21 mg/24 hr daily 1 patch transdermal DAILY 05/20/24 05/20/24 History transdermal patch ondansetron HCl 8 mg tablet 8 mg PO TID PRN Nausea And Vomiting 05/20/24 05/20/24 History oxycodone 20 mg tablet 10 mg PO Q4H PRN pain 05/20/24 05/20/24 History prednisone 10 mg tablet 10 mg PO AC 05/20/24 05/20/24 History senna-docusate sodium tablet 2 tablet PO BID 05/20/24 05/20/24 History sodium phosphates 19 gram-7 118 ml RECTAL PRN constipation 05/20/24 05/20/24 History gram/118 mL enema (Fleet Enema) trazodone 100 mg tablet 100 mg PO HS 05/20/24 05/20/24 History Allergies Allergy/AdvReac Type Severity Reaction Status Date / Time ceftriaxone AdvReac Itching Verified 04/01/24 21:11 ciprofloxacin AdvReac Itching Verified 04/01/24 21:11 Vital Signs Vital Signs - 24 hr 05/19/24 16:04 05/19/24 21:42 05/19/24 21:53 Temperature 97.8 F Pulse Rate 118 H 112 H 116 H Respiratory Rate 18 15 15 Blood Pressure 99/62 L 92/50 L Pulse Oximetry 98 96 98 Oxygen Delivery Room Air Exam Narrative: Weight 74.3 kg BMI 28.1 Const: Other: Acutely ill-appearing, appears older than stated age, height weight proportionate HENMT: Other: Mucous membranes are dry, no oral pharyngeal erythema, in fact patient has mucosal pallor, head is normocephalic atraumatic Eyes: Other: Pupils are equal and reactive, marked conjunctival pallor, conjunctival edema noted bilaterally, no scleral icterus Neck: Other: No JVD, no inter cervical lymphadenopathy Resp: Other: Clear to auscultation bilaterally, no increased work of breathing Cardio: Other: Sinus tachycardia, systolic murmur noted, 1+ bilateral radial pulses, palpable pedal pulses GI: Other: Distended, marked tenderness in the epigastric region, soft easily reducible umbilical hernia but significant tenderness palpation which patient reports is baseline, hyperactive bowel sounds, abdomen is distended but soft : Other: Normal circumcised male Skin: Other: Marked pallor, cool to touch, 5-6 second cap refill with mottling of hands and feet bilaterally Neuro: Other: Patient was initially alert oriented x4 as exam continued the patient became more more somnolent and more difficult to arouse Extrem: Other: No clubbing, cyanosis of nail beds of the hand, no pitting edema Psych: Other: Appropriate mood and affect, pleasant and cooperative, judgment and insight intact H&P: Results Labs Labs: Laboratory Tests 05/19/24 19:16 05/19/24 19:16 05/19/24 05/19/24 05/19/24 19:16 19:30 20:18 WBC 17.3 H RBC 3.97 L Hgb 10.6 L Hct 34.7 L MCV 87.4 MCH 26.7 MCHC 30.5 L RDW 23.0 H Plt Count 366 D MPV 11.1 H Immature Gran % (Auto) 1.0 H Neut % (Auto) 84.7 H Lymph % (Auto) 6.6 L Kleberg % (Auto) 7.3 Eos % (Auto) 0.2 Baso % (Auto) 0.2 Lymph # (Auto) 1.14 Kleberg # (Auto) 1.3 H Eos # (Auto) 0.0 Baso # (Auto) 0.0 Abs Immat Gran (auto) 0.17 H Absolute Neuts (auto) 14.6 H Absolute Nucleated RBC 0.000 Nucleated RBC % 0.0 Platelet Estimate Adequate Hypochromasia 1+ Anisocytosis 1+ Ovalocytes 1+ Schistocytes None seen PT 15.3 H INR 1.2 APTT 26.6 Sodium 131 L Potassium 6.6 H* Chloride 91 L Carbon Dioxide 31 H Anion Gap 9 BUN 119 H D Creatinine 1.70 H Estim Creat Clear Calc 40 Estimated GFR 42 L Glucose 344 H Lactic Acid 4.0 H Calcium 8.4 Total Bilirubin 0.9 AST 48 ALT 25 Alkaline Phosphatase 144 H Ammonia 94 H Total Protein 6.0 L Albumin 3.6 Lipase 42 Blood Type AB Positive Antibody Screen Pending Impressions Chest X-Ray 05/19/24 17:10 (personally reviewed and interpreted) IMPRESSION: 1. No acute cardiopulmonary disease. Abdomen/Pelvis CT 05/19/24 21:12 (personally reviewed will defer to radiologic interpretation) IMPRESSION: 1. Liver cirrhosis. 2. Borderline splenomegaly. 3. Ascites 4. Thickening of the wall of the small bowel loops in the left side with slight thickening of the wall of the transverse colon. Enteritis and possibly colitis is highly suggestive. 5. Healing Fractures in the superior and inferior pubic rami. 6. Left adrenal adenoma unchanged. 7. Thickening in the area of the duodenal bulb. Gastroscopy is advised. EKG from 05/18/2024 personally reviewed. Demonstrated rate of 88 sinus rhythm with supraventricular premature complexes QTC 456 septal DC of indeterminate age and low-voltage criteria. Assessment and Plan Assessment and plan (1) Hemorrhagic shock: Code(s): R57.8 - Other shock Status: Acute (2) Acute upper gastrointestinal hemorrhage: Code(s): K92.2 - Gastrointestinal hemorrhage, unspecified Status: Acute (3) Acute hyperkalemia: Code(s): E87.5 - Hyperkalemia Status: Acute (4) Acute kidney injury: Code(s): N17.9 - Acute kidney failure, unspecified Status: Acute (5) Type 2 diabetes mellitus with hyperglycemia, with long-term current use of insulin: Code(s): E11.65 - Type 2 diabetes mellitus with hyperglycemia; Z79.4 - penitentiary (current) use of insulin Status: Acute (6) Chronic hypotension: Code(s): I95.89 - Other hypotension Status: Acute (7) Cirrhosis: Qualifiers: Ascites presence: with ascites Hepatic cirrhosis type: alcoholic c irrhosis Qualified Code(s): K70.31 - Alcoholic cirrhosis of liver with ascites Code(s): K74.60 - Unspecified cirrhosis of liver Status: Acute (8) Colitis: Code(s): K52.9 - Noninfective gastroenteritis and colitis, unspecified Status: Acute (9) Toxic metabolic encephalopathy: Code(s): G92.8 - Other toxic encephalopathy Status: Acute Plan Patient has upper GI hemorrhage possibly due to varices verses duodenal source. Given inflammation on CT scan at the region of duodenum on the CT scan suggest possible underlying duodenal ulcer. Patient was treated with octreotide drip and bolus of 80 mg of Protonix in the ER. Will place patient on octreotide drip and Protonix infusion. Patient's hemoglobin had dropped 2 g compared to yesterday's ER visit. Will monitor hemoglobin q.6 hours. The patient unfortunately has antibodies to blood products and we are waiting type and cross .... But in the process awaiting for crossmatch the patient's hemoglobin dropped to 6.8 requiring more emergent transfusion. Patient was transfused with 2 units of O-negative blood while awaiting for type specific blood to arrive. Gastroenterology was consulted from the ER. Patient is NPO. The patient does use midodrine as needed for intermittent hypotension but patient has remained hypotensive and is now having symptoms of encephalopathy indicating decreased end-organ perfusion. Patient is consented for central line and right femoral line was placed. The patient has been placed on Levophed to maintain maps 60-65 and systolic blood pressures 85-90. Will try to strike a balance between adequate perfusion and blood pressures that are so high that the patient has more rapid blood loss. The patient does have acute kidney injury with markedly elevated BUN from yesterday (40 up to 119). More likely due to acute GI bleed and relative hypoperfusion will monitor serial electrolyte panels. Patient does have associated severe hyperkalemia. Patient has associated hyperglycemia as well. In the ER patient received insulin, calcium, bicarb, lowkalma and dextrose. Will repeat electrolyte panel at 23:00 and then trend/treat as appropriate after. Will hold the patient's home potassium supplement, potassium-sparing diuretic and Lasix. Will avoid nephrotoxic medications. Patient does have leukocytosis on labs. This could be due to acute reactive state versus infectious cause. CT suggest possible colitis versus duodenitis however given patient's chronic ascites this could be due to associated chronic ascites and not due to acute infectious cause. Duodenal findings are again more likely due to a duodenal ulcer. Colitis could be acute colitis or associated ascites. Either way patient been placed on broad-spectrum antibiotic coverage with Zosyn. Rocephin and Flagyl not use due to patient's history of allergy to Rocephin. Will repeat CBC in a.m. and monitor for signs of fever or infection. Patient does have type 2 diabetes mellitus with acute hyperglycemia. Will place patient on moderate sliding scale insulin coverage with Accu-Cheks q.6 hours given NPO status. Patient was becoming more more somnolent during my evaluation. It is unclear if this is due to hemorrhagic shock verses worsening hepatic encephalopathy. Given the patient's active bleeding and marked hypotension I do not feel his safety give the patient lactulose at this moment. Will repeat patient's CBC, CMP and ammonia level in a.m.. 75 minute spent in critical care activities. Due to a high probability of clinically significant, life threatening deterioration, the patient required my highest level of preparedness to intervene emergently and I personally spent this critical care time directly and personally managing the patient. This critical care time included obtaining a history; examining the patient; pulse oximetry; ordering and review of studies; arranging urgent treatment with development of a management plan; evaluation of patient's response to treatment; frequent reassessment; and discussions with other providers. It was exclusive of separately billable procedures and treating other patients and teaching time. Please see Assessment and Plan section and the rest of the note for further information on patient assessment and treatment. Quality VTE Prophylaxis VTE prophylaxis: mechanical ordered (SCDs) Hospitalist MIPS Advance Care Plan I have confirmed that the patient's Advanced Care Plan is present, code status is documented, or surrogate decision maker is listed in patient medical record.: Yes Medication Reconciliation I have utilized all available resources to obtain, update and review the patients current medications (includes all prescriptions, OTC, herbals, cannabis, and nutritional supplements).: Yes
[2024-05-19] MEDS: PIPERACILLN/TAZ 3.375GM/NS50ML 3.375 GM/50 ML BAG IVPB (22:45)
[2024-05-19 22:51] LABS: Glucose Point of Care 131 mg/dl (65-105)
[2024-05-19] MEDS: SODIUM CHLORIDE 0.9% IV 1,000 ML 125 ML IV CONT (22:53)
[2024-05-19] MEDS: PANTOPRAZOLE SODIUM IV 80 MG in SODIUM CHLORIDE 0.9% IV 500 ML 50 MG IV CONT (22:54)
[2024-05-19 22:56] VITALS: BP 92/60; PULSE 112; RESP 21; O2SAT 99
[2024-05-19 23:20] VITALS: BP 81/58; PULSE 115; RESP 16; TEMP 36.7; O2SAT 91
[2024-05-19 23:26] VITALS: BMI 28.0
[2024-05-19 23:30] VITALS: O2SAT 95
[2024-05-20] VITALS (46 sets, daily range): BP systolic 79–140; BP diastolic 48–83; PULSE 56–109; RESP 13–28; TEMP 36.4–37.1; O2SAT 83–100
[2024-05-20 00:11] LABS: Hematocrit 22.2 % (42.0-52.0)
[2024-05-20 00:16] LABS: Hemoglobin 6.8 g/dL (14.0-18.0)
[2024-05-20 00:27] LABS: Anion Gap 2 mmol/L (4-12); Blood Urea Nitrogen 120 mg/dL (9-20); Calcium 7.4 mg/dL (8.4-10.2); Carbon Dioxide 34 mmol/L (22-30); Chloride 96 mmol/L (98-107); Estimated CRCL calculation 43 ml/min; Estimated Glomerular Filt Rate 49; Glucose 122 mg/dL (65-110); Potassium 5.5 mmol/L (3.4-5.0); Sodium 132 mmol/L (137-145)
[2024-05-20] MEDS: HYDROmorphone HCL INJ (*CRX) 1 MG/ML SYR 0.5 MG IV PUSH ×2 (01:15→09:11)
[2024-05-20] MEDS: NOREPINEPHRINE 8 MG/D5W 250 ML 8 MG/250 ML BAG 9.38 MG IV CONT (01:27)
[2024-05-20] MEDS: ALBUMIN HUMAN 25% 25 GM/100 ML 200 ML IVPB (01:32)
--- NOTE | 2024-05-20 02:18 | WPDPROCEDUR ---
Procedures Central Line Placement Right Femoral: Central Line Date: 05/20/24 Central Line Time: 00:52 Discussed w/ the patient/family/POA,the placement of a central venous catheter, including its clinical necessity/indication & associated potential risks, benifits and alternatives.: Yes The patient/family/POA understand(s) and acknowledge(s) the need to proceed with central venous catheter insertion as an important element of the patient's clinical management.: Yes Consent: I have discussed with the patient and/or surrogate, the non-emergent placement of a central venous catheter, including its clinical necessity/indication and associated potential risks and complications. The patient and/or surrogate understand(s) and acknowledge(s) the need to proceed with central venous catheter insertion as an important element of the patient's clinical management. Time Out Performed: Yes Patient Position: trendelenburg Patient placed on monitor/pulse ox: Yes Provider Prep: mask, sterile gown, sterile gloves, Max. sterile barrier precautions and hand hygiene with conventional soap/water or alcohol based hand rub Central line prep: 2% Chlorhexidine scrub Local anesthesia used: lidocaine 1% Amount of anesthesia used (ml): 5 Sterile US Technique with sterile gel/sterile probe covers: Yes Central line lumen inserted: triple Turkish: 7 Length (cm): 16 Depth of Insertion (cm): 15 Post Procedure: sutured in place, good blood return, all ports aspirated, flushed, capped, transparent dressing, hemostatic product, antimicrobial product and securement product Patient tolerated procedure: well
[2024-05-20] MEDS: SODIUM CHLORIDE 0.9% IV 250 ML 30 ML IV CONT (02:51)
[2024-05-20 02:59] LABS: MRSA (PCR) NOT DETECTED (NOT DETECTE)
[2024-05-20 06:10] LABS: Basophils Absolute Auto 0.1 K/mm3 (0.0-0.1); Basophils Percent Auto 0.5 % (0.2-1.2); Eosinophils Absolute Auto 0.1 K/mm3 (0-0.3); Eosinophils Percent Auto 0.7 % (0-4.4); Hematocrit 21.9 % (42.0-52.0); Immature Granulocyte Absolute 0.07 K/mm3 (0.00-0.031); Immature Granulocyte Percent A 0.6 % (0-0.5); Lymphocytes Absolute Auto 1.68 K/mm3 (0.9-3.2); Lymphocytes Percent Auto 14.8 % (18.3-44.2); Mean Corpuscular Hemoglobin 27.8 pg (26-34); Mean Corpuscular Volume 86.9 fl (80-100); Mean Platelet Volume 11.3 fl (7.4-10.4); Monocytes Absolute Auto 1.3 K/mm3 (0.1-0.6); Monocytes Percent Auto 11.8 % (2.6-8.5); Neutrophils Absolute Auto 8.2 K/mm3 (1.3-6.7); Neutrophils Percent Auto 71.6 % (45.5-73.1); Platelet Count Result 183 k/mm3 (150-375); Red Blood Count 2.52 M/mm3 (4.6-6.20); Red Cell Distribution Width 21.5 % (11.5-14.5); White Blood Count 11.4 K/mm3 (4.5-10.0)
[2024-05-20] MEDS: PIPERACILLN/TAZ 3.375GM/NS50ML 3.375 GM/50 ML BAG IVPB ×3 (06:15→18:11)
[2024-05-20] MEDS: OCTREOTIDE ACETATE 500 MCG in SODIUM CHLORIDE 0.9% IV 99 ML 10 MCG IV CONT ×2 (06:16→16:45)
[2024-05-20 06:25] LABS: Ammonia 11 umol/L (9-30)
[2024-05-20 06:57] LABS: Alanine Aminotransferase 17 U/L (6-50); Albumin Level 3.1 g/dL (3.5-5.1); Alkaline Phosphatase 91 U/L (38-126); Anion Gap 4 mmol/L (4-12); Aspartate Amino Transferase 40 U/L (17-59); Bilirubin,Total 0.9 mg/dL (0.2-1.3); Calcium 7.8 mg/dL (8.4-10.2); Carbon Dioxide 33 mmol/L (22-30); Chloride 99 mmol/L (98-107); Estimated CRCL calculation 40 ml/min; Estimated Glomerular Filt Rate 45; Glucose 144 mg/dL (65-110); Potassium 4.8 mmol/L (3.4-5.0); Sodium 136 mmol/L (137-145)
[2024-05-20 07:16] LABS: Blood Urea Nitrogen 123 mg/dL (9-20)
--- NOTE | 2024-05-20 09:06 | WPDCNINT ---
Assessment and Plan Assessment and plan (1) Shock: Code(s): R57.9 - Shock, unspecified Status: Acute Assessment and Plan: Patient in shock likely secondary to acute blood loss. Also concern of SBP Patient is currently getting IV fluids He has received 2 L of fluid bolus He has received 1 unit of PRBC and will be getting 2 more units of PRBC transfusion Treatment of bleeding as below Continue Levophed titration to maintain mean arterial pressure. Add vasopressin infusion Infection workup and treatment as below (2) Acute kidney injury: Code(s): N17.9 - Acute kidney failure, unspecified Status: Acute Assessment and Plan: Patient presented with elevated creatinine likely secondary to hypotension and acute blood loss Blood transfusion and continue IV fluids Monitor urine output electrolytes and creatinine CT scan does not show any obstruction or stones If renal function does not improve will consult nephrology (3) Acute upper gastrointestinal hemorrhage: Code(s): K92.2 - Gastrointestinal hemorrhage, unspecified Status: Acute Assessment and Plan: Acute upper GI bleed likely secondary to varices Continue octreotide infusion and IV Protonix Vasopressin infusion GI consulted and plan for EGD Patient received 1 unit of PRBC and will be getting 2 more units of PRBC transfusion Monitor hemoglobin (4) Type 2 diabetes mellitus with hyperglycemia, with long-term current use of insulin: Code(s): E11.65 - Type 2 diabetes mellitus with hyperglycemia; Z79.4 - longterm (current) use of insulin Status: Acute Assessment and Plan: Sliding scale insulin (5) Abdominal ascites: Qualifiers: Ascites type: due to alcoholic cirrhosis Qualified Code(s): K70.31 - Alcoholic cirrhosis of liver with ascites Code(s): R18.8 - Other ascites Status: Acute Assessment and Plan: Patient has abdominal ascites and gets frequent paracentesis. (6) Cirrhosis of liver: Code(s): K74.60 - Unspecified cirrhosis of liver Status: Acute Assessment and Plan: Monitor ammonia level. Start lactulose when patient able to take p.o. (7) Acute blood loss anemia: Code(s): D62 - Acute posthemorrhagic anemia Status: Acute Assessment and Plan: See above (8) Abdominal pain: Code(s): R10.9 - Unspecified abdominal pain Status: Acute Assessment and Plan: Patient complains of chronic recurrent abdominal pain. He states that on the paracentesis couple days ago he was not having pain but since then he started having abdominal pain which she rates at 8 out 10 Currently on Zosyn for SBP management Will request IR for ultrasound-guided diagnostic paracentesis (9) Enteritis: Code(s): K52.9 - Noninfective gastroenteritis and colitis, unspecified Status: Acute Assessment and Plan: CT scan of the abdomen shows thickening of also small-bowel loops and transverse colon suggestive of enteritis although this could be just from ascites and edema He is on Zosyn currently which will be continued Involvement of small bowel does not suggest C diff and patient is not having any diarrhea at this time. Monitor Plan DVT prophylaxis -SCD Stress ulcer prophylaxis -PPI Nutrition - npo Code Status -patient is DNR Total Critical Care Time - 40 minutes Due to a high probability of clinically significant, life threatening deterioration, the patient required my highest level of preparedness to intervene emergently and I personally spent this critical care time directly and personally managing the patient. This critical care time included obtaining a history; examining the patient; pulse oximetry; ordering and review of studies; arranging urgent treatment with development of a management plan; evaluation of patient's response to treatment; frequent reassessment; and discussions with other providers. It was exclusive of separately billable procedures and treating other patients and teaching time. 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 The patient had been evaluated in the ER 03/18 due to chest pain had 1 set of cardiac enzymes and signed out AMA. His last paracentesis was on 05/17 when 800 mL fluid was removed Patient states that yesterday he started vomiting blood. He states he has had recurrent chronic abdominal pain which comes and goes and he has had for years. He states that he did not had any abdominal pain on the day of paracentesis but the day before yesterday patient started having abdominal pain which she rates at 8 out 10. He felt his abdomen was distended. No nausea or vomiting until he started vomiting blood. He also had multiple dark stools. He denies any chest pain shortness a breath dizziness lightheadedness loss of consciousness diarrhea constipation dysuria hematuria. All other systems were reviewed and were negative Workup in the ER showed patient's blood pressure was soft and he had a drop of hemoglobin from 12.4 to 10.6. Which later dropped to 6.8. His coags were unremarkable. He also had elevated creatinine elevated potassium at 5.5 and low calcium level Patient was treated for his hyperkalemia, started on antibiotics, given IV fluids and admitted to ICU. Patient also received transfusion of 1 unit of PRBC. Patient also due to hypotension had a central venous catheter placed and was started on Levophed. GI was consulted. Patient was also started on octreotide infusion and was given IV Protonix This morning patient states that he continues to have abdominal pain which radiates at 8/10. He states he is thirsty and has dry mouth. He also has chronic back pain which she rates at 7 to 8/10. No other new complaints. All other systems were reviewed and were negative. Review of Systems Review of Systems: All systems reviewed & are unremarkable except as noted in HPI and below (HPI) [facility] Past Medical History Medical History Arthritis C. difficile colitis (~2021) Cerebrovascular accident (2004) Chronic anemia Cirrhosis of liver with ascites Closed fracture of left proximal humerus Deep vein thrombosis of axillary vein of left upper extremity (03/2023) Diarrhea Diastolic congestive heart failure Esophageal varices Gastric ulcer Gastroesophageal reflux disease GI bleed Hypertension HU (iron deficiency anemia) Kidney stone Leukemia In childhood. Pancreatic abnormality Pericardial effusion Noted on CT and echocardiogram in August 2020. No evidence of tamponade. Portal hypertensive gastropathy Noted on endoscopy on 03/23/[address] Duran. Prostate cancer Status post radiation seed implantation. Pulmonary emboli (03/2023) Pulmonary hypertension Spontaneous bacterial peritonitis (04/2020) Tobacco dependence Type 2 diabetes mellitus Umbilical hernia Surgical History Surgical History History of appendectomy History of cholecystectomy History of cystoscopy History of inguinal hernia repair History of lithotripsy History of repair of right rotator cuff Family History Family History Mother Breast cancer Father Acute myocardial infarction Heart disease Hypertension Other Diabetes mellitus Maternal Uncle Sibling Family history of malignant neoplasm Social History Social History Social History: Patient has been residing in prison since his 's following metastatic breast cancer. He has been residing at a prison since July 2023. He still smokes cigarettes every day. He has not drink alcohol in almost 2 years and then denies heavy alcohol use prior to that. Surrogate decision maker: Marnie Washington (aunt) who lives locally or his mother who lives in [facility] Code status: DNR/DNI Smoking packs per day: 0.5 Smoking cigarettes per day: 10.0 Years smoked: 30 Smoking pack-years: 15.00 Smoking status: Current every day smoker Tobacco type: cigarettes Second hand tobacco smoke exposure: No Additional smoking assessment comments: 3 cig per day Alcohol intake: former Drinks per week: 1 Alcohol use details: Former beer drinker. Substance use: never Substance use type: does not use Other substance usage details: DECEMBER 16 2022 LAST DRINK- BEER Do You Feel Safe in your Home?: Yes Lack of Transportation: No Lack of Food: Never True Current Housing: I Have Housing Concerned About Future Housing: No Difficulty Paying Gas/Electric Bills: No Difficulty Paying for Meds: No Currently Unemployed: No Education: Decline to Answer Difficulty w/ Childcare or Family Care: No Living arrangements: with family Additional living arrangements comments: Resides in [place] with his and son. Additional occupation/education comments: On disability. Spiritual care concerns: No Agree to blood products: Yes Meds Home Medications and Allergies Home Medications Medication Instructions Recorded Confirmed Type potassium chloride 20 mEq 20 meq PO BID 04/11/22 05/20/24 History tablet,extended release(part/cryst) pantoprazole 40 mg tablet,delayed 40 mg PO Q12HR #60 tabs 07/09/22 05/20/24 Rx release furosemide 40 mg tablet 100 mg PO BID 08/25/22 05/20/24 History spironolactone 50 mg tablet 125 mg PO Q12H 04/13/23 05/20/24 History (Aldactone) [facility] Multivitamins/Minerals 1 tablet PO DAILY 05/20/24 05/20/24 History Miralax 17 g PO DAILY 05/20/24 05/20/24 History cholestyramine-aspartame 4 gram 1 ea PO PRN PRN Diarrhea 05/20/24 05/20/24 History oral powder for susp in a packet (Cholestyramine Light) divalproex 500 mg tablet,extended 500 mg PO BID 05/20/24 05/20/24 History release 24 hr (Depakote ER) ferrous sulfate 325 mg (65 mg 325 mg PO DAILY 05/20/24 05/20/24 History iron) tablet insulin glargine 10 units subcut HS 05/20/24 05/20/24 History insulin lispro 100 unit/mL 1 sliding scale dose subcut 05/20/24 05/20/24 History subcutaneous pen USEASDIRECTD insulin lispro protamine-lispro 5 unit subcut AC 05/20/24 05/20/24 History 100 unit/mL (75-25) subcutaneous pen (Humalog Mix 75-25 KwikPen) lactulose 10 gram/15 mL oral 45 ml PO QID 05/20/24 05/20/24 History solution (Enulose) levothyroxine 25 mcg tablet 25 mcg PO DAILY 05/20/24 05/20/24 History lidocaine 5 % topical patch 1 patch topical DAILY 05/20/24 05/20/24 History magnesium citrate (Citroma oral 296 ml PO ONCE 05/20/24 05/20/24 History solution) magnesium hydroxide 400 mg/5 mL 30 ml PO PRN PRN Constipation 05/20/24 05/20/24 History oral suspension (Milk of Magnesia) magnesium oxide 400 mg PO DAILY 05/20/24 05/20/24 History midodrine 2.5 mg tablet 5 mg PO TID PRN Hypotension 05/20/24 05/20/24 History morphine 60 mg tablet,extended 60 mg PO TID 05/20/24 05/20/24 History release nicotine 21 mg/24 hr daily 1 patch transdermal DAILY 05/20/24 05/20/24 History transdermal patch ondansetron HCl 8 mg tablet 8 mg PO TID PRN Nausea And Vomiting 05/20/24 05/20/24 History oxycodone 20 mg tablet 10 mg PO Q4H PRN pain 05/20/24 05/20/24 History prednisone 10 mg tablet 10 mg PO AC 05/20/24 05/20/24 History senna-docusate sodium tablet 2 tablet PO BID 05/20/24 05/20/24 History sodium phosphates 19 gram-7 118 ml RECTAL PRN constipation 05/20/24 05/20/24 History gram/118 mL enema (Fleet Enema) trazodone 100 mg tablet 100 mg PO HS 05/20/24 05/20/24 History Allergies Allergy/AdvReac Type Severity Reaction Status Date / Time ceftriaxone AdvReac Itching Verified 04/01/24 21:11 ciprofloxacin AdvReac Itching Verified 04/01/24 21:11 Vital Signs Vital Signs - 24 hr 05/19/24 16:04 05/19/24 21:42 05/19/24 21:53 Temperature 36.6 C Pulse Rate 118 H 112 H 116 H Respiratory Rate 18 15 15 Blood Pressure 99/62 L 92/50 L Pulse Oximetry 98 96 98 Oxygen Delivery Room Air Oxygen Flow Rate 05/19/24 22:56 05/20/24 00:00 05/20/24 01:27 Temperature Pulse Rate 112 H 99 Respiratory Rate 21 H Blood Pressure 92/60 L 79/59 L Pulse Oximetry 99 94 Oxygen Delivery Nasal Cannula Oxygen Flow Rate 2 05/20/24 00:00 05/19/24 23:20 05/20/24 02:00 Temperature 36.7 C Pulse Rate 109 H 115 H 82 Respiratory Rate 16 Blood Pressure 81/58 L Pulse Oximetry 91 Oxygen Delivery Oxygen Flow Rate 05/20/24 02:00 05/19/24 23:30 05/20/24 02:46 Temperature 36.7 C Pulse Rate 82 80 Respiratory Rate 16 18 Blood Pressure 84/57 L 86/63 L Pulse Oximetry 100 95 98 Oxygen Delivery Nasal Cannula Oxygen Flow Rate 2 05/20/24 03:06 05/20/24 03:45 05/20/24 04:00 Temperature 36.4 C L Pulse Rate 79 76 73 Respiratory Rate 14 Blood Pressure 87/54 L 84/50 L 108/65 Pulse Oximetry 100 Oxygen Delivery Oxygen Flow Rate 05/20/24 04:06 05/20/24 05:06 05/20/24 05:23 Temperature 36.8 C 36.7 C 36.7 C Pulse Rate 73 76 83 Respiratory Rate 16 17 14 Blood Pressure 122/67 108/64 109/60 Pulse Oximetry 97 92 83 L Oxygen Delivery Oxygen Flow Rate 05/20/24 04:00 05/20/24 04:00 05/20/24 06:00 Temperature 36.8 C Pulse Rate 73 79 Respiratory Rate 18 17 Blood Pressure 108/65 86/55 L Pulse Oximetry 97 97 95 Oxygen Delivery Nasal Cannula Oxygen Flow Rate 2 05/20/24 06:00 05/20/24 06:00 05/20/24 04:00 Temperature Pulse Rate 79 89 73 Respiratory Rate Blood Pressure 86/55 L Pulse Oximetry Oxygen Delivery Oxygen Flow Rate 05/20/24 08:00 Temperature 36.8 C Pulse Rate 68 Respiratory Rate 16 Blood Pressure 104/63 Pulse Oximetry 98 Oxygen Delivery Oxygen Flow Rate Exam Narrative: General: Pt is alert awake and in NAD Lungs/Chest: Trachea central Clear BS B/L, No crackles or wheezing. Cardiac: RRR. Normal S1 S2. No murmurs Circulation: Pedal pulses are intact and symmetrical. Abdomen: Abdomen is distended. Mild diffuse tenderness palpation. No guarding or rigidity. Bowel sounds present. Extremities: No clubbing, cyanosis or edema. Warm : Russo in place Neurologic: Follows commands. Moves all 4 extremities PERRL AO x3 Skin: No Rash Results Labs 05/20/24 05:57 05/20/24 05:57 Labs: Impressions Chest X-Ray 05/19/24 17:10 IMPRESSION: 1. No acute cardiopulmonary disease. Abdomen/Pelvis CT 05/19/24 21:12 IMPRESSION: 1. Liver cirrhosis. 2. Borderline splenomegaly. 3. Ascites 4. Thickening of the wall of the small bowel loops in the left side with slight thickening of the wall of the transverse colon. Enteritis and possibly colitis is highly suggestive. 5. Healing Fractures in the superior and inferior pubic rami. 6. Left adrenal adenoma unchanged. 7. Thickening in the area of the duodenal bulb. Gastroscopy is advised. Short CBC 05/19/24 05/19/24 05/20/24 Range/Units 19:16 23:53 05:57 WBC 17.3 H 11.4 H (4.5-10.0) K/mm3 Hgb 10.6 L 6.8 L* D 7.0 L (14.0-18.0) g/dL Hct 34.7 L 22.2 L 21.9 L (42.0-52.0) % Plt Count 366 D 183 (150-375) k/mm3 BMP 05/19/24 05/19/24 05/20/24 19:16 23:53 05:57 Sodium 131 L 132 L 136 L Potassium 6.6 H* 5.5 H 4.8 Chloride 91 L 96 L 99 Carbon Dioxide 31 H 34 H 33 H BUN 119 H D 120 H 123 H Creatinine 1.70 H 1.50 H 1.60 H Glucose 344 H 122 H 144 H Calcium 8.4 7.4 L 7.8 L Liver Function 05/19/24 05/20/24 Range/Units 19:16 05:57 Total Bilirubin 0.9 0.9 (0.2-1.3) mg/dL AST 48 40 (17-59) U/L ALT 25 17 (6-50) U/L Alkaline Phosphatase 144 H 91 (38-126) U/L Albumin 3.6 3.1 L (3.5-5.1) g/dL Hospitalist MIPS Advance Care Plan I have confirmed that the patient's Advanced Care Plan is present, code status is documented, or surrogate decision maker is listed in patient medical record.: Yes Medication Reconciliation I have utilized all available resources to obtain, update and review the patients current medications (includes all prescriptions, OTC, herbals, cannabis, and nutritional supplements).: Yes
[2024-05-20] MEDS: ALBUMIN HUMAN 25% 25 GM/100 ML 100 ML IVPB ×3 (09:15→18:12)
[2024-05-20 09:30] LABS: Albumin Level 3.1 g/dL (3.5-5.1)
[2024-05-20] MEDS: VASOPRESSIN INJ 100 UNITS in DEXTROSE 5% 95 ML IV CONT (09:30)
[2024-05-20] MEDS: LIDOCAINE 5% PATCH 1 PATCH TOPICAL (09:33)
[2024-05-20] MEDS: NICOTINE (*PBKC) 21 MG PATCH 1 PATCH TRANSDERM (09:33)
[2024-05-20] MEDS: LACTATED RINGERS 1,000 ML 100 ML IV CONT (09:38)
[2024-05-20 11:51] LABS: Glucose Point of Care 177 mg/dl (65-105)
[2024-05-20] MEDS: MORPHINE SULFATE (*CRX) 2 MG/ML INJ IV PUSH ×4 (12:25→23:13)
--- NOTE | 2024-05-20 12:42 | WPDGICN ---
Assessment and Plan Assessment and plan (1) Shock: Code(s): R57.9 - Shock, unspecified Status: Acute (2) Hemorrhagic shock: Code(s): R57.8 - Other shock Status: Acute Assessment and Plan: The patient has acute severe GI bleeding, although his overall synthetic function is not overwhelmingly deteriorated as it would be expected (Total Bb 0.9, MELD 3.0 = 14) compared to his baseline according to previous ambulatory visits during the past 2 years. The plan is to achieve hemodynamic stability with pressors and (preferably) albumin and perform EGD later today, with the intention to ligate bleeding varices if present. Will continue same regimen with antibotics, Octreotide and ICU monitoring of hemodynamic status and hemoglobin trend. (3) Acute upper gastrointestinal hemorrhage: Code(s): K92.2 - Gastrointestinal hemorrhage, unspecified Status: Acute GI Consult Note Consult date/time: 05/20/24 12:42 Reason for consult: Upper GI bleeding HPI: Matt Worley II is a 54 year old male with a known history of cirrhosis, ? autoimmune vs. ETOH, with a longstanding history of ascites, previous variceal bleeding which was treated with banding about 1 year ago. Patient came last night to the ED with massive hematemesis (blood clots) and melena. He was found to be hypotensive and received IV fluids in the ER, prior to transfering him to the ICU. During the night he remained hypotensive despite isotonic fluids @ 120 cc/hr, Albumin 50 g and currently on Levophed @ 7 mcg/kg/hr. He received 1 unit of PRBC, Octreotide Bolus followed by drip @50 mcg/hr and Pantoprazole infusion. I addition he received prophylactic Zosyn. Review of Systems Review of Systems: All systems reviewed & are unremarkable except as noted in HPI and below PMFSH Past Medical History Medical History Arthritis C. difficile colitis (~2021) Cerebrovascular accident (2004) Chronic anemia Cirrhosis of liver with ascites Closed fracture of left proximal humerus Deep vein thrombosis of axillary vein of left upper extremity (03/2023) Diarrhea Diastolic congestive heart failure Esophageal varices Gastric ulcer Gastroesophageal reflux disease GI bleed Hypertension HU (iron deficiency anemia) Kidney stone Leukemia In childhood. Pancreatic abnormality Pericardial effusion Noted on CT and echocardiogram in August 2020. No evidence of tamponade. Portal hypertensive gastropathy Noted on endoscopy on 03/23/[address] Duran. Prostate cancer Status post radiation seed implantation. Pulmonary emboli (03/2023) Pulmonary hypertension Spontaneous bacterial peritonitis (04/2020) Tobacco dependence Type 2 diabetes mellitus Umbilical hernia Surgical History Surgical History History of appendectomy History of cholecystectomy History of cystoscopy History of inguinal hernia repair History of lithotripsy History of repair of right rotator cuff Family History Family History Mother Breast cancer Father Acute myocardial infarction Heart disease Hypertension Other Diabetes mellitus Maternal Uncle Sibling Family history of malignant neoplasm Social History Social History Social History: Patient has been residing in senior living since his 's following metastatic breast cancer. He has been residing at a senior living since July 2023. He still smokes cigarettes every day. He has not drink alcohol in almost 2 years and then denies heavy alcohol use prior to that. Surrogate decision maker: Marnie Washington (aunt) who lives locally or his mother who lives in [facility] Code status: DNR/DNI Smoking packs per day: 0.5 Smoking cigarettes per day: 10.0 Years smoked: 30 Smoking pack-years: 15.00 Smoking status: Current every day smoker Tobacco type: cigarettes Second hand tobacco smoke exposure: No Additional smoking assessment comments: 3 cig per day Alcohol intake: former Drinks per week: 1 Alcohol use details: Former beer drinker. Substance use: never Substance use type: does not use Other substance usage details: DECEMBER 16 2022 LAST DRINK- BEER Do You Feel Safe in your Home?: Yes Lack of Transportation: No Lack of Food: Never True Current Housing: I Have Housing Concerned About Future Housing: No Difficulty Paying Gas/Electric Bills: No Difficulty Paying for Meds: No Currently Unemployed: No Education: Decline to Answer Difficulty w/ Childcare or Family Care: No Living arrangements: with family Additional living arrangements comments: Resides in [place] with his and son. Additional occupation/education comments: On disability. Spiritual care concerns: No Agree to blood products: Yes Meds Home Medications and Allergies Home Medications Medication Instructions Recorded Confirmed Type potassium chloride 20 mEq 20 meq PO BID 04/11/22 05/20/24 History tablet,extended release(part/cryst) pantoprazole 40 mg tablet,delayed 40 mg PO Q12HR #60 tabs 07/09/22 05/20/24 Rx release furosemide 40 mg tablet 100 mg PO BID 08/25/22 05/20/24 History spironolactone 50 mg tablet 125 mg PO Q12H 04/13/23 05/20/24 History (Aldactone) Ridge Multivitamins/Minerals 1 tablet PO DAILY 05/20/24 05/20/24 History Miralax 17 g PO DAILY 05/20/24 05/20/24 History cholestyramine-aspartame 4 gram 1 ea PO PRN PRN Diarrhea 05/20/24 05/20/24 History oral powder for susp in a packet (Cholestyramine Light) divalproex 500 mg tablet,extended 500 mg PO BID 05/20/24 05/20/24 History release 24 hr (Depakote ER) ferrous sulfate 325 mg (65 mg 325 mg PO DAILY 05/20/24 05/20/24 History iron) tablet insulin glargine 10 units subcut HS 05/20/24 05/20/24 History insulin lispro 100 unit/mL 1 sliding scale dose subcut 05/20/24 05/20/24 History subcutaneous pen USEASDIRECTD insulin lispro protamine-lispro 5 unit subcut AC 05/20/24 05/20/24 History 100 unit/mL (75-25) subcutaneous pen (Humalog Mix 75-25 KwikPen) lactulose 10 gram/15 mL oral 45 ml PO QID 05/20/24 05/20/24 History solution (Enulose) levothyroxine 25 mcg tablet 25 mcg PO DAILY 05/20/24 05/20/24 History lidocaine 5 % topical patch 1 patch topical DAILY 05/20/24 05/20/24 History magnesium citrate (Citroma oral 296 ml PO ONCE 05/20/24 05/20/24 History solution) magnesium hydroxide 400 mg/5 mL 30 ml PO PRN PRN Constipation 05/20/24 05/20/24 History oral suspension (Milk of Magnesia) magnesium oxide 400 mg PO DAILY 05/20/24 05/20/24 History midodrine 2.5 mg tablet 5 mg PO TID PRN Hypotension 05/20/24 05/20/24 History morphine 60 mg tablet,extended 60 mg PO TID 05/20/24 05/20/24 History release nicotine 21 mg/24 hr daily 1 patch transdermal DAILY 05/20/24 05/20/24 History transdermal patch ondansetron HCl 8 mg tablet 8 mg PO TID PRN Nausea And Vomiting 05/20/24 05/20/24 History oxycodone 20 mg tablet 10 mg PO Q4H PRN pain 05/20/24 05/20/24 History prednisone 10 mg tablet 10 mg PO AC 05/20/24 05/20/24 History senna-docusate sodium tablet 2 tablet PO BID 05/20/24 05/20/24 History sodium phosphates 19 gram-7 118 ml RECTAL PRN constipation 05/20/24 05/20/24 History gram/118 mL enema (Fleet Enema) trazodone 100 mg tablet 100 mg PO HS 05/20/24 05/20/24 History Allergies Allergy/AdvReac Type Severity Reaction Status Date / Time ceftriaxone AdvReac Itching Verified 04/01/24 21:11 ciprofloxacin AdvReac Itching Verified 04/01/24 21:11 Vital Signs Vital Signs - 24 hr 05/19/24 16:04 05/19/24 21:42 05/19/24 21:53 Temperature 97.8 F Pulse Rate 118 H 112 H 116 H Respiratory Rate 18 15 15 Blood Pressure 99/62 L 92/50 L Pulse Oximetry 98 96 98 Oxygen Delivery Room Air Oxygen Flow Rate 05/19/24 22:56 05/20/24 00:00 05/20/24 01:27 Temperature Pulse Rate 112 H 99 Respiratory Rate 21 H Blood Pressure 92/60 L 79/59 L Pulse Oximetry 99 94 Oxygen Delivery Nasal Cannula Oxygen Flow Rate 2 05/20/24 00:00 05/19/24 23:20 05/20/24 02:00 Temperature 98.0 F Pulse Rate 109 H 115 H 82 Respiratory Rate 16 Blood Pressure 81/58 L Pulse Oximetry 91 Oxygen Delivery Oxygen Flow Rate 05/20/24 02:00 05/19/24 23:30 05/20/24 02:46 Temperature 98.0 F Pulse Rate 82 80 Respiratory Rate 16 18 Blood Pressure 84/57 L 86/63 L Pulse Oximetry 100 95 98 Oxygen Delivery Nasal Cannula Oxygen Flow Rate 2 05/20/24 03:06 05/20/24 03:45 05/20/24 04:00 Temperature 97.5 F L Pulse Rate 79 76 73 Respiratory Rate 14 Blood Pressure 87/54 L 84/50 L 108/65 Pulse Oximetry 100 Oxygen Delivery Oxygen Flow Rate 05/20/24 04:06 05/20/24 05:06 05/20/24 05:23 Temperature 98.3 F 98.0 F 98.0 F Pulse Rate 73 76 83 Respiratory Rate 16 17 14 Blood Pressure 122/67 108/64 109/60 Pulse Oximetry 97 92 83 L Oxygen Delivery Oxygen Flow Rate 05/20/24 04:00 05/20/24 04:00 05/20/24 06:00 Temperature 98.2 F Pulse Rate 73 79 Respiratory Rate 18 17 Blood Pressure 108/65 86/55 L Pulse Oximetry 97 97 95 Oxygen Delivery Nasal Cannula Oxygen Flow Rate 2 05/20/24 06:00 05/20/24 06:00 05/20/24 04:00 Temperature Pulse Rate 79 89 73 Respiratory Rate Blood Pressure 86/55 L Pulse Oximetry Oxygen Delivery Oxygen Flow Rate 05/20/24 08:00 05/20/24 09:24 05/20/24 09:30 Temperature 98.3 F 98.2 F Pulse Rate 68 73 75 Respiratory Rate 16 18 Blood Pressure 104/63 113/60 113/60 Pulse Oximetry 98 97 Oxygen Delivery Oxygen Flow Rate 05/20/24 08:00 05/20/24 09:32 05/20/24 09:39 Temperature 98.4 F Pulse Rate 70 74 70 Respiratory Rate 20 Blood Pressure 101/65 107/62 107/62 Pulse Oximetry 95 Oxygen Delivery Oxygen Flow Rate 05/20/24 10:39 05/20/24 10:00 05/20/24 10:00 Temperature 98.4 F Pulse Rate 71 68 68 Respiratory Rate 20 Blood Pressure 97/51 L 94/51 L 94/51 L Pulse Oximetry 96 Oxygen Delivery Oxygen Flow Rate 05/20/24 10:00 05/20/24 08:00 05/20/24 10:00 Temperature Pulse Rate 68 67 68 Respiratory Rate 18 Blood Pressure 94/51 L Pulse Oximetry 98 Oxygen Delivery Oxygen Flow Rate 05/20/24 08:00 05/20/24 11:39 05/20/24 11:59 Temperature 98.7 F 98.8 F Pulse Rate 76 73 Respiratory Rate 18 20 Blood Pressure 95/52 L 99/61 L Pulse Oximetry 96 90 96 Oxygen Delivery Nasal Cannula Oxygen Flow Rate 2 05/20/24 12:00 Temperature 98.4 F Pulse Rate 72 Respiratory Rate 19 Blood Pressure 108/64 Pulse Oximetry 94 Oxygen Delivery Oxygen Flow Rate Exam Narrative: Awake and alert, cooperative. Const: General: in distress Resp: Effort & Inspection: normal respiratory effort Cardio: Rate: regular rate GI: GI Palp: Yes Soft to palpation, No Tenderness to palpation present (GI) and No Guarding due to palpation present (GI) Neuro: Speech: normal speech Psych: Mental Status: mental status grossly normal Results Labs 05/20/24 05:57 05/20/24 05:57 Labs: Short CBC 05/19/24 05/19/24 05/20/24 Range/Units 19:16 23:53 05:57 WBC 17.3 H 11.4 H (4.5-10.0) K/mm3 Hgb 10.6 L 6.8 L* D 7.0 L (14.0-18.0) g/dL Hct 34.7 L 22.2 L 21.9 L (42.0-52.0) % Plt Count 366 D 183 (150-375) k/mm3 BMP 05/19/24 05/19/24 05/20/24 19:16 23:53 05:57 Sodium 131 L 132 L 136 L Potassium 6.6 H* 5.5 H 4.8 Chloride 91 L 96 L 99 Carbon Dioxide 31 H 34 H 33 H BUN 119 H D 120 H 123 H Creatinine 1.70 H 1.50 H 1.60 H Glucose 344 H 122 H 144 H Calcium 8.4 7.4 L 7.8 L Liver Function 05/19/24 05/20/24 05/20/24 Range/Units 19:16 05:57 05:57 Total Bilirubin 0.9 0.9 (0.2-1.3) mg/dL AST 48 40 (17-59) U/L ALT 25 17 (6-50) U/L Alkaline Phosphatase 144 H 91 (38-126) U/L Albumin 3.6 3.1 L 3.1 L (3.5-5.1) g/dL
[2024-05-20] MEDS: CENTRAL LINE FLUSH 10 ML IV PUSH ×2 (13:49→22:09)
[2024-05-20] MEDS: LACTATED RINGERS 1,000 ML 150 ML IV CONT (14:04)
--- NOTE | 2024-05-20 14:34 | P.PNAN_ITS ---
Anes - Initial Pre Proc Eval Procedure: Operation Date: 05/20/24 14:30 Proposed Procedures p Esophagogastroduodenoscopy - Shon Duran MD Date/Time: 05/20/24 14:34 Surgeon: Maryan Ortiz DO Pre Op Diagnosis: GI Bleed, hyperkalemia Patient Data Age: 54 Gender: M Height: 1.63 m Weight: 74.3 kg Last Vital Signs Temp 98.1 F 05/20/24 13:39 Pulse 63 05/20/24 14:00 Resp 28 H 05/20/24 14:00 BP 108/81 05/20/24 14:00 Pulse Ox 96 05/20/24 14:03 O2 Del Method Nasal Cannula 05/20/24 14:03 O2 Flow Rate 2 05/20/24 14:03 Allergies Allergy/AdvReac Type Severity Reaction Status Date / Time ceftriaxone AdvReac Itching Verified 04/01/24 21:11 ciprofloxacin AdvReac Itching Verified 04/01/24 21:11 Home Medications Medication Instructions Recorded Confirmed Type potassium chloride 20 mEq 20 meq PO BID 04/11/22 05/20/24 History tablet,extended release(part/cryst) pantoprazole 40 mg tablet,delayed 40 mg PO Q12HR #60 tabs 07/09/22 05/20/24 Rx release furosemide 40 mg tablet 100 mg PO BID 08/25/22 05/20/24 History spironolactone 50 mg tablet 125 mg PO Q12H 04/13/23 05/20/24 History (Aldactone) Ridge Multivitamins/Minerals 1 tablet PO DAILY 05/20/24 05/20/24 History Miralax 17 g PO DAILY 05/20/24 05/20/24 History cholestyramine-aspartame 4 gram 1 ea PO PRN PRN Diarrhea 05/20/24 05/20/24 History oral powder for susp in a packet (Cholestyramine Light) divalproex 500 mg tablet,extended 500 mg PO BID 05/20/24 05/20/24 History release 24 hr (Depakote ER) ferrous sulfate 325 mg (65 mg 325 mg PO DAILY 05/20/24 05/20/24 History iron) tablet insulin glargine 10 units subcut HS 05/20/24 05/20/24 History insulin lispro 100 unit/mL 1 sliding scale dose subcut 05/20/24 05/20/24 History subcutaneous pen USEASDIRECTD insulin lispro protamine-lispro 5 unit subcut AC 05/20/24 05/20/24 History 100 unit/mL (75-25) subcutaneous pen (Humalog Mix 75-25 KwikPen) lactulose 10 gram/15 mL oral 45 ml PO QID 05/20/24 05/20/24 History solution (Enulose) levothyroxine 25 mcg tablet 25 mcg PO DAILY 05/20/24 05/20/24 History lidocaine 5 % topical patch 1 patch topical DAILY 05/20/24 05/20/24 History magnesium citrate (Citroma oral 296 ml PO ONCE 05/20/24 05/20/24 History solution) magnesium hydroxide 400 mg/5 mL 30 ml PO PRN PRN Constipation 05/20/24 05/20/24 History oral suspension (Milk of Magnesia) magnesium oxide 400 mg PO DAILY 05/20/24 05/20/24 History midodrine 2.5 mg tablet 5 mg PO TID PRN Hypotension 05/20/24 05/20/24 History morphine 60 mg tablet,extended 60 mg PO TID 05/20/24 05/20/24 History release nicotine 21 mg/24 hr daily 1 patch transdermal DAILY 05/20/24 05/20/24 History transdermal patch ondansetron HCl 8 mg tablet 8 mg PO TID PRN Nausea And Vomiting 05/20/24 05/20/24 History oxycodone 20 mg tablet 10 mg PO Q4H PRN pain 05/20/24 05/20/24 History prednisone 10 mg tablet 10 mg PO AC 05/20/24 05/20/24 History senna-docusate sodium tablet 2 tablet PO BID 05/20/24 05/20/24 History sodium phosphates 19 gram-7 118 ml RECTAL PRN constipation 05/20/24 05/20/24 History gram/118 mL enema (Fleet Enema) trazodone 100 mg tablet 100 mg PO HS 05/20/24 05/20/24 History Laboratory Tests 05/19/24 05/19/24 05/19/24 19:16 19:30 20:18 WBC 17.3 H K/mm3 (4.5-10.0) RBC 3.97 L M/mm3 (4.6-6.20) Hgb 10.6 L g/dL (14.0-18.0) Hct 34.7 L % (42.0-52.0) MCV 87.4 fl (80-100) MCH 26.7 pg (26-34) MCHC 30.5 L g/dl (32-36) RDW 23.0 H % (11.5-14.5) Plt Count 366 D k/mm3 (150-375) MPV 11.1 H fl (7.4-10.4) Immature Gran % (Auto) 1.0 H % (0-0.5) Neut % (Auto) 84.7 H % (45.5-73.1) Lymph % (Auto) 6.6 L % (18.3-44.2) [place] % (Auto) 7.3 % (2.6-8.5) Eos % (Auto) 0.2 % (0-4.4) Baso % (Auto) 0.2 % (0.2-1.2) Lymph # (Auto) 1.14 K/mm3 (0.9-3.2) [place] # (Auto) 1.3 H K/mm3 (0.1-0.6) Eos # (Auto) 0.0 K/mm3 (0-0.3) Baso # (Auto) 0.0 K/mm3 (0.0-0.1) Abs Immat Gran (auto) 0.17 H K/mm3 (0.00-0.031) Absolute Neuts (auto) 14.6 H K/mm3 (1.3-6.7) Absolute Nucleated RBC 0.000 K/mm3 (0.0-0.012) Nucleated RBC % 0.0 % (0.0-0.2) Platelet Estimate Adequate (Adequate) Hypochromasia 1+ Anisocytosis 1+ Ovalocytes 1+ Schistocytes None seen PT 15.3 H Seconds (11.1-14.7) INR 1.2 APTT 26.6 Seconds (22.3-36.8) Sodium 131 L mmol/L (137-145) Potassium 6.6 H* mmol/L (3.4-5.0) Chloride 91 L mmol/L (98-107) Carbon Dioxide 31 H mmol/L (22-30) Anion Gap 9 mmol/L (4-12) BUN 119 H D mg/dL (9-20) Creatinine 1.70 H mg/dL (0.7-1.3) Estim Creat Clear Calc 40 ml/min Estimated GFR 42 L (59 - ) Glucose 344 H mg/dL (65-110) POC Capillary Glucose Lactic Acid 4.0 H mmol/L (0.7-2.0) Calcium 8.4 mg/dL (8.4-10.2) Total Bilirubin 0.9 mg/dL (0.2-1.3) AST 48 U/L (17-59) ALT 25 U/L (6-50) Alkaline Phosphatase 144 H U/L (38-126) Ammonia 94 H umol/L (9-30) Total Protein 6.0 L g/dL (6.3-8.2) Albumin 3.6 g/dL (3.5-5.1) Lipase 42 U/L (23-300) Nasal MRSA (PCR) Blood Type AB Positive Antibody Screen Positive Antibody Identification Anti-E Antigen Identification E Antigen - NEGATIVE ISAURO, IgG Interpret Negative ISAURO, Poly Interpret Not Performed ISAURO, Complement Interp Negative Enhanced Crossmatch See Detail 05/19/24 05/19/24 05/20/24 22:47 23:53 00:42 WBC RBC Hgb 6.8 L* D g/dL (14.0-18.0) Hct 22.2 L % (42.0-52.0) MCV MCH MCHC RDW Plt Count MPV Immature Gran % (Auto) Neut % (Auto) Lymph % (Auto) [place] % (Auto) Eos % (Auto) Baso % (Auto) Lymph # (Auto) [place] # (Auto) Eos # (Auto) Baso # (Auto) Abs Immat Gran (auto) Absolute Neuts (auto) Absolute Nucleated RBC Nucleated RBC % Platelet Estimate Hypochromasia Anisocytosis Ovalocytes Schistocytes PT INR APTT Sodium 132 L mmol/L (137-145) Potassium 5.5 H mmol/L (3.4-5.0) Chloride 96 L mmol/L (98-107) Carbon Dioxide 34 H mmol/L (22-30) Anion Gap 2 L mmol/L (4-12) BUN 120 H mg/dL (9-20) Creatinine 1.50 H mg/dL (0.7-1.3) Estim Creat Clear Calc 43 ml/min Estimated GFR 49 L (59 - ) Glucose 122 H mg/dL (65-110) POC Capillary Glucose 131 H mg/dl (65-105) Lactic Acid 2.0 mmol/L (0.7-2.0) Calcium 7.4 L mg/dL (8.4-10.2) Total Bilirubin AST ALT Alkaline Phosphatase Ammonia Total Protein Albumin Lipase Nasal MRSA (PCR) Not detected (NOT DETECTE) Blood Type Antibody Screen Antibody Identification Antigen Identification ISAURO, IgG Interpret ISAURO, Poly Interpret ISAURO, Complement Interp Enhanced Crossmatch 05/20/24 05/20/24 05/20/24 05:57 05:57 05:57 WBC 11.4 H K/mm3 (4.5-10.0) RBC 2.52 L M/mm3 (4.6-6.20) Hgb 7.0 L g/dL (14.0-18.0) Hct 21.9 L % (42.0-52.0) MCV 86.9 fl (80-100) MCH 27.8 pg (26-34) MCHC 32.0 g/dl (32-36) RDW 21.5 H % (11.5-14.5) Plt Count 183 k/mm3 (150-375) MPV 11.3 H fl (7.4-10.4) Immature Gran % (Auto) 0.6 H % (0-0.5) Neut % (Auto) 71.6 % (45.5-73.1) Lymph % (Auto) 14.8 L % (18.3-44.2) [place] % (Auto) 11.8 H % (2.6-8.5) Eos % (Auto) 0.7 % (0-4.4) Baso % (Auto) 0.5 % (0.2-1.2) Lymph # (Auto) 1.68 K/mm3 (0.9-3.2) [place] # (Auto) 1.3 H K/mm3 (0.1-0.6) Eos # (Auto) 0.1 K/mm3 (0-0.3) Baso # (Auto) 0.1 K/mm3 (0.0-0.1) Abs Immat Gran (auto) 0.07 H K/mm3 (0.00-0.031) Absolute Neuts (auto) 8.2 H K/mm3 (1.3-6.7) Absolute Nucleated RBC 0.000 K/mm3 (0.0-0.012) Nucleated RBC % 0.0 % (0.0-0.2) Platelet Estimate Hypochromasia Anisocytosis Ovalocytes Schistocytes PT INR APTT Sodium 136 L mmol/L (137-145) Potassium 4.8 mmol/L (3.4-5.0) Chloride 99 mmol/L (98-107) Carbon Dioxide 33 H mmol/L (22-30) Anion Gap 4 mmol/L (4-12) BUN 123 H mg/dL (9-20) Creatinine 1.60 H mg/dL (0.7-1.3) Estim Creat Clear Calc 40 ml/min Estimated GFR 45 L (59 - ) Glucose 144 H mg/dL (65-110) POC Capillary Glucose Lactic Acid Calcium 7.8 L mg/dL (8.4-10.2) Total Bilirubin 0.9 mg/dL (0.2-1.3) AST 40 U/L (17-59) ALT 17 U/L (6-50) Alkaline Phosphatase 91 U/L (38-126) Ammonia 11 umol/L Cancelled (9-30) Total Protein 5.0 L g/dL (6.3-8.2) Albumin 3.1 L g/dL 3.1 L g/dL (3.5-5.1) (3.5-5.1) Lipase Nasal MRSA (PCR) Blood Type Antibody Screen Antibody Identification Antigen Identification ISAURO, IgG Interpret ISAURO, Poly Interpret ISAURO, Complement Interp Enhanced Crossmatch 05/20/24 11:48 WBC RBC Hgb Hct MCV MCH MCHC RDW Plt Count MPV Immature Gran % (Auto) Neut % (Auto) Lymph % (Auto) [place] % (Auto) Eos % (Auto) Baso % (Auto) Lymph # (Auto) [place] # (Auto) Eos # (Auto) Baso # (Auto) Abs Immat Gran (auto) Absolute Neuts (auto) Absolute Nucleated RBC Nucleated RBC % Platelet Estimate Hypochromasia Anisocytosis Ovalocytes Schistocytes PT INR APTT Sodium Potassium Chloride Carbon Dioxide Anion Gap BUN Creatinine Estim Creat Clear Calc Estimated GFR Glucose POC Capillary Glucose 177 H mg/dl (65-105) Lactic Acid Calcium Total Bilirubin AST ALT Alkaline Phosphatase Ammonia Total Protein Albumin Lipase Nasal MRSA (PCR) Blood Type Antibody Screen Antibody Identification Antigen Identification ISAURO, IgG Interpret ISAURO, Poly Interpret ISAURO, Complement Interp Enhanced Crossmatch Patient hx anesthesia problems: none Family hx anesthesia problems: none Results Review: All pre-operative results and documents have been reviewed as part of the pre- operative evaluation. [facility] Past Medical History Medical History Arthritis C. difficile colitis (~2021) Cerebrovascular accident (2004) Chronic anemia Cirrhosis of liver with ascites Closed fracture of left proximal humerus Deep vein thrombosis of axillary vein of left upper extremity (03/2023) Diarrhea Diastolic congestive heart failure Esophageal varices Gastric ulcer Gastroesophageal reflux disease GI bleed Hypertension HU (iron deficiency anemia) Kidney stone Leukemia In childhood. Pancreatic abnormality Pericardial effusion Noted on CT and echocardiogram in August 2020. No evidence of tamponade. Portal hypertensive gastropathy Noted on endoscopy on 03/23/[address] Duran. Prostate cancer Status post radiation seed implantation. Pulmonary emboli (03/2023) Pulmonary hypertension Spontaneous bacterial peritonitis (04/2020) Tobacco dependence Type 2 diabetes mellitus Umbilical hernia Surgical History Surgical History History of appendectomy History of cholecystectomy History of cystoscopy History of inguinal hernia repair History of lithotripsy History of repair of right rotator cuff Family History Family History Mother Breast cancer Father Acute myocardial infarction Heart disease Hypertension Other Diabetes mellitus Maternal Uncle Sibling Family history of malignant neoplasm Social History Social History Social History: Patient has been residing in [facility] since his 's following metastatic breast cancer. He has been residing at a [facility] since July 2023. He still smokes cigarettes every day. He has not drink alcohol in almost 2 years and then denies heavy alcohol use prior to that. Surrogate decision maker: Marnie Washington (aunt) who lives locally or his mother who lives in [facility] Code status: DNR/DNI Smoking packs per day: 0.5 Smoking cigarettes per day: 10.0 Years smoked: 30 Smoking pack-years: 15.00 Smoking status: Current every day smoker Tobacco type: cigarettes Second hand tobacco smoke exposure: No Additional smoking assessment comments: 3 cig per day Alcohol intake: former Drinks per week: 1 Alcohol use details: Former beer drinker. Substance use: never Substance use type: does not use Other substance usage details: DECEMBER 16 2022 LAST DRINK- BEER Do You Feel Safe in your Home?: Yes Lack of Transportation: No Lack of Food: Never True Current Housing: I Have Housing Concerned About Future Housing: No Difficulty Paying Gas/Electric Bills: No Difficulty Paying for Meds: No Currently Unemployed: No Education: Decline to Answer Difficulty w/ Childcare or Family Care: No Living arrangements: with family Additional living arrangements comments: Resides in [place] with his and son. Additional occupation/education comments: On disability. Spiritual care concerns: No Agree to blood products: Yes Anes - Eval Final PreProcedure Day of Procedure 05/20/24 14:34 Patient weight: normal Heart: regular rate and rhythm Lungs: clear to auscultation and decreased breath sounds Airway: Mallampati scale and special considerations (teeth in very poor condition. ) Neurological: alert and oriented Last oral intake: >/= 8 hours ASA classification: IV Emergent: no Anesthetic plan: proceed Anesthesia type and monitoring: general ETT and standard monitoring Results Review: All pre-operative results and documents have been reviewed as part of the pre- operative evaluation. Complicated hx reviewed. Pt w end stage cirrhosis w esop varices, now for emergent EGD and banding. Pt receiving 2 U PRBCs in ICU, on levo gtt at this time. Deemed unstable and in need to be cared for in ICU. Full discussion w ARIANNA acevedo, ICU staff and pt. Pt is DNR, I discussed the suspension of this and goal directed wishes w pt who undertands and wishes to proceed. His mother is POA. Note entered late due to unavailability of computer workstations in the ICU. Informed Consent: The patient's anesthetic plan and its attendant risks and benefits were discussed with the patient/family/POA. Questions were solicited and answers provided to the satisfaction of the patient/family/POA.
[2024-05-20 17:13] LABS: Appearance Peritoneal Fluid Clear (Clear); Source Peritoneal Fluid Peritoneal Fluid
[2024-05-20 17:14] LABS: Color Peritoneal Fluid Yellow (Colorless); Lymphocytes Peritoneal Fluid 70 %; Macrophages Peritoneal Fluid 11 %; Monocytes Peritoneal Fluid 18 %; Neutrophils Peritoneal Fluid 1 % (0-25); Nucleated Cells Peritoneal Flu 9 /uL (0-500); RBC Peritoneal Fluid < 2000 /uL (0-10000)
[2024-05-20 17:55] LABS: Glucose Point of Care 208 mg/dl (65-105)
[2024-05-20] MEDS: INSULIN ASPART (*BKC) 100 UNITS/ML SUB-Q (18:12)
[2024-05-20 18:25] LABS: Hematocrit 22.9 % (42.0-52.0); Hemoglobin 7.5 g/dL (14.0-18.0)
--- NOTE | 2024-05-20 18:51 | PC.NURSE ---
notified Dr. Landaverde of latest hbg of 7.5; also notified that while RN was drawing blood, patient's heart rate dropped to the 30's and went unresponsive but still had pulse. patient did come to and was alert and oriented, heart rate was back in the 70's and blood pressure was 91/57; received orders to transfuse the last unit of blood ordered and draw a BMP and MAG
[2024-05-20 19:24] LABS: Anion Gap 5 mmol/L (4-12); Blood Urea Nitrogen 87 mg/dL (9-20); Calcium 8.5 mg/dL (8.4-10.2); Carbon Dioxide 32 mmol/L (22-30); Chloride 103 mmol/L (98-107); Estimated CRCL calculation 43 ml/min; Estimated Glomerular Filt Rate 49; Glucose 170 mg/dL (65-110); Magnesium 2.6 mg/dL (1.6-2.3); Potassium 3.8 mmol/L (3.4-5.0); Sodium 140 mmol/L (137-145)
[2024-05-20] MEDS: PANTOPRAZOLE SODIUM IV 40 MG VIAL IV PUSH (20:23)
[2024-05-20] MEDS: ONDANSETRON INJ 4 MG/2 ML VIAL IV PUSH (20:55)
[2024-05-20] MEDS: SODIUM CHLORIDE 0.9% IV 250 ML (22:08)
[2024-05-21] VITALS (7 sets, daily range): BP systolic 108–126; BP diastolic 63–72; PULSE 48–84; RESP 14–24; TEMP 36.4–36.6; O2SAT 94–98
[2024-05-21] MEDS: LACTATED RINGERS 1,000 ML 100 ML IV CONT (00:27)
[2024-05-21] MEDS: ALBUMIN HUMAN 25% 25 GM/100 ML 100 ML IVPB (00:27)
[2024-05-21] MEDS: PIPERACILLN/TAZ 3.375GM/NS50ML 3.375 GM/50 ML BAG IVPB (00:28)
[2024-05-21] MEDS: OCTREOTIDE ACETATE 500 MCG in SODIUM CHLORIDE 0.9% IV 99 ML 10 MCG IV CONT (01:38)
[2024-05-21] MEDS: MORPHINE SULFATE (*CRX) 2 MG/ML INJ 4 MG IV PUSH (02:18)
--- NOTE | 2024-05-21 02:48 | PC.NURSE ---
Patient notified this RN that he wanted to withdraw care - he stated he wanted all the drips stopped. Patient asked about his DNR statu and we discussed the differences between doing Pallative and Hospice care. Patient had been previously on hospice and was removed in Mar 2024, there is a consult for hospice to see patient already for today 05/21/24. RN notified Dr. Ortiz and gas station supervisor Kayla of the patient's wishes. New orders were placed. Patient called his mom and had this RN also speak with her to answer questions. Vasopressors and all other drips have been turned off.
--- NOTE | 2024-05-21 03:36 | P.PNCROSS_ITS ---
Event Note Event Note Event Note: Nursing staff notified me that the patient has decided that he does not want any further aggressive interventions. He is known to have end-stage liver disease and was admitted for GI bleed. Despite patient's hemoglobin being stable and no longer having any melenic stools or hematemesis patient's blood pressures remain low and hypotensive on Levophed at 2 and vasopressin. The patient is decided he is tired of being uncomfortable and in pain. He he was not able to receive pain medications due to bradycardia. He already had a hospice consult on the chart. Patient was alert oriented x4 and able to make his own decisions. He had previously been on hospice and hospice was terminated due to patient's improvement in condition. He has now decided that given his declining condition and the fact that he is not improving to the rate at which she would like he would not want to be made comfort measures. Patient agreed eye contact his mother and allow nursing staff to talk to his mother to update them as to his hospital stay. His mother's from [facility] and is now trying to arrange a trip here to be with her son. At this time all lab draws and imaging orders have been canceled. Patient's morphine dose has been increased to 4 mg q.2 hours. Pressors have been discontinued. Will proceed with comfort based treatment and hospice consult in a.m..
[2024-05-21] MEDS: HYDROmorphone HCL INJ (*CRX) 1 MG/ML SYR IV PUSH ×6 (04:21→18:33)
[2024-05-21 04:42] LABS: Glucose Point of Care 137 mg/dl (65-105)
[2024-05-21] MEDS: CENTRAL LINE FLUSH 10 ML IV PUSH ×2 (07:00→15:31)
[2024-05-21] MEDS: NICOTINE (*PBKC) 21 MG PATCH 1 PATCH TRANSDERM (08:56)
[2024-05-21] MEDS: LIDOCAINE 5% PATCH 1 PATCH TOPICAL (08:56)
[2024-05-21] MEDS: LORazepam INJ (*CRX) 2 MG/ML VIAL IV PUSH ×3 (08:57→18:46)
--- NOTE | 2024-05-21 10:34 | PC.NURSE ---
Patient bladder scanned this AM at 0936 for abdominal pain/discomfort. Noted to have 528 mls of residual urine. Patient expressed wishes to not have Russo catheter placed and stated he would try to pee . RN applied purwick to aid with pain/mobility. Physician Dr. Parra updated and made aware. RN to monitor purewick and urine output.
--- NOTE | 2024-05-21 10:52 | PM.DS ---
DS: Admitting Diagnosis Discharge Date 05/21/24 Admitting Diagnosis Vomiting blood, abdominal pain DS: Discharge Diagnosis Discharge Diagnosis (1) Shock: Code(s): R57.9 - Shock, unspecified Status: Acute (2) Acute kidney injury: Code(s): N17.9 - Acute kidney failure, unspecified Status: Acute (3) Acute upper gastrointestinal hemorrhage: Code(s): K92.2 - Gastrointestinal hemorrhage, unspecified Status: Acute (4) Type 2 diabetes mellitus with hyperglycemia, with long-term current use of insulin: Code(s): E11.65 - Type 2 diabetes mellitus with hyperglycemia; Z79.4 - keno terminal operator (current) use of insulin Status: Acute (5) Abdominal ascites: Qualifiers: Ascites type: due to alcoholic cirrhosis Qualified Code(s): K70.31 - Alcoholic cirrhosis of liver with ascites Code(s): R18.8 - Other ascites Status: Acute (6) Cirrhosis of liver: Code(s): K74.60 - Unspecified cirrhosis of liver Status: Acute (7) Acute blood loss anemia: Code(s): D62 - Acute posthemorrhagic anemia Status: Acute (8) Abdominal pain: Code(s): R10.9 - Unspecified abdominal pain Status: Acute (9) Enteritis: Code(s): K52.9 - Noninfective gastroenteritis and colitis, unspecified Status: Acute (10) Hospice care: Code(s): Z51.5 - Encounter for palliative care Status: Acute DS: Summary Hospital Course Reason for hospitalization: 54yo male with 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 Please see H&P for details. Hospital Course: Patient was in shock on presentation likely secondary to acute blood loss. Also concern of SBP but ascitic fluid was negative for infection. Patient received IV fluids and a total of 4U of PRBC transfusion. He was started on pressor support. Patient also with elevated creatinine likely secondary to hypotension and acute blood loss. CT scan of the abdomen did not show any obstruction or stones. Patient presented with hematemesis likely secondary to varices. He was started on octreotide infusion and IV Protonix. GI consulted and EGD performed. EGD showed Grade III varices with red sign present. A SpeedBand [address] 4 bands successfully. Patient complained of chronic recurrent abdominal pain. CT scan of the abdomen also showed thickening of small-bowel loops and transverse colon suggestive of enteritis. He was started on Zosyn. Paracentesis with 350mL removed. Studies not consistent with SBP. He was found to have 500mL by bladder scan. Multani placed. Patient is awake, alert and oreinted. He was deemed to be able to make his own medical decisions. He decided to proceed with comfort measures with hospice. He has been on hospice in the past so is aware of what this means. Care coordination consulted and arrangements made. He was able to be transferred back to the facility on hospice care. Status at Discharge Cognitive/behavioral status at discharge: stable Time Spent with Patient Time attestation: Total time spent providing and/or coordinating discharge services:39 minutes Time spent: Greater than 30 minutes Exam Narrative: AF 98.0 120/70 78 19 95% nc Gen - NARD Chest - Clear anteriorly and in the flanks. CV - RRR S1/S2 Abd - Soft, protuberant, diffusely tender. Ext - No pedal edema Neuro - Alert and oriented. Nonfocal exam. Psych - Nml mood and affect Skin - Warm and dry DS: Data Data Completed and Pending Labs on day of discharge: Labs from last 24 hours 05/21/24 05/20/24 05/20/24 00:26 19:03 18:20 Hgb 7.5 L Hct 22.9 L Sodium 140 Potassium 3.8 Chloride 103 Carbon Dioxide 32 H Anion Gap 5 BUN 87 H D Creatinine 1.50 H Estim Creat Clear Calc 43 Estimated GFR 49 L Glucose 170 H POC Capillary Glucose 137 H Calcium 8.5 Magnesium 2.6 H Peritoneal Source Peritoneal Color Peritoneal Appearance Peritoneal RBC Periton Nuc Cells Periton Neutrophils Periton Lymphocytes Peritoneal Monocytes Periton Macrophages Peritoneal Albumin Peritoneal LDH Peritoneal Glucose Blood Type Antibody Screen Antibody Identification Antigen Identification ISAURO, IgG Interpret ISAURO, Complement Interp Enhanced Crossmatch 05/20/24 05/20/24 05/20/24 17:52 16:40 11:48 Hgb Hct Sodium Potassium Chloride Carbon Dioxide Anion Gap BUN Creatinine Estim Creat Clear Calc Estimated GFR Glucose POC Capillary Glucose 208 H 177 H Calcium Magnesium Peritoneal Source Peritoneal fluid Peritoneal Color Yellow Peritoneal Appearance Clear Peritoneal RBC < 2000 Periton Nuc Cells 9 Periton Neutrophils 1 Periton Lymphocytes 70 Peritoneal Monocytes 18 Periton Macrophages 11 Peritoneal Albumin Pending Peritoneal LDH Pending Peritoneal Glucose Pending Blood Type Antibody Screen Antibody Identification Antigen Identification ISAURO, IgG Interpret ISAURO, Complement Interp Enhanced Crossmatch 05/19/24 19:30 Hgb Hct Sodium Potassium Chloride Carbon Dioxide Anion Gap BUN Creatinine Estim Creat Clear Calc Estimated GFR Glucose POC Capillary Glucose Calcium Magnesium Peritoneal Source Peritoneal Color Peritoneal Appearance Peritoneal RBC Periton Nuc Cells Periton Neutrophils Periton Lymphocytes Peritoneal Monocytes Periton Macrophages Peritoneal Albumin Peritoneal LDH Peritoneal Glucose Blood Type AB Positive Antibody Screen Positive Antibody Identification Anti-E Antigen Identification E Antigen - NEGATIVE ISAURO, IgG Interpret Negative ISAURO, Complement Interp Negative Enhanced Crossmatch See Detail Preliminary micro results at discharge 05/20/24 16:40 Anaerobic Culture - Preliminary Ascites Fluid Discharge Plan Discharge Attending physician on discharge: Xu Parra Consulting providers: Buddy Landaverde; Liborio Garcia Discharging Clinician: Xu Parra Anticipated Discharge Date/Time: 05/21/24 11:09 Patient Disposition: Hospice - Home Activity: as tolerated Diet: regular Discharge Instructions: Hospice to follow at facility Follow-up with the provider at the facility. Routine Multani care. Thank you for using [facility] for your health care needs. Stand Alone Forms: General Discharge Information Discharge Medications: Continued midodrine 2.5 mg tablet 5 mg PO TID PRN (Reason: Hypotension) prednisone 10 mg tablet 10 mg PO AC ondansetron HCl 8 mg tablet 8 mg PO TID PRN (Reason: Nausea And Vomiting) levothyroxine 25 mcg tablet 25 mcg PO DAILY magnesium hydroxide [Milk of Magnesia] 400 mg/5 mL Suspension 30 ml PO PRN PRN (Reason: Constipation) trazodone 100 mg tablet 100 mg PO HS divalproex [Depakote ER] 500 mg Tablet Extended Release 24 Hr 500 mg PO BID lidocaine 5 % adhesive patch,medicated 1 patch topical DAILY Rx Instructions: on for 12 hours and off for 12 hours nicotine 21 mg/24 hr Patch 24 Hour 1 patch TRANSDERMAL DAILY Fleet Enema 19-7 gram/118 mL Enema 118 ml RECTAL PRN magnesium citrate [Citroma] Solution 296 ml PO ONCE Rx Instructions: if no results within an hour of completion of bowel protocol, contact Senna Plus (senna-docusate) Tablet 2 tablet PO BID cholestyramine-aspartame [Cholestyramine Light] 4 gram powder in packet 1 ea PO PRN PRN (Reason: Diarrhea) lactulose [Enulose] 10 gram/15 mL solution 45 ml PO QID Miralax 17 g PO DAILY insulin lispro [Humalog Pen] 100 unit/mL Insulin Pen 1 sliding scale dose SUBCUT USEASDIRECTD morphine 60 mg tablet extended release 60 mg PO TID Qty: 30 0RF pantoprazole 40 mg tablet,delayed release (DR/EC) 40 mg PO Q12HR Qty: 60 2RF Changed oxycodone 20 mg tablet 10 mg PO Q4H PRN (Reason: pain) Qty: 30 0RF Held potassium chloride 20 mEq tablet,ER particles/crystals 20 meq PO BID Hold Instructions: HOLD - Resume if okay with provider furosemide 40 mg tablet 100 mg PO BID Hold Instructions: HOLD - Resume if okay with provider spironolactone [Aldactone] 50 mg tablet 125 mg PO Q12H Hold Instructions: HOLD - Resume if okay with provider insulin lispro protamin-lispro [Humalog Mix 75-25 KwikPen] 100 unit/mL (75-25) insulin pen 5 unit SUBCUT AC Hold Instructions: HOLD - Resume if okay with provider Rx Instructions: Hold if BS less than 100, notify MD if less than 50 or greater than 500 insulin glargine 10 units subcut HS Hold Instructions: HOLD - Resume if okay with provider Discontinued ferrous sulfate 325 mg (65 mg iron) Tablet 325 mg PO DAILY magnesium oxide 400 mg magnesium Tablet 400 mg PO DAILY Ridge Multivitamins/Minerals 1 tablet PO DAILY Date of admission: 05/19/24 22:10 Primary Care Provider: BisiMatt Admitting Provider: Maryan Ortiz Attending physician on admission: Maryan Ortiz Condition: Guarded Prognosis Hospitalist MIPS Heart Failure (Exclusion) Patient has history of Heart Transplant or Left Ventricular Assistive Device?: No IF YES, STOP HERE Heart Failure (Qualifier) Patient has current or prior documentation of LVEF less than or equal to 40%, or mod/servere depressed LVSF?: No IF NO, STOP HERE
--- NOTE | 2024-05-21 12:47 | WPDGIPROGNO ---
Progress Note: A&P Assessment and Plan (1) Esophageal varices: Code(s): I85.00 - Esophageal varices without bleeding Status: Acute Assessment and Plan: urgent egd at bedside, 4 bands deployed no more bleeding patient decided for comfort measures (2) Acute upper gastrointestinal hemorrhage: Code(s): K92.2 - Gastrointestinal hemorrhage, unspecified Status: Acute Assessment and Plan: treated with abx, octreotide and EGD with banding (3) Acute blood loss anemia: Code(s): D62 - Acute posthemorrhagic anemia Status: Acute Assessment and Plan: required transfusion and urgent egd (4) Cirrhosis of liver: Code(s): K74.60 - Unspecified cirrhosis of liver Status: Acute (5) Abdominal ascites: Code(s): R18.8 - Other ascites Status: Acute (6) Toxic metabolic encephalopathy: Code(s): G92.8 - Other toxic encephalopathy Status: Acute (7) Hemorrhagic shock: Code(s): R57.8 - Other shock Status: Acute Subjective Date/time seen: 05/21/24 12:47 Interval history: urgent egd yesterday with large EV requiring banding no more bleeding plan for comfort care and discharge later today Review of Systems Review of Systems: All systems reviewed & are unremarkable except as noted in HPI and below Exam Narrative: Gen - chronically ill appearing neck: suple Chest - Clear anteriorly and in the flanks. CV - RRR S1/S2 Abd - Soft, protuberant, diffusely tender. Ext - No pedal edema Neuro - Alert and oriented. Nonfocal exam. Psych - anxious Skin - Warm and dry Objective Data Vital Signs Vital Signs: Vital Signs - 24 hr 05/20/24 13:24 05/20/24 13:39 05/20/24 14:03 Temperature 98.1 F 98.1 F Pulse Rate 66 65 Respiratory Rate 18 15 Blood Pressure 138/83 114/79 Pulse Oximetry 98 94 96 Oxygen Delivery Nasal Cannula Oxygen Flow Rate 2 05/20/24 14:00 05/20/24 14:00 05/20/24 14:00 Temperature Pulse Rate 77 63 63 Respiratory Rate 28 H Blood Pressure 108/81 108/81 Pulse Oximetry 98 Oxygen Delivery Oxygen Flow Rate 05/20/24 14:00 05/20/24 14:43 05/20/24 15:00 Temperature Pulse Rate 63 59 L 80 Respiratory Rate Blood Pressure 108/81 121/65 140/82 Pulse Oximetry Oxygen Delivery Oxygen Flow Rate 05/20/24 15:15 05/20/24 14:39 05/20/24 16:15 Temperature 98.2 F 98.2 F Pulse Rate 88 61 68 Respiratory Rate 22 H 18 Blood Pressure 113/70 121/65 111/68 Pulse Oximetry 96 97 Oxygen Delivery Oxygen Flow Rate 05/20/24 16:00 05/20/24 16:15 05/20/24 16:30 Temperature Pulse Rate 70 68 78 Respiratory Rate Blood Pressure 126/69 111/68 125/73 Pulse Oximetry Oxygen Delivery Oxygen Flow Rate 05/20/24 16:00 05/20/24 16:00 05/20/24 16:00 Temperature Pulse Rate 69 70 Respiratory Rate Blood Pressure 126/69 Pulse Oximetry 96 Oxygen Delivery Nasal Cannula Oxygen Flow Rate 3 05/20/24 16:00 05/20/24 18:00 05/20/24 18:00 Temperature 98.1 F Pulse Rate 70 76 76 Respiratory Rate 18 20 Blood Pressure 126/69 91/57 L Pulse Oximetry 96 98 Oxygen Delivery Oxygen Flow Rate 05/20/24 18:30 05/20/24 18:00 05/20/24 20:00 Temperature Pulse Rate 76 76 99 Respiratory Rate Blood Pressure 91/57 L 91/57 L 99/72 L Pulse Oximetry Oxygen Delivery Oxygen Flow Rate 05/20/24 20:00 05/20/24 19:01 05/20/24 19:16 Temperature Pulse Rate 99 66 64 Respiratory Rate 15 13 Blood Pressure 99/72 L 96/64 L 107/63 Pulse Oximetry 95 98 Oxygen Delivery Oxygen Flow Rate 05/20/24 19:31 05/20/24 19:45 05/20/24 19:46 Temperature Pulse Rate 60 67 67 Respiratory Rate 15 19 14 Blood Pressure 121/76 116/68 Pulse Oximetry 100 98 100 Oxygen Delivery Oxygen Flow Rate 05/20/24 21:59 05/20/24 21:55 05/20/24 22:00 Temperature 98.0 F 98 F Pulse Rate 59 L 60 62 Respiratory Rate 22 H 20 Blood Pressure 123/65 125/65 122/67 Pulse Oximetry 96 97 Oxygen Delivery Oxygen Flow Rate 05/20/24 22:00 05/20/24 20:00 05/20/24 22:00 Temperature Pulse Rate 62 72 61 Respiratory Rate Blood Pressure 122/67 Pulse Oximetry Oxygen Delivery Oxygen Flow Rate 05/20/24 20:00 05/20/24 22:00 05/20/24 20:00 Temperature 98 F Pulse Rate 81 61 Respiratory Rate 15 21 H Blood Pressure 99/72 L 122/67 Pulse Oximetry 100 97 100 Oxygen Delivery Nasal Cannula Oxygen Flow Rate 3 05/21/24 00:00 05/21/24 00:00 05/20/24 23:01 Temperature Pulse Rate 53 L 53 L 68 Respiratory Rate 17 Blood Pressure 116/63 116/63 117/67 Pulse Oximetry 98 Oxygen Delivery Oxygen Flow Rate 05/21/24 00:01 05/20/24 22:16 05/20/24 22:31 Temperature Pulse Rate 50 L 56 L 57 L Respiratory Rate 23 H 21 H 26 H Blood Pressure 116/63 105/62 101/48 L Pulse Oximetry 98 100 98 Oxygen Delivery Oxygen Flow Rate 05/21/24 02:00 05/21/24 02:00 05/21/24 00:00 Temperature Pulse Rate 66 66 Respiratory Rate Blood Pressure 108/66 108/66 Pulse Oximetry 94 Oxygen Delivery Nasal Cannula Oxygen Flow Rate 3 05/21/24 00:00 05/21/24 04:00 05/21/24 04:00 Temperature Pulse Rate 48 L 84 Respiratory Rate 24 H Blood Pressure Pulse Oximetry 95 98 Oxygen Delivery Nasal Cannula Oxygen Flow Rate 3 05/21/24 08:00 05/21/24 08:00 Temperature Pulse Rate 78 Respiratory Rate 19 Blood Pressure 120/70 Pulse Oximetry 95 95 Oxygen Delivery Nasal Cannula Oxygen Flow Rate 2 Intake/Output Intake/Output: Intake & Output 05/18/24 05/19/24 05/20/24 05/21/24 23:59 23:59 23:59 23:59 Intake Total 2150 3741.2 1612.9 Output Total 2450 1000 Balance 2150 1291.2 612.9 Meds/Results Medications: Active Medications Generic Name Dose Route Start Last Admin Trade Name Freq PRN Reason Stop Dose Admin Hydromorphone HCl 1 mg 05/21/24 03:49 05/21/24 12:13 Hydromorphone Hcl Inj (*Crx) 1 Mg/Ml Syr IV PUSH 1 mg Q2H PRN Administration Pain Rated 7-10 Lidocaine 1 patch 05/20/24 09:00 05/21/24 08:56 Lidocaine 5% Patch TOPICAL 1 patch DAILY FORTINO Administration Lorazepam 2 mg 05/21/24 01:56 05/21/24 08:57 Lorazepam Inj (*Crx) 2 Mg/Ml Vial IV PUSH 2 mg Q2H PRN Administration Anxiety/Comfort Nicotine 1 patch 05/20/24 09:00 05/21/24 08:56 Nicotine (*Pbkc) 21 Mg Patch TRANSDERM 1 patch DAILY FORTINO Administration Ondansetron HCl 4 mg 05/19/24 22:08 05/20/24 20:55 Ondansetron Inj 4 Mg/2 Ml Vial IV PUSH 4 mg Q4H PRN Administration Nausea Sodium Chloride 10 ml 05/20/24 14:00 05/21/24 07:00 Central Line Flush IV PUSH 10 ml Q8HR FORTINO Administration Sodium Chloride 20 ml 05/20/24 06:46 Central Line Flush IV PUSH PRN PRN after blood draws Radiology Results: ITS Impressions Chest X-Ray 05/19/24 17:10 IMPRESSION: 1. No acute cardiopulmonary disease. Abdomen/Pelvis CT 05/19/24 21:12 IMPRESSION: 1. Liver cirrhosis. 2. Borderline splenomegaly. 3. Ascites 4. Thickening of the wall of the small bowel loops in the left side with slight thickening of the wall of the transverse colon. Enteritis and possibly colitis is highly suggestive. 5. Healing Fractures in the superior and inferior pubic rami. 6. Left adrenal adenoma unchanged. 7. Thickening in the area of the duodenal bulb. Gastroscopy is advised. Paracentesis Ultrasound 05/21/24 05:42 IMPRESSION: 1. Successful ultrasound-guided paracentesis yielding 350 mL of yellow fluid. Labs Labs: Laboratory Results - last 24 hr 05/19/24 05/20/24 05/20/24 19:30 16:40 17:52 Hgb Hct Sodium Potassium Chloride Carbon Dioxide Anion Gap BUN Creatinine Estim Creat Clear Calc Estimated GFR Glucose POC Capillary Glucose 208 H Calcium Magnesium Peritoneal Source Peritoneal fluid Peritoneal Color Yellow Peritoneal Appearance Clear Peritoneal RBC < 2000 Periton Nuc Cells 9 Periton Neutrophils 1 Periton Lymphocytes 70 Peritoneal Monocytes 18 Periton Macrophages 11 Blood Type AB Positive Antibody Screen Positive Antibody Identification Anti-E Antigen Identification E Antigen - NEGATIVE ISAURO, IgG Interpret Negative ISAURO, Complement Interp Negative Enhanced Crossmatch See Detail 05/20/24 05/20/24 05/21/24 18:20 19:03 00:26 Hgb 7.5 L Hct 22.9 L Sodium 140 Potassium 3.8 Chloride 103 Carbon Dioxide 32 H Anion Gap 5 BUN 87 H D Creatinine 1.50 H Estim Creat Clear Calc 43 Estimated GFR 49 L Glucose 170 H POC Capillary Glucose 137 H Calcium 8.5 Magnesium 2.6 H Peritoneal Source Peritoneal Color Peritoneal Appearance Peritoneal RBC Periton Nuc Cells Periton Neutrophils Periton Lymphocytes Peritoneal Monocytes Periton Macrophages Blood Type Antibody Screen Antibody Identification Antigen Identification ISAURO, IgG Interpret ISAURO, Complement Interp Enhanced Crossmatch
[2024-05-24 07:09] LABS: Glucose Point of Care 325 mg/dl (65-105)
[2024-05-27 19:23] LABS: LDH Peritoneal Fluid 10 U/L (<63)
[2024-05-28 21:02] LABS: Albumin Peritoneal Fluid 0.4 g/dL; Glucose Peritoneal Fluid 214 mg/dL
== END 2024-05-21 18:58 | disposition hospice, home (50) | DRG 368 ==
LOC: ANHED 22:04 → ANHICU 22:38
PROVIDERS: Internal Medicine; Internal Medicine Gastroenterology; Physician Assistant; Admitting Provider Internal Medicine; Emergency Provider Emergency Medicine; PCP Hospitalist; Visit Provider Internal Medicine
PROC: 0DJ08ZZ Inspection of Upper Intestinal Tract, Via Natural or Artificial Opening Endoscopic (ICD-10-PCS; CPT 43235; principal; 2024-05-20 14:30)
DX: I85.01 Esophageal varices with bleeding (principal); R57.8 Other shock; D62 Acute posthemorrhagic anemia; I50.32 Chronic diastolic (congestive) heart failure; N17.9 Acute kidney failure, unspecified; K29.70 Gastritis, unspecified, without bleeding; M19.90 Unspecified osteoarthritis, unspecified site; K70.31 Alcoholic cirrhosis of liver with ascites; K76.82 Hepatic encephalopathy; K52.9 Noninfective gastroenteritis and colitis, unspecified; E11.65 Type 2 diabetes mellitus with hyperglycemia; K21.9 Gastro-esophageal reflux disease without esophagitis; E87.5 Hyperkalemia; I11.0 Hypertensive heart disease with heart failure; F17.210 Nicotine dependence, cigarettes, uncomplicated; Z85.6 Personal history of leukemia; Z79.01 Long term (current) use of anticoagulants; Z86.73 Personal history of transient ischemic attack (TIA), and cerebral infarction without residual deficits; Z85.46 Personal history of malignant neoplasm of prostate; Z90.49 Acquired absence of other specified parts of digestive tract; Z79.4 Long term (current) use of insulin; Z51.5 Encounter for palliative care
CPT/HCPCS: 36415; 36430; 49083; 71046; 74177; 80048; 80053; 82040; 82042; 82140; 82945; 82948; 83605; 83615; 83690; 83735; 85014; 85018; 85025; 85610; 85730; 86850; 86880; 86900; 86901; 86902; 86922; 87070; 87075; 87205; 87641; 89051; 96365; 96366; 96367; 96375; 99285; A9270; C1751; J0612; J1171; J1815; J2003; J2060; J2270; J2354; J2405; J2470; J2543; J2704; J3411; J7030; J7040; J7050; J7120; P9016; P9047; Q9967

== ENCOUNTER 2024-05-22 23:37 | Emergency (ER) | payer MEDICARE, MEDICAID, SELFPAY ==
[2024-05-22 23:43] VITALS: BP 120/82; PULSE 91; RESP 16; TEMP 36.6; O2SAT 95
[2024-05-23 00:09] VITALS: BP 113/85; PULSE 98; RESP 17; O2SAT 95
[2024-05-23 00:13] LABS: Basophils Percent Auto 0.2 % (0.2-1.2); Eosinophils Absolute Auto 0.1 K/mm3 (0-0.3); Eosinophils Percent Auto 1.4 % (0-4.4); Hematocrit 31.3 % (42.0-52.0); Hemoglobin 10.1 g/dL (14.0-18.0); Immature Granulocyte Absolute 0.03 K/mm3 (0.00-0.031); Immature Granulocyte Percent A 0.5 % (0-0.5); Immature Platelet Fraction Pct 8.6 % (0.9-11.2); Lymphocytes Absolute Auto 0.62 K/mm3 (0.9-3.2); Lymphocytes Percent Auto 11.1 % (18.3-44.2); Mean Corpuscular HGB Conc 32.3 g/dl (32-36); Mean Corpuscular Hemoglobin 28.8 pg (26-34); Mean Corpuscular Volume 89.2 fl (80-100); Mean Platelet Volume 11.9 fl (7.4-10.4); Monocytes Absolute Auto 0.6 K/mm3 (0.1-0.6); Monocytes Percent Auto 10.9 % (2.6-8.5); Neutrophils Absolute Auto 4.2 K/mm3 (1.3-6.7); Neutrophils Percent Auto 75.9 % (45.5-73.1); Platelet Count Result 68 k/mm3 (150-375); Red Blood Count 3.51 M/mm3 (4.6-6.20); Red Cell Distribution Width 18.1 % (11.5-14.5); White Blood Count 5.6 K/mm3 (4.5-10.0)
[2024-05-23 00:33] LABS: Platelet Estimate Decreased (Adequate)
[2024-05-23 00:35] LABS: INR 1.1; Prothrombin Time 14.2 Seconds (11.1-14.7)
[2024-05-23 00:36] LABS: Partial Thromboplastin Time 28.9 Seconds (22.3-36.8)
[2024-05-23 00:37] LABS: Anisocytosis 1+; Hypochromasia 1+; Large Platelets Present; Ovalocytes 1+; Platelet Clumps Present; Schistocytes Rare
[2024-05-23 00:39] LABS: Alanine Aminotransferase 24 U/L (6-50); Albumin Level 4.2 g/dL (3.5-5.1); Alkaline Phosphatase 144 U/L (38-126); Anion Gap 7 mmol/L (4-12); Aspartate Amino Transferase 45 U/L (17-59); Bilirubin,Total 0.6 mg/dL (0.2-1.3); Blood Urea Nitrogen 28 mg/dL (9-20); Carbon Dioxide 31 mmol/L (22-30); Chloride 96 mmol/L (98-107); Estimated CRCL calculation 55 ml/min; Estimated Glomerular Filt Rate > 60; Glucose 194 mg/dL (65-110); Potassium 3.7 mmol/L (3.4-5.0); Sodium 134 mmol/L (137-145)
[2024-05-23 01:25] VITALS: BP 103/76; PULSE 87; RESP 16; O2SAT 96
[2024-05-23 02:51] VITALS: BP 102/82; PULSE 92; RESP 19; O2SAT 98
--- NOTE | 2024-05-23 03:25 | ED_ITS ---
HPI - General Adult General Chief complaint: GI Bleed Stated complaint: vomiting blood, abd distended Time Seen by Provider: 05/23/24 00:07 History of Present Illness HPI narrative: this is a 54-year-old male with history of liver disease presenting for possible GI bleed. Patient underwent EGD banding on 05/20 for esophageal varices. He was then discharged the hospital. Today the patient noticed that he had several melanotic stools. He came to the hospital for evaluation. Ivett ent is denying fevers chills chest pain difficulty breathing lightheadedness weakness or abdominal pain. On his last admission the patient was made comfort measures, however he has now changed his mind after talking to his 10-year-old son says that he wants to live. Related Data Home Medications Medication Instructions Recorded Confirmed potassium chloride 20 mEq 20 meq PO BID 04/11/22 05/20/24 tablet,extended release(part/cryst) furosemide 40 mg tablet 100 mg PO BID 08/25/22 05/20/24 spironolactone 50 mg tablet 125 mg PO Q12H 04/13/23 05/20/24 (Aldactone) Miralax 17 g PO DAILY 05/20/24 05/20/24 cholestyramine-aspartame 4 gram 1 ea PO PRN PRN Diarrhea 05/20/24 05/20/24 oral powder for susp in a packet (Cholestyramine Light) divalproex 500 mg tablet,extended 500 mg PO BID 05/20/24 05/20/24 release 24 hr (Depakote ER) insulin glargine 10 units subcut HS 05/20/24 05/20/24 insulin lispro 100 unit/mL 1 sliding scale dose subcut 05/20/24 05/20/24 subcutaneous pen USEASDIRECTD insulin lispro protamine-lispro 5 unit subcut AC 05/20/24 05/20/24 100 unit/mL (75-25) subcutaneous pen (Humalog Mix 75-25 KwikPen) lactulose 10 gram/15 mL oral 45 ml PO QID 05/20/24 05/20/24 solution (Enulose) levothyroxine 25 mcg tablet 25 mcg PO DAILY 05/20/24 05/20/24 lidocaine 5 % topical patch 1 patch topical DAILY 05/20/24 05/20/24 magnesium citrate (Citroma oral 296 ml PO ONCE 05/20/24 05/20/24 solution) magnesium hydroxide 400 mg/5 mL 30 ml PO PRN PRN Constipation 05/20/24 05/20/24 oral suspension (Milk of Magnesia) midodrine 2.5 mg tablet 5 mg PO TID PRN Hypotension 05/20/24 05/20/24 nicotine 21 mg/24 hr daily 1 patch transdermal DAILY 05/20/24 05/20/24 transdermal patch ondansetron HCl 8 mg tablet 8 mg PO TID PRN Nausea And Vomiting 05/20/24 05/20/24 prednisone 10 mg tablet 10 mg PO AC 05/20/24 05/20/24 senna-docusate sodium tablet 2 tablet PO BID 05/20/24 05/20/24 sodium phosphates 19 gram-7 118 ml RECTAL PRN constipation 05/20/24 05/20/24 gram/118 mL enema (Fleet Enema) trazodone 100 mg tablet 100 mg PO HS 05/20/24 05/20/24 Allergies Allergy/AdvReac Type Severity Reaction Status Date / Time ceftriaxone AdvReac Itching Verified 04/01/24 21:11 ciprofloxacin AdvReac Itching Verified 04/01/24 21:11 [facility] Past Medical History Medical History Arthritis C. difficile colitis (~2021) Cerebrovascular accident (2004) Chronic anemia Cirrhosis of liver with ascites Closed fracture of left proximal humerus Deep vein thrombosis of axillary vein of left upper extremity (03/2023) Diarrhea Diastolic congestive heart failure Esophageal varices Gastric ulcer Gastroesophageal reflux disease GI bleed Hypertension HU (iron deficiency anemia) Kidney stone Leukemia In childhood. Pancreatic abnormality Pericardial effusion Noted on CT and echocardiogram in August 2020. No evidence of tamponade. Portal hypertensive gastropathy Noted on endoscopy on 03/23/[address] Duran. Prostate cancer Status post radiation seed implantation. Pulmonary emboli (03/2023) Pulmonary hypertension Spontaneous bacterial peritonitis (04/2020) Tobacco dependence Type 2 diabetes mellitus Umbilical hernia Surgical History Surgical History History of appendectomy History of cholecystectomy History of cystoscopy History of inguinal hernia repair History of lithotripsy History of repair of right rotator cuff Family History Family History Mother Breast cancer Father Acute myocardial infarction Heart disease Hypertension Other Diabetes mellitus Maternal Uncle Sibling Family history of malignant neoplasm Social History Social History Social History: Patient has been residing in senior living since his 's following metastatic breast cancer. He has been residing at a senior living since July 2023. He still smokes cigarettes every day. He has not drink alcohol in almost 2 years and then denies heavy alcohol use prior to that. Surrogate decision maker: Marnie Washington (aunt) who lives locally or his mother who lives in [facility] Code status: DNR/DNI Smoking packs per day: 0.5 Smoking cigarettes per day: 10.0 Years smoked: 30 Smoking pack-years: 15.00 Smoking status: Current every day smoker Tobacco type: cigarettes Second hand tobacco smoke exposure: No Additional smoking assessment comments: 3 cig per day Alcohol intake: former Drinks per week: 1 Alcohol use details: Former beer drinker. Substance use: never Substance use type: does not use Other substance usage details: DECEMBER 16 2022 LAST DRINK- BEER Do You Feel Safe in your Home?: Yes Lack of Transportation: No Lack of Food: Never True Current Housing: I Have Housing Concerned About Future Housing: No Difficulty Paying Gas/Electric Bills: No Difficulty Paying for Meds: No Currently Unemployed: No Education: Decline to Answer Difficulty w/ Childcare or Family Care: No Living arrangements: with family Additional living arrangements comments: Resides in [place] with his and son. Additional occupation/education comments: On disability. Spiritual care concerns: No Agree to blood products: Yes Exam Narrative: APPEARANCE: Jaundiced Head: atraumatic. EYES: EOMI, NOSE: Atraumatic NECK: Trachea midline RESPIRATORY: No increased rate of breathing CARDIOVASCULAR: RRR, ABDOMINAL: distended, nontender no guarding or rebound Digital rectal exam: brown stool in the rectal vault, Hemoccult positive MUSCULOSKELETAl: No obvious deformities NEURO: Alert. Moving 4/4 extremities SKIN:: Warm, dry. Normal color PSYCHIATRIC: Normal affect Course Vital Signs Vital signs: Vital Signs Temperature 97.8 F 05/22/24 23:43 Pulse Rate 91 05/22/24 23:43 Respiratory Rate 16 05/22/24 23:43 Blood Pressure 120/82 05/22/24 23:43 Pulse Oximetry 95 05/22/24 23:43 Oxygen Delivery Room Air 05/22/24 23:43 Temperature 97.8 F 05/22/24 23:43 Pulse Rate 92 05/23/24 02:51 Respiratory Rate 19 05/23/24 02:51 Blood Pressure 102/82 05/23/24 02:51 Pulse Oximetry 98 05/23/24 02:51 Oxygen Delivery Room Air 05/22/24 23:43 Medical Decision Making MDM Narrative Medical decision making narrative: -Course: 54-year-old male history of liver cirrhosis and esophageal varices presenting dark stools. Brown stool in the rectum on digital rectal exam. Hemoccult positive. Hemoglobin hemoglobin is 10.1 today which is 2.5 points higher than it was on discharge. when the patient heard that his hemoglobin was 10.1 he requested discharge. I explained my concerns that he is at high risk for GI bleed due to his liver disease esophageal varices and the patient voices understanding. He would like to go home he will just return if he has any more concerning bowel movements. Risks were explained to the patient. patient states that he is in the hospital all the time is not 1 year if he does not have to. Patient states he knows his body and will return to the ED if he needs help. Patient is leaving against medical advice. -DDX includes but is not limited to: GI bleed, lower GI bleed, -Co-morbidities complicating care: liver disease -Shared decision making / Disposition: against medical advice Vital Signs Vital Signs: Vital Signs Temperature 97.8 F 05/22/24 23:43 Pulse Rate 91 05/22/24 23:43 Respiratory Rate 16 05/22/24 23:43 Blood Pressure 120/82 05/22/24 23:43 Pulse Oximetry 95 05/22/24 23:43 Oxygen Delivery Room Air 05/22/24 23:43 Temperature 97.8 F 05/22/24 23:43 Pulse Rate 92 05/23/24 02:51 Respiratory Rate 19 05/23/24 02:51 Blood Pressure 102/82 05/23/24 02:51 Pulse Oximetry 98 05/23/24 02:51 Oxygen Delivery Room Air 05/22/24 23:43 Lab Data 05/23/24 00:05 12/09/24 00:05 Labs: Lab Results 05/23/24 05/23/24 Range/Units 00:05 00:05 WBC 5.6 (4.5-10.0) K/mm3 RBC 3.51 L (4.6-6.20) M/mm3 Hgb 10.1 L (14.0-18.0) g/dL Hct 31.3 L (42.0-52.0) % MCV 89.2 (80-100) fl MCH 28.8 (26-34) pg MCHC 32.3 (32-36) g/dl RDW 18.1 H (11.5-14.5) % Plt Count 68 L D (150-375) k/mm3 MPV 11.9 H (7.4-10.4) fl Immature Gran % (Auto) 0.5 (0-0.5) % Neut % (Auto) 75.9 H (45.5-73.1) % Lymph % (Auto) 11.1 L (18.3-44.2) % Bollinger % (Auto) 10.9 H (2.6-8.5) % Eos % (Auto) 1.4 (0-4.4) % Baso % (Auto) 0.2 (0.2-1.2) % Lymph # (Auto) 0.62 L (0.9-3.2) K/mm3 Bollinger # (Auto) 0.6 (0.1-0.6) K/mm3 Eos # (Auto) 0.1 (0-0.3) K/mm3 Baso # (Auto) 0.0 (0.0-0.1) K/mm3 Abs Immat Gran (auto) 0.03 (0.00-0.031) K/mm3 Absolute Neuts (auto) 4.2 (1.3-6.7) K/mm3 Absolute Nucleated RBC 0.000 (0.0-0.012) K/mm3 Nucleated RBC % 0.0 (0.0-0.2) % Platelet Estimate Decreased (Adequate) Clumped Platelets Present Large Platelets Present % Immature Plt Fraction 8.6 (0.9-11.2) % Hypochromasia 1+ Anisocytosis 1+ Ovalocytes 1+ Schistocytes Rare PT 14.2 (11.1-14.7) Seconds INR 1.1 APTT 28.9 (22.3-36.8) Seconds Sodium 134 L (137-145) mmol/L Potassium 3.7 (3.4-5.0) mmol/L Chloride 96 L (98-107) mmol/L Carbon Dioxide 31 H (22-30) mmol/L Anion Gap 7 (4-12) mmol/L BUN 28 H D (9-20) mg/dL Creatinine 1.20 (0.7-1.3) mg/dL Estim Creat Clear Calc 55 ml/min Estimated GFR > 60 (59 - ) Glucose 194 H (65-110) mg/dL Calcium 9.0 (8.4-10.2) mg/dL Total Bilirubin 0.6 (0.2-1.3) mg/dL AST 45 (17-59) U/L ALT 24 (6-50) U/L Alkaline Phosphatase 144 H (38-126) U/L Total Protein 7.0 (6.3-8.2) g/dL Albumin 4.2 (3.5-5.1) g/dL Blood Type AB Positive Antibody Screen Positive Antibody Identification Anti-E Anti-c Antigen Identification Cancelled ISAURO, IgG Interpret Negative ISAURO, Poly Interpret TNP ISAURO, Complement Interp Negative Discharge Plan Discharge Clinical Impression: GI bleed Patient Disposition: Left Against Medical Advice Condition: Guarded Prognosis Additional Instructions: You were seen in the ED for a possible GI bleed. Today your hemoglobin is 10.5. If you continued to have bloody or melanotic stools please return to the ED for re-evaluation. You are high risk for GI bleeds and you may have a serious internal hemorrhage at this time. Your condition could worsen up to and including . You are leaving against medical advice. Prescriptions: No Action potassium chloride 20 mEq tablet,ER particles/crystals 20 meq PO BID Hold Instructions: HOLD - Resume if okay with provider furosemide 40 mg tablet 100 mg PO BID Hold Instructions: HOLD - Resume if okay with provider spironolactone [Aldactone] 50 mg tablet 125 mg PO Q12H Hold Instructions: HOLD - Resume if okay with provider midodrine 2.5 mg tablet 5 mg PO TID PRN (Reason: Hypotension) prednisone 10 mg tablet 10 mg PO AC ondansetron HCl 8 mg tablet 8 mg PO TID PRN (Reason: Nausea And Vomiting) levothyroxine 25 mcg tablet 25 mcg PO DAILY magnesium hydroxide [Milk of Magnesia] 400 mg/5 mL Suspension 30 ml PO PRN PRN (Reason: Constipation) trazodone 100 mg tablet 100 mg PO HS divalproex [Depakote ER] 500 mg Tablet Extended Release 24 Hr 500 mg PO BID lidocaine 5 % adhesive patch,medicated 1 patch topical DAILY Rx Instructions: on for 12 hours and off for 12 hours nicotine 21 mg/24 hr Patch 24 Hour 1 patch TRANSDERMAL DAILY Fleet Enema 19-7 gram/118 mL Enema 118 ml RECTAL PRN magnesium citrate [Citroma] Solution 296 ml PO ONCE Rx Instructions: if no results within an hour of completion of bowel protocol, contact sengodwindocusate sodium Tablet 2 tablet PO BID insulin lispro protamin-lispro [Humalog Mix 75-25 KwikPen] 100 unit/mL (75-25) insulin pen 5 unit SUBCUT AC Hold Instructions: HOLD - Resume if okay with provider Rx Instructions: Hold if BS less than 100, notify MD if less than 50 or greater than 500 cholestyramine-aspartame [Cholestyramine Light] 4 gram powder in packet 1 ea PO PRN PRN (Reason: Diarrhea) lactulose [Enulose] 10 gram/15 mL solution 45 ml PO QID Miralax 17 g PO DAILY insulin glargine 10 units subcut HS Hold Instructions: HOLD - Resume if okay with provider insulin lispro 100 unit/mL Insulin Pen 1 sliding scale dose SUBCUT USEASDIRECTD morphine 60 mg tablet extended release 60 mg PO TID Qty: 30 0RF oxycodone 20 mg tablet 10 mg PO Q4H PRN (Reason: pain) Qty: 30 0RF pantoprazole 40 mg tablet,delayed release (DR/EC) 40 mg PO Q12HR Qty: 60 2RF Follow-up/Referrals: Bisi,MD Matt [Primary Care Provider] -
== END 2024-05-23 03:47 | disposition left against medical advice (07) ==
PROVIDERS: Emergency Provider Emergency Medicine; PCP Hospitalist
DX: K92.2 Gastrointestinal hemorrhage, unspecified (principal); F17.210 Nicotine dependence, cigarettes, uncomplicated; M19.90 Unspecified osteoarthritis, unspecified site; Z86.73 Personal history of transient ischemic attack (TIA), and cerebral infarction without residual deficits; D64.9 Anemia, unspecified; I11.0 Hypertensive heart disease with heart failure; I50.9 Heart failure, unspecified; Z87.442 Personal history of urinary calculi; E11.9 Type 2 diabetes mellitus without complications; I27.20 Pulmonary hypertension, unspecified; K21.9 Gastro-esophageal reflux disease without esophagitis; Z79.4 Long term (current) use of insulin
CPT/HCPCS: 36415; 80053; 85025; 85055; 85610; 85730; 86850; 86880; 86900; 86901; 86902; 99283

== ENCOUNTER 2024-06-06 09:09 | Outpatient (RCR) | payer MEDICARE, MEDICAID, SELFPAY ==
--- NOTE | ~2024-06-06 | US_ITS ---
EXAMINATION: US paracentesis abd w/image DATE: 06/06/2024 10:35 INDICATION: Ascites. TECHNIQUE: The procedure and its risks, benefits, and alternatives were discussed with the patient. P otential risks discussed included bleeding and infection. The skin was prepped and draped in sterile fashion. 1% lidocaine was used for local anesthesia. Under ultrasound guidance, a 5 Fr catheter with trochar was advanced into the ascites in the right upper quadrant. Fluid was aspirated. The catheter was removed, and a dressing was applied. There were no immediate complications. FINDINGS: Ultrasound images demonstrate ascites and the catheter within the fluid. IMPRESSION: 1. Successful ultrasound-guided paracentesis yielding 550 mL of yellow fluid. Reviewed, dictated and finalized at location A. [facility] [employer]
== END 2024-09-04 23:59 | disposition home or self-care (01) ==
LOC: ANHIMG 09:09
PROVIDERS: PCP Hospitalist
DX: R18.8 Other ascites (principal); K74.69 Other cirrhosis of liver
CPT/HCPCS: 49083

== ENCOUNTER 2024-06-10 19:57 | Emergency (ER) | payer MEDICARE, MEDICAID, SELFPAY ==
--- NOTE | ~2024-06-10 | XR_ITS ---
XR abdomen/kub 1V Ordering provider: Xu Rosa MD History: . possible foreign body . Comparison: None. FINDINGS: BOWEL: Nonobstructive bowel gas pattern. ORGANOMEGALY: None. Status post cholecystectomy. SIGNIFICANT PATHOLOGIC CALCIFICATIONS: None. OTHER: No free air is seen under the diaphragm. Healing fractures in the superior and inferior pubic rami. Possibility of ascites on the left side of the abdomen is not excluded. IMPRESSION: NO ACUTE ABDOMINAL FINDINGS. Possible ascites in the left side. Healing fractures in the superior and inferior pubic rami. Reviewed, dictated and finalized at location A. 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
[2024-06-10 20:50] VITALS: BP 96/61; PULSE 81; RESP 16; TEMP 36.4; O2SAT 98
--- NOTE | 2024-06-10 21:46 | PC.NURSE ---
this rn does not visualize any thing protruding from the abdominal area. Multiple previous insertion sites visable.
--- NOTE | 2024-06-11 02:16 | ED_ITS ---
HPI - General Adult General Chief complaint: Recheck/Abnormal Lab/Rx Stated complaint: cath left in abd s/p paracentisis w/ abd pain Time Seen by Provider: 06/11/24 02:10 History of Present Illness HPI narrative: Patient 54-year-old gentleman who presents emergency department with chief complaint of possible foreign body in abdomen. Patient has history of multiple paracentesis is reports that he has been having some discomfort in his abdomen reports that he is on chronic pain medications at the long-term Related Data Home Medications ?Medication ?Instructions ?Recorded ?Confirmed ?Last Taken ?Type potassium chloride 20 mEq 20 meq PO BID 04/11/22 05/20/24 07/05/23 21:00 History tablet,extended release(part/cryst) furosemide 40 mg tablet 100 mg PO BID 08/25/22 05/20/24 07/06/23 09:00 History spironolactone 50 mg tablet 125 mg PO Q12H 04/13/23 05/20/24 07/05/23 21:00 History (Aldactone) Miralax 17 g PO DAILY 05/20/24 05/20/24 Unknown History cholestyramine-aspartame 4 gram 1 ea PO PRN PRN Diarrhea 05/20/24 05/20/24 Unknown History oral powder for susp in a packet (Cholestyramine Light) divalproex 500 mg tablet,extended 500 mg PO BID 05/20/24 05/20/24 Unknown History release 24 hr (Depakote ER) insulin glargine 10 units subcut HS 05/20/24 05/20/24 Unknown History insulin lispro 100 unit/mL 1 sliding scale dose subcut 05/20/24 05/20/24 Unknown History subcutaneous pen USEASDIRECTD insulin lispro protamine-lispro 5 unit subcut AC 05/20/24 05/20/24 Unknown History 100 unit/mL (75-25) subcutaneous pen (Humalog Mix 75-25 KwikPen) lactulose 10 gram/15 mL oral 45 ml PO QID 05/20/24 05/20/24 Unknown History solution (Enulose) levothyroxine 25 mcg tablet 25 mcg PO DAILY 05/20/24 05/20/24 Unknown History lidocaine 5 % topical patch 1 patch topical DAILY 05/20/24 05/20/24 Unknown History magnesium citrate (Citroma oral 296 ml PO ONCE 05/20/24 05/20/24 Unknown History solution) magnesium hydroxide 400 mg/5 mL 30 ml PO PRN PRN Constipation 05/20/24 05/20/24 Unknown History oral suspension (Milk of Magnesia) midodrine 2.5 mg tablet 5 mg PO TID PRN Hypotension 05/20/24 05/20/24 Unknown History nicotine 21 mg/24 hr daily 1 patch transdermal DAILY 05/20/24 05/20/24 Unknown History transdermal patch ondansetron HCl 8 mg tablet 8 mg PO TID PRN Nausea And Vomiting 05/20/24 05/20/24 Unknown History prednisone 10 mg tablet 10 mg PO AC 05/20/24 05/20/24 Unknown History senna-docusate sodium tablet 2 tablet PO BID 05/20/24 05/20/24 Unknown History sodium phosphates 19 gram-7 118 ml RECTAL PRN constipation 05/20/24 05/20/24 Unknown History gram/118 mL enema (Fleet Enema) trazodone 100 mg tablet 100 mg PO HS 05/20/24 05/20/24 Unknown History Allergies Allergy/AdvReac Type Severity Reaction Status Date / Time ceftriaxone AdvReac Itching Verified 04/01/24 21:11 ciprofloxacin AdvReac Itching Verified 04/01/24 21:11 Review of Systems Review of Systems: A 10 system review of systems was completed on the patient and is negative except for what is stated in the HPI. Nursing and ancillary documentation was reviewed. [facility] Past Medical History Medical History Deep vein thrombosis of axillary vein of left upper extremity (03/2023) Closed fracture of left proximal humerus Pulmonary emboli (03/2023) Umbilical hernia Pancreatic abnormality C. difficile colitis (~2021) Diastolic congestive heart failure Type 2 diabetes mellitus Leukemia In childhood. Kidney stone Esophageal varices Cerebrovascular accident (2004) Pulmonary hypertension HU (iron deficiency anemia) Tobacco dependence Chronic anemia Gastric ulcer Pericardial effusion Noted on CT and echocardiogram in August 2020. No evidence of tamponade. GI bleed Spontaneous bacterial peritonitis (04/2020) Prostate cancer Status post radiation seed implantation. Cirrhosis of liver with ascites Hypertension Gastroesophageal reflux disease Portal hypertensive gastropathy Noted on endoscopy on 03/23/[address] Duran. Diarrhea Arthritis Surgical History Surgical History History of cystoscopy History of inguinal hernia repair History of lithotripsy History of repair of right rotator cuff History of cholecystectomy History of appendectomy Family History Family History Mother Breast cancer Father Acute myocardial infarction Heart disease Hypertension Other Diabetes mellitus Maternal Uncle Sibling Family history of malignant neoplasm Social History Social History Social History: Patient has been residing in long-term since his 's following metastatic breast cancer. He has been residing at a long-term since July 2023. He still smokes cigarettes every day. He has not drink alcohol in almost 2 years and then denies heavy alcohol use prior to that. Surrogate decision maker: Marnie Washington (aunt) who lives locally or his mother who lives in [facility] Code status: DNR/DNI Smoking packs per day: 0.5 Smoking cigarettes per day: 10.0 Years smoked: 30 Smoking pack-years: 15.00 Smoking status: Current every day smoker Tobacco type: cigarettes Second hand tobacco smoke exposure: No Additional smoking assessment comments: 3 cig per day Alcohol intake: former Drinks per week: 1 Alcohol use details: Former beer drinker. Substance use: never Substance use type: does not use Other substance usage details: DECEMBER 16 2022 LAST DRINK- BEER Do You Feel Safe in your Home?: Yes Lack of Transportation: No Lack of Food: Never True Current Housing: I Have Housing Concerned About Future Housing: No Difficulty Paying Gas/Electric Bills: No Difficulty Paying for Meds: No Currently Unemployed: No Education: Decline to Answer Difficulty w/ Childcare or Family Care: No Living arrangements: with family Additional living arrangements comments: Resides in [place] with his and son. Additional occupation/education comments: On disability. Spiritual care concerns: No Agree to blood products: Yes Exam Narrative: GENERAL: Well-appearing, well-nourished, and in no acute distress. HEAD: Normocephalic, atraumatic. EYES: PERRLA and EOMI. ENT: Nares clear, no rhinorrhea or epistaxis. Mucous membranes moist. NECK: Supple. CHEST: Clear to auscultation. No respiratory distress. HEART: Regular rate and rhythm. No murmur heard. Normal peripheral pulses. ABDOMEN: Soft, ascites present in the abdomen, umbilical hernia that is reducible present, normal active bowel sounds. EXTREMITIES: Normal range of motion. No edema. SKIN: Warm, dry, no rash. NEURO: No focal deficits. Alert and oriented x3. PSYCH: Normal mood and affect. Course Vital Signs Vital signs: Vital Signs Temperature 36.4 C 06/10/24 20:50 Pulse Rate 81 06/10/24 20:50 Respiratory Rate 16 06/10/24 20:50 Blood Pressure 96/61 L 06/10/24 20:50 Pulse Oximetry 98 06/10/24 20:50 Oxygen Delivery Room Air 06/10/24 20:50 Temperature 36.4 C 06/10/24 20:50 Pulse Rate 81 06/10/24 20:50 Respiratory Rate 16 06/10/24 20:50 Blood Pressure 96/61 L 06/10/24 20:50 Pulse Oximetry 98 06/10/24 20:50 Oxygen Delivery Room Air 06/10/24 20:50 Medical Decision Making MDM Narrative Medical decision making narrative: Patient is currently afebrile vitals are within normal limits Plain film x-ray was obtained of the abdomen pelvis which showed no acute abnormality Vital Signs Vital Signs: Vital Signs Temperature 36.4 C 06/10/24 20:50 Pulse Rate 81 06/10/24 20:50 Respiratory Rate 16 06/10/24 20:50 Blood Pressure 96/61 L 06/10/24 20:50 Pulse Oximetry 98 06/10/24 20:50 Oxygen Delivery Room Air 06/10/24 20:50 Temperature 36.4 C 06/10/24 20:50 Pulse Rate 81 06/10/24 20:50 Respiratory Rate 16 06/10/24 20:50 Blood Pressure 96/61 L 06/10/24 20:50 Pulse Oximetry 98 06/10/24 20:50 Oxygen Delivery Room Air 06/10/24 20:50 Discharge Plan Discharge Clinical Impression: Cirrhosis, Ascites Patient Disposition: NH Snf/Asst Living Condition: Stable Instructions: Antibiotic Form, Cirrhosis of the Liver (ED), Ascites (ED) Additional Instructions: The x-ray shows no evidence of foreign body please follow-up with your doctors Patient Language: Brazilian Prescriptions: No Action potassium chloride 20 mEq tablet,ER particles/crystals 20 meq PO BID furosemide 40 mg tablet 100 mg PO BID spironolactone [Aldactone] 50 mg tablet 125 mg PO Q12H midodrine 2.5 mg tablet 5 mg PO TID PRN (Reason: Hypotension) prednisone 10 mg tablet 10 mg PO AC ondansetron HCl 8 mg tablet 8 mg PO TID PRN (Reason: Nausea And Vomiting) levothyroxine 25 mcg tablet 25 mcg PO DAILY magnesium hydroxide [Milk of Magnesia] 400 mg/5 mL Suspension 30 ml PO PRN PRN (Reason: Constipation) trazodone 100 mg tablet 100 mg PO HS divalproex [Depakote ER] 500 mg Tablet Extended Release 24 Hr 500 mg PO BID lidocaine 5 % adhesive patch,medicated 1 patch topical DAILY Rx Instructions: on for 12 hours and off for 12 hours nicotine 21 mg/24 hr Patch 24 Hour 1 patch TRANSDERMAL DAILY Fleet Enema 19-7 gram/118 mL Enema 118 ml RECTAL PRN magnesium citrate [Citroma] Solution 296 ml PO ONCE Rx Instructions: if no results within an hour of completion of bowel protocol, contact senpablo-docusate sodium Tablet 2 tablet PO BID insulin lispro protamin-lispro [Humalog Mix 75-25 KwikPen] 100 unit/mL (75-25) insulin pen 5 unit SUBCUT AC Rx Instructions: Hold if BS less than 100, notify MD if less than 50 or greater than 500 cholestyramine-aspartame [Cholestyramine Light] 4 gram powder in packet 1 ea PO PRN PRN (Reason: Diarrhea) lactulose [Enulose] 10 gram/15 mL solution 45 ml PO QID Miralax 17 g PO DAILY insulin glargine 10 units subcut HS insulin lispro 100 unit/mL Insulin Pen 1 sliding scale dose SUBCUT USEASDIRECTD morphine 60 mg tablet extended release 60 mg PO TID Qty: 30 0RF oxycodone 20 mg tablet 10 mg PO Q4H PRN (Reason: pain) Qty: 30 0RF pantoprazole 40 mg tablet,delayed release (DR/EC) 40 mg PO Q12HR Qty: 60 2RF Follow-up/Referrals: Bisi,MD Matt [Primary Care Provider] - Time of Disposition: 02:30
--- OUTSIDE RECORDS SUMMARY | 2024-06-18 02:28 | XMS_ITS | CONTINUITY OF CARE DOCUMENT ---
Author Name rell, rell Address Unknown Organization [facility] Address [address] [place] [address] Phone [phone] Care Team Providers Care Vice President Of Operations Name Role Phone Goyo KONG, Sunny Unavailable [phone] Sunny Nance MD Unavailable [phone] PROBLEMS Condition Status Date Provider Notes Pre-operative respiratory examination active Arturo Maya Tobacco abuse active Sunny Nance MD renal stone active Sunny Nance MD PREDIABETES; active Sunny Nance MD Health maintenance examination active Kurt Nance MD Vitamin D deficiency active Sunny Duenas Hyperlipidemia active Sunny Nance MD Overweight active Sunny Nance MD FAMILY HISTORY OF HEART DISEASE active Jacoby Nance MD sandyritu had stent ENCOUNTERS Date Type Provider Location Encounter Diag nosis - In-person encounter Office Visit Sunny Nance MD [facility] Tobacco abuserenal stonePREDIABETES;[facility] maintenance examinationVitamin D deficiencyHyperlipidemiaOverweightFAMILY HISTORY OF HEART DISEASE VITAL SIGNS Date Observation Value Provider blood pressure, diastolic 80 mm[Hg] Ke rri Erendira blood pressure, systolic 120 mm[Hg] Ker ri Erendira Body Mass Index (Ratio) 28.59 kg/m2 Jacoby Nance MD blood pressure, resting No Wand a Her blood pressure, cuff size regular Wa nda Her blood pressure, diastolic 78 mm[Hg] Wa nda Her blood pressure, systolic 122 mm[Hg] [facility] oxygen saturation, oximetry 98 % [facility] respiratory rate E&M 16 /min [facility] pulse rate 90 /min [facility] weight E&M 171.8 [lb_av] [facility] height E&M 65 [in_i] [facility] ALLERGIES No Known Drug Allergies HISTORY OF MEDICATION USE Medication Status Instructions Dates Provider Indications Com ments ASPIRIN ADULT LOW DOSE 81 MG ORAL TABLET DELAYED RELEASE active One Tab By Mouth Daily Sunny Nance MD VITAMIN D3 5000 UNIT ORAL CAPSULE active ONE TAB BY MOUTH DAILY Sunny Nance MD SOCIAL HISTORY Date Observation Value Provider smoking status Current every day smoker Divya jones Erendira social history E&M S moking History: P atient currently smokes every day. P atient has been counseled to quit. Sunny Nance MD social history reviewed E&M revi ewed - no changes required Sunny Nance MD smoking/tobacco cess ation, patient education and counseling yes Sunny Nance MD number of grandchildren Sunny Nance MD [facility] smoking status Current every day smoker W wilmer Her FUNCTIONAL STATUS Date Observation Value Provider periodic limb movement index absent (0) Jeff Herbert MD FAMILY HISTORY Family Member Condition Mother Family History of Co ronary Artery Disease: INSURANCE PROVIDERS Payer name Policy type / Coverage type [place] red green party ID [employer] MEDICAID (2) Medicaid [id number] ADVANCE DIRECTIVES Name Date DISCUSSED - NO DECISION MADE TREATMENT PLAN Date Name Performer Cardiology Sunny Nance MD Cardiology Sunny Nance MD Cardiology Sunny Nance MD Cardiology Sunny Nance MD Cardiology:nml uacr Sunny duque MD Cardiology:nml psa, and tsh and mi microelectronics engineer alvbuymin Sunny Nance MD Date Name STR - Routine Complete Echo CT, Coronary Calcium Score DLCO - 14791 FRC - 81837 FVC - 83419 HISTORY OF PROCEDURES Procedure Date Procedure Name Provider Procedure Notes S tatus FVC / MVV with bronchodilator - 80046 Sunny Nance MD completed FRC - 09157 Sunny Nance MD complet ed SpO2 - 23890 Sunny Nance MD comple bebeto DLCO - 99635 Sunny Nance MD comple bebeto Stress EKG Saadrianneus Erik catalan MD completed EKG Sunny Nance MD complete d SNOMED-CT: [id number] Current Medications Documented Sunny Nance MD completed
== END 2024-06-11 03:15 ==
LOC: ANHED 06-11 03:00
PROVIDERS: Emergency Provider Emergency Medicine; PCP Hospitalist
DX: K74.60 Unspecified cirrhosis of liver (principal); R18.8 Other ascites; Z79.4 Long term (current) use of insulin; Z86.711 Personal history of pulmonary embolism; I50.30 Unspecified diastolic (congestive) heart failure; E11.9 Type 2 diabetes mellitus without complications; Z86.718 Personal history of other venous thrombosis and embolism; Z85.6 Personal history of leukemia; I11.0 Hypertensive heart disease with heart failure; F17.210 Nicotine dependence, cigarettes, uncomplicated
CPT/HCPCS: 74018; 96372; 99283

== ENCOUNTER 2024-06-30 10:19 | Outpatient (RCR) | payer MEDICARE, MEDICAID, SELFPAY ==
--- NOTE | ~2024-06-30 | US_ITS ---
EXAMINATION: US abdomen limited DATE: 06/30/2024 11:02 INDICATION: Ascites. TECHNIQUE: Multiple grayscale ultrasound images of the abdomen were obtained. COMPARISON: None FINDINGS: A survey of the abdomen demonstrates a very small volume of ascites. IMPRESSION: 1. Very small volume of ascites. After discussion with the patient, the paracentesis was canceled. Reviewed, dictated and finalized at location A. 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 Very small volume of ascites. After discussion with the patient, the paracen tesis was canceled.
== END 2024-09-28 23:59 | disposition home or self-care (01) ==
LOC: ANHIMG 10:19
PROVIDERS: PCP Hospitalist
DX: R18.8 Other ascites (principal); K74.69 Other cirrhosis of liver
CPT/HCPCS: 76705

== ENCOUNTER 2024-07-05 00:47 | Day surgery (SDC) | payer MEDICARE, MEDICAID, SELFPAY ==
[2024-06-21 16:10] VITALS: BMI 26.4
--- NOTE | 2024-07-04 10:18 | SUR.PREOP ---
pt resides at [facility], called to confirm with staff they rec'd pt transfer communication sheet and pt had transportation. nurse did not have the communication sheet and stated transport had not yet been arranged. she is going to talk with their transport again and will also speak with pt to see if he had other already arranged. gave her number for endo and asked she call back with information. also re-faxed form per her request to [phone] with confirmation rec'd.
--- NOTE | 2024-07-04 15:25 | WPDANESEPPF ---
Anes - Initial Pre Proc Eval Procedure: Operation Date: 07/05/24 12:00 Proposed Procedures p Esophagogastroduodenoscopy - Shon Duran MD Date/Time: 07/04/24 15:25 Surgeon: Shon Duran MD Pre Op Diagnosis: Esophageal varices w/o bleeding Patient Data Age: 54 Gender: M Height: 1.65 m Weight: 72.2 kg Allergies Allergy/AdvReac Type Severity Reaction Status Date / Time ceftriaxone AdvReac Itching Verified 07/05/24 10:51 ciprofloxacin AdvReac Itching Verified 07/05/24 10:51 Home Medications ?Medication ?Instructions ?Recorded ?Confirmed ?Type potassium chloride 20 mEq 20 meq PO BID 04/11/22 07/05/24 History tablet,extended release(part/cryst) pantoprazole 40 mg tablet,delayed 40 mg PO Q12HR #60 tabs 07/09/22 07/05/24 Rx release furosemide 40 mg tablet 100 mg PO BID 08/25/22 07/05/24 History spironolactone 50 mg tablet 125 mg PO Q12H 04/13/23 07/05/24 History (Aldactone) Miralax 17 g PO DAILY 05/20/24 07/05/24 History cholestyramine-aspartame 4 gram 1 ea PO PRN PRN Diarrhea 05/20/24 07/05/24 History oral powder for susp in a packet (Cholestyramine Light) divalproex 500 mg tablet,extended 500 mg PO BID 05/20/24 07/05/24 History release 24 hr (Depakote ER) insulin glargine 10 units subcut HS 05/20/24 07/05/24 History insulin lispro 100 unit/mL 1 sliding scale dose subcut 05/20/24 07/05/24 History subcutaneous pen USEASDIRECTD insulin lispro protamine-lispro 5 unit subcut AC 05/20/24 07/05/24 History 100 unit/mL (75-25) subcutaneous pen (Humalog Mix 75-25 KwikPen) lactulose 10 gram/15 mL oral 45 ml PO QID 05/20/24 07/05/24 History solution (Enulose) levothyroxine 25 mcg tablet 25 mcg PO DAILY 05/20/24 07/05/24 History lidocaine 5 % topical patch 1 patch topical DAILY 05/20/24 07/05/24 History magnesium citrate (Citroma oral 296 ml PO ONCE 05/20/24 07/05/24 History solution) magnesium hydroxide 400 mg/5 mL 30 ml PO PRN PRN Constipation 05/20/24 06/21/24 History oral suspension (Milk of Magnesia) midodrine 2.5 mg tablet 5 mg PO TID PRN Hypotension 05/20/24 06/21/24 History nicotine 21 mg/24 hr daily 1 patch transdermal DAILY 05/20/24 05/20/24 History transdermal patch ondansetron HCl 8 mg tablet 8 mg PO TID PRN Nausea And Vomiting 05/20/24 06/21/24 History prednisone 10 mg tablet 10 mg PO AC 05/20/24 07/05/24 History senna-docusate sodium tablet 2 tablet PO BID 05/20/24 07/05/24 History sodium phosphates 19 gram-7 118 ml RECTAL PRN constipation 05/20/24 05/20/24 History gram/118 mL enema (Fleet Enema) trazodone 100 mg tablet 100 mg PO HS 05/20/24 07/05/24 History morphine 60 mg tablet,extended 60 mg PO TID #30 tabs 05/21/24 07/05/24 Rx release oxycodone 20 mg tablet 10 mg (1/2 x 20 mg) PO Q4H PRN 05/21/24 07/05/24 Rx pain #30 tabs pregabalin 50 mg capsule 50 mg PO TID 06/21/24 07/05/24 History Patient hx anesthesia problems: none Family hx anesthesia problems: none Results Review: All pre-operative results and documents have been reviewed as part of the pre-operative evaluation. [facility] Past Medical History Medical History (Updated 07/04/24 @ 15:29 by Kel Umaña DO) PTSD (post-traumatic stress disorder) Diabetes type 2, controlled History of pulmonary embolism CHF (congestive heart failure) EF 65% Deep vein thrombosis of axillary vein of left upper extremity (03/2023) Closed fracture of left proximal humerus Pulmonary emboli (03/2023) Umbilical hernia Pancreatic abnormality C. difficile colitis (~2021) Diastolic congestive heart failure Type 2 diabetes mellitus Leukemia In childhood. Kidney stone Esophageal varices Cerebrovascular accident (2004) Pulmonary hypertension HU (iron deficiency anemia) Tobacco dependence Chronic anemia Gastric ulcer Pericardial effusion Noted on CT and echocardiogram in August 2020. No evidence of tamponade. GI bleed Spontaneous bacterial peritonitis (04/2020) Prostate cancer Status post radiation seed implantation. Cirrhosis of liver with ascites Hypertension Gastroesophageal reflux disease Portal hypertensive gastropathy Noted on endoscopy on 03/23/[address] Duran. Diarrhea Arthritis Surgical History Surgical History History of cystoscopy History of inguinal hernia repair History of lithotripsy History of repair of right rotator cuff History of cholecystectomy History of appendectomy Family History Family History Mother Breast cancer Father Acute myocardial infarction Heart disease Hypertension Other Diabetes mellitus Maternal Uncle Sibling Family history of malignant neoplasm Social History Social History Social History: Patient has been residing in shelter since his 's following metastatic breast cancer. He has been residing at a shelter since July 2023. He still smokes cigarettes every day. He has not drink alcohol in almost 2 years and then denies heavy alcohol use prior to that. Surrogate decision maker: Marnie Washington (aunt) who lives locally or his mother who lives in [facility] Code status: DNR/DNI Smoking packs per day: 0.5 Smoking cigarettes per day: 10.0 Years smoked: 20 Smoking pack-years: 10.00 Smoking status: Current every day smoker Tobacco type: cigarettes Second hand tobacco smoke exposure: No Additional smoking assessment comments: 3 cig per day Alcohol intake: never Drinks per week: 1 Alcohol use details: Former beer drinker. Substance use: never Substance use type: does not use Other substance usage details: DECEMBER 16 2022 LAST DRINK- BEER Do You Feel Safe in your Home?: Yes Lack of Transportation: No Lack of Food: Never True Current Housing: I Have Housing Concerned About Future Housing: No Difficulty Paying Gas/Electric Bills: No Difficulty Paying for Meds: No Currently Unemployed: No Education: Decline to Answer Difficulty w/ Childcare or Family Care: No Living arrangements: shelter Additional living arrangements comments: Resides in [place] with his and son. Additional occupation/education comments: On disability. Spiritual care concerns: No Agree to blood products: Yes Anes - Eval Final PreProcedure Day of Procedure 07/04/24 15:25 Patient weight: normal Heart: regular rate and rhythm Lungs: clear to auscultation and normal air movement Airway: Mallampati scale class II and special considerations poor dentition Neurological: alert and oriented Last oral intake: >/= 8 hours ASA classification: IV Emergent: no Anesthetic plan: proceed Anesthesia type and monitoring: general GIVS and standard monitoring Results Review: All pre-operative results and documents have been reviewed as part of the pre-operative evaluation. Informed Consent: The patient's anesthetic plan and its attendant risks and benefits were discussed with the patient/family/POA. Questions were solicited and answers provided to the satisfaction of the patient/family/POA.
--- NOTE | 2024-07-04 15:53 | SUR.PREOP ---
pt resides at a care home. called this morning and spoke with nurse, she states she did not know if transportation had been arranged for egd tomorrow. she was not aware he had a procedure. she tried to find out but unable to speak with anyone in transportation. she will call back after she is able to speak with someone. did not hear back so returned call to facility at 1515 and still was unable to speak with anyone that knew what was going on, left a voicemail after waiting for 15 minutes. called pt to see if he knew anything, he said he was told that the person that arranges transport was not there today. he thought the network systems administrator was taking care of it but network systems administrator not available when pt tried to talk with him. patient thought the person in charge of transportation would be there at 0600 tomorrow morning. patient instructed to go ahead and remain npo until he knows if they are able to get him here tomorrow. he took number and states he or someone at the facility would call in the morning.
[2024-07-05 11:07] LABS: Glucose Point of Care 106 mg/dl (65-105)
[2024-07-05] MEDS: LACTATED RINGERS 1,000 ML 150 ML IV CONT (11:07)
[2024-07-05 11:09] VITALS: BP 106/68; PULSE 71; RESP 18; TEMP 36.3; O2SAT 95
--- NOTE | 2024-07-05 11:11 | P.HP_ITS ---
History of Present Illness History of Present Illness Consent: Risks, benefits, and alternatives have been discussed and questions answered. Patient agrees to proceed with procedure. Chief complaint: Esophageal varices w/o bleeding Narrative: Matt Worley II is a 54 year old male with decompensated cirrhosis with ascites and recent hospitalization for recurrent GIB that required EVL (he had banding previously), his MELD score has improved since- he was told but his artist suspect at [facility] that MELD down to 12 from ~ 20. He is not longer on hospice and was advised to get at some point TIPS procedure. Denies recent gib since last hospitalization. Here for another EGD to assess if needs more banding. Review of Systems Review of Systems: All systems reviewed & are unremarkable except as noted in HPI and below PMFSH Past Medical History Medical History (Updated 07/04/24 @ 15:29 by Kel Umaña DO) PTSD (post-traumatic stress disorder) Diabetes type 2, controlled History of pulmonary embolism CHF (congestive heart failure) EF 65% Deep vein thrombosis of axillary vein of left upper extremity (03/2023) Closed fracture of left proximal humerus Pulmonary emboli (03/2023) Umbilical hernia Pancreatic abnormality C. difficile colitis (~2021) Diastolic congestive heart failure Type 2 diabetes mellitus Leukemia In childhood. Kidney stone Esophageal varices Cerebrovascular accident (2004) Pulmonary hypertension HU (iron deficiency anemia) Tobacco dependence Chronic anemia Gastric ulcer Pericardial effusion Noted on CT and echocardiogram in August 2020. No evidence of tamponade. GI bleed Spontaneous bacterial peritonitis (04/2020) Prostate cancer Status post radiation seed implantation. Cirrhosis of liver with ascites Hypertension Gastroesophageal reflux disease Portal hypertensive gastropathy Noted on endoscopy on 03/23/[address] Duran. Diarrhea Arthritis Surgical History Surgical History History of cystoscopy History of inguinal hernia repair History of lithotripsy History of repair of right rotator cuff History of cholecystectomy History of appendectomy Family History Family History Mother Breast cancer Father Acute myocardial infarction Heart disease Hypertension Other Diabetes mellitus Maternal Uncle Sibling Family history of malignant neoplasm Social History Social History Social History: Patient has been residing in residential since his 's following metastatic breast cancer. He has been residing at a residential since July 2023. He still smokes cigarettes every day. He has not drink alcohol in almost 2 years and then denies heavy alcohol use prior to that. Surrogate decision maker: Marnie Washington (aunt) who lives locally or his mother who lives in [facility] Code status: DNR/DNI Smoking packs per day: 0.5 Smoking cigarettes per day: 10.0 Years smoked: 20 Smoking pack-years: 10.00 Smoking status: Current every day smoker Tobacco type: cigarettes Second hand tobacco smoke exposure: No Additional smoking assessment comments: 3 cig per day Alcohol intake: never Drinks per week: 1 Alcohol use details: Former beer drinker. Substance use: never Substance use type: does not use Other substance usage details: DECEMBER 16 2022 LAST DRINK- BEER Do You Feel Safe in your Home?: Yes Lack of Transportation: No Lack of Food: Never True Current Housing: I Have Housing Concerned About Future Housing: No Difficulty Paying Gas/Electric Bills: No Difficulty Paying for Meds: No Currently Unemployed: No Education: Decline to Answer Difficulty w/ Childcare or Family Care: No Living arrangements: residential Additional living arrangements comments: Resides in [place] with his and son. Additional occupation/education comments: On disability. Spiritual care concerns: No Agree to blood products: Yes Meds Home Medications and Allergies Home Medications ?Medication ?Instructions ?Recorded ?Confirmed ?Type potassium chloride 20 mEq 20 meq PO BID 04/11/22 05/20/24 History tablet,extended release(part/cryst) pantoprazole 40 mg tablet,delayed 40 mg PO Q12HR #60 tabs 07/09/22 06/21/24 Rx release furosemide 40 mg tablet 100 mg PO BID 08/25/22 06/21/24 History spironolactone 50 mg tablet 125 mg PO Q12H 04/13/23 06/21/24 History (Aldactone) Miralax 17 g PO DAILY 05/20/24 05/20/24 History cholestyramine-aspartame 4 gram 1 ea PO PRN PRN Diarrhea 05/20/24 05/20/24 History oral powder for susp in a packet (Cholestyramine Light) divalproex 500 mg tablet,extended 500 mg PO BID 05/20/24 06/21/24 History release 24 hr (Depakote ER) insulin glargine 10 units subcut HS 05/20/24 06/21/24 History insulin lispro 100 unit/mL 1 sliding scale dose subcut 05/20/24 06/21/24 History subcutaneous pen USEASDIRECTD insulin lispro protamine-lispro 5 unit subcut AC 05/20/24 06/21/24 History 100 unit/mL (75-25) subcutaneous pen (Humalog Mix 75-25 KwikPen) lactulose 10 gram/15 mL oral 45 ml PO QID 05/20/24 06/21/24 History solution (Enulose) levothyroxine 25 mcg tablet 25 mcg PO DAILY 05/20/24 06/21/24 History lidocaine 5 % topical patch 1 patch topical DAILY 05/20/24 06/21/24 History magnesium citrate (Citroma oral 296 ml PO ONCE 05/20/24 05/20/24 History solution) magnesium hydroxide 400 mg/5 mL 30 ml PO PRN PRN Constipation 05/20/24 06/21/24 History oral suspension (Milk of Magnesia) midodrine 2.5 mg tablet 5 mg PO TID PRN Hypotension 05/20/24 06/21/24 History nicotine 21 mg/24 hr daily 1 patch transdermal DAILY 05/20/24 05/20/24 History transdermal patch ondansetron HCl 8 mg tablet 8 mg PO TID PRN Nausea And Vomiting 05/20/24 06/21/24 History prednisone 10 mg tablet 10 mg PO AC 05/20/24 06/21/24 History senna-docusate sodium tablet 2 tablet PO BID 05/20/24 06/21/24 History sodium phosphates 19 gram-7 118 ml RECTAL PRN constipation 05/20/24 05/20/24 History gram/118 mL enema (Fleet Enema) trazodone 100 mg tablet 100 mg PO HS 05/20/24 06/21/24 History morphine 60 mg tablet,extended 60 mg PO TID #30 tabs 05/21/24 06/21/24 Rx release oxycodone 20 mg tablet 10 mg (1/2 x 20 mg) PO Q4H PRN 05/21/24 06/21/24 Rx pain #30 tabs pregabalin 50 mg capsule 50 mg PO TID 06/21/24 06/21/24 History Allergies Allergy/AdvReac Type Severity Reaction Status Date / Time ceftriaxone AdvReac Itching Verified 07/05/24 10:51 ciprofloxacin AdvReac Itching Verified 07/05/24 10:51 Exam Const: General: comfortable and no acute distress HENMT: Face/Nose/Sinus: Normal nares present Eyes: General: appearance normal, both eyes and all related structures Neck: Neck: no JVD Resp: Auscultation: clear to auscultation bilaterally Cardio: Rate: regular rate Rhythm: regular rhythm GI: Inspection: non-distended GI Palp: Yes Soft to palpation Skin: General skin exam: normal color Neuro: Speech: normal speech Extrem: General: normal to inspection Psych: Mental Status: mental status grossly normal Assessment and Plan Assessment and plan (1) Cirrhosis of liver with ascites: Qualifiers: Hepatic cirrhosis type: unspecified hepatic cirrhosis Qualified Code(s): K74.60 - Unspecified cirrhosis of liver; R18.8 - Other ascites Code(s): K74.60 - Unspecified cirrhosis of liver; R18.8 - Other ascites Status: Chronic Assessment and Plan: already established with artist suspect at [facility] (2) Esophageal varices: Code(s): I85.00 - Esophageal varices without bleeding Status: Acute Assessment and Plan: egd to assess if needs more banding
[2024-07-05 11:28] VITALS: BP 82/53; PULSE 67; RESP 17; O2SAT 96
[2024-07-05 11:38] VITALS: BP 92/57; PULSE 63; RESP 14; O2SAT 96
[2024-07-05 11:48] VITALS: BP 95/64; PULSE 63; RESP 15; O2SAT 98
[2024-07-05 11:50] LABS: Glucose Point of Care 114 mg/dl (65-105)
--- OUTSIDE RECORDS SUMMARY | 2024-07-07 15:15 | XMS_ITS | Referral Summary ---
Author Organization [facility] [employer] Address [address] [place] [address] Care Team Providers Care Continuity Manager Name Role Phone Fidel Camejo MD Primary Care Provider Source Comments [facility] [employer],non-owned Affiliates and Associated Physician Practices is amultiple site organization consisting of ambulatory clinics and hospital sitesin [place], [place], [place] and [place]. This disclosure is being madepursuant to the Care Everywhere program and may not contain all information available regarding this patient. Last updated 18.[facility] [employer] Allergies No known active allergies Medications * Be aware that medications may not be up to date on this document. Alwaysverify current medications with the patient. Medication Sig Dispensed Refills Start Date End Date Status ibuprofen (MOTRIN) 800 MG tablet Take 1 tablet by mouth every 6 hours as needed for Pain 60 tablet 01/03/2018 Active Additional Information Patient taking differently:800 mg Oral3 TIMES DAILY, Reported on 07/12/2020 Acetaminophen (TYLENOL PO) Take 500 mg by mouth 4 times daily Active ciprofloxacin (CIPRO) 500 MG tablet TK 1 T PO Q 12 H 02/23/2020 Active omeprazole (PRILOSEC) 10 MG capsule TK 1 C PO QD PRN 12/26/2019 Active ondansetron, disintegrating, (ZOFRAN ODT) 4 MG tablet DIS 1 T ON THE TONGUE Q 6 H PRF NAUSEA OR VOM 01/19/2020 Active lidocaine (LIDODERM) 5 % patch Apply 1 (one) patch to skin 2 times daily as needed 30 patch 2 07/12/2020 Active furosemide (LASIX) 40 MG tablet Take 1 (one) tablet by mouth once daily 30 tablet 2 07/12/2020 Active spironolactone (ALDACTONE) 50 MG tablet Take 1 (one) tablet by mouth once daily 30 tablet 2 07/12/2020 Active HYDROcodone-acetami nophen (NORCO) 5-325 MG tablet 10/30/2020 Active pantoprazole EC (PROTONIX) 40 MG tablet Take 40 mg by mouth every 12 hours 08/18/2020 Active nadolol (CORGARD) 20 MG tablet Take 20 mg by mouth once daily Active amoxicillin (AMOXIL) 500 MG capsule Take 500 mg by mouth every 8 hours 1-2 days left 12/11/20 Active Active Problems Problem Noted Date Diagnosed Date Gastrointestinal hemorrhage with melena 03/09/20 22 Other ascites 04/20/2020 Paresthesia of left leg 11/16/2018 Left inguinal pain 11/16/2018 Chronic left shoulder pain 09/14/2018 Social History Tobacco Use Types Packs/Day Years Used Date Smoking Tobacco: Every Day Cigarettes 0.5 20 Smokeless Tobacco: Never Tobacco Cessation:Ready to Q uit: No; Counseling Given: Yes Comments: down to 2 a day Alcohol Use Standard Drinks/Week Comments Not Currently 1 (1 standard drink = 0.6 oz pure alcohol) previously daily beer, abstinent x4 months Sex and Gender Information Value Date Recorded Sex Assigned at Not on file Gender Identity Not on file Sexual Orientation Not on file Last Filed Vital Signs Vital Sign Reading Time Taken Comments Blood Pressure 174/103 11/01/2020 11:37 AM CDT Pulse 89 11/01/2020 11:37 AM CDT Temperature 36.6 ??C (97.9 ??F) 07/12/2020 10:[address] Respiratory Rate 18 11/01/2020 11:37 AM CDT Oxygen Saturation 100% 11/01/2020 11:37 AM CDT Inhaled Oxygen Concentration - - Weight 81.2 kg (179 lb) 11/01/2020 11:37 AM CDT Height 165.1 cm (5' 5 ) 07/12/2020 10:23 AM HEALTH INFORMATION CLERK Body Mass Index 29.79 07/12/2020 10:23 AM HEALTH INFORMATION CLERK Plan of Treatment Not on file Goals Goal Patient Goal Type Associated Problems Recent Progress Patient-Stated? Author Medication Management General On track( 021 10:36 AM HEALTH INFORMATION CLERK) Jose Juan Prince RN Note: Expected end date: Interventions: Take all medications as prescribed Let your doctor know right away about any changes in your medications Make sure to request a refill of your medication at least one week prior to your last dose Procedures Procedure Name Priority Date/Time Associated Diagnosis Comments COMPREHENSIVE METABOLIC PANEL Routine 07/12/2020 12:54 PM HEALTH INFORMATION CLERK Abdominal pain, unspecified abdominal location Chronic diarrhea HEPATITIS C ANTIBODY Routine 04/04/2020 1:28 PM CDT RUQ pain Abnormal finding on imaging of liver LIPID PROFILE Routine 11/09/2012 12:10 AM CDT from Last 3 Months or Most Recently Relevant to Health Maintenance Results * (ABNORMAL) COMPREHENSIVE METABOLIC PANEL (07/12/2020 12:54 PM HEALTH INFORMATION CLERK) BUN 10 7 - 26 mg/dL 07/12/2020 2:12 PM [facility] Creatinine 0.6 0.6 - 1.2 mg/dL 07/12/2020 2:12 PM [facility] Sodium 138 136 - 145 mmol/L 07/12/2020 2:12 PM [facility] Potassium 4.2 3.5 - 4.5 mmol/L 07/12/2020 2:12 PM [facility] Chloride 103 98 - 107 mmol/L 07/12/2020 2:12 PM [facility] CO2 26 22 - 29 mmol/L 07/12/2020 2:12 PM [facility] Glucose 133(H) 70 - 115 mg/dL 07/12/2020 2:12 PM [facility] Calcium 9.1 8.4 - 10.2 mg/dL 07/12/2020 2:12 PM [facility] Protein Total 6.9 6.0 - 8.3 g/dL 07/12/2020 2:12 PM [facility] Albumin 3.8 3.4 - 5.0 g/dL 07/12/2020 2:12 PM [facility] Bilirubin Total 1.0 0.2 - 1.2 mg/dL 07/12/2020 2:12 PM [facility] Alkaline Phosphatase 178(H) 40 - 150 Units/L 07/12/2020 2:12 PM [facility] ALT 18 0 - 55 Units/L 07/12/2020 2:12 PM [facility] AST 46(H) 5 - 34 Units/L 07/12/2020 2:12 PM [facility] Anion Gap 13 8 - 18 07/12/2020 2:12 PM [facility] BUN/Creatinine Ratio 17 7 - 23 07/12/2020 2:12 PM [facility] Osmolality Calculated 287 270 - 300 mOsm/kg 07/12/2020 2:12 PM [facility] Albumin/Globulin Ratio 1.2 1.1 - 2.3 07/12/2020 2:12 PM [facility] eGFR >60 >60 mL/min/1.7 3 m2 07/12/2020 2:12 PM [facility] Blood BLOOD SPECIMEN / Unknown Lab Venipuncture / Unknown 07/12/2020 12:54 PM HEALTH INFORMATION CLERK 07/12/2020 1:20 PM [facility] Billie Medrano MD LAB - CHEMISTRY CHERIE CABRALES [facility] Organization Address City/State/ZIP Co de Phone Number [facility] [address] [place] [phone], [facility] [phone] * HEPATITIS C ANTIBODY (04/04/2020 1:28 PM CDT) Hepatitis C Antibody Non-react cathi Non-reac tive 04/04/2020 3:27 PM CDT [facility] Comment:Hepatitis C Antibody screen indicates no serologic evidence of past or current infection with Hepatitis C Virus. Patients with unexplained liver disease who are immunocompromised or suspected of having acute Hepatitis C infection may benefit from Nucleic Acid Test (JOSE) for Hepatitis C Viral RNA to confirm Hepatitis C status. Blood BLOOD SPECIMEN / Unknown Lab Venipuncture / Unknown 04/04/2020 1:28 PM CDT 04/04/2020 2:36 PM CDT Billie Medrano MD LAB - CHEMISTRY CHERIE CABRALES [facility] [address] [place] [address], [place] [phone] * (ABNORMAL) LIPID PROFILE (11/09/2012 12:10 AM CDT) Cholesterol Total 199 <200 mg/dL [facility] HDL 56 > OR = 40 mg/dL [facility] Comment: ATP III classification of HDL cholesterol: <40 mg/dL Low; considered a major risk factor >60 mg/dL High; considered a negative risk factor Triglycerides 339(H) <150 mg/dL [facility] Comment: ATP III classification of Triglycerides: < 150 mg/dL ??Normal triglycerides 150-199 mg/dL Borderline-high triglycerides 200-400 mg/dL High triglycerides > 500 mg/dL ??Very high triglycerides LDL Calculated 75 0 - 100 mg/dL [facility] Comment: ATP III classification of LDL cholesterol: <100 mg/dL ??Optimal 100-129 Near optimal/above optimal 130-159 Borderline high 160-189 High >190 ?? Very high 11/09/2012 12:1 0 AM CDT 11/09/2012 12:31 AM CDT Narrative [facility] - 11/09/2012 12:19 PM CDT IS PATIENT ON HEPARIN? (Y OR N) N Paulo Nuñez MD LAB - CHEMISTRY CHERIE CABRALES [facility] [address] [place] [address], [facility] [phone] from Last 3 Months or Most Recently Relevant to Health Maintenance Advance Directives * Full Code (Latest Code Status on File) Date Activated Date Inactivated Comments 11/16/2018 3:08 AM 11/17/2018 7:07 PM Care Teams Continuity Manager Relationship Specialty Start Date End Date Fidel Camejo MD [address] [place] [phone] PCP - General Family Medicine 04/10/24
--- OUTSIDE RECORDS SUMMARY | 2024-07-07 15:15 | XMS_ITS | CONTINUITY OF CARE DOCUMENT ---
Author Name rell, rell Address Unknown Organization [facility] Address [address] [place] [address] Phone [phone] Care Team Providers Care Tariff Compiler Name Role Phone Goyo KONG, Sunny Unavailable Sunny Nance MD Unavailable [phone] PROBLEMS Condition Status Date Provider Notes Pre-operative respiratory examination active Arturo Maya FAMILY HISTORY OF HEART DISEASE active Jacoby Nance MD mothe had stent Overweight active Sunny Nance MD Hyperlipidemia active Sunny Nance MD Vitamin D deficiency active Sunny Duenas Health maintenance examination active Kurt Nance MD PREDIABETES; active Sunny Nance MD renal stone active Sunny Nance MD Tobacco abuse active Sunny Nance MD ENCOUNTERS Date Type Provider Location Encounter Diag nosis - In-person encounter Office Visit Sunny Nance MD [place] [facility] Tobacco abuserenal stonePREDIABETES;[facility] maintenance examinationVitamin D deficiencyHyperlipidemiaOverweightFAMILY HISTORY OF HEART [...] nda Her blood pressure, systolic 122 mm[Hg] [facility] oxygen saturation, oximetry 98 % [facility] respiratory rate E&M 16 /min [facility] pulse rate 90 /min [facility] weight E&M 171.8 [lb_av] [facility] height E&M 65 [in_i] [facility] ALLERGIES No Known Drug Allergies HISTORY OF [...] MD number of grandchildren Sunny Nance MD [facility] smoking status Current every day smoker W wilmer Her FUNCTIONAL STATUS Date Observation Value Provider periodic limb movement index absent (0) Jeff Herbert MD FAMILY HISTORY Family Member Condition Mother Family History of Co ronary Artery Disease: INSURANCE PROVIDERS Payer name Policy type / Coverage type [place] red [employer] [place] [employer] MEDICAID (2) Medicaid [id number] ADVANCE DIRECTIVES Name Date DISCUSSED - NO DECISION MADE TREATMENT PLAN Date Name Performer Cardiology Sunny Nance MD Cardiology Sunny Nance MD Cardiology Sunny Nance MD Cardiology Sunny Nance MD Cardiology:nml uacr Sunny duque MD Cardiology:nml psa, and tsh and mi commercial escrow officer alvbuymin Sunny Nance MD Date Name STR - Routine Complete Echo CT, Coronary Calcium Score DLCO - 54732 FRC - 14979 FVC - 62963 HISTORY OF PROCEDURES Procedure Date Procedure Name Provider Procedure Notes S tatus FVC / MVV with bronchodilator - 44792 Sunny Nance MD completed FRC - 21023 Sunny Nance MD complet ed SpO2 - 02778 Sunny Nance MD comple bebeto DLCO - 43652 Sunny Nance MD comple bebeto Stress EKG Saadrianneus Erik catalan MD completed EKG Sunny Nance MD complete d SNOMED-CT: [id number] Current Medications Documented Sunny Nance MD completed
--- OUTSIDE RECORDS SUMMARY | 2024-07-07 15:15 | XMS_ITS | Clinical Summary ---
Author Organization [facility] [email or web address] Address [address] [place] [address] Care Team Providers Care Bdc Manager Name Role Phone Fidel Camejo MD Primary Care Provider [phone] Source Comments [facility] [email or web address],non-owned Affiliates and Associated Physician Practices is amultiple site organization consisting of ambulatory clinics and hospital sitesin [place], [place], [place] and [place]. This disclosure is being madepursuant to the Care Everywhere program and may not contain all information available regarding this patient. Last updated 18.[facility] [email or web address] Allergies No known active allergies Medications * [...] cm (5' 5 ) 07/12/2020 10:23 AM BRIDGE TOLL COLLECTOR Body Mass Index 29.79 07/12/2020 10:23 AM BRIDGE TOLL COLLECTOR Plan of Treatment Health Maintenance Due Date Last Done Comments COLOGUARD (AGES 45-75) - COLON CA SCREENING 1971 COLON MONITORING 1971 COLONOSCOPY - COLON CA SCREENING 1971 CT COLONOGRAPHY - COLON CA SCREENING 1971 Colorectal Cancer Screening 1971 FIT - COLON CA SCREENING 1971 FLEX SIG - COLON CA SCREENING 1971 HIV SCREENING 1986 DTAP/TDAP/TD VACCINES (1 - Tdap) 1990 HEPATITIS B VACCINE (1 of 3 - 19+ 3-dose series) 1990 PNEUMOCOCCAL VACCINE 50+ (1 of 2 - PCV) 1990 PNEUMOCOCCAL VACCINE (1 of 2 - PCV) 1990 LIPID TESTING 11/09/2017 11/09/2012 ZOSTER VACCINE (1 of 2) 2021 SCREENING FOR DIABETES 07/12/2023 , 04/04/2020, 11/17/2018, Additional history exists COVID-19 VACCINE ( season) 2024 INFLUENZA VACCINE (#1) 2024 03/15/2022, 2012 DEPRESSION SCREENING 06/15/2024 HEPATITIS C SCREENING Completed 04/04/2020 HIB VACCINE Aged Out No longer eligi ble based on patient's age to complete this topic HPV VACCINE Aged Out No longer eligi ble based on patient's age to complete this topic MENINGOCOCCAL (Group B) VACCINE Aged Out No longer eligible based on patient's age to complete this topic MENINGOCOCCAL VACCINE Aged Out No jr ester eligible based on patient's age to complete this topic Goals Goal Patient Goal Type Associated Problems Recent Progress Patient-Stated? Author Medication Management General On track( 021 10:36 AM BRIDGE TOLL COLLECTOR) No Jose Juan Dumont, RN Note: Expected end date: Interventions: Take all medications as prescribed Let your doctor know right away about any changes in your medications Make sure to request a refill of your medication at least one week prior to your last dose Procedures Procedure Name Priority Date/Time Associated Diagnosis Comments COMPREHENSIVE METABOLIC PANEL Routine 07/12/2020 12:54 PM BRIDGE TOLL COLLECTOR Abdominal pain, unspecified abdominal location Chronic diarrhea HEPATITIS C ANTIBODY Routine 04/04/2020 1:28 PM CDT RUQ pain Abnormal finding on imaging of liver LIPID PROFILE Routine 11/09/2012 12:10 AM CDT from Last 3 Months or Most Recently Relevant to Health Maintenance Results * (ABNORMAL) COMPREHENSIVE METABOLIC PANEL (07/12/2020 12:54 PM BRIDGE TOLL COLLECTOR) BUN 10 7 - 26 mg/dL 07/12/2020 2:12 PM [facility] Creatinine 0.6 0.6 - 1.2 mg/dL 07/12/2020 2:12 PM [facility] Sodium 138 136 - 145 mmol/L 07/12/2020 2:12 PM [facility] Potassium 4.2 3.5 - 4.5 mmol/L 07/12/2020 2:12 PM [facility] Chloride 103 98 - 107 mmol/L 07/12/2020 2:12 PM [facility] CO2 26 22 - 29 mmol/L 07/12/2020 2:12 PM [facility] Glucose 133(H) 70 - 115 mg/dL 07/12/2020 2:12 PM [facility] Calcium 9.1 8.4 - 10.2 mg/dL 07/12/2020 2:12 PM [facility] Protein Total 6.9 6.0 - 8.3 g/dL 07/12/2020 2:12 PM [facility] Albumin 3.8 3.4 - 5.0 g/dL 07/12/2020 2:12 PM [facility] Bilirubin Total 1.0 0.2 - 1.2 mg/dL 07/12/2020 2:12 PM [facility] Alkaline Phosphatase 178(H) 40 - 150 Units/L 07/12/2020 2:12 PM [facility] ALT 18 0 - 55 Units/L 07/12/2020 2:12 PM [facility] AST 46(H) 5 - 34 Units/L 07/12/2020 2:12 PM [facility] Anion Gap 13 8 - 18 07/12/2020 2:12 PM [facility] BUN/Creatinine Ratio 17 7 - 23 07/12/2020 2:12 PM [facility] Osmolality Calculated 287 270 - 300 mOsm/kg 07/12/2020 2:12 PM [facility] Albumin/Globulin Ratio 1.2 1.1 - 2.3 07/12/2020 2:12 PM [facility] eGFR >60 >60 mL/min/1.7 3 m2 07/12/2020 2:12 PM [facility] Blood BLOOD SPECIMEN / Unknown Lab Venipuncture / Unknown 07/12/2020 12:54 PM BRIDGE TOLL COLLECTOR 07/12/2020 1:20 PM BRIDGE TOLL COLLECTOR Billie Medrano MD LAB - CHEMISTRY CHERIE CABRALES Performing Organization Address City/[facility]/ZIP Co de Phone Number [address] [address], [facility] [phone] * HEPATITIS C ANTIBODY (04/04/2020 1:28 PM CDT) Pathologist [facility] Hepatitis C Antibody Non-react cathi Non-reac tive 04/04/2020 3:27 PM CDT [facility] Comment:Hepatitis C Antibody screen indicates no [...] Medrano MD LAB - CHEMISTRY CHERIE CABRALES [address] [address], [place] [phone] * (ABNORMAL) LIPID PROFILE (11/09/2012 12:10 AM CDT) Cholesterol Total 199 <200 mg/dL [facility] HDL 56 > OR = 40 mg/dL [facility] Comment: ATP III classification of HDL cholesterol: <40 mg/dL Low; considered a major risk factor >60 mg/dL High; considered a negative risk factor Triglycerides 339(H) <150 mg/dL [facility] Comment: ATP III classification of Triglycerides: < 150 mg/dL ??Normal triglycerides 150-199 mg/dL Borderline-high triglycerides 200-400 mg/dL High triglycerides > 500 mg/dL ??Very high triglycerides LDL Calculated 75 0 - 100 mg/dL [facility] Comment: ATP III classification of LDL cholesterol: <100 mg/dL ??Optimal 100-129 Near optimal/above optimal 130-159 Borderline high 160-189 High >190 ?? Very high 11/09/2012 12:1 0 AM CDT 11/09/2012 12:31 AM CDT Narrative [facility] - 11/09/2012 12:19 PM CDT IS PATIENT ON HEPARIN? (Y OR N) N Paulo Nuñez MD LAB - CHEMISTRY CHERIE CABRALES [facility] Organization Address City/State/[facility] Co de Phone Number [facility] [address] [place] [address] from Last 3 Months or Most Recently Relevant to Health Maintenance Advance Directives * Full Code (Latest Code Status on File) Date Activated Date Inactivated Comments 11/16/2018 3:08 AM 11/17/2018 7:07 PM Care Teams Bdc Manager Relationship Specialty Start Date End Date Fidel Camejo MD [address] [place] [phone] PCP - General Family Medicine 04/10/24
--- OUTSIDE RECORDS SUMMARY | 2024-07-07 15:16 | XMS_ITS | Encounter Summary ---
Author Organization [facility] Address [address] [place] [address] Phone Care Team Providers Care Billposter Name Role Phone Dwight Nascimento MD Unavailable Matt Mathews MD Primary Care Provider [phone] Encounter Details Date Type Department Care Team (Late st Contact Info) Description 04/11/2024 Orders Only [facility] Scanning, Provider Social History Tobacco Use Types Packs/Day Years Used Date Smoking Tobacco: Former Cigarettes 0.3 15 0 12/12/2005 - 12/12/2020 Smokeless Tobacco: Never AUDIT-C Answer Date Recorded Q1: How often do you have a drink containing alc ohol? Never 2023 Average Number of Drinks Not on file 023 Frequency of Binge Drinking Not on file 12/14 PHQ-2 Answer Date Recorded PHQ-2 Total Score (If total score is 3 or more points, staff should administer the PHQ-9) 0 03/16/2023 Sex and Gender Information Value Date Recorded Sex Assigned at Not on file Legal Sex Male 9:05 AM BUTCHER SCULLION Gender Identity Male 06/09/2023 11:43 AM BUTCHER SCULLION Sexual Orientation Straight 06/09/2023 11 :43 AM BUTCHER SCULLION documented as of this encounter Plan of Treatment Not on file documented as of this encounter Procedures Procedure Name Priority Date/Time Associated Diagnosis Comments SCAN - LABS 04/11/2024 documented in this encounter Results * SCAN - LABS (04/11/2024) us Provider Scanning Final Result documented in this encounter Visit Diagnoses Not on filedocumented in this encounter Care Teams Billposter Relationship Specialty Start Date End Date Matt Mathews MD [address] [place] [address] PCP - General Family Medicine 03/31/22 Dwight Nascimento MD Consulting Physician Internal Medicine 09/20/21 documented as of this encounter
--- OUTSIDE RECORDS SUMMARY | 2024-07-07 15:16 | XMS_ITS | Encounter Summary ---
Author Organization [facility] Address [address] [place] [address] Phone Care Team Providers Care Gravure Printing Machinist Name Role Phone Dwight Nascimento MD Unavailable Matt Mathews MD Primary Care Provider [phone] Encounter Details Date Type Department Care Team (Late st Contact Info) Description 04/08/2024 Orders Only [facility] Scanning, Provider Social [...] on file Legal Sex Male 9:05 AM CIVIL ENGINEER IN TRAINING Gender Identity Male 06/09/2023 11:43 AM CIVIL ENGINEER IN TRAINING Sexual Orientation Straight 06/09/2023 11 :43 AM CIVIL ENGINEER IN TRAINING documented as of this encounter Plan of Treatment Not on file documented as of this encounter Procedures Procedure Name Priority Date/Time Associated Diagnosis Comments SCAN - LABS 04/08/2024 documented in this encounter Results * SCAN - LABS (04/08/2024) us Provider Scanning Final Result documented in this encounter Visit Diagnoses Not on filedocumented in this encounter Care Teams Gravure Printing Machinist Relationship Specialty Start Date End Date Matt Mathews MD [address] [place] [address] PCP - General Family Medicine 03/31/22 Dwight Nascimento MD Consulting Physician Internal Medicine 09/20/21 documented as of this encounter
--- OUTSIDE RECORDS SUMMARY | 2024-07-07 15:16 | XMS_ITS | Referral Summary ---
Author Organization [facility] [address] Address [address] [place] [address] Care Team Providers Care Editor & Co Founder Name Role Phone Dwight Nascimento MD Unavailable Matt Mathews MD Primary Care Provider [phone] Encounters Date Type Department Care Team Description 07/01/2024 Telephone [facility] Gastroenterology [address] [facility] [address] [place] [address] [place] [address] Nancy Christensen 06/29/2024 Telephone [facility] Gastroenterology [address] [facility] 12th [place] [address] [place] [address] Julissa Molina LPN 06/23/2024 11:55 AM LUNCH COUNTER MANAGER Lab [facility] [address] [place] [address] Alcoholic cirrhosis of liver with ascites (CMS/HCC) (HCC); Type 2 diabetes mellitus without complication, with long-term current use of insulin (CMS/HCC) (HCC) 06/23/2024 9:40 AM LUNCH COUNTER MANAGER Office Visit [facility] Gastroenterology [address] [facility] [address] [place] [address] Elan Hutchinson MD Alcoholic cirrhosis of liver with ascites (CMS/HCC) (HCC) (Primary Dx); Type 2 diabetes mellitus without complication, with long-term current use of insulin (CMS/HCC) (HCC); Alcohol use disorder; Hepatic encephalopathy (HCC) 06/10/2024 Orders Only [facility] [address] [place] [address] Matt Mathews MD 05/20/2024 Orders Only [facility] [address] [place] [id number] Matt Mathews MD 05/19/2024 Orders Only [facility] [address] [place] [id number] Matt Mathews MD 05/18/2024 Orders Only [facility] [address] [place] [id number] Scanning, Provider 05/17/2024 Orders Only [facility] [address] [place] [id number] Matt Mathews MD 05/05/2024 Telephone [facility] Gastroenterology [facility] 12th [place] [address] [place] [address] Serena Varghese LPN 05/03/2024 Orders Only [facility] [address] [place] [address] Matt Mathews MD 04/27/2024 Orders Only [facility] [address] [place] [phone] Scanning, Provider 04/19/2024 Orders Only [facility] [address] [place] [id number] Scanning, Provider 04/14/2024 Orders Only [facility] [address] [place] [id number] Matt Mathews MD 04/11/2024 Orders Only [facility] Scanning, Provider 04/08/2024 Orders Only [facility] Scanning, Provider from Last 3 Months Allergies Active Allergy Reactions Criticality Noted Date Comments Ceftriaxone Itching Low 04/15/2023 Ciprofloxacin Itching Low 04/15/2023 Medications ascorbic acid (VITAMIN C) 500 mg tablet,chewable 1 tablet/chew tab (500 mg total) daily Active pantoprazole DR (PROTONIX) 40 mg EC tablet Take 1 tablet (40 mg total) by mouth every 12 (twelve) hours 022 Active pen needle, diabetic (UltiCare Pen Needle) 29 gauge x 1/2 needle Use to inject 2 times daily as directed. 180 each 023 Active insulin lispro protamine-insulin lispro 75/25 (HumaLOG 75/25) 100 unit/mL pen for injection ADMINISTER 5 UNITS UNDER THE SKIN TWICE DAILY 9 mL 023 Active furosemide (LASIX) 40 mg tablet Take 2 tablets (80 mg total) by mouth 2 (two) times a day 360 tablet 3 023 Active potassium chloride ER (KLOR-CON) 20 mEq CR tabletIndications :Chronic diastolic congestive heart failure (CMS/HCC) (HCC) Take 1 tablet (20 mEq total) by mouth daily as needed (muscle cramps) 20 tablet 1 023 Active midodrine (PROAMATINE) 2.5 mg tablet Take by mouth 3 (three) times a day 023 Active ondansetron ODT (ZOFRAN-ODT) 4 mg disintegrating tabletIndications :Nausea and Vomiting Dissolve one tablet (4 mg) on the tongue every four hours as needed for nausea/vomitin g. 180 tablet 3 023 Active spironolactone (ALDACTONE) 25 mg tabletIndications :Alcoholic cirrhosis of liver with ascites (CMS/HCC) (HCC),Ascites due to alcoholic cirrhosis (CMS/HCC) (HCC) Take 6 tablets (150 mg total) by mouth 2 (two) times a day 240 tablet 3 023 Active OneTouch Ultra Test strip CHECK 2-3 TIMES DAILY 022 Active blood-glucose meter (The HuntTouch Ultra2 Meter) misc CHECK 2-3 TIMES PER DAY 022 Active cyclobenzaprine (FLEXERIL) 10 mg tablet Take 1 tablet (10 mg total) by mouth 3 (three) times a day as needed for muscle spasms 023 Active empagliflozin (Jardiance) 10 mg tablet Take 1 tablet (10 mg total) by mouth daily 022 Active lancets (The HuntTouch Delica Plus Lancet) 30 gauge misc CHECK 2-3 TIMES DAILY 022 Active oxyCODONE (ROXICODONE) 10 mg tablet 025 Active morphine ER (MS CONTIN) 60 mg 12 hr tablet 025 Active pregabalin (LYRICA) 50 mg capsule Take 1 capsule (50 mg total) by mouth 2 (two) times a day Active naloxone (NARCAN) 4 mg/actuation spray,non-aerosol Administer 1 spray into affected nostril(s) as needed for opioid reversal or respiratory depression for up to 2 doses Call 911. Administer a single spray in one nostril. Repeat every 3 minutes as needed if no or minimal response. 2 each 023 2024 Discontinued carvediloL (COREG) 12.5 mg tablet Take 1 tablet (12.5 mg total) by mouth every 12 (twelve) hours 180 tablet 3 023 2024 Discontinued gabapentin (NEURONTIN) 300 mg capsuleIndication s:insomnia, alcohol use disorder Take 1 capsule (300 mg total) by mouth nightly 90 capsule 3 023 2024 Discontinued clobetasoL (TEMOVATE) 0.05 % ointment Apply topically 2 (two) times a day 30 g 2 023 2024 Discontinued apixaban (ELIQUIS) 5 mg tablet Take 1 tablet (5 mg total) by mouth 2 (two) times a day [address] (CYMBALTA) 30 mg capsule 1 capsule (30 mg total) 022 2024 Discontinued metFORMIN (GLUCOPHAGE) 500 mg tablet 1 tablet (500 mg total) 022 2024 Discontinued Active Problems Problem Noted Date Diagnosed Date Bilateral pulmonary embolism (CMS/HCC) Portal hypertension (CMS/HCC) 04/15/2023 Prostate cancer 04/15/2023 Type 2 diabetes mellitus with hyperglycemia (CMS /HCC) 04/15/2023 Esophageal varices without bleeding (CMS/HCC) Assessment & Plan (02/02/2023 10:06 AM CDT): Stable, well controlled; patient had episode of hematemesis leading to hospitalization; EGD demonstrated only small varices with no episode of acute bleeding; bands placed at that time Continue to monitor Continue carvedilol 12.5 mg b.i.d. Neuropathy 10/30/2022 Assessment & Plan (03/31/2023 2:04 PM CDT): Continues to have significant pain, especially in left thigh; the rest of the lower extremities are okay; unclear if related to true neuropathy verses meralgia paresthetica; patient reports limited relief with gabapentin or pregabalin Given pressure from fluids; may be nerve compression Continue gabapentin 300 mg nightly Assessment & Plan (10/30/2022 12:54 PM CDT): Patient has significant pain in bilateral lower extremities, secondary to neuropathy Limited relief with current medications Continue Lyrica 70 mg b.i.d. Patient reports no relief with oxycodone, previously had good relief with hydrocodone; given patient can not tolerate acetaminophen products due to cirrhosis; will start hydrocodone ER 10 mg q.12 hours Bilateral lower extremity edema 08/18/2022 Assessment & Plan (08/18/2022 1:51 PM LUNCH COUNTER MANAGER): Patient reports decreased edema; low continues to have tightness and pain in bilateral lower extremities Concern for neuropathy Start Lyrica 50 mg t.i.d. Patient reports some diffuse erythema; no increased warmth, but has tenderness of lower extremities Will monitor closely; if erythema worsens; will start antibiotics for risk of cellulitis Morbid (severe) obesity due to excess calories 0 07/28/2022 Spinal stenosis in cervical region 04/29/2022 Partial thickness rotator cuff tear 04/29/2022 Clostridioides difficile infection 04/29/2022 Assessment & Plan (04/29/2022 1:45 PM LUNCH COUNTER MANAGER): To hospital for severe pain and diarrhea; started on antibiotics, but prescriptions been delayed due to insurance Patient continues to have 10-15 watery bowel movements per day with pain with bowel movements Patient to start vancomycin once prescribed will continue echo tone 5 mg for abdominal pain Gastrointestinal hemorrhage with melena 03/09/20 22 Leukopenia 10/25/2021 Microcytic anemia 10/25/2021 Other secondary thrombocytopenia 10/25/2021 Periumbilical hernia 09/22/2021 Assessment & Plan (07/10/2022 12:41 PM LUNCH COUNTER MANAGER): Continues to be present, causing pain and discomfort; patient would like referral to General surgery for evaluation of surgical repair Assessment & Plan (09/22/2021 10:19 AM CDT): Patient has persistent. Bili goal pain. Imaging has not revealed a hernia but he is adamant about being evaluated by a surgeon. Reviewed with him that the persistent buildup of fluid and retraining will put pressure in this area. I am unsure what the surgeon will say but will be glad to make the referral for another opinion. Strongly encouraged tight control of his cirrhosis with medical management through the GI for best outcome. Cough 09/22/2021 Assessment & Plan (09/22/2021 10:17 AM CDT): Persistent cough but no sputum production is clear. Will go ahead and check an x-ray to see if there is any respiratory issues. If this persists will need to follow up with Cardiology as has history of pericardial effusion secondary to his cirrhosis. Iron deficiency anemia due to chronic blood loss 09/15/2021 Assessment & Plan (03/31/2022 5:07 PM CDT): Stable, patient reports that his energy levels are normal, with mild dyspnea; history of severe anemia, with hemoglobin down to 4 Secondary to GI bleeding; patient appears to have upper and lower GI bleeding given esophageal varices, as well as patient reports bright red blood per rectum Continue monitor, patient follow-up with GI Assessment & Plan (09/15/2021 8:43 PM CDT): Continue iron supplement and monitor. For active bleeding. Monitor labs Obesity (BMI 30-39.9) 08/28/2021 Assessment & Plan (08/28/2021 10:45 AM CDT): Obesity is unchanged. Discussed the patient's BMI. The BMI is above average. BMI management plan is completed. BMI Follow-up includes: nutrition counseling, exercise counseling and education provided. BMI 33.0-33.9,adult 08/28/2021 Assessment & Plan (08/28/2021 10:45 AM CDT): Obesity is unchanged. Discussed the patient's BMI. The BMI is above average. BMI management plan is completed. BMI Follow-up includes: nutrition counseling, exercise counseling and education provided. Abdominal pain 06/13/2021 Assessment & Plan (09/16/2022 2:10 PM CDT): Chronic abdominal pain, secondary to ascites and cirrhosis Avoid tylenol containing products Will change to Oxycodone ER, and with oxycodone for breakthrough -follow up in 2 weeks to continue to titration of pain medication Assessment & Plan (07/29/2022 2:02 PM LUNCH COUNTER MANAGER): Patient reports generally improved pain management, though decreased response to 5 mg of oxycodone; discussed with patient metabolism pathway limits use of hydrocodone due to risk of overdose and accumulation of metabolites Will increase oxycodone at next refill Assessment & Plan (06/13/2021 10:19 AM LUNCH COUNTER MANAGER): Patient was advised given concern for an incarcerated umbilical hernia to report to the er now. He is going to [place]. He was asked to contact the office with results of this er visit for further discussion. Periumbilical abdominal pain 05/22/2021 Assessment & Plan (09/22/2021 10:14 AM CDT): Patient has persistent. Bili goal pain. Imaging has not revealed a hernia but he is adamant about being evaluated by a surgeon. Reviewed with him that the persistent buildup of fluid and retraining will put pressure in this area. I am unsure what the surgeon will say but will be glad to make the referral for another opinion. Strongly encouraged tight control of his cirrhosis with medical management through the GI for best outcome. Assessment & Plan (06/03/2021 6:29 PM LUNCH COUNTER MANAGER): Patient continues to complain of jeovany-umbilical abdominal pain and is requesting continued refills of Tramadol. When asked how many he had left he states he ran out of them a week ago -- He was just given #12 on 05/13 upon discharge from [place]. Today is 05/22 so if he ran out a week ago that was 05/15. He retracted and said he was just confused with the dates. Reviewed with patient that most cirrhosis patients do not require chronic narcotics for pain. After speaking with his GI in reviewing his notes he feels like his most significant pain should be related to the ascites and right now he just had his belly tapped so his pain should be at the lowest amount he has. However, patient still states he has pain around the umbilicus especially on the superior aspect. I do not feel a specific bulge there but this could be a hernia or some other underlying issue so imaging can be warranted. I stepped out of the exam room to have my staff call radiology to see if an ultrasound would help see periumbilical hernia due to patient's history. Was instructed to obtain CT with contrast of the pelvis for further evaluation. I sat back down with the patient and reviewed this information and advised will order CT for further evaluation of his pain. At this time I recommended that he continue with the Tylenol regimen at 2gm/24 hours as I don't know why he is having pain not explained by GI or Rheum cause. He became frustrated and stepped off the table and began to walk to the door stating he will request his medical records and seek additional care if I won't provide more pain control. Other chronic pain 12/12/2020 Assessment & Plan (12/12/2020 6:58 PM CDT): Patient complains of abdominal plain as well as ? pain all over? . Will send out tramadol for him to take sparingly for more severe pain. He has to have caution with NSAIDs due to his GI bleeds as well as Tylenol due to his cirrhosis. He may take 1-2 tramadol a day spaced out to manage his pain until were able to get him in with Rheumatology as I feel some of his pain is secondary to his elevated MEL and this will require diagnosis to plan treatment. Pericardial effusion 12/12/2020 Assessment & Plan (09/16/2022 2:08 PM CDT): Patient scheduled for repeat ECHO to evaluate pericardial effusion -follow-up based on ECHO findings Assessment & Plan (03/31/2022 5:05 PM CDT): Stable, no current signs or symptoms of tamponade; follows closely with Cardiology for management Assessment & Plan (12/12/2020 7:11 PM CDT): Still awaiting records from [place] regarding the Cardiology evaluation of the pericardial effusion. Patient appears compensated today is not having increased shortness of breath or pain or discomfort in the chest area or with breathing. Will continue with current regimen and follow-up pending the information. Otalgia, left 11/29/2020 Assessment & Plan (01/24/2021 1:34 PM CDT): Obesity is unchanged. Discussed the patient's BMI. The BMI is above average. BMI management plan is completed. BMI Follow-up includes: nutrition counseling, exercise counseling and education provided. Elevated antinuclear antibody (MEL) level 2020 Overview (09/22/2021): 10/2020: Positive MEL at 1:1280 nuclear, speckled, nucleolar 04/2021 [facility] note: +MEL: has high titer MEL 1:1280 but has no other clinical features of rheumatologic connective tissue disease at this time. Does have new diagnosis of Cirrhosis in the last year and a half without specific cause (Does have drinking history, maybe drank 4-5 beers twice per week at his heaviest). Infectious workup negative. A1AT, mitochondrial and smooth muscle antibodies negative. Query whether this could be autoimmune hepatitis given the high titer MEL and lack of other CTD symptoms. He will see hepatology today for further evaluation. 05/14/2021 [facility]: Discussed with patient that most likely etiology of cirrhosis is ETOH-related. Unlikely autoimmune with normal LFTs, -ve ASMA, despite highly +ve MEL. Assessment & Plan (06/03/2021 6:10 PM LUNCH COUNTER MANAGER): Positive MEL. Per Rheumatology evaluation there is no rheumatologic cause for his symptoms as he does not have any clinical features of rheumatologic connective tissues disease at this time. Hence none of his pain is related to an autoimmune condition at this point. Assessment & Plan (01/27/2021 10:05 PM CDT): Awaiting recommendation from [facility] Rheum. Has Oct appointment Assessment & Plan (12/12/2020 6:57 PM CDT): Positive MEL. Was referred to Rheumatology. It appears per my records that they attempted to call him while he was in the hospital. He does get his phone was able to find this message implants to call them back to set this appointment. Reviewed with him he can see the provider referred him to or request 1st available within the office to get an even sooner. He voices understanding will place the call Assessment & Plan (11/20/2020 10:38 PM CDT): Concern for autoimmune hepatitis. If this is ruled out, will need referral to Rheum Hypertension associated with diabetes 11/20/2020 Assessment & Plan (03/31/2023 2:03 PM CDT): Stable, no longer having episodes of hypertension; has episodes of hypotension due to significant volume depletion; continue carvedilol 12.5 mg b.i.d., midodrine 2.5 mg t.i.d. p.r.n. for hypotension Assessment & Plan (02/02/2023 10:08 AM CDT): Stable, well controlled; patient reported hypotension while in hospital, however now blood pressures have been returning to normal; typically running in the 120 systolic Continue spironolactone 100 mg b.i.d., furosemide 80 b.i.d. carvedilol 12.5 mg b.i.d. Assessment & Plan (03/31/2022 5:04 PM CDT): Blood pressure is mildly elevated today; continue nifedipine 60 mg daily; given varices will start beta-laura Start carvedilol 6.25 mg b.i.d. Assessment & Plan (01/27/2021 10:04 PM CDT): Continue lasix 40, aldactone 25mg Increase Nadolol to 40mg daily. Followup in 2 weeks to recheck bp. Assessment & Plan (12/12/2020 6:53 PM CDT): Not well controlled. Encouraged to limit sodium intake and exercise for weight control. BB was started in the hospital about 3 days ago. On Nadolol 20mg qAM. Will send order for BP cuff to monitor at home. Encouraged to work toward readings in the 120/80s. Assessment & Plan (11/20/2020 10:37 PM CDT): Bp is not well controlled for any co-morbidities. Encouraged to limit sodium intake and exercise for weight control. Appears to be increasing ? Secondary to ascites/fluid overload. 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 Patient is not complaining of any back pain. Cirrhosis of liver with ascites (CMS/HCC) 2020 Overview (05/14/2021): He was then diagnosed with cirrhosis in Mar 2020, EGD then with PHG only without EV, s/p 5 times paracentesis, was diagnosed with SBP and treated with Ciprofloxacin. MELD-Na 22 upon diagnosis, AST > ALT. No hx of HE/jaundice. MRCP 05/2020 at [facility] with cirrhosis/hepatic steatosis, 1.8 cm arterially enhancing observation without washout in segment 5 (LR-3). Labs at [facility] with +ve MEL 1:1280 but -ve AMA/ASMA, normal total IGG, normal ceruloplasmin/A1AT/HFE gene analysis despite elevated ferritin. AFP 4.6 in 03/2020. Hepatitis panel -ve (non-immune to Hep B). Labs 10/2020 with normal AST/ALT, TB 0.4, AKP 138, SCr 0.78, plts 120s, Na 139, INR 1.1 in 06/2020, MELD 7. Last drink 12/2020. Has developed bleeding EV requiring banding x 2 done locally at [facility] in [place], based on OSH records 1 EGD was 11/2020, per patient last was ?01/2021, on nadolol 40. Last paracentesis was yesterday, 1.5L, sent for analysis per pt but results unavailable, on lasix 40/spirono 50. Discussed with patient that most likely etiology of cirrhosis is ETOH-related. Unlikely autoimmune with normal LFTs, -ve ASMA, despite highly +ve MEL. Assessment & Plan (03/31/2023 2:03 PM CDT): Not well controlled; continues to have significant ascites; admitted for 11 days, removing 5 L with each paracentesis; due to extensive fluids; has been having draining from site with use of colostomy bags reduce excess drainage Continue with regular parents steatosis to reduce pain and discomfort associated with ascites Continue oxycodone 30 mg every 6 hours; will start hydrocodone 7.5 mg every 8 hours between doses to help with breakthrough pain Assessment & Plan (02/02/2023 10:08 AM CDT): Stable, continues to have significant reaccumulation; gets recurrent paracentesis Patient reports he had approximately 4-1/2-5 L removed during hospitalization; at this time currently does not have significant reaccumulation Continue monitor closely Assessment & Plan (10/30/2022 12:53 PM CDT): Not well controlled, continues to have significant amounts of acidic retention; mostly recently required paracentesis due to dyspnea with 6 L removed Increase furosemide to 80 mg b.i.d., continue spironolactone 100 mg b.i.d. Continue with scheduled paracentesis Assessment & Plan (09/16/2022 2:07 PM CDT): Not well controled; worsening, elevated bilirubin, elevated alk phos; more frequent high volume ascitic fluid -evaluated by hepatic clinic; concern for HCC given history of liver mass -concern for end of life care; -continue with regular paracentesis; limit acetaminophen to <2000 mg per day -continue to monitor bilirubin at each paracentesis Assessment & Plan (08/18/2022 1:49 PM LUNCH COUNTER MANAGER): Not well controlled, patient had 5 L removed by paracentesis 1 week ago; is already refilled with ascitic fluid Patient to follow-up with cardiology on will likely need standing order for paracentesis Continue furosemide 80 mg b.i.d., spironolactone 100 mg daily Complicated by worsening peripheral edema Patient to follow-up with hepatology at end of week Assessment & Plan (08/04/2022 10:04 AM LUNCH COUNTER MANAGER): Not well controlled; continues to have significant ascites; as well as peripheral edema; possibly due to hepatic congestion Patient scheduled for paracentesis tomorrow; will continue to evaluate need for continued therapeutic paracentesis No evidence SBP; no fevers nausea or other infectious symptoms Increase furosemide to 80 mg b.i.d.; continue spironolactone 100 mg daily; will increase spironolactone as needed Check potassium levels in 1 week Patient reports worsening pain due to increased peripheral edema; will transition to hydrocodone 7.5 mg t.i.d. as patient reports better relief on hydrocodone compared to oxycodone Patient to discard oxycodone at safe disposal site Assessment & Plan (07/29/2022 2:01 PM LUNCH COUNTER MANAGER): Not well controlled, worsening; patient has recurrent ascites; recently had 5 L drained, but reports reaccumulation, as well as worsening bilateral lower extremity edema Continue furosemide 40 mg b.i.d., spironolactone 100 mg daily Patient referred for therapeutic paracentesis Patient to follow-up with [facility] Labs indicate advanced liver disease, elevated bilirubin, low albumin and total protein, PTT and PT normal Patient reports only mild alcohol use, less than 1 per day of beer, no episodes of drinking hard liquor Patient reports history of NAFLD Assessment & Plan (07/10/2022 12:43 PM LUNCH COUNTER MANAGER): Admitted for EGD with banding, required 3 units of blood Continue to monitor, continue carvedilol 12.5 mg b.i.d. Continue furosemide 40 mg b.i.d., spironolactone 100 mg daily Continues to have significant abdominal pain; given cirrhosis continue oxycodone 5 mg q.8 hours p.r.n. severe pain Assessment & Plan (03/31/2022 5:06 PM CDT): Stable, not well controlled; patient only recently required paracentesis with 2 L removed; today has some tenderness in for 2 months; does not acutely ill, low concern for spontaneous bacterial peritonitis Continue with furosemide 40 mg b.i.d., spironolactone 100 mg daily Patient to follow-up with hepatology Assessment & Plan (09/22/2021 10:13 AM CDT): Continue per GI at [facility] for his cirrhosis. Stressed importance of following up on a regular basis due his progressive disease. Assessment & Plan (09/15/2021 8:39 PM CDT): Continue per hepatology at [facility] Assessment & Plan (06/03/2021 6:09 PM LUNCH COUNTER MANAGER): Continue her GI at [facility], Dr. Jasso. He has been started on new medication to help decrease the ascites buildup. Encouraged him to follow their directions and keep his appointments. Strongly encouraged complete cessation of alcohol. I reviewed the lab results regarding alcohol use. He still adamant that he has not drank since his 51th birthday. Assessment & Plan (05/14/2021 12:07 PM LUNCH COUNTER MANAGER): - MELD labs today, and repeat autoimmune serologies - Will adjust diuretic regimen to lasix 40, spironolactone 100 daily, will request complete fluid analysis including total protein level with next paracentesis, given significant pulm HTN noted on recent TTE - Restart ciprofloxacin for SBP prophylaxis - Counseled on low Na diet - Counseled on importance of complete ETOH abstinence - Will adjust BB from Nadolol 40 to Coreg 6.25 BID - Schedule EGD for variceal screening/banding within next few weeks, advised to immediately head to local ED if develops recurrent hematemesis - Repeat MRI liver WWO contrast for HCC screening, especially with hx of LR-3 lesion - Not a candidate for TIPS given pulm HTN, advised evaluation by Cardiology Assessment & Plan (01/27/2021 10:05 PM CDT): If sxs increase he needs to followup with local GI. Await recommendation from [facility] hepatology Assessment & Plan (12/12/2020 6:56 PM CDT): I do not have a discharge summary to summarize the entire stay but he is having systemic cirrhosis symptoms. Some ascites but not enough to tap. Esophageal varices were banded but patient states he will be returning to Dr. Guerin for possible retreatment as there were many. No active bleeding. He was started on a beta- laura to help with blood pressure was well as this increased pressure on the right side. He is on Lasix as well as Aldactone and will continue to monitor closely. He plans to follow-up with Dr. Guerin. Patient would like to be referred to [facility] to see the hepatology group therefore continuity of care a since they are part of the [facility] system and can share medical records. Will make that referral Assessment & Plan (12/02/2020 10:30 AM CDT): Per GI note, unknown etiology of the cirrhosis/ascites. However, I have placed a call to Dr. Rodriguez, Attending GI at [facility] to discuss his recent labs, most importantly the positive MEL at 1:1280. I left a message on 11/20 and will await return call. I have concern for possible autoimmune hepatitis as the underlying cause. Patient appears to have increased ascites over the past few weeks. Increased pain. Increased orthopnea. Will check abdominal US at [place] (patient to schedule on own as order and phone number provided). If has acute increase in sxs, encouraged to present to [facility] ER for further evaluation so GI/heapatology group can evaluate. He would like to transfer care to [facility]. Tramadol a few times a day is managing pain. Monitor closely Dr. Gordon, guest associate at [facility] returned my call on November 23. Discussed patient at length. In summary she is less concerned that this is autoimmune hepatitis because the smooth muscle was negative. She encouraged checking IgG and if positive, will encourage liver bx. If negative, she will manage his cirrhosis but the ASA elevattion is probably not related to the liver and will need to see Rheum. Assessment & Plan (11/12/2020 2:00 PM CDT): Stressed importance of followup with guest associate. He states he has followup with Dr. Medrano at [facility] at the end of October and next week with Dr. Claros. He is having daily pain. Attempted to contact Dr Claros. Multiple messages left with staff and call not returned. Will await recommendations from Dr. Medrano. Discussed referral to [facility] guest associate --- patient has a family member in the system so will see if can get in quicker as I was last told wait is 3-4 months. Check MEL and labs Fatigue 11/12/2020 Assessment & Plan (09/15/2021 8:40 PM CDT): Probably multifactorial. Check labs and followup to re-evaluate Assessment & Plan (11/20/2020 10:39 PM CDT): persistent Assessment & Plan (11/12/2020 2:01 PM CDT): Probably multifactorial. Check labs and followup to re-evaluate Type 2 diabetes mellitus with hyperlipidemia (CM S/HCC) 11/12/2020 Assessment & Plan (02/02/2023 10:05 AM CDT): Stable, well controlled; patient reports home blood sugars are running 110 to 120s Continue Humalog 75/25, 5 units b.i.d. Continue low-carbohydrate diet Assessment & Plan (07/10/2022 12:44 PM LUNCH COUNTER MANAGER): Not well controlled, has been on insulin in the hospital; currently blood sugars running as high as 290 Will prescribe insulin 75-25 5 units b.i.d. Assessment & Plan (03/31/2022 5:05 PM CDT): Previously diagnosed, but unclear of correct diagnosis Will check fasting metabolic panel today; given chronic anemia, A1c will be an accurate continue to monitor encourage low-carbohydrate diet Assessment & Plan (09/22/2021 10:13 AM CDT): Encouraged patient to follow low fat/low chol diet like the Mediterranean diet. Increase good fats in the diet. Increase exercise. Monitor labs as needed. Not considering a statin at this point due to cirrhosis history Assessment & Plan (09/15/2021 8:42 PM CDT): Encouraged patient to follow low fat/low chol diet like the Mediterranean diet. Increase good fats in the diet. Increase exercise. Monitor labs as needed. Hold statin due to cirrhosis. Assessment & Plan (11/20/2020 10:33 PM CDT): Encouraged patient to follow fat/low chol diet like the Mediterranean diet. Increase good fats in the diet. Increase exercise. Monitor labs as needed. Assessment & Plan (11/12/2020 2:01 PM CDT): Check labs Prostate cancer screening 11/12/2020 Assessment & Plan (11/12/2020 2:01 PM CDT): Check labs as hasn't been checked in years after history of prostate CA Gastroesophageal reflux disease without esophagi tis 10/19/2020 Assessment & Plan (12/12/2020 6:54 PM CDT): Continue PPI Assessment & Plan (11/20/2020 10:33 PM CDT): Continue PPI bid Other ascites 04/20/2020 Left inguinal pain 11/16/2018 Paresthesia of left leg 11/16/2018 Assessment & Plan (02/02/2023 10:06 AM CDT): Stable, unclear etiology; given location, concern for meralgia paresthetica verses neuropathy Will get EMG to better understand potential cause of symptoms Continue gabapentin 300 mg at bedtime Assessment & Plan (09/16/2022 2:11 PM CDT): Continues to have neuropathic pain; some relief with Lyrica; patient has patch on left thigh, maybe neuropathy vs parathesia meralgia Given adjustment to narcotic pain medication, will hold Lyrica at current dose, start Capsacin cream for topical relief Hyperlipidemia 06/16/2017 Nicotine dependence, unspecified, uncomplicated 06/16/2017 Resolved Problems Problem Noted Date Diagnosed Date Resolved Date Obesity (BMI 30-39.9) 05/22/20212021 Assessment & Plan (05/22/2021 10:54 AM LUNCH COUNTER MANAGER): Obesity is unchanged. Discussed the patient's BMI. The BMI is above average. BMI management plan is completed. BMI Follow-up includes: nutrition counseling, exercise counseling and education provided. BMI 31.0-31.9,adult 05/22/2021 08/29/19 22 Assessment & Plan (05/22/2021 10:54 AM LUNCH COUNTER MANAGER): Obesity is unchanged. Discussed the patient's BMI. The BMI is above average. BMI management plan is completed. BMI Follow-up includes: nutrition counseling, exercise counseling and education provided. Obesity (BMI 30-39.9) 01/24/20212020 Assessment & Plan (01/24/2021 1:34 PM CDT): Obesity is unchanged. Discussed the patient's BMI. The BMI is above average. BMI management plan is completed. BMI Follow-up includes: nutrition counseling, exercise counseling and education provided. BMI 30.0-30.9,adult 01/24/2021 05/22/20 21 BMI 29.0-29.9,adult 12/12/2020 01/25/20 21 Assessment & Plan (12/12/2020 1:02 PM CDT): Weight/BMI is in healthy range. Continue healthy lifestyle to maintain. Acute non-recurrent pansinusitis 11/29/2020 12/12/2020 Assessment & Plan (11/29/2020 1:23 PM CDT): Advised increased fluids, rest F/u in 72h if not improving, sooner if worsening Obesity (BMI 30-39.9) 11/20/20202020 Assessment & Plan (11/29/2020 1:05 PM CDT): Obesity is unchanged. Discussed the patient's BMI. The BMI is above average. BMI management plan is completed. BMI Follow-up includes: nutrition counseling, exercise counseling and education provided. Assessment & Plan (11/20/2020 11:27 AM CDT): Obesity is unchanged. Discussed the patient's BMI. The BMI is above average. BMI management plan is completed. BMI Follow-up includes: nutrition counseling, exercise counseling and education provided. BMI 31.0-31.9,adult 11/20/2020 12/13/19 Assessment & Plan (11/29/2020 1:05 PM CDT): Obesity is unchanged. Discussed the patient's BMI. The BMI is above average. BMI management plan is completed. BMI Follow-up includes: nutrition counseling, exercise counseling and education provided. Assessment & Plan (11/20/2020 11:27 AM CDT): Obesity is unchanged. Discussed the patient's BMI. The BMI is above average. BMI management plan is completed. BMI Follow-up includes: nutrition counseling, exercise counseling and education provided. Obesity (BMI 30-39.9) 10/19/20202020 Assessment & Plan (10/19/2020 9:05 AM CDT): Obesity is unchanged. Discussed the patient's BMI. The BMI is above average. BMI management plan is completed. BMI Follow-up includes: nutrition counseling, exercise counseling and education provided. BMI 31.0-31.9,adult 10/19/2020 11/21/19 21 Assessment & Plan (10/19/2020 9:05 AM CDT): Obesity is unchanged. Discussed the patient's BMI. The BMI is above average. BMI management plan is completed. BMI Follow-up includes: nutrition counseling, exercise counseling and education provided. Immunizations Name Administration Dates Next Due Hep A, Adult 11/25/2001 Influenza, Trivalent, Preser vative Free, Intramuscular 06/29/2012 Influenza, Unspecified 03/16/2023(Deferr ed: Patient Refused),02/02/2023(Deferred: Patient Refused),07/28/2022(Deferred: Patient Refused),03/31/2022(Deferred: Patient Refused),03/15/2022,06/15/2021(Deferre d: Patient Refused),06/15/2021(Deferred: Patient Refused),05/22/2021(Deferred: Patient Refused) Tdap 01/22/2017 Social History Tobacco Use Types Packs/Day Years Used Date Smoking Tobacco: Every Day Cigarettes 0.3 15 Started: 12/12/2005; Last attempted to quit: 12/12/2020 Smokeless Tobacco: Never Tobacco Cessation:Ready to Q uit: No; Counseling Given: Not Answered AUDIT-C Answer Date Recorded Q1: How often do you have a drink containing alcohol? Never 06/23/2024 Q2: How many drinks containi ng alcohol do you have on a typical day when you are drinking? Patient does not drink Q3: How often do you have si x or more drinks on one occasion? Never 06/23/2024 PHQ-2 Answer Date Recorded PHQ-2 Total Score (If total score is 3 or more points, staff should administer the PHQ-9) 0 03/16/2023 Sex and Gender Information Value Date Recorded Sex Assigned at Not on file Legal Sex Male 9:05 AM LUNCH COUNTER MANAGER Gender Identity Male 06/09/2023 11:43 AM LUNCH COUNTER MANAGER Sexual Orientation Straight 06/09/2023 11 :43 AM LUNCH COUNTER MANAGER Last Filed Vital Signs Vital Sign Reading Time Taken Comments Blood Pressure 94/60 06/23/2024 10:30 AM LUNCH COUNTER MANAGER Pulse 80 06/23/2024 10:30 AM LUNCH COUNTER MANAGER Temperature 37 ??C (98.6 ??F) 06/23/2024 10:30 AM LUNCH COUNTER MANAGER Respiratory Rate 16 06/23/2024 10:30 AM LUNCH COUNTER MANAGER Oxygen Saturation 94% 06/23/2024 10:30 AM LUNCH COUNTER MANAGER Inhaled Oxygen Concentration - - Weight 68.6 kg (151 lb 3.2 oz) 06/23/2024 10:30 AM LUNCH COUNTER MANAGER Height 165.1 cm (5' 5 ) 06/23/2024 10:30 AM LUNCH COUNTER MANAGER Body Mass Index 25.16 06/23/2024 10:30 AM LUNCH COUNTER MANAGER Plan of Treatment Not on file Procedures Procedure Name Priority Date/Time Associated Diagnosis Comments EGD Routine 07/05/2024 1:14 PM LUNCH COUNTER MANAGER EGFR Routine 06/23/2024 12:02 PM LUNCH COUNTER MANAGER Alcoholic cirrhosis of liver with ascites (CMS/HCC) (HCC) DIFFERENTIAL AUTO Routine 06/23/2024 12: 02 PM LUNCH COUNTER MANAGER Alcoholic cirrhosis of liver with ascites (CMS/HCC) (HCC) CBC WITH AUTO DIFFERENTIAL Routine 06/23 12:02 PM LUNCH COUNTER MANAGER Alcoholic cirrhosis of liver with ascites (CMS/HCC) (HCC) COMPREHENSIVE METABOLIC PANEL Routine 06/23/2024 12:02 PM LUNCH COUNTER MANAGER Alcoholic cirrhosis of liver with ascites (CMS/HCC) (HCC) PROTIME-INR Routine 06/23/2024 12:02 PM LUNCH COUNTER MANAGER Alcoholic cirrhosis of liver with ascites (CMS/HCC) (HCC) [id number], TUMOR MARKER Routine 06/23/2024 12:02 PM LUNCH COUNTER MANAGER Alcoholic cirrhosis of liver with ascites (CMS/HCC) (HCC) PHOSPHATIDYLETHANOL Routine 06/23/2024 1 2:02 PM LUNCH COUNTER MANAGER Alcoholic cirrhosis of liver with ascites (CMS/HCC) (HCC) HEMOGLOBIN A1C Routine 06/23/2024 12:02 PM LUNCH COUNTER MANAGER Alcoholic cirrhosis of liver with ascites (CMS/HCC) (HCC) Type 2 diabetes mellitus without complication, with long-term current use of insulin (CMS/HCC) (HCC) SCAN - RADIOLOGY/IMAGING 06/10/2024 EGD Routine 05/20/2024 12:45 PM LUNCH COUNTER MANAGER SCAN - RADIOLOGY/IMAGING 05/20/2024 SCAN - RADIOLOGY/IMAGING 05/19/2024 SCAN - RADIOLOGY/IMAGING 05/18/2024 SCAN - RADIOLOGY/IMAGING 05/17/2024 SCAN - RADIOLOGY/IMAGING 05/03/2024 SCAN - RADIOLOGY/IMAGING 04/27/2024 SCAN - RADIOLOGY/IMAGING 04/19/2024 SCAN - RADIOLOGY/IMAGING 04/14/2024 SCAN - LABS 04/11/2024 SCAN - LABS 04/08/2024 ALBUMIN CREATININE RATIO, URINE Routine 08/15/2022 POCT LIPID PANEL Routine 07/28/2022 9:31 AM LUNCH COUNTER MANAGER Lipid screening HM COLONOSCOPY Routine 03/12/2022 PSA SCREEN Routine 10/19/2020 10:46 AM CDT Prostate cancer screening from Last 3 Months or Most Recently Relevant to Health Maintenance Results * EGD -[facility] (07/05/2024 1:14 PM LUNCH COUNTER MANAGER) Anatomical Region Laterality Modality Other us Historical Provider GI PROCEDURE ORDERABLES F inal Result * Phosphatidylethanol (06/23/2024 12:02 PM LUNCH COUNTER MANAGER) PHOSPHATIDYLETHANOL Negative . [place] ref [facility] Comment: ADDITIONAL INFORMATION This report is intended for use in clinical monitoring and management of patients. ??It is not intended for use in employment-related testing. This test was developed and its performance characteristics determined by [facility] in a manner consistent with CLIA requirements. This test has not been cleared or approved by the U.S. Food and Drug Administration. Test Performed by: [facility] [address] [place] [address] Balance Recesser: Smooth Goff Ph.D.; CLIA# [id number] PEth 16:0/18:1 (POPEth)by LC-MS/MS <10 Cutoff: 10 ng/mL [facility] Comment: Phosphatidylethanol (PEth) homologues result interpretation PEth 16:0/18:1 (POPEth) Less than 10 ng/mL: Not detected 10 - 19 ng/mL: Abstinence or light alcohol consumption (<2 drinks per day for several days a week) 20 - 200 ng/mL: Moderate alcohol consumption (up to 4 drinks per day for several days a week) Greater than 200 ng/mL: Heavy alcohol consumption or chronic alcohol use (at least 4 drinks per day several days a week) (Reference: Blanquita Bhatti and Divya Cunha 2018 J. Forensic Sci) Phosphatidylethanol 16:0/18:2 (PLPEth) by LC-MS/MS <10 Cutoff: 10 ng/mL [facility] Comment: PEth 16:0/18:2 (PLPEth) Reference ranges are not well established Blood 06/23/2024 12:0 2 PM LUNCH COUNTER MANAGER 06/23/2024 12:16 PM LUNCH COUNTER MANAGER us Elan Hutchinson MD LAB BLOOD ORDERABLES Final Res ult [facility] [address] [facility]. Department [place] [address] [place] ref [facility] * (ABNORMAL) eGFR (06/23/2024 12:02 PM LUNCH COUNTER MANAGER) eGFR 55(L) >=60 mL/min/1. 73 m2 Comment: Interpretive Data Reference Interval Normal ?>/= 90 mL/min/1.73m2 Mildly decreased* ? 60 - 89 mL/min/1.73m2 Mildly to moderately decreased ?45 - 59 mL/min/1.73m2 Moderately to severely decreased ??30 - 44 mL/min/1.73m2 Severely decreased ?15 - 29 mL/min/1.73m2 Kidney Failure ?< 15 ??mL/min/1.73m2 *Relative to young adult level Estimated glomerular filtration rate is determined by the 2020 CKD-EPI equation recommended by the National Kidney Foundation (A Unifying Approach to GFR Estimation: Recommendations of the NKF-ASK Task Force on Reassessing the Inclusion of Race in Diagnosing Kidney Disease, JASN 2020). The CKD-EPI equation should not be used for patients with unstable renal function and has not been validated in children and those over 70. Current interpretive data was last reviewed 2021. Blood 06/23/2024 12:0 2 PM LUNCH COUNTER MANAGER 06/23/2024 12:16 PM LUNCH COUNTER MANAGER us Elan Hutchinson MD LAB BLOOD ORDERABLES Final Res ult [facility] [address] [facility]. [place] [address] * Differential, auto (06/23/2024 12:02 PM LUNCH COUNTER MANAGER) Neutrophil abs 4.3 1.5 - 6.5 K/cumm Imm gran abs 0.0 0.0 - 0.1 K/cumm [facility] Lymphocyte abs 0.8 0.8 - 3.3 K/cumm [facility] Monocyte abs 0.8 0.2 - 0.8 K/cumm [facility] Eosinophil abs 0.1 0.0 - 0.5 K/cumm [facility] Basophil abs 0.0 0.0 - 0.1 K/cumm [facility] Neutrophil pct 71.3 % [facility] Comment: Interpretive Data Percent cell count reference ranges are not reported, since discordance with absolute values may lead to misinterpretation of CBC data. Current Interpretive Data was last revised on 2017. Imm gran pct 0.5 % [facility] Comment: Interpretive Data Percent cell count reference ranges are not reported, since discordance with absolute values may lead to misinterpretation of CBC data. Current Interpretive Data was last revised on 2017. Lymphocyte pct 13.0 % [facility] Comment: Interpretive Data Percent cell count reference ranges are not reported, since discordance with absolute values may lead to misinterpretation of CBC data. Current Interpretive Data was last revised on 2017. Monocyte pct 12.9 % [facility] Comment: Interpretive Data Percent cell count reference ranges are not reported, since discordance with absolute values may lead to misinterpretation of CBC data. Current Interpretive Data was last revised on 2017. Eosinophil pct 1.8 % [facility] Comment: Interpretive Data Percent cell count reference ranges are not reported, since discordance with absolute values may lead to misinterpretation of CBC data. Current Interpretive Data was last revised on 2017. Basophil pct 0.5 % [facility] Comment: Interpretive Data Percent cell count reference ranges are not reported, since discordance with absolute values may lead to misinterpretation of CBC data. Current Interpretive Data was last revised on 2017. Blood 06/23/2024 12:0 2 PM LUNCH COUNTER MANAGER 06/23/2024 12:16 PM LUNCH COUNTER MANAGER us Elan Hutchinson MD LAB BLOOD ORDERABLES Final Res ult [facility] [address] [facility]. [place] [address] * (ABNORMAL) CBC with auto differential (06/23/2024 12:02 PM LUNCH COUNTER MANAGER) WBC 6.1 3.8 - 9.9 K/cumm Hgb 12.8(L) 13.0 - 17.5 g/dL [facility] Hct 40.8 38.9 - 50.3 % [facility] Plt 99(L) 150 - 400 K/cumm [facility] MPV 10.6 9.1 - 12.3 fL [facility] RBC 4.35 4.30 - 5.80 M/cumm [facility] MCV 93.8 81.3 - 96.4 fL [facility] MCH 29.4 27.1 - 33.3 pg [facility] MCHC 31.4(L) 32.3 - 35.7 g/dL [facility] RDW CV 15.4(H) 11.1 - 14.9 % [facility] RDW SD 53.1(H) 35.7 - 48.1 fL [facility] NRBC abs 0.00 0.00 - 0.01 K/cumm [facility] Blood 06/23/2024 12:0 2 PM LUNCH COUNTER MANAGER 06/23/2024 12:16 PM LUNCH COUNTER MANAGER us Elan Hutchinsno MD LAB BLOOD ORDERABLES Final Res ult [facility] [address] [facility]. [place] [address] * [id number], Tumor Marker (06/23/2024 12:02 PM LUNCH COUNTER MANAGER) alpha Fetoprotein <1.8 <=8.3 ng/mL Comment: Interpretive Data The Elaina AFP assay procedure was used. Results from different manufacturers or methods may not be comparable. Serial testing should be performed using the same method. 0-1 ??month. ?? AFP concentrations may reach or exceed 100,000 ng/mL after depending on gestational age and weight. 1-3 months ? 50 ? 1000 ng/ml 3-6 months ? 10 ? 500 ng/ml 6-12 months ?3.0 ? 100 ng/ml >1 year ?0.0 ? 8.3 ng/ml References Jaquelin Coburn et al. ??J. Ped Surg 1978;13:155-156 Jake Montenegro et al. Clin Chem Lab Med 2018;57:783-797 Brenden Ellsworth et al. ??Clin Chem 2014;1376-5588. Current interpretive data was last revised 2022. Testing performed by: [facility], [facility] [facility], [place]., [address] Blood 06/23/2024 12:0 2 PM LUNCH COUNTER MANAGER 06/23/2024 2:22 PM LUNCH COUNTER MANAGER Elan Hutchinson MD LAB BLOOD ORDERABLES Final Res ult Performing Organization Address [facility] de Phone Number [facility] [address] [facility] [place] [address] * Protime-INR (06/23/2024 12:02 PM LUNCH COUNTER MANAGER) PT 11.6 9.7 - 13.0 sec INR 1.07 0.90 - 1.20 [facility] Comment: Interpretive data Oral anticoagulant therapeutic ranges: Venous thromboembolism prophylaxis or treatment: 2.0-3.0 CARDIOLOGY Standard range: 2.0-3.0 High-intensity range: 2.5-3.5 Refer to indication-specific guidelines for appropriate target ranges for prosthetic heart valve replacement. Current interpretive data was last revised on 2019. Blood 06/23/2024 12:0 2 PM LUNCH COUNTER MANAGER 06/23/2024 12:16 PM LUNCH COUNTER MANAGER Elan Hutchinson MD LAB BLOOD ORDERABLES Final Res ult Performing Organization Address [facility] de Phone Number [facility] [address] [facility] [place] [address] * Hemoglobin A1c (06/23/2024 12:02 PM LUNCH COUNTER MANAGER) Hgb A1C 5.0 4.0 - 5.6 % Estimated Average Glucose 97 mg/dL [facility] Comment: The ADA recommends reporting an estimated Average Glucose (eAG) with all Hemoglobin A1c results using the equation derived from a study of 507 normal and diabetic adults. ??Minority populations were underrepresented and children were not included. ?? (Diabetes Care 31:4606-2248, 2008). ??The eAG is not equivalent to a fasting glucose. Blood 06/23/2024 12:0 2 PM LUNCH COUNTER MANAGER 06/23/2024 12:16 PM LUNCH COUNTER MANAGER us Elan Hutchinson MD LAB BLOOD ORDERABLES Final Res ult [facility] [address] [facility]. [place] [address] * (ABNORMAL) Comprehensive metabolic panel (06/23/2024 12:02 PM LUNCH COUNTER MANAGER) Sodium 136 135 - 145 mmol/L Potassium, pl 5.2(H) 3.3 - 4.9 mmol/L [facility] Chloride 93(L) 97 - 110 mmol/L [facility] CO2 34(H) 22 - 32 mmol/L [facility] Anion gap 9 2 - 15 mmol/L [facility] BUN 23 6 - 25 mg/dL [facility] Creatinine 1.50(H) 0.80 - 1.30 mg/dL [facility] Glucose 117 70 - 199 mg/dL [facility] Comment: Interpretive Data Fasting glucose >/= 126 mg/dl is diagnostic for diabetes. ?? Fasting is defined as no caloric intake for at least 8 hours. Fasting glucose between 100 mg/dl to 125 mg/dl is diagnostic of prediabetes. In a patient with classic symptoms of hyperglycemia or hyperglycemic crisis, a random glucose >/= 200 mg/dl is diagnostic for diabetes. In the absence of unequivocal hyperglycemia, results should be confirmed by repeat testing. The classification and Diagnosis of Diabetes Diabetes Care 2021; 46: S19-S40. Current interpretive data was last revised 2022. Calcium 9.6 8.5 - 10.3 mg/dL [facility] Bilirubin, total 0.6 0.1 - 1.2 mg/dL [facility] Protein, pl 6.8 6.5 - 8.5 g/dL [facility] Albumin 3.7 3.5 - 5.0 g/dL [facility] Alk phos 197(H) 40 - 130 Units/L [facility] ALT 11 7 - 55 Units/L [facility] AST 40 10 - 50 Units/L [facility] Blood 06/23/2024 12:0 2 PM LUNCH COUNTER MANAGER 06/23/2024 12:16 PM LUNCH COUNTER MANAGER Elan Hutchinson MD LAB BLOOD ORDERABLES Final Res ult [facility] [id number] [facility]. Department [place] [address] * SCAN - RADIOLOGY/IMAGING (06/10/2024) Anatomical Region Laterality Modality Other Matt Mathews MD Final Res ult * [facility] (05/20/2024 12:45 PM LUNCH COUNTER MANAGER) Anatomical Region Laterality Modality Other Enrique Felix MD GI PROCEDURE ORDERABLES F inal Result * SCAN - RADIOLOGY/IMAGING (05/20/2024) Anatomical Region Laterality Modality Other Matt Mathews MD Final Res ult * SCAN - RADIOLOGY/IMAGING (05/19/2024) Anatomical Region Laterality Modality Other Matt Mathews MD Final Res ult * SCAN - RADIOLOGY/IMAGING (05/18/2024) Anatomical Region Laterality Modality Other Provider Scanning Final Result * SCAN - RADIOLOGY/IMAGING (05/17/2024) Anatomical Region Laterality Modality Other Matt Mathews MD Final Res ult * SCAN - RADIOLOGY/IMAGING (05/03/2024) Anatomical Region Laterality Modality Other Matt Mathews MD Final Res ult * SCAN - RADIOLOGY/IMAGING (04/27/2024) Anatomical Region Laterality Modality Other Provider Scanning Final Result * SCAN - RADIOLOGY/IMAGING (04/19/2024) Anatomical Region Laterality Modality Other Provider Scanning Final Result * SCAN - RADIOLOGY/IMAGING (04/14/2024) Anatomical Region Laterality Modality Other Matt Mathews MD Final Res ult * SCAN - LABS (04/11/2024) Provider Scanning Final Result * SCAN - LABS (04/08/2024) Provider Scanning Final Result * Albumin Creatinine Ratio, Urine (08/15/2022) Urine Matt Mathews MD LAB URINE ORDERABLES Amanda l Result * POCT lipid panel (07/28/2022 9:31 AM LUNCH COUNTER MANAGER) Cholesterol, POC 231 mg/dL HDL, POC 42 mg/dL Triglycerides, POC 112 mg/dL LDL Cholesterol POC 168 mg/dL Chol/HDL Ratio, POC 4.0 Non-HDL Cholesterol, POC 190 mg/dL Cholesterol Total, POC 231 mg/dL Capillary blood 07/28/2022 9 :31 AM LUNCH COUNTER MANAGER Anais Chowdary MD POINT OF CARE TEST O RDERABLES Edited Result - Final * HM COLONOSCOPY (03/12/2022) Enrique Felix MD HEALTH MAINTENANCE Final Result * PSA screen (10/19/2020 10:46 AM CDT) PSA 0.2 < OR = 4.0 ng/mL [facility] Comment: The total PSA value from this assay system is standardized against the WHO standard. The test result will be approximately 20% lower when compared to the equimolar-standardized total PSA (Jass Isauro). Comparison of serial PSA results should be interpreted with this fact in mind. This test was performed using the Siemens chemiluminescent method. Values obtained from different assay methods cannot be used interchangeably. PSA levels, regardless of value, should not be interpreted as absolute evidence of the presence or absence of disease. Blood specimen (specimen) 10/19/2020 10:46 AM CDT 10/19/2020 10:47 AM CDT Narrative [facility] - 10/23/2020 1:27 PM CDT FASTING:YES FASTING: YES Opal [facility] LAB BLOOD ORDERABLES Final Result [facility] [id number] [facility] [place] [phone] from Last 3 Months or Most Recently Relevant to Health Maintenance Insurance [facility] MEDICARE [employer] [facility] [place] [id number] Care Teams Editor & Co Founder Relationship Specialty Start Date End Date Matt Mathews MD [address] [place] [address] PCP - General Family Medicine 03/31/22 Dwight Nascimento MD Consulting Physician Internal Medicine 09/20/21
--- OUTSIDE RECORDS SUMMARY | 2024-07-07 15:16 | XMS_ITS | Patient Health Summary ---
Author Organization [facility] Address [address] [place] [address] Care Team Providers Care Orthopedic Cast Specialist Name Role Phone Fidel Camejo MD Primary Care Provider [phone] Note from [facility] [place] [facility] [place]non-owned Affiliates and Associated Physician Practices is amultiple site organization consisting of ambulatory clinics and hospital sitesin [place], [place], [place] and [place]. This disclosure is being madepursuant to the Care Everywhere program and may not contain all information available regarding this patient. Last updated 18.[facility] Allergies No known active allergies Medications * Be aware that medications may not be up to date on this document. Alwaysverify current medications with the patient. * ibuprofen (MOTRIN) 800 MG tablet(Started 01/03/2018) Take 1 tablet by mouth every 6 hours as needed for Pain * Acetaminophen (TYLENOL PO) Take 500 mg by mouth 4 times daily * ciprofloxacin (CIPRO) 500 MG tablet(Started 02/23/2020) TK 1 T PO Q 12 H * omeprazole (PRILOSEC) 10 MG capsule(Started 12/26/2019) TK 1 C PO QD PRN * ondansetron, disintegrating, (ZOFRAN ODT) 4 MG tablet(Started 01/19/2020) DIS 1 T ON THE TONGUE Q 6 H PRF NAUSEA OR VOM * lidocaine (LIDODERM) 5 % patch(Started 07/12/2020) Apply 1 (one) patch to skin 2 times daily as needed 2 refills by 07/12/2021 * furosemide (LASIX) 40 MG tablet(Started 07/12/2020) Take 1 (one) tablet by mouth once daily 2 refills by 07/12/2021 * spironolactone (ALDACTONE) 50 MG tablet(Started 07/12/2020) Take 1 (one) tablet by mouth once daily 2 refills by 07/12/2021 * HYDROcodone-acetaminophen (NORCO) 5-325 MG tablet(Started 10/30/2020) * pantoprazole EC (PROTONIX) 40 MG tablet(Started 08/18/2020) Take 40 mg by mouth every 12 hours * nadolol (CORGARD) 20 MG tablet Take 20 mg by mouth once daily * amoxicillin (AMOXIL) 500 MG capsule Take 500 mg by mouth every 8 hours 1-2 days left 12/11/20 Active Problems Problem Noted Date Diagnosed Date [...] cm (5' 5 ) 07/12/2020 10:23 AM HANDLE BAR ASSEMBLER Body Mass Index 29.79 07/12/2020 10:23 AM HANDLE BAR ASSEMBLER Procedures * PT-INR [facility](Performed 07/12/2020) Performed for Chronic diarrhea * CBC W AUTO DIFFERENTIAL(Performed 07/12/2020) Performed for Abdominal pain, unspecified abdominal location, Chronic diarrhea * COMPREHENSIVE METABOLIC PANEL(Performed 07/12/2020) Performed for Abdominal pain, unspecified abdominal location, Chronic diarrhea * TSH(Performed 07/12/2020) Performed for Abdominal pain, unspecified abdominal location, Chronic diarrhea * CELIAC DISEASE PROFILE W RFLX(Performed 07/12/2020) Performed for Abdominal pain, unspecified abdominal location, Chronic diarrhea * MRI ABDOMEN W MRCP WWO CONT W3D(Performed 06/02/2020) Performed for RUQ pain, Abnormal finding on imaging of liver * CREATININE - POCT INTERFACED(Performed 06/02/2020) * PARACENTESIS ABDOMEN (PERCUTANEOUS)(Performed 05/16/2020) Performed for Other ascites * SMOOTH MUSCLE ANTIBODY W REFLEX TITER(Performed 04/04/2020) Performed for Abdominal pain, RUQ (right upper quadrant), Abnormal finding on imaging of liver * PT-INR [facility](Performed 04/04/2020) Performed for RUQ pain, Abnormal finding on imaging of liver * COMPREHENSIVE METABOLIC PANEL(Performed 04/04/2020) Performed for RUQ pain, Abnormal finding on imaging of liver * CBC W/O DIFFERENTIAL(Performed 04/04/2020) Performed for RUQ pain, Abnormal finding on imaging of liver * ALPHA FETOPROTEIN BLOOD TUMOR MARKER(Performed 04/04/2020) Performed for RUQ pain, Abnormal finding on imaging of liver * FERRITIN(Performed 04/04/2020) Performed for RUQ pain, Abnormal finding on imaging of liver * TRANSFERRIN(Performed 04/04/2020) Performed for RUQ pain, Abnormal finding on imaging of liver * PHOSPHATIDYLETHANOL (PETH)(Performed 04/04/2020) Performed for RUQ pain, Abnormal finding on imaging of liver * MITOCHONDRIAL ANTIBODY SCREEN(Performed 04/04/2020) Performed for RUQ pain, Abnormal finding on imaging of liver * IRON BLOOD(Performed 04/04/2020) Performed for RUQ pain, Abnormal finding on imaging of liver * HEPATITIS C ANTIBODY(Performed 04/04/2020) Performed for RUQ pain, Abnormal finding on imaging of liver * HEPATITIS B SURFACE ANTIGEN W RFLX CONFIRMATION(Performed 04/04/2020) Performed for RUQ pain, Abnormal finding on imaging of liver * HEPATITIS B SURFACE ANTIBODY(Performed 04/04/2020) Performed for RUQ pain, Abnormal finding on imaging of liver * HEPATITIS B CORE ANTIBODY TOTAL(Performed 04/04/2020) Performed for RUQ pain, Abnormal finding on imaging of liver * HEPATITIS A ANTIBODY(Performed 04/04/2020) Performed for RUQ pain, Abnormal finding on imaging of liver * HEMOCHROMATOSIS MUTATION PANEL(Performed 04/04/2020) Performed for RUQ pain, Abnormal finding on imaging of liver * CERULOPLASMIN(Performed 04/04/2020) Performed for RUQ pain, Abnormal finding on imaging of liver * MEL BLOOD SCREEN W/REFLEX TITER(Performed 04/04/2020) Performed for RUQ pain, Abnormal finding on imaging of liver * DBLLB-6-[id number] BLOOD PHENOTYPING PANEL(Performed 04/04/2020) Performed for RUQ pain, Abnormal finding on imaging of liver * CT ABDOMEN PELVIS WO CONTRAST(Performed 11/17/2018) Performed for Abdominal pain, LLQ (left lower quadrant) * GLUCOSE - POINT OF CARE(Performed 11/17/2018) * US SCROTUM W DOPPLER(Performed 11/17/2018) Performed for Left inguinal pain * GLUCOSE - POINT OF CARE(Performed 11/17/2018) * MRI LUMBAR SPINE WO CONTRAST(Performed 11/16/2018) Performed for Paresthesia of left leg * VAS BILATERAL VENOUS DUPLEX LE(Performed 11/16/2018) Performed for Paresthesia of left leg * MAGNESIUM BLOOD(Performed 11/16/2018) Performed for Paresthesia of left leg * HEMOGLOBIN A1C(Performed 11/16/2018) Performed for Paresthesia of left leg * BASIC METABOLIC PANEL (CALCIUM TOTAL)(Performed 11/16/2018) * CBC W AUTO DIFFERENTIAL(Performed 11/16/2018) * CT ABDOMEN PELVIS W CONTRAST(Performed 11/16/2018) Performed for Left inguinal pain * URINALYSIS REFLEX MICROSCOPIC REFLEX CULTURE(Performed 11/15/2018) * ERYTHROCYTE SEDIMENTATION RATE(Performed 11/15/2018) * CBC W AUTO DIFFERENTIAL(Performed 11/15/2018) * C-REACTIVE PROTEIN SENSITIVE(Performed 11/15/2018) * COMPREHENSIVE METABOLIC PANEL(Performed 11/15/2018) * XR SHOULDER LEFT 2VW OR MORE(Performed 07/10/2018) Performed for Acute pain of left shoulder * CT RENAL STONE(Performed 12/17/2017) Performed for Testicular pain * US SCROTUM W DOPPLER(Performed 12/17/2017) Performed for Testicular pain * URINALYSIS REFLEX MICROSCOPIC REFLEX CULTURE(Performed 12/17/2017) * CHLAMYDIA + GC AMPLIFIED PROBE(Performed 12/17/2017) * EKG 12-LEAD(Performed 11/26/2012) * EKG 12-LEAD(Performed 11/26/2012) * GLUCOSE ACCUCHECK(Performed 11/10/2012) * GLUCOSE ACCUCHECK(Performed 11/10/2012) * BASIC METABOLIC PANEL (CALCIUM TOTAL)(Performed 11/10/2012) * CBC W AUTO DIFFERENTIAL(Performed 11/10/2012) * GLUCOSE ACCUCHECK(Performed 11/09/2012) * TROPONIN I(Performed 11/09/2012) * CK + CKMB PANEL(Performed 11/09/2012) * MRI BRAIN WO CONTRAST(Performed 11/09/2012) * GLUCOSE ACCUCHECK(Performed 11/09/2012) * CT ANGIO BRAIN AND NECK(Performed 11/09/2012) * TROPONIN I(Performed 11/09/2012) * CK + CKMB PANEL(Performed 11/09/2012) * GLUCOSE ACCUCHECK(Performed 11/09/2012) * LIPID PROFILE(Performed 11/09/2012) * HEMOGLOBIN A1C(Performed 11/09/2012) * PHOSPHORUS BLOOD(Performed 11/09/2012) * MAGNESIUM BLOOD(Performed 11/09/2012) * CK + CKMB PANEL(Performed 11/09/2012) * BASIC METABOLIC PANEL (CALCIUM TOTAL)(Performed 11/09/2012) * HEPATIC FUNCTION PANEL(Performed 11/09/2012) * CBC W AUTO DIFFERENTIAL(Performed 11/09/2012) * TROPONIN I(Performed 11/09/2012) * URINALYSIS W/MICROSCOPIC NO CULTURE(Performed 11/09/2012) * DRUG ABUSE PANEL 10-20+ETHANOL URINE NO CONFIRM(Performed 11/09/2012) * PT-INR [facility](Performed 11/09/2012) * PTT [facility](Performed 11/09/2012) * XR CHEST 1VW PORTABLE(Performed 11/08/2012) * ECHO COMPLETE(Performed 11/08/2012) Results * PT-INR [facility] (07/12/2020 12:54 PM HANDLE BAR ASSEMBLER) Only the most recent of3 resultswithin the time period is included. PT 13.5 12.1 - 14.8 Seconds 07/12/2020 1:34 PM [facility] INR 1.1 See Comment 07/12/2020 1:34 PM [facility] Comment:The suggested therap eutic range for standard coumadin (warfarin) therapy is an INR of 2.0-3.0. For high-risk patients (Mechanical Mitral Valve Prosthesis, etc.), the suggested prophylactic therapeutic range is an INR of 2.5-3.5. Blood BLOOD SPECIMEN / Unknown Lab Venipuncture / Unknown 07/12/2020 12:54 PM HANDLE BAR ASSEMBLER 07/12/2020 1:24 PM HANDLE BAR ASSEMBLER Billie Medrano MD LAB - COAGULATION OR DERABLES Performing Organization Address [facility] Co de Phone Number [facility] [address] [place] [phone], [facility] [phone] * CELIAC DISEASE PROFILE W RFLX (07/12/2020 12:54 PM HANDLE BAR ASSEMBLER) [facility] Endomysial Antibody IgA Negative Negative 07/13/2020 6:07 PM HANDLE BAR ASSEMBLER [facility] ([facility]) TTG Antibody IgA <2 0 - 3 U/mL 07/13/19 6:07 PM [facility] ([facility]) Comment: ?Negative ?0 - ??3 ?Weak Positive ?? 4 - 10 ?Positive ? >10 Tissue Transglutaminase (tTG) has been identified as the endomysial antigen. ??Studies have demonstr- ated that endomysial IgA antibodies have over 99% specificity for gluten sensitive enteropathy. IgA Quantitative 371 90 - 386 mg/dL 07/13/2020 6:07 PM HANDLE BAR ASSEMBLER [facility] ([facility]) Blood BLOOD SPECIMEN / Unknown Lab Venipuncture / Unknown 07/12/2020 12:54 PM HANDLE BAR ASSEMBLER 07/12/2020 1:39 PM HANDLE BAR ASSEMBLER Narrative [facility] ([facility]) - 07/13/2020 6:07 PM HANDLE BAR ASSEMBLER Performed at: ??01 - [facility] [address] [facility], [place], [place] [id number] Mattress Weaver: Lucho Tyler PhD, Phone: ??[phone] Billie Medrano MD LAB - CHEMISTRY [facility] [address] [place] [address], [facility] * (ABNORMAL) CBC WITH DIFFERENTIAL (07/12/2020 12:54 PM HANDLE BAR ASSEMBLER) Only the most recent of5 resultswithin the time period is included. WBC 4.1 3.5 - 10.5 10? 3 /uL 07/12/2020 1:35 PM [facility] RBC 5.06 4.30 - 5.70 10? 6 /uL 07/12/2020 1:35 PM [facility] Hemoglobin 15.8 13.5 - 17.5 g/dL 07/12/2020 1:35 PM [facility] Hematocrit 48.1 39.0 - 50.0 % 07/12/2020 1:35 PM [facility] MCV 95.1 81.0 - 97.0 fL 07/12/2020 1:35 PM [facility] MCH 31.2 28.0 - 34.0 pg 07/12/2020 1:35 PM [facility] MCHC 32.8 32.0 - 36.0 g/dL 07/12/2020 1:35 PM [facility] Platelet Count 105(L) 150 - 400 10? 3 /uL 07/12/2020 1:35 PM [facility] RDW-SD 46.6 36.0 - 50.0 fL 07/12/2020 1:35 PM [facility] RDW-CV 13.2 11.2 - 14.8 % 07/12/2020 1:35 PM [facility] MPV 10.3 9.3 - 12.8 fL 07/12/2020 1:35 PM [facility] nRBC Absolute 0.00 0 10? 3 /uL 07/12/2020 1:35 PM [facility] nRBC Auto 0.0 0 /100 WBC 07/12/2020 1:35 PM [facility] Neutrophils % 63.0 35.0 - 70.0 % 07/12/2020 1:35 PM [facility] Lymphocytes % 25.4 19.7 - 55.1 % 07/12/2020 1:35 PM [facility] Monocytes % 9.6 3.0 - 15.0 % 07/12/2020 1:35 PM [facility] Eosinophils % 1.0 0.0 - 6.0 % 07/12/2020 1:35 PM [facility] Basophil % 0.5 0.0 - 1.5 % 07/12/2020 1:35 PM [facility] Neutrophils Absolute 2.6 1.6 - 7.0 10? 3 /uL 07/12/2020 1:35 PM [facility] Lymphocyte Absolute 1.0 0.8 - 2.9 10? 3 /uL 07/12/2020 1:35 PM [facility] Monocytes Absolute 0.39 0.14 - 0.66 10? 3 /uL 07/12/2020 1:35 PM [facility] Eosinophils Absolute 0.04 0.00 - 0.45 10? 3 /uL 07/12/2020 1:35 PM [facility] Basophils Absolute 0.02 0.00 - 0.06 10? 3 /uL 07/12/2020 1:35 PM [facility] Immature Granulocytes % 0.5 0.0 - 1.0 % 07/12/2020 1:35 PM [facility] Blood BLOOD SPECIMEN / Unknown Lab Venipuncture / Unknown 07/12/2020 12:54 PM HANDLE BAR ASSEMBLER 07/12/2020 1:20 PM HANDLE BAR ASSEMBLER Billie Medrano MD LAB - HEMATOLOGY ORD ERABLES [facility] [address] [place] [address], [facility] [phone] * (ABNORMAL) COMPREHENSIVE METABOLIC PANEL (07/12/2020 12:54 PM HANDLE BAR ASSEMBLER) Only the most recent of3 resultswithin the time period is included. BUN 10 7 - 26 mg/dL 07/12/2020 2:12 PM [facility] Creatinine 0.6 0.6 - 1.2 mg/dL 07/12/2020 2:12 PM [facility] Sodium 138 136 - 145 mmol/L 07/12/2020 2:12 PM [facility] Potassium 4.2 3.5 - 4.5 mmol/L 07/12/2020 2:12 PM [facility] Chloride 103 98 - 107 mmol/L 07/12/2020 2:12 PM [facility] CO2 26 22 - 29 mmol/L 07/12/2020 2:12 PM [facility] Glucose 133(H) 70 - 115 mg/dL 07/12/2020 2:12 PM [facility] Calcium 9.1 8.4 - 10.2 mg/dL 07/12/2020 2:12 PM [facility] Protein Total 6.9 6.0 - 8.3 g/dL 07/12/2020 2:12 PM [facility] Albumin 3.8 3.4 - 5.0 g/dL 07/12/2020 2:12 PM [facility] Bilirubin Total 1.0 0.2 - 1.2 mg/dL 07/12/2020 2:12 PM [facility] Alkaline Phosphatase 178(H) 40 - 150 Units/L 07/12/2020 2:12 PM [facility] ALT 18 0 - 55 Units/L 07/12/2020 2:12 PM [facility] AST 46(H) 5 - 34 Units/L 07/12/2020 2:12 PM [facility] Anion Gap 13 8 - 18 07/12/2020 2:12 PM [facility] BUN/Creatinine Ratio 17 7 - 23 07/12/2020 2:12 PM [facility] Osmolality Calculated 287 270 - 300 mOsm/kg 07/12/2020 2:12 PM HANDLE BAR ASSEMBLER [facility] Albumin/Globulin Ratio 1.2 1.1 - 2.3 07/12/2020 2:12 PM HANDLE BAR ASSEMBLER [facility] eGFR >60 >60 mL/min/1.7 3 m2 07/12/2020 2:12 PM HANDLE BAR ASSEMBLER [facility] Blood BLOOD SPECIMEN / Unknown Lab Venipuncture / Unknown 07/12/2020 12:54 PM HANDLE BAR ASSEMBLER 07/12/2020 1:20 PM HANDLE BAR ASSEMBLER Billie Medrano MD LAB - CHEMISTRY CHERIE CABRALES Performing Organization Address City/[facility]/ZIP Co de Phone Number [facility] [address] [place] [phone], [place] [phone] * TSH (07/12/2020 12:54 PM HANDLE BAR ASSEMBLER) TSH 1.171 0.350 - 4.940 uIU/mL 07/12/2020 2:08 PM HANDLE BAR ASSEMBLER [facility] Blood BLOOD SPECIMEN / Unknown Lab Venipuncture / Unknown 07/12/2020 12:54 PM HANDLE BAR ASSEMBLER 07/12/2020 1:20 PM HANDLE BAR ASSEMBLER Billie Medrano MD LAB - CHEMISTRY CHERIE CABRALES Performing Organization Address City/[facility]/ZIP Co de Phone Number [facility] [address] [place] [phone], [place] [phone] * MRI ABDOMEN W MRCP WWO CONT W3D (06/02/2020 11:31 AM HANDLE BAR ASSEMBLER) Anatomical Region Laterality Modality Abdomen Magnetic Resonan ce 06/04/2020 7:14 AM HANDLE BAR ASSEMBLER Impressions 06/04/2020 10:34 AM HANDLE BAR ASSEMBLER IMPRESSION: 1.Cirrhosis and mild hepatic steatosis. 2. 1.8 cm arterially enhancing observation without washout in segment 5 (LR-3). Report drafted by Toby Alexander M.D. (resident) I, Dr. AV HOUSE M.D. have personally reviewed and interpreted this examination/study. This report was electronically signed by AV HOUSE M.D. ??on 06/04/2020 10:34 AM . Narrative 06/04/2020 10:34 AM HANDLE BAR ASSEMBLER EXAMINATION: 1. Magnetic resonance imaging (MRI) of the abdomen without and with contrast 2. Magnetic resonance cholangiopancreatography (MRCP) with 3-D reconstruction and analysis HISTORY: history of cirrhosis and vague RUQ pain cholecystectomy clip in left abdomen on prior CT TECHNIQUE: MRI of the abdomen was performed prior to and following the uneventful administration of 15 mL of Multihance intravenous gadolinium contrast according to standard protocol, including dynamic imaging for MRCP. Image data was analyzed on a dedicated 3-D workstation for the MRCP portion of the exam. COMPARISON: CT abdomen and pelvis on 04/17/2020 FINDINGS: MRI: The visible lung bases are clear. There is mild diffuse hepatic steatosis. Mild surface nodularity and hypertrophy of the caudate lobe is compatible with cirrhosis. No arterially-enhancing hepatic observations suspicious for hepatocellular carcinoma are identified. A 0.8 x 1.8 cm arterially enhancing observation without washout lies in segment 5 (series 14 image 41) (LR-3). The hepatic arterial anatomy is conventional. The portal vein and its major branches are patent. The hepatic veins are patent. The gallbladder is absent. The pancreas has normal signal intensity. There is no peripancreatic fluid collection. No pancreatic mass is identified. The spleen, adrenal glands, and kidneys are normal. Trace perihepatic fluid is seen. There is a chronic wedge compression deformity at T11. MRCP: The intrahepatic and extrahepatic bile ducts are nondilated. No filling defect or stricture is seen in the biliary system. The pancreatic duct is nondilated. Procedure Note Av House MD - 06/04/2020 EXAMINATION: 1. Magnetic resonance imaging (MRI) of the abdomen without and with contrast 2. Magnetic resonance cholangiopancreatography (MRCP) with 3-D reconstruction and analysis HISTORY: history of cirrhosis and vague RUQ pain cholecystectomy clip in left abdomen on prior CT TECHNIQUE: MRI of the abdomen was performed prior to and following the uneventful administration of 15 mL of Multihance intravenous gadolinium contrast according to standard protocol, including dynamic imaging for MRCP. Image data was analyzed on a dedicated 3-D workstation for theMRCP portion of the exam. COMPARISON: CT abdomen and pelvis on 04/17/2020 FINDINGS: MRI: The visible lung bases are clear. There is mild diffuse hepatic steatosis. Mild surface nodularity and hypertrophy of the caudate lobe is compatible with cirrhosis. No arterially-enhancing hepatic observations suspicious for hepatocellular carcinoma are identified. A 0.8 x 1.8 cm arterially enhancing observation without washout lies in segment 5 (series 14 image 41) (LR-3). The hepatic arterial anatomy is conventional. The portal vein and its major branches are patent. The hepatic veins are patent. The gallbladder is absent. The pancreas has normal signal intensity.There is no peripancreatic fluid collection. No pancreatic mass is identified. The spleen, adrenal glands, and kidneys are normal. Trace perihepatic fluid is seen. There is a chronic wedge compression deformity at T11. MRCP: The intrahepatic and extrahepatic bile ducts are nondilated. No filling defect or stricture is seen in the biliary system. The pancreatic duct is nondilated. IMPRESSION: 1.Cirrhosis and mild hepatic steatosis. 2. 1.8 cm arterially enhancing observation without washout in segment 5 (LR-3). Report drafted by Toby Alexander M.D. (resident) I, Dr. AV HOUSE M.D. have personally reviewed and interpreted this examination/study. This report was electronically signed by AV HOUSE M.D. on 06/04/2020 10:34 AM . Billie Medrano MD MR ORDERABLES * CREATININE - POCT INTERFACED (06/02/2020 10:43 AM HANDLE BAR ASSEMBLER) Creatinine POCT 0.85 0.30 - 1.30 mg/dL 06/02/2020 2:38 [address] BAR [address]ER [facility] eGFR >60 >60 mL/min/1.7 3 m2 06/02/2020 2:38 PM HANDLE BAR ASSEMBLER [facility] Blood BLOOD SPECIMEN / Unknown 06/02/2020 10:43 AM HANDLE BAR ASSEMBLER 06/02/2020 2:38 PM HANDLE BAR ASSEMBLER Billie Medrano MD LAB - POINT OF CARE ORDERABLES [facility] [address] [place] [address], [facility] [phone] * PHOSPHATIDYLETHANOL (PETH) (04/04/2020 1:28 PM CDT) [facility] PEth 16:0/18.1 (POPEth) 224 ng/mL 04/07/2020 10:54 AM CDT [facility] ([facility]) Comment: INTERPRETIVE INFORMATION:Phosphatidylethanol (PEth), Whole Blood Phosphatidylethanol (PEth) homologues Result Interpretation PEth 16:0/18:1 (POPEth) ? Less than 10 ng/mL............Not detected Less than 20 ng/mL............Abstinence or light alcohol ?consumption 20 - 200 ng/mL................Moderate alcohol consumption Greater than 200 ng/mL........Heavy alcohol consumption or ?chronic alcohol use PEth 16:0/18:2 (PLPEth).......Reference ranges are not well ?established. (Reference: Blanquita Bhatti and Divya Cunha 2018 J. Forensic Sci) Phosphatidylethanol (PEth) is a group of phospholipids formed in the presence of ethanol, phospholipase D and phosphatidylcholine. PEth is known to be a direct alcohol biomarker. The predominant PEth homologues are PEth 16:0/18:1 (POPEth) and PEth 16:0/18:2 (PLPEth), which account for 37-46% and 26-28% of the total PEth homologues, respectively. PEth is incorporated into the phospholipid membrane of red blood cells and has a general half-life of 4 - 10 days and a window of detection of 2-4 weeks. However, the window of detection is longer in individuals who chronically or excessively consume alcohol. The limit of quantification is 10 ng/mL. Serial monitoring of PEth may be helpful in monitoring alcohol abstinence over time. PEth results should be interpreted in the context of the patient's clinical and behavioral history. Patients with advanced liver disease may have falsely elevated PEth concentrations (Camila SHAH et al 2018, Alcoholism Clinical & Experimental Research). Test developed and characteristics determined by [facility]. See Compliance Statement B: [employer] PEth 16:0/18.2 (PLPEth) 203 ng/mL 04/07/2020 10:54 AM CDT [facility] ([facility]) Comment: Performed By: [facility] [address] [place] [address] Portfolio Manager: Jocelynn Salomon MD Blood BLOOD SPECIMEN / Unknown Lab Venipuncture / Unknown 04/04/2020 1:28 PM CDT 04/04/2020 1:59 PM CDT Billie Medrano MD LAB - CHEMISTRY CHERIE CABRALES [facility] ([facility]) [address] * SMOOTH MUSCLE ANTIBODY W REFLEX TITER (04/04/2020 1:28 PM CDT) F-Actin Antibody IgG 9 0 - 19 Units 04/06/2020 7:27 PM CDT [facility] ([facility]) Comment: If F-Actin (Smooth Muscle) Antibody, IgG is negative, the Smooth Muscle Antibody titer by IFA is not performed. REFERENCE INTERVAL: F-Actin (Smooth Muscle) Antibody, IgG by ?GAYLE ??19 Units or less ....... Negative ??20 - 30 Units .......... Weak Positive-Suggest repeat ? testing in two to three weeks ? with fresh specimen. ??31 Units or greater..... Positive-Suggestive of ? autoimmune hepatitis type 1 ? or chronic active hepatitis. F-actin IgG antibodies have been shown to have increased sensitivity for autoimmune hepatitis (AIH) but lower specificity than smooth muscle antibodies (SMA). F-actin IgG antibodies can also be seen in SMA-negative disease controls (non-AIH), especially in patients with primary biliary cirrhosis and chronic hepatitis C infections. Some patients with AIH may be SMA-positive but negative for F-actin IgG. Consider testing for SMA by IFA if suspicion for AIH is strong. Performed By: [facility] [address] [place] [address] Portfolio Manager: Jocelynn Salomon MD Blood BLOOD SPECIMEN / Unknown Lab Venipuncture / Unknown 04/04/2020 1:28 PM CDT 04/04/2020 2:36 PM CDT Billie Medrano MD LAB - SEROLOGY ORDER [facility]) [address] [place] [address] * MITOCHONDRIAL ANTIBODY SCREEN (04/04/2020 1:28 PM CDT) Mitochondrial M2 Antibody 6.7 0.0 - 24.9 Units 04/06/2020 7:28 PM CDT [facility] ([facility]) Comment: REFERENCE INTERVAL: Mitochondrial (M2) Antibody, IgG ?20.0 Units or less ......... Negative ??20.1 - 24.9 Units........... Equivocal ??25.0 Units or greater....... Positive Anti-mitochondrial antibodies (AMA) are thought to be present in 90-95% of patients with primary biliary cholangitis (PBC). However, the frequency of detected antibodies may be cohort or assay dependent, as lower sensitivities have been reported. Not all PBC patients are positive for AMA; some patients may be positive for SP100 and/or GP210 antibodies. A negative result does not rule out PBC. Performed By: [facility] [address] [place] [address] Portfolio Manager: Jocelynn Salomon MD Blood BLOOD SPECIMEN / Unknown Lab Venipuncture / Unknown 04/04/2020 1:28 PM CDT 04/04/2020 2:37 PM CDT Billie Medrano MD LAB - CHEMISTRY CHERIE CABRALES Performing Organization Address City/[facility]/ZIP Co de Phone Number [facility] [employer] [facility]) [address] * [id number] BLOOD PHENOTYPING PANEL (04/04/2020 1:28 PM CDT) Pathologist [facility] [place] [id number] n Phenotype M1M1 04/07/2020 1:43 PM CDT [facility] [employer] ([facility]) Comment: The patient appears to have a normal phenotype. All M alleles (including subtypes M1, M2, and M3) produce normal serum concentrations of ksonc-6-mrxumelo inhibitor and are not associated with clinical disease. Caution in interpretation is advised if the patient has been transfused within the previous 21 days. Performed By: [facility] [address] [place] [address] Portfolio Manager: Jocelynn Salomon MD Gqeah-9-Avwbtzjabr n 175 90 - 200 mg/dL 04/07/2020 1:43 PM CDT [facility] [employer] ([facility]) Comment:To convert to umol/L , multiply mg/dL by 0.185 Blood BLOOD SPECIMEN / Unknown Lab Venipuncture / Unknown 04/04/2020 1:28 PM CDT 04/04/2020 2:36 PM CDT Billie Medrano MD LAB - CHEMISTRY CHERIE CABRALES [facility] [employer] ([facility]) [address] * HEMOCHROMATOSIS MUTATION PANEL (04/04/2020 1:28 PM CDT) HFE C282Y Mutation Negative 2019 3:56 PM CDT [facility] [employer] ([facility]) HFE Specimen Source Whole Blood 04/09/2020 3:56 PM CDT [facility] ([facility]) HFE H63D Mutation Negative 10/26/2 020 3:56 PM CDT [facility] ([facility]) HFE S65C Mutation Negative 3:56 PM CDT [facility] [facility] ([facility]) Interpretation HFE Mutation See Note 04/09/2020 3:56 PM CDT [employer] [facility] ([facility]) Comment: Indication for testing: Carrier screening or diagnostic testing for hereditary hemochromatosis. Hemochromatosis Interpretive Results: Negative WT: C282Y: Negative - The patient is negative for the HFE C282Y mutation. H63D: Negative - The patient is negative for the HFE H63D mutation. S65C: Negative - The patient is negative for the HFE S65C mutation. Mutations in unidentified genes or other mutations in the HFE gene are not ruled out. This result has been reviewed and approved by Antione Oneill, Ph.D. BACKGROUND INFORMATION: Hemochromatosis (HFE) 3 Mutations CHARACTERISTICS: Disorder of iron metabolism resulting in excessive iron storage leading to increased skin pigmentation, arthritis, hypogonadism, diabetes mellitus, heart arrhythmias/failure, cirrhosis and liver carcinoma. INCIDENCE: One in 300 individuals of [place] descent; unknown in other ethnicities. INHERITANCE: Autosomal recessive. PENETRANCE: 5 percent of C282Y homozygotes, 1 percent of C282Y/H63D compound heterozygotes and rare H63D homozygotes develop clinical symptoms. CAUSE: Two pathogenic HFE gene mutations on opposite chromosomes. MUTATIONS TESTED: p.C282Y (c.845G>A), p.H63D (c.187C>G), and p.S65C (c.193A>T). CLINICAL SENSITIVITY: 85 percent of hereditary hemochromatosis in Northern Europeans is caused by C282Y homozygosity and 5 percent by C282Y/H63D compound heterozygosity. METHODOLOGY: PCR and fluorescence monitoring. ANALYTICAL SENSITIVTY AND SPECIFICITY: 99 percent. LIMITATIONS: HFE mutations, other than those targeted, will not be detected. Diagnostic errors can occur due to rare sequence variations. Test developed and characteristics determined by [facility]. See Compliance Statement C: [employer]/ Performed by [facility], [address] [place] [id number] [email or web address], Jocelynn Salomon MD, Lab. Director Blood BLOOD SPECIMEN / Unknown Lab Venipuncture / Unknown 04/04/2020 1:28 PM CDT 04/04/2020 1:59 PM CDT Billie Medrano MD LAB - CHEMISTRY CHERIE CABRALES Performing Organization Address City/[facility]/ZIP Co de Phone Number [facility] [employer] [facility]) [address] * MEL BLOOD SCREEN W/REFLEX TITER (04/04/2020 1:28 PM CDT) MEL IgG None Detected None Detected 04/06/2020 5:16 PM CDT [facility] ([facility]) Comment: If suspicion of connective tissue disease is strong and MEL EIA is negative, consider testing for MEL by IFA ([id number]). INTERPRETIVE INFORMATION: Anti-Nuclear Antibodies (MEL), IgG by GAYLE Antinuclear Antibodies (MEL), IgG by GAYLE: MEL specimens are screened using enzyme-linked immunosorbent assay (GAYLE) methodology. All GAYLE results reported as Detected are further tested by indirect fluorescent assay (IFA) using HEp-2 substrate with an IgG-specific conjugate. The MEL GAYLE screen is designed to detect antibodies against dsDNA, histones, SS-A (Ro), SS-B (La), Cunha, Cunha/CONVEYOR [employer]T INSTALLER, Scl-70, Shellie-1, centromeric proteins, other antigens extracted from the HEp-2 cell nucleus. MEL GAYLE assays have been reported to have lower sensitivities than MEL IFA for systemic autoimmune rheumatic diseases (SARD). Negative results do not necessarily rule out SARD. Performed By: [facility] [address] [place] [address] Portfolio Manager: Jocelynn Salomon MD Blood BLOOD SPECIMEN / Unknown Lab Venipuncture / Unknown 04/04/2020 1:28 PM CDT 04/04/2020 2:36 PM CDT Billie Medrano MD LAB - CHEMISTRY CHERIE CABRALES [facility] [employer] ([facility]) [address] * TRANSFERRIN (04/04/2020 1:28 PM CDT) Pathologist [facility] [place] Transferrin 176 174 - 382 mg/dL 04/04/2020 3:[address] [facility] Transferrin Saturation % 40 16 - 50 % 04/04/2020 3:05 PM CDT [facility] Blood BLOOD SPECIMEN / Unknown Lab Venipuncture / Unknown 04/04/2020 1:28 PM CDT 04/04/2020 2:36 PM CDT Billie Medrano MD LAB - CHEMISTRY CHERIE CABRALES [address] [address], [place] [phone] * CERULOPLASMIN (04/04/2020 1:28 PM CDT) Ceruloplasmin 32 20 - 60 mg/dL 04/04/2020 3:06 PM CDT [facility] Blood BLOOD SPECIMEN / Unknown Lab Venipuncture / Unknown 04/04/2020 1:28 PM CDT 04/04/2020 2:36 PM CDT Billie Medrano MD LAB - CHEMISTRY CHERIE CABRALES Performing Organization Address [facility]/ZIP Co de Phone Number [address] [address], [place] [phone] * ALPHA FETOPROTEIN BLOOD TUMOR MARKER (04/04/2020 1:28 PM CDT) Pathologist [facility] [place] Alpha-Fetoprote in Tumor Marker 4.6 <=8.3 ng/mL 04/04/2020 2:42 PM CDT [facility] Comment: AFP values will vary depending on testing procedure used. Results are not comparable across different methods. AFP values obtained by [facility] using an Castaneda Alinity Immunoassay. Blood BLOOD SPECIMEN / Unknown Lab Venipuncture / Unknown 04/04/2020 1:28 PM CDT 04/04/2020 1:59 PM CDT Billie Medrano MD LAB - CHEMISTRY CHERIE CABRALES Performing Organization Address City/[facility]/ZIP Co de Phone Number [address] [address], [place] [phone] * (ABNORMAL) CBC W/O DIFFERENTIAL (04/04/2020 1:28 PM CDT) WBC 5.5 3.5 - 10.5 10? 3 /uL 04/04/2020 2:19 PM CDT [facility] RBC 3.98(L) 4.30 - 5.70 10? 6 /uL 04/04/2020 2:19 PM T [facility] Hemoglobin 13.4(L) 13.5 - 17.5 g/dL 04/04/2020 2:19 PM T [facility] Hematocrit 40.2 39.0 - 50.0 % 04/04/2020 2:19 PM T [facility] MCV 101.0(H) 81.0 - 97.0 fL 04/04/2020 2:19 PM T [facility] MCH 33.7 28.0 - 34.0 pg 04/04/2020 2:19 PM T [facility] MCHC 33.3 32.0 - 36.0 g/dL 04/04/2020 2:19 PM T [facility] Platelet Count 124(L) 150 - 400 10? 3 /uL 04/04/2020 2:19 PM T [facility] RDW-SD 50.4(H) 36.0 - 50.0 fL 04/04/2020 2:19 PM T [facility] RDW-CV 13.4 11.2 - 14.8 % 04/04/2020 2:19 PM [facility] MPV 10.5 9.3 - 12.8 fL 04/04/2020 2:19 PM T [facility] nRBC Absolute 0.00 0 10? 3 /uL 04/04/2020 2:19 PM T [facility] nRBC Auto 0.0 0 /100 WBC 04/04/2020 2:19 PM T [facility] Blood BLOOD SPECIMEN / Unknown Lab Venipuncture / Unknown 04/04/2020 1:28 PM CDT 04/04/2020 1:59 PM CDT Billie Medrano MD LAB - HEMATOLOGY ORD ERABLES [facility] [address] [place] [address], [facility] [phone] * IRON BLOOD (04/04/2020 1:28 PM CDT) [facility] Iron 89 50 - 175 mcg/dL 04/04/2020 3:05 PM CDT [facility] Blood BLOOD SPECIMEN / Unknown Lab Venipuncture / Unknown 04/04/2020 1:28 PM CDT 04/04/2020 2:36 PM CDT Billie Medrano MD LAB - CHEMISTRY CHERIE CABRALES Performing Organization Address [facility] Co de Phone Number [facility] [address] [place] [address], [facility] [phone] * HEPATITIS B SURFACE ANTIBODY (04/04/2020 1:28 PM CDT) [facility] Hepatitis B Virus Surface Antibody Non-react cathi Non-react cathi 04/04/2020 3:23 PM CDT [facility] Comment: < 8 mIU/mL Hepatitis B surface Antibody (HBsAb). Nonreactive for HBsAb - individual is considered not immune to Hepatitis B Virus infection. Hepatitis B Surface Antibody Quantitative 4.7 <8.0 mIU/mL 04/04/2020 3:23 PM CDT [facility] Comment: Hepatitis B Surface Antibody Numeric Result Interpretation: ? Nonreactive: ?<8.0 mIU/mL ? Indeterminate: ??8.0 - 12.0 mIU/mL ? Reactive: ?>12.0 mIU/mL ? Blood BLOOD SPECIMEN / Unknown Lab Venipuncture / Unknown 04/04/2020 1:28 PM CDT 04/04/2020 2:36 PM CDT Billie Medrano MD LAB - CHEMISTRY CHERIE CABRALES Performing Organization Address [facility]/ZIP Co de Phone Number [facility] [address] [place] [address], [facility] [phone] * HEPATITIS B CORE ANTIBODY (04/04/2020 1:28 PM CDT) HBc Antibody Total Non-reacti ve Non-reacti ve 04/04/2020 3:27 PM CDT [facility] Blood BLOOD SPECIMEN / Unknown Lab Venipuncture / Unknown 04/04/2020 1:28 PM CDT 04/04/2020 2:36 PM CDT Billie Medrano MD LAB - CHEMISTRY CHERIE CABRALES Performing Organization Address City/[facility]/ZIP Co de Phone Number [address] [address], [facility] [phone] * HEPATITIS B SURFACE ANTIGEN W RFLX CONFIRMATION (04/04/2020 1:28 PM CDT) Hepatitis B Virus Surface Antigen Non-reacti ve Non-reacti ve 04/04/2020 3:27 PM CDT [facility] Blood BLOOD SPECIMEN / Unknown Lab Venipuncture / Unknown 04/04/2020 1:28 PM CDT 04/04/2020 2:36 PM CDT Billie Medrano MD LAB - CHEMISTRY CHERIE CABRALES Performing Organization Address City/[facility]/ZIP Co de Phone Number [address] [address], [place] [phone] * HEPATITIS C ANTIBODY (04/04/2020 1:28 PM CDT) Hepatitis C Antibody Non-react cathi Non-reac tive 04/04/2020 3:27 PM CDT [facility] Comment:Hepatitis C Antibody screen indicates no [...] Medrano MD LAB - CHEMISTRY CHERIE CABRALES [facility] [address] [place] [address], [place] [phone] * (ABNORMAL) HEPATITIS A ANTIBODY (04/04/2020 1:28 PM CDT) Hepatitis A Virus Antibody Total Positive( A) Negative 04/06/2020 8:44 AM CDT [employer] ([facility]) Comment: The positive anti-HAV is consistent with recent or remote Hepatitis A infection or antibody response to HAV vaccination. False positive anti-HAV can occur. Performed by [facility], [address] [place] [address] [email or web address], Jocelynn Salomon MD, Lab. Director Blood BLOOD SPECIMEN / Unknown Lab Venipuncture / Unknown 04/04/2020 1:28 PM CDT 04/04/2020 2:36 PM CDT Billie Medrano MD LAB - CHEMISTRY CHERIE CABRALES Performing Organization Address City/[facility]/ZIP Co de Phone Number [facility]) [address] * (ABNORMAL) FERRITIN (04/04/2020 1:28 PM CDT) Pathologist [facility] [place] Ferritin 2,699(H) 22 - 275 ng/mL 04/04/2020 4:[address] [facility] Comment:Result obtained by [employer]. Blood BLOOD SPECIMEN / Unknown Lab Venipuncture / Unknown 04/04/2020 1:28 PM CDT 04/04/2020 2:36 PM CDT Billie Medrano MD LAB - CHEMISTRY CHERIE CABRALES [facility] [address] [place] [address], [place] [phone] * CT ABDOMEN PELVIS WO CONTRAST (11/17/2018 3:58 PM CDT) Anatomical Region Laterality Modality Abdomen, Pelvis Computed Tomogra phy 11/17/2018 3:59 PM CDT Impressions 11/17/2018 4:07 PM CDT 1. No acute intra-abdominal pathology to explain the patient's left lower quadrant symptoms. 2. Postop cholecystectomy with a dropped clip in the left lower quadrant of no concern. 3. No kidney stone or obstructive uropathy Reading Radiologist: Ramesh Fuentes MD on 11/17/2018 at 4:07 PM Narrative 11/17/2018 4:[address] abdomen and pelvis without contrast. COMPARISON: Postcontrast study one day earlier. HISTORY: Left lower quadrant abdominal and groin pain with recent diagnosis of prostate carcinoma. The lower lung khan are clear. The noncontrast liver spleen pancreas adrenals and kidneys are normal. There is no renal or ureteral calculus or obstructive uropathy. The patient is status post prior cholecystectomy without biliary dilatation. The aorta is normal in caliber. The urinary bladder and prostate appear morphologically normal. Oral contrast is seen predominantly through the colon to the rectum with only a small amount of residual distal small bowel opacification. There is no mass obstruction or inflammatory change. There is no abdominal or inguinal hernia. Presumed appendectomy Procedure Note Ramesh Fuentes MD - 11/17/2018 CT abdomen and pelvis without contrast. COMPARISON: Postcontrast study one day earlier. HISTORY: Left lower quadrant abdominal and groin pain with recent diagnosis of prostate carcinoma. The lower lung khan are clear. The noncontrast liver spleen pancreas adrenals and kidneys are normal. There is no renal or ureteral calculus or obstructive uropathy. The patient is status post prior cholecystectomy without biliary dilatation. The aorta is normal in caliber. The urinary bladder and prostate appear morphologically normal. Oral contrast is seen predominantly through the colon to the rectum with only a small amount of residual distal small bowel opacification. There is no mass obstruction or inflammatory change. There is no abdominal or inguinal hernia. Presumed appendectomy IMPRESSION 1. No acute intra-abdominal pathology to explain the patient's left lower quadrant symptoms. 2. Postop cholecystectomy with a dropped clip in the left lower quadrant of no concern. 3. No kidney stone or obstructive uropathy Reading Radiologist: Ramesh Fuentes MD on 11/17/2018 at 4:07 PM Margarita Loeps RN [facility] CT ORDERABLES * (ABNORMAL) GLUCOSE - POINT OF CARE (11/17/2018 12:18 PM CDT) Only the most recent of2 resultswithin the time period is included. Glucose WB/POC 121(H) 70 - 106 mg/dL 11/17/2018 4:17 PM CDT [facility] Specimen Type Arterial/C apillary 11/17/2018 4:17 PM CDT [facility] Blood BLOOD SPECIMEN / Unknown 11/17/2018 12:18 PM CDT 11/17/2018 4:17 PM CDT Vic Valenzuela MD LAB - POINT OF CARE ORDERABLES [facility] [address] [place] [address] * US SCROTUM W DOPPLER (11/17/2018 10:52 AM CDT) Only the most recent of2 resultswithin the time period is included. Anatomical Region Laterality Modality Pelvis Ultrasound 11/17/2018 11:0 0 AM CDT Impressions 11/17/2018 11:02 AM CDT No sonographic evidence of active testicular torsion. No sonographic evidence of testicular epididymitis or orchitis. Reading Radiologist: Brian Booker MD on 11/17/2018 at 11:02 AM Narrative 11/17/2018 11:02 AM CDT Ultrasound of the scrotum and testicles with pulse Doppler imaging. COMPARISON: 2017 ADDITIONAL HISTORY: Left inguinal pain. Patient initially presented to hospital for left leg pain which has not progressed to the left inguinal region. HISTORY: Left lower quadrant pain. TECHNIQUE: High frequency ultrasound of the scrotum and testicles as performed by the technologist with DICOM image capture. Can scale images were obtained; additionally, Color Doppler and pulse wave Spectral Doppler interrogation was performed and interpreted. FINDINGS: Testicular Measurements: within age appropriate normal limits. Right 3.6 x 2.8 cm and left 3.3 x 2.6 cm RIGHT: Testicle: Normal echotexture without evidence of mass. Preserved Doppler vascular flow. Epididymis: Within normal limits. LEFT: Testicle: Normal echotexture without evidence of mass. Preserved Doppler vascular flow. Epididymis: Within normal limits. Minor punctate echogenicity of the tunica albuginea, stable from prior, this is incidental and of no significance. No significant hydrocele. No significant varicocele. Procedure Note Matt Booker MD - 11/17/2018 Ultrasound of the scrotum and testicles with pulse Doppler imaging. COMPARISON: 2018 ADDITIONAL HISTORY: Left inguinal pain. Patient initially presented to hospital for left leg pain which has not progressed to the left inguinal region. HISTORY: Left lower quadrant pain. TECHNIQUE: High frequency ultrasound of the scrotum and testicles as performed by the technologist with DICOM image capture. Can scale images were obtained; additionally, Color Doppler and pulse wave Spectral Doppler interrogation was performed and interpreted. FINDINGS: Testicular Measurements: within age appropriate normal limits. Right 3.6 x 2.8 cm and left 3.3 x 2.6 cm RIGHT: Testicle: Normal echotexture without evidence of mass. Preserved Doppler vascular flow. Epididymis: Within normal limits. LEFT: Testicle: Normal echotexture without evidence of mass. Preserved Doppler vascular flow. Epididymis: Within normal limits. Minor punctate echogenicity of the tunica albuginea, stable from prior, this is incidental and of no significance. No significant hydrocele. No significant varicocele. IMPRESSION No sonographic evidence of active testicular torsion. No sonographic evidence of testicular epididymitis or orchitis. Reading Radiologist: Brian Booker MD on 11/17/2018 at 11:02 AM Vic Valenzuela MD ORDERABLES * MRI LUMBAR SPINE WO CONTRAST (11/16/2018 3:17 PM CDT) Anatomical Region Laterality Modality Spine Magnetic Resonan ce 11/16/2018 3:37 PM CDT Impressions 11/16/2018 3:44 PM CDT Remote minimal wedging of T12, likely physiologic, without spondylolisthesis or vertebral retropulsion. Remote compression fracture of T11, unchanged, of approximately 50%. Mild spondylotic degenerative changes, as described, causing mild bilateral foraminal stenosis at L3-L4 and L4-L5. Epidural fat, without central canal stenosis. Reading Radiologist: Christin Daugherty MD on 11/16/2018 at 3:44 PM Narrative 11/16/2018 3:44 PM CDT MR lumbar spine: HISTORY: 48-year-old with left lower extremity pain and numbness. COMPARISON: Sagittal reconstructions of CT abdomen pelvis from 12/17/2017. TECHNIQUE: ??MR imaging of the lumbar spine was performed on 11/16/2018 using multiple planes and multiple sequences. No intravenous contrast was administered. FINDINGS: The lumbar lordosis is preserved. There is normal alignment of lumbosacral junction. There is minimal wedging of T12, of approximately 10%, likely physiologic, without bone marrow edema, spondylolisthesis or vertebral retropulsion. There is remote compression deformity of T11, unchanged since 2018, of approximately 50%, with superior endplate Schmorl nodes, without spondylolisthesis. There is no acute compression fracture. The L1-L2, L3-L4, L4-5 and L5-S1 intervertebral spaces heights are slightly decreased, with disc desiccation. The conus is located at the L1 level. There is no abnormal signal of the distal spinal cord. T12-L1: There is minimal diffuse disc bulge, without foramina narrowing or central canal stenosis. L1-L2: There is minimal diffuse disc bulge, without foramina narrowing or central canal stenosis. L2-L3: Unremarkable. L3-L4: There is mild diffuse disc bulge. There is posterior epidural fat. There is mild bilateral foraminal. There is no central canal stenosis. L4-L5: There is mild diffuse disc bulge. There is posterior epidural fat. There is mild bilateral foramina narrowing. There is no central canal stenosis L5-S1: There is diffuse anterior and posterior epidural fat. There is a small central disc protrusion. There is no foramina narrowing. There is no central canal stenosis. Procedure Note Christin Daugherty MD - 11/16/2018 MR lumbar spine: HISTORY: 48-year-old with left lower extremity pain and numbness. COMPARISON: Sagittal reconstructions of CT abdomen pelvis from 12/17/2017. TECHNIQUE: MR imaging of the lumbar spine was performed on 11/16/2018 using multiple planes and multiple sequences. No intravenous contrast was administered. FINDINGS: The lumbar lordosis is preserved. There is normal alignment of lumbosacral junction. There is minimal wedging of T12, of approximately 10%, likely physiologic, without bone marrow edema, spondylolisthesis or vertebral retropulsion. There is remote compression deformity of T11, unchanged since 2018, of approximately 50%, with superior endplate Schmorl nodes, without spondylolisthesis. There is no acute compression fracture. The L1-L2, L3-L4, L4-5 and L5-S1 intervertebral spaces heights are slightly decreased, with disc desiccation. The conus is located at the L1 level. There is no abnormal signal of the distal spinal cord. T12-L1: There is minimal diffuse disc bulge, without foramina narrowing or central canal stenosis. L1-L2: There is minimal diffuse disc bulge, without foramina narrowing or central canal stenosis. L2-L3: Unremarkable. L3-L4: There is mild diffuse disc bulge. There is posterior epidural fat. There is mild bilateral foraminal. There is no central canal stenosis. L4-L5: There is mild diffuse disc bulge. There is posterior epidural fat. There is mild bilateral foramina narrowing. There is no central canal stenosis L5-S1: There is diffuse anterior and posterior epidural fat. There is a small central disc protrusion. There is no foramina narrowing. There is no central canal stenosis. IMPRESSION Remote minimal wedging of T12, likely physiologic, without spondylolisthesis or vertebral retropulsion. Remote compression fracture of T11, unchanged, of approximately 50%. Mild spondylotic degenerative changes, as described, causing mild bilateral foraminal stenosis at L3-L4 and L4-L5. Epidural fat, without central canal stenosis. Reading Radiologist: Christin Daugherty MD on 11/16/2018 at 3:44 PM Shon Clifford DO MR ORDERABLES * VAS BILATERAL VENOUS DUPLEX LE (11/16/2018 10:49 AM CDT) Anatomical Region Laterality Modality Intravascular Ul trasound 11/16/2018 10:3 8 AM CDT Narrative Procedure Note Tee Medina II, MD - 11/16/2018 [facility] [address] [place] [address] Lower Extremity Venous Ultrasound Report Pat.Name: MATT NICOLE.ID: [id number] .Date: 11/16/2018 Exam Time: 10:38:00 AM Study Type:LE Venous Age: 7 1970,48Y Sex: MALE Sonogrphr: IZZY Cristobal. Stat.:Inpatient Room: 558 CPT - 4: 91686 Reason for Study: Pain -Leg, left Procedures: Lower Extremity Venous - Bilateral Visit ID: [id number] ++++++++++++++++++++++++++++++++++++ SUMMARY: ++++++++++++++++++++++++++++++++++++ No evidence of deep or superficial venous thrombosis or insufficiency of either the right or left lower extremity. ++++++++++++++++++++++++++++++++++++ FINDINGS: ++++++++++++++++++++++++++++++++++++ Procedure: Venous duplex imaging of both lower extremities was performed using color flow and spectral Doppler analysis. Study Quality: This study is of adequate technical quality. Bilateral: All vessels seen appear patent and compressible. There was spontaneous and phasic flow seen in all the proximal major veins of both lower extremities. Appropriate augmentation with distal compression. No evidence of reflux with proximal compression. Signed 11/16/2018 03:11 PM Tee Medina II MD (TJ), RVT Margarita Lopes RN GYN-FISH HATCHERY LABORER VASCULAR LAB OR DERABLES * (ABNORMAL) HEMOGLOBIN A1C (11/16/2018 5:16 AM CDT) Only the most recent of2 resultswithin the time period is included. Hemoglobin A1c 6.6(H) 4.0 - 6.1 % 11/16/2018 6:43 AM T [facility] Estimated Average Glucose 143 mg/dL 11/16/2018 6:43 AM [facility] Blood BLOOD SPECIMEN / Unknown Lab Venipuncture / Unknown 11/16/2018 5:16 AM CDT 11/16/2018 5:23 AM CDT Narrative [facility] - 11/16/2018 6:43 AM CDT Attention clinician: ??Reference Range has changed. Iveth Beck MD LAB - CHEMISTRY ORD ERABLES [facility] [address] [place] [address] * (ABNORMAL) BASIC METABOLIC PANEL (CALCIUM TOTAL) (11/16/2018 5:16 AM CDT) Only the most recent of3 resultswithin the time period is included. Glucose 141(H) 74 - 106 mg/dL 11/16/2018 5:47 AM CDT [facility] Sodium 137 136 - 145 mmol/L 11/16/2018 5:47 AM CDT [facility] Potassium 4.4 3.5 - 5.1 mmol/L 11/16/2018 5:47 AM CDT [facility] Chloride 103 98 - 107 mmol/L 11/16/2018 5:47 AM CDT [facility] CO2 26 23 - 31 mmol/L 11/16/2018 5:47 AM CDT [facility] Calcium 8.9 8.4 - 10.2 mg/dL 11/16/2018 5:47 AM [facility] Anion Gap 8 8 - 16 mmol/L [facility]/16[facility]2018 [facility] BUN 19 8.9 - 20.6 mg/dL 11/16/2018 5:47 AM CDT [facility] Creatinine 0.84 0.73 - 1.18 mg/dL 11/16/2018 5:47 [facility] eGFR by MDRD >60 >60 mL/min/1.7 3m2 11/16/2018 5:47 AM [facility] eGFR by MDRD >60 >60 mL/min/1.7 3m2 11/16/2018 5:47 AM [facility] Blood BLOOD SPECIMEN / Unknown Lab Venipuncture / Unknown 11/16/2018 5:16 AM CDT 11/16/2018 5:23 AM CDT Narrative [facility] - 11/16/2018 5:47 AM CDT Attention clinician: BUN Reference Range has changed. Matt Nicholson MD LAB - CHEMISTRY CHERIE CABRALES [facility] [address] [place] [address] * MAGNESIUM BLOOD (11/16/2018 5:16 AM CDT) Only the most recent of2 resultswithin the time period is included. Magnesium 2.5 1.6 - 2.6 mg/dL 11/16/2018 9:26 AM CDT [facility] Blood BLOOD SPECIMEN / Unknown Lab Venipuncture / Unknown 11/16/2018 5:16 AM CDT 11/16/2018 5:23 AM CDT Margarita Lopes RN GYN-FISH HATCHERY LABORER LAB - CHEMISTRY ORDERABLES Performing Organization Address [facility] Co de Phone Number [facility] [address] [place] [address] * CT ABDOMEN AND PELVIS WITH IV CONTRAST (11/16/2018 12:29 AM CDT) Anatomical Region Laterality Modality Abdomen, Pelvis Computed Tomogra phy 11/16/2018 8:05 AM CDT Impressions 11/16/2018 8:[address] correlate for abdominal pain; no bowel obstruction, intra-abdominal inflammation, or obstructive uropathy bilaterally. Reading Radiologist: Shaun Gabriel MD on 11/16/2018 at 8:10 AM Narrative 11/16/2018 8:[address] abdomen and pelvis with contrast. HISTORY: Left lower quadrant pain. Patient is a 48-year-old male with left groin pain radiating through the left leg. Reported prostate cancer diagnosis. TECHNIQUE: Helical CT acquisition of abdomen and pelvis with intravenous iodinated contrast. 80 mL Isovue 370 administered IV. Comparison: December 17, 2017 FINDINGS: Lung bases are clear; no pleural fluid or consolidation. Heart size normal; no pericardial fluid. Imaged distal esophagus without abnormal distention. Liver normal in size and contour; no biliary ductal dilation or focal/solid hepatic lesion is seen. Cholecystectomy clips are present at the hepatic hilum. Portal vein is patent. Spleen normal in size. Pancreas without ductal dilation or adjacent inflammation. No adrenal gland nodularity. Kidneys enhance symmetrically; no hydronephrosis or solid renal lesion. The ureters are decompressed. A small amount of urine is seen with me urinary bladder. Calcification within the prostate gland. No pelvic mass. Sigmoid predominant colonic diverticulosis. Mild fecal loading throughout the colon. Prior appendectomy. No evidence of bowel obstruction, free air, or free fluid in the abdomen/pelvis. The previously described questionable bowel wall thickening within the left midabdomen is felt to represent decompression as opposed to true enteritis, although evaluation is limited in the absence of oral contrast media. No pathologic inguinal, pelvic, retroperitoneal, or mesenteric lymphadenopathy is present. Abdominal aorta is nonaneurysmal; proximal mesenteric branch vessels are patent. Review of bone windows is without aggressive appearing lytic or blastic osseous lesion. There is minimal anterior height loss at the T10-T12 levels which appears stable from prior examination. Procedure Note Shaun Gabriel MD - 11/16/2018 CT abdomen and pelvis with contrast. HISTORY: Left lower quadrant pain. Patient is a 48-year-old male with left groin pain radiating through the left leg. Reported prostate cancer diagnosis. TECHNIQUE: Helical CT acquisition of abdomen and pelvis with intravenous iodinated contrast. 80 mL Isovue 370 administered IV. Comparison: December 17, 2017 FINDINGS: Lung bases are clear; no pleural fluid or consolidation. Heart size normal; no pericardial fluid. Imaged distal esophagus without abnormal distention. Liver normal in size and contour; no biliary ductal dilation or focal/solid hepatic lesion is seen. Cholecystectomy clips are present at the hepatic hilum. Portal vein is patent. Spleen normal in size. Pancreas without ductal dilation or adjacent inflammation. No adrenal gland nodularity. Kidneys enhance symmetrically; no hydronephrosis or solid renal lesion. The ureters are decompressed. A small amount of urine is seen with me urinary bladder. Calcification within the prostate gland. No pelvic mass. Sigmoid predominant colonic diverticulosis. Mild fecal loading throughout the colon. Prior appendectomy. No evidence of bowel obstruction, free air, or free fluid in the abdomen/pelvis. The previously described questionable bowel wall thickening within the left midabdomen is felt to represent decompression as opposed to true enteritis, although evaluation is limited in the absence of oral contrast media. No pathologic inguinal, pelvic, retroperitoneal, or mesenteric lymphadenopathy is present. Abdominal aorta is nonaneurysmal; proximal mesenteric branch vessels are patent. Review of bone windows is without aggressive appearing lytic or blastic osseous lesion. There is minimal anterior height loss at the T10-T12 levels which appears stable from prior examination. IMPRESSION No CT correlate for abdominal pain; no bowel obstruction, intra-abdominal inflammation, or obstructive uropathy bilaterally. Reading Radiologist: Shaun Gabreil MD on 11/16/2018 at 8:10 AM Matt Nicholson MD CT ORDERABLES * (ABNORMAL) URINALYSIS REFLEX MICROSCOPIC REFLEX CULTURE (11/15/2018 11:41 PM CDT) Only the most recent of2 resultswithin the time period is included. Color UA Yellow Straw, Yellow 11/15/2018 11:49 PM [facility] Clarity UA Clear Clear 11/15/2018 11:49 PM [facility] Glucose UA 3+(A) Negative 11/15/2018 11:49 PM [facility] Bilirubin UA Negative Negative 11/15/2018 11:49 PM [facility] Ketone UA Negative Negative 11/15/2018 11:49 PM [facility] Specific Kingsley UA 1.012 1.005 - 1.030 11/15/2018 11:49 PM [facility] Blood UA Negative Negative 11/15/2018 11:49 PM [facility] pH UA 5.0 5.0 - 8.0 pH 11/15/2018 11:49 PM [facility] Protein UA Negative Negative 11/15/2018 11:49 PM [facility] Urobilinogen UA Negative Negative mg/dL 11/15/2018 11:49 PM [facility] Nitrite UA Negative Negative 11/15/2018 11:49 PM [facility] Leukocyte UA Negative Negative 11/15/2018 11:49 PM [facility] Urine Microscopy Urine microscopy not indicated 11/15/2018 11:49 PM [facility] Reflex Status Culture not indicated 11/15/2018 11:49 PM [facility] Urine URINE SPECIMEN OBTAINED BY CLEAN CATCH PROCEDURE / Unknown Collection / Unknown 11/15/2018 11:41 PM CDT 11/15/2018 11:43 PM CDT Narrative [facility] - 11/15/2018 11:49 PM CDT Matt Nicholson MD LAB - URINALYSIS ORD ERABLES [facility] [address] [place] [address] * ERYTHROCYTE SEDIMENTATION RATE (11/15/2018 11:23 PM CDT) Pathologist [facility] [place] Erythrocyte Sedimentation Rate Automated 4 0 - 15 MM/HR 11/16/2018 1:59 AM CDT [facility] Blood BLOOD SPECIMEN / Unknown Venipuncture / Unknown 11/15/2018 11:23 PM CDT 11/15/2018 11:35 PM CDT Matt Nicholson MD LAB - HEMATOLOGY ORD ERABLES Performing Organization Address [facility] Co de Phone Number [facility] [address] [place] [address] * C-REACTIVE PROTEIN SENSITIVE (11/15/2018 11:22 PM CDT) Pathologist [facility] [place] C-Reactive Protein High Sensitivity 0.07 <0.30 mg/dL 11/16/2018 10:15 AM CDT [facility] Blood BLOOD SPECIMEN / Unknown Venipuncture / Unknown 11/15/2018 11:22 PM CDT 11/16/2018 1:54 AM CDT Narrative [facility] - 11/16/2018 10:15 AM CDT C-REACTIVE PROTEIN SENSITIVE INTERPRETATION Patients with higher High Sensitivity C-Reactive Protein (hsCRP) concentrations are more likelyto develop stroke, myocardial infarction, and severeperipheral vascular disease. C-Reactive Protein (CRP) is a nonspecificmarker of inflammation and a variety of conditions other than atherosclerosis may cause Elevated concentrations. If the first result is greater than 0.30 mg/dL, recommend repeating test at least 2 weeks later in a metabolically stable state, free of infection or acute illness. The lower of the two results should be used to determine the patient's risk. C-REACTIVE PROTEIN SENSITIVE results are used to assign risk as follows: ? Less than 0.10 ??mg/dL ?Low risk ? 0.10-0.30 mg/dL ?Average risk ? 0.31-0.99 mg/dL ?High risk ? Greater than 0.99 mg/dL ?Very high risk ? 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 Reading Radiologist: Dionne Rader MD on 07/10/2018 at 8:31 AM Narrative 07/10/2018 8:31 AM HANDLE BAR ASSEMBLER History: Left shoulder pain following fall COMPARISON: None Technique/findings: 3 views of the left shoulder demonstrate the bones to be well-mineralized. There is no displaced fracture or dislocation. No significant degenerative changes. The soft tissues are unremarkable. Procedure Note Dionne Rader MD - 07/10/2018 History: Left shoulder pain following fall COMPARISON: None Technique/findings: 3 views of the left shoulder demonstrate the bones to be well-mineralized. There is no displaced fracture or dislocation. No significant degenerative changes. The soft tissues are unremarkable. IMPRESSION No displaced fractures or dislocation identified. Reading Radiologist: Dionne Rader MD on 07/10/2018 at 8:31 AM Zainab May MD DIAGNOSTIC IMAGING O RDERABLES * CT ABD/PELVIS STONE PROTOCOL (12/17/2017 1:45 PM CDT) Anatomical Region Laterality Modality Abdomen Computed Tomogra phy 12/17/2017 1:46 PM CDT Impressions 12/17/2017 1:49 PM CDT No urinary stones. No evident acute intra-abdominal abnormality identified. Reading Radiologist: Prince Hirsch MD on 12/17/2017 at 1:49 PM Narrative 12/17/2017 1:49 PM CDT Procedure Title: CT RENAL STONE*[id number] HISTORY: Testicular pain, unspecified COMPARISON: None. TECHNIQUE: Helical CT acquisition without intravenous contrast of the abdomen and pelvis. FINDINGS: Examination is limited by lack of IV contrast administration, per protocol for evaluation of urinary stones. Minimal basilar atelectasis. No pleural effusion. No renal stones. No ureteral stone. No hydroureteronephrosis. Bladder decompressed without internal stone. Prostate not enlarged. Prior cholecystectomy. Noncontrast enhanced appearance of the solid abdominal viscera is unremarkable. Prior appendectomy. Scattered colonic diverticula; no findings to suggest acute diverticulitis. No free intraperitoneal air, fluid, or adenopathy. No acute osseous abnormality. Procedure Note Prince Hirsch MD - 12/17/2017 Procedure Title: CT RENAL STONE*[id number] HISTORY: Testicular pain, unspecified COMPARISON: None. TECHNIQUE: Helical CT acquisition without intravenous contrast of the abdomen and pelvis. FINDINGS: Examination is limited by lack of IV contrast administration, per protocol for evaluation of urinary stones. Minimal basilar atelectasis. No pleural effusion. No renal stones. No ureteral stone. No hydroureteronephrosis. Bladder decompressed without internal stone. Prostate not enlarged. Prior cholecystectomy. Noncontrast enhanced appearance of the solid abdominal viscera is unremarkable. Prior appendectomy. Scattered colonic diverticula; no findings to suggest acute diverticulitis. No free intraperitoneal air, fluid, or adenopathy. No acute osseous abnormality. IMPRESSION No urinary stones. No evident acute intra-abdominal abnormality identified. Reading Radiologist: Prince Hirsch MD on 12/17/2017 at 1:49 PM [address] MD CT ORDERABLES * CHLAMYDIA + GC AMPLIFIED PROBE (12/17/2017 10:41 AM CDT) [facility] Chlamydia Amplified Probe Negative Negative 12/18/2017 9:18 AM CDT [facility] GC Amplified Probe Negative Negative 12/18/2017 9:18 AM CDT [facility] Microbiology ENTIRE ENDOCERVIX / Unknown Collection / Unknown 12/17/2017 10:41 AM CDT 12/17/2017 4:05 PM CDT Narrative [facility] - 12/18/2017 9:18 AM CDT Results based on detection/no detection of ribosomal RNA by amplified method. Prince Brennan MD LAB - MICROBIOLOGY O RDERABLES [facility] [address] [place] [address], [facility] [phone] * EKG 12-LEAD (11/26/2012 1:55 AM CDT) Only the most recent of2 resultswithin the time period is included. Narrative [facility] - 11/26/2012 1:55 AM CDT A scan was deleted from the Results section by Desmond Lorenzana [[id number]] on 11/26/2012 at ??1:55 AM (File: [id number]) Procedure Note Provider, MD Enrique - 11/20/2017 A scan was deleted from the Results section by Desmond Lorenzana [[id number]] on 11/26/2012t 1:55 AM (File:[id number]) Paulo Nuñez MD ECG ORDERABLES Performing Organization Address City/[facility]/ZIP Co de Phone Number [facility] * (ABNORMAL) GLUCOSE ACCUCHECK (11/10/2012 11:22 AM CDT) Only the most recent of5 resultswithin the time period is included. Glucose, Fingerstick 139(H) 70 - 110 MG/DL [facility] Comment:PERFORMED BY: MELA LOWERY 11/10/2012 11:2 2 AM CDT 11/10/2012 11:50 AM CDT Paulo Nuñez MD LAB - CHEMISTRY CHERIE CABRALES Performing Organization Address [facility]/ZIP Co de Phone Number [address] [phone] * TROPONIN I (11/09/2012 6:00 PM CDT) Only the most recent of3 resultswithin the time period is included. Pathologist [facility] [place] Troponin I < 0.010 <0.032 ng/mL [facility] Comment: ? NOTE Any condition resulting in myocardial cell damage can potentially increase cardiac troponin-I levels. Published studies have documented that these conditions include, but are not limited to, angina, unstable angina, congestive heart failure, myocarditis, cardiac surgery, or invasive testing and non-cardiac related causes such as pulmonary embolism, renal failure, and sepsis. 6-8 hours are required for cardiac troponin I to increase after onset of chest pain. ??Troponin values generally remain elevated for 5-10 days. BLOOD SPECIMEN / Unknown 11/09/2012 6:00 PM CDT 11/09/2012 6:11 PM CDT Paulo Nuñez MD LAB - CHEMISTRY CHERIE CABRALES Performing Organization Address [facility] Co de Phone Number [address] [phone] * CK + CKMB PANEL (11/09/2012 6:00 PM CDT) Only the most recent of3 resultswithin the time period is included. Pathologist [facility] [place] CK Total 70 30 - 200 Units/L [facility] CK-MB 0.7 0.0 - 6.6 ng/mL [facility] Comment: ? CKMB Reference Range 6.6 ng/mL or greater = Positive For indeterminate results, additional specimen(s) for CKMB, drawn at least one hour apart, may aid diagnosis. Positive CKMB results should be clinically interpreted in combination with total CK serum level. ??In patients without cardiac muscle damage, CKMB (ng/mL) is generally <2.5% of total CK enzyme activity (Units/L). Virtually all patients with acute myocardial infarction have CKMB values 6.6 ng/mL or greater for samples drawn at least 8-12 hours after the onset of chest pain. ??CKMB values generally remain elevated for 2-3 days. BLOOD SPECIMEN / Unknown 11/09/2012 6:00 PM CDT 11/09/2012 6:11 PM CDT Paulo Nuñez MD LAB - CHEMISTRY CHERIE CABRALES [facility] Organization Address City/State/[facility] Co de Phone Number [address] [phone] * MRI BRAIN WO CONTRAST (11/09/2012 4:48 PM CDT) Anatomical Region Laterality Modality Head Other Impressions 11/10/2012 9:22 AM CDT IMPRESSION: 1. No evidence of infarct. 2. ??A 2 mm T2 FLAIR hyperintensity within the left centrum semiovale, nonspecific, usually no clinical significance. This report was approved ??by Fay Fox M.D. ?? on 11/10/2012 8:59 AM . I, Dr. MARCIO GARCIA M.D. have personally reviewed and interpreted this examination/study. This report was electronically signed by MARCIO GARCIA M.D. ??on 11/10/2012 9:22 AM . Narrative 11/10/2012 9:22 AM CDT EXAMINATION: Magnetic resonance imaging (MRI) of the brain without contrast HISTORY: Ischemic stroke TECHNIQUE: MRI of the brain was performed without contrast according to standard protocol. FINDINGS: Comparison is made with CTA head and neck 11/09/2012 No evidence of acute or chronic hemorrhage is identified. No evidence of acute cerebral infarction is seen. The ventricles are of normal size, shape, and morphology. No mass effect or midline shift is seen. There is a 2 mm T2 FLAIR hyperintensity within the left centrum semiovale, which is nonspecific. The corpus callosum and sella appear normal. The posterior fossa, brainstem, and craniocervical junction appear normal. Other than a right maxillary sinus mucus retention cyst, the visualized portions of the orbits, paranasal sinuses, and mastoids appear normal. Normal flow voids are demonstrated in the carotid arteries and basilar artery. The calvarium and visualized cervical spine appear normal. Procedure Note Marcio Garcia MD - 09/13/2017 EXAMINATION: Magnetic resonance imaging (MRI) of the brain withoutcontrast HISTORY: Ischemic stroke TECHNIQUE: MRI of the brain was performed without contrast according tostandard protocol. FINDINGS: Comparison is made with CTA head and neck 11/09/2012 No evidence of acute or chronic hemorrhage is identified. No evidence ofacute cerebral infarction is seen. The ventricles are of normal size,shape, and morphology. No mass effect or midline shift is seen. There is a2 mm T2 FLAIR hyperintensity within the left centrum semiovale, which is nonspecific. The corpus callosum andsella appear normal. The posterior fossa, brainstem, and craniocervicaljunction appear normal. Other than a right maxillary sinus mucus retention cyst, the visualizedportions of the orbits, paranasal sinuses, and mastoids appear normal.Normal flow voids are demonstrated in the carotid arteries and basilarartery. The calvarium and visualized cervical spine appear normal. IMPRESSION IMPRESSION: 1. No evidence of infarct. 2. A 2 mm T2 FLAIR hyperintensity within the left centrum semiovale,nonspecific, usually no clinical significance. This report was approved by Fay Fox M.D. on 11/10/2012 8:59 AM . I, Dr. MARCIO GARCIA M.D. have personally reviewed and interpreted thisexamination/study. This report was electronically signed by MARCIO GARCIA M.D. on 11/10/20129:22 AM . Paulo Nuñez MD MR ORDERABLES * CT ANGIO BRAIN AND NECK (11/09/2012 12:10 PM CDT) Anatomical Region Laterality Modality Head Other Impressions 11/09/2012 1:14 PM CDT IMPRESSION: 1. No acute intracranial process. 2. Normal head and neck CTA. This report was electronically signed by MARCIO GARCIA M.D. ??on 11/09/2012 1:14 PM . Narrative 11/09/2012 1:14 PM CDT EXAMINATION: Head CT without contrast. CTA of the head and neck with contrast. HISTORY: stroke TECHNIQUE: Axial CT images of the head were obtained from the skullbase to vertex without intravenous contrast. CTA of the head and neck was performed after uneventful administration of 50 mL Omnipaque 350 intravenous contrast according to standard protocol. COMPARISON: Head CT dated 11/08/2012 from an outside Hospital. FINDINGS: Noncontrast head CT: There is no evidence of acute intracranial hemorrhage or acute infarct. There is no mass effect or midline shift. The ventricles are normal in size and configuration. The basal cisterns are patent. There is no intra-axial or extra-axial fluid collection. The scott-white matter differentiation is preserved. The visualized portions of the orbits, globes, paranasal sinuses and mastoids are normal. No fracture-dislocations are identified. There is mild multilevel degenerative disease. Head CTA: The visualized portions of the distal internal carotid arteries are patent. The bilateral anterior, middle and posterior cerebral arteries are patent. ? The superior cerebellar, basilar and distal vertebral arteries are patent. There is no evidence of intracranial aneurysm or AVM. Neck CTA: The left subclavian, right subclavian and innominate arteries are normal in caliber. The left and right common carotid arteries are normal in caliber. The carotid bifurcations are normal. The external and internal carotid arteries are normal. The vertebral arteries are patent bilaterally. There is no evidence of arterial dissection, pseudoaneurysm or AVM. Procedure Note Marcio Garcia MD - 09/13/2017 EXAMINATION: Head CT without contrast. CTA of the head and neck withcontrast. HISTORY: stroke TECHNIQUE: Axial CT images of the head were obtained from the skullbase tovertex without intravenous contrast. CTA of the head and neck wasperformed after uneventful administration of 50 mL Omnipaque 350intravenous contrast according to standard protocol. COMPARISON: Head CT dated 11/08/2012 from an outside Hospital. FINDINGS: Noncontrast head CT: There is no evidence of acute intracranial hemorrhage or acute infarct.There is no mass effect or midline shift. The ventricles are normal insize and configuration. The basal cisterns are patent. There is nointra-axial or extra-axial fluid collection. The scott-white matter differentiation is preserved. The visualized portions of the orbits, globes, paranasal sinuses andmastoids are normal. No fracture-dislocations are identified. There is mild multilevel degenerative disease. Head CTA: The visualized portions of the distal internal carotid arteries arepatent. The bilateral anterior, middle and posterior cerebral arteries arepatent. The superior cerebellar, basilar and distal vertebral arteriesare patent. There is no evidence of intracranial aneurysm or AVM. Neck CTA: The left subclavian, right subclavian and innominate arteries are normalin caliber. The left and right common carotid arteries are normal incaliber. The carotid bifurcations are normal. The external and internalcarotid arteries are normal. The vertebral arteries are patent bilaterally. There is no evidence ofarterial dissection, pseudoaneurysm or AVM. IMPRESSION IMPRESSION: 1. No acute intracranial process. 2. Normal head and neck CTA. This report was electronically signed by MARCIO GARCIA M.D. on 11/09/20121:14 PM . Paulo Nuñez MD CT ORDERABLES * PTT U (11/09/2012 12:10 AM CDT) APTT 27.1 23.0 - 38.4 SECONDS [facility] Comment: SUGGESTED THERAPEUTIC RANGE FOR FULL DOSE I.V. HEPARIN THERAPY FOR VENOUS THROMBOEMBOLISM IS 66.0 - 91.0 SECONDS, WITH AN APTT RATIO OF 2.1 - 3.0. APTT Ratio 0.88 [facility] Plasma specimen (specimen) 11/09/2012 12:10 AM CDT 11/09/2012 12:31 AM CDT Narrative [facility] - 11/09/2012 12:45 AM CDT Is patient on Heparin, Argatroban or Dabigatran?->N IS PATIENT ON HEPARIN? (Y OR N) N Paulo Nuñez MD LAB - COAGULATION OR DERABLES [address] [phone] * (ABNORMAL) URINALYSIS W/MICROSCOPIC NO CULTURE (11/09/2012 12:10 AM CDT) Color UA YELLOW STRW,YELLOW [facility] Clarity UA CLEAR CLEAR [facility] Specific [place] Urine 1.015 1.001 - 1.030 [facility] pH UA <= 5.0 5.0 - 8.0 [facility] Protein UA NEGATIVE <20 mg/dL [facility] Glucose UA NEGATIVE NEGATIVE mg/dL [facility] Ketones NEGATIVE NEGATIVE mg/dL [facility] Bilirubin UA NEGATIVE NEGATIVE mg/dL [facility] Blood UA NEGATIVE NEGATIVE [facility] Nitrite UA NEGATIVE NEGATIVE [facility] Leukocyte Esterase NEGATIVE NEGATIVE [facility] Urobilinogen UA < 2.0 <2.0 mg/dL [facility] WBC Urine < 1 0 - 2 /HPF [facility] Mucus Urine RARE(A) NONE SEEN /LPF [facility] Urine specimen (specimen) URINE SPECIMEN OBTAINED BY CLEAN CATCH PROCEDURE / Unknown 11/09/2012 12:10 AM CDT 11/09/2012 12:31 AM CDT Paulo Nuñez MD LAB - URINALYSIS ORD ERABLES Performing Organization Address City/State/[facility] Co de Phone Number [address] [phone] * DRUG ABUSE PANEL 10-20+ETHANOL URINE NO CONFIRM (11/09/2012 12:10 AM CDT) Amphetamines NEGATIVE NEGATIVE [facility] Comment:Positive Cutoff: >=1 000 ng/mL Barbiturate NEGATIVE NEGATIVE [facility] Comment:Positive Cutoff: >=2 00 ng/mL Benzodiazepine Screen Urine NEGATIVE NEGATIVE [facility] Comment:Positive Cutoff: >=2 00 ng/mL Opiates NEGATIVE NEGATIVE [facility] Comment:Positive Cutoff: >=3 00 ng/mL Cocaine Metabolite Urine NEGATIVE NEGATIVE [facility] Comment:Positive Cutoff: >=3 00 ng/mL Phencyclidine Screen Urine NEGATIVE NEGATIVE [facility] Comment:Positive Cutoff: >=2 5 ng/mL Cannabinoids Screen Urine NEGATIVE NEGATIVE [facility] Comment:Positive Cutoff: >=5 0 ng/mL Methadone NEGATIVE NEGATIVE [facility] Comment:Positive Cutoff: >=3 00 ng/mL Note SEE NOTE [facility] Comment: Positive results should be confirmed by another generally accepted non-immunological method such as gas chromatography or mass spectrometry. Toxicology testing by the [facility] is an aid to medical diagnosis and treatment of patients. No documented chain of custody was maintained. Results are intended to be used for clinical purposes only. Note SEE NOTE [facility] Comment: The UTOX Panel does not screen for Propoxyphene, Meprobamate, Carisoprodol, Trazodone, rhho-dyu-gepymgr medications and/or volatiles (Acetone, Isopropanol, Methanol, Ethylene Glycol). Ethanol, Salicylate, Acetaminophen, Tricyclic Antidepressants and several therapeutic drugs may be individually assayed in a serum specimen. Urine specimen (specimen) URINE SPECIMEN OBTAINED BY CLEAN CATCH PROCEDURE / Unknown 11/09/2012 12:10 AM CDT 11/09/2012 12:31 AM CDT Paulo Nuñez MD LAB - URINE CHEMISTR Y ORDERABLES Performing Organization Address [facility]/ZIP Co de Phone Number [address] [phone] * PHOSPHORUS BLOOD (11/09/2012 12:10 AM CDT) Phosphorus 3.0 2.3 - 4.7 mg/dL [facility] Serum 11/09/2012 12:1 0 AM CDT 11/09/2012 12:31 AM CDT Narrative [facility] - 11/09/2012 1:04 AM CDT IS PATIENT ON HEPARIN? (Y OR N) N Paulo Nuñez MD LAB - CHEMISTRY ORDE RABLES Performing Organization Address [facility]/ZIP Co de Phone Number [address] [phone] * HEPATIC FUNCTION PANEL (11/09/2012 12:10 AM CDT) Protein Total 6.9 6.0 - 8.3 g/dL [facility] Albumin 3.8 3.4 - 5.0 g/dL [facility] Bilirubin Total 0.5 0.2 - 1.2 mg/dL [facility] Alkaline Phosphatase 54 40 - 150 Units/L [facility] ALT 8 0 - 55 Units/L [facility] AST 18 5 - 34 Units/L [facility] Albumin/Globulin Ratio 1.2 1.1 - 2.3 [facility] Bilirubin Direct 0.2 0.0 - 0.5 mg/dL [facility] Bilirubin Indirect 0.3 mg/dL [facility] Comment: Unconjugated bilirubin is a calculated value, reference ranges have not been established Venous blood specimen (specimen) 11/09/2012 12:10 AM CDT 11/09/2012 12:31 AM CDT Narrative [facility] - 11/09/2012 1:04 AM CDT IS PATIENT ON HEPARIN? (Y OR N) N Paulo Nuñez MD LAB - CHEMISTRY CHERIE CABRALES [facility] Organization Address City/State/[facility] Co de Phone Number [address] [phone] * (ABNORMAL) LIPID PROFILE (11/09/2012 12:10 AM CDT) Cholesterol Total 199 <200 mg/dL [facility] HDL 56 > OR = 40 mg/dL [facility] Comment: ATP III classification of HDL cholesterol: <40 mg/dL Low; considered a major risk factor >60 mg/dL High; considered a negative risk factor Triglycerides 339(H) <150 mg/dL [facility] Comment: ATP III classification of Triglycerides: < 150 mg/dL ??Normal triglycerides 150-199 mg/dL Borderline-high triglycerides 200-400 mg/dL High triglycerides > 500 mg/dL ??Very high triglycerides LDL Calculated 75 0 - 100 mg/dL [facility] Comment: ATP III classification of LDL cholesterol: <100 mg/dL ??Optimal 100-129 Near optimal/above optimal 130-159 Borderline high 160-189 High >190 ?? Very high 11/09/2012 12:1 0 AM CDT 11/09/2012 12:31 AM CDT Narrative [facility] - 11/09/2012 12:19 PM CDT IS PATIENT ON HEPARIN? (Y OR N) N Paulo Nuñez MD LAB - CHEMISTRY CHERIE CABRALES [facility] Organization Address City/State/ZIP Co de Phone Number [address] [phone] * XR CHEST 1VW PORTABLE (11/08/2012 11:45 PM CDT) Anatomical Region Laterality Modality Chest Other Impressions 11/09/2012 6:06 PM CDT Impression: No acute pulmonary process. This report was electronically signed by LULÚ BARNES M.D. ??on 11/09/2012 6:06 PM . Narrative 11/09/2012 6:06 PM CDT Exam: Portable chest Date: ??11/08/2012 11:30 PM History: ??acute ischemic stroke Findings: Lung volumes are low. Minimal atelectasis is seen in the right base. There is no additional pulmonary opacity, pulmonary edema, pleural effusion, or pneumothorax. The heart size and mediastinal contours are normal. The bony thorax is intact. Procedure Note Lulú Barnes MD - 09/13/2017 Exam: Portable chest Date: 11/08/2012 11:30 PM History: acute ischemic stroke Findings: Lung volumes are low. Minimal atelectasis is seen in the right base. Thereis no additional pulmonary opacity, pulmonary edema, pleural effusion, orpneumothorax. The heart size and mediastinal contours are normal. The bony thorax is intact. IMPRESSION Impression: No acute pulmonary process. This report was electronically signed by LULÚ BARNES M.D. on 11/09/20126:06 PM . Paulo Nuñez MD DIAGNOSTIC IMAGING O RDERABLES * ECHO W DOPPLER AND COLOR FLOW (11/08/2012 12:00 AM CDT) Anatomical Region Laterality Modality Other 11/08/2012 Paulo Nuñez MD ECHOCARDIOGRAPHY RAD IANT Care Teams Orthopedic Cast Specialist Relationship Specialty Start Date End Date Fidel Camejo MD [address] [place] [address] PCP - General Family Medicine 04/10/24
--- OUTSIDE RECORDS SUMMARY | 2024-07-07 15:16 | XMS_ITS | Clinical Summary ---
Author Organization [facility] [address] Address [address] [place] [address] Care Team Providers Care Urology Physician Name Role Phone Dwight Nascimento MD Unavailable Matt Mathews MD Primary Care Provider [phone] Allergies Active Allergy Reactions Criticality Noted Date [...] 2-3 TIMES DAILY 022 Active blood-glucose meter (Au FINANCIERSuch Ultra2 Meter) misc CHECK 2-3 TIMES PER DAY 022 Active cyclobenzaprine (FLEXERIL) 10 mg tablet Take 1 tablet (10 mg total) by mouth 3 (three) times a day as needed for muscle spasms 023 Active empagliflozin (Jardiance) 10 mg tablet Take 1 tablet (10 mg total) by mouth daily 022 Active lancets (MacrotekTouch Delica Plus Lancet) 30 gauge misc CHECK [...] 08/18/2022 Assessment & Plan (08/18/2022 1:51 PM ASSISTANT SURVEYOR): Patient reports decreased edema; low continues to [...] 04/29/2022 Assessment & Plan (04/29/2022 1:45 PM ASSISTANT SURVEYOR): To hospital for severe pain and diarrhea; [...] 09/22/2021 Assessment & Plan (07/10/2022 12:41 PM ASSISTANT SURVEYOR): Continues to be present, causing pain and [...] medication Assessment & Plan (07/29/2022 2:02 PM ASSISTANT SURVEYOR): Patient reports generally improved pain management, though decreased response to 5 mg of oxycodone; discussed with patient metabolism pathway limits use of hydrocodone due to risk of overdose and accumulation of metabolites Will increase oxycodone at next refill Assessment & Plan (06/13/2021 10:19 AM ASSISTANT SURVEYOR): Patient was advised given concern for an incarcerated umbilical hernia to report to the er now. He is going to [facility]. He was asked to contact the office [...] outcome. Assessment & Plan (06/03/2021 6:29 PM ASSISTANT SURVEYOR): Patient continues to complain of jeovany-umbilical abdominal pain and is requesting continued refills of Tramadol. When asked how many he had left he states he ran out of them a week ago -- He was just given #12 on 05/13 upon discharge from [facility]. Today is 12/8 so if he ran out a week ago that was 12/. He retracted and said he was just [...] 7:11 PM CDT): Still awaiting records from [facility] regarding the Cardiology evaluation of the pericardial [...] MEL. Assessment & Plan (06/03/2021 6:10 PM ASSISTANT SURVEYOR): Positive MEL. Per Rheumatology evaluation there is no rheumatologic cause for his symptoms as he does not have any clinical features of rheumatologic connective tissues disease at this time. Hence none of his pain is related to an autoimmune condition at this point. Assessment & Plan (01/27/2021 10:05 PM CDT): [facility] appointment Assessment & Plan [...] management Assessment & Plan (06/03/2021 6:10 PM ASSISTANT SURVEYOR): Chronic wedge compression fracture at T11. Patient [...] No hx of HE/jaundice. MRCP 05/2020 at [facility] with cirrhosis/hepatic steatosis, 1.8 cm arterially enhancing observation without washout in segment 5 (LR-3). Labs at [facility] with +ve MEL 1:1280 but -ve AMA/ASMA, normal total IGG, normal ceruloplasmin/A1AT/HFE gene analysis despite elevated ferritin. AFP 4.6 in 03/2020. Hepatitis panel -ve (non-immune to Hep B). Labs 10/2020 with normal AST/ALT, TB 0.4, AKP 138, SCr 0.78, plts 120s, Na 139, INR 1.1 in 06/2020, MELD 7. Last drink 12/2020. Has developed bleeding EV requiring banding x 2 done locally at [facility] in [place], based on OSH records 1 EGD was [...] paracentesis Assessment & Plan (08/18/2022 1:49 PM ASSISTANT SURVEYOR): Not well controlled, patient had 5 L removed by paracentesis 1 week ago; is already refilled with ascitic fluid Patient to follow-up with cardiology on will likely need standing order for paracentesis Continue furosemide 80 mg b.i.d., spironolactone 100 mg daily Complicated by worsening peripheral edema Patient to follow-up with hepatology at end of week Assessment & Plan (08/04/2022 10:04 AM ASSISTANT SURVEYOR): Not well controlled; continues to have significant [...] site Assessment & Plan (07/29/2022 2:01 PM ASSISTANT SURVEYOR): Not well controlled, worsening; patient has recurrent [...] NAFLD Assessment & Plan (07/10/2022 12:43 PM ASSISTANT SURVEYOR): Admitted for EGD with banding, required 3 [...] 10:13 AM CDT): Continue per GI at [facility] for his cirrhosis. Stressed importance of following up on a regular basis due his progressive disease. Assessment & Plan (09/15/2021 8:39 PM CDT): Continue per hepatology at [facility] Assessment & Plan (06/03/2021 6:09 PM ASSISTANT SURVEYOR): Continue her GI at [facility], Dr. Jasso. He has been started on new medication to help decrease the ascites buildup. Encouraged him to follow their directions and keep his appointments. Strongly encouraged complete cessation of alcohol. I reviewed the lab results regarding alcohol use. He still adamant that he has not drank since his 51th birthday. Assessment & Plan (05/14/2021 12:07 PM ASSISTANT SURVEYOR): - MELD labs today, and repeat autoimmune [...] followup with local GI. Await recommendation from [facility] hepatology Assessment & Plan (12/12/2020 6:56 PM [...] a since they are part of the [facility] system and can share medical records. Will make that referral Assessment & Plan (12/02/2020 10:30 AM CDT): Per GI note, unknown etiology of the cirrhosis/ascites. However, I have placed a call to Dr. Rodriguez, Attending GI at [facility] to discuss his recent labs, most importantly the positive MEL at 1:1280. I left a message on 11/20 and will await return call. I have concern for possible autoimmune hepatitis as the underlying cause. Patient appears to have increased ascites over the past few weeks. Increased pain. Increased orthopnea. Will check abdominal US at [facility] (patient to schedule on own as order and phone number provided). If has acute increase in sxs, encouraged to present to [facility] ER for further evaluation so GI/heapatology group can evaluate. He would like to transfer care to [facility]. Tramadol a few times a day is managing pain. Monitor closely Dr. Gordon, shoulder boner at [facility] returned my call on Thursday, November 23. Discussed patient at length. In [...] PM CDT): Stressed importance of followup with shoulder boner. He states he has followup with Dr. Medrano at [facility] at the end of October and next week with Dr. Claros. He is having daily pain. Attempted to contact Dr Claros. Multiple messages left with staff and call not returned. Will await recommendations from Dr. Medrano. Discussed referral to [facility] shoulder boner --- patient has a family member in [...] diet Assessment & Plan (07/10/2022 12:44 PM ASSISTANT SURVEYOR): Not well controlled, has been on insulin [...] 05/22/20212021 Assessment & Plan (05/22/2021 10:54 AM ASSISTANT SURVEYOR): Obesity is unchanged. Discussed the patient's BMI. The BMI is above average. BMI management plan is completed. BMI Follow-up includes: nutrition counseling, exercise counseling and education provided. BMI 31.0-31.9,adult 05/22/2021 03/16/20 22 Assessment & Plan (05/22/2021 10:54 AM ASSISTANT SURVEYOR): Obesity is unchanged. Discussed the patient's BMI. [...] and education provided. BMI 31.0-31.9,adult 11/20/2020 12/13/19 21 Assessment & Plan (11/29/2020 1:05 PM CDT): [...] nutrition counseling, exercise counseling and education provided. Encounters Date Type Department Care Team Description 07/01/2024 Telephone [facility] G[facility]enterology [address] [place] [address] [place] [address] Nancy Christensen 06/29/2024 Telephone [facility] [address] [place] [address] [place] [address] Julissa Molina LPN 06/23/2024 11:55 AM ASSISTANT SURVEYOR Lab [facility] [address] [place] [address] Alcoholic cirrhosis of liver with ascites (CMS/HCC) (HCC); Type 2 diabetes mellitus without complication, with long-term current use of insulin (CMS/HCC) (HCC) 06/23/2024 9:40 AM ASSISTANT SURVEYOR Office Visit [facility]enter[facility] [address] [place] [address] Elan Hutchinson MD Alcoholic cirrhosis of liver with ascites (CMS/HCC) (HCC) (Primary Dx); Type 2 diabetes mellitus without complication, with long-term current use of insulin (CMS/HCC) (HCC); Alcohol use disorder; Hepatic encephalopathy (HCC) 06/10/2024 Orders Only [facility] [address] [place] [id number] Matt Mathews MD 05/20/2024 Orders Only [facility] [address] [place] [address] Matt Mathews MD 05/19/2024 Orders Only [facility] [address] [place] [address] Matt Mathews MD 05/18/2024 Orders Only [facility] [address] [place] [address] Scanning, Provider 05/17/2024 Orders Only [facility] [address] [place] [address] Matt Mathews MD 05/05/2024 Telephone [facility] [address] [place] [address] [place] [address] Serena Varghese LPN 05/03/2024 Orders Only [facility] [address] [place] [id number] Matt Mathews MD 04/27/2024 Orders Only [facility] [address] [place] [phone] Scanning, Provider 04/19/2024 Orders Only [facility] [address] [place] [address] Scanning, Provider 04/14/2024 Orders Only [facility] [address] [place] [id number] Matt Mathews MD 04/11/2024 Orders Only [facility] Scanning, Provider 04/08/2024 Orders Only [facility] Scanning, Provider from Last 3 Months Immunizations Name Administration Dates Next Due Hep A, Adult 11/25/2001 Influenza, Trivalent, Preser vative Free, Intramuscular 06/29/2012 Influenza, Unspecified 03/16/2023(Deferr ed: Patient Refused),02/02/2023(Deferred: Patient Refused),07/28/2022(Deferred: Patient Refused),03/31/2022(Deferred: Patient Refused),03/15/2022,06/15/2021(Deferre d: Patient Refused),06/15/2021(Deferred: Patient Refused),05/22/2021(Deferred: Patient Refused) Tdap 01/22/2017 Surgical History Surgery Date Site/Laterality Comments APPENDECTOMY CHOLECYSTECTOMY ROTATOR CUFF REPAIR Right THUMB SURGERY 07/31/2021 Right HERNIA REPAIR 06/15/1973 - 06/14/1974 PROSTATE SURGERY 06/15/2017 - 06/14/2018 US GUIDED PARACENTESIS 03/16/2023 N/A Medical History Medical History Date Comments GERD (gastroesophageal reflux disease) Cirrhosis (HCC) Esophageal varices (HCC) SOB (shortness of breath) Pericardial effusion Anemia 08/2021 Cancer (CMS/HCC) (HCC) 2018 Cataract 02/2021 Diabetes mellitus (HCC) 08/2021 Heart disease 07/2021 Hypertension 04/2021 Stroke (HCC) 10/2017 Peptic ulceration 04/2021 Mixed conductive and sensorineural hearing loss 1976 GI (gastrointestinal bleed) 04/2021 Kidney stone 2010 Family History Medical History Relation Name Comments Arthritis Father Brian hairston Hypertension Father Brian hairston Arthritis Mother Naomi hairston Breast cancer Mother Naomi hairston Cancer Mother Naomi hairston Heart attack Mother Naomi amrika Heart disease Mother Naomi hairston Relation Name Status Comments Father Brian hairston Alive Mother Naomi hairston Alive Social History Tobacco Use Types Packs/Day Years [...] on file Legal Sex Male 9:05 AM ASSISTANT SURVEYOR Gender Identity Male 06/09/2023 11:43 AM ASSISTANT SURVEYOR Sexual Orientation Straight 06/09/2023 11 :43 AM ASSISTANT SURVEYOR Obstetrics History Last Filed Vital Signs Vital Sign Reading Time Taken Comments Blood Pressure 94/60 06/23/2024 10:30 AM ASSISTANT SURVEYOR Pulse 80 06/23/2024 10:30 AM ASSISTANT SURVEYOR Temperature 37 ??C (98.6 ??F) 06/23/2024 10:30 AM ASSISTANT SURVEYOR Respiratory Rate 16 06/23/2024 10:30 AM ASSISTANT SURVEYOR Oxygen Saturation 94% 06/23/2024 10:30 AM ASSISTANT SURVEYOR Inhaled Oxygen Concentration - - Weight 68.6 kg (151 lb 3.2 oz) 06/23/2024 10:30 AM ASSISTANT SURVEYOR Height 165.1 cm (5' 5 ) 06/23/2024 10:30 AM ASSISTANT SURVEYOR Body Mass Index 25.16 06/23/2024 10:30 AM ASSISTANT SURVEYOR Plan of Treatment Health Maintenance Due Date Last Done Comments Hepatitis C Screening 1971 Dilated Eye Exam 1971 Foot Exam 1971 Pneumococcal vaccine <65 (1 of 2 - PCV) 1977 Hepatitis B Screening 1989 Regular Well Visit/Exam 18-64 1989 Zoster Vaccine (1 of 2) 2021 Prostate Cancer Screening-PSA 10/19/2022 10/19/2020 Lipid Panel 07/28/2023 07/28/2022, 01/14, 10/19/2020, Additional history exists Albumin Creatinine Ratio, Urine 08/16/2023 Covid-19 Vaccine (2023-2 5 season) 2024 02/27/2021, 02/01/2021 Influenza Vaccine (#1) 2024 03/15/2022, 2012 Depression Screening 03/16/2024 03/16/2023, 10/30/2022, 10/21/2022, Additional history exists Hemoglobin A1C 12/21/2024 06/23/2024, 03/0 08/2022, 10/19/2020 eGFR 06/23/2025 06/23/2024, 12/14, 09/11/2022, Additional history exists DTaP/Tdap/Td Vaccine (2 - Td or Tdap) 01/22/2027 01/22/2017 Colon Cancer Screening-Colonoscopy 03/12/20322021, 04/02/2020 Procedures Procedure Name Priority Date/Time Associated Diagnosis Comments EGD Routine 07/05/2024 1:14 PM ASSISTANT SURVEYOR EGFR Routine 06/23/2024 12:02 PM ASSISTANT SURVEYOR Alcoholic cirrhosis of liver with ascites (CMS/HCC) (HCC) DIFFERENTIAL AUTO Routine 06/23/2024 12: 02 PM ASSISTANT SURVEYOR Alcoholic cirrhosis of liver with ascites (CMS/HCC) (HCC) CBC WITH AUTO DIFFERENTIAL Routine 06/23 12:02 PM ASSISTANT SURVEYOR Alcoholic cirrhosis of liver with ascites (CMS/HCC) (HCC) COMPREHENSIVE METABOLIC PANEL Routine 06/23/2024 12:02 PM ASSISTANT SURVEYOR Alcoholic cirrhosis of liver with ascites (CMS/HCC) (HCC) PROTIME-INR Routine 06/23/2024 12:02 PM ASSISTANT SURVEYOR Alcoholic cirrhosis of liver with ascites (CMS/HCC) (HCC) [id number], TUMOR MARKER Routine 06/23/2024 12:02 PM ASSISTANT SURVEYOR Alcoholic cirrhosis of liver with ascites (CMS/HCC) (HCC) PHOSPHATIDYLETHANOL Routine 06/23/2024 1 2:02 PM ASSISTANT SURVEYOR Alcoholic cirrhosis of liver with ascites (CMS/HCC) (HCC) HEMOGLOBIN A1C Routine 06/23/2024 12:02 PM ASSISTANT SURVEYOR Alcoholic cirrhosis of liver with ascites (CMS/HCC) (HCC) Type 2 diabetes mellitus without complication, with long-term current use of insulin (CMS/HCC) (HCC) SCAN - RADIOLOGY/IMAGING 06/10/2024 EGD Routine 05/20/2024 12:45 PM ASSISTANT SURVEYOR SCAN - RADIOLOGY/IMAGING 05/20/2024 SCAN - RADIOLOGY/IMAGING 05/19/2024 SCAN - RADIOLOGY/IMAGING 05/18/2024 SCAN - RADIOLOGY/IMAGING 05/17/2024 SCAN - RADIOLOGY/IMAGING 05/03/2024 SCAN - RADIOLOGY/IMAGING 04/27/2024 SCAN - RADIOLOGY/IMAGING 04/19/2024 SCAN - RADIOLOGY/IMAGING 04/14/2024 SCAN - LABS 04/11/2024 SCAN - LABS 04/08/2024 ALBUMIN CREATININE RATIO, URINE Routine 08/15/2022 POCT LIPID PANEL Routine 07/28/2022 9:31 AM ASSISTANT SURVEYOR Lipid screening HM COLONOSCOPY Routine 03/12/2022 PSA SCREEN Routine 10/19/2020 10:46 AM CDT Prostate cancer screening from Last 3 Months or Most Recently Relevant to Health Maintenance Results * EGD -[facility] (07/05/2024 1:14 PM ASSISTANT SURVEYOR) Anatomical Region Laterality Modality Other us Historical Provider GI PROCEDURE ORDERABLES F inal Result * Phosphatidylethanol (06/23/2024 12:02 PM ASSISTANT SURVEYOR) PHOSPHATIDYLETHANOL Negative . [facility] Comment: ADDITIONAL INFORMATION This report is intended for use in clinical monitoring and management of patients. ??It is not intended for use in employment-related testing. This test was developed and its performance characteristics determined by [facility] in a manner consistent with CLIA requirements. This test has not been cleared or approved by the U.S. Food and Drug Administration. Test Performed by: [facility] [address] [place] [address] Mandate Retail Service Merchandiser: Smooth Goff Ph.D.; CLIA# [id number] PEth 16:0/18:1 (POPEth)by LC-MS/MS <10 Cutoff: 10 [...] well established Blood 06/23/2024 12:0 2 PM ASSISTANT SURVEYOR 06/23/2024 12:16 PM ASSISTANT SURVEYOR us Elan Hutchinson MD LAB BLOOD ORDERABLES Final Res ult [facility] [address] [facility] [address] [facility] * (ABNORMAL) eGFR (06/23/2024 12:02 PM ASSISTANT SURVEYOR) eGFR 55(L) >=60 mL/min/1. 73 m2 Comment: [...] reviewed 2021. Blood 06/23/2024 12:0 2 PM ASSISTANT SURVEYOR 06/23/2024 12:16 PM ASSISTANT SURVEYOR us Elan Hutchinson MD LAB BLOOD ORDERABLES Final Res ult Performing Organization Address City/State/[facility] Co de Phone Number [facility] [address] [facility]. [place] [address] * Differential, auto (06/23/2024 12:02 PM ASSISTANT SURVEYOR) Neutrophil abs 4.3 1.5 - 6.5 K/cumm Imm gran abs 0.0 0.0 - 0.1 K/cumm [facility] Lymphocyte abs 0.8 0.8 - 3.3 K/cumm [facility] Monocyte abs 0.8 0.2 - 0.8 K/cumm [facility] Eosinophil abs 0.1 0.0 - 0.5 K/cumm [facility] Basophil abs 0.0 0.0 - 0.1 K/cumm [facility] Neutrophil pct 71.3 % [facility] Comment: Interpretive Data Percent cell count reference ranges are not reported, since discordance with absolute values may lead to misinterpretation of CBC data. Current Interpretive Data was last revised on 2017. Imm gran pct 0.5 % [facility] Comment: Interpretive Data Percent cell count reference ranges are not reported, since discordance with absolute values may lead to misinterpretation of CBC data. Current Interpretive Data was last revised on 2017. Lymphocyte pct 13.0 % [facility] Comment: Interpretive Data Percent cell count reference ranges are not reported, since discordance with absolute values may lead to misinterpretation of CBC data. Current Interpretive Data was last revised on 2017. Monocyte pct 12.9 % [facility] Comment: Interpretive Data Percent cell count reference ranges are not reported, since discordance with absolute values may lead to misinterpretation of CBC data. Current Interpretive Data was last revised on 2017. Eosinophil pct 1.8 % [facility] Comment: Interpretive Data Percent cell count reference ranges are not reported, since discordance with absolute values may lead to misinterpretation of CBC data. Current Interpretive Data was last revised on 2017. Basophil pct 0.5 % [facility] Comment: Interpretive Data Percent cell count reference ranges are not reported, since discordance with absolute values may lead to misinterpretation of CBC data. Current Interpretive Data was last revised on 2017. Blood 06/23/2024 12:0 2 PM ASSISTANT SURVEYOR 06/23/2024 12:16 PM ASSISTANT SURVEYOR us Elan Hutchinson MD LAB BLOOD ORDERABLES Final Res ult [facility] [address] [facility]. [place] [address] * (ABNORMAL) CBC with auto differential (06/23/2024 12:02 PM ASSISTANT SURVEYOR) WBC 6.1 3.8 - 9.9 K/cumm Hgb 12.8(L) 13.0 - 17.5 g/dL [facility] Hct 40.8 38.9 - 50.3 % [facility] Plt 99(L) 150 - 400 K/cumm [facility] MPV 10.6 9.1 - 12.3 fL [facility] RBC 4.35 4.30 - 5.80 M/cumm [facility] MCV 93.8 81.3 - 96.4 fL [facility] MCH 29.4 27.1 - 33.3 pg [facility] MCHC 31.4(L) 32.3 - 35.7 g/dL [facility] RDW CV 15.4(H) 11.1 - 14.9 % [facility] RDW SD 53.1(H) 35.7 - 48.1 fL [facility] NRBC abs 0.00 0.00 - 0.01 K/cumm [facility] Blood 06/23/2024 12:0 2 PM ASSISTANT SURVEYOR 06/23/2024 12:16 PM ASSISTANT SURVEYOR us Elan Hutchinson MD LAB BLOOD ORDERABLES Final Res ult [facility] [address] [facility]. Department of Laboratories [place], [place] [id number] * [id number], Tumor Marker (06/23/2024 12:02 PM ASSISTANT SURVEYOR) alpha Fetoprotein <1.8 <=8.3 ng/mL Comment: Interpretive [...] >1 year ?0.0 ? 8.3 ng/ml References Tsuchida Y. et al. ??J. Ped Surg 1978;13:155-156 Jake Brown. et al. Clin Chem Lab Med 2018;57:783-797 Brenden Ellsworth et al. ??Clin Chem 2014;2708-4581. Current interpretive data was last revised 2022. Testing performed by: [facility], [facility], [place]., [address] Blood 06/23/2024 12:0 2 PM ASSISTANT SURVEYOR 06/23/2024 2:22 PM ASSISTANT SURVEYOR Elan Hutchinson MD LAB BLOOD ORDERABLES Final Res t Performing Organization Address [facility] de Phone Number [facility] [address] [facility] [address] [place], [place] [id number] * Protime-INR (06/23/2024 12:02 PM ASSISTANT SURVEYOR) PT 11.6 9.7 - 13.0 sec INR 1.07 0.90 - 1.20 [facility] Comment: Interpretive data Oral anticoagulant therapeutic ranges: Venous thromboembolism prophylaxis or treatment: 2.0-3.0 CARDIOLOGY Standard range: 2.0-3.0 High-intensity range: 2.5-3.5 Refer to indication-specific guidelines for appropriate target ranges for prosthetic heart valve replacement. Current interpretive data was last revised on 2019. Blood 06/23/2024 12:0 2 PM ASSISTANT SURVEYOR 06/23/2024 12:16 PM ASSISTANT SURVEYOR Elan Hutchinson MD LAB BLOOD ORDERABLES Final Res ult Performing Organization Address [facility] de Phone Number [facility] [address] [facility] [address] [place], [place] [id number] * Hemoglobin A1c (06/23/2024 12:02 PM ASSISTANT SURVEYOR) Hgb A1C 5.0 4.0 - 5.6 % Estimated Average Glucose 97 mg/dL [facility] Comment: The ADA recommends reporting an estimated Average Glucose (eAG) with all Hemoglobin A1c results using the equation derived from a study of 507 normal and diabetic adults. ??Minority populations were underrepresented and children were not included. ?? (Diabetes Care 31:0270-2330, 2007). ??The eAG is not equivalent to a fasting glucose. Blood 06/23/2024 12:0 2 PM ASSISTANT SURVEYOR 06/23/2024 12:16 PM ASSISTANT SURVEYOR us Elan Hutchinson MD LAB BLOOD ORDERABLES Final Res ult [facility] [address] [facility]. [place] [address] * (ABNORMAL) Comprehensive metabolic panel (06/23/2024 12:02 PM ASSISTANT SURVEYOR) Sodium 136 135 - 145 mmol/L Potassium, pl 5.2(H) 3.3 - 4.9 mmol/L [facility] Chloride 93(L) 97 - 110 mmol/L [facility] CO2 34(H) 22 - 32 mmol/L [facility] Anion gap 9 2 - 15 mmol/L [facility] BUN 23 6 - 25 mg/dL [facility] Creatinine 1.50(H) 0.80 - 1.30 mg/dL [facility] Glucose 117 70 - 199 mg/dL [facility] Comment: Interpretive Data Fasting glucose >/= 126 [...] 2022. Calcium 9.6 8.5 - 10.3 mg/dL [facility] Bilirubin, total 0.6 0.1 - 1.2 mg/dL [facility] Protein, pl 6.8 6.5 - 8.5 g/dL [facility] Albumin 3.7 3.5 - 5.0 g/dL [facility] Alk phos 197(H) 40 - 130 Units/L [facility] ALT 11 7 - 55 Units/L [facility] AST 40 10 - 50 Units/L [facility] Blood 06/23/2024 12:0 2 PM ASSISTANT SURVEYOR 06/23/2024 12:16 PM ASSISTANT SURVEYOR Elan Hutchinson MD LAB BLOOD ORDERABLES Final Res ult [facility] [address] [facility]. [place] [address] * SCAN - RADIOLOGY/IMAGING (06/10/2024) Anatomical Region Laterality Modality Other Matt Mathews MD Final Res ult * EGD -[facility] (05/20/2024 12:45 PM ASSISTANT SURVEYOR) Anatomical Region Laterality Modality Other Enrique Felix [...] * POCT lipid panel (07/28/2022 9:31 AM ASSISTANT SURVEYOR) Cholesterol, POC 231 mg/dL HDL, POC 42 mg/dL Triglycerides, POC 112 mg/dL LDL Cholesterol POC 168 mg/dL Chol/HDL Ratio, POC 4.0 Non-HDL Cholesterol, POC 190 mg/dL Cholesterol Total, POC 231 mg/dL Capillary blood 07/28/2022 9:31 AM ASSISTANT SURVEYOR Anais Chowdary MD POINT OF CARE TEST O RDERABLES Edited Result - Final * [facility] COLONOSCOPY (03/12/2022) Enrique Felix MD HEALTH MAINTENANCE Final Result * PSA screen (10/19/2020 10:46 AM CDT) PSA 0.2 < OR = 4.0 ng/mL [facility] Comment: The total PSA value from this [...] 10:46 AM CDT 10/19/2020 10:47 AM CDT [facility] - 10/23/2020 1:27 PM CDT FASTING:YES FASTING: YES [facility] BLOOD ORDERABLES Final Result MARIA A [facility] [id number] [place] [id number] from Last 3 Months or Most Recently Relevant to Health Maintenance Insurance [facility] MEDICARE IDPA IDVT MEDICARE Care Teams Urology Physician Relationship Specialty Start Date End Date Matt Mathews MD [facility] [place] [address] PCP - General Family Medicine 03/31/22 Dwight Nascimento MD Consulting Physician Internal Medicine 09/20/21
== END 2024-07-05 12:15 | disposition home or self-care (01) ==
PROVIDERS: PCP Hospitalist; Visit Provider Internal Medicine Gastroenterology
PROC: 0DJ08ZZ Inspection of Upper Intestinal Tract, Via Natural or Artificial Opening Endoscopic (ICD-10-PCS; CPT 43235; principal; 2024-07-05 12:00)
DX: I85.00 Esophageal varices without bleeding (principal); K74.60 Unspecified cirrhosis of liver; R18.8 Other ascites; K29.70 Gastritis, unspecified, without bleeding; K21.9 Gastro-esophageal reflux disease without esophagitis; I11.0 Hypertensive heart disease with heart failure; I50.30 Unspecified diastolic (congestive) heart failure; D50.9 Iron deficiency anemia, unspecified; E11.9 Type 2 diabetes mellitus without complications; K76.6 Portal hypertension; K31.89 Other diseases of stomach and duodenum; F43.10 Post-traumatic stress disorder, unspecified; I27.20 Pulmonary hypertension, unspecified; M19.90 Unspecified osteoarthritis, unspecified site; F17.210 Nicotine dependence, cigarettes, uncomplicated; Z79.4 Long term (current) use of insulin; Z79.52 Long term (current) use of systemic steroids; Z79.891 Long term (current) use of opiate analgesic; Z98.890 Other specified postprocedural states; Z90.49 Acquired absence of other specified parts of digestive tract; Z85.6 Personal history of leukemia; Z86.711 Personal history of pulmonary embolism; Z87.442 Personal history of urinary calculi; Z85.46 Personal history of malignant neoplasm of prostate; Z92.3 Personal history of irradiation; Z86.718 Personal history of other venous thrombosis and embolism; Z87.19 Personal history of other diseases of the digestive system; Z86.79 Personal history of other diseases of the circulatory system; Z80.3 Family history of malignant neoplasm of breast; Z82.49 Family history of ischemic heart disease and other diseases of the circulatory system
CPT/HCPCS: 43235; 82948; J2003; J2704; J7120

== ENCOUNTER 2024-07-29 20:10 | Emergency (ER) | payer MEDICARE, MEDICAID, SELFPAY ==
--- OUTSIDE RECORDS SUMMARY | 2024-07-29 20:14 | XMS_ITS | Patient Health Summary ---
Author Organization [facility] Address [address] [place] [place] [address] Care Team Providers Care Construction Controller Name Role Phone Fidel Camejo MD Primary Care Provider [phone] [facility],non-owned Affiliates and Associated Physician Practices is amultiple site organization consisting of ambulatory clinics and hospital sitesin [place], [place], [place] and [place]. This disclosure is being madepursuant to the Care Everywhere program and may not contain all information available regarding this patient. Last updated 18.[facility] Allergies No known active allergies Medications * [...] 89 11/01/2020 11:37 AM CDT Temperature 36.6 C (97.9 F) 07/12/2020 10:23 AM [employer] Respiratory Rate 18 11/01/2020 11:37 AM CDT Oxygen Saturation 100% 11/01/2020 11:37 AM CDT Inhaled Oxygen Concentration - - Weight 81.2 kg (179 lb) 11/01/2020 11:37 AM CDT Height 165.1 cm (5' 5 ) 07/12/2020 10:23 AM [employer] Body Mass Index 29.79 07/12/2020 10:23 AM [employer] Procedures * PT-INR SLH(Performed 07/12/2020) Performed for [...] Abnormal finding on imaging of liver * RROXO-3-FOYMDSRAIFR BLOOD PHENOTYPING PANEL(Performed 04/04/2020) Performed for RUQ [...] Results * PT-INR [facility] (07/12/2020 12:54 PM [employer]) Only the most recent of3 resultswithin the time period is included. PT 13.5 12.1 - 14.8 Seconds 07/12/2020 1:34 PM [employer] [facility] INR 1.1 See Comment 07/12/2020 1:34 PM [employer] [facility] Comment:The suggested therap eutic range for standard coumadin (warfarin) therapy is an INR of 2.0-3.0. For high-risk patients (Mechanical Mitral Valve Prosthesis, etc.), the suggested prophylactic therapeutic range is an INR of 2.5-3.5. Blood BLOOD SPECIMEN / Unknown Lab Venipuncture / Unknown 07/12/2020 12:54 PM [employer] 07/12/2020 1:24 PM [employer] Billie Medrano MD LAB - COAGULATION OR DERABLES [facility] [address] [place] [address], [facility] [phone] * CELIAC DISEASE PROFILE W RFLX (07/12/2020 12:54 PM [employer]) Endomysial Antibody IgA Negative Negative 07/13/2020 6:07 PM [employer] [facility] ([facility]) TTG Antibody IgA <2 0 - 3 U/mL 07/13/19 21 6:07 PM [facility] ([facility]) Comment: Negative 0 - 3 Weak Positive 4 - 10 Positive >10 Tissue Transglutaminase (tTG) has been identified as the endomysial antigen. Studies have demonstr- ated that endomysial IgA antibodies have over 99% specificity for gluten sensitive enteropathy. IgA Quantitative 371 90 - 386 mg/dL 07/13/2020 6:07 PM [facility] ([facility]) Blood BLOOD SPECIMEN / Unknown Lab Venipuncture / Unknown 07/12/2020 12:54 PM [employer] 07/12/2020 1:39 PM [employer] Narrative [facility] ([facility]) - 07/13/2020 6:07 PM [employer] Performed at: [facility] [address] [id number] Straight Truck Driver: Lucho Tyler PhD, Phone: [phone] Billie Medrano MD LAB - CHEMISTRY CHERIE CABRALES [facility] ([facility]) [address] [place] [address], [facility] * (ABNORMAL) CBC WITH DIFFERENTIAL (07/12/2020 12:54 PM [employer]) Only the most recent of5 resultswithin the time period is included. WBC 4.1 3.5 - 10.5 10 3/uL 07/12/2020 1:35 PM [facility] RBC 5.06 4.30 - 5.70 10 6/uL 07/12/2020 1:35 PM [facility] Hemoglobin 15.8 13.5 - 17.5 g/dL 07/12/2020 1:35 PM [facility] Hematocrit 48.1 39.0 - 50.0 % 07/12/2020 1:35 PM [facility] MCV 95.1 81.0 - 97.0 fL 07/12/2020 1:35 PM [facility] MCH 31.2 28.0 - 34.0 pg 07/12/2020 1:35 PM [facility] MCHC 32.8 32.0 - 36.0 g/dL 07/12/2020 1:35 PM [facility] Platelet Count 105(L) 150 - 400 10 3/uL 07/12/2020 1:35 PM [facility] RDW-SD 46.6 36.0 - 50.0 fL 07/12/2020 1:35 PM [facility] RDW-CV 13.2 11.2 - 14.8 % 07/12/2020 1:35 PM [facility] MPV 10.3 9.3 - 12.8 fL 07/12/2020 1:35 PM [facility] nRBC Absolute 0.00 0 10 3/uL 07/12/2020 1:35 PM [facility] nRBC Auto 0.0 0 /100 WBC 07/12/2020 1:35 PM [facility] Neutrophils % 63.0 35.0 - 70.0 % 07/12/2020 1:35 PM [facility] Lymphocytes % 25.4 19.7 - 55.1 % 07/12/2020 1:35 PM [facility] Monocytes % 9.6 3.0 - 15.0 % 07/12/2020 1:35 PM [facility] Eosinophils % 1.0 0.0 - 6.0 % 07/12/2020 1:35 PM [facility] Basophil % 0.5 0.0 - 1.5 % 07/12/2020 1:35 PM [facility] Neutrophils Absolute 2.6 1.6 - 7.0 10 3/uL 07/12/2020 1:35 PM [facility] Lymphocyte Absolute 1.0 0.8 - 2.9 10 3/uL 07/12/2020 1:35 PM [facility] Monocytes Absolute 0.39 0.14 - 0.66 10 3/uL 07/12/2020 1:35 PM [facility] Eosinophils Absolute 0.04 0.00 - 0.45 10 3/uL 07/12/2020 1:35 PM [facility] Basophils Absolute 0.02 0.00 - 0.06 10 3/uL 07/12/2020 1:35 PM [facility] Immature Granulocytes % 0.5 0.0 - 1.0 % 07/12/2020 1:35 PM [facility] Blood BLOOD SPECIMEN / Unknown Lab Venipuncture / Unknown 07/12/2020 12:54 PM [employer] 07/12/2020 1:20 PM [employer] Billie Medrano MD LAB - HEMATOLOGY ORD ERABLES Performing Organization Address City/State/[facility] Co de Phone Number [facility] [address] [place] [phone], [facility] [phone] * (ABNORMAL) COMPREHENSIVE METABOLIC PANEL (07/12/2020 12:54 PM [employer]) Only the most recent of3 resultswithin the time period is included. BUN 10 7 - 26 mg/dL 07/12/2020 2:12 PM [facility] Creatinine 0.6 0.6 - 1.2 mg/dL 07/12/2020 2:12 PM [facility] Sodium 138 136 - 145 mmol/L 07/12/2020 2:12 PM [facility] Potassium 4.2 3.5 - 4.5 mmol/L 07/12/2020 2:12 PM [facility] Chloride 103 98 - 107 mmol/L 07/12/2020 2:12 PM [facility] CO2 26 22 - 29 mmol/L 07/12/2020 2:12 PM [facility] Glucose 133(H) 70 - 115 mg/dL 07/12/2020 2:12 PM [facility] Calcium 9.1 8.4 - 10.2 mg/dL 07/12/2020 2:12 PM [facility] Protein Total 6.9 6.0 - 8.3 g/dL 07/12/2020 2:12 PM [facility] Albumin 3.8 3.4 - 5.0 g/dL 07/12/2020 2:12 PM [facility] Bilirubin Total 1.0 0.2 - 1.2 mg/dL 07/12/2020 2:12 PM [facility] Alkaline Phosphatase 178(H) 40 - 150 Units/L 07/12/2020 2:12 PM [facility] ALT 18 0 - 55 Units/L 07/12/2020 2:12 PM [facility] AST 46(H) 5 - 34 Units/L 07/12/2020 2:12 PM [facility] Anion Gap 13 8 - 18 07/12/2020 2:12 PM [facility] BUN/Creatinine Ratio 17 7 - 23 07/12/2020 2:12 PM [facility] Osmolality Calculated 287 270 - 300 mOsm/kg 07/12/2020 2:12 PM [facility] Albumin/Globulin Ratio 1.2 1.1 - 2.3 07/12/2020 2:12 PM [facility] eGFR >60 >60 mL/min/1.7 3 m2 07/12/2020 2:12 PM [facility] Blood BLOOD SPECIMEN / Unknown Lab Venipuncture / Unknown 07/12/2020 12:54 PM [employer] 07/12/2020 1:20 PM [facility] Billie Medrano MD LAB - CHEMISTRY ORDRya CABRALES [facility] [address] [place] [address], [place] [phone] * TSH (07/12/2020 12:54 PM [employer]) TSH 1.171 0.350 - 4.940 uIU/mL 07/12/2020 2:08 PM [employer] [facility] Blood BLOOD SPECIMEN / Unknown Lab Venipuncture / Unknown 07/12/2020 12:54 PM [employer] 07/12/2020 1:20 PM [employer] Billie Medrano MD LAB - CHEMISTRY CHERIE CABRALES Performing Organization Address City/[facility]/ZIP Co de Phone Number [address] [address], [place] [phone] * MRI ABDOMEN W MRCP WWO CONT W3D (06/02/2020 11:31 AM [employer]) Anatomical Region Laterality Modality Abdomen Magnetic Resonan ce 06/04/2020 7:14 AM [employer] Impressions 06/04/2020 10:34 AM [employer] IMPRESSION: 1.Cirrhosis and mild hepatic steatosis. 2. 1.8 cm arterially enhancing observation without washout in segment 5 (LR-3). Report drafted by Toby Alexander M.D. (resident) I, Dr. AV HOUSE M.D. have personally reviewed and interpreted this examination/study. This report was electronically signed by AV HOUSE M.D. on 06/04/2020 10:34 AM . Narrative 06/04/2020 10:34 AM [employer] EXAMINATION: 1. Magnetic resonance imaging (MRI) of [...] CREATININE - POCT INTERFACED (06/02/2020 10:43 AM [employer]) [facility] Creatinine POCT 0.85 0.30 - 1.30 mg/dL 06/02/2020 2:38 PM [employer] [facility] eGFR >60 >60 mL/min/1.7 3 m2 06/02/2020 2:38 PM [employer] [facility] Blood BLOOD SPECIMEN / Unknown 06/02/2020 10:43 AM [employer] 06/02/2020 2:38 PM [employer] Billie Medrano MD LAB - POINT OF CARE ORDERABLES Performing Organization Address City/State/[facility] Co de Phone Number [facility] [address] [address], [facility] [phone] * PHOSPHATIDYLETHANOL (PETH) (04/04/2020 1:28 PM CDT) [facility] PEth 16:0/18.1 (POPEth) 224 ng/mL 04/07/2020 10:54 AM CDT [employer] ([facility]) Comment: INTERPRETIVE INFORMATION:Phosphatidylethanol (PEth), Whole Blood Phosphatidylethanol (PEth) homologues Result Interpretation PEth 16:0/18:1 (POPEth) Less than 10 ng/mL............Not detected Less than 20 ng/mL............Abstinence or light alcohol consumption 20 - 200 ng/mL................Moderate alcohol consumption Greater than 200 ng/mL........Heavy alcohol consumption or chronic alcohol use PEth 16:0/18:2 (PLPEth).......Reference ranges are not well established. (Reference: Blanquita Bhatti and Divya Cunha 2018 [...] Research). Test developed and characteristics determined by [employer]. See Compliance Statement B: [email or web address] PEth 16:0/18.2 (PLPEth) 203 ng/mL 04/07/2020 10:54 AM CDT [employer] ([facility]) Comment: Performed By: [employer] [address] [place] [address] Stock Car Driver: Jocelynn Salomon MD Blood BLOOD SPECIMEN / Unknown Lab Venipuncture / Unknown 04/04/2020 1:28 PM CDT 04/04/2020 1:59 PM CDT Billie Medrano MD LAB - CHEMISTRY CHERIE CABRALES [employer] ([facility]) [address] [place] [address], [facility] * SMOOTH MUSCLE ANTIBODY W REFLEX TITER (04/04/2020 1:28 PM CDT) F-Actin Antibody IgG 9 0 - 19 Units 04/06/2020 7:27 PM CDT [facility] [employer] ([facility]) Comment: If F-Actin (Smooth Muscle) Antibody, IgG is negative, the Smooth Muscle Antibody titer by IFA is not performed. REFERENCE INTERVAL: F-Actin (Smooth Muscle) Antibody, IgG by GAYLE 19 Units or less ....... Negative 20 - 30 Units .......... Weak Positive-Suggest repeat testing in two to three weeks with fresh specimen. 31 Units or greater..... Positive-Suggestive of autoimmune hepatitis type 1 or chronic active hepatitis. F-actin IgG antibodies [...] suspicion for AIH is strong. Performed By: [employer] [address] [place] [address] Stock Car Driver: Jocelynn Salomon MD Blood BLOOD SPECIMEN / Unknown Lab Venipuncture / Unknown 04/04/2020 1:28 PM CDT 04/04/2020 2:36 PM CDT Billie Medrano MD LAB - SEROLOGY ORDER ELIOT [facility]) [address] * MITOCHONDRIAL ANTIBODY SCREEN (04/04/2020 1:28 PM CDT) Mitochondrial M2 Antibody 6.7 0.0 - 24.9 Units 04/06/2020 7:28 PM CDT [facility] [employer] ([facility]) Comment: REFERENCE INTERVAL: Mitochondrial (M2) Antibody, IgG 20.0 Units or less ......... Negative 20.1 - 24.9 Units........... Equivocal 25.0 Units or greater....... Positive Anti-mitochondrial antibodies (AMA) [...] does not rule out PBC. Performed By: [employer] [address] [place] [address] Stock Car Driver: Jocelynn Salomon MD Blood BLOOD SPECIMEN / Unknown Lab Venipuncture / Unknown 04/04/2020 1:28 PM CDT 04/04/2020 2:37 PM CDT Billie Medrano MD LAB - CHEMISTRY CHERIE CABRALES Performing Organization Address [facility] de Phone Number [facility]) [address] [place] [address] * OHDEE-8-FVTIRIJTCWZ BLOOD PHENOTYPING PANEL (04/04/2020 1:28 PM CDT) Ieqkc-1-Vzgxnacjzz n Phenotype M1M1 04/07/2020 1:43 PM CDT [employer] ([facility]) Comment: The patient appears to have a normal phenotype. All M alleles (including subtypes M1, M2, and M3) produce normal serum concentrations of wlqwp-7-hxcqxzyz inhibitor and are not associated with clinical disease. Caution in interpretation is advised if the patient has been transfused within the previous 21 days. Performed By: [employer] [address] [place] [address] Stock Car Driver: Jocelynn Salomon MD Xtehn-0-Oacffgyoun n 175 90 - 200 mg/dL 04/07/2020 1:43 PM CDT [employer] ([facility]) Comment:To convert to umol/L , multiply mg/dL by 0.185 Blood BLOOD SPECIMEN / Unknown Lab Venipuncture / Unknown 04/04/2020 1:28 PM CDT 04/04/2020 2:36 PM CDT Billie Medrano MD LAB - CHEMISTRY CHERIE CABRALES Performing Organization Address [facility] Co de Phone Number [employer] ([facility]) [address] * HEMOCHROMATOSIS MUTATION PANEL (04/04/2020 1:28 PM CDT) HFE C282Y Mutation Negative 2019 3:56 PM CDT [facility] ([facility]) HFE Specimen Source Whole Blood 04/09/2020 3:56 PM CDT [facility] ([facility]) HFE H63D Mutation Negative 020 3:56 PM CDT [facility] ([facility]) HFE S65C Mutation Negative 3:56 PM CDT [facility] ([facility]) Interpretation HFE Mutation See Note 04/09/2020 3:56 PM CDT [facility] ([facility]) Comment: Indication for testing: Carrier screening or [...] variations. Test developed and characteristics determined by [employer]. See Compliance Statement C: [employer]/ Performed by [employer], [address] [place], [place] [id number] [email or web address], Jocelynn Salomon MD, Lab. Director Blood BLOOD SPECIMEN / Unknown Lab Venipuncture / Unknown 04/04/2020 1:28 PM CDT 04/04/2020 1:59 PM CDT Billie Medrano MD LAB - CHEMISTRY CHERIE CABRALES [employer] [facility]) [address] [place] [address] * MEL BLOOD SCREEN W/REFLEX TITER (04/04/2020 1:28 PM CDT) MEL IgG None Detected None Detected 04/06/2020 5:16 PM CDT [employer] ([facility]) Comment: If suspicion of connective tissue disease is strong and MEL EIA is negative, consider testing for MEL by IFA ([id number]). INTERPRETIVE INFORMATION: Anti-Nuclear Antibodies (MEL), IgG by GAYLE Antinuclear Antibodies (MEL), IgG by GAYLE: MEL specimens are screened using enzyme-linked immunosorbent assay (GAYLE) methodology. All GAYLE results reported as Detected are further tested by indirect fluorescent assay (IFA) using HEp-2 substrate with an IgG-specific conjugate. The MEL GAYLE screen is designed to detect antibodies against dsDNA, histones, SS-A (Ro), SS-B (La), Cunha, Cunha/INDUSTRIAL GAS FITTER HELPER, Scl-70, Shellie-1, centromeric proteins, other antigens extracted from the HEp-2 cell nucleus. MEL GAYLE assays have been reported to have lower sensitivities than MEL IFA for systemic autoimmune rheumatic diseases (SARD). Negative results do not necessarily rule out SARD. Performed By: [employer] [address] [place] [address] Stock Car Driver: Jocelynn Salomon MD Blood BLOOD SPECIMEN / Unknown Lab Venipuncture / Unknown 04/04/2020 1:28 PM CDT 04/04/2020 2:36 PM CDT Billie Medrano MD LAB - CHEMISTRY CHERIE CABRALES [facility] ([facility]) [address] [place] [address], [facility] * TRANSFERRIN (04/04/2020 1:28 PM CDT) Transferrin 176 174 - 382 mg/dL 04/04/2020 3:05 PM CDT [facility] Transferrin Saturation % 40 16 - 50 % 04/04/2020 3:05 PM CDT [facility] Blood BLOOD SPECIMEN / Unknown Lab Venipuncture / Unknown 04/04/2020 1:28 PM CDT 04/04/2020 2:36 PM CDT Billie Medrano MD LAB - CHEMISTRY CHERIE CABRALES Performing Organization Address City/[facility]/ZIP Co de Phone Number [address] [address], [facility] [phone] * CERULOPLASMIN (04/04/2020 1:28 PM CDT) Ceruloplasmin 32 20 - 60 mg/dL 04/04/2020 3:06 PM CDT [facility] Blood BLOOD SPECIMEN / Unknown Lab Venipuncture / Unknown 04/04/2020 1:28 PM CDT 04/04/2020 2:36 PM CDT Billie Medrano MD LAB - CHEMISTRY CHERIE CABRALES Performing Organization Address City/[facility]/ZIP Co de Phone Number [address] [address], [place] [phone] * ALPHA FETOPROTEIN BLOOD TUMOR MARKER (04/04/2020 1:28 PM CDT) Alpha-Fetoprote in Tumor Marker 4.6 <=8.3 ng/mL 04/04/2020 2:42 PM CDT [facility] Comment: AFP values will vary depending on testing procedure used. Results are not comparable across different methods. AFP values obtained by [facility] using an Castaneda Alinity Immunoassay. Blood BLOOD SPECIMEN / Unknown Lab Venipuncture / Unknown 04/04/2020 1:28 PM CDT 04/04/2020 1:59 PM CDT Billie Medrano MD LAB - CHEMISTRY CHERIE CABRALES [facility] [address] [place] [address], [facility] [phone] * (ABNORMAL) CBC W/O DIFFERENTIAL (04/04/2020 1:28 PM CDT) WBC 5.5 3.5 - 10.5 10 3/uL 04/04/2020 2:19 PM CDT [facility] RBC 3.98(L) 4.30 - 5.70 10 6/uL 04/04/2020 2:19 PM T [facility] Hemoglobin 13.4(L) 13.5 - 17.5 g/dL 04/04/2020 2:19 PM T [facility] Hematocrit 40.2 39.0 - 50.0 % 04/04/2020 2:19 PM T [facility] MCV 101.0(H) 81.0 - 97.0 fL 04/04/2020 2:19 PM CDT [facility] MCH 33.7 28.0 - 34.0 pg 04/04/2020 2:19 PM T [facility] MCHC 33.3 32.0 - 36.0 g/dL 04/04/2020 2:19 PM T [facility] Platelet Count 124(L) 150 - 400 10 3/uL 04/04/2020 2:19 PM T [facility] RDW-SD 50.4(H) 36.0 - 50.0 fL 04/04/2020 2:19 PM T [facility] RDW-CV 13.4 11.2 - 14.8 % 04/04/2020 2:19 PM T [facility] MPV 10.5 9.3 - 12.8 fL 04/04/2020 2:19 PM T [facility] nRBC Absolute 0.00 0 10 3/uL 04/04/2020 2:19 PM T [facility] nRBC Auto 0.0 0 /100 WBC 04/04/2020 2:19 PM CDT [facility] Blood BLOOD SPECIMEN / Unknown Lab Venipuncture / Unknown 04/04/2020 1:28 PM CDT 04/04/2020 1:59 PM CDT Billie Medrano MD LAB - HEMATOLOGY ORD ERABLES [address] [address], [facility] [phone] * IRON BLOOD (04/04/2020 1:28 PM CDT) [facility] Iron 89 50 - 175 mcg/dL 04/04/2020 3:05 PM CDT [facility] Blood BLOOD SPECIMEN / Unknown Lab Venipuncture / Unknown 04/04/2020 1:28 PM CDT 04/04/2020 2:36 PM CDT Billie Medrano MD LAB - CHEMISTRY ORDE RABLES Performing Organization Address City/[facility]/ZIP Co de Phone Number [address] [address], [facility] [phone] * HEPATITIS B SURFACE ANTIBODY (04/04/2020 1:28 PM CDT) [facility] Hepatitis B Virus Surface Antibody Non-react cathi Non-react cathi 04/04/2020 3:23 PM CDT [facility] Comment: < 8 mIU/mL Hepatitis B surface Antibody (HBsAb). Nonreactive for HBsAb - individual is considered not immune to Hepatitis B Virus infection. Hepatitis B Surface Antibody Quantitative 4.7 <8.0 mIU/mL 04/04/2020 3:23 PM CDT [facility] Comment: Hepatitis B Surface Antibody Numeric Result Interpretation: Nonreactive: <8.0 mIU/mL Indeterminate: 8.0 - 12.0 mIU/mL Reactive: >12.0 mIU/mL Blood BLOOD SPECIMEN / Unknown Lab Venipuncture / Unknown 04/04/2020 1:28 PM CDT 04/04/2020 2:36 PM CDT Billie Medrano MD LAB - CHEMISTRY CHERIE CABRALES Performing Organization Address [facility]/ZIP Co de Phone Number [facility] [address] [place] [phone], [place] [phone] * HEPATITIS B CORE ANTIBODY (04/04/2020 1:28 PM CDT) HBc Antibody Total Non-reacti ve Non-reacti ve 04/04/2020 3:27 PM CDT [facility] Blood BLOOD SPECIMEN / Unknown Lab Venipuncture / Unknown 04/04/2020 1:28 PM CDT 04/04/2020 2:36 PM CDT Billie Medrano MD LAB - CHEMISTRY CHERIE CABRALES Performing Organization Address [facility]/ZIP Co de Phone Number [facility] [address] [place] [phone], [place] [phone] * HEPATITIS B SURFACE ANTIGEN W RFLX CONFIRMATION (04/04/2020 1:28 PM CDT) Hepatitis B Virus Surface Antigen Non-reacti ve Non-reacti ve 04/04/2020 3:27 PM CDT [facility] Blood BLOOD SPECIMEN / Unknown Lab Venipuncture / Unknown 04/04/2020 1:28 PM CDT 04/04/2020 2:36 PM CDT Billie Medrano MD LAB - CHEMISTRY CHERIE CABRALES Performing Organization Address City/[facility]/ZIP Co de Phone Number [address] [address], [place] [phone] * HEPATITIS C ANTIBODY (04/04/2020 1:28 PM CDT) Hepatitis C Antibody Non-react cathi Non-reac tive 04/04/2020 3:27 PM CDT [facility] Comment:Hepatitis C Antibody screen indicates no [...] Medrano MD LAB - CHEMISTRY CHERIE CABRALES [facility]ORY [facility] [address] [place] [address], [place] [phone] * (ABNORMAL) HEPATITIS A ANTIBODY (04/04/2020 1:28 PM CDT) Hepatitis A Virus Antibody Total Positive( A) Negative 04/06/2020 8:44 AM CDT [employer] ([facility]) Comment: The positive anti-HAV is consistent with recent or remote Hepatitis A infection or antibody response to HAV vaccination. False positive anti-HAV can occur. Performed by [employer], [address] [place] [address] [email or web address], Jocelynn Salomon MD, Lab. Director Blood BLOOD SPECIMEN / Unknown Lab Venipuncture / Unknown 04/04/2020 1:28 PM CDT 04/04/2020 2:36 PM CDT Billie Medrano MD LAB - CHEMISTRY CHERIE CABRALES Performing Organization Address City/[facility]/ZIP Co de Phone Number [facility] [employer] ([facility]) [address] [place] [address], [facility] * (ABNORMAL) FERRITIN (04/04/2020 1:28 PM CDT) Pathologist [facility] Ferritin 2,699(H) 22 - 275 ng/mL 04/04/2020 4:03 PM CDT [facility] Comment:Result obtained by [employer]. Blood BLOOD SPECIMEN / Unknown Lab Venipuncture / Unknown 04/04/2020 1:28 PM CDT 04/04/2020 2:36 PM CDT Billie Medrano MD LAB - CHEMISTRY CHERIE CABRALES [facility] [address] [place] [address], [place] [phone] * CT ABDOMEN PELVIS WO CONTRAST (11/17/2018 [...] MD on 11/17/2018 at 4:07 PM Margarita Martinez Moses PIN BALL MACHINE MECHANIC-PROFILE GRINDER CT ORDERABLES * (ABNORMAL) GLUCOSE - POINT OF CARE (11/17/2018 12:18 PM CDT) Only the most recent of2 resultswithin the time period is included. Glucose WB/POC 121(H) 70 - 106 mg/dL 11/17/2018 4:17 PM CDT [facility] Specimen Type Arterial/C apillary 11/17/2018 4:17 PM CDT [facility] Blood BLOOD SPECIMEN / Unknown 11/17/2018 12:18 PM CDT 11/17/2018 4:17 PM CDT Vic Valenzuela MD LAB - POINT OF CARE ORDERABLES Performing Organization Address City/State/[facility] Co de Phone Number [facility] [address] [place] [address] * US SCROTUM W DOPPLER (11/17/2018 10:52 [...] Note Tee Medina II, MD - 11/16/2018 [facility] [address] [place] [address] Lower Extremity Venous Ultrasound Report Pat.Name: MATT NICOLE.ID: [id number] .Date: 11/16/2018 Exam Time: 10:38:00 AM Study Type:LE Venous Age: 7 1970,48Y Sex: MALE Sonogrphr: [place] Varner RVT Pat. Stat.:Inpatient Room: 8 CPT - 4: 05924 Reason for Study: Pain -Leg, left Procedures: Lower Extremity Venous - Bilateral Visit ID: [id number] ++++++++++++++++++++++++++++++++++++ SUMMARY: ++++++++++++++++++++++++++++++++++++ No evidence of deep [...] proximal compression. Signed 11/16/2018 03:11 PM Tee (OLIVIA Medina II MD, RVT Margarita Lopes PIN BALL MACHINE MECHANIC-PROFILE GRINDER VASCULAR LAB OR DERABLES * (ABNORMAL) HEMOGLOBIN A1C (11/16/2018 5:16 AM CDT) Only the most recent of2 resultswithin the time period is included. Hemoglobin A1c 6.6(H) 4.0 - 6.1 % 11/16/2018 6:43 AM CDT [facility] Estimated Average Glucose 143 mg/dL 11/16/2018 6:43 AM [facility] Blood BLOOD SPECIMEN / Unknown Lab Venipuncture / Unknown 11/16/2018 5:16 AM CDT 11/16/2018 5:23 AM CDT [facility] LABORATORY - 11/16/2018 6:43 AM CDT Attention clinician: Reference Range has changed. Iveth Beck MD LAB - CHEMISTRY ORD ERABLES [facility] [address] [facility] [place] [address] * (ABNORMAL) BASIC METABOLIC PANEL (CALCIUM TOTAL) (11/16/2018 5:16 AM CDT) Only the most recent of3 resultswithin the time period is included. Glucose 141(H) 74 - 106 mg/dL 11/16/2018 5:47 AM [facility] Sodium 137 136 - 145 mmol/L 11/16/2018 5:47 AM [facility] Potassium 4.4 3.5 - 5.1 mmol/L 11/16/2018 5:47 AM [facility] Chloride 103 98 - 107 mmol/L 11/16/2018 5:47 AM [facility] CO2 26 23 - 31 mmol/L 11/16/2018 5:47 AM [facility] Calcium 8.9 8.4 - 10.2 mg/dL 11/16/2018 5:47 AM [facility] Anion Gap 8 8 - 16 mmol/L 11/16/2018 5:47 AM [facility] BUN 19 8.9 - 20.6 mg/dL 11/16/2018 5:47 AM [facility] Creatinine 0.84 0.73 - 1.18 mg/dL 11/16/2018 5:47 AM [facility] eGFR by MDRD >60 >60 mL/min/1.7 3m2 11/16/2018 5:47 AM [facility] eGFR by MDRD >60 >60 mL/min/1.7 3m2 11/16/2018 5:47 AM [facility] Blood BLOOD SPECIMEN / Unknown Lab Venipuncture / Unknown 11/16/2018 5:16 AM CDT 11/16/2018 5:23 AM CDT Narrative [facility] - 11/16/2018 5:47 AM CDT Attention clinician: BUN Reference Range has changed. Matt Nicholson MD LAB - CHEMISTRY ORDE KERON Performing Organization Address [facility]/ZIP Co de Phone Number [facility] [address] [place] [address] * MAGNESIUM BLOOD (11/16/2018 5:16 AM CDT) Only the most recent of2 resultswithin the time period is included. Magnesium 2.5 1.6 - 2.6 mg/dL 11/16/2018 9:26 AM CDT [facility] Blood BLOOD SPECIMEN / Unknown Lab Venipuncture / Unknown 11/16/2018 5:16 AM CDT 11/16/2018 5:23 AM CDT Margarita Lopes PIN BALL MACHINE MECHANIC-PROFILE GRINDER LAB - CHEMISTRY ORDERABLES Performing Organization Address [facility] Co de Phone Number [facility] [address] [place] [address] * CT ABDOMEN AND PELVIS WITH IV [...] Gabriel MD on 11/16/2018 at 8:10 AM Matt Nicholson MD CT ORDERABLES * (ABNORMAL) URINALYSIS REFLEX MICROSCOPIC REFLEX CULTURE (11/15/2018 11:41 PM CDT) Only the most recent of2 resultswithin the time period is included. Color UA Yellow Straw, Yellow 11/15/2018 11:49 PM [facility] Clarity UA Clear Clear 11/15/2018 11:49 PM [facility] Glucose UA 3+(A) Negative 11/15/2018 11:49 PM [facility] Bilirubin UA Negative Negative 11/15/2018 11:49 PM [facility] Ketone UA Negative Negative 11/15/2018 11:49 PM [facility] Specific Armstrong UA 1.012 1.005 - 1.030 11/15/2018 11:49 PM [facility] Blood UA Negative Negative 11/15/2018 11:49 PM [facility] pH UA 5.0 5.0 - 8.0 pH 11/15/2018 11:49 PM [facility] Protein UA Negative Negative 11/15/2018 11:49 PM [facility] Urobilinogen UA Negative Negative mg/dL 11/15/2018 11:49 PM [facility] Nitrite UA Negative Negative 11/15/2018 11:49 PM [facility] Leukocyte UA Negative Negative 11/15/2018 11:49 PM [facility] Urine Microscopy Urine microscopy not indicated 11/15/2018 11:49 PM [facility] Reflex Status Culture not indicated 11/15/2018 11:49 PM [facility] Urine URINE SPECIMEN OBTAINED BY CLEAN CATCH PROCEDURE / Unknown Collection / Unknown 11/15/2018 11:41 PM CDT 11/15/2018 11:43 PM CDT Narrative [facility] - 11/15/2018 11:49 PM CDT Matt Nicholson MD LAB - URINALYSIS ORD ERABLES Performing Organization Address [facility]/ZIP Co de Phone Number [facility] [address] [place] [address] * ERYTHROCYTE SEDIMENTATION RATE (11/15/2018 11:23 PM CDT) Erythrocyte Sedimentation Rate Automated 4 0 - 15 MM/HR 11/16/2018 1:59 AM CDT [facility] Blood BLOOD SPECIMEN / Unknown Venipuncture / Unknown 11/15/2018 11:23 PM CDT 11/15/2018 11:35 PM CDT Matt Nicholson MD LAB - HEMATOLOGY ORD ERABLES Performing Organization Address [facility] Co de Phone Number [facility] [address] [place] [address] * C-REACTIVE PROTEIN SENSITIVE (11/15/2018 11:22 PM CDT) Pathologist [facility] C-Reactive Protein High Sensitivity 0.07 <0.30 mg/dL 11/16/2018 10:15 AM CDT [facility] Blood BLOOD SPECIMEN / Unknown Venipuncture / Unknown 11/15/2018 11:22 PM CDT 11/16/2018 1:54 AM CDT Narrative [facility] - 11/16/2018 10:15 AM CDT C-REACTIVE [...] are used to assign risk as follows: Less than 0.10 mg/dL Low risk 0.10-0.30 mg/dL Average risk 0.31-0.99 mg/dL High risk Greater than 0.99 mg/dL Very high risk (Clin Chem 2009; 55:378-84) Matt Nicholson MD LAB - CHEMISTRY CHERIE CABRALES [facility] Organization Address City/State/ZIP Co de Phone Number [facility] [address] [place] [address] * XR SHOULDER 2+ VW LEFT (07/10/2018 8:28 AM [employer]) Anatomical Region Laterality Modality Upper Extremity Radiographic Maribel ging 07/10/2018 8:30 AM [employer] Impressions 07/10/2018 8:31 AM [employer] No displaced fractures or dislocation identified. Reading Radiologist: Dionne Rader MD on 07/10/2018 at 8:31 AM Narrative 07/10/2018 8:31 AM [employer] History: Left shoulder pain following fall COMPARISON: None Technique/findings: 3 views of the left shoulder demonstrate the bones to be well-mineralized. There is no displaced fracture or dislocation. No significant degenerative changes. The soft tissues are unremarkable. Procedure Note Dionne aRder MD - 07/10/2018 History: Left shoulder pain [...] 1:49 PM CDT Procedure Title: CT RENAL STONE*[id number] HISTORY: Testicular pain, unspecified COMPARISON: None. TECHNIQUE: [...] MD - 12/17/2017 Procedure Title: CT RENAL STONE*[id number] HISTORY: Testicular pain, unspecified COMPARISON: None. TECHNIQUE: [...] GC AMPLIFIED PROBE (12/17/2017 10:41 AM CDT) Chlamydia Amplified Probe Negative Negative 12/18/2017 9:18 AM CDT [facility] GC Amplified Probe Negative Negative 12/18/2017 9:18 AM CDT [facility] Microbiology ENTIRE ENDOCERVIX / Unknown Collection / Unknown 12/17/2017 10:41 AM CDT 12/17/2017 4:05 PM CDT Narrative [facility] - 12/18/2017 9:18 AM CDT Results based on detection/no detection of ribosomal RNA by amplified method. Prince Brennan MD LAB - MICROBIOLOGY O RDERABLES Performing Organization Address [facility] Co de Phone Number [facility] [address] [place] [address], [facility] [phone] * EKG 12-LEAD (11/26/2012 1:55 AM CDT) Only the most recent of2 resultswithin the time period is included. Narrative [facility] RADIOLOGY - 11/26/2012 1:55 AM CDT A scan was deleted from the Results section by Desmond Lorenzana [[id number]] on 11/26/2012 at 1:55 AM (File: [id number]) Procedure Note ProviderEnrique MD - 11/20/2017 A scan was deleted from the Results section by Desmond Lorenzana [[id number]] on 11/26/2012t 1:55 AM (File:[id number]) Paulo Nuñez MD ECG ORDERABLES Performing Organization Address [facility] Co de Phone Number [facility] * (ABNORMAL) GLUCOSE ACCUCHECK (11/10/2012 11:22 AM CDT) Only the most recent of5 resultswithin the time period is included. Glucose, Fingerstick 139(H) 70 - 110 MG/DL [facility] Comment:PERFORMED BY: MELA LOWERY 11/10/2012 11:2 2 AM CDT 11/10/2012 11:50 AM CDT Paulo Nuñez MD LAB - CHEMISTRY CHERIE CABRALES Performing Organization Address [facility] Co de Phone Number [address] [phone] * TROPONIN I (11/09/2012 6:00 PM CDT) Only the most recent of3 resultswithin the time period is included. Troponin I < 0.010 <0.032 ng/mL [facility] Comment: NOTE Any condition resulting in myocardial cell [...] to increase after onset of chest pain. Troponin values generally remain elevated for 5-10 days. BLOOD SPECIMEN / Unknown 11/09/2012 6:00 PM CDT 11/09/2012 6:11 PM CDT Paulo Nuñez MD LAB - CHEMISTRY CHERIE CABRALES Performing Organization Address [facility] Co de Phone Number [address] [phone] * CK + CKMB PANEL (11/09/2012 6:00 PM CDT) Only the most recent of3 resultswithin the time period is included. Pathologist [facility] CK Total 70 30 - 200 Units/L [facility] CK-MB 0.7 0.0 - 6.6 ng/mL [facility] Comment: CKMB Reference Range 6.6 ng/mL or greater = Positive For indeterminate results, additional specimen(s) for CKMB, drawn at least one hour apart, may aid diagnosis. Positive CKMB results should be clinically interpreted in combination with total CK serum level. In patients without cardiac muscle damage, CKMB (ng/mL) is generally <2.5% of total CK enzyme activity (Units/L). Virtually all patients with acute myocardial infarction have CKMB values 6.6 ng/mL or greater for samples drawn at least 8-12 hours after the onset of chest pain. CKMB values generally remain elevated for 2-3 days. BLOOD SPECIMEN / Unknown 11/09/2012 6:00 PM CDT 11/09/2012 6:11 PM CDT Paulo Nñuez MD LAB - CHEMISTRY CHERIE CABRALES [facility] Organization Address City/State/[facility] Co de Phone Number [address] [phone] * MRI BRAIN WO CONTRAST (11/09/2012 4:48 [...] electronically signed by MARCIO GARCIA M.D. on 11/10/2012 9:22 AM . Narrative 11/10/2012 9:22 [...] Fox M.D. on 11/10/2012 8:59 AM . IDr. MARCIO M.D. have personally reviewed and interpreted thisexamination/study. [...] electronically signed by MARCIO GARCIA M.D. on 11/09/2012 1:14 PM . Narrative 11/09/2012 1:14 [...] middle and posterior cerebral arteries are patent. The superior cerebellar, basilar and distal vertebral [...] CDT) APTT 27.1 23.0 - 38.4 SECONDS [facility] Comment: SUGGESTED THERAPEUTIC RANGE FOR FULL DOSE I.V. HEPARIN THERAPY FOR VENOUS THROMBOEMBOLISM IS 66.0 - 91.0 SECONDS, WITH AN APTT RATIO OF 2.1 - 3.0. APTT Ratio 0.88 [facility] Plasma specimen (specimen) 11/09/2012 12:10 AM CDT 11/09/2012 12:31 AM CDT Narrative [facility] - 11/09/2012 12:45 AM CDT Is patient on Heparin, Argatroban or Dabigatran?->N IS PATIENT ON HEPARIN? (Y OR N) N Paulo Nuñez MD LAB - COAGULATION OR DERABLES [address] [phone] * (ABNORMAL) URINALYSIS W/MICROSCOPIC NO CULTURE (11/09/2012 12:10 AM CDT) Color UA YELLOW STRW,YELLOW [facility] Clarity UA CLEAR CLEAR [facility] Specific Armstrong Urine 1.015 1.001 - 1.030 [facility] pH UA <= 5.0 5.0 - 8.0 [facility] Protein UA NEGATIVE <20 mg/dL [facility] Glucose UA NEGATIVE NEGATIVE mg/dL [facility] Ketones NEGATIVE NEGATIVE mg/dL [facility] Bilirubin UA NEGATIVE NEGATIVE mg/dL [facility] Blood UA NEGATIVE NEGATIVE [facility] Nitrite UA NEGATIVE NEGATIVE [facility] Leukocyte Esterase NEGATIVE NEGATIVE [facility] Urobilinogen UA < 2.0 <2.0 mg/dL [facility] WBC Urine < 1 0 - 2 /HPF [facility] Mucus Urine RARE(A) NONE SEEN /LPF [facility] Urine specimen (specimen) URINE SPECIMEN OBTAINED BY CLEAN CATCH PROCEDURE / Unknown 11/09/2012 12:10 AM CDT 11/09/2012 12:31 AM CDT Paulo Nuñez MD LAB - URINALYSIS ORD ERABLES [address] [phone] * DRUG ABUSE PANEL 10-20+ETHANOL URINE NO CONFIRM (11/09/2012 12:10 AM CDT) Amphetamines NEGATIVE NEGATIVE [facility] Comment:Positive Cutoff: >=1 000 ng/mL Barbiturate NEGATIVE NEGATIVE [facility] Comment:Positive Cutoff: >=2 00 ng/mL Benzodiazepine Screen Urine NEGATIVE NEGATIVE [facility] Comment:Positive Cutoff: >=2 00 ng/mL Opiates NEGATIVE NEGATIVE [facility] Comment:Positive Cutoff: >=3 00 ng/mL Cocaine Metabolite Urine NEGATIVE NEGATIVE [facility] Comment:Positive Cutoff: >=3 00 ng/mL Phencyclidine Screen Urine NEGATIVE NEGATIVE [facility] Comment:Positive Cutoff: >=2 5 ng/mL Cannabinoids Screen Urine NEGATIVE NEGATIVE [facility] Comment:Positive Cutoff: >=5 0 ng/mL Methadone NEGATIVE NEGATIVE [facility] Comment:Positive Cutoff: >=3 00 ng/mL Note SEE NOTE [facility] Comment: Positive results should be confirmed by another generally accepted non-immunological method such as gas chromatography or mass spectrometry. Toxicology testing by the [facility] is an aid to medical diagnosis and treatment of patients. No documented chain of custody was maintained. Results are intended to be used for clinical purposes only. Note SEE NOTE [facility] Comment: The UTOX Panel does not screen for Propoxyphene, Meprobamate, Carisoprodol, Trazodone, oomw-kct-qrpshqs medications and/or volatiles (Acetone, Isopropanol, Methanol, Ethylene Glycol). Ethanol, Salicylate, Acetaminophen, Tricyclic Antidepressants and several therapeutic drugs may be individually assayed in a serum specimen. Urine specimen (specimen) URINE SPECIMEN OBTAINED BY CLEAN CATCH PROCEDURE / Unknown 11/09/2012 12:10 AM CDT 11/09/2012 12:31 AM CDT Paulo Nuñez MD LAB - URINE CHEMISTR Y ORDERABLES Performing Organization Address [facility] Co de Phone Number [address] [phone] * PHOSPHORUS BLOOD (11/09/2012 12:10 AM CDT) Phosphorus 3.0 2.3 - 4.7 mg/dL [facility] Serum 11/09/2012 12:1 0 AM CDT 11/09/2012 12:31 AM CDT Narrative [facility] - 11/09/2012 1:04 AM CDT IS PATIENT ON HEPARIN? (Y OR N) N Paulo Nuñez MD LAB - CHEMISTRY ORDE RABLES Performing Organization Address [facility] Co de Phone Number [address] [phone] * HEPATIC FUNCTION PANEL (11/09/2012 12:10 AM CDT) Protein Total 6.9 6.0 - 8.3 g/dL [facility] Albumin 3.8 3.4 - 5.0 g/dL [facility] Bilirubin Total 0.5 0.2 - 1.2 mg/dL [facility] Alkaline Phosphatase 54 40 - 150 Units/L [facility] ALT 8 0 - 55 Units/L [facility] AST 18 5 - 34 Units/L [facility] Albumin/Globulin Ratio 1.2 1.1 - 2.3 [facility] Bilirubin Direct 0.2 0.0 - 0.5 mg/dL [facility] Bilirubin Indirect 0.3 mg/dL [facility] Comment: Unconjugated bilirubin is a calculated value, reference ranges have not been established Venous blood specimen (specimen) 11/09/2012 12:10 AM CDT 11/09/2012 12:31 AM CDT Narrative [facility] - 11/09/2012 1:04 AM CDT IS PATIENT ON HEPARIN? (Y OR N) N Paulo Nuñez MD LAB - CHEMISTRY CHERIE CABRALES Performing Organization Address [facility]/ZIP Co de Phone Number [address] [phone] * (ABNORMAL) LIPID PROFILE (11/09/2012 12:10 AM CDT) Cholesterol Total 199 <200 mg/dL [facility] HDL 56 > OR = 40 mg/dL [facility] Comment: ATP III classification of HDL cholesterol: <40 mg/dL Low; considered a major risk factor >60 mg/dL High; considered a negative risk factor Triglycerides 339(H) <150 mg/dL [facility] Comment: ATP III classification of Triglycerides: < 150 mg/dL Normal triglycerides 150-199 mg/dL Borderline-high triglycerides 200-400 mg/dL High triglycerides > 500 mg/dL Very high triglycerides LDL Calculated 75 0 - 100 mg/dL [facility] Comment: ATP III classification of LDL cholesterol: <100 mg/dL Optimal 100-129 Near optimal/above optimal 130-159 Borderline high 160-189 High >190 Very high 11/09/2012 12:1 0 AM CDT 11/09/2012 12:31 AM CDT Narrative [facility] - 11/09/2012 12:19 PM CDT IS PATIENT ON HEPARIN? (Y OR N) N Paulo Nuñez MD LAB - CHEMISTRY CHERIE CABRALES Performing Organization Address [facility]/ZIP Co de Phone Number [address] [phone] * XR CHEST 1VW PORTABLE (11/08/2012 11:45 PM CDT) Anatomical Region Laterality Modality Chest Other Impressions 11/09/2012 6:06 PM CDT Impression: No acute pulmonary process. This report was electronically signed by LULÚ BARNES M.D. on 11/09/2012 6:06 PM . 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
--- OUTSIDE RECORDS SUMMARY | 2024-07-29 20:14 | XMS_ITS | Referral Summary ---
Author Organization [facility] [address] Address [address] [place] [address] Care Team Providers Care Channel Marketing Coordinator Name Role Phone Dwight Nascimento MD Unavailable Matt Mathews MD Primary Care Provider [phone] Encounters Date Type Department Care Team Description 07/01/2024 Telephone [facility] [address] [facility] Advanced Medicine 12th [place] [address] [place] [address] Nancy Christensen 06/29/2024 Telephone [facility] [address] [facility] Medicine 12th [place] [address] [place] [address] Julissa Molina LPN 06/23/2024 11:55 AM SCOUTS Lab [facility] [address] [place] [address] Alcoholic cirrhosis of liver with ascites (CMS/HCC) (HCC); Type 2 diabetes mellitus without complication, with long-term current use of insulin (CMS/HCC) (HCC) 06/23/2024 9:40 AM SCOUTS Office Visit [facility] [address] [place] [address] Elan Hutchinson MD Alcoholic cirrhosis of liver with ascites (CMS/HCC) (HCC) (Primary Dx); Type 2 diabetes mellitus without complication, with long-term current use of insulin (CMS/HCC) (HCC); Alcohol use disorder; Hepatic encephalopathy (HCC) 06/10/2024 Orders Only [facility] [address] [place] [address] Matt Mathews MD 05/20/2024 Orders Only [facility] Information Management [address] [place] [address] Matt Mathews MD 05/19/2024 Orders Only [facility] Information Management [address] [place] [address] Matt Mathews MD 05/18/2024 Orders Only [facility] Information Management [address] [place] [address] Scanning, Provider 05/17/2024 Orders Only [facility] Information Management [address] [place] [address] Matt Mathews MD 05/05/2024 Telephone [facility] 12th [place] [address] [place] [address] Serena Varghese LPN 05/03/2024 Orders Only [facility] Information Management [address] [place] [address] Matt Mathews MD from Last 3 Months Allergies Active Allergy Reactions Criticality Noted Date Comments Ceftriaxone Itching Low 04/15/2023 Ciprofloxacin Itching Low 04/15/2023 Medications ascorbic acid (VITAMIN C) 500 mg tablet,chewable 1 tablet/chew tab (500 mg total) daily Active pantoprazole DR (PROTONIX) 40 mg EC tablet Take 1 tablet (40 mg total) by mouth every 12 (twelve) hours 2 Active pen needle, diabetic (UltiCare Pen Needle) 29 gauge x 1/2 needle Use to inject 2 times daily as directed. 180 each 3 Active insulin lispro protamine-insulin lispro 75/25 (HumaLOG 75/25) 100 unit/mL pen for injection ADMINISTER 5 UNITS UNDER THE SKIN TWICE DAILY 9 mL 3 Active furosemide (LASIX) 40 mg tablet Take 2 tablets (80 mg total) by mouth 2 (two) times a day 360 tablet 3 3 Active potassium chloride ER (KLOR-CON) 20 mEq CR tabletIndications: Chronic diastolic congestive heart failure (CMS/HCC) (HCC) Take 1 tablet (20 mEq total) by mouth daily as needed (muscle cramps) 20 tablet 1 3 Active midodrine (PROAMATINE) 2.5 mg tablet Take by mouth 3 (three) times a day 3 Active ondansetron ODT (ZOFRAN-ODT) 4 mg disintegrating tabletIndications: Nausea and Vomiting Dissolve one tablet (4 mg) on the tongue every four hours as needed for nausea/vomitin g. 180 tablet 3 3 Active spironolactone (ALDACTONE) 25 mg tabletIndications: Alcoholic cirrhosis of liver with ascites (CMS/HCC) (HCC),Ascites due to alcoholic cirrhosis (CMS/HCC) (HCC) Take 6 tablets (150 mg total) by mouth 2 (two) times a day 240 tablet 3 3 Active VeriTweetuch Ultra Test strip CHECK 2-3 TIMES DAILY 2 Active blood-glucose meter (VeriTweetuch Ultra2 Meter) misc CHECK 2-3 TIMES PER DAY 2 Active cyclobenzaprine (FLEXERIL) 10 mg tablet Take 1 tablet (10 mg total) by mouth 3 (three) times a day as needed for muscle spasms 3 Active empagliflozin (Jardiance) 10 mg tablet Take 1 tablet (10 mg total) by mouth daily 2 Active lancets (AddyTouch Delica Plus Lancet) 30 gauge misc CHECK 2-3 TIMES DAILY 2 Active oxyCODONE (ROXICODONE) 10 mg tablet 5 Active morphine ER (MS CONTIN) 60 mg 12 hr tablet 5 Active pregabalin (LYRICA) 50 mg capsule Take 1 capsule (50 mg total) by mouth 2 (two) times a day Active Active Problems Problem Noted Date Diagnosed Date Bilateral pulmonary embolism (CMS/HCC) 3 Portal hypertension (CMS/HCC) 04/15/2023 Prostate cancer 04/15/2023 [...] 08/18/2022 Assessment & Plan (08/18/2022 1:51 PM SCOUTS): Patient reports decreased edema; low continues to [...] 04/29/2022 Assessment & Plan (04/29/2022 1:45 PM SCOUTS): To hospital for severe pain and diarrhea; started on antibiotics, but prescriptions been delayed due to insurance Patient continues to have 10-15 watery bowel movements per day with pain with bowel movements Patient to start vancomycin once prescribed will continue echo tone 5 mg for abdominal pain Gastrointestinal hemorrhage with melena 03/09/20 Leukopenia 10/25/2021 Microcytic anemia 10/25/2021 Other secondary thrombocytopenia 10/25/2021 Periumbilical hernia 09/22/2021 Assessment & Plan (07/10/2022 12:41 PM SCOUTS): Continues to be present, causing pain and [...] medication Assessment & Plan (07/29/2022 2:02 PM SCOUTS): Patient reports generally improved pain management, though decreased response to 5 mg of oxycodone; discussed with patient metabolism pathway limits use of hydrocodone due to risk of overdose and accumulation of metabolites Will increase oxycodone at next refill Assessment & Plan (06/13/2021 10:19 AM SCOUTS): Patient was advised given concern for an incarcerated umbilical hernia to report to the er now. [place] He was asked to contact the office [...] outcome. Assessment & Plan (06/03/2021 6:29 PM SCOUTS): Patient continues to complain of jeovany-umbilical abdominal pain and is requesting continued refills of Tramadol. When asked how many he had left he states he ran out of them a week ago -- He was just given #12 on 05/13 upon discharge from [facility]. Today is 05/22 so if he ran [...] complains of abdominal plain as well as p ain all over . Will send out tramadol for him [...] 7:11 PM CDT): Still awaiting records from [facility] regarding the Cardiology evaluation of the pericardial [...] MEL. Assessment & Plan (06/03/2021 6:10 PM SCOUTS): Positive MEL. Per Rheumatology evaluation there is no rheumatologic cause for his symptoms as he does not have any clinical features of rheumatologic connective tissues disease at this time. Hence none of his pain is related to an autoimmune condition at this point. Assessment & Plan (01/27/2021 10:05 PM CDT): Awaiting recommendation from [facility] Rheum. Has Oct appointment Assessment & Plan [...] management Assessment & Plan (06/03/2021 6:10 PM SCOUTS): Chronic wedge compression fracture at T11. Patient [...] No hx of HE/jaundice. MRCP 05/[address] [facility] with cirrhosis/hepatic steatosis, 1.8 cm arterially enhancing observation without washout in segment 5 (LR-3). Labs at [facility] with +ve MEL 1:1280 but -ve AMA/ASMA, normal total IGG, normal ceruloplasmin/A1AT/HFE gene analysis despite elevated ferritin. AFP 4.6 in 03/2020. Hepatitis panel -ve (non-immune to Hep B). Labs 10/2020 with normal AST/ALT, TB 0.4, AKP 138, SCr 0.78, plts 120s, Na 139, INR 1.1 in 06/2020, MELD 7. Last drink 12/2020. Has developed bleeding EV requiring banding x 2 done locally at [facility] in [place], based on OSH records 1 EGD was [...] paracentesis Assessment & Plan (08/18/2022 1:49 PM SCOUTS): Not well controlled, patient had 5 L removed by paracentesis 1 week ago; is already refilled with ascitic fluid Patient to follow-up with cardiology on will likely need standing order for paracentesis Continue furosemide 80 mg b.i.d., spironolactone 100 mg daily Complicated by worsening peripheral edema Patient to follow-up with hepatology at end of week Assessment & Plan (08/04/2022 10:04 AM SCOUTS): Not well controlled; continues to have significant [...] site Assessment & Plan (07/29/2022 2:01 PM SCOUTS): Not well controlled, worsening; patient has recurrent [...] NAFLD Assessment & Plan (07/10/2022 12:43 PM SCOUTS): Admitted for EGD with banding, required 3 [...] 10:13 AM CDT): Continue per GI at [facility] for his cirrhosis. Stressed importance of following up on a regular basis due his progressive disease. Assessment & Plan (09/15/2021 8:39 PM CDT): Continue per hepatology at [facility] Assessment & Plan (06/03/2021 6:09 PM SCOUTS): Continue her GI at [facility], Dr. Jasso. He has been started on new medication to help decrease the ascites buildup. Encouraged him to follow their directions and keep his appointments. Strongly encouraged complete cessation of alcohol. I reviewed the lab results regarding alcohol use. He still adamant that he has not drank since his 51th birthday. Assessment & Plan (05/14/2021 12:07 PM SCOUTS): - MELD labs today, and repeat autoimmune [...] followup with local GI. Await recommendation from [facility] hepatology Assessment & Plan (12/12/2020 6:56 [...] Patient would like to be referred to [facility] to see the hepatology group therefore continuity of care a since they are part of the [facility] system and can share medical records. Will make that referral Assessment & Plan (12/02/2020 10:30 AM CDT): Per GI note, unknown etiology of the cirrhosis/ascites. However, I have placed a call to Dr. Rodriguez, Attending GI at [facility] to discuss his recent labs, most importantly the positive MEL at 1:1280. I left a message on 11/20 and will await return call. I have concern for possible autoimmune hepatitis as the underlying cause. Patient appears to have increased ascites over the past few weeks. Increased pain. Increased orthopnea. Will check abdominal US at [facility] (patient to schedule on own as order and phone number provided). If has acute increase in sxs, encouraged to present to [facility] ER for further evaluation so GI/heapatology group can evaluate. He would like to transfer care to [facility]. Tramadol a few times a day is managing pain. Monitor closely Dr. Gordon, auto headlight mechanic at [facility] returned my call on Thursday, November 23. [...] PM CDT): Stressed importance of followup with auto headlight mechanic. He states he has followup with Dr. Medrano at [facility] at the end of October and next week with Dr. Claros. He is having daily pain. Attempted to contact Dr Claros. Multiple messages left with staff and call not returned. Will await recommendations from Dr. Medrano. Discussed referral to [facility] auto headlight mechanic --- patient has a family member in [...] diet Assessment & Plan (07/10/2022 12:44 PM SCOUTS): Not well controlled, has been on insulin [...] 05/22/20212021 Assessment & Plan (05/22/2021 10:54 AM SCOUTS): Obesity is unchanged. Discussed the patient's BMI. The BMI is above average. BMI management plan is completed. BMI Follow-up includes: nutrition counseling, exercise counseling and education provided. BMI 31.0-31.9,adult 05/22/2021 08/29/19 Assessment & Plan (05/22/2021 10:54 AM SCOUTS): Obesity is unchanged. Discussed the patient's BMI. [...] 01/24/2021 05/22/20 21 BMI 29.0-29.9,adult 12/12/2020 01/25/20 Assessment & Plan (12/12/2020 1:02 PM CDT): [...] on file Legal Sex Male 9:05 AM SCOUTS Gender Identity Male 06/09/2023 11:43 AM SCOUTS Sexual Orientation Straight 06/09/2023 11 :43 AM SCOUTS Last Filed Vital Signs Vital Sign Reading Time Taken Comments Blood Pressure 94/60 06/23/2024 10:30 AM SCOUTS Pulse 80 06/23/2024 10:30 AM SCOUTS Temperature 37 C (98.6 F) 06/23/2024 10:30 AM SCOUTS Respiratory Rate 16 06/23/2024 10:30 AM SCOUTS Oxygen Saturation 94% 06/23/2024 10:30 AM SCOUTS Inhaled Oxygen Concentration - - Weight 68.6 kg (151 lb 3.2 oz) 06/23/2024 10:30 AM SCOUTS Height 165.1 cm (5' 5 ) 06/23/2024 10:30 AM SCOUTS Body Mass Index 25.16 06/23/2024 10:30 AM SCOUTS Plan of Treatment Not on file Procedures Procedure Name Priority Date/Time Associated Diagnosis Comments EGD Routine 07/05/2024 1:14 PM SCOUTS EGFR Routine 06/23/2024 12:02 PM SCOUTS Alcoholic cirrhosis of liver with ascites (CMS/HCC) (HCC) DIFFERENTIAL AUTO Routine 06/23/2024 12: 02 PM SCOUTS Alcoholic cirrhosis of liver with ascites (CMS/HCC) (HCC) CBC WITH AUTO DIFFERENTIAL Routine 06/23 12:02 PM SCOUTS Alcoholic cirrhosis of liver with ascites (CMS/HCC) (HCC) COMPREHENSIVE METABOLIC PANEL Routine 06/23/2024 12:02 PM SCOUTS Alcoholic cirrhosis of liver with ascites (CMS/HCC) (HCC) PROTIME-INR Routine 06/23/2024 12:02 PM SCOUTS Alcoholic cirrhosis of liver with ascites (CMS/HCC) (HCC) [id number], TUMOR MARKER Routine 06/23/2024 12:02 PM SCOUTS Alcoholic cirrhosis of liver with ascites (CMS/HCC) (HCC) PHOSPHATIDYLETHANOL Routine 06/23/2024 1 2:02 PM SCOUTS Alcoholic cirrhosis of liver with ascites (CMS/HCC) (HCC) HEMOGLOBIN A1C Routine 06/23/2024 12:02 PM SCOUTS Alcoholic cirrhosis of liver with ascites (CMS/HCC) (HCC) Type 2 diabetes mellitus without complication, with long-term current use of insulin (CMS/HCC) (HCC) SCAN - RADIOLOGY/IMAGING 06/10/2024 EGD Routine 05/20/2024 12:45 PM SCOUTS SCAN - RADIOLOGY/IMAGING 05/20/2024 SCAN - RADIOLOGY/IMAGING 05/19/2024 SCAN - RADIOLOGY/IMAGING 05/18/2024 SCAN - RADIOLOGY/IMAGING 05/17/2024 SCAN - RADIOLOGY/IMAGING 05/03/2024 ALBUMIN CREATININE RATIO, URINE Routine 08/15/2022 POCT LIPID PANEL Routine 07/28/2022 9:31 AM SCOUTS Lipid screening HM COLONOSCOPY Routine 03/12/2022 PSA SCREEN Routine 10/19/2020 10:46 AM CDT Prostate cancer screening from Last 3 Months or Most Recently Relevant to Health Maintenance Results * EGD -[facility] (07/05/2024 1:14 PM SCOUTS) Anatomical Region Laterality Modality Other us Historical Provider GI PROCEDURE ORDERABLES F inal Result * Phosphatidylethanol (06/23/2024 12:02 PM SCOUTS) PHOSPHATIDYLETHANOL Negative . [facility] Comment: ADDITIONAL INFORMATION This report is intended for use in clinical monitoring and management of patients. It is not intended for use in employment-related testing. This test was developed and its performance characteristics determined by [facility] in a manner consistent with CLIA requirements. This test has not been cleared or approved by the U.S. Food and Drug Administration. Test Performed by: [facility] [address] [place] [address] Community Association Manager: Smooth Goff Ph.D.; CLIA# [id number] PEth 16:0/18:1 (POPEth)by LC-MS/MS <10 Cutoff: 10 [...] well established Blood 06/23/2024 12:0 2 PM SCOUTS 06/23/2024 12:16 PM SCOUTS us Elan Hutchinson MD LAB BLOOD ORDERABLES Final Res ult [facility] [address] [facility]. [place] [address] [facility] * (ABNORMAL) eGFR (06/23/2024 12:02 PM SCOUTS) eGFR 55(L) >=60 mL/min/1. 73 m2 Comment: Interpretive Data Reference Interval Normal >/= 90 mL/min/1.73m2 Mildly decreased* 60 - 89 mL/min/1.73m2 Mildly to moderately decreased 45 - 59 mL/min/1.73m2 Moderately to severely decreased 30 - 44 mL/min/1.73m2 Severely decreased 15 - 29 mL/min/1.73m2 Kidney Failure < 15 mL/min/1.73m2 *Relative to young adult level Estimated glomerular [...] reviewed 2021. Blood 06/23/2024 12:0 2 PM SCOUTS 06/23/2024 12:16 PM SCOUTS us Elan Hutchinson MD LAB BLOOD ORDERABLES Final Res ult [facility] [address] [facility]. [place] [address] * Differential, auto (06/23/2024 12:02 PM SCOUTS) Neutrophil abs 4.3 1.5 - 6.5 K/cumm [...] 2017. Imm gran pct 0.5 % [facility] Comment: Interpretive Data Percent cell count reference ranges are not reported, since discordance with absolute values may lead to misinterpretation of CBC data. Current Interpretive Data was last revised on 2017. Lymphocyte pct 13.0 % [facility] Comment: Interpretive Data Percent cell count reference ranges are not reported, since discordance with absolute values may lead to misinterpretation of CBC data. Current Interpretive Data was last revised on 2017. Monocyte pct 12.9 % [facility] Comment: Interpretive Data Percent cell count reference ranges are not reported, since discordance with absolute values may lead to misinterpretation of CBC data. Current Interpretive Data was last revised on 2017. Eosinophil pct 1.8 % [facility] Comment: Interpretive Data Percent cell count reference ranges are not reported, since discordance with absolute values may lead to misinterpretation of CBC data. Current Interpretive Data was last revised on 2017. Basophil pct 0.5 % [facility] Comment: Interpretive Data Percent cell count reference ranges are not reported, since discordance with absolute values may lead to misinterpretation of CBC data. Current Interpretive Data was last revised on 2017. Blood 06/23/2024 12:0 2 PM SCOUTS 06/23/2024 12:16 PM SCOUTS us Elan Hutchinson MD LAB BLOOD ORDERABLES Final Res ult [facility] [address] [facility]. [place] [address] * (ABNORMAL) CBC with auto differential (06/23/2024 12:02 PM SCOUTS) WBC 6.1 3.8 - 9.9 K/cumm Hgb 12.8(L) 13.0 - 17.5 g/dL [facility] Hct 40.8 38.9 - 50.3 % [facility] Plt 99(L) 150 - 400 K/cumm [facility] MPV 10.6 9.1 - 12.3 fL [facility] RBC 4.35 4.30 - 5.80 M/cumm [facility] MCV 93.8 81.3 - 96.4 fL [facility] MCH 29.4 27.1 - 33.3 pg [facility] MCHC 31.4(L) 32.3 - 35.7 g/dL [facility] RDW CV 15.4(H) 11.1 - 14.9 % [facility] RDW SD 53.1(H) 35.7 - 48.1 fL [facility] NRBC abs 0.00 0.00 - 0.01 K/cumm [facility] Blood 06/23/2024 12:0 2 PM SCOUTS 06/23/2024 12:16 PM SCOUTS Elan Hutchinson MD LAB BLOOD ORDERABLES Final Res ult Performing Organization Address [facility] de Phone Number [facility] [address] [employer] [place] [address] * [id number], Tumor Marker (06/23/2024 12:02 PM SCOUTS) alpha Fetoprotein <1.8 <=8.3 ng/mL Comment: Interpretive Data The Elaina AFP assay procedure was used. Results from different manufacturers or methods may not be comparable. Serial testing should be performed using the same method. 0-1 month. AFP concentrations may reach or exceed 100,000 ng/mL after depending on gestational age and weight. 1-3 months 50 1000 ng/ml 3-6 months 10 500 ng/ml 6-12 months 3.0 100 ng/ml >1 year 0.0 8.3 ng/ml References Jaquelin Y. et al. J. Ped Surg 1978;13:155-156 Jake Brown. et al. Clin Chem Lab Med 2018;57:783-797 Brenden Ellsworth et al. Clin Chem 2014;5165-3733. Current interpretive data was last revised 2022. Testing performed by: [facility], [address] [place] [address]., [id number] Blood 06/23/2024 12:0 2 PM SCOUTS 06/23/2024 2:22 PM SCOUTS Elan Hutchinson MD LAB BLOOD ORDERABLES Final Res ult Performing Organization Address [facility] Co de Phone Number [facility] [address] [employer]. [facility] [place] [address] * Protime-INR (06/23/2024 12:02 PM SCOUTS) PT 11.6 9.7 - 13.0 sec INR 1.07 0.90 - 1.20 [facility] Comment: Interpretive data Oral anticoagulant therapeutic ranges: Venous thromboembolism prophylaxis or treatment: 2.0-3.0 CARDIOLOGY Standard range: 2.0-3.0 High-intensity range: 2.5-3.5 Refer to indication-specific guidelines for appropriate target ranges for prosthetic heart valve replacement. Current interpretive data was last revised on 2019. Blood 06/23/2024 12:0 2 PM SCOUTS 06/23/2024 12:16 PM SCOUTS Elan Hutchinson MD LAB BLOOD ORDERABLES Final Res t Performing Organization Address [facility] de Phone Number [facility] [address] [facility] [place], [place] [id number] * Hemoglobin A1c (06/23/2024 12:02 PM SCOUTS) Pathologist [facility] Hgb A1C 5.0 4.0 - 5.6 % Estimated Average Glucose 97 mg/dL [facility] Comment: The ADA recommends reporting an estimated Average Glucose (eAG) with all Hemoglobin A1c results using the equation derived from a study of 507 normal and diabetic adults. Minority populations were underrepresented and children were not included. (Diabetes Care 31:6483-6545, 2008). The eAG is not equivalent to a fasting glucose. Blood 06/23/2024 12:0 2 PM SCOUTS 06/23/2024 12:16 PM SCOUTS Elan Hutchinson MD LAB BLOOD ORDERABLES Final Res ult Performing Organization Address [facility] Co de Phone Number [facility] [address] [facility] [place], [place] [id number] * (ABNORMAL) Comprehensive metabolic panel (06/23/2024 12:02 PM SCOUTS) Pathologist [facility] Sodium 136 135 - 145 mmol/L Potassium, [...] >/= 126 mg/dl is diagnostic for diabetes. Fasting is defined as no caloric intake [...] [facility] Blood 06/23/2024 12:0 2 PM SCOUTS 06/23/2024 12:16 PM SCOUTS Elan Hutchinson MD LAB BLOOD ORDERABLES Final Res ult [facility] [address] [facility]. [place] [address] * SCAN - RADIOLOGY/IMAGING (06/10/2024) Anatomical Region Laterality Modality Other Matt Mathews MD Final Res ult * EGD -[facility] (05/20/2024 12:45 PM SCOUTS) Anatomical Region Laterality Modality Other Result [facility] Enrique Felix MD GI PROCEDURE ORDERABLES F inal Result * SCAN - RADIOLOGY/IMAGING (05/20/2024) Anatomical Region Laterality Modality Other Matt Mathews MD Final Res ult * SCAN - RADIOLOGY/IMAGING (05/19/2024) Anatomical Region Laterality Modality Other Result [facility] Matt Mathews MD Final Res ult * SCAN - RADIOLOGY/IMAGING (05/18/2024) Anatomical Region Laterality Modality Other Result [facility] Provider Scanning Final Result * SCAN - RADIOLOGY/IMAGING (05/17/2024) Anatomical Region Laterality Modality Other Matt Mathews MD Final Res ult * SCAN - RADIOLOGY/IMAGING (05/03/2024) Anatomical Region Laterality Modality Other Result [facility] Matt Mathews MD Final Res ult * Albumin Creatinine Ratio, Urine (08/15/2022) Urine Result [facility] Matt Mathews MD LAB URINE ORDERABLES Amanda l Result * POCT lipid panel (07/28/2022 9:31 AM SCOUTS) Cholesterol, POC 231 mg/dL HDL, POC 42 mg/dL Triglycerides, POC 112 mg/dL LDL Cholesterol POC 168 mg/dL Chol/HDL Ratio, POC 4.0 Non-HDL Cholesterol, POC 190 mg/dL Cholesterol Total, POC 231 mg/dL Capillary blood 07/28/2022 9 :31 AM SCOUTS Result [facility] Anais Chowdray MD POINT OF CARE TEST O RDERABLES Edited Result - Final * HM COLONOSCOPY (03/12/2022) Historical Provider HEALTH MAINTENANCE Final Result * PSA screen (10/19/2020 10:46 AM CDT) PSA 0.2 < OR = 4.0 ng/mL [employer] Comment: The total PSA value from [...] Opal B[facility] LAB BLOOD ORDERABLES Final Result [facility] [address] [place] [address] from Last 3 Months or Most Recently Relevant to Health Maintenance Insurance [facility] MEDICARE [place] [address] [facility] MEDICARE Care Teams Channel Marketing Coordinator Relationship Specialty Start Date End Date Matt Mathews MD [address] [place] [address] PCP - General Family Medicine 03/31/22 Dwight Nascimento MD Consulting Physician Internal Medicine 09/20/21
--- OUTSIDE RECORDS SUMMARY | 2024-07-29 20:14 | XMS_ITS | Encounter Summary ---
Author Organization [facility] Address [address] [place] [address] Phone Care Team Providers Care Hide Puller Name Role Phone Dwight Nascimento MD Unavailable Matt Mathews MD Primary Care Provider [phone] Encounter Details Date Type Department Care Team [...] on file Legal Sex Male 9:05 AM ASSOCIATE PROFESSOR OF PHYSICS Gender Identity Male 06/09/2023 11:43 AM ASSOCIATE PROFESSOR OF PHYSICS Sexual Orientation Straight 06/09/2023 11 :43 AM ASSOCIATE PROFESSOR OF PHYSICS documented as of this encounter Plan of Treatment Not on file documented as of this encounter Procedures Procedure Name Priority Date/Time Associated Diagnosis Comments SCAN - LABS 04/08/2024 documented in this encounter Results * SCAN - LABS (04/08/2024) us Provider Scanning Final Result documented in this encounter Visit Diagnoses Not on filedocumented in this encounter Care Teams Hide Puller Relationship Specialty Start Date End Date Matt Mathews MD [address] [place] [address] PCP - General Family Medicine 03/31/22 Dwight Nascimento MD Consulting Physician Internal Medicine 09/20/21 documented as of this encounter
--- OUTSIDE RECORDS SUMMARY | 2024-07-29 20:14 | XMS_ITS | Encounter Summary ---
Author Organization [facility] Address [address] [place] [address] Phone Care Team Providers Care Vibrator Operator Name Role Phone Dwight Nascimento MD Unavailable Matt Mathews MD Primary Care Provider [phone] Encounter Details Date Type Department Care Team [...] on file Legal Sex Male 9:05 AM RE EXAMINER Gender Identity Male 06/09/2023 11:43 AM RE EXAMINER Sexual Orientation Straight 06/09/2023 11 :43 AM RE EXAMINER documented as of this encounter Plan of Treatment Not on file documented as of this encounter Procedures Procedure Name Priority Date/Time Associated Diagnosis Comments SCAN - LABS 04/11/2024 documented in this encounter Results * SCAN - LABS (04/11/2024) us Provider Scanning Final Result documented in this encounter Visit Diagnoses Not on filedocumented in this encounter Care Teams Vibrator Operator Relationship Specialty Start Date End Date Matt Mathews MD [address] [place] [address] PCP - General Family Medicine 03/31/22 Dwight Nascimento MD Consulting Physician Internal Medicine 09/20/21 documented as of this encounter
--- OUTSIDE RECORDS SUMMARY | 2024-07-29 20:14 | XMS_ITS | Clinical Summary ---
Author Organization [facility] Address [address] [place] [address] Care Team Providers Care Batch Room Technician Name Role Phone Fidel Camejo MD Primary Care Provider Source Comments [facility],non-owned Affiliates and Associated Physician Practices is amultiple site organization consisting of ambulatory clinics and hospital sitesin [place], [place], [place] and [place]. This disclosure is being madepursuant to the Care Everywhere program and may not contain all information available regarding this patient. Last updated 18.[facility] Allergies No known active allergies Medications * [...] 36.6 C (97.9 F) 07/12/2020 10:23 AM BOOKKEEPERS SUPERVISOR Respiratory Rate 18 11/01/2020 11:37 AM CDT Oxygen Saturation 100% 11/01/2020 11:37 AM CDT Inhaled Oxygen Concentration - - Weight 81.2 kg (179 lb) 11/01/2020 11:37 AM CDT Height 165.1 cm (5' 5 ) 07/12/2020 10:23 AM BOOKKEEPERS SUPERVISOR Body Mass Index 29.79 07/12/2020 10:23 AM BOOKKEEPERS SUPERVISOR Plan of Treatment Health Maintenance Due Date [...] Management General On track( 021 10:36 AM BOOKKEEPERS SUPERVISOR) No Jose Juan Dumont, RN Note: Expected end date: Interventions: Take all medications as prescribed Let your doctor know right away about any changes in your medications Make sure to request a refill of your medication at least one week prior to your last dose Procedures Procedure Name Priority Date/Time Associated Diagnosis Comments COMPREHENSIVE METABOLIC PANEL Routine 07/12/2020 12:54 PM BOOKKEEPERS SUPERVISOR Abdominal pain, unspecified abdominal location Chronic diarrhea HEPATITIS C ANTIBODY Routine 04/04/2020 1:28 PM CDT RUQ pain Abnormal finding on imaging of liver LIPID PROFILE Routine 11/09/2012 12:10 AM CDT from Last 3 Months or Most Recently Relevant to Health Maintenance Results * (ABNORMAL) COMPREHENSIVE METABOLIC PANEL (07/12/2020 12:54 PM BOOKKEEPERS SUPERVISOR) BUN 10 7 - 26 mg/dL 07/12/2020 2:12 PM [facility] Creatinine 0.6 0.6 - 1.2 mg/dL 07/12/2020 2:12 PM [facility] Sodium 138 136 - 145 mmol/L 07/12/2020 2:12 PM [facility] Potassium 4.2 3.5 - 4.5 mmol/L 07/12/2020 2:12 PM [facility] Chloride 103 98 - 107 mmol/L 07/12/2020 2:12 PM [facility] CO2 26 22 - 29 mmol/L 07/12/2020 2:12 PM [facility] Glucose 133(H) 70 - 115 mg/dL 07/12/2020 2:12 PM [facility] Calcium 9.1 8.4 - 10.2 mg/dL 07/12/2020 2:12 PM [facility] Protein Total 6.9 6.0 - 8.3 g/dL 07/12/2020 2:12 PM [facility] Albumin 3.8 3.4 - 5.0 g/dL 07/12/2020 2:12 PM [facility] Bilirubin Total 1.0 0.2 - 1.2 mg/dL 07/12/2020 2:12 PM [facility] Alkaline Phosphatase 178(H) 40 - 150 Units/L 07/12/2020 2:12 PM [facility] ALT 18 0 - 55 Units/L 07/12/2020 2:12 PM [facility] AST 46(H) 5 - 34 Units/L 07/12/2020 2:12 PM [facility] Anion Gap 13 8 - 18 07/12/2020 2:12 PM [facility] BUN/Creatinine Ratio 17 7 - 23 07/12/2020 2:12 PM BOOKKEEPERS SUPERVISOR [facility] Osmolality Calculated 287 270 - 300 mOsm/kg 07/12/2020 2:12 PM [facility] Albumin/Globulin Ratio 1.2 1.1 - 2.3 07/12/2020 2:12 PM [facility] eGFR >60 >60 mL/min/1.7 3 m2 07/12/2020 2:12 PM [facility] Blood BLOOD SPECIMEN / Unknown Lab Venipuncture / Unknown 07/12/2020 12:54 PM BOOKKEEPERS SUPERVISOR 07/12/2020 1:20 PM [employer]KEEPERS SUPERVISOR Billie Medrano MD LAB - CHEMISTRY [facility] Performing Organization Address City/[facility]/ZIP Co de Phone Number [address] [address], [facility] [phone] * HEPATITIS C ANTIBODY (04/04/2020 1:28 PM CDT) Pathologist [facility] Hepatitis C Antibody Non-react cathi Non-reac tive 04/04/2020 3:27 PM CDT [facility] Comment:Hepatitis C Antibody screen indicates no serologic [...] Medrano MD LAB - CHEMISTRY [facility]AL[facility] [address] [address], [place] [phone] * (ABNORMAL) LIPID PROFILE (11/09/2012 12:10 AM CDT) Cholesterol Total 199 <200 mg/dL [facility] HDL 56 > OR = 40 mg/dL [facility] Comment: ATP III classification of HDL cholesterol: <40 mg/dL Low; considered a major risk factor >60 mg/dL High; considered a negative risk factor Triglycerides 339(H) <150 mg/dL [facility] Comment: ATP III classification of Triglycerides: < 150 mg/dL Normal triglycerides 150-199 mg/dL Borderline-high triglycerides 200-400 mg/dL High triglycerides > 500 mg/dL Very high triglycerides LDL Calculated 75 0 - 100 mg/dL [facility] Comment: ATP III classification of LDL cholesterol: <100 mg/dL Optimal 100-129 Near optimal/above optimal 130-159 Borderline high 160-189 High >190 Very high 11/09/2012 12:1 0 AM CDT 11/09/2012 12:31 AM CDT Narrative [facility] - 11/09/2012 12:19 PM CDT IS PATIENT ON HEPARIN? (Y OR N) N Paulo Nuñez MD LAB - CHEMISTRY [facility] Organization Address City/State/[facility] Co de Phone Number [facility] [address] [phone] from Last 3 Months or Most Recently Relevant to Health Maintenance Advance Directives * Full Code (Latest Code Status on File) Date Activated Date Inactivated Comments 11/16/2018 3:08 AM 11/17/2018 7:07 PM Care Teams Batch Room Technician Relationship Specialty Start Date End Date Fidel Camejo MD [address] [place] [id number] PCP - General Family Medicine 04/10/24
--- OUTSIDE RECORDS SUMMARY | 2024-07-29 20:14 | XMS_ITS | Clinical Summary ---
Author Organization [facility] [address] Address [address] [place] [address] Care Team Providers Care Socially Responsible Investment Adviser Name Role Phone Dwight Nascimento MD Unavailable Matt Mathews MD Primary Care Provider [phone] Allergies Active Allergy Reactions Criticality Noted Date [...] a day 240 tablet 3 3 Active OneTouch Ultra Test strip CHECK 2-3 TIMES DAILY 2 Active blood-glucose meter (Harper Love Adhesiveuch Ultra2 Meter) misc CHECK 2-3 TIMES PER DAY 2 Active cyclobenzaprine (FLEXERIL) 10 mg tablet Take 1 tablet (10 mg total) by mouth 3 (three) times a day as needed for muscle spasms 3 Active empagliflozin (Jardiance) 10 mg tablet Take 1 tablet (10 mg total) by mouth daily 2 Active lancets (Harper Love Adhesiveuch Delica Plus Lancet) 30 gauge misc CHECK [...] 08/18/2022 Assessment & Plan (08/18/2022 1:51 PM TWX OPERATOR): Patient reports decreased edema; low continues to [...] 04/29/2022 Assessment & Plan (04/29/2022 1:45 PM TWX OPERATOR): To hospital for severe pain and diarrhea; [...] 09/22/2021 Assessment & Plan (07/10/2022 12:41 PM TWX OPERATOR): Continues to be present, causing pain and [...] medication Assessment & Plan (07/29/2022 2:02 PM TWX OPERATOR): Patient reports generally improved pain management, though decreased response to 5 mg of oxycodone; discussed with patient metabolism pathway limits use of hydrocodone due to risk of overdose and accumulation of metabolites Will increase oxycodone at next refill Assessment & Plan (06/13/2021 10:19 AM TWX OPERATOR): Patient was advised given concern for an incarcerated umbilical hernia to report to the er now. He is going to [place]. He was asked to contact the office [...] outcome. Assessment & Plan (06/03/2021 6:29 PM TWX OPERATOR): Patient continues to complain of jeovany-umbilical abdominal pain and is requesting continued refills of Tramadol. When asked how many he had left he states he ran out of them a week ago -- He was just given #12 on 11/29 upon discharge from [facility]. Today is 05/22 so if he ran [...] 7:11 PM CDT): Still awaiting records from [facility] regarding the Cardiology evaluation of the pericardial [...] MEL. Assessment & Plan (06/03/2021 6:10 PM TWX OPERATOR): Positive MEL. Per Rheumatology evaluation there is no rheumatologic cause for his symptoms as he does not have any clinical features of rheumatologic connective tissues disease at this time. Hence none of his pain is related to an autoimmune condition at this point. Assessment & Plan (01/27/2021 10:05 PM CDT): Awaiting recommendation from [facility] Rheum. Has Oct appointment Assessment & [...] management Assessment & Plan (06/03/2021 6:10 PM TWX OPERATOR): Chronic wedge compression fracture at T11. Patient [...] No hx of HE/jaundice. MRCP 05/2020 at [facility] with cirrhosis/hepatic steatosis, 1.8 cm arterially enhancing observation without washout in segment 5 (LR-3). Labs at [facility] with +ve MEL 1:1280 but -ve AMA/ASMA, normal total IGG, normal ceruloplasmin/A1AT/HFE gene analysis despite elevated ferritin. AFP 4.6 in 03/2020. Hepatitis panel -ve (non-immune to Hep B). Labs 10/2020 with normal AST/ALT, TB 0.4, AKP 138, SCr 0.78, plts 120s, Na 139, INR 1.1 in 06/2020, MELD 7. Last drink 12/2020. Has developed bleeding EV requiring banding x 2 done locally at [facility] in [place], based on OSH records 1 EGD was [...] paracentesis Assessment & Plan (08/18/2022 1:49 PM TWX OPERATOR): Not well controlled, patient had 5 L removed by paracentesis 1 week ago; is already refilled with ascitic fluid Patient to follow-up with cardiology on will likely need standing order for paracentesis Continue furosemide 80 mg b.i.d., spironolactone 100 mg daily Complicated by worsening peripheral edema Patient to follow-up with hepatology at end of week Assessment & Plan (08/04/2022 10:04 AM TWX OPERATOR): Not well controlled; continues to have significant [...] site Assessment & Plan (07/29/2022 2:01 PM TWX OPERATOR): Not well controlled, worsening; patient has recurrent [...] NAFLD Assessment & Plan (07/10/2022 12:43 PM TWX OPERATOR): Admitted for EGD with banding, required 3 [...] 10:13 AM CDT): Continue per GI at [facility] for his cirrhosis. Stressed importance of following up on a regular basis due his progressive disease. Assessment & Plan (09/15/2021 8:39 PM CDT): Continue per hepatology at [facility] Assessment & Plan (06/03/2021 6:09 PM TWX OPERATOR): Continue her GI at [facility], Dr. Jasso. He has been started on new medication to help decrease the ascites buildup. Encouraged him to follow their directions and keep his appointments. Strongly encouraged complete cessation of alcohol. I reviewed the lab results regarding alcohol use. He still adamant that he has not drank since his 51th birthday. Assessment & Plan (05/14/2021 12:07 PM TWX OPERATOR): - MELD labs today, and repeat autoimmune [...] followup with local GI. Await recommendation from [facility] hepatology Assessment & Plan (12/12/2020 6:56 [...] Patient would like to be referred to [facility] to see the hepatology group therefore continuity of care a since they are part of the [facility] system and can share medical records. Will make that referral Assessment & Plan (12/02/2020 10:30 AM CDT): Per GI note, unknown etiology of the cirrhosis/ascites. However, I have placed a call to Dr. Rodriguez, Attending GI at [facility] to discuss his recent labs, most importantly the positive MEL at 1:1280. I left a message on 11/20 and will await return call. I have concern for possible autoimmune hepatitis as the underlying cause. Patient appears to have increased ascites over the past few weeks. Increased pain. Increased orthopnea. Will check abdominal US at [facility] (patient to schedule on own as order and phone number provided). If has acute increase in sxs, encouraged to present to [facility] ER for further evaluation so GI/heapatology group can evaluate. He would like to transfer care to [facility]. Tramadol a few times a day is managing pain. Monitor closely Dr. Gordon, deli department manager at [facility] returned my call on Beni, Estefania 11th. Discussed patient at length. In summary she [...] PM CDT): Stressed importance of followup with deli department manager. He states he has followup with Dr. Medrano at [facility] at the end of October and next week with Dr. Claros. He is having daily pain. Attempted to contact Dr Claros. Multiple messages left with staff and call not returned. Will await recommendations from Dr. Medrano. Discussed referral to [facility] deli department manager --- patient has a family member in [...] diet Assessment & Plan (07/10/2022 12:44 PM TWX OPERATOR): Not well controlled, has been on insulin [...] 05/22/20212021 Assessment & Plan (05/22/2021 10:54 AM TWX OPERATOR): Obesity is unchanged. Discussed the patient's BMI. The BMI is above average. BMI management plan is completed. BMI Follow-up includes: nutrition counseling, exercise counseling and education provided. BMI 31.0-31.9,adult 05/22/2021 08/29/19 22 Assessment & Plan (05/22/2021 10:54 AM TWX OPERATOR): Obesity is unchanged. Discussed the patient's BMI. [...] and education provided. BMI 31.0-31.9,adult 10/19/2020 11/21/19 Assessment & Plan (10/19/2020 9:05 AM CDT): Obesity is unchanged. Discussed the patient's BMI. The BMI is above average. BMI management plan is completed. BMI Follow-up includes: nutrition counseling, exercise counseling and education provided. Encounters Date Type Department Care Team Description 07/01/2024 Telephone [facility] Gastroenterology [address] [facility] [address]th [place] [address] [place] [address] HiginiopadminiNancy 06/29/2024 Telephone [facility] Gastroenterology [address]th [place] [address] [place] [address] Julissa Molina LPN 06/23/2024 11:55 AM TWX OPERATOR Lab [facility] [address] [place] [address] Alcoholic cirrhosis of liver with ascites (CMS/HCC) (HCC); Type 2 diabetes mellitus without complication, with long-term current use of insulin (CMS/HCC) (HCC) 06/23/2024 9:40 AM TWX OPERATOR Office Visit [facility] Gastroenterology [facility] [facility] Medical Office [address] [place] [address] Elan Hutchinson MD Alcoholic cirrhosis of liver with ascites (CMS/HCC) (HCC) (Primary Dx); Type 2 diabetes mellitus without complication, with long-term current use of insulin (CMS/HCC) (HCC); Alcohol use disorder; Hepatic encephalopathy (HCC) 06/10/2024 Orders Only [facility] [address] [place] [id number] Matt Mathews MD 05/20/2024 Orders Only [facility] [address] [place] [id number] Matt Mathews MD 05/19/2024 Orders Only [facility] [address] [place] [id number] Matt Mathews MD 05/18/2024 Orders Only [facility] [address] [place] [id number] Suly, Elvira 05/17/2024 Orders Only [facility] [address] [place] [id number] Matt Mathews MD 05/05/2024 Telephone [facility] Gastroenterology [address]th [place] [address] [place] [id number] Serena Varghese LPN 05/03/2024 Orders Only [facility] Health Information Management [address] [place] [address] Matt Mathews MD from Last 3 Months Immunizations Name Administration [...] Pericardial effusion Anemia 08/2021 Cancer (CMS/HCC) (HCC) 2017 Cataract 02/2021 Diabetes mellitus (HCC) 08/2021 Heart disease 07/2021 Hypertension 04/2021 Stroke (HCC) 10/2017 Peptic ulceration 04/2021 Mixed conductive and sensorineural hearing loss 1976 GI (gastrointestinal bleed) 04/2021 Kidney stone 2010 Family History Medical History Relation Name Comments Arthritis Father Brian hairston Hypertension Father Brian hairston Arthritis Mother Naomi marika Breast cancer Mother Naomi marika Cancer Mother Naomiritu hairston Heart attack Mother Naomi marika Heart disease Mother Naomiritu hairston Relation Name Status Comments Father Brian [...] on file Legal Sex Male 9:05 AM TWX OPERATOR Gender Identity Male 06/09/2023 11:43 AM TWX OPERATOR Sexual Orientation Straight 06/09/2023 11 :43 AM TWX OPERATOR Obstetrics History Last Filed Vital Signs Vital Sign Reading Time Taken Comments Blood Pressure 94/60 06/23/2024 10:30 AM TWX OPERATOR Pulse 80 06/23/2024 10:30 AM TWX OPERATOR Temperature 37 C (98.6 F) 06/23/2024 10:30 AM TWX OPERATOR Respiratory Rate 16 06/23/2024 10:30 AM TWX OPERATOR Oxygen Saturation 94% 06/23/2024 10:30 AM TWX OPERATOR Inhaled Oxygen Concentration - - Weight 68.6 kg (151 lb 3.2 oz) 06/23/2024 10:30 AM TWX OPERATOR Height 165.1 cm (5' 5 ) 06/23/2024 10:30 AM TWX OPERATOR Body Mass Index 25.16 06/23/2024 10:30 AM TWX OPERATOR Plan of Treatment Health Maintenance Due Date Last Done Comments Hepatitis C Screening 1971 Dilated Eye Exam 1971 Foot Exam 1971 Pneumococcal vaccine <65 (1 of 2 - PCV) 1977 Hepatitis B Screening 1989 Regular Well Visit/Exam 18-64 1989 Zoster Vaccine (1 of 2) 2021 Prostate Cancer Screening-PSA 10/19/2022 10/19/2020 Lipid Panel 07/28/2023 07/28/2022, 0810/2021, 10/19/2020, Additional history exists Albumin Creatinine Ratio, [...] Diagnosis Comments EGD Routine 07/05/2024 1:14 PM TWX OPERATOR EGFR Routine 06/23/2024 12:02 PM TWX OPERATOR Alcoholic cirrhosis of liver with ascites (CMS/HCC) (HCC) DIFFERENTIAL AUTO Routine 06/23/2024 12: 02 PM TWX OPERATOR Alcoholic cirrhosis of liver with ascites (CMS/HCC) (HCC) CBC WITH AUTO DIFFERENTIAL Routine 06/23 12:02 PM TWX OPERATOR Alcoholic cirrhosis of liver with ascites (CMS/HCC) (HCC) COMPREHENSIVE METABOLIC PANEL Routine 06/23/2024 12:02 PM TWX OPERATOR Alcoholic cirrhosis of liver with ascites (CMS/HCC) (HCC) PROTIME-INR Routine 06/23/2024 12:02 PM TWX OPERATOR Alcoholic cirrhosis of liver with ascites (CMS/HCC) (HCC) [id number], TUMOR MARKER Routine 06/23/2024 12:02 PM TWX OPERATOR Alcoholic cirrhosis of liver with ascites (CMS/HCC) (HCC) PHOSPHATIDYLETHANOL Routine 06/23/2024 1 2:02 PM TWX OPERATOR Alcoholic cirrhosis of liver with ascites (CMS/HCC) (HCC) HEMOGLOBIN A1C Routine 06/23/2024 12:02 PM TWX OPERATOR Alcoholic cirrhosis of liver with ascites (CMS/HCC) (HCC) Type 2 diabetes mellitus without complication, with long-term current use of insulin (CMS/HCC) (HCC) SCAN - RADIOLOGY/IMAGING 06/10/2024 EGD Routine 05/20/2024 12:45 PM TWX OPERATOR SCAN - RADIOLOGY/IMAGING 05/20/2024 SCAN - RADIOLOGY/IMAGING 05/19/2024 SCAN - RADIOLOGY/IMAGING 05/18/2024 SCAN - RADIOLOGY/IMAGING 05/17/2024 SCAN - RADIOLOGY/IMAGING 05/03/2024 ALBUMIN CREATININE RATIO, URINE Routine 08/15/2022 POCT LIPID PANEL Routine 07/28/2022 9:31 AM TWX OPERATOR Lipid screening HM COLONOSCOPY Routine 03/12/2022 PSA SCREEN Routine 10/19/2020 10:46 AM CDT Prostate cancer screening from Last 3 Months or Most Recently Relevant to Health Maintenance Results * EGD -[facility] (07/05/2024 1:14 PM TWX OPERATOR) Anatomical Region Laterality Modality Other us Historical Provider GI PROCEDURE ORDERABLES F inal Result * Phosphatidylethanol (06/23/2024 12:02 PM TWX OPERATOR) PHOSPHATIDYLETHANOL Negative . [facility] Comment: ADDITIONAL INFORMATION This report is intended for use in clinical monitoring and management of patients. It is not intended for use in employment-related testing. This test was developed and its performance characteristics determined by [facility] in a manner consistent with CLIA requirements. This test has not been cleared or approved by the U.S. Food and Drug Administration. Test Performed by: [facility] [address] [place] [address] On Site Wastewater Systems Technician: Smooth Goff Ph.D.; CLIA# [id number] PEth 16:0/18:1 (POPEth)by LC-MS/MS <10 Cutoff: 10 [...] well established Blood 06/23/2024 12:0 2 PM TWX OPERATOR 06/23/2024 12:16 PM TWX OPERATOR us Elan Hutchinson MD LAB BLOOD ORDERABLES Final Res ult [facility] [address] [facility]. [place] [address] [place] [facility] * (ABNORMAL) eGFR (06/23/2024 12:02 PM TWX OPERATOR) eGFR 55(L) >=60 mL/min/1. 73 m2 Comment: [...] reviewed 2021. Blood 06/23/2024 12:0 2 PM TWX OPERATOR 06/23/2024 12:16 PM TWX OPERATOR us Elan Hutchinson MD LAB BLOOD ORDERABLES Final Res ult [facility] [address] [facility]. [place] [address] * Differential, auto (06/23/2024 12:02 PM TWX OPERATOR) Neutrophil abs 4.3 1.5 - 6.5 K/cumm Imm gran abs 0.0 0.0 - 0.1 K/cumm [facility] Lymphocyte abs 0.8 0.8 - 3.3 K/cumm [facility] Monocyte abs 0.8 0.2 - 0.8 K/cumm [facility] Eosinophil abs 0.1 0.0 - 0.5 K/cumm [facility] Basophil abs 0.0 0.0 - 0.1 K/cumm [facility] Neutrophil pct 71.3 % [facility] Comment: [...] on 2017. Lymphocyte pct 13.0 % [facility] Comment: Interpretive Data Percent cell count reference ranges are not reported, since discordance with absolute values may lead to misinterpretation of CBC data. Current Interpretive Data was last revised on 2017. Monocyte pct 12.9 % [facility] Comment: Interpretive Data Percent cell count reference ranges are not reported, since discordance with absolute values may lead to misinterpretation of CBC data. Current Interpretive Data was last revised on 2017. Eosinophil pct 1.8 % [facility] Comment: Interpretive Data Percent cell count reference ranges are not reported, since discordance with absolute values may lead to misinterpretation of CBC data. Current Interpretive Data was last revised on 2017. Basophil pct 0.5 % [facility] Comment: Interpretive Data Percent cell count reference ranges are not reported, since discordance with absolute values may lead to misinterpretation of CBC data. Current Interpretive Data was last revised on 2017. Blood 06/23/2024 12:0 2 PM TWX OPERATOR 06/23/2024 12:16 PM TWX OPERATOR us Elan Hutchinson MD LAB BLOOD ORDERABLES Final Res ult [facility] [address] [facility]. [place] [address] * (ABNORMAL) CBC with auto differential (06/23/2024 12:02 PM TWX OPERATOR) WBC 6.1 3.8 - 9.9 K/cumm Hgb 12.8(L) 13.0 - 17.5 g/dL [facility] Hct 40.8 38.9 - 50.3 % [facility] Plt 99(L) 150 - 400 K/cumm [facility] MPV 10.6 9.1 - 12.3 fL [facility] RBC 4.35 4.30 - 5.80 M/cumm [facility] MCV 93.8 81.3 - 96.4 fL [facility] MCH 29.4 27.1 - 33.3 pg [facility] MCHC 31.4(L) 32.3 - 35.7 g/dL [facility] RDW CV 15.4(H) 11.1 - 14.9 % [facility] RDW SD 53.1(H) 35.7 - 48.1 fL [facility] NRBC abs 0.00 0.00 - 0.01 K/cumm [facility] Blood 06/23/2024 12:0 2 PM TWX OPERATOR 06/23/2024 12:16 PM TWX OPERATOR us Elan Hutchinson MD LAB BLOOD ORDERABLES Final Res ult [facility] [address] [facility]. Department of [employer] [place] [address] * [id number], Tumor Marker (06/23/2024 12:02 PM TWX OPERATOR) alpha Fetoprotein <1.8 <=8.3 ng/mL Comment: Interpretive [...] et al. J. Ped Surg 1978;13:155-156 Jake S. et al. Clin Chem Lab Med 2018;57:783-797 Brenden Ellsworth et al. Clin Chem 2014;[id number]. Current interpretive data was last revised 2022. Testing performed by: [facility], [address] [place] [address], [place]., [address] Blood 06/23/2024 12:0 2 PM TWX OPERATOR 06/23/2024 2:22 PM TWX OPERATOR Elan Hutchinson MD LAB BLOOD ORDERABLES Final Res ult Performing Organization Address [facility] de Phone Number [facility] [address] [facility] [employer] [place] [address] * Protime-INR (06/23/2024 12:02 PM TWX OPERATOR) PT 11.6 9.7 - 13.0 sec INR 1.07 0.90 - 1.20 [facility] Comment: Interpretive data Oral anticoagulant therapeutic ranges: Venous thromboembolism prophylaxis or treatment: 2.0-3.0 CARDIOLOGY Standard range: 2.0-3.0 High-intensity range: 2.5-3.5 Refer to indication-specific guidelines for appropriate target ranges for prosthetic heart valve replacement. Current interpretive data was last revised on 2019. Blood 06/23/2024 12:0 2 PM TWX OPERATOR 06/23/2024 12:16 PM TWX OPERATOR Elan Hutchinson MD LAB BLOOD ORDERABLES Final Res ult Performing Organization Address [facility] de Phone Number [facility] [address] [place] [address] * Hemoglobin A1c (06/23/2024 12:02 PM TWX OPERATOR) Hgb A1C 5.0 4.0 - 5.6 % Estimated Average Glucose 97 mg/dL [facility] Comment: The ADA recommends reporting an estimated Average Glucose (eAG) with all Hemoglobin A1c results using the equation derived from a study of 507 normal and diabetic adults. Minority populations were underrepresented and children were not included. (Diabetes Care 31:7052-2926, 2008). The eAG is not equivalent to a fasting glucose. Blood 06/23/2024 12:0 2 PM TWX OPERATOR 06/23/2024 12:16 PM TWX OPERATOR Elan Hutchinson MD LAB BLOOD ORDERABLES Final Res ult [facility] [address] [facility]. [place] [address] * (ABNORMAL) Comprehensive metabolic panel (06/23/2024 12:02 PM TWX OPERATOR) Sodium 136 135 - 145 mmol/L Potassium, [...] [facility] Blood 06/23/2024 12:0 2 PM TWX OPERATOR 06/23/2024 12:16 PM TWX OPERATOR Elan Hutchinson MD LAB BLOOD ORDERABLES Final Res ult [facility] [address] [facility]. [place] [address] * SCAN - RADIOLOGY/IMAGING (06/10/2024) Anatomical Region Laterality Modality Other Matt Mathews MD Final Res ult * EGD -[facility] (05/20/2024 12:45 PM TWX OPERATOR) Anatomical Region Laterality Modality Other Enrique Felix [...] * POCT lipid panel (07/28/2022 9:31 AM TWX OPERATOR) Cholesterol, POC 231 mg/dL HDL, POC 42 mg/dL Triglycerides, POC 112 mg/dL LDL Cholesterol POC 168 mg/dL Chol/HDL Ratio, POC 4.0 Non-HDL Cholesterol, POC 190 mg/dL Cholesterol Total, POC 231 mg/dL Capillary blood 07/28/2022 9 :31 AM TWX OPERATOR Anais Chowdary MD POINT OF CARE TEST O RDERABLES Edited Result - Final * HM COLONOSCOPY (03/12/2022) Historical Provider HEALTH MAINTENANCE Final Result * PSA screen (10/19/2020 10:46 AM CDT) PSA 0.2 < OR = 4.0 ng/mL [facility] Comment: The total PSA value from this assay system is standardized against the WHO standard. The test result will be approximately 20% lower when compared to the equimolar-standardized total PSA (Jass [place]). Comparison of serial PSA results should be [...] [facility] LAB BLOOD ORDERABLES Final Result [facility] [address] [address] from Last 3 Months or Most Recently Relevant to Health Maintenance Insurance [facility] MEDICARE [facility] MEDICARE [facility] Address: [address] [address] [place] [address] Care Teams Socially Responsible Investment Adviser Relationship Specialty Start Date End Date Matt Mathews MD [address] [place] [address] PCP - General Family Medicine 03/31/22 Dwight Nascimento MD Consulting Physician Internal Medicine 09/20/21
--- OUTSIDE RECORDS SUMMARY | 2024-07-29 20:14 | XMS_ITS | Referral Summary ---
Author Organization [facility] [employer] Address [address] [place] [address] Care Team Providers Care Stock Clerk Self Service Store Name Role Phone Fidel Camejo MD Primary Care Provider Source Comments [facility] [employer],non-owned Affiliates and Associated Physician Practices is amultiple site organization consisting of ambulatory clinics and hospital sitesin [place], [place], [place] and [place]. This disclosure is being madepursuant to the Care Everywhere program and may not contain all information available regarding this patient. Last updated 18.[facility] Allergies No known active allergies Medications * [...] 36.6 C (97.9 F) 07/12/2020 10:23 AM STRIP PICKER Respiratory Rate 18 11/01/2020 11:37 AM CDT Oxygen Saturation 100% 11/01/2020 11:37 AM CDT Inhaled Oxygen Concentration - - Weight 81.2 kg (179 lb) 11/01/2020 11:37 AM CDT Height 165.1 cm (5' 5 ) 07/12/2020 10:23 AM STRIP PICKER Body Mass Index 29.79 07/12/2020 10:23 AM STRIP PICKER Plan of Treatment Not on file Goals Goal Patient Goal Type Associated Problems Recent Progress Patient-Stated? Author Medication Management General On track( 021 10:36 AM STRIP PICKER) Jose Juan Prince RN Note: Expected end date: Interventions: Take all medications as prescribed Let your doctor know right away about any changes in your medications Make sure to request a refill of your medication at least one week prior to your last dose Procedures Procedure Name Priority Date/Time Associated Diagnosis Comments COMPREHENSIVE METABOLIC PANEL Routine 07/12/2020 12:54 PM STRIP PICKER Abdominal pain, unspecified abdominal location Chronic diarrhea HEPATITIS C ANTIBODY Routine 04/04/2020 1:28 PM CDT RUQ pain Abnormal finding on imaging of liver LIPID PROFILE Routine 11/09/2012 12:10 AM CDT from Last 3 Months or Most Recently Relevant to Health Maintenance Results * (ABNORMAL) COMPREHENSIVE METABOLIC PANEL (07/12/2020 12:54 PM STRIP PICKER) BUN 10 7 - 26 mg/dL 07/12/2020 2:12 PM [facility] Creatinine 0.6 0.6 - 1.2 mg/dL 07/12/2020 2:12 PM [facility] Sodium 138 136 - 145 mmol/L 07/12/2020 2:12 PM [facility] Potassium 4.2 3.5 - 4.5 mmol/L 07/12/2020 2:12 PM [facility] Chloride 103 98 - 107 mmol/L 07/12/2020 2:12 PM [facility] CO2 26 22 - 29 mmol/L 07/12/2020 2:12 PM [facility] Glucose 133(H) 70 - 115 mg/dL 07/12/2020 2:12 PM [facility] Calcium 9.1 8.4 - 10.2 mg/dL 07/12/2020 2:12 PM [facility] Protein Total 6.9 6.0 - 8.3 g/dL 07/12/2020 2:12 PM [facility] Albumin 3.8 3.4 - 5.0 g/dL 07/12/2020 2:12 PM [facility] Bilirubin Total 1.0 0.2 - 1.2 mg/dL 07/12/2020 2:12 PM [facility] Alkaline Phosphatase 178(H) 40 - 150 Units/L 07/12/2020 2:12 PM [facility] ALT 18 0 - 55 Units/L 07/12/2020 2:12 PM [facility] AST 46(H) 5 - 34 Units/L 07/12/2020 2:12 PM [facility] Anion Gap 13 8 - 18 07/12/2020 2:12 PM [facility] BUN/Creatinine Ratio 17 7 - 23 07/12/2020 2:12 PM [facility] Osmolality Calculated 287 270 - 300 mOsm/kg 07/12/2020 2:12 PM [facility] Albumin/Globulin Ratio 1.2 1.1 - 2.3 07/12/2020 2:12 PM [facility] eGFR >60 >60 mL/min/1.7 3 m2 07/12/2020 2:12 PM [facility] Blood BLOOD SPECIMEN / Unknown Lab Venipuncture / Unknown 07/12/2020 12:54 PM STRIP PICKER 07/12/2020 1:20 PM [facility] Billie Medrano MD LAB - CHEMISTRY CHERIE CABRALES [facility] Organization Address City/State/ZIP Co de Phone Number [facility] [address] [place] [address], [facility] [phone] * HEPATITIS C ANTIBODY (04/04/2020 1:28 PM CDT) Hepatitis C Antibody Non-react cathi Non-reac tive 04/04/2020 3:[address] [facility] Comment:Hepatitis C Antibody screen indicates no [...] Medrano MD LAB - CHEMISTRY CHERIE CABRALES [facility] [address] [place] [address], [facility] [phone] * (ABNORMAL) LIPID PROFILE (11/09/2012 12:10 AM CDT) Cholesterol Total 199 <200 mg/dL [facility] HDL 56 > OR = 40 mg/dL [facility] Comment: ATP III classification of HDL cholesterol: <40 mg/dL Low; considered a major risk factor >60 mg/dL High; considered a negative risk factor Triglycerides 339(H) <150 mg/dL [facility] Comment: ATP III classification of Triglycerides: < 150 mg/dL Normal triglycerides 150-199 mg/dL Borderline-high triglycerides 200-400 mg/dL High triglycerides > 500 mg/dL Very high triglycerides LDL Calculated 75 0 - 100 mg/dL [facility] Comment: ATP III classification of LDL cholesterol: <100 mg/dL Optimal 100-129 Near optimal/above optimal 130-159 Borderline high 160-189 High >190 Very high 11/09/2012 12:1 0 AM CDT 11/09/2012 12:31 AM CDT Narrative [facility] - 11/09/2012 12:19 PM CDT IS PATIENT ON HEPARIN? (Y OR N) N Paulo Nuñez MD LAB - CHEMISTRY CHERIE CABRALES Performing Organization Address City/[facility]/ZIP Co de Phone Number [facility] [address] [place], [place] [address] [phone] from Last 3 Months or Most Recently Relevant to Health Maintenance Advance Directives * Full Code (Latest Code Status on File) Date Activated Date Inactivated Comments 11/16/2018 3:08 AM 11/17/2018 7:07 PM Care Teams Stock Clerk Self Service Store Relationship Specialty Start Date End Date Fidel Camejo MD [address] [place] [phone] PCP - General Family Medicine 04/10/24
[2024-07-29 20:23] VITALS: BP 95/64; PULSE 79; RESP 17; TEMP 36.4; O2SAT 97
--- OUTSIDE RECORDS SUMMARY | 2024-07-30 00:59 | XMS_ITS | Clinical Summary ---
Author Organization [facility] [employer] Address [address] [place] [address] Care Team Providers Care Cake Icer Name Role Phone Fidel Camejo MD Primary Care Provider [phone] Source Comments [facility] [employer],non-owned Affiliates and Associated Physician Practices is amultiple site organization consisting of ambulatory clinics and hospital sitesin [place], [place], [place]. This disclosure is being madepursuant to the Care Everywhere program and may not contain all information available regarding this patient. 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 [employer] Respiratory Rate 18 11/01/2020 11:37 AM CDT Oxygen Saturation 100% 11/01/2020 11:37 AM CDT Inhaled Oxygen Concentration - - Weight 81.2 kg (179 lb) 11/01/2020 11:37 AM CDT Height 165.1 cm (5' 5 ) 07/12/2020 10:23 AM [employer] Body Mass Index 29.79 07/12/2020 10:23 AM [employer] Plan of Treatment Health Maintenance Due Date [...] Management General On track( 021 10:36 AM SUPERVISOR [employer]) No Jose Juan Dumont, RN Note: Expected end date: Interventions: Take all medications as prescribed Let your doctor know right away about any changes in your medications Make sure to request a refill of your medication at least one week prior to your last dose Procedures Procedure Name Priority Date/Time Associated Diagnosis Comments COMPREHENSIVE METABOLIC PANEL Routine 07/12/2020 12:54 PM [employer] Abdominal pain, unspecified abdominal location Chronic diarrhea HEPATITIS C ANTIBODY Routine 04/04/2020 1:28 PM CDT RUQ pain Abnormal finding on imaging of liver LIPID PROFILE Routine 11/09/2012 12:10 AM CDT from Last 3 Months or Most Recently Relevant to Health Maintenance Results * (ABNORMAL) COMPREHENSIVE METABOLIC PANEL (07/12/2020 12:54 PM [employer]) BUN 10 7 - 26 mg/dL 07/12/2020 2:12 PM [facility] Creatinine 0.6 0.6 - 1.2 mg/dL 07/12/2020 2:12 PM [facility] Sodium 138 136 - 145 mmol/L 07/12/2020 2:12 PM [facility] Potassium 4.2 3.5 - 4.5 mmol/L 07/12/2020 2:12 PM [facility] Chloride 103 98 - 107 mmol/L 07/12/2020 2:12 PM [facility] CO2 26 22 - 29 mmol/L 07/12/2020 2:12 PM [facility] Glucose 133(H) 70 - 115 mg/dL 07/12/2020 2:12 PM [facility] Calcium 9.1 8.4 - 10.2 mg/dL 07/12/2020 2:12 PM [facility] Protein Total 6.9 6.0 - 8.3 g/dL 07/12/2020 2:12 PM [facility] Albumin 3.8 3.4 - 5.0 g/dL 07/12/2020 2:12 PM [facility] Bilirubin Total 1.0 0.2 - 1.2 mg/dL 07/12/2020 2:12 PM [facility] Alkaline Phosphatase 178(H) 40 - 150 Units/L 07/12/2020 2:12 PM [facility] ALT 18 0 - 55 Units/L 07/12/2020 2:12 PM [facility] AST 46(H) 5 - 34 Units/L 07/12/2020 2:12 PM [facility] Anion Gap 13 8 - 18 07/12/2020 2:12 PM [facility] BUN/Creatinine Ratio 17 7 - 23 07/12/2020 2:12 PM [employer] [facility] Osmolality Calculated 287 270 - 300 mOsm/kg 07/12/2020 2:12 PM [facility] Albumin/Globulin Ratio 1.2 1.1 - 2.3 07/12/2020 2:12 PM [facility] eGFR >60 >60 mL/min/1.7 3 m2 07/12/2020 2:12 PM [facility] Blood BLOOD SPECIMEN / Unknown Lab Venipuncture / Unknown 07/12/2020 12:54 PM [employer] 07/12/2020 1:20 PM [employer] Billie Medrano MD LAB - CHEMISTRY CHERIE CABRALES Performing Organization Address City/[facility]/ZIP Co de Phone Number [address] [address], [facility] [phone] * HEPATITIS C ANTIBODY (04/04/2020 1:28 PM CDT) Pathologist [facility] Hepatitis C Antibody Non-react cathi Non-reac tive 04/04/2020 3:27 PM CDT [facility] Comment:Hepatitis C Antibody screen indicates no [...] Medrano MD LAB - CHEMISTRY CHERIE CABRALES [address] [address], [place] [phone] * (ABNORMAL) LIPID PROFILE (11/09/2012 12:10 AM CDT) Cholesterol Total 199 <200 mg/dL [facility] HDL 56 > OR = 40 mg/dL [facility] Comment: ATP III classification of HDL cholesterol: <40 mg/dL Low; considered a major risk factor >60 mg/dL High; considered a negative risk factor Triglycerides 339(H) <150 mg/dL [facility] Comment: ATP III classification of Triglycerides: < 150 mg/dL Normal triglycerides 150-199 mg/dL Borderline-high triglycerides 200-400 mg/dL High triglycerides > 500 mg/dL Very high triglycerides LDL Calculated 75 0 - 100 mg/dL [facility] Comment: ATP III classification of LDL cholesterol: <100 mg/dL Optimal 100-129 Near optimal/above optimal 130-159 Borderline high 160-189 High >190 Very high 11/09/2012 12:1 0 AM CDT 11/09/2012 12:31 AM CDT Narrative [facility] - 11/09/2012 12:19 PM CDT IS PATIENT ON HEPARIN? (Y OR N) N Paulo Nuñez MD LAB - CHEMISTRY CHERIE CABRALES [facility] Organization Address City/State/[facility] Co de Phone Number [facility] [address] [phone] from Last 3 Months or Most Recently Relevant to Health Maintenance Advance Directives * Full Code (Latest Code Status on File) Date Activated Date Inactivated Comments 11/16/2018 3:08 AM 11/17/2018 7:07 PM Care Teams Cake Icer Relationship Specialty Start Date End Date Fidel Camejo MD [address] [place] [phone] PCP - General Family Medicine 04/10/24
--- OUTSIDE RECORDS SUMMARY | 2024-07-30 00:59 | XMS_ITS | Referral Summary ---
Author Organization [facility] Address [address] [facility] [place] [address] Care Team Providers Care Senior Teller Name Role Phone Fidel Camejo MD Primary Care Provider Source Comments [facility],non-owned Affiliates and Associated Physician Practices is amultiple site organization consisting of ambulatory clinics and hospital sitesin [place], [place], [place] and [place]. This disclosure is being madepursuant to the Care Everywhere program and may not contain all information available regarding this patient. Last updated 18.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 Author Medication Management General On track( 021 10:36 AM WEAVER APPRENTICE) Jose Juan Prince RN Note: Expected end date: Interventions: Take all medications as prescribed Let your doctor know right away about any changes in your medications Make sure to request a refill of your medication at least one week prior to your last dose Procedures Procedure Name Priority Date/Time Associated Diagnosis Comments COMPREHENSIVE METABOLIC PANEL Routine 07/12/2020 12:54 PM WEAVER APPRENTICE Abdominal pain, unspecified abdominal location Chronic diarrhea HEPATITIS C ANTIBODY Routine 04/04/2020 1:28 PM CDT RUQ pain Abnormal finding on imaging of liver LIPID PROFILE Routine 11/09/2012 12:10 AM CDT from Last 3 Months or Most Recently Relevant to Health Maintenance Results * (ABNORMAL) COMPREHENSIVE METABOLIC PANEL (07/12/2020 12:54 PM WEAVER APPRENTICE) BUN 10 7 - 26 mg/dL 07/12/2020 2:12 PM [facility] Creatinine 0.6 0.6 - 1.2 mg/dL 07/12/2020 2:12 PM [facility] Sodium 138 136 - 145 mmol/L 07/12/2020 2:12 PM [facility] Potassium 4.2 3.5 - 4.5 mmol/L 07/12/2020 2:12 PM [facility] Chloride 103 98 - 107 mmol/L 07/12/2020 2:12 PM [facility] CO2 26 22 - 29 mmol/L 07/12/2020 2:12 PM [facility] Glucose 133(H) 70 - 115 mg/dL 07/12/2020 2:12 PM [facility] Calcium 9.1 8.4 - 10.2 mg/dL 07/12/2020 2:12 PM [facility] Protein Total 6.9 6.0 - 8.3 g/dL 07/12/2020 2:12 PM [facility] Albumin 3.8 3.4 - 5.0 g/dL [...] 17 7 - 23 07/12/2020 2:12 PM [facility] Osmolality Calculated 287 270 - 300 mOsm/kg 07/12/2020 2:12 PM [facility] Albumin/Globulin Ratio 1.2 1.1 - 2.3 07/12/2020 2:12 PM [facility] eGFR >60 >60 mL/min/1.7 3 m2 07/12/2020 2:12 PM [facility] Blood BLOOD SPECIMEN / Unknown Lab Venipuncture / Unknown 07/12/2020 12:54 PM WEAVER APPRENTICE 07/12/2020 1:20 PM [facility] Billie Medrano MD LAB - CHEMISTRY CHERIE CABRALES [facility] Organization Address City/State/ZIP Co de Phone Number [facility] [address] [place] [address], [facility] [phone] * HEPATITIS C ANTIBODY (04/04/2020 1:28 PM CDT) Hepatitis C Antibody Non-react cathi Non-reac tive 04/04/2020 3:27 PM CDT [facility] Comment:Hepatitis C Antibody screen indicates no [...] Medrano MD LAB - CHEMISTRY CHERIE CABRALES [facility] [address] [place] [address], [facility] [phone] * (ABNORMAL) LIPID PROFILE (11/09/2012 12:10 AM CDT) Cholesterol Total 199 <200 mg/dL [facility] HDL 56 > OR = 40 mg/dL [facility] Comment: ATP III classification of HDL cholesterol: <40 mg/dL Low; considered a major risk factor >60 mg/dL High; considered a negative risk factor Triglycerides 339(H) <150 mg/dL [facility] Comment: ATP III classification of Triglycerides: < 150 mg/dL Normal triglycerides 150-199 mg/dL Borderline-high triglycerides 200-400 mg/dL High triglycerides > 500 mg/dL Very high triglycerides LDL Calculated 75 0 - 100 mg/dL [facility] Comment: ATP III classification of LDL cholesterol: <100 mg/dL Optimal 100-129 Near optimal/above optimal 130-159 Borderline high 160-189 High >190 Very high 11/09/2012 12:1 0 AM CDT 11/09/2012 12:31 AM CDT Narrative [facility] - 11/09/2012 12:19 PM CDT IS PATIENT ON HEPARIN? (Y OR N) N Paulo Nuñez MD LAB - CHEMISTRY CHERIE CABRALES Performing Organization Address City/[facility]/ZIP Co de Phone Number [facility] [address] [place], [place] [address] [phone] from Last 3 Months or Most Recently Relevant to Health Maintenance Advance Directives * Full Code (Latest Code Status on File) Date Activated Date Inactivated Comments 11/16/2018 3:08 AM 11/17/2018 7:07 PM Care Teams Senior Teller Relationship Specialty Start Date End Date Fidel Camejo MD [address] [place] [phone] PCP - General Family Medicine 04/10/24
--- OUTSIDE RECORDS SUMMARY | 2024-07-30 00:59 | XMS_ITS | Referral Summary ---
Author Organization [facility] [place] [address] Address [address] [place] [address] Care Team Providers Care Senior Branch Manager Name Role Phone Dwight Nascimento MD Unavailable Matt Mathews MD Primary Care Provider [phone] Encounters Date Type Department Care Team Description 07/01/2024 Telephone [facility] [address] [facility] 12th [place] [address] [place] [address] Nancy Christensen 06/29/2024 Telephone [facility] [address] [facility] 12th [place] [address] [place] [address] Julissa Molina LPN 06/23/2024 11:55 AM LINER HELPER Lab [facility] [address] [place] [address] Alcoholic cirrhosis of liver with ascites (CMS/HCC) (HCC); Type 2 diabetes mellitus without complication, with long-term current use of insulin (CMS/HCC) (HCC) 06/23/2024 9:40 AM LINER HELPER Office Visit [facility] [address] [facility] [address] [place] [address] Elan Hutchinson MD Alcoholic cirrhosis of liver with ascites (CMS/HCC) (HCC) (Primary Dx); Type 2 diabetes mellitus without complication, with long-term current use of insulin (CMS/HCC) (HCC); Alcohol use disorder; Hepatic encephalopathy (HCC) 06/10/2024 Orders Only [facility] [address] [place] [phone] Matt Mathews MD 05/20/2024 Orders Only [facility] Information Management [address] [place] [address] Matt Mathews MD 05/19/2024 Orders Only [facility] Information Management [address] [place] [address] Matt Mathews MD 05/18/2024 Orders Only [facility] Information Management [address] [place] [phone] Scanning, Provider 05/17/2024 Orders Only [facility] Information Management [address] [place] [phone] Matt Mathews MD 05/05/2024 Telephone [facility] 12th [place] [address] [place] [address] Serena Varghese LPN 05/03/2024 Orders Only [facility] [place] [place] Health Information Management [address] [place] [address] Matt Mathews MD from Last 3 Months [...] a day 240 tablet 3 3 Active Yieldruch Ultra Test strip CHECK 2-3 TIMES DAILY 2 Active blood-glucose meter (Yieldruch Ultra2 Meter) misc CHECK 2-3 TIMES PER DAY 2 Active cyclobenzaprine (FLEXERIL) 10 mg tablet Take 1 tablet (10 mg total) by mouth 3 (three) times a day as needed for muscle spasms 3 Active empagliflozin (Jardiance) 10 mg tablet Take 1 tablet (10 mg total) by mouth daily 2 Active lancets (OmmvenTouch Delica Plus Lancet) 30 gauge misc CHECK [...] 08/18/2022 Assessment & Plan (08/18/2022 1:51 PM LINER HELPER): Patient reports decreased edema; low continues to [...] 04/29/2022 Assessment & Plan (04/29/2022 1:45 PM LINER HELPER): To hospital for severe pain and diarrhea; [...] 09/22/2021 Assessment & Plan (07/10/2022 12:41 PM LINER HELPER): Continues to be present, causing pain and [...] medication Assessment & Plan (07/29/2022 2:02 PM LINER HELPER): Patient reports generally improved pain management, though decreased response to 5 mg of oxycodone; discussed with patient metabolism pathway limits use of hydrocodone due to risk of overdose and accumulation of metabolites Will increase oxycodone at next refill Assessment & Plan (06/13/2021 10:19 AM LINER HELPER): Patient was advised given concern for an incarcerated umbilical hernia to report to the er now. He is going to [place]. He was asked to contact the office [...] outcome. Assessment & Plan (06/03/2021 6:29 PM LINER HELPER): Patient continues to complain of jeovany-umbilical abdominal pain and is requesting continued refills of Tramadol. When asked how many he had left he states he ran out of them a week ago -- He was just given #12 on 05/13 upon discharge from [facility]. Today is 05/22 so if he ran [...] 7:11 PM CDT): Still awaiting records from [facility] regarding the Cardiology evaluation of the pericardial [...] MEL. Assessment & Plan (06/03/2021 6:10 PM LINER HELPER): Positive MEL. Per Rheumatology evaluation there is no rheumatologic cause for his symptoms as he does not have any clinical features of rheumatologic connective tissues disease at this time. Hence none of his pain is related to an autoimmune condition at this point. Assessment & Plan (01/27/2021 10:05 PM CDT): Awaiting recommendation from [facility] Rheum. Has Oct appointment Assessment & [...] management Assessment & Plan (06/03/2021 6:10 PM LINER HELPER): Chronic wedge compression fracture at T11. Patient [...] No hx of HE/jaundice. MRCP 05/2020 at [facility] with cirrhosis/hepatic steatosis, 1.8 cm arterially enhancing observation without washout in segment 5 (LR-3). Labs at [facility] with +ve MEL 1:1280 but -ve AMA/ASMA, normal total IGG, normal ceruloplasmin/A1AT/HFE gene analysis despite elevated ferritin. AFP 4.6 in 03/2020. Hepatitis panel -ve (non-immune to Hep B). Labs 10/2020 with normal AST/ALT, TB 0.4, AKP 138, SCr 0.78, plts 120s, Na 139, INR 1.1 in 06/2020, MELD 7. Last drink 12/2020. Has developed bleeding EV requiring banding x 2 done locally at [facility] in [place], based on OSH records 1 EGD was [...] paracentesis Assessment & Plan (08/18/2022 1:49 PM LINER HELPER): Not well controlled, patient had 5 L removed by paracentesis 1 week ago; is already refilled with ascitic fluid Patient to follow-up with cardiology on will likely need standing order for paracentesis Continue furosemide 80 mg b.i.d., spironolactone 100 mg daily Complicated by worsening peripheral edema Patient to follow-up with hepatology at end of week Assessment & Plan (08/04/2022 10:04 AM LINER HELPER): Not well controlled; continues to have significant [...] site Assessment & Plan (07/29/2022 2:01 PM LINER HELPER): Not well controlled, worsening; patient has recurrent [...] NAFLD Assessment & Plan (07/10/2022 12:43 PM LINER HELPER): Admitted for EGD with banding, required 3 [...] 10:13 AM CDT): Continue per GI at [facility] for his cirrhosis. Stressed importance of following up on a regular basis due his progressive disease. Assessment & Plan (09/15/2021 8:39 PM CDT): Continue per hepatology at [facility] Assessment & Plan (06/03/2021 6:09 PM LINER HELPER): Continue her GI at [facility], Dr. Jasso. He has been started on new medication to help decrease the ascites buildup. Encouraged him to follow their directions and keep his appointments. Strongly encouraged complete cessation of alcohol. I reviewed the lab results regarding alcohol use. He still adamant that he has not drank since his 51th birthday. Assessment & Plan (05/14/2021 12:07 PM LINER HELPER): - MELD labs today, and repeat autoimmune [...] followup with local GI. Await recommendation from [facility] hepatology Assessment & Plan (12/12/2020 6:56 [...] Patient would like to be referred to [place] to see the hepatology group therefore continuity of care a since they are part of the [facility] system and can share medical records. Will make that referral Assessment & Plan (12/02/2020 10:30 AM CDT): Per GI note, unknown etiology of the cirrhosis/ascites. However, I have placed a call to Dr. Rodriguez, Attending GI at [facility] to discuss his recent labs, most importantly the positive MEL at 1:1280. I left a message on 11/20 and will await return call. I have concern for possible autoimmune hepatitis as the underlying cause. Patient appears to have increased ascites over the past few weeks. Increased pain. Increased orthopnea. Will check abdominal US at [facility] (patient to schedule on own as order and phone number provided). If has acute increase in sxs, encouraged to present to [facility] ER for further evaluation so GI/heapatology group can evaluate. He would like to transfer care to [facility]. Tramadol a few times a day is managing pain. Monitor closely Dr. Gordon, elementary special education teacher at [facility] returned my call on Thursday, November 23. [...] PM CDT): Stressed importance of followup with elementary special education teacher. He states he has followup with Dr. Medrano at [facility] at the end of October and next week with Dr. Claros. He is having daily pain. Attempted to contact Dr Claros. Multiple messages left with staff and call not returned. Will await recommendations from Dr. Medrano. Discussed referral to [facility] elementary special education teacher --- patient has a family member in [...] diet Assessment & Plan (07/10/2022 12:44 PM LINER HELPER): Not well controlled, has been on insulin [...] 05/22/20212021 Assessment & Plan (05/22/2021 10:54 AM LINER HELPER): Obesity is unchanged. Discussed the patient's BMI. The BMI is above average. BMI management plan is completed. BMI Follow-up includes: nutrition counseling, exercise counseling and education provided. BMI 31.0-31.9,adult 05/22/2021 08/29/19 Assessment & Plan (05/22/2021 10:54 AM LINER HELPER): Obesity is unchanged. Discussed the patient's BMI. [...] on file Legal Sex Male 9:05 AM LINER HELPER Gender Identity Male 06/09/2023 11:43 AM LINER HELPER Sexual Orientation Straight 06/09/2023 11 :43 AM LINER HELPER Last Filed Vital Signs Vital Sign Reading Time Taken Comments Blood Pressure 94/60 06/23/2024 10:30 AM LINER HELPER Pulse 80 06/23/2024 10:30 AM LINER HELPER Temperature 37 C (98.6 F) 06/23/2024 10:30 AM LINER HELPER Respiratory Rate 16 06/23/2024 10:30 AM LINER HELPER Oxygen Saturation 94% 06/23/2024 10:30 AM LINER HELPER Inhaled Oxygen Concentration - - Weight 68.6 kg (151 lb 3.2 oz) 06/23/2024 10:30 AM LINER HELPER Height 165.1 cm (5' 5 ) 06/23/2024 10:30 AM LINER HELPER Body Mass Index 25.16 06/23/2024 10:30 AM LINER HELPER Plan of Treatment Not on file Procedures Procedure Name Priority Date/Time Associated Diagnosis Comments EGD Routine 07/05/2024 1:14 PM LINER HELPER EGFR Routine 06/23/2024 12:02 PM LINER HELPER Alcoholic cirrhosis of liver with ascites (CMS/HCC) (HCC) DIFFERENTIAL AUTO Routine 06/23/2024 12: 02 PM LINER HELPER Alcoholic cirrhosis of liver with ascites (CMS/HCC) (HCC) CBC WITH AUTO DIFFERENTIAL Routine 06/23 12:02 PM LINER HELPER Alcoholic cirrhosis of liver with ascites (CMS/HCC) (HCC) COMPREHENSIVE METABOLIC PANEL Routine 06/23/2024 12:02 PM LINER HELPER Alcoholic cirrhosis of liver with ascites (CMS/HCC) (HCC) PROTIME-INR Routine 06/23/2024 12:02 PM LINER HELPER Alcoholic cirrhosis of liver with ascites (CMS/HCC) (HCC) [id number], TUMOR MARKER Routine 06/23/2024 12:02 PM LINER HELPER Alcoholic cirrhosis of liver with ascites (CMS/HCC) (HCC) PHOSPHATIDYLETHANOL Routine 06/23/2024 1 2:02 PM LINER HELPER Alcoholic cirrhosis of liver with ascites (CMS/HCC) (HCC) HEMOGLOBIN A1C Routine 06/23/2024 12:02 PM LINER HELPER Alcoholic cirrhosis of liver with ascites (CMS/HCC) (HCC) Type 2 diabetes mellitus without complication, with long-term current use of insulin (CMS/HCC) (HCC) SCAN - RADIOLOGY/IMAGING 06/10/2024 EGD Routine 05/20/2024 12:45 PM LINER HELPER SCAN - RADIOLOGY/IMAGING 05/20/2024 SCAN - RADIOLOGY/IMAGING 05/19/2024 SCAN - RADIOLOGY/IMAGING 05/18/2024 SCAN - RADIOLOGY/IMAGING 05/17/2024 SCAN - RADIOLOGY/IMAGING 05/03/2024 ALBUMIN CREATININE RATIO, URINE Routine 08/15/2022 POCT LIPID PANEL Routine 07/28/2022 9:31 AM LINER HELPER Lipid screening HM COLONOSCOPY Routine 03/12/2022 PSA SCREEN Routine 10/19/2020 10:46 AM CDT Prostate cancer screening from Last 3 Months or Most Recently Relevant to Health Maintenance Results * EGD -[facility] Medical Group (07/05/2024 1:14 PM LINER HELPER) Anatomical Region Laterality Modality Other us Historical Provider GI PROCEDURE ORDERABLES F inal Result * Phosphatidylethanol (06/23/2024 12:02 PM LINER HELPER) PHOSPHATIDYLETHANOL Negative . [facility] Comment: ADDITIONAL INFORMATION This report is intended for use in clinical monitoring and management of patients. It is not intended for use in employment-related testing. This test was developed and its performance characteristics determined by [facility] in a manner consistent with CLIA requirements. This test has not been cleared or approved by the U.S. Food and Drug Administration. Test Performed by: [facility] [address] [place] [address] Analytical Manager: Smooth Goff Ph.D.; CLIA# [id number] PEth 16:0/18:1 (POPEth)by LC-MS/MS <10 Cutoff: 10 [...] well established Blood 06/23/2024 12:0 2 PM LINER HELPER 06/23/2024 12:16 PM LINER HELPER us Elan Hutchinson MD LAB BLOOD ORDERABLES Final Res ult [facility] [address] [facility]. Department [place] [address] [facility] * (ABNORMAL) eGFR (06/23/2024 12:02 PM LINER HELPER) eGFR 55(L) >=60 mL/min/1. 73 m2 Comment: [...] reviewed 2021. Blood 06/23/2024 12:0 2 PM LINER HELPER 06/23/2024 12:16 PM LINER HELPER us Elan Hutchinson MD LAB BLOOD ORDERABLES Final Res ult [facility] [address] [facility]. Department of [place] [address] * Differential, auto (06/23/2024 12:02 PM LINER HELPER) Neutrophil abs 4.3 1.5 - 6.5 K/cumm [...] revised on 2017. Monocyte pct 12.9 % [facility] Comment: Interpretive Data Percent cell count reference ranges are not reported, since discordance with absolute values may lead to misinterpretation of CBC data. Current Interpretive Data was last revised on 2017. Eosinophil pct 1.8 % [facility] Comment: Interpretive Data Percent cell count reference ranges are not reported, since discordance with absolute values may lead to misinterpretation of CBC data. Current Interpretive Data was last revised on 2017. Basophil pct 0.5 % [facility] Comment: Interpretive Data Percent cell count reference ranges are not reported, since discordance with absolute values may lead to misinterpretation of CBC data. Current Interpretive Data was last revised on 2017. Blood 06/23/2024 12:0 2 PM LINER HELPER 06/23/2024 12:16 PM LINER HELPER us Elan Hutchinson MD LAB BLOOD ORDERABLES Final Res ult [facility] [address] [facility]. Department [place] [address] * (ABNORMAL) CBC with auto differential (06/23/2024 12:02 PM LINER HELPER) WBC 6.1 3.8 - 9.9 K/cumm Hgb 12.8(L) 13.0 - 17.5 g/dL [facility] Hct 40.8 38.9 - 50.3 % [facility] Plt 99(L) 150 - 400 K/cumm [facility] MPV 10.6 9.1 - 12.3 fL [facility] RBC 4.35 4.30 - 5.80 M/cumm [facility] MCV 93.8 81.3 - 96.4 fL [facility] MCH 29.4 27.1 - 33.3 pg [facility] MCHC 31.4(L) 32.3 - 35.7 g/dL [facility] RDW CV 15.4(H) 11.1 - 14.9 % [facility] RDW SD 53.1(H) 35.7 - 48.1 fL [facility] NRBC abs 0.00 0.00 - 0.01 K/cumm [facility] Blood 06/23/2024 12:0 2 PM LINER HELPER 06/23/2024 12:16 PM LINER HELPER Elan Hutchinson MD LAB BLOOD ORDERABLES Final Res ult Performing Organization Address [facility] de Phone Number [facility] [address] [address] [employer] [place] [address] * [id number], Tumor Marker (06/23/2024 12:02 PM LINER HELPER) alpha Fetoprotein <1.8 <=8.3 ng/mL Comment: Interpretive [...] 2018;[id number]:[id number] Brenden Ellsworth et al. Clin Chem 2014;2266-2462. Current interpretive data was last revised 2022. Testing performed by: [facility], [address] [place] [address]., [address] Blood 06/23/2024 12:0 2 PM LINER HELPER 06/23/2024 2:22 PM LINER HELPER Elan Hutchinson MD LAB BLOOD ORDERABLES Final Res ult Performing Organization Address [facility] Co de Phone Number [facility] [id number] [address] [facility] [place] [address] * Protime-INR (06/23/2024 12:02 PM LINER HELPER) PT 11.6 9.7 - 13.0 sec INR 1.07 0.90 - 1.20 [facility] Comment: Interpretive data Oral anticoagulant therapeutic ranges: Venous thromboembolism prophylaxis or treatment: 2.0-3.0 CARDIOLOGY Standard range: 2.0-3.0 High-intensity range: 2.5-3.5 Refer to indication-specific guidelines for appropriate target ranges for prosthetic heart valve replacement. Current interpretive data was last revised on 2019. Blood 06/23/2024 12:0 2 PM LINER HELPER 06/23/2024 12:16 PM LINER HELPER Elan Hutchinson MD LAB BLOOD ORDERABLES Final Res t Performing Organization Address [facility] de Phone Number [facility] [address] [facility] [place], [place] [id number] * Hemoglobin A1c (06/23/2024 12:02 PM LINER HELPER) Pathologist [facility] Hgb A1C 5.0 4.0 - 5.6 % Estimated Average Glucose 97 mg/dL [facility] Comment: The ADA recommends reporting an estimated Average Glucose (eAG) with all Hemoglobin A1c results using the equation derived from a study of 507 normal and diabetic adults. Minority populations were underrepresented and children were not included. (Diabetes Care 31:9319-6881, 2008). The eAG is not equivalent to a fasting glucose. Blood 06/23/2024 12:0 2 PM LINER HELPER 06/23/2024 12:16 PM LINER HELPER Elan Hutchinson MD LAB BLOOD ORDERABLES Final Res ult Performing Organization Address [facility] Co de Phone Number [facility] [address] [facility] [place], [place] [id number] * (ABNORMAL) Comprehensive metabolic panel (06/23/2024 12:02 PM LINER HELPER) Pathologist [facility] Sodium 136 135 - 145 mmol/L Potassium, [...] [facility] Blood 06/23/2024 12:0 2 PM LINER HELPER 06/23/2024 12:16 PM LINER HELPER Elan Hutchinson MD LAB BLOOD ORDERABLES Final Res ult [facility] [address] [facility]. Department [place] [address] * SCAN - RADIOLOGY/IMAGING (06/10/2024) Anatomical Region Laterality Modality Other Matt Mathews MD Final Res ult * EGD -[facility] Medical Group (05/20/2024 12:45 PM LINER HELPER) Anatomical Region Laterality Modality Other Result [facility] Enrique Felix MD GI PROCEDURE ORDERABLES F inal Result * SCAN - RADIOLOGY/IMAGING (05/20/2024) Anatomical Region Laterality Modality Other Matt Mathews MD Final Res ult * SCAN - RADIOLOGY/IMAGING (05/19/2024) Anatomical Region Laterality Modality Other Result [facility] Matt Mathews MD Final Res ult * SCAN - RADIOLOGY/IMAGING (05/18/2024) Anatomical Region Laterality Modality Other Result [facility] Provider Scanning Final Result * SCAN - RADIOLOGY/IMAGING (05/17/2024) Anatomical Region Laterality Modality Other Matt Mathews MD Final Res ult * SCAN - RADIOLOGY/IMAGING (05/03/2024) Anatomical Region Laterality Modality Other Result [facility] Matt Mathews MD Final Res ult * Albumin Creatinine Ratio, Urine (08/15/2022) Urine Result [facility] Matt Mathews MD LAB URINE ORDERABLES Amanda l Result * POCT lipid panel (07/28/2022 9:31 AM LINER HELPER) Cholesterol, POC 231 mg/dL HDL, POC 42 mg/dL Triglycerides, POC 112 mg/dL LDL Cholesterol POC 168 mg/dL Chol/HDL Ratio, POC 4.0 Non-HDL Cholesterol, POC 190 mg/dL Cholesterol Total, POC 231 mg/dL Capillary blood 07/28/2022 9 :31 AM LINER HELPER Result [facility] Anais Chowdary MD POINT OF CARE TEST O RDERABLES Edited Result - Final * HM COLONOSCOPY (03/12/2022) Historical Provider HEALTH MAINTENANCE Final Result * PSA screen (10/19/2020 10:46 AM CDT) PSA 0.2 < OR = 4.0 ng/mL [facility] Comment: The total PSA value from [...] BORRERO LAB BLOOD ORDERABLES Final Result [facility] [address] [place] [address] from Last 3 Months or Most Recently Relevant to Health Maintenance Insurance [facility] MEDICARE [facility] MEDICARE [facility] Address: [address] [address] [place] [address] Care Teams Senior Branch Manager Relationship Specialty Start Date End Date Matt Mathews MD [address] [place] [address] PCP - General Family Medicine 03/31/22 Dwight Nascimento MD Consulting Physician Internal Medicine 09/20/21
--- OUTSIDE RECORDS SUMMARY | 2024-07-30 00:59 | XMS_ITS | Encounter Summary ---
Author Organization [facility] Address [address] [place] [address] Phone Care Team Providers Care Brand Executive Name Role Phone Dwight Nascimento MD Unavailable Matt Mathews MD Primary Care Provider [phone] Encounter Details Date Type Department Care Team [...] on file Legal Sex Male 9:05 AM BARREL RACER Gender Identity Male 06/09/2023 11:43 AM BARREL RACER Sexual Orientation Straight 06/09/2023 11 :43 AM BARREL RACER documented as of this encounter Plan of Treatment Not on file documented as of this encounter Procedures Procedure Name Priority Date/Time Associated Diagnosis Comments SCAN - LABS 04/08/2024 documented in this encounter Results * SCAN - LABS (04/08/2024) us Provider Scanning Final Result documented in this encounter Visit Diagnoses Not on filedocumented in this encounter Care Teams Brand Executive Relationship Specialty Start Date End Date Matt Mathews MD [address] [place] [address] PCP - General Family Medicine 03/31/22 Dwight Nascimento MD Consulting Physician Internal Medicine 09/20/21 documented as of this encounter
--- OUTSIDE RECORDS SUMMARY | 2024-07-30 00:59 | XMS_ITS | Encounter Summary ---
Author Organization [facility] Address [address] [place] [address] Phone Care Team Providers Care Manager Of Compliance Name Role Phone Dwight Nascimento MD Unavailable Matt Mathews MD Primary Care Provider [phone] Encounter Details Date Type Department Care Team [...] on file Legal Sex Male 9:05 AM NATIONAL ACCOUNTS RECRUITER Gender Identity Male 06/09/2023 11:43 AM NATIONAL ACCOUNTS RECRUITER Sexual Orientation Straight 06/09/2023 11 :43 AM NATIONAL ACCOUNTS RECRUITER documented as of this encounter Plan of Treatment Not on file documented as of this encounter Procedures Procedure Name Priority Date/Time Associated Diagnosis Comments SCAN - LABS 04/11/2024 documented in this encounter Results * SCAN - LABS (04/11/2024) us Provider Scanning Final Result documented in this encounter Visit Diagnoses Not on filedocumented in this encounter Care Teams Manager Of Compliance Relationship Specialty Start Date End Date Matt Mathews MD [address] [place] [address] PCP - General Family Medicine 03/31/22 Dwight Nascimento MD Consulting Physician Internal Medicine 09/20/21 documented as of this encounter
--- OUTSIDE RECORDS SUMMARY | 2024-07-30 00:59 | XMS_ITS | Patient Health Summary ---
Author Organization [facility] Address [address] [facility] [place] [address] Care Team Providers Care Otr Flatbed Driver Name Role Phone Fidel Camejo MD Primary Care Provider Note from [facility],non-owned Affiliates and Associated Physician Practices is amultiple site organization consisting of ambulatory clinics and hospital sitesin [place], [place], [place] and [place]. This disclosure is being madepursuant to the Care Everywhere program and may not contain all information available regarding this patient. Last updated 18.[facility] Allergies No known active allergies Medications * [...] 36.6 C (97.9 F) 07/12/2020 10:23 AM CIVIL CLERK Respiratory Rate 18 11/01/2020 11:37 AM CDT Oxygen Saturation 100% 11/01/2020 11:37 AM CDT Inhaled Oxygen Concentration - - Weight 81.2 kg (179 lb) 11/01/2020 11:37 AM CDT Height 165.1 cm (5' 5 ) 07/12/2020 10:23 AM CIVIL CLERK Body Mass Index 29.79 07/12/2020 10:23 AM CIVIL CLERK Procedures * PT-INR SLH(Performed 07/12/2020) Performed for [...] Abnormal finding on imaging of liver * [id number] BLOOD PHENOTYPING PANEL(Performed 04/04/2020) Performed for RUQ [...] Results * PT-INR [facility] (07/12/2020 12:54 PM CIVIL CLERK) Only the most recent of3 resultswithin the time period is included. PT 13.5 12.1 - 14.8 Seconds 07/12/2020 1:34 PM CIVIL CLERK [facility] INR 1.1 See Comment 07/12/2020 1:34 PM CIVIL CLERK [facility] Comment:The suggested therap eutic range for standard coumadin (warfarin) therapy is an INR of 2.0-3.0. For high-risk patients (Mechanical Mitral Valve Prosthesis, etc.), the suggested prophylactic therapeutic range is an INR of 2.5-3.5. Blood BLOOD SPECIMEN / Unknown Lab Venipuncture / Unknown 07/12/2020 12:54 PM CIVIL CLERK 07/12/2020 1:24 PM CIVIL CLERK Billie Medrano MD LAB - COAGULATION OR DERABLES [facility] [address] [place] [address], [facility] [phone] * CELIAC DISEASE PROFILE W RFLX (07/12/2020 12:54 PM CIVIL CLERK) Endomysial Antibody IgA Negative Negative 07/13/2020 6:07 PM CIVIL CLERK [facility] ([facility]) TTG Antibody IgA <2 0 - 3 U/mL 07/13/19 21 6:07 PM [facility] ([facility]) Comment: Negative 0 - 3 Weak Positive 4 - 10 Positive >10 Tissue Transglutaminase (tTG) has been identified as the endomysial antigen. Studies have demonstr- ated that endomysial IgA antibodies have over 99% specificity for gluten sensitive enteropathy. IgA Quantitative 371 90 - 386 mg/dL 07/13/2020 6:07 PM [facility] ([facility]) Blood BLOOD SPECIMEN / Unknown Lab Venipuncture / Unknown 07/12/2020 12:54 PM CIVIL CLERK 07/12/2020 1:39 PM CIVIL CLERK Narrative [facility] ([facility]) - 07/13/2020 6:07 PM CIVIL CLERK Performed at: [facility] [address] [id number] Patient Transport Orderly: Lucho Tyler PhD, Phone: [phone] Billie Medrano MD LAB - CHEMISTRY CHERIE CABRALES [facility] ([facility]) [address] [place] [address], [facility] * (ABNORMAL) CBC WITH DIFFERENTIAL (07/12/2020 12:54 PM CIVIL CLERK) Only the most recent of5 resultswithin the time period is included. WBC 4.1 3.5 - 10.5 10 3/uL 07/12/2020 1:35 PM [facility] RBC 5.06 4.30 - 5.70 10 6/uL 07/12/2020 1:35 PM [facility] Hemoglobin 15.8 13.5 - 17.5 g/dL 07/12/2020 1:35 PM [facility] Hematocrit 48.1 39.0 - 50.0 % 07/12/2020 1:35 PM [facility] MCV 95.1 81.0 - 97.0 fL 07/12/2020 1:35 PM [facility] MCH 31.2 28.0 - 34.0 pg 07/12/2020 1:35 PM [facility] MCHC 32.8 32.0 - 36.0 g/dL 07/12/2020 1:35 PM [facility] Platelet Count 105(L) 150 - 400 10 3/uL 07/12/2020 1:35 PM [facility] RDW-SD 46.6 36.0 - 50.0 fL 07/12/2020 1:35 PM [facility] RDW-CV 13.2 11.2 - 14.8 % 07/12/2020 1:35 PM [facility] MPV 10.3 9.3 - 12.8 fL 07/12/2020 1:35 PM [facility] nRBC Absolute 0.00 0 10 3/uL 07/12/2020 1:35 PM [facility] nRBC Auto 0.0 0 /100 WBC 07/12/2020 1:35 PM [facility] Neutrophils % 63.0 35.0 - 70.0 % 07/12/2020 1:35 PM [facility] Lymphocytes % 25.4 19.7 - 55.1 % 07/12/2020 1:35 PM [facility] Monocytes % 9.6 3.0 - 15.0 % 07/12/2020 1:35 PM [facility] Eosinophils % 1.0 0.0 - 6.0 % 07/12/2020 1:35 PM [facility] Basophil % 0.5 0.0 - 1.5 % 07/12/2020 1:35 PM [facility] Neutrophils Absolute 2.6 1.6 - 7.0 10 3/uL 07/12/2020 1:35 PM [facility] Lymphocyte Absolute 1.0 0.8 - 2.9 10 3/uL 07/12/2020 1:35 PM [facility] Monocytes Absolute 0.39 0.14 - 0.66 10 3/uL 07/12/2020 1:35 PM [facility] Eosinophils Absolute 0.04 0.00 - 0.45 10 3/uL 07/12/2020 1:35 PM [facility] Basophils Absolute 0.02 0.00 - 0.06 10 3/uL 07/12/2020 1:35 PM [facility] Immature Granulocytes % 0.5 0.0 - 1.0 % 07/12/2020 1:35 PM [facility] Blood BLOOD SPECIMEN / Unknown Lab Venipuncture / Unknown 07/12/2020 12:54 PM CIVIL CLERK 07/12/2020 1:20 PM CIVIL CLERK Billie Medrano MD LAB - HEMATOLOGY ORD ERABLES Performing Organization Address City/State/[facility] Co de Phone Number [facility] [address] [place] [address], [facility] [phone] * (ABNORMAL) COMPREHENSIVE METABOLIC PANEL (07/12/2020 12:54 PM CIVIL CLERK) Only the most recent of3 resultswithin the time period is included. BUN 10 7 - 26 mg/dL 07/12/2020 2:12 PM [facility] Creatinine 0.6 0.6 - 1.2 mg/dL 07/12/2020 2:12 PM [facility] Sodium 138 136 - 145 mmol/L 07/12/2020 2:12 PM [facility] Potassium 4.2 3.5 - 4.5 mmol/L 07/12/2020 2:12 PM [facility] Chloride 103 98 - 107 mmol/L 07/12/2020 2:12 PM [facility] CO2 26 22 - 29 mmol/L 07/12/2020 2:12 PM [facility] Glucose 133(H) 70 - 115 mg/dL 07/12/2020 2:12 PM [facility] Calcium 9.1 8.4 - 10.2 mg/dL 07/12/2020 2:12 PM [facility] Protein Total 6.9 6.0 - 8.3 g/dL 07/12/2020 2:12 PM [facility] Albumin 3.8 3.4 - 5.0 g/dL 07/12/2020 2:12 PM [facility] Bilirubin Total 1.0 0.2 - 1.2 mg/dL 07/12/2020 2:12 PM [facility] Alkaline Phosphatase 178(H) 40 - 150 Units/L 07/12/2020 2:12 PM [facility] ALT 18 0 - 55 Units/L 07/12/2020 2:12 PM [facility] AST 46(H) 5 - 34 Units/L 07/12/2020 2:12 PM [facility] Anion Gap 13 8 - 18 07/12/2020 2:12 PM [facility] BUN/Creatinine Ratio 17 7 - 23 07/12/2020 2:12 PM [facility] Osmolality Calculated 287 270 - 300 mOsm/kg 07/12/2020 2:12 PM [facility] Albumin/Globulin Ratio 1.2 1.1 - 2.3 07/12/2020 2:12 PM [facility] eGFR >60 >60 mL/min/1.7 3 m2 07/12/2020 2:12 PM [facility] Blood BLOOD SPECIMEN / Unknown Lab Venipuncture / Unknown 07/12/2020 12:54 PM CIVIL CLERK 07/12/2020 1:20 PM [facility] Billie Medrano MD LAB - CHEMISTRY ORDRay CABRALES [facility] [address] [place] [address], [place] [phone] * TSH (07/12/2020 12:54 PM CIVIL CLERK) TSH 1.171 0.350 - 4.940 uIU/mL 07/12/2020 2:08 PM CIVIL CLERK [facility] Blood BLOOD SPECIMEN / Unknown Lab Venipuncture / Unknown 07/12/2020 12:54 PM CIVIL CLERK 07/12/2020 1:20 PM CIVIL CLERK Billie Medrano MD LAB - CHEMISTRY CHERIE CABRALES Performing Organization Address City/[facility]/ZIP Co de Phone Number [address] [address], [place] [phone] * MRI ABDOMEN W MRCP WWO CONT W3D (06/02/2020 11:31 AM CIVIL CLERK) Anatomical Region Laterality Modality Abdomen Magnetic Resonan ce 06/04/2020 7:14 AM CIVIL CLERK Impressions 06/04/2020 10:34 AM CIVIL CLERK IMPRESSION: 1.Cirrhosis and mild hepatic steatosis. 2. 1.8 cm arterially enhancing observation without washout in segment 5 (LR-3). Report drafted by Toby Alexander M.D. (resident) I, Dr. AV HOUSE M.D. have personally reviewed and interpreted this examination/study. This report was electronically signed by AV HOUSE M.D. on 06/04/2020 10:34 AM . Narrative 06/04/2020 10:34 AM CIVIL CLERK EXAMINATION: 1. Magnetic resonance imaging (MRI) of [...] CREATININE - POCT INTERFACED (06/02/2020 10:43 AM CIVIL CLERK) [facility] Creatinine POCT 0.85 0.30 - 1.30 mg/dL 06/02/2020 2:38 PM CIVIL CLERK [facility] eGFR >60 >60 mL/min/1.7 3 m2 06/02/2020 2:38 PM CIVIL CLERK [facility] Blood BLOOD SPECIMEN / Unknown 06/02/2020 10:43 AM CIVIL CLERK 06/02/2020 2:38 PM CIVIL CLERK Billie Medrano MD LAB - POINT OF CARE ORDERABLES Performing Organization Address City/State/[facility] Co de Phone Number [facility] [address] [address], [facility] [phone] * PHOSPHATIDYLETHANOL (PETH) (04/04/2020 1:28 PM CDT) [facility] PEth 16:0/18.1 (POPEth) 224 ng/mL 04/07/2020 10:54 AM CDT [facility] ([facility]) Comment: INTERPRETIVE INFORMATION:Phosphatidylethanol (PEth), Whole Blood Phosphatidylethanol [...] Research). Test developed and characteristics determined by [facility]. See Compliance Statement B: American Board of Addiction Medicine (ABAM).SchoolOut/CS PEth 16:0/18.2 (PLPEth) 203 ng/mL 04/07/2020 10:54 AM CDT [facility] ([facility]) Comment: Performed By: [facility] [address] [place] [address] Public Affairs Specialist: Jocelynn Salomon MD Blood BLOOD SPECIMEN / Unknown Lab Venipuncture / Unknown 04/04/2020 1:28 PM CDT 04/04/2020 1:59 PM CDT Billie Medrano MD LAB - CHEMISTRY CHERIE CABRALES [facility] ([facility]) [address] [place] [address], [facility] * SMOOTH MUSCLE ANTIBODY W REFLEX TITER (04/04/2020 1:28 PM CDT) F-Actin Antibody IgG 9 0 - 19 Units 04/06/2020 7:27 PM CDT [facility] ([facility]) Comment: If F-Actin (Smooth Muscle) Antibody, IgG [...] suspicion for AIH is strong. Performed By: [facility] [address] [place] [address] Public Affairs Specialist: Jocelynn Salomon MD Blood BLOOD SPECIMEN / Unknown Lab Venipuncture / Unknown 04/04/2020 1:28 PM CDT 04/04/2020 2:36 PM CDT Billie Medrano MD LAB - SEROLOGY ORDER ELIOT [facility]) [address] * MITOCHONDRIAL ANTIBODY SCREEN (04/04/2020 1:28 PM CDT) Mitochondrial M2 Antibody 6.7 0.0 - 24.9 Units 04/06/2020 7:28 PM CDT [facility] ([facility]) Comment: REFERENCE INTERVAL: Mitochondrial (M2) Antibody, IgG [...] does not rule out PBC. Performed By: [facility] [address] [place] [address] Public Affairs Specialist: Jocelynn Salomon MD Blood BLOOD SPECIMEN / Unknown Lab Venipuncture / Unknown 04/04/2020 1:28 PM CDT 04/04/2020 2:37 PM CDT Billie Medrano MD LAB - CHEMISTRY CHERIE CABRALES Performing Organization Address [facility] de Phone Number [facility]) [address] [place] [address] * RZAOH-5-YUWEASRBJHI BLOOD PHENOTYPING PANEL (04/04/2020 1:28 PM CDT) Ugtdh-7-Ghffbstwhv n Phenotype M1M1 04/07/2020 1:43 PM CDT [facility] ([facility]) Comment: The patient appears to have a normal phenotype. All M alleles (including subtypes M1, M2, and M3) produce normal serum concentrations of lnveb-2-ylbmxdxi inhibitor and are not associated with clinical disease. Caution in interpretation is advised if the patient has been transfused within the previous 21 days. Performed By: [facility] [address] [place] [address] Public Affairs Specialist: Jocelynn Salomon MD Gwfmv-1-Xgxqomudbf n 175 90 - 200 mg/dL 04/07/2020 1:43 PM CDT [facility] ([facility]) Comment:To convert to umol/L , multiply mg/dL by 0.185 Blood BLOOD SPECIMEN / Unknown Lab Venipuncture / Unknown 04/04/2020 1:28 PM CDT 04/04/2020 2:36 PM CDT Billie Medrano MD LAB - CHEMISTRY CHERIE CABRALES Performing Organization Address [facility] Co de Phone Number [facility] ([facility]) [address] * HEMOCHROMATOSIS MUTATION PANEL (04/04/2020 1:28 PM CDT) HFE C282Y Mutation Negative 2019 3:56 PM CDT [facility] ([facility]) HFE Specimen Source Whole Blood 04/09/2020 3:56 PM CDT [facility] ([facility]) HFE H63D Mutation Negative 020 3:56 PM CDT [facility] ([facility]) HFE S65C Mutation Negative 3:56 PM CDT [facility] ([facility]) Interpretation HFE Mutation See Note 04/09/2020 3:56 PM CDT [facility] ([facility]) Comment: Indication for testing: Carrier screening or [...] variations. Test developed and characteristics determined by [facility]. See Compliance Statement C: [facility]/ Performed by [email or web address], [address] [place], [place] [id number] [email or web address], Jocelynn Salomon MD, Lab. Director Blood BLOOD SPECIMEN / Unknown Lab Venipuncture / Unknown 04/04/2020 1:28 PM CDT 04/04/2020 1:59 PM CDT Billie Medrano MD LAB - CHEMISTRY CHERIE CABRALES [facility]) [address] [place] [address] * MEL BLOOD SCREEN W/REFLEX TITER (04/04/2020 1:28 PM CDT) MEL IgG None Detected None Detected 04/06/2020 5:16 PM CDT [facility] ([facility]) Comment: If suspicion of connective tissue disease is strong and MEL EIA is negative, consider testing for MEL by IFA ([id number]). INTERPRETIVE INFORMATION: Anti-Nuclear Antibodies (MEL), IgG by GAYLE Antinuclear Antibodies (MEL), IgG by GAYLE: MEL specimens are screened using enzyme-linked immunosorbent assay (GAYLE) methodology. All GAYLE results reported as Detected are further tested by indirect fluorescent assay (IFA) using HEp-2 substrate with an IgG-specific conjugate. The MEL GAYLE screen is designed to detect antibodies against dsDNA, histones, SS-A (Ro), SS-B (La), Cunha, Cunha/PUBLIC HEALTH INFORMATICIAN, Scl-70, Shellie-1, centromeric proteins, other antigens extracted from the HEp-2 cell nucleus. MEL GAYLE assays have been reported to have lower sensitivities than MEL IFA for systemic autoimmune rheumatic diseases (SARD). Negative results do not necessarily rule out SARD. Performed By: [facility] [address] [place] [address] Public Affairs Specialist: Jocelynn Salomon MD Blood BLOOD SPECIMEN / Unknown Lab Venipuncture / Unknown 04/04/2020 1:28 PM CDT 04/04/2020 2:36 PM CDT Billie Medrano MD LAB - CHEMISTRY CHERIE CABRALES [facility] ([facility]) [address] [place] [address], [facility] * TRANSFERRIN (04/04/2020 1:28 PM CDT) Transferrin 176 174 - 382 mg/dL 04/04/2020 3:05 PM CDT [facility] Transferrin Saturation % 40 16 - 50 % 04/04/2020 3:05 PM CDT [facility] Blood BLOOD SPECIMEN / Unknown Lab Venipuncture / Unknown 04/04/2020 1:28 PM CDT 04/04/2020 2:36 PM CDT Billie Medrano MD LAB - CHEMISTRY CHERIE CABRALES Performing Organization Address City/[facility]/ZIP Co de Phone Number [address] [address], [facility] [phone] * CERULOPLASMIN (04/04/2020 1:28 PM CDT) Ceruloplasmin 32 20 - 60 mg/dL 04/04/2020 3:06 PM CDT [facility] Blood BLOOD SPECIMEN / Unknown Lab Venipuncture / Unknown 04/04/2020 1:28 PM CDT 04/04/2020 2:36 PM CDT Billie Medrano MD LAB - CHEMISTRY CHERIE CABRALES Performing Organization Address City/[facility]/ZIP Co de Phone Number [address] [address], [place] [phone] * ALPHA FETOPROTEIN BLOOD TUMOR MARKER (04/04/2020 1:28 PM CDT) Alpha-Fetoprote in Tumor Marker 4.6 <=8.3 ng/mL 04/04/2020 2:42 PM CDT [facility] Comment: AFP values will vary depending on testing procedure used. Results are not comparable across different methods. AFP values obtained by [facility] using an Castaneda Alinity Immunoassay. Blood BLOOD SPECIMEN / Unknown Lab Venipuncture / Unknown 04/04/2020 1:28 PM CDT 04/04/2020 1:59 PM CDT Billie Medrano MD LAB - CHEMISTRY CHERIE CABRALES [facility] [address] [place] [address], [facility] [phone] * (ABNORMAL) CBC W/O DIFFERENTIAL (04/04/2020 1:28 PM CDT) WBC 5.5 3.5 - 10.5 10 3/uL 04/04/2020 2:19 PM CDT [facility] RBC 3.98(L) 4.30 - 5.70 10 6/uL 04/04/2020 2:19 PM T [facility] Hemoglobin 13.4(L) 13.5 - 17.5 g/dL 04/04/2020 2:19 PM T [facility] Hematocrit 40.2 39.0 - 50.0 % 04/04/2020 2:19 PM T [facility] MCV 101.0(H) 81.0 - 97.0 fL 04/04/2020 2:19 PM CDT [facility] MCH 33.7 28.0 - 34.0 pg 04/04/2020 2:19 PM T [facility] MCHC 33.3 32.0 - 36.0 g/dL 04/04/2020 2:19 PM T [facility] Platelet Count 124(L) 150 - 400 10 3/uL 04/04/2020 2:19 PM T [facility] RDW-SD 50.4(H) 36.0 - 50.0 fL 04/04/2020 2:19 PM T [facility] RDW-CV 13.4 11.2 - 14.8 % 04/04/2020 2:19 PM T [facility] MPV 10.5 9.3 - 12.8 fL 04/04/2020 2:19 PM T [facility] nRBC Absolute 0.00 0 10 3/uL 04/04/2020 2:19 PM T [facility] nRBC Auto 0.0 0 /100 WBC 04/04/2020 2:19 PM CDT [facility] Blood BLOOD SPECIMEN / Unknown Lab Venipuncture / Unknown 04/04/2020 1:28 PM CDT 04/04/2020 1:59 PM CDT Billie Medrano MD LAB - HEMATOLOGY ORD ERABLES [address] [address], [facility] [phone] * IRON BLOOD (04/04/2020 1:28 PM CDT) [facility] Iron 89 50 - 175 mcg/dL 04/04/2020 3:05 PM CDT [facility] Blood BLOOD SPECIMEN / Unknown Lab Venipuncture / Unknown 04/04/2020 1:28 PM CDT 04/04/2020 2:36 PM CDT Billie Medrano MD LAB - CHEMISTRY ORDE RABLES Performing Organization Address City/[facility]/ZIP Co de Phone Number [address] [address], [facility] [phone] * HEPATITIS B SURFACE ANTIBODY (04/04/2020 1:28 PM CDT) [facility] Hepatitis B Virus Surface Antibody Non-react cathi Non-react cathi 04/04/2020 3:23 PM CDT [facility] Comment: < 8 mIU/mL Hepatitis B surface Antibody (HBsAb). Nonreactive for HBsAb - individual is considered not immune to Hepatitis B Virus infection. Hepatitis B Surface Antibody Quantitative 4.7 <8.0 mIU/mL 04/04/2020 3:23 PM CDT [facility] Comment: Hepatitis B Surface Antibody Numeric Result Interpretation: Nonreactive: <8.0 mIU/mL Indeterminate: 8.0 - 12.0 mIU/mL Reactive: >12.0 mIU/mL Blood BLOOD SPECIMEN / Unknown Lab Venipuncture / Unknown 04/04/2020 1:28 PM CDT 04/04/2020 2:36 PM CDT Billie Medrano MD LAB - CHEMISTRY CHERIE CABRALES Performing Organization Address City/[facility]/ZIP Co de Phone Number [facility] [address] [place] [address], [place] [phone] * HEPATITIS B CORE ANTIBODY (04/04/2020 1:28 PM CDT) HBc Antibody Total Non-reacti ve Non-reacti ve 04/04/2020 3:27 PM CDT [facility] Blood BLOOD SPECIMEN / Unknown Lab Venipuncture / Unknown 04/04/2020 1:28 PM CDT 04/04/2020 2:36 PM CDT Billie Medrano MD LAB - CHEMISTRY CHERIE CABRALES Performing Organization Address City/[facility]/ZIP Co de Phone Number [facility] [address] [place] [address], [place] [phone] * HEPATITIS B SURFACE ANTIGEN W RFLX CONFIRMATION (04/04/2020 1:28 PM CDT) Hepatitis B Virus Surface Antigen Non-reacti ve Non-reacti ve 04/04/2020 3:27 PM CDT [facility] Blood BLOOD SPECIMEN / Unknown Lab Venipuncture / Unknown 04/04/2020 1:28 PM CDT 04/04/2020 2:36 PM CDT Billie Medrano MD LAB - CHEMISTRY CHERIE CABRALES Performing Organization Address City/[facility]/ZIP Co de Phone Number [address] [address], [place] [phone] * HEPATITIS C ANTIBODY (04/04/2020 1:28 PM [...] CHERIE CABRALES [facility] [address] [place] [address], [place] [phone] * (ABNORMAL) HEPATITIS A ANTIBODY (04/04/2020 1:28 PM CDT) Hepatitis A Virus Antibody Total Positive( A) Negative 04/06/2020 8:44 AM CDT [facility] ([facility]) Comment: The positive anti-HAV is consistent with recent or remote Hepatitis A infection or antibody response to HAV vaccination. False positive anti-HAV can occur. Performed by [facility], [address] [place] [address] [email or web address], Jocelynn Salomon MD, Lab. Director Blood BLOOD SPECIMEN / Unknown Lab Venipuncture / Unknown 04/04/2020 1:28 PM CDT 04/04/2020 2:36 PM CDT Billie Medrano MD LAB - CHEMISTRY CHERIE CABRALES Performing Organization Address City/[facility]/ZIP Co de Phone Number [facility] ([facility]) [address] [place] [address], [facility] * (ABNORMAL) FERRITIN (04/04/2020 1:28 PM CDT) Pathologist [facility] Ferritin 2,699(H) 22 - 275 ng/mL 04/04/2020 4:03 PM CDT [facility] Comment:Result obtained by [employer]. Blood BLOOD SPECIMEN / Unknown Lab Venipuncture / Unknown 04/04/2020 1:28 PM CDT 04/04/2020 2:36 PM CDT Billie Medrano MD LAB - CHEMISTRY CHERIE CABRALES [facility] [address] [place] [address], [place] [phone] * CT ABDOMEN PELVIS WO CONTRAST (11/17/2018 [...] or inguinal hernia. Presumed appendectomy Procedure Note Ramehs Fuentes MD - 11/17/2018 CT abdomen and [...] 11/17/2018 at 4:07 PM Margarita Martinez Moses CARDIOLOGY RN-CASH REGISTER REPAIRER CT ORDERABLES * (ABNORMAL) GLUCOSE - POINT OF CARE (11/17/2018 12:18 PM CDT) Only the most recent of2 resultswithin the time period is included. Glucose WB/POC 121(H) 70 - 106 mg/dL 11/17/2018 4:17 PM CDT [facility] Specimen Type Arterial/C apillary 11/17/2018 4:17 PM CDT [facility] Blood BLOOD SPECIMEN / Unknown 11/17/2018 12:18 PM CDT 11/17/2018 4:17 PM CDT Vic Valenzuela MD LAB - POINT OF CARE ORDERABLES Performing Organization Address City/State/[facility] Co de Phone Number [facility] [address] [place] [address] * US SCROTUM W DOPPLER (11/17/2018 10:52 [...] fat, without central canal stenosis. Reading Radiologist: Crhistin Daugherty MD on 11/16/2018 at 3:44 PM [...] Note Tee Medina II, MD - 11/16/[address] [facility] [address] [place] [address] Lower Extremity Venous Ultrasound Report Pat.Name: MATT NICOLE.ID: [id number] .Date: 11/16/2018 Exam Time: 10:38:00 AM Study Type:LE Venous Age: 7 1970,48Y Sex: MALE Sonogrphr: [place] Varner RVT Pat. Stat.:Inpatient Room: 8 CPT - 4: 89901 Reason for Study: Pain -Leg, left Procedures: Lower Extremity Venous - Bilateral Visit ID: [id number] ++++++++++++++++++++++++++++++++++++ SUMMARY: ++++++++++++++++++++++++++++++++++++ No evidence of deep [...] (OLIVIA Medina II MD, RVT Margarita Lopes CARDIOLOGY RN-CASH REGISTER REPAIRER VASCULAR LAB OR DERABLES * (ABNORMAL) HEMOGLOBIN A1C (11/16/2018 5:16 AM CDT) Only the most recent of2 resultswithin the time period is included. Hemoglobin A1c 6.6(H) 4.0 - 6.1 % 11/16/2018 6:43 AM CDT [facility] Estimated Average Glucose 143 mg/dL 11/16/2018 6:43 AM [facility] Blood BLOOD SPECIMEN / Unknown Lab Venipuncture / Unknown 11/16/2018 5:16 AM CDT 11/16/2018 5:23 AM CDT [facility]AT[facility] - 11/16/2018 6:43 AM CDT Attention clinician: Reference Range has changed. Iveth Beck MD LAB - CHEMISTRY ORD ERABLES [facility] [address] [facility] [address] [place] [address] * (ABNORMAL) BASIC METABOLIC PANEL (CALCIUM TOTAL) (11/16/2018 5:16 AM CDT) Only the most recent of3 resultswithin the time period is included. Glucose 141(H) 74 - 106 mg/dL 11/16/2018 5:47 AM [facility] Sodium 137 136 - 145 mmol/L 11/16/2018 5:47 AM [facility] Potassium 4.4 3.5 - 5.1 mmol/L 11/16/2018 5:47 AM [facility] Chloride 103 98 - 107 mmol/L 11/16/2018 5:47 AM [facility] CO2 26 23 - 31 mmol/L 11/16/2018 5:47 AM [facility] Calcium 8.9 8.4 - 10.2 mg/dL 11/16/2018 5:47 AM [facility] Anion Gap 8 8 - 16 mmol/L 11/16/2018 5:47 AM [facility] BUN 19 8.9 - 20.6 mg/dL 11/16/2018 5:47 AM [facility] Creatinine 0.84 0.73 - 1.18 mg/dL 11/16/2018 5:47 AM [facility] eGFR by MDRD >60 >60 mL/min/1.7 3m2 11/16/2018 5:47 AM [facility] eGFR by MDRD >60 >60 mL/min/1.7 3m2 11/16/2018 5:47 AM [facility] Blood BLOOD SPECIMEN / Unknown Lab Venipuncture / Unknown 11/16/2018 5:16 AM CDT 11/16/2018 5:23 AM CDT Narrative [facility] - 11/16/2018 5:47 AM CDT Attention clinician: BUN Reference Range has changed. Matt Nicholson MD LAB - CHEMISTRY ORDE KERON Performing Organization Address [facility]/ZIP Co de Phone Number [facility] [address] [place] [address] * MAGNESIUM BLOOD (11/16/2018 5:16 AM CDT) Only the most recent of2 resultswithin the time period is included. Magnesium 2.5 1.6 - 2.6 mg/dL 11/16/2018 9:26 AM CDT [facility] Blood BLOOD SPECIMEN / Unknown Lab Venipuncture / Unknown 11/16/2018 5:16 AM CDT 11/16/2018 5:23 AM CDT Margarita Lopes CARDIOLOGY RN-CASH REGISTER REPAIRER LAB - CHEMISTRY ORDERABLES Performing Organization Address [facility] Co de Phone Number [facility] [address] [place] [address] * CT ABDOMEN AND PELVIS WITH IV [...] appears stable from prior examination. Procedure Note Shuan Gabriel MD - 11/16/2018 CT abdomen and [...] UA Yellow Straw, Yellow 11/15/2018 11:49 PM [facility] Clarity UA Clear Clear 11/15/2018 11:49 PM [facility] Glucose UA 3+(A) Negative 11/15/2018 11:49 PM [facility] Bilirubin UA Negative Negative 11/15/2018 11:49 PM [facility] Ketone UA Negative Negative 11/15/2018 11:49 PM [facility] Specific [place] UA 1.012 1.005 - 1.030 11/15/2018 11:49 PM [facility] Blood UA Negative Negative 11/15/2018 11:49 PM [facility] pH UA 5.0 5.0 - 8.0 pH 11/15/2018 11:49 PM [facility] Protein UA Negative Negative 11/15/2018 11:49 PM [facility] Urobilinogen UA Negative Negative mg/dL 11/15/2018 11:49 PM [facility] Nitrite UA Negative Negative 11/15/2018 11:49 PM [facility] Leukocyte UA Negative Negative 11/15/2018 11:49 PM [facility] Urine Microscopy Urine microscopy not indicated 11/15/2018 11:49 PM [facility] Reflex Status Culture not indicated 11/15/2018 11:49 PM [facility] Urine URINE SPECIMEN OBTAINED BY CLEAN CATCH PROCEDURE / Unknown Collection / Unknown 11/15/2018 11:41 PM CDT 11/15/2018 11:43 PM CDT Narrative [facility] - 11/15/2018 11:49 PM CDT Matt Nicholson MD LAB - URINALYSIS ORD ERABLES Performing Organization Address [facility]/ZIP Co de Phone Number [facility] [address] [place] [address] * ERYTHROCYTE SEDIMENTATION RATE (11/15/2018 11:23 PM CDT) Erythrocyte Sedimentation Rate Automated 4 0 - 15 MM/HR 11/16/2018 1:59 AM CDT [facility] Blood BLOOD SPECIMEN / Unknown Venipuncture / Unknown 11/15/2018 11:23 PM CDT 11/15/2018 11:35 PM CDT aMtt Nicholson MD LAB - HEMATOLOGY ORD ERABLES Performing Organization Address [facility] Co de Phone Number [facility] [address] [place] [address] * C-REACTIVE PROTEIN SENSITIVE (11/15/2018 11:22 PM CDT) Pathologist [facility] C-Reactive Protein High Sensitivity 0.07 <0.30 mg/dL 11/16/2018 10:15 AM CDT [facility] Blood BLOOD SPECIMEN / Unknown Venipuncture / Unknown 11/15/2018 11:22 PM CDT 11/16/2018 1:54 AM CDT Narrative [facility] - 11/16/2018 10:15 AM [...] Nicholson MD LAB - CHEMISTRY CHERIE CABRALES [facility] Organization Address City/State/ZIP Co de Phone Number [facility] [address] [place] [address] * XR SHOULDER 2+ VW LEFT (07/10/2018 8:28 AM CIVIL CLERK) Anatomical Region Laterality Modality Upper Extremity Radiographic Maribel ging 07/10/2018 8:30 AM CIVIL CLERK Impressions 07/10/2018 8:31 AM CIVIL CLERK No displaced fractures or dislocation identified. Reading Radiologist: Dionne Rader MD on 07/10/2018 at 8:31 AM Narrative 07/10/2018 8:31 AM CIVIL CLERK History: Left shoulder pain following fall COMPARISON: [...] 1:49 PM CDT Procedure Title: CT RENAL STONE*[id number] HISTORY: Testicular pain, unspecified COMPARISON: None. TECHNIQUE: [...] MD - 12/17/2017 Procedure Title: CT RENAL STONE*[id number] HISTORY: Testicular pain, unspecified COMPARISON: None. TECHNIQUE: [...] Probe Negative Negative 12/18/2017 9:18 AM CDT [facility]CRO[facility] GC Amplified Probe Negative Negative 12/18/2017 9:18 AM CDT [facility]CRO[facility] Microbiology ENTIRE ENDOCERVIX / Unknown Collection / Unknown 12/17/2017 10:41 AM CDT 12/17/2017 4:05 PM CDT Narrative [facility] - 12/18/2017 9:18 AM CDT Results based on detection/no detection of ribosomal RNA by amplified method. Prince Brennan MD LAB - MICROBIOLOGY O RDERABLES Performing Organization Address [facility] Co de Phone Number [facility] [address] [place] [address], [facility] [phone] * EKG 12-LEAD (11/26/2012 1:55 AM CDT) Only the most recent of2 resultswithin the time period is included. Narrative [facility] RAD[facility]OLOG[facility] - 11/26/2012 1:55 AM CDT A scan was deleted from the Results section by Desmond Lorenzana [[id number]] on 11/26/2012 at 1:55 AM (File: [id number]) Procedure Note ProviderEnrique MD - 11/20/2017 A scan was deleted from the Results section by Desmond Lorenzana [[id number]] on 11/26/2012t 1:55 AM (File:[id number]) Paulo Nuñez MD ECG ORDERABLES Performing Organization Address [facility] Co de Phone Number [facility] RADIOLOG[facility] * (ABNORMAL) GLUCOSE ACCUCHECK (11/10/2012 11:22 AM CDT) Only the most recent of5 resultswithin the time period is included. Glucose, Fingerstick 139(H) 70 - 110 MG/DL [facility] Comment:PERFORMED BY: MELA LOWERY 11/10/2012 11:2 2 AM CDT 11/10/2012 11:50 AM CDT Paulo Nuñez MD LAB - CHEMISTRY CHERIE CABRALES Performing Organization Address [facility] Co de Phone Number [address] [phone] * TROPONIN I (11/09/2012 6:00 PM CDT) Only the most recent of3 resultswithin the time period is included. Troponin I < 0.010 <0.032 ng/mL [facility] Comment: NOTE Any condition resulting in [...] - CHEMISTRY CHERIE CABRALES Performing Organization Address [facility] Co de Phone Number [address] [phone] * CK + CKMB PANEL (11/09/2012 6:00 PM CDT) Only the most recent of3 resultswithin the time period is included. Pathologist [facility] CK Total 70 30 - 200 Units/L [facility] CK-MB 0.7 0.0 - 6.6 ng/mL [facility] Comment: CKMB Reference Range 6.6 ng/mL [...] Nuñez MD LAB - CHEMISTRY CHERIE CABRALES [facility] Organization Address City/State/[facility] Co de Phone Number [address] [phone] * MRI BRAIN WO CONTRAST (11/09/2012 4:48 [...] CDT) APTT 27.1 23.0 - 38.4 SECONDS [facility] Comment: SUGGESTED THERAPEUTIC RANGE FOR FULL DOSE I.V. HEPARIN THERAPY FOR VENOUS THROMBOEMBOLISM IS 66.0 - 91.0 SECONDS, WITH AN APTT RATIO OF 2.1 - 3.0. APTT Ratio 0.88 [facility] Plasma specimen (specimen) 11/09/2012 12:10 AM CDT 11/09/2012 12:31 AM CDT Narrative [facility] - 11/09/2012 12:45 AM CDT Is patient on Heparin, Argatroban or Dabigatran?->N IS PATIENT ON HEPARIN? (Y OR N) N Paulo Nuñez MD LAB - COAGULATION OR DERABLES [address] [phone] * (ABNORMAL) URINALYSIS W/MICROSCOPIC NO CULTURE (11/09/2012 12:10 AM CDT) Color UA YELLOW STRW,YELLOW [facility] Clarity UA CLEAR CLEAR [facility] Specific [place] Urine 1.015 1.001 - 1.030 [facility] pH UA <= 5.0 5.0 - 8.0 [facility] Protein UA NEGATIVE <20 mg/dL [facility] Glucose UA NEGATIVE NEGATIVE mg/dL [facility] Ketones NEGATIVE NEGATIVE mg/dL [facility] Bilirubin UA NEGATIVE NEGATIVE mg/dL [facility] Blood UA NEGATIVE NEGATIVE [facility] Nitrite UA NEGATIVE NEGATIVE [facility] Leukocyte Esterase NEGATIVE NEGATIVE [facility] Urobilinogen UA < 2.0 <2.0 mg/dL [facility] WBC Urine < 1 0 - 2 /HPF [facility] Mucus Urine RARE(A) NONE SEEN /LPF [facility] Urine specimen (specimen) URINE SPECIMEN OBTAINED BY CLEAN CATCH PROCEDURE / Unknown 11/09/2012 12:10 AM CDT 11/09/2012 12:31 AM CDT Paulo Nuñez MD LAB - URINALYSIS ORD ERABLES [address] [phone] * DRUG ABUSE PANEL 10-20+ETHANOL URINE NO CONFIRM (11/09/2012 12:10 AM CDT) Amphetamines NEGATIVE NEGATIVE [facility] Comment:Positive Cutoff: >=1 000 ng/mL Barbiturate NEGATIVE NEGATIVE [facility] Comment:Positive Cutoff: >=2 00 ng/mL Benzodiazepine Screen Urine NEGATIVE NEGATIVE [facility] Comment:Positive Cutoff: >=2 00 ng/mL Opiates NEGATIVE NEGATIVE [facility] Comment:Positive Cutoff: >=3 00 ng/mL Cocaine Metabolite Urine NEGATIVE NEGATIVE [facility] Comment:Positive Cutoff: >=3 00 ng/mL Phencyclidine Screen Urine NEGATIVE NEGATIVE [facility] Comment:Positive Cutoff: >=2 5 ng/mL Cannabinoids Screen Urine NEGATIVE NEGATIVE [facility] Comment:Positive Cutoff: >=5 0 ng/mL Methadone NEGATIVE NEGATIVE [facility] Comment:Positive Cutoff: >=3 00 ng/mL Note SEE NOTE [facility] Comment: Positive results should be confirmed by another generally accepted non-immunological method such as gas chromatography or mass spectrometry. Toxicology testing by the [facility] is an aid to medical diagnosis and treatment of patients. No documented chain of custody was maintained. Results are intended to be used for clinical purposes only. Note SEE NOTE [facility] Comment: The UTOX Panel does not screen for Propoxyphene, Meprobamate, Carisoprodol, Trazodone, [id number]-spp-ygadaxu medications and/or volatiles (Acetone, Isopropanol, Methanol, Ethylene Glycol). Ethanol, Salicylate, Acetaminophen, Tricyclic Antidepressants and several therapeutic drugs may be individually assayed in a serum specimen. Urine specimen (specimen) URINE SPECIMEN OBTAINED BY CLEAN CATCH PROCEDURE / Unknown 11/09/2012 12:10 AM CDT 11/09/2012 12:31 AM CDT Paulo Nuñez MD LAB - URINE CHEMISTR Y ORDERABLES Performing Organization Address [facility] Co de Phone Number [address] [phone] * PHOSPHORUS BLOOD (11/09/2012 12:10 AM CDT) Phosphorus 3.0 2.3 - 4.7 mg/dL [facility] Serum 11/09/2012 12:1 0 AM CDT 11/09/2012 12:31 AM CDT Narrative [facility] - 11/09/2012 1:04 AM CDT IS PATIENT ON HEPARIN? (Y OR N) N Paulo Nuñez MD LAB - CHEMISTRY ORDE RABLES Performing Organization Address [facility] Co de Phone Number [address] [phone] * HEPATIC FUNCTION PANEL (11/09/2012 12:10 AM CDT) Protein Total 6.9 6.0 - 8.3 g/dL [facility] Albumin 3.8 3.4 - 5.0 g/dL [facility] Bilirubin Total 0.5 0.2 - 1.2 mg/dL [facility] Alkaline Phosphatase 54 40 - 150 Units/L [facility] ALT 8 0 - 55 Units/L [facility] AST 18 5 - 34 Units/L [facility] Albumin/Globulin Ratio 1.2 1.1 - 2.3 [facility] Bilirubin Direct 0.2 0.0 - 0.5 mg/dL [facility] Bilirubin Indirect 0.3 mg/dL [facility] Comment: Unconjugated bilirubin is a calculated value, reference ranges have not been established Venous blood specimen (specimen) 11/09/2012 12:10 AM CDT 11/09/2012 12:31 AM CDT Narrative [facility] - 11/09/2012 1:04 AM CDT IS PATIENT ON HEPARIN? (Y OR N) N Paulo Nuñez MD LAB - CHEMISTRY CHERIE CABRALES Performing Organization Address [facility]/ZIP Co de Phone Number [address] [phone] * (ABNORMAL) LIPID PROFILE (11/09/2012 12:10 AM [...] - CHEMISTRY CHERIE CABRALES Performing Organization Address [facility]/ZIP Co de Phone Number [address] [phone] * XR CHEST 1VW PORTABLE (11/08/2012 11:45 [...] Nuñez MD ECHOCARDIOGRAPHY RAD IANT Care Teams Otr Flatbed Driver Relationship Specialty Start Date End Date Fidel Camejo MD [address]a [address] [place] [phone] PCP - General Family Medicine 04/10/24
--- OUTSIDE RECORDS SUMMARY | 2024-07-30 00:59 | XMS_ITS | Clinical Summary ---
Author Organization [facility] [address] Address [address] [place] [address] Care Team Providers Care Retail Support Associate Name Role Phone Dwight Nascimento MD Unavailable Matt Mathews MD Primary Care Provider [phone] Allergies Active Allergy Reactions Criticality Noted Date [...] 2-3 TIMES DAILY 2 Active blood-glucose meter (EduRiseuch Ultra2 Meter) misc CHECK 2-3 TIMES PER DAY 2 Active cyclobenzaprine (FLEXERIL) 10 mg tablet Take 1 tablet (10 mg total) by mouth 3 (three) times a day as needed for muscle spasms 3 Active empagliflozin (Jardiance) 10 mg tablet Take 1 tablet (10 mg total) by mouth daily 2 Active lancets (EduRiseuch Delica Plus Lancet) 30 gauge misc CHECK [...] 08/18/2022 Assessment & Plan (08/18/2022 1:51 PM FLAME BRAZING MACHINE OPERATOR): Patient reports decreased edema; low continues [...] 04/29/2022 Assessment & Plan (04/29/2022 1:45 PM FLAME BRAZING MACHINE OPERATOR): To hospital for severe pain and [...] 09/22/2021 Assessment & Plan (07/10/2022 12:41 PM FLAME BRAZING MACHINE OPERATOR): Continues to be present, causing pain [...] medication Assessment & Plan (07/29/2022 2:02 PM FLAME BRAZING MACHINE OPERATOR): Patient reports generally improved pain management, though decreased response to 5 mg of oxycodone; discussed with patient metabolism pathway limits use of hydrocodone due to risk of overdose and accumulation of metabolites Will increase oxycodone at next refill Assessment & Plan (06/13/2021 10:19 AM FLAME BRAZING MACHINE OPERATOR): Patient was advised given concern for an incarcerated umbilical hernia to report to the er now. He is going to [facility]. He was asked to contact the office [...] outcome. Assessment & Plan (06/03/2021 6:29 PM FLAME BRAZING MACHINE OPERATOR): Patient continues to complain of jeovany-umbilical abdominal pain and is requesting continued refills of Tramadol. When asked how many he had left he states he ran out of them a week ago -- He was just given #12 on 11/29 upon discharge from [facility]. Today is 05/22 so if he ran [...] 7:11 PM CDT): Still awaiting records from [facility] regarding the Cardiology evaluation of the pericardial [...] MEL. Assessment & Plan (06/03/2021 6:10 PM FLAME BRAZING MACHINE OPERATOR): Positive MEL. Per Rheumatology evaluation there is no rheumatologic cause for his symptoms as he does not have any clinical features of rheumatologic connective tissues disease at this time. Hence none of his pain is related to an autoimmune condition at this point. Assessment & Plan (01/27/2021 10:05 PM CDT): Awaiting recommendation from [facility] Rheum. Has Oct appointment Assessment & Plan [...] management Assessment & Plan (06/03/2021 6:10 PM FLAME BRAZING MACHINE OPERATOR): Chronic wedge compression fracture at T11. [...] No hx of HE/jaundice. MRCP 05/2020 at [facility] with cirrhosis/hepatic steatosis, 1.8 cm arterially enhancing observation without washout in segment 5 (LR-3). Labs at [facility] with +ve MEL 1:1280 but -ve [...] requiring banding x 2 done locally at [facility] in [place], based on OSH records 1 EGD was [...] paracentesis Assessment & Plan (08/18/2022 1:49 PM FLAME BRAZING MACHINE OPERATOR): Not well controlled, patient had 5 L removed by paracentesis 1 week ago; is already refilled with ascitic fluid Patient to follow-up with cardiology on will likely need standing order for paracentesis Continue furosemide 80 mg b.i.d., spironolactone 100 mg daily Complicated by worsening peripheral edema Patient to follow-up with hepatology at end of week Assessment & Plan (08/04/2022 10:04 AM FLAME BRAZING MACHINE OPERATOR): Not well controlled; continues to have [...] site Assessment & Plan (07/29/2022 2:01 PM FLAME BRAZING MACHINE OPERATOR): Not well controlled, worsening; patient has [...] NAFLD Assessment & Plan (07/10/2022 12:43 PM FLAME BRAZING MACHINE OPERATOR): Admitted for EGD with banding, required [...] 10:13 AM CDT): Continue per GI at [facility] for his cirrhosis. Stressed importance of following up on a regular basis due his progressive disease. Assessment & Plan (09/15/2021 8:39 PM CDT): Continue per hepatology at [facility] Assessment & Plan (06/03/2021 6:09 PM FLAME BRAZING MACHINE OPERATOR): Continue her GI at [facility], Dr. Jasso. He has been started on new medication to help decrease the ascites buildup. Encouraged him to follow their directions and keep his appointments. Strongly encouraged complete cessation of alcohol. I reviewed the lab results regarding alcohol use. He still adamant that he has not drank since his 51th birthday. Assessment & Plan (05/14/2021 12:07 PM FLAME BRAZING MACHINE OPERATOR): - MELD labs today, and repeat [...] followup with local GI. Await recommendation from [facility] hepatology Assessment & Plan (12/12/2020 6:56 PM [...] Patient would like to be referred to [facility] to see the hepatology group therefore continuity of care a since they are part of the [facility] system and can share medical records. Will make that referral Assessment & Plan (12/02/2020 10:30 AM CDT): Per GI note, unknown etiology of the cirrhosis/ascites. However, I have placed a call to Dr. Rodriguez, Attending GI at [facility] to discuss his recent labs, most importantly the positive MEL at 1:1280. I left a message on 11/20 and will await return call. I have concern for possible autoimmune hepatitis as the underlying cause. Patient appears to have increased ascites over the past few weeks. Increased pain. Increased orthopnea. Will check abdominal US at [facility] (patient to schedule on own as order and phone number provided). If has acute increase in sxs, encouraged to present to [facility] ER for further evaluation so GI/heapatology group can evaluate. He would like to transfer care to [facility]. Tramadol a few times a day is managing pain. Monitor closely Dr. Gordon, agent producer at [facility] returned my call on Beni, Estefania 11th. [...] PM CDT): Stressed importance of followup with agent producer. He states he has followup with Dr. Medrano at [facility] at the end of October and next week with Dr. Claros. He is having daily pain. Attempted to contact Dr Claros. Multiple messages left with staff and call not returned. Will await recommendations from Dr. Medrano. Discussed referral to [facility] agent producer --- patient has a family member in [...] diet Assessment & Plan (07/10/2022 12:44 PM FLAME BRAZING MACHINE OPERATOR): Not well controlled, has been on [...] 05/22/20212021 Assessment & Plan (05/22/2021 10:54 AM FLAME BRAZING MACHINE OPERATOR): Obesity is unchanged. Discussed the patient's BMI. The BMI is above average. BMI management plan is completed. BMI Follow-up includes: nutrition counseling, exercise counseling and education provided. BMI 31.0-31.9,adult 05/22/2021 08/29/19 22 Assessment & Plan (05/22/2021 10:54 AM FLAME BRAZING MACHINE OPERATOR): Obesity is unchanged. Discussed the patient's [...] Type Department Care Team Description 07/01/2024 Telephone [facility] Gastroenterology [address] [facility] Medicine [address]th [place] [address] [place] [address] HiginiopadminiNancy 06/29/2024 Telephone [facility] Gastroenterology [address] [facility] 12th [place] [address] [place] [address] Julissa Molina LPN 06/23/2024 11:55 AM FLAME BRAZING MACHINE OPERATOR Lab [facility] [address] [place] [address] Alcoholic cirrhosis of liver with ascites (CMS/HCC) (HCC); Type 2 diabetes mellitus without complication, with long-term current use of insulin (CMS/HCC) (HCC) 06/23/2024 9:40 AM FLAME BRAZING MACHINE OPERATOR Office Visit [facility] Gastroenterology [facility] Medical Office Building [address] [place] [address] Elan Hutchinson MD Alcoholic cirrhosis of liver with ascites (CMS/HCC) (HCC) (Primary Dx); Type 2 diabetes mellitus without complication, with long-term current use of insulin (CMS/HCC) (HCC); Alcohol use disorder; Hepatic encephalopathy (HCC) 06/10/2024 Orders Only [facility] [address] [place] [address] Matt Mathews MD 05/20/2024 Orders Only [facility] [address] [place] [address] Matt Mathews MD 05/19/2024 Orders Only [facility] [address] [place] [address] Matt Mathews MD 05/18/2024 Orders Only [facility] [address] [place] [address] Suly, Elvira 05/17/2024 Orders Only [facility] [address] [place] [address] Matt Mathews MD 05/05/2024 Telephone [facility]enterology [address] [facility] 12th [place] [address] [place] [phone] Serena Varghese LPN 05/03/2024 Orders Only [facility] Health Information Management [address] [place] [address] Matt Mathews MD from Last 3 Months [...] on file Legal Sex Male 9:05 AM FLAME BRAZING MACHINE OPERATOR Gender Identity Male 06/09/2023 11:43 AM FLAME BRAZING MACHINE OPERATOR Sexual Orientation Straight 06/09/2023 11 :43 AM FLAME BRAZING MACHINE OPERATOR Obstetrics History Last Filed Vital Signs Vital Sign Reading Time Taken Comments Blood Pressure 94/60 06/23/2024 10:30 AM FLAME BRAZING MACHINE OPERATOR Pulse 80 06/23/2024 10:30 AM FLAME BRAZING MACHINE OPERATOR Temperature 37 C (98.6 F) 06/23/2024 10:30 AM FLAME BRAZING MACHINE OPERATOR Respiratory Rate 16 06/23/2024 10:30 AM FLAME BRAZING MACHINE OPERATOR Oxygen Saturation 94% 06/23/2024 10:30 AM FLAME BRAZING MACHINE OPERATOR Inhaled Oxygen Concentration - - Weight 68.6 kg (151 lb 3.2 oz) 06/23/2024 10:30 AM FLAME BRAZING MACHINE OPERATOR Height 165.1 cm (5' 5 ) 06/23/2024 10:30 AM FLAME BRAZING MACHINE OPERATOR Body Mass Index 25.16 06/23/2024 10:30 AM FLAME BRAZING MACHINE OPERATOR Plan of Treatment Health Maintenance Due [...] Diagnosis Comments EGD Routine 07/05/2024 1:14 PM FLAME BRAZING MACHINE OPERATOR EGFR Routine 06/23/2024 12:02 PM FLAME BRAZING MACHINE OPERATOR Alcoholic cirrhosis of liver with ascites (CMS/HCC) (HCC) DIFFERENTIAL AUTO Routine 06/23/2024 12: 02 PM FLAME BRAZING MACHINE OPERATOR Alcoholic cirrhosis of liver with ascites (CMS/HCC) (HCC) CBC WITH AUTO DIFFERENTIAL Routine 06/23 12:02 PM FLAME BRAZING MACHINE OPERATOR Alcoholic cirrhosis of liver with ascites (CMS/HCC) (HCC) COMPREHENSIVE METABOLIC PANEL Routine 06/23/2024 12:02 PM FLAME BRAZING MACHINE OPERATOR Alcoholic cirrhosis of liver with ascites (CMS/HCC) (HCC) PROTIME-INR Routine 06/23/2024 12:02 PM FLAME BRAZING MACHINE OPERATOR Alcoholic cirrhosis of liver with ascites (CMS/HCC) (HCC) [id number], TUMOR MARKER Routine 06/23/2024 12:02 PM FLAME BRAZING MACHINE OPERATOR Alcoholic cirrhosis of liver with ascites (CMS/HCC) (HCC) PHOSPHATIDYLETHANOL Routine 06/23/2024 1 2:02 PM FLAME BRAZING MACHINE OPERATOR Alcoholic cirrhosis of liver with ascites (CMS/HCC) (HCC) HEMOGLOBIN A1C Routine 06/23/2024 12:02 PM FLAME BRAZING MACHINE OPERATOR Alcoholic cirrhosis of liver with ascites (CMS/HCC) (HCC) Type 2 diabetes mellitus without complication, with long-term current use of insulin (CMS/HCC) (HCC) SCAN - RADIOLOGY/IMAGING 06/10/2024 EGD Routine 05/20/2024 12:45 PM FLAME BRAZING MACHINE OPERATOR SCAN - RADIOLOGY/IMAGING 05/20/2024 SCAN - RADIOLOGY/IMAGING 05/19/2024 SCAN - RADIOLOGY/IMAGING 05/18/2024 SCAN - RADIOLOGY/IMAGING 05/17/2024 SCAN - RADIOLOGY/IMAGING 05/03/2024 ALBUMIN CREATININE RATIO, URINE Routine 08/15/2022 POCT LIPID PANEL Routine 07/28/2022 9:31 AM FLAME BRAZING MACHINE OPERATOR Lipid screening HM COLONOSCOPY Routine 03/12/2022 PSA SCREEN Routine 10/19/2020 10:46 AM CDT Prostate cancer screening from Last 3 Months or Most Recently Relevant to Health Maintenance Results * EGD -[facility] (07/05/2024 1:14 PM FLAME BRAZING MACHINE OPERATOR) Anatomical Region Laterality Modality Other us Historical Provider GI PROCEDURE ORDERABLES F inal Result * Phosphatidylethanol (06/23/2024 12:02 PM FLAME BRAZING MACHINE OPERATOR) PHOSPHATIDYLETHANOL Negative . [facility] Comment: ADDITIONAL INFORMATION This report is intended for use in clinical monitoring and management of patients. It is not intended for use in employment-related testing. This test was developed and its performance characteristics determined by [facility] in a manner consistent with CLIA requirements. This test has not been cleared or approved by the U.S. Food and Drug Administration. Test Performed by: [facility] [address] [place] [address] Jacquard Loom Heddles Tier: Smooth Goff Ph.D.; CLIA# [id number] PEth 16:0/18:1 (POPEth)by LC-MS/MS <10 Cutoff: 10 [...] well established Blood 06/23/2024 12:0 2 PM FLAME BRAZING MACHINE OPERATOR 06/23/2024 12:16 PM FLAME BRAZING MACHINE OPERATOR us Elan Hutchinson MD LAB BLOOD ORDERABLES Final Res ult [facility] [address] [facility]. [place] [address] [facility] * (ABNORMAL) eGFR (06/23/2024 12:02 PM FLAME BRAZING MACHINE OPERATOR) eGFR 55(L) >=60 mL/min/1. 73 m2 [...] reviewed 2021. Blood 06/23/2024 12:0 2 PM FLAME BRAZING MACHINE OPERATOR 06/23/2024 12:16 PM FLAME BRAZING MACHINE OPERATOR us Elan Hutchinson MD LAB BLOOD ORDERABLES Final Res ult [facility] [address] [facility]. [place] [address] * Differential, auto (06/23/2024 12:02 PM FLAME BRAZING MACHINE OPERATOR) Neutrophil abs 4.3 1.5 - 6.5 K/cumm Imm gran abs 0.0 0.0 - 0.1 K/cumm [facility] Lymphocyte abs 0.8 0.8 - 3.3 K/cumm [facility] Monocyte abs 0.8 0.2 - 0.8 K/cumm [facility] Eosinophil abs 0.1 0.0 - 0.5 K/cumm [facility] Basophil abs 0.0 0.0 - 0.1 K/cumm [facility] Neutrophil pct 71.3 % [...] on 2017. Basophil pct 0.5 % [facility] Comment: Interpretive Data Percent cell count reference ranges are not reported, since discordance with absolute values may lead to misinterpretation of CBC data. Current Interpretive Data was last revised on 2017. Blood 06/23/2024 12:0 2 PM FLAME BRAZING MACHINE OPERATOR 06/23/2024 12:16 PM FLAME BRAZING MACHINE OPERATOR us Elan Hutchinson MD LAB BLOOD ORDERABLES Final Res ult [facility] [address] [facility]. [place] [address] * (ABNORMAL) CBC with auto differential (06/23/2024 12:02 PM FLAME BRAZING MACHINE OPERATOR) WBC 6.1 3.8 - 9.9 K/cumm Hgb 12.8(L) 13.0 - 17.5 g/dL [facility] Hct 40.8 38.9 - 50.3 % [facility] Plt 99(L) 150 - 400 K/cumm [facility] MPV 10.6 9.1 - 12.3 fL [facility] RBC 4.35 4.30 - 5.80 M/cumm [facility] MCV 93.8 81.3 - 96.4 fL [facility] MCH 29.4 27.1 - 33.3 pg [facility] MCHC 31.4(L) 32.3 - 35.7 g/dL [facility] RDW CV 15.4(H) 11.1 - 14.9 % [facility] RDW SD 53.1(H) 35.7 - 48.1 fL [facility] NRBC abs 0.00 0.00 - 0.01 K/cumm [facility] Blood 06/23/2024 12:0 2 PM FLAME BRAZING MACHINE OPERATOR 06/23/2024 12:16 PM FLAME BRAZING MACHINE OPERATOR us Elan Hutchinson MD LAB BLOOD ORDERABLES Final Res ult [facility] [address] [facility]. [place] [address] * [id number], Tumor Marker (06/23/2024 12:02 PM FLAME BRAZING MACHINE OPERATOR) alpha Fetoprotein <1.8 <=8.3 ng/mL Comment: [...] 2018;[id number] Brenden Ellsworth et al. Clin Chem 2014;[id number]. Current interpretive data was last revised 2022. Testing performed by: [facility], [address] [place] [address], [place]., [address] Blood 06/23/2024 12:0 2 PM FLAME BRAZING MACHINE OPERATOR 06/23/2024 2:22 PM FLAME BRAZING MACHINE OPERATOR Elan Hutchinson MD LAB BLOOD ORDERABLES Final Res ult Performing Organization Address [facility] de Phone Number [facility] [address] [facility] [place] [address] * Protime-INR (06/23/2024 12:02 PM FLAME BRAZING MACHINE OPERATOR) PT 11.6 9.7 - 13.0 sec INR 1.07 0.90 - 1.20 [facility] Comment: Interpretive data Oral anticoagulant therapeutic ranges: Venous thromboembolism prophylaxis or treatment: 2.0-3.0 CARDIOLOGY Standard range: 2.0-3.0 High-intensity range: 2.5-3.5 Refer to indication-specific guidelines for appropriate target ranges for prosthetic heart valve replacement. Current interpretive data was last revised on 2019. Blood 06/23/2024 12:0 2 PM FLAME BRAZING MACHINE OPERATOR 06/23/2024 12:16 PM FLAME BRAZING MACHINE OPERATOR Elan Hutchinson MD LAB BLOOD ORDERABLES Final Res ult Performing Organization Address [facility] de Phone Number [facility] [address] [place] [address] * Hemoglobin A1c (06/23/2024 12:02 PM FLAME BRAZING MACHINE OPERATOR) Hgb A1C 5.0 4.0 - 5.6 % Estimated Average Glucose 97 mg/dL [facility] Comment: The ADA recommends reporting an estimated Average Glucose (eAG) with all Hemoglobin A1c results using the equation derived from a study of 507 normal and diabetic adults. Minority populations were underrepresented and children were not included. (Diabetes Care 31:6666-9875, 2008). The eAG is not equivalent to a fasting glucose. Blood 06/23/2024 12:0 2 PM FLAME BRAZING MACHINE OPERATOR 06/23/2024 12:16 PM FLAME BRAZING MACHINE OPERATOR Elan Hutchinson MD LAB BLOOD ORDERABLES Final Res ult [facility] [address] [facility]. [place] [address] * (ABNORMAL) Comprehensive metabolic panel (06/23/2024 12:02 PM FLAME BRAZING MACHINE OPERATOR) Sodium 136 135 - 145 mmol/L [...] [facility] Blood 06/23/2024 12:0 2 PM FLAME BRAZING MACHINE OPERATOR 06/23/2024 12:16 PM FLAME BRAZING MACHINE OPERATOR Elan Hutchinson MD LAB BLOOD ORDERABLES Final Res ult [facility] [address] [facility]. [place] [address] * SCAN - RADIOLOGY/IMAGING (06/10/2024) Anatomical Region Laterality Modality Other Matt Mathews MD Final Res ult * EGD -[facility] (05/20/2024 12:45 PM FLAME BRAZING MACHINE OPERATOR) Anatomical Region Laterality Modality Other Enrique [...] * POCT lipid panel (07/28/2022 9:31 AM FLAME BRAZING MACHINE OPERATOR) Cholesterol, POC 231 mg/dL HDL, POC 42 mg/dL Triglycerides, POC 112 mg/dL LDL Cholesterol POC 168 mg/dL Chol/HDL Ratio, POC 4.0 Non-HDL Cholesterol, POC 190 mg/dL Cholesterol Total, POC 231 mg/dL Capillary blood 07/28/2022 9 :31 AM FLAME BRAZING MACHINE OPERATOR Anais Chowdary MD POINT OF CARE TEST O RDERABLES Edited Result - Final * HM COLONOSCOPY (03/12/2022) Historical Provider HEALTH MAINTENANCE Final Result * PSA screen (10/19/2020 10:46 AM CDT) PSA 0.2 < OR = 4.0 ng/mL [facility] Comment: The total PSA value from this assay system is standardized against the WHO standard. The test result will be approximately 20% lower when compared to the equimolar-standardized total PSA (Jass [place]). Comparison of serial PSA results should be [...] LAB BLOOD ORDERABLES Final Result [facility] [address] [phone] from Last 3 Months or Most Recently Relevant to Health Maintenance Insurance [facility] MEDICARE [facility] MEDICARE Care Teams Retail Support Associate Relationship Specialty Start Date End Date Matt Mathews MD [address] [place] [address] PCP - General Family Medicine 03/31/22 Dwight Nascimento MD Consulting Physician Internal Medicine 09/20/21
[2024-07-30 01:12] LABS: Add Urine Microscopic? NO; Appearance Urine Clear (Clear); Bilirubin Urine Negative (Negative); Blood Urine Negative (Negative); Color Urine Yellow (Yellow); Glucose Urine UA Negative (Negative); Ketones Urine Negative (Negative); Leukocyte Esterase Ur Negative LEU/UL (Negative); Nitrate Urine Negative (Negative); Protein Urine Negative (Negative); Specific Grav Ur 1.009 (1.001-1.035); Urobilinogen Urine 0.2 mg/dL (<2.0); pH Urine 7.5 (5.0-9.0)
[2024-07-30 01:13] VITALS: BP 120/86; PULSE 72; RESP 16; TEMP 36.5; O2SAT 98
[2024-07-30 01:13] LABS: Basophils Percent Auto 0.6 % (0.2-1.2); Eosinophils Absolute Auto 0.1 K/mm3 (0-0.3); Eosinophils Percent Auto 2.9 % (0-4.4); Hematocrit 41.3 % (42.0-52.0); Hemoglobin 13.4 g/dL (14.0-18.0); Immature Granulocyte Absolute 0.01 K/mm3 (0.00-0.031); Immature Granulocyte Percent A 0.3 % (0-0.5); Immature Platelet Fraction Pct 11.2 % (0.9-11.2); Lymphocytes Absolute Auto 0.68 K/mm3 (0.9-3.2); Lymphocytes Percent Auto 19.7 % (18.3-44.2); Mean Corpuscular HGB Conc 32.4 g/dl (32-36); Mean Corpuscular Hemoglobin 29.1 pg (26-34); Mean Corpuscular Volume 89.8 fl (80-100); Monocytes Absolute Auto 0.5 K/mm3 (0.1-0.6); Monocytes Percent Auto 15.7 % (2.6-8.5); Neutrophils Absolute Auto 2.1 K/mm3 (1.3-6.7); Neutrophils Percent Auto 60.8 % (45.5-73.1); Red Cell Distribution Width 14.5 % (11.5-14.5); White Blood Count 3.5 K/mm3 (4.5-10.0)
[2024-07-30] MEDS: ONDANSETRON INJ 4 MG/2 ML VIAL IV PUSH (01:16)
[2024-07-30] MEDS: PANTOPRAZOLE SODIUM IV 40 MG VIAL IV PUSH (01:16)
--- NOTE | 2024-07-30 01:16 | ED.GENADULT ---
HPI - General Adult General Chief complaint: Abdominal Pain Stated complaint: low platelet count, N/V/ RUQ andomen pain Time Seen by Provider: 07/30/24 00:47 History of Present Illness HPI narrative: Patient presents here after being sent by facility for low platelets. He has end-stage cirrhosis and always has low platelets. He does state that he has been having some slight nausea, right-sided pain, and did throw up earlier; this is also unfortunately common for him. Related Data Home Medications ?Medication ?Instructions ?Recorded ?Confirmed ?Last Taken ?Type potassium chloride 20 mEq 20 meq PO BID 04/11/22 07/05/24 07/05/24 07:30 History tablet,extended release(part/cryst) furosemide 40 mg tablet 100 mg PO BID 08/25/22 07/05/24 07/05/24 07:30 History spironolactone 50 mg tablet 125 mg PO Q12H 04/13/23 07/05/24 07/05/24 History (Aldactone) Miralax 17 g PO DAILY 05/20/24 07/05/24 07/04/24 History cholestyramine-aspartame 4 gram 1 ea PO PRN PRN Diarrhea 05/20/24 07/05/24 Unknown History oral powder for susp in a packet (Cholestyramine Light) divalproex 500 mg tablet,extended 500 mg PO BID 05/20/24 07/05/24 07/05/24 07:30 History release 24 hr (Depakote ER) insulin glargine 10 units subcut HS 05/20/24 07/05/24 07/04/24 History insulin lispro 100 unit/mL 1 sliding scale dose subcut 05/20/24 07/05/24 07/04/24 History subcutaneous pen USEASDIRECTD insulin lispro protamine-lispro 5 unit subcut AC 05/20/24 07/05/24 07/04/24 History 100 unit/mL (75-25) subcutaneous pen (Humalog Mix 75-25 KwikPen) lactulose 10 gram/15 mL oral 45 ml PO QID 05/20/24 07/05/24 07/04/24 History solution (Enulose) levothyroxine 25 mcg tablet 25 mcg PO DAILY 05/20/24 07/05/24 07/05/24 07:30 History lidocaine 5 % topical patch 1 patch topical DAILY 05/20/24 07/05/24 07/04/24 History magnesium citrate (Citroma oral 296 ml PO ONCE 05/20/24 07/05/24 Unknown History solution) magnesium hydroxide 400 mg/5 mL 30 ml PO PRN PRN Constipation 05/20/24 06/21/24 Unknown History oral suspension (Milk of Magnesia) midodrine 2.5 mg tablet 5 mg PO TID PRN Hypotension 05/20/24 06/21/24 Unknown History nicotine 21 mg/24 hr daily 1 patch transdermal DAILY 05/20/24 05/20/24 Unknown History transdermal patch ondansetron HCl 8 mg tablet 8 mg PO TID PRN Nausea And Vomiting 05/20/24 06/21/24 Unknown History prednisone 10 mg tablet 10 mg PO AC 05/20/24 07/05/24 07/05/24 07:30 History senna-docusate sodium tablet 2 tablet PO BID 05/20/24 07/05/24 07/05/24 07:30 History sodium phosphates 19 gram-7 118 ml RECTAL PRN constipation 05/20/24 05/20/24 Unknown History gram/118 mL enema (Fleet Enema) trazodone 100 mg tablet 100 mg PO HS 05/20/24 07/05/24 07/04/24 History pregabalin 50 mg capsule 50 mg PO TID 06/21/24 07/05/24 07/05/24 07:30 History Allergies Allergy/AdvReac Type Severity Reaction Status Date / Time ceftriaxone AdvReac Itching Verified 07/05/24 10:51 ciprofloxacin AdvReac Itching Verified 07/05/24 10:51 Review of Systems Review of Systems: All systems reviewed & are unremarkable except as noted in HPI and below [facility] Past Medical History Medical History (Updated 07/30/24 @ 02:08 by Tabatha Millard MD) PTSD (post-traumatic stress disorder) Diabetes type 2, controlled History of pulmonary embolism CHF (congestive heart failure) EF 65% Deep vein thrombosis of axillary vein of left upper extremity (03/2023) Closed fracture of left proximal humerus Pulmonary emboli (03/2023) Umbilical hernia Pancreatic abnormality C. difficile colitis (~2021) Diastolic congestive heart failure Type 2 diabetes mellitus Leukemia In childhood. Kidney stone Esophageal varices Cerebrovascular accident (2004) Pulmonary hypertension HU (iron deficiency anemia) Tobacco dependence Chronic anemia Gastric ulcer Pericardial effusion Noted on CT and echocardiogram in August 2020. No evidence of tamponade. GI bleed Spontaneous bacterial peritonitis (04/2020) Prostate cancer Status post radiation seed implantation. Cirrhosis of liver with ascites Hypertension Gastroesophageal reflux disease Portal hypertensive gastropathy Noted on endoscopy on 03/23/[address] Duran. Diarrhea Arthritis Surgical History Surgical History History of cystoscopy History of inguinal hernia repair History of lithotripsy History of repair of right rotator cuff History of cholecystectomy History of appendectomy Family History Family History Mother Breast cancer Father Acute myocardial infarction Heart disease Hypertension Other Diabetes mellitus Maternal Uncle Sibling Family history of malignant neoplasm Social History Social History Social History: Patient has [facility] residing in [facility] since his 's following metastatic breast cancer. He has been residing at a [facility] since July 2023. He still smokes cigarettes every day. He has not drink alcohol in almost 2 years and then denies heavy alcohol use prior to that. Surrogate decision maker: Marnie Washington (aunt) who lives locally or his mother who lives in [facility] Code status: DNR/DNI Smoking packs per day: 0.5 Smoking cigarettes per day: 10.0 Years smoked: 20 Smoking pack-years: 10.00 Smoking status: Current every day smoker Tobacco type: cigarettes Second hand tobacco smoke exposure: No Additional smoking assessment comments: 3 cig per day Alcohol intake: never Drinks per week: 1 Alcohol use details: Former beer drinker. Substance use: never Substance use type: does not use Other substance usage details: DECEMBER 16 2022 LAST DRINK- BEER Do You Feel Safe in your Home?: Yes Lack of Transportation: No Lack of Food: Never True Current Housing: I Have Housing Concerned About Future Housing: No Difficulty Paying Gas/Electric Bills: No Difficulty Paying for Meds: No Currently Unemployed: No Education: Decline to Answer Difficulty w/ Childcare or Family Care: No Living arrangements: [facility] Additional living arrangements comments: Resides in [place] with his and son. Additional occupation/education comments: On disability. Spiritual care concerns: No Agree to blood products: Yes Exam Narrative: EXAMINATION OF ORGAN SYSTEMS/BODY AREAS: Constitutional: Vital signs per nursing GENERAL:[No acute distress, non-toxic appearing.] HEAD: Normal with no signs of head trauma. EYES: EOMI, conjunctiva normal ENT: Hearing grossly intact LUNGS: Nonlabored breathing. HEART: [Regular rate and rhythm] ABD: [Soft], very minimal tenderness to palpation right upper quadrant EXT: Normal range of motion SKIN: [No rashes or lesions.] NEURO: [Alert and oriented x 3. No gross focal sensory or strength deficits.] PSYCH: Normal affect Course Vital Signs Vital signs: Vital Signs Temperature 97.6 F 07/29/24 20:23 Pulse Rate 79 07/29/24 20:23 Respiratory Rate 17 07/29/24 20:23 Blood Pressure 95/64 L 07/29/24 20:23 Pulse Oximetry 97 07/29/24 20:23 Oxygen Delivery Room Air 07/29/24 20:23 Temperature 97.7 F 07/30/24 01:13 Pulse Rate 72 07/30/24 01:13 Respiratory Rate 16 07/30/24 01:13 Blood Pressure 120/86 07/30/24 01:13 Pulse Oximetry 98 07/30/24 01:13 Oxygen Delivery Room Air 07/29/24 20:23 Medical Decision Making MDM Narrative Medical decision making narrative: Patient was sent here from [facility] due to concern that he had low platelets. I did review his labs, he has end-stage cirrhosis and always has low platelets. Labs obtained here today are not far off from his baseline. He is given a dose of Zofran, Protonix for his symptoms of nausea. On re-evaluation, he feels better. He is no longer nauseous. Denies any other complaints. He has not had any new abdominal pain, nausea or vomiting since being in the emergency room. I do feel he is stable for discharge at this time with return precautions and follow-up to his liver specialist. Patient is agreeable to this plan. Vital Signs Vital Signs: Vital Signs Temperature 97.6 F 07/29/24 20:23 Pulse Rate 79 07/29/24 20:23 Respiratory Rate 17 07/29/24 20:23 Blood Pressure 95/64 L 07/29/24 20:23 Pulse Oximetry 97 07/29/24 20:23 Oxygen Delivery Room Air 07/29/24 20:23 Temperature 97.7 F 07/30/24 01:13 Pulse Rate 72 07/30/24 01:13 Respiratory Rate 16 07/30/24 01:13 Blood Pressure 120/86 07/30/24 01:13 Pulse Oximetry 98 07/30/24 01:13 Oxygen Delivery Room Air 07/29/24 20:23 Lab Data 07/30/24 01:05 07/30/24 01:05 Labs: Lab Results 07/30/24 Range/Units 01:05 WBC 3.5 L (4.5-10.0) K/mm3 RBC 4.60 (4.6-6.20) M/mm3 Hgb 13.4 L D (14.0-18.0) g/dL Hct 41.3 L (42.0-52.0) % MCV 89.8 (80-100) fl MCH 29.1 (26-34) pg MCHC 32.4 (32-36) g/dl RDW 14.5 (11.5-14.5) % Plt Count 53 L (150-375) k/mm3 MPV 13.0 H (7.4-10.4) fl Immature Gran % (Auto) 0.3 (0-0.5) % Neut % (Auto) 60.8 (45.5-73.1) % Lymph % (Auto) 19.7 (18.3-44.2) % [place] % (Auto) 15.7 H (2.6-8.5) % Eos % (Auto) 2.9 (0-4.4) % Baso % (Auto) 0.6 (0.2-1.2) % Lymph # (Auto) 0.68 L (0.9-3.2) K/mm3 [place] # (Auto) 0.5 (0.1-0.6) K/mm3 Eos # (Auto) 0.1 (0-0.3) K/mm3 Baso # (Auto) 0.0 (0.0-0.1) K/mm3 Abs Immat Gran (auto) 0.01 (0.00-0.031) K/mm3 Absolute Neuts (auto) 2.1 (1.3-6.7) K/mm3 Absolute Nucleated RBC 0.000 (0.0-0.012) K/mm3 Nucleated RBC % 0.0 (0.0-0.2) % Platelet Estimate Decreased (Adequate) % Immature Plt Fraction 11.2 (0.9-11.2) % Hypochromasia 1+ Anisocytosis 1+ Schistocytes None seen PT 13.6 (11.1-14.7) Seconds INR 1.0 APTT 30.3 (22.3-36.8) Seconds Sodium 136 L (137-145) mmol/L Potassium 4.0 (3.4-5.0) mmol/L Chloride 93 L (98-107) mmol/L Carbon Dioxide 37 H (22-30) mmol/L Anion Gap 6 (4-12) mmol/L BUN 33 H (9-20) mg/dL Creatinine 1.29 (0.7-1.3) mg/dL Estim Creat Clear Calc Not Reportable Estimated GFR 58 L (59 - ) Glucose 92 (65-110) mg/dL Calcium 9.3 (8.4-10.2) mg/dL Total Bilirubin 0.6 (0.2-1.3) mg/dL AST 36 (17-59) U/L ALT 18 (6-50) U/L Alkaline Phosphatase 174 H (38-126) U/L Total Protein 7.0 (6.3-8.2) g/dL Albumin 3.7 (3.5-5.1) g/dL Lipase 66 (23-300) U/L Urine Color Yellow (Yellow) Urine Appearance Clear (Clear) Urine pH 7.5 (5.0-9.0) Ur Specific [place] 1.009 (1.001-1.035) Urine Protein Negative (Negative) mg/dL Urine Glucose (UA) Negative (Negative) mg/dL Urine Ketones Negative (Negative) mg/dL Ur Blood (Man) Negative (Negative) Urine Nitrate Negative (Negative) Urine Bilirubin Negative (Negative) Urine Urobilinogen 0.2 (<2.0) mg/dL Leukocyte Esterase Rfl Negative (Negative) WES/UL Discharge Plan Discharge Clinical Impression: Abdominal pain, RUQ, Thrombocytopenia Cirrhosis Qualifiers: Hepatic cirrhosis type: alcoholic cirrhosis Ascites presence: with ascites Qualified Code(s): K70.31 - Alcoholic cirrhosis of liver with ascites Patient Disposition: [facility] Living Condition: Stable Instructions: Thrombocytopenia (ED), Hematemesis (ED), Chronic Liver Disease (ED) Additional Instructions: Continue taking your medications as prescribed, you can take Zofran as needed for nausea, and come back to the emergency room for any further issues. Please follow-up with the liver specialist. Patient Language: Macedonian Prescriptions: New ondansetron 4 mg tablet,disintegrating 4 mg PO Q8H PRN (Reason: nausea and vomiting) Qty: 10 0RF No Action potassium chloride 20 mEq tablet,ER particles/crystals 20 meq PO BID furosemide 40 mg tablet 100 mg PO BID spironolactone [Aldactone] 50 mg tablet 125 mg PO Q12H midodrine 2.5 mg tablet 5 mg PO TID PRN (Reason: Hypotension) prednisone 10 mg tablet 10 mg PO AC ondansetron HCl 8 mg tablet 8 mg PO TID PRN (Reason: Nausea And Vomiting) levothyroxine 25 mcg tablet 25 mcg PO DAILY magnesium hydroxide [Milk of Magnesia] 400 mg/5 mL Suspension 30 ml PO PRN PRN (Reason: Constipation) trazodone 100 mg tablet 100 mg PO HS divalproex [Depakote ER] 500 mg Tablet Extended Release 24 Hr 500 mg PO BID lidocaine 5 % adhesive patch,medicated 1 patch topical DAILY Rx Instructions: on for 12 hours and off for 12 hours nicotine 21 mg/24 hr Patch 24 Hour 1 patch TRANSDERMAL DAILY Patient Comments: Patient states hasnt been given yet Fleet Enema 19-7 gram/118 mL Enema 118 ml RECTAL PRN Patient Comments: Patient states hasnt been given magnesium citrate [Citroma] Solution 296 ml PO ONCE Patient Comments: Patient states one time use Rx Instructions: if no results within an hour of completion of bowel protocol, contact senpablo-docusate sodium Tablet 2 tablet PO BID insulin lispro protamin-lispro [Humalog Mix 75-25 KwikPen] 100 unit/mL (75-25) insulin pen 5 unit SUBCUT AC Rx Instructions: Hold if BS less than 100, notify MD if less than 50 or greater than 500 cholestyramine-aspartame [Cholestyramine Light] 4 gram powder in packet 1 ea PO PRN PRN (Reason: Diarrhea) Patient Comments: Patient states doesnt take lactulose [Enulose] 10 gram/15 mL solution 45 ml PO QID Miralax 17 g PO DAILY insulin glargine 10 units subcut HS insulin lispro 100 unit/mL Insulin Pen 1 sliding scale dose SUBCUT USEASDIRECTD morphine 60 mg tablet extended release 60 mg PO TID Qty: 30 0RF oxycodone 20 mg tablet 10 mg PO Q4H PRN (Reason: pain) Qty: 30 0RF pregabalin 50 mg capsule 50 mg PO TID pantoprazole 40 mg tablet,delayed release (DR/EC) 40 mg PO Q12HR Qty: 60 2RF Follow-up/Referrals: Bisi,MD Matt [Primary Care Provider] -
[2024-07-30 01:25] LABS: Alanine Aminotransferase 18 U/L (6-50); Albumin Level 3.7 g/dL (3.5-5.1); Alkaline Phosphatase 174 U/L (38-126); Anion Gap 6 mmol/L (4-12); Aspartate Amino Transferase 36 U/L (17-59); Bilirubin,Total 0.6 mg/dL (0.2-1.3); Blood Urea Nitrogen 33 mg/dL (9-20); Calcium 9.3 mg/dL (8.4-10.2); Carbon Dioxide 37 mmol/L (22-30); Chloride 93 mmol/L (98-107); Estimated Glomerular Filt Rate 58; Glucose 92 mg/dL (65-110); Lipase 66 U/L (23-300); Sodium 136 mmol/L (137-145)
[2024-07-30 01:26] LABS: Prothrombin Time 13.6 Seconds (11.1-14.7)
[2024-07-30 01:27] LABS: Partial Thromboplastin Time 30.3 Seconds (22.3-36.8)
[2024-07-30 01:39] LABS: Platelet Count Result 53 k/mm3 (150-375)
[2024-07-30 01:44] LABS: Anisocytosis 1+; Hypochromasia 1+; Platelet Estimate Decreased (Adequate); Schistocytes None Seen
== END 2024-07-30 02:31 ==
PROVIDERS: Emergency Provider Emergency Medicine; PCP Hospitalist
DX: D69.6 Thrombocytopenia, unspecified (principal); K74.60 Unspecified cirrhosis of liver; R10.11 Right upper quadrant pain; R18.8 Other ascites; E11.9 Type 2 diabetes mellitus without complications; I50.30 Unspecified diastolic (congestive) heart failure; I11.0 Hypertensive heart disease with heart failure; I27.20 Pulmonary hypertension, unspecified; D64.9 Anemia, unspecified; K21.9 Gastro-esophageal reflux disease without esophagitis; M19.90 Unspecified osteoarthritis, unspecified site; F43.10 Post-traumatic stress disorder, unspecified; F17.210 Nicotine dependence, cigarettes, uncomplicated; Z66 Do not resuscitate; Z85.6 Personal history of leukemia; Z85.46 Personal history of malignant neoplasm of prostate; Z86.718 Personal history of other venous thrombosis and embolism; Z86.711 Personal history of pulmonary embolism; Z90.49 Acquired absence of other specified parts of digestive tract
CPT/HCPCS: 36415; 80053; 81003; 83690; 85025; 85055; 85610; 85730; 96374; 96375; 99284; J2405; J2470

== ENCOUNTER 2024-08-19 10:16 | Outpatient (CLI) | payer MEDICARE, MEDICAID, SELFPAY ==
--- NOTE | ~2024-08-19 | US_ITS ---
EXAMINATION: US paracentesis abd w/image DATE: 08/19/2024 11:22 INDICATION: Ascites. TECHNIQUE: The procedure and its risks, benefits, and alternatives were discussed with the patient. P otential risks discussed included bleeding and infection. The skin was prepped and draped in sterile fashion. 1% lidocaine was used for local anesthesia. Under ultrasound guidance, a 5 Fr catheter with trochar was advanced into the ascites in the right lower quadrant. Fluid was aspirated. The catheter was removed, and a dressing was applied. There were no immediate complications. FINDINGS: Ultrasound images demonstrate ascites and the catheter within the fluid. IMPRESSION: 1. Successful ultrasound-guided paracentesis yielding 2500 mL of yellow fluid. Reviewed, dictated and finalized at location A. [employer]
--- OUTSIDE RECORDS SUMMARY | 2024-08-19 11:09 | XMS_ITS | Clinical Summary ---
Author Organization [facility] [address] Address [address] [place] [address] Care Team Providers Care Pharmacy Student Name Role Phone Dwight Nascimento MD Unavailable Matt Mathews MD Primary Care Provider [phone] Allergies Active Allergy Reactions Criticality Noted Date [...] CR tabletIndications: Chronic diastolic congestive heart failure (HCC) Take 1 tablet (20 mEq total) [...] tabletIndications: Alcoholic cirrhosis of liver with ascites (HCC),Ascites due to alcoholic cirrhosis (HCC) Take 6 tablets (150 mg total) by mouth 2 (two) times a day 240 tablet 3 3 Active OneTouch Ultra Test strip CHECK 2-3 TIMES DAILY 2 Active blood-glucose meter (new test companyuch Ultra2 Meter) misc CHECK 2-3 TIMES PER DAY 2 Active cyclobenzaprine (FLEXERIL) 10 mg tablet Take 1 tablet (10 mg total) by mouth 3 (three) times a day as needed for muscle spasms 3 Active empagliflozin (Jardiance) 10 mg tablet Take 1 tablet (10 mg total) by mouth daily 2 Active lancets (new test companyuch Delica Plus Lancet) 30 gauge misc CHECK 2-3 TIMES DAILY 2 Active oxyCODONE (ROXICODONE) 10 mg tablet 5 Active morphine ER (MS CONTIN) 60 mg 12 hr tablet 5 Active pregabalin (LYRICA) 50 mg capsule Take 1 capsule (50 mg total) by mouth 2 (two) times a day Active Active Problems Problem Noted Date Diagnosed Date Bilateral pulmonary embolism 04/15/2023 Portal hypertension 04/15/2023 Prostate cancer 04/15/2023 Type 2 diabetes mellitus with hyperglycemia 06/2022 Esophageal varices without bleeding 01/28/2023 Assessment & Plan (02/02/2023 10:06 AM CDT): [...] 08/18/2022 Assessment & Plan (08/18/2022 1:51 PM ODD TICKET CLERK): Patient reports decreased edema; low continues to [...] 04/29/2022 Assessment & Plan (04/29/2022 1:45 PM ODD TICKET CLERK): To hospital for severe pain and diarrhea; [...] 09/22/2021 Assessment & Plan (07/10/2022 12:41 PM ODD TICKET CLERK): Continues to be present, causing pain and [...] medication Assessment & Plan (07/29/2022 2:02 PM ODD TICKET CLERK): Patient reports generally improved pain management, though decreased response to 5 mg of oxycodone; discussed with patient metabolism pathway limits use of hydrocodone due to risk of overdose and accumulation of metabolites Will increase oxycodone at next refill Assessment & Plan (06/13/2021 10:19 AM ODD TICKET CLERK): Patient was advised given concern for an incarcerated umbilical hernia to report to the er now. [place] He was asked to contact the office [...] outcome. Assessment & Plan (06/03/2021 6:29 PM ODD TICKET CLERK): Patient continues to complain of jeovany-umbilical abdominal pain and is requesting continued refills of Tramadol. When asked how many he had left he states he ran out of them a week ago -- He was just given #12 on 05/13 upon discharge from [place]. Today is 12/8 so if he ran [...] 7:11 PM CDT): Still awaiting records from [place] regarding the Cardiology evaluation of the pericardial [...] MEL. Assessment & Plan (06/03/2021 6:10 PM ODD TICKET CLERK): Positive MEL. Per Rheumatology evaluation there is no rheumatologic cause for his symptoms as he does not have any clinical features of rheumatologic connective tissues disease at this time. Hence none of his pain is related to an autoimmune condition at this point. Assessment & Plan (01/27/2021 10:05 PM CDT): Awaiting recommendation from [facility]. Has Oct appointment Assessment & Plan [...] management Assessment & Plan (06/03/2021 6:10 PM ODD TICKET CLERK): Chronic wedge compression fracture at T11. Patient is not complaining of any back pain. Cirrhosis of liver with ascites 11/12/2020 Overview (05/14/2021): He was then diagnosed with [...] requiring banding x 2 done locally at [facility] in [place], based on OSH records [...] paracentesis Assessment & Plan (08/18/2022 1:49 PM ODD TICKET CLERK): Not well controlled, patient had 5 L removed by paracentesis 1 week ago; is already refilled with ascitic fluid Patient to follow-up with cardiology on will likely need standing order for paracentesis Continue furosemide 80 mg b.i.d., spironolactone 100 mg daily Complicated by worsening peripheral edema Patient to follow-up with hepatology at end of week Assessment & Plan (08/04/2022 10:04 AM ODD TICKET CLERK): Not well controlled; continues to have significant [...] site Assessment & Plan (07/29/2022 2:01 PM ODD TICKET CLERK): Not well controlled, worsening; patient has recurrent [...] NAFLD Assessment & Plan (07/10/2022 12:43 PM ODD TICKET CLERK): Admitted for EGD with banding, required 3 [...] 10:13 AM CDT): Continue per GI at [facility] for his cirrhosis. Stressed importance of following up on a regular basis due his progressive disease. Assessment & Plan (09/15/2021 8:39 PM CDT): Continue per hepatology at [facility] Assessment & Plan (06/03/2021 6:09 PM ODD TICKET CLERK): Continue her GI at [facility], Dr. Jasso. He has been started on new medication to help decrease the ascites buildup. Encouraged him to follow their directions and keep his appointments. Strongly encouraged complete cessation of alcohol. I reviewed the lab results regarding alcohol use. He still adamant that he has not drank since his 51th birthday. Assessment & Plan (05/14/2021 12:07 PM ODD TICKET CLERK): - MELD labs today, and repeat autoimmune [...] followup with local GI. Await recommendation from [facility] hepatology Assessment & Plan (12/12/2020 6:56 [...] Patient would like to be referred to [facility] to see the hepatology group therefore continuity [...] Increased orthopnea. Will check abdominal US at [place] (patient to schedule on own as order and phone number provided). If has acute increase in sxs, encouraged to present to [facility] ER for further evaluation so GI/heapatology group can evaluate. He would like to transfer care to [facility]. Tramadol a few times a day is managing pain. Monitor closely Dr. Gordon, fruit harvester at [facility] returned my call on Thursday, November [...] PM CDT): Stressed importance of followup with fruit harvester. He states he has followup with Dr. Medrano at [facility] at the end of October and next week with Dr. Claros. He is having daily pain. Attempted to contact Dr Claros. Multiple messages left with staff and call not returned. Will await recommendations from Dr. Medrano. Discussed referral to [facility] fruit harvester --- patient has a family member in [...] diet Assessment & Plan (07/10/2022 12:44 PM ODD TICKET CLERK): Not well controlled, has been on insulin [...] 05/22/20212021 Assessment & Plan (05/22/2021 10:54 AM ODD TICKET CLERK): Obesity is unchanged. Discussed the patient's BMI. The BMI is above average. BMI management plan is completed. BMI Follow-up includes: nutrition counseling, exercise counseling and education provided. BMI 31.0-31.9,adult 05/22/2021 08/29/19 22 Assessment & Plan (05/22/2021 10:54 AM ODD TICKET CLERK): Obesity is unchanged. Discussed the patient's BMI. [...] Encounters Date Type Department Care Team Description 08/17/2024 Telephone [facility] Radiology, Interventional Radiology [id number] [place] [address] Mary Ann Basurto, RN Appointment 08/08/2024 Telephone [facility] Radiology [address] [facility] [place] [address] Mary Ann Armendariz, COREY 08/05/2024 Results Follow-Up [facility] Gastroenterology [address] [place] [address] Medical Office Building [address], [address] [place] [address] Elan Hood MD Alcoholic cirrhosis of liver with ascites (HCC) (Primary Dx) 08/02/2024 10:43 AM ODD TICKET CLERK - 08/02/2024 11:59 PM ODD TICKET CLERK Hospital Encounter [facility] [address] [place] [address] Alcoholic cirrhosis of liver with ascites (HCC); Cirrhosis of liver with ascites, unspecified hepatic cirrhosis type (HCC); Ascites due to alcoholic cirrhosis (HCC); Hepatic encephalopathy (HCC) Discharge Disposition: Discharge to home or self care 08/02/2024 10:42 AM ODD TICKET CLERK - 08/02/2024 11:59 PM ODD TICKET CLERK Hospital Encounter [facility] Radiology Echo Lab [address] [place] [address] Alcoholic cirrhosis of liver with ascites (HCC); Cirrhosis of liver with ascites, unspecified hepatic cirrhosis type (HCC); Ascites due to alcoholic cirrhosis (HCC); Hepatic encephalopathy (HCC) Discharge Disposition: Discharge to home or self care 07/01/2024 Telephone [facility] Gastroenterology [address] [facility] [address] [place] [address] [place] [address] Nancy Christensen 06/29/2024 Telephone [facility] Gastroenterology [address] [facility] [address] [place] [address] [place] [address] Julissa Molina LPN 06/23/2024 11:55 AM ODD TICKET CLERK Lab [facility] [address] [place] [address] Alcoholic cirrhosis of liver with ascites (HCC); Type 2 diabetes mellitus without complication, with long-term current use of insulin (HCC) 06/23/2024 9:40 AM ODD TICKET CLERK Office Visit [facility] Gastroenter[facility] [address] [facility] Medical Office [address] [place] [address] Elan Hood MD Alcoholic cirrhosis of liver with ascites (HCC) (Primary Dx); Type 2 diabetes mellitus without complication, with long-term current use of insulin (HCC); Alcohol use disorder; Hepatic encephalopathy (HCC) 06/10/2024 Orders Only [facility] Health Information Management [address] [place] [id number] Matt Mathews MD from Last 3 Months Immunizations Immunization Administration Dates Next Due Hep A, Adult [...] of breath) Pericardial effusion Anemia 08/2021 Cancer (HCC) 2018 Cataract 02/2021 Diabetes mellitus (HCC) 08/2021 Heart disease 07/2021 Hypertension 04/2021 Stroke (HCC) 10/2017 Peptic ulceration 04/2021 Mixed conductive and sensorineural hearing loss 1976 GI (gastrointestinal bleed) 04/2021 Kidney stone 2010 Family History Medical History Relation Name Comments Arthritis Father Brian marika Hypertension Father Brian marika Arthritis Mother Naomi marika Breast cancer Mother Naomi marika Cancer Mother Naomi marika Heart attack Mother Naomi marika Heart disease Mother Naomi nicole Relation Name Status Comments Father Brian nicole Alive Mother Naomi nicole Alive Social History Tobacco Use Types Packs/Day [...] on file Legal Sex Male 9:05 AM ODD TICKET CLERK Gender Identity Male 06/09/2023 11:43 AM ODD TICKET CLERK Sexual Orientation Straight 06/09/2023 11 :43 AM ODD TICKET CLERK Obstetrics History Last Filed Vital Signs Vital Sign Reading Time Taken Comments Blood Pressure 94/60 06/23/2024 10:30 AM ODD TICKET CLERK Pulse 80 06/23/2024 10:30 AM ODD TICKET CLERK Temperature 37 C (98.6 F) 06/23/2024 10:30 AM ODD TICKET CLERK Respiratory Rate 16 06/23/2024 10:30 AM ODD TICKET CLERK Oxygen Saturation 94% 06/23/2024 10:30 AM ODD TICKET CLERK Inhaled Oxygen Concentration - - Weight 68.6 kg (151 lb 3.2 oz) 06/23/2024 10:30 AM ODD TICKET CLERK Height 165.1 cm (5' 5 ) 06/23/2024 10:30 AM ODD TICKET CLERK Body Mass Index 25.16 06/23/2024 10:30 AM ODD TICKET CLERK Plan of Treatment Health Maintenance Due Date Last Done Comments Hepatitis C Screening 1970 Dilated Eye Exam 1971 Foot Exam 1971 Hepatitis B Screening 1989 Regular Well Visit/Exam 18-64 1989 Pneumococcal vaccine <65 (1 of 2 - PCV) 1990 Zoster Vaccine (1 of 2) 2021 Prostate Cancer Screening-PSA 10/19/2022 10/19/2020 Lipid Panel 07/28/2023 07/28/2022, 01/14, 10/19/2020, Additional history exists Albumin Creatinine Ratio, Urine 08/16/2023 Covid-19 Vaccine (3 - 2023-2 5 season) 2024 02/27/2021, 02/01/2021 Influenza Vaccine (#1) 2024 03/15/2022, 2012 Depression Screening 03/16/2024 03/16/2023, 10/30/2022, 10/21/2022, Additional history exists Hemoglobin A1C 12/21/2024 06/23/2024, 11/0 06/2022, 08/15/2022, Additional history exists eGFR 06/23/2025 06/23/2024, 12/14, 09/11/2022, Additional history exists DTaP/Tdap/Td Vaccine (2 - Td or Tdap) 01/22/2027 01/22/2017 Colon Cancer Screening-Colonoscopy 03/12/20322021, 04/02/2020 Medical Devices Implanted Type Area Staffing Consultant Device Identifier Shelf Expiration Date Model / Serial / Lot Rt Shoulder Rotator Cuff Repair [place] Suture Right: Shoulder Procedures Procedure Name Priority Date/Time Associated Diagnosis Comments MRI ABDOMEN LIVER W WO CONTRAST Schedule Routine, Read Routine (OP Routine) 08/02/2024 12:30 PM ODD TICKET CLERK Alcoholic cirrhosis of liver with ascites (HCC) Cirrhosis of liver with ascites, unspecified hepatic cirrhosis type (HCC) Ascites due to alcoholic cirrhosis (HCC) Hepatic encephalopathy (HCC) TRANSTHORACIC ECHO (TTE) COMPLETE W DOPPLER/CF WO CONTRAST Routine 08/02/2024 11:22 AM ODD TICKET CLERK Alcoholic cirrhosis of liver with ascites (HCC) Cirrhosis of liver with ascites, unspecified hepatic cirrhosis type (HCC) Ascites due to alcoholic cirrhosis (HCC) Hepatic encephalopathy (HCC) EGD Routine 07/05/2024 1:14 PM ODD TICKET CLERK EGFR Routine 06/23/2024 12:02 PM ODD TICKET CLERK Alcoholic cirrhosis of liver with ascites (HCC) DIFFERENTIAL AUTO Routine 06/23/2024 12:02 PM ODD TICKET CLERK Alcoholic cirrhosis of liver with ascites (HCC) CBC WITH AUTO DIFFERENTIAL Routine 06/23/2024 12:02 PM ODD TICKET CLERK Alcoholic cirrhosis of liver with ascites (HCC) COMPREHENSIVE METABOLIC PANEL Routine 06/23/2024 12:02 PM ODD TICKET CLERK Alcoholic cirrhosis of liver with ascites (HCC) PROTIME-INR Routine 06/23/2024 12:02 PM ODD TICKET CLERK Alcoholic cirrhosis of liver with ascites (HCC) [id number], TUMOR MARKER Routine 06/23/2024 12:02 PM ODD TICKET CLERK Alcoholic cirrhosis of liver with ascites (HCC) PHOSPHATIDYLETHANOL Routine 06/23/2024 12:02 PM ODD TICKET CLERK Alcoholic cirrhosis of liver with ascites (HCC) HEMOGLOBIN A1C Routine 06/23/2024 12:02 PM ODD TICKET CLERK Alcoholic cirrhosis of liver with ascites (HCC) Type 2 diabetes mellitus without complication, with long-term current use of insulin (HCC) SCAN - RADIOLOGY/IMAGING 06/10/2024 ALBUMIN CREATININE RATIO, URINE Routine 08/15/2022 POCT LIPID PANEL Routine 07/28/2022 9:31 AM ODD TICKET CLERK Lipid screening HM COLONOSCOPY Routine 03/12/2022 PSA SCREEN Routine 10/19/2020 10:46 AM CDT Prostate cancer screening from Last 3 Months or Most Recently Relevant to Health Maintenance Results * MRI Abdomen Liver W WO Contrast (08/02/2024 12:30 PM ODD TICKET CLERK) Anatomical Region Laterality Modality Body N/A Magnetic Resonan ce 08/02/2024 12:5 8 PM ODD TICKET CLERK Impressions 08/02/2024 1:03 PM ODD TICKET CLERK 1. Hepatic cirrhosis with portal hypertension including severe splenomegaly, moderate volume ascites, esophageal varices, and recanalization of the umbilical vein. 2. Subcentimeter arterially enhancing observation in hepatic segment 6 which equilibrates to background liver on delayed phases of imaging and has no correlate on other phases of imaging, favored to represent vascular shunting, but technically LR-3. 3. Otherwise, no suspicious lesion to suggest hepatocellular carcinoma. Dictated by: Matt Knight M.D. The radiology attending physician has personally reviewed this study, and had reviewed and/or edited this written report and agrees with it. Electronically signed by: Lulú Omer M.D. Narrative 08/02/2024 1:03 PM ODD TICKET CLERK EXAMINATION: MAGNETIC RESONANCE IMAGING OF THE ABDOMEN WITH AND WITHOUT CONTRAST HISTORY: 53-year-old man with alcoholic cirrhosis, currently undergoing evaluation prior to transjugular intrahepatic portosystemic shunt placement. TECHNIQUE: Magnetic resonance imaging of the abdomen was performed prior to and following the uneventful administration of intravenous Gadolinium contrast. Protocol: Liver Contrast: gadoterate 13 mL COMPARISON: None available. FINDINGS: Liver: Morphologic findings of hepatic cirrhosis with hepatic surface nodularity. No significant hepatic steatosis or iron deposition. - Bile ducts: No biliary ductal dilation. - Focal liver lesions: Patchy areas of peripheral arterial phase hyperenhancement with equilibration on subsequent delayed phases. 8 mm focus of arterial phase hyperenhancement in hepatic segment 6 (series 31 image 61), which equilibrates on subsequent phases of imaging and has no suspicious correlate on additional sequences. Otherwise, no suspicious hepatic lesion. - Vasculature: Patent hepatic and portal veins. Normal caliber abdominal aorta. Recanalization of the umbilical vein. Esophageal varices. Gallbladder: The gallbladder is is surgically absent. Pancreas: No pancreatic ductal dilation. Spleen: The spleen is markedly enlarged measuring up to 19.0 cm Adrenals: Normal. Kidneys: No hydronephrosis in either kidney. No suspicious renal lesion. Other Findings: Bilateral gynecomastia. Mild scarring versus atelectasis in the lung bases. Moderate volume ascites. Partially imaged umbilical hernia containing small volume ascites. No bowel wall thickening or evidence of bowel obstruction. No suspicious lymphadenopathy. No suspicious osseous lesions. Procedure Note Lulú Omer MD - 08/02/2024 EXAMINATION: MAGNETIC RESONANCE IMAGING OF THE ABDOMEN WITH AND WITHOUT CONTRAST HISTORY: 53-year-old man with alcoholic cirrhosis, currently undergoing evaluation prior to transjugular intrahepatic portosystemic shunt placement. TECHNIQUE: Magnetic resonance imaging of the abdomen was performed prior to and following the uneventful administration of intravenous Gadolinium contrast. Protocol: Liver Contrast: gadoterate 13 mL COMPARISON: None available. FINDINGS: Liver: Morphologic findings of hepatic cirrhosis with hepatic surface nodularity. No significant hepatic steatosis or iron deposition. - Bile ducts: No biliary ductal dilation. - Focal liver lesions: Patchy areas of peripheral arterial phase hyperenhancement with equilibration on subsequent delayed phases. 8 mm focus of arterial phase hyperenhancement in hepatic segment 6 (series 31 image 61), which equilibrates on subsequent phases of imaging and has no suspicious correlate on additional sequences. Otherwise, no suspicious hepatic lesion. - Vasculature: Patent hepatic and portal veins. Normal caliber abdominal aorta. Recanalization of the umbilical vein. Esophageal varices. Gallbladder: The gallbladder is is surgically absent. Pancreas: No pancreatic ductal dilation. Spleen: The spleen is markedly enlarged measuring up to 19.0 cm Adrenals: Normal. Kidneys: No hydronephrosis in either kidney. No suspicious renal lesion. Other Findings: Bilateral gynecomastia. Mild scarring versus atelectasis in the lung bases. Moderate volume ascites. Partially imaged umbilical hernia containing small volume ascites. No bowel wall thickening or evidence of bowel obstruction. No suspicious lymphadenopathy. No suspicious osseous lesions. IMPRESSION: 1. Hepatic cirrhosis with portal hypertension including severe splenomegaly, moderate volume ascites, esophageal varices, and recanalization of the umbilical vein. 2. Subcentimeter arterially enhancing observation in hepatic segment 6 which equilibrates to background liver on delayed phases of imaging and has no correlate on other phases of imaging, favored to represent vascular shunting, but technically LR-3. 3. Otherwise, no suspicious lesion to suggest hepatocellular carcinoma. Dictated by: Matt Knight M.D. The radiology attending physician has personally reviewed this study, and had reviewed and/or edited this written report and agrees with it. Electronically signed by: Lulú Omer M.D. us Elan Hood MD IMG MRI PROCEDURES Final Resul t * TRANSTHORACIC ECHO (TTE) COMPLETE W DOPPLER/CF WO CONTRAST (08/02/2024 11:22 AM ODD TICKET CLERK) Anatomical Region Laterality Modality Ultrasound 08/02/2024 10:4 4 AM ODD TICKET CLERK Narrative 08/02/2024 1:29 PM ODD TICKET CLERK [facility] Cardiac [place] [address] Transthoracic Echocardiographic Report Patient Name: MATT NICOLE E : 1970 (54y 6m) Gender: M Study Date: 08/02/2024 10:44:37 AM Ht(Inch): 65 Wt(Lb): 151.24 BSA: 1.77 [employer] Advisor: EVON Location: [facility] Order Provider: ELAN HOOD Heart Rate: 64 BMI: 25.16 BP: 122 / 80 Quality: The study images were of technically good quality. Ref Provider: ELAN HOOD PROCEDURES: Echocardiographic Report: ([id number]) Transthoracic complete echo, 2D, spectral and tissue Doppler, color flow Doppler, M-mode. INDICATIONS: Pre TIPS procedure, K70.31 Alcoholic cirrhosis of liver with ascites, K74.60 Unspecified cirrhosis of liver, R18.8 Other ascites, K70.31 Alcoholic cirrhosis of liver with ascites, and K76.82 Hepatic encephalopathy. FINDINGS: Left Ventricle: Normal left ventricular size based on volume index. Concentric LV remodeling. Normal left ventricular systolic function. The Ejection Fraction (Lynn's) is measured at 70 %. Left ventricular diastolic parameters are consistent with normal diastolic function. The average global longitudinal strain rate is abnormal. The LV global strain is: -15.6 %. Right Ventricle: Normal right ventricular size. Normal right ventricular systolic function. Left Atrium: The left atrium is normal in size. Right Atrium: The right atrium is normal in size. Atrial Septum: The interatrial septum is normal in appearance. Mitral Valve: Normal mitral valve leaflet structure. No mitral regurgitation seen. Aortic Valve: Trileaflet aortic valve. No aortic regurgitation seen. No aortic valve stenosis. Tricuspid Valve: The tricuspid valve demonstrates normal leaflet structure. No tricuspid regurgitation seen. The estimated right ventricular systolic pressure is 25 mmHg. Pulmonic Valve: The pulmonic valve demonstrates normal leaflet structure. No evidence of pulmonic regurgitation. Pericardium: Normal pericardium without evidence of pericardial effusion. Aorta: The aortic root is normal in size when indexed. IVC: IVC is normal in size. The estimated RA pressure is 3 mmHg. CONCLUSIONS: 1. Concentric LV remodeling. Normal left ventricular systolic function. The Ejection Fraction (Lynn's) is measured at 70 %. Left ventricular diastolic parameters are consistent with normal diastolic function. The average global longitudinal strain rate is abnormal. 2. Normal right ventricular size. Normal right ventricular systolic function. 3. There is no significant valvular heart disease. 4. IVC is normal in size. The estimated RA pressure is 3 mmHg. MEASUREMENTS: 2D/MM Value Range Doppler Value Range LVIDd 2D 4.15 cm [ 4.20 - 5.80 ] AV Peak Asif 1.14 m/s [ 1.00 - 1.70 ] LVIDs 2D 2.45 cm [ 2.50 - 4.00 ] AV Peak PG 5.20 IVSd 2D 0.86 cm [ 0.60 - 1.00 ] AV Mean PG 2.60 mmHg LVPWd 2D 0.92 cm [ 0.60 - 1.00 ] AV VTI 22.12 cm LV Thickness Ratio 0.93 LVOT Peak Asif 0.92 m/s [ 0.70 - 1.10 ] LV FS 2D 41.06 % [ 25.00 - 43.00 ] LVOT Peak PG 3.39 LV Mass 2D 116.92 g LVOT Mean PG 2.03 mmHg LV Mass Index 2D 66.06 g/m2 LVOT VTI 20.61 cm RWT 0.44 LVOT Diam 1.72 cm EDV Mod BP 89.56 ml [ 62.00 - 150.00 ] SHELIA VTI 2.16 cm2 LV EDV Index 50.60 ml/m2 LVOT/AV VTI 0.93 - Dimensionless index (DVI) ESV Mod BP 26.99 ml [ 21.00 - 61.00 ] MV E Peak Asif 0.87 m/s [ 0.60 - 1.30 ] EF Mod BP 70 % [ 52 - 72 ] MV A Peak Asif 0.85 m/s [ 1.00 - 1.20 ] LV GLS -15.6 % [ -18.0 - -16.0 ] MV E/A 1.02 ratio [ 0.80 - 1.50 ] LA Length 2C 5.82 cm MV Decel Time 221.71 msec [ 104.00 - 258.00 ] LA Length 4C 5.44 cm Med E` Asif 6.74 cm/sec [ 8.00 - 15.00 ] LA Volume BP 46.17 ml Lat E` Asif 7.55 cm/sec [ 10.00 - 15.00 ] LA Volume Index 26.08 ml/m2 [ 16.00 - 34.00 ] Average E/E` 12.18 RV Base Dimen 2D 3.2 cm [ 2.5 - 4.2 ] RV S` 11.35 cm/sec TAPSE 1.82 cm [ 1.71 - 5.00 ] TR Peak Asif 2.32 m/s [ 1.00 - 2.80 ] RA Volume 33.25 ml TR Peak PG 21.5 RA Volume Index 18.79 ml/m2 RA Pressure 3.00 mmHg AoR Diam 2D 2.01 cm [ 3.10 - 3.70 ] RVSP 24.50 Ao Root Index 1.14 cm/m2 [ 1.00 - 2.00 ] - ATTESTATION: I have reviewed and interpreted the pertinent images and measurements of this study. I attest to the conclusions in the final report that is provided above. DISCLAIMER: The study images and the final report will be retained in the patient chart by the [facility] for the legally required time period. This chart constitutes the legal record of any testing performed. Electronically Signed By: Rasheeda Manzanares MD 08/02/2024 1:28:05 PM ODD TICKET CLERK Electronically Signed By: Rasheeda Manzanares MD 08/02/2024 1:28:05 PM ODD TICKET CLERK Procedure Note Rasheeda Manzanares MD - 08/02/2024 [facility] Cardiac [place] [address] Transthoracic Echocardiographic Report Patient Name: MATT NICOLE E : 1970 (54y 6m) Gender: M Study Date: 08/02/2024 10:44:37 AM Ht(Inch): 65 Wt(Lb): 151.24 BSA: 1.77 [employer] Advisor: EVON Location: [facility] Order Provider: ELAN HOOD Heart Rate: 64 BMI: 25.16 BP: 122 / 80 Quality: The study images were oftechnically good quality. Ref Provider: ELAN HOOD PROCEDURES: Echocardiographic Report: ([id number]) Transthoracic complete echo, 2D,spectral and tissue Doppler, color flow Doppler, M-mode. INDICATIONS: Pre TIPS procedure, K70.31 Alcoholic cirrhosis of liver with ascites,K74.60 Unspecified cirrhosis of liver, R18.8 Other ascites, K70.31 Alcoholic cirrhosis ofliver with ascites, and K76.82 Hepatic encephalopathy. FINDINGS: Left Ventricle: Normal left ventricular size based on volume index.Concentric LV remodeling. Normal left ventricular systolic function. The EjectionFraction (Lynn's) is measured at 70 %. Left ventricular diastolic parameters are consistentwith normal diastolic function. The average global longitudinal strain rate isabnormal. The LV global strain is: -15.6 %. Right Ventricle: Normal right ventricular size. Normal right ventricularsystolic function. Left Atrium: The left atrium is normal in size. Right Atrium: The right atrium is normal in size. Atrial Septum: The interatrial septum is normal in appearance. Mitral Valve: Normal mitral valve leaflet structure. No mitralregurgitation seen. Aortic Valve: Trileaflet aortic valve. No aortic regurgitation seen. Noaortic valve stenosis. Tricuspid Valve: The tricuspid valve demonstrates normal leafletstructure. No tricuspid regurgitation seen. The estimated right ventricular systolic pressure is25 mmHg. Pulmonic Valve: The pulmonic valve demonstrates normal leaflet structure.No evidence of pulmonic regurgitation. Pericardium: Normal pericardium without evidence of pericardialeffusion. Aorta: The aortic root is normal in size when indexed. IVC: IVC is normal in size. The estimated RA pressure is 3 mmHg. CONCLUSIONS: 1. Concentric LV remodeling. Normal left ventricular systolic function.The Ejection Fraction (Lynn's) is measured at 70 %. Left ventricular diastolicparameters are consistent with normal diastolic function. The average global longitudinalstrain rate is abnormal. 2. Normal right ventricular size. Normal right ventricular systolicfunction. 3. There is no significant valvular heart disease. 4. IVC is normal in size. The estimated RA pressure is 3 mmHg. MEASUREMENTS: 2D/MM Value Range DopplerValue Range LVIDd 2D 4.15 cm [ 4.20 - 5.80 ] AV Peak Vel1.14 m/s [ 1.00 - 1.70 ] LVIDs 2D 2.45 cm [ 2.50 - 4.00 ] AV Peak PG5.20 IVSd 2D 0.86 cm [ 0.60 - 1.00 ] AV Mean PG2.60 mmHg LVPWd 2D 0.92 cm [ 0.60 - 1.00 ] AV VTI22.12 cm LV Thickness Ratio 0.93 LVOT Peak Vel0.92 m/s [ 0.70 - 1.10 ] LV FS 2D 41.06 % [ 25.00 - 43.00 ] LVOT Peak PG3.39 LV Mass 2D 116.92 g LVOT Mean PG2.03 mmHg LV Mass Index 2D 66.06 g/m2 LVOT VTI20.61 cm RWT 0.44 LVOT Diam1.72 cm EDV Mod BP 89.56 ml [ 62.00 - 150.00 ] SHELIA VTI2.16 cm2 LV EDV Index 50.60 ml/m2 LVOT/AV VTI0.93 - Dimensionless index (DVI) ESV Mod BP 26.99 ml [ 21.00 - 61.00 ] MV E Peak Vel0.87 m/s [ 0.60 - 1.30 ] EF Mod BP 70 % [ 52 - 72 ] MV A Peak Vel0.85 m/s [ 1.00 - 1.20 ] LV GLS -15.6 % [ -18.0 - -16.0 ] MV E/A1.02 ratio [ 0.80 - 1.50 ] LA Length 2C 5.82 cm MV Decel Hbrc985.71 msec [ 104.00 - 258.00 ] LA Length 4C 5.44 cm Med E` Vel6.74 cm/sec [ 8.00 - 15.00 ] LA Volume BP 46.17 ml Lat E` Vel7.55 cm/sec [ 10.00 - 15.00 ] LA Volume Index 26.08 ml/m2 [ 16.00 - 34.00 ] Average E/E`12.18 RV Base Dimen 2D 3.2 cm [ 2.5 - 4.2 ] RV S`11.35 cm/sec TAPSE 1.82 cm [ 1.71 - 5.00 ] TR Peak Vel2.32 m/s [ 1.00 - 2.80 ] RA Volume 33.25 ml TR Peak PG21.5 RA Volume Index 18.79 ml/m2 RA Pressure3.00 mmHg AoR Diam 2D 2.01 cm [ 3.10 - 3.70 ] RVSP24.50 Ao Root Index 1.14 cm/m2 [ 1.00 - 2.00 ] - ATTESTATION: I have reviewed and interpreted the pertinent images and measurements ofthis study. I attest to the conclusions in the final report that is provided above. DISCLAIMER: The study images and the final report will be retained in the patientchart by the [facility] for the legally required time period. This chart constitutesthe legal record of any testing performed. Electronically Signed By: Rasheeda Manzanares MD 08/02/2024 1:28:05 PM ODD TICKET CLERK Electronically Signed By: Rasheeda Manzanares MD 08/02/2024 1:28:05 PM ODD TICKET CLERK us Elan Hood MD CV ECHO PROCEDURES Final Resul t * EGD -[facility] (07/05/2024 1:14 PM ODD TICKET CLERK) Anatomical Region Laterality Modality Other Historical Provider GI PROCEDURE ORDERABLES F inal Result * Phosphatidylethanol (06/23/2024 12:02 PM ODD TICKET CLERK) PHOSPHATIDYLETHANOL Negative . [facility] Comment: ADDITIONAL INFORMATION This report is intended for use in clinical monitoring and management of patients. It is not intended for use in employment-related testing. This test was developed and its performance characteristics determined by [facility] in a manner consistent with CLIA requirements. This test has not been cleared or approved by the U.S. Food and Drug Administration. Test Performed by: [facility] - [address] [address] Hospice Volunteer Coordinator: Smooth Goff Ph.D.; CLIA# [id number] PEth 16:0/18:1 (POPEth)by LC-MS/MS <10 Cutoff: 10 [...] well established Blood 06/23/2024 12:0 2 PM ODD TICKET CLERK 06/23/2024 12:16 PM ODD TICKET CLERK Elan Hood MD LAB BLOOD ORDERABLES Final Res ult [facility] [address] [facility]. [place] [address] Puri ref Lab * (ABNORMAL) eGFR (06/23/2024 12:02 PM ODD TICKET CLERK) eGFR 55(L) >=60 mL/min/1. 73 m2 Comment: [...] reviewed 2021. Blood 06/23/2024 12:0 2 PM ODD TICKET CLERK 06/23/2024 12:16 PM ODD TICKET CLERK us Elan Hood MD LAB BLOOD ORDERABLES Final Res ult [facility] [address] [facility]. [place] [address] * Differential, auto (06/23/2024 12:02 PM ODD TICKET CLERK) Neutrophil abs 4.3 1.5 - 6.5 K/cumm Imm gran abs 0.0 0.0 - 0.1 K/cumm [facility] Lymphocyte abs 0.8 0.8 - 3.3 K/cumm [facility] Monocyte abs 0.8 0.2 - 0.8 K/cumm [facility] Eosinophil abs 0.1 0.0 - 0.5 K/cumm [facility] Basophil abs 0.0 0.0 - 0.1 K/cumm [facility] Neutrophil pct 71.3 % [facility] Comment: Interpretive Data Percent cell count reference ranges are not reported, since discordance with absolute values may lead to misinterpretation of CBC data. Current Interpretive Data was last revised on 2017. Imm gran pct 0.5 % [facility] Comment: Interpretive Data Percent cell count reference [...] on 2017. Eosinophil pct 1.8 % [facility] Comment: Interpretive Data Percent cell count reference ranges are not reported, since discordance with absolute values may lead to misinterpretation of CBC data. Current Interpretive Data was last revised on 2017. Basophil pct 0.5 % [facility] Comment: Interpretive Data Percent cell count reference ranges are not reported, since discordance with absolute values may lead to misinterpretation of CBC data. Current Interpretive Data was last revised on 2017. Blood 06/23/2024 12:0 2 PM ODD TICKET CLERK 06/23/2024 12:16 PM ODD TICKET CLERK us Elan Hood MD LAB BLOOD ORDERABLES Final Res ult [facility] [address] [facility]. [place] [address] * (ABNORMAL) CBC with auto differential (06/23/2024 12:02 PM ODD TICKET CLERK) WBC 6.1 3.8 - 9.9 K/cumm Hgb [...] [facility] Blood 06/23/2024 12:0 2 PM ODD TICKET CLERK 06/23/2024 12:16 PM ODD TICKET CLERK us Elan Hood MD LAB BLOOD ORDERABLES Final Res ult [facility] [address] [facility]. [place] [address] * [id number], Tumor Marker (06/23/2024 12:02 PM ODD TICKET CLERK) alpha Fetoprotein <1.8 <=8.3 ng/mL Comment: Interpretive [...] ng/ml >1 year 0.0 8.3 ng/ml References Tsgloria Y. et al. J. Ped Surg 1978;13:155-156 Jake S. et al. Clin Chem Lab Med 2018;57:783-797 Brenden Ellsworth et al. Clin Chem 2014;8615-6724. Current interpretive data was last revised 2022. Testing performed by: [facility], [address] [place] [address]., [id number] Blood 06/23/2024 12:0 2 PM ODD TICKET CLERK 06/23/2024 2:22 PM ODD TICKET CLERK Elan Hood MD LAB BLOOD ORDERABLES Final Res ult Performing Organization Address [facility] de Phone Number [facility] [address] [address] [place] [address] * Protime-INR (06/23/2024 12:02 PM ODD TICKET CLERK) PT 11.6 9.7 - 13.0 sec INR 1.07 0.90 - 1.20 [facility] Comment: Interpretive data Oral anticoagulant therapeutic ranges: Venous thromboembolism prophylaxis or treatment: 2.0-3.0 CARDIOLOGY Standard range: 2.0-3.0 High-intensity range: 2.5-3.5 Refer to indication-specific guidelines for appropriate target ranges for prosthetic heart valve replacement. Current interpretive data was last revised on 2019. Blood 06/23/2024 12:0 2 PM ODD TICKET CLERK 06/23/2024 12:16 PM ODD TICKET CLERK Elan Hood MD LAB BLOOD ORDERABLES Final Res ult Performing Organization Address [facility] Co de Phone Number [facility] [address] [address] [employer] [place], [place] [id number] * Hemoglobin A1c (06/23/2024 12:02 PM ODD TICKET CLERK) Hgb A1C 5.0 4.0 - 5.6 % Estimated Average Glucose 97 mg/dL [facility] Comment: The ADA recommends reporting an estimated Average Glucose (eAG) with all Hemoglobin A1c results using the equation derived from a study of 507 normal and diabetic adults. Minority populations were underrepresented and children were not included. (Diabetes Care 31:1761-7199, 2008). The eAG is not equivalent to a fasting glucose. Blood 06/23/2024 12:0 2 PM ODD TICKET CLERK 06/23/2024 12:16 PM ODD TICKET CLERK us Elan Hood MD LAB BLOOD ORDERABLES Final Res ult [facility] [address] [facility]. [place] [address] * (ABNORMAL) Comprehensive metabolic panel (06/23/2024 12:02 PM ODD TICKET CLERK) Sodium 136 135 - 145 mmol/L Potassium, [...] [facility] Blood 06/23/2024 12:0 2 PM ODD TICKET CLERK 06/23/2024 12:16 PM ODD TICKET CLERK Elan Hood MD LAB BLOOD ORDERABLES Final Res ult [facility] [address] [facility]. [place] [address] * SCAN - RADIOLOGY/IMAGING (06/10/2024) Anatomical Region Laterality Modality Other Matt Mathews MD Final Res ult * Albumin Creatinine Ratio, Urine (08/15/2022) Urine Matt Mathews MD LAB URINE ORDERABLES Amanda l Result * POCT lipid panel (07/28/2022 9:31 AM ODD TICKET CLERK) Cholesterol, POC 231 mg/dL HDL, POC 42 mg/dL Triglycerides, POC 112 mg/dL LDL Cholesterol POC 168 mg/dL Chol/HDL Ratio, POC 4.0 Non-HDL Cholesterol, POC 190 mg/dL Cholesterol Total, POC 231 mg/dL Capillary blood 07/28/2022 9 :31 AM ODD TICKET CLERK Anais Chowdary MD POINT OF CARE TEST [...] Opal BORRERO LAB BLOOD ORDERABLES Final Result [facility] [address] [place] [address] from Last 3 Months or Most Recently Relevant to Health Maintenance Insurance [facility] MEDICARE IDSD [facility] MEDICARE Care Teams Pharmacy Student Relationship Specialty Start Date End Date Matt Mathews MD [address] [place] [address] PCP - General Family Medicine 03/31/22 Dwight Nascimento MD Consulting Physician Internal Medicine 09/20/21
--- OUTSIDE RECORDS SUMMARY | 2024-08-19 11:09 | XMS_ITS | CONTINUITY OF CARE DOCUMENT ---
Author Name rell, rell Address Unknown Organization [facility] [address] Address [address] [facility] [address] [place] [address] Phone [phone] Care Team Providers Care Designated Broker Name Role Phone Goyo KONG, Sunny Unavailable Sunny Nance MD Unavailable [phone] PROBLEMS Condition Status Date Provider Notes [...] In-person encounter Office Visit Sunny Nance MD [place] [facility] Tobacco abuserenal stonePREDIABETES;[facility] maintenance examinationVitamin D deficiencyHyperlipidemiaOverweightFAMILY HISTORY OF [...] nda Her blood pressure, systolic 122 mm[Hg] [facility] oxygen saturation, oximetry 98 % [facility] respiratory rate E&M 16 /min [place] [facility] pulse rate 90 /min [facility] weight E&M 171.8 [lb_av] [facility] height E&M 65 [in_i] [facility] ALLERGIES No Known Drug Allergies HISTORY [...] MD number of grandchildren Sunny Nance MD [facility] smoking status Current every day smoker W wilmer Her FUNCTIONAL STATUS Date Observation Value Provider periodic limb movement index absent (0) Jeff Herbert MD FAMILY HISTORY Family Member Condition Mother Family History of Co ronary Artery Disease: INSURANCE PROVIDERS Payer name Policy type / Coverage type [place] [employer] [place] [employer] MEDICAID (2) Medicaid [id number] ADVANCE DIRECTIVES Name Date DISCUSSED - NO DECISION MADE TREATMENT PLAN Date Name Performer Cardiology Sunny Nance MD Cardiology Snuny Nance MD Cardiology Sunny Nance MD Cardiology Sunny Nance MD Cardiology:nml uacr Sunny duque MD Cardiology:nml psa, and tsh and mi micro computer specialist alvbuymin Sunny Nance MD Date Name STR - Routine Complete Echo CT, Coronary Calcium Score DLCO - 31077 FRC - 95223 FVC - 23067 HISTORY OF PROCEDURES Procedure Date Procedure Name Provider Procedure Notes S tatus FVC / MVV with bronchodilator - 16528 Sunny Nance MD completed FRC - 06415 Sunny Nance MD complet ed SpO2 - 30476 Sunny Nance MD comple bebeto DLCO - 79241 Sunny Nance MD comple bebeto Stress EKG Saadrianneus Erik catalan MD completed EKG Sunny Nance MD complete d SNOMED-CT: [id number] Current Medications Documented Sunny Nance MD completed
--- OUTSIDE RECORDS SUMMARY | 2024-08-19 11:09 | XMS_ITS | Referral Summary ---
Author Organization [facility] [address] Address [address] [place] [address] Care Team Providers Care Microfilm Technician Name Role Phone Dwight Nascimento MD Unavailable Matt Mathews MD Primary Care Provider [phone] Encounters Date Type Department Care Team Description 08/17/2024 Telephone [facility] Radiology, Interventional Radiology [address] [place] [address] Mary Ann Basurto, COREY Appointment 08/08/2024 Telephone [facility] Radiology [address] [place] [address] Mary Ann Armendariz, COREY 08/05/2024 Results Follow-Up [facility] Gastroenterology [address] [facility] Medical Office Building [address], [address] [place] [address] Elan Hood MD Alcoholic cirrhosis of liver with ascites (HCC) (Primary Dx) 08/02/2024 10:43 AM WARRANTY COORDINATOR - 08/02/2024 11:59 PM WARRANTY COORDINATOR Hospital Encounter [facility] Imaging [address] [place] [address] Alcoholic cirrhosis of liver with ascites (HCC); Cirrhosis of liver with ascites, unspecified hepatic cirrhosis type (HCC); Ascites due to alcoholic cirrhosis (HCC); Hepatic encephalopathy (HCC) Discharge Disposition: Discharge to home or self care 08/02/2024 10:42 AM WARRANTY COORDINATOR - 08/02/2024 11:59 PM WARRANTY COORDINATOR Hospital Encounter [facility] Radiology [place] [facility] [address] [place] [address] Alcoholic cirrhosis of liver with ascites (HCC); Cirrhosis of liver with ascites, unspecified hepatic cirrhosis type (HCC); Ascites due to alcoholic cirrhosis (HCC); Hepatic encephalopathy (HCC) Discharge Disposition: Discharge to home or self care 07/01/2024 Telephone [facility] Gastroenterology [address] [facility] Medicine 12th [place] [address] [place] [address] Nancy Christensen 06/29/2024 Telephone [facility] Gastroenterology [address] [facility] 12th [place] [address] [place] [address] Julissa Molina LPN 06/23/2024 11:55 AM WARRANTY COORDINATOR Lab [facility] [address] [place] [address] Alcoholic cirrhosis of liver with ascites (HCC); Type 2 diabetes mellitus without complication, with long-term current use of insulin (HCC) 06/23/2024 9:40 AM WARRANTY COORDINATOR Office Visit [facility] Gastroenterology [address] [place] [address] Medical Office Building [address], [address] [place] [address] Elan Hood MD Alcoholic cirrhosis of liver with ascites (HCC) (Primary Dx); Type 2 diabetes mellitus without complication, with long-term current use of insulin (HCC); Alcohol use disorder; Hepatic encephalopathy (HCC) 06/10/2024 Orders Only [facility] Health Information Management [address] [place] [address] Matt Mathews MD from Last 3 Months Allergies Active Allergy Reactions Criticality Noted Date Comments Ceftriaxone Itching Low 04/15/2023 Ciprofloxacin Itching Low 04/15/2023 Medications ascorbic acid (VITAMIN C) 500 mg tablet,chewable 1 tablet/chew tab (500 mg total) daily Active pantoprazole DR (PROTONIX) 40 mg EC tablet Take 1 tablet (40 mg total) by mouth every 12 (twelve) hours Active pen needle, diabetic (UltiCare Pen Needle) [...] a day 240 tablet 3 3 Active AFTER-MOUSETouch Ultra Test strip CHECK 2-3 TIMES DAILY 2 Active blood-glucose meter (AFTER-MOUSETouch Ultra2 Meter) misc CHECK 2-3 TIMES PER DAY 2 Active cyclobenzaprine (FLEXERIL) 10 mg tablet Take 1 tablet (10 mg total) by mouth 3 (three) times a day as needed for muscle spasms 3 Active empagliflozin (Jardiance) 10 mg tablet Take 1 tablet (10 mg total) by mouth daily 2 Active lancets (AFTER-MOUSETouch Delica Plus Lancet) 30 gauge misc CHECK [...] 08/18/2022 Assessment & Plan (08/18/2022 1:51 PM WARRANTY COORDINATOR): Patient reports decreased edema; low continues to [...] 04/29/2022 Assessment & Plan (04/29/2022 1:45 PM WARRANTY COORDINATOR): To hospital for severe pain and diarrhea; [...] 09/22/2021 Assessment & Plan (07/10/2022 12:41 PM WARRANTY COORDINATOR): Continues to be present, causing pain and [...] medication Assessment & Plan (07/29/2022 2:02 PM WARRANTY COORDINATOR): Patient reports generally improved pain management, though decreased response to 5 mg of oxycodone; discussed with patient metabolism pathway limits use of hydrocodone due to risk of overdose and accumulation of metabolites Will increase oxycodone at next refill Assessment & Plan (06/13/2021 10:19 AM WARRANTY COORDINATOR): Patient was advised given concern for an incarcerated umbilical hernia to report to the er now. He is going to [facility]. He was asked to contact the office [...] outcome. Assessment & Plan (06/03/2021 6:29 PM WARRANTY COORDINATOR): Patient continues to complain of jeovany-umbilical abdominal pain and is requesting continued refills of Tramadol. When asked how many he had left he states he ran out of them a week ago -- He was just given #12 on 05/13 upon discharge from [facility]. Today is 05/22 so if he ran [...] 7:11 PM CDT): Still awaiting records from [facility] regarding the Cardiology evaluation of the pericardial [...] MEL. Assessment & Plan (06/03/2021 6:10 PM WARRANTY COORDINATOR): Positive MEL. Per Rheumatology evaluation there is no rheumatologic cause for his symptoms as he does not have any clinical features of rheumatologic connective tissues disease at this time. Hence none of his pain is related to an autoimmune condition at this point. Assessment & Plan (01/27/2021 10:05 PM CDT): Awaiting recommendation from [facility] Rheum. Has Oct appointment Assessment [...] management Assessment & Plan (06/03/2021 6:10 PM WARRANTY COORDINATOR): Chronic wedge compression fracture at T11. Patient [...] No hx of HE/jaundice. MRCP 05/2020 at [facility] with cirrhosis/hepatic steatosis, 1.8 cm [...] requiring banding x [address] [facility] in [place], based on OSH records 1 EGD was [...] paracentesis Assessment & Plan (08/18/2022 1:49 PM WARRANTY COORDINATOR): Not well controlled, patient had 5 L removed by paracentesis 1 week ago; is already refilled with ascitic fluid Patient to follow-up with cardiology on will likely need standing order for paracentesis Continue furosemide 80 mg b.i.d., spironolactone 100 mg daily Complicated by worsening peripheral edema Patient to follow-up with hepatology at end of week Assessment & Plan (08/04/2022 10:04 AM WARRANTY COORDINATOR): Not well controlled; continues to have significant [...] site Assessment & Plan (07/29/2022 2:01 PM WARRANTY COORDINATOR): Not well controlled, worsening; patient has recurrent [...] NAFLD Assessment & Plan (07/10/2022 12:43 PM WARRANTY COORDINATOR): Admitted for EGD with banding, required 3 [...] 10:13 AM CDT): Continue per GI at [facility] for his cirrhosis. Stressed importance of following up on a regular basis due his progressive disease. Assessment & Plan (09/15/2021 8:39 PM CDT): Continue per hepatology at [facility] Assessment & Plan (06/03/2021 6:09 PM WARRANTY COORDINATOR): Continue her GI at [facility], Dr. Jasso. He has been started on new medication to help decrease the ascites buildup. Encouraged him to follow their directions and keep his appointments. Strongly encouraged complete cessation of alcohol. I reviewed the lab results regarding alcohol use. He still adamant that he has not drank since his 51th birthday. Assessment & Plan (05/14/2021 12:07 PM WARRANTY COORDINATOR): - MELD labs today, and repeat autoimmune [...] followup with local GI. Await recommendation from [facility] hepatology Assessment & Plan (12/12/2020 [...] Patient would like to be referred to [facility] to see the hepatology group therefore continuity of care a since they are part of the [facility] system and can share medical records. Will make that referral Assessment & Plan (12/02/2020 10:30 AM CDT): Per GI note, unknown etiology of the cirrhosis/ascites. However, I have placed a call to Dr. Rodriguez, Attending GI at [facility] to discuss his recent labs, most importantly the positive MEL at 1:1280. I left a message on 11/20 and will await return call. I have concern for possible autoimmune hepatitis as the underlying cause. Patient appears to have increased ascites over the past few weeks. Increased pain. Increased orthopnea. Will check abdominal US at [facility] (patient to schedule on own as order and phone number provided). If has acute increase in sxs, encouraged to present to [facility] ER for further evaluation so GI/heapatology group can evaluate. He would like to transfer care to [facility]. Tramadol a few times a day is managing pain. Monitor closely Dr. Gordon, painter structural steel at [facility] returned my call on November 23. [...] PM CDT): Stressed importance of followup with painter structural steel. He states he has followup with Dr. Medrano at [facility] at the end of October and next week with Dr. Claros. He is having daily pain. Attempted to contact Dr Claros. Multiple messages left with staff and call not returned. Will await recommendations from Dr. Medrano. Discussed referral to [facility] painter structural steel --- patient has a family member in [...] diet Assessment & Plan (07/10/2022 12:44 PM WARRANTY COORDINATOR): Not well controlled, has been on insulin [...] 05/22/20212021 Assessment & Plan (05/22/2021 10:54 AM WARRANTY COORDINATOR): Obesity is unchanged. Discussed the patient's BMI. The BMI is above average. BMI management plan is completed. BMI Follow-up includes: nutrition counseling, exercise counseling and education provided. BMI 31.0-31.9,adult 05/22/2021 08/29/19 22 Assessment & Plan (05/22/2021 10:54 AM WARRANTY COORDINATOR): Obesity is unchanged. Discussed the patient's BMI. [...] counseling, exercise counseling and education provided. Immunizations Immunization Administration Dates Next Due Hep [...] on file Legal Sex Male 9:05 AM WARRANTY COORDINATOR Gender Identity Male 06/09/2023 11:43 AM WARRANTY COORDINATOR Sexual Orientation Straight 06/09/2023 11 :43 AM WARRANTY COORDINATOR Last Filed Vital Signs Vital Sign Reading Time Taken Comments Blood Pressure 94/60 06/23/2024 10:30 AM WARRANTY COORDINATOR Pulse 80 06/23/2024 10:30 AM WARRANTY COORDINATOR Temperature 37 C (98.6 F) 06/23/2024 10:30 AM WARRANTY COORDINATOR Respiratory Rate 16 06/23/2024 10:30 AM WARRANTY COORDINATOR Oxygen Saturation 94% 06/23/2024 10:30 AM WARRANTY COORDINATOR Inhaled Oxygen Concentration - - Weight 68.6 kg (151 lb 3.2 oz) 06/23/2024 10:30 AM WARRANTY COORDINATOR Height 165.1 cm (5' 5 ) 06/23/2024 10:30 AM WARRANTY COORDINATOR Body Mass Index 25.16 06/23/2024 10:30 AM WARRANTY COORDINATOR Plan of Treatment Not on file Medical Devices Implanted Type Area Epic Anesthesia Analyst Device Identifier Shelf Expiration Date Model / Serial / Lot Rt Shoulder Rotator Cuff Repair [place] Suture Right: Shoulder Procedures Procedure Name Priority Date/Time Associated Diagnosis Comments MRI ABDOMEN LIVER W WO CONTRAST Schedule Routine, Read Routine (OP Routine) 08/02/2024 12:30 PM WARRANTY COORDINATOR Alcoholic cirrhosis of liver with ascites (HCC) Cirrhosis of liver with ascites, unspecified hepatic cirrhosis type (HCC) Ascites due to alcoholic cirrhosis (HCC) Hepatic encephalopathy (HCC) TRANSTHORACIC ECHO (TTE) COMPLETE W DOPPLER/CF WO CONTRAST Routine 08/02/2024 11:22 AM WARRANTY COORDINATOR Alcoholic cirrhosis of liver with ascites (HCC) Cirrhosis of liver with ascites, unspecified hepatic cirrhosis type (HCC) Ascites due to alcoholic cirrhosis (HCC) Hepatic encephalopathy (HCC) EGD Routine 07/05/2024 1:14 PM WARRANTY COORDINATOR EGFR Routine 06/23/2024 12:02 PM WARRANTY COORDINATOR Alcoholic cirrhosis of liver with ascites (HCC) DIFFERENTIAL AUTO Routine 06/23/2024 12:02 PM WARRANTY COORDINATOR Alcoholic cirrhosis of liver with ascites (HCC) CBC WITH AUTO DIFFERENTIAL Routine 06/23/2024 12:02 PM WARRANTY COORDINATOR Alcoholic cirrhosis of liver with ascites (HCC) COMPREHENSIVE METABOLIC PANEL Routine 06/23/2024 12:02 PM WARRANTY COORDINATOR Alcoholic cirrhosis of liver with ascites (HCC) PROTIME-INR Routine 06/23/2024 12:02 PM WARRANTY COORDINATOR Alcoholic cirrhosis of liver with ascites (HCC) [id number], TUMOR MARKER Routine 06/23/2024 12:02 PM WARRANTY COORDINATOR Alcoholic cirrhosis of liver with ascites (HCC) PHOSPHATIDYLETHANOL Routine 06/23/2024 12:02 PM WARRANTY COORDINATOR Alcoholic cirrhosis of liver with ascites (HCC) HEMOGLOBIN A1C Routine 06/23/2024 12:02 PM WARRANTY COORDINATOR Alcoholic cirrhosis of liver with ascites (HCC) Type 2 diabetes mellitus without complication, with long-term current use of insulin (HCC) SCAN - RADIOLOGY/IMAGING 06/10/2024 ALBUMIN CREATININE RATIO, URINE Routine 08/15/2022 POCT LIPID PANEL Routine 07/28/2022 9:31 AM WARRANTY COORDINATOR Lipid screening HM COLONOSCOPY Routine 03/12/2022 PSA SCREEN Routine 10/19/2020 10:46 AM CDT Prostate cancer screening from Last 3 Months or Most Recently Relevant to Health Maintenance Results * MRI Abdomen Liver W WO Contrast (08/02/2024 12:30 PM WARRANTY COORDINATOR) Anatomical Region Laterality Modality Body N/A Magnetic Resonan ce 08/02/2024 12:5 8 PM WARRANTY COORDINATOR Impressions 08/02/2024 1:03 PM WARRANTY COORDINATOR 1. Hepatic cirrhosis with portal hypertension including [...] Lulú Omer M.D. Narrative 08/02/2024 1:03 PM WARRANTY COORDINATOR EXAMINATION: MAGNETIC RESONANCE IMAGING OF THE ABDOMEN [...] Lulú Omer M.D. us Elan Hood MD IM MRI PROCEDURES Final Resul t * TRANSTHORACIC ECHO (TTE) COMPLETE W DOPPLER/CF WO CONTRAST (08/02/2024 11:22 AM WARRANTY COORDINATOR) Anatomical Region Laterality Modality Ultrasound 08/02/2024 10:4 4 AM WARRANTY COORDINATOR Narrative 08/02/2024 1:29 PM WARRANTY COORDINATOR [facility] [place] [address] Transthoracic Echocardiographic Report Patient Name: MATT NICOLE E : 1970 (54y 6m) Gender: M Study Date: 08/02/2024 10:44:37 AM Ht(Inch): 65 Wt(Lb): 151.24 BSA: 1.77 Green House Manager: EVON Location: [facility] Order Provider: ELAN HOOD Heart Rate: 64 BMI: 25.16 BP: 122 / 80 Quality: The study images were of technically good quality. Ref Provider: ELAN HOOD PROCEDURES: Echocardiographic Report: ([id number]) Transthoracic complete echo, 2D, spectral and tissue [...] By: Rasheeda Manzanares MD 08/02/2024 1:28:05 PM WARRANTY COORDINATOR Electronically Signed By: Rasheeda Manzanares MD 08/02/2024 1:28:05 PM WARRANTY COORDINATOR Procedure Note Rasheeda Manzanares MD - 08/02/2024 [facility] [place] [address] Transthoracic Echocardiographic Report Patient Name: MATT NICOLE E : 1970 (54y 6m) Gender: M Study Date: 08/02/2024 10:44:37 AM Ht(Inch): 65 Wt(Lb): 151.24 BSA: 1.77 Green House Manager: EVON Location: [facility] Order Provider: ERWINELAN Heart Rate: 64 BMI: 25.16 BP: 122 / 80 Quality: The study images were oftechnically good quality. Ref Provider: MEME HO[place]SON PROCEDURES: Echocardiographic Report: ([id number]) Transthoracic complete echo, 2D,spectral and tissue Doppler, [...] LA Length 2C 5.82 cm MV Decel Xeux655.71 msec [ 104.00 - 258.00 ] LA [...] By: Rasheeda Manzanares MD 08/02/2024 1:28:05 PM WARRANTY COORDINATOR Electronically Signed By: Rasheeda Manzanares MD 08/02/2024 1:28:05 PM WARRANTY COORDINATOR Elan Hood MD CV ECHO PROCEDURES Final Resul t * EGD -[facility] (07/05/2024 1:14 PM WARRANTY COORDINATOR) Anatomical Region Laterality Modality Other Historical Provider GI PROCEDURE ORDERABLES F inal Result * Phosphatidylethanol (06/23/2024 12:02 PM WARRANTY COORDINATOR) PHOSPHATIDYLETHANOL Negative . [place] ref [facility] Comment: ADDITIONAL INFORMATION This report is intended for use in clinical monitoring and management of patients. It is not intended for use in employment-related testing. This test was developed and its performance characteristics determined by [facility] in a manner consistent with CLIA requirements. This test has not been cleared or approved by the U.S. Food and Drug Administration. Test Performed by: [facility] [address] [place] [address] Milk Route Deliverer: Smooth Goff Ph.D.; CLIA# [id number] PEth 16:0/18:1 (POPEth)by LC-MS/MS <10 Cutoff: 10 [...] well established Blood 06/23/2024 12:0 2 PM WARRANTY COORDINATOR 06/23/2024 12:16 PM WARRANTY COORDINATOR us Elan Hood MD LAB BLOOD ORDERABLES Final Res ult [facility] [address] [facility]. [place] [address] [place] ref [facility] * (ABNORMAL) eGFR (06/23/2024 12:02 PM WARRANTY COORDINATOR) eGFR 55(L) >=60 mL/min/1. 73 m2 Comment: [...] reviewed 2021. Blood 06/23/2024 12:0 2 PM WARRANTY COORDINATOR 06/23/2024 12:16 PM WARRANTY COORDINATOR us Elan Hood MD LAB BLOOD ORDERABLES Final Res ult [facility] [address] [facility]. Department [place] [address] * Differential, auto (06/23/2024 12:02 PM WARRANTY COORDINATOR) Pathologist [facility] Neutrophil abs 4.3 1.5 - 6.5 K/cumm Imm gran abs 0.0 0.0 - 0.1 K/cumm [facility] Lymphocyte abs 0.8 0.8 - 3.3 K/cumm [facility] Monocyte abs 0.8 0.2 - 0.8 K/cumm [facility] Eosinophil abs 0.1 0.0 - 0.5 K/cumm [facility] Basophil abs 0.0 0.0 - 0.1 K/cumm [facility] Neutrophil pct 71.3 % [facility] Comment: Interpretive Data Percent cell count reference ranges are not reported, since discordance with absolute values may lead to misinterpretation of CBC data. Current Interpretive Data was last revised on 2017. Imm gran pct 0.5 % [facility] Comment: Interpretive Data Percent cell count reference ranges are not reported, since discordance with absolute values may lead to misinterpretation of CBC data. Current Interpretive Data was last revised on 2017. Lymphocyte pct 13.0 % [facility] Comment: Interpretive Data Percent cell count reference ranges are not reported, since discordance with absolute values may lead to misinterpretation of CBC data. Current Interpretive Data was last revised on 2017. Monocyte pct 12.9 % [facility] Comment: Interpretive Data Percent cell count reference ranges are not reported, since discordance with absolute values may lead to misinterpretation of CBC data. Current Interpretive Data was last revised on 2017. Eosinophil pct 1.8 % [facility] Comment: Interpretive Data Percent cell count reference ranges are not reported, since discordance with absolute values may lead to misinterpretation of CBC data. Current Interpretive Data was last revised on 2017. Basophil pct 0.5 % [facility] Comment: Interpretive Data Percent cell count reference ranges are not reported, since discordance with absolute values may lead to misinterpretation of CBC data. Current Interpretive Data was last revised on 2017. Blood 06/23/2024 12:0 2 PM WARRANTY COORDINATOR 06/23/2024 12:16 PM WARRANTY COORDINATOR us Elan Hood MD LAB BLOOD ORDERABLES Final [facility] [address] [facility] Department [place] [address] * (ABNORMAL) CBC with auto differential (06/23/2024 12:02 PM WARRANTY COORDINATOR) WBC 6.1 3.8 - 9.9 K/cumm Hgb 12.8(L) 13.0 - 17.5 g/dL [facility] Hct 40.8 38.9 - 50.3 % [facility] Plt 99(L) 150 - 400 K/cumm [facility] MPV 10.6 9.1 - 12.3 fL [facility] RBC 4.35 4.30 - 5.80 M/cumm [facility] MCV 93.8 81.3 - 96.4 fL [facility]CH 29.4 27.1 - 33.3 pg [facility] 31.4(L) 32.3 - 35.7 g/dL [facility] RDW CV 15.4(H) 11.1 - 14.9 % [facility] RDW SD 53.1(H) 35.7 - 48.1 fL [facility] NRBC abs 0.00 0.00 - 0.01 K/cumm [facility] Blood 06/23/2024 12:0 2 PM WARRANTY COORDINATOR 06/23/2024 12:16 PM WARRANTY COORDINATOR us Elan Hood MD LAB BLOOD ORDERABLES Final Res ult [facility] [address] [facility]. [place] [address] * [id number], Tumor Marker (06/23/2024 12:02 PM WARRANTY COORDINATOR) alpha Fetoprotein <1.8 <=8.3 ng/mL Comment: Interpretive [...] 2018;[id number] Brenden Ellsworth et al. Clin Chem 2014;5402-5258. Current interpretive data was last revised 2022. Testing performed by: [facility], [facility] [facility], [place]., [address] Blood 06/23/2024 12:0 2 PM WARRANTY COORDINATOR 06/23/2024 2:22 PM WARRANTY COORDINATOR Elan Hood MD LAB BLOOD ORDERABLES Final Res [facility] Performing Organization Address [facility] Phone Number [facility] [address] [facility] [place] [address] * Protime-INR (06/23/2024 12:02 PM WARRANTY COORDINATOR) Pathologist [facility] PT 11.6 9.7 - 13.0 sec INR 1.07 0.90 - 1.20 [facility] Comment: Interpretive data Oral anticoagulant therapeutic ranges: Venous thromboembolism prophylaxis or treatment: 2.0-3.0 CARDIOLOGY Standard range: 2.0-3.0 High-intensity range: 2.5-3.5 Refer to indication-specific guidelines for appropriate target ranges for prosthetic heart valve replacement. Current interpretive data was last revised on 2019. Blood 06/23/2024 12:0 2 PM WARRANTY COORDINATOR 06/23/2024 12:16 PM WARRANTY COORDINATOR Elan Hood MD LAB BLOOD ORDERABLES Final [facility] Performing Organization Address [facility] Phone Number [facility] [address] [facility] [place] [address] * Hemoglobin A1c (06/23/2024 12:02 PM WARRANTY COORDINATOR) Pathologist [facility] Hgb A1C 5.0 4.0 - 5.6 % Estimated Average Glucose 97 mg/dL [facility] Comment: The ADA recommends reporting an estimated Average Glucose (eAG) with all Hemoglobin A1c results using the equation derived from a study of 507 normal and diabetic adults. Minority populations were underrepresented and children were not included. (Diabetes Care 31:2682-9265, 2008). The eAG is not equivalent to a fasting glucose. Blood 06/23/2024 12:0 2 PM WARRANTY COORDINATOR 06/23/2024 12:16 PM WARRANTY COORDINATOR us Elan Hood MD LAB BLOOD ORDERABLES Final Res ult [facility] [address] [facility]. Department [place] [address] * (ABNORMAL) Comprehensive metabolic panel (06/23/2024 12:02 PM WARRANTY COORDINATOR) Sodium 136 135 - 145 mmol/L Potassium, [...] classification and Diagnosis of Diabetes Diabetes Care 202; 46: S19-S40. Current interpretive data was last [...] [facility] Blood 06/23/2024 12:0 2 PM WARRANTY COORDINATOR 06/23/2024 12:16 PM WARRANTY COORDINATOR Elan Hood MD LAB BLOOD ORDERABLES Final Res ult [facility] [address] [address] Department [place] [address] * SCAN - RADIOLOGY/IMAGING (06/10/2024) Anatomical Region Laterality Modality Other Matt Mathews MD Final Res ult * Albumin Creatinine Ratio, Urine (08/15/2022) Urine Matt Mathews MD LAB URINE ORDERABLES Amanda l Result * POCT lipid panel (07/28/2022 9:31 AM WARRANTY COORDINATOR) Cholesterol, POC 231 mg/dL HDL, POC 42 mg/dL Triglycerides, POC 112 mg/dL LDL Cholesterol POC 168 mg/dL Chol/HDL Ratio, POC 4.0 Non-HDL Cholesterol, POC 190 mg/dL Cholesterol Total, POC 231 mg/dL Capillary blood 07/28/2022 9 :31 AM WARRANTY COORDINATOR Result [facility] Anais Chowdary MD POINT OF CARE [...] LAB BLOOD ORDERABLES Final Result [facility] [address] [id number] from Last 3 Months or Most Recently Relevant to Health Maintenance Insurance [facility] MEDICARE [facility] MEDICARE Care Teams Microfilm Technician Relationship Specialty Start Date End Date Matt Mathews MD [facility] [place] [address] [place] [address] PCP - General Family Medicine 03/31/22 Dwight Nascimento MD Consulting Physician Internal Medicine 09/20/21
--- OUTSIDE RECORDS SUMMARY | 2024-08-19 11:09 | XMS_ITS | Clinical Summary ---
Author Organization [facility] Address [address] [place] [address] Care Team Providers Care Wallpaper Scraper Name Role Phone Matt Mathews MD Primary Care Provider [phone] Allergies Active Allergy Reactions Criticality Noted Date Comments Ceftriaxone Itching Low 04/15/2023 Ciprofloxacin Itching Low 04/15/2023 Medications OneTouch Ultra Test Strip CHECK 2-3 TIMES DAILY 2 Active OneTouch Ultra2 Meter CHECK 2-3 TIMES PER DAY 2 Active DULoxetine (CYMBALTA) 30 mg Capsule, Delayed Release(E.C.) 2 Active OneTouch Delica Plus Lancet 30 gauge CHECK 2-3 TIMES DAILY 2 Active metFORMIN (GLUCOPHAGE) 500 mg tablet 2 Active carvediloL (COREG) 12.5 mg tablet Take 12.5 mg by mouth every 12 hours. 2 Active ID NOW COVID-19 Test Kit Kit TEST DIRECTED TODAY 2 Active Jardiance 10 mg tablet Take 10 mg by mouth daily. 2 Active Syringe with Needle, Safety (BD Integra Syringe) 3 mL 25 gauge x 1 SyringeIndicati ons:Other secondary thrombocytopeni a,Hepatic cirrhosis, unspecified hepatic cirrhosis type, unspecified whether ascites present (CMS/HCC),Low vitamin B12 level Inject 1 ml vitamin B12 every 4 weeks. 1 Each 6 2 Active cyanocobalamin (VITAMIN B-12) 1,000 mcg/mL SolutionIndicat ions:Other secondary thrombocytopeni a,Hepatic cirrhosis, unspecified hepatic cirrhosis type, unspecified whether ascites present (CMS/HCC),Low vitamin B12 level Inject 1 mL (1,000 mcg) by intramuscular injection every 30 days. 1 mL 6 2 Active ascorbic acid (VITAMIN C) 500 mg Tablet, Chewable Take 500 mg by mouth daily. Active gabapentin (NEURONTIN) 300 mg capsule Take 300 mg by mouth daily at bedtime. 3 Active insulin lispro protamine-lispr o (HumaLOG MIX 75-25) 100 unit/mL (75-25) pen syringe Inject 5 Units by subcutaneous injection 2 times daily with meals. 3 Active midodrine (PROAMATINE) 2.5 mg Tablet Take 2.5 mg by mouth 3 times daily. 3 Active ondansetron (ZOFRAN ODT) 4 mg Tablet, Rapid Dissolve Place 4 mg under tongue every 4 hours as needed for Nausea. 3 Active pantoprazole (PROTONIX) 40 mg Tablet, Delayed Release (E.C.) Take 40 mg by mouth every 12 hours. 1 Active potassium chloride (KLOR-CON) 20 mEq Extended Release tablet Take 20 mEq by mouth daily. 3 Active spironolactone (ALDACTONE) 25 mg tablet Take 150 mg by mouth 2 times daily. 3 Active apixaban (ELIQUIS) 5 mg tablet Take 1 Tablet (5 mg) by mouth 2 times daily. 60 Tablet 04/22/2023 11:54 AM [employer] 3 Active lactulose (ENULOSE) 10 gram/15 mL 10 gram/15 mL solution Take 30 mL by mouth daily. 946 mL 3 Active HYDROcodone-yoli taminophen (NORCO) 7.5-325 mg TabletIndicatio ns:Hepatic cirrhosis, unspecified hepatic cirrhosis type, unspecified whether ascites present (CMS/HCC) Take 1 Tablet by mouth every 8 hours as needed for moderate to severe pain. Max Daily Amount: 3 Tablets 20 Tablet 3 Active Active Problems Problem Noted Date Diagnosed Date Palliative care encounter 04/16/2023 ACP (advance care planning) 04/16/2023 Type 2 diabetes mellitus with hyperglycemia 06/2022 Bilateral pulmonary embolism 04/15/2023 Portal hypertension 04/15/2023 Ascites due to alcoholic cirrhosis 04/15/2023 Prostate cancer 04/15/2023 Gastroesophageal reflux disease 04/15/2023 Diabetes mellitus 04/15/2023 Microcytic anemia 10/25/2021 Leukopenia 10/25/2021 Other secondary thrombocytopenia 10/25/2021 Liver cirrhosis 10/25/2021 Encounters Date Type Department Care Team Description 07/12/2024 External Device Data STL ABSTRACTION Provider, Abstract from Last 3 Months Immunizations Immunization Administration Dates Next Due Hepatitis A Vaccine 11/25/2001 Family History Medical History Relation Name Comments Ovarian Cancer Brother Breast Cancer Mother Relation Name Status Comments Brother Alive Father Alive Mother Alive Son Alive Social History Tobacco Use Types Packs/Day Years Used Date Smoking Tobacco: Former Cigarettes Q uit: 04/27/2022 Smokeless Tobacco: Never Tobacco Cessation:Counseling Given: Not Answered Comments:every once in a while Alcohol Use Standard Drinks/Week Comments Never 0 (1 standard drink = 0.6 oz pur e alcohol) occasional Feeling Safe Answer Date Recorded Are you in a relationship wi th someone who hurts you emotionally and/or physically? No 04/15/2023 Food Insecurity Answer Date Recorded Social/Environmental Concerns No concerns Transportation Needs Answer Date Record ed Social/Environmental Concerns No concerns Housing Stability Answer Date Recorded Social/Environmental Concerns No concerns Utility Needs Answer Date Recorded Social/Environmental Concerns No concerns Sex and Gender Information Value Date Recorded Sex Assigned at Not on file Legal Sex Male 3:08 PM [employer] Gender Identity Not on file Sexual Orientation Not on file Last Filed Vital Signs Vital Sign Reading Time Taken Comments Blood Pressure 140/80 04/22/2023 8:53 AM [employer] Pulse 81 04/22/2023 8:53 AM [employer] Temperature 36.6 C (97.9 F) 04/22/2023 7:35 AM [employer] Respiratory Rate 18 04/22/2023 7:35 AM [employer] Oxygen Saturation 98% 04/22/2023 7:35 AM [employer] Inhaled Oxygen Concentration - - Weight 75.5 kg (166 lb 6.4 oz) 04/16/2023 1:01 A M CDT Height 165.1 cm (5' 5 ) 04/16/2023 1:01 AM CDT Body Mass Index 27.69 04/16/2023 1:01 AM CDT Plan of Treatment Health Maintenance Due Date Last Done Comments DIABETES ANNUAL FOOT EXAM 1989 DIABETES ANNUAL RETINAL EXAM 1989 DIABETES MICROALBUMIN ANNUAL SCREEN 1989 LDL CHOLESTEROL ANNUAL 1989 HEPATITIS B VACCINES (1 of 3 - 19+ 3-dose series) 12/14 COLORECTAL SCREENING 01/09/2016 Colorectal Cancer Screening 01/09/2016 FIT-DNA Q 3 years 01/09/2016 FIT/FOBT Q 1 year 01/09/2016 Flex Sig/CT Colonography Q 5 years 01/09/2016 ZOSTER VACCINE (1 of 2) 2021 DIABETES HBA1C Q 6 MONTHS 10/14/2023 04/15/2023 INFLUENZA VACCINE (#1) 2024 06/29/2012 DTAP/TDAP/TD VACCINES (2 - Td or Tdap) 01/22/2027 Procedures Procedure Name Priority Date/Time Associated Diagnosis Comments HEMOGLOBIN A1C Routine 04/15/2023 5:36 AM CDT from Last 3 Months or Most Recently Relevant to Health Maintenance Results * HEMOGLOBIN A1C (04/15/2023 5:36 AM CDT) HEMOGLOBIN A1C 5.2 <5.7 % 04/15/2023 8:53 AM CDT [facility] EST. AVG GLUCOSE, A1C 103 mg/dL 04/15/2023 8:53 AM CDT [facility] [employer] [facility] Blood Venipuncture / Unknown 04/15/2023 5:36 AM CDT 04/15/2023 5:45 AM CDT Narrative [facility] - 04/15/2023 8:53 AM CDT HGB A1C INTERPRETATION NORMAL: <5.7% PRE-DIABETES: 5.7 - 6.4% DIABETES: 6.5% OR GREATER us Mary Ann BORRERO CHEMISTRY ORDERABLES [facility]# [id number] [address] [place] [address] from Last 3 Months or Most Recently Relevant to Health Maintenance Insurance [facility] MEDICAID [facility] MEDICAID RX [employer] Commercial RX [employer] Commercial Advance Directives For more information, please contact: [phone] * NO CPR (In Event of Cardiopulmonary Arrest) (Latest Code Status on File) Date Activated Date Inactivated Comments 04/15/2023 6:37 AM 04/22/2023 2:19 PM Question Answer Comments Mechanical Ventilation (for respiratory distress) - Invasive (i.e. intubation): Yes Mechanical Ventilation (for respiratory distress) - Non-Invasive (i.e. BiPAP, CPAP): Yes * Default Full Code - Needs Discussion Date Activated Date Inactivated Comments 04/15/2023 5:22 AM 04/15/2023 6:37 AM Care Teams Wallpaper Scraper Relationship Specialty Start Date End Date Matt Mathews MD [address] [place] [address] PCP - General Family Practice 01/02/23
--- OUTSIDE RECORDS SUMMARY | 2024-08-19 11:10 | XMS_ITS | Encounter Summary ---
Author Organization [facility] Address [address] [place] [address] Phone Care Team Providers Care Screen Tacker Name Role Phone Dwight Nascimento MD Unavailable Matt Mathews MD Primary Care Provider [phone] Encounter Details Date Type Department Care Team [...] on file Legal Sex Male 9:05 AM [employer] COMMISSIONING TECHNICIAN Gender Identity Male 06/09/2023 11:43 AM WIND COMMISSIONING TECHNICIAN Sexual Orientation Straight 06/09/2023 11 :43 AM WIND COMMISSIONING TECHNICIAN documented as of this encounter Plan of Treatment Not on file documented as of this encounter Procedures Procedure Name Priority Date/Time Associated Diagnosis Comments SCAN - LABS 04/11/2024 documented in this encounter Results * SCAN - LABS (04/11/2024) us Provider Scanning Final Result documented in this encounter Visit Diagnoses Not on filedocumented in this encounter Care Teams Screen Tacker Relationship Specialty Start Date End Date Matt Mathews MD [address] [place] [address] PCP - General Family Medicine 03/31/22 Dwight Nascimento MD Consulting Physician Internal Medicine 09/20/21 documented as of this encounter
--- OUTSIDE RECORDS SUMMARY | 2024-08-19 11:10 | XMS_ITS | Patient Health Summary ---
Author Organization [facility] Address [address] [facility] [place] [address] Care Team Providers Care Natural Resource Officer Name Role Phone Fidel Camejo MD Primary Care Provider Note from [facility],non-owned Affiliates and Associated Physician Practices is amultiple site organization consisting of ambulatory clinics and hospital sitesin [place], [place], [place] and [place]. This disclosure is being madepursuant to the Care Everywhere program and may not contain all information available regarding this patient. Last updated 18.[facility] Allergies No known active allergies Medications * [...] 36.6 C (97.9 F) 07/12/2020 10:23 AM HOME ORGANIZER Respiratory Rate 18 11/01/2020 11:37 AM CDT Oxygen Saturation 100% 11/01/2020 11:37 AM CDT Inhaled Oxygen Concentration - - Weight 81.2 kg (179 lb) 11/01/2020 11:37 AM CDT Height 165.1 cm (5' 5 ) 07/12/2020 10:23 AM HOME ORGANIZER Body Mass Index 29.79 07/12/2020 10:23 AM HOME ORGANIZER Procedures * PT-INR SLH(Performed 07/12/2020) Performed for [...] Abnormal finding on imaging of liver * [id number] BLOOD PHENOTYPING PANEL(Performed 04/04/2020) Performed for RUQ [...] Results * PT-INR [facility] (07/12/2020 12:54 PM HOME ORGANIZER) Only the most recent of3 resultswithin the time period is included. PT 13.5 12.1 - 14.8 Seconds 07/12/2020 1:34 PM HOME ORGANIZER [facility] INR 1.1 See Comment 07/12/2020 1:34 PM HOME ORGANIZER [facility] Comment:The suggested therap eutic range for standard coumadin (warfarin) therapy is an INR of 2.0-3.0. For high-risk patients (Mechanical Mitral Valve Prosthesis, etc.), the suggested prophylactic therapeutic range is an INR of 2.5-3.5. Blood BLOOD SPECIMEN / Unknown Lab Venipuncture / Unknown 07/12/2020 12:54 PM HOME ORGANIZER 07/12/2020 1:24 PM HOME ORGANIZER Billie Medrano MD LAB - COAGULATION OR DERABLES [facility] [address] [place] [address], [facility] [phone] * CELIAC DISEASE PROFILE W RFLX (07/12/2020 12:54 PM HOME ORGANIZER) Endomysial Antibody IgA Negative Negative 07/13/2020 6:07 PM HOME ORGANIZER [facility] ([facility]) TTG Antibody IgA <2 0 - 3 U/mL 07/13/19 21 6:07 PM [facility] ([facility]) Comment: Negative 0 - 3 Weak Positive 4 - 10 Positive >10 Tissue Transglutaminase (tTG) has been identified as the endomysial antigen. Studies have demonstr- ated that endomysial IgA antibodies have over 99% specificity for gluten sensitive enteropathy. IgA Quantitative 371 90 - 386 mg/dL 07/13/2020 6:07 PM [facility] ([facility]) Blood BLOOD SPECIMEN / Unknown Lab Venipuncture / Unknown 07/12/2020 12:54 PM HOME ORGANIZER 07/12/2020 1:39 PM HOME ORGANIZER Narrative [facility] ([facility]) - 07/13/2020 6:07 PM HOME ORGANIZER Performed at: [facility] [id number] Double Cut Sawyer: Lucho Tyler PhD, Phone: [phone] Billie Medrano MD LAB - CHEMISTRY CHERIE CABRALES [facility] ([facility]) [address] [place] [address], [facility] * (ABNORMAL) CBC WITH DIFFERENTIAL (07/12/2020 12:54 PM HOME ORGANIZER) Only the most recent of5 resultswithin the time period is included. WBC 4.1 3.5 - 10.5 10 3/uL 07/12/2020 1:35 PM [facility] RBC 5.06 4.30 - 5.70 10 6/uL 07/12/2020 1:35 PM [facility] - 400 10 3/uL 07/12/2020 1:35 PM [facility] RDW-SD 46.6 36.0 - 50.0 fL 07/12/2020 1:35 PM [facility] RDW-CV 13.2 11.2 - 14.8 % 07/12/2020 1:35 PM [facility] MPV 10.3 9.3 - 12.8 fL 07/12/2020 1:35 PM [facility] nRBC Absolute 0.00 0 10 3/uL 07/12/2020 1:35 PM [facility] - 7.0 10 3/uL 07/12/2020 1:35 PM [facility] Lymphocyte Absolute 1.0 0.8 - 2.9 10 3/uL 07/12/2020 1:35 PM [facility] Monocytes Absolute 0.39 0.14 - 0.66 10 3/uL 07/12/2020 1:35 PM [facility] Eosinophils Absolute 0.04 0.00 - 0.45 10 3/uL 07/12/2020 1:35 PM [facility] Basophils Absolute 0.02 0.00 - 0.06 10 3/uL 07/12/2020 1:35 PM [facility] Immature Granulocytes % 0.5 0.0 - 1.0 % 07/12/2020 1:35 PM [facility] Blood BLOOD SPECIMEN / Unknown Lab Venipuncture / Unknown 07/12/2020 12:54 PM HOME ORGANIZER 07/12/2020 1:20 PM HOME ORGANIZER Billie Medrano MD LAB - HEMATOLOGY ORD ERABLES Performing Organization Address City/State/[facility] Co de Phone Number [facility] [address] [place] [address], [facility] [phone] * (ABNORMAL) COMPREHENSIVE METABOLIC PANEL (07/12/2020 12:54 PM HOME ORGANIZER) Only the most recent of3 resultswithin the [...] 270 - 300 mOsm/kg 07/12/2020 2:12 PM [facility] Albumin/Globulin Ratio 1.2 1.1 - 2.3 07/12/2020 2:12 PM [facility] eGFR >60 >60 mL/min/1.7 3 m2 07/12/2020 2:12 PM [facility] Blood BLOOD SPECIMEN / Unknown Lab Venipuncture / Unknown 07/12/2020 12:54 PM HOME ORGANIZER 07/12/2020 1:20 PM [facility] Billie Medrano MD LAB - CHEMISTRY ORDRay CABRALES [facility] [address] [place] [address], [place] [phone] * TSH (07/12/2020 12:54 PM HOME ORGANIZER) TSH 1.171 0.350 - 4.940 uIU/mL 07/12/2020 2:08 PM HOME ORGANIZER [facility] Blood BLOOD SPECIMEN / Unknown Lab Venipuncture / Unknown 07/12/2020 12:54 PM HOME ORGANIZER 07/12/2020 1:20 PM HOME ORGANIZER Billie Medrano MD LAB - CHEMISTRY CHERIE CABRALES Performing Organization Address City/[facility]/ZIP Co de Phone Number [address] [address], [place] [phone] * MRI ABDOMEN W MRCP WWO CONT W3D (06/02/2020 11:31 AM HOME ORGANIZER) Anatomical Region Laterality Modality Abdomen Magnetic Resonan ce 06/04/2020 7:14 AM HOME ORGANIZER Impressions 06/04/2020 10:34 AM HOME ORGANIZER IMPRESSION: 1.Cirrhosis and mild hepatic steatosis. 2. 1.8 cm arterially enhancing observation without washout in segment 5 (LR-3). Report drafted by Toby Alexander M.D. (resident) I, Dr. AV HOUSE M.D. have personally reviewed and interpreted this examination/study. This report was electronically signed by AV HOUSE M.D. on 06/04/2020 10:34 AM . Narrative 06/04/2020 10:34 AM HOME ORGANIZER EXAMINATION: 1. Magnetic resonance imaging (MRI) of [...] CREATININE - POCT INTERFACED (06/02/2020 10:43 AM HOME ORGANIZER) [facility] Creatinine POCT 0.85 0.30 - 1.30 mg/dL 06/02/2020 2:38 PM HOME ORGANIZER [facility] eGFR >60 >60 mL/min/1.7 3 m2 06/02/2020 2:38 PM HOME ORGANIZER [facility] Blood BLOOD SPECIMEN / Unknown 06/02/2020 10:43 AM HOME ORGANIZER 06/02/2020 2:38 PM HOME ORGANIZER Billie Medrano MD LAB - POINT OF CARE ORDERABLES Performing Organization Address City/State/[facility] Co de Phone Number [facility] [address] [address], [facility] [phone] * PHOSPHATIDYLETHANOL (PETH) (04/04/2020 1:28 PM CDT) [facility] PEth 16:0/18.1 (POPEth) 224 ng/mL 04/07/2020 10:54 AM CDT [facility] [employer] ([facility]) Comment: INTERPRETIVE INFORMATION:Phosphatidylethanol (PEth), Whole Blood Phosphatidylethanol [...] Research). Test developed and characteristics determined by [employer]. See Compliance Statement B: [email or web address]CS PEth 16:0/18.2 (PLPEth) 203 ng/mL 04/07/2020 10:54 AM CDT [facility] [employer] ([facility]) Comment: Performed By: [employer] [address] [place] [address] Advanced Manufacturing Associate: Jocelynn Salomon MD Blood BLOOD SPECIMEN / Unknown Lab Venipuncture / Unknown 04/04/2020 1:28 PM CDT 04/04/2020 1:59 PM CDT Billie Medrano MD LAB - CHEMISTRY CHERIE CABRALES [employer] ([facility]) [address] [place] [address], [facility] * SMOOTH MUSCLE ANTIBODY W REFLEX TITER (04/04/2020 1:28 PM CDT) F-Actin Antibody IgG 9 0 - 19 Units 04/06/2020 7:27 PM CDT [facility] [employer] ([facility]) Comment: If F-Actin (Smooth Muscle) Antibody, IgG [...] suspicion for AIH is strong. Performed By: [employer] [address] [place] [address] Advanced Manufacturing Associate: Jocelynn Salomon MD Blood BLOOD SPECIMEN / Unknown Lab Venipuncture / Unknown 04/04/2020 1:28 PM CDT 04/04/2020 2:36 PM CDT Billie Medrano MD LAB - SEROLOGY ORDER ELIOT [facility]) [address] * MITOCHONDRIAL ANTIBODY SCREEN (04/04/2020 1:28 PM CDT) Mitochondrial M2 Antibody 6.7 0.0 - 24.9 Units 04/06/2020 7:28 PM CDT [facility] [employer] ([facility]) Comment: REFERENCE INTERVAL: Mitochondrial (M2) Antibody, IgG [...] does not rule out PBC. Performed By: [employer] [address] [place] [address] Advanced Manufacturing Associate: Jocelynn Salomon MD Blood BLOOD SPECIMEN / Unknown Lab Venipuncture / Unknown 04/04/2020 1:28 PM CDT 04/04/2020 2:37 PM CDT Billie Medrano MD LAB - CHEMISTRY CHERIE CABRALES Performing Organization Address [facility] [place]/[facility] de Phone Number [facility]) [address] [place] [address] * BUDZN-9-HQPTGRKERGI BLOOD PHENOTYPING PANEL (04/04/2020 1:28 PM CDT) Tlnjc-9-Bfuzqgkdcg n Phenotype M1M1 04/07/2020 1:43 PM CDT [facility] [employer] ([facility]) Comment: The patient appears to have a normal phenotype. All M alleles (including subtypes M1, M2, and M3) produce normal serum concentrations of xrzwr-6-hyltzwfs inhibitor and are not associated with clinical disease. Caution in interpretation is advised if the patient has been transfused within the previous 21 days. Performed By: [employer] [address] [place] [address] Advanced Manufacturing Associate: Jocelynn Salomon MD Ccicp-8-Drjrcfmven n 175 90 - 200 mg/dL 04/07/2020 1:43 PM CDT [facility] [employer] ([facility]) Comment:To convert to umol/L , multiply mg/dL by 0.185 Blood BLOOD SPECIMEN / Unknown Lab Venipuncture / Unknown 04/04/2020 1:28 PM CDT 04/04/2020 2:36 PM CDT Billie Medrano MD LAB - CHEMISTRY CHERIE CABRALES Performing Organization Address [facility] [place]/[facility] Co de Phone Number [facility] [employer] ([facility]) [address] * HEMOCHROMATOSIS MUTATION PANEL (04/04/2020 1:28 PM CDT) HFE C282Y Mutation Negative 2019 3:56 PM CDT [facility] ([facility]) HFE Specimen Source Whole Blood 04/09/2020 3:56 PM CDT [facility] ([facility]) HFE H63D Mutation Negative 020 3:56 PM CDT [facility] ([facility]) HFE S65C Mutation Negative 3:56 PM CDT [facility] ([facility]) Interpretation HFE Mutation See Note 04/09/2020 3:56 PM CDT [facility] ([facility]) Comment: Indication for testing: Carrier screening or [...] variations. Test developed and characteristics determined by [employer]. See Compliance Statement C: [employer]/ Performed by [employer], [address] [place], [place] [id number] [email or web address], Jocelynn Salomon MD, Lab. Director Blood BLOOD SPECIMEN / Unknown Lab Venipuncture / Unknown 04/04/2020 1:28 PM CDT 04/04/2020 1:59 PM CDT Billie Medrano MD LAB - CHEMISTRY CHERIE CABRALES [facility]) [address] [place] [address] * MEL BLOOD SCREEN W/REFLEX TITER (04/04/2020 1:28 PM CDT) MEL IgG None Detected None Detected 04/06/2020 5:16 PM CDT [facility] [employer] ([facility]) Comment: If suspicion of connective tissue disease is strong and MEL EIA is negative, consider testing for MEL by IFA ([id number]). INTERPRETIVE INFORMATION: Anti-Nuclear Antibodies (MEL), IgG by GAYLE Antinuclear Antibodies (MEL), IgG by GAYLE: MEL specimens are screened using enzyme-linked immunosorbent assay (GAYLE) methodology. All GAYLE results reported as Detected are further tested by indirect fluorescent assay (IFA) using HEp-2 substrate with an IgG-specific conjugate. The MEL GAYLE screen is designed to detect antibodies against dsDNA, histones, SS-A (Ro), SS-B (La), Cunha, Cunha/[employer], Scl-70, Shellie-1, centromeric proteins, other antigens extracted from the HEp-2 cell nucleus. MEL GAYLE assays have been reported to have lower sensitivities than MEL IFA for systemic autoimmune rheumatic diseases (SARD). Negative results do not necessarily rule out SARD. Performed By: [employer] [address] [place] [address] Advanced Manufacturing Associate: Jocelynn Salomon MD Blood BLOOD SPECIMEN / Unknown Lab Venipuncture / Unknown 04/04/2020 1:28 PM CDT 04/04/2020 2:36 PM CDT Billie Medrano MD LAB - CHEMISTRY CHERIE CABRALES [facility] ([facility]) [address] [place] [address], [facility] * TRANSFERRIN (04/04/2020 1:28 PM CDT) Transferrin 176 174 - 382 mg/dL 04/04/2020 3:05 PM CDT [facility] Transferrin Saturation % 40 16 - 50 % 04/04/2020 3:05 PM CDT [facility] Blood BLOOD SPECIMEN / Unknown Lab Venipuncture / Unknown 04/04/2020 1:28 PM CDT 04/04/2020 2:36 PM CDT Billie Medrano MD LAB - CHEMISTRY CHERIE CABRALES Performing Organization Address City/[facility]/ZIP Co de Phone Number [address] [address], [facility] [phone] * CERULOPLASMIN (04/04/2020 1:28 PM CDT) Ceruloplasmin 32 20 - 60 mg/dL 04/04/2020 3:06 PM CDT [facility] Blood BLOOD SPECIMEN / Unknown Lab Venipuncture / Unknown 04/04/2020 1:28 PM CDT 04/04/2020 2:36 PM CDT Billie Medrano MD LAB - CHEMISTRY CHERIE CABRALES Performing Organization Address City/[facility]/ZIP Co de Phone Number [address] [address], [place] [phone] * ALPHA FETOPROTEIN BLOOD TUMOR MARKER (04/04/2020 1:28 PM CDT) Alpha-Fetoprote in Tumor Marker 4.6 <=8.3 ng/mL 04/04/2020 2:42 PM CDT [facility] Comment: AFP values will vary depending on testing procedure used. Results are not comparable across different methods. AFP values obtained by [facility] using an Castaneda Alinity Immunoassay. Blood BLOOD SPECIMEN / Unknown Lab Venipuncture / Unknown 04/04/2020 1:28 PM CDT 04/04/2020 1:59 PM CDT Billie Medrano MD LAB - CHEMISTRY CHERIE CABRALES [facility] [address] [place] [address], [facility] [phone] * (ABNORMAL) CBC W/O DIFFERENTIAL (04/04/2020 1:28 PM CDT) WBC 5.5 3.5 - 10.5 10 3/uL 04/04/2020 2:19 PM CDT [facility] RBC 3.98(L) 4.30 - 5.70 10 6/uL 04/04/2020 2:19 PM T [facility] Hemoglobin 13.4(L) 13.5 - 17.5 g/dL 04/04/2020 2:19 PM T [facility] Hematocrit 40.2 39.0 - 50.0 % 04/04/2020 2:19 PM T [facility] MCV 101.0(H) 81.0 - 97.0 fL 04/04/2020 2:19 PM CDT [facility] MCH 33.7 28.0 - 34.0 pg 04/04/2020 2:19 PM T [facility] MCHC 33.3 32.0 - 36.0 g/dL 04/04/2020 2:19 PM T [facility] Platelet Count 124(L) 150 - 400 10 3/uL 04/04/2020 2:19 PM T [facility] RDW-SD 50.4(H) 36.0 - 50.0 fL 04/04/2020 2:19 PM T [facility] RDW-CV 13.4 11.2 - 14.8 % 04/04/2020 2:19 PM T [facility] MPV 10.5 9.3 - 12.8 fL 04/04/2020 2:19 PM T [facility] nRBC Absolute 0.00 0 10 3/uL 04/04/2020 2:19 PM T [facility] nRBC Auto 0.0 0 /100 WBC 04/04/2020 2:19 PM CDT [facility] Blood BLOOD SPECIMEN / Unknown Lab Venipuncture / Unknown 04/04/2020 1:28 PM CDT 04/04/2020 1:59 PM CDT Billie Medrano MD LAB - HEMATOLOGY ORD ERABLES [address] [address], [facility] [phone] * IRON BLOOD (04/04/2020 1:28 PM CDT) [facility] Iron 89 50 - 175 mcg/dL 04/04/2020 3:05 PM CDT [facility] Blood BLOOD SPECIMEN / Unknown Lab Venipuncture / Unknown 04/04/2020 1:28 PM CDT 04/04/2020 2:36 PM CDT Billie Medrano MD LAB - CHEMISTRY ORDE RABLES Performing Organization Address City/[facility]/ZIP Co de Phone Number [address] [address], [facility] [phone] * HEPATITIS B SURFACE ANTIBODY (04/04/2020 1:28 PM CDT) [facility] Hepatitis B Virus Surface Antibody Non-react cathi Non-react cathi 04/04/2020 3:23 PM CDT [facility] Comment: < 8 mIU/mL Hepatitis B surface Antibody (HBsAb). Nonreactive for HBsAb - individual is considered not immune to Hepatitis B Virus infection. Hepatitis B Surface Antibody Quantitative 4.7 <8.0 mIU/mL 04/04/2020 3:23 PM CDT [facility] Comment: Hepatitis B Surface Antibody Numeric Result Interpretation: Nonreactive: <8.0 mIU/mL Indeterminate: 8.0 - 12.0 mIU/mL Reactive: >12.0 mIU/mL Blood BLOOD SPECIMEN / Unknown Lab Venipuncture / Unknown 04/04/2020 1:28 PM CDT 04/04/2020 2:36 PM CDT Billie Medrano MD LAB - CHEMISTRY CHERIE CABRALES Performing Organization Address City/[facility]/ZIP Co de Phone Number [facility] [address] [place] [address], [place] [phone] * HEPATITIS B CORE ANTIBODY (04/04/2020 1:28 PM CDT) HBc Antibody Total Non-reacti ve Non-reacti ve 04/04/2020 3:27 PM CDT [facility] Blood BLOOD SPECIMEN / Unknown Lab Venipuncture / Unknown 04/04/2020 1:28 PM CDT 04/04/2020 2:36 PM CDT Billie Medrano MD LAB - CHEMISTRY CHERIE CABRALES Performing Organization Address City/[facility]/ZIP Co de Phone Number [facility] [address] [place] [address], [place] [phone] * HEPATITIS B SURFACE ANTIGEN W RFLX CONFIRMATION (04/04/2020 1:28 PM CDT) Hepatitis B Virus Surface Antigen Non-reacti ve Non-reacti ve 04/04/2020 3:27 PM CDT [facility] Blood BLOOD SPECIMEN / Unknown Lab Venipuncture / Unknown 04/04/2020 1:28 PM CDT 04/04/2020 2:36 PM CDT Billie Medrano MD LAB - CHEMISTRY CHERIE CABRALES Performing Organization Address City/[facility]/ZIP Co de Phone Number [address] [address], [place] [phone] * HEPATITIS C ANTIBODY (04/04/2020 1:28 PM [...] Medrano MD LAB - CHEMISTRY CHERIE CABRALES [facility] [address] [place] [address], [place] [phone] * (ABNORMAL) HEPATITIS A ANTIBODY (04/04/2020 1:28 PM CDT) Hepatitis A Virus Antibody Total Positive( A) Negative 04/06/2020 8:44 AM CDT [facility] [employer] ([facility]) Comment: The positive anti-HAV is consistent with recent or remote Hepatitis A infection or antibody response to HAV vaccination. False positive anti-HAV can occur. Performed by [employer], [address] [place] [address] [email or web address], Jocelynn Salomon MD, Lab. Director Blood BLOOD SPECIMEN / Unknown Lab Venipuncture / Unknown 04/04/2020 1:28 PM CDT 04/04/2020 2:36 PM CDT Billie Medrano MD LAB - CHEMISTRY CHERIE CABRALES Performing Organization Address City/[facility]/ZIP Co de Phone Number [facility] [employer] ([facility]) [address] [place] [address], [facility] * (ABNORMAL) FERRITIN (04/04/2020 1:28 PM CDT) Pathologist [facility] Ferritin 2,699(H) 22 - 275 ng/mL 04/04/2020 4:03 PM CDT [facility] Comment:Result obtained by [employer]lad [employer]. Blood BLOOD SPECIMEN / Unknown Lab Venipuncture / Unknown 04/04/2020 1:28 PM CDT 04/04/2020 2:36 PM CDT Billie Medrano MD LAB - CHEMISTRY CHERIE CABRALES [facility] [address] [place] [address], [place] [phone] * CT ABDOMEN PELVIS WO CONTRAST (11/17/2018 [...] 11/17/2018 at 4:07 PM Margarita Martinez Moses PRODUCTION EXPEDITER-BUSINESS CONTINUITY ANALYST CT ORDERABLES * (ABNORMAL) GLUCOSE - POINT OF CARE (11/17/2018 12:18 PM CDT) Only the most recent of2 resultswithin the time period is included. Glucose WB/POC 121(H) 70 - 106 mg/dL 11/17/2018 4:17 PM CDT [facility] Specimen Type Arterial/C apillary 11/17/2018 4:17 PM CDT [facility] Blood BLOOD SPECIMEN / Unknown 11/17/2018 12:18 PM CDT 11/17/2018 4:17 PM CDT Vic Valenzuela MD LAB - POINT OF CARE ORDERABLES Performing Organization Address City/State/[facility] Co de Phone Number [facility] [address] [place] [address] * US SCROTUM W DOPPLER (11/17/2018 10:52 [...] Note Tee Medina II, MD - 11/16/2018 [facility] [address] [place] [address] Lower Extremity Venous Ultrasound Report Pat.Name: MATT NICOLE.ID: [id number] .Date: 11/16/2018 Exam Time: 10:38:00 AM Study Type:LE Venous Age: 7 1970,48Y Sex: MALE Sonogrphr: [place] Varner RVT Pat. Stat.:Inpatient Room: 8 CPT - 4: 57148 Reason for Study: Pain -Leg, left Procedures: Lower Extremity Venous - Bilateral Visit ID: [id number] ++++++++++++++++++++++++++++++++++++ SUMMARY: ++++++++++++++++++++++++++++++++++++ No evidence of deep [...] (OLIVIA Medina II MD, RVT Margarita Lopes PRODUCTION EXPEDITER-BUSINESS CONTINUITY ANALYST VASCULAR LAB OR DERABLES * (ABNORMAL) HEMOGLOBIN A1C (11/16/2018 5:16 AM CDT) Only the most recent of2 resultswithin the time period is included. Hemoglobin A1c 6.6(H) 4.0 - 6.1 % 11/16/2018 6:43 AM CDT [facility] Estimated Average Glucose 143 mg/dL 11/16/2018 6:43 AM [facility] Blood BLOOD SPECIMEN / Unknown Lab Venipuncture / Unknown 11/16/2018 5:16 AM CDT 11/16/2018 5:23 AM CDT [facility] - 11/16/2018 6:43 AM CDT Attention clinician: Reference Range has changed. Iveth Beck MD LAB - CHEMISTRY ORD ERABLES [facility] [address] [facility] [email or web address] [address] * (ABNORMAL) BASIC METABOLIC PANEL (CALCIUM TOTAL) (11/16/2018 5:16 AM CDT) Only the most recent of3 resultswithin the time period is included. Glucose 141(H) 74 - 106 mg/dL 11/16/2018 5:47 AM [facility] Sodium 137 136 - 145 mmol/L 11/16/2018 5:47 AM [facility] Potassium 4.4 3.5 - 5.1 mmol/L 11/16/2018 5:47 AM [facility] Chloride 103 98 - 107 mmol/L 11/16/2018 5:47 AM [facility] CO2 26 23 - 31 mmol/L 11/16/2018 5:47 AM [facility] Calcium 8.9 8.4 - 10.2 mg/dL 11/16/2018 5:47 AM [facility] Anion Gap 8 8 - 16 mmol/L 11/16/2018 5:47 AM [facility] BUN 19 8.9 - 20.6 mg/dL 11/16/2018 5:47 AM [facility] Creatinine 0.84 0.73 - 1.18 mg/dL 11/16/2018 5:47 AM [facility] eGFR by MDRD >60 >60 mL/min/1.7 3m2 11/16/2018 5:47 AM [facility] eGFR by MDRD >60 >60 mL/min/1.7 3m2 11/16/2018 5:47 AM [facility] Blood BLOOD SPECIMEN / Unknown Lab Venipuncture / Unknown 11/16/2018 5:16 AM CDT 11/16/2018 5:23 AM CDT Narrative [facility] - 11/16/2018 5:47 AM CDT Attention clinician: BUN Reference Range has changed. Matt Nicholson MD LAB - CHEMISTRY ORDE KERON Performing Organization Address [facility] [place]/ZIP Co de Phone Number [facility] [address] [place] [address] * MAGNESIUM BLOOD (11/16/2018 5:16 AM CDT) Only the most recent of2 resultswithin the time period is included. Magnesium 2.5 1.6 - 2.6 mg/dL 11/16/2018 9:26 AM CDT [facility] Blood BLOOD SPECIMEN / Unknown Lab Venipuncture / Unknown 11/16/2018 5:16 AM CDT 11/16/2018 5:23 AM CDT Margarita Lopes PRODUCTION EXPEDITER-BUSINESS CONTINUITY ANALYST LAB - CHEMISTRY ORDERABLES Performing Organization Address [facility] [place] Co de Phone Number [facility] [address] [place] [address] * CT ABDOMEN AND PELVIS WITH IV [...] UA Yellow Straw, Yellow 11/15/2018 11:49 PM [facility] Clarity UA Clear Clear 11/15/2018 11:49 PM [facility] Glucose UA 3+(A) Negative 11/15/2018 11:49 PM [facility] Bilirubin UA Negative Negative 11/15/2018 11:49 PM [facility] Ketone UA Negative Negative 11/15/2018 11:49 PM [facility] Specific [place] UA 1.012 1.005 - 1.030 11/15/2018 11:49 PM [facility] Blood UA Negative Negative 11/15/2018 11:49 PM [facility] pH UA 5.0 5.0 - 8.0 pH 11/15/2018 11:49 PM [facility] Protein UA Negative Negative 11/15/2018 11:49 PM [facility] Urobilinogen UA Negative Negative mg/dL 11/15/2018 11:49 PM [facility] Nitrite UA Negative Negative 11/15/2018 11:49 PM [facility] Leukocyte UA Negative Negative 11/15/2018 11:49 PM [facility] Urine Microscopy Urine microscopy not indicated 11/15/2018 11:49 PM [facility] Reflex Status Culture not indicated 11/15/2018 11:49 PM [facility] Urine URINE SPECIMEN OBTAINED BY CLEAN CATCH PROCEDURE / Unknown Collection / Unknown 11/15/2018 11:41 PM CDT 11/15/2018 11:43 PM CDT Narrative [facility] - 11/15/2018 11:49 PM CDT Matt Nicholson MD LAB - URINALYSIS ORD ERABLES Performing Organization Address [facility] [place]/ZIP Co de Phone Number [facility] [address] [place] [address] * ERYTHROCYTE SEDIMENTATION RATE (11/15/2018 11:23 PM CDT) Erythrocyte Sedimentation Rate Automated 4 0 - 15 MM/HR 11/16/2018 1:59 AM CDT [facility] Blood BLOOD SPECIMEN / Unknown Venipuncture / Unknown 11/15/2018 11:23 PM CDT 11/15/2018 11:35 PM CDT Matt Nicholson MD LAB - HEMATOLOGY ORD ERABLES Performing Organization Address [facility] [place] Co de Phone Number [facility] [address] [place] [address] * C-REACTIVE PROTEIN SENSITIVE (11/15/2018 11:22 PM CDT) Pathologist [facility] C-Reactive Protein High Sensitivity 0.07 <0.30 mg/dL 11/16/2018 10:15 AM CDT [facility] Blood BLOOD SPECIMEN / Unknown Venipuncture / Unknown 11/15/2018 11:22 PM CDT 11/16/2018 1:54 AM CDT Narrative [facility] - 11/16/2018 10:15 [...] Nicholson MD LAB - CHEMISTRY CHERIE CABRALES [facility] Organization Address City/State/ZIP Co de Phone Number [facility] [address] [place] [address] * XR SHOULDER 2+ VW LEFT (07/10/2018 8:28 AM HOME ORGANIZER) Anatomical Region Laterality Modality Upper Extremity Radiographic Maribel ging 07/10/2018 8:30 AM HOME ORGANIZER Impressions 07/10/2018 8:31 AM HOME ORGANIZER No displaced fractures or dislocation identified. Reading Radiologist: Dionne Rader MD on 07/10/2018 at 8:31 AM Narrative 07/10/2018 8:31 AM HOME ORGANIZER History: Left shoulder pain following fall COMPARISON: [...] 1:49 PM CDT Procedure Title: CT RENAL STONE*[id number] HISTORY: Testicular pain, unspecified COMPARISON: None. TECHNIQUE: [...] MD - 12/17/2017 Procedure Title: CT RENAL STONE*[id number] HISTORY: Testicular pain, unspecified COMPARISON: None. TECHNIQUE: [...] Probe Negative Negative 12/18/2017 9:18 AM CDT [facility] GC Amplified Probe Negative Negative 12/18/2017 9:18 AM CDT [facility] Microbiology ENTIRE ENDOCERVIX / Unknown Collection / Unknown 12/17/2017 10:41 AM CDT 12/17/2017 4:05 PM CDT Narrative [facility] - 12/18/2017 9:18 AM CDT Results based on detection/no detection of ribosomal RNA by amplified method. Prince Brennan MD LAB - MICROBIOLOGY O RDERABLES Performing Organization Address [facility] [place] Co de Phone Number [facility] [address] [place] [address], [facility] [phone] * EKG 12-LEAD (11/26/2012 1:55 AM CDT) Only the most recent of2 resultswithin the time period is included. Narrative [facility] - 11/26/2012 1:55 AM CDT A scan was deleted from the Results section by Desmond Lorenzana [[id number]] on 11/26/2012 at 1:55 AM (File: [id number]) Procedure Note ProviderEnrique MD - 11/20/2017 A scan was deleted from the Results section by Desmond Lorenzana [[id number]] on 11/26/2012t 1:55 AM (File:[id number]) Paulo Nuñez MD ECG ORDERABLES Performing Organization Address [facility] [place] Co de Phone Number [facility] * (ABNORMAL) GLUCOSE ACCUCHECK (11/10/2012 11:22 AM CDT) Only the most recent of5 resultswithin the time period is included. Glucose, Fingerstick 139(H) 70 - 110 MG/DL [facility] Comment:PERFORMED BY: MELA LOWERY 11/10/2012 11:2 2 AM CDT 11/10/2012 11:50 AM CDT Paulo Nuñez MD LAB - CHEMISTRY CHERIE CABRALES Performing Organization Address [facility] [place] Co de Phone Number [address] [phone] * TROPONIN I (11/09/2012 6:00 PM CDT) Only the most recent of3 resultswithin the time period is included. Troponin I < 0.010 <0.032 ng/mL [facility] Comment: NOTE Any condition resulting in [...] - CHEMISTRY CHERIE CABRALES Performing Organization Address [facility] [place] Co de Phone Number [address] [phone] * CK + CKMB PANEL (11/09/2012 6:00 PM CDT) Only the most recent of3 resultswithin the time period is included. Pathologist [facility] CK Total 70 30 - 200 Units/L [facility] CK-MB 0.7 0.0 - 6.6 ng/mL [facility] Comment: CKMB Reference Range 6.6 ng/mL [...] Nuñez MD LAB - CHEMISTRY CHERIE CABRALES [facility] Organization Address City/State/[facility] Co de Phone Number [address] [phone] * MRI BRAIN WO CONTRAST (11/09/2012 4:48 [...] CDT) APTT 27.1 23.0 - 38.4 SECONDS [facility] Comment: SUGGESTED THERAPEUTIC RANGE FOR FULL DOSE I.V. HEPARIN THERAPY FOR VENOUS THROMBOEMBOLISM IS 66.0 - 91.0 SECONDS, WITH AN APTT RATIO OF 2.1 - 3.0. APTT Ratio 0.88 [facility] Plasma specimen (specimen) 11/09/2012 12:10 AM CDT 11/09/2012 12:31 AM CDT Narrative [facility] - 11/09/2012 12:45 AM CDT Is patient on Heparin, Argatroban or Dabigatran?->N IS PATIENT ON HEPARIN? (Y OR N) N Paulo Nuñez MD LAB - COAGULATION OR DERABLES [address] [phone] * (ABNORMAL) URINALYSIS W/MICROSCOPIC NO CULTURE (11/09/2012 12:10 AM CDT) Color UA YELLOW STRW,YELLOW [facility] Clarity UA CLEAR CLEAR [facility] Specific [place] Urine 1.015 1.001 - 1.030 [facility] pH UA <= 5.0 5.0 - 8.0 [facility] Protein UA NEGATIVE <20 mg/dL [facility] Glucose UA NEGATIVE NEGATIVE mg/dL [facility] Ketones NEGATIVE NEGATIVE mg/dL [facility] Bilirubin UA NEGATIVE NEGATIVE mg/dL [facility] Blood UA NEGATIVE NEGATIVE [facility] Nitrite UA NEGATIVE NEGATIVE [facility] Leukocyte Esterase NEGATIVE NEGATIVE [facility] Urobilinogen UA < 2.0 <2.0 mg/dL [facility] WBC Urine < 1 0 - 2 /HPF [facility] Mucus Urine RARE(A) NONE SEEN /LPF [facility] Urine specimen (specimen) URINE SPECIMEN OBTAINED BY CLEAN CATCH PROCEDURE / Unknown 11/09/2012 12:10 AM CDT 11/09/2012 12:31 AM CDT Paulo Nuñez MD LAB - URINALYSIS ORD ERABLES [address] [phone] * DRUG ABUSE PANEL 10-20+ETHANOL URINE NO CONFIRM (11/09/2012 12:10 AM CDT) Amphetamines NEGATIVE NEGATIVE [facility] Comment:Positive Cutoff: >=1 000 ng/mL Barbiturate NEGATIVE NEGATIVE [facility] Comment:Positive Cutoff: >=2 00 ng/mL Benzodiazepine Screen Urine NEGATIVE NEGATIVE [facility] Comment:Positive Cutoff: >=2 00 ng/mL Opiates NEGATIVE NEGATIVE [facility] Comment:Positive Cutoff: >=3 00 ng/mL Cocaine Metabolite Urine NEGATIVE NEGATIVE [facility] Comment:Positive Cutoff: >=3 00 ng/mL Phencyclidine Screen Urine NEGATIVE NEGATIVE [facility] Comment:Positive Cutoff: >=2 5 ng/mL Cannabinoids Screen Urine NEGATIVE NEGATIVE [facility] Comment:Positive Cutoff: >=5 0 ng/mL Methadone NEGATIVE NEGATIVE [facility] Comment:Positive Cutoff: >=3 00 ng/mL Note SEE NOTE [facility] Comment: Positive results should be confirmed by another generally accepted non-immunological method such as gas chromatography or mass spectrometry. Toxicology testing by the [facility] is an aid to medical diagnosis and treatment of patients. No documented chain of custody was maintained. Results are intended to be used for clinical purposes only. Note SEE NOTE [facility] Comment: The UTOX Panel does not screen for Propoxyphene, Meprobamate, Carisoprodol, Trazodone, bxyl-uhm-ozvmtgp medications and/or volatiles (Acetone, Isopropanol, Methanol, Ethylene Glycol). Ethanol, Salicylate, Acetaminophen, Tricyclic Antidepressants and several therapeutic drugs may be individually assayed in a serum specimen. Urine specimen (specimen) URINE SPECIMEN OBTAINED BY CLEAN CATCH PROCEDURE / Unknown 11/09/2012 12:10 AM CDT 11/09/2012 12:31 AM CDT Paulo Nuñez MD LAB - URINE CHEMISTR Y ORDERABLES Performing Organization Address [facility] [place] Co de Phone Number [address] [phone] * PHOSPHORUS BLOOD (11/09/2012 12:10 AM CDT) Phosphorus 3.0 2.3 - 4.7 mg/dL [facility] Serum 11/09/2012 12:1 0 AM CDT 11/09/2012 12:31 AM CDT Narrative [facility] - 11/09/2012 1:04 AM CDT IS PATIENT ON HEPARIN? (Y OR N) N Paulo Nuñez MD LAB - CHEMISTRY ORDE RABLES Performing Organization Address [facility] [place] Co de Phone Number [address] [phone] * HEPATIC FUNCTION PANEL (11/09/2012 12:10 AM CDT) Protein Total 6.9 6.0 - 8.3 g/dL [facility] Albumin 3.8 3.4 - 5.0 g/dL [facility] Bilirubin Total 0.5 0.2 - 1.2 mg/dL [facility] Alkaline Phosphatase 54 40 - 150 Units/L [facility] ALT 8 0 - 55 Units/L [facility] AST 18 5 - 34 Units/L [facility] Albumin/Globulin Ratio 1.2 1.1 - 2.3 [facility] Bilirubin Direct 0.2 0.0 - 0.5 mg/dL [facility] Bilirubin Indirect 0.3 mg/dL [facility] Comment: Unconjugated bilirubin is a calculated value, reference ranges have not been established Venous blood specimen (specimen) 11/09/2012 12:10 AM CDT 11/09/2012 12:31 AM CDT Narrative [facility] - 11/09/2012 1:04 AM CDT IS PATIENT ON HEPARIN? (Y OR N) N Paulo Nuñez MD LAB - CHEMISTRY CHERIE CABRALES Performing Organization Address [facility] [place]/ZIP Co de Phone Number [address] [phone] * (ABNORMAL) LIPID PROFILE (11/09/2012 12:10 AM [...] - CHEMISTRY CHERIE CABRALES Performing Organization Address [facility] [place]/ZIP Co de Phone Number [address] [phone] * XR CHEST 1VW PORTABLE (11/08/2012 11:45 [...] Nuñez MD ECHOCARDIOGRAPHY RAD IANT Care Teams Natural Resource Officer Relationship Specialty Start Date End Date Fidel Camejo MD [address] [place] [phone] PCP - General Family Medicine 04/10/24
--- OUTSIDE RECORDS SUMMARY | 2024-08-19 11:10 | XMS_ITS | Encounter Summary ---
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 documented as of this encounter Plan of Treatment Not on file documented as of this encounter Procedures Procedure Name Priority Date/Time Associated Diagnosis Comments SCAN - LABS 04/08/2024 documented in this encounter Results * SCAN - LABS (04/08/2024) us Provider Scanning Final Result documented in this encounter Visit Diagnoses Not on filedocumented in this encounter Care Teams Practice Assistant Relationship Specialty Start Date End Date Matt Mathews MD [address] [place] [address] PCP - General Family Medicine 03/31/22 Dwight Nascimento MD Consulting Physician Internal Medicine 09/20/21 documented as of this encounter
--- OUTSIDE RECORDS SUMMARY | 2024-08-19 11:10 | XMS_ITS | Clinical Summary ---
Author Organization [facility] Address [address] [facility] [place] [address] Care Team Providers Care Ham Trimmer Name Role Phone Fidel Camejo MD Primary Care Provider Source Comments [facility],non-owned Affiliates and Associated Physician Practices is amultiple site organization consisting of ambulatory clinics and hospital sitesin [place], [place], [place] and [place]. This disclosure is being madepursuant to the Care Everywhere program and may not contain all information available regarding this patient. Last updated 18.[facility] Allergies No known active allergies Medications * [...] 36.6 C (97.9 F) 07/12/2020 10:23 AM SEISMOGRAPH COMPUTER Respiratory Rate 18 11/01/2020 11:37 AM CDT Oxygen Saturation 100% 11/01/2020 11:37 AM CDT Inhaled Oxygen Concentration - - Weight 81.2 kg (179 lb) 11/01/2020 11:37 AM CDT Height 165.1 cm (5' 5 ) 07/12/2020 10:23 AM SEISMOGRAPH COMPUTER Body Mass Index 29.79 07/12/2020 10:23 AM SEISMOGRAPH COMPUTER Plan of Treatment Health Maintenance Due Date [...] Management General On track( 021 10:36 AM SEISMOGRAPH COMPUTER) No Jose Juan Dumont, RN Note: Expected end date: Interventions: Take all medications as prescribed Let your doctor know right away about any changes in your medications Make sure to request a refill of your medication at least one week prior to your last dose Procedures Procedure Name Priority Date/Time Associated Diagnosis Comments COMPREHENSIVE METABOLIC PANEL Routine 07/12/2020 12:54 PM SEISMOGRAPH COMPUTER Abdominal pain, unspecified abdominal location Chronic diarrhea HEPATITIS C ANTIBODY Routine 04/04/2020 1:28 PM CDT RUQ pain Abnormal finding on imaging of liver LIPID PROFILE Routine 11/09/2012 12:10 AM CDT from Last 3 Months or Most Recently Relevant to Health Maintenance Results * (ABNORMAL) COMPREHENSIVE METABOLIC PANEL (07/12/2020 12:54 PM SEISMOGRAPH COMPUTER) BUN 10 7 - 26 mg/dL 07/12/2020 2:12 PM [facility] Creatinine 0.6 0.6 - 1.2 mg/dL 07/12/2020 2:12 PM [facility] Sodium 138 136 - 145 mmol/L 07/12/2020 2:12 PM [facility] Potassium 4.2 3.5 - 4.5 mmol/L 07/12/2020 2:12 PM [facility] Chloride 103 98 - 107 mmol/L 07/12/2020 2:12 PM [facility] CO2 26 22 - 29 mmol/L 07/12/2020 2:12 PM [facility] Glucose 133(H) 70 - 115 mg/dL 07/12/2020 2:12 PM [facility] Calcium 9.1 8.4 - 10.2 mg/dL 07/12/2020 2:12 PM [facility] Protein Total 6.9 6.0 - 8.3 g/dL 07/12/2020 2:12 PM [facility] Albumin 3.8 3.4 - 5.0 g/dL 07/12/2020 2:12 PM [facility] Bilirubin Total 1.0 0.2 - 1.2 mg/dL 07/12/2020 2:12 PM [facility] Alkaline Phosphatase 178(H) 40 - 150 Units/L 07/12/2020 2:12 PM [facility] ALT 18 0 - 55 Units/L 07/12/2020 2:12 PM [facility] AST 46(H) 5 - 34 Units/L 07/12/2020 2:12 PM [facility] Anion Gap 13 8 - 18 07/12/2020 2:12 PM [facility] BUN/Creatinine Ratio 17 7 - 23 07/12/2020 2:12 PM SEISMOGRAPH COMPUTER [facility] Osmolality Calculated 287 270 - 300 mOsm/kg 07/12/2020 2:12 PM [facility] Albumin/Globulin Ratio 1.2 1.1 - 2.3 07/12/2020 2:12 PM [facility] eGFR >60 >60 mL/min/1.7 3 m2 07/12/2020 2:12 PM [facility] Blood BLOOD SPECIMEN / Unknown Lab Venipuncture / Unknown 07/12/2020 12:54 PM SEISMOGRAPH COMPUTER 07/12/2020 1:20 PM SEISMOGRAPH COMPUTER Billie Medrano MD LAB - CHEMISTRY CHERIE CABRALES Performing Organization Address City/[facility]/ZIP Co de Phone Number [address] [phone], [facility] [phone] * HEPATITIS C ANTIBODY (04/04/2020 1:28 PM CDT) Pathologist [facility] Hepatitis C Antibody Non-react cathi Non-reac tive 04/04/2020 3:27 PM CDT [facility] Comment:Hepatitis C Antibody screen indicates no [...] Medrano MD LAB - CHEMISTRY CHERIE CABRALES [address] [address], [place] [phone] * (ABNORMAL) LIPID PROFILE (11/09/2012 12:10 AM CDT) Cholesterol Total 199 <200 mg/dL [facility] HDL 56 > OR = 40 mg/dL [facility] Comment: ATP III classification of HDL cholesterol: <40 mg/dL Low; considered a major risk factor >60 mg/dL High; considered a negative risk factor Triglycerides 339(H) <150 mg/dL [facility] Comment: ATP III classification of Triglycerides: < 150 mg/dL Normal triglycerides 150-199 mg/dL Borderline-high triglycerides 200-400 mg/dL High triglycerides > 500 mg/dL Very high triglycerides LDL Calculated 75 0 - 100 mg/dL [facility] Comment: ATP III classification of LDL cholesterol: <100 mg/dL Optimal 100-129 Near optimal/above optimal 130-159 Borderline high 160-189 High >190 Very high 11/09/2012 12:1 0 AM CDT 11/09/2012 12:31 AM CDT Narrative [facility] - 11/09/2012 12:19 PM CDT IS PATIENT ON HEPARIN? (Y OR N) N Paulo Nuñez MD LAB - CHEMISTRY CHERIE CABRAL[facility] Organization Address City/State/[facility] Co de Phone Number [facility] [address] [phone] from Last 3 Months or Most Recently Relevant to Health Maintenance Advance Directives * Full Code (Latest Code Status on File) Date Activated Date Inactivated Comments 11/16/2018 3:08 AM 11/17/2018 7:07 PM Care Teams Ham Trimmer Relationship Specialty Start Date End Date Fidel Camejo MD [address] [place] [phone] PCP - General Family Medicine 04/10/24
--- OUTSIDE RECORDS SUMMARY | 2024-08-19 11:10 | XMS_ITS | Referral Summary ---
Author Organization [facility] [employer] Address [address] [place] [address] Care Team Providers Care Physical Therapy Attendant Name Role Phone Fidel Camejo MD Primary Care Provider [phone] Source Comments [facility] [employer],non-owned Affiliates and Associated Physician Practices is amultiple site organization consisting of ambulatory clinics and hospital sitesin [place], [place], [place] and [place]. This disclosure is being madepursuant to the Care Everywhere program and may not contain all information available regarding this patient. Last updated 18.[facility] [employer] Allergies No known active allergies Medications * [...] 36.6 C (97.9 F) 07/12/2020 10:23 AM MEDICAL RECORDS SUPERVISOR Respiratory Rate 18 11/01/2020 11:37 AM CDT Oxygen Saturation 100% 11/01/2020 11:37 AM CDT Inhaled Oxygen Concentration - - Weight 81.2 kg (179 lb) 11/01/2020 11:37 AM CDT Height 165.1 cm (5' 5 ) 07/12/2020 10:23 AM MEDICAL RECORDS SUPERVISOR Body Mass Index 29.79 07/12/2020 10:23 AM MEDICAL RECORDS SUPERVISOR Plan of Treatment Not on file Goals Goal Patient Goal Type Associated Problems Recent Progress Patient-Stated? Author Medication Management General On track( 021 10:36 AM MEDICAL RECORDS SUPERVISOR) Jose Juan Prince RN Note: Expected end date: Interventions: Take all medications as prescribed Let your doctor know right away about any changes in your medications Make sure to request a refill of your medication at least one week prior to your last dose Procedures Procedure Name Priority Date/Time Associated Diagnosis Comments COMPREHENSIVE METABOLIC PANEL Routine 07/12/2020 12:54 PM MEDICAL RECORDS SUPERVISOR Abdominal pain, unspecified abdominal location Chronic diarrhea HEPATITIS C ANTIBODY Routine 04/04/2020 1:28 PM CDT RUQ pain Abnormal finding on imaging of liver LIPID PROFILE Routine 11/09/2012 12:10 AM CDT from Last 3 Months or Most Recently Relevant to Health Maintenance Results * (ABNORMAL) COMPREHENSIVE METABOLIC PANEL (07/12/2020 12:54 PM MEDICAL RECORDS SUPERVISOR) BUN 10 7 - 26 mg/dL 07/12/2020 2:12 PM [facility] Creatinine 0.6 0.6 - 1.2 mg/dL 07/12/2020 2:12 PM [facility] Sodium 138 136 - 145 mmol/L 07/12/2020 2:12 PM [facility] Potassium 4.2 3.5 - 4.5 mmol/L 07/12/2020 2:12 PM [facility] Chloride 103 98 - 107 mmol/L 07/12/2020 2:12 PM [facility] CO2 26 22 - 29 mmol/L 07/12/2020 2:12 PM [facility] Glucose 133(H) 70 - 115 mg/dL 07/12/2020 2:12 PM [facility] Calcium 9.1 8.4 - 10.2 mg/dL 07/12/2020 2:12 PM [facility] Protein Total 6.9 6.0 - 8.3 g/dL 07/12/2020 2:12 PM [facility] Albumin 3.8 3.4 - 5.0 g/dL 07/12/2020 2:12 PM [facility] Bilirubin Total 1.0 0.2 - 1.2 mg/dL 07/12/2020 2:12 PM [facility] Alkaline Phosphatase 178(H) 40 - 150 Units/L 07/12/2020 2:12 PM [facility] ALT 18 0 - 55 Units/L 07/12/2020 2:12 PM [facility] AST 46(H) 5 - 34 Units/L 07/12/2020 2:12 PM [facility] Anion Gap 13 8 - 18 07/12/2020 2:12 PM [facility] BUN/Creatinine Ratio 17 7 - 23 07/12/2020 2:12 PM [facility] Osmolality Calculated 287 270 - 300 mOsm/kg 07/12/2020 2:12 PM [facility] Albumin/Globulin Ratio 1.2 1.1 - 2.3 07/12/2020 2:12 PM [facility] eGFR >60 >60 mL/min/1.7 3 m2 07/12/2020 2:12 PM [facility] Blood BLOOD SPECIMEN / Unknown Lab Venipuncture / Unknown 07/12/2020 12:54 PM MEDICAL RECORDS SUPERVISOR 07/12/2020 1:20 PM [facility] Billie Medrano MD LAB - CHEMISTRY CHERIE CABRALES [facility] Organization Address City/State/ZIP Co de Phone Number [facility] [address] [place] [address], [facility] [phone] * HEPATITIS C ANTIBODY (04/04/2020 1:28 PM CDT) Hepatitis C Antibody Non-react cathi Non-reac tive 04/04/2020 3:27 PM CDT [facility] Comment:Hepatitis C Antibody screen indicates no [...] Medrano MD LAB - CHEMISTRY CHERIE CABRALES [facility] [address] [place] [address], [facility] [phone] * (ABNORMAL) LIPID PROFILE (11/09/2012 12:10 AM CDT) Cholesterol Total 199 <200 mg/dL [facility] HDL 56 > OR = 40 mg/dL [facility] Comment: ATP III classification of HDL cholesterol: <40 mg/dL Low; considered a major risk factor >60 mg/dL High; considered a negative risk factor Triglycerides 339(H) <150 mg/dL [facility] Comment: ATP III classification of Triglycerides: < 150 mg/dL Normal triglycerides 150-199 mg/dL Borderline-high triglycerides 200-400 mg/dL High triglycerides > 500 mg/dL Very high triglycerides LDL Calculated 75 0 - 100 mg/dL [facility] Comment: ATP III classification of LDL cholesterol: <100 mg/dL Optimal 100-129 Near optimal/above optimal 130-159 Borderline high 160-189 High >190 Very high 11/09/2012 12:1 0 AM CDT 11/09/2012 12:31 AM CDT Narrative [facility] - 11/09/2012 12:19 PM CDT IS PATIENT ON HEPARIN? (Y OR N) N Paulo Nuñez MD LAB - CHEMISTRY CHERIE CABRALES Performing Organization Address City/[facility]/ZIP Co de Phone Number [facility] [address] [place], [place] [address] [phone] from Last 3 Months or Most Recently Relevant to Health Maintenance Advance Directives * Full Code (Latest Code Status on File) Date Activated Date Inactivated Comments 11/16/2018 3:08 AM 11/17/2018 7:07 PM Care Teams Physical Therapy Attendant Relationship Specialty Start Date End Date Fidel Camejo MD [address] [place] [address] [phone] PCP - General Family Medicine 04/10/24
== END 2024-08-19 10:17 | disposition home or self-care (01) ==
LOC: ANHIMG 10:18
PROVIDERS: PCP Hospitalist; Visit Provider Nurse Practitioner Family
DX: R18.8 Other ascites (principal)
CPT/HCPCS: 49083

== ENCOUNTER 2024-08-26 08:49 | Outpatient (CLI) | payer MEDICARE, MEDICAID, SELFPAY ==
--- NOTE | ~2024-08-26 | US_ITS ---
ULTRASOUND-GUIDED PARACENTESIS INDICATION: ABD PAIN/MASS . TECHNIQUE/FINDINGS: All risks, benefits, and alternatives of this procedure were thoroughly discussed with the patient an d all questions were answered. The time out procedure was performed and the patient was properly mat ntified. Witnessed written and verbal informed consent was then obtained from the patient. The sonographic ev aluation of the abdomen demonstrated a scant amount of ascitic fluid in the abdomen, the largest conc entration within the left lower quadrant which was targeted for paracentesis. Following local analge araceli with 1% lidocaine, a centesis catheter was inserted into the left peritoneal cavity, and the need le was removed. A total of 200 cc of thin yellow fluid was drained. The catheter removed and a steril e dressing applied. The patient tolerated the procedure without difficulty and was discharged from [facility] radiology Department after appropriate observation, as per protocol. Impression: 1. Technically successful ultrasound guided diagnostic paracentesis yielding 200 cc of thin yellow f luid. 2. No immediate complications. Reviewed, dictated and finalized at location A. Impression: 1. Technically successful ultrasound guided diagnostic paracentesis yielding 2 00 cc of thin yellow fluid. 2. No immediate complications.
--- NOTE | ~2024-08-26 | CT_ITS ---
CT of the Abdomen and Pelvis: Indication: Abdominal pain Technique: 2.5 mm axial scans were obtained through the abdomen and pelvis following intravenous adm inistration of 100 cc of Omnipaque 350. Dose reduction technique was used on this scan by utilizing a utomated exposure control and iterative reconstruction technique. The dose-length product (DLP) was 5 72.55 mGy-cm. COMPARISON: 05/19/2024 Findings: Scans through the lung bases demonstrate probable mild atelectatic changes. Probable micronodular contour of liver, suggestive of cirrhosis. Spleen is enlarged, measuring at [facility] [facility] 18.2 cm in length. Cholecystectomy clips are present. Probable left upper quadrant varices noted. The pancreas, adrenals and kidneys are within normal limits. No evidence of aortic aneurysm. No lym phadenopathy. No bowel obstruction or bowel wall thickening. There is no evidence to suggest acute appendicitis. Th ere is umbilical hernia containing fat and fluid. Images through the pelvis were performed. Urinary bladder unremarkable. No pelvic mass seen. Small to moderate abdominopelvic ascites present. Impression: Cirrhotic change of the liver with splenomegaly, small to moderate ascites, and left upper quadrant v arices. Umbilical hernia containing fat and fluid, similar to prior exam. Reviewed, dictated and finalized at location M. Impression: Cirrhotic change of the liver with splenomegaly, small to moderate ascites, and left upper quadrant varices. Umbilical hernia containing fat and fluid, similar to prior exam.
--- OUTSIDE RECORDS SUMMARY | 2024-08-26 09:20 | XMS_ITS | Referral Summary ---
Author Organization [facility] [address] Address [address] [place] [address] Care Team Providers Care Sitecore Developer Name Role Phone Dwight Nascimento MD Unavailable Matt Mathews MD Primary Care Provider [phone] Encounters Date Type Department Care Team Description 08/17/2024 Telephone [facility] Radiology, Interventional Radiology [address] [place] [address] Mary Ann Basurto, COREY Appointment 08/08/2024 Telephone [facility] Radiology [address] [place] [address] Mary Ann Armendariz, COREY 08/05/2024 Results Follow-Up [facility] Gastroenterology [address] [place] [address] Elan Hood MD Alcoholic cirrhosis of liver with ascites (HCC) (Primary Dx) 08/02/2024 10:43 AM DOCK GUARD - 08/02/2024 11:59 PM DOCK GUARD Hospital Encounter [facility] [address] [place] [address] Alcoholic cirrhosis of liver with ascites (HCC); Cirrhosis of liver with ascites, unspecified hepatic cirrhosis type (HCC); Ascites due to alcoholic cirrhosis (HCC); Hepatic encephalopathy (HCC) Discharge Disposition: Discharge to home or self care 08/02/2024 10:42 AM DOCK GUARD - 08/02/2024 11:59 PM DOCK GUARD Hospital Encounter [facility] Radiology Echo Lab [address] [place] [address] Alcoholic cirrhosis of liver with ascites (HCC); Cirrhosis of liver with ascites, unspecified hepatic cirrhosis type (HCC); Ascites due to alcoholic cirrhosis (HCC); Hepatic encephalopathy (HCC) Discharge Disposition: Discharge to home or self care 07/01/2024 Telephone [facility] Gastroenterology [address] 12th [place] [address] [place] [id number] Nancy Christensen 06/29/2024 Telephone [facility] Gastroenterology [address] 12th [place] [address] [place] [address] Julissa Molina LPN 06/23/2024 11:55 AM DOCK GUARD Lab [facility] [address] [place] [address] Alcoholic cirrhosis of liver with ascites (HCC); Type 2 diabetes mellitus without complication, with long-term current use of insulin (HCC) 06/23/2024 9:40 AM DOCK GUARD Office Visit [facility] Gastroenterology [address] [place] [address] Medical [address], [address] [place] [address] Elan Hood MD Alcoholic cirrhosis of liver with ascites (HCC) (Primary Dx); Type 2 diabetes mellitus without complication, with long-term current use of insulin (HCC); Alcohol use disorder; Hepatic encephalopathy (HCC) 06/10/2024 Orders [facility] Management [address] [place] [address] Matt Mathews MD from Last 3 [...] a day 240 tablet 3 3 Active eblizzTouch Ultra Test strip CHECK 2-3 TIMES DAILY 2 Active blood-glucose meter (eblizzTouch Ultra2 Meter) misc CHECK 2-3 TIMES PER DAY 2 Active cyclobenzaprine (FLEXERIL) 10 mg tablet Take 1 tablet (10 mg total) by mouth 3 (three) times a day as needed for muscle spasms 3 Active empagliflozin (Jardiance) 10 mg tablet Take 1 tablet (10 mg total) by mouth daily 2 Active lancets (eblizzTouch Delica Plus Lancet) 30 gauge misc CHECK [...] 08/18/2022 Assessment & Plan (08/18/2022 1:51 PM DOCK GUARD): Patient reports decreased edema; low continues to [...] 04/29/2022 Assessment & Plan (04/29/2022 1:45 PM DOCK GUARD): To hospital for severe pain and diarrhea; [...] 09/22/2021 Assessment & Plan (07/10/2022 12:41 PM DOCK GUARD): Continues to be present, causing pain and [...] medication Assessment & Plan (07/29/2022 2:02 PM DOCK GUARD): Patient reports generally improved pain management, though decreased response to 5 mg of oxycodone; discussed with patient metabolism pathway limits use of hydrocodone due to risk of overdose and accumulation of metabolites Will increase oxycodone at next refill Assessment & Plan (06/13/2021 10:19 AM DOCK GUARD): Patient was advised given concern for an incarcerated umbilical hernia to report to the er now. He is going to [facility]. He was asked to contact the office [...] outcome. Assessment & Plan (06/03/2021 6:29 PM DOCK GUARD): Patient continues to complain of jeovany-umbilical abdominal pain and is requesting continued refills of Tramadol. When asked how many he had left he states he ran out of them a week ago -- He was just given #12 on 05/13 upon discharge from [facility]. Today is 05/22 so if he ran [...] 7:11 PM CDT): Still awaiting records from [facility] regarding the Cardiology evaluation of the pericardial [...] MEL. Assessment & Plan (06/03/2021 6:10 PM DOCK GUARD): Positive MEL. Per Rheumatology evaluation there is no rheumatologic cause for his symptoms as he does not have any clinical features of rheumatologic connective tissues disease at this time. Hence none of his pain is related to an autoimmune condition at this point. Assessment & Plan (01/27/2021 10:05 PM CDT): Awaiting recommendation from [facility] Rheum. Has Oct appointment Assessment & [...] management Assessment & Plan (06/03/2021 6:10 PM DOCK GUARD): Chronic wedge compression fracture at T11. Patient [...] No hx of HE/jaundice. MRCP 05/2020 at [facility] with cirrhosis/hepatic steatosis, 1.8 cm arterially [...] requiring banding x 2 done locally at [facility] in [place], based on OSH records 1 EGD was [...] paracentesis Assessment & Plan (08/18/2022 1:49 PM DOCK GUARD): Not well controlled, patient had 5 L removed by paracentesis 1 week ago; is already refilled with ascitic fluid Patient to follow-up with cardiology on will likely need standing order for paracentesis Continue furosemide 80 mg b.i.d., spironolactone 100 mg daily Complicated by worsening peripheral edema Patient to follow-up with hepatology at end of week Assessment & Plan (08/04/2022 10:04 AM DOCK GUARD): Not well controlled; continues to have significant [...] site Assessment & Plan (07/29/2022 2:01 PM DOCK GUARD): Not well controlled, worsening; patient has recurrent [...] NAFLD Assessment & Plan (07/10/2022 12:43 PM DOCK GUARD): Admitted for EGD with banding, required 3 [...] 10:13 AM CDT): Continue per GI at [facility] for his cirrhosis. Stressed importance of following up on a regular basis due his progressive disease. Assessment & Plan (09/15/2021 8:39 PM CDT): Continue per hepatology at [facility] Assessment & Plan (06/03/2021 6:09 PM DOCK GUARD): Continue her GI at [facility], Dr. Jasso. He has been started on new medication to help decrease the ascites buildup. Encouraged him to follow their directions and keep his appointments. Strongly encouraged complete cessation of alcohol. I reviewed the lab results regarding alcohol use. He still adamant that he has not drank since his 51th birthday. Assessment & Plan (05/14/2021 12:07 PM DOCK GUARD): - MELD labs today, and repeat autoimmune [...] followup with local GI. Await recommendation from [facility] hepatology Assessment & Plan (12/12/2020 [...] call to Dr. Rodriguez, Attending GI at [facility] to discuss his recent labs, most importantly the positive MEL at 1:1280. I left a message on 11/20 and will await return call. I have concern for possible autoimmune hepatitis as the underlying cause. Patient appears to have increased ascites over the past few weeks. Increased pain. Increased orthopnea. Will check abdominal US at [facility] (patient to schedule on own as order and phone number provided). If has acute increase in sxs, encouraged to present to [facility] ER for further evaluation so GI/heapatology group can evaluate. He would like to transfer care to [facility]. Tramadol a few times a day is managing pain. Monitor closely Dr. Gordon, utility tech at [facility] returned my call on November 23. Discussed [...] PM CDT): Stressed importance of followup with utility tech. He states he has followup with Dr. Medrano at [facility] at the end of October and next week with Dr. Claros. He is having daily pain. Attempted to contact Dr Claros. Multiple messages left with staff and call not returned. Will await recommendations from Dr. Medrano. Discussed referral to [facility] utility tech --- patient has a family member in [...] diet Assessment & Plan (07/10/2022 12:44 PM DOCK GUARD): Not well controlled, has been on insulin [...] 05/22/20212021 Assessment & Plan (05/22/2021 10:54 AM DOCK GUARD): Obesity is unchanged. Discussed the patient's BMI. The BMI is above average. BMI management plan is completed. BMI Follow-up includes: nutrition counseling, exercise counseling and education provided. BMI 31.0-31.9,adult 05/22/2021 08/29/19 22 Assessment & Plan (05/22/2021 10:54 AM DOCK GUARD): Obesity is unchanged. Discussed the patient's BMI. [...] on file Legal Sex Male 9:05 AM DOCK GUARD Gender Identity Male 06/09/2023 11:43 AM DOCK GUARD Sexual Orientation Straight 06/09/2023 11 :43 AM DOCK GUARD Last Filed Vital Signs Vital Sign Reading Time Taken Comments Blood Pressure 94/60 06/23/2024 10:30 AM DOCK GUARD Pulse 80 06/23/2024 10:30 AM DOCK GUARD Temperature 37 C (98.6 F) 06/23/2024 10:30 AM DOCK GUARD Respiratory Rate 16 06/23/2024 10:30 AM DOCK GUARD Oxygen Saturation 94% 06/23/2024 10:30 AM DOCK GUARD Inhaled Oxygen Concentration - - Weight 68.6 kg (151 lb 3.2 oz) 06/23/2024 10:30 AM DOCK GUARD Height 165.1 cm (5' 5 ) 06/23/2024 10:30 AM DOCK GUARD Body Mass Index 25.16 06/23/2024 10:30 AM DOCK GUARD Plan of Treatment Not on file Medical Devices Implanted Type Area Infrastructure Project Manager Device Identifier Shelf Expiration Date Model / Serial / Lot Rt Shoulder Rotator Cuff Repair Castleberry Suture Right: Shoulder Procedures Procedure Name Priority Date/Time Associated Diagnosis Comments MRI ABDOMEN LIVER W WO CONTRAST Schedule Routine, Read Routine (OP Routine) 08/02/2024 12:30 PM DOCK GUARD Alcoholic cirrhosis of liver with ascites (HCC) Cirrhosis of liver with ascites, unspecified hepatic cirrhosis type (HCC) Ascites due to alcoholic cirrhosis (HCC) Hepatic encephalopathy (HCC) TRANSTHORACIC ECHO (TTE) COMPLETE W DOPPLER/CF WO CONTRAST Routine 08/02/2024 11:22 AM DOCK GUARD Alcoholic cirrhosis of liver with ascites (HCC) Cirrhosis of liver with ascites, unspecified hepatic cirrhosis type (HCC) Ascites due to alcoholic cirrhosis (HCC) Hepatic encephalopathy (HCC) EGD Routine 07/05/2024 1:14 PM DOCK GUARD EGFR Routine 06/23/2024 12:02 PM DOCK GUARD Alcoholic cirrhosis of liver with ascites (HCC) DIFFERENTIAL AUTO Routine 06/23/2024 12:02 PM DOCK GUARD Alcoholic cirrhosis of liver with ascites (HCC) CBC WITH AUTO DIFFERENTIAL Routine 06/23/2024 12:02 PM DOCK GUARD Alcoholic cirrhosis of liver with ascites (HCC) COMPREHENSIVE METABOLIC PANEL Routine 06/23/2024 12:02 PM DOCK GUARD Alcoholic cirrhosis of liver with ascites (HCC) PROTIME-INR Routine 06/23/2024 12:02 PM DOCK GUARD Alcoholic cirrhosis of liver with ascites (HCC) EUOPE-0-[id number], TUMOR MARKER Routine 06/23/2024 12:02 PM DOCK GUARD Alcoholic cirrhosis of liver with ascites (HCC) PHOSPHATIDYLETHANOL Routine 06/23/2024 12:02 PM DOCK GUARD Alcoholic cirrhosis of liver with ascites (HCC) HEMOGLOBIN A1C Routine 06/23/2024 12:02 PM DOCK GUARD Alcoholic cirrhosis of liver with ascites (HCC) Type 2 diabetes mellitus without complication, with long-term current use of insulin (HCC) SCAN - RADIOLOGY/IMAGING 06/10/2024 ALBUMIN CREATININE RATIO, URINE Routine 08/15/2022 POCT LIPID PANEL Routine 07/28/2022 9:31 AM DOCK GUARD Lipid screening HM COLONOSCOPY Routine 03/12/2022 PSA SCREEN Routine 10/19/2020 10:46 AM CDT Prostate cancer screening from Last 3 Months or Most Recently Relevant to Health Maintenance Results * MRI Abdomen Liver W WO Contrast (08/02/2024 12:30 PM DOCK GUARD) Anatomical Region Laterality Modality Body N/A Magnetic Resonan ce 08/02/2024 12:5 8 PM DOCK GUARD Impressions 08/02/2024 1:03 PM DOCK GUARD 1. Hepatic cirrhosis with portal hypertension including [...] Lulú Omer M.D. Narrative 08/02/2024 1:03 PM DOCK GUARD EXAMINATION: MAGNETIC RESONANCE IMAGING OF THE ABDOMEN [...] W DOPPLER/CF WO CONTRAST (08/02/2024 11:22 AM DOCK GUARD) Anatomical Region Laterality Modality Ultrasound 08/02/2024 10:4 4 AM DOCK GUARD Narrative 08/02/2024 1:29 PM DOCK GUARD [facility] [place] [address] Transthoracic Echocardiographic Report Patient Name: MATT NICOLE E : 1970 (54y 6m) Gender: M Study Date: 08/02/2024 10:44:37 AM Ht(Inch): 65 Wt(Lb): 151.24 BSA: 1.77 Paper Cone Grader: EVON Location: [facility] Order Provider: ELAN HOOD Heart Rate: 64 BMI: 25.16 BP: 122 / 80 Quality: The study images were of technically good quality. Ref Provider: ELAN HOOD PROCEDURES: Echocardiographic Report: ([id number]) Transthoracic complete echo, 2D, spectral and tissue [...] By: Rasheeda Manzanares MD 08/02/2024 1:28:05 PM DOCK GUARD Electronically Signed By: Rasheeda Manzanares MD 08/02/2024 1:28:05 PM DOCK GUARD Procedure Note Rasheeda Manzanares MD - 08/02/2024 [facility] [place] [address] Transthoracic Echocardiographic Report Patient Name: MATT NICOLE E : 1970 (54y 6m) Gender: M Study Date: 08/02/2024 10:44:37 AM Ht(Inch): 65 Wt(Lb): 151.24 BSA: 1.77 Paper Cone Grader: EVON Location: [facility] Order Provider: ERWINELAN Heart Rate: 64 BMI: 25.16 BP: 122 / 80 Quality: The study images were oftechnically good quality. Ref Provider: MEME HOODSON PROCEDURES: Echocardiographic Report: ([id number]) Transthoracic complete echo, 2D,spectral and tissue Doppler, [...] LA Length 2C 5.82 cm MV Decel [id number] msec [ 104.00 - 258.00 ] LA [...] By: Rasheeda Manzanares MD 08/02/2024 1:28:05 PM DOCK GUARD Electronically Signed By: Rasheeda Manzanares MD 08/02/2024 1:28:05 PM DOCK GUARD Elan Hood MD CV ECHO PROCEDURES Final Resul t * EGD -[facility] (07/05/2024 1:14 PM DOCK GUARD) Anatomical Region Laterality Modality Other Historical Provider GI PROCEDURE ORDERABLES F inal Result * Phosphatidylethanol (06/23/2024 12:02 PM DOCK GUARD) PHOSPHATIDYLETHANOL Negative . [facility] Comment: ADDITIONAL INFORMATION This report is intended for use in clinical monitoring and management of patients. It is not intended for use in employment-related testing. This test was developed and its performance characteristics determined by [facility] in a manner consistent with CLIA requirements. This test has not been cleared or approved by the U.S. Food and Drug Administration. Test Performed by: [facility] [address] [place] [address] Host/Hostess Ground: Smooth Goff Ph.D.; CLIA# [id number] PEth 16:0/18:1 (POPEth)by LC-MS/MS <10 Cutoff: 10 [...] well established Blood 06/23/2024 12:0 2 PM DOCK GUARD 06/23/2024 12:16 PM DOCK GUARD us Elan Hood MD LAB BLOOD ORDERABLES Final Res ult [facility] [address] [facility]. Department of [employer] [place] [address] [facility] * (ABNORMAL) eGFR (06/23/2024 12:02 PM DOCK GUARD) eGFR 55(L) >=60 mL/min/1. 73 m2 Comment: [...] reviewed 2021. Blood 06/23/2024 12:0 2 PM DOCK GUARD 06/23/2024 12:16 PM DOCK GUARD us Elan Hood MD LAB BLOOD ORDERABLES Final Res ult [facility] [address] [facility]. Department [place] [address] * Differential, auto (06/23/2024 12:02 PM DOCK GUARD) Pathologist [facility] Neutrophil abs 4.3 1.5 - 6.5 K/cumm [...] 2017. Imm gran pct 0.5 % [facility] Comment: Interpretive Data Percent cell count reference ranges are not reported, since discordance with absolute values may lead to misinterpretation of CBC data. Current Interpretive Data was last revised on 2017. Lymphocyte pct 13.0 % [facility] Comment: Interpretive Data Percent cell count reference ranges are not reported, since discordance with absolute values may lead to misinterpretation of CBC data. Current Interpretive Data was last revised on 2017. Monocyte pct 12.9 % [facility] Comment: Interpretive Data Percent cell count reference ranges are not reported, since discordance with absolute values may lead to misinterpretation of CBC data. Current Interpretive Data was last revised on 2017. Eosinophil pct 1.8 % [facility] Comment: Interpretive Data Percent cell count reference ranges are not reported, since discordance with absolute values may lead to misinterpretation of CBC data. Current Interpretive Data was last revised on 2017. Basophil pct 0.5 % [facility] Comment: Interpretive Data Percent cell count reference ranges are not reported, since discordance with absolute values may lead to misinterpretation of CBC data. Current Interpretive Data was last revised on 2017. Blood 06/23/2024 12:0 2 PM DOCK GUARD 06/23/2024 12:16 PM DOCK GUARD us Elan Hood MD LAB BLOOD ORDERABLES Final Res ult [facility] [address] [facility] Department [place] [employer] [place] [address] * (ABNORMAL) CBC with auto differential (06/23/2024 12:02 PM DOCK GUARD) WBC 6.1 3.8 - 9.9 K/cumm Hgb 12.8(L) 13.0 - 17.5 g/dL [facility] Hct 40.8 38.9 - 50.3 % [facility] Plt 99(L) 150 - 400 K/cumm [facility] MPV 10.6 9.1 - 12.3 fL [facility] RBC 4.35 4.30 - 5.80 M/cumm [facility] MCV 93.8 81.3 - 96.4 fL [facility] MCH 29.4 27.1 - 33.3 pg [facility] MCHC 31.4(L) 32.3 - 35.7 g/dL [facility] RDW CV 15.4(H) 11.1 - 14.9 % [facility] RDW SD 53.1(H) 35.7 - 48.1 fL [facility] NRBC abs 0.00 0.00 - 0.01 K/cumm [facility] Blood 06/23/2024 12:0 2 PM DOCK GUARD 06/23/2024 12:16 PM DOCK GUARD us Elan Hood MD LAB BLOOD ORDERABLES Final Res ult [facility] [address] [facility]. Department [place] [employer] [place] [address] * Uhrft-5-Mloqhbrjxjy, Tumor Marker (06/23/2024 12:02 PM DOCK GUARD) alpha Fetoprotein <1.8 <=8.3 ng/mL Comment: Interpretive [...] 2018;[id number] Brenden Ellsworth et al. Clin Chem 2014;3111-0832. Current interpretive data was last revised 2022. Testing performed by: [facility], [facility] [facility], [place]., [address] Blood 06/23/2024 12:0 2 PM DOCK GUARD 06/23/2024 2:22 PM DOCK GUARD Elan Hood MD LAB BLOOD ORDERABLES Final Res [facility] Performing Organization Address [facility] Phone Number [facility] [phone] [facility] [employer] [address] * Protime-INR (06/23/2024 12:02 PM DOCK GUARD) Pathologist [facility] PT 11.6 9.7 - 13.0 sec INR 1.07 0.90 - 1.20 [facility] Comment: Interpretive data Oral anticoagulant therapeutic ranges: Venous thromboembolism prophylaxis or treatment: 2.0-3.0 CARDIOLOGY Standard range: 2.0-3.0 High-intensity range: 2.5-3.5 Refer to indication-specific guidelines for appropriate target ranges for prosthetic heart valve replacement. Current interpretive data was last revised on 2019. Blood 06/23/2024 12:0 2 PM DOCK GUARD 06/23/2024 12:16 PM DOCK GUARD Elan Hood MD LAB BLOOD ORDERABLES Final [facility] Performing Organization Address [facility] Phone Number [facility] [phone] [facility] [employer] [address] * Hemoglobin A1c (06/23/2024 12:02 PM DOCK GUARD) Pathologist [facility] [place] Hgb A1C 5.0 4.0 - 5.6 % Estimated Average Glucose 97 mg/dL [facility] Comment: The ADA recommends reporting an estimated Average Glucose (eAG) with all Hemoglobin A1c results using the equation derived from a study of 507 normal and diabetic adults. Minority populations were underrepresented and children were not included. (Diabetes Care 31:0334-3618, 2008). The eAG is not equivalent to a fasting glucose. Blood 06/23/2024 12:0 2 PM DOCK GUARD 06/23/2024 12:16 PM DOCK GUARD us Elan Hood MD LAB BLOOD ORDERABLES Final Res ult [facility] [address] [facility]. Department [place] [address] * (ABNORMAL) Comprehensive metabolic panel (06/23/2024 12:02 PM DOCK GUARD) Sodium 136 135 - 145 mmol/L Potassium, [...] [facility] Blood 06/23/2024 12:0 2 PM DOCK GUARD 06/23/2024 12:16 PM DOCK GUARD Elan Hood MD LAB BLOOD ORDERABLES Final Res ult [facility] [address] Department [place] [address] * SCAN - RADIOLOGY/IMAGING (06/10/2024) Anatomical Region Laterality Modality Other Matt Mathews MD Final Res ult * Albumin Creatinine Ratio, Urine (08/15/2022) Urine Matt Mathews MD LAB URINE ORDERABLES Amanda l Result * POCT lipid panel (07/28/2022 9:31 AM DOCK GUARD) Cholesterol, POC 231 mg/dL HDL, POC 42 mg/dL Triglycerides, POC 112 mg/dL LDL Cholesterol POC 168 mg/dL Chol/HDL Ratio, POC 4.0 Non-HDL Cholesterol, POC 190 mg/dL Cholesterol Total, POC 231 mg/dL Capillary blood 07/28/2022 9 :31 AM DOCK GUARD Result [facility] Anais Chowdary MD POINT OF CARE TEST [...] compared to the equimolar-standardized total PSA (Jass Copemish). Comparison of serial PSA results should be [...] LAB BLOOD ORDERABLES Final Result [facility] [address] [phone] from Last 3 Months or Most Recently Relevant to Health Maintenance Insurance [facility] MEDICARE [facility] MEDICARE Care Teams Sitecore Developer Relationship Specialty Start Date End Date Matt Mathews MD [facility] [place] [address] [place] [address] PCP - General Family Medicine 03/31/22 Dwight Nascimento MD Consulting Physician Internal Medicine 09/20/21
--- OUTSIDE RECORDS SUMMARY | 2024-08-26 09:20 | XMS_ITS | Clinical Summary ---
Author Organization [facility] hossein [facility] Address [address] [place] [address] Care Team Providers Care Algebraist Name Role Phone Matt Mathews MD Primary Care Provider [phone] Allergies Active Allergy Reactions Criticality Noted Date [...] times daily. 60 Tablet 04/22/2023 11:54 AM SALES SUPPORT ADVISOR 3 Active lactulose (ENULOSE) 10 gram/15 mL [...] on file Legal Sex Male 3:08 PM SALES SUPPORT ADVISOR Gender Identity Not on file Sexual Orientation Not on file Last Filed Vital Signs Vital Sign Reading Time Taken Comments Blood Pressure 140/80 04/22/2023 8:53 AM SALES SUPPORT ADVISOR Pulse 81 04/22/2023 8:53 AM SALES SUPPORT ADVISOR Temperature 36.6 C (97.9 F) 04/22/2023 7:35 AM SALES SUPPORT ADVISOR Respiratory Rate 18 04/22/2023 7:35 AM SALES SUPPORT ADVISOR Oxygen Saturation 98% 04/22/2023 7:35 AM SALES SUPPORT ADVISOR Inhaled Oxygen Concentration - - Weight 75.5 [...] 5.2 <5.7 % 04/15/2023 8:53 AM CDT [facility] EST. AVG GLUCOSE, A1C 103 mg/dL 04/15/2023 8:53 AM CDT [facility] [employer] [facility] Blood Venipuncture / Unknown 04/15/2023 5:36 AM CDT 04/15/2023 5:45 AM CDT Narrative [facility] - 04/15/2023 8:53 AM CDT HGB A1C INTERPRETATION NORMAL: <5.7% PRE-DIABETES: 5.7 - 6.4% DIABETES: 6.5% OR GREATER us Mary Ann BORRERO CHEMISTRY ORDERABLES Final Resu lt [facility]# [id number] [address] [place] [id number] from Last 3 Months or Most Recently Relevant to Health Maintenance Insurance [facility] MEDICAID [facility] MEDICAID [facility] [employer] Commercial RX [employer] Commercial Advance Directives For more information, please contact: [phone] * NO CPR (In Event of Cardiopulmonary [...] 5:22 AM 04/15/2023 6:37 AM Care Teams Algebraist Relationship Specialty Start Date End Date Matt Mathews MD [address] [place] [address] PCP - General Family Practice 01/02/23
--- OUTSIDE RECORDS SUMMARY | 2024-08-26 09:20 | XMS_ITS | Clinical Summary ---
Author Organization [facility] [address] Address [address] [place] [address] Care Team Providers Care Professional Services Specialist Name Role Phone Dwight Nascimento MD Unavailable Matt Mathews MD Primary Care Provider [phone] Allergies Active Allergy Reactions Criticality Noted Date [...] 2-3 TIMES DAILY 2 Active blood-glucose meter ([employer] Ultra2 Meter) misc CHECK 2-3 TIMES PER DAY 2 Active cyclobenzaprine (FLEXERIL) 10 mg tablet Take 1 tablet (10 mg total) by mouth 3 (three) times a day as needed for muscle spasms 3 Active empagliflozin (Jardiance) 10 mg tablet Take 1 tablet (10 mg total) by mouth daily 2 Active lancets ([employer] Delica Plus Lancet) 30 gauge misc CHECK [...] 08/18/2022 Assessment & Plan (08/18/2022 1:51 PM CARD BRUSHER): Patient reports decreased edema; low continues to [...] 04/29/2022 Assessment & Plan (04/29/2022 1:45 PM CARD BRUSHER): To hospital for severe pain and diarrhea; [...] 09/22/2021 Assessment & Plan (07/10/2022 12:41 PM CARD BRUSHER): Continues to be present, causing pain and [...] medication Assessment & Plan (07/29/2022 2:02 PM CARD BRUSHER): Patient reports generally improved pain management, though decreased response to 5 mg of oxycodone; discussed with patient metabolism pathway limits use of hydrocodone due to risk of overdose and accumulation of metabolites Will increase oxycodone at next refill Assessment & Plan (06/13/2021 10:19 AM CARD BRUSHER): Patient was advised given concern for an incarcerated umbilical hernia to report to the er now. He is going to [place]. He was asked to contact the office [...] outcome. Assessment & Plan (06/03/2021 6:29 PM CARD BRUSHER): Patient continues to complain of jeovany-umbilical abdominal pain and is requesting continued refills of Tramadol. When asked how many he had left he states he ran out of them a week ago -- He was just given #12 on 05/13 upon discharge from [place]. Today is 12/8 so if he ran [...] 7:11 PM CDT): Still awaiting records from [place] regarding the Cardiology evaluation of the pericardial [...] MEL. Assessment & Plan (06/03/2021 6:10 PM CARD BRUSHER): Positive MEL. Per Rheumatology evaluation there is [...] management Assessment & Plan (06/03/2021 6:10 PM CARD BRUSHER): Chronic wedge compression fracture at T11. Patient [...] hx of HE/jaundice. MRCP 05/2020 at [facility] with cirrhosis/hepatic steatosis, 1.8 cm arterially enhancing [...] locally at [facility] in [place], based on OSH records 1 EGD was [...] paracentesis Assessment & Plan (08/18/2022 1:49 PM CARD BRUSHER): Not well controlled, patient had 5 L removed by paracentesis 1 week ago; is already refilled with ascitic fluid Patient to follow-up with cardiology on will likely need standing order for paracentesis Continue furosemide 80 mg b.i.d., spironolactone 100 mg daily Complicated by worsening peripheral edema Patient to follow-up with hepatology at end of week Assessment & Plan (08/04/2022 10:04 AM CARD BRUSHER): Not well controlled; continues to have significant [...] site Assessment & Plan (07/29/2022 2:01 PM CARD BRUSHER): Not well controlled, worsening; patient has recurrent [...] NAFLD Assessment & Plan (07/10/2022 12:43 PM CARD BRUSHER): Admitted for EGD with banding, required 3 [...] 10:13 AM CDT): Continue per GI at [facility] for his cirrhosis. Stressed importance of following up on a regular basis due his progressive disease. Assessment & Plan (09/15/2021 8:39 PM CDT): Continue per hepatology at [facility] Assessment & Plan (06/03/2021 6:09 PM CARD BRUSHER): Continue her GI at [facility], Dr. Jasso. He has been started on new medication to help decrease the ascites buildup. Encouraged him to follow their directions and keep his appointments. Strongly encouraged complete cessation of alcohol. I reviewed the lab results regarding alcohol use. He still adamant that he has not drank since his 51th birthday. Assessment & Plan (05/14/2021 12:07 PM CARD BRUSHER): - MELD labs today, and repeat autoimmune [...] followup with local GI. Await recommendation from [facility] hepatology Assessment & Plan (12/12/2020 6:56 [...] Patient would like to be referred to [place] to see the hepatology group therefore continuity of care a since they are part of the [facility] system and can share medical records. Will make that referral Assessment & Plan (12/02/2020 10:30 AM CDT): Per GI note, unknown etiology of the cirrhosis/ascites. However, I have placed a call to Dr. Rodriguez, Attending GI at [facility] to discuss his recent labs, most importantly the positive MEL at 1:1280. I left a message on 11/20 and will await return call. I have concern for possible autoimmune hepatitis as the underlying cause. Patient appears to have increased ascites over the past few weeks. Increased pain. Increased orthopnea. Will check abdominal US at [place] (patient to schedule on own as order and phone number provided). If has acute increase in sxs, encouraged to present to [facility] ER for further evaluation so GI/heapatology group can evaluate. He would like to transfer care to [facility]. Tramadol a few times a day is managing pain. Monitor closely Dr. Gordon, utilization engineer at [facility] returned my call on Thursday, November 23. [...] PM CDT): Stressed importance of followup with utilization engineer. He states he has followup with Dr. Medrano at [facility] at the end of October and next week with Dr. Claros. He is having daily pain. Attempted to contact Dr Claros. Multiple messages left with staff and call not returned. Will await recommendations from Dr. Medrano. Discussed referral to [facility] utilization engineer --- patient has a family member in [...] diet Assessment & Plan (07/10/2022 12:44 PM CARD BRUSHER): Not well controlled, has been on insulin [...] 05/22/20212021 Assessment & Plan (05/22/2021 10:54 AM CARD BRUSHER): Obesity is unchanged. Discussed the patient's BMI. The BMI is above average. BMI management plan is completed. BMI Follow-up includes: nutrition counseling, exercise counseling and education provided. BMI 31.0-31.9,adult 05/22/2021 08/29/19 22 Assessment & Plan (05/22/2021 10:54 AM CARD BRUSHER): Obesity is unchanged. Discussed the patient's BMI. [...] Type Department Care Team Description 08/17/2024 Telephone [facility] Radiology, Interventional Radiology [id number] [place] [address] Mary Ann Basurto, RN Appointment 08/08/2024 Telephone [facility] Radiology [address] [facility] [address] Mary Ann Armendariz, COREY 08/05/2024 Results Follow-Up [facility] Gastroenterology [address] [place] [address] Medical [address] [place] [address] Elan Hood MD Alcoholic cirrhosis of liver with ascites (HCC) (Primary Dx) 08/02/2024 10:43 AM CARD BRUSHER - 08/02/2024 11:59 PM CARD BRUSHER Hospital Encounter [facility] Imaging [address] [place] [address] Alcoholic cirrhosis of liver with ascites (HCC); Cirrhosis of liver with ascites, unspecified hepatic cirrhosis type (HCC); Ascites due to alcoholic cirrhosis (HCC); Hepatic encephalopathy (HCC) Discharge Disposition: Discharge to home or self care 08/02/2024 10:42 AM CARD BRUSHER - 08/02/2024 11:59 PM CARD BRUSHER Hospital Encounter [facility] Radiology Echo Lab [address] [place] [address] Alcoholic cirrhosis of liver with ascites (HCC); Cirrhosis of liver with ascites, unspecified hepatic cirrhosis type (HCC); Ascites due to alcoholic cirrhosis (HCC); Hepatic encephalopathy (HCC) Discharge Disposition: Discharge to home or self care 07/01/2024 Telephone [facility] Gastroenterology [address] [facility] [address] [place] [address] [place] [address] Nancy Christensen 06/29/2024 Telephone [facility] Gastroenterology [address] [place] [address] [place] [address] Julissa Molina LPN 06/23/2024 11:55 AM CARD BRUSHER Lab [facility] [address] [place] [address] Alcoholic cirrhosis of liver with ascites (HCC); Type 2 diabetes mellitus without complication, with long-term current use of insulin (HCC) 06/23/2024 9:40 AM CARD BRUSHER Office Visit [facility] Gastroenterology [address] [facility] [address] [place] [address] Elan Hood MD Alcoholic cirrhosis of liver with ascites (HCC) (Primary Dx); Type 2 diabetes mellitus without complication, with long-term current use of insulin (HCC); Alcohol use disorder; Hepatic encephalopathy (HCC) 06/10/2024 Orders Only [facility] Health Information Management [address] [place] [address] Matt Mathews MD from Last 3 Months [...] on file Legal Sex Male 9:05 AM CARD BRUSHER Gender Identity Male 06/09/2023 11:43 AM CARD BRUSHER Sexual Orientation Straight 06/09/2023 11 :43 AM CARD BRUSHER Obstetrics History Last Filed Vital Signs Vital Sign Reading Time Taken Comments Blood Pressure 94/60 06/23/2024 10:30 AM CARD BRUSHER Pulse 80 06/23/2024 10:30 AM CARD BRUSHER Temperature 37 C (98.6 F) 06/23/2024 10:30 AM CARD BRUSHER Respiratory Rate 16 06/23/2024 10:30 AM CARD BRUSHER Oxygen Saturation 94% 06/23/2024 10:30 AM CARD BRUSHER Inhaled Oxygen Concentration - - Weight 68.6 kg (151 lb 3.2 oz) 06/23/2024 10:30 AM CARD BRUSHER Height 165.1 cm (5' 5 ) 06/23/2024 10:30 AM CARD BRUSHER Body Mass Index 25.16 06/23/2024 10:30 AM CARD BRUSHER Plan of Treatment Health Maintenance Due Date [...] 03/12/20322021, 04/02/2020 Medical Devices Implanted Type Area Kosher Inspector Device Identifier Shelf Expiration Date Model / Serial / Lot Rt Shoulder Rotator Cuff Repair [place] Suture Right: Shoulder Procedures Procedure Name Priority Date/Time Associated Diagnosis Comments MRI ABDOMEN LIVER W WO CONTRAST Schedule Routine, Read Routine (OP Routine) 08/02/2024 12:30 PM CARD BRUSHER Alcoholic cirrhosis of liver with ascites (HCC) Cirrhosis of liver with ascites, unspecified hepatic cirrhosis type (HCC) Ascites due to alcoholic cirrhosis (HCC) Hepatic encephalopathy (HCC) TRANSTHORACIC ECHO (TTE) COMPLETE W DOPPLER/CF WO CONTRAST Routine 08/02/2024 11:22 AM CARD BRUSHER Alcoholic cirrhosis of liver with ascites (HCC) Cirrhosis of liver with ascites, unspecified hepatic cirrhosis type (HCC) Ascites due to alcoholic cirrhosis (HCC) Hepatic encephalopathy (HCC) EGD Routine 07/05/2024 1:14 PM CARD BRUSHER EGFR Routine 06/23/2024 12:02 PM CARD BRUSHER Alcoholic cirrhosis of liver with ascites (HCC) DIFFERENTIAL AUTO Routine 06/23/2024 12:02 PM CARD BRUSHER Alcoholic cirrhosis of liver with ascites (HCC) CBC WITH AUTO DIFFERENTIAL Routine 06/23/2024 12:02 PM CARD BRUSHER Alcoholic cirrhosis of liver with ascites (HCC) COMPREHENSIVE METABOLIC PANEL Routine 06/23/2024 12:02 PM CARD BRUSHER Alcoholic cirrhosis of liver with ascites (HCC) PROTIME-INR Routine 06/23/2024 12:02 PM CARD BRUSHER Alcoholic cirrhosis of liver with ascites (HCC) [id number], TUMOR MARKER Routine 06/23/2024 12:02 PM CARD BRUSHER Alcoholic cirrhosis of liver with ascites (HCC) PHOSPHATIDYLETHANOL Routine 06/23/2024 12:02 PM CARD BRUSHER Alcoholic cirrhosis of liver with ascites (HCC) HEMOGLOBIN A1C Routine 06/23/2024 12:02 PM CARD BRUSHER Alcoholic cirrhosis of liver with ascites (HCC) Type 2 diabetes mellitus without complication, with long-term current use of insulin (HCC) SCAN - RADIOLOGY/IMAGING 06/10/2024 ALBUMIN CREATININE RATIO, URINE Routine 08/15/2022 POCT LIPID PANEL Routine 07/28/2022 9:31 AM CARD BRUSHER Lipid screening HM COLONOSCOPY Routine 03/12/2022 PSA SCREEN Routine 10/19/2020 10:46 AM CDT Prostate cancer screening from Last 3 Months or Most Recently Relevant to Health Maintenance Results * MRI Abdomen Liver W WO Contrast (08/02/2024 12:30 PM CARD BRUSHER) Anatomical Region Laterality Modality Body N/A Magnetic Resonan ce 08/02/2024 12:5 8 PM CARD BRUSHER Impressions 08/02/2024 1:03 PM CARD BRUSHER 1. Hepatic cirrhosis with portal hypertension including [...] Lulú Omer M.D. Narrative 08/02/2024 1:03 PM CARD BRUSHER EXAMINATION: MAGNETIC RESONANCE IMAGING OF THE ABDOMEN [...] W DOPPLER/CF WO CONTRAST (08/02/2024 11:22 AM CARD BRUSHER) Anatomical Region Laterality Modality Ultrasound 08/02/2024 10:4 4 AM CARD BRUSHER Narrative 08/02/2024 1:29 PM CARD BRUSHER [facility] [place]iac [place] [address] Transthoracic Echocardiographic Report Patient Name: MATT NICLOE E : 1970 (54y 6m) Gender: M Study Date: 08/02/2024 10:44:37 AM Ht(Inch): 65 Wt(Lb): 151.24 BSA: 1.77 General Engineering Teacher: EVON Location: [facility] Order Provider: ELAN HOOD Heart Rate: 64 BMI: 25.16 BP: 122 / 80 Quality: The study images were of technically good quality. Ref Provider: ELAN HOOD PROCEDURES: Echocardiographic Report: ([id number]) Transthoracic complete echo, 2D, spectral and tissue [...] By: Rasheeda Manzanares MD 08/02/2024 1:28:05 PM CARD BRUSHER Electronically Signed By: Rasheeda Manzanares MD 08/02/2024 1:28:05 PM CARD BRUSHER Procedure Note Rasheeda Manzanares MD - 08/02/2024 [facility] Card[facility] [place] [address] Transthoracic Echocardiographic Report Patient Name: MATT NICOLE E : 1970 (54y 6m) Gender: M Study Date: 08/02/2024 10:44:37 AM Ht(Inch): 65 Wt(Lb): 151.24 BSA: 1.77 General Engineering Teacher: EVON Location: [facility] Order Provider: ELAN HOOD Heart Rate: 64 BMI: 25.16 BP: 122 / 80 Quality: The study images were oftechnically good quality. Ref Provider: ELAN HOOD PROCEDURES: Echocardiographic Report: ([id number]) Transthoracic complete echo, 2D,spectral and tissue Doppler, [...] LA Length 2C 5.82 cm MV Decel Zxun576.71 msec [ 104.00 - 258.00 ] LA [...] By: Rasheeda Manzanares MD 08/02/2024 1:28:05 PM CARD BRUSHER Electronically Signed By: Rasheeda Manzanares MD 08/02/2024 1:28:05 PM CARD BRUSHER us Elan Hood MD CV ECHO PROCEDURES Final Resul t * EGD -[facility] (07/05/2024 1:14 PM CARD BRUSHER) Anatomical Region Laterality Modality Other Historical Provider GI PROCEDURE ORDERABLES F inal Result * Phosphatidylethanol (06/23/2024 12:02 PM CARD BRUSHER) PHOSPHATIDYLETHANOL Negative . [facility] Comment: ADDITIONAL INFORMATION This report is intended for use in clinical monitoring and management of patients. It is not intended for use in employment-related testing. This test was developed and its performance characteristics determined by [facility] in a manner consistent with CLIA requirements. This test has not been cleared or approved by the U.S. Food and Drug Administration. Test Performed by: [facility] - [address] [address] [address] [place]: Smooth Goff Ph.D.; CLIA# [id number] PEth 16:0/18:1 (POPEth)by LC-MS/MS <10 Cutoff: 10 [...] well established Blood 06/23/2024 12:0 2 PM CARD BRUSHER 06/23/2024 12:16 PM CARD BRUSHER Elan Hood MD LAB BLOOD ORDERABLES Final Res ult [facility] [address] [facility]. Department [place] [address] Puri ref Lab * (ABNORMAL) eGFR (06/23/2024 12:02 PM CARD BRUSHER) eGFR 55(L) >=60 mL/min/1. 73 m2 Comment: [...] reviewed 2021. Blood 06/23/2024 12:0 2 PM CARD BRUSHER 06/23/2024 12:16 PM CARD BRUSHER us Elan Hood MD LAB BLOOD ORDERABLES Final Res ult [facility] [address] [facility]. Department [place] [address] * Differential, auto (06/23/2024 12:02 PM CARD BRUSHER) Neutrophil abs 4.3 1.5 - 6.5 K/cumm Imm gran abs 0.0 0.0 - 0.1 K/cumm [facility] Lymphocyte abs 0.8 0.8 - 3.3 K/cumm [facility] Monocyte abs 0.8 0.2 - 0.8 K/cumm [facility] Eosinophil abs 0.1 0.0 - 0.5 K/cumm [facility] Basophil abs 0.0 0.0 - 0.1 K/cumm [facility] Neutrophil pct 71.3 % ABRAN [...] on 2017. Basophil pct 0.5 % [facility] Comment: Interpretive Data Percent cell count reference ranges are not reported, since discordance with absolute values may lead to misinterpretation of CBC data. Current Interpretive Data was last revised on 2017. Blood 06/23/2024 12:0 2 PM CARD BRUSHER 06/23/2024 12:16 PM CARD BRUSHER us Elan Hood MD LAB BLOOD ORDERABLES Final Res ult [facility] [address] [facility]. Department [place] [address] * (ABNORMAL) CBC with auto differential (06/23/2024 12:02 PM CARD BRUSHER) WBC 6.1 3.8 - 9.9 K/cumm Hgb [...] [facility] Blood 06/23/2024 12:0 2 PM CARD BRUSHER 06/23/2024 12:16 PM CARD BRUSHER us Elan Hood MD LAB BLOOD ORDERABLES Final Res ult [facility] [address] [facility]. Department [place] [address] * Vbpga-6-Emaugwynzfj, Tumor Marker (06/23/2024 12:02 PM CARD BRUSHER) alpha Fetoprotein <1.8 <=8.3 ng/mL Comment: Interpretive [...] 2018;[id number] Brenden Ellsworth et al. Clin Chem 2014;6173-4452. Current interpretive data was last revised 2022. Testing performed by: [facility], [address] [place] [address]., [address] Blood 06/23/2024 12:0 2 PM CARD BRUSHER 06/23/2024 2:22 PM CARD BRUSHER Elan Hood MD LAB BLOOD ORDERABLES Final Res ult Performing Organization Address [facility] de Phone Number [facility] [id number] [address] [address] * Protime-INR (06/23/2024 12:02 PM CARD BRUSHER) PT 11.6 9.7 - 13.0 sec INR 1.07 0.90 - 1.20 [facility]AN [facility] Comment: Interpretive data Oral anticoagulant therapeutic ranges: Venous thromboembolism prophylaxis or treatment: 2.0-3.0 CARDIOLOGY Standard range: 2.0-3.0 High-intensity range: 2.5-3.5 Refer to indication-specific guidelines for appropriate target ranges for prosthetic heart valve replacement. Current interpretive data was last revised on 2019. Blood 06/23/2024 12:0 2 PM CARD BRUSHER 06/23/2024 12:16 PM CARD BRUSHER Elan Hood MD LAB BLOOD ORDERABLES Final Res ult Performing Organization Address [facility] Co de Phone Number [facility] [address] [address] [place], [place] [id number] * Hemoglobin A1c (06/23/2024 12:02 PM CARD BRUSHER) Hgb A1C 5.0 4.0 - 5.6 % Estimated Average Glucose 97 mg/dL [facility] Comment: The ADA recommends reporting an estimated Average Glucose (eAG) with all Hemoglobin A1c results using the equation derived from a study of 507 normal and diabetic adults. Minority populations were underrepresented and children were not included. (Diabetes Care 31:6924-0205, 2008). The eAG is not equivalent to a fasting glucose. Blood 06/23/2024 12:0 2 PM CARD BRUSHER 06/23/2024 12:16 PM CARD BRUSHER us Elan Hood MD LAB BLOOD ORDERABLES Final Res ult [facility] [address] [facility]. Department [place] [address] * (ABNORMAL) Comprehensive metabolic panel (06/23/2024 12:02 PM CARD BRUSHER) Sodium 136 135 - 145 mmol/L Potassium, [...] [facility] Blood 06/23/2024 12:0 2 PM CARD BRUSHER 06/23/2024 12:16 PM CARD BRUSHER Elan oHod MD LAB BLOOD ORDERABLES Final Res ult [facility] [address] [facility]. Department [place] [address] * SCAN - RADIOLOGY/IMAGING (06/10/2024) Anatomical Region Laterality Modality Other Matt Mathews MD Final Res ult * Albumin Creatinine Ratio, Urine (08/15/2022) Urine Matt Mathews MD LAB URINE ORDERABLES Amanda l Result * POCT lipid panel (07/28/2022 9:31 AM CARD BRUSHER) Cholesterol, POC 231 mg/dL HDL, POC 42 mg/dL Triglycerides, POC 112 mg/dL LDL Cholesterol POC 168 mg/dL Chol/HDL Ratio, POC 4.0 Non-HDL Cholesterol, POC 190 mg/dL Cholesterol Total, POC 231 mg/dL Capillary blood 07/28/2022 9 :31 AM CARD BRUSHER Anais Chowdary MD POINT OF CARE TEST [...] compared to the equimolar-standardized total PSA (Jass [place]). Comparison of serial PSA results should be [...] Opal BORRERO LAB BLOOD ORDERABLES Final Result [facility] [address] [place] [address] from Last 3 Months or Most Recently Relevant to Health Maintenance Insurance [facility] MEDICARE [facility] MEDICARE Care Teams Professional Services Specialist Relationship Specialty Start Date End Date Matt Mathews MD [address] [place] [address] PCP - General Family Medicine 03/31/22 Dwight Nascimento MD Consulting Physician Internal Medicine 09/20/21
--- OUTSIDE RECORDS SUMMARY | 2024-08-26 09:20 | XMS_ITS | CONTINUITY OF CARE DOCUMENT ---
Author Name rell, rell Address Unknown Organization [facility] Address [address] [place] [address] Phone [phone] Care Team Providers Care Orthotic And Prosthetic Technician Name Role Phone Goyo KONG, Sunny Unavailable [phone] Sunny Nance MD Unavailable [phone] PROBLEMS Condition Status Date Provider Notes [...] In-person encounter Office Visit Sunny Nance MD [place] [facility] Tobacco abuserenal stonePREDIABETES;[facility] maintenance examinationVitamin D deficiencyHyperlipidemiaOverweightFAMILY HISTORY OF HEART [...] nda Her blood pressure, systolic 122 mm[Hg] [facility] oxygen saturation, oximetry 98 % [facility] respiratory rate E&M 16 /min [facility] pulse rate 90 /min [facility] weight E&M 171.8 [lb_av] [facility] height E&M 65 [in_i] [facility] ALLERGIES No Known Drug Allergies HISTORY [...] E&M revi ewed - no changes required Sunyn Nance MD smoking/tobacco cess ation, patient education and counseling yes Sunny Nance MD number of grandchildren Sunny Nance MD [facility] smoking status Current every day smoker W wilmer Her FUNCTIONAL STATUS Date Observation Value Provider periodic limb movement index absent (0) Jeff Herbert MD FAMILY HISTORY Family Member Condition Mother Family History of Co ronary Artery Disease: INSURANCE PROVIDERS Payer name Policy type / Coverage type [place] [employer] party ID [employer] MEDICAID (2) Medicaid [id number] ADVANCE DIRECTIVES Name Date DISCUSSED - NO DECISION MADE TREATMENT PLAN Date Name Performer Cardiology Sunny Nance MD Cardiology Sunny Nance MD Cardiology Sunny Nance MD Cardiology Sunny Nance MD Cardiology:nml uacr Sunny duque MD Cardiology:nml psa, and tsh and mi clinical microbiologist alvbuymin Sunny Nance MD Date Name STR - Routine Complete Echo CT, Coronary Calcium Score DLCO - 52596 FRC - 88796 FVC - 48691 HISTORY OF PROCEDURES Procedure Date Procedure Name Provider Procedure Notes S tatus FVC / MVV with bronchodilator - 86330 Sunny Nance MD completed FRC - 38712 Sunny Nance MD complet ed SpO2 - 28241 Sunny Nance MD comple bebeto DLCO - 20663 Sunny Nance MD comple bebeto Stress EKG Saadrianneus Erik catalan MD completed EKG Sunny Nance MD complete d SNOMED-CT: [id number] Current Medications Documented Sunny Nance MD completed
--- OUTSIDE RECORDS SUMMARY | 2024-08-26 09:20 | XMS_ITS | Clinical Summary ---
Author Organization [facility] Address [address] [place] [address] Care Team Providers Care Rheologist Name Role Phone Fidel Camejo MD Primary Care Provider [phone] Source Comments [facility],non-owned Affiliates and Associated Physician Practices is amultiple site organization consisting of ambulatory clinics and hospital sitesin [place], [place], [place] and [place]. This disclosure is being madepursuant to the Care Everywhere program and may not contain all information available regarding this patient. Last updated 18.[facility] Allergies No known active allergies Medications * [...] 36.6 C (97.9 F) 07/12/2020 10:23 AM VINER OPERATOR Respiratory Rate 18 11/01/2020 11:37 AM CDT Oxygen Saturation 100% 11/01/2020 11:37 AM CDT Inhaled Oxygen Concentration - - Weight 81.2 kg (179 lb) 11/01/2020 11:37 AM CDT Height 165.1 cm (5' 5 ) 07/12/2020 10:23 AM VINER OPERATOR Body Mass Index 29.79 07/12/2020 10:23 AM VINER OPERATOR Plan of Treatment Health Maintenance Due [...] complete this topic MENINGOCOCCAL (Group B) VACCINE SHARED DECISION-MAKING Aged Out No longer eligible based on patient's age to complete this topic MENINGOCOCCAL GROUPS A/C/Y/W VACCINE Aged Out No longer eligible based on patient's age to complete this topic Goals Goal Patient Goal Type Associated Problems Recent Progress Patient-Stated? Author Medication Management General On track( 021 10:36 AM VINER OPERATOR) No Jose Juan Dumont, RN Note: Expected end date: Interventions: Take all medications as prescribed Let your doctor know right away about any changes in your medications Make sure to request a refill of your medication at least one week prior to your last dose Procedures Procedure Name Priority Date/Time Associated Diagnosis Comments COMPREHENSIVE METABOLIC PANEL Routine 07/12/2020 12:54 PM VINER OPERATOR Abdominal pain, unspecified abdominal location Chronic diarrhea HEPATITIS C ANTIBODY Routine 04/04/2020 1:28 PM CDT RUQ pain Abnormal finding on imaging of liver LIPID PROFILE Routine 11/09/2012 12:10 AM CDT from Last 3 Months or Most Recently Relevant to Health Maintenance Results * (ABNORMAL) COMPREHENSIVE METABOLIC PANEL (07/12/2020 12:54 PM VINER OPERATOR) BUN 10 7 - 26 mg/dL 07/12/2020 2:12 PM [facility] Creatinine 0.6 0.6 - 1.2 mg/dL 07/12/2020 2:12 PM [facility] Sodium 138 136 - 145 mmol/L 07/12/2020 2:12 PM [facility] Potassium 4.2 3.5 - 4.5 mmol/L 07/12/2020 2:12 PM [facility] Chloride 103 98 - 107 mmol/L 07/12/2020 2:12 PM [facility] CO2 26 22 - 29 mmol/L 07/12/2020 2:12 PM [facility] Glucose 133(H) 70 - 115 mg/dL 07/12/2020 2:12 PM [facility] Calcium 9.1 8.4 - 10.2 mg/dL 07/12/2020 2:12 PM [facility] Protein Total 6.9 6.0 - 8.3 g/dL 07/12/2020 2:12 PM [facility] Albumin 3.8 3.4 - 5.0 g/dL 07/12/2020 2:12 PM [facility] Bilirubin Total 1.0 0.2 - 1.2 mg/dL 07/12/2020 2:12 PM [facility] Alkaline Phosphatase 178(H) 40 - 150 Units/L 07/12/2020 2:12 PM [facility] ALT 18 0 - 55 Units/L 07/12/2020 2:12 PM [facility] AST 46(H) 5 - 34 Units/L 07/12/2020 2:12 PM [facility] Anion Gap 13 8 - 18 07/12/2020 2:12 PM VINER OPERATOR [facility] BUN/Creatinine Ratio 17 7 - 23 07/12/2020 2:12 PM [facility] Osmolality Calculated 287 270 - 300 mOsm/kg 07/12/2020 2:12 PM [facility] Albumin/Globulin Ratio 1.2 1.1 - 2.3 07/12/2020 2:12 PM [facility] eGFR >60 >60 mL/min/1.7 3 m2 07/12/2020 2:12 PM [facility] Blood BLOOD SPECIMEN / Unknown Lab Venipuncture / Unknown 07/12/2020 12:54 PM VINER OPERATOR 07/12/2020 1:20 PM VINER OPERATOR Billie Medrano MD LAB - CHEMISTRY CHERIE CABRALES Performing Organization Address City/[facility]/ZIP Co de Phone Number [address] [address], [place] [phone] * HEPATITIS C ANTIBODY (04/04/2020 1:28 PM CDT) Hepatitis C Antibody Non-react cathi Non-reac tive 04/04/2020 3:27 PM CDT [facility] Comment:Hepatitis C Antibody screen indicates no [...] Medrano MD LAB - CHEMISTRY [facility]ERIE CABRALES [address] [address], [place] [phone] * (ABNORMAL) LIPID PROFILE (11/09/2012 12:10 AM CDT) Cholesterol Total 199 <200 mg/dL [facility] HDL 56 > OR = 40 mg/dL [facility] Comment: ATP III classification of HDL cholesterol: <40 mg/dL Low; considered a major risk factor >60 mg/dL High; considered a negative risk factor Triglycerides 339(H) <150 mg/dL [facility] Comment: ATP III classification of Triglycerides: < 150 mg/dL Normal triglycerides 150-199 mg/dL Borderline-high triglycerides 200-400 mg/dL High triglycerides > 500 mg/dL Very high triglycerides LDL Calculated 75 0 - 100 mg/dL [facility] Comment: ATP III classification of LDL cholesterol: <100 mg/dL Optimal 100-129 Near optimal/above optimal 130-159 Borderline high 160-189 High >190 Very high 11/09/2012 12:1 0 AM CDT 11/09/2012 12:31 AM CDT Narrative [facility] - 11/09/2012 12:19 PM CDT IS PATIENT ON HEPARIN? (Y OR N) N Paulo Nuñez MD LAB - CHEMISTRY [facility]ERIE CABRALES [facility] Organization Address City/State/[facility] Co de Phone Number [address] [phone] from Last 3 Months or Most Recently Relevant to Health Maintenance Advance Directives * Full Code (Latest Code Status on File) Date Activated Date Inactivated Comments 11/16/2018 3:08 AM 11/17/2018 7:07 PM Care Teams Rheologist Relationship Specialty Start Date End Date Fidel Camejo MD [address] [place] [phone] PCP - General Family Medicine 04/10/24
--- OUTSIDE RECORDS SUMMARY | 2024-08-26 09:21 | XMS_ITS | Referral Summary ---
Author Organization [facility] Address [address] [address] Care Team Providers Care Quarter Doper Name Role Phone Fidel Camejo MD Primary Care Provider [phone] Source Comments [facility],non-owned Affiliates and Associated Physician Practices is amultiple site organization consisting of ambulatory clinics and hospital sitesin [place], [place], [place] and [place]. This disclosure is being madepursuant to the Care Everywhere program and may not contain all information available regarding this patient. Last updated 18.[facility] Allergies No known active allergies Medications * [...] 36.6 C (97.9 F) 07/12/2020 10:23 AM LENS GRINDER APPRENTICE Respiratory Rate 18 11/01/2020 11:37 AM CDT Oxygen Saturation 100% 11/01/2020 11:37 AM CDT Inhaled Oxygen Concentration - - Weight 81.2 kg (179 lb) 11/01/2020 11:37 AM CDT Height 165.1 cm (5' 5 ) 07/12/2020 10:23 AM LENS GRINDER APPRENTICE Body Mass Index 29.79 07/12/2020 10:23 AM LENS GRINDER APPRENTICE Plan of Treatment Not on file Goals Goal Patient Goal Type Associated Problems Recent Progress Patient-Stated? Author Medication Management General On track( 021 10:36 AM LENS GRINDER APPRENTICE) Jose Juan Prince RN Note: Expected end date: Interventions: Take all medications as prescribed Let your doctor know right away about any changes in your medications Make sure to request a refill of your medication at least one week prior to your last dose Procedures Procedure Name Priority Date/Time Associated Diagnosis Comments COMPREHENSIVE METABOLIC PANEL Routine 07/12/2020 12:54 PM LENS GRINDER APPRENTICE Abdominal pain, unspecified abdominal location Chronic diarrhea HEPATITIS C ANTIBODY Routine 04/04/2020 1:28 PM CDT RUQ pain Abnormal finding on imaging of liver LIPID PROFILE Routine 11/09/2012 12:10 AM CDT from Last 3 Months or Most Recently Relevant to Health Maintenance Results * (ABNORMAL) COMPREHENSIVE METABOLIC PANEL (07/12/2020 12:54 PM LENS GRINDER APPRENTICE) BUN 10 7 - 26 mg/dL 07/12/2020 2:12 PM [facility] Creatinine 0.6 0.6 - 1.2 mg/dL 07/12/2020 2:12 PM [facility] Sodium 138 136 - 145 mmol/L 07/12/2020 2:12 PM [facility] Potassium 4.2 3.5 - 4.5 mmol/L 07/12/2020 2:12 PM [facility] Chloride 103 98 - 107 mmol/L 07/12/2020 2:12 PM [facility] CO2 26 22 - 29 mmol/L 07/12/2020 2:12 PM [facility] Glucose 133(H) 70 - 115 mg/dL 07/12/2020 2:12 PM [facility] Calcium 9.1 8.4 - 10.2 mg/dL 07/12/2020 2:12 PM [facility] Protein Total 6.9 6.0 - 8.3 g/dL 07/12/2020 2:12 PM [facility] Albumin 3.8 3.4 - 5.0 g/dL 07/12/2020 2:12 PM [facility] Bilirubin Total 1.0 0.2 - 1.2 mg/dL 07/12/2020 2:12 PM [facility] Alkaline Phosphatase 178(H) 40 - 150 Units/L 07/12/2020 2:12 PM [facility] ALT 18 0 - 55 Units/L 07/12/2020 2:12 PM [facility] AST 46(H) 5 - 34 Units/L 07/12/2020 2:12 PM [facility] Anion Gap 13 8 - 18 07/12/2020 2:12 PM [facility] BUN/Creatinine Ratio 17 7 - 23 07/12/2020 2:12 PM [facility] Osmolality Calculated 287 270 - 300 mOsm/kg 07/12/2020 2:12 PM [facility] Albumin/Globulin Ratio 1.2 1.1 - 2.3 07/12/2020 2:12 PM [facility] eGFR >60 >60 mL/min/1.7 3 m2 07/12/2020 2:12 PM [facility] Blood BLOOD SPECIMEN / Unknown Lab Venipuncture / Unknown 07/12/2020 12:54 PM LENS GRINDER APPRENTICE 07/12/2020 1:20 PM [facility] Billie Medrano MD LAB - CHEMISTRY CHERIE CABRALES [facility] Organization Address City/State/ZIP Co de Phone Number [facility] [address] [place] [address], [facility] [phone] * HEPATITIS C ANTIBODY (04/04/2020 1:28 PM CDT) Hepatitis C Antibody Non-react cathi Non-reac tive 04/04/2020 3:27 PM CDT [facility] Comment:Hepatitis C Antibody screen indicates [...] PM CDT 04/04/2020 2:36 PM CDT Billie Medraon MD LAB - CHEMISTRY CHERIE CABRALES [facility] [address] [place] [address], [facility] [phone] * (ABNORMAL) LIPID PROFILE (11/09/2012 12:10 AM CDT) Cholesterol Total 199 <200 mg/dL [facility] HDL 56 > OR = 40 mg/dL [facility] Comment: ATP III classification of HDL cholesterol: <40 mg/dL Low; considered a major risk factor >60 mg/dL High; considered a negative risk factor Triglycerides 339(H) <150 mg/dL [facility] Comment: ATP III classification of Triglycerides: < 150 mg/dL Normal triglycerides 150-199 mg/dL Borderline-high triglycerides 200-400 mg/dL High triglycerides > 500 mg/dL Very high triglycerides LDL Calculated 75 0 - 100 mg/dL [facility] Comment: ATP III classification of LDL cholesterol: <100 mg/dL Optimal 100-129 Near optimal/above optimal 130-159 Borderline high 160-189 High >190 Very high 11/09/2012 12:1 0 AM CDT 11/09/2012 12:[address] [facility] - 11/09/2012 12:19 PM CDT IS PATIENT ON HEPARIN? (Y OR N) N Paulo Nuñez MD LAB - CHEMISTRY CHERIE CABRALES Performing Organization Address City/[facility]/ZIP Co de Phone Number [facility] [address] [place], [place] [address] [phone] from Last 3 Months or Most Recently Relevant to Health Maintenance Advance Directives * Full Code (Latest Code Status on File) Date Activated Date Inactivated Comments 11/16/2018 3:08 AM 11/17/2018 7:07 PM Care Teams Quarter Doper Relationship Specialty Start Date End Date Fidel Camejo MD [address] [place] [phone] PCP - General Family Medicine 04/10/24
--- OUTSIDE RECORDS SUMMARY | 2024-08-26 09:21 | XMS_ITS | Patient Health Summary ---
Author Organization [facility] Address [address] [address] Care Team Providers Care Corporate Strategy Associate Name Role Phone Fidel Camejo MD Primary Care Provider Note from [facility],non-owned Affiliates and Associated Physician Practices is amultiple site organization consisting of ambulatory clinics and hospital sitesin [place], [place], [place] and [place]. This disclosure is being madepursuant to the Care Everywhere program and may not contain all information available regarding this patient. Last updated 18.[facility] Allergies No known active allergies Medications [...] 36.6 C (97.9 F) 07/12/2020 10:23 AM [employer] Respiratory Rate 18 11/01/2020 11:37 AM CDT Oxygen Saturation 100% 11/01/2020 11:37 AM CDT Inhaled Oxygen Concentration - - Weight 81.2 kg (179 lb) 11/01/2020 11:37 AM CDT Height 165.1 cm (5' 5 ) 07/12/2020 10:23 AM [employer] Body Mass Index 29.79 07/12/2020 10:23 AM [employer] Procedures * PT-INR SLH(Performed 07/12/2020) Performed for [...] Abnormal finding on imaging of liver * [id number]-[id number] BLOOD PHENOTYPING PANEL(Performed 04/04/2020) Performed for RUQ [...] Results * PT-INR SLH (07/12/2020 12:54 PM [employer]) Only the most recent of3 resultswithin the time period is included. PT 13.5 12.1 - 14.8 Seconds 07/12/2020 1:[address] [employer] [facility] INR 1.1 See Comment 07/12/2020 1:[address] [employer] [facility] Comment:The suggested therap eutic range for standard coumadin (warfarin) therapy is an INR of 2.0-3.0. For high-risk patients (Mechanical Mitral Valve Prosthesis, etc.), the suggested prophylactic therapeutic range is an INR of 2.5-3.5. Blood BLOOD SPECIMEN / Unknown Lab Venipuncture / Unknown 07/12/2020 12:54 PM [employer] 07/12/2020 1:24 PM [employer] Billie Medrano MD LAB - COAGULATION OR DERABLES [facility] [address] [place] [address], [facility] [phone] * CELIAC DISEASE PROFILE W RFLX (07/12/2020 12:54 PM [employer]) Endomysial Antibody IgA Negative Negative 07/13/2020 6:07 PM [employer] [facility] ([facility]) TTG Antibody IgA <2 0 - 3 U/mL 07/13/19 21 6:07 PM [facility] ([facility]) Comment: Negative 0 - 3 Weak Positive 4 - 10 Positive >10 Tissue Transglutaminase (tTG) has been identified as the endomysial antigen. Studies have demonstr- ated that endomysial IgA antibodies have over 99% specificity for gluten sensitive enteropathy. IgA Quantitative 371 90 - 386 mg/dL 07/13/2020 6:07 PM [facility] ([facility]) Blood BLOOD SPECIMEN / Unknown Lab Venipuncture / Unknown 07/12/2020 12:54 PM [employer] 07/12/2020 1:39 PM [employer] Narrative [facility] ([facility]) - 07/13/2020 6:07 PM [employer] Performed at: [facility] [address] [id number] Solar System Designer: Lucho Tyler PhD, Phone: [phone] Billie Medrano MD LAB - CHEMISTRY CHERIE CABRALES [facility] ([facility]) [address] [place] [address], [facility] * (ABNORMAL) CBC WITH DIFFERENTIAL (07/12/2020 12:54 PM [employer]) Only the most recent of5 resultswithin the time period is included. WBC 4.1 3.5 - 10.5 10 3/uL 07/12/2020 1:35 PM [facility] RBC 5.06 4.30 - 5.70 10 6/uL 07/12/2020 1:35 PM [facility] Hemoglobin 15.8 13.5 - 17.5 g/dL 07/12/2020 1:35 PM [facility] Hematocrit 48.1 39.0 - 50.0 % 07/12/2020 1:35 PM [facility] MCV 95.1 81.0 - 97.0 fL 07/12/2020 1:35 PM [facility] MCH 31.2 28.0 - 34.0 pg 07/12/2020 1:35 PM [facility] MCHC 32.8 32.0 - 36.0 g/dL 07/12/2020 1:35 PM [facility] Platelet Count 105(L) 150 - 400 10 3/uL 07/12/2020 1:35 PM [facility] RDW-SD 46.6 36.0 - 50.0 fL 07/12/2020 1:35 PM [facility] RDW-CV 13.2 11.2 - 14.8 % 07/12/2020 1:35 PM [facility] MPV 10.3 9.3 - 12.8 fL 07/12/2020 1:35 PM [facility] nRBC Absolute 0.00 0 10 3/uL 07/12/2020 1:35 PM [facility] nRBC Auto 0.0 0 /100 WBC 07/12/2020 1:35 PM [facility] Neutrophils % 63.0 35.0 - 70.0 % 07/12/2020 1:35 PM [facility] Lymphocytes % 25.4 19.7 - 55.1 % 07/12/2020 1:35 PM [facility] Monocytes % 9.6 3.0 - 15.0 % 07/12/2020 1:35 PM [facility] Eosinophils % 1.0 0.0 - 6.0 % 07/12/2020 1:35 PM [facility] Basophil % 0.5 0.0 - 1.5 % 07/12/2020 1:35 PM [facility] Neutrophils Absolute 2.6 1.6 - 7.0 10 3/uL 07/12/2020 1:35 PM [facility] Lymphocyte Absolute 1.0 0.8 - 2.9 10 3/uL 07/12/2020 1:35 PM [facility] Monocytes Absolute 0.39 0.14 - 0.66 10 3/uL 07/12/2020 1:35 PM [facility] Eosinophils Absolute 0.04 0.00 - 0.45 10 3/uL 07/12/2020 1:35 PM [facility] Basophils Absolute 0.02 0.00 - 0.06 10 3/uL 07/12/2020 1:35 PM [facility] Immature Granulocytes % 0.5 0.0 - 1.0 % 07/12/2020 1:35 PM [facility] Blood BLOOD SPECIMEN / Unknown Lab Venipuncture / Unknown 07/12/2020 12:54 PM [employer] 07/12/2020 1:20 PM [employer] Billie Medrano MD LAB - HEMATOLOGY ORD ERABLES Performing Organization Address City/State/[facility] Co de Phone Number [facility] [address] [place] [address], [facility] [phone] * (ABNORMAL) COMPREHENSIVE METABOLIC PANEL (07/12/2020 12:54 PM [employer]) Only the most recent of3 resultswithin the time period is included. BUN 10 7 - 26 mg/dL 07/12/2020 2:12 PM [facility] Creatinine 0.6 0.6 - 1.2 mg/dL 07/12/2020 2:12 PM [facility] Sodium 138 136 - 145 mmol/L 07/12/2020 2:12 PM [facility] Potassium 4.2 3.5 - 4.5 mmol/L 07/12/2020 2:12 PM [facility] Chloride 103 98 - 107 mmol/L 07/12/2020 2:12 PM [facility] CO2 26 22 - 29 mmol/L 07/12/2020 2:12 PM [facility] Glucose 133(H) 70 - 115 mg/dL 07/12/2020 2:12 PM [facility] Calcium 9.1 8.4 - 10.2 mg/dL 07/12/2020 2:12 PM [facility] Protein Total 6.9 6.0 - 8.3 g/dL 07/12/2020 2:12 PM [facility] Albumin 3.8 3.4 - 5.0 g/dL 07/12/2020 2:12 PM [facility] Bilirubin Total 1.0 0.2 - 1.2 mg/dL 07/12/2020 2:12 PM [facility] Alkaline Phosphatase 178(H) 40 - 150 Units/L 07/12/2020 2:12 PM [facility] ALT 18 0 - 55 Units/L 07/12/2020 2:12 PM [facility] AST 46(H) 5 - 34 Units/L 07/12/2020 2:12 PM [facility] Anion Gap 13 8 - 18 07/12/2020 2:12 PM [facility] BUN/Creatinine Ratio 17 7 - 23 07/12/2020 2:12 PM [facility] Osmolality Calculated 287 270 - 300 mOsm/kg 07/12/2020 2:12 PM [facility] Albumin/Globulin Ratio 1.2 1.1 - 2.3 07/12/2020 2:12 PM [facility] eGFR >60 >60 mL/min/1.7 3 m2 07/12/2020 2:12 PM [facility] Blood BLOOD SPECIMEN / Unknown Lab Venipuncture / Unknown 07/12/2020 12:54 PM [employer] 07/12/2020 1:20 PM [facility] Billie Medrano MD LAB - CHEMISTRY ORDRay CABRALES [facility] [address] [place] [address], [place] [phone] * TSH (07/12/2020 12:54 PM [employer]) TSH 1.171 0.350 - 4.940 uIU/mL 07/12/2020 2:08 PM [employer] [facility] Blood BLOOD SPECIMEN / Unknown Lab Venipuncture / Unknown 07/12/2020 12:54 PM [employer] 07/12/2020 1:20 PM [employer] Billie Medrano MD LAB - CHEMISTRY CHERIE CABRALES Performing Organization Address City/[facility]/ZIP Co de Phone Number [address] [address], [place] [phone] * MRI ABDOMEN W MRCP WWO CONT W3D (06/02/2020 11:31 AM [employer]) Anatomical Region Laterality Modality Abdomen Magnetic Resonan ce 06/04/2020 7:14 AM [employer] Impressions 06/04/2020 10:34 AM [employer] IMPRESSION: 1.Cirrhosis and mild hepatic steatosis. 2. 1.8 cm arterially enhancing observation without washout in segment 5 (LR-3). Report drafted by Toby Alexander M.D. (resident) I, Dr. AV HOUSE M.D. have personally reviewed and interpreted this examination/study. This report was electronically signed by AV HOUSE M.D. on 06/04/2020 10:34 AM . Narrative 06/04/2020 10:34 AM [employer] EXAMINATION: 1. Magnetic resonance imaging (MRI) of [...] CREATININE - POCT INTERFACED (06/02/2020 10:43 AM [employer]) [facility] Creatinine POCT 0.85 0.30 - 1.30 mg/dL 06/02/2020 2:[address] [employer] [facility] eGFR >60 >60 mL/min/1.7 3 m2 06/02/2020 2:[address] [employer] [facility] Blood BLOOD SPECIMEN / Unknown 06/02/2020 10:43 AM [employer] 06/02/2020 2:38 PM [employer] Billie Medrano MD LAB - POINT OF CARE ORDERABLES Performing Organization Address City/State/[facility] Co de Phone Number [facility] [address] [address], [facility] [phone] * PHOSPHATIDYLETHANOL (PETH) (04/04/2020 1:28 PM CDT) [facility] PEth 16:0/18.1 (POPEth) 224 ng/mL 04/07/2020 10:54 AM CDT [employer] ([facility]) Comment: INTERPRETIVE [...] Research). Test developed and characteristics determined by [employer]. See Compliance Statement B: [employer] PEth 16:0/18.2 (PLPEth) 203 ng/mL 04/07/2020 10:54 AM CDT [employer] ([facility]) Comment: Performed By: [employer] [address] [place] [address] Estimator And Drafter Supervisor: Jocelynn Salomon MD Blood BLOOD SPECIMEN / Unknown Lab Venipuncture / Unknown 04/04/2020 1:28 PM CDT 04/04/2020 1:59 PM CDT Billie Medrano MD LAB - CHEMISTRY CHEREI CABRALES [employer] ([facility]) [address] [place] [address], [facility] * SMOOTH MUSCLE ANTIBODY W REFLEX TITER (04/04/2020 1:28 PM CDT) F-Actin Antibody IgG 9 0 - 19 Units 04/06/2020 7:27 PM CDT [facility] [employer] ([facility]) Comment: If [...] suspicion for AIH is strong. Performed By: [employer] [address] [place] [address] Estimator And Drafter Supervisor: Jocelynn Salomon MD Blood BLOOD SPECIMEN / Unknown Lab Venipuncture / Unknown 04/04/2020 1:28 PM CDT 04/04/2020 2:36 PM CDT Billie Medrano MD LAB - SEROLOGY ORDER EILOT [employer] [facility]) [address] * MITOCHONDRIAL ANTIBODY SCREEN (04/04/2020 1:28 PM CDT) Mitochondrial M2 Antibody 6.7 0.0 - 24.9 Units 04/06/2020 7:28 PM CDT [facility] [employer] ([facility]) Comment: REFERENCE [...] does not rule out PBC. Performed By: [employer] [address] [place] [address] Estimator And Drafter Supervisor: Jocelynn Salomon MD Blood BLOOD SPECIMEN / Unknown Lab Venipuncture / Unknown 04/04/2020 1:28 PM CDT 04/04/2020 2:37 PM CDT Billie Medrano MD LAB - CHEMISTRY CHERIE CABRALSE Performing Organization Address [facility] de Phone Number [facility]) [address] [place] [address] * XORNB-9-EPRNHJWCLWL BLOOD PHENOTYPING PANEL (04/04/2020 1:28 PM CDT) Nwwqk-3-Gzlfmleggu n Phenotype M1M1 04/07/2020 1:43 PM CDT [employer] ([facility]) Comment: The patient appears to have a normal phenotype. All M alleles (including subtypes M1, M2, and M3) produce normal serum concentrations of jirlb-9-jjhtoruu inhibitor and are not associated with clinical disease. Caution in interpretation is advised if the patient has been transfused within the previous 21 days. Performed By: [employer] [address] [place] [address] Estimator And Drafter Supervisor: Jocelynn Salomon MD Ucgvt-2-Unbgrbwwnr n 175 90 - 200 mg/dL 04/07/2020 1:43 PM CDT [employer] ([facility]) Comment:To convert to umol/L , multiply mg/dL by 0.185 Blood BLOOD SPECIMEN / Unknown Lab Venipuncture / Unknown 04/04/2020 1:28 PM CDT 04/04/2020 2:36 PM CDT Billie Medrano MD LAB - CHEMISTRY CHERIE CABRALES Performing Organization Address [facility] Co de Phone Number [employer] ([facility]) [address] * HEMOCHROMATOSIS MUTATION PANEL (04/04/2020 1:28 PM CDT) HFE C282Y Mutation Negative 2019 3:56 PM CDT [facility] ([facility]) HFE Specimen Source Whole Blood 04/09/2020 3:56 PM CDT [facility] ([facility]) HFE H63D Mutation Negative 020 3:56 PM CDT [facility] ([facility]) HFE S65C Mutation Negative 3:56 PM CDT [facility] ([facility]) Interpretation HFE Mutation See Note 04/09/2020 3:56 PM CDT [facility] ([facility]) [...] variations. Test developed and characteristics determined by [employer]. See Compliance Statement C: [employer]/ Performed by [employer], [address] [place], [place] [id number] www.[email or web address], Jocelynn Salomon MD, Lab. Director Blood BLOOD SPECIMEN / Unknown Lab Venipuncture / Unknown 04/04/2020 1:28 PM CDT 04/04/2020 1:59 PM CDT Billie Medrano MD LAB - CHEMISTRY CHERIE CABRALES [employer] [facility]) [address] [place] [address] * MEL BLOOD SCREEN W/REFLEX TITER (04/04/2020 1:28 PM CDT) MEL IgG None Detected None Detected 04/06/2020 5:16 PM CDT [employer] ([facility]) Comment: If suspicion of connective tissue disease is strong and MEL EIA is negative, consider testing for MEL by IFA ([id number]). INTERPRETIVE INFORMATION: Anti-Nuclear Antibodies (MEL), IgG by GAYLE Antinuclear Antibodies (MEL), IgG by GAYLE: MEL specimens are screened using enzyme-linked immunosorbent assay (GAYLE) methodology. All GAYLE results reported as Detected are further tested by indirect fluorescent assay (IFA) using HEp-2 substrate with an IgG-specific conjugate. The MEL GAYLE screen is designed to detect antibodies against dsDNA, histones, SS-A (Ro), SS-B (La), Cunha, Cunha/METAL ROOFER, Scl-70, Shellie-1, centromeric proteins, other antigens extracted from the HEp-2 cell nucleus. MEL GAYLE assays have been reported to have lower sensitivities than MEL IFA for systemic autoimmune rheumatic diseases (SARD). Negative results do not necessarily rule out SARD. Performed By: [employer] [address] [place] [address] Estimator And Drafter Supervisor: Jocelynn Salomon MD Blood BLOOD SPECIMEN / Unknown Lab Venipuncture / Unknown 04/04/2020 1:28 PM CDT 04/04/2020 2:36 PM CDT Billie Medrano MD LAB - CHEMISTRY CHERIE CABRALES [facility] ([facility]) [address] [place] [address], [facility] * TRANSFERRIN (04/04/2020 1:28 PM CDT) Transferrin 176 174 - 382 mg/dL 04/04/2020 3:05 PM CDT [facility] Transferrin Saturation % 40 16 - 50 % 04/04/2020 3:05 PM CDT [facility] Blood BLOOD SPECIMEN / Unknown Lab Venipuncture / Unknown 04/04/2020 1:28 PM CDT 04/04/2020 2:36 PM CDT Billie Medrano MD LAB - CHEMISTRY CHERIE CABRALES Performing Organization Address City/[facility]/ZIP Co de Phone Number [address] [address], [facility] [phone] * CERULOPLASMIN (04/04/2020 1:28 PM CDT) Ceruloplasmin 32 20 - 60 mg/dL 04/04/2020 3:06 PM CDT [facility] Blood BLOOD SPECIMEN / Unknown Lab Venipuncture / Unknown 04/04/2020 1:28 PM CDT 04/04/2020 2:36 PM CDT Billie Medrano MD LAB - CHEMISTRY CHERIE CABRALES Performing Organization Address City/[facility]/ZIP Co de Phone Number [address] [address], [place] [phone] * ALPHA FETOPROTEIN BLOOD TUMOR MARKER (04/04/2020 1:28 PM CDT) Alpha-Fetoprote in Tumor Marker 4.6 <=8.3 ng/mL 04/04/2020 2:42 PM CDT [facility] Comment: AFP values will vary depending on testing procedure used. Results are not comparable across different methods. AFP values obtained by [facility] using an Castaneda Alinity Immunoassay. Blood BLOOD SPECIMEN / Unknown Lab Venipuncture / Unknown 04/04/2020 1:28 PM CDT 04/04/2020 1:59 PM CDT Billie Medrano MD LAB - CHEMISTRY CHERIE CABRALES [facility] [address] [place] [address], [facility] [phone] * (ABNORMAL) CBC W/O DIFFERENTIAL (04/04/2020 1:28 PM CDT) WBC 5.5 3.5 - 10.5 10 3/uL 04/04/2020 2:[address] [facility] RBC 3.98(L) 4.30 - 5.70 10 6/uL 04/04/2020 2:19 PM T [facility] Hemoglobin 13.4(L) 13.5 - 17.5 g/dL 04/04/2020 2:19 PM T [facility] Hematocrit 40.2 39.0 - 50.0 % 04/04/2020 2:19 PM T [facility] MCV 101.0(H) 81.0 - 97.0 fL 04/04/2020 2:19 PM CDT [facility] MCH 33.7 28.0 - 34.0 pg 04/04/2020 2:19 PM T [facility] MCHC 33.3 32.0 - 36.0 g/dL 04/04/2020 2:19 PM T [facility] Platelet Count 124(L) 150 - 400 10 3/uL 04/04/2020 2:19 PM T [facility] RDW-SD 50.4(H) 36.0 - 50.0 fL 04/04/2020 2:19 PM T [facility] RDW-CV 13.4 11.2 - 14.8 % 04/04/2020 2:19 PM T [facility] MPV 10.5 9.3 - 12.8 fL 04/04/2020 2:19 PM T [facility] nRBC Absolute 0.00 0 10 3/uL 04/04/2020 2:19 PM T [facility] nRBC Auto 0.0 0 /100 WBC 04/04/2020 2:19 PM CDT [facility] Blood BLOOD SPECIMEN / Unknown Lab Venipuncture / Unknown 04/04/2020 1:28 PM CDT 04/04/2020 1:59 PM CDT Billie Medrano MD LAB - HEMATOLOGY ORD ERABLES [address] [address], [facility] [phone] * IRON BLOOD (04/04/2020 1:28 PM CDT) [facility] Iron 89 50 - 175 mcg/dL 04/04/2020 3:05 PM CDT [facility] Blood BLOOD SPECIMEN / Unknown Lab Venipuncture / Unknown 04/04/2020 1:28 PM CDT 04/04/2020 2:36 PM CDT Billie Medrano MD LAB - CHEMISTRY ORDE RABLES Performing Organization Address City/[facility]/ZIP Co de Phone Number [address] [address], [facility] [phone] * HEPATITIS B SURFACE ANTIBODY (04/04/2020 1:28 PM CDT) [facility] Hepatitis B Virus Surface Antibody Non-react cathi Non-react cathi 04/04/2020 3:23 PM CDT [facility] Comment: < 8 mIU/mL Hepatitis B surface Antibody (HBsAb). Nonreactive for HBsAb - individual is considered not immune to Hepatitis B Virus infection. Hepatitis B Surface Antibody Quantitative 4.7 <8.0 mIU/mL 04/04/2020 3:23 PM CDT [facility] Comment: Hepatitis B Surface Antibody Numeric Result Interpretation: Nonreactive: <8.0 mIU/mL Indeterminate: 8.0 - 12.0 mIU/mL Reactive: >12.0 mIU/mL Blood BLOOD SPECIMEN / Unknown Lab Venipuncture / Unknown 04/04/2020 1:28 PM CDT 04/04/2020 2:36 PM CDT Billie Medrano MD LAB - CHEMISTRY CHERIE CABRALES Performing Organization Address City/[facility]/ZIP Co de Phone Number [facility] [address] [place] [address], [place] [phone] * HEPATITIS B CORE ANTIBODY (04/04/2020 1:28 PM CDT) HBc Antibody Total Non-reacti ve Non-reacti ve 04/04/2020 3:27 PM CDT [facility] Blood BLOOD SPECIMEN / Unknown Lab Venipuncture / Unknown 04/04/2020 1:28 PM CDT 04/04/2020 2:36 PM CDT Billie Medrano MD LAB - CHEMISTRY CHERIE CABRALES Performing Organization Address City/[facility]/ZIP Co de Phone Number [facility] [address] [place] [phone], [place] [phone] * HEPATITIS B SURFACE ANTIGEN W RFLX CONFIRMATION (04/04/2020 1:28 PM CDT) Hepatitis B Virus Surface Antigen Non-reacti ve Non-reacti ve 04/04/2020 3:27 PM CDT [facility] Blood BLOOD SPECIMEN / Unknown Lab Venipuncture / Unknown 04/04/2020 1:28 PM CDT 04/04/2020 2:36 PM CDT Billie Medrano MD LAB - CHEMISTRY CHERIE CABRALES Performing Organization Address City/[facility]/ZIP Co de Phone Number [address] [address], [place] [phone] * HEPATITIS C ANTIBODY (04/04/2020 1:28 PM CDT) Hepatitis C Antibody Non-react cathi Non-reac tive 04/04/2020 3:27 PM CDT [facility] Comment:Hepatitis C Antibody screen indicates no [...] CABRALES [facility] [address] [place] [address], [place] [phone] * (ABNORMAL) HEPATITIS A ANTIBODY (04/04/2020 1:28 PM CDT) Hepatitis A Virus Antibody Total Positive( A) Negative 04/06/2020 8:44 AM CDT [employer] ([facility]) Comment: The positive anti-HAV is consistent with recent or remote Hepatitis A infection or antibody response to HAV vaccination. False positive anti-HAV can occur. Performed by [employer], [address] [place] [address] www.[employer], Jocelynn Salomon MD, Lab. Director Blood BLOOD SPECIMEN / Unknown Lab Venipuncture / Unknown 04/04/2020 1:28 PM CDT 04/04/2020 2:36 PM CDT Billie Medrano MD LAB - CHEMISTRY CHERIE CABRALES Performing Organization Address City/[facility]/ZIP Co de Phone Number [facility] [employer] ([facility]) [address] [place] [address], [facility] * (ABNORMAL) FERRITIN (04/04/2020 1:28 PM CDT) Pathologist [facility] Ferritin 2,699(H) 22 - 275 ng/mL 04/04/2020 4:[address] [facility] Comment:Result obtained by [employer]. Blood BLOOD SPECIMEN / Unknown Lab Venipuncture / Unknown 04/04/2020 1:28 PM CDT 04/04/2020 2:36 PM CDT Billie Medrano MD LAB - CHEMISTRY CHERIE CABRALES [facility] [address] [place] [address], [place] [phone] * CT ABDOMEN PELVIS WO CONTRAST (11/17/2018 [...] 11/17/2018 at 4:07 PM Margarita Martinez Moses [employer] SUPERVISOR CT ORDERABLES * (ABNORMAL) GLUCOSE - POINT OF CARE (11/17/2018 12:18 PM CDT) Only the most recent of2 resultswithin the time period is included. Glucose WB/POC 121(H) 70 - 106 mg/dL 11/17/2018 4:17 PM CDT [facility] Specimen Type Arterial/C apillary 11/17/2018 4:17 PM CDT [facility] Blood BLOOD SPECIMEN / Unknown 11/17/2018 12:18 PM CDT 11/17/2018 4:17 PM CDT Vic Vaelnzuela MD LAB - POINT OF CARE ORDERABLES Performing Organization Address City/State/[facility] Co de Phone Number [facility] [address] [place] [address] * US SCROTUM W DOPPLER (11/17/2018 10:52 [...] Note Tee Medina II, MD - 11/16/2018 [facility] [address] [place] [address] Lower Extremity Venous Ultrasound Report Pat.Name: MATT NICOLE.ID: [id number] .Date: 11/16/2018 Exam Time: 10:38:00 AM Study Type:LE Venous Age: 7 1970,48Y Sex: MALE Sonogrphr: [place] Varner RVT Pat. Stat.:Inpatient Room: 8 CPT - 4: 95975 Reason for Study: Pain -Leg, left Procedures: Lower Extremity Venous - Bilateral Visit ID: [id number] ++++++++++++++++++++++++++++++++++++ SUMMARY: ++++++++++++++++++++++++++++++++++++ No evidence of deep [...] (OLIVIA Medina II MD, RVT Margarita Lopes COPY PREPARER-BOATBUILDER SUPERVISOR VASCULAR LAB OR DERABLES * (ABNORMAL) HEMOGLOBIN A1C (11/16/2018 5:16 AM CDT) Only the most recent of2 resultswithin the time period is included. Hemoglobin A1c 6.6(H) 4.0 - 6.1 % 11/16/2018 6:43 AM CDT [facility] Estimated Average Glucose 143 mg/dL 11/16/2018 6:43 AM [facility] Blood BLOOD SPECIMEN / Unknown Lab Venipuncture / Unknown 11/16/2018 5:16 AM CDT 11/16/2018 5:[address] [facility] - 11/16/2018 6:43 AM CDT Attention clinician: Reference Range has changed. Iveth Beck MD LAB - CHEMISTRY ORD ERABLES [facility] [address] [facility] [place] [address] * (ABNORMAL) BASIC METABOLIC PANEL (CALCIUM TOTAL) (11/16/2018 5:16 AM CDT) Only the most recent of3 resultswithin the time period is included. Glucose 141(H) 74 - 106 mg/dL 11/16/2018 5:47 AM [facility] Sodium 137 136 - 145 mmol/L 11/16/2018 5:47 AM [facility] Potassium 4.4 3.5 - 5.1 mmol/L 11/16/2018 5:47 AM [facility] Chloride 103 98 - 107 mmol/L 11/16/2018 5:47 AM [facility] CO2 26 23 - 31 mmol/L 11/16/2018 5:47 AM [facility] Calcium 8.9 8.4 - 10.2 mg/dL 11/16/2018 5:47 AM [facility] Anion Gap 8 8 - 16 mmol/L 11/16/2018 5:47 AM [facility] BUN 19 8.9 - 20.6 mg/dL 11/16/2018 5:47 AM [facility] Creatinine 0.84 0.73 - 1.18 mg/dL 11/16/2018 5:47 AM [facility] eGFR by MDRD >60 >60 mL/min/1.7 3m2 11/16/2018 5:47 AM [facility] eGFR by MDRD >60 >60 mL/min/1.7 3m2 11/16/2018 5:47 AM [facility] Blood BLOOD SPECIMEN / Unknown Lab Venipuncture / Unknown 11/16/2018 5:16 AM CDT 11/16/2018 5:23 AM CDT Narrative [facility] - 11/16/2018 5:47 AM CDT Attention clinician: BUN Reference Range has changed. Matt Nicholson MD LAB - CHEMISTRY ORDE KERON Performing Organization Address [facility]/ZIP Co de Phone Number [facility] [address] [place] [address] * MAGNESIUM BLOOD (11/16/2018 5:16 AM CDT) Only the most recent of2 resultswithin the time period is included. Magnesium 2.5 1.6 - 2.6 mg/dL 11/16/2018 9:26 AM CDT [facility] Blood BLOOD SPECIMEN / Unknown Lab Venipuncture / Unknown 11/16/2018 5:16 AM CDT 11/16/2018 5:23 AM CDT Margarita Lopes COPY PREPARER-BOATBUILDER SUPERVISOR LAB - CHEMISTRY ORDERABLES Performing Organization Address [facility] Co de Phone Number [facility] [address] [place] [address] * CT ABDOMEN AND PELVIS WITH IV [...] Yellow Straw, Yellow 11/15/2018 11:49 PM [facility] Clarity UA Clear Clear 11/15/2018 11:49 PM [facility] Glucose UA 3+(A) Negative 11/15/2018 11:49 PM [facility] Bilirubin UA Negative Negative 11/15/2018 11:49 PM [facility] Ketone UA Negative Negative 11/15/2018 11:49 PM [facility] Specific Clark UA 1.012 1.005 - 1.030 11/15/2018 11:49 PM [facility] Blood UA Negative Negative 11/15/2018 11:49 PM [facility] pH UA 5.0 5.0 - 8.0 pH 11/15/2018 11:49 PM [facility] Protein UA Negative Negative 11/15/2018 11:49 PM [facility] Urobilinogen UA Negative Negative mg/dL 11/15/2018 11:49 PM [facility] Nitrite UA Negative Negative 11/15/2018 11:49 PM [facility] Leukocyte UA Negative Negative 11/15/2018 11:49 PM [facility] Urine Microscopy Urine microscopy not indicated 11/15/2018 11:49 PM [facility] Reflex Status Culture not indicated 11/15/2018 11:49 PM [facility] Urine URINE SPECIMEN OBTAINED BY CLEAN CATCH PROCEDURE / Unknown Collection / Unknown 11/15/2018 11:41 PM CDT 11/15/2018 11:43 PM CDT Narrative [facility] - 11/15/2018 11:49 PM CDT Matt Nicholson MD LAB - URINALYSIS ORD ERABLES Performing Organization Address [facility]/ZIP Co de Phone Number [facility] [address] [place] [address] * ERYTHROCYTE SEDIMENTATION RATE (11/15/2018 11:23 PM CDT) Erythrocyte Sedimentation Rate Automated 4 0 - 15 MM/HR 11/16/2018 1:59 AM CDT [facility] Blood BLOOD SPECIMEN / Unknown Venipuncture / Unknown 11/15/2018 11:23 PM CDT 11/15/2018 11:35 PM CDT Matt Nicholson MD LAB - HEMATOLOGY ORD ERABLES Performing Organization Address [facility] Co de Phone Number [facility] [address] [place] [address] * C-REACTIVE PROTEIN SENSITIVE (11/15/2018 11:22 PM CDT) Pathologist [facility] C-Reactive Protein High Sensitivity 0.07 <0.30 mg/dL 11/16/2018 10:15 AM CDT [facility] Blood BLOOD SPECIMEN / Unknown Venipuncture / Unknown 11/15/2018 11:22 PM CDT 11/16/2018 1:54 AM CDT Narrative [facility] - 11/16/2018 10:15 AM CDT C-REACTIVE [...] Organization Address City/State/ZIP Co de Phone Number [facility] [address] [place] [address] * XR SHOULDER 2+ VW LEFT (07/10/2018 8:28 AM [employer]) Anatomical Region Laterality Modality Upper Extremity Radiographic Maribel ging 07/10/2018 8:30 AM [employer] Impressions 07/10/2018 8:31 AM [employer] No displaced fractures or dislocation identified. Reading Radiologist: Dionne Rader MD on 07/10/2018 at 8:31 AM Narrative 07/10/2018 8:31 AM [employer] History: Left shoulder pain following fall COMPARISON: [...] 1:49 PM CDT Procedure Title: CT RENAL STONE*[id number] HISTORY: Testicular pain, unspecified COMPARISON: None. TECHNIQUE: [...] MD - 12/17/2017 Procedure Title: CT RENAL STONE*[id number] HISTORY: Testicular pain, unspecified COMPARISON: None. TECHNIQUE: [...] Probe Negative Negative 12/18/2017 9:18 AM CDT [facility]CRO[facility] GC Amplified Probe Negative Negative 12/18/2017 9:18 AM CDT [facility]CRO[facility] Microbiology ENTIRE ENDOCERVIX / Unknown Collection / Unknown 12/17/2017 10:41 AM CDT 12/17/2017 4:05 PM CDT Narrative [facility]CRO[facility] - 12/18/2017 9:18 AM CDT Results based on detection/no detection of ribosomal RNA by amplified method. Prince Brennan MD LAB - MICROBIOLOGY O RDERABLES Performing Organization Address [facility] Co de Phone Number [facility] [address] [place] [address], [facility] [phone] * EKG 12-LEAD (11/26/2012 1:55 AM CDT) Only the most recent of2 resultswithin the time period is included. Narrative [facility] - 11/26/2012 1:55 AM CDT A scan was deleted from the Results section by Desmond Lorenzana [[id number]] on 11/26/2012 at 1:55 AM (File: [id number]) Procedure Note ProviderEnrique MD - 11/20/2017 A scan was deleted from the Results section by Desmond Lorenzana [[id number]] on 11/26/2012t 1:55 AM (File:[id number]) Paulo Nuñez MD ECG ORDERABLES Performing Organization Address [facility] Co de Phone Number [facility] [...] - CHEMISTRY CHERIE CABRALES Performing Organization Address [facility] Co de Phone Number [address] [phone] * TROPONIN I (11/09/2012 6:00 PM CDT) Only the most recent of3 resultswithin the time period is included. Troponin I < 0.010 <0.032 ng/mL [facility] Comment: NOTE Any condition resulting in [...] - CHEMISTRY CHERIE CABRALES Performing Organization Address [facility] Co de Phone Number [address] [phone] * CK + CKMB PANEL (11/09/2012 6:00 PM CDT) Only the most recent of3 resultswithin the time period is included. Pathologist [facility] CK Total 70 30 - 200 Units/L [facility] CK-MB 0.7 0.0 - 6.6 ng/mL [facility] Comment: CKMB Reference Range 6.6 ng/mL [...] CHERIE CABRALES [facility] Organization Address City/State/[facility] Co de Phone Number [address] [phone] * MRI BRAIN WO CONTRAST (11/09/2012 4:48 [...] CDT) APTT 27.1 23.0 - 38.4 SECONDS [facility] Comment: SUGGESTED THERAPEUTIC RANGE FOR FULL DOSE I.V. HEPARIN THERAPY FOR VENOUS THROMBOEMBOLISM IS 66.0 - 91.0 SECONDS, WITH AN APTT RATIO OF 2.1 - 3.0. APTT Ratio 0.88 [facility] Plasma specimen (specimen) 11/09/2012 12:10 AM CDT 11/09/2012 12:31 AM CDT Narrative [facility] - 11/09/2012 12:45 AM CDT Is patient on Heparin, Argatroban or Dabigatran?->N IS PATIENT ON HEPARIN? (Y OR N) N Paulo Nuñez MD LAB - COAGULATION OR DERABLES [address] [phone] * (ABNORMAL) URINALYSIS W/MICROSCOPIC NO CULTURE (11/09/2012 12:10 AM CDT) Color UA YELLOW STRW,YELLOW [facility] Clarity UA CLEAR CLEAR [facility] Specific Clark Urine 1.015 1.001 - 1.030 [facility] pH UA <= 5.0 5.0 - 8.0 [facility] Protein UA NEGATIVE <20 mg/dL [facility] Glucose UA NEGATIVE NEGATIVE mg/dL [facility] Ketones NEGATIVE NEGATIVE mg/dL [facility] Bilirubin UA NEGATIVE NEGATIVE mg/dL [facility] Blood UA NEGATIVE NEGATIVE [facility] Nitrite UA NEGATIVE NEGATIVE [facility] Leukocyte Esterase NEGATIVE NEGATIVE [facility] Urobilinogen UA < 2.0 <2.0 mg/dL [facility] WBC Urine < 1 0 - 2 /HPF [facility] Mucus Urine RARE(A) NONE SEEN /LPF [facility] Urine specimen (specimen) URINE SPECIMEN OBTAINED BY CLEAN CATCH PROCEDURE / Unknown 11/09/2012 12:10 AM CDT 11/09/2012 12:31 AM CDT Paulo Nuñez MD LAB - URINALYSIS ORD ERABLES [address] [phone] * DRUG ABUSE PANEL 10-20+ETHANOL URINE NO CONFIRM (11/09/2012 12:10 AM CDT) Amphetamines NEGATIVE NEGATIVE [facility] Comment:Positive Cutoff: >=1 000 ng/mL Barbiturate NEGATIVE NEGATIVE [facility] Comment:Positive Cutoff: >=2 00 ng/mL Benzodiazepine Screen Urine NEGATIVE NEGATIVE [facility] Comment:Positive Cutoff: >=2 00 ng/mL Opiates NEGATIVE NEGATIVE [facility] Comment:Positive Cutoff: >=3 00 ng/mL Cocaine Metabolite Urine NEGATIVE NEGATIVE [facility] Comment:Positive Cutoff: >=3 00 ng/mL Phencyclidine Screen Urine NEGATIVE NEGATIVE [facility] Comment:Positive Cutoff: >=2 5 ng/mL Cannabinoids Screen Urine NEGATIVE NEGATIVE [facility] Comment:Positive Cutoff: >=5 0 ng/mL Methadone NEGATIVE NEGATIVE [facility] Comment:Positive Cutoff: >=3 00 ng/mL Note SEE NOTE [facility] Comment: Positive results should be confirmed by another generally accepted non-immunological method such as gas chromatography or mass spectrometry. Toxicology testing by the [facility] is an aid to medical diagnosis and treatment of patients. No documented chain of custody was maintained. Results are intended to be used for clinical purposes only. Note SEE NOTE [facility] Comment: The UTOX Panel does not screen for Propoxyphene, Meprobamate, Carisoprodol, Trazodone, [id number]-[id number] medications and/or volatiles (Acetone, Isopropanol, Methanol, Ethylene Glycol). Ethanol, Salicylate, Acetaminophen, Tricyclic Antidepressants and several therapeutic drugs may be individually assayed in a serum specimen. Urine specimen (specimen) URINE SPECIMEN OBTAINED BY CLEAN CATCH PROCEDURE / Unknown 11/09/2012 12:10 AM CDT 11/09/2012 12:31 AM CDT Paulo Nuñez MD LAB - URINE CHEMISTR Y ORDERABLES Performing Organization Address [facility] Co de Phone Number [address] [phone] * PHOSPHORUS BLOOD (11/09/2012 12:10 AM CDT) Phosphorus 3.0 2.3 - 4.7 mg/dL [facility] Serum 11/09/2012 12:1 0 AM CDT 11/09/2012 12:31 AM CDT Narrative [facility] - 11/09/2012 1:04 AM CDT IS PATIENT ON HEPARIN? (Y OR N) N Paulo Nuñez MD LAB - CHEMISTRY ORDE RABLES Performing Organization Address [facility] Co de Phone Number [address] [phone] * HEPATIC FUNCTION PANEL (11/09/2012 12:10 AM CDT) Protein Total 6.9 6.0 - 8.3 g/dL [facility] Albumin 3.8 3.4 - 5.0 g/dL [facility] Bilirubin Total 0.5 0.2 - 1.2 mg/dL [facility] Alkaline Phosphatase 54 40 - 150 Units/L [facility] ALT 8 0 - 55 Units/L [facility] AST 18 5 - 34 Units/L [facility] Albumin/Globulin Ratio 1.2 1.1 - 2.3 [facility] Bilirubin Direct 0.2 0.0 - 0.5 mg/dL [facility] Bilirubin Indirect 0.3 mg/dL [facility] Comment: Unconjugated bilirubin is a calculated value, reference ranges have not been established Venous blood specimen (specimen) 11/09/2012 12:10 AM CDT 11/09/2012 12:31 AM CDT Narrative [facility] - 11/09/2012 1:04 AM CDT IS PATIENT ON HEPARIN? (Y OR N) N Paulo Nuñez MD LAB - CHEMISTRY CHERIE CABRALES Performing Organization Address [facility]/ZIP Co de Phone Number [address] [phone] * (ABNORMAL) LIPID PROFILE (11/09/2012 12:10 AM CDT) Cholesterol Total 199 <200 mg/dL [facility] HDL 56 > OR = 40 mg/dL [facility] Comment: ATP III classification of HDL cholesterol: <40 mg/dL Low; considered a major risk factor >60 mg/dL High; considered a negative risk factor Triglycerides 339(H) <150 mg/dL [facility] Comment: ATP III classification of Triglycerides: < 150 mg/dL Normal triglycerides 150-199 mg/dL Borderline-high triglycerides 200-400 mg/dL High triglycerides > 500 mg/dL Very high triglycerides LDL Calculated 75 0 - 100 mg/dL [facility] Comment: ATP III classification of LDL cholesterol: <100 mg/dL Optimal 100-129 Near optimal/above optimal 130-159 Borderline high 160-189 High >190 Very high 11/09/2012 12:1 0 AM CDT 11/09/2012 12:31 AM CDT Narrative [facility] - 11/09/2012 12:19 PM CDT IS PATIENT ON HEPARIN? (Y OR N) N Paulo Nuñez MD LAB - CHEMISTRY CHERIE CABRALES Performing Organization Address [facility]/ZIP Co de Phone Number [address] [phone] * XR CHEST 1VW PORTABLE (11/08/2012 11:45 [...] Nuñez MD ECHOCARDIOGRAPHY RAD IANT Care Teams Corporate Strategy Associate Relationship Specialty Start Date End Date Fidel Camejo MD [address] [place] [phone] PCP - General Family Medicine 04/10/24
--- OUTSIDE RECORDS SUMMARY | 2024-08-26 09:21 | XMS_ITS | Encounter Summary ---
Author Organization [facility] Address [address] [place] [address] Phone Care Team Providers Care Lawnmower Repair Mechanic Name Role Phone Dwight Nascimento MD Unavailable Matt Mathews MD Primary Care Provider [phone] Encounter Details Date Type Department Care Team [...] on file Legal Sex Male 9:05 AM DOPE HEATER Gender Identity Male 06/09/2023 11:43 AM DOPE HEATER Sexual Orientation Straight 06/09/2023 11 :43 AM DOPE HEATER documented as of this encounter Plan of Treatment Not on file documented as of this encounter Procedures Procedure Name Priority Date/Time Associated Diagnosis Comments SCAN - LABS 04/11/2024 documented in this encounter Results * SCAN - LABS (04/11/2024) us Provider Scanning Final Result documented in this encounter Visit Diagnoses Not on filedocumented in this encounter Care Teams Lawnmower Repair Mechanic Relationship Specialty Start Date End Date Matt Mathews MD [address] [place] [address] PCP - General Family Medicine 03/31/22 Dwight Nascimento MD Consulting Physician Internal Medicine 09/20/21 documented as of this encounter
--- OUTSIDE RECORDS SUMMARY | 2024-08-26 09:21 | XMS_ITS | Encounter Summary ---
Author Organization [facility] Address [address] [place] [address] Phone Care Team Providers Care Cylinder Inspector Name Role Phone Dwight Nascimento MD Unavailable Matt Mathews MD Primary Care Provider [phone] Encounter Details Date Type Department Care Team [...] on file Legal Sex Male 9:05 AM LPN MEDICAL ASSISTANT Gender Identity Male 06/09/2023 11:43 AM LPN MEDICAL ASSISTANT Sexual Orientation Straight 06/09/2023 11 :43 AM LPN MEDICAL ASSISTANT documented as of this encounter Plan of Treatment Not on file documented as of this encounter Procedures Procedure Name Priority Date/Time Associated Diagnosis Comments SCAN - LABS 04/08/2024 documented in this encounter Results * SCAN - LABS (04/08/2024) us Provider Scanning Final Result documented in this encounter Visit Diagnoses Not on filedocumented in this encounter Care Teams Cylinder Inspector Relationship Specialty Start Date End Date Matt Mathews MD [address] [place] [address] PCP - General Family Medicine 03/31/22 Dwight Nascimento MD Consulting Physician Internal Medicine 09/20/21 documented as of this encounter
[2024-08-26 09:54] LABS: Glucose Point of Care 129 mg/dl (65-105)
[2024-08-26 12:24] LABS: Appearance Peritoneal Fluid Clear (Clear); Color Peritoneal Fluid Yellow (Colorless); Eosinophils Peritoneal Fluid 0 %; Lymphocytes Peritoneal Fluid 23 %; Macrophages Peritoneal Fluid 2 %; Mesothelial Cells Peritoneal Fluid 0 %; Monocytes Peritoneal Fluid 72 %; Neutrophils Peritoneal Fluid 3 % (0-25); Nucleated Cells Peritoneal Flu 276 /uL (0-500); RBC Peritoneal Fluid < 2000 /uL (0-10000); Source Peritoneal Fluid Peritoneal Fluid
[2024-08-26 12:25] LABS: Other Cells Peritoneal Fluid 0 %
== END 2024-08-26 08:50 | disposition home or self-care (01) ==
PROVIDERS: Radiology Diagnostic Radiology; PCP Hospitalist; Visit Provider Nurse Practitioner Family
DX: K42.9 Umbilical hernia without obstruction or gangrene (principal)
CPT/HCPCS: 49083; 74177; 87070; 87075; 87205; 89051; Q9967

== ENCOUNTER 2024-09-28 11:04 | Outpatient (CLI) | payer MEDICARE, MEDICAID, SELFPAY ==
--- NOTE | ~2024-09-28 | US_ITS ---
EXAMINATION: US paracentesis abd w/image DATE: 09/28/2024 13:24 INDICATION: Abdominal pain and mass TECHNIQUE: The procedure and its risks and benefits were discussed with the patient. Potential risks discussed included bleeding and infection. The skin was prepped and draped in sterile fashion. 1% lid ocaine was used for local anesthesia. Under ultrasound guidance, a 5 Fr catheter with trochar was adv anced into the ascites in the right lower quadrant. Fluid was aspirated into vacuum bottles. The cath eter was removed, and a dressing was applied. There were no immediate complications. FINDINGS: Ultrasound images demonstrate ascites and the catheter within the fluid. IMPRESSION: 1. Successful ultrasound-guided paracentesis yielding 1100 mL of clear yellow fluid. Reviewed, dictated and finalized at location A.
[2024-09-28 11:21] LABS: Immature Platelet Fraction Pct 8.1 % (0.9-11.2); Mean Platelet Volume 11.5 fl (7.4-10.4); Platelet Count Result 80 k/mm3 (150-375)
[2024-09-28 12:01] LABS: Prothrombin Time 13.4 Seconds (11.1-14.7)
--- OUTSIDE RECORDS SUMMARY | 2024-09-28 12:31 | XMS_ITS | CONTINUITY OF CARE DOCUMENT ---
Author Name rell, rell Address Unknown Organization [facility] Address [address] [place] [address] Phone [phone] Care Team Providers Care Storeroom Keeper Name Role Phone Goyo KONG, Sunny Unavailable [phone] Sunny Nance MD Unavailable [phone] PROBLEMS Condition Status Date Provider Notes Pre-operative respiratory examination active Arturo Maya Tobacco abuse active Sunny Nance MD renal stone active Sunny Nacne MD PREDIABETES; active Sunny Nance MD Health maintenance examination active Kurt Nance MD Vitamin D deficiency active Sunny Duenas Hyperlipidemia active Sunny Nance MD Overweight active Sunny Nance MD FAMILY HISTORY OF HEART DISEASE active Jacoby Nance MD sandyritu had stent ENCOUNTERS Date Type Provider Location Encounter Diag nosis - In-person encounter Office Visit Sunny Nance MD [facility] Tobacco abuserenal stonePREDIABETES;[facility] maintenance examinationVitamin D deficiencyHyperlipidemiaOverweightFAMILY HISTORY OF HEART [...] nda Her blood pressure, systolic 122 mm[Hg] [facility] oxygen saturation, oximetry 98 % [facility] respiratory rate E&M 16 /min [facility] [place] [facility] pulse rate 90 /min [facility] weight E&M 171.8 [lb_av] [facility] height E&M 65 [in_i] [facility] ALLERGIES No Known Drug Allergies HISTORY [...] MD number of grandchildren Sunny Nance MD [facility] smoking status Current every day smoker W wilmer Her FUNCTIONAL STATUS Date Observation Value Provider periodic limb movement index absent (0) Jeff Herbert MD FAMILY HISTORY Family Member Condition Mother Family History of Co ronary Artery Disease: INSURANCE PROVIDERS Payer name Policy type / Coverage type [employer] [place] [employer] MEDICAID (2) Medicaid [id number] ADVANCE DIRECTIVES Name Date DISCUSSED - NO DECISION MADE TREATMENT PLAN Date Name Performer Cardiology Sunny Nance MD Cardiology Sunny Nance MD Cardiology Sunny Nance MD Cardiology Sunny Nance MD Cardiology:nml uacr Sunny duque MD Cardiology:nml psa, and tsh and [facility] [employer] presser alvbuymin Sunny Nance MD Date Name STR - Routine Complete Echo CT, Coronary Calcium Score DLCO - 14892 FRC - 51473 FVC - 42414 HISTORY OF PROCEDURES Procedure Date Procedure Name Provider Procedure Notes S tatus FVC / MVV with bronchodilator - 76392 Sunny Nance MD completed FRC - 51216 Sunny Nance MD complet ed SpO2 - 87904 Sunny Nance MD comple bebeto DLCO - 35598 Sunny Nance MD comple bebeto Stress EKG Saadrianneus Erik catalan MD completed EKG Sunny Nance MD complete d SNOMED-CT: [id number] Current Medications Documented Sunny Nance MD completed
--- OUTSIDE RECORDS SUMMARY | 2024-09-28 12:31 | XMS_ITS | Clinical Summary ---
Author Organization [facility] [address] Address [address] [place] [address] Care Team Providers Care Chief Operator Hydroformer Name Role Phone Dwight Nascimento MD Unavailable Matt Mathews MD Primary Care Provider [phone] Allergies Active Allergy Reactions Criticality Noted Date Comments Ceftriaxone Itching Low 04/15/2023 Ciprofloxacin Itching Low 04/15/2023 Medications ascorbic acid (VITAMIN C) 500 mg tablet,chewable 1 tablet/chew tab (500 mg total) daily Active OneTouch Ultra Test strip CHECK 2-3 TIMES DAILY Active blood-glucose meter (OneTouch Ultra2 Meter) misc CHECK 2-3 TIMES PER DAY Active lancets (OneTouch Delica Plus Lancet) 30 gauge misc CHECK 2-3 TIMES DAILY Active cyclobenzaprine (FLEXERIL) 10 mg tablet Take 1 tablet (10 mg total) by mouth 3 (three) times a day as needed for muscle spasms for muscle spasms 270 tablet 3 025 2025 Active empagliflozin (Jardiance) 10 mg tablet Take 1 tablet (10 mg total) by mouth daily 90 tablet 025 2025 Active furosemide (LASIX) 40 mg tablet Take 2 tablets (80 mg total) by mouth 2 (two) times a day 360 tablet 025 2025 Active midodrine (PROAMATINE) 2.5 mg tablet Take 1 tablet (2.5 mg total) by mouth 3 (three) times a day 270 tablet 3 2025 Active naloxone (NARCAN) 4 mg/actuation spray,non-aerosol Administer 1 spray into affected nostril(s) as needed for opioid reversal or respiratory depression Call 911. Administer a single spray in one nostril. Repeat every 3 minutes as needed if no or minimal response. 2 each 1 Active ondansetron ODT (ZOFRAN-ODT) 4 mg disintegrating tabletIndications :Nausea and Vomiting Dissolve one tablet (4 mg) on the tongue every four hours as needed for nausea/vomitin g. 180 tablet 3 Active oxyCODONE (ROXICODONE) 10 mg tablet Take 1 tablet (10 mg total) by mouth 4 (four) times a day 120 tablet [address] (PROTONIX) 40 mg EC tablet Take 1 tablet (40 mg total) by mouth every 12 (twelve) hours 180 tablet 3 2025 Active pregabalin (LYRICA) 50 mg capsule Take 1 capsule (50 mg total) by mouth 2 (two) times a day 180 capsule 3 2025 Active spironolactone (ALDACTONE) 25 mg tabletIndications :Alcoholic cirrhosis of liver with ascites (HCC),Ascites due to alcoholic cirrhosis (HCC) Take 6 tablets (150 mg total) by mouth 2 (two) times a day 240 tablet 3 2025 Active traZODone (DESYREL) 100 mg tablet Take 2 tablets (200 mg total) by mouth nightly as needed for sleep 180 tablet 4 2025 Active morphine ER (MS CONTIN) 30 mg 12 hr tablet Take 1 tablet (30 mg total) by mouth 2 (two) times a day for 5 days 10 tablet [address] (PROTONIX) 40 mg EC tablet Take 1 tablet (40 mg total) by mouth every 12 (twelve) hours 022 2024 Discontinued(R eorder) pen needle, diabetic (UltiCare Pen Needle) 29 gauge x 1/2 needle Use to inject 2 times daily as directed. 180 each 023 2024 Discontinued(P atient Reported) insulin lispro protamine-insulin lispro 75/25 (HumaLOG 75/25) 100 unit/mL pen for injection ADMINISTER 5 UNITS UNDER THE SKIN TWICE DAILY 9 mL 023 2024 Discontinued(P atient Reported) furosemide (LASIX) 40 mg tablet Take 2 tablets (80 mg total) by mouth 2 (two) times a day 360 tablet 3 023 2024 Discontinued(R eorder) potassium chloride ER (KLOR-CON) 20 mEq CR tabletIndications :Chronic diastolic congestive heart failure (HCC) Take 1 tablet (20 mEq total) by mouth daily as needed (muscle cramps) 20 tablet 1 023 2024 Discontinued(P atient Reported) midodrine (PROAMATINE) 2.5 mg tablet Take by mouth 3 (three) times a day 023 2024 Discontinued(R eorder) ondansetron ODT (ZOFRAN-ODT) 4 mg disintegrating tabletIndications :Nausea and Vomiting Dissolve one tablet (4 mg) on the tongue every four hours as needed for nausea/vomitin g. 180 tablet 3 023 2024 Discontinued(R eorder) spironolactone (ALDACTONE) 25 mg tabletIndications :Alcoholic cirrhosis of liver with ascites (HCC),Ascites due to alcoholic cirrhosis (HCC) Take 6 tablets (150 mg total) by mouth 2 (two) times a day 240 tablet 3 023 2024 Discontinued(R eorder) cyclobenzaprine (FLEXERIL) 10 mg tablet Take 1 tablet (10 mg total) by mouth 3 (three) times a day as needed for muscle spasms 023 2024 Discontinued(R eorder) empagliflozin (Jardiance) 10 mg tablet Take 1 tablet (10 mg total) by mouth daily 022 2024 Discontinued(R eorder) oxyCODONE (ROXICODONE) 10 mg tablet 2024 Discontinued(R eorder) morphine ER (MS CONTIN) 60 mg 12 hr tablet 2024 Discontinued pregabalin (LYRICA) 50 mg capsule Take 1 capsule (50 mg total) by mouth 2 (two) times a day 2024 Discontinued(R eorder) morphine ER (JESICA) 30 mg 24 hr capsule Take 1 capsule (30 mg total) by mouth 2 (two) times a day 60 capsule 2024 Discontinued(R eorder) midodrine (PROAMATINE) 2.5 mg tablet Take 1 tablet (2.5 mg total) by mouth 3 (three) times a day 270 tablet 3 2024 Discontinued ondansetron ODT (ZOFRAN-ODT) 4 mg disintegrating tabletIndications :Nausea and Vomiting Dissolve one tablet (4 mg) on the tongue every four hours as needed for nausea/vomitin g. 180 tablet 2024 Discontinued oxyCODONE (ROXICODONE) 10 mg tablet Take 1 tablet (10 mg total) by mouth 4 (four) times a day 120 tablet [address] (PROTONIX) 40 mg EC tablet Take 1 tablet (40 mg total) by mouth every 12 (twelve) hours 180 tablet 3 2024 Discontinued pregabalin (LYRICA) 50 mg capsule Take 1 capsule (50 mg total) by mouth 2 (two) times a day 180 capsule 3 2024 Discontinued spironolactone (ALDACTONE) 25 mg tabletIndications :Alcoholic cirrhosis of liver with ascites (HCC),Ascites due to alcoholic cirrhosis (HCC) Take 6 tablets (150 mg total) by mouth 2 (two) times a day 240 tablet 3 2024 Discontinued furosemide (LASIX) 40 mg tablet Take 2 tablets (80 mg total) by mouth 2 (two) times a day 360 tablet 3 2024 Discontinued empagliflozin (Jardiance) 10 mg tablet Take 1 tablet (10 mg total) by mouth daily 90 tablet 3 025 2024 Discontinued cyclobenzaprine (FLEXERIL) 10 mg tablet Take 1 tablet (10 mg total) by mouth 3 (three) times a day as needed for muscle spasms for muscle spasms 270 tablet 3 025 2024 Discontinued naloxone (NARCAN) 4 mg/actuation spray,non-aerosol Administer 1 spray into affected nostril(s) as needed for opioid reversal or respiratory depression Call 911. Administer a single spray in one nostril. Repeat every 3 minutes as needed if no or minimal response. 2 each 1 025 2024 Discontinued morphine ER (JESICA) 30 mg 24 hr capsule Take 1 capsule (30 mg total) by mouth 2 (two) times a day 60 capsule 025 2024 Discontinued(D uplicate order) Active Problems Problem Noted Date Diagnosed Date [...] 08/18/2022 Assessment & Plan (08/18/2022 1:51 PM SLAT GRADER): Patient reports decreased edema; low continues to [...] 04/29/2022 Assessment & Plan (04/29/2022 1:45 PM SLAT GRADER): To hospital for severe pain and diarrhea; [...] 09/22/2021 Assessment & Plan (07/10/2022 12:41 PM SLAT GRADER): Continues to be present, causing pain and [...] medication Assessment & Plan (07/29/2022 2:02 PM SLAT GRADER): Patient reports generally improved pain management, though decreased response to 5 mg of oxycodone; discussed with patient metabolism pathway limits use of hydrocodone due to risk of overdose and accumulation of metabolites Will increase oxycodone at next refill Assessment & Plan (06/13/2021 10:19 AM SLAT GRADER): Patient was advised given concern for an incarcerated umbilical hernia to report to the er now. He is going to [place]. He was asked to contact the office [...] outcome. Assessment & Plan (06/03/2021 6:29 PM SLAT GRADER): Patient continues to complain of jeovany-umbilical abdominal pain and is requesting continued refills of Tramadol. When asked how many he had left he states he ran out of them a week ago -- He was just given #12 on 05/13 upon discharge from [place]. Today is 12/8 so if he ran [...] 7:11 PM CDT): Still awaiting records from [place] regarding the Cardiology evaluation of the pericardial [...] MEL. Assessment & Plan (06/03/2021 6:10 PM SLAT GRADER): Positive MEL. Per Rheumatology evaluation there is [...] management Assessment & Plan (06/03/2021 6:10 PM SLAT GRADER): Chronic wedge compression fracture at T11. Patient [...] No hx of HE/jaundice. MR[facility]/2020 [facility] with cirrhosis/hepatic steatosis, 1.8 cm arterially enhancing [...] done locally at [facility] in [place], based on OSH records 1 EGD was [...] paracentesis Assessment & Plan (08/18/2022 1:49 PM SLAT GRADER): Not well controlled, patient had 5 L removed by paracentesis 1 week ago; is already refilled with ascitic fluid Patient to follow-up with cardiology on will likely need standing order for paracentesis Continue furosemide 80 mg b.i.d., spironolactone 100 mg daily Complicated by worsening peripheral edema Patient to follow-up with hepatology at end of week Assessment & Plan (08/04/2022 10:04 AM SLAT GRADER): Not well controlled; continues to have significant [...] site Assessment & Plan (07/29/2022 2:01 PM SLAT GRADER): Not well controlled, worsening; patient has recurrent [...] NAFLD Assessment & Plan (07/10/2022 12:43 PM SLAT GRADER): Admitted for EGD with banding, required 3 [...] 10:13 AM CDT): Continue per GI at [facility] for his cirrhosis. Stressed importance of following up on a regular basis due his progressive disease. Assessment & Plan (09/15/2021 8:39 PM CDT): Continue per hepatology at [facility] Assessment & Plan (06/03/2021 6:09 PM SLAT GRADER): Continue her GI at [facility], Dr. Jasso. He has been started on new medication to help decrease the ascites buildup. Encouraged him to follow their directions and keep his appointments. Strongly encouraged complete cessation of alcohol. I reviewed the lab results regarding alcohol use. He still adamant that he has not drank since his 51th birthday. Assessment & Plan (05/14/2021 12:07 PM SLAT GRADER): - MELD labs today, and repeat autoimmune [...] followup with local GI. Await recommendation from [facility] hepatology Assessment & Plan (12/12/2020 6:56 [...] a since they are part of the [facility] system and can share medical records. Will make that referral Assessment & Plan (12/02/2020 10:30 AM CDT): Per GI note, unknown etiology of the cirrhosis/ascites. However, I have placed a call to Dr. Rodriguez, Attending GI at [facility] to discuss his recent labs, most importantly the positive MEL at 1:1280. I left a message on 11/20 and will await return call. I have concern for possible autoimmune hepatitis as the underlying cause. Patient appears to have increased ascites over the past few weeks. Increased pain. Increased orthopnea. Will check abdominal US at [place] [facility] (patient to schedule on own as order and phone number provided). If has acute increase in sxs, encouraged to present to [facility] ER for further evaluation so GI/heapatology group can evaluate. He would like to transfer care to [facility]. Tramadol a few times a day is managing pain. Monitor closely Dr. Gordon, supervisor rose grading at [facility] returned my call on Thursday, November 23. [...] PM CDT): Stressed importance of followup with supervisor rose grading. He states he has followup with Dr. Medrano at [facility] at the end of October and next week with Dr. Claros. He is having daily pain. Attempted to contact Dr Claros. Multiple messages left with staff and call not returned. Will await recommendations from Dr. Medrano. Discussed referral to [facility] supervisor rose grading --- patient has a family member in [...] diet Assessment & Plan (07/10/2022 12:44 PM SLAT GRADER): Not well controlled, has been on insulin [...] 05/22/20212021 Assessment & Plan (05/22/2021 10:54 AM SLAT GRADER): Obesity is unchanged. Discussed the patient's BMI. The BMI is above average. BMI management plan is completed. BMI Follow-up includes: nutrition counseling, exercise counseling and education provided. BMI 31.0-31.9,adult 05/22/2021 08/29/19 22 Assessment & Plan (05/22/2021 10:54 AM SLAT GRADER): Obesity is unchanged. Discussed the patient's BMI. [...] Encounters Date Type Department Care Team Description 09/26/2024 8:15 AM CDT Telemedicine [facility] Primary Care at [address] [place] [phone] Matt Mathews MD Screening PSA (prostate specific antigen) (Primary Dx); Need for hepatitis B screening test; Encounter for hepatitis C screening test for low risk patient; Nausea and vomiting in adult; Alcoholic cirrhosis of liver with ascites (HCC); Ascites due to alcoholic cirrhosis (HCC); Type 2 diabetes mellitus with hyperlipidemia (CMS/HCC) (HCC) 09/26/2024 Telephone [facility] [address] [place] [address] Matt Mathews MD Medical Question/Miscellaneo us 09/16/2024 Telephone [facility] [address] [place] [address] Mary Ann Armendariz, RN 09/15/2024 Telephone [facility] [address] [place] [address] Mary Ann Armendariz, RN 08/30/2024 Telephone [facility] [address] [place] [address] Mary Ann Armendariz, COREY 08/29/2024 8:00 AM CDT Office Visit [facility], Interventional Radiology [address] [address] [phone] Matt Dickinson MD Alcoholic cirrhosis of liver with ascites (HCC) (Primary Dx); Hypertension associated with diabetes (HCC); Bilateral pulmonary embolism (HCC); Other secondary thrombocytopenia; Gastrointestinal hemorrhage with melena; Portal hypertension (HCC); Morbid (severe) obesity due to excess calories (HCC) 08/26/2024 Orders Only [facility] Health Information Management [address] [place] [id number] Scanning, Provider 08/17/2024 Telephone [facility], Interventional Radiology [address] [address] Mary Ann Basurto, COREY Appointment 08/08/2024 Telephone [facility]iology [address] [place] [address] Mary Ann Armendariz, RN 08/05/2024 Results Follow-Up [facility] [address] [place] [address] Elan Hood MD Alcoholic cirrhosis of liver with ascites (HCC) (Primary Dx) 08/02/2024 10:43 AM SLAT GRADER - 08/02/2024 11:59 PM SLAT GRADER Hospital Encounter [facility] [address] [place] [address] Alcoholic cirrhosis of liver with ascites (HCC); Cirrhosis of liver with ascites, unspecified hepatic cirrhosis type (HCC); Ascites due to alcoholic cirrhosis (HCC); Hepatic encephalopathy (HCC) Discharge Disposition: Discharge to home or self care 08/02/2024 10:42 AM SLAT GRADER - 08/02/2024 11:59 PM SLAT GRADER Hospital Encounter [facility] Radiology Echo Lab [address] [address] Alcoholic cirrhosis of liver with ascites (HCC); Cirrhosis of liver with ascites, unspecified hepatic cirrhosis type (HCC); Ascites due to alcoholic cirrhosis (HCC); Hepatic encephalopathy (HCC) Discharge Disposition: Discharge to home or self care 07/01/2024 Telephone [facility] [address] [facility] [facility] 12[address] [place] [address] [place] [address] Nancy Christensen from Last 3 Months Immunizations Immunization Administration [...] History Relation Name Comments Arthritis Father Brian nicole Hypertension Father Brian nicole Arthritis Mother Naomi nicole Breast cancer Mother Naomi nicole Cancer Mother Naomi nicole Heart attack Mother Naomi nicole Heart disease Mother Naomi nicole Relation Name [...] on file Legal Sex Male 9:05 AM SLAT GRADER Gender Identity Male 06/09/2023 11:43 AM SLAT GRADER Sexual Orientation Straight 06/09/2023 11 :43 AM SLAT GRADER Obstetrics History Last Filed Vital Signs Vital Sign Reading Time Taken Comments Blood Pressure 94/60 06/23/2024 10:30 AM SLAT GRADER Pulse 80 06/23/2024 10:30 AM SLAT GRADER Temperature 37 C (98.6 F) 06/23/2024 10:30 AM SLAT GRADER Respiratory Rate 16 06/23/2024 10:30 AM SLAT GRADER Oxygen Saturation 94% 06/23/2024 10:30 AM SLAT GRADER Inhaled Oxygen Concentration - - Weight 65.8 kg (145 lb) 09/26/2024 8:06 AM CDT Height 165.1 cm (5' 5 ) 09/26/2024 8:06 AM CDT Body Mass Index 24.13 09/26/2024 8:06 AM CDT Plan of Treatment Health Maintenance [...] - 2023-2 5 season) 2024 02/27/2021, 02/01/2021 Depression Screening 03/16/2024 03/16/2023, 10/30/2022, 10/21/2022, Additional history exists Hemoglobin A1C 12/21/2024 06/23/2024, 11/0 06/2022, 08/15/2022, Additional history exists Influenza Vaccine (Season Ended) 2025 03/15/20, 06/29/2012 eGFR 06/23/2025 06/23/2024, 12/14, 09/11/2022, Additional history exists DTaP/Tdap/Td Vaccine (2 - Td or Tdap) 01/22/2027 01/22/2017 Colon Cancer Screening-Colonoscopy 03/12/20322021, 04/02/2020 Medical Devices Implanted Type Area Landscaper Device Identifier Shelf Expiration Date Model / Serial / Lot Rt Shoulder Rotator Cuff Repair [place] Suture Right: Shoulder Procedures Procedure Name Priority Date/Time Associated Diagnosis Comments SCAN - RADIOLOGY/IMAGING 08/26/2024 MRI ABDOMEN LIVER W WO CONTRAST Schedule Routine, Read Routine (OP Routine) 08/02/2024 12:30 PM SLAT GRADER Alcoholic cirrhosis of liver with ascites (HCC) Cirrhosis of liver with ascites, unspecified hepatic cirrhosis type (HCC) Ascites due to alcoholic cirrhosis (HCC) Hepatic encephalopathy (HCC) TRANSTHORACIC ECHO (TTE) COMPLETE W DOPPLER/CF WO CONTRAST Routine 08/02/2024 11:22 AM SLAT GRADER Alcoholic cirrhosis of liver with ascites (HCC) Cirrhosis of liver with ascites, unspecified hepatic cirrhosis type (HCC) Ascites due to alcoholic cirrhosis (HCC) Hepatic encephalopathy (HCC) EGD Routine 07/05/2024 1:14 PM SLAT GRADER EGFR Routine 06/23/2024 12:02 PM SLAT GRADER Alcoholic cirrhosis of liver with ascites (HCC) HEMOGLOBIN A1C Routine 06/23/2024 12:02 PM SLAT GRADER Alcoholic cirrhosis of liver with ascites (HCC) Type 2 diabetes mellitus without complication, with long-term current use of insulin (HCC) ALBUMIN CREATININE RATIO, URINE Routine 08/15/2022 POCT LIPID PANEL Routine 07/28/2022 9:31 AM SLAT GRADER Lipid screening HM COLONOSCOPY Routine 03/12/2022 PSA SCREEN Routine 10/19/2020 10:46 AM CDT Prostate cancer screening from Last 3 Months or Most Recently Relevant to Health Maintenance Results * SCAN - RADIOLOGY/IMAGING (08/26/2024) Anatomical Region Laterality Modality Other us Provider Scanning Final Result * MRI Abdomen Liver W WO Contrast (08/02/2024 12:30 PM SLAT GRADER) Anatomical Region Laterality Modality Body N/A Magnetic Resonan ce 08/02/2024 12:5 8 PM SLAT GRADER Impressions 08/02/2024 1:03 PM SLAT GRADER 1. Hepatic cirrhosis with portal hypertension including [...] Lulú Omer M.D. Narrative 08/02/2024 1:03 PM SLAT GRADER EXAMINATION: MAGNETIC RESONANCE IMAGING OF THE ABDOMEN [...] W DOPPLER/CF WO CONTRAST (08/02/2024 11:22 AM SLAT GRADER) Anatomical Region Laterality Modality Ultrasound 08/02/2024 10:4 4 AM SLAT GRADER Narrative 08/02/2024 1:29 PM SLAT GRADER [facility] Cardiac [place] [address] Transthoracic Echocardiographic Report Patient Name: MATT NICOLE E : 1970 (54y 6m) Gender: M Study Date: 08/02/2024 10:44:37 AM Ht(Inch): 65 Wt(Lb): 151.24 BSA: 1.77 Police Service Technician: EVON Location: [facility] Order Provider: ELAN HOOD Heart Rate: 64 BMI: 25.16 BP: 122 / 80 Quality: The study images were of technically good quality. Ref Provider: ELAN HOOD PROCEDURES: Echocardiographic Report: ([id number]) Transthoracic complete echo, 2D, spectral and tissue [...] By: Rasheeda Manzanares MD 08/02/2024 1:28:05 PM SLAT GRADER Electronically Signed By: Rasheeda Manzanares MD 08/02/2024 1:28:05 PM SLAT GRADER Procedure Note Rasheeda Manzanares MD - 08/02/2024 [facility] Cardiac [place] [address] Transthoracic Echocardiographic Report Patient Name: MATT NICOLE E : 1970 (54y 6m) Gender: M Study Date: 08/02/2024 10:44:37 AM Ht(Inch): 65 Wt(Lb): 151.24 BSA: 1.77 Police Service Technician: EVON Location: [facility] Order Provider: ELAN HOOD Heart Rate: 64 BMI: 25.16 BP: 122 / 80 Quality: The study images were oftechnically good quality. Ref Provider: ELAN HOOD PROCEDURES: Echocardiographic Report: ([id number]) Transthoracic complete echo, 2D,spectral and tissue Doppler, [...] LA Length 2C 5.82 cm MV Decel Ivzk908.71 msec [ 104.00 - 258.00 ] LA [...] By: Rasheeda Manzanares MD 08/02/2024 1:28:05 PM SLAT GRADER Electronically Signed By: Rasheeda Manzanares MD 08/02/2024 1:28:05 PM SLAT GRADER Elan Hood MD CV ECHO PROCEDURES Final Resul t * EGD -[facility] Medical Group (07/05/2024 1:14 PM SLAT GRADER) Anatomical Region Laterality Modality Other Historical Provider GI PROCEDURE ORDERABLES F inal Result * (ABNORMAL) eGFR (06/23/2024 12:02 PM SLAT GRADER) eGFR 55(L) >=60 mL/min/1. 73 m2 Comment: [...] reviewed 2021. Blood 06/23/2024 12:0 2 PM SLAT GRADER 06/23/2024 12:16 PM SLAT GRADER Result [facility] Elan Hood MD LAB BLOOD ORDERABLES Final Res ult Performing Organization Address [facility] Co de Phone Number [facility] [address] [employer] [email or web address] [address] * Hemoglobin A1c (06/23/2024 12:02 PM SLAT GRADER) [facility] Hgb A1C 5.0 4.0 - 5.6 % Estimated Average Glucose 97 mg/dL [facility] Comment: The ADA recommends reporting an estimated Average Glucose (eAG) with all Hemoglobin A1c results using the equation derived from a study of 507 normal and diabetic adults. Minority populations were underrepresented and children were not included. (Diabetes Care 31:4758-9678, 2008). The eAG is not equivalent to a fasting glucose. Blood 06/23/2024 12:0 2 PM SLAT GRADER 06/23/2024 12:16 PM SLAT GRADER Elan Hood MD LAB BLOOD ORDERABLES Final Res ult Performing Organization Address City/[facility]/ZIP Co de Phone Number ABRAN [facility] [address] [facility] The Venue Report [place], [place] [id number] * Albumin Creatinine Ratio, Urine (08/15/2022) Urine Matt Mathews MD LAB URINE ORDERABLES Amanda l Result * POCT lipid panel (07/28/2022 9:31 AM SLAT GRADER) Cholesterol, POC 231 mg/dL HDL, POC 42 mg/dL Triglycerides, POC 112 mg/dL LDL Cholesterol POC 168 mg/dL Chol/HDL Ratio, POC 4.0 Non-HDL Cholesterol, POC 190 mg/dL Cholesterol Total, POC 231 mg/dL Capillary blood 07/28/2022 9 :31 AM SLAT GRADER Anais Chowdary MD POINT OF CARE TEST O RDERABLES Edited Result - Final * HM COLONOSCOPY (03/12/2022) Enrique Felix MD HEALTH MAINTENANCE Final Result * PSA screen (10/19/2020 10:46 AM CDT) PSA 0.2 < OR = 4.0 ng/mL [facility] Comment: The total PSA value [...] 10/23/2020 1:27 PM CDT FASTING:YES FASTING: YES Result [facility] BORR[facility] LAB BLOOD ORDERABLES Final Result [facility] [id number] [phone] from Last 3 Months or Most Recently Relevant to Health Maintenance Insurance [facility] MEDICARE IDTX IDTX MEDICARE Care Teams Chief Operator Hydroformer Relationship Specialty Start Date End Date Matt Mathews MD [address] [place] [address] PCP - General Family Medicine 03/31/22 Dwight Nascimento MD Consulting Physician Internal Medicine 09/20/21
--- OUTSIDE RECORDS SUMMARY | 2024-09-28 12:31 | XMS_ITS | Encounter Summary ---
Author Organization [facility] Address [address] [place] [address] Phone Care Team Providers Care Employee Relations Director Name Role Phone Dwight Nascimento MD Unavailable Matt Mathews MD Primary Care Provider [phone] Encounter Details Date Type Department Care Team [...] on file Legal Sex Male 9:05 AM HOME SALES SERVICE PROFESSIONAL Gender Identity Male 06/09/2023 11:43 AM HOME SALES SERVICE PROFESSIONAL Sexual Orientation Straight 06/09/2023 11 :43 AM HOME SALES SERVICE PROFESSIONAL documented as of this encounter Plan of Treatment Not on file documented as of this encounter Procedures Procedure Name Priority Date/Time Associated Diagnosis Comments SCAN - LABS 04/08/2024 documented in this encounter Results * SCAN - LABS (04/08/2024) us Provider Scanning Final Result documented in this encounter Visit Diagnoses Not on filedocumented in this encounter Care Teams Employee Relations Director Relationship Specialty Start Date End Date Matt Mathews MD [address] [place] [address] PCP - General Family Medicine 03/31/22 Dwight Nascimento MD Consulting Physician Internal Medicine 09/20/21 documented as of this encounter
--- OUTSIDE RECORDS SUMMARY | 2024-09-28 12:31 | XMS_ITS | Clinical Summary ---
Author Organization [facility] hossein [facility] Address [address] [place] [address] Care Team Providers Care Sap Solution Manager Consultant Name Role Phone Matt Mathews MD Primary Care Provider [phone] Allergies Active Allergy Reactions Criticality Noted Date [...] times daily. 60 Tablet 04/22/2023 11:54 AM PHOTOGRAPHER APPRENTICE LITHOGRAPHIC 3 Active lactulose (ENULOSE) 10 gram/15 mL [...] on file Legal Sex Male 3:08 PM PHOTOGRAPHER APPRENTICE LITHOGRAPHIC Gender Identity Not on file Sexual Orientation Not on file Last Filed Vital Signs Vital Sign Reading Time Taken Comments Blood Pressure 140/80 04/22/2023 8:53 AM PHOTOGRAPHER APPRENTICE LITHOGRAPHIC Pulse 81 04/22/2023 8:53 AM PHOTOGRAPHER APPRENTICE LITHOGRAPHIC Temperature 36.6 C (97.9 F) 04/22/2023 7:35 AM PHOTOGRAPHER APPRENTICE LITHOGRAPHIC Respiratory Rate 18 04/22/2023 7:35 AM PHOTOGRAPHER APPRENTICE LITHOGRAPHIC Oxygen Saturation 98% 04/22/2023 7:35 AM PHOTOGRAPHER APPRENTICE LITHOGRAPHIC Inhaled Oxygen Concentration - - Weight 75.5 [...] % 04/15/2023 8:53 AM CDT [facility] EST. AVG GLUCOSE, A1C 103 mg/dL 04/15/2023 8:53 AM CDT [facility] [employer] [facility] Blood Venipuncture / Unknown 04/15/2023 5:36 AM CDT 04/15/2023 5:45 AM CDT Narrative [facility] - 04/15/2023 8:53 AM CDT HGB A1C INTERPRETATION NORMAL: <5.7% PRE-DIABETES: 5.7 - 6.4% DIABETES: 6.5% OR GREATER us Mary Ann BORRERO CHEMISTRY ORDERABLES Final Resu lt [facility]# [id number] [address] [place] [address] from Last 3 Months or Most Recently Relevant to Health Maintenance Insurance [facility] MEDICAID [facility] MEDICAID [facility] [employer] Commercial RX [employer] Commercial Advance Directives For more information, please contact: [phone] * NO CPR (In Event of Cardiopulmonary [...] 5:22 AM 04/15/2023 6:37 AM Care Teams Sap Solution Manager Consultant Relationship Specialty Start Date End Date Matt Mathews MD [address] [place] [address] PCP - General Family Practice 01/02/23
--- OUTSIDE RECORDS SUMMARY | 2024-09-28 12:31 | XMS_ITS | Referral Summary ---
Author Organization [facility] [address] Address [address] [place] [address] Care Team Providers Care Rn Palliative Care Name Role Phone Dwight Nascimento MD Unavailable Matt Mathews MD Primary Care Provider [phone] Encounters Date Type Department Care Team Description 09/26/2024 Telephone Family Physicians [facility] [address] [facility] [place] [address] Matt Mathews MD Medical Question/Miscellaneo us 09/26/2024 8:15 AM CDT Telemedicine [facility] Primary Care at [address] [place] [phone] Matt Mathews MD Screening PSA (prostate specific antigen) (Primary Dx); Need for hepatitis B screening test; Encounter for hepatitis C screening test for low risk patient; Nausea and vomiting in adult; Alcoholic cirrhosis of liver with ascites (HCC); Ascites due to alcoholic cirrhosis (HCC); Type 2 diabetes mellitus with hyperlipidemia (CMS/HCC) (HCC) 09/16/2024 Telephone [facility] [address] [place] [address] Mary Ann Armendariz, RN 09/15/2024 Telephone [facility] [address] [place] [address] Mary Ann Armendariz, RN 08/30/2024 Telephone [facility] [address] [place] [address] Mary Ann Armendariz, RN 08/29/2024 8:00 AM CDT Office Visit [facility] Radiology, Interventional Radiology [address] [phone] Matt Dickinson MD Alcoholic cirrhosis of liver with ascites (HCC) (Primary Dx); Hypertension associated with diabetes (HCC); Bilateral pulmonary embolism (HCC); Other secondary thrombocytopenia; Gastrointestinal hemorrhage with melena; Portal hypertension (HCC); Morbid (severe) obesity due to excess calories (HCC) 08/26/2024 Orders Only [facility] Health Information Management [address] [place] [address] Scanning, Provider 08/17/2024 Telephone [facility] Radiology, Interventional Radiology [address] [address] Mary Ann Basurto, RN Appointment 08/08/2024 Telephone [facility] [address] [place] [address] Mary Ann Armendariz, COREY 08/05/2024 Results Follow-Up [facility] Gastroenterology [address] [place] [address] Medical Office Building [address], [address] [place] [phone] Elan Hood MD Alcoholic cirrhosis of liver with ascites (HCC) (Primary Dx) 08/02/2024 10:43 AM OFFICE ADMIN - 08/02/2024 11:59 PM [facility] Hospital Encounter [facility] Imaging [address] [place] [address] Alcoholic cirrhosis of liver with ascites (HCC); Cirrhosis of liver with ascites, unspecified hepatic cirrhosis type (HCC); Ascites due to alcoholic cirrhosis (HCC); Hepatic encephalopathy (HCC) Discharge Disposition: Discharge to home or self care 08/02/2024 10:42 AM OFFICE ADMIN - 08/02/2024 11:59 PM [facility] Hospital Encounter [facility] Radiology Echo Lab [address] [place] [address] Alcoholic cirrhosis of liver with ascites (HCC); Cirrhosis of liver with ascites, unspecified hepatic cirrhosis type (HCC); Ascites due to alcoholic cirrhosis (HCC); Hepatic encephalopathy (HCC) Discharge Disposition: Discharge to home or self care 07/01/2024 Telephone [facility] Gastroenterology [address] [address] [place] [address] [place] [address] Higiniopadmini Nancy from Last 3 Months Allergies Active Allergy [...] spasms for muscle spasms 270 tablet 3 2025 Active empagliflozin (Jardiance) 10 mg tablet Take 1 tablet (10 mg total) by mouth daily 90 tablet 3 2025 Active furosemide (LASIX) 40 mg tablet Take 2 tablets (80 mg total) by mouth 2 (two) times a day 360 tablet 3 2025 Active midodrine (PROAMATINE) 2.5 mg tablet [...] 4 (four) times a day 120 tablet [address] (PROTONIX) 40 mg EC tablet Take 1 tablet (40 mg total) by mouth every 12 (twelve) hours 180 tablet 3 025 2025 Active pregabalin (LYRICA) 50 mg capsule Take 1 capsule (50 mg total) by mouth 2 (two) times a day 180 capsule 3 025 2025 Active spironolactone (ALDACTONE) 25 mg tabletIndications :Alcoholic cirrhosis of liver with ascites (HCC),Ascites due to alcoholic cirrhosis (HCC) Take 6 tablets (150 mg total) by mouth 2 (two) times a day 240 tablet 3 025 2025 Active traZODone (DESYREL) 100 mg tablet Take 2 tablets (200 mg total) by mouth nightly as needed for sleep 180 tablet 4 025 2025 Active morphine ER (MS CONTIN) 30 [...] times a day 360 tablet 3 023 04/14/ 2025 Discontinued(R eorder) potassium chloride ER (KLOR-CON) 20 [...] Discontinued(R eorder) oxyCODONE (ROXICODONE) 10 mg tablet 025 2024 Discontinued(R eorder) morphine ER (MS CONTIN) 60 mg 12 hr tablet 025 2024 Discontinued pregabalin (LYRICA) 50 mg capsule Take 1 capsule (50 mg total) by mouth 2 (two) times a day 2024 Discontinued(R eorder) morphine ER (JESICA) 30 mg 24 hr capsule Take 1 capsule (30 mg total) by mouth 2 (two) times a day 60 capsule 025 2024 Discontinued(R eorder) midodrine (PROAMATINE) 2.5 mg [...] mouth every 12 (twelve) hours 180 tablet 2024 Discontinued pregabalin (LYRICA) 50 mg capsule Take 1 capsule (50 mg total) by mouth 2 (two) times a day 180 capsule 2024 Discontinued spironolactone (ALDACTONE) 25 mg tabletIndications :Alcoholic cirrhosis of liver with ascites (HCC),Ascites due to alcoholic cirrhosis (HCC) Take 6 tablets (150 mg total) by mouth 2 (two) times a day 240 tablet 2024 Discontinued furosemide (LASIX) 40 mg tablet Take 2 tablets (80 mg total) by mouth 2 (two) times a day 360 tablet 2024 Discontinued empagliflozin (Jardiance) 10 mg tablet Take 1 tablet (10 mg total) by mouth daily 90 tablet 2024 Discontinued cyclobenzaprine (FLEXERIL) 10 mg tablet Take 1 tablet (10 mg total) by mouth 3 (three) times a day as needed for muscle spasms for muscle spasms 270 tablet 2024 Discontinued naloxone (NARCAN) 4 mg/actuation spray,non-aerosol Administer 1 spray into affected nostril(s) as needed for opioid reversal or respiratory depression Call 911. Administer a single spray in one nostril. Repeat every 3 minutes as needed if no or minimal response. 2 each 1 /14/ 2025 Discontinued morphine ER (JESICA) 30 mg 24 [...] 08/18/2022 Assessment & Plan (08/18/2022 1:51 PM OFFICE ADMIN): Patient reports decreased edema; low continues to [...] 04/29/2022 Assessment & Plan (04/29/2022 1:45 PM OFFICE ADMIN): To hospital for severe pain and diarrhea; [...] 09/22/2021 Assessment & Plan (07/10/2022 12:41 PM OFFICE ADMIN): Continues to be present, causing pain and [...] medication Assessment & Plan (07/29/2022 2:02 PM OFFICE ADMIN): Patient reports generally improved pain management, though decreased response to 5 mg of oxycodone; discussed with patient metabolism pathway limits use of hydrocodone due to risk of overdose and accumulation of metabolites Will increase oxycodone at next refill Assessment & Plan (06/13/2021 10:19 AM OFFICE ADMIN): Patient was advised given concern for an incarcerated umbilical hernia to report to the er now. He is going to [place]. He was asked to contact the office [...] outcome. Assessment & Plan (06/03/2021 6:29 PM OFFICE ADMIN): Patient continues to complain of jeovany-umbilical abdominal pain and is requesting continued refills of Tramadol. When asked how many he had left he states he ran out of them a week ago -- He was just given #12 on 05/13 upon discharge from [facility]. Today is 12/8 so if he ran [...] 7:11 PM CDT): Still awaiting records from [facility] regarding the Cardiology evaluation of the pericardial [...] MEL. Assessment & Plan (06/03/2021 6:10 PM OFFICE ADMIN): Positive MEL. Per Rheumatology evaluation there is [...] management Assessment & Plan (06/03/2021 6:10 PM OFFICE ADMIN): Chronic wedge compression fracture at T11. Patient [...] hx of HE/jaundice. MRCP 05/[address] [facility] with cirrhosis/hepatic steatosis, 1.8 cm arterially enhancing observation without washout in segment 5 (LR-3). Labs at [facility] with +ve MEL 1:1280 but -ve [...] requiring banding x 2 done locally at [facility] in [place], based on OSH records 1 [...] paracentesis Assessment & Plan (08/18/2022 1:49 PM OFFICE ADMIN): Not well controlled, patient had 5 L removed by paracentesis 1 week ago; is already refilled with ascitic fluid Patient to follow-up with cardiology on will likely need standing order for paracentesis Continue furosemide 80 mg b.i.d., spironolactone 100 mg daily Complicated by worsening peripheral edema Patient to follow-up with hepatology at end of week Assessment & Plan (08/04/2022 10:04 AM OFFICE ADMIN): Not well controlled; continues to have significant [...] site Assessment & Plan (07/29/2022 2:01 PM OFFICE ADMIN): Not well controlled, worsening; patient has recurrent [...] NAFLD Assessment & Plan (07/10/2022 12:43 PM OFFICE ADMIN): Admitted for EGD with banding, required 3 [...] 10:13 AM CDT): Continue per GI at [facility] for his cirrhosis. Stressed importance of following up on a regular basis due his progressive disease. Assessment & Plan (09/15/2021 8:39 PM CDT): Continue per hepatology at [facility] Assessment & Plan (06/03/2021 6:09 PM OFFICE ADMIN): Continue her GI at [facility], Dr. Jasso. He has been started on new medication to help decrease the ascites buildup. Encouraged him to follow their directions and keep his appointments. Strongly encouraged complete cessation of alcohol. I reviewed the lab results regarding alcohol use. He still adamant that he has not drank since his 51th birthday. Assessment & Plan (05/14/2021 12:07 PM OFFICE ADMIN): - MELD labs today, and repeat autoimmune [...] a since they are part of the [facility] system and can share medical records. Will make that referral Assessment & Plan (12/02/2020 10:30 AM CDT): Per GI note, unknown etiology of the cirrhosis/ascites. However, I have placed a call to Dr. Rodriguez, Attending GI at [facility] to discuss his recent labs, most importantly the positive MEL at 1:1280. I left a message on 11/20 and will await return call. I have concern for possible autoimmune hepatitis as the underlying cause. Patient appears to have increased ascites over the past few weeks. Increased pain. Increased orthopnea. Will check abdominal US at [facility] (patient to schedule on own as order and phone number provided). If has acute increase in sxs, encouraged to present to [facility] ER for further evaluation so GI/heapatology group can evaluate. He would like to transfer care to [facility]. Tramadol a few times a day is managing pain. Monitor closely Dr. Gordon, park services specialist at [facility] returned my call on Thursday, [...] PM CDT): Stressed importance of followup with park services specialist. He states he has followup with Dr. Medrano at [facility] at the end of October and next week with Dr. Claros. He is having daily pain. Attempted to contact Dr Claros. Multiple messages left with staff and call not returned. Will await recommendations from Dr. Medrano. Discussed referral to [facility] park services specialist --- patient has a family member in [...] diet Assessment & Plan (07/10/2022 12:44 PM OFFICE ADMIN): Not well controlled, has been on insulin [...] 05/22/20212021 Assessment & Plan (05/22/2021 10:54 AM OFFICE ADMIN): Obesity is unchanged. Discussed the patient's BMI. The BMI is above average. BMI management plan is completed. BMI Follow-up includes: nutrition counseling, exercise counseling and education provided. BMI 31.0-31.9,adult 05/22/2021 08/29/19 22 Assessment & Plan (05/22/2021 10:54 AM OFFICE ADMIN): Obesity is unchanged. Discussed the patient's BMI. [...] on file Legal Sex Male 9:05 AM OFFICE ADMIN Gender Identity Male 06/09/2023 11:43 AM OFFICE ADMIN Sexual Orientation Straight 06/09/2023 11 :43 AM OFFICE ADMIN Last Filed Vital Signs Vital Sign Reading Time Taken Comments Blood Pressure 94/60 06/23/2024 10:30 AM OFFICE ADMIN Pulse 80 06/23/2024 10:30 AM OFFICE ADMIN Temperature 37 C (98.6 F) 06/23/2024 10:30 AM OFFICE ADMIN Respiratory Rate 16 06/23/2024 10:30 AM OFFICE ADMIN Oxygen Saturation 94% 06/23/2024 10:30 AM OFFICE ADMIN Inhaled Oxygen Concentration - - Weight 65.8 kg (145 lb) 09/26/2024 8:06 AM CDT Height 165.1 cm (5' 5 ) 09/26/2024 8:06 AM CDT Body Mass Index 24.13 09/26/2024 8:06 AM CDT Plan of Treatment Not on file Medical Devices Implanted Type Area Turntable Man Device Identifier Shelf Expiration Date Model / Serial / Lot Rt Shoulder Rotator Cuff Repair [place] Suture Right: Shoulder Procedures Procedure Name Priority Date/Time Associated Diagnosis Comments SCAN - RADIOLOGY/IMAGING 08/26/2024 MRI ABDOMEN LIVER W WO CONTRAST Schedule Routine, Read Routine (OP Routine) 08/02/2024 12:30 PM OFFICE ADMIN Alcoholic cirrhosis of liver with ascites (HCC) Cirrhosis of liver with ascites, unspecified hepatic cirrhosis type (HCC) Ascites due to alcoholic cirrhosis (HCC) Hepatic encephalopathy (HCC) TRANSTHORACIC ECHO (TTE) COMPLETE W DOPPLER/CF WO CONTRAST Routine 08/02/2024 11:22 AM OFFICE ADMIN Alcoholic cirrhosis of liver with ascites (HCC) Cirrhosis of liver with ascites, unspecified hepatic cirrhosis type (HCC) Ascites due to alcoholic cirrhosis (HCC) Hepatic encephalopathy (HCC) EGD Routine 07/05/2024 1:14 PM OFFICE ADMIN EGFR Routine 06/23/2024 12:02 PM OFFICE ADMIN Alcoholic cirrhosis of liver with ascites (HCC) HEMOGLOBIN A1C Routine 06/23/2024 12:02 PM OFFICE ADMIN Alcoholic cirrhosis of liver with ascites (HCC) Type 2 diabetes mellitus without complication, with long-term current use of insulin (HCC) ALBUMIN CREATININE RATIO, URINE Routine 08/15/2022 POCT LIPID PANEL Routine 07/28/2022 9:31 AM OFFICE ADMIN Lipid screening HM COLONOSCOPY Routine 03/12/2022 PSA SCREEN Routine 10/19/2020 10:46 AM CDT Prostate cancer screening from Last 3 Months or Most Recently Relevant to Health Maintenance Results * SCAN - RADIOLOGY/IMAGING (08/26/2024) Anatomical Region Laterality Modality Other us Provider Scanning Final Result * MRI Abdomen Liver W WO Contrast (08/02/2024 12:30 PM OFFICE ADMIN) Anatomical Region Laterality Modality Body N/A Magnetic Resonan ce 08/02/2024 12:5 8 PM OFFICE ADMIN Impressions 08/02/2024 1:03 PM OFFICE ADMIN 1. Hepatic cirrhosis with portal hypertension including [...] Lulú Omer M.D. Narrative 08/02/2024 1:03 PM OFFICE ADMIN EXAMINATION: MAGNETIC RESONANCE IMAGING OF THE ABDOMEN [...] it. Electronically signed by: Lulú Omer M.D. Elan Hood MD [place] MRI PROCEDURES Final Resul t * TRANSTHORACIC ECHO (TTE) COMPLETE W DOPPLER/CF WO CONTRAST (08/02/2024 11:22 AM OFFICE ADMIN) Anatomical Region Laterality Modality Ultrasound 08/02/2024 10:4 4 AM OFFICE ADMIN Narrative 08/02/2024 1:29 PM OFFICE ADMIN [facility] [place] [address] Transthoracic Echocardiographic Report Patient Name: MATT NICOLE E : 1970 (54y 6m) Gender: M Study Date: 08/02/2024 10:44:37 AM Ht(Inch): 65 Wt(Lb): 151.24 BSA: 1.77 Baseboard Heating Installer: EVON Location: [facility] Order Provider: ELAN HOOD Heart Rate: 64 BMI: 25.16 BP: 122 / 80 Quality: The study images were of technically good quality. Ref Provider: ELAN HOOD PROCEDURES: Echocardiographic Report: ([id number]) Transthoracic complete echo, 2D, spectral and tissue [...] By: Rasheeda Manzanares MD 08/02/2024 1:28:05 PM OFFICE ADMIN Electronically Signed By: Rasheeda Manzanares MD 08/02/2024 1:28:05 PM OFFICE ADMIN Procedure Note Rasheeda Manzanares MD - 08/02/2024 [facility] [place] [place] [address] [place] [address] Transthoracic Echocardiographic Report Patient Name: MATT NICOLE E : 1970 (54y 6m) Gender: M Study Date: 08/02/2024 10:44:37 AM Ht(Inch): 65 Wt(Lb): 151.24 BSA: 1.77 Baseboard Heating Installer: EVON Location: [facility] Order Provider: ELAN HOOD Heart Rate: 64 BMI: 25.16 BP: 122 / 80 Quality: The study images were oftechnically good quality. Ref Provider: ELAN HOOD PROCEDURES: Echocardiographic Report: ([id number]) Transthoracic complete echo, 2D,spectral and tissue Doppler, [...] LA Length 2C 5.82 cm MV Decel [id number] msec [ 104.00 - 258.00 ] LA [...] By: Rasheeda Manzanares MD 08/02/2024 1:28:05 PM OFFICE ADMIN Electronically Signed By: Rasheeda Manzanares MD 08/02/2024 1:28:05 PM OFFICE ADMIN Elan Hood MD CV ECHO PROCEDURES Final Resul t * EGD -[facility] Medical Group (07/05/2024 1:14 PM OFFICE ADMIN) Anatomical Region Laterality Modality Other Historical Provider GI PROCEDURE ORDERABLES F inal Result * (ABNORMAL) eGFR (06/23/2024 12:02 PM OFFICE ADMIN) eGFR 55(L) >=60 mL/min/1. 73 m2 Comment: [...] reviewed 2021. Blood 06/23/2024 12:0 2 PM OFFICE ADMIN 06/23/2024 12:16 PM OFFICE ADMIN Elan Hood MD LAB BLOOD ORDERABLES Final Res ult Performing Organization Address [facility] de Phone Number [facility] [address] [facility] [place] [address] * Hemoglobin A1c (06/23/2024 12:02 PM OFFICE ADMIN) Hgb A1C 5.0 4.0 - 5.6 % Estimated Average Glucose 97 mg/dL [facility] Comment: The ADA recommends reporting an estimated Average Glucose (eAG) with all Hemoglobin A1c results using the equation derived from a study of 507 normal and diabetic adults. Minority populations were underrepresented and children were not included. (Diabetes Care 31:0212-7848, 2008). The eAG is not equivalent to a fasting glucose. Blood 06/23/2024 12:0 2 PM OFFICE ADMIN 06/23/2024 12:16 PM OFFICE ADMIN Elan Hood MD LAB BLOOD ORDERABLES Final Res ult Performing Organization Address [facility] de Phone Number [facility] [address] [facility] [place] [address] * Albumin Creatinine Ratio, Urine (08/15/2022) Urine Matt Mathews MD LAB URINE ORDERABLES Amanda l Result * POCT lipid panel (07/28/2022 9:31 AM OFFICE ADMIN) Cholesterol, POC 231 mg/dL HDL, POC 42 mg/dL Triglycerides, POC 112 mg/dL LDL Cholesterol POC 168 mg/dL Chol/HDL Ratio, POC 4.0 Non-HDL Cholesterol, POC 190 mg/dL Cholesterol Total, POC 231 mg/dL Capillary blood 07/28/2022 9 :31 AM OFFICE ADMIN Anais Chowdary MD POINT OF CARE TEST O RDERABLES Edited Result - Final * HM COLONOSCOPY (03/12/2022) Historical Provider HEALTH MAINTENANCE Final Result * PSA screen (10/19/2020 10:46 AM CDT) PSA 0.2 < OR = 4.0 ng/mL [facility] Comment: The total PSA value from this assay system is standardized against the WHO standard. The test result will be approximately 20% lower when compared to the equimolar-standardized total PSA (Jass Dayton). Comparison of serial PSA results should be [...] LAB BLOOD ORDERABLES Final Result [facility] [address] [address] [facility] [place] [address] from Last 3 Months or Most Recently Relevant to Health Maintenance Insurance [facility] MEDICARE [facility] [employer] MEDICARE [facility] Address: [address] [address] [place] [address] Care Teams Rn Palliative Care Relationship Specialty Start Date End Date Matt Mathews MD [address] [place] [address] PCP - General Family Medicine 03/31/22 Dwight Nascimento MD Consulting Physician Internal Medicine 09/20/21
--- OUTSIDE RECORDS SUMMARY | 2024-09-28 12:31 | XMS_ITS | Clinical Summary ---
Author Organization [facility] Address [address] [place] [address] Care Team Providers Care Health Safety Specialist Name Role Phone Fidel Camejo MD Primary Care Provider [phone] Source Comments [facility],non-owned Affiliates and Associated Physician Practices is amultiple site organization consisting of ambulatory clinics and hospital sitesin [place], [place], [place] and [place]. This disclosure is being madepursuant to the Care Everywhere program and may not contain all information available regarding this patient. Last updated 18.[facility] Allergies No known active allergies Medications * Be aware that medications may not be up to date on this document. Alwaysverify current medications with the patient. ibuprofen (MOTRIN) 800 MG tablet Take 1 tablet by mouth every 6 hours as needed for Pain 60 tablet 8 Active Additional Information Patient taking differently:800 mg Oral3 TIMES DAILY, Reported on 07/12/2020 Acetaminophen (TYLENOL PO) Take 500 mg by mouth 4 times daily Active ciprofloxacin (CIPRO) 500 MG tablet TK 1 T PO Q 12 H 0 Active omeprazole (PRILOSEC) 10 MG capsule TK 1 C PO QD PRN 0 Active ondansetron, disintegrating, (ZOFRAN ODT) 4 MG tablet DIS 1 T ON THE TONGUE Q 6 H PRF NAUSEA OR VOM 0 Active lidocaine (LIDODERM) 5 % patch Apply 1 (one) patch to skin 2 times daily as needed 30 patch 2 1 Active furosemide (LASIX) 40 MG tablet Take 1 (one) tablet by mouth once daily 30 tablet 2 1 Active spironolactone (ALDACTONE) 50 MG tablet Take 1 (one) tablet by mouth once daily 30 tablet 2 1 Active HYDROcodone-maura taminophen (NORCO) 5-325 MG tablet 1 Active pantoprazole EC (PROTONIX) 40 MG tablet Take 40 mg by mouth every 12 hours 1 Active nadolol (CORGARD) 20 MG tablet Take [...] at Not on file Legal Sex Male 9:02 AM HOUSEPERSON Gender Identity Not on file Sexual Orientation Not on file Last Filed Vital Signs Vital Sign Reading Time Taken Comments Blood Pressure 174/103 11/01/2020 11:37 AM CDT Pulse 89 11/01/2020 11:37 AM CDT Temperature 36.6 C (97.9 F) 07/12/2020 10:23 AM HOUSEPERSON Respiratory Rate 18 11/01/2020 11:37 AM CDT Oxygen Saturation 100% 11/01/2020 11:37 AM CDT Inhaled Oxygen Concentration - - Weight 81.2 kg (179 lb) 11/01/2020 11:37 AM CDT Height 165.1 cm (5' 5 ) 07/12/2020 10:23 AM HOUSEPERSON Body Mass Index 29.79 07/12/2020 10:23 AM HOUSEPERSON Plan of Treatment Health Maintenance Due Date [...] 50+ (1 of 2 - PCV) 1990 ZOSTER VACCINE (1 of 2) 2021 SCREENING FOR DIABETES 07/12/2023 , 04/04/2020, 11/17/2018, Additional history exists COVID-19 VACCINE ( - season) 2024 DEPRESSION SCREENING 06/15/2024 INFLUENZA VACCINE (Season Ended) 2025 03/15/2022, 06/29/2012 LIPID TESTING 07/28/2027 07/28/2022, 11/09/2012 HEPATITIS C SCREENING Completed 04/04/2020 HIB VACCINE [...] Management General On track( 021 10:36 AM HOUSEPERSON) Jose Juan Prince, RN Note: Expected end date: Interventions: Take all medications as prescribed Let your doctor know right away about any changes in your medications Make sure to request a refill of your medication at least one week prior to your last dose Procedures Procedure Name Priority Date/Time Associated Diagnosis Comments COMPREHENSIVE METABOLIC PANEL Routine 07/12/2020 12:54 PM HOUSEPERSON Abdominal pain, unspecified abdominal location Chronic diarrhea HEPATITIS C ANTIBODY Routine 04/04/2020 1:28 PM CDT RUQ pain Abnormal finding on imaging of liver LIPID PROFILE Routine 11/09/2012 12:10 AM CDT from Last 3 Months or Most Recently Relevant to Health Maintenance Results * (ABNORMAL) COMPREHENSIVE METABOLIC PANEL (07/12/2020 12:54 PM HOUSEPERSON) BUN 10 7 - 26 mg/dL 07/12/2020 2:12 PM [facility] Creatinine 0.6 0.6 - 1.2 mg/dL 07/12/2020 2:12 PM [facility] Sodium 138 136 - 145 mmol/L 07/12/2020 2:12 PM [facility] Potassium 4.2 3.5 - 4.5 mmol/L 07/12/2020 2:12 PM [facility] Chloride 103 98 - 107 mmol/L 07/12/2020 2:12 PM [facility] CO2 26 22 - 29 mmol/L 07/12/2020 2:12 PM [facility] Glucose 133(H) 70 - 115 mg/dL 07/12/2020 2:12 PM [facility] Calcium 9.1 8.4 - 10.2 mg/dL 07/12/2020 2:12 PM [facility] Protein Total 6.9 6.0 - 8.3 g/dL 07/12/2020 2:12 PM [facility] Albumin 3.8 3.4 - 5.0 g/dL [...] Lab Venipuncture / Unknown 07/12/2020 12:54 PM HOUSEPERSON 07/12/2020 1:20 PM [facility] Billie Medrano MD LAB - CHEMISTRY ORDERABLES Fi nal Result Performing Organization Address [facility] Co de Phone Number [address] [address], [place] [phone] * HEPATITIS C ANTIBODY (04/04/2020 1:28 PM CDT) Pathologist [facility] Hepatitis C Antibody Non-react cathi Non-reac tive 04/04/2020 3:27 PM CDT [facility] Comment:Hepatitis C Antibody screen indicates [...] CDT Billie Medrano MD LAB - CHEMISTRY ORDERABLES Fi nal Result Performing Organization Address [facility]/ZIP Co de Phone Number [address] [address], [place] [phone] * (ABNORMAL) LIPID PROFILE (11/09/2012 12:10 AM CDT) Pathologist [facility] Cholesterol Total 199 <200 mg/dL [facility] HDL 56 > OR = 40 mg/dL [facility] Comment: ATP III classification of HDL cholesterol: <40 mg/dL Low; considered a major risk factor >60 mg/dL High; considered a negative risk factor Triglycerides 339(H) <150 mg/dL [facility] Comment: ATP III classification of Triglycerides: < 150 mg/dL Normal triglycerides 150-199 mg/dL Borderline-high triglycerides 200-400 mg/dL High triglycerides > 500 mg/dL Very high triglycerides LDL Calculated 75 0 - 100 mg/dL [facility] Comment: ATP III classification of LDL cholesterol: <100 mg/dL Optimal 100-129 Near optimal/above optimal 130-159 Borderline high 160-189 High >190 Very high 11/09/2012 12:1 0 AM CDT 11/09/2012 12:31 AM CDT Narrative [facility] - 11/09/2012 12:19 PM CDT IS PATIENT ON HEPARIN? (Y OR N) N Paulo Nuñez MD LAB - CHEMISTRY ORDERABLES F inal Result [facility] [address] [phone] from Last 3 Months or Most Recently Relevant to Health Maintenance Insurance [address] [facility] Advance Directives * Full Code (Latest Code Status on File) Date Activated Date Inactivated Comments 11/16/2018 3:08 AM 11/17/2018 7:07 PM Care Teams Health Safety Specialist Relationship Specialty Start Date End Date Fidel Camejo MD [address] [address] PCP - General Family Medicine 04/10/24
--- OUTSIDE RECORDS SUMMARY | 2024-09-28 12:31 | XMS_ITS | Encounter Summary ---
Author Organization [facility] Address [address] [place] [address] Care Team Providers Care Emt I/99 Name Role Phone Dwight Nascimento MD Unavailable Matt Mathews MD Primary Care Provider [phone] Reason for Visit * Reason Onset Date Comments Medical Question/Miscellaneous 09/26/2024 Encounter Details Date Type Department Care Team (Late st Contact Info) Description 09/26/2024 Telephone [facility] [address] [address] Matt Mathews MD [address] [place] [id number] Medical Question/Miscellaneous Social History Tobacco Use Types Packs/Day Years Used Date Smoking Tobacco: Every Day Cigarettes 0.3 15 Started: 12/12/2005; Last attempted to quit: 12/12/2020 Smokeless Tobacco: Never AUDIT-C Answer Date [...] on file Legal Sex Male 9:05 AM PRECISION HONER Gender Identity Male 06/09/2023 11:43 AM PRECISION HONER Sexual Orientation Straight 06/09/2023 11 :43 AM PRECISION HONER documented as of this encounter Miscellaneous Notes * Telephone Encounter - Anita Kelly MA - 09/26/2024 11:35 AM CDT Spoke with patient and then called pharmacy and let them know ok to fill, since patient is leaving for [place] on Thursday, Thanks * Telephone Encounter - Damaris Forde - 09/26/2024 10:44 AM CDT Medical Question/Miscellaneous Caller???s Concern: called to ask to speak to provider or nurse about getting his medication filledbefore since he is leaving for [place] on Thursday early in the morning. He said his rx will be gone while he is there and is wanting only to speak with them. Please advise Does message need to be routed? Yes-Action Needed documented in this encounter Plan of Treatment Not on file documented as of this encounter Visit Diagnoses Not on filedocumented in this encounter Care Teams Emt I/99 Relationship Specialty Start Date End Date Matt Mathews MD [address] [place] [address] PCP - General Family Medicine 03/31/22 Dwight Nascimento MD Consulting Physician Internal Medicine 09/20/21 documented as of this encounter
--- OUTSIDE RECORDS SUMMARY | 2024-09-28 12:31 | XMS_ITS | Encounter Summary ---
Author Organization [facility] Address [address] [place] [address] Phone Care Team Providers Care Installation And Repair Technician Name Role Phone Dwight Nascimento MD Unavailable Matt Mathews MD Primary Care Provider [phone] Encounter Details Date Type Department Care Team [...] on file Legal Sex Male 9:05 AM CORRECTIONAL COOK Gender Identity Male 06/09/2023 11:43 AM CORRECTIONAL COOK Sexual Orientation Straight 06/09/2023 11 :43 AM CORRECTIONAL COOK documented as of this encounter Plan of Treatment Not on file documented as of this encounter Procedures Procedure Name Priority Date/Time Associated Diagnosis Comments SCAN - LABS 04/11/2024 documented in this encounter Results * SCAN - LABS (04/11/2024) us Provider Scanning Final Result documented in this encounter Visit Diagnoses Not on filedocumented in this encounter Care Teams Installation And Repair Technician Relationship Specialty Start Date End Date Matt Mathews MD [address] [place] [address] PCP - General Family Medicine 03/31/22 Dwight Nascimento MD Consulting Physician Internal Medicine 09/20/21 documented as of this encounter
== END 2024-09-28 11:05 | disposition home or self-care (01) ==
LOC: ANHIMG 11:06
PROVIDERS: Radiology Diagnostic Radiology; PCP Hospitalist; Visit Provider Nurse Practitioner Family
DX: R10.9 Unspecified abdominal pain (principal); R19.00 Intra-abdominal and pelvic swelling, mass and lump, unspecified site
CPT/HCPCS: 36415; 49083; 85049; 85055; 85610